=== PATIENT | male | born 1940 | race Caucasian/White ===

== ENCOUNTER → 2019-04-26 | Outpatient (CLI) | payer MEDICARE, SELFPAY ==
--- NOTE | 2019-04-26 14:32 | CT_ITS ---
We are attempting to reach an attending provider to discuss findings. An addendum with communication details will be sent when the communication is complete. STUDY: CTA CHEST REASON FOR EXAM: Male, 79 years old. PAIN LEFT ARM, COUGH X2 DAYS RADIATION DOSAGE (If Supplied By Facility): CTDIvol = ( 10.72 ) mGy, DLP = ( 384.05 ) mGycm TECHNIQUE: The examination was performed with the intravenous administration of 100CC ISOVUE 370. Post-processing of the angiographic images was performed, with multiplanar reformation and 3D reconstruction. Individualized dose optimization techniques were used for this CT. COMPARISON: None. FINDINGS: Normal enhancement of the main pulmonary artery and right and left pulmonary arteries. Normal enhancement of the bilateral peripheral pulmonary arteries. There is no demonstrated pulmonary embolism. There is atherosclerotic calcification of the aortic arch with tortuosity. There is no demonstrated aortic dissection. There is mild cardiac enlargement. There are multiple small and reactive AP window lymph nodes. This measures up to 1.2 cm. There is a right side precarinal lymph node measuring 1.0 cm. There is calcification in the left hilum. There are patchy left upper lobe infiltrates groundglass opacities. There is a small focus of consolidation in the lingula. There is consolidation in the left lower lobe. There is focal consolidation in the right lung base. There is thickening of the adjacent bronchial structures. Normal pleura. Normal chest wall structures. There are degenerative changes of thoracic spine. There is a hiatal hernia demonstrated measuring 1.[address]/CTA Chest W/WO Contrast IMPRESSION: No demonstrated pulmonary embolism or arterial dissection. Multifocal pneumonia. Reactive-appearing lymphadenopathy. Given the peribronchial inflammatory change and some areas of inflammatory plugging cannot exclude aspiration. Electronically Signed: Ally Munguia MD at 17:03 EST Tel , Service support ,
== END | disposition home or self-care (01) ==
LOC: CT 14:28
PROVIDERS: PCP Internal Medicine; Referring Provider Nurse Practitioner; Visit Provider Nurse Practitioner
DX: R79.1 Abnormal coagulation profile (principal); R05 Cough
CPT/HCPCS: 71046; 71275; Q9967

== ENCOUNTER → 2019-04-26 | Outpatient (CLI) | payer MEDICARE, SELFPAY ==
--- NOTE | 2019-04-26 13:05 | RAD_ITS ---
STUDY: X-RAY CHEST REASON FOR EXAM: Male, 79 years old. COUGH X 3 DAYS TECHNIQUE: PA and lateral views of the chest. COMPARISON: None. FINDINGS: There are patchy opacities in the right midlung zone and in the left lower lobe. There is no demonstrated pleural abnormality. Normal size heart. Normal mediastinum and kailey. Normal visualized pulmonary arteries. Normal visualized aortic arch and descending thoracic aorta. There are diffuse degenerative changes of the visualized thoracic spine. Normal visualized ribs, clavicles, and shoulders. There is no demonstrated abnormality of the visualized soft tissue structures of the upper abdomen. RAD/Chest PA and Lateral IMPRESSION: Findings suspicious for left mid lung zone and left lower lobe infiltrates suspicious for pneumonia. Electronically Signed: Ally Munguia MD at 14:43 EST Tel , Service support ,
== END | disposition home or self-care (01) ==
LOC: HPRAD 13:01
PROVIDERS: PCP Internal Medicine; Referring Provider Nurse Practitioner; Visit Provider Nurse Practitioner
DX: R05 Cough (principal)
CPT/HCPCS: 71046

== ENCOUNTER → 2019-04-26 | Outpatient (CLI) | payer MEDICARE, SELFPAY ==
[2019-04-26 13:18] LABS: CPK Total, Creatine Kinase 54 U/L (39-308)
[2019-04-26 13:36] LABS: BNP,B-Type NATRIURETIC PEPTIDE 8.9 pg/mL (0-100)
[2019-04-26 13:46] LABS: D-Dimer Quantitative (DVT/PE) 1.21 FEU/ug/m (0.27-0.49)
[2019-04-26 14:56] LABS: CREATININE FINGERSTICK 0.7 mg/dL (0.70-1.30); EGFR FINGERSTICK > 60.0000 mL/min (>60)
== END | disposition home or self-care (01) ==
PROVIDERS: PCP Internal Medicine; Referring Provider Nurse Practitioner; Visit Provider Nurse Practitioner
DX: M79.602 Pain in left arm (principal); R05 Cough
CPT/HCPCS: 82550; 83880; 84484; 85379

== ENCOUNTER 2019-05-19 13:41 | Outpatient (RCR) | payer MEDICARE, SELFPAY ==
--- NOTE | 2019-05-20 10:06 | HP.PTEVAL_ITS ---
Patient's Visit Information BOBY VAN is a 79 year old M referred to Physical Therapy by Lou Bales DO with a diagnosis of L lateral epidcondylitis. Date of Evaluation: 05/19/19 Physical Therapist: Wilfrido Malave DPT - Visit Plan Frequency: 1x/Week Duration: 4 Weeks Plan: I gave patient some stretching, DFM and eccentric exercises for HEP. PT. desires to trial on his own to see if he can self manage. He is to come back in if his symptoms start to come back. I educated him on activity management and use of bracing as needed. I aksed for a few visits in case his symptoms were to come back, we would be able to address as needed. - Subjective Findings: Pt. is here today for his initial evaluation with diagnosis of L lateral epicondylitis. Pt. reports no mech of injury, but has been having pain for ~1 month now. Pt. reports using many modalities to attempt to reduce symptoms including heat, ice, injection, bracing, analgesic creams, but ultimately he has started to CBD oil (roll on) and reports this has really helped. Pt. reports minimal pain 1/10 currently. He is R hand dominant. 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 Pt. denies N/T, no shoulder pain, no radiating pain. Pt. has most of his pain at is L lateral elbow, greatest wtih lifting, holding objects. He reports he has resulted to avoiding use of his L arm. Pt. is having some trouble sleeping, but has also improved. Pt. reports he was unsure if was even going to come, due to feeling better. Pt. is hopeful to reduce symptoms in order to get back to all recreational activities without limitations. - Pain L lateral elbow Pain Intensity (Out of 10): 1 Pain Intensity Range: 0, 4 - Objective POSTURE: Pt. has good posture in stance and sitting. Normal elbow positoning. PALPATION: Pt. was tender to palpation of L wrist/finger extensor group, and lateral epicondyl. No pain else where. NEURO: Normal throughout BUEs. ROM: PT has tightness with terminal elbow extension, tight wrist extensors, tight wrist flexors. 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 Pt. has 5/5 wrist and elbow strenght on R side, 5/5 throughout LUE, except wrist extension 5-/5 mild increase NW. - Special Tests L Elbow Flexion Test - Cubital Tunnel: Negative L Elbow Tinels - Ulnar n.: Positive L Elbow Valgus Stress Test - MCL Instability: Negative L Elbow Varus Stress Stest - MCL Instability: Negative L Elbow Lat Epiconylitis - as named: Positive - Goals Goal 1:: LTG: Pt. to be I with HEP. Goal Time Frame: 4-6 Weeks Goal 2:: STG: Pt. to have no pain with lifting and gripping household objects Goal Time Frame: 2-4 Weeks Goal 3:: STG: Pt. to sleep throughout the night without increase in symptoms. Goal Time Frame: 2-4 Weeks Goal 4:: LTG: Pt. to complete all ADLs without increase in symptoms. Goal Time Frame: 4-6 Weeks Goal 5:: LTG: pt. to have increased wrist extensors by 1/2 grade Goal Time Frame: 4-6 Weeks - Rehabilitation Potential Physical Therapy Diagnosis: Pt. has signs and symptoms consistent with L lateral epidcondylitis. Pt. is doing better with bracing and use of CBD oil. Pt. does have some soreness and tightness of his L lateral elbow. I gave him some exercises to use to work on flexibility and some eccentric strengthening. Pt. plans to work on his own for a 1-2 weeks to see if he can self progress/manage. Pt. to follow up with PT if unable to do so Rehabilitation Potential: Excellent - Anticipated Interventions Patient/Client Instruction: Educate patient on: Condition, Plan of Care, Risk Factors, Benefits of Fitness Program For the Purpose of:: To improve decision making, To facilitate caregiver knowledge, To improve self management, To prevent re-injury, To improve ability to perform tasks related to life management, To improve tolerance to ADL's Therapeutic Exercise to Include: Strength training, Power training, Postural training, Flexibilty training For the Purpose of:: To decrease pain, To decrease swelling/inflammation, To increase ROM Manual Therapy Techniques to Include: Mobilization, Functional dry needling, Soft tissue mobilization For the Purpose of:: To decrease pain, To decrease swelling/inflammation, To improve nutrient delivery to tissue Ultrasound (thermal/non thermal): Yes For the Purpose of:: To improve nutrient delivery to tissue, To increase oxygenation perfusion, To improve muscle performance and motor function Thank you for the opportunity to evaluate your patient. For Medicare and Medicare HMO plans, please review the plan of care and approve it. It will need to be FAXED BACK to us at [phone] for Medicare purposes. For Medicare only, by signing this I certify the plan of care. Please let me know if there are questions or concerns regarding this plan of care. Physician Signature: Date:
--- NOTE | 2019-10-27 07:34 | HP.PTDCNRP_ITS ---
BOBY VAN was seen in my office for initial evaluation on 05/19/19. The following Plan of Care was established for this patient: Initial Frequency: 1x/Week Initial Duration: 4 Weeks Patient/Client Instruction: Educate patient on: Condition, Plan of Care, Risk Factors, Benefits of Fitness Program For the Purpose of:: To improve decision making, To facilitate caregiver knowledge, To improve self management, To prevent re-injury, To improve ability to perform tasks related to life management, To improve tolerance to ADL's Therapeutic Exercise to Include: Strength training, Power training, Postural training, Flexibilty training For the Purpose of:: To decrease pain, To decrease swelling/inflammation, To increase ROM Manual Therapy Techniques to Include: Mobilization, Functional dry needling, So ft tissue mobilization For the Purpose of:: To decrease pain, To decrease swelling/inflammation, To improve nutrient delivery to tissue Ultrasound (thermal/non thermal): Yes For the Purpose of:: To improve nutrient delivery to tissue, To increase oxygenation perfusion, To improve muscle performance and motor function This patient was last seen in our office 05/19/19. Pertinent comments regarding their Physical therapy will appear below: Pt. was seen for his initial evaluation. He came for his initial evaluation and has not been seen since. Pt. will be DC from PT at this point in time. At this point I will be discontinuing this patient from physical therapy. I would be happy to see this patient again in the future if found appropriate by the physician. Thank you! LETICIA MinayaT
== END 2019-05-19 19:00 | disposition home or self-care (01) ==
LOC: PT 13:41
PROVIDERS: PCP Internal Medicine; Referring Provider Internal Medicine; Visit Provider Internal Medicine
DX: M77.12 Lateral epicondylitis, left elbow (principal)
CPT/HCPCS: 97110; 97161

== ENCOUNTER 2020-04-19 14:13 | Outpatient (RCR) | payer MEDICARE, SELFPAY ==
[2014-05-05 14:40] VITALS: BMI 24.3
== END 2020-04-19 23:59 ==
LOC: IMMUN 14:13
PROVIDERS: PCP Internal Medicine; Visit Provider Family Medicine
DX: Z23 Encounter for immunization (principal)
CPT/HCPCS: 0011A; 0012A; 91301

== ENCOUNTER 2021-05-31 10:50 | Outpatient (CLI) | payer MEDICARE, SELFPAY ==
--- NOTE | 2021-05-31 10:51 | MRI_ITS ---
STUDY: MRI CERVICAL SPINE WITHOUT CONTRAST REASON FOR EXAM: Male, 81 years old. Pain TECHNIQUE: Standardized fat and water weighted pulse sequences were obtained in the sagittal and axial planes. COMPARISON: None FINDINGS: Normal foramen magnum and brainstem-cervical cord junction. Normal craniovertebral junction. Normal anterior atlantoaxial articulation. Normal odontoid process. Mild cervical kyphosis. Normal vertebral bodies and posterior osseous elements. C2-3: Normal endplates. Normal disc height, signal and morphology. Normal central canal and intervertebral neural foramina. 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 Small posterior marginal spurs. Normal central canal and intervertebral neural foramina. C4-5: Normal endplates. Mild disc space height narrowing. Mild degenerative anterolisthesis of C4 on C5. Normal central canal. Moderate stenosis of the intervertebral neural foramina, right greater than left. C5-6: Normal endplates. Mild disc space height narrowing. Prominent anterior marginal spurs. Minimal posterior marginal spurs. Normal central canal and left intervertebral neural foramen. Moderately pronounced stenosis of the right intervertebral neural foramen due to prominent osteophyte. C6-7: Normal endplates. Mild disc space height narrowing. Smaller anterior and posterior marginal spurs. Normal central canal and right intervertebral neural foramen. Mild stenosis of the left intervertebral neural foramen. C7-T1: Normal endplates. Normal disc height. Minimal degenerative anterolisthesis of C7 on T1. Normal central canal and intervertebral neural foramina. T1-T2: (Sagittal only). Normal endplates. Normal disc height. Normal central canal and intervertebral neural foramina. T2-T3: (Sagittal only). Round lower T2 benign vertebral body hemangioma. Normal endplates. Mild disc space height narrowing. No central canal and intervertebral neural foramina. T3-T4, T4-T5 and T5-T6: (Sagittal only). Normal endplates. Normal disc height and morphology. Normal central canal and intervertebral neural foramina. Normal cervical cord. Normal upper thoracic spinal cord. Normal included portions of the brainstem and cerebellum. Normal visualized soft tissue structures. MRI/Spine Cervical (Routine) IMPRESSION: 1. No MRI evidence of cervical extruded disc fragment. 2. 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 3. Mild degenerative anterolisthesis of C4 on C5 and moderate stenosis of the intervertebral neural foramina, right greater than left. 4. Moderately pronounced stenosis of the right C5-C6 intervertebral neural foramen due to osteophyte arising from the left uncovertebral joint. 5. Mild stenosis of the left C6-C7 intervertebral neural foramen. 6. Minimal degenerative anterolisthesis of C7 on T1. 7. Lower T2 benign vertebral body hemangioma. Electronically Signed: Huber Lopez MD at 11:07 EST ,
== END 2021-05-31 23:59 | disposition home or self-care (01) ==
LOC: MRI 10:51
PROVIDERS: PCP Internal Medicine; Referring Provider Orthopaedic Surgery; Visit Provider Orthopaedic Surgery
DX: M54.12 Radiculopathy, cervical region (principal)
CPT/HCPCS: 72141

== ENCOUNTER 2021-09-12 08:38 | Emergency (ER) | payer MEDICARE, SELFPAY ==
[2021-09-12 08:39] VITALS: BP 177/88; PULSE 78; RESP 16; TEMP 36.6; O2SAT 96; BMI 24.3
--- NOTE | 2021-09-12 08:54 | EDS_ITS ---
HPI History of Present Illness Chief Complaint: Syncope Detail of Chief Complaint: Syncope and blunt head trauma Informant: patient and spouse/S.O. Onset/Context/Timing Onset: Days (Sickle episode and blunt head trauma occurred on Thursday while eating a sandwich) Context: Sudden Onset Timing: Intermittent and Lasts (30 seconds per ) Quality: Patient fell over Location: Eating a sandwich at home Current Severity: Gone Maximum Severity: Severe Worsened by: Nothing Relieved by: Nothing Associated Symptoms Associated Symptoms: No prodrome Narrative Narrative: Patient is a 81-year-old male with history of asthma who was sent in because of syncopal sewed and hitting his head. He states he was sitting eating a sandwich. He passed out. He had no prodrome. He denies all symptoms. He apparently hit the left side of his head on a wooden chair. states he was out for 30 seconds. There was no seizure activity. There was no postictal s arizmendi. There was no incontinence. He hurts where he has evidence of a small contusion. He denies headache. He denies visual, ocular auditory symptoms. He denies neck pain. He denies paresthesia, anesthesia or motor weakness. He denies cardiac or respiratory symptoms. He denies black or maroon-colored stool. He is not on an anticoagulant. Prior similar symptoms: No Recent Illness/Hospitalization: No [facility] Medical History (Updated 09/12/21 @ 10:[address] Pablo Patrick MD) Asthma Cervical radiculopathy Cervical strain Cubital tunnel syndrome on left Home Medications albuterol sulfate 90 mcg/actuation aerosol inhaler (Ventolin HFA) 1 - 2 puff inhalation Q4H PRN PRN Wheezing ##1 05/02/14 [Rx Last Taken Unknown] montelukast 10 mg tablet (Singulair) 10 mg PO DAILY 05/02/14 [History Last Taken Unknown] fluticasone 500 mcg-salmeterol 50 mcg/dose blistr powdr for inhalation (Advair Diskus) 1 puff inhalation BID 05/05/14 [History Last Taken Unknown] Allergy/AdvReac Type Severity Reaction Status Date / Time aspirin Allergy Shortness Verified 09/12/21 08:42 of breath ibuprofen Allergy Other Verified 09/12/21 08:42 Family History Sister Cancer Social History (Updated 09/12/21 @ 08:[address] Pablo Patrick MD) household members: spouse Smoking Status: Never smoker alcohol intake: never substance use type: does not use ROS ROS ED Constitutional Constitutional ED: Denies chills, fever(s), subjective, sweats or weight loss Eyes Eyes: Denies blurry vision, change in vision or diplopia ENT ENT ED: Reports other Details: He has a hearing aid on the left. He denies decreased hearing from baseline. He denies tinnitus. ; Denies ear pain, rhinorrhea or sore throat Cardiovascular Cardiovascular: Denies chest pain, palpitations or racing heartbeat Respiratory/Chest Respiratory/Chest: Denies cough, dyspnea or dyspnea on exertion Gastrointestinal Gastrointestinal: Denies abdominal pain, diarrhea, melena, nausea or vomiting Genitourinary Genitourinary ED: Denies dysuria or hematuria Musculoskeletal Musculoskeletal: Denies arthralgias, back pain, myalgias or neck pain Integumentary Reports other Details: Small bruise left frontal area. ; Denies abscess, Abrasions or rash Neurologic Neurologic: Denies headache(s), paresthesias or weakness EXAM Physical Exam Narrative Exam Narrative: Patient appears in no distress. He is sitting comfortably on the examination bed. Const Vital Signs: 09/12/21 08:39 09/12/21 09:01 Temperature 98 F Temperature Source Temporal Pulse Rate 78 Respiratory Rate 16 Respiratory Effort Normal Non-Labored Respiratory Pattern Normal Blood Pressure 177/88 H Blood Pressure Mean 117 Pulse Ox 96 Oxygen Delivery Method Room Air Positive well nourished and well developed General Appearance ED: well developed and NAD; Negative for cyanotic, diaphoretic or pallor HEENT Reports moist mucous membranes HEENT Narrative: Patient has a small bruise left frontal area. There is no palp depression. There is no clinical findings of basal skull fracture. There is no septal deviation hematoma noted. There is no evidence of dental trauma. trauma and tenderness Eyes PERRL and EOMs intact bilaterally Eyes Narrative: There is no subconjunctival hemorrhage noted. There is no APD. Patient has peripheral cataracts. Cup-to-disc ratio normal. There is no papilledema. General Eye ED: Negative for pale conjunctiva or scleral icterus Neck no lymphadenopathy, supple and no JVD Neck Narrative: There is no midline cervical tenderness. He has full active range of motion. C-spine was cleared per Nexus criteria. Chest Wall inspection of chest normal and palpation of chest normal Resp normal respiratory effort and clear to auscultation bilaterally Cardio regular rate, regular rhythm, S1 normal heart sound, S2 normal heart sound and no murmurs GI normal to inspection, nondistended, normoactive bowel sounds, non-tender and non-distended GI Narrative: There is no abdominal bruit. There is no palpable pulsatile mass. Back/Spine no CVA tenderness Cervical Spine: Negative for cervical spine tenderness Extremity normal to inspection General Extremety ED: Negative for edema or tenderness General Extremity: Negative for edema Neuro oriented x3, CN's II-XII intact bilaterally and no sensory deficits noted Neuro Narrative: GCS is 15. There is no clonus or Babinski sign. DTRs are 2+ at the bicep, tricep, patella and ankle. Reflexes are symmetric. Sensorium / Orientation: alert Motor Exam: strength 5/5 throughout Psych mental status grossly normal Psych Narrative: Thought content is normal. Skin General Skin Exam: Negative for jaundice or pallor Rashes: No rashes noted Trauma: Negative for abrasion MDM MDM MDM Narrative Medical decision making narrative: Since patient had syncopal spell with no prodrome will obtain EKG and place a monitor to determine if there is any ectopy or any findings to suggest a preexcitation syndrome. Also to evaluate for QT prolongation. Doubt cardiac ischemia and doubt pulmonary embolus. CBC was obtained to assess H&H and basic metabolic panel to assess electrolytes as well as BUN to creatinine ratio.. Per the [place] CT head rule imaging of the head does not indicated. Per the Nexus study imaging the neck is not indicated. Lab Data Attestation: I reviewed the patient's lab results. Lab results narrative: CBC and basic metabolic panel are essentially unremarkable. Glucose is 141. Troponin is normal with event occurring greater than 72 hours ago. 2-hour troponin was not obtained nor is it indicated. Labs: Laboratory Results - last 24 hr 09/12/21 09/12/21 08:57 08:57 WBC 9.9 RBC 5.18 Hgb 14.8 Hct 45.9 MCV 88.6 MCH 28.6 MCHC 32.2 RDW Std Deviation 42.5 RDW Coeff of Heriberto 13.1 Plt Count 310 MPV 9.6 Immature Gran % (Auto) 0.300 Neut % (Auto) 75.6 H Lymph % (Auto) 12.3 L Kimball % (Auto) 8.9 Eos % (Auto) 2.4 Baso % (Auto) 0.5 Absolute Neuts (auto) 7.5 Absolute Lymphs (auto) 1.22 Nucleated RBC % 0 Sodium 138 Potassium 3.5 Chloride 106 Carbon Dioxide 24.0 Anion Gap 8 BUN 11 Creatinine 0.89 Estim Creat Clear Calc 60.84 Est GFR (MDRD) Af Amer 104 Est GFR (MDRD) Non-Af 86 BUN/Creatinine Ratio 12.3 Glucose 141 H Calcium 9.1 Troponin I High Sens 8 EKG Initial EKG: Attestation: I personally reviewed and interpreted this EKG as follows: Interpretation: Sinus Rhythm (Ventricular rate is 73. EKG is normal. [place] interval is 158 ms. QRS duration 82 ms. QT T duration 3 and 68 ms. Jenkins is normal. The EKG is unchanged from May 05, 2014.) Treatment and Re-Evaluation Narrative: Patient was reassessed at 1011. He was informed of the results. He was informed to follow-up with Dr. Darryn Bowens and Dr. Day his doctor. Discharge Plan Triage Chief Complaint: Syncope ED Provider: Pablo Patrick Dx/Rx/DC Orders Clinical Impression: Syncope and collapse, Contusion of left temporofrontal scalp, BP (high blood pressure) Instructions: ED Scalp Contusion, ED Hypertension, To Be Confirmed, ED Fainting, Uncertain Cause Prescriptions: No Action montelukast [Singulair] 10 MG tablet 10 mg PO DAILY Label Comments: lungs albuterol sulfate [Ventolin HFA] 1 INHALER inhaler 1 - 2 puff inhalation Q4H PRN PRN (Reason: Wheezing) Qty: 1 0RF Label Comments: lungs, shortness of breath fluticasone propion-salmeterol [Advair Diskus] 1 PUFF inhaler 1 puff inhalation BID Label Comments: lungs Primary Care Provider: Lou Bales Referrals: Darryn Bowens MD [STAFF PHYSICIAN] - 3-5 Days Lou Bales DO [Primary Care Provider] - 5-7 Days Activity Restrictions/Additional Instructions: 1. Your blood pressure was elevated in the department. Since you do not have a history of high blood pressure and have no symptoms or findings you will need to follow-up with Dr. Day for repeat blood pressure assessment. 2. Contact Dr. Bowens's office for evaluation of your syncope. Disposition Disposition: Home, Self Care
--- NOTE | 2021-09-12 08:54 | EKG12_ITS ---
Test Reason : SYNCOPE Blood Pressure : / mmHG Vent. Rate : 073 BPM Atrial Rate : 073 BPM P-R Int : 158 ms QRS Dur : 082 ms QT Int : 368 ms P-R-T Axes : 071 040 065 degrees QTc Int : 405 ms Normal sinus rhythm Normal ECG Confirmed by ALEC MUNOZ, AGNIESZKA ([id number]), editor dictionary LEONARDO REGALADO ([id number]) on 09/13/2021 11:17:16 AM Referred By: YE Confirmed By:AGNIESZKA MICHAEL MD
[2021-09-12 09:08] LABS: Absolute Lymphocyte Count 1.22 X10^3/uL (0.83-4.51); Absolute Neutrophil Count 7.5 X10^3/uL (2.0-7.7); Basophil# 0.05 X10^3/uL; Basophil% 0.5 % (0-1); Eosinophil# 0.24 X10^3/uL; Eosinophils% 2.4 % (0-5); Hematocrit 45.9 % (40-54); Hemoglobin 14.8 g/dL (13.0-16.5); Lymphocyte # 1.22 X10^3/ul (0.83-4.51); Lymphocyte % 12.3 % (19-41); Mean Corp Hgb Conc 32.2 g/dL (32-36); Mean Corpuscular Hgb 28.6 pg (27.0-32.0); Mean Corpuscular Volume 88.6 fL (80-94); Mean Platelet Vol. 9.6 fl (6.2-12.0); Monocyte# 0.88 X10^3/uL; Monocyte% 8.9 % (0-10); NRBC Flagged by Analyzer 0 % (0-5); Neutrophil # 7.52 X10^3/uL (2.7-7.7); Neutrophil % 75.6 % (47-70); Platelet Count 310 K/mm3 (150-450); RBC Distribution Width CV 13.1 % (11.6-14.6); RBC Distribution Width SD 42.5 fl (35.1-43.9); Red Blood Count 5.18 M/mm3 (4.6-6.2); White Blood Count 9.9 K/mm3 (4.4-11.0)
[2021-09-12 09:22] LABS: Anion Gap 8 (5-15); BUN 11 mg/dL (7-18); BUN/Creat Ratio 12.3 RATIO (10-20); Calcium,Total 9.1 mg/dL (8.5-10.1); Chloride 106 mmol/L (98-107); Creatinine, Serum 0.89 mg/dL (0.70-1.30); EST Glomerular Filtration Rate 86 mL/min (>60); Est Glom Filt Rate - Afr Amer 104 mL/min (>60); Estimated Creatinine Clearance 60.84 ml/min; Glucose 141 mg/dL (74-106); Potassium 3.5 mmol/L (3.5-5.1); Sodium Level 138 mmol/L (136-145); Troponin-I HS 8 pg/mL (3.0-78.0)
== END 2021-09-12 10:35 | disposition home or self-care (01) ==
PROVIDERS: Emergency Provider Emergency Medicine; PCP Internal Medicine; Visit Provider Emergency Medicine
DX: R55 Syncope and collapse (principal); S00.03XA Contusion of scalp, initial encounter; R03.0 Elevated blood-pressure reading, without diagnosis of hypertension; W19.XXXA Unspecified fall, initial encounter
CPT/HCPCS: 80048; 84484; 85025; 93005; 99284; A4216

== ENCOUNTER → 2021-09-13 | Outpatient (CLI) | payer MEDICARE, SELFPAY ==
--- NOTE | 2021-09-13 12:48 | CT_ITS ---
STUDY: CT BRAIN WITHOUT CONTRAST REASON FOR EXAM: Male, 81 years old. HEAD INJURY RADIATION DOSAGE (If Supplied By Facility): CTDIvol = ( 47.06 ) mGy, DLP = ( 890.33 ) mGycm TECHNIQUE: Transaxial CT imaging of the brain was performed without administration of intravenous contrast material. Individualized dose optimization techniques were used for this CT. COMPARISON: No relevant priors. FINDINGS: There is no intra-/extra-axial fluid collection, mass effect, or midline shift. 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 The hernandez/white matter junction is preserved. Hypoattenuation of periventricular and subcortical white matter suggestive of chronic small vessel ischemic disease. Mild diffuse parenchymal volume loss is noted. There is vascular calcification. The basal cisterns are patent. The calvarium is intact. Evidence of pansinusitis is noted. Opacification of the bilateral mastoid air cells is seen, more severe on the right. There is also near complete opacification of the right middle air cavity. CT/Brain/Head without Contrast IMPRESSION: No acute intracranial injury. Chronic nonemergent findings as above. Electronically Signed: Chad Pacheco MD at 13:50 EDT ,
== END | disposition home or self-care (01) ==
LOC: CT 12:47
PROVIDERS: PCP Internal Medicine; Referring Provider Internal Medicine; Visit Provider Internal Medicine
DX: S09.90XA Unspecified injury of head, initial encounter (principal)
CPT/HCPCS: 70450

== ENCOUNTER → 2021-09-24 | Outpatient (CLI) | payer MEDICARE, SELFPAY | END | disposition home or self-care (01) | LOC: CVS 10:30 | PROVIDERS: PCP Internal Medicine; Referring Provider Internal Medicine; Visit Provider Internal Medicine | DX: R55 Syncope and collapse (principal) | CPT/HCPCS: 93225; 93226 ==

== ENCOUNTER 2021-10-10 07:53 | Outpatient (CLI) | payer MEDICARE, SELFPAY ==
--- NOTE | 2021-10-10 07:58 | ECHOD_ITS ---
Reason For Study: CVA Procedure This was a 2D Doppler, Color Flow transthoracic echocardiogram. Exam performed in department. Left Ventricle Normal LV size. Left ventricular systolic function is normal. The estimated ejection fraction is 60 %. No regional wall motion abnormalities noted. Right Ventricle Normal RV size. Normal systolic function. Atria Normal left atrium. Normal right atrium. Bubble contrast study negative for right to left interatrial shunt. Mitral Valve Normal mitral valve. Tricuspid Valve Normal tricuspid valve. Aortic Valve Normal aortic valve. Trisinus/trileaflet aortic valve. Pulmonic Valve Normal pulmonic valve. Great Vessels Normal aortic root. The pulmonary artery is normal size. Normal inferior vena cava. Pericardium/Pleural No pericardial effusion. Medication 22 gauge I.V. with prn adaptor inserted into right arm. Performed a rapid injection of agitated mix of 9 cc saline and 1cc air to assess for atrial septal defect. MMode/2D Measurements & Calculations LVIDd: 3.1 cm IVSd: 0.93 cm Ao root diam: 2.9 cm LVIDs: 1.7 cm LVPWd: 1.0 cm RVDd: 2.5 cm FS: 47.5 % LAV(MOD-bp): 40.6 ml LVAd ap4: 20.3 cm2 SV(MOD-sp4): 29.8 ml LAV(MOD-bp) Indexed: 21.6 ml/m2 LVLd ap4: 7.7 cm LAV(MOD-sp2): 56.7 ml EDV(MOD-sp4): 45.3 ml LAV(MOD-sp4): 26.1 ml EDV(sp4-el): 45.5 ml LVAs ap4: 10.6 cm2 LVLs ap4: 6.6 cm ESV(MOD-sp4): 15.5 ml ESV(sp4-el): 14.3 ml EF(MOD-sp4): 65.8 % EF(sp4-el): 68.5 % SV(sp4-el): 31.1 ml LA A4 area: 12.9 cm2 LA dimension(2D): 3.7 cm RA A4 area: 12.7 cm2 Time Measurements MV dec time: 0.24 sec Doppler Measurements & Calculations MV E max shilo: 71.1 cm/sec Lat Peak E' Shilo: 9.2 cm/sec Med Peak E' Shilo: 6.3 cm/sec MV A max shilo: 80.8 cm/sec E/E' lat: 7.7 E/E' med: 11.4 MV E/A: 0.88 MV V2 max: 85.5 cm/sec MV dec slope: 305.8 cm/sec2 Ao V2 max: 182.8 cm/sec MV max P.9 mmHg Ao max P.4 mmHg MV V2 mean: 49.8 cm/sec Ao V2 mean: 125.7 cm/sec MV mean P.1 mmHg Ao mean P.2 mmHg MV V2 VTI: 32.5 cm Ao V2 VTI: 44.2 cm LV V1 max: 113.3 cm/sec PA V2 max: 102.9 cm/sec LV V1 max P.2 mmHg LV V1 mean P.1 mmHg LV V1 mean: 83.8 cm/sec LV V1 VTI: 28.3 cm ECHO/Echo Complete Interpretation Summary Normal LV size. Left ventricular systolic function is normal. The estimated ejection fraction is 60 %. Bubble contrast study negative for right to left interatrial shunt. Ordering Physician: Lou Bales Referring Physician: Lou Bales Performed By: Lucy Wolf RCS
== END 2021-10-10 23:59 | disposition home or self-care (01) ==
LOC: CVS 07:54
PROVIDERS: PCP Internal Medicine; Referring Provider Internal Medicine; Visit Provider Internal Medicine
DX: I63.9 Cerebral infarction, unspecified (principal); Z98.2 Presence of cerebrospinal fluid drainage device
CPT/HCPCS: 93306

== ENCOUNTER → 2021-10-28 | Outpatient (CLI) | payer MEDICARE, SELFPAY ==
--- NOTE | 2021-10-28 10:06 | CDU_ITS ---
Reason For Study: CVA Rt. Velocities/BP Lt. Velocities/BP Prox CCA 95.6/16.0 cm/sec. Prox CCA 114.6/24.9 cm/sec. Mid CCA 83.8/14.7 cm/sec. Mid CCA 82.7/16.3 cm/sec. Dist CCA 73.4/10.8 cm/sec. Dist CCA 58.1/15.1 cm/sec. Prox ICA 80.2/11.4 cm/sec. Prox ICA 143.0/33.4 cm/sec. Mid ICA 80.2/20.0 cm/sec. Mid ICA 144.8/26.1 cm/sec. Dist ICA 87.6/21.2 cm/sec. Dist ICA 78.1/19.8 cm/sec. Rt. ICA/CCA = 1.0. Lt. ICA/CCA = 1.8. Prox ECA 126.6/11.5 cm/sec. Prox ECA 169.6/11.6 cm/sec. Rt. Vert. 66.7/12.7 cm/sec. Lt. Vert. 36.2/6.9 cm/sec. Right Extracranial There is homogeneous, smooth atherosclerotic plaque noted in the right common carotid artery. There is heterogeneous, irregular atherosclerotic plaque noted in the right internal carotid artery. There is heterogeneous, irregular atherosclerotic plaque noted in the right external carotid artery. Antegrade flow is noted in the right vertebral artery. Left Extracranial There is homogeneous, smooth atherosclerotic plaque noted in the left common carotid artery. There is heterogeneous, irregular atherosclerotic plaque noted in the left internal carotid artery. There is homogeneous, smooth atherosclerotic plaque noted in the left external carotid artery. Antegrade flow is noted in the left vertebral artery. Procedure Carotid Duplex [id number]. This is a Carotid Duplex examination using B-mode, color flow and specral Doppler. The exam was diagnostic. Exam performed in department. VL/Carotid Duplex Ultrasound Interpretation Summary Mild (<50%) stenosis right extracranial internal carotid. Moderate (50-69%) stenosis left extracranial internal carotid. The Right vertebral is patent and antegrade. The Left vertebral is patent and antegrade. Ordering Physician: Lou Bales Performed By: Obi Mayers RVT
== END | disposition home or self-care (01) ==
LOC: CVS 09:52
PROVIDERS: PCP Internal Medicine; Referring Provider Internal Medicine; Visit Provider Internal Medicine
DX: I65.23 Occlusion and stenosis of bilateral carotid arteries (principal); I63.9 Cerebral infarction, unspecified
CPT/HCPCS: 93880

== ENCOUNTER → 2022-01-01 | Outpatient (CLI) | payer MEDICARE, SELFPAY ==
--- NOTE | 2022-01-01 12:17 | MRI_ITS ---
EXAM: MR HEAD WITHOUT INTRAVENOUS CONTRAST CLINICAL INDICATION: CVA TECHNIQUE: Multiplanar and multisequence MR images of the brain were obtained without intravenous contrast. This report was created using [employer] report generation technology. COMPARISON: CT 09/13/2021 FINDINGS: BRAIN AND EXTRA-AXIAL SPACES: Increased FLAIR regions in the brain may signify early microvascular ischemic changes, a demyelinating process, vasculitis, or sequela related to migraines. 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 No intra- or extra-axial hemorrhage. No intracranial mass or mass effect. Posterior fossa structures are unremarkable. Ventricles are appropriate for age. No hydrocephalus. Basal cisterns are patent. SELLA: Unremarkable. Normal sella turcica, pituitary gland, infundibular stalk, optic chiasm and hypothalamus. AUDITORY SYSTEM: Unremarkable. The internal auditory canals are patent. BONES/JOINTS: Unremarkable. No discrete lytic or blastic abnormalities. SINUSES: There is sinus disease. MASTOID AIR CELLS: There is mastoid sinus disease. ORBITS: Unremarkable as visualized. Both globes, extraocular muscles, optic nerves and retrobulbar fat appear unremarkable. VASCULATURE: Unremarkable as visualized. Normal flow voids in the major intracranial circulation. MRI/Brain without Contrast IMPRESSION: 1. There is sinus disease. 2. Mild chronic microvascular ischemic changes. Electronically Signed: Wilmer Quiroga MD at 15:46 EDT ,
== END | disposition home or self-care (01) ==
PROVIDERS: PCP Internal Medicine; Visit Provider Internal Medicine
DX: I63.9 Cerebral infarction, unspecified (principal)
CPT/HCPCS: 70551

== ENCOUNTER → 2022-03-25 | Outpatient (CLI) | payer MEDICARE, SELFPAY ==
--- NOTE | 2022-03-25 11:11 | RAD_ITS ---
STUDY: X-RAY CHEST REASON FOR EXAM: Male, 82 years old. Cough. TECHNIQUE: Frontal and lateral views of the chest. COMPARISON: May 05, 2014. FINDINGS: Mild hyperinflation. Patchy linear lingular scarring unchanged. There is no demonstrated pleural abnormality. Stable cardiomegaly with aortic tortuosity. Normal mediastinum and kailey. Normal visualized pulmonary arteries. Diffuse mild thoracic spondylosis unchanged. Normal visualized ribs, clavicles, and shoulders. There is no demonstrated abnormality of the visualized soft tissue structures of the upper abdomen. RAD/Chest PA and Lateral IMPRESSION: Stable cardiomegaly, mild hyperinflation and patchy linear lingular scarring. No acute or active cardiopulmonary disease. Electronically Signed: Abhay Golden, at 12:01 EST ,
== END | disposition home or self-care (01) ==
PROVIDERS: PCP Internal Medicine; Referring Provider Nurse Practitioner Family; Visit Provider Nurse Practitioner Family
DX: R05.9 Cough, unspecified (principal)
CPT/HCPCS: 71046

== ENCOUNTER 2022-12-03 14:00 | Outpatient (RCR) | payer MEDICARE, SELFPAY ==
--- NOTE | 2022-11-14 14:41 | HP.PTEVAL ---
Patient's Visit Information Visit Information Visit Information: BOBY VAN is a 82 year old M referred to Physical Therapy by Dr. Lou Bales DO with a diagnosis of L arm tennis elbow. Date of Evaluation: 11/14/22 Physical Therapist: Kelton Villarreal, LETICIAT, OCS, CSCS Visit Plan Frequency: 3x /Week Duration: 2-4 Weeks Plan: 3x/week for 2-4 weeks for 1. ensure stretching wrist ext group, activity modifcaiton and bracing at home(pt to get wrist brace) 2.progress to ecc strength wrist ext 3. treat with nonthermal US to L lat epi and STM/ice massage/stretching Subjective Subjective: L arm tennis elbow. Hurt for two weeks in l lateral elbow, was OK prior, No reason for its return. Pain is 0-7/10 and wakes him up at night. Normally hurts at rest. doctor said tennis elbow, has brace from [facility] [employer]. wrapping elbow which helps a bit for last 24 hrs. Wakes him up at night in middle of night and has to change position and needs to stretch it. Spends day doing housework. They have cleaning girl but he does dishes. Not an outdoor worker. Hobbies: computer and TV. He is R handed. Not employed. No regular exercise. Pain Left elbow lateral.: Pain Intensity (Out of 10): 3 Pain Intensity Range: 0 and 7 Objective Objective: L brace on elbow and donned and doffed I. Tender L lat epicondyle elbow min to mod and into extensor group mildly. Neck AROM max limited to 24 ext, 65 rotation B without pain. scap aROM WFL shoulder and elbow and wrist AROM WFL and without pain. Strength L wrist extension 4 and painful, R not painfula nd 4 other wrist and elbow 4 B, shoulder 4- B. No pain. reflexes 1/3 bi and tri Sensation UE WNL to gross light touch. + L tennis elbow active contraction and passive wtretching tests. No other tenderness at elbow joint sadi. Balance/Special Test Scores Quick DASH Score: 15.9075 Goals Goal 1:: Sleep without waking at night due to pain Goal Time Frame: 4-6 Weeks Goal 2:: I management of pain with bracing, activity mod, and stretch, strength ex. Goal Time Frame: 4-6 Weeks Goal 3:: Pt feel painfree at rest and 3/10 at worst adn 75% improved overall. Goal Time Frame: 4-6 Weeks Goal 4:: qucikdash score 14 or less Goal Time Frame: 4-6 Weeks Rehabilitation Potential Physical Therapy Diagnosis: L arm lat epicondylitis Rehabilitation Potential: Good Anticipated Interventions Patient/Client Instruction: Educate patient on: Condition and Plan of Care For the Purpose of:: To decrease pain, To improve nutrient delivery to tissue, To improve muscle performance and motor function, To increase tolerance to activity/condition/position and To prevent re-injury Therapeutic Exercise to Include: Strength training, Flexibilty training, Passive ROM and Active ROM For the Purpose of:: To decrease pain, To improve nutrient delivery to tissue, To improve muscle performance and motor function, To increase tolerance to activity/condition/position and To improve ability of physical actions for home/community/work/leisure Manual Therapy Techniques to Include: Soft tissue mobilization For the Purpose of:: To decrease pain, To decrease swelling/inflammation, To increase ROM and To improve nutrient delivery to tissue Prosthetic, Protective Equipment: Braces Comment: wrist For the Purpose of:: To decrease pain and To decrease swelling/inflammation Cryotherapy (ice pack, ice massage): Yes Ultrasound (thermal/non thermal): Yes (nonthermal) For the Purpose of:: To decrease pain, To decrease swelling/inflammation and To improve nutrient delivery to tissue Text: Thank you for the opportunity to evaluate your patient. For Medicare and Medicare HMO plans, please review the plan of care and approve it. It will need to be FAXED BACK to us at [phone] for Medicare purposes. For Medicare only, by signing this I certify the plan of care. Please let me know if there are questions or concerns regarding this plan of care. Physician Signature: Date:
--- NOTE | 2022-12-03 14:42 | HP.PTREVAL ---
Re-Evaluation Intro: Dr. Lou Bales, DO, It has been my pleasure to treat BOBY VAN over the last 5 visits for L arm tennis elbow. Please see the progress note below for an update on the physical therapy plan of care! Subjective Subjective: Getting better. Less pain at night, able to sleep at night. Is Ok in morning. pain during day to 5/10 for short durations. Got brace and it helps. Objective Objective/Function: Less tender in R UE, brace appropriate. subjectively better. Plan Plan Plan: Appropriate to continue POC of US, strengtching massage and eccentric progression. Monitor neck ROm for possible effects here if progress stagnates. 3x/week for 2 more weeks. Balance/Gait/Functional tests Balance/Special Test Scores Quick DASH Score: 15.9075 Goals Goals Goal 1:: Sleep without waking at night due to pain Goal Time Frame: 4-6 Weeks Goal Progress: Progressing Goal 2:: I management of pain with bracing, activity mod, and stretch, strength ex. Goal Time Frame: 4-6 Weeks Goal Progress: Progressing Goal 3:: Pt feel painfree at rest and 3/10 at worst adn 75% improved overall. Goal Time Frame: 4-6 Weeks Goal Progress: 40% Goal 4:: qucikdash score 14 or less Goal Time Frame: 4-6 Weeks Goal Progress: Progressing Anticipated Interventions Anticipated Interventions Patient/Client Instruction: Educate patient on: Condition and Plan of Care For the Purpose of:: To decrease pain, To improve nutrient delivery to tissue, To improve muscle performance and motor function, To increase tolerance to activity/condition/position and To prevent re-injury Therapeutic Exercise to Include: Strength training, Flexibilty training, Passive ROM and Active ROM For the Purpose of:: To decrease pain, To improve nutrient delivery to tissue, To improve muscle performance and motor function, To increase tolerance to activity/condition/position and To improve ability of physical actions for home/community/work/leisure Manual Therapy Techniques to Include: Soft tissue mobilization For the Purpose of:: To decrease pain, To decrease swelling/inflammation, To increase ROM and To improve nutrient delivery to tissue Prosthetic, Protective Equipment: Braces Comment: wrist For the Purpose of:: To decrease pain and To decrease swelling/inflammation Cryotherapy (ice pack, ice massage): Yes Ultrasound (thermal/non thermal): Yes (nonthermal) For the Purpose of:: To decrease pain, To decrease swelling/inflammation and To improve nutrient delivery to tissue Re-Evaluation Ending Re-evaluation ending: Please do not hesitate to contact me at [phone] by phone or if you have questions or concerns regarding this new plan of care! Sincerely, Kelton Villarreal, DPT, OCS, CSCS
--- NOTE | 2023-01-27 17:21 | HP.PT.NRP ---
Patient Information Patient Information: BOBY VAN was seen in my office for initial evaluation on 11/14/22. The following Plan of Care was established for this patient: POC Established Initial Frequency: 3x /Week Initial Duration: 2-4 Weeks Anticipated Interventions Patient/Client Instruction: Educate patient on: Condition and Plan of Care For the Purpose of:: To decrease pain, To improve nutrient delivery to tissue, To improve muscle performance and motor function, To increase tolerance to activity/condition/position and To prevent re-injury Therapeutic Exercise to Include: Strength training, Flexibilty training, Passive ROM and Active ROM For the Purpose of:: To decrease pain, To improve nutrient delivery to tissue, To improve muscle performance and motor function, To increase tolerance to activity/condition/position and To improve ability of physical actions for home/community/work/leisure Manual Therapy Techniques to Include: Soft tissue mobilization For the Purpose of:: To decrease pain, To decrease swelling/inflammation, To increase ROM and To improve nutrient delivery to tissue Prosthetic, Protective Equipment: Braces Comment: wrist For the Purpose of:: To decrease pain and To decrease swelling/inflammation Cryotherapy (ice pack, ice massage): Yes Ultrasound (thermal/non thermal): Yes (nonthermal) For the Purpose of:: To decrease pain, To decrease swelling/inflammation and To improve nutrient delivery to tissue Last Seen Last Seen: This patient was last seen in our office 12/03/22. Pertinent comments regarding their Physical therapy will appear below: Pt seen 5 visits of POC and was 40% better. did not attend any further visits. at this point it has been over 6 weeks and I will discontinue. At this point I will be discontinuing this patient from physical therapy. I would be happy to see this patient again in the future if found appropriate by the physician. Thank you! Kelton Villarreal, DPT, OCS, CSCS Balance/Gait/Functional tests Balance/Special Test Scores Quick DASH Score: 15.9086
== END 2022-12-03 19:00 | disposition home or self-care (01) ==
LOC: PT 14:00
PROVIDERS: PCP Internal Medicine; Referring Provider Internal Medicine; Visit Provider Internal Medicine
DX: M77.11 Lateral epicondylitis, right elbow (principal)
CPT/HCPCS: 97035; 97110; 97140; 97161; 97530

== ENCOUNTER → 2023-02-10 | Outpatient (CLI) | payer MEDICARE, SELFPAY ==
[2023-02-10 16:53] LABS: Absolute Lymphocyte Count 1.03 X10^3/uL (0.83-4.51); Absolute Neutrophil Count 6.1 X10^3/uL (2.0-7.7); Basophil# 0.05 X10^3/uL; Basophil% 0.6 % (0-1); Eosinophil# 0.28 X10^3/uL; Eosinophils% 3.3 % (0-5); Hematocrit 34.2 % (40-54); Hemoglobin 10.1 g/dL (13.0-16.5); Lymphocyte # 1.03 X10^3/ul (0.83-4.51); Lymphocyte % 12.2 % (19-41); Mean Corp Hgb Conc 29.5 g/dL (32-36); Mean Corpuscular Hgb 24.2 pg (27.0-32.0); Mean Corpuscular Volume 81.8 fL (80-94); Mean Platelet Vol. 10.7 fl (6.2-12.0); Monocyte# 0.96 X10^3/uL; Monocyte% 11.4 % (0-10); NRBC Flagged by Analyzer 0 % (0-5); Neutrophil # 6.06 X10^3/uL (2.7-7.7); Neutrophil % 71.9 % (47-70); Platelet Count 346 K/mm3 (150-450); RBC Distribution Width CV 14.5 % (11.6-14.6); RBC Distribution Width SD 42.6 fl (35.1-43.9); Red Blood Count 4.18 M/mm3 (4.6-6.2); White Blood Count 8.4 K/mm3 (4.4-11.0)
[2023-02-10 17:19] LABS: ALB/GLOB Ratio 0.9 RATIO (0.9-2.4); AST(SGOT) 15 U/L (15-37); Alanine Aminotransfer ALT/SGPT 14 U/L (16-61); Albumin, Serum 3.3 g/dL (3.2-5.0); Alkaline Phosphatase 129 U/L (45-117); Anion Gap 3 (5-15); BUN 11 mg/dL (7-18); BUN/Creat Ratio 10.1 RATIO (10-20); Calcium,Total 8.6 mg/dL (8.5-10.1); Chloride 108 mmol/L (98-107); Creatinine, Serum 1.09 mg/dL (0.70-1.30); EST Glomerular Filtration Rate 68 mL/min (>60); Est Glom Filt Rate - Afr Amer 83 mL/min (>60); Globulin 3.5 g/dL (2.2-4.2); Glucose 104 mg/dL (74-106); Potassium 3.8 mmol/L (3.5-5.1); Protein, Total 6.8 g/dL (6.4-8.2); Sodium Level 139 mmol/L (136-145); Thyroid Stim Hormone (TSH) 1.34 uIU/mL (0.358-3.74)
[2023-02-10 17:43] LABS: Hepatitis C Antibody Non-Reactive (Nonreactive); Vitamin D,25 Hydroxy 22.8 ng/mL
== END | disposition home or self-care (01) ==
LOC: POLAB3 15:56
PROVIDERS: PCP Internal Medicine; Visit Provider Family Medicine Geriatric Medicine
DX: I10 Essential (primary) hypertension (principal); E55.9 Vitamin D deficiency, unspecified; Z13.89 Encounter for screening for other disorder
CPT/HCPCS: 36415; 80053; 82306; 84443; 85025; 86803

== ENCOUNTER → 2023-02-16 | Outpatient (CLI) | payer MEDICARE, SELFPAY ==
[2023-02-16 13:40] LABS: Absolute Lymphocyte Count 1.28 X10^3/uL (0.83-4.51); Absolute Neutrophil Count 4.5 X10^3/uL (2.0-7.7); Basophil# 0.06 X10^3/uL; Basophil% 0.8 % (0-1); Eosinophil# 0.43 X10^3/uL; Hematocrit 35.5 % (40-54); Hemoglobin 10.6 g/dL (13.0-16.5); Lymphocyte # 1.28 X10^3/ul (0.83-4.51); Lymphocyte % 17.9 % (19-41); Mean Corp Hgb Conc 29.9 g/dL (32-36); Mean Corpuscular Hgb 24.8 pg (27.0-32.0); Mean Corpuscular Volume 82.9 fL (80-94); Mean Platelet Vol. 10.9 fl (6.2-12.0); Monocyte# 0.84 X10^3/uL; Monocyte% 11.8 % (0-10); NRBC Flagged by Analyzer 0 % (0-5); Neutrophil # 4.51 X10^3/uL (2.7-7.7); Neutrophil % 63.2 % (47-70); Platelet Count 369 K/mm3 (150-450); RBC Distribution Width CV 14.7 % (11.6-14.6); RBC Distribution Width SD 44.5 fl (35.1-43.9); RET-HE 22.8 pg (30-35); Red Blood Count 4.28 M/mm3 (4.6-6.2); Reticulocyte Count 0.99 % (0.5-1.5); White Blood Count 7.1 K/mm3 (4.4-11.0)
[2023-02-16 13:57] LABS: Vitamin B12 358 pg/mL (211-911)
[2023-02-16 14:12] LABS: Ferritin 14 ng/mL (26-388); Iron 19 ug/dL (65-175); Iron Binding Capacity,Total 415 ug/dL (250-450); PERCENT IRON SATURATION 4.6 % (15.0-55.0)
== END | disposition home or self-care (01) ==
LOC: POLAB3 10:30
PROVIDERS: PCP Internal Medicine; Visit Provider Family Medicine Geriatric Medicine
DX: D50.9 Iron deficiency anemia, unspecified (principal)
CPT/HCPCS: 36415; 82607; 82728; 82746; 83540; 83550; 85025; 85045

== ENCOUNTER → 2023-03-04 | Outpatient (CLI) | payer MEDICARE, SELFPAY ==
[2023-03-04 17:10] LABS: Homocysteine 15.1 umol/L (3.2-10.7)
[2023-03-11 06:09] LABS: Methylmalonic Acid Bld 121 nmol/L (0-378)
== END | disposition home or self-care (01) ==
LOC: POLAB3 16:16
PROVIDERS: PCP Internal Medicine; Visit Provider Family Medicine Geriatric Medicine
DX: E53.8 Deficiency of other specified B group vitamins (principal)
CPT/HCPCS: 36415; 83090; 83921

== ENCOUNTER → 2023-06-11 | Outpatient (CLI) | payer MEDICARE, SELFPAY | END | disposition home or self-care (01) | LOC: PSN 10:22 | PROVIDERS: PCP Internal Medicine; Referring Provider Family Medicine Geriatric Medicine; Visit Provider Family Medicine Geriatric Medicine | DX: R68.83 Chills (without fever) (principal) | CPT/HCPCS: 87631 ==

== ENCOUNTER 2023-06-19 11:55 | Emergency (ER) | payer MEDICARE, SELFPAY ==
[2023-06-19] VITALS (8 sets, daily range): BP systolic 134–192; BP diastolic 59–72; PULSE 69–84; RESP 15–18; TEMP 36.3–36.6; O2SAT 94–100; BMI 23.0
--- NOTE | 2023-06-19 12:28 | EKG12_ITS ---
Test Reason : Blood Pressure : / mmHG Vent. Rate : 071 BPM Atrial Rate : 071 BPM P-R Int : 132 ms QRS Dur : 072 ms QT Int : 380 ms P-R-T Axes : 065 035 061 degrees QTc Int : 412 ms Sinus rhythm with frequent Premature ventricular complexes Nonspecific T wave abnormality Abnormal ECG Confirmed by Pantera Sauceda ([id number]), editor city [place]ONARD[place] REGALADO ([id number]) on 06/22/2023 11:11:53 AM Referred By: Confirmed By:Pantera Sauceda
--- NOTE | 2023-06-19 12:32 | EDS_ITS ---
HPI <ELLA Sales - Last Filed: 06/19/23 16:53> History of Present Illness Chief Complaint: Shortness of Breath Narrative Narrative: Patient is an 83-year-old male with history of hypertension who presents to the emergency department for complaints of shortness of breath. Patient was diagnosed with COVID-19, patient's was started on Paxlovid, finished Paxlovid on Thursday which was 3 days ago. Patient states he continues to be significantly short of breath. Patient dates he is more short of breath on exertion, he also has asthma which is making it worse. Despite his albuterol treatments as well as his oral medications he is not feeling better. Denies any fever chills nausea or vomiting. PFSH <ELLA Sales - Last Filed: 06/19/23 16:53> [facility] Medical History (Updated 06/19/23 @ 16:22 by ELLA Sales) Asthma Benign prostatic hyperplasia without urinary obstruction Cervical radiculopathy Cervical strain Cubital tunnel syndrome on left CVA (cerebral vascular accident) Diverticulitis Syncope and collapse Home Medications albuterol sulfate 90 mcg/actuation aerosol inhaler (Ventolin HFA) 1 - 2 puff inhalation Q4H PRN PRN Wheezing ##1 05/02/14 [Rx Last Taken Unknown] montelukast 10 mg tablet (Singulair) 10 mg PO DAILY 05/02/14 [History Last Taken Unknown] fluticasone 500 mcg-salmeterol 50 mcg/dose blistr powdr for inhalation (Advair Diskus) 1 puff inhalation BID 05/05/14 [History Last Taken Unknown] acetaminophen 325 mg capsule (Tylenol) 325 mg PO TID PRN 11/20/21 [History Last Taken Unknown] camphor 3.1 %-methyl salicylate 10 %-menthol 6 % topical patch (Salonpas) 1 patch topical DAILY PRN 11/20/21 [History Last Taken Unknown] clopidogrel 75 mg tablet 75 mg PO DAILY 11/20/21 [History Last Taken Unknown] gabapentin 100 mg capsule 100 mg PO BID 11/20/21 [History Last Taken Unknown] losartan 25 mg tablet 25 mg PO DAILY 11/20/21 [History Last Taken Unknown] rosuvastatin 5 mg tablet 5 mg PO QHS 11/20/21 [History Last Taken Unknown] prednisone 50 mg tablet 50 mg PO DAILY #5 tabs 06/19/23 [Rx Last Taken Unknown] Allergy/AdvReac Type Severity Reaction Status Date / Time naproxen [From Aleve] Allergy Unknown palpitaions, Verified 06/19/23 11:58 SOB aspirin Allergy Shortness Verified 06/19/23 11:58 of breath ibuprofen Allergy Other Verified 06/19/23 11:58 Family History (Updated 11/20/21 @ 11:53 by Monik Perez) Sister Cancer Mother Bleeding disorder Surgical History (Updated 11/20/21 @ 12:00 by Monik Perez) History of appendectomy Myringotomy tube status (~2005) Social History (Updated 11/20/21 @ 11:54 by Monik Perez) household members: spouse Smoking Status: Never smoker alcohol intake: never substance use type: does not use caffeine: Yes Type: coffee Number of servings: 2 ROS <ELLA Sales - Last Filed: 06/19/23 16:53> ROS ED ROS Narrative Constitutional: Negative for fever, chills, weight loss. Positive for weakness Eyes: Negative for vision loss, vision change, double vision ENT: Negative for any sore throat, ear pain, congestion Cardiovascular: Negative for any chest pain, tightness, palpitations Respiratory: Negative for any hemoptysis.positive for cough, intermittent sputum production, dyspnea, dyspnea on exertion, orthopnea Gastrointestinal: Negative for any abdominal pain, nausea, vomiting, diarrhea, constipation, blood in stool, blood in vomit : Negative for any urinary frequency, dysuria, retention, blood in urine Muscle skeletal: Negative for any neck pain, back pain Neurological: Negative for any headache, syncope, dizziness Skin: Negative for any rashes, itching, abrasions, lacerations Psychiatric: Negative for any depression, anxiety, stress, suicidal ideation, homicidal ideation Hematologic: Negative for any excessive bruising, easy bleeding EXAM <ELLA Sales - Last Filed: 06/19/23 16:53> Physical Exam Narrative Exam Narrative: Vital signs reviewed. Vital signs are stable HEET: Head normocephalic atraumatic, TMs clear bilaterally. Posterior pharynx is clear, moist mucous membranes. Nares clear bilaterally. Neck: Supple with no lymphadenopathy or tenderness. No signs of meningismus. Cardiac: Regular rate and rhythm no murmurs gallops or rubs, equal peripheral pulses bilaterally. Respiratory: Patient has left anterior expiratory wheezes, diminished lung sounds posteriorly into the lower lung base. No chest tenderness. Abdomen: Soft, nontender, nondistended. No abdominal bruit or pulsatile masses. No hepatosplenomegaly Extremities: No peripheral edema, no signs of gross trauma or deformity. Active full range of motion of all extremities. Neuro: Cranial nerves II through XII intact, no focal neurological deficits. Skin: Clean dry and intact with no rash, purpura, petechiae, vesicles or pustules. Backs/flank: No CVA tenderness, no midline spinal tenderness, no deformity. Psych: Normal mood and affect. No SI, HI or acute psychosis. Const Vital Signs: 06/19/23 11:56 06/19/23 12:07 06/19/23 12:54 Temperature 97.8 F Temperature Source Temporal Pulse Rate 79 69 Respiratory Rate 16 18 Respiratory Effort Normal Non-Labored Respiratory Depth Normal Respiratory Pattern Normal Normal Blood Pressure 180/59 H Blood Pressure Mean 99 Pulse Ox 100 Oxygen Delivery Method Room Air Room Air 06/19/23 12:54 06/19/23 13:11 06/19/23 13:14 Temperature Temperature Source Pulse Rate 78 Respiratory Rate 18 Respiratory Effort Respiratory Depth Respiratory Pattern Blood Pressure Blood Pressure Mean Pulse Ox 95 99 99 Oxygen Delivery Method Room Air Room Air Room Air 06/19/23 15:34 06/19/23 17:09 Temperature 97.4 F L Temperature Source Pulse Rate 84 69 Respiratory Rate 16 15 Respiratory Effort Respiratory Depth Respiratory Pattern Blood Pressure 192/67 H 134/72 H Blood Pressure Mean 108 92 Pulse Ox 94 96 Oxygen Delivery Method Room Air <Dr. Elmer Mars, DO - Last Filed: 06/19/23 17:25> Physical Exam Const Vital Signs: 06/19/23 11:56 06/19/23 12:07 06/19/23 12:54 Temperature 97.8 F Temperature Source Temporal Pulse Rate 79 69 Respiratory Rate 16 18 Respiratory Effort Normal Non-Labored Respiratory Depth Normal Respiratory Pattern Normal Normal Blood Pressure 180/59 H Blood Pressure Mean 99 Pulse Ox 100 Oxygen Delivery Method Room Air Room Air 06/19/23 12:54 06/19/23 13:11 06/19/23 13:14 Temperature Temperature Source Pulse Rate 78 Respiratory Rate 18 Respiratory Effort Respiratory Depth Respiratory Pattern Blood Pressure Blood Pressure Mean Pulse Ox 95 99 99 Oxygen Delivery Method Room Air Room Air Room Air 06/19/23 15:34 06/19/23 17:09 Temperature 97.4 F L Temperature Source Pulse Rate 84 69 Respiratory Rate 16 15 Respiratory Effort Respiratory Depth Respiratory Pattern Blood Pressure 192/67 H 134/72 H Blood Pressure Mean 108 92 Pulse Ox 94 96 Oxygen Delivery Method Room Air [facility] <ELLA Sales - Last Filed: 06/19/23 16:53> [facility] Lab Data Labs: Laboratory Results - last 24 hr 06/19/23 06/19/23 13:19 16:24 WBC 9.6 RBC 4.96 Hgb 11.3 L Hct 38.2 L MCV 77.0 L MCH 22.8 L MCHC 29.6 L RDW Std Deviation 46.0 H RDW Coeff of Heriberto 16.4 H Plt Count 368 MPV 10.1 Immature Gran % (Auto) 2.500 H Neut % (Auto) 70.9 H Lymph % (Auto) 12.0 L Tift % (Auto) 13.8 H Eos % (Auto) 0.3 Baso % (Auto) 0.5 Absolute Neuts (auto) 6.8 Absolute Lymphs (auto) 1.15 Nucleated RBC % 0 D-Dimer Quant (PE/DVT) 2.74 H* Sodium 140 Potassium 4.2 Chloride 107 Carbon Dioxide 30.0 Anion Gap 3 L BUN 13 Creatinine 0.88 Estim Creat Clear Calc 59.38 Est GFR (MDRD) Af Amer 106 Est GFR (MDRD) Non-Af 87 BUN/Creatinine Ratio 14.8 Glucose 105 Calcium 8.6 Urine Color Yellow Urine Clarity Clear Urine pH 6.5 Ur Specific [place] 1.010 Urine Protein 30 H Urine Glucose (UA) 100 H Urine Ketones Negative Urine Occult Blood 10 H Urine Nitrite Positive H Urine Bilirubin Negative Urine Urobilinogen Normal Ur Leukocyte Esterase 25 H Urine RBC 0 SEEN Urine WBC 0 SEEN Ur Squamous Epith Cells 0 SEEN Urine Bacteria 0 SEEN Urine Mucus 0 SEEN Radiography Diagnostic Testing: Clinical Impression(s) from Imaging Studies Chest X-Ray 06/19/23 13:20 IMPRESSION: Stable ill-defined opacity within the left lower lung may reflect atelectasis and/or scarring, cannot exclude superimposed pneumonia. Electronically Signed: Tereza Angulo MD at 13:38 EDT , Chest CTA 06/19/23 13:56 IMPRESSION: 1. Negative CTA chest examination, without a demonstrated pulmonary embolism or arterial dissection. 2. Scattered fibrotic scarring is present in both lungs with predominance in the right lung base. There is no demonstrated consolidation or pneumonic infiltrates. No nodules or masses are present. No active pulmonary edema or pleural effusion is seen. Electronically Signed: Sushil Bauer MD at 15:11 EDT , EKG EKG shows sinus rhythm with PVCs, rate 71 bpm: Attestation: I personally reviewed and interpreted this EKG as follows: Comments: Sinus rhythm with frequent premature ventricular complexes, rate of 71 bpm, TN 132 ms, QRS duration [address] elevation, no acute infarct noted. Treatment and Re-Evaluation :: Differential diagnosis includes however is not limited to: Asthma exacerbation, sequelae from COVID-19, community-acquired pneumonia, viral-like pneumonia, pulmonary embolus Patient appears to be in no obvious respiratory distress, patient's vital signs are stable. Patient is hypoxic does not look toxic. Presenting to the emerge ncy department for shortness of breath post COVID-19. Patient did have some wheezing, however patient does have asthma. Patient will receive some basic laboratory values look for any leukocytosis, anemia, electrolyte abnormalities. Patient will receive a D-dimer, secondary to the patient having COVID-19, asthma, and concern for possible pulmonary embolus with the ongoing shortness of breath. Patient will be given breathing treatment as well as oral steroids. Patient will be reevaluated. Patient CBC shows slight anemia with a hemoglobin 11.3 this is baseline over the last year. Patient's chemistries were unremarkable. Patient's D-dimer was elevated at 2.74. Secondary to this, the patient will receive a CT of the chest, chest x-ray showed a stable ill-defined opacity of the left lower lung which may reflect atelectasis or scarring. Patient did respond well with breathing treatments, IV steroids. CT of the chest shows negative CT without any pulmonary embolus or arterial dissection. There are some scarring in both lungs. No acute process. At this time, patient was able to walk and maintain his pulse oxygenation. Patient's urinalysis will be checked. Urinalysis was positive for nitrates, 25 leukocytes however no white blood cells, no bacteria. This to be sent for culture. Patient will get a call if anything grows. Patient will take the prednisone. Stable for discharge. <Dr. Elmer Mars, DO - Last Filed: 06/19/23 17:25> [facility] History & Record Review Discussion w/independent historian: Patient and Significant other Lab Data Attestation: I reviewed the patient's lab results. Labs: Laboratory Results - last 24 hr 06/19/23 06/19/23 13:19 16:24 WBC 9.6 RBC 4.96 Hgb 11.3 L Hct 38.2 L MCV 77.0 L MCH 22.8 L MCHC 29.6 L RDW Std Deviation 46.0 H RDW Coeff of Heriberto 16.4 H Plt Count 368 MPV 10.1 Immature Gran % (Auto) 2.500 H Neut % (Auto) 70.9 H Lymph % (Auto) 12.0 L Tift % (Auto) 13.8 H Eos % (Auto) 0.3 Baso % (Auto) 0.5 Absolute Neuts (auto) 6.8 Absolute Lymphs (auto) 1.15 Nucleated RBC % 0 D-Dimer Quant (PE/DVT) 2.74 H* Sodium 140 Potassium 4.2 Chloride 107 Carbon Dioxide 30.0 Anion Gap 3 L BUN 13 Creatinine 0.88 Estim Creat Clear Calc 59.38 Est GFR (MDRD) Af Amer 106 Est GFR (MDRD) Non-Af 87 BUN/Creatinine Ratio 14.8 Glucose 105 Calcium 8.6 Urine Color Yellow Urine Clarity Clear Urine pH 6.5 Ur Specific [place] 1.010 Urine Protein 30 H Urine Glucose (UA) 100 H Urine Ketones Negative Urine Occult Blood 10 H Urine Nitrite Positive H Urine Bilirubin Negative Urine Urobilinogen Normal Ur Leukocyte Esterase 25 H Urine RBC 0 SEEN Urine WBC 0 SEEN Ur Squamous Epith Cells 0 SEEN Urine Bacteria 0 SEEN Urine Mucus 0 SEEN Radiography Diagnostic Testing: Clinical Impression(s) from Imaging Studies Chest X-Ray 06/19/23 13:20 IMPRESSION: Stable ill-defined opacity within the left lower lung may reflect atelectasis and/or scarring, cannot exclude superimposed pneumonia. Electronically Signed: Tereza Angulo MD at 13:38 EDT , Chest CTA 06/19/23 13:56 IMPRESSION: 1. Negative CTA chest examination, without a demonstrated pulmonary embolism or arterial dissection. 2. Scattered fibrotic scarring is present in both lungs with predominance in the right lung base. There is no demonstrated consolidation or pneumonic infiltrates. No nodules or masses are present. No active pulmonary edema or pleural effusion is seen. Electronically Signed: Sushil Bauer MD at 15:11 EDT , Treatment and Re-Evaluation :: Differential diagnosis includes however is not limited to: Asthma exacerbation, sequelae from COVID-19, community-acquired pneumonia, viral-like pneumonia, pulm onary embolus Patient appears to be in no obvious respiratory distress, patient's vital signs are stable. Patient is hypoxic does not look toxic. Presenting to the emergency department for shortness of breath post COVID-19. Patient did have some wheezing, however patient does have asthma. Patient will receive some basic laboratory values look for any leukocytosis, anemia, electrolyte abnormal ities. Patient will receive a D-dimer, secondary to the patient having COVID- 19, asthma, and concern for possible pulmonary embolus with the ongoing shortness of breath. Patient will be given breathing treatment as well as oral steroids. Patient will be reevaluated. Patient CBC shows slight anemia with a hemoglobin 11.3 this is baseline over the last year. Patient's chemistries were unremarkable. Patient's D-dimer was elevated at 2.74. Secondary to this, the patient will receive a CT of the chest, chest x-ray showed a stable ill-defined opacity of the left lower lung which may reflect atelectasis or scarring. Patient did respond well with breathing treatments, IV steroids. CT of the chest shows negative CT without any pulmonary embolus or arterial dissection. There are some scarring in both lungs. No acute process. At this time, patient was able to walk and maintain his pulse oxygenation. Patient's urinalysis will be checked. Urinalysis was positive for nitrates, 25 leukocytes however no white blood cells, no bacteria. This to be sent for culture. Patient will get a call if anything grows. Patient will take the prednisone. Stable for discharge. I have personally performed a face to face assessment of the patient and have reviewed the LEYLA Note. I performed a substantive portion of the visit including all aspects of the following. My miles findings include: History is 83-year-old male s/p COVID-19 infection reporting some shortness of breath. He finished Paxlovid. He is on Plavix. Denies any chest pain. Exam is patient no acute distress. He is not tachycardic. He is not demonstrating any pain. He is not hypoxic. There is some expiratory wheeze. No significant leg swelling. Medical Decison Making He does have a history of asthma and is status post a viral infection. Negative interpretation of the chest x-ray is no acute process. No evidence of ACS. His D-dimer is elevated therefore a CTA was obtained which is negative for pulmonary embolism or obvious infiltrate. I believe supportive care would be indicated with some prednisone. Patient to return if worsening or concerns. Patient at discharge then mentioned that he had been having urinary frequency. Male urinalysis was obtained which is positive for nitrates but the micro was not supportive of a acute cystitis. He is not experiencing rectal pain. We will send this for culture. Discharge Plan Triage Chief Complaint: Shortness of Breath ED Midlevel Provider: Chapincito Pedersen ED Provider: Elmer Mars Dx/Rx/DC Orders Clinical Impression: COVID-19 pratima vang, Asthma Instructions: Asthma Prescriptions: New prednisone 50 mg tablet 50 mg PO DAILY Qty: 5 0RF No Action Salonpas 3.1-10-6 % adhesive patch,medicated 1 patch topical DAILY PRN Rx Instructions: may leave on area for up to 8 hrs acetaminophen [Tylenol] 325 mg capsule 325 mg PO TID PRN gabapentin 100 mg capsule 100 mg PO BID losartan 25 mg tablet 25 mg PO DAILY Patient Comments: TAKE 1 TABLET BY MOUTHCONCE DAILY IN THE MORNING rosuvastatin 5 mg tablet 5 mg PO QHS Patient Comments: TAKE 1 TABLET BY MOUTHOONCE DAILY AT BEDTIME clopidogrel 75 mg tablet 75 mg PO DAILY Patient Comments: TAKE 1 TABLET BY MOUTHCONCE DAILY montelukast [Singulair] 10 MG tablet 10 mg PO DAILY Patient Comments: lungs albuterol sulfate [Ventolin HFA] 1 INHALER inhaler 1 - 2 puff inhalation Q4H PRN PRN (Reason: Wheezing) Qty: 1 0RF Patient Comments: lungs, shortness of breath fluticasone propion-salmeterol [Advair Diskus] 1 PUFF inhaler 1 puff inhalation BID Patient Comments: lungs Primary Care Provider: J Luis Mcgill Chi Referrals: Lou Bales DO [Med Staff - Seismic Engineer] - Activity Restrictions/Additional Instructions: We will send her urine for a culture, if it grows anything you will be called. Take the prednisone until finished, continue using your inhalers. Disposition Disposition: Home, Self Care Discharge Date/Time: 06/19/23 17:10
[2023-06-19] MEDS: Ipratropium/Albuterol Sulfate 3 ML AMPUL.NEB INHALATION (12:50)
[2023-06-19] MEDS: Albuterol 2.5 MG/3 ML VIAL.NEB. 5 MG INHALATION (12:50)
[2023-06-19] MEDS: MethylPREDNISolone 125 MG/2 ML Vial 60 MG IV (13:14)
--- NOTE | 2023-06-19 13:20 | RAD_ITS ---
INDICATION: cough EXAMINATION/TECHNIQUE: X-RAY - XR Chest 2 Views COMPARISON: May 29, 2022 FINDINGS: LINES/DEVICES: None. LUNGS: No new consolidation, edema or effusion. There is a stable ill-defined opacity within the left lower lung. No pneumothorax. MEDIASTINUM AND CARDIOVASCULAR STRUCTURES: Cardiac silhouette not enlarged. Central airways and mediastinal contour are unremarkable. BONES AND SOFT TISSUES: Unremarkable. RAD/Chest PA and Lateral IMPRESSION: Stable ill-defined opacity within the left lower lung may reflect atelectasis and/or scarring, cannot exclude superimposed pneumonia. Electronically Signed: Tereza Angulo MD at 13:38 EDT ,
[2023-06-19 13:28] LABS: Absolute Lymphocyte Count 1.15 X10^3/uL (0.83-4.51); Absolute Neutrophil Count 6.8 X10^3/uL (2.0-7.7); Basophil# 0.05 X10^3/uL; Basophil% 0.5 % (0-1); Eosinophil# 0.03 X10^3/uL; Eosinophils% 0.3 % (0-5); Hematocrit 38.2 % (40-54); Hemoglobin 11.3 g/dL (13.0-16.5); Lymphocyte # 1.15 X10^3/ul (0.83-4.51); Mean Corp Hgb Conc 29.6 g/dL (32-36); Mean Corpuscular Hgb 22.8 pg (27.0-32.0); Mean Platelet Vol. 10.1 fl (6.2-12.0); Monocyte# 1.32 X10^3/uL; Monocyte% 13.8 % (0-10); NRBC Flagged by Analyzer 0 % (0-5); Neutrophil # 6.77 X10^3/uL (2.7-7.7); Neutrophil % 70.9 % (47-70); Platelet Count 368 K/mm3 (150-450); RBC Distribution Width CV 16.4 % (11.6-14.6); Red Blood Count 4.96 M/mm3 (4.6-6.2); White Blood Count 9.6 K/mm3 (4.4-11.0)
[2023-06-19 13:41] LABS: Anion Gap 3 (5-15); BUN 13 mg/dL (7-18); BUN/Creat Ratio 14.8 RATIO (10-20); Calcium,Total 8.6 mg/dL (8.5-10.1); Chloride 107 mmol/L (98-107); Creatinine, Serum 0.88 mg/dL (0.70-1.30); EST Glomerular Filtration Rate 87 mL/min (>60); Est Glom Filt Rate - Afr Amer 106 mL/min (>60); Estimated Creatinine Clearance 59.38 ml/min; Glucose 105 mg/dL (74-106); Potassium 4.2 mmol/L (3.5-5.1); Sodium Level 140 mmol/L (136-145)
[2023-06-19 13:52] LABS: D-Dimer Quantitative (DVT/PE) 2.74 FEU/ug/m (0.27-0.49)
--- NOTE | 2023-06-19 13:56 | CT_ITS ---
STUDY: CTA CHEST REASON FOR EXAM: Male, 83 years old. Elevated Dimer RADIATION DOSAGE (If Supplied By Facility): CTDIvol = ( 8.62 ) mGy, DLP = ( 225.68 ) mGycm TECHNIQUE: The examination was performed with the intravenous administration of IV 100mL [id number]-[id number]. Post-processing of the angiographic images was performed, with multiplanar reformation and 3D reconstruction. Individualized dose optimization techniques were used for this CT. COMPARISON: CTA of the chest dated April 26, 2019 FINDINGS: Scattered fibrotic scarring is present in both lungs with predominance in the right lung base. There is no demonstrated consolidation or pneumonic infiltrates. No nodules or masses are present. No active pulmonary edema or pleural effusion is seen. Normal enhancement of the main pulmonary artery and right and left pulmonary arteries. Normal enhancement of the bilateral peripheral pulmonary arteries. There is no demonstrated pulmonary embolism. There is atherosclerotic calcification of the aortic arch with tortuosity. There is no demonstrated aortic dissection. Normal heart and pericardium. There are calcifications of the coronary arteries. Normal mediastinum. There are calcified left hilar lymph nodes. Normal visualized trachea and bronchi. The lungs are well expanded. Normal pleura. Normal chest wall structures. There are degenerative changes of thoracic spine. Visualized upper abdomen: Colonic diverticula are present. Remaining visualized upper abdominal structures are unremarkable. CT/CTA Chest W/WO Contrast IMPRESSION: 1. Negative CTA chest examination, without a demonstrated pulmonary embolism or arterial dissection. 2. Scattered fibrotic scarring is present in both lungs with predominance in the right lung base. There is no demonstrated consolidation or pneumonic infiltrates. No nodules or masses are present. No active pulmonary edema or pleural effusion is seen. Electronically Signed: Sushil Bauer MD at 15:11 EDT ,
[2023-06-19 16:27] LABS: Bacteria 0 SEEN /hpf (None Seen); Mucous, Urine 0 SEEN /hpf (<or=2+); Red Blood Cells-Urine 0 SEEN /hpf (0-5); Squamous Epithelial Cells - UA 0 SEEN /hpf (0-5); White Blood Cells 0 SEEN /hpf (0-5)
[2023-06-19 16:39] LABS: Color, Urine Yellow (Yellow); Glucose, Dipstick 100 mg/dl (Normal); Ketone-Dipstick Negative (Negative); Leukocyte Esterase-Dipstick 25 /ul (Negative); Nitrite-Dipstick Positive (Negative); Occult Blood-Urine 10 /ul (Negative); Protein-Dipstick 30 mg/dl (Negative); Urine Bilirubin Dipstick Negative (Negative); Urine Clarity Clear (Clear); Urine Urobilinogen Normal (Normal); Urine pH 6.5 (5.0 - 8.0)
== END 2023-06-19 17:10 | disposition home or self-care (01) ==
PROVIDERS: Nurse Practitioner; Emergency Provider Emergency Medicine; PCP Family Medicine Geriatric Medicine; Visit Provider Emergency Medicine
DX: R06.02 Shortness of breath (principal); U09.9 Post COVID-19 condition, unspecified; J45.909 Unspecified asthma, uncomplicated; I10 Essential (primary) hypertension; Z79.52 Long term (current) use of systemic steroids; Z79.02 Long term (current) use of antithrombotics/antiplatelets; R35.0 Frequency of micturition
CPT/HCPCS: 71046; 71275; 80048; 81001; 85025; 85379; 87086; 93005; 96374; 99284; Q9967; A4216

== ENCOUNTER → 2023-06-25 | Outpatient (CLI) | payer MEDICARE, SELFPAY ==
[2023-06-25 11:13] LABS: Absolute Lymphocyte Count 2.75 X10^3/uL (0.83-4.51); Absolute Neutrophil Count 8.7 X10^3/uL (2.0-7.7); Basophil# 0.08 X10^3/uL; Basophil% 0.6 % (0-1); Eosinophil# 0.16 X10^3/uL; Eosinophils% 1.2 % (0-5); Hematocrit 38.5 % (40-54); Hemoglobin 11.2 g/dL (13.0-16.5); Lymphocyte # 2.75 X10^3/ul (0.83-4.51); Lymphocyte % 20.2 % (19-41); Mean Corp Hgb Conc 29.1 g/dL (32-36); Mean Corpuscular Hgb 22.9 pg (27.0-32.0); Mean Corpuscular Volume 78.7 fL (80-94); Mean Platelet Vol. 10.5 fl (6.2-12.0); Monocyte# 1.49 X10^3/uL; NRBC Flagged by Analyzer 0 % (0-5); Neutrophil # 8.68 X10^3/uL (2.7-7.7); Neutrophil % 63.8 % (47-70); Platelet Count 362 K/mm3 (150-450); RBC Distribution Width CV 16.8 % (11.6-14.6); RBC Distribution Width SD 46.7 fl (35.1-43.9); Red Blood Count 4.89 M/mm3 (4.6-6.2); White Blood Count 13.6 K/mm3 (4.4-11.0)
[2023-06-25 11:27] LABS: Vitamin D,25 Hydroxy 18.2 ng/mL
[2023-06-25 11:43] LABS: AST(SGOT) 18 U/L (15-37); Alanine Aminotransfer ALT/SGPT 34 U/L (16-61); Albumin, Serum 3.1 g/dL (3.2-5.0); Alkaline Phosphatase 99 U/L (45-117); Anion Gap 5 (5-15); BUN 12 mg/dL (7-18); BUN/Creat Ratio 12.2 RATIO (10-20); Calcium,Total 8.6 mg/dL (8.5-10.1); Chloride 108 mmol/L (98-107); Creatinine, Serum 0.98 mg/dL (0.70-1.30); EST Glomerular Filtration Rate 77 mL/min (>60); Est Glom Filt Rate - Afr Amer 93 mL/min (>60); Globulin 3.1 g/dL (2.2-4.2); Glucose 75 mg/dL (74-106); Potassium 3.3 mmol/L (3.5-5.1); Protein, Total 6.2 g/dL (6.4-8.2); Sodium Level 140 mmol/L (136-145); Thyroid Stim Hormone (TSH) 1.76 uIU/mL (0.358-3.74)
== END | disposition home or self-care (01) ==
LOC: POLAB3 10:20
PROVIDERS: PCP Family Medicine Geriatric Medicine; Visit Provider Family Medicine Geriatric Medicine
DX: I10 Essential (primary) hypertension (principal); E55.9 Vitamin D deficiency, unspecified
CPT/HCPCS: 36415; 80053; 82306; 84443; 85025

== ENCOUNTER → 2023-07-01 | Outpatient (CLI) | payer MEDICARE, SELFPAY ==
[2023-07-01 15:00] LABS: Anion Gap 4 (5-15); BUN 8 mg/dL (7-18); BUN/Creat Ratio 8.8 RATIO (10-20); Calcium,Total 8.7 mg/dL (8.5-10.1); Chloride 106 mmol/L (98-107); Creatinine, Serum 0.91 mg/dL (0.70-1.30); EST Glomerular Filtration Rate 84 mL/min (>60); Est Glom Filt Rate - Afr Amer 101 mL/min (>60); Glucose 103 mg/dL (74-106); Potassium 3.5 mmol/L (3.5-5.1); Sodium Level 138 mmol/L (136-145)
== END | disposition home or self-care (01) ==
LOC: POLAB3 13:34
PROVIDERS: PCP Family Medicine Geriatric Medicine; Visit Provider Family Medicine Geriatric Medicine
DX: I10 Essential (primary) hypertension (principal)
CPT/HCPCS: 36415; 80048

== ENCOUNTER 2023-07-06 17:03 | Observation (INO) | payer MEDICARE, SELFPAY ==
[2023-07-06 17:04] VITALS: BP 175/59; PULSE 54; RESP 18; TEMP 36.3; O2SAT 97; BMI 22.8
[2023-07-06 17:08] VITALS: RESP 18; O2SAT 95
--- NOTE | 2023-07-06 17:09 | EKG12_ITS ---
Test Reason : SOB Blood Pressure : / mmHG Vent. Rate : 070 BPM Atrial Rate : 070 BPM P-R Int : 136 ms QRS Dur : 082 ms QT Int : 366 ms P-R-T Axes : 055 005 -60 degrees QTc Int : 395 ms Sinus rhythm with occasional Premature ventricular complexes ST & T wave abnormality, consider inferolateral ischemia Abnormal ECG Confirmed by HMIANSHU MUNOZ, KARRIE ([id number]), marketing editor GARRETT CANDELARIA ([id number]) on 07/07/2023 8:23:45 AM Referred By: Confirmed By:KARRIE DOWNS MD
[2023-07-06 17:31] LABS: Absolute Lymphocyte Count 0.41 X10^3/uL (0.83-4.51); Absolute Neutrophil Count 7.2 X10^3/uL (2.0-7.7); Basophil# 0.02 X10^3/uL; Basophil% 0.3 % (0-1); Eosinophil# 0.02 X10^3/uL; Eosinophils% 0.3 % (0-5); Hematocrit 38.4 % (40-54); Hemoglobin 11.7 g/dL (13.0-16.5); Lymphocyte # 0.41 X10^3/ul (0.83-4.51); Lymphocyte % 5.2 % (19-41); Mean Corp Hgb Conc 30.5 g/dL (32-36); Mean Corpuscular Hgb 23.9 pg (27.0-32.0); Mean Corpuscular Volume 78.4 fL (80-94); Mean Platelet Vol. 10.3 fl (6.2-12.0); Monocyte# 0.12 X10^3/uL; Monocyte% 1.5 % (0-10); NRBC Flagged by Analyzer 0 % (0-5); Neutrophil # 7.19 X10^3/uL (2.7-7.7); Neutrophil % 91.9 % (47-70); POSITIVE DIFFERENTIAL YES; Platelet Count 339 K/mm3 (150-450); RBC Distribution Width CV 17.2 % (11.6-14.6); RBC Distribution Width SD 48.5 fl (35.1-43.9); White Blood Count 7.8 K/mm3 (4.4-11.0)
[2023-07-06 17:37] LABS: Differential Indicated SCAN CRITERIA MET
[2023-07-06 17:58] LABS: Anisocytosis RARE; Microcytosis RARE; Platelet Estimate ADEQUATE (ADEQ); Red Cell Morphology N CHROM NORMAL (NORM C&C)
--- NOTE | 2023-07-06 17:59 | EDS_ITS ---
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 They relate history that he has past medical history of asthma and had COVID a month ago. He went to see his primary care provider, Dr. Mcgill, today. He performed outpatient laboratory work, and was shown to have an elevated troponin. Patient relates history that he has had increasing shortness of breath over the last few days. He is supposed to see his natural remedy consultant Dr. Gay in the near future. He has had chest pain that may be more right-sided in nature. No recent nausea or vomiting, no diaphoresis. On June 28, approximately 1 week ago, he had an episode of chest pain where he clutched his chest. That resolved. He denies any leg swelling. No history of hypertension. However, he is unable to take aspirin because he has an allergy which causes shortness of breath. He presents today because of the elevated troponin. [facility] Medical History Asthma Benign prostatic hyperplasia without urinary obstruction Cervical radiculopathy Cervical strain Cubital tunnel syndrome on left CVA (cerebral vascular accident) Diverticulitis Syncope and collapse Home Medications albuterol sulfate 90 mcg/actuation aerosol inhaler (Ventolin HFA) 1 - 2 puff inhalation Q4H PRN PRN Wheezing ##1 05/02/14 [Rx Last Taken Unknown] montelukast 10 mg tablet (Singulair) 10 mg PO DAILY 05/02/14 [History Last Taken 07/05/23] acetaminophen 325 mg capsule (Tylenol) 325 mg PO TID PRN fever or pain 11/20/21 [History Last Taken Unknown] losartan 25 mg tablet 25 mg PO DAILY 11/20/21 [History Last Taken 07/05/23] benzonatate 200 mg capsule 200 mg PO TID PRN cough 07/06/23 [History Last Taken Unknown] Allergy/AdvReac Type Severity Reaction Status Date / Time naproxen [From Aleve] Allergy Unknown palpitaions, Verified 07/06/23 17:04 SOB aspirin Allergy Shortness Verified 07/06/23 17:04 of breath ibuprofen Allergy Other Verified 07/06/23 17:04 Family History Sister Cancer Mother Bleeding disorder Surgical History History of appendectomy Myringotomy tube status (~2005) Social History household members: spouse Smoking Status: Never smoker alcohol intake: never substance use type: does not use caffeine: Yes Type: coffee Number of servings: 2 ROS ROS ED ROS Narrative Constitutional: No fever, no chills. HEENT: No sore throat. No neck pain. No loss of vision. No rhinorrhea. Cardiovascular: Chest pain 1 week ago, no current chest pain. No palpitations. No pedal edema. Respiratory: No cough, positive shortness of breath. Abdominal: No abdominal pain. No nausea. No vomiting. Genitourinary: No dysuria. No hematuria. Musculoskeletal: No myalgias. No arthralgias. Neurologic: No headaches. No dizziness. No lightheadedness. Skin: No rash. No change in color. Psychiatric: No depression. No anxiety. EXAM Physical Exam Narrative Exam Narrative: Afebrile. Vital signs noted. HEENT: Normocephalic. Atraumatic. PERRL, EOMI. Neck soft and supple. No point tenderness or step off. Cardiovascular: Positive bradycardia, no murmurs, rubs, or gallops appreciated. Respiratory: No tachypnea. Lungs clear to auscultation bilaterally. Gastrointestinal: Abdomen soft, nontender, with normoactive bowel sounds. No rebound or guarding. Neurological: Awake. Alert. Nonfocal, nonlateralizing. Skin: No rash. Normal color. No pallor. Musculoskeletal: No pedal edema. Full range of motion extremities. Const Vital Signs: 07/06/23 17:04 07/06/23 17:08 07/06/23 17:08 Temperature 97.3 F L Temperature Source Temporal Pulse Rate 54 L Respiratory Rate 18 Respiratory Effort Normal Non-Labored Respiratory Pattern Normal Blood Pressure 175/59 H Blood Pressure Mean 97 Pulse Ox 97 95 Oxygen Delivery Method Room Air Room Air 07/06/23 17:08 07/06/23 19:03 Temperature Temperature Source Pulse Rate 77 Respiratory Rate 18 20 H Respiratory Effort Respiratory Pattern Blood Pressure 155/89 H Blood Pressure Mean 111 Pulse Ox 95 95 Oxygen Delivery Method Room Air Room Air MDM MDM MDM Narrative Medical decision making narrative: I reviewed the patient's laboratory work from today and he had a troponin that was elevated in the 160s with a normal creatinine. RN ordered protocol laboratory work. EKG was obtained and interpreted by myself independently as sinus rhythm at 70 bpm with occasional PVCs. I see no acute ST changes. No STEMI. He has a lot of baseline artifact. There is T wave inversion in the inferior leads. Concern is for NSTEMI versus pulmonary embolism versus asthma exacerbation. RN had ordered D-dimer which is elevated at 5.91. Although this may be elevated to his COVID a month ago, concern would be for pulmonary embolism. I will order a CTA of the chest. I reviewed his laboratory work and he has a normal white count of 7.8, hemoglobin 11.7, hematocrit 38.4, platelet count normal at 339. His electrolyte panel is grossly unremarkable with a sodium normal at 138, potassium 4.2, chloride 105. Glucose is appropriately elevated at 129. Troponin is elevated at 175, slightly higher than his troponin in the 160s a few hours ago/earlier this morning. I do not feel his troponin elevation is from chronic kidney disease because he has normal creatinine. I am unable to give him aspirin secondary to an allergy. His troponin elevation may be secondary to a pulmonary embolism, but in review of his prior labs as well he has had chronically elevated D-dimer. I reviewed the CTA report which shows no evidence of a pulmonary embolism or dissection. I discussed patient with Dr. Bowens with cardiology. He suggested Lovenox subcutaneously and set the patient up for stress test in the morning. I then discussed the patient with Dr. Grewal. He will be assigned observation on the PCU. Patient is in stable condition. History & Record Review Discussion w/independent historian: Patient and Family Additional record(s) reviewed:: Prior labs Lab Data Attestation: I reviewed the patient's lab results. Labs: Laboratory Results - last 24 hr 07/06/23 17:15 WBC 7.8 RBC 4.90 Hgb 11.7 L Hct 38.4 L MCV 78.4 L MCH 23.9 L MCHC 30.5 L RDW Std Deviation 48.5 H RDW Coeff of Heriberto 17.2 H Plt Count 339 MPV 10.3 Immature Gran % (Auto) 0.800 Neut % (Auto) 91.9 H Lymph % (Auto) 5.2 L [place] % (Auto) 1.5 Eos % (Auto) 0.3 Baso % (Auto) 0.3 Absolute Neuts (auto) 7.2 Absolute Lymphs (auto) 0.41 L Nucleated RBC % 0 Differential Comment SEE COMMENT Platelet Estimate ADEQUATE RBC Morphology N CHROM Anisocytosis RARE Microcytosis RARE D-Dimer Quant (PE/DVT) 5.91 H* Sodium 138 Potassium 4.2 Chloride 105 Carbon Dioxide 26.0 Anion Gap 7 BUN 11 Creatinine 1.06 Estim Creat Clear Calc 49.20 Est GFR (MDRD) Af Amer 85 Est GFR (MDRD) Non-Af 71 BUN/Creatinine Ratio 10.4 Glucose 129 H Calcium 9.1 Troponin I High Sens 175 H* Radiography Diagnostic Testing: Clinical Impression(s) from Imaging Studies Chest CTA 07/06/23 18:04 IMPRESSION: No evidence of acute pulmonary emboli to the segmental level. Tiny focal area of consolidation in the lingula, slightly increased in size when compared to prior on 06/19/2023. This most likely represents rounded atelectasis or scarring, however cannot rule out infection or malignancy. Recommend follow-up chest CT in 3 months to ensure stability or resolution. Electronically Signed: Long Juarez MD at 19:09 EDT , Differential Diagnosis Chest pain/SOB: pulmonary embolism, ACS, pneumothorax, pneumonia and aortic dissection Management Discussion w/another healthcare provider: Hospitalist and [employer] Discharge Plan Triage Chief Complaint: Abn Labs ED Provider: Hbuer Foy Dx/Rx/DC Orders Prescriptions: No Action acetaminophen [Tylenol] 325 mg capsule 325 mg PO TID PRN (Reason: fever or pain) losartan 25 mg tablet 25 mg PO DAILY Patient Comments: TAKE 1 TABLET BY MOUTHCONCE DAILY IN THE MORNING montelukast [Singulair] 10 MG tablet 10 mg PO DAILY Patient Comments: lungs albuterol sulfate [Ventolin HFA] 1 INHALER inhaler 1 - 2 puff inhalation Q4H PRN PRN (Reason: Wheezing) Qty: 1 0RF Patient Comments: lungs, shortness of breath benzonatate 200 mg capsule 200 mg PO TID PRN Primary Care Provider: J Luis Mcgill Chi Referrals: J Luis Mcgill Chi, MD [Primary Care Provider] -
[2023-07-06 18:03] LABS: D-Dimer Quantitative (DVT/PE) 5.91 FEU/ug/m (0.27-0.49)
--- NOTE | 2023-07-06 18:04 | CT_ITS ---
INDICATION: Elevated D Dimer EXAMINATION: CTA Chest WO/W Contrast Injection TECHNIQUE: Helically acquired images were obtained of the chest following administration of IV contrast. A radiation dose optimization technique was used for this scan. 3D postprocessing images including MIPS were reviewed. IV Contrast dosage and agent: IV 100mL [id number] COMPARISON: 06/19/2023. FINDINGS: Lungs: Tiny focal area of consolidation in the lingula, slightly increased in size when compared to prior on 06/19/2023. Mediastinum: The heart is mildly enlarged. No mediastinal, hilar or axillary adenopathy. Moderate aortic arch and coronary artery calcifications. No obvious filling defect seen within the visualized pulmonary arteries. Pleura: Unremarkable Bones/Soft tissues: There are diffuse degenerative changes of the spine. Upper abdomen: No visualized abnormalities in the upper abdomen. CT/CTA Chest W/WO Contrast IMPRESSION: No evidence of acute pulmonary emboli to the segmental level. Tiny focal area of consolidation in the lingula, slightly increased in size when compared to prior on 06/19/2023. This most likely represents rounded atelectasis or scarring, however cannot rule out infection or malignancy. Recommend follow-up chest CT in 3 months to ensure stability or resolution. Electronically Signed: Long Juarez MD at 19:09 EDT ,
[2023-07-06 18:06] LABS: Anion Gap 7 (5-15); BUN 11 mg/dL (7-18); BUN/Creat Ratio 10.4 RATIO (10-20); Calcium,Total 9.1 mg/dL (8.5-10.1); Chloride 105 mmol/L (98-107); Creatinine, Serum 1.06 mg/dL (0.70-1.30); EST Glomerular Filtration Rate 71 mL/min (>60); Est Glom Filt Rate - Afr Amer 85 mL/min (>60); Glucose 129 mg/dL (74-106); Potassium 4.2 mmol/L (3.5-5.1); Sodium Level 138 mmol/L (136-145); Troponin-I HS 175 pg/mL (3.0-78.0)
[2023-07-06 19:03] VITALS: BP 155/89; PULSE 77; RESP 20; O2SAT 95
[2023-07-06] MEDS: Enoxaparin 80 MG/0.8 ML Syringe 70 MG SC (19:38)
--- NOTE | 2023-07-06 19:39 | HP.PCM.HOS_ITS ---
HPI - General General Date of Admission: 07/06/23 HPI Narrative BOBY VAN, is a 83 M who presents to the hospital because of an elevated troponin. He denies any chest pain today however on the eighth of this month he did have an episode of chest pain he is also having shortness of breath. He says that the shortness of breath started before the chest pain as he had COVID about a month ago he does have a history of asthma. The chest pain was more on the right side than on the left and he denies any lightheadedness or dizziness. No recent leg swelling, CT of the chest in the ED was normal. Troponin was little bit more elevated than it was as an outpatient, it went from 163 this morning to 175. No hypoxia. He does have an appointment with pulmonology in July because of his shortness of breath since COVID. The ED physician was able to discuss the case with cardiology who recommended a dose of therapeutic Lovenox this evening and the stress test tomorrow morning. [facility] Medical History Asthma Benign prostatic hyperplasia without urinary obstruction Cervical radiculopathy Cervical strain Cubital tunnel syndrome on left CVA (cerebral vascular accident) Diverticulitis Syncope and collapse Home Medications albuterol sulfate 90 mcg/actuation aerosol inhaler (Ventolin HFA) 1 - 2 puff inhalation Q4H PRN PRN Wheezing ##1 05/02/14 [Rx Last Taken Unknown] montelukast 10 mg tablet (Singulair) 10 mg PO DAILY 05/02/14 [History Last Taken 07/05/23] acetaminophen 325 mg capsule (Tylenol) 325 mg PO TID PRN fever or pain 11/20/21 [History Last Taken Unknown] losartan 25 mg tablet 25 mg PO DAILY 11/20/21 [History Last Taken 07/05/23] baclofen 10 mg tablet 10 mg PO DAILY 07/06/23 [History Last Taken Unknown] benzonatate 200 mg capsule 200 mg PO TID PRN cough 07/06/23 [History Last Taken Unknown] naproxen 250 mg tablet 250 mg PO BID 07/06/23 [History Last Taken Unknown] pantoprazole 40 mg tablet,delayed release 40 mg PO DAILY 07/06/23 [History Last Taken Unknown] prednisone 10 mg tablet 10 mg PO BID 07/06/23 [History Last Taken Unknown] Allergy/AdvReac Type Severity Reaction Status Date / Time naproxen [From Aleve] Allergy Unknown palpitaions, Verified 07/06/23 17:04 SOB aspirin Allergy Shortness Verified 07/06/23 17:04 of breath ibuprofen Allergy Other Verified 07/06/23 17:04 Family History Sister Cancer Mother Bleeding disorder Surgical History History of appendectomy Myringotomy tube status (~2005) Social History (Updated 07/06/23 @ 20:52 by Katie Mar) household members: spouse [facility]: [facility] number of children: 2 pets and animals: Yes (maltise-dog) Smoking Status: Never smoker alcohol intake: never substance use type: does not use caffeine: Yes Type: coffee Number of servings: 2 ROS Constitutional Constitutional: Denies chills, fatigue, fever(s) or malaise Eyes Eyes: Denies blurry vision ENT HEENT: Denies headache(s) or nasal discharge Cardiovascular Cardiovascular: Denies chest pain, dyspnea on exertion or syncope Respiratory/Chest Respiratory/Chest: Reports shortness of breath at rest and shortness of breath with exertion; Denies cough Gastrointestinal Gastrointestinal: Denies constipation, diarrhea, nausea or vomiting Genitourinary Genitourinary: Denies dysuria Neurologic Neurologic: Denies focal weakness, numbness or tremor(s) Psychiatric Psychiatric: Denies anxiety or depression Vital Signs Vital Signs Vital Signs: 07/06/23 17:04 07/06/23 17:08 07/06/23 17:08 Temperature 97.3 F L Temperature Source Temporal Pulse Rate 54 L Respiratory Rate 18 Respiratory Effort Normal Non-Labored Respiratory Pattern Normal Blood Pressure 175/59 H Blood Pressure Mean 97 Pulse Ox 97 95 Oxygen Delivery Method Room Air Room Air 07/06/23 17:08 07/06/23 19:03 Temperature Temperature Source Pulse Rate 77 Respiratory Rate 18 20 H Respiratory Effort Respiratory Pattern Blood Pressure 155/89 H Blood Pressure Mean 111 Pulse Ox 95 95 Oxygen Delivery Method Room Air Room Air Weight Weight: 150 lb 8 oz Body Mass Index (BMI) 22.8 Physical Exam Narrative General: Alert, Oriented x3, Cooperative, No apparent distress HEENT: Atraumatic, PERRLA, EOMI, Normocephalic, hearing aids Oral: Moist Mucosa Neck: Supple, No JVD Lungs: Diminished, Normal air movement, No rhonchi, No wheeze, No rales Cardiovascular: Regular rate, Regular Rhythm, Normal S1, Normal S2, No murmurs Abdomen: Soft, Non Tender, Non-Distended, No Hepato-splenomegaly Extremities: No edema, Capillary Refill Less than 3 Seconds Skin: No rashes, No breakdown Musculoskeletal: No Tenderness to Palpation of Joints or Extremities Neurological: No focal neurological deficits, Motor Exam 5/5 strength throughout, Sensory exam intact to light touch and pain Psych/Mental Status: Normal Affect, Appropriate Results Lab / Micro Data 07/06/23 17:15 07/06/23 17:15 Labs: Laboratory Results - last 24 hr 07/06/23 17:15: WBC 7.8, RBC 4.90, Hgb 11.7 L, Hct 38.4 L, MCV 78.4 L, MCH 23.9 L, MCHC 30.5 L, RDW Std Deviation 48.5 H, RDW Coeff of Heriberto 17.2 H, Plt Count 339, MPV 10.3, Immature Gran % (Auto) 0.800, Neut % (Auto) 91.9 H, Lymph % (Auto) 5.2 L, [place] % (Auto) 1.5, Eos % (Auto) 0.3, Baso % (Auto) 0.3, Absolute Neuts (auto) 7.2, Absolute Lymphs (auto) 0.41 L, Nucleated RBC % 0, Differential Comment SEE COMMENT, Platelet Estimate ADEQUATE, RBC Morphology N CHROM, Anisocytosis RARE, Microcytosis RARE, D-Dimer Quant (PE/DVT) 5.91 H*, Sodium 138, Potassium 4.2, Chloride 105, Carbon Dioxide 26.0, Anion Gap 7, BUN 11, Creatinine 1.06, Estim Creat Clear Calc 49.20, Est GFR (MDRD) Af Amer 85, Est GFR (MDRD) Non-Af 71, BUN/Creatinine Ratio 10.4, Glucose 129 H, Calcium 9.1, Troponin I High Sens 175 H* Imaging Radiology Impression Chest CTA 07/06/23 18:04 IMPRESSION: No evidence of acute pulmonary emboli to the segmental level. Tiny focal area of consolidation in the lingula, slightly increased in size when compared to prior on 06/19/2023. This most likely represents rounded atelectasis or scarring, however cannot rule out infection or malignancy. Recommend follow-up chest CT in 3 months to ensure stability or resolution. Electronically Signed: Long Juarez MD at 19:09 EDT , Assessment & Plan Assessment/Plan (1) Chest pain: (2) Shortness of breath: PLAN: Plan 1. Shortness of breath and chest pain rule out/essential HTN ? His shortness of breath is likely related to the fact that he has asthma and was recently diagnosed with COVID about a month ago ? Will continue with the stress test in the morning ? Will consult cardiology ? Will trend troponins ? EKG is nonischemic ? She had an echo in 2021 with an EF of 60% ? Can resume his losartan 2. Asthma ? Stable, not in exacerbation ? Can continue with his home inhalers DVT: Therapeutic Lovenox one-time dose this evening 75 minutes was spent on direct patient care, including documentation as well as chart review and collaboration with colleagues Charges/Coding Visit Charges Inpatient E&M: 28444 Init Hosp L3
--- NOTE | 2023-07-06 20:00 | EKG12_ITS ---
Test Reason : AM EKG Blood Pressure : / mmHG Vent. Rate : 075 BPM Atrial Rate : 075 BPM P-R Int : 150 ms QRS Dur : 084 ms QT Int : 374 ms P-R-T Axes : 066 031 -56 degrees QTc Int : 417 ms Sinus rhythm with Premature supraventricular complexes T wave abnormality, consider inferior ischemia Abnormal ECG When compared with ECG of 06-JUL-2023 21:08, MANUAL COMPARISON REQUIRED, DATA IS UNCONFIRMED Confirmed by HIMANSHU MUNOZ, KARRIE ([id number]), supervising film or videotape editor LEONARDO REGALADO ([id number]) on 07/08/2023 6:52:30 AM Referred By: Confirmed By:KARRIE DOWNS MD
[2023-07-06 20:26] VITALS: BP 160/109; PULSE 80; RESP 20; TEMP 36.7; O2SAT 97
[2023-07-06 20:46] VITALS: BMI 22.3
[2023-07-06 20:47] VITALS: BP 175/81; PULSE 79; RESP 16; TEMP 36.8; O2SAT 97
[2023-07-06 22:19] LABS: Troponin-I HS 161 pg/mL (3.0-78.0)
[2023-07-07 02:45] VITALS: BP 151/86; PULSE 73; RESP 16; TEMP 36.3; O2SAT 99
--- NOTE | 2023-07-07 05:55 | ECHOD_ITS ---
Reason For Study: CHEST PAIN Procedure This was a 2D Doppler, Color Flow transthoracic echocardiogram. The study was technically difficult. Low windows for parasternals. Exam performed in department. Left Ventricle Normal LV size. Mild concentric left ventricular hypertrophy. Left ventricular systolic function is normal. The left ventricular ejection fraction is 70 %. Stage 1 diastolic dysfunction. No regional wall motion abnormalities noted. Right Ventricle Normal RV size. Normal systolic function. Atria Normal left atrium. Normal right atrium. Mitral Valve Normal mitral valve. Tricuspid Valve Normal tricuspid valve. Aortic Valve Trisinus/trileaflet aortic valve. Mild focal aortic valve calcification. Pulmonic Valve Normal pulmonic valve. Great Vessels Normal aortic root. The pulmonary artery is normal size. Inferior vena cava collapse with sniff. Pericardium/Pleural No pericardial effusion. MMode/2D Measurements & Calculations LVIDd: 3.8 cm IVSd: 1.3 cm LVOT diam: 2.1 cm LVIDs: 2.5 cm LVPWd: 1.2 cm LVOT area: 3.3 cm2 RVDd: 3.2 cm FS: 33.0 % Ao root diam: 3.4 cm LAV(MOD-bp): 38.8 ml LVAd ap4: 27.0 cm2 LAV(MOD-bp) Indexed: 21.9 ml/m2 LVLd ap4: 7.9 cm LAV(MOD-sp2): 53.0 ml EDV(MOD-sp4): 77.9 ml LAV(MOD-sp4): 27.9 ml EDV(sp4-el): 78.8 ml LVAs ap4: 12.6 cm2 LVLs ap4: 6.4 cm ESV(MOD-sp4): 21.6 ml ESV(sp4-el): 21.1 ml EF(MOD-sp4): 72.3 % EF(sp4-el): 73.2 % LVAd ap2: 23.5 cm2 SV(MOD-sp4): 56.3 ml SV(MOD-sp2): 38.6 ml LVLd ap2: 7.7 cm EDV(MOD-sp2): 58.8 ml EDV(sp2-el): 60.5 ml LVAs ap2: 12.2 cm2 LVLs ap2: 6.8 cm ESV(MOD-sp2): 20.1 ml ESV(sp2-el): 18.6 ml EF(MOD-sp2): 65.8 % SV(sp4-el): 57.7 ml LA dimension(2D): 3.1 cm LA A4 area: 12.9 cm2 RA A4 area: 10.9 cm2 TAPSE: 2.3 cm Time Measurements MV dec time: 0.18 sec Doppler Measurements & Calculations MV E max shilo: 74.3 cm/sec Lat Peak E' Shilo: 9.9 cm/sec Med Peak E' Shilo: 5.9 cm/sec MV A max shilo: 94.1 cm/sec E/E' lat: 7.5 E/E' med: 12.6 MV E/A: 0.79 Ao V2 max: 196.6 cm/sec LV V1 max: 103.1 cm/sec MV dec slope: 422.1 cm/sec2 Ao max P.5 mmHg LV V1 max P.3 mmHg Ao V2 mean: 130.1 cm/sec LV V1 mean P.4 mmHg Ao mean P.9 mmHg LV V1 mean: 74.3 cm/sec Ao V2 VTI: 41.0 cm LV V1 VTI: 21.8 cm AV (velocity ratio): 0.53 ARCHANA(I,D): 1.8 cm2 ARCHANA(V,D): 1.8 cm2 SV(LVOT): 73.2 ml PA V2 max: 107.8 cm/sec PA max PG (full): 1.1 mmHg ECHO/Echo Complete Interpretation Summary Normal LV size. Mild concentric left ventricular hypertrophy. Left ventricular systolic function is normal. The left ventricular ejection fraction is 70 %. Stage 1 diastolic dysfunction. Ordering Physician: Heriberto Grewal Referring Physician: J Luis Mcgill Chi Performed By: Vicki Kitchen RDCS
--- NOTE | 2023-07-07 05:55 | EKG12_ITS ---
Test Reason : ADMISSION EKG Blood Pressure : / mmHG Vent. Rate : 085 BPM Atrial Rate : 085 BPM P-R Int : 146 ms QRS Dur : 076 ms QT Int : 356 ms P-R-T Axes : 058 015 -44 degrees QTc Int : 423 ms Normal sinus rhythm ST & T wave abnormality, consider inferior ischemia Abnormal ECG When compared with ECG of 06-JUL-2023 17:17, MANUAL COMPARISON REQUIRED, DATA IS UNCONFIRMED Confirmed by HIMANSHU MUNOZ, KARRIE ([id number]), fashion editor LEONARDO REGALADO ([id number]) on 07/08/2023 6:52:45 AM Referred By: Confirmed By:KARRIE DOWNS MD
[2023-07-07 06:30] LABS: Absolute Lymphocyte Count 0.68 X10^3/uL (0.83-4.51); Basophil# 0.01 X10^3/uL; Basophil% 0.1 % (0-1); Hematocrit 34.2 % (40-54); Hemoglobin 10.3 g/dL (13.0-16.5); Lymphocyte # 0.68 X10^3/ul (0.83-4.51); Lymphocyte % 8.4 % (19-41); Mean Corp Hgb Conc 30.1 g/dL (32-36); Mean Corpuscular Hgb 23.3 pg (27.0-32.0); Mean Corpuscular Volume 77.2 fL (80-94); Mean Platelet Vol. 9.9 fl (6.2-12.0); Monocyte# 0.44 X10^3/uL; Monocyte% 5.4 % (0-10); NRBC Flagged by Analyzer 0 % (0-5); Neutrophil # 6.95 X10^3/uL (2.7-7.7); Neutrophil % 85.4 % (47-70); Platelet Count 283 K/mm3 (150-450); RBC Distribution Width SD 46.8 fl (35.1-43.9); Red Blood Count 4.43 M/mm3 (4.6-6.2); White Blood Count 8.1 K/mm3 (4.4-11.0)
[2023-07-07 06:32] VITALS: BP 149/97; PULSE 71; RESP 16; TEMP 36.4; O2SAT 98
[2023-07-07] MEDS: 0.9% Saline Lock 10 ML Syringe IV (06:34)
[2023-07-07] MEDS: Losartan Potassium 25 MG Tablet PO (06:47)
[2023-07-07 06:56] LABS: Anion Gap 4 (5-15); BUN 15 mg/dL (7-18); BUN/Creat Ratio 16.3 RATIO (10-20); Chloride 107 mmol/L (98-107); Creatinine, Serum 0.92 mg/dL (0.70-1.30); EST Glomerular Filtration Rate 83 mL/min (>60); Est Glom Filt Rate - Afr Amer 100 mL/min (>60); Glucose 143 mg/dL (74-106); Potassium 4.5 mmol/L (3.5-5.1); Sodium Level 138 mmol/L (136-145)
--- NOTE | 2023-07-07 07:59 | PN.HOSP_ITS ---
Reason for Visit Reason for Visit: Diagnoses Shortness of breath (07/06/23) Chest pain, unspecified (07/06/23) Subjective Subjective Feeling well. Denies chest pain. Objective Data Objective Data Vital Signs: Vital Signs Temp Pulse Resp BP Pulse Ox O2 Del Method 36.4 C L 71 16 149/97 H 98 Room Air 07/07/23 06:32 07/07/23 06:32 07/07/23 06:32 07/07/23 06:32 07/07/23 06:32 07/07/23 06:32 Oxygen Delivery Method Room Air Weight: 66.6 kg Body Mass Index (BMI) 22.3 Lab / Micro Data 07/07/23 06:10 07/07/23 06:10 Labs: Laboratory Results - last 24 hr 07/06/23 17:15: WBC 7.8, RBC 4.90, Hgb 11.7 L, Hct 38.4 L, MCV 78.4 L, MCH 23.9 L, MCHC 30.5 L, RDW Std Deviation 48.5 H, RDW Coeff of Heriberto 17.2 H, Plt Count 339, MPV 10.3, Immature Gran % (Auto) 0.800, Neut % (Auto) 91.9 H, Lymph % (Auto) 5.2 L, [place] % (Auto) 1.5, Eos % (Auto) 0.3, Baso % (Auto) 0.3, Absolute Neuts (auto) 7.2, Absolute Lymphs (auto) 0.41 L, Nucleated RBC % 0, Differential Comment SEE COMMENT, Platelet Estimate ADEQUATE, RBC Morphology N CHROM, A nisocytosis RARE, Microcytosis RARE, D-Dimer Quant (PE/DVT) 5.91 H*, Sodium 138, Potassium 4.2, Chloride 105, Carbon Dioxide 26.0, Anion Gap 7, BUN 11, Creatinine 1.06, Estim Creat Clear Calc 49.20, Est GFR (MDRD) Af Amer 85, Est GFR (MDRD) Non-Af 71, BUN/Creatinine Ratio 10.4, Glucose 129 H, Calcium 9.1, Troponin I High Sens 175 H* 07/06/23 21:29: Troponin I High Sens 161 H* 07/07/23 06:10: WBC 8.1, RBC 4.43 L, Hgb 10.3 L, Hct 34.2 L, MCV 77.2 L, MCH 23 .3 L, MCHC 30.1 L, RDW Std Deviation 46.8 H, RDW Coeff of Heriberto 17.0 H, Plt Count 283, MPV 9.9, Immature Gran % (Auto) 0.700, Neut % (Auto) 85.4 H, Lymph % (Auto) 8.4 L, [place] % (Auto) 5.4, Eos % (Auto) 0.0, Baso % (Auto) 0.1, Absolute Neuts (auto) 7.0, Absolute Lymphs (auto) 0.68 L, Nucleated RBC % 0, Sodium 138, Potassium 4.5, Chloride 107, Carbon Dioxide 27.0, Anion Gap 4 L, BUN 15, Creatinine 0.92, Estim Creat Clear Calc 55.30, Est GFR (MDRD) Af Amer 100, Est GFR (MDRD) Non-Af 83, BUN/Creatinine Ratio 16.3, Glucose 143 H, Calcium 9.0 Radiography Diagnostic Testing: Radiology Impression Chest CTA 07/06/23 18:04 IMPRESSION: No evidence of acute pulmonary emboli to the segmental level. Tiny focal area of consolidation in the lingula, slightly increased in size when compared to prior on 06/19/2023. This most likely represents rounded atelectasis or scarring, however cannot rule out infection or malignancy. Recommend follow-up chest CT in 3 months to ensure stability or resolution. Electronically Signed: Long Juarez MD at 19:09 EDT , Physical Exam Const alert and no apparent distress HEENT head/scalp atraumatic and moist oral mucous membranes Resp normal respiratory effort, no retractions, no use of accessory muscles and clear to auscultation bilaterally Cardio regular rate, regular rhythm, S1 normal heart sound and S2 normal heart sound GI normal to inspection, nondistended, normoactive bowel sounds, soft to palpation, non-tender and non-distended Neuro Sensorium / Orientation: awake and alert Assessment & Plan Assessment/Plan (1) Chest pain: (2) Shortness of breath: PLAN: Plan Unstable angina * trop up to 175, down to 161. * Stress test reported as normal by cardiology. * Likely atypical chest pain due to cough from COVID illness that he had about a month ago. No additional workup at this time. Discharge home. Chronic conditions: * Asthma? Stable, not in exacerbation? Can continue with his home inhalers DVT: Therapeutic Lovenox one-time dose this evening
[2023-07-07 10:40] VITALS: BP 145/112; PULSE 78; RESP 14; TEMP 36.5; O2SAT 100
--- NOTE | 2023-07-07 14:26 | DS.PCM_ITS ---
Providers Date of Admission: 07/06/23 Primary Care Physician: Dr. J Luis Mcgill MD Reason For Visit: CHEST PAIN Diagnosis Discharge Diagnosis (1) Chest pain: Status: Acute Code(s): R07.9 - Chest pain, unspecified (2) Shortness of breath: Status: Acute Code(s): R06.02 - Shortness of breath Plan Unstable angina * trop up to 175, down to 161. * Stress test reported as normal by cardiology. * Likely atypical chest pain due to cough from COVID illness that he had about a month ago. No additional workup at this time. Discharge home. Chronic conditions: * Asthma? Stable, not in exacerbation? Can continue with his home inhalers DVT: Therapeutic Lovenox one-time dose this evening Medications at Discharge Home Medications albuterol sulfate 90 mcg/actuation aerosol inhaler (Ventolin HFA) 1 - 2 puff inhalation Q4H PRN PRN Wheezing ##1 05/02/14 montelukast 10 mg tablet (Singulair) 10 mg PO DAILY 05/02/14 acetaminophen 325 mg capsule (Tylenol) 325 mg PO TID PRN fever or pain 11/20/21 losartan 25 mg tablet 25 mg PO DAILY 11/20/21 baclofen 10 mg tablet 10 mg PO DAILY 07/06/23 benzonatate 200 mg capsule 200 mg PO TID PRN cough 07/06/23 naproxen 250 mg tablet 250 mg PO BID 07/06/23 pantoprazole 40 mg tablet,delayed release 40 mg PO DAILY 07/06/23 prednisone 10 mg tablet 10 mg PO BID 07/06/23 Hospital Course Procedures Stress test Summary of Care Provided Minutes Spent on Discharge: 35 Hospital Course: Patient presented with chest pain. Troponins were mildly elevated with peak troponin of 175. Stress test was recommended by cardiology and was reported as normal. Chest pain is likely atypical probably due to costochondritis or muscular strain from recent COVID infection that may have caused persistent coughing afterwards. Patient is otherwise doing well will be discharged home. Weight / BMI Weight Weight: 66.6 kg Body Mass Index (BMI) 22.3 ABG / Lab / Microbiology Data 07/07/23 06:10 07/07/23 06:10 Laboratory: Laboratory Results - last 24 hr 07/06/23 17:15: WBC 7.8, RBC 4.90, Hgb 11.7 L, Hct 38.4 L, MCV 78.4 L, MCH 23.9 L, MCHC 30.5 L, RDW Std Deviation 48.5 H, RDW Coeff of Heriberto 17.2 H, Plt Count 339, MPV 10.3, Immature Gran % (Auto) 0.800, Neut % (Auto) 91.9 H, Lymph % (Auto) 5.2 L, [place] % (Auto) 1.5, Eos % (Auto) 0.3, Baso % (Auto) 0.3, Absolute Neuts (auto) 7.2, Absolute Lymphs (auto) 0.41 L, Nucleated RBC % 0, Differential Comment SEE COMMENT, Platelet Estimate ADEQUATE, RBC Morphology N CHROM, Anisocytosis RARE, Microcytosis RARE, D-Dimer Quant (PE/DVT) 5.91 H*, Sodium 138, Potassium 4.2, Chloride 105, Carbon Dioxide 26.0, Anion Gap 7, BUN 11, Creatinine 1.06, Estim Creat Clear Calc 49.20, Est GFR (MDRD) Af Amer 85, Est GFR (MDRD) Non-Af 71, BUN/Creatinine Ratio 10.4, Glucose 129 H, Calcium 9.1, Troponin I High Sens 175 H* 07/06/23 21:29: Troponin I High Sens 161 H* 07/07/23 06:10: WBC 8.1, RBC 4.43 L, Hgb 10.3 L, Hct 34.2 L, MCV 77.2 L, MCH 23.3 L, MCHC 30.1 L, RDW Std Deviation 46.8 H, RDW Coeff of Heriberto 17.0 H, Plt Count 283, MPV 9.9, Immature Gran % (Auto) 0.700, Neut % (Auto) 85.4 H, Lymph % (Auto) 8.4 L, [place] % (Auto) 5.4, Eos % (Auto) 0.0, Baso % (Auto) 0.1, Absolute Neuts (auto) 7.0, Absolute Lymphs (auto) 0.68 L, Nucleated RBC % 0, Sodium 138, Potassium 4.5, Chloride 107, Carbon Dioxide 27.0, Anion Gap 4 L, BUN 15, Creatinine 0.92, Estim Creat Clear Calc 55.30, Est GFR (MDRD) Af Amer 100, Est GFR (MDRD) Non-Af 83, BUN/Creatinine Ratio 16.3, Glucose 143 H, Calcium 9.0 Radiography Diagnostic Testing: Radiology Impression Chest CTA 07/06/23 18:04 IMPRESSION: No evidence of acute pulmonary emboli to the segmental level. Tiny focal area of consolidation in the lingula, slightly increased in size when compared to prior on 06/19/2023. This most likely represents rounded atelectasis or scarring, however cannot rule out infection or malignancy. Recommend follow-up chest CT in 3 months to ensure stability or resolution. Electronically Signed: Long Juarez MD at 19:09 EDT , D/C Instructions Discharge Diet: No restrictions Meaningful Use Info Meaningful Use Diagnoses (Choose all that apply): None applicable Discharge Plan Admission Admit Date/Time: 07/06/23 19:54 Primary Reason for Your Visit: Chest pain Attending Provider: Kelton Engle Primary Care Provider: J Luis Mcgill [employer] Providers: Heriberto Grewal Instructions Additional Instructions / Restrictions: You had chest pain. You did have some mildly elevated cardiac enzymes, however, your stress test was normal. Likely the chest pain was due to either muscle strain from coughing or possible irritation of your ribs, known as costochondritis. The symptoms should resolve over time. But if you do have [address] pain that is different associated with shortness of breath and nausea or getting hot and sweaty, notify your physician or return to the emergency room. Discharge Orders/Prescriptions Prescriptions: Continued acetaminophen [Tylenol] 325 mg capsule 325 mg PO TID PRN (Reason: fever or pain) losartan 25 mg tablet 25 mg PO DAILY Patient Comments: TAKE 1 TABLET BY MOUTHCONCE DAILY IN THE MORNING montelukast [Singulair] 10 MG tablet 10 mg PO DAILY Patient Comments: lungs albuterol sulfate [Ventolin HFA] 1 INHALER inhaler 1 - 2 puff inhalation Q4H PRN PRN (Reason: Wheezing) Qty: 1 0RF Patient Comments: lungs, shortness of breath benzonatate 200 mg capsule 200 mg PO TID PRN prednisone 10 mg tablet 10 mg PO BID Patient Comments: new prescription hasn't started yet naproxen 250 mg tablet 250 mg PO BID Patient Comments: new prescription hasn't started yet baclofen 10 mg tablet 10 mg PO DAILY Patient Comments: prescribed, hasn't started yet pantoprazole 40 mg tablet,delayed release (DR/EC) 40 mg PO DAILY Patient Comments: new prescription hasn't started yet Referrals / Follow Up: J Luis Mcgill Chi, MD [Primary Care Provider] - Within 2 Weeks Disposition Disposition (needs filled in before D/C Order can be placed): Home, Self Care Charges/Coding Visit Charges Inpatient E&M: 86896 Disch Hosp >30min
--- NOTE | 2023-07-07 14:40 | PHA.DC.MR.R ---
Pharmacy [place] Med Reconciliation Pharmacy Service has performed discharge medication reconciliation for this patient. The patient's discharge medication list was reviewed for discrepancies and discrepancies were resolved. Medications at Discharge Home Medications albuterol sulfate 90 mcg/actuation aerosol inhaler (Ventolin HFA) 1 - 2 puff inhalation Q4H PRN PRN Wheezing ##1 05/02/14 montelukast 10 mg tablet (Singulair) 10 mg PO DAILY 05/02/14 acetaminophen 325 mg capsule (Tylenol) 325 mg PO TID PRN fever or pain 11/20/21 losartan 25 mg tablet 25 mg PO DAILY 11/20/21 baclofen 10 mg tablet 10 mg PO DAILY 07/06/23 benzonatate 200 mg capsule 200 mg PO TID PRN cough 07/06/23 naproxen 250 mg tablet 250 mg PO BID 07/06/23 pantoprazole 40 mg tablet,delayed release 40 mg PO DAILY 07/06/23 prednisone 10 mg tablet 10 mg PO BID 07/06/23
--- NOTE | 2023-07-07 15:01 | CASEMGMT ---
Patient has order for discharge. RN CM in to discuss needs at discharge. Patient denies needs or help at discharge. Patient had no further questions or concerns.
--- NOTE | 2023-07-07 17:14 | STRESSREP ---
Stress Test Report Pharmacologic myocardial perfusion stress test. 83-year-old male with a history of chest pain Resting EKG demonstrates sinus rhythm with a rate of [address] depression is noted in the inferior leads with premature ventricular complex. Resting blood pressure is 118/78 mmHg. 0.4 mg of regadenoson was infused per usual protocol followed by rapid intravenous saline flush injection. Continuous EKG monitoring was performed. The maximum heart rate was 100 bpm which was 74% of max impacted heart rate the maximum workload was 1 metabolic equivalent. At rest there were downsloping ST or T wave changes noted which was suggestive but no diagnostic of ischemia and at peak infusion nonspecific ST changes were noted which did not meet the criteria for ischemia. No clinical angina is noted. The final blood pressure was 114/68 mmHg. Myocardial perfusion protocol. 10.8 mCi of technetium 99m sestamibi was injected at rest. 0.4 mg of regadenoson was infused per usual protocol. At peak infusion 33.3 mCi of technetium 99m sestamibi was injected stress images were obtained stress and rest images were reconstructed and compared in the short axis vertical long and horizontal long axis. Gated images were also obtained. Perfusion SPECT analysis: Review of the stress images demonstrate normal uptake of tracer noted in all areas of the myocardium. The resting images similar demonstrated normal uptake of tracer noted in all areas of the myocardium. No areas of reversibility are noted to suggest ischemia and no previous infarct is noted. Gated SPECT analysis: The gated ejection fraction is 60%. Conclusion: Normal pharmacologic myocardial perfusion stress test. Preserved ejection fraction.
== END 2023-07-07 14:29 | disposition home or self-care (01) ==
LOC: ED 18:25 → PCU 20:11
PROVIDERS: Admitting Provider Family Medicine; Emergency Provider Emergency Medicine; PCP Family Medicine Geriatric Medicine
DX: R07.89 Other chest pain (principal); I20.0 Unstable angina; R06.02 Shortness of breath; I49.3 Ventricular premature depolarization; Z86.16 Personal history of COVID-19; R94.31 Abnormal electrocardiogram [ECG] [EKG]; J45.909 Unspecified asthma, uncomplicated; Z79.899 Other long term (current) drug therapy; I70.0 Atherosclerosis of aorta; N40.0 Benign prostatic hyperplasia without lower urinary tract symptoms
CPT/HCPCS: 36415; 71275; 78452; 80048; 82550; 83874; 84484; 85025; 85379; 93005; 93017; 93306; 94760; 96372; 99221; 99284; A9500; Q9967; A4216; G0378; J2785

== ENCOUNTER → 2023-07-06 | Outpatient (CLI) | payer MEDICARE, SELFPAY ==
[2023-07-06 15:20] LABS: Absolute Lymphocyte Count 1.15 X10^3/uL (0.83-4.51); Absolute Neutrophil Count 5.5 X10^3/uL (2.0-7.7); Basophil# 0.04 X10^3/uL; Basophil% 0.5 % (0-1); Eosinophil# 0.14 X10^3/uL; Eosinophils% 1.9 % (0-5); Hemoglobin 10.7 g/dL (13.0-16.5); Lymphocyte # 1.15 X10^3/ul (0.83-4.51); Lymphocyte % 15.4 % (19-41); Mean Corp Hgb Conc 29.7 g/dL (32-36); Mean Corpuscular Hgb 23.5 pg (27.0-32.0); Mean Corpuscular Volume 79.1 fL (80-94); Mean Platelet Vol. 10.4 fl (6.2-12.0); Monocyte# 0.61 X10^3/uL; Monocyte% 8.2 % (0-10); NRBC Flagged by Analyzer 0 % (0-5); Neutrophil # 5.46 X10^3/uL (2.7-7.7); Neutrophil % 73.2 % (47-70); Platelet Count 316 K/mm3 (150-450); RBC Distribution Width CV 17.3 % (11.6-14.6); RBC Distribution Width SD 49.1 fl (35.1-43.9); Red Blood Count 4.55 M/mm3 (4.6-6.2); White Blood Count 7.5 K/mm3 (4.4-11.0)
[2023-07-06 16:12] LABS: Anion Gap 5 (5-15); BUN 9 mg/dL (7-18); BUN/Creat Ratio 9.4 RATIO (10-20); CPK Total, Creatine Kinase 34 U/L (39-308); Calcium,Total 8.9 mg/dL (8.5-10.1); Chloride 105 mmol/L (98-107); Creatinine, Serum 0.96 mg/dL (0.70-1.30); EST Glomerular Filtration Rate 79 mL/min (>60); Est Glom Filt Rate - Afr Amer 96 mL/min (>60); Glucose 110 mg/dL (74-106); Potassium 4.2 mmol/L (3.5-5.1); Sodium Level 138 mmol/L (136-145); Troponin-I HS 163 pg/mL (3.0-78.0)
[2023-07-08 04:07] LABS: Myoglobin, Serum 35 ng/mL (28-72)
== END | disposition home or self-care (01) ==
LOC: POLAB3 13:50
PROVIDERS: PCP Family Medicine Geriatric Medicine; Visit Provider Family Medicine Geriatric Medicine
DX: I10 Essential (primary) hypertension (principal)
CPT/HCPCS: 36415; 80048; 82550; 83874; 84484; 85025

== ENCOUNTER → 2023-07-08 | Outpatient (CLI) | payer MEDICARE, SELFPAY ==
--- NOTE | 2023-07-08 16:08 | RAD_ITS ---
INDICATION: VOMITING/FECAL IMPACTION/DYSPHAGIA COMPARISON: None. FINDINGS: 3 frontal views of the abdomen. Nonobstructive bowel gas pattern. No obvious free air. No definite suspicious calcifications. No mass appreciated. Streaky left lung base airspace disease. RAD/Abd Inc Decub and/or Erect IMPRESSION: Unremarkable abdomen. Electronically Signed: Axel Archibald MD at 5:54 EDT ,
== END | disposition home or self-care (01) ==
LOC: RAD 16:04
PROVIDERS: PCP Family Medicine Geriatric Medicine; Referring Provider Family Medicine Geriatric Medicine; Visit Provider Family Medicine Geriatric Medicine
DX: R11.10 Vomiting, unspecified (principal); K56.41 Fecal impaction; R13.10 Dysphagia, unspecified
CPT/HCPCS: 74019

== ENCOUNTER 2023-07-15 16:54 | Emergency (ER) | payer MEDICARE, SELFPAY ==
[2023-07-15 16:55] VITALS: BP 175/113; PULSE 84; RESP 16; TEMP 36.7; O2SAT 100; BMI 22.8
--- NOTE | 2023-07-15 17:13 | EKG12_ITS ---
Test Reason : CP Blood Pressure : / mmHG Vent. Rate : 082 BPM Atrial Rate : 082 BPM P-R Int : 152 ms QRS Dur : 078 ms QT Int : 342 ms P-R-T Axes : 061 031 -52 degrees QTc Int : 399 ms Sinus rhythm with sinus arrhythmia with occasional Premature ventricular complexes ST & T wave abnormality, consider inferolateral ischemia Abnormal ECG Confirmed by KAYLA MUNOZ, LEIF ([id number]), fan mail editor GARRETT CANDELARIA ([id number]) on 07/20/2023 10:07:04 AM Referred By: Confirmed By:ASHLEY GARZA MD
--- NOTE | 2023-07-15 17:13 | ED.VIS.CHEST ---
HPI History of Present Illness Chief Complaint: Chest Pain [facility] Medical History Asthma Benign prostatic hyperplasia without urinary obstruction Cervical radiculopathy Cervical strain Cubital tunnel syndrome on left CVA (cerebral vascular accident) Diverticulitis Syncope and collapse Home Medications albuterol sulfate 90 mcg/actuation aerosol inhaler (Ventolin HFA) 1 - 2 puff inhalation Q4H PRN PRN Wheezing ##1 05/02/14 [Rx Last Taken Unknown] montelukast 10 mg tablet (Singulair) 10 mg PO DAILY 05/02/14 [History Last Taken 07/05/23] acetaminophen 325 mg capsule (Tylenol) 325 mg PO TID PRN fever or pain 11/20/21 [History Last Taken Unknown] losartan 25 mg tablet 25 mg PO DAILY 11/20/21 [History Last Taken 07/05/23] baclofen 10 mg tablet 10 mg PO DAILY 07/06/23 [History Last Taken Unknown] benzonatate 200 mg capsule 200 mg PO TID PRN cough 07/06/23 [History Last Taken Unknown] naproxen 250 mg tablet 250 mg PO BID 07/06/23 [History Last Taken Unknown] pantoprazole 40 mg tablet,delayed release 40 mg PO DAILY 07/06/23 [History Last Taken Unknown] prednisone 10 mg tablet 10 mg PO BID 07/06/23 [History Last Taken Unknown] Allergy/AdvReac Type Severity Reaction Status Date / Time naproxen [From Aleve] Allergy Unknown palpitaions, Verified 07/15/23 16:58 SOB aspirin Allergy Shortness Verified 07/15/23 16:58 of breath ibuprofen Allergy Other Verified 07/15/23 16:58 Family History Sister Cancer Mother Bleeding disorder Surgical History History of appendectomy Myringotomy tube status (~2005) Social History (Updated 07/06/23 @ 20:52 by Katie Mar) household members: spouse [facility] number of children: 2 pets and animals: Yes (maltise-dog) Smoking Status: Never smoker alcohol intake: never substance use type: does not use caffeine: Yes Type: coffee Number of servings: 2 EXAM Physical Exam Const Vital Signs: 07/15/23 16:55 07/15/23 17:13 07/15/23 17:13 Temperature 98.1 F Temperature Source Temporal Pulse Rate 84 Respiratory Rate 16 Respiratory Effort Normal Non-Labored Blood Pressure 175/113 H Blood Pressure Mean 133 Pulse Ox 100 Oxygen Delivery Method Room Air Room Air 07/15/23 17:55 07/15/23 19:00 Temperature Temperature Source Pulse Rate 77 74 Respiratory Rate 17 19 H Respiratory Effort Blood Pressure 122/70 H 117/79 Blood Pressure Mean 87 91 Pulse Ox 97 98 Oxygen Delivery Method Room Air Room Air [facility] Narrative Medical decision making narrative: HISTORY OF PRESENT ILLNESS: 83-year-old male here with concern for chest pain. Notes chest pain that began this afternoon. Is since resolved. It is sharp. It is not radiating. No pressure. Nonexertional. No lower extremity edema. No vomiting. No cough. The patient denies recent surgery in the last 4 weeks or immobilization in the last 3 days, denies previous diagnosis of DVT or PE, hemoptysis, unilateral leg swelling or malignancy with treatment the last 6 months or palliative. No estrogen use noted. REVIEW OF SYSTEMS: Pertinent positives: Chest pain Pertinent negatives: Shortness of breath, cough, leg swelling PHYSICAL EXAM: Nursing triage notes reviewed, Vital signs reviewed Constitutional: please see [facility] HENT: MMM Eyes: Pupils equal round and reactive to light, Extraocular muscles intact Neck: No stridor, no JVD, full neck ROM Lungs: Clear to auscultation, No wheezing or rales. No increased work of breathing, no conversational dyspnea, no accessory muscle use, no nasal flaring. No respiratory distress noted Heart: Regular rate and rhythm, No murmurs, No rubs and No gallops, 2+ distal pulses (radial, femoral, posterior tibial) in all extremities Abdomen: Soft, there is no tenderness, rigidity, rebound or guarding, no obvious peritoneal signs, no palpable pulsatile abdominal masses, no auscultated abdominal bruit : No CVAT Extremities: No edema Neuro: No focal neurological deficits, cranial nerves II through XII intact, 5/5 strength in all extremities. Intact sensation to light touch in all extremities, 2+ reflexes bilateral patella tendons. Normal gait. No ataxia. Skin: No rash or lesions noted MEDICAL DECISION MAKING: Chief Complaint: Chest pain External records reviewed: Prior imaging reviewed: CTA of the chest from shows no evidence of PE. Recent admission on 07/06/2023 until 07/07/2023 for chest pain, elevated troponin. Evaluated by cardiology at that time. Patient underwent stress test that time was reported as normal. He was discharged. Factors affecting care: Hypertension, GERD, NSTEMI, asthma Social determinants of health: none History obtained from others: none Consults: none MDM Narrative: Patient was initially hypertensive otherwise hemodynamically stable afebrile nontoxic-appearing. Exam without focal cardiopulmonary normalities. I considered the following differential diagnosis: ACS, arrhythmia, anemia, electrolyte disturbance, PE, dissection While I considered PE I thought this was less likely given the patient is low risk Wells score While I considered aortic dissection I think this is less likely given symmetric pulses, lack of focal neurologic deficits or symptomatology that is consistent with aortic dissection I performed a broad lab and imaging workup to further elucidate the etiology the patient complaints. Will treat the patient initially with empiric aspirin. Noted patient allergy to aspirin we will hold at this time. ALL IMAGES (IF OBTAINED) HAVE BEEN PERSONALLY REVIEWED AND INTERPRETED BY MYSELF. EKG with normal sinus rhythm, normal axis, normal intervals, no STEMI, occasional PVCs CBC with no leukocytosis, mild anemia, no thrombocytopenia High-sensitivity troponin is negative, no evidence of myocardial ischemia x 2 BMP without evidence of significant electrolyte abnormalities, no anion gap, no acute kidney injury. I have personally reviewed the patient's chest x-ray. Chest x-ray is unremarkable for pulmonary edema, pneumothorax, pneumonia or focal cardiopulmonary abnormality. The synthesis of the patient's history, physical exam, labs images suggest no acute inflammatory etiology. The etiology of his complaint remains unclear however his workup was not consistent with a life or limb threatening process. Is appropriate for discharge home. I consider escalating patient's care to admission observation however thought this was not necessary at this time and may be counterproductive and/or carry more risk and less benefit than discharge. The patient and/or family, caregivers express understanding. The patient and/or family, caregivers agrees with the plan. Shared decision making: I will have a discussion with the patient and or visitors regarding risk/benefits of further testing or admission. They will be made aware of of the risk/benefits inherent in this decision they will be given the opportunity to voice understanding. Total critical care time today provided was at least 0 minutes. This excludes separately billable procedures. Critical care time (if documented) is secondary to the patient having high probability of clinically significant/life threatening deterioration in the patient's condition which required my urgent intervention. Impression: 1. Chest pain 2. Anemia Dispo: Discharge This note was generated with [employer] dictation software. It may contain incorrect words, spelling, and punctuation that were not noted in review of the chart prior to signing. Lab Data Labs: Laboratory Results - last 24 hr 07/15/23 07/15/23 17:10 19:20 WBC 10.1 RBC 5.06 Hgb 11.8 L Hct 39.8 L MCV 78.7 L MCH 23.3 L MCHC 29.6 L RDW Std Deviation 48.7 H RDW Coeff of Heriberto 17.1 H Plt Count 474 H MPV 9.9 Immature Gran % (Auto) 3.000 H Neut % (Auto) 65.7 Lymph % (Auto) 18.5 L [place] % (Auto) 10.2 H Eos % (Auto) 2.0 Baso % (Auto) 0.6 Absolute Neuts (auto) 6.7 Absolute Lymphs (auto) 1.87 Nucleated RBC % 0 Sodium 139 Potassium 3.8 Chloride 107 Carbon Dioxide 27.0 Anion Gap 5 BUN 13 Creatinine 0.98 Estim Creat Clear Calc 53.03 Est GFR (MDRD) Af Amer 93 Est GFR (MDRD) Non-Af 77 BUN/Creatinine Ratio 13.3 Glucose 108 H Calcium 9.1 Troponin I High Sens 35 38 Radiography Diagnostic Testing: Clinical Impression(s) from Imaging Studies Chest X-Ray 07/15/23 17:25 IMPRESSION: No radiographic evidence of acute cardiopulmonary disease. Electronically Signed: Gelacio Alberto MD at 18:00 EDT , Discharge Plan Triage Chief Complaint: Chest Pain ED Provider: Garret Leonardo Dx/Rx/DC Orders Prescriptions: No Action acetaminophen [Tylenol] 325 mg capsule 325 mg PO TID PRN (Reason: fever or pain) losartan 25 mg tablet 25 mg PO DAILY Patient Comments: TAKE 1 TABLET BY MOUTHCONCE DAILY IN THE MORNING montelukast [Singulair] 10 MG tablet 10 mg PO DAILY Patient Comments: lungs albuterol sulfate [Ventolin HFA] 1 INHALER inhaler 1 - 2 puff inhalation Q4H PRN PRN (Reason: Wheezing) Qty: 1 0RF Patient Comments: lungs, shortness of breath benzonatate 200 mg capsule 200 mg PO TID PRN prednisone 10 mg tablet 10 mg PO BID Patient Comments: new prescription hasn't started yet naproxen 250 mg tablet 250 mg PO BID Patient Comments: new prescription hasn't started yet baclofen 10 mg tablet 10 mg PO DAILY Patient Comments: prescribed, hasn't started yet pantoprazole 40 mg tablet,delayed release (DR/EC) 40 mg PO DAILY Patient Comments: new prescription hasn't started yet Primary Care Provider: J Luis Mcgill Chi Referrals: J Luis Mcgill Chi, MD [Primary Care Provider] -
--- NOTE | 2023-07-15 17:25 | RAD_ITS ---
EXAM: XR CHEST, 1 VIEW CLINICAL INDICATION: chest pain TECHNIQUE: Frontal view of the chest. COMPARISON: 06/19/2023 FINDINGS: LUNGS AND PLEURAL SPACES: Unremarkable. No consolidation or edema. No pneumothorax. No effusion. HEART: Unremarkable. Cardiac silhouette not enlarged. MEDIASTINUM: Central airways and mediastinal contour are unremarkable. BONES/JOINTS: Unremarkable. No acute fracture. SOFT TISSUES: Unremarkable. RAD/Chest 1 View (Portable) IMPRESSION: No radiographic evidence of acute cardiopulmonary disease. Electronically Signed: Gelacio Alberto MD at 18:00 EDT ,
[2023-07-15 17:30] LABS: Absolute Lymphocyte Count 1.87 X10^3/uL (0.83-4.51); Absolute Neutrophil Count 6.7 X10^3/uL (2.0-7.7); Basophil# 0.06 X10^3/uL; Basophil% 0.6 % (0-1); Hematocrit 39.8 % (40-54); Hemoglobin 11.8 g/dL (13.0-16.5); Lymphocyte # 1.87 X10^3/ul (0.83-4.51); Lymphocyte % 18.5 % (19-41); Mean Corp Hgb Conc 29.6 g/dL (32-36); Mean Corpuscular Hgb 23.3 pg (27.0-32.0); Mean Corpuscular Volume 78.7 fL (80-94); Mean Platelet Vol. 9.9 fl (6.2-12.0); Monocyte# 1.03 X10^3/uL; Monocyte% 10.2 % (0-10); NRBC Flagged by Analyzer 0 % (0-5); Neutrophil # 6.67 X10^3/uL (2.7-7.7); Neutrophil % 65.7 % (47-70); Platelet Count 474 K/mm3 (150-450); RBC Distribution Width CV 17.1 % (11.6-14.6); RBC Distribution Width SD 48.7 fl (35.1-43.9); Red Blood Count 5.06 M/mm3 (4.6-6.2); White Blood Count 10.1 K/mm3 (4.4-11.0)
[2023-07-15 17:39] LABS: Anion Gap 5 (5-15); BUN 13 mg/dL (7-18); BUN/Creat Ratio 13.3 RATIO (10-20); Calcium,Total 9.1 mg/dL (8.5-10.1); Chloride 107 mmol/L (98-107); Creatinine, Serum 0.98 mg/dL (0.70-1.30); EST Glomerular Filtration Rate 77 mL/min (>60); Est Glom Filt Rate - Afr Amer 93 mL/min (>60); Estimated Creatinine Clearance 53.03 ml/min; Glucose 108 mg/dL (74-106); Potassium 3.8 mmol/L (3.5-5.1); Sodium Level 139 mmol/L (136-145); Troponin-I HS (w/2H Reflex) 35 pg/mL (3.0-78.0)
[2023-07-15 17:55] VITALS: BP 122/70; PULSE 77; RESP 17; O2SAT 97
[2023-07-15 19:00] VITALS: BP 117/79; PULSE 74; RESP 19; O2SAT 98
[2023-07-15 19:17] LABS: Reflex Troponin-HS? (from REC) Y
[2023-07-15 19:48] LABS: Troponin-I HS 38 pg/mL (3.0-78.0)
[2023-07-15 20:00] VITALS: BP 121/82; PULSE 74; RESP 16; O2SAT 97
[2023-07-15 21:05] VITALS: BP 121/82; PULSE 74; RESP 16; TEMP 36.9; O2SAT 97
== END 2023-07-15 20:59 | disposition home or self-care (01) ==
PROVIDERS: Emergency Provider Emergency Medicine; PCP Family Medicine Geriatric Medicine; Visit Provider Emergency Medicine
DX: R07.9 Chest pain, unspecified (principal); J45.909 Unspecified asthma, uncomplicated; D64.9 Anemia, unspecified; I10 Essential (primary) hypertension; K21.9 Gastro-esophageal reflux disease without esophagitis; Z79.899 Other long term (current) drug therapy; Z79.52 Long term (current) use of systemic steroids
CPT/HCPCS: 71045; 80048; 84484; 85025; 93005; 99284; A4216

== ENCOUNTER → 2023-07-16 | Outpatient (CLI) | payer MEDICARE, SELFPAY ==
--- NOTE | 2023-07-16 09:27 | RAD_ITS ---
STUDY: X-RAY - ESOPHAGUS (BARIUM SWALLOW) WITH FLUOROSCOPY REASON FOR EXAM: Male, 83 years old. DYSPHAGIA TECHNIQUE: 15 view(s) of the esophagus were obtained following swallowing of barium. FLUOROSCOPY TIME (if supplied): (42 seconds) minutes/seconds. 7.89 mGy COMPARISON: None. FINDINGS: There is no demonstrated esophageal foreign body. There is no demonstrated stricture or mucosal abnormality. Small sliding hiatal hernia without gastroesophageal reflux. The patient ingested a 12 mm tablet of barium without any difficulty. Normal visualized aortic arch and descending thoracic aorta. Normal visualized pulmonary parenchyma. Normal visualized osseous structures of the thorax. RAD/Esophagus Dual Contrast IMPRESSION: Small sliding hiatal hernia without gastroesophageal reflux. The patient ingested a 12 mm tablet of barium without any issue. Electronically Signed: Sean Pace MD at 15:14 EDT ,
== END | disposition home or self-care (01) ==
PROVIDERS: PCP Family Medicine Geriatric Medicine; Referring Provider Family Medicine Geriatric Medicine; Visit Provider Family Medicine Geriatric Medicine
DX: R11.10 Vomiting, unspecified (principal); K56.41 Fecal impaction; R13.10 Dysphagia, unspecified
CPT/HCPCS: 74221

== ENCOUNTER → 2024-01-14 | Outpatient (CLI) | payer MEDICARE, SELFPAY | END | disposition home or self-care (01) | LOC: POLAB3 15:56 | PROVIDERS: PCP Family Medicine Geriatric Medicine; Visit Provider Family Medicine Geriatric Medicine | DX: R68.83 Chills (without fever) (principal) | CPT/HCPCS: 87631 ==

== ENCOUNTER → 2024-01-27 | Outpatient (CLI) | payer MEDICARE, SELFPAY | END | disposition home or self-care (01) | LOC: PSN 07:28 | PROVIDERS: PCP Family Medicine Geriatric Medicine; Referring Provider Family Medicine Geriatric Medicine; Visit Provider Family Medicine Geriatric Medicine | DX: R20.0 Anesthesia of skin (principal) | CPT/HCPCS: 95886; 95912 ==

== ENCOUNTER → 2024-02-12 | Outpatient (CLI) | payer MEDICARE, SELFPAY ==
[2024-02-12 11:35] LABS: Absolute Lymphocyte Count 1.24 X10^3/uL (0.83-4.51); Absolute Neutrophil Count 10.8 X10^3/uL (2.0-7.7); Basophil# 0.03 X10^3/uL; Basophil% 0.2 % (0-1); Hematocrit 38.4 % (40-54); Hemoglobin 11.4 g/dL (13.0-16.5); Lymphocyte # 1.24 X10^3/ul (0.83-4.51); Lymphocyte % 9.2 % (19-41); Mean Corp Hgb Conc 29.7 g/dL (32-36); Mean Corpuscular Hgb 22.3 pg (27.0-32.0); Mean Corpuscular Volume 75.1 fL (80-94); Mean Platelet Vol. 9.3 fl (6.2-12.0); Monocyte# 1.29 X10^3/uL; Monocyte% 9.5 % (0-10); NRBC Flagged by Analyzer 0 % (0-5); Neutrophil # 10.81 X10^3/uL (2.7-7.7); Platelet Count 481 K/mm3 (150-450); RBC Distribution Width CV 16.8 % (11.6-14.6); RBC Distribution Width SD 44.9 fl (35.1-43.9); Red Blood Count 5.11 M/mm3 (4.6-6.2); White Blood Count 13.5 K/mm3 (4.4-11.0)
[2024-02-12 12:09] LABS: Vitamin D,25 Hydroxy 12.5 ng/mL
[2024-02-12 12:16] LABS: ALB/GLOB Ratio 1.1 RATIO (0.9-2.4); AST(SGOT) 14 U/L (15-37); Alanine Aminotransfer ALT/SGPT 15 U/L (16-61); Albumin, Serum 3.7 g/dL (3.2-5.0); Alkaline Phosphatase 128 U/L (45-117); Anion Gap 6 (5-15); BUN 15 mg/dL (7-18); BUN/Creat Ratio 13.8 RATIO (10-20); Calcium,Total 8.8 mg/dL (8.5-10.1); Chloride 108 mmol/L (98-107); Creatinine, Serum 1.09 mg/dL (0.70-1.30); EST Glomerular Filtration Rate 68 mL/min (>60); Est Glom Filt Rate - Afr Amer 83 mL/min (>60); Globulin 3.5 g/dL (2.2-4.2); Glucose 116 mg/dL (74-106); Potassium 3.6 mmol/L (3.5-5.1); Protein, Total 7.2 g/dL (6.4-8.2); Sodium Level 140 mmol/L (136-145)
== END | disposition home or self-care (01) ==
PROVIDERS: PCP Family Medicine Geriatric Medicine; Visit Provider Family Medicine Geriatric Medicine
DX: I10 Essential (primary) hypertension (principal); E55.9 Vitamin D deficiency, unspecified
CPT/HCPCS: 36415; 80053; 82306; 84443; 85025

== ENCOUNTER → 2024-02-22 | Outpatient (CLI) | payer MEDICARE, SELFPAY ==
[2024-02-22 11:47] LABS: Absolute Lymphocyte Count 0.99 X10^3/uL (0.83-4.51); Absolute Neutrophil Count 8.5 X10^3/uL (2.0-7.7); Basophil# 0.08 X10^3/uL; Basophil% 0.7 % (0-1); Eosinophils% 1.8 % (0-5); Hematocrit 37.6 % (40-54); Lymphocyte # 0.99 X10^3/ul (0.83-4.51); Lymphocyte % 9.1 % (19-41); Mean Corp Hgb Conc 29.3 g/dL (32-36); Mean Corpuscular Hgb 22.4 pg (27.0-32.0); Mean Corpuscular Volume 76.4 fL (80-94); Mean Platelet Vol. 9.5 fl (6.2-12.0); Monocyte# 0.94 X10^3/uL; Monocyte% 8.6 % (0-10); NRBC Flagged by Analyzer 0 % (0-5); Neutrophil # 8.51 X10^3/uL (2.7-7.7); Neutrophil % 78.3 % (47-70); Platelet Count 373 K/mm3 (150-450); RBC Distribution Width CV 17.6 % (11.6-14.6); Red Blood Count 4.92 M/mm3 (4.6-6.2); White Blood Count 10.9 K/mm3 (4.4-11.0)
[2024-02-22 12:12] LABS: Anion Gap 5 (5-15); BUN 15 mg/dL (7-18); CPK Total, Creatine Kinase 36 U/L (39-308); Calcium,Total 9.1 mg/dL (8.5-10.1); Chloride 107 mmol/L (98-107); EST Glomerular Filtration Rate 75 mL/min (>60); Est Glom Filt Rate - Afr Amer 91 mL/min (>60); Glucose 109 mg/dL (74-106); Potassium 4.1 mmol/L (3.5-5.1); Sodium Level 140 mmol/L (136-145); Troponin-I HS 15 pg/mL (3.0-78.0)
[2024-02-23 04:07] LABS: Myoglobin, Serum 33 ng/mL (28-72)
== END | disposition home or self-care (01) ==
PROVIDERS: PCP Family Medicine Geriatric Medicine; Visit Provider Family Medicine Geriatric Medicine
DX: I10 Essential (primary) hypertension (principal); R07.9 Chest pain, unspecified
CPT/HCPCS: 36415; 80048; 82550; 83874; 84484; 85025

== ENCOUNTER → 2024-03-08 | Outpatient (CLI) | payer MEDICARE, SELFPAY ==
--- NOTE | 2024-03-08 17:47 | STRESSREP ---
Stress Test Report Pharmacologic myocardial perfusion stress test. 84-year-old man with a history of chest pain Resting EKG demonstrates sinus rhythm with a rate of 67 bpm. Resting blood pressure is 146/90 mmHg. 0.4 mg of regadenoson was infused per usual protocol followed by rapid intravenous saline flush injection. Continuous EKG monitoring was performed. The maximum heart rate was 88 bpm which was 65% of max impacted heart rate the maximum workload was 1 metabolic equivalent. At rest there were no ST or T wave changes noted to suggest ischemia and at peak infusion nonspecific ST changes were noted which did not meet the criteria for ischemia. No clinical angina is noted. The final blood pressure was 158/71 mmHg. Myocardial perfusion protocol. 10.9 mCi of technetium 99m sestamibi was injected at rest. 0.4 mg of regadenoson was infused per usual protocol. At peak infusion 36 mCi of technetium 99m sestamibi was injected stress images were obtained stress and rest images were reconstructed and compared in the short axis vertical long and horizontal long axis. Gated images were also obtained. Perfusion SPECT analysis: Review of the stress images demonstrate normal uptake of tracer noted in all areas of the myocardium. The resting images similar demonstrated normal uptake of tracer noted in all areas of the myocardium. No areas of reversibility are noted to suggest ischemia and no previous infarct is noted. Gated SPECT analysis: The gated ejection fraction is 64%. Conclusion: Normal pharmacologic myocardial perfusion stress test. Preserved ejection fraction.
== END | disposition home or self-care (01) ==
LOC: CVS 06:55
PROVIDERS: PCP Family Medicine Geriatric Medicine; Referring Provider Family Medicine Geriatric Medicine; Visit Provider Family Medicine Geriatric Medicine
DX: R07.9 Chest pain, unspecified (principal)
CPT/HCPCS: 78452; 93017; A9500; A4216; J2785

== ENCOUNTER → 2024-04-25 | Outpatient (CLI) | payer MEDICARE, SELFPAY ==
--- NOTE | 2024-04-25 10:15 | MRI_ITS ---
PROCEDURE: BRAIN WITHOUT CONTRAST REASON FOR EXAM: Numbness/tingling. TECHNIQUE: Multiplanar, multisequence MRI of the brain without intravenous gadolinium-based contrast. COMPARISON: 01/01/2022 MRI. FINDINGS: Ventricles are midline in position. Moderate global parenchymal atrophy. Moderate chronic microvascular ischemia. Mildly increased DWI signal within the central nina without decreased ADC signal favored to represent T2 shine through. No evidence of acute hemorrhage. The paranasal sinuses are clear. MRI/Brain without Contrast IMPRESSION: Increased DWI signal within the nina favoring T2 shine through. Correlate with neurological exam to exclude acute infarction. Parenchymal atrophy and chronic microvascular ischemia. Reading Location: [id number]
== END | disposition home or self-care (01) ==
PROVIDERS: PCP Family Medicine Geriatric Medicine; Referring Provider Family Medicine Geriatric Medicine; Visit Provider Family Medicine Geriatric Medicine
DX: R20.0 Anesthesia of skin (principal)
CPT/HCPCS: 70551

== ENCOUNTER → 2024-05-09 | Outpatient (CLI) | payer MEDICARE, SELFPAY | END | disposition home or self-care (01) | LOC: PSN 11:51 | PROVIDERS: PCP Family Medicine Geriatric Medicine; Referring Provider Family Medicine Geriatric Medicine; Visit Provider Family Medicine Geriatric Medicine | DX: R68.83 Chills (without fever) (principal) | CPT/HCPCS: 87631 ==

== ENCOUNTER → 2024-05-18 | Outpatient (CLI) | payer MEDICARE, SELFPAY ==
--- NOTE | 2024-05-18 08:57 | ECHOD_ITS ---
Reason For Study Reason For Study: CHEST PAIN Procedure This was a 2D Doppler, Color Flow transthoracic echocardiogram. Exam performed in department. Left Ventricle Normal LV size. The estimated ejection fraction is 65 %. No evidence for diastolic dysfunction. No regional wall motion abnormalities noted. Right Ventricle Normal RV size. Normal systolic function. Atria The left and right atria are normal. No doppler evidence for ASD. Mitral Valve There is no mitral valve stenosis. Trivial mitral valve insufficiency. Tricuspid Valve There is no tricuspid stenosis. No tricuspid valve insufficiency. Aortic Valve Trisinus/trileaflet aortic valve. Aortic sclerosis, no stenosis. There is no aortic stenosis. No aortic valve insufficiency. Pulmonic Valve There is no pulmonic valvular stenosis. Trivial pulmonic valve insufficiency. Great Vessels Normal sized aortic root. Pericardium/Pleural No pericardial effusion. MMode/2D Measurements & Calculations LVIDd: 3.9 cm IVSd: 1.3 cm Ao root diam: 3.3 cm LVIDs: 2.7 cm LVPWd: 1.3 cm RVDd: 2.9 cm FS: 31.5 % LAV(MOD-bp): 27.0 ml LVAd ap4: 24.8 cm2 SV(MOD-sp4): 41.6 ml LAV(MOD-bp) Indexed: 14.7 ml/m2 LVLd ap4: 7.5 cm SI(MOD-sp4): 22.6 ml/m2 LAV(MOD-sp2): 24.9 ml EDV(MOD-sp4): 69.1 ml LAV(MOD-sp4): 26.7 ml EDV(sp4-el): 69.2 ml LVAs ap4: 14.0 cm2 LVLs ap4: 6.5 cm ESV(MOD-sp4): 27.6 ml ESV(sp4-el): 25.8 ml EF(MOD-sp4): 60.1 % EF(sp4-el): 62.7 % SV(sp4-el): 43.4 ml LA A4 area: 13.3 cm2 LA dimension(2D): 3.0 cm RA A4 area: 11.7 cm2 TAPSE: 2.2 cm Time Measurements MV dec time: 0.22 sec Doppler Measurements & Calculations MV E max shilo: 54.7 cm/sec Lat Peak E' Shilo: 9.1 cm/sec Med Peak E' Shilo: 7.2 cm/sec MV A max shilo: 93.3 cm/sec E/E' lat: 6.0 E/E' med: 7.6 MV E/A: 0.59 Ao V2 max: 189.3 cm/sec LV V1 max: 92.1 cm/sec PA V2 max: 113.3 cm/sec Ao max P.3 mmHg LV V1 max P.4 mmHg ECHO/Echo Complete Interpretation Summary The estimated ejection fraction is 65 %. No evidence for diastolic dysfunction. Trivial mitral valve insufficiency. Ordering Physician: J Luis Mcgill Chi Referring Physician: J Luis Mcgill Chi Performed By: Meghna Solis RDCS
== END | disposition home or self-care (01) ==
LOC: CVS 08:54
PROVIDERS: PCP Family Medicine Geriatric Medicine; Referring Provider Family Medicine Geriatric Medicine; Visit Provider Family Medicine Geriatric Medicine
DX: R07.9 Chest pain, unspecified (principal); Z86.73 Personal history of transient ischemic attack (TIA), and cerebral infarction without residual deficits
CPT/HCPCS: 93306

== ENCOUNTER → 2024-05-19 | Outpatient (CLI) | payer MEDICARE, SELFPAY ==
[2024-05-19 12:41] LABS: Absolute Lymphocyte Count 0.98 X10^3/uL (0.83-4.51); Absolute Neutrophil Count 8.2 X10^3/uL (2.0-7.7); Basophil# 0.05 X10^3/uL; Basophil% 0.5 % (0-1); Eosinophil# 0.15 X10^3/uL; Eosinophils% 1.4 % (0-5); Hematocrit 35.1 % (40-54); Hemoglobin 10.3 g/dL (13.0-16.5); Lymphocyte # 0.98 X10^3/ul (0.83-4.51); Lymphocyte % 9.5 % (19-41); Mean Corp Hgb Conc 29.3 g/dL (32-36); Mean Corpuscular Volume 78.3 fL (80-94); Mean Platelet Vol. 9.4 fl (6.2-12.0); Monocyte# 0.83 X10^3/uL; NRBC Flagged by Analyzer 0 % (0-5); Neutrophil # 8.24 X10^3/uL (2.7-7.7); Neutrophil % 79.4 % (47-70); Platelet Count 438 K/mm3 (150-450); RBC Distribution Width CV 17.1 % (11.6-14.6); RBC Distribution Width SD 47.6 fl (35.1-43.9); Red Blood Count 4.48 M/mm3 (4.6-6.2); White Blood Count 10.4 K/mm3 (4.4-11.0)
[2024-05-19 13:44] LABS: Anion Gap 10 (5-15); BUN 10 mg/dL (4-19); BUN/Creat Ratio 10.7 RATIO (10-20); Calcium 9.1 mg/dL (7.6-11.0); Carbon Dioxide 24.3 mmol/L (22.0-29.0); Chloride 106 mmol/L (96-108); Creatinine, Serum 0.9 mg/dL (0.8-1.3); EST Glomerular Filtration Rate 83 (>60); Glucose 103 mg/dL (70-99); Potassium 4.2 mmol/L (3.3-5.1); Sodium Level 140 mmol/L (133-145)
[2024-05-20 01:05] LABS: CPK Total, Creatine Kinase 36 U/L (24-195)
[2024-05-20 03:08] LABS: Troponin-I HS 24 pg/mL (3.0-78.0)
[2024-05-20 04:07] LABS: Myoglobin, Serum 40 ng/mL (28-72)
== END | disposition home or self-care (01) ==
LOC: POLAB3 12:29
PROVIDERS: PCP Family Medicine Geriatric Medicine; Visit Provider Family Medicine Geriatric Medicine
DX: R07.9 Chest pain, unspecified (principal)
CPT/HCPCS: 36415; 80048; 82550; 83874; 84484; 85025

== ENCOUNTER → 2024-05-20 | Outpatient (CLI) | payer MEDICARE, SELFPAY ==
--- NOTE | 2024-05-20 09:05 | RAD_ITS ---
PROCEDURE: CHEST PA AND LATERAL REASON FOR EXAM: Chest pain TECHNIQUE: Frontal and lateral views of the chest. COMPARISON: None. FINDINGS: The heart size is normal. There are atherosclerotic calcifications of the thoracic aorta. The lungs are clear. Degenerative changes are identified within the thoracic spine. RAD/Chest PA and Lateral IMPRESSION: No radiographic evidence of acute cardiopulmonary disease Reading Location: [id number]
[2024-05-20 09:52] LABS: Partial Thromboplast Time 26.1 Seconds (24.1-36.2)
== END | disposition home or self-care (01) ==
LOC: RAD 09:03
PROVIDERS: PCP Family Medicine Geriatric Medicine; Referring Provider Physician Assistant Medical; Visit Provider Physician Assistant Medical
DX: I20.0 Unstable angina (principal); R07.9 Chest pain, unspecified
CPT/HCPCS: 36415; 71046; 85730

== ENCOUNTER → 2024-05-23 | Outpatient (CLI) | payer MEDICARE, SELFPAY ==
--- NOTE | 2024-05-23 17:42 | CT_ITS ---
PROCEDURE: CTA HEAD AND NECK W/ CONTRAST REASON FOR EXAM: History of cerebral infarction. TECHNIQUE: CTA imaging of the head and neck from the aortic arch to the skull vertex with intravenous contrast. 3D reconstructions. CONTRAST: COMPARISON: None. # of known CTs in the past 12 months: 0 # of known Cardiac Nuclear Medicine Studies in the past 12 months: 0 FINDINGS: Aortic Arch: Normal size and branching pattern. Mild atherosclerotic plaque. Brachiocephalic and Subclavians: Unremarkable RIGHT Carotid: Right CCA: Unremarkable. Right ICA: Unremarkable. Maximum stenosis (NASCET): % Right ECA: Unremarkable. LEFT Carotid: Left CCA: Unremarkable. Left ICA: Calcific plaque at the origin of the left internal carotid artery causing close to occlusion. Maximum stenosis (NASCET): % Left ECA: Unremarkable. Vertebrals: Codominant. Arise from the subclavians. Both vertebrals form the basilar. RIGHT Vertebral: Unremarkable. LEFT Vertebral: Unremarkable. No intracranial aneurysms or large vascular malformations are identified. Anterior cerebral arteries: Unremarkable. Middle cerebral arteries: Unremarkable. Basilar artery: Unremarkable. Posterior cerebral arteries: Unremarkable. Other major branches of the posterior circulation: Unremarkable. Major venous structures: Unremarkable. Other findings: On the unenhanced brain, there is evidence of encephalomalacia in the posterior medial aspect of the left occipital lobe. Lung apices are clear. Bones are unremarkable. CT/CTA Head AND Neck W/ Contrast IMPRESSION: RIGHT CAROTID: Unremarkable LEFT CAROTID: Tight stenosis/almost total occlusion at the origin of the left i nternal carotid artery. VERTEBRALS: Unremarkable INTRACRANIAL: Calcific plaque at the level of the cavernous portions of the int ernal carotid arteries bilaterally. One or more dose reduction techniques were used (e.g., Automated exposure contr ol, adjustment of the mA and/or kV according to patient size, use of iterative reconstruction technique). Reading Location: [id number]
== END | disposition home or self-care (01) ==
LOC: CT 17:40
PROVIDERS: PCP Family Medicine Geriatric Medicine; Referring Provider Family Medicine Geriatric Medicine; Visit Provider Family Medicine Geriatric Medicine
DX: R07.9 Chest pain, unspecified (principal); Z86.73 Personal history of transient ischemic attack (TIA), and cerebral infarction without residual deficits
CPT/HCPCS: 70496; 70498; Q9967

== ENCOUNTER → 2024-05-25 | Outpatient (CLI) | payer MEDICARE, SELFPAY ==
--- NOTE | 2024-05-25 07:41 | CDU_ITS ---
Reason For Study Reason For Study: Lt Carotid Stenosis / CVA Rt. Velocities/BP Lt. Velocities/BP Prox CCA 104.5/23.3 cm/sec. Prox CCA 99.6/17.1 cm/sec. Mid CCA 102.3/25.5 cm/sec. Mid CCA 72.4/17.6 cm/sec. Dist CCA 102.3/23.3 cm/sec. Dist CCA 58.2/12.8 cm/sec. Prox ICA 124.2/27.7 cm/sec. Prox ICA 424.0/147.2 cm/sec. Mid ICA 102.3/25.5 cm/sec. Mid ICA 151.2/47.6 cm/sec. Dist ICA 91.3/25.5 cm/sec. Dist ICA 78.0/23.2 cm/sec. Rt. ICA/CCA = 1.2. Lt. ICA/CCA = 5.9. Prox ECA 130.8/12.3 cm/sec. Prox ECA 320.1/33.7 cm/sec. Rt. Vert. 40.2/10.6 cm/sec. Lt. Vert. 58.2/13.8 cm/sec. Right Extracranial There is homogeneous, smooth atherosclerotic plaque noted in the right common carotid artery. There is heterogeneous, irregular atherosclerotic plaque noted in the right internal carotid artery. There is heterogeneous, irregular atherosclerotic plaque noted in the right external carotid artery. Antegrade flow is noted in the right vertebral artery. Left Extracranial There is homogeneous, smooth atherosclerotic plaque noted in the left common carotid artery. There is heterogeneous, irregular atherosclerotic plaque noted in the left internal carotid artery. There is heterogeneous, irregular atherosclerotic plaque noted in the left external carotid artery. Antegrade flow is noted in the left vertebral artery. Procedure Carotid Duplex 35124. This is a Carotid Duplex examination using B-mode, color flow and specral Doppler. The exam was diagnostic. Exam performed in department. VL/Carotid Duplex Ultrasound Interpretation Summary Mild (<50%) stenosis right extracranial internal carotid. 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 Patent and antegrade vertebrals bilaterally. Ordering Physician: J Luis Mcgill Chi Referring Physician: J Luis Mcgill Chi Performed By: Matt Napoles RVT
== END | disposition home or self-care (01) ==
LOC: CVS 07:40
PROVIDERS: PCP Family Medicine Geriatric Medicine; Referring Provider Family Medicine Geriatric Medicine; Visit Provider Family Medicine Geriatric Medicine
DX: R07.9 Chest pain, unspecified (principal); Z86.73 Personal history of transient ischemic attack (TIA), and cerebral infarction without residual deficits
CPT/HCPCS: 93880

== ENCOUNTER → 2024-05-30 | Outpatient (CLI) | payer MEDICARE, SELFPAY ==
--- NOTE | 2024-05-30 16:15 | MRI_ITS ---
PROCEDURE: SPINE CERVICAL (ROUTINE) REASON FOR EXAM: PARASTHESIA OF SKIN TECHNIQUE: Cervical spine MRI without intravenous gadolinium-based contrast. CONTRAST: COMPARISON: 05/23/2024 and prior FINDINGS: Cervical vertebral body heights are preserved. No suspicious marrow signal abnormality. Similar T1 bright likely vertebral body hemangioma within the T2 vertebral body. Trace cervicothoracic dextroscoliosis. Straightening of the normal cervical lordosis, likely degenerative or positional, similar to prior. Ankylosis of the C3-C4 vertebral bodies is also similar. Similar trace likely degenerative anterolisthesis at C7-T1. Unremarkable cord signal. C2-3: Small posterior central disc protrusion. Facet arthropathy, advanced on the left. No significant spinal canal or foraminal stenosis. C3-4: Ankylosis as above. Central and left paracentral osteophyte contacting the ventral cord. Facet arthropathy. Mild focal spinal canal stenosis. Mild/moderate bilateral foraminal stenosis, [id number]-right. C4-5: Tiny posterior central disc protrusion contacting the ventral cord. Small posterior disc/osteophyte complexes, largest on the right in the subarticular and foraminal region. Uncovertebral and facet arthropathy. Mild focal spinal canal stenosis. Severe right and mild/moderate left foraminal stenosis. C5-6: Diffuse disc bulging, greatest in the bilateral subarticular/foraminal regions. Mild spinal canal stenosis. Facet/uncovertebral arthropathy, greater on the right. Severe right and mild/moderate left foraminal stenosis. C6-7: Diffuse disc bulging, again greatest in the subarticular and foraminal regions. Facet/uncovertebral arthropathy. Dqodrfms-bd-tfsohh bilateral foraminal stenosis. Mild focal spinal canal stenosis. C7-T1: Disc height loss without significant disc bulging. No significant focal spinal canal stenosis. Facet/uncovertebral arthropathy, greater on the right. Moderate right and mild left foraminal stenosis. T1-T2: Diffuse disc bulging with superimposed right paracentral disc protrusion exerting some mass effect on the spinal cord without direct contact currently. Overall mild focal spinal canal stenosis. Facet/uncovertebral arthropathy. Mild/moderate right and moderate left foraminal stenosis. Other: Disc bulging at the T2-T3 level is incompletely imaged. Thoracolumbar spondylosis on the bureau director, not well evaluated. MRI/Spine Cervical (Routine) IMPRESSION: 1. Variable multilevel cervical spondylosis as above. Variable foraminal steno ses, up to severe on the right from C4-C6 and ktmllqld-[id number] bilaterally at C6-C7. No high-grade spinal canal stenosis. 2. Additional description as above. Reading Location: [id number]
== END | disposition home or self-care (01) ==
LOC: MRI 15:45
PROVIDERS: PCP Family Medicine Geriatric Medicine; Referring Provider Psychiatry & Neurology Neurology; Visit Provider Psychiatry & Neurology Neurology
DX: R20.2 Paresthesia of skin (principal)
CPT/HCPCS: 72141

== ENCOUNTER 2024-06-13 08:16 | Day surgery (SDC) | payer MEDICARE, SELFPAY ==
[2024-06-10 09:33] VITALS: BMI 23.8
--- NOTE | 2024-06-13 10:59 | CL.D_ITS ---
Patient Name: BOBY VAN Study Date: 06/13/2024 Performing: Darryn Bowens MD Ht: 172.72 inches 438.7088 cm : 1940 Wt: 71.2 lbs 32.3 kg Age: 84 Gender: male BSA: 2.59 PROCEDURE(S) PERFORMED DC01-(45553)LHC/COR/LV CLINICAL PROFILE AND INDICATIONS Indications: Suspected CAD Heart Failure: None Stress/Imaging Date: 03/08/25Stress Test with SPECT MPI: Negative CAD Presentations: Stable angina. 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 Uncontrolled high blood pressure is present. RECOMMENDATIONS Aggressive medical therapy with blood pressure control. DESCRIPTION OF PROCEDURE The patient arrived to the procedure lab. The risks and benefits of the procedure as well as a full description of our services here and current unavailability of surgical backup were fully explained to the patient and/or their significant other prior to the catheterization. The Timeout was completed, verifying the correct patient and procedure. The patient's procedural site was prepped and draped in the usual fashion. Local anesthetic was given subcutaneously to right radial region with Lidocaine 2%. Using a modified Seldinger technique, arterial access was obtained via the right radial artery, a 6Fr sheath was inserted. Right Coronary Artery selective angiography was then performed in multiple views using a 5 Fr. 4.0 [place] catheter. Left Coronary Artery selective angiography was performed in multiple views using a 5 Fr. 4.0 [place] catheter. Left Ventriculography was performed in RILEY projection using a 5 Fr. [place] catheter. Simultaneous pressures were then recorded. CORONARY ANGIOGRAPHY LEFT HEART ASSESSMENT Left Ventricular Ejection Fraction: by LV Gram 60 % Normal LV wall motion Normal Left Ventricular systolic function LEFT MAIN: Dual ostium LEFT ANTERIOR DESCENDING ARTERY: Moderate luminal irregularities up to 50% CIRCUMFLEX ARTERY: Nondominant small vessel with 2 obtuse marginal branches and a ramus medianus with minimal disease. RIGHT CORONARY ARTERY: Mild calcification Mild luminal irregularities less than 30% COMPLICATIONS No Complications PROCEDURE MEDICATIONS Fentanyl 50 mcg IV Versed 1 mg IV Oxygen: 2 L/min via nasal cannula Heparin given IA 06/13/2024 10:21:39 Verapamil 2.5mg, Ntg 100mcgs, 3000 units of Heparin given IA 06/13/2024 10:21:39 SUMMARY OF HEMODYNAMIC DATA Time AIR REST ECG 08:38:33 AO 179/79 (119) SA 10:30:22 LV 191/17, 35 10:37:29 LV 189/16, 38 10:37:43 LV 199/19, 34 10:37:58 LV 168/20, 32 10:38:06 LVp 177/18, 39 10:38:10 AOp 178/74 (117) 10:38:17 Signed By Darryn Bowens MD On 06/13/2024 10:57:54 Darryn Bowens MD
== END 2024-06-13 12:30 | disposition home or self-care (01) ==
PROVIDERS: PCP Family Medicine Geriatric Medicine; Visit Provider Internal Medicine Cardiovascular Disease
DX: I25.118 Atherosclerotic heart disease of native coronary artery with other forms of angina pectoris (principal); I10 Essential (primary) hypertension; D50.9 Iron deficiency anemia, unspecified; E78.5 Hyperlipidemia, unspecified; Z79.02 Long term (current) use of antithrombotics/antiplatelets; Z79.899 Other long term (current) drug therapy; Z86.73 Personal history of transient ischemic attack (TIA), and cerebral infarction without residual deficits
CPT/HCPCS: 93458; 99152; 99153; Q9967; C1769; C1894

== ENCOUNTER → 2024-06-15 | Outpatient (CLI) | payer MEDICARE, SELFPAY ==
--- NOTE | 2024-06-15 16:10 | RAD_ITS ---
EXAM: Elbow minimum three views CLINICAL HISTORY: Pain COMPARISON: None available TECHNIQUE: Three views left elbow FINDINGS: No fracture, dislocation or joint effusion. The joint spaces appear within limits. Moderate appearing spurring, osteophyte formation noted. No sclerosis or osseous lesion identified. RAD/Elbow min 3 Views IMPRESSION: No fracture, dislocation or joint effusion. The joint spaces appear within limits. Osteoarthrosis with moderate appearing spurring, osteophyte formation noted. Reading Location: [id number]
== END | disposition home or self-care (01) ==
LOC: RAD 16:06
PROVIDERS: PCP Family Medicine Geriatric Medicine; Referring Provider Family Medicine Geriatric Medicine; Visit Provider Family Medicine Geriatric Medicine
DX: M25.522 Pain in left elbow (principal)
CPT/HCPCS: 73080

== ENCOUNTER 2024-07-12 10:11 | Inpatient (IN) | payer MEDICARE, SELFPAY ==
--- NOTE | 2024-06-28 15:58 | PAT.ANESEVAL ---
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 When Was Last Pacemaker Check QUESTION #4 FULL TEXT: You/Your Family Experience fever (hyperthermia) with Anesthesia Last Oral Intake Last Oral intake: Last Oral Intake NPO since Meds taken in AM with sips of water? 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: PONV - package line relief operator Female No 06/28/24 10:43 HX of Motion Sickness No 06/28/24 10:43 HX of N/V After Surgery No 06/28/24 10:43 Non-Smoker Yes 06/28/24 10:43 Duration of Surgery greater Yes 06/28/24 10:43 than 60 minutes Number of Risk Factors 2 06/28/24 10:43 PONV Score Moderate Risk 06/28/24 10:43 Height & Weight Height & Weight: Anesthesia: Height & Weight Height 5 ft 8 in 06/13/24 08:40 Respiratory Assessment Respiratory Assessment - package line relief operator: Respiratory Tract Infection Hx - package line relief operator Hx Respiratory Tract Infection No 06/28/24 10:43 STOP Sleep Apnea STOP Sleep Apnea - package line relief operator: STOP Sleep Apnea - package line relief operator Hx Hypertension No 06/28/24 10:43 Hx Sleep Apnea No 06/28/24 10:43 CPAP BIPAP Do you snore loudly (louder No 06/28/24 10:43 than talking or can be heard Do you often feel tired/ No 06/28/24 10:43 fatigued/ sleepy during daytime? Has anyone observed you stop No 06/28/24 10:43 breathing during sleep? STOP Results Negative 06/28/24 10:43 QUESTION #5 FULL TEXT : Do you snore loudly (louder than talking or can be heard through closed doors)? Tobacco Use History Tobacco Use History - package line relief operator: Tobacco Use History - package line relief operator Tobacco Use Smoking Status Never smoker 06/28/24 10:43 Hx Tobacco Use No 06/28/24 10:43 Years Smoking Packs Smoked per Day Smoking Cessation Date was within the last 15 years Hx Smoking Cessation Date Hx Smoking Cessation Counseling Hematologic Medial History Hematologic Hx - package line relief operator: Hematologic Medical Hx - sqe Hx of Blood Transfusion No 06/28/24 10:43 Hx of Transfusion in last 3 No 06/28/24 10:43 Months Date of Last Transfusion (if within last 3 months) Ever experience any problems No 06/28/24 10:43 with transfusion(s)? Specify any problems Hx of Preganancy in last 3 N/A 06/28/24 10:43 Months Nurse Filling Out Transfusion VCHRISTIN 06/28/24 10:43 & Questions: Date: 06/28/24 06/28/24 10:43 Time: 10:44 06/28/24 10:43 Patient unable to answer at this time (ie. confused, unrespo /Reproduction History /Reproductive History - package line relief operator: /Reproductive Hx- package line relief operator Hx Now Gestational Age (in weeks): EDC: Hx Hx Para Hx Section [facility] Medical History (Updated 06/28/24 @ 10:42 by Madison Arredondo) Wears hearing aid Wears dentures Wears glasses High cholesterol Easy bruising Restless legs Non-smoker Shortness of breath on exertion History of echocardiogram History of stress test Cardiology follow-up encounter Left lateral epicondylitis Vitamin D deficiency Iron deficiency anemia Hiatal hernia Hyperlipidemia Essential (primary) hypertension Bilateral carpal tunnel syndrome Chest pain CVA (cerebral vascular accident) Benign prostatic hyperplasia without urinary obstruction Diverticulitis Syncope and collapse Asthma Cubital tunnel syndrome on left Cervical radiculopathy Cervical strain Home Medications ?Medication ?Instructions ?Recorded ?Last Taken ?Type albuterol sulfate 90 mcg/actuation 1 - 2 puff inhalation Q4H PRN PRN 05/02/14 Unknown Rx aerosol inhaler (Ventolin HFA) Wheezing ##1 montelukast 10 mg tablet 10 mg PO DAILY LUNGS 05/02/14 07/05/23 History (Singulair) acetaminophen 325 mg capsule 325 mg PO TID PRN fever or pain 11/20/21 Unknown History (Tylenol) mirtazapine 7.5 mg tablet 7.5 mg PO QHS RLS 04/11/24 Unknown History losartan 100 mg tablet 100 mg PO QDAY BP #90 tabs 04/28/24 Unknown Rx isosorbide mononitrate 30 mg 30 mg PO QAM HEART #30 tabs 05/20/24 Unknown Rx tablet,extended release 24 hr atorvastatin 40 mg tablet 40 mg PO QHS CHOLESTEROL 06/03/24 Unknown History clopidogrel 75 mg tablet 75 mg PO QDAY BLOOD THINNER 06/03/24 Unknown History nitroglycerin 0.4 mg sublingual 0.4 mg sublingual Q5M PRN chest 06/03/24 Unknown History tablet pain amlodipine 10 mg tablet 10 mg PO QDAY BP #90 tabs 06/13/24 Unknown Rx dipyridamole 50 mg tablet 100 mg (2 x 50 mg) PO Q6H 30 days 06/28/24 Unknown Rx #240 tabs Allergy/AdvReac Type Severity Reaction Status Date / Time naproxen (From Aleve) Allergy Unknown palpitaions, Verified 06/28/24 10:30 SOB aspirin Allergy Shortness Verified 06/28/24 10:30 of breath ibuprofen Allergy Other Verified 06/28/24 10:30 Family History Sister Cancer Mother Bleeding disorder Surgical History (Updated 06/28/24 @ 10:42 by Madison Arredondo) History of cardiac catheterization Hx of bilateral cataract extraction History of appendectomy Myringotomy tube status (~2005) Social History household members: [facility] number of children: 2 pets and animals: Yes (maltise-dog) Smoking Status: Never smoker alcohol intake: never substance use type: does not use caffeine: Yes Type: coffee Number of servings: 2 Audit: Pertinent Findings Pertinent Findings EKG Perinent findings: May 20, 2024. Sinus rhythm within normal limits. Stress test pertinent findings: March 08, 2024. 64% ejection fraction. No areas of reversibility to suggest ischemia. No previous infarct. Echo (EF%) pertinent findings: May 18, 2024. Ejection fraction 65%. No aortic stenosis. Heart catheterization pertinent findings: June 13, 2024. Atherosclerotic cardiovascular disease with no high-grade stenosis. Dual ostium left main is noted. Uncontrolled high blood pressure is present. Recommendation is aggressive medical therapy for the high blood pressure. Consult pertinent findings: May 20, 2024. Arslan BRAUN. 1. Chest [id number] has symptoms concerning for angina despite a negative stress test. Will add isosorbide. Check a cardiac cath (see above). Recommendation Anesthesia Recommendation Anesthesia recommendation: OPTIMIZED for anesthesia
[2024-07-12] VITALS (31 sets, daily range): BP systolic 85–145; BP diastolic 36–88; PULSE 48–83; RESP 12–20; TEMP 35.8–37; O2SAT 92–100; BMI 23.6; BMI 25.1
[2024-07-12] MEDS: 0.9% Normal Saline (1000mL) 1,000 ML 15 ML IV ×2 (06:56→09:30)
--- NOTE | 2024-07-12 07:40 | PRE.ANES_ITS ---
ASA Classification* ASA Classification ASA Classification: 3 Assessment & Plan Anesthesia* Anesthesia Assessment Anesthesia Assessment: Discussed sedation and/or anesthesia options, risks, benefits, and alternatives with patient/parents/legal guardian/POA. Questions invited. The patient/parents/legal guardian/POA seems to understand and agrees to proceed with anesthesia plan. Reviewed the physical assessment, medical history, allergy history and patient home medications list prior to surgery/procedure/anesthetic and documented any changes. Performed airway and anesthesia risk assessments. Anesthesia Type Anesthesia Type: General (Patient will have a arterial line for the procedure as well.) History Source History Obtained from:: Patient and Chart Anesthesia Focused Assessment* Temperature: 98.4 F Pulse Rate: 83 Blood Pressure: 131/60 Respiratory Rate: 18 Pulse Ox: 100 Oxygen Delivery Method: Room Air Airway Assessment Mouth opens: >3 cm Mallampati Score: II Teeth Condition: Dentures (Patient has full upper and lower dentures. They will come out.) Neck Range of motion (ROM): Limited ROM Focused Labs Anesthesia Preop lab: CBC WBC 10.4 K/mm3 (4.4-11.0) 05/19/24 12:05/19/24 RBC 4.48 M/mm3 (4.6-6.2) L 05/19/24 12:05/19/24 Hgb 10.3 g/dL (13.0-16.5) L 05/19/24 12: 5 Hct 35.1 % (40-54) L 05/19/24 12:05/19/24 Plt Count 438 K/mm3 (150-450) 05/19/24 12:05/19/24 CHEMISTRY Potassium 4.2 mmol/L (3.3-5.1) 05/19/24 12:05/19/24 Sodium 140 mmol/L (133-145) 05/19/24 12:05/19/24 BUN 10 mg/dL (4-19) 05/19/24 12:05/19/24 Creatinine 0.9 mg/dL (0.8-1.3) 05/19/24 12:05/19/24 Glucose 103 mg/dL (70-99) H 05/19/24 12:05/19/24 TSH 1.150 uIU/mL (0.358-3.740) 02/12/24 11:25 01/22 05/16 COAG Pre-Assessment Diagnosis/Proposed Procedure Planned Operative Procedure(s): (L) LEFT CAROTID ARTERY STENT (IN NURSING HOME PHYSICIAN WITH OR STAFF, RFNA, ANESTHESIA) Anesthesia History Anesthesia History - 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 When Was Last Pacemaker Check QUESTION #4 FULL TEXT: You/Your Family Experience fever (hyperthermia) with Anesthesia Last Oral Intake Last Oral intake: Last Oral Intake NPO since 22:00 07/12/24 06:28 Meds taken in AM with sips of Yes 07/12/24 06:28 water? 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 - group sales coordinator: PONV - group sales coordinator Female No 06/28/24 10:43 HX of Motion Sickness No 06/28/24 10:43 HX of N/V After Surgery No 06/28/24 10:43 Non-Smoker Yes 06/28/24 10:43 Duration of Surgery greater Yes 06/28/24 10:43 than 60 minutes Number of Risk Factors 2 06/28/24 10:43 PONV Score Moderate Risk 06/28/24 10:43 Height & Weight Height & Weight: Anesthesia: Height & Weight Height 5 ft 8 in 07/12/24 06:28 Weight: 70.4 kg 07/12/24 06:28 Body Mass Index (BMI) 23.6 07/12/24 06:28 Respiratory Assessment Respiratory Assessment - group sales coordinator: Respiratory Tract Infection Hx - group sales coordinator Hx Respiratory Tract Infection No 06/28/24 10:43 STOP Sleep Apnea STOP Sleep Apnea - group sales coordinator: STOP Sleep Apnea - group sales coordinator Hx Hypertension No 06/28/24 10:43 Hx Sleep Apnea No 06/28/24 10:43 CPAP BIPAP Do you snore loudly (louder No 06/28/24 10:43 than talking or can be heard Do you often feel tired/ No 06/28/24 10:43 fatigued/ sleepy during daytime? Has anyone observed you stop No 06/28/24 10:43 breathing during sleep? STOP Results Negative 06/28/24 10:43 QUESTION #5 FULL TEXT : Do you snore loudly (louder than talking or can be heard through closed doors)? 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 Specify any problems Hx of Preganancy in last 3 N/A 06/28/24 10:43 Months Nurse Filling Out Transfusion VCHRISTIN 06/28/24 10:43 & Questions: Date: 06/28/24 06/28/24 10:43 Time: 10:44 06/28/24 10:43 Patient unable to answer at this time (ie. confused, unrespo /Reproduction History /Reproductive History - group sales coordinator: /Reproductive Hx- group sales coordinator Hx Now Gestational Age (in weeks): EDC: Hx Hx Para Hx Section SAB Active Medications Active Medications: Current Medications Generic Name Dose Route Start Last Admin Trade Name Freq PRN Reason Stop Dose Admin Sodium Chloride 1,000 mls @ 15 mls/hr 07/12/24 06:55 07/12/24 06:56 IV 15 mls/hr .Q48H SINDI Administration PFSH Medical History Wears hearing aid Wears dentures Wears glasses High cholesterol Easy bruising Restless legs Non-smoker Shortness of breath on exertion History of echocardiogram History of stress test Cardiology follow-up encounter Left lateral epicondylitis Vitamin D deficiency Iron deficiency anemia Hiatal hernia Hyperlipidemia Essential (primary) hypertension Bilateral carpal tunnel syndrome Chest pain CVA (cerebral vascular accident) Benign prostatic hyperplasia without urinary obstruction Diverticulitis Syncope and collapse Asthma Cubital tunnel syndrome on left Cervical radiculopathy Cervical strain Home Medications ?Medication ?Instructions ?Recorded ?Last Taken ?Type albuterol sulfate 90 mcg/actuation 1 - 2 puff inhalati on Q4H PRN PRN 05/02/14 07/11/24 Rx aerosol inhaler (Ventolin HFA) Wheezing ##1 montelukast 10 mg tablet 10 mg PO DAILY LUNGS 5 07/11/24 History (Singulair) acetaminophen 325 mg capsule 325 mg PO TID PRN fever o r pain 11/20/21 Unknown History (Tylenol) mirtazapine 7.5 mg tablet 7.5 mg PO QHS RLS 04/11/24 0 07/11/24 History losartan 100 mg tablet 100 mg PO QDAY BP #90 tabs 0 04/28/24 07/12/24 Rx isosorbide mononitrate 30 mg 30 mg PO QAM HEART #30 ta bs 05/20/24 07/12/24 Rx tablet,extended release 24 hr atorvastatin 40 mg tablet 40 mg PO QHS CHOLESTEROL 07/11/24 History clopidogrel 75 mg tablet 75 mg PO QDAY BLOOD THINNER 06/03/24 07/12/24 History nitroglycerin 0.4 mg sublingual 0.4 mg sublingual Q5M PRN chest 06/03/24 Unknown History tablet pain amlodipine 10 mg tablet 10 mg PO QDAY BP #90 tabs 07/12/24 Rx dipyridamole 50 mg tablet 100 mg (2 x 50 mg) PO Q6H 07/12/24 Rx anticoagulant 30 days #240 tabs Allergy/AdvReac Type Severity Reaction Status Date / Time naproxen (From Aleve) Allergy Unknown palpitaions, Verified 07/12/24 06:24 SOB aspirin Allergy Shortness Verified 07/12/24 06:24 of breath ibuprofen Allergy Other Verified 07/12/24 06:24 Family History Sister Cancer Mother Bleeding disorder Surgical History History of cardiac catheterization Hx of bilateral cataract extraction History of appendectomy Myringotomy tube status (~2005) Social History [facility] members: [facility] number of children: 2 pets and animals: Yes (maltise-dog) Smoking Status: Never smoker alcohol intake: never substance use type: does not use caffeine: Yes Type: coffee Number of servings: 2 Review of Systems (Anesthesia) ROS Narrative System reviewed and no additional complaints, except as documented.
[2024-07-12] MEDS: Cefazolin 2 GM in Syringe IV (08:30)
--- NOTE | 2024-07-12 08:31 | PCM.HP.BLA ---
History and Physical Allergies naproxen (From Aleve) Allergy (Unknown, Verified 06/27/24 14:01) palpitaions, SOBaspirin Allergy (Verified 06/27/24 14:01) Shortness of breathibuprofen Allergy (Verified 06/27/24 14:01) Other Medications ?Medication ?Instructions ?Recorded ?Confirmed ?Type albuterol sulfate 90 mcg/actuation 1 - 2 puff inhalation Q4H PRN PRN 05/02/14 06/27/24 Rx aerosol inhaler (Ventolin HFA) Wheezing ##1 montelukast 10 mg tablet 10 mg PO DAILY 05/02/14 06/27/24 History (Singulair) acetaminophen 325 mg capsule 325 mg PO TID PRN fever or pain 11/20/21 06/27/24 History (Tylenol) mirtazapine 7.5 mg tablet 7.5 mg PO QHS 04/11/24 06/27/24 History losartan 100 mg tablet 100 mg PO QDAY #90 tabs 04/28/24 06/27/24 Rx isosorbide mononitrate 30 mg 30 mg PO QAM #30 tabs 05/20/24 06/27/24 Rx tablet,extended release 24 hr atorvastatin 40 mg tablet 40 mg PO QHS 06/03/24 06/27/24 History clopidogrel 75 mg tablet 75 mg PO QDAY 06/03/24 06/27/24 History nitroglycerin 0.4 mg sublingual 0.4 mg sublingual Q5M PRN chest 06/03/24 06/27/24 History tablet pain amlodipine 10 mg tablet 10 mg PO QDAY #90 tabs 06/13/24 06/27/24 Rx Have you fallen in the past year?: No PFSH Medical History Left lateral epicondylitis Vitamin D deficiency Iron deficiency anemia Hiatal hernia Hyperlipidemia Essential (primary) hypertension Chest pain Bilateral carpal tunnel syndrome CVA (cerebral vascular accident) Benign prostatic hyperplasia without urinary obstruction Diverticulitis Syncope and collapse Asthma Cubital tunnel syndrome on left Cervical radiculopathy Cervical strain Surgical History History of appendectomy Myringotomy tube status (~2005) Family History Sister CancerMother Bleeding disorder Social History household members: spouse housing: condominium number of children: 2 pets and animals: Yes (maltise-dog) Smoking Status: Never smoker alcohol intake: never substance use type: does not use caffeine: Yes Type: coffee Number of servings: 2 HPI HPI HPI: BOBY VAN, is a 84 M who presents to the office today for follow up discussions of asymptomatic left carotid stenosis. CTA and duplex correlat; 78% on CT. Denies numbness/weakness/vision loss/speech difficulty. ROS General General: No weight change, appetite, fatigue, colon cancer, breast cancer or weakness HEENT HEENT: No difficulty swallowing, eye injury, eye surgery, swollen glands or hoarseness Endo Endocrine: No thyroid disease, diabetes mellitus, thyroid cancer, Hair loss, heat intolerance or cold intolerance Skin Skin: No rash or changing moles Musc Musculoskeletal: Yes joint pain; No back problems, arthritis, rheumatoid arthritis or gout Cardio Cardiovascular: Yes high blood pressure; No murmur, pacemaker, heart disease, atrial fibrillation, heart attack, heart stent, palpitations, shortness of breath with exertion or chest pain Psych Psychiatric: No depression, anxiety or hearing voices Resp Respiratory: Yes shortness of breath, No sleep apnea, No cough, No COPD, Yes asthma, No emphysema and No wheezing Gastro Gastrointestinal: No abdominal pain, No nausea or vomiting, No diarrhea, No constipation, No blood in stool, No acid reflux, No hemorrhoids, No ulcers, No gallbladder problem and No black,tarry stools Shahbaz Hematologic: Yes blood thinners, No blood disorders, No bleeding, No anemia and No blood clots Neuro Neurologic: No system reviewed and no additional complaints, except as documented, No as per HPI, No abnormal gait, No abnormal hearing, No abnormal movements, No abnormal speech, No behavioral changes, No burning sensations, No confusion, No convulsions, No disequilibrium, No dizziness, No localized weakness, No frequent falls, No headache(s), No lack of coordination, No loss of vision, No memory loss, Yes numbness, No other visual disturbances, Yes radicular pain, No restless legs, No sensory deficit, No syncope, Yes tingling, No tremor(s), No weakness and No other Exam Const General: cooperative, healthy appearing, comfortable, no acute distress and well developed Nutritional Appearance: well nourished Orientation: alert, awake and oriented x3 HENMT Head: normocephalic and atraumatic Ears: hearing grossly normal bilaterally Nose: external nose normal Eyes General: appearance normal, both eyes and all related structures EOM: EOM intact bilaterally Neck Neck: normal visual inspection, full ROM, no lymphadenopathy and trachea midline Thyroid: thyroid normal Lymphatic: no lymphadenopathy noted Resp Effort & Inspection: normal respiratory effort, able to speak in complete sentences, symmetric chest movement, no audible wheezes, not labored, no stridor and no use of accessory muscles Auscultation: clear to auscultation bilaterally Cardio Rate: regular rate Rhythm: regular rhythm Heart Sounds: no murmurs Bruits: carotid bruit on the left Pulses: brachial pulses present and radial pulses present Skin General: no rashes or lesions noted and no erythema Wounds: no wounds Neuro Cranial Nerves: CN's II-XI intact bilaterally and EOM intact bilaterally Speech: speech normal Gait: normal gait Motor: strength 5/5 throughout Sensory Exam: no sensory deficits noted Psych Appearance: grossly normal and well kempt Mental Status: mental status grossly normal Mood: congruent mood Speech and Movement: speech and movement normal Thought Content: normal Judgment: judgment good Coding Level of Care Code Off vis,est,level 3 Diagnoses Stenosis of left internal carotid artery I65.22 Assessment and Plan Assessment and Plan (1) 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
--- NOTE | 2024-07-12 10:51 | PCM.POST.ANE ---
Anesthesia: Postop Eval I Current Vital Signs Temperature: 96.5 F Pulse Rate: 71 Blood Pressure: 133/50 Respiratory Rate: 20 Pulse Ox: 100 Oxygen Delivery Method: Room Air Assessment Airway patent: Yes Spontaneous unlabored respirations: Yes Mental status: Calm nausea: No Vomiting: No Anesthesia Complication: No Fluid Hydration Crystalloid volume administer (ml): 1,700 Total IV fluid infused: 1,700 Progress Note Anesthesia document: Postop Eval 1 completed: Yes
--- NOTE | 2024-07-12 11:08 | OP.PCM_ITS ---
Operative Report (Standard) Operative Information Date of Procedure: 07/12/24 Pre-Operative Diagnosis: left carotid stenosis Post-Operative Diagnosis: same Surgery/Procedure Performed: left carotid stent, trans-carotid instructor technical training: Yes Azure Architect: Moise Short Tasks completed by licensed sales assistant: Opening, Closing, Opening & closing and Retracting Type of Anesthesia: General RN Documented Start/Stop Times: Operation Date: 07/12/24 08:00 Case Time Into Pre-Op 07/12/24 06:03 Out of Pre-Op 07/12/24 07:48 Into Recovery 07/12/24 10:42 Out of Recovery 07/12/24 11:45 Procedure Start Time: 08:50 Procedure Stop Time: 10:00 Select all DRAINS/GRAFTS/IMPLANTS that apply: Drains Drain details: 19 Fr DOMINICK and Implanted device Implanted device details: En route [id number] stent Estimated Blood Loss: 17 Specimen collected: No Description of surgery: HPI: Patient is an 84-year-old male with severe left internal carotid artery boyd nosis which is asymptomatic in nature. He has been evaluated and found to be appropriate for carotid artery stenting. He presents now for elective transcarotid artery stenting. Description of procedure: Upon obtaining form consent and verification correct patient procedure site the patient was taken to the Cash Applications Coordinator was placed under general anesthesia. He was then positioned prepped and draped in usual sterile fashion time out was performed. Transverse incision was made 1 fingerbreadth superior to the clavicle and Bovie cautery was dissect down through the subcutaneous tissue to the level the platysma. The platysma was divided and self-retaining retractors put in position then further dissection carried down to the sternocleidomastoid which was split between the sternal and clavicular heads. Self-retaining retractors then moved deeper into the wound and sharp dissection used to dissect free the jugular vein with sidebranches ligated with medium clips and divided. The jugular vein was then retracted laterally exposing the common carotid artery. Sharp dissection used to dissect free the vessel circumferentially proximal in the field with care taken to identify and protect adjacent nerve structures. A writing was used to place a vessel loop and the patient was then heparinized allowed to circulate for 3 minutes after which an ACT was obtained. Further heparin dosing was then made based on subsequent ACT results. A 5-0 Prolene pursestring was then placed at the intended access site. Under ultrasound guidance the right common femoral vein accessed with a micropuncture needle wire. This was then exchanged for micropuncture sheath through which a J-wire was advanced and the micropuncture sheath exchanged for the 8 [place] venous return sheath. After adequate ACT re sults were obtained we then used a micropuncture needle wire to access the common carotid artery in antegrade fashion. This then exchanged for micropuncture sheath through which hand-injection carotid angiography was performed revealing satisfactory positioning with no extravasation or dissection. Through the micropuncture sheath the J-wire was advanced stopping short of the carotid bifurcation. The micropuncture sheath was exchanged for the 8 [place] flow reversal sheath which was advanced without resistance. This was then secured into position and the flow reversal conduit attached and ad equate flow reversal confirmed. Oblique view subtraction angiography through the sheath was performed revealing satisfactory sheath positioning. The proximal common carotid artery was then occluded with vessel loop and adequate flow reversal again confirmed. Repeat imaging was then obtained and the location of the internal carotid artery origin and the lesion marked. Using an 014 wire we were able to traverse the origin of the internal carotid artery crossing the lesion into the distal vessel beyond. A 5 x 35 mm angioplasty was advanced in the position and inflated to nominal for 30 seconds then deflated withdrawn. A tapered 9 - 7 x 40 en route stent was then advanced in position centered on the lesion and deployed. Flow reversal was continued for an additional 3 minutes after which repeat angiography was performed revealing satisfactory stent positioning with no extravasation or dissection. There was no plaque prolapse through the stent struts and there was no significant resi dual stenosis. The wire was then withdrawn and the proximal carotid vessel loop released after which 2 additional minutes of flow reversal was performed. The flow reversal tubing was then detached and blood return via the venous sheath after which the sheath withdrawn a minute pressure held for 10 minutes until hemostasis was obtained. The carotid pursestring suture was then secured as the sheath was withdrawn and the heparin was then versed with protamine. The incision was then inspected for hemostasis and a 19 [place] channel DOMINICK placed via separate stab incision. The incision closed with 3-0 Vicryl, 4 Monocryl and Dermabond for the skin. At the conclusion the case the patient was awakened anesthesia and taken to the recovery room moving all extremities to command with cranial nerves intact. Surgical Findings: see above Complications Complications: No
--- NOTE | 2024-07-12 11:54 | POSTOPAN2_ITS ---
Anesthesia Postop Eval I Sum Postop Eval Completion status Anesthesia document: Postop Eval 1 completed: Yes Anesthesia Postop Eval I Summary Anesthesia Postop Eval I Summary: Anesthesia Postop Eval I: Assessment Summary Airway patent Yes 07/12/24 10:52 [email or web address] Spontaneous unlabored Yes 07/12/24 10:52 [email or web address] respirations Mental status Calm 07/12/24 10:52 [email or web address] nausea No 07/12/24 10:52 [email or web address] Vomiting No 07/12/24 10:52 [email or web address] Anesthesia Postop Eval I: Fluid Summary Crystalloid volume administer 1,700 07/12/24 10:52 [email or web address] (ml) Colloids volume administered ( ml) Blood Product volume administered (ml) Total IV fluid infused 1,700 07/12/24 10:52 [email or web address] Anesthesia Postop Eval I: Summary Notes Anesthesia Complication No 07/12/24 10:52 [email or web address] Anesthesia Complication Comment: Post-operative progress note Anesthesia: Postop Eval II Evaluation Mental status: Awake and Calm Pain Level: 0 nausea: No Vomiting: No Complications Anesthesia Complication: No
--- NOTE | 2024-07-12 11:54 | PCM.POSTANE2 ---
Anesthesia Postop Eval I Sum Postop Eval Completion status Anesthesia document: Postop Eval 1 completed: Yes Anesthesia Postop Eval I Summary Anesthesia Postop Eval I Summary: Anesthesia Postop Eval I: Assessment Summary Airway patent Yes 07/12/24 10:52 [email or web address] Spontaneous unlabored Yes 07/12/24 10:52 ORACLE [email or web address] [email or web address] respirations Mental status Calm 07/12/24 10:52 ORACLE [email or web address] nausea No 07/12/24 10:52 ORACLE [email or web address] [email or web address] Vomiting No 07/12/24 10:52 ORACLE [email or web address] [email or web address] Anesthesia Postop Eval I: Fluid Summary Crystalloid volume administer 1,700 07/12/24 10:52 ORACLE [email or web address] (ml) Colloids volume administered ( ml) Blood Product volume administered (ml) Total IV fluid infused 1,700 07/12/24 10:52 ORACLE [email or web address] Anesthesia Postop Eval I: Summary Notes Anesthesia Complication No 07/12/24 10:52 ORACLE [email or web address] [email or web address] Anesthesia Complication Comment: Post-operative progress note Anesthesia: Postop Eval II Evaluation Mental status: Awake and Calm Pain Level: 0 nausea: No Vomiting: No Complications Anesthesia Complication: No
[2024-07-12] MEDS: 0.45% Normal Saline 1,000 ML 75 ML IV (12:04)
[2024-07-12] MEDS: Acetaminophen 325 MG Tablet PO ×2 (12:53→20:04)
[2024-07-12] MEDS: oxyCODONE 5 MG Tablet PO ×2 (12:54→20:03)
[2024-07-12 15:03] LABS: ACT Activated Clotting Time 273 sec (74-137)
[2024-07-12 15:03] LABS: ACT Activated Clotting Time 233 sec (74-137)
[2024-07-12 15:03] LABS: ACT Activated Clotting Time 245 sec (74-137)
[2024-07-12] MEDS: Cefazolin 1 GM/50 ML BAG IV (17:24)
[2024-07-12] MEDS: BENZOCAINE/MENTHOL 1 LOZENGE MUCOUS MEM (20:04)
[2024-07-12] MEDS: Mirtazapine 15 MG Tablet 7.5 MG PO (20:05)
[2024-07-12] MEDS: Atorvastatin Calcium 40 MG Tablet PO (20:05)
[2024-07-12] MEDS: Norepinephrine 8 MG in 0.9% Normal Saline (250mL Bag) 242 ML 9.4 MG CONT INF (21:15)
[2024-07-12] MEDS: 0.9% Saline Lock 10 ML Syringe IV (21:40)
[2024-07-13] VITALS (19 sets, daily range): BP systolic 99–148; BP diastolic 46–65; PULSE 52–79; RESP 11–23; TEMP 36.6–37.1; O2SAT 93–100; BMI 23.8
[2024-07-13] MEDS: Cefazolin 1 GM/50 ML BAG IV (00:32)
[2024-07-13 06:14] LABS: Absolute Lymphocyte Count 1.37 X10^3/uL (0.83-4.51); Absolute Neutrophil Count 6.5 X10^3/uL (2.0-7.7); Basophil# 0.03 X10^3/uL; Basophil% 0.3 % (0-1); Eosinophil# 0.13 X10^3/uL; Eosinophils% 1.4 % (0-5); Hematocrit 25.2 % (40-54); Hemoglobin 7.7 g/dL (13.0-16.5); Lymphocyte # 1.37 X10^3/ul (0.83-4.51); Lymphocyte % 15.1 % (19-41); Mean Corp Hgb Conc 30.6 g/dL (32-36); Mean Corpuscular Hgb 23.5 pg (27.0-32.0); Mean Corpuscular Volume 77.1 fL (80-94); Mean Platelet Vol. 9.7 fl (6.2-12.0); Monocyte# 0.93 X10^3/uL; Monocyte% 10.3 % (0-10); NRBC Flagged by Analyzer 0 % (0-5); Neutrophil # 6.53 X10^3/uL (2.7-7.7); Neutrophil % 72.1 % (47-70); Platelet Count 278 K/mm3 (150-450); RBC Distribution Width CV 17.7 % (11.6-14.6); RBC Distribution Width SD 49.2 fl (35.1-43.9); Red Blood Count 3.27 M/mm3 (4.6-6.2); White Blood Count 9.1 K/mm3 (4.4-11.0)
[2024-07-13] MEDS: DIPYRIDAMOLE 50 MG TABLET 100 MG PO ×2 (08:34→15:20)
--- NOTE | 2024-07-13 09:05 | PCM.PN.SRG ---
Subjective Subjective I saw Mr. Alcazar at bedside this morning. He reports he is feeling good, just tired. He reports no significant pain. He was hypotensive following surgery requiring initiation of levophed overnight, he was on 5 mcg when I saw him early this morning; able to hold around 9 am. He denies any lightheadedness/dizziness. Pharmacy did not have dipyridamole on formulary/in stock so he did not receive this overnight; I was notified this morning. When I saw patient this morning, he mentioned he had brought his medications with him and I did find his dipyridamole prescription. This was sent to pharmacy who verified it; he was able to start taking this again this morning. Objective Data Objective Data Vital Signs: Vital Signs Temp Pulse Resp BP Pulse Ox O2 Del Method O2 Flow Rate 98.3 F 77 18 132/53 H 98 Room Air 2 07/13/24 08:00 07/13/24 08:00 07/13/24 08:00 07/13/24 08:45 07/13/24 08:00 07/13/24 08:00 07/12/24 11:46 FiO2 07/12/24 16:00 Oxygen Flow Rate (L/min) 2 Oxygen Delivery Method Room Air Weight: 156 lb 15.506 oz Body Mass Index (BMI) 23.8 Intake & Output: Intake and Output for Last 24 Hours 07/11/24 07/12/24 07/13/24 23:59 23:59 23:59 Intake Total 2066.45 / 2075.85 1641.65 / 1641.65 Output Total 495 / 495 Balance 2046.45 / 2055.85 1146.65 / 1146.65 Lab / Micro Data 07/13/24 10:10 Labs: Laboratory Results - last 24 hr 07/12/24 08:09: Activated Clotting Time 245 H 07/12/24 08:19: Activated Clotting Time 273 H 07/12/24 08:53: Activated Clotting Time 233 H 07/13/24 05:40: WBC 9.1, RBC 3.27 L, Hgb 7.7 L, Hct 25.2 L, MCV 77.1 L, MCH 23.5 L, MCHC 30.6 L, RDW Std Deviation 49.2 H, RDW Coeff of Heriberto 17.7 H, Plt Count 278, MPV 9.7, Immature Gran % (Auto) 0.800, Neut % (Auto) 72.1 H, Lymph % (Auto) 15.1 L, [place] % (Auto) 10.3 H, Eos % (Auto) 1.4, Baso % (Auto) 0.3, Absolute Neuts (auto) 6.5, Absolute Lymphs (auto) 1.37, Nucleated RBC % 0 Physical Exam Const alert, oriented x3 and no apparent distress General Appearance: cooperative and comfortable HEENT normocephalic, head/scalp atraumatic, hearing grossly normal bilaterally, external ears normal and external nose normal Eyes EOMs intact bilaterally General Eye: normal appearance of both eyes Neck Neck Narrative: L neck incision site with skin glue intact, no dehiscence. Mild ecchymosis, minimal swelling. No hematoma, soft to palpation. DOMINICK drain with mild serosanguineous output. Resp normal respiratory effort, normal air movement, no retractions and no use of accessory muscles Effort and Inspection: able to speak in complete sentences; Negative for labored, grunting or stridor Cardio regular rate and regular rhythm Skin no rashes or lesions noted Neuro oriented x3, CN's II-XII intact bilaterally, moves all extremities and no focal motor deficits Speech: speech normal Psych mental status grossly normal Appearance: grossly normal Attitude: calm and engaged Activity / Motor Behavior: appropriate eye contact Speech: normal speech Assessment & Plan Assessment/Plan (1) Stenosis of left internal carotid artery: PLAN: Plan He is POD#1 from TCAR. Incision site satisfactory in appearance without hematoma. I removed DOMINCIK drain without issue, he tolerated this well. Levophed was held starting around 9 am; will continue to monitor blood pressures through the afternoon. Continue to hold home antihypertensive medicaitons. Continue Effient and Dipyridamole. Will plan for him to ambulate with nursing/PT. Possible discharge later this afternoon pending blood pressure stability.
[2024-07-13] MEDS: Enoxaparin 40 MG/0.4 ML Syringe SC (10:08)
--- NOTE | 2024-07-13 10:11 | CASEMGMT ---
RUBA URIBE Assessment Face to Face with patient for initial transition planning/care coordination assessment. RUBA URIBE introduced self and role at [facility], pt voices understanding. Pt is A&Ox4 and is resting comfortably in bed and is calm. Pt at bedside. Care providers, pharmacy, and demographics verified. Admitting dx: Lt Carotid Artery Stent LACE Strata: 1 PCP: Artem Specialists: Reddy (Vascular), [place] Preferred Pharmacy: [facility] Insurance: [facility] Prescription Benefit: Yes LNOK: Akanksha (W) Living Arrangements: Pt lives with his in a single story home with 2 steps to enter ADLs/IADLs: Pt states that he is entirely independent Transportation: Self, DME: [employer]. Denies all further DME uses or needs HHC/SNF: Denies hx or needs Pt?s goal: Home Plan: Home with pt , anticipate no further needs e/f potential new blood thinning Rx. Pt states that he feels safe returning home with his and denies further therapy needs such as OP Tx. PT is ordered and pending. Per ICU rounds, PT to eval once the pt BP better stabilizers. Pt and pt declines further questions or concerns at this time. Reji Bingham RN, CM
[2024-07-13 10:25] LABS: Hemoglobin 7.5 g/dL (13.0-16.5)
--- NOTE | 2024-07-13 16:21 | DS.PCM_ITS ---
Providers Date of Admission: 07/12/24 Primary Care Physician: Dr. 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 Incision site satisfactory in appearance without hematoma. I removed DOMINICK drain without issue, he tolerated this well. Levophed was held starting around 9 am; will continue to monitor blood pressures through the afternoon. Continue to hold home antihypertensive medicaitons. Continue Effient and Dipyridamole. Will plan for him to ambulate with nursing/PT. Possible discharge later this afternoon pending blood pressure stability. Medications at Discharge Home Medications albuterol sulfate 90 mcg/actuation aerosol inhaler (Ventolin HFA) 1 - 2 puff inhalation Q4H PRN PRN Wheezing ##1 05/02/14 montelukast 10 mg tablet (Singulair) 10 mg PO DAILY LUNGS 05/02/14 acetaminophen 325 mg capsule (Tylenol) 325 mg PO TID PRN fever or pain 11/20/21 mirtazapine 7.5 mg tablet 7.5 mg PO QHS RLS 04/11/24 losartan 100 mg tablet 100 mg PO QDAY BP #90 tabs 04/28/24 Held on 07/13/24. Instructions: Resume on 07/13/24. isosorbide mononitrate 30 mg tablet,extended release 24 hr 30 mg PO QAM HEART #30 tabs 05/20/24 Held on 07/13/24. Instructions: Resume on 07/13/24. atorvastatin 40 mg tablet 40 mg PO QHS CHOLESTEROL 06/03/24 nitroglycerin 0.4 mg sublingual tablet 0.4 mg sublingual Q5M PRN chest pain 06/03/24 amlodipine 10 mg tablet 10 mg PO QDAY BP #90 tabs 06/13/24 Held on 07/13/24. Instructions: Resume on 07/13/24. dipyridamole 50 mg tablet 100 mg (2 x 50 mg) PO Q6H anticoagulant 30 days #240 tabs 06/28/24 prasugrel HCl 10 mg tablet 10 mg PO QDAY #30 tabs 07/12/24 Hospital Course Operations - (L TCAR) Summary of Care Provided Hospital Course: Mr. Johnnie Alcazar is an 84 y/o male who underwent planned L TCAR on 07/13/24. The procedure was without complication and he tolerated it well. Postoperatively, he was routinely admitted to the ICU for hemodynamic and neurologic monitoring. He has remained neurologically stable throughout his admission. The night following surgery he had hypotension requiring vasopressor support; this was able to be weaned morning POD#1 and then he maintained good blood pressures through the rest of the day with his home antihypertensive regimen held. The incision site was satisfactory in appearance; DOMINICK drain was removed POD#1 without issue. He has been able to void without issue, has ambulated well with nursing, and has tolerated a normal diet. He is stable for discharge home with his . He will continue with Prasugrel (Effient) and Dipyridamole at discharge for his antiplatelet regimen. His antihypertensive medications will be held with parameters/directions provided for when to restart these. He will return to the office as scheduled 07/27 for follow-up. Physical Exam Const alert, oriented x3 and no apparent distress General Appearance: cooperative and comfortable HEENT normocephalic, head/scalp atraumatic, hearing grossly normal bilaterally, external ears normal and external nose normal Eyes EOMs intact bilaterally General Eye: normal appearance of both eyes Neck Neck Narrative: L neck incision site with skin glue intact, no dehiscence. Mild ecchymosis, minimal swelling. No hematoma, soft to palpation. DOMINICK drain with mild serosanguineous output. Resp normal respiratory effort, normal air movement, no retractions and no use of accessory muscles Effort and Inspection: able to speak in complete sentences; Negative for labored, grunting or stridor Cardio regular rate and regular rhythm Skin no rashes or lesions noted Neuro oriented x3, CN's II-XII intact bilaterally, moves all extremities and no focal motor deficits Speech: speech normal Psych mental status grossly normal Appearance: grossly normal Attitude: calm and engaged Activity / Motor Behavior: appropriate eye contact Speech: normal speech Weight / BMI Weight Weight: 156 lb 15.506 oz Body Mass Index (BMI) 23.8 ABG / Lab / Microbiology Data 07/13/24 10:10 Laboratory: Laboratory Results - last 24 hr 07/13/24 05:40: WBC 9.1, RBC 3.27 L, Hgb 7.7 L, Hct 25.2 L, MCV 77.1 L, MCH 23.5 L, MCHC 30.6 L, RDW Std Deviation 49.2 H, RDW Coeff of Heriberto 17.7 H, Plt Count 278, MPV 9.7, Immature Gran % (Auto) 0.800, Neut % (Auto) 72.1 H, Lymph % (Auto) 15.1 L, [place] % (Auto) 10.3 H, Eos % (Auto) 1.4, Baso % (Auto) 0.3, Absolute Neuts (auto) 6.5, Absolute Lymphs (auto) 1.37, Nucleated RBC % 0 07/13/24 10:10: Hgb 7.5 L D/C Instructions Discharge Diet: No restrictions May shower in (days): 1 Weight Bearing Status: Weight bearing as tolerated Lifting Restricted to (Lbs): 20 Lifting Restrictions: Do not lift greater than 20 pounds for 3 weeks Call your doctor if your incision/area has: Sudden Increased Bleeding, Increased Pain/ Swelling and Foul Smelling Discharge Call your doctor if you observe: Fever of 101 or Higher and Uncontrolled pain DC O2, CPAP, BIPAP Needs Home O2 Discharge instructions: No Additional Instructions: INCISION CARE: * You have a small bandage on your neck over the site from which the surgical drain was removed. You may remove this bandage tomorrow. As long as there is no residual drainage, you may leave this open to air. If you do notice some continued drainage, you may re-cover with a Band-Aid. * You also have a small bandage in your R groin over the puncture site there. You may also remove this bandage tomorrow. As long as there is no residual drainage, you may leave this open to air. If you do notice some continued drainage, you may re-cover with a Band-Aid and change this daily. * Your neck incision site is covered with skin glue which will continue to protect it. The skin glue will peel/flake off on its own over the next few weeks. Please do not pick at it. * You may shower tomorrow. It is okay for soap and water to rinse over the incision site, pat to dry. * Do not submerge the incision site in water such as to take a bath or go swimming etc. for 3 weeks. MEDICATION INSTRUCTIONS * Continue to take Dipyridamole 100mg tablet every 6 hours * Start to take Prasugrel (Effient) 10mg daily. A prescription for this has been sent to [facility]. * Stop Plavix (clopidogrel). * Hold Amlodipine 10mg daily, isosorbide mononitrate 30mg daily, and losartan 100 mg tablet once daily for now. Your blood pressures have been a bit lower than usual following surgery. Please check your blood pressure every morning and every evening or any time you feel dizzy/lightheaded or have other symptoms. When your systolic blood pressure (top number) is 140 mmHg then restart your Amlodipine 10mg tablet daily first. Then continue to check your blood pressure daily and if it is again >140 on the top, restart your losartan 100mg tablet daily. Then continue to check your blood pressure daily and if it is again >140 on the top, restart your isosorbide mononitrate 30mg daily. * Call the office at [phone] with any questions about your medications ACTIVITY INSTRUCTIONS * Do not lift greater than 20 pounds for 3 weeks. Otherwise, please continue with activity as tolerated. * Do not drive until you can turn your head well enough to safely check your blind spots. Please Follow Up With: Madeleine Centeno PA When: 07/27/2024 Meaningful Use Info Meaningful Use Meaningful Use Diagnoses (Choose all that apply): None applicable Ischemic Stroke Statin Dosing Therapy Reference: STATIN DOSE THERAPY REFERENCE: * Patients > 75 years receive moderate or high dose statin therapy. * Patients 75 years or YOUNGER should receive HIGH intensity statin dose unless contraindicated. You will be required to document reason for non-treatment if statin daily dose does not meet guidelines. HIGH DOSE STATIN THERAPY DAILY Atorvastatin > than or = to 40 mg Rosuvastatin > than or = to 20 mg Amlodipine + Atorvastatin > than or = to 2.5/40 mg Ezetimibe + Simvastatin 10/80 mg Simvastatin 80mg Discharge Plan Admission Admit Date/Time: 07/12/24 10:11 Attending Provider: Kelton Blakely Primary Care Provider: J Luis Mcgill Chi Instructions Additional Instructions / Restrictions: INCISION CARE: * You have a small bandage on your neck over the site from which the surgical drain was removed. You may remove this bandage tomorrow. As long as there is no residual drainage, you may leave this open to air. If you do notice some continued drainage, you may re-cover with a Band-Aid. * You also have a small bandage in your R groin over the puncture site there. You may also remove this bandage tomorrow. As long as there is no residual drainage, you may leave this open to air. If you do notice some continued drainage, you may re-cover with a Band-Aid and change this daily. * Your neck incision site is covered with skin glue which will continue to protect it. The skin glue will peel/flake off on its own over the next few weeks. Please do not pick at it. * You may shower tomorrow. It is okay for soap and water to rinse over the incision site, pat to dry. * Do not submerge the incision site in water such as to take a bath or go swimming etc. for 3 weeks. MEDICATION INSTRUCTIONS * Continue to take Dipyridamole 100mg tablet every 6 hours * Start to take Prasugrel (Effient) 10mg daily. A prescription for this has been sent to [facility]. * Stop Plavix (clopidogrel). * Hold Amlodipine 10mg daily, isosorbide mononitrate 30mg daily, and losartan 100 mg tablet once daily for now. Your blood pressures have been a bit lower than usual following surgery. Please check your blood pressure every morning and every evening or any time you feel dizzy/lightheaded or have other symptoms. When your systolic blood pressure (top number) is 140 mmHg then restart your Amlodipine 10mg tablet daily first. Then continue to check your blood pressure daily and if it is again >140 on the top, restart your losartan 100mg tablet daily. Then continue to check your blood pressure daily and if it is again >140 on the top, restart your isosorbide mononitrate 30mg daily. * Call the office at [phone] with any questions about your medications ACTIVITY INSTRUCTIONS * Do not lift greater than 20 pounds for 3 weeks. Otherwise, please continue with activity as tolerated. * Do not drive until you can turn your head well enough to safely check your blind spots. Discharge Orders/Prescriptions Prescriptions: Continued acetaminophen [Tylenol] 325 mg capsule 325 mg PO TID PRN (Reason: fever or pain) mirtazapine 7.5 mg tablet 7.5 mg PO QHS nitroglycerin 0.4 mg tablet, sublingual 0.4 mg sublingual Q5M PRN (Reason: chest pain) Rx Instructions: do not exceed 3 doses per episode atorvastatin 40 mg tablet 40 mg PO QHS dipyridamole 50 mg tablet 100 mg PO Q6H 30 Days Qty: 240 1RF Rx Instructions: administer 1 hour before or 2 hours after food or meals montelukast [Singulair] 10 MG tablet 10 mg PO DAILY Patient Comments: lungs albuterol sulfate [Ventolin HFA] 1 INHALER inhaler 1 - 2 puff inhalation Q4H PRN PRN (Reason: Wheezing) Qty: 1 0RF Patient Comments: lungs, shortness of breath prasugrel HCl 10 mg tablet 10 mg PO QDAY Qty: 30 0RF Held isosorbide mononitrate 30 mg tablet extended release 24 hr 30 mg PO QAM Qty: 30 3RF Hold Instructions: Resume on 07/13/24. losartan 100 mg tablet 100 mg PO QDAY Qty: 90 3RF Hold Instructions: Resume on 07/13/24. amlodipine 10 mg tablet 10 mg PO QDAY Qty: 90 3RF Hold Instructions: Resume on 07/13/24. Discontinued clopidogrel 75 mg tablet 75 mg PO QDAY Referrals / Follow Up: J Luis Mcgill Chi, MD [Primary Care Provider] - Disposition Disposition (needs filled in before D/C Order can be placed): Home, Self Care
== END 2024-07-13 17:23 | disposition home or self-care (01) | DRG 36 ==
PROVIDERS: Physician Assistant; Admitting Provider Surgery Trauma Surgery; PCP Family Medicine Geriatric Medicine; Referring Provider Surgery Trauma Surgery; Visit Provider Surgery Trauma Surgery
PROC: 037L3DZ Dilation of Left Internal Carotid Artery with Intraluminal Device, Percutaneous Approach (ICD-10-PCS; CPT 37236; principal; 2024-07-12 07:30)
DX: I65.22 Occlusion and stenosis of left carotid artery (principal); E87.8 Other disorders of electrolyte and fluid balance, not elsewhere classified; E78.5 Hyperlipidemia, unspecified; I10 Essential (primary) hypertension; I95.81 Postprocedural hypotension; Z79.02 Long term (current) use of antithrombotics/antiplatelets; Z79.899 Other long term (current) drug therapy; Z88.8 Allergy status to other drugs, medicaments and biological substances; Z88.6 Allergy status to analgesic agent
CPT/HCPCS: 37215; 76937; 85018; 85025; 85347; 86850; 86900; 86901; 94668; 94762; 99252; C1725; C1769; C1876; C1884; C1894; Q9967; A4216; G0463

== ENCOUNTER → 2024-08-10 | Outpatient (CLI) | payer MEDICARE, SELFPAY ==
[2024-08-10 15:45] LABS: Absolute Lymphocyte Count 1.27 X10^3/uL (0.83-4.51); Absolute Neutrophil Count 7.7 X10^3/uL (2.0-7.7); Basophil# 0.05 X10^3/uL; Basophil% 0.5 % (0-1); Eosinophils% 1.8 % (0-5); Hematocrit 29.7 % (40-54); Hemoglobin 8.8 g/dL (13.0-16.5); Lymphocyte # 1.27 X10^3/ul (0.83-4.51); Lymphocyte % 11.7 % (19-41); Mean Corp Hgb Conc 29.6 g/dL (32-36); Mean Corpuscular Hgb 23.3 pg (27.0-32.0); Mean Corpuscular Volume 78.6 fL (80-94); Mean Platelet Vol. 9.7 fl (6.2-12.0); Monocyte# 1.44 X10^3/uL; Monocyte% 13.3 % (0-10); NRBC Flagged by Analyzer 0 % (0-5); Neutrophil # 7.73 X10^3/uL (2.7-7.7); Neutrophil % 71.5 % (47-70); Platelet Count 489 K/mm3 (150-450); RBC Distribution Width CV 17.3 % (11.6-14.6); Red Blood Count 3.78 M/mm3 (4.6-6.2); White Blood Count 10.8 K/mm3 (4.4-11.0)
[2024-08-11 11:14] LABS: ALB/GLOB Ratio 1.4 RATIO (0.9-2.4); AST(SGOT) 18 U/L (<=37); Alanine Aminotransfer ALT/SGPT 10 U/L (<=46); Albumin, Serum 3.8 g/dL (3.4-4.8); Alkaline Phosphatase 132 U/L (40-129); Anion Gap 12 (5-15); BUN 13 mg/dL (4-19); BUN/Creat Ratio 13.5 RATIO (10-20); Calcium,Total 8.5 mg/dL (7.6-11.0); Carbon Dioxide 23.5 mmol/L (21.0-32.0); Chloride 106 mmol/L (98-108); Creatinine, Serum 0.95 mg/dL (0.70-1.20); EST Glomerular Filtration Rate 78 (>60); Globulin 2.7 g/dL (2.2-4.2); Glucose 85 mg/dL (70-99); Potassium 3.4 mmol/L (3.3-5.1); Protein, Total 6.5 g/dL (5.9-8.4); Sodium Level 142 mmol/L (133-145); Total Bilirubin 0.18 mg/dL (0.00-1.30); Vitamin D,25 Hydroxy 9.3 ng/mL (30-100)
== END | disposition home or self-care (01) ==
LOC: LAB 14:01
PROVIDERS: PCP Family Medicine Geriatric Medicine; Referring Provider Family Medicine Geriatric Medicine; Visit Provider Family Medicine Geriatric Medicine
DX: I10 Essential (primary) hypertension (principal); E55.9 Vitamin D deficiency, unspecified
CPT/HCPCS: 36415; 80053; 82306; 84443; 85025

== ENCOUNTER → 2024-08-12 | Outpatient (CLI) | payer MEDICARE, SELFPAY ==
--- NOTE | 2024-08-12 09:57 | CDU_ITS ---
Reason For Study Reason For Study: S/P L TCAR Rt. Velocities/BP Lt. Velocities/BP Prox CCA 82.8/19.0 cm/sec. Prox CCA 91.2/21.2 cm/sec. Mid CCA 115.6/13.3 cm/sec. Mid CCA, Pre Stent - 66.7/16.3 cm/s. Dist CCA 117.4/20.6 cm/sec. Dist CCA, Prox Stent - 76.5/15.1 cm/s. Prox ICA 57.5/11.3 cm/sec. Prox ICA, Mid Stent - 86.3/16.0 cm/s. Mid ICA 106.0/26.2 cm/sec. Mid ICA, DIst Stent - 101.6/27.0 cm/s. Dist ICA 83.9/28.6 cm/sec. Dist ICA, Dist to Stent - 103.8/31.4 cm/s. Rt. ICA/CCA = 0.9. Lt. ICA/CCA = 1.5. Prox ECA 174.1/9.4 cm/sec. Prox ECA 344.9/43.2 cm/sec. Rt. Vert. 63.0/14.6 cm/sec. Lt. Vert. 48.7/10.2 cm/sec. Right Extracranial There is intimal thickening but no significant atherosclerotic plaque noted in the right common carotid artery. There is heterogeneous, irregular atherosclerotic plaque noted in the right internal carotid artery. There is heterogeneous, irregular atherosclerotic plaque noted in the right external carotid artery. Antegrade flow is noted in the right vertebral artery. Left Extracranial There is homogeneous, smooth atherosclerotic plaque noted in the left common carotid artery. Stent noted in Distal CCA to Mid ICA. There is heterogeneous, irregular atherosclerotic plaque noted in the left internal carotid artery. There is heterogeneous, irregular atherosclerotic plaque noted in the left external carotid artery. Antegrade flow is noted in the left vertebral artery. Procedure Carotid Duplex 39943. This is a Carotid Duplex examination using B-mode, color flow and specral Doppler. Exam performed in department. VL/Carotid Duplex Ultrasound Interpretation Summary Mild (<50%) stenosis right extracranial internal carotid. Mild (<50%) stenosis left extracranial internal carotid. Patent and antegrade vertebrals bilaterally. Ordering Physician: Madeleine Centeno Referring Physician: J Luis Mcgill Chi Performed By: Libby Pimentel RVT
== END | disposition home or self-care (01) ==
LOC: CVS 09:55
PROVIDERS: PCP Family Medicine Geriatric Medicine; Referring Provider Physician Assistant; Visit Provider Physician Assistant
DX: I65.22 Occlusion and stenosis of left carotid artery (principal)
CPT/HCPCS: 93880

== ENCOUNTER → 2024-08-16 | Outpatient (CLI) | payer MEDICARE, SELFPAY ==
[2024-08-16 15:01] LABS: Absolute Lymphocyte Count 1.38 X10^3/uL (0.83-4.51); Absolute Neutrophil Count 7.1 X10^3/uL (2.0-7.7); Basophil# 0.06 X10^3/uL; Basophil% 0.6 % (0-1); Eosinophil# 0.26 X10^3/uL; Eosinophils% 2.6 % (0-5); Hematocrit 29.8 % (40-54); Hemoglobin 8.8 g/dL (13.0-16.5); Lymphocyte # 1.38 X10^3/ul (0.83-4.51); Lymphocyte % 13.9 % (19-41); Mean Corp Hgb Conc 29.5 g/dL (32-36); Mean Corpuscular Hgb 22.8 pg (27.0-32.0); Mean Corpuscular Volume 77.2 fL (80-94); Mean Platelet Vol. 9.9 fl (6.2-12.0); Monocyte# 1.02 X10^3/uL; Monocyte% 10.3 % (0-10); NRBC Flagged by Analyzer 0 % (0-5); Neutrophil # 7.06 X10^3/uL (2.7-7.7); Neutrophil % 71.4 % (47-70); Platelet Count 508 K/mm3 (150-450); RBC Distribution Width CV 17.4 % (11.6-14.6); RET-HE 21.1 pg (30-35); Red Blood Count 3.86 M/mm3 (4.6-6.2); Reticulocyte Count 1.46 % (0.5-1.5); White Blood Count 9.9 K/mm3 (4.4-11.0)
[2024-08-16 16:13] LABS: Ferritin 21 ng/mL (37-417); Iron 32 ug/dL (65-175); Iron Binding Capacity,Total 349 ug/dL (250-450); Iron Binding Capacity,Unsat 317 ug/dL (228-428); Vitamin B12 499 pg/mL (180-914)
[2024-08-16 16:14] LABS: FOLATES,SERUM (FOLIC ACID) 6.61 ng/mL (4.60-34.80)
== END | disposition home or self-care (01) ==
LOC: LAB 14:20
PROVIDERS: PCP Family Medicine Geriatric Medicine; Referring Provider Family Medicine Geriatric Medicine; Visit Provider Family Medicine Geriatric Medicine
DX: D50.9 Iron deficiency anemia, unspecified (principal)
CPT/HCPCS: 36415; 82607; 82728; 82746; 83540; 83550; 85025; 85045

== ENCOUNTER → 2024-09-21 | Outpatient (CLI) | payer MEDICARE, SELFPAY | END | disposition home or self-care (01) | LOC: LABSPEC 11:35 | PROVIDERS: PCP Family Medicine Geriatric Medicine; Referring Provider Family Medicine Geriatric Medicine; Visit Provider Family Medicine Geriatric Medicine | DX: D64.9 Anemia, unspecified (principal) | CPT/HCPCS: 82274 ==

== ENCOUNTER → 2024-09-27 | Outpatient (CLI) | payer MEDICARE, SELFPAY ==
[2024-09-27 11:35] LABS: Hematocrit 29.5 % (40-54); Hemoglobin 8.5 g/dL (13.0-16.5); Immature Granulocytes Count 0.050 X10^3/uL (0.0-0.0); Mean Corp Hgb Conc 28.8 g/dL (32-36); Mean Corpuscular Volume 77.0 fL (80-94); Mean Platelet Vol. 9.5 fl (6.2-12.0); NRBC Flagged by Analyzer 0 % (0-5); Platelet Count 482 K/mm3 (150-450); RBC Distribution Width CV 16.5 % (11.6-14.6); RBC Distribution Width SD 45.9 fl (35.1-43.9); Red Blood Count 3.83 M/mm3 (4.6-6.2); White Blood Count 10.4 K/mm3 (4.4-11.0)
== END | disposition home or self-care (01) ==
LOC: LAB 10:50
PROVIDERS: PCP Family Medicine Geriatric Medicine; Referring Provider Student in an Organized Health Care Education/Training Program; Visit Provider Student in an Organized Health Care Education/Training Program
DX: D64.9 Anemia, unspecified (principal)
CPT/HCPCS: 36415; 85025

== ENCOUNTER → 2024-12-07 | Outpatient (CLI) | payer MEDICARE, SELFPAY | END | disposition home or self-care (01) | LOC: POLAB3 14:51 | PROVIDERS: PCP Family Medicine Geriatric Medicine; Visit Provider Family Medicine Geriatric Medicine | DX: J98.8 Other specified respiratory disorders (principal) | CPT/HCPCS: 87631 ==

== ENCOUNTER → 2024-12-27 | Outpatient (CLI) | payer MEDICARE, SELFPAY ==
--- NOTE | 2024-12-27 17:11 | CT_ITS ---
PROCEDURE: CTA CHEST W/WO CONTRAST 12/27/2024 REASON FOR EXAM: SHORTNESS OF BREATH TECHNIQUE: Procedure Code: [id number] Modality: CT Procedure: CTA CHEST W/WO CONTRAST Multiplanar Sagittal and Coronal images were obtained. CONTRAST: 100 mL of Isovue 370 One or more dose reduction techniques were used (e.g., Automated exposure control, adjustment of the mA and/or kV according to patient size, use of iterative reconstruction technique). RADIATION DOSE SUMMARY: DLP: 248 mGycm COMPARISON: None FINDINGS: PULMONARY ARTERIES: No evidence of pulmonary embolism. LUNGS AND PLEURA: No large focal consolidations. No definite pulmonary edema. Scattered numerous small pulmonary nodular densities and tree-in-bud densities likely reflective of atypical pneumonia and/or postinflammatory etiology. Scattered septic emboli, metastatic disease, and/or mucoid impaction not entirely excluded under appropriate clinical context. Trace left base effusion. No pneumothorax. MEDIASTINUM: Prominent mediastinal lymph nodes.. The heart shows no acute findings. Extensive coronary atherosclerosis. Moderate atherosclerosis of thoracic aorta most prominent at lower thoracic descending aorta best seen on series 2, image 60. The aorta shows no acute findings. The pulmonary trunk, and branches of the vessels in the mediastinum are within normal limits. SUPRACLAVICULAR AND AXILLARY: No abnormalities seen in these regions. No mass or significant lymphadenopathy. UPPER ABDOMEN: The visualized upper abdomen is unremarkable. BONES AND SOFT TISSUES: The ribs are unremarkable. The visualized spine shows no significant acute findings. No focal bony mass lesions noted. The subcutaneous soft tissues are unremarkable. CT/CTA Chest W/WO Contrast IMPRESSION: No acute pulmonary emboli. No large focal consolidations. Scattered numerous small pulmonary nodular densities and tree-in-bud densities likely reflective of atypical pneumonia, postinflammatory etiology, septic emboli, metastatic disease, and/or mucoid imp action under appropriate clinical context. Appearance favors septic emboli. Reading Location: [id number]
== END | disposition home or self-care (01) ==
LOC: CT 16:44
PROVIDERS: PCP Family Medicine Geriatric Medicine; Referring Provider Family Medicine Geriatric Medicine; Visit Provider Family Medicine Geriatric Medicine
DX: R06.02 Shortness of breath (principal); R79.1 Abnormal coagulation profile
CPT/HCPCS: 71275; Q9967

== ENCOUNTER → 2024-12-27 | Outpatient (CLI) | payer MEDICARE, SELFPAY ==
--- NOTE | 2024-12-27 15:11 | RAD_ITS ---
PROCEDURE: CHEST PA AND LATERAL 12/27/2024 REASON FOR EXAM: SOB TECHNIQUE: Procedure Code: RADCXR Modality: DX Procedure: CHEST PA AND LATERAL COMPARISON: Two-view chest, 05/20/2024. FINDINGS: There is cardiomegaly, pulmonary venous hypertension and pulmonary interstitial edema consistent with congestive heart failure. There are no pleural effusions. RAD/Chest PA and Lateral IMPRESSION: Congestive heart failure. Reading Location: [id number]
[2024-12-27 15:25] LABS: Hematocrit 24.4 % (40-54); Hemoglobin 6.9 g/dL (13.0-16.5); Immature Granulocytes Count 0.050 X10^3/uL (0.0-0.0); Mean Corp Hgb Conc 28.3 g/dL (32-36); Mean Corpuscular Volume 70.9 fL (80-94); Mean Platelet Vol. 9.5 fl (6.2-12.0); NRBC Flagged by Analyzer 0 % (0-5); Platelet Count 429 K/mm3 (150-450); RBC Distribution Width CV 18.1 % (11.6-14.6); RBC Distribution Width SD 45.6 fl (35.1-43.9); Red Blood Count 3.44 M/mm3 (4.6-6.2); White Blood Count 7.6 K/mm3 (4.4-11.0)
[2024-12-27 15:59] LABS: D-Dimer Quantitative (DVT/PE) 2.19 FEU/ug/m (0.27-0.49)
[2024-12-27 16:47] LABS: AST(SGOT) 20 U/L (<=37); Alanine Aminotransfer ALT/SGPT 10 U/L (<=46); Albumin, Serum 3.8 g/dL (3.4-4.8); Alkaline Phosphatase 140 U/L (40-129); Anion Gap 11 (5-15); BUN 11 mg/dL (4-19); BUN/Creat Ratio 11.2 RATIO (10-20); Calcium,Total 8.9 mg/dL (7.6-11.0); Carbon Dioxide 21.4 mmol/L (21.0-32.0); Chloride 105 mmol/L (98-108); Globulin 2.5 g/dL (2.2-4.2); Glucose 108 mg/dL (70-99); Potassium 3.6 mmol/L (3.3-5.1)
== END | disposition home or self-care (01) ==
PROVIDERS: PCP Family Medicine Geriatric Medicine; Referring Provider Family Medicine Geriatric Medicine; Visit Provider Family Medicine Geriatric Medicine
DX: J98.8 Other specified respiratory disorders (principal); I10 Essential (primary) hypertension; E03.9 Hypothyroidism, unspecified; R79.1 Abnormal coagulation profile; R06.02 Shortness of breath
CPT/HCPCS: 36415; 71046; 80053; 84443; 85025; 85379; 87631

== ENCOUNTER → 2024-12-28 | Outpatient (CLI) | payer MEDICARE, SELFPAY ==
[2024-12-28 09:40] LABS: CRP 8.47 mg/L (0.0-3.0)
[2024-12-28 17:28] LABS: Xtra Tube Kwok EXTRA TUBE
== END | disposition home or self-care (01) ==
LOC: POLAB3 08:58
PROVIDERS: PCP Family Medicine Geriatric Medicine; Visit Provider Family Medicine Geriatric Medicine
DX: D64.9 Anemia, unspecified (principal)
CPT/HCPCS: 36415; 85652; 86140; 86850; 86900; 86901; 87040

== ENCOUNTER → 2024-12-28 | Outpatient (CLI) | payer MEDICARE, SELFPAY ==
--- NOTE | 2024-12-28 10:24 | VDLE_ITS ---
Reason For Study Reason For Study: BLE Swelling RIGHT LEFT GSV is normal. GSV is normal. CFV is compressible, spontaneous, phasic, competent CFV is compressible, spontaneous, phasic, competent, and demonstrates normal augmentation. and demonstrates normal augmentation. FV is compressible, spontaneous, phasic, competent FV is compressible, spontaneous, phasic, competent and demonstrates normal augmentation. and demonstrates normal augmentation. POP V is compressible, spontaneous, phasic, competent POP V is compressible, spontaneous, phasic, competent and demonstrates normal augmentation. and demonstrates normal augmentation. T/P Trunk is compressible. T/P Trunk is compressible. PTV is compressible. PTV is compressible. RT PerV is compressible. LT PerV is compressible. Procedure This is a venous duplex using B-mode, color flow and spectral Doppler. Exam performed in department. The exam was diagnostic. A preliminary report was called and/or faxed to DR. CHARLES OFFICE. VL/Venous Duplex US - Hayes Extrem Interpretation Summary Deep veins of the lower extremities are bilaterally patent and compressible seg mentally. There is no evidence of deep vein thrombosis on either side. Valvular competence appears intact within the p roximal deep venous systems bilaterally. The great saphenous veins appear bilaterally patent and compressible segmentall y. Ordering Physician: J Luis Mcgill Chi Referring Physician: J Luis Mcgill Chi Performed By: Matt Napoles, RVT
== END | disposition home or self-care (01) ==
LOC: CVS 10:23
PROVIDERS: PCP Family Medicine Geriatric Medicine; Referring Provider Family Medicine Geriatric Medicine; Visit Provider Family Medicine Geriatric Medicine
DX: R22.43 Localized swelling, mass and lump, lower limb, bilateral (principal); I26.90 Septic pulmonary embolism without acute cor pulmonale; I65.22 Occlusion and stenosis of left carotid artery
CPT/HCPCS: 93970

== ENCOUNTER 2024-12-29 08:31 | Outpatient (CLI) | payer MEDICARE, SELFPAY ==
[2024-12-29 08:52] VITALS: BP 150/57; PULSE 77; RESP 16; TEMP 35.9; O2SAT 97; BMI 22.6
[2024-12-29 09:47] VITALS: BP 132/53; PULSE 70; RESP 16; TEMP 36
[2024-12-29 10:47] VITALS: BP 139/60; PULSE 65; RESP 16; TEMP 36.1; O2SAT 98
[2024-12-29 11:49] VITALS: BP 160/63; PULSE 78; RESP 16; TEMP 36.1; O2SAT 99
[2024-12-29 12:44] VITALS: BP 141/63; PULSE 71; RESP 16; TEMP 36.1; O2SAT 98
[2024-12-29 14:39] VITALS: BP 145/62; PULSE 76; RESP 16; TEMP 36.2; O2SAT 98
== END 2024-12-29 23:59 | disposition home or self-care (01) ==
LOC: MEDOUTP 08:32
PROVIDERS: PCP Family Medicine Geriatric Medicine; Referring Provider Family Medicine Geriatric Medicine; Visit Provider Family Medicine Geriatric Medicine
DX: D64.9 Anemia, unspecified (principal)
CPT/HCPCS: 36430; 86644; P9016; A4216

== ENCOUNTER → 2025-01-02 | Outpatient (CLI) | payer MEDICARE, SELFPAY ==
[2025-01-02 14:41] LABS: Hematocrit 32.3 % (40-54); Hemoglobin 9.6 g/dL (13.0-16.5)
== END | disposition home or self-care (01) ==
LOC: POLAB3 14:08
PROVIDERS: PCP Family Medicine Geriatric Medicine; Visit Provider Family Medicine Geriatric Medicine
DX: D64.9 Anemia, unspecified (principal); R79.82 Elevated C-reactive protein (CRP)
CPT/HCPCS: 82274; 85014; 85018

== ENCOUNTER 2025-01-11 11:29 | Day surgery (SDC) | payer MEDICARE, SELFPAY ==
--- NOTE | 2025-01-10 09:25 | PAT.ANESEVAL ---
Pre-Assessment Diagnosis/Proposed Procedure Planned Operative Procedure(s): COLONOSCOPY/EGD Anesthesia History Anesthesia History - verification rep: Anesthesia History - verification rep Hx Hospitalization Yes: 06/2024 SURGERY 01/10/25 08:37 Any Problems With Anesthesia No 01/10/25 08:37 Cholinesterase deficiency No 01/10/25 08:37 You/Your Family Experience No 01/10/25 08:37 fever (hyperthermia) with Relationship Recent Exposure to Contagious No 07/12/24 06:28 Disease Does patient have nerve No 01/10/25 08:37 stimulator Patient instructed to have device shut off --Does patient have Pacemaker or ICD? When Was Last Pacemaker Check QUESTION #4 FULL TEXT: You/Your Family Experience fever (hyperthermia) with Anesthesia Last Oral Intake Last Oral intake: Last Oral Intake NPO since Meds taken in AM with sips of water? 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 - verification rep: PONV - verification rep Female No 01/10/25 08:37 HX of Motion Sickness No 01/10/25 08:37 HX of N/V After Surgery No 01/10/25 08:37 Non-Smoker Yes 01/10/25 08:37 Duration of Surgery greater No 01/10/25 08:37 than 60 minutes Number of Risk Factors 1 01/10/25 08:37 PONV Score Low Risk 01/10/25 08:37 Height & Weight Height & Weight: Anesthesia: Height & Weight Height 5 ft 8 in 12/29/24 08:52 Respiratory Assessment Respiratory Assessment - verification rep: Respiratory Tract Infection Hx - verification rep Hx Respiratory Tract Infection No 01/10/25 08:37 STOP Sleep Apnea STOP Sleep Apnea - verification rep: STOP Sleep Apnea - verification rep Hx Hypertension No 01/10/25 08:37 Hx Sleep Apnea No 01/10/25 08:37 CPAP BIPAP Do you snore loudly (louder No 01/10/25 08:37 than talking or can be heard Do you often feel tired/ No 01/10/25 08:37 fatigued/ sleepy during daytime? Has anyone observed you stop No 01/10/25 08:37 breathing during sleep? STOP Results Negative 01/10/25 08:37 QUESTION #5 FULL TEXT : Do you snore loudly (louder than talking or can be heard through closed doors)? 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 Specify any problems Hx of Preganancy in last 3 N/A 01/10/25 08:37 Months Nurse Filling Out Transfusion VCHRISTIN 01/10/25 08:37 & Questions: Date: 01/10/25 01/10/25 08:37 Time: 08:38 01/10/25 08:37 Patient unable to answer at this time (ie. confused, unrespo /Reproduction History /Reproductive History - verification rep: /Reproductive Hx- verification rep Hx Now Gestational Age (in weeks): EDC: Hx Hx Para Hx Section SAB PFSH Medical History (Updated 01/10/25 @ 08:37 by Madison Arredondo) Tear of right biceps muscle Wears hearing aid Wears dentures Wears glasses High cholesterol Easy bruising Restless legs Non-smoker Shortness of breath on exertion History of echocardiogram History of stress test Cardiology follow-up encounter Left lateral epicondylitis Vitamin D deficiency Iron deficiency anemia Hiatal hernia Hyperlipidemia Essential (primary) hypertension Bilateral carpal tunnel syndrome Chest pain CVA (cerebral vascular accident) Benign prostatic hyperplasia without urinary obstruction Diverticulitis Syncope and collapse Asthma Cubital tunnel syndrome on left Cervical radiculopathy Cervical strain Home Medications ?Medication ?Instructions ?Recorded ?Last Taken ?Type albuterol sulfate 90 mcg/actuation 1 - 2 puff inhalation Q4H PRN PRN 05/02/14 07/11/24 Rx aerosol inhaler (Ventolin HFA) Wheezing ##1 montelukast 10 mg tablet 10 mg PO DAILY LUNGS 05/02/14 07/11/24 History (Singulair) acetaminophen 325 mg capsule 325 mg PO TID PRN fever or pain 11/20/21 Unknown History (Tylenol) mirtazapine 7.5 mg tablet 7.5 mg PO QHS RLS 04/11/24 07/11/24 History atorvastatin 40 mg tablet 40 mg PO QHS CHOLESTEROL 06/03/24 07/11/24 History nitroglycerin 0.4 mg sublingual 0.4 mg sublingual Q5M PRN chest 06/03/24 Unknown History tablet pain amlodipine 10 mg tablet 10 mg PO QDAY BP #90 tabs 06/13/24 07/12/24 Rx prasugrel HCl 10 mg tablet 10 mg PO QDAY #30 tabs 07/27/24 Unknown Rx isosorbide mononitrate 30 mg 30 mg PO QAM HEART #30 tabs 10/18/24 Unknown Rx tablet,extended release 24 hr losartan 50 mg tablet 50 mg PO DAILY 01/10/25 Unknown History polysaccharide iron complex 150 mg 150 mg PO DAILY 01/10/25 Unknown History iron capsule Allergy/AdvReac Type Severity Reaction Status Date / Time naproxen (From Aleve) Allergy Unknown palpitaions, Verified 01/10/25 08:26 SOB aspirin Allergy Shortness Verified 01/10/25 08:26 of breath ibuprofen Allergy Other Verified 01/10/25 08:26 Family History Sister Cancer Mother Bleeding disorder Surgical History (Updated 01/10/25 @ 08:37 by Madison Arredondo) History of transcarotid artery revascularization (TCAR) History of cardiac catheterization Hx of bilateral cataract extraction History of appendectomy Myringotomy tube status (~2005) Social History [facility] members: [facility] number of children: 2 pets and animals: Yes (maltise-dog) Smoking Status: Never smoker alcohol intake: never substance use type: does not use caffeine: Yes Type: coffee Number of servings: 2 Audit: Pertinent Findings Pertinent Findings EKG Perinent findings: 05/20/2024. Sinus rhythm within normal limits. Stress test pertinent findings: 03/08/2024. EF of 64%. No areas of reversibility are noted to suggest ischemia. No previous infarct. Echo (EF%) pertinent findings: 05/18/2024. EF of 65%. No aortic stenosis. Heart catheterization pertinent findings: 06/13/2024. Atherosclerotic cardiovascular disease with no high-grade stenosis. LAD is moderate irregularities up to 50%. RCA has mild irregularities less than 30%. EF of 60%. Consult pertinent findings: 08/05/2024. Nithin JARAMILLO. 1. Essential hypertension-elevated in the office today. Continue amlodipine, isosorbide and losartan. Patient is to monitor blood pressures at home and report back. 2. 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 Followed by vascular. Recommendation Anesthesia Recommendation Anesthesia recommendation: OPTIMIZED for anesthesia (Follow-up on blood pressure on day of surgery. Otherwise okay for surgery.)
--- NOTE | 2025-01-11 11:55 | PCM.PRE.AN2 ---
ASA Classification* ASA Classification ASA Classification: 3 Assessment & Plan Anesthesia* Anesthesia Assessment Anesthesia Assessment: Discussed sedation and/or anesthesia options, risks, benefits, and alternatives with patient/parents/legal guardian/POA. Questions invited. The patient/parents/legal guardian/POA seems to understand and agrees to proceed with anesthesia plan. Reviewed the physical assessment, medical history, allergy history and patient home medications list prior to surgery/procedure/anesthetic and documented any changes. Performed airway and anesthesia risk assessments. Anesthesia Type Anesthesia Type: MAC Anesthesia Focused Assessment* Airway Assessment Mouth opens: >3 cm Mallampati Score: II Labs Anesthesia Preop lab: CBC WBC, (4.4-11.0) 7.6 K/mm3 12/27/24, : RBC, (4.6-6.2) 3.44 M/mm3 L 12/27/24, : Hgb, (13.0-16.5) 9.6 g/dL L 01/02/25, 14: Hct, (40-54) 32.3 % L 01/02/25, 14:09 Plt Count, (150-450) 429 K/mm3 12/27/24, 14:55 CHEMISTRY Potassium, (3.3-5.1) 3.6 mmol/L 12/27/24, :55 Sodium, (133-145) 138 mmol/L 12/27/24, 14:55 BUN, (4-19) 11 mg/dL 12/27/24, 14: Creatinine, (0.70-1.20) 0.97 mg/dL 12/27/24, : Glucose, (70-99) 108 mg/dL H 12/27/24, 14:55 TSH, (0.300-4.200) 1.390 uIU/mL 12/27/24, 14:55 COAG Pre-Assessment Diagnosis/Proposed Procedure Planned Operative Procedure(s): COLONOSCOPY/EGD Anesthesia History 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 When Was Last Pacemaker Check QUESTION #4 FULL TEXT: You/Your Family Experience fever (hyperthermia) with Anesthesia Last Oral Intake Last Oral intake: Last Oral Intake NPO since Meds taken in AM with sips of water? 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 Has anyone observed you stop No 01/10/25 08:37 breathing during sleep? STOP Results Negative 01/10/25 08:37 QUESTION #5 FULL TEXT : Do you snore loudly (louder than talking or can be heard through closed doors)? 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 Specify any problems Hx of Preganancy in last 3 N/A 01/10/25 08:37 Months Nurse Filling Out Transfusion VCHRISTIN 01/10/25 08:37 & Questions: Date: 01/10/25 01/10/25 08:37 Time: 08:38 01/10/25 08:37 Patient unable to answer at this time (ie. 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 park entertainer: /Reproductive Hx- amusement park entertainer Hx Now Gestational Age (in weeks): EDC: Hx Hx Para Hx Section SAB Active Medications Active Medications: Current Medications Generic Name Dose Route Start Last Admin Trade Name Freq PRN Reason Stop Dose Admin Lactated Ringer's 1,000 mls @ 15 mls/hr 01/11/25 11:45 IV .Q48H SINDI PFSH Medical History Tear of right biceps muscle Wears hearing aid Wears dentures Wears glasses High cholesterol Easy bruising Restless legs Non-smoker Shortness of breath on exertion History of echocardiogram History of stress test Cardiology follow-up encounter Left lateral epicondylitis Vitamin D deficiency Iron deficiency anemia Hiatal hernia Hyperlipidemia Essential (primary) hypertension Bilateral carpal tunnel syndrome Chest pain CVA (cerebral vascular accident) Benign prostatic hyperplasia without urinary obstruction Diverticulitis Syncope and collapse Asthma Cubital tunnel syndrome on left Cervical radiculopathy Cervical strain Home Medications ?Medication ?Instructions ?Recorded ?Last Taken ?Type albuterol sulfate 90 mcg/actuation 1 - 2 puff inhalation Q4H PRN PRN 05/02/14 07/11/24 Rx aerosol inhaler (Ventolin HFA) Wheezing ##1 montelukast 10 mg tablet 10 mg PO DAILY LUNGS 05/02/14 07/11/24 History (Singulair) acetaminophen 325 mg capsule 325 mg PO TID PRN fever or pain 11/20/21 Unknown History (Tylenol) mirtazapine 7.5 mg tablet 7.5 mg PO QHS RLS 04/11/24 07/11/24 History atorvastatin 40 mg tablet 40 mg PO QHS CHOLESTEROL 06/03/24 07/11/24 History nitroglycerin 0.4 mg sublingual 0.4 mg sublingual Q5M PRN chest 06/03/24 Unknown History tablet pain amlodipine 10 mg tablet 10 mg PO QDAY BP #90 tabs 06/13/24 07/12/24 Rx prasugrel HCl 10 mg tablet 10 mg PO QDAY #30 tabs 07/27/24 Unknown Rx isosorbide mononitrate 30 mg 30 mg PO QAM HEART #30 tabs 10/18/24 Unknown Rx tablet,extended release 24 hr losartan 50 mg tablet 50 mg PO DAILY 01/10/25 Unknown History polysaccharide iron complex 150 mg 150 mg PO DAILY 01/10/25 Unknown History iron capsule Allergy/AdvReac Type Severity Reaction Status Date / Time naproxen (From Aleve) Allergy Unknown palpitaions, Verified 01/10/25 08:26 SOB aspirin Allergy Shortness Verified 01/10/25 08:26 of breath ibuprofen Allergy Other Verified 01/10/25 08:26 Family History Sister Cancer Mother Bleeding disorder Surgical History History of transcarotid artery revascularization (TCAR) History of cardiac catheterization Hx of bilateral cataract extraction History of appendectomy Myringotomy tube status (~2005) Social History household members: spouse housing: condominium number of children: 2 pets and animals: Yes (maltise-dog) Smoking Status: Never smoker alcohol intake: never substance use type: does not use caffeine: Yes Type: coffee Number of servings: 2 Review of Systems (Anesthesia) ROS Narrative System reviewed and no additional complaints, except as documented.
--- NOTE | 2025-01-11 12:08 | PCM.HP.STD ---
HPI - General General Date of Admission: 01/11/25 Date of Service: 01/11/25 Chief Complaint: Anemia HPI Narrative BOBY VAN, is a 84 M who presents [Chief Complaint: anemia Vascular surgery OV 06.27.24 for asym left carotid stenosis. Recommend TCAR. [facility] for TCAR 07.12.24 Referred to [facility] for blood in his stool and anemia. Pt has had chronic anemia over the past few years however recently it started to trend down even more. This prompted his PCP to do a stool test for blood which was positive. He endorses looser stools over the past two weeks. He has been on iron supplement for about a month now so stools are dark. He has never had an EGD or colonoscopy before. Denies family hx of colon cancer. He is on Plavix s/p TCAR in June 2024. ] [facility], [facility] Medical History Tear of right biceps muscle Wears hearing aid Wears dentures Wears glasses High cholesterol Easy bruising Restless legs Non-smoker Shortness of breath on exertion History of echocardiogram History of stress test Cardiology follow-up encounter Left lateral epicondylitis Vitamin D deficiency Iron deficiency anemia Hiatal hernia Hyperlipidemia Essential (primary) hypertension Bilateral carpal tunnel syndrome Chest pain CVA (cerebral vascular accident) Benign prostatic hyperplasia without urinary obstruction Diverticulitis Syncope and collapse Asthma Cubital tunnel syndrome on left Cervical radiculopathy Cervical strain Home Medications ?Medication ?Instructions ?Recorded ?Last Taken ?Type albuterol sulfate 90 mcg/actuation 1 - 2 puff inhalation Q4H PRN PRN 05/02/14 07/11/24 Rx aerosol inhaler (Ventolin HFA) Wheezing ##1 montelukast 10 mg tablet 10 mg PO DAILY LUNGS 05/02/14 07/11/24 History (Singulair) acetaminophen 325 mg capsule 325 mg PO TID PRN fever or pain 11/20/21 Unknown History (Tylenol) mirtazapine 7.5 mg tablet 7.5 mg PO QHS RLS 04/11/24 07/11/24 History atorvastatin 40 mg tablet 40 mg PO QHS CHOLESTEROL 06/03/24 07/11/24 History nitroglycerin 0.4 mg sublingual 0.4 mg sublingual Q5M PRN chest 06/03/24 Unknown History tablet pain amlodipine 10 mg tablet 10 mg PO QDAY BP #90 tabs 06/13/24 07/12/24 Rx prasugrel HCl 10 mg tablet 10 mg PO QDAY #30 tabs 07/27/24 Unknown Rx isosorbide mononitrate 30 mg 30 mg PO QAM HEART #30 tabs 10/18/24 Unknown Rx tablet,extended release 24 hr losartan 50 mg tablet 50 mg PO DAILY 01/10/25 Unknown History polysaccharide iron complex 150 mg 150 mg PO DAILY 01/10/25 Unknown History iron capsule Allergy/AdvReac Type Severity Reaction Status Date / Time naproxen (From Aleve) Allergy Unknown palpitaions, Verified 01/10/25 08:26 SOB aspirin Allergy Shortness Verified 01/10/25 08:26 of breath ibuprofen Allergy Other Verified 01/10/25 08:26 Family History Sister Cancer Mother Bleeding disorder Surgical History History of transcarotid artery revascularization (TCAR) History of cardiac catheterization Hx of bilateral cataract extraction History of appendectomy Myringotomy tube status (~2005) Social History [facility] members[facility] number of children: 2 pets and animals: Yes (maltise-dog) Smoking Status: Never smoker alcohol intake: never substance use type: does not use caffeine: Yes Type: coffee Number of servings: 2 ROS Constitutional Constitutional: Denies fatigue, fever(s), poor appetite, weight gain or weight loss Gastrointestinal Gastrointestinal: Denies belching, bloating, change in bowel habits, change in stool character, chewing difficulty, coffee ground emesis, constipation, cramping, diarrhea, dyspepsia, dysphagia, early satiety, excessive flatus, fecal incontinence, heartburn, hematemesis, hematochezia, hemorrhoids, loose stools, melena, nausea, odynophagia, rectal bleeding, tenesmus, vomiting or weight changes Physical Exam Const alert, oriented x3, no apparent distress and healthy appearing General Appearance: cooperative GI normal to inspection, nondistended, normoactive bowel sounds, soft to palpation, non-tender and non-distended Percussion: normal to percussion Rectal Exam: deferred Assessment & Plan Assessment/Plan (1) Fecal occult blood test positive: (2) Iron deficiency anemia: PLAN: Assessment and Plan Assessment and Plan (1) Iron deficiency anemia: Status: Acute Plan: Boby is an 84 yo male pt here today for evaluation of anemia and positive stool test for blood. Pt has had chronically low Hgb over the past few years however it recently started to down trend even more. PCP ordered stool testing which was positive for blood. He has never had an EGD or colonoscopy. He will be scheduled for EGD and colonoscopy however if hgb has improved will consider postponing scopes. Last CBC was in July with a stable hgb of 8.8. He is currently on Plavix s/p TCAR in June 2023. -Repeat hgb -Scheduled for EGD and colonoscopy -Consider postponing if hgb improves (2) Fecal occult blood test positive: Status: Acute Orders: Orders CBC W/Diff, Automated Today D64.9 - Anemia, unspecified
[2025-01-11 12:17] VITALS: BP 158/71; PULSE 78; RESP 18; TEMP 36.7; O2SAT 98; BMI 21.7
[2025-01-11] MEDS: Lactated Ringers 1,000 ML 15 ML IV (12:20)
--- NOTE | 2025-01-11 12:45 | COLBX_PTH ---
PATIENT: BOBY VAN LOC: EN U#:[id number] AGE/SX: 84/M ROOM: RE01/11/[address]: Dr. Gagandeep Parks DO : 1940 BED: DIS: 01/11/2025 SPEC #: [id number] RECD: 01/11/25 14:26 STATUS: JUNIE REQ #: [id number] ADELINA: 01/11/25 12:[address]: Gagandeep Parks DEPT: SURGICAL PATHOLOGY RECD BY: Wilfrido Thomas ENTERED: 01/11/25 15:05 SP TYPE: COLON BX OTHR DR: Dr. J Luis Mcgill MD Tissues: A - Gastric mucous membrane B - Duodenum, NOS C - Esophagus, NOS D - Transverse colon E - COLON BIOPSY Procedures: Immunohistochemical Stains Surgery Specimen Level IV Comments: Called office on 01/24/25 at 8:20am and spoke to Carrie. Informed her of the adenocarcinoma in part E. HEADER OPERATION: Colonoscopy, EGD, biopsy, polypectomy PRE-OP DIAGNOSIS: Iron deficiency anemia ADDENDUM TISSUE SUBMITTED: A- Antrum biopsy, B- Duodenum biopsy, C- Distal esophagus biopsy, D- Transverse colon polyp, E- Hepatic flexure polyp biopsy ADDENDUM ADDENDUM ADDENDUM 01/24/2025 08:00 ADDENDUM 01/24/2025 08:00 ADDENDUM 01/24/2025 08:00 ADDENDUM 01/24/2025 08:00 ADDENDUM 01/24/2025 08:00 This addendum is to report the IHC for MMR performed at [facility]: MICROSCOPIC DIAGNOSIS A. Antrum, biopsy: - Antral mucosa with features of reactive gastropathy. - IHC negative for H. pylori organisms. B. Duodenum, biopsy: - Normal villous architecture with focal Shaan gland hyperplasia. - Negative for increased intraepithelial lymphocytes. C. Distal esophagus, biopsy: - Squamous mucosa with reactive changes. - Columnar mucosa with goblet cell metaplasia - see note. - Reactive epithelial change, negative for dysplasia. Note: The diagnosis depends on the location of the biopsy and the extent of the mucosal irregularity. If the biopsy originates from the tubular esophagus and the mucosal irregularity extends at least 1 cm above the top of the gastric folds, this represents Solano mucosa. If the biopsy originates from the gastric cardia and or the mucosal irregularity is less than 1 cm in extent, this represents intestinal metaplasia. D. Transverse colon, polyp, biopsy: - Tubular adenoma. E. Hepatic flexure, mass, biopsy: - Invasive adenocarcinoma. - IHC for mismatch repair proteins (MMR) is pending at [facility] and the findings will be reported in an addendum. MICROSCOPIC DESCRIPTION Slides are reviewed. All matched controls reacted appropriately. These tests were developed and their performance characteristics determined by [facility]. They may not have been cleared or approved by the U.S. Food and Drug Administration. The FDA has determined that such clearance or approval is not necessary. The above immunohistochemical markers and/or special?stains have been reviewed by the Pathologist. . GROSS DESCRIPTION A. Received in fixative is one container labeled with the patient's name and designated Antrum biopsy. The specimen consists of one irregular fragment of way tissue that measures 0.4 cm. The specimen is totally submitted in one cassette. B. Received in fixative is one container labeled with the patient's name and designated Duodenum biopsy. The specimen consists of two irregular fragments of way tissue that measure 0.3 and 0.5 cm. The specimen is totally submitted in one cassette. C. Received in fixative is one container labeled with the patient's name and designated Distal esophagus biopsy. The specimen consists of three irregular fragments of way tissue that measure 0.2 to 0.3 cm. The specimen is totally submitted in one cassette. D. Received in fixative is one container labeled with the patient's name and designated Transverse colon polyp. The specimen consists of multiple irregular fragments of way tissue that in aggregate measure 1.5 x 1.1 x 0.2 cm. The resection margin of the largest fragment is inked black. The specimen is totally submitted in one cassette. E. Received in fixative is one container labeled with the patient's name and designated Hepatic flexure mass biopsy. The specimen consists of multiple irregular fragments of way tissue that in aggregate measure 1 x 0.8 x 0.1 cm. The specimen is totally submitted in one cassette. [place] 01/11/2025 CPT:[id number] ADDENDUM ADDENDUM ADDENDUM ADDENDUM 01/24/2025 08:00 ADDENDUM 01/24/2025 08:00 ADDENDUM 01/24/2025 08:00 ADDENDUM 01/24/2025 08:00 ADDENDUM 01/24/2025 08:00 This addendum is to report the IHC for MMR performed at [facility]:
[2025-01-11 13:30] VITALS: BP 143/59; BP 158/71; PULSE 73; RESP 16; TEMP 36.1; O2SAT 99
--- NOTE | 2025-01-11 13:30 | OP.EGD_ITS ---
Patient Name: Johnnie Alcazar
--- NOTE | 2025-01-11 13:34 | POSTOP.ANE_ITS ---
Anesthesia: Postop Eval I
--- NOTE | 2025-01-11 13:34 | PCM.POST.ANE ---
Anesthesia: Postop Eval I Current Vital Signs Temperature: 97 F Pulse Rate: 74 Blood Pressure: 143/59 Respiratory Rate: 16 Pulse Ox: 100 Oxygen Delivery Method: Room Air Assessment Airway patent: Yes Spontaneous unlabored respirations: Yes Mental status: Awake and Calm nausea: No Vomiting: No Anesthesia Complication: No Fluid Hydration Crystalloid volume administer (ml): 700 Total IV fluid infused: 700 Progress Note Anesthesia document: Postop Eval 1 completed: Yes
[2025-01-11 13:35] VITALS: BP 141/69; BP 143/59; BP 158/71; PULSE 73; PULSE 74; RESP 16; TEMP 36.1; O2SAT 100
--- NOTE | 2025-01-11 13:35 | POSTOPAN2_ITS ---
Anesthesia Postop Eval I Sum
--- NOTE | 2025-01-11 13:36 | OP.COLON_ITS ---
Patient Name: Johnnie Alczaar
[2025-01-11 13:40] VITALS: BP 139/82; BP 158/71; PULSE 70; RESP 16; TEMP 36.3; O2SAT 97
[2025-01-11 14:12] VITALS: BP 158/71
== END 2025-01-11 14:48 | disposition home or self-care (01) ==
LOC: EN 11:31 → AC 11:33
PROVIDERS: PCP Family Medicine Geriatric Medicine; Referring Provider Family Medicine Geriatric Medicine; Visit Provider Internal Medicine Gastroenterology
PROC: 0DJD8ZZ Inspection of Lower Intestinal Tract, Via Natural or Artificial Opening Endoscopic (ICD-10-PCS; CPT 45378; principal; 2025-01-11 12:40)
DX: R19.5 Other fecal abnormalities (principal); C18.3 Malignant neoplasm of hepatic flexure; D50.9 Iron deficiency anemia, unspecified; Z79.02 Long term (current) use of antithrombotics/antiplatelets; E78.00 Pure hypercholesterolemia, unspecified; K57.30 Diverticulosis of large intestine without perforation or abscess without bleeding; Z79.899 Other long term (current) drug therapy; K63.5 Polyp of colon; K21.00 Gastro-esophageal reflux disease with esophagitis, without bleeding; K44.9 Diaphragmatic hernia without obstruction or gangrene; I10 Essential (primary) hypertension; Z86.73 Personal history of transient ischemic attack (TIA), and cerebral infarction without residual deficits; G25.81 Restless legs syndrome; Z98.41 Cataract extraction status, right eye; Z98.42 Cataract extraction status, left eye; Z90.49 Acquired absence of other specified parts of digestive tract; Z86.79 Personal history of other diseases of the circulatory system; K31.89 Other diseases of stomach and duodenum; K22.70 Barrett's esophagus without dysplasia
CPT/HCPCS: 44361; 45381; 45385; 45380; 45388; 88305; 88342; A4648; J2405

== ENCOUNTER → 2025-01-12 | Outpatient (CLI) | payer MEDICARE, SELFPAY ==
--- NOTE | 2025-01-12 10:18 | CT_ITS ---
PROCEDURE: ABDOMEN/PELVIS WITH CONTRAST 01/12/2025 REASON FOR EXAM: COLON CANCER Newly diagnosed. TECHNIQUE: Procedure Code: [id number] Modality: CT Procedure: ABDOMEN/PELVIS WITH CONTRAST Coronal and Sagittal reconstruction series were provided. CONTRAST: Isovue-300 VOLUME: 100 mL One or more dose reduction techniques were used (e.g., Automated exposure control, adjustment of the mA and/or kV according to patient size, use of iterative reconstruction technique. RADIATION DOSE SUMMARY: CTDlvol: 10.6 mGy DLP: 732.49 mGycm COMPARISON: None FINDINGS: Lung bases: There is elevation of the left hemidiaphragm. Findings suggestive of scarring at the left lung base. Liver: Diffuse fatty infiltration. Gallbladder: The gallbladder is contracted. Spleen: Normal size. Pancreas: Normal size without evidence of mass surrounding inflammation or ductal dilation. Adrenals: Unremarkable. Kidneys: 1 cm cyst in the anterior midportion of the left kidney. Bladder: Unremarkable Prostatic enlargement with prostatic calcification. Bowel: Soft tissue mass is seen in the region of the cecum and proximal ascending colon suggestive of neoplastic process. Scattered sigmoid diverticula. Appendix: The appendix is not identified. There is no inflammatory process identified in the right lower quadrant to suggest appendicitis. Lymph nodes: Unremarkable. Vasculature: Mild diffuse atherosclerotic calcifications are noted. Peritoneum / Retroperitoneum: Small bilateral inguinal hernias containing fat. Bones: Degenerative changes of the spine. CT/Abdomen/Pelvis WITH Contrast IMPRESSION: Soft tissue mass in the region of the cecum and proximal ascending colon. Neop lastic process should be ruled out. Prosthetic enlargement with calcifications. Small bilateral inguinal hernias containing fat. Fatty infiltration of the liver. Reading Location: [facility]-
--- NOTE | 2025-01-12 10:22 | CDU_ITS ---
Reason For Study Reason For Study: S/P Lt TCAR Rt. Velocities/BP Lt. Velocities/BP Prox CCA 88.8/19.4 cm/sec. Prox CCA 94.9/24.9 cm/sec. Mid CCA 81.5/19.4 cm/sec. Mid CCA 92.3/27.5 cm/sec. Dist CCA 90.6/19.4 cm/sec. Pre Stent - 74.1/22.3 cm/s Prox ICA 119.8/24.8 cm/sec. Prox Stent - 63.2/17.5 cm/s Mid ICA 90.6/26.7 cm/sec. Mid Stent - 169.1/37.6 cm/s Dist ICA 91.9/31.6 cm/sec. Dist Stent - 231.4/60.1 cm/s Rt. ICA/CCA = 1.5. Post Stent - 164.8/ 35.2 cm/s. Prox ECA 128.4/13.3 cm/sec. Mid ICA 128.6/27.5 cm/sec. Rt. Vert. 33.6/7.3 cm/sec. Dist ICA 89.8/34.2 cm/sec. Lt. ICA/CCA = 2.5. Prox ECA 229.9/37.7 cm/sec. Lt. Vert. 62.0/11.9 cm/sec. Right Extracranial There is homogeneous, smooth atherosclerotic plaque noted in the right common carotid artery. There is heterogeneous, irregular atherosclerotic plaque noted in the right internal carotid artery. There is heterogeneous, smooth atherosclerotic plaque noted in the right external carotid artery. Antegrade flow is noted in the right vertebral artery. Left Extracranial There is homogeneous, smooth atherosclerotic plaque noted in the left common carotid artery. HX Rt Distal CCA to Mid ICA TCAR. There is heterogeneous, irregular atherosclerotic plaque noted in the left external carotid artery. The atherosclerotic plaque causes acoustic shadowing. Antegrade flow is noted in the left vertebral artery. Procedure Carotid Duplex [id number]. This is a Carotid Duplex examination using B-mode, color flow and specral Doppler. The exam was diagnostic. Exam performed in department. VL/Carotid Duplex Ultrasound Interpretation Summary Mild (<50%) stenosis right extracranial internal carotid. 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 Patent and antegrade vertebrals bilaterally. Ordering Physician: Madeleine Centeno Referring Physician: J Luis Mcgill Chi Performed By: Matt Napoles RVT
== END | disposition home or self-care (01) ==
PROVIDERS: PCP Family Medicine Geriatric Medicine; Referring Provider Internal Medicine Gastroenterology; Visit Provider Internal Medicine Gastroenterology
DX: Z48.812 Encounter for surgical aftercare following surgery on the circulatory system (principal); C18.9 Malignant neoplasm of colon, unspecified; I65.22 Occlusion and stenosis of left carotid artery
CPT/HCPCS: 74177; 93880; Q9967; A4216

== ENCOUNTER 2025-01-30 10:15 | Inpatient (IN) | payer MEDICARE, SELFPAY ==
[2025-01-23 16:21] LABS: Hematocrit 32.1 % (40-54); Hemoglobin 9.6 g/dL (13.0-16.5); Mean Corp Hgb Conc 29.9 g/dL (32-36); Mean Corpuscular Volume 76.1 fL (80-94); Mean Platelet Vol. 10.0 fl (6.2-12.0); POSITIVE MORPHOLOGY YES; Platelet Count 382 K/mm3 (150-450); RBC Distribution Width CV 21.3 % (11.6-14.6); RBC Distribution Width SD 58.4 fl (35.1-43.9); Red Blood Count 4.22 M/mm3 (4.6-6.2); White Blood Count 8.2 K/mm3 (4.4-11.0)
[2025-01-23 16:40] LABS: Prothrombin Time (Protime)PT. 12.8 SECONDS (11.7-14.9)
[2025-01-23 16:42] LABS: Partial Thromboplast Time 28.0 Seconds (24.1-36.2)
[2025-01-23 17:28] LABS: Magnesium 2.2 mg/dL (1.5-2.2)
[2025-01-23 21:45] LABS: Scan Indicated on CBC? Y/N YES- FLAGS NOTED
--- NOTE | 2025-01-24 09:01 | PAT.ANESEVAL ---
Pre-Assessment Diagnosis/Proposed Procedure Planned Operative Procedure(s): ERAS LAP MAXINE COLECTOMY Anesthesia History Anesthesia History - cloth tester quality: Anesthesia History - cloth tester quality Hx Hospitalization No 01/20/25 11:20 Any Problems With Anesthesia No 01/20/25 11:20 Cholinesterase deficiency No 01/20/25 11:20 You/Your Family Experience No 01/20/25 11:20 fever (hyperthermia) with Relationship Recent Exposure to Contagious No 01/11/25 12:17 Disease Does patient have nerve No 01/20/25 11:20 stimulator Patient instructed to have device shut off --Does patient have Pacemaker or ICD? When Was Last Pacemaker Check QUESTION #4 FULL TEXT: You/Your Family Experience fever (hyperthermia) with Anesthesia Last Oral Intake Last Oral intake: Last Oral Intake NPO since Meds taken in AM with sips of water? 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 - cloth tester quality: PONV - cloth tester quality Female No 01/20/25 11:20 HX of Motion Sickness No 01/20/25 11:20 HX of N/V After Surgery No 01/20/25 11:20 Non-Smoker Yes 01/20/25 11:20 Duration of Surgery greater Yes 01/20/25 11:20 than 60 minutes Number of Risk Factors 2 01/20/25 11:20 PONV Score Moderate Risk 01/20/25 11:20 Height & Weight Height & Weight: Anesthesia: Height & Weight Height 5 ft 8 in 01/17/25 13:52 Respiratory Assessment Respiratory Assessment - cloth tester quality: Respiratory Tract Infection Hx - cloth tester quality Hx Respiratory Tract Infection No 01/20/25 11:20 STOP Sleep Apnea STOP Sleep Apnea - cloth tester quality: STOP Sleep Apnea - cloth tester quality Hx Hypertension Yes: CONTROLLED WITH MED 01/20/25 11:20 Hx Sleep Apnea No 01/20/25 11:20 CPAP BIPAP Do you snore loudly (louder No 01/20/25 11:20 than talking or can be heard Do you often feel tired/ No 01/20/25 11:20 fatigued/ sleepy during daytime? Has anyone observed you stop No 01/20/25 11:20 breathing during sleep? STOP Results Negative 01/20/25 11:20 QUESTION #5 FULL TEXT : Do you snore loudly (louder than talking or can be heard through closed doors)? 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 Specify any problems Hx of Preganancy in last 3 N/A 01/20/25 11:20 Months Nurse Filling Out Transfusion DSCHRIBER 01/20/25 11:20 & Questions: Date: 01/20/25 01/20/25 11:20 Time: 11:21 01/20/25 11:20 Patient unable to answer at this time (ie. confused, unrespo /Reproduction History /Reproductive History - cloth tester quality: /Reproductive Hx- cloth tester quality Hx Now No 01/20/25 11:20 Gestational Age (in weeks): EDC: Hx Hx Para Hx Section SAB No 01/20/25 11:20 PFSH Medical History (Updated 01/20/25 @ 11:31 by Danita Benavidez) Anemia Cancer Wears hearing aid Wears dentures Wears glasses High cholesterol Restless legs Non-smoker Shortness of breath on exertion History of echocardiogram History of stress test Cardiology follow-up encounter Essential (primary) hypertension Benign prostatic hyperplasia without urinary obstruction Diverticulitis Asthma Home Medications Medication Instructions Recorded Last Taken Type albuterol sulfate 90 mcg/actuation 1 - 2 puff inhalation Q4H PRN PRN 05/02/14 07/11/24 Rx aerosol inhaler (Ventolin HFA) Wheezing ##1 montelukast 10 mg tablet 10 mg PO DAILY LUNGS 05/02/14 07/11/24 History (Singulair) acetaminophen 325 mg capsule 325 mg PO TID PRN fever or pain 11/20/21 Unknown History (Tylenol) mirtazapine 7.5 mg tablet 7.5 mg PO QHS RLS 04/11/24 07/11/24 History atorvastatin 40 mg tablet 40 mg PO QHS CHOLESTEROL 06/03/24 07/11/24 History nitroglycerin 0.4 mg sublingual 0.4 mg sublingual Q5M PRN chest 06/03/24 Unknown History tablet pain amlodipine 10 mg tablet 10 mg PO QDAY BP #90 tabs 06/13/24 07/12/24 Rx prasugrel HCl 10 mg tablet 10 mg PO QDAY PVD #30 tabs 07/27/24 01/10/25 Rx isosorbide mononitrate 30 mg 30 mg PO QAM HEART #30 tabs 10/18/24 Unknown Rx tablet,extended release 24 hr losartan 50 mg tablet 50 mg PO DAILY BP 01/10/25 Unknown History polysaccharide iron complex 150 mg 150 mg PO QODAY IRON 01/10/25 Unknown History iron capsule metronidazole 500 mg tablet 500 mg PO .COMPLEX PREP #6 tabs 01/17/25 Unknown Rx neomycin 500 mg tablet 500 mg PO .COMPLEX pre-op 01/17/25 Unknown Rx antibiotics #6 tabs albuterol sulfate 2.5 mg/3 mL 2.5 mg inhalation Q4H PRN 01/20/25 Unknown History (0.083 %) solution for nebulization shortness of breath or wheezing Allergy/AdvReac Type Severity Reaction Status Date / Time naproxen (From Aleve) Allergy Unknown palpitaions, Verified 01/20/25 11:12 SOB aspirin Allergy Shortness Verified 01/20/25 11:12 of breath ibuprofen Allergy Other Verified 01/20/25 11:12 Family History Sister Cancer Mother Bleeding disorder Surgical History (Updated 01/20/25 @ 11:31 by Danita Benavidez) Hx of left cataract extraction Hx of right cataract extraction Hx of colonoscopy with polypectomy History of transcarotid artery revascularization (TCAR) History of cardiac catheterization History of appendectomy Myringotomy tube status (~2005) Social History household members: spouse housing: [facility] number of children: 2 pets and animals: Yes (maltise-dog) Smoking Status: Never smoker alcohol intake: never substance use type: does not use caffeine: Yes Type: coffee Number of servings: 2 Audit: Pertinent Findings Pertinent Findings EKG Perinent findings: 05/20/2024. Sinus rhythm within normal limits. Stress test pertinent findings: 03/08/2024. EF is 64%. No areas of reversibility are noted to suggest ischemia. No previous infarct. Echo (EF%) pertinent findings: 05/18/2024. EF of 65%. No aortic stenosis. Heart catheterization pertinent findings: 06/13/2024. EF is 60%. Atherosclerotic cardiovascular disease with no high-grade stenosis. LAD with moderate irregularities up to 50%. Dual ostium in the left main is noted. Uncontrolled high blood pressures present. Consult pertinent findings: 08/05/2024. Nithin JARAMILLO. 1. Essential hypertension-elevated in the office today. Patient states blood pressure is lower at home. Systolic in the 130s. Continue amlodipine, isosorbide and losartan. Continue to monitor at home. 2. 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 Additional pertinent findings: 01/23/2025. Hemoglobin is 9.6. This is the highest it has been since April 2024. Recommendation Anesthesia Recommendation Anesthesia recommendation: OPTIMIZED for anesthesia
[2025-01-25 04:07] LABS: Carcinoembryonic Antigen 1.4 ng/mL (0.0-4.7)
[2025-01-30] VITALS (22 sets, daily range): BP systolic 87–168; BP diastolic 57–78; PULSE 71–97; RESP 12–18; TEMP 36–36.6; O2SAT 95–100; BMI 22.3; BMI 22.4
--- OUTSIDE RECORDS SUMMARY | 2025-01-30 05:29 | XMS RPT_ITS | CCD ---
Author Organization [facility] Care Team Providers Care Senior Housekeeper Name Role Phone Lou Siegel Unavailable Stephen Fowler Unavailable Lou Siegel Unavailable Yuko Bynum Unavailable Unavailable Pat Weller Unavailable Unavailable MessengerPat Unavailable Unavailable Unavailable Unavailable Lou Siegel Unavailable Stephen Fowler Unavailable Lou Siegel Unavailable GraviusSeamusin Unavailable Unavailable MessengerPat Unavailable Unavailable Unavailable Unavailable Prachi Titus Unavailable Unavailable Gravius, Joy Unavailable Unavailable Karla Schultz Unavailable [facility] Unavailable Wilfrido White Unavailable Unavailable MessengerPat Unavailable Unavailable Unavailable Unavailable Wilfrido Bynum Unavailable Unavailable Krystal Mejia Unavailable Unavailable Nora Mehta Unavailable Christal LERMA Lou Unavailable Stephen Fowler MD Unavailable [facility] Unavailable Christal LERMA Lou Unavailable Gravbren NAIL SPECIALIST, Joy Unavailable Unavailable Messenger Pat YEH Unavailable Unavailable Wilfrido Bynum LPN Unavailable Unavailable Unavailable Unavailable Dr. Hugh Jones Unavailable Bulmaro RES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, Heather Unavailable Unavailable Slarb RES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, Alyssa Unavailable Unavailable Manfranklin LARA Rosita Unavailable Unavailable Lou Siegel DO Unavailable Dr. Lou Siegel Primary Care Provider [phone] Dr. Lou Siegel Referring Provider [phone] Dr. David Duran Attending Provider [phone] [facility], Michelle Unavailable Unavailable Dr. Lou Siegel Primary Care Provider [phone] Dr. Lou Siegel Referring Provider Dr. David Duran Attending Provider [phone] Dr. Lou Siegel Primary Care Provider [phone] Dr. Darryn Bowens Attending Provider [phone] Kelton Blakely Attending Provider [phone] Monik Perez Attending Provider Unavailable Winnie Villagomez Sieper Office Unavailable Symone [facility] MA Unavailable Unavailable LOU SIEGEL Primary Care Unavailab le CHRISTALLOU DANIEL Primary Care Unavailab le Christal Lou LERMA Primary Care Provider Raven Villarreal CNP Unavailable [phone] Janine MUNOZ, Nora Spangler Unavailable Lou Sigeel DO Attending Unavailable Lou Siegel DO Referring Unavailable Lou Siegel DO Consulting Unavailable Dr. Lou Siegel Primary Care Provider [phone] Dr. Darryn Bowens Attending Provider [phone] [facility] Unavailable Unavailable [facility], [facility] Unavailable Unavailable Unavailable Lou Siegel DO Primary Care Provider Dr. J Luis Mcgill Chi Primary Care Provider MD Huber Foy Emergency Provider Dr. Heriberto Grewal Admit Provider Dr. Heriberto Grewal Other Provider Dr. Kelton Engle Attending Provider Dr. Kelton Engle Other Provider Gogo, Dr. Cates Attending Provider [phone])[phone] Artem, Dr. J Luis Teague Primary Care Provider 1([facility])[phone] Gogo, Dr. Cates Attending Provider 1([facility])-[phone] Gogo, Dr. Cates Referring Provider 1([facility])[phone] Artem MUNOZ, Dr. J Luis Teague Primary Care Provider Artem MUNOZ, Dr. J Luis Teague Attending Provider Artem MUNOZ, Dr. J Luis Teague Referring Provider Gerson Irvin MD Attending Provider 1([facility])[phone] Artem MUNOZ, Dr. J Luis Teague Other Provider 1([facility])[phone] Gogo MUNOZ, Dr. Cates Attending Provider 1([facility])[phone] Aziza MUNOZ, Dr. Reynoso Attending Provider Addis Warren Attending Provider Addis Warren M Referring Provider Reddy MUNOZ, Dr. Melara Attending Provider 1([facility]) [phone] Edmund MUNOZ, Dr. Pulliam Attending Provider Unavailab america Shaffer MD, Dr. Pulliam Referring Provider UnavailMadeleine Morrissey Attending Provider 1([facility])-[phone] Artem MUNOZ, Dr. J Luis Teague Primary Care Provider Artem MUNOZ, Dr. J Luis Teague Attending Provider Artem MUNOZ, Dr. J Luis Teague Primary Care Provider Artem MUNOZ, Dr. J Luis Teague Referring Provider Gerson Irvin MD Attending Provider Gogo MUNOZ, Dr. Cates Attending Provider Artem MUNOZ, Dr. J Luis Teague Attending Provider Reddy MUNOZ, Dr. Melara Admit Provider 1([facility])[phone] Reddy MUNOZ, Dr. Melara Referring Provider [phone] Reddy MUNOZ, Dr. Melara Other Provider [phone] Artem MUNOZ, Dr. J Luis Teague Primary Care Provider Artem MUNOZ, Dr. J Luis Teague Referring Provider Gerson Irvin MD Attending Provider [phone] Nithin KRISHNAMURTHY-C, Pat Attending Provider [phone] Madeleine Lozano Referring Provider [phone] Artem MUNOZ, Dr. J Luis Teague Primary Care Provider Artem MUNOZ, Dr. J Luis Teague Referring Provider Gogo MUNOZ, Dr. Cates Attending Provider [phone] Artem MUNOZ, Dr. J Luis Teague Attending Provider Reddy MUNOZ, Dr. Melara Attending Provider [phone] Leandra Butts Attending Provider 1([facility])[phone] Artem MUNOZ, Dr. J Luis Teague Primary Care Provider Artem MUNOZ, Dr. J Luis Teague Referring Provider Madeleine Lozano Attending Provider [phone] Leandra Butts Referring Provider Artem MUNOZ, Dr. J Luis Teague Primary Care Provider Artem MUNOZ, Dr. J Luis Teague Referring Provider Artem MUNOZ, Dr. J Luis Teague Attending Provider Artem MUNOZ, Dr. J Luis Teague Primary Care Physician Artem MUNOZ, Dr. J Luis Teague Attending Physician Artem MUNOZ, Dr. J Luis Teague Referring Provider Leandra Butts Attending Physician [phone] Gerson Irvin MD Attending Physician [phone] Charly LERMA, Dr. Donis Attending Physician [phone] Charly LERMA, Dr. Donis Nurse Practitioner Charly LERMA, Dr. Donis Referring Provider Reddy MUNOZ, Dr. Melara Attending Physician Dr. J Luis Mcgill MD, Chi Primary Care Physician [phone] Dr. J Luis Mcgill MD, Chi Referring Provider Dr. J Luis Mcgill MD, Chi Attending Physician Daryl MUNOZ, Dr. Reyna Attending Physician Charly, Gagandeep Attending Unavailable Artem, J Luis Chi Referring Unavailable Artem, J Luis Chi Primary Care Unavailable Axel Brito Attending Unavailable Axel Brito Referring Unavailable Benny Roberts Unavailable Axel Brito Admitting Unavailable Artem, J Luis Chi Primary Care Unavailable Darryn Bowens Attending Unavailable Artem, J Luis Chi Primary Care Unavailable Artem, J Luis Chi Referring Unavailable Artem, J Luis Chi Attending Unavailable Artem, J Luis Chi Primary Care Unavailable Artem, J Luis Chi Attending Unavailable Artem, J Luis Chi Referring Unavailable Artem, J Luis Chi Primary Care Unavailable Artem, J Luis Chi Attending Unavailable Artem, J Luis Chi Referring Unavailable Artem, J Luis Chi Primary Care Unavailable Artem, J Luis Chi Attending Unavailable Artem, J Luis Chi Referring Unavailable Artem, J Luis Chi Primary Care Unavailable Artem, J Luis Chi Attending Unavailable Artem, J Luis Chi Primary Care Unavailable Artem, J Luis Chi Attending Unavailable Artem, J Luis Chi Primary Care Unavailable Artem, J Luis Chi Attending Unavailable Artem, J Luis Chi Referring Unavailable Artem, J Luis Chi Primary Care Unavailable Edmund Heraclio Referring Unavailable EdmundHeraclio Attending Unavailable Artem, J Luis Chi Primary Care Unavailable Friend, Gagandeep Referring Unavailable Friend, Gagandeep Attending Unavailable Artem, J Luis Chi Primary Care Unavailable Artem, J Luis Chi Attending Unavailable Artem, J Luis Chi Referring Unavailable Artem, J Luis Chi Primary Care Unavailable Artem, J Luis Chi Attending Unavailable Artem, J Luis Chi Primary Care Unavailable Artem, J Luis Chi Attending Unavailable Artem, J Luis Chi Primary Care Unavailable Artem, J Luis Chi Attending Unavailable Artem, J Luis Chi Referring Unavailable Artem, J Luis Chi Primary Care Unavailable Artem, J Luis Chi Referring Unavailable Madeleine Centeno Attending Unavailable Artem, J Luis Chi Primary Care Unavailable Gerson Irvin Attending Unavailable Artem, J Luis Chi Referring Unavailable Artem, J Luis Chi Primary Care Unavailable Artem, J Luis Chi Referring Unavailable Artem, J Luis Chi Primary Care Unavailable Addis Warren Attending Unavail able Axel Brito Attending Unavailable Charly, Gagandeep Referring Unavailable Artem, J Luis Chi Primary Care Unavailable Gerson Irvin Attending Unavailable Artem, J Luis Chi Primary Care Unavailable Artem, J Luis Chi Referring Unavailable Artem, J Luis Chi Primary Care Unavailable Pat Weller NP Attending Unavailable Artem, J Luis Chi Referring Unavailable GogoDarryn Attending Unavailable Artem, J Luis Chi Primary Care Unavailable Darryn Bowens Attending Unavailable Gogo, [place] Referring Unavailable Artem, J Luis Chi Primary Care Unavailable Artem, J Luis Chi Referring Unavailable [employer], [place] Attending Unavailable Artem, J Luis Chi Primary Care Unavailable Artem, J Luis Chi Primary Care Unavailable Angeles Ervin Attending Unavailabl e Darryn Bowens Attending Unavailable Artem, J Luis Chi Primary Care Unavailable Centeno, Madeleine Referring Unavailable [employer], [place] Attending Unavailable Artem, J Luis Chi Primary Care Unavailable Artem, J Luis Chi Referring Unavailable [employer], [place] Attending Unavailable Artem, J Luis Chi Primary Care Unavailable Artem, J Luis Chi Primary Care Unavailable Centeno, Madeleine Attending Unavailable Artem, J Luis Chi Referring Unavailable Reddy, [place] Referring Unavailable Reddy, [place] Admitting Unavailable [employer], [place] Consulting Unavailable Centeno, Madeleine Attending Unavailable Artem, J Luis Chi Primary Care Unavailable [employer], [place] Attending Unavailable Reddy, [place] Referring Unavailable Rdedy, [place] Admitting Unavailable [employer], [place] Consulting Unavailable Artem, J Luis Chi Primary Care Unavailable Artem, J Luis Chi Attending Unavailable Artem, J Luis Chi Primary Care Unavailable Artem, J Luis Chi Attending Unavailable Artem, J Luis Chi Referring Unavailable Artem, J Luis Chi Primary Care Unavailable Artem, J Luis Chi Primary Care Unavailable Artem, J Luis Chi Attending Unavailable Artem, J Luis Chi Referring Unavailable Centeno, Madeleine Attending Unavailable Centeno, Madeleine Referring Unavailable Artem, J Luis Chi Primary Care Unavailable Artem, J Luis Chi Attending Unavailable Artem, J Luis Chi Referring Unavailable Artem, J Luis Chi Primary Care Unavailable [employer], [place] Attending Unavailable Artem, J Luis Chi Primary Care Unavailable Friend, Gagandeep Attending Unavailable Artem, J Luis Chi Referring Unavailable Artem, J Luis Chi Primary Care Unavailable Centeno, Madeleine Referring Unavailable Centeno, Madeleine Attending Unavailable Artem, J Luis Chi Primary Care Unavailable Artem, J Luis Chi Attending Unavailable Artem, J Luis Chi Primary Care Unavailable Artem, J Luis Chi Referring Unavailable Centeno, Madeleine Referring Unavailable Artem, J Luis Chi Primary Care Unavailable Centeno, Madeleine Attending Unavailable Artem, J Luis Chi Attending Unavailable Artem, J Luis Chi Primary Care Unavailable Artem, J Luis Chi Referring Unavailable Artem, J Luis Chi Attending Unavailable Artem, J Luis Chi Referring Unavailable Artem, J Luis Chi Primary Care Unavailable Artem, J Luis Chi Attending Unavailable Artem, J Luis Chi Referring Unavailable Artem, J Luis Chi Primary Care Unavailable Artem, J Luis Chi Attending Unavailable Artem, J Luis Chi Referring Unavailable Artem, J Luis Chi Primary Care Unavailable Artem, J Luis Chi Primary Care Unavailable Arslan THAO, Addis Spangler Referring Unavail able Addis Warren Attending Unavail able Leandra Diaz Referring Unavailable Leandra Diaz Attending Unavailable Artem, J Luis Chi Primary Care Unavailable Artem, J Luis Chi Attending Unavailable Artem, J Luis Chi Primary Care Unavailable Artem, J Luis Chi Referring Unavailable Artem, J Luis Chi Attending Unavailable Artem, J Luis Chi Referring Unavailable Artem, J Luis Chi Primary Care Unavailable Artem, J Luis Chi Primary Care Unavailable Roof Jose KRISHNAMURTHY Attending Unavailable Artem, J Luis Chi Referring Unavailable FriendRajatn Attending Unavailable Artem, J Luis Chi Primary Care Unavailable Centeno, Madeleine Referring Unavailable [employer] Attending Unavailable Artem, J Luis Chi Primary Care Unavailable Friend, Gagandeep Consulting Unavailable Friend, Gagandeep Attending Unavailable Artem, J Luis Chi Referring Unavailable Artem, J Luis Chi Primary Care Unavailable Artem, J Luis Chi Consulting Unavailable Darryn Bowens Attending Unavailable Artem, J Luis Chi Referring Unavailable Artem, J Luis Chi Primary Care Unavailable Reddy, [place] Attending Unavailable Artem, J Luis Chi Primary Care Unavailable Artem, J Luis Chi Referring Unavailable Gerson Irvin Attending Unavailable Artem, J Luis Chi Primary Care Unavailable Artem, J Luis Chi Referring Unavailable Leandra Diaz Attending Unavailable Artem, J Luis Chi Referring Unavailable Artem, J Luis Chi Primary Care Unavailable Gerson Irvin Attending Unavailable Artem, J Luis Chi Referring Unavailable Artem, J Luis Chi Primary Care Unavailable Artem, J Luis Chi Attending Unavailable Artem, J Luis Chi Referring Unavailable Artem, J Luis Chi Primary Care Unavailable [employer], [place] Attending Unavailable Reddy, [place] Referring Unavailable [employer] [place] Admitting Unavailable Artem, J Luis Chi Primary Care Unavailable Allergies Allergy Classification Reported Allergen(s) Allergy Type Date of Onset Reaction(s) Facility Aspirin (1 source) Aspirin; Translations: [Aspirin (Salicylates)] Drug Allergy [facility] Work Phone: NSAIDs (2 sources) Naproxen; Translations: [Aleve *ANALGESICS - ANTI-INFLAMMATO RY*] Drug Allergy [facility]; [facility] Work Phone: Comment on above: palptations, sob, fe lt like sinuses (20 sources) aspirin; Translations: [Aspirin (Salicylates)] Drug Allergy [facility] Work Phone: (20 sources) ibuprofen; Translations: [Ibuprofen *ANALGESICS - ANTI-INFLAMMATO RY*] Drug Allergy 4 Shortness of Breath [facility] Work Phone: (20 sources) Naproxen; Translations: [Aleve *ANALGESICS - ANTI-INFLAMMATO RY*] Drug Allergy 2 palpitaions, SOB [facility] Work Phone: Comment on above: palptations, sob, fe lt like sinuses (20 sources) Aspirin; Translations: [ASPIRIN] Drug Allergy 4 Shortness of Breath [facility] Repository (2 sources) Ibuprofen; Translations: [IBUPROFEN] Drug Allergy 4 [facility] Repository (1 source) Aspirin Drug Allergy 5 [facility] Repository (1 source) Naproxen Drug Allergy 5 [facility] Repository Medications Current Medications Medication Drug Class(es) Dates Sig (Normalized) Sig (Original) acetaminophen 325 mg oral capsule (20 sources) Start: 10-24-2019 take 1 capsule by mouth three times daily as needed for pain amLODIPine 10 mg oral tablet (17 sources) Dihydropyridine Calcium Channel Edy Start: 06-13-2024 take 1 tablet by mouth once daily amoxicillin 875 mg / clavulanate 125 mg oral tablet (20 sources) Penicillin-class Antibacterial Start: 03-22-2022 End: 03-29-2022 take 1 tablet by mouth twice daily amoxicillin-clav ulanic acid (AUGMENTIN) 875-125 mg per tablet Take 1 tablet by mouth twice daily for 7 days. 14 tablet 0 03/22/2022 03/29/2022 Active Start: 09-13-2021 End: 10-21-2021 take 1 tablet by mouth twice daily Amoxicillin-Pot Clavulanate 875-125 MG Oral Tablet 1 (one) Tablet bid for 0 days Quantity: 28 {Tablet} Refills: 0 Ordered: 21-Oct-2021 Tanya LARAJoy Start : 13-Sep-2021 End : 21-Oct-2021 Inactive Start: 08-25-2019 End: 09-04-2019 take 1 tablet by mouth twice daily Amoxicillin-Pot Clavulanate 875-125 MG Oral Tablet 1 (one) Tablet bid for 10 days Quantity: 20 {Tablet} Refills: 0 Ordered: 25-Aug-2019 Christal Lou Siegel DO Lou Start : 25-Aug-2019 End : 04-Sep-2019 Inactive Comment on above: Take 1 tablet by henny th twice daily for 7 days. atorvastatin 40 mg oral tablet (20 sources) HMG-CoA Reductase Inhibitor Start: 06-04-19 take 1 tablet by mouth at bedtime 12 hr dextromethorphan hydrobromide 30 mg / guaiFENesin 600 mg extended release oral tablet (1 source) Uncompetitive M-ttjfqk-Y-aspartate Receptor Antagonist, Sigma-1 Agonist Start: 03-22-20 End: 03-29-19 23 take 1 tablet by mouth twice daily dextromethorphan-g uaiFENesin (MUCINEX DM) 30-600 mg per tablet Take 1 tablet by mouth twice daily for 7 days. 14 tablet 0 03/22/2022 03/29/2022 Active Comment on above: Take 1 tablet by henny twice daily for 7 days. doxycycline hyclate 100 mg oral tablet (20 sources) Tetracycline-class Drug Start: 03-22-20 End: 03-29-19 23 take 1 tablet by mouth twice daily doxycycline (VIBRA-TABS) 100 mg tablet Take 1 tablet by mouth twice daily for 7 days. 14 tablet 0 03/22/2022 03/29/2022 Active Start: 04-26-2019 End: 04-28-2019 take 1 tablet by mouth twice daily Doxycycline Hyclate 100 MG Oral Tablet Delayed Release 1 (one) Tablet bid for 7 days Quantity: 14 {Tablet} Refills: 0 Ordered: 28-Apr-2019 Pat Brumfield RN Start : 26-Apr-2019 End : 28-Apr-2019 Inactive Comment on above: Take 1 tablet by henny th twice daily for 7 days. 24 hr isosorbide mononitrate 30 mg extended release oral tablet (20 sources) Nitrate Vasodilator Start: 05-20-2024 End: 10-18-2024 take 1 tablet by mouth once daily in the morning, then take 1 tablet by mouth every twenty-four hours losartan potassium 50 mg oral tablet (20 sources) Angiotensin 2 Receptor Edy Start: 01-10-2025 take 1 tablet by mouth once daily Start: 01-10-2025 take 1 tablet by henny th once daily Start: 01-10-2025 take 1 tablet by henny th once daily Start: 01-10-2025 take 1 tablet by henny th once daily Start: 01-10-2025 take 1 tablet by henny th once daily Start: 04-28-2024 End: 01-10-2025 take 1 tablet by mouth once daily Losartan 100 mg tablet Discontinued 100 mg PO daily 90 April 28, 2024 10:31am January 10, 2025 8:31am BP Start: 04-22-2024 End: 04-28-2024 take 1 tablet by mouth once daily Losartan 50 mg tablet Discontinued 50 mg PO daily 90 3 April 22, 2024 1:00am April 28, 2024 10:32am Start: 04-11-2024 End: 04-22-2024 take 1 tablet by mouth once daily Losartan 25 mg tablet Discontinued 25 mg PO daily April 11, 2024 1:00am April 22, 2024 12:00pm Start: 11-20-2021 End: 03-03-2024 take 1 tablet by mouth once daily Losartan 25 mg tablet Discontinued 25 mg PO DAILY November 20, 2021 12:00am March 03, 2024 12:17pm Start: 09-13-2021 take 1 tablet by henny th once daily in the morning Losartan Potassium 25 MG Oral Tablet 1 (one) Tablet qam for 0 days Quantity: 30 {Tablet} Refills: 1 Ordered: 13-Sep-2021 Heather Chamberlain LPN Start : 13-Sep-2021 Active metroNIDAZOLE 500 mg oral ta blet (20 sources) Nitroimidazole Antimicrobial Start: 01-17-2025 Start: 01-17-2025 Start: 01-17-2025 Start: 01-17-2025 Start: 08-06-2010 End: 08-06-2010 take 1 tablet by mouth three times daily FLAGYL, 500MG (Oral Tablet) 1 (one) Tablet tid for 0 days Quantity: 42 {Tablet} Refills: 0 Ordered: 06-Aug-2010 Cher Mendez Start : 06-Aug-2010 End : 06-Aug-2010 Discontinued mirtazapine 7.5 mg oral tablet (20 sources) Start: 04-11-2024 take 1 tablet by mouth at bedtime montelukast 10 mg oral tablet (20 sources) Leukotriene Receptor Antagonist Start: 01-20-2023 take 1 tablet by mouth once daily Singulair 10 mg oral tablet 1 Tablet QD for 30 days Quantity: 30 {Tablet} Refills: 3 Ordered: 20-Jan-2023 Love Day DO Start : 20-Jan-2023 Active Start: 08-06-2022 take 1 tablet by henny th once daily Singulair 10 mg oral tablet 1 Tablet QD for 30 days Quantity: 30 {Tablet} Refills: 3 Ordered: 06-Aug-2022 Lou Siegel DO, DO, Kathleen Start : 06-Aug-2022 Active Start: 02-19-2022 take 1 tablet by henny th once daily Singulair 10 mg oral tablet 1 Tablet QD for 30 days Quantity: 30 {Tablet} Refills: 3 Ordered: 19-Feb-2022 Lou Siegel DO, DO, Kathleen Start : 19-Feb-2022 Active Start: 10-21-2021 take 1 tablet by henny th once daily Singulair 10 MG Oral Tablet 1 Tablet QD for 30 days Quantity: 30 {Tablet} Refills: 3 Ordered: 21-Oct-2021 Lou Siegel DO, DO, Kathleen Start : 21-Oct-2021 Active Start: 03-27-2021 End: 04-12-2019 take 1 tablet by mouth once daily Singulair 10 MG Oral Tablet 1 Tablet QD for 30 days Quantity: 30 {Tablet} Refills: 3 Ordered: 27-Mar-2021 Love Day DO Start : 27-Mar-2021 End : 12-Apr-2019 Active Start: 03-27-2021 End: 04-12-2019 take 1 tablet by mouth once daily Singulair 10 MG Oral Tablet 1 Tablet QD for 30 days Quantity: 30 {Tablet} Refills: 3 Ordered: 27-Mar-2021 Fast DO Love A Start : 27-Mar-2021 End : 12-Apr-2019 Active Start: 03-27-2021 End: 04-12-2019 take 1 tablet by mouth once daily Singulair 10 MG Oral Tablet 1 Tablet QD for 30 days Quantity: 30 {Tablet} Refills: 3 Ordered: 27-Mar-2021 Fast DO, Love A Start : 27-Mar-2021 End : 12-Apr-2019 Active Start: 03-27-2021 End: 04-12-2019 take 1 tablet by mouth once daily Singulair 10 MG Oral Tablet 1 Tablet QD for 30 days Quantity: 30 {Tablet} Refills: 3 Ordered: 27-Mar-2021 Fast DO Love A Start : 27-Mar-2021 End : 12-Apr-2019 Active Start: 03-27-2021 End: 04-12-2019 take 1 tablet by mouth once daily Singulair 10 MG Oral Tablet 1 Tablet QD for 30 days Quantity: 30 {Tablet} Refills: 3 Ordered: 27-Mar-2021 Fast DO Love A Start : 27-Mar-2021 End : 12-Apr-2019 Active Start: 03-27-2021 End: 04-12-2019 take 1 tablet by mouth once daily Singulair 10 MG Oral Tablet 1 Tablet QD for 30 days Quantity: 30 {Tablet} Refills: 3 Ordered: 27-Mar-2021 Fast DO Love A Start : 27-Mar-2021 End : 12-Apr-2019 Active Start: 03-27-2021 End: 04-12-2019 take 1 tablet by mouth once daily Singulair 10 MG Oral Tablet 1 Tablet QD for 30 days Quantity: 30 {Tablet} Refills: 3 Ordered: 27-Mar-2021 Fast DO Love A Start : 27-Mar-2021 End : 12-Apr-2019 Active Start: 03-27-2021 End: 04-12-2019 take 1 tablet by mouth once daily Singulair 10 MG Oral Tablet 1 Tablet QD for 30 days Quantity: 30 {Tablet} Refills: 3 Ordered: 27-Mar-2021 Fast DO Love A Start : 27-Mar-2021 End : 12-Apr-2019 Active Start: 03-27-2021 End: 04-12-2019 take 1 tablet by mouth once daily Singulair 10 MG Oral Tablet 1 Tablet QD for 30 days Quantity: 30 {Tablet} Refills: 3 Ordered: 27-Mar-2021 Shay LERMALove A Start : 27-Mar-2021 End : 12-Apr-2019 Active Start: 03-27-2021 End: 04-12-2019 take 1 tablet by mouth once daily Singulair 10 MG Oral Tablet 1 Tablet QD for 30 days Quantity: 30 {Tablet} Refills: 3 Ordered: 27-Mar-2021 Fast DO Love A Start : 27-Mar-2021 End : 12-Apr-2019 Active Start: 03-27-2021 End: 04-12-2019 take 1 tablet by mouth once daily Singulair 10 MG Oral Tablet 1 Tablet QD for 30 days Quantity: 30 {Tablet} Refills: 3 Ordered: 27-Mar-2021 Shay LERMAAarona A Start : 27-Mar-2021 End : 12-Apr-2019 Active Start: 03-27-2021 End: 04-12-2019 take 1 tablet by mouth once daily Singulair 10 MG Oral Tablet 1 Tablet QD for 30 days Quantity: 30 {Tablet} Refills: 3 Ordered: 27-Mar-2021 Shay Love LERMA A Start : 27-Mar-2021 End : 12-Apr-2019 Active Start: 03-27-2021 End: 04-12-2019 take 1 tablet by mouth once daily Singulair 10 MG Oral Tablet 1 Tablet QD for 30 days Quantity: 30 {Tablet} Refills: 3 Ordered: 27-Mar-2021 Shay Love LERMA A Start : 27-Mar-2021 End : 12-Apr-2019 Active Start: 03-27-2021 End: 04-12-2019 take 1 tablet by mouth once daily Singulair 10 MG Oral Tablet 1 Tablet QD for 30 days Quantity: 30 {Tablet} Refills: 3 Ordered: 27-Mar-2021 Fast DO Love A Start : 27-Mar-2021 End : 12-Apr-2019 Active Start: 09-27-2020 End: 04-12-2019 take 1 tablet by mouth once daily Singulair 10 MG Oral Tablet 1 Tablet QD for 30 days Quantity: 30 {Tablet} Refills: 3 Ordered: 27-Sep-2020 Christal DOLou DOMargaLou Start : 27-Sep-2020 End : 12-Apr-2019 Active Start: 09-27-2020 End: 04-12-2019 take 1 tablet by mouth once daily Singulair 10 MG Oral Tablet 1 Tablet QD for 30 days Quantity: 30 {Tablet} Refills: 3 Ordered: 27-Sep-2020 Christal DOLou DOPaulaLou Start : 27-Sep-2020 End : 12-Apr-2019 Active Start: 02-02-2020 End: 04-12-2019 take 1 tablet by mouth once daily Singulair 10 MG Oral Tablet 1 Tablet QD for 30 days Quantity: 30 {Tablet} Refills: 4 Ordered: 02-Feb-2020 Christal DOLou DOMargaLou Start : 02-Feb-2020 End : 12-Apr-2019 Active Start: 02-02-2020 End: 04-12-2019 take 1 tablet by mouth once daily Singulair 10 MG Oral Tablet 1 Tablet QD for 30 days Quantity: 30 {Tablet} Refills: 4 Ordered: 02-Feb-2020 Christal DOLou DOLou Start : 02-Feb-2020 End : 12-Apr-2019 Active Start: 02-02-2020 End: 04-12-2019 take 1 tablet by mouth once daily Singulair 10 MG Oral Tablet 1 Tablet QD for 30 days Quantity: 30 {Tablet} Refills: 4 Ordered: 02-Feb-2020 Christal DOLou DOLou Start : 02-Feb-2020 End : 12-Apr-2019 Active Start: 08-12-2019 End: 04-12-2019 take 1 tablet by mouth once daily Singulair 10 MG Oral Tablet 1 Tablet QD for 30 days Quantity: 30 {Tablet} Refills: 4 Ordered: 12-Aug-2019 Christal DOLou DOPaulaLou Start : 12-Aug-2019 End : 12-Apr-2019 Active Start: 08-12-2019 End: 04-12-2019 take 1 tablet by mouth once daily Singulair 10 MG Oral Tablet 1 Tablet QD for 30 days Quantity: 30 {Tablet} Refills: 4 Ordered: 12-Aug-2019 Christal DOLou Christal DOMargaLou Start : 12-Aug-2019 End : 12-Apr-2019 Active Start: 08-12-2019 End: 04-12-2019 take 1 tablet by mouth once daily Singulair 10 MG Oral Tablet 1 Tablet QD for 30 days Quantity: 30 {Tablet} Refills: 4 Ordered: 12-Aug-2019 Christal DO, Lou Christal DO Lou Start : 12-Aug-2019 End : 12-Apr-2019 Active Start: 08-12-2019 End: 04-12-2019 take 1 tablet by mouth once daily Singulair 10 MG Oral Tablet 1 Tablet QD for 30 days Quantity: 30 {Tablet} Refills: 4 Ordered: 12-Aug-2019 Christal DO, Lou Christal DO Olu Start : 12-Aug-2019 End : 12-Apr-2019 Active Start: 08-12-2019 End: 04-12-2019 take 1 tablet by mouth once daily Singulair 10 MG Oral Tablet 1 Tablet QD for 30 days Quantity: 30 {Tablet} Refills: 4 Ordered: 12-Aug-2019 Christal DO, Lou Christal DOMargaLou Start : 12-Aug-2019 End : 12-Apr-2019 Active Start: 08-12-2019 End: 04-12-2019 take 1 tablet by mouth once daily Singulair 10 MG Oral Tablet 1 Tablet QD for 30 days Quantity: 30 {Tablet} Refills: 4 Ordered: 12-Aug-2019 Christal DO, Lou Christal DO Lou Start : 12-Aug-2019 End : 12-Apr-2019 Active Start: 08-12-2019 End: 04-12-2019 take 1 tablet by mouth once daily Singulair 10 MG Oral Tablet 1 Tablet QD for 30 days Quantity: 30 {Tablet} Refills: 4 Ordered: 12-Aug-2019 Christal DO, Lou Christal DO Lou Start : 12-Aug-2019 End : 12-Apr-2019 Active Start: 08-12-2019 End: 04-12-2019 take 1 tablet by mouth once daily Singulair 10 MG Oral Tablet 1 Tablet QD for 30 days Quantity: 30 {Tablet} Refills: 4 Ordered: 12-Aug-2019 Christal DO, Lou Christal DO Lou Start : 12-Aug-2019 End : 12-Apr-2019 Active Start: 08-12-2019 End: 04-12-2019 take 1 tablet by mouth once daily Singulair 10 MG Oral Tablet 1 Tablet QD for 30 days Quantity: 30 {Tablet} Refills: 4 Ordered: 12-Aug-2019 Lou Siegel DO, DO, Kathleen Start : 12-Aug-2019 End : 12-Apr-2019 Active Start: 01-27-2019 take 1 tablet by henny th once daily Singulair 10 MG Oral Tablet 1 Tablet QD for 30 days Quantity: 30 {Tablet} Refills: 4 Ordered: 27-Jan-2019 Christal LERMALou DO, Kathleen Start : 27-Jan-2019 Active Start: 07-29-2018 take 1 tablet by henny th once daily Singulair 10 MG Oral Tablet 1 Tablet QD for 30 days Quantity: 30 {Tablet} Refills: 4 Ordered: 29-Jul-2018 Joy Martínez Start : 29-Jul-2018 Active Start: 02-01-2018 take 1 tablet by henny th once daily Singulair 10 MG Oral Tablet 1 Tablet QD for 30 days Quantity: 30 {Tablet} Refills: 4 Ordered: 01-Feb-2018 HcristalLou daniel DO, DO, Kathleen Start : 01-Feb-2018 Active Start: 01-29-2018 take 1 tablet by henny th once daily Singulair 10 MG Oral Tablet 1 Tablet QD for 30 days Quantity: 30 {Tablet} Refills: 4 Ordered: 29-Jan-2018 Christal LERMALou DO, Kathleen Start : 29-Jan-2018 Active Start: 05-02-2014 take 1 tablet by henny th once daily MONTELUKAST SODI UM (SINGULAIR ORAL) Take by mouth. 0 Active Comment on above: Take by mouth. neomycin sulfate 500 mg oral tablet (4 sources) Aminoglycoside Antibacterial Start: 01-17-2025 Start: 01-17-2025 Start: 01-17-2025 Start: 01-17-2025 nitroglycerin 0.4 mg sublingual tablet (20 sources) Nitrate Vasodilator Start: 06-03-2024 ofloxacin 3 mg/ml otic solution (20 sources) Quinolone Antimicrobial Start: 03-22-2022 End: 03-29-2022 ofloxacin (FLOXIN) 0.3 % otic solution Use 5 Drops in the right ear twice daily for 7 days. 10 mL 0 03/22/2022 03/29/2022 Active End: 02-08-2019 FLOXIN, 20MG/ML (IV Solution ) 2 QD for 0 days Refills: 0 Ordered: 08-Feb-2019 Alyssa Osuna LPN End : 08-Feb-2019 Discontinued Comments: This order discontinued per [facility]. FLOXIN, 20MG/ML (IV Solution) 2 QD for 0 days Refills: 0 Ordered: 02-Sep-2010 Cher Mendez Active Comment on above: This order discontin ued per [facility]. Use 5 Drops in the r ight ear twice daily for 7 days. polysaccharide iron complex 150 mg oral capsule (5 sources) Start: 01-10-2025 take 1 capsule by mouth once daily Start: 01-10-2025 take 1 capsule by mouth once d aily Start: 01-10-2025 take 1 capsule by mouth once d aily Start: 01-10-2025 take 1 capsule by mouth once d aily Start: 01-10-2025 take 1 capsule by mouth once d aily prasugrel 10 mg oral tablet (20 sources) P2Y12 Platelet Inhibitor Start: 07-12-2024 End: 07-27-2024 take 1 tablet by mouth once daily predniSONE 5 mg oral tablet (20 sources) Start: 10-24-2024 End: 01-10-2025 Prednisone 5 mg tablets,dose pack Discontinued 0 PO per package directions 21 October 24, 2024 12:00am January 10, 2025 8:35am Lateral epicondylitis of left elbow Lateral epicondylitis, left elbow pain PO PER PKG DIR Start: 07-06-2023 End: 03-03-2024 take 1 tablet by mouth twice daily Prednisone 10 mg tablet Discontinued 10 mg PO TWICE A DAY July 06, 2023 12:00am March 03, 2024 12:18pm Start: 06-19-2023 End: 07-06-2023 take 1 tablet by mouth once daily Prednisone 50 mg tablet Discontinued 50 mg PO DAILY 5 0 June 19, 2023 12:00am July 06, 2023 7:31pm Start: 10-13-2022 End: 10-21-2022 take 3 tablets by mouth once daily, then take 1 tablet by mouth once daily, then take 1 tablet by mouth once daily at mealtime predniSONE 10 mg oral tablet 1 (one) Tablet TAD for 8 days Quantity: 15 {Tablet} Refills: 0 Ordered: 13-Oct-2022 Lou Siegel DO, DO, Kathleen Start : 13-Oct-2022 End : 21-Oct-2022 Inactive Comments: 3 tablets daily x 2 days,2 tablets daily x 3 days,1 tablet daily x 3 days.with food Start: 05-29-2022 End: 06-07-2022 take 3 tablets by mouth once daily, then take 1 tablet by mouth once daily, then take 1 tablet by mouth once daily at mealtime predniSONE 10 mg oral tablet 1 (one) Tablet TAD for 9 days Quantity: 18 {Tablet} Refills: 0 Ordered: 29-May-2022 Bjkacie RES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Alyssa Start : 29-May-2022 End : 07-Jun-2022 Inactive Comments: 3 tablets daily x 3 days,2 tablets daily x 3 days,1 tablet daily x 3 days.with food Start: 05-05-2022 End: 05-14-2022 take 3 tablets by mouth once daily, then take 1 tablet by mouth once daily, then take 1 tablet by mouth once daily at mealtime predniSONE 10 mg oral tablet 1 (one) Tablet TAD for 9 days Quantity: 18 {Tablet} Refills: 0 Ordered: 05-May-2022 Lou Siegel DO, DO, Kathleen Start : 05-May-2022 End : 14-May-2022 Inactive Comments: 3 tablets daily x 3 days,2 tablets daily x 3 days,1 tablet daily x 3 days.with food Start: 03-26-2022 End: 03-31-2022 predniSONE 20 mg oral tablet 1 (one) Tablet two times daily for 3days then one tab daily for 2days for 5 days Quantity: 8 {Tablet} Refills: 0 Ordered: 26-Mar-2022 Lou Siegel DO, DO, Kathleen Start : 26-Mar-2022 End : 31-Mar-2022 Inactive Start: 05-01-2021 End: 05-15-2021 take 4 tablets by mouth once daily, then take 3 tablets by mouth once daily, then take 2 tablets by mouth once daily, then take 1 tablet by mouth once daily Prednisone 10 mg tablet Discontinued 10 mg PO DAILY 30 0 May 01, 2021 1:00am May 15, 2021 11:56am 4 tablets daily for 3 days, then 3 tablets daily for 3 days, then 2 tablets daily for 3 days, then 1 tablet daily for 3 days Start: 01-30-2021 End: 02-04-2021 predniSONE 20 MG Oral Tablet 1 (one) Tablet two times daily for 3days then one tab daily for 2days for 5 days Quantity: 8 {Tablet} Refills: 0 Ordered: 30-Jan-2021 Lou Siegel DO, DO, Kathleen Start : 30-Jan-2021 End : 04-Feb-2021 Inactive Start: 01-16-2020 End: 01-22-2020 predniSONE 20 MG Oral Tablet tad Tablet 1tab bid for 3days then one tab qd for 4days then 1/2 tab qd for 4days for 6 days Quantity: 14 {Tablet} Refills: 0 Ordered: 16-Jan-2020 Lou Siegel DO, DO, Kathleen Start : 16-Jan-2020 End : 22-Jan-2020 Inactive Start: 05-12-2019 End: 10-24-2019 take 1 tablet by mouth once daily predniSONE 20 MG Oral Tablet 1 (one) Tablet qd for 0 days Quantity: 4 {QS} Refills: 0 Ordered: 24-Oct-2019 Wilfrido Bynum LPN Start : 12-May-2019 End : 24-Oct-2019 Inactive Start: 04-12-2019 End: 04-26-2019 take 3 tablets by mouth once daily, then take 1 tablet by mouth once daily, then take 1 tablet by mouth once daily at mealtime predniSONE 10 MG Oral Tablet 1 (one) Tablet TAD for 0 days Quantity: 18 {Tablet} Refills: 0 Ordered: 26-Apr-2019 Alyssa Osuna LPN Start : 12-Apr-2019 End : 26-Apr-2019 Inactive Comments: 3 tablets daily x 3 days,2 tablets daily x 3 days,1 tablet daily x 3 days.with food Start: 02-08-2019 take 3 tablets by mo uth once daily, then take 1 tablet by mouth once daily, then take 1 tablet by mouth once daily at mealtime predniSONE 10 MG Oral Tablet 1 (one) Tablet TAD for 0 days Quantity: 18 {Tablet} Refills: 0 Ordered: 08-Feb-2019 Karla Schultz CNP Start : 08-Feb-2019 Active Comments: 3 tablets daily x 3 days,2 tablets daily x 3 days,1 tablet daily x 3 days.with food Start: 03-26-2017 take 3 tablets by mo ut once daily, then take 1 tablet by mouth once daily, then take 1 tablet by mouth once daily PredniSONE 10 MG Oral Tablet 1 (one) Tablet Tablet TAD for 0 days Quantity: 18 {Tablet} Refills: 0 Ordered: 26-Mar-2017 Tanya LARAJoy Start : 26-Mar-2017 Active Comments: 3 tablets daily x 3 days,2 tablets daily x 3 days,1 tablet daily x 3 days. Start: 01-31-2015 End: 03-14-2016 take 1 tablet by mouth once daily PredniSONE 20 MG Oral Tablet 1 (one) Tablet qd for 0 days Quantity: 3 {QS} Refills: 0 Ordered: 14-Mar-2016 Alyssa Osuna LPN Start : 31-Jan-2015 End : 14-Mar-2016 Discontinued Start: 05-02-2014 End: 05-15-2021 take 3 tablets by mouth once daily Prednisone 20 MG tablet Discontinued 60 mg PO DAILY 15 May 02, 2014 1:00am May 15, 2021 11:56am Start: 05-02-2014 End: 05-15-2021 take 60 mg by mouth once daily Prednisone Discontinued 60 MG PO DAILY May 02, 2014 1:00am May 15, 2021 11:56am Comment on above: 3 tablets daily x 3 days,2 tablets daily x 3 days,1 tablet daily x 3 days. 3 tablets daily x 3 days,2 tablets daily x 3 days,1 tablet daily x 3 days.with food 3 tablets daily x 2 days,2 tablets daily x 3 days,1 tablet daily x 3 days.with food Completed/Discontinued Medications Medication Drug Class(es) Dates Sig (Normalized) Sig (Original) acetaminophen 500 mg / HYDROcodone bitartrate 5 mg oral tablet (20 sources) Opioid Agonist Start: 08-06-2010 End: 08-06-2010 take 1 tablet by mouth every six hours as needed VICODIN, 5-500MG (Oral Tablet) 1 (one) Tablet q 6 hours prn for 0 days Quantity: 60 {Tablet} Refills: 0 Ordered: 06-Aug-2010 Cher Mendez Start : 06-Aug-2010 End : 06-Aug-2010 Discontinued [id number] 200 actuat albuterol 0.09 mg/actuat metered dose inhaler (20 sources) beta2-Adrenergic Agonist Start: 05-26-2022 take 1-2 puff(s) by inhalation every four to six hours as needed ProAir HFA 90 mcg/actuation inhalation HFA Aerosol with Adapter 1-2 Puff Q4-6 hours PRN for 0 days Quantity: 1 {Each} Refills: 0 Ordered: 26-May-2022 Lou Siegel DO, DO, Kathleen Start : 26-May-2022 Active Start: 05-05-2022 albuterol sulf ate 2.5 mg /3 mL (0.083 %) inhalation vial for nebulizer 1 (one) Nebulized Soln four times daily, as needed for 0 days Quantity: 30 {Milliliter} Refills: 3 Ordered: 05-May-2022 Lou Siegel DO, DO, Kathleen Start : 05-May-2022 Active Comments: Medication taken as needed. Start: 04-29-2022 albuterol sulf ate 2.5 mg /3 mL (0.083 %) inhalation vial for nebulizer 1 (one) Nebulized Soln four times daily, as needed for 0 days Quantity: 30 {Milliliter} Refills: 3 Ordered: 29-Apr-2022 Lou Siegel DO, DO, Kathleen Start : 29-Apr-2022 Active Comments: Medication taken as needed. Start: 02-25-2022 albuterol sulf ate 2.5 mg /3 mL (0.083 %) inhalation vial for nebulizer 1 (one) Nebulized Soln four times daily, as needed for 0 days Quantity: 30 {Milliliter} Refills: 3 Ordered: 25-Feb-2022 Lou Siegel DO, DO, Kathleen Start : 25-Feb-2022 Active Comments: Medication taken as needed. Start: 03-26-2017 take 1-2 puff(s) by inhalation every four to six hours as needed ProAir HFA 108 (90 Base) MCG/ACT Inhalation Aerosol Solution 1-2 Puff Puff Q4-6 hours PRN for 0 days Quantity: 1 {Inhaler} Refills: 0 Ordered: 26-Mar-2017 Joy Martínez CMA Start : 26-Mar-2017 Active Start: 03-26-2017 take 1-2 puff(s) by inhalation every four to six hours as needed ProAir HFA 108 (90 Base) MCG/ACT Inhalation Aerosol Solution 1-2 Puff Puff Q4-6 hours PRN for 0 days Quantity: 1 {Inhaler} Refills: 0 Ordered: 26-Mar-2017 Joy Martínez CMA Start : 26-Mar-2017 Active Start: 02-01-2015 End: 10-24-2019 Albuterol Sulfate (2.5 MG/3M L) 0.083% Inhalation Nebulization Solution 1 (one) Nebulized Soln Nebulized Soln four times daily, as needed for 0 days Quantity: 30 {Ampule} Refills: 3 Ordered: 24-Oct-2019 Wilfrido Bynum LPN Start : 26-Apr-2019 End : 24-Oct-2019 Inactive Comments: Medication taken as needed. Start: 05-02-2014 Start: 05-02-2014 Albuterol Sulf ate (Ventolin Hfa) 1 INHALER inhaler Active 1 - 2 NMA INHALATION EVERY 4 HOURS NEEDED as needed for Wheezing 1 May 02, 2014 1:00am Start: 05-02-2014 Albuterol Sulf ate (Ventolin Hfa) 1 INHALER inhaler Active 1 - 2 NMA INHALATION EVERY 4 HOURS NEEDED as needed for Wheezing May 02, 2014 1:00am Start: 05-02-2014 take 1 puff(s) by in halation every four hours as needed Albuterol Sulfate (Ventolin Hfa) 1 INHALER inhaler Active 1 - 2 PUFF INHALATION EVERY 4 HOURS NEEDED May 02, 2014 12:00am Start: 05-02-2014 take 1 puff(s) by in halation every four hours as needed Albuterol Sulfate (Ventolin Hfa) 1 INHALER inhaler Active 1 - 2 PUFF INHALATION EVERY 4 HOURS NEEDED May 02, 2014 1:00am Start: 12-04-2006 End: 02-08-2019 ALBUTEROL SULFATE HFA, 108MC G/ACT (Inhalation Aerosol Soln) 2 (two) Aerosol Soln Q 4hr/PRN for 0 days Refills: 0 Ordered: 04-Dec-2006 Slarb 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, Alyssa Start : 04-Dec-2006 End : 08-Feb-2019 Discontinued Comments: This order discontinued per [facility]. Start: 12-04-2006 End: 12-04-2006 PROVENTIL, 90MCG/ACT (Inhala tion Aerosol Solution) Aerosol Soln As needed for 0 days Refills: 0 Ordered: 04-Dec-2006 Lou Siegel DO, DO, Kathleen Start : 04-Dec-2006 End : 04-Dec-2006 Discontinued Comments: Medication taken as needed. Start: 12-04-2006 End: 12-04-2006 PROVENTIL, 90MCG/ACT (Inhala tion Aerosol Solution) Aerosol Soln As needed for 0 days Refills: 0 Ordered: 04-Dec-2006 Lou Siegel DO, DO, Kathleen Start : 04-Dec-2006 End : 04-Dec-2006 Discontinued Comments: Medication taken as needed. Start: 12-04-2006 End: 02-08-2019 ALBUTEROL SULFATE HFA, 108MC G/ACT (Inhalation Aerosol Soln) 2 (two) Aerosol Soln Q 4hr/PRN for 0 days Refills: 0 Ordered: 04-Dec-2006 Slarb 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, Alyssa Start : 04-Dec-2006 End : 08-Feb-2019 Discontinued Comments: This order discontinued per [facility]. Start: 12-04-2006 End: 12-04-2006 PROVENTIL, 90MCG/ACT (Inhala tion Aerosol Solution) Aerosol Soln As needed for 0 days Refills: 0 Ordered: 04-Dec-2006 Lou Siegel DO, DO, Kathleen Start : 04-Dec-2006 End : 04-Dec-2006 Discontinued Comments: Medication taken as needed. Start: 12-04-2006 End: 12-04-2006 PROVENTIL, 90MCG/ACT (Inhala tion Aerosol Solution) Aerosol Soln As needed for 0 days Refills: 0 Ordered: 04-Dec-2006 Lou Siegel DO, DO, Kathleen Start : 04-Dec-2006 End : 04-Dec-2006 Discontinued Comments: Medication taken as needed. Start: 12-04-2006 End: 02-08-2019 ALBUTEROL SULFATE HFA, 108MC G/ACT (Inhalation Aerosol Soln) 2 (two) Aerosol Soln Q 4hr/PRN for 0 days Refills: 0 Ordered: 04-Dec-2006 Greg Osuna LPNa Start : 04-Dec-2006 End : 08-Feb-2019 Discontinued Comments: This order discontinued per [facility]. End: 02-08-2019 VENTOLIN, 90MCG/ACT (Inhalat ion Aerosol Soln) As needed for 0 days Refills: 0 Ordered: 08-Feb-2019 Thao LEON Alyssa End : 08-Feb-2019 Discontinued Comments: Medication taken as needed. This order discontinued per [facility]. End: 02-08-2019 VENTOLIN, 90MCG/ACT (Inhalat ion Aerosol Soln) As needed for 0 days Refills: 0 Ordered: 08-Feb-2019 Alyssa Osuna LPN End : 08-Feb-2019 Discontinued Comments: Medication taken as needed. This order discontinued per [facility]. End: 02-08-2019 VENTOLIN, 90MCG/ACT (Inhalat ion Aerosol Soln) As needed for 0 days Refills: 0 Ordered: 08-Feb-2019 Alyssa Osuna LPN End : 08-Feb-2019 Discontinued Comments: Medication taken as needed. This order discontinued per -. VENTOLIN, 90MCG/ ACT (Inhalation Aerosol Soln) As needed for 0 days Refills: 0 Ordered: 02-Sep-2010 Cher Mendez Active Comments: Medication taken as needed. VENTOLIN, 90MCG/ ACT (Inhalation Aerosol Soln) As needed for 0 days Refills: 0 Ordered: 02-Sep-2010 Cher Mendez Active Comments: Medication taken as needed. Comment on above: Medication taken as needed. This order discontin ued per [facility]. Medication taken as needed. This order discontinued per [facility]. ALBUTEROL SULFATE HFA, 108MCG/ACT (Inhalation Aerosol Soln) (12 sources) Start: 12-05-19 End: 02-09-20 ALBUTEROL SULFATE HFA, 108MCG/ACT (Inhalation Aerosol Soln) 2 (two) Aerosol Soln Q 4hr/PRN for 0 days Refills: 0 Ordered: 04-Dec-2006 Alyssa Osuna LPN Start : 04-Dec-2006 End : 08-Feb-2019 Discontinued Comments: This order discontinued per [facility]. Comment on above: This order discontin ued per [facility]. Allergy medication capsules (antihistamine) (20 sources) Allergy medicati on capsules (antihistamine) Inactive azithromycin 250 mg oral tablet (20 sources) Macrolide Antimicrobial Start: 05-05-19 End: 05-30-19 take 1 tablet by mouth once daily Zithromax Z-Chuy 250 mg oral tablet tad Tablet qd for 0 days Quantity: 1 {Packet} Refills: 0 Ordered: 29-May-2022 Middle Rivertone LARAJake Start : 05-May-2022 End : 29-May-2022 Inactive Comments: dispenss one package Start: 04-28-2019 End: 05-02-2019 take 1 tablet by mouth once daily Azithromycin 500 MG Oral Tablet 1 (one) Tablet qd for 10 days Quantity: 10 {Tablet} Refills: 0 Ordered: 02-May-2019 Randybren LARAJoy Start : 28-Apr-2019 End : 02-May-2019 Inactive Start: 04-12-2019 End: 04-26-2019 Zithromax Z-Chuy 250 MG Oral Tablet 1 (one) Tablet TAD for 0 days Quantity: 1 {Package} Refills: 0 Ordered: 26-Apr-2019 Thao LEONAlyssa Start : 12-Apr-2019 End : 26-Apr-2019 Inactive Comment on above: dispenss one package baclofen 10 mg oral tablet (20 sources) gamma-Aminobutyric Acid-ergic Agonist Start: 4 End: 4 take 1 tablet by mouth once daily Baclofen 10 mg tablet Discontinued 10 mg PO DAILY July 06, 2023 12:00am March 03, 2024 12:17pm benzonatate 200 mg oral capsule (20 sources) Non-narcotic Antitussive Start: 4 End: 4 take 1 capsule by mouth three times daily as needed Benzonatate 200 mg capsule Discontinued 200 mg PO 3 TIMES DAILY NEEDED July 06, 2023 12:00am March 03, 2024 12:17pm cough Start: 2022 End: 06-15-2022 take 1 capsule by mouth three times daily as needed benzonatate 200 mg oral capsule 1 (one) capsule three times daily, as needed for 10 days Quantity: 30 {Capsule} Refills: 0 Ordered: 05-Jun-2022 Alana LARA Rosita Start : 05-Jun-2022 End : 15-Jun-2022 Inactive Comments: Medication taken as needed. Comment on above: Take 1 capsule by mo [facility] three times daily as needed. Medication taken as needed. BUDESONIDE/FORMOTEROL FUMARATE (SYMBICORT INHALATION) (2 sources) BUDESONIDE/FORMO TEROL FUMARATE (SYMBICORT INHALATION) Inhale as instructed. 0 Active Comment on above: Inhale as instructed . camphor 0.031 mg/mg / menthol 0.06 mg/mg / methyl salicylate 0.1 mg/mg medicated patch (20 sources) Start: 11-20-2021 End: 07-06-2023 Camphor-Methyl Salicyl-Menthol (Salonpas) 3.1-10-6 % adhesive patch,medicated Discontinued 1 NMA TOPICAL DAILY as needed November 20, 2021 12:00am July 06, 2023 7:29pm may leave on area for up to 8 hrs Start: 11-20-2021 End: 07-06-2023 Camphor-Methyl Salicyl-Menth ol (Salonpas) 3.1-10-6 % adhesive patch,medicated Discontinued 1 PATCH TOPICAL DAILY November 20, 2021 12:00am July 06, 2023 7:29pm may leave on area for up to 8 hrs cefdinir 300 mg oral capsule (20 sources) Cephalosporin Antibacterial Start: 01-02-2017 End: 01-09-2017 take 1 mg by mouth twice daily Cefdinir 300 MG Oral Capsule 1 (one) Milligram bid for 0 days Quantity: 14 {Milligram} Refills: 0 Ordered: 09-Jan-2017 Pat Brumfield RN Start : 02-Jan-2017 End : 09-Jan-2017 Inactive cefuroxime 500 mg oral tablet (20 sources) Cephalosporin Antibacterial Start: 04-28-2019 End: 05-02-2019 take 1 tablet by mouth twice daily Cefuroxime Axetil 500 MG Oral Tablet 1 (one) Tablet bid for 10 days Quantity: 20 {Tablet} Refills: 0 Ordered: 02-May-2019 Joy Martínez CMA Start : 28-Apr-2019 End : 02-May-2019 Inactive ciprofloxacin 500 mg oral tablet (20 sources) Quinolone Antimicrobial Start: 08-06-2010 End: 08-06-2010 take 1 tablet by mouth twice daily CIPRO, 500MG (Oral Tablet) 1 (one) Tablet bid for 0 days Quantity: 28 {Tablet} Refills: 0 Ordered: 06-Aug-2010 Cher Mendez Start : 06-Aug-2010 End : 06-Aug-2010 Discontinued ciprofloxacin 3 mg/ml / dexamethasone 1 mg/ml otic suspension (20 sources) Corticosteroid, Quinolone Antimicrobial Start: 05-08-2014 End: 05-19-2014 CIPRODEX, 0.3-0.1% (Otic Suspension) 5 dropps bid for 30 days Refills: 0 Ordered: 19-May-2014 Pat Brumfield RN Start : 08-May-2014 End : 19-May-2014 Inactive Start: 05-05-2014 End: 05-15-2021 Ciprofloxacin-Dexamethasone (Ciprodex) 7.5 ML drops,suspension Discontinued 5 NMA Right Ear TWICE A DAY May 05, 2014 1:00am May 15, 2021 11:56am clopidogrel 75 mg oral tablet (20 sources) [id number] Platelet Inhibitor Start: 08-05-2024 End: 08-24-2024 take 1 tablet by mouth once daily Clopidogrel 75 mg tablet Discontinued 75 mg PO daily August 05, 2024 12:00am August 24, 2024 11:16am Start: 06-03-2024 End: 07-13-2024 take 1 tablet by mouth once daily Clopidogrel 75 mg tablet Discontinued 75 mg PO daily June 03, 2024 12:00am July 13, 2024 5:05pm BLOOD THINNER Start: 09-13-2021 End: 07-06-2023 take 1 tablet by mouth once daily Clopidogrel 75 mg tablet Discontinued 75 mg PO DAILY November 20, 2021 12:00am July 06, 2023 7:30pm codeine phosphate 2 mg/ml / guaiFENesin 20 mg/ml oral solution (20 sources) Opioid Agonist Start: 04-12-2019 End: 04-26-2019 take 5-10 mL by mouth three to four times daily before mealtime Cheratussin AC 100-10 MG/5ML Oral Solution 5-10 Milliliter 3-4 times daily for 0 days Quantity: 250 {Milliliter} Refills: 0 Ordered: 26-Apr-2019 Alyssa Osuna LPN Start : 12-Apr-2019 End : 26-Apr-2019 Inactive Start: 02-08-2019 take 5-10 mL by mout h three to four times daily before mealtime Cheratussin AC 100-10 MG/5ML Oral Solution 5-10 Milliliter 3-4 times daily for 0 days Quantity: 280 {Milliliter} Refills: 0 Ordered: 08-Feb-2019 Karla Schultz CNP Start : 08-Feb-2019 Active cyclobenzaprine hydrochloride 10 mg oral tablet (20 sources) Muscle Relaxant Start: 05-01-2021 End: 05-08-2021 take 1 tablet by mouth three times daily as needed for muscle spasms Cyclobenzaprine 10 mg tablet Discontinued 10 mg PO THREE TIMES A DAY as needed for muscle spasm 30 0 May 01, 2021 1:00am May 08, 2021 2:33pm dipyridamole 50 mg oral tablet (15 sources) Platelet Aggregation Inhibitor Start: 06-28-2024 End: 08-05-2024 Dipyridamole 50 mg tablet Discontinued 100 mg PO EVERY 6 HOURS 240 30 1 June 28, 2024 12:00am August 05, 2024 1:03pm anticoagulant administer 1 hour before or 2 hours after food or meals 14 actuat fluticasone propionate 0.5 mg/actuat / salmeterol 0.05 mg/actuat dry powder inhaler (20 sources) Corticosteroid, beta2-Adrenergic Agonist Start: 05-29-2022 Advair Diskus 500 mcg-50 mcg/dose powder for inhalation 1 (one) Aero Pow Br Act BID for 0 days Quantity: 3 {Each} Refills: 3 Ordered: 29-May-2022 Nora Mehta MD Start : 29-May-2022 Active Start: 08-09-2021 Advair Diskus 500-50 MCG/DOSE Inhalation Aerosol Powder Breath Activated 1 (one) Aero Pow Br Act BID for 0 days Quantity: 3 {Each} Refills: 3 Ordered: 09-Aug-2021 Lou Siegel DO, DO, Kathleen Start : 09-Aug-2021 Active Start: 08-09-2021 Advair Diskus 500-50 MCG/DOSE Inhalation Aerosol Powder Breath Activated 1 (one) Aero Pow Br Act BID for 0 days Quantity: 3 {Each} Refills: 3 Ordered: 09-Aug-2021 Christal DO, Lou Aguilaron DO, Lou Start : 09-Aug-2021 Active Start: 07-05-2020 Advair Diskus 500-50 MCG/DOSE Inhalation Aerosol Powder Breath Activated 1 (one) Aero Pow Br Act BID for 0 days Quantity: 3 {Box} Refills: 3 Ordered: 05-Jul-2020 Christal DO, Lou Christal DO, Lou Start : 05-Jul-2020 Active Start: 05-09-2019 Advair Diskus 500-50 MCG/DOSE Inhalation Aerosol Powder Breath Activated 1 (one) Aero Pow Br Act BID for 0 days Quantity: 3 {Box} Refills: 3 Ordered: 09-May-2019 Christal DO, Lou Agiularon DO, Lou Start : 09-May-2019 Active Start: 02-23-2018 Advair Diskus 500-50 MCG/DOSE Inhalation Aerosol Powder Breath Activated 1 (one) Aero Pow Br Act BID for 0 days Quantity: 3 {Box} Refills: 3 Ordered: 23-Feb-2018 Christal DO, Lou Aguilaron DO, Lou Start : 23-Feb-2018 Active Start: 01-02-2017 Advair Diskus 500-50 MCG/DOSE Inhalation Aerosol Powder Breath Activated 1 (one) Aero Pow Br Act BID for 0 days Quantity: 3 {Box} Refills: 3 Ordered: 02-Jan-2017 Christal DO, Lou Christal DO, Lou Start : 02-Jan-2017 Active Start: 05-05-2014 End: 07-06-2023 take 1 puff(s) by inhalation twice daily Fluticasone Propion-Salmeterol (Advair Diskus) 1 PUFF inhaler Discontinued 1 NMA INHALATION TWICE A DAY May 05, 2014 1:00am July 06, 2023 7:30pm Start: 05-05-2014 End: 07-06-2023 take 1 puff(s) by inhalation twice daily Fluticasone Propion-Salmeterol (Advair Diskus) 1 PUFF inhaler Discontinued 1 PUFF INHALATION TWICE A DAY May 05, 2014 1:00am July 06, 2023 7:30pm Start: 05-05-2014 take 1 puff(s) by in halation twice daily Fluticasone Propion-Salmeterol (Advair Diskus) 1 PUFF inhaler Active 1 PUFF INHALATION TWICE A DAY May 05, 2014 12:00am Start: 05-05-2014 take 1 puff(s) by in halation twice daily Fluticasone Propion-Salmeterol (Advair Diskus) 1 PUFF inhaler Active 1 PUFF INHALATION TWICE A DAY May 05, 2014 1:00am fluticasone/salm eterol (ADVAIR HFA INHALATION) Inhale as instructed. 0 Active Comment on above: Inhale as instructed . gabapentin 100 mg oral capsule (20 sources) Anti-epileptic Agent Start: 2 End: 4 take 1 capsule by mouth twice daily Gabapentin 100 mg capsule Discontinued 100 mg PO TWICE A DAY November 20, 2021 12:00am July 06, 2023 7:30pm Start: 10-23-2020 take 1 capsule by [facility] once daily, then take 1 capsule by mouth twice daily Gabapentin 100 MG Oral Capsule 1 (one) Capsule 1 qd x 3 days then 1 bid for 0 days Quantity: 60 {Capsule} Refills: 0 Ordered: 23-Oct-2020 Heather Chamberlain LPN Start : 23-Oct-2020 Active Comments: M54.12Cervical radiculopathyOarrs run sixty Comment on above: M54.12Cervical radic ulopathyOarrs run sixty levoFLOXacin 250 mg oral tablet (20 sources) Quinolone Antimicrobial Start: 023 End: 023 take 2 tablets by mouth once daily levoFLOXacin 250 mg oral tablet 2 (two) tablet daily for 10 days Quantity: 20 {Tablet} Refills: 0 Ordered: 30-May-2022 Alyssa Osuna LPN Start : 30-May-2022 End : 09-Jun-2022 Inactive Start: 01-16-2020 End: 10-23-2020 take 1 tablet by mouth once daily Levaquin 500 MG Oral Tablet 1 (one) Tablet qd for 10 days Quantity: 10 {Tablet} Refills: 0 Ordered: 23-Oct-2020 Alyssa Osuna LPN Start : 16-Jan-2020 End : 23-Oct-2020 Inactive Start: 04-26-2019 End: 10-24-2019 take 1 tablet by mouth once daily Levaquin 500 MG Oral Tablet 1 (one) Tablet qd for 10 days Quantity: 10 {Tablet} Refills: 0 Ordered: 24-Oct-2019 Wilfrido Bynum LPN Start : 26-Apr-2019 End : 24-Oct-2019 Inactive Start: 03-14-2016 End: 01-02-2017 take 1 tablet by mouth once daily Levaquin 500 MG Oral Tablet 1 (one) Tablet qd for 10 days Quantity: 10 {Tablet} Refills: 0 Ordered: 02-Jan-2017 Pat Brumfield LPN Start : 14-Mar-2016 End : 02-Jan-2017 Inactive naproxen 250 mg oral tablet (20 sources) Nonsteroidal Anti-inflammatory Drug Start: 07-06-2023 End: 03-03-2024 take 1 tablet by mouth twice daily Naproxen 250 mg tablet Discontinued 250 mg PO TWICE A DAY July 06, 2023 12:00am March 03, 2024 12:18pm pantoprazole 40 mg delayed release oral tablet (20 sources) Proton Pump Inhibitor Start: 07-06-2023 End: 03-03-2024 take 1 tablet by mouth once daily Pantoprazole 40 mg tablet,delayed release (DR/EC) Discontinued 40 mg PO DAILY July 06, 2023 12:00am March 03, 2024 12:18pm rosuvastatin calcium 5 mg oral tablet (20 sources) HMG-CoA Reductase Inhibitor Start: 09-13-2021 End: 07-06-2023 take 1 tablet by mouth at bedtime Rosuvastatin 5 mg tablet Discontinued 5 mg PO AT BEDTIME November 20, 2021 12:00am July 06, 2023 7:31pm tiZANidine 4 mg oral tablet (20 sources) Central alpha-2 Adrenergic Agonist Start: 10-13-2022 take 1 tablet by mouth twice daily as needed tiZANidine 4 mg oral tablet 1 (one) Tablet bid prn for 0 days Quantity: 30 {Tablet} Refills: 0 Ordered: 13-Oct-2022 Lou Siegel DO, DO, Kathleen Start : 13-Oct-2022 Active Start: 02-03-2022 take 1 tablet by henny twice daily as needed tiZANidine 4 mg oral tablet 1 (one) Tablet bid prn for 0 days Quantity: 30 {Tablet} Refills: 0 Ordered: 03-Feb-2022 Joy Martínez CMA Start : 03-Feb-2022 Active Problems Active Problems Problem Classification Problem Date Documented Da te Episodic/Chronic Abdominal hernia (20 sources) Hiatal hernia; Translations: [Diaphragmatic hernia without obstruction or gangrene] 04-11-2024 Episodic Abdominal pain (20 sources) Acute abdominal pain; Translations: [Abdominal pain, acute, left lower quadrant] Resolved: 5 02-05-2015 Episodic Acute bronchitis (20 sources) Acute bronchitis; Translations: [Bronchitis, acute] 03-26-2017 Episodic Acute cerebrovascular disease (20 sources) Cerebrovascular accident; Translations: [CVA (cerebral vascular accident)] 09-13-2021 Chronic Comment on above: couple locations on ct 09/11 -- never knew he had them -- completely asx- new findingscant take asa bc of allergy causing asthma - will do plavixck echo ck carotids and add a statin and an jacinta Administrative/social admission (2 sources) Medical examinations/reports status; Translations: [Encounter for Medicare annual wellness exam] 03-26-2017 Episodic Asthma (20 sources) Asthma; Translations: [Acute exacerbation of asthma] Resolved: 5 03-26-2017 Chronic Comment on above: INHALER PRN Blindness and vision defects (20 sources) Right homonymous hemianopsia; Translations: [Homonymous hemianopia, right] 01-06-2022 Episodic Cancer of colon (10 sources) Malignant tumor of colon; Translations: [Malignant neoplasm of colon, unspecified] Onset: 5 01-11-2025 Chronic Chronic obstructive pulmonary disease and bronchiectasis (20 sources) Acute exacerbation of chronic obstructive airways disease with asthma; Translations: [Chronic obstructive asthma with acute exacerbation (Renamed from Chronic obstructive asthma with exacerbation)] 03-26-2017 Chronic Chronic obstructive pulmonary disease and bronchiectasis (20 sources) Bronchitis; Translations: [Bronchitis] 01-16-2020 Episodic Complications of surgical procedures or medical care (20 sources) Drug therapy finding; Translations: [Medication side effect] 03-26-2022 Episodic Coronary atherosclerosis and other heart disease (1 source) Unstable angina; Translations: [Unstable angina] Onset: 5 Chronic Deficiency and other anemia (20 sources) Iron deficiency anemia; Translations: [Iron deficiency anemia, unspecified] 04-11-2024 Episodic Deficiency and other anemia (2 sources) Iron deficiency anemia, unspecified; Translations: [Iron deficiency anemia, unspecified] Onset: Episodic Deficiency and other anemia (1 source) Anemia, unspecified; Translations: [Anemia, unspecified] Onset: 5 Episodic Diabetes mellitus without complication (20 sources) Abnormal glucose tolerance test; Translations: [Hyperglycemia] 03-26-2017 Episodic Comment on above: new dx Disorders of lipid metabolism (20 sources) Hyperlipidemia; Translations: [Hyperlipidemia, unspecified] Onset: 5 04-11-2024 Chronic Diverticulosis and diverticulitis (20 sources) Diverticulitis; Translations: [Diverticulitis of gastrointestinal tract] 03-26-2017 Chronic Essential hypertension (20 sources) Hypertensive disorder; Translations: [Essential (primary) hypertension] Onset: 5 09-20-2021 Chronic Comment on above: CONTROLLED ON MED Hyperplasia of prostate (20 sources) Benign prostatic hypertrophy without outflow obstruction; Translations: [BPH without urinary obstruction] 03-26-2017 Chronic Comment on above: stable Immunizations and screening for infectious disease (20 sources) Need for prophylactic vaccination and inoculation against influenza; Translations: [Encounter for immunization] 03-26-2017 Episodic Intracranial injury (20 sources) Concussion injury of body structure; Translations: [Concussion] Resolved: 3 09-13-2021 Episodic Comment on above: no screen time Nutritional deficiencies (20 sources) Vitamin D deficiency; Translations: [Vitamin D deficiency, unspecified] 04-11-2024 Chronic Occlusion or stenosis of precerebral arteries (20 sources) Left carotid artery occlusion; Translations: [Carotid occlusion, left] Onset: 5 01-06-2022 Chronic Comment on above: CTA images reviewed- 78% stenosis, long lesion, soft plaque with no significant calcification s/p L TCAR 07/12/24 Other aftercare (2 sources) Encounter for surgical aftercare following surgery on the circulatory system; Translations: [Encounter for surgical aftercare following surgery on the circulatory system] Onset: 5 Episodic Other connective tissue disease (20 sources) Pain in left arm; Translations: [Left arm pain] 10-24-2019 Episodic Other connective tissue disease (20 sources) Lateral epicondylitis of left humerus; Translations: [Lateral epicondylitis of left elbow] 01-16-2020 Episodic Comment on above: cant do nsaid Other connective tissue disease (20 sources) Pain in upper limb; Translations: [Arm pain] 01-30-2021 Episodic Other connective tissue disease (20 sources) Lateral epicondylitis; Translations: [Tennis elbow] Resolved: 3 01-30-2021 Episodic Other connective tissue disease (20 sources) Increased muscle tone; Translations: [Muscle tightness] 10-13-2022 Episodic Other ear and sense organ disorders (20 sources) Hearing loss; Translations: [Unspecified hearing loss, unspecified ear] 03-26-2017 Chronic Other ear and sense organ disorders (20 sources) Otalgia, right ear; Translations: [Otalgia, right] Resolved: 7 01-09-2017 Episodic Other gastrointestinal disorders (20 sources) Diarrhea; Translations: [Diarrhea] 03-26-2022 Episodic Other gastrointestinal disorders (20 sources) Occult blood in stools; Translations: [Other fecal abnormalities] 09-27-2024 Episodic Other gastrointestinal disorders (2 sources) Other fecal abnormalities; Translations: [Other fecal abnormalities] Onset: Episodic Other infections (20 sources) Local infection of wound; Translations: [Wound infection] Resolved: 7 01-09-2017 Episodic Other infections; including parasitic (20 sources) Late effects of other and unspecified infectious and parasitic diseases; 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 Chronic Other injuries and conditions due to external causes (20 sources) Injury of head; Translations: [Head injury] 09-13-2021 Episodic Other injuries and conditions due to external causes (20 sources) Injury of musculoskeletal system; Translations: [Musculoskeletal strain] Resolved: 3 02-03-2022 Episodic Other lower respiratory disease (20 sources) Cough; Translations: [Cough] Resolved: 7 01-09-2017 Episodic Comment on above: cxr r/o infectious/f luid process-supportive care, steroids advised if no improvement-lots of education on medications, viral illness vs bacterial, etc.-needs to have w/up with PCP Dr. Calle viral vs chronic lung dx process, it has been present over 3 months. offered steroids but declines for now. another provider put him on amoxicillin and doxy, pt and thought that was cough meds. Other lower respiratory disease (20 sources) Wheezing; Translations: [Wheeze] 03-26-2022 Episodic Other lower respiratory disease (1 source) Lower respiratory tract infection; Translations: [Unspecified acute lower respiratory infection] Episodic Other lower respiratory disease (20 sources) Dyspnea; Translations: [Dyspnea, unspecified] 06-30-2023 Episodic Other lower respiratory disease (8 sources) Shortness of breath; Translations: [Shortness of breath] Onset: 5 07-06-2023 Episodic Other lower respiratory disease (1 source) Other specified respiratory disorders; Translations: [Other specified respiratory disorders] Onset: 5 Episodic Other nervous system disorders (20 sources) Lesion of ulnar nerve, left upper limb; Translations: [Cubital tunnel syndrome on left] 11-20-2021 Chronic Other nervous system disorders (20 sources) Carpal tunnel syndrome; Translations: [Carpal tunnel syndrome, bilateral upper limbs] 03-03-2024 Chronic Other nervous system disorders (7 sources) Bilateral carpal tunnel syndrome; Translations: [Carpal tunnel syndrome, bilateral upper limbs] 03-03-2024 Chronic Other nervous system disorders (1 source) Carpal tunnel syndrome, bilateral upper limbs; Translations: [Carpal tunnel syndrome, bilateral upper limbs] Onset: 4 Chronic Other non-traumatic joint disorders (20 sources) Pain in elbow; Translations: [Elbow pain, left] 10-24-2019 Episodic Comment on above: left, after moving l arge piece of concrete Other non-traumatic joint disorders (20 sources) Shoulder pain; Translations: [Shoulder pain, left] Resolved: 3 01-30-2021 Episodic Other non-traumatic joint disorders (20 sources) Pain in left knee; Translations: [Acute pain of left knee] Resolved: 7 01-09-2017 Episodic Comment on above: after oral pred use Other non-traumatic joint disorders (20 sources) Pain in left shoulder; Translations: [Shoulder pain, left] Resolved: 3 06-12-2022 Episodic Other nutritional; endocrine; and metabolic disorders (20 sources) Body mass index 25-29 - overweight; Translations: [BMI 25.0-25.9,adult] Resolved: 9 03-26-2017 Chronic Comment on above: with regular use of inhaler for maintenance signif improvemnet clinically Other nutritional; endocrine; and metabolic disorders (20 sources) Body mass index 25-29 - overweight; Translations: [BMI 26.0-26.9,adult] Resolved: 2 01-16-2020 Episodic Comment on above: with regular use of inhaler for maintenance signif improvemnet clinically Other nutritional; endocrine; and metabolic disorders (20 sources) Overweight in adulthood with body mass index of 25 or more but less than 30; Translations: [BMI 26.0-26.9,adult] Resolved: 2 08-25-2019 Episodic Comment on above: with regular use of inhaler for maintenance signif improvemnet clinically Other skin disorders (20 sources) Skin lesion; Translations: [Skin lesion] 07-29-2018 Episodic Comment on above: sutures x 4 removed easily well approximates, no redness, warmth, swelling or exudatetolderated well MLONG, 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 Other skin disorders (1 source) Localized swelling, mass and lump, lower limb, bilateral; Translations: [Localized swelling, mass and lump, lower limb, bilateral] Onset: 5 Episodic Other upper respiratory disease (20 sources) Nasal discharge; Translations: [Post-nasal drainage] 03-26-2017 Episodic Other upper respiratory disease (20 sources) Nasal congestion; Translations: [Nasal congestion] Resolved: 0 04-26-2019 Episodic Other upper respiratory infections (20 sources) Sinusitis; Translations: [Sinusitis] 08-25-2019 Chronic Comment on above: ENT appt this sat Other upper respiratory infections (20 sources) Acute sinusitis, unspecified; Translations: [Acute sinusitis] 03-26-2017 Episodic Otitis media and related conditions (1 source) Acute suppurative otitis media with spontaneous rupture of ear drum; Translations: [Otitis media, unspecified, right ear] Episodic Pneumonia (20 sources) Pneumonia; Translations: [Pneumonia] Resolved: 5 05-19-2014 Episodic Comment on above: dx in 05/2019 Pulmonary heart disease (1 source) Septic pulmonary embolism without acute cor pulmonale; Translations: [Septic pulmonary embolism without acute cor pulmonale] Onset: 5 Episodic Residual codes; unclassified (20 sources) History of appendectomy; Translations: [Appendectomy] 03-26-2017 Episodic Comment on above: 58 yrs Residual codes; unclassified (18 sources) Requires diphtheria, tetanus and pertussis vaccination; Translations: [Need for Tdap vaccination (Renamed from Need for phjmgsaviv-pkbyfop-ymi tussis (Tdap) vaccine, adult/adolescent)] 07-29-2018 Episodic Residual codes; unclassified (20 sources) Non-smoker; Translations: [Nonsmoker] 05-02-2019 Episodic Skin and subcutaneous tissue infections (20 sources) Wound cellulitis; Translations: [Wound cellulitis] Resolved: 7 01-09-2017 Episodic Comment on above: after superficial de bridment and antibiotic Spondylosis; intervertebral disc disorders; other back problems (20 sources) Low back pain; Translations: [Backache] Resolved: 3 10-24-2019 Episodic Comment on above: allergy to asa can t antoinette tylenol adding Salon pas patch Superficial injury; contusion (20 sources) Contusion of scalp; Translations: [Contusion of scalp, initial encounter] 09-20-2021 Episodic Unclassified (20 sources) Blood chemistry abnormal; Translations: [D-dimer above reference range] Resolved: 7 01-09-2017 Episodic Comment on above: pt refused stool car ds or cologard for age no need to d o psa refused rectal exam or referal to urology Unclassified (20 sources) Needs influenza immunization; Translations: [History of appendectomy] 01-09-2017 Episodic Comment on above: 58 yrs Unclassified (20 sources) Wound infection Unclassified (20 sources) Unclassified (20 sources) Nonsmoker; Translations: [Non-smoker] 03-26-2017 Unclassified (20 sources) BMI 25.0-25.9,adult Unclassified (20 sources) Post-nasal drainage Unclassified (20 sources) BPH without Urin. Obst (600.00) Unclassified (20 sources) Annual Medicare Physical (V70.0) Unclassified (20 sources) Acute pain of left knee Unclassified (20 sources) Otalgia, right Unclassified (20 sources) Annual Medicare Physical WITH abnormal findings (Renamed from Encounter for general adult medical examination with abnormal findings); Translations: [Patient encounter status] 01-02-2017 Unclassified (20 sources) Encounter for screening for malignant neoplasm of colon (Renamed from Special screening for malignant neoplasms, colon) Unclassified (20 sources) Encounter for screening for malignant neoplasm of prostate (Renamed from Screening for prostate cancer) Unclassified (20 sources) BMI 26.0-26.9,adult Unclassified (20 sources) BMI 27.0-27.9,adult Unclassified (20 sources) Non-smoker Unclassified (20 sources) Left arm pain Past or Other Problems Problem Classification Problem Date Documented Date Episodic/Chronic Asthma (20 sources) Asthma Chronic obstructive pulmonary disease and bronchiectasis (20 sources) Chronic obstructive pulmonary disease and bronchiectasis Headache; including migraine (20 sources) Headache; including migraine Nonspecific chest pain (20 sources) Chest pain; Translations: [Chest pain, unspecified] Onset: 04-09-2024 07-06-2023 Episodic Other connective tissue disease (1 source) Lateral epicondylitis, left elbow; Translations: [Lateral epicondylitis, left elbow] Onset: 10-20-2024 Episodic Other connective tissue disease (12 sources) Lateral epicondylitis of left humerus; Translations: [Lateral epicondylitis of left elbow] 10-24-2019 Other ear and sense organ disorders (18 sources) Otalgia of right ear; Translations: [Otalgia, right] Resolved: 01-09-2017 03-05-2018 Other nervous system disorders (2 sources) Anesthesia of skin; Translations: [Anesthesia of skin] Onset: 05-10-2024 Episodic Other nervous system disorders (1 source) Paresthesia of skin; Translations: [Paresthesia of skin] Onset: 06-09-2024 Episodic Other non-traumatic joint disorders (20 sources) Knee pain; Translations: [Acute pain of left knee] Resolved: 01-09-2017 01-09-2017 Episodic Comment on above: after oral pred use Other non-traumatic joint disorders (1 source) Pain in left elbow; Translations: [Pain in left elbow] Onset: 09-07-2024 Episodic Residual codes; unclassified (1 source) Chills (without fever); Translations: [Chills (without fever)] Onset: 05-20-2024 Episodic Sprains and strains (20 sources) Strain of neck muscle; Translations: [Strain of muscle, fascia and tendon at neck level, initial encounter] Onset: 10-20-2024 02-03-2022 Episodic Syncope (20 sources) Syncope and collapse; Translations: [Syncope and collapse] Onset: 04-22-2024 09-13-2021 Episodic Unclassified (20 sources) Need for Tdap vaccination (Renamed from Need for ryuhbgsnbo-jmciawf-zo rtussis (Tdap) vaccine, adult/adolescent) Unclassified (20 sources) Tubes in ears 2006 03-26-2017 Unclassified (20 sources) Screening status; Translations: [Encounter for screening for malignant neoplasm of prostate (Renamed from Screening for prostate cancer)] 03-26-2017 Comment on above: for age no need to d o psa refused rectal exam or referal to urology pt refused stool car ds or cologard Unclassified (20 sources) Abdominal Pain,LLQ (789.04) Unclassified (20 sources) Non-smoker; Translations: [Nonsmoker] 03-26-2017 Unclassified (20 sources) Patient encounter status; Translations: [Annual Medicare Physical WITH abnormal findings (Renamed from Encounter for general adult medical examination with abnormal findings)] 01-02-2017 Unclassified (20 sources) Elbow pain, left Unclassified (20 sources) Lateral epicondylitis of left elbow Unclassified (20 sources) Elevated d-dimer Unclassified (18 sources) Bronchitis,Acute (466.0) Unclassified (17 sources) Shoulder pain, left Unclassified (20 sources) CVA (cerebral vascular accident) Unclassified (20 sources) Unspecified Diagnosis 05-30-2022 Results Test Name Value Interpretation Reference Range Facility Carcinoembryonic Antigenon 1 03-27-2024 CEA 1.4 ng/mL Normal 0.0-4.7 [facility] Comment on above: Result Comment: Nons mokers <3.9 Smokers <5.6[employer] Electrochemiluminescence Immunoassay(ECLIA)Values obtained with different assay methods or kitscannot be used interchangeably. Results cannot beinterpreted as absolute evidence of the presence orabsence of malignant disease.Performed at: - [facility] [id number] [place], [place] [id number] Director: Terrence Samson PhD, Phone: [phone] Performed By: #### L 3107.2300 ####[facility] [address] [place], [address] MR/PAT.ANEon 01-24-2025 MR/PAT.ANE Normal [facility] CBC-Complete Blood Cnt No Di ffon 01-23-2025 Erythrocyte distribution width (RBC) [Ratio] 21.3 % High 11.6-14.6 [facility] Comment on above: Performed By: #### L 100.0500, L501.5200, L300.3900, L300.4310 ####[facility] [id number] [place], [address] Hematocrit (Bld) [Volume fraction] 32.1 % Low 40-54 [facility] Comment on above: Performed By: #### L 100.0500, L501.5200, L300.3900, L300.4310 ####[facility] [id number] [place], [address] Hemoglobin (Bld) [Mass/Vol] 9.6 g/dL Low 13.0-16.5 [facility] Comment on above: Performed By: #### L 100.0500, L501.5200, L300.3900, L300.4310 ####[facility] [address] [place], [address] MCH (RBC) [Entitic mass] 22.7 pg Low 27.0-32.0 [facility] Comment on above: Performed By: #### L 100.0500, [id number], L300.3900, L300.4310 ####[facility] [address] [place], [address] MCHC (RBC) [Mass/Vol] 29.9 g/dL Low 32-36 [facility] Comment on above: Performed By: #### L 100.0500, L501.5200, L300.3900, L300.4310 ####[facility] [address] [place], [place], [address] MCV (RBC) [Entitic vol] 76.1 fL Low 80-94 [facility] Comment on above: Performed By: #### L 100.0500, L501.5200, L300.3900, L300.4310 ####[facility] [address] [place], [address] Platelet mean volume (Bld) [Entitic vol] 10.0 fL Normal 6.2-12.0 [facility] Comment on above: Performed By: #### L 100.0500, L501.5200, L300.3900, L300.4310 ####[facility] [address] [place], [address] Platelets (Bld) [#/Vol] 382 10*3/uL Normal 150-450 [facility] Comment on above: Performed By: #### L 100.0500, L501.5200, L300.3900, L300.4310 ####[facility] [address] [place], [address] RBC (Bld) [#/Vol] 4.22 10*6/uL Low 4.6-6.[address] [facility] Comment on above: Performed By: #### L 100.0500, L501.5200, L300.3900, L300.4310 ####[facility] [address] [place], [address] RDW SD 58.4 fl High 35.1-43.9 [facility] Comment on above: Performed By: #### L 100.0500, L501.5200, L300.3900, L300.4310 ####[facility] [address] [place], [address] WBC (Bld) [#/Vol] 8.2 10*3/uL Normal 4.4-11.0 [facility] Comment on above: Performed By: #### L 100.0500, L501.5200, L300.3900, L300.4310 ####[facility] [address] [place], [address] Magnesiumon 01-23-2025 Magnesium [Mass/Vol] 2.2 mg/dL Normal 1.5-2.2 [facility] Comment on above: Performed By: #### L 100.0500, L501.5200, L300.3900, L300.4310 ####[facility] [address] [place], [address] Partial Thromboplast Timeon 01-23-2025 aPTT Coag (Bld) [Time] 28.0 s Normal 24.1-36.2 [facility] Comment on above: Performed By: #### L 100.0500, L501.5200, L300.3900, L300.4310 ####[facility] [address] [place], [address] Prothrombin Time w/INRon INR Coag (PPP) [Relative time] 0.9 {INR} Normal [facility] Comment on above: Performed By: #### L 100.0500, L501.5200, L300.3900, L300.4310 ####[facility] [address] [place], [address] PT Coag (PPP) [Time] 12.8 s Normal 11.7-14.9 [facility] Comment on above: Performed By: #### L 100.0500, L501.5200, L300.3900, L300.4310 ####[facility] [address] [place], [place], [address] Surgery Visit Reporton 01-17 Surgery Visit Report Normal [facility] Abdomen/Pelvis WITH Contrast on 01-12-2025 Abdomen/Pelvis WITH Contrast Normal [facility] Carotid Duplex Ultrasoundon 01-12-2025 Carotid Duplex Ultrasound Normal [facility] Colonoscopy Reporton 025 Colonoscopy Report Normal [facility] EGD Reporton 01-11-2025 EGD Report Normal [facility] Immunohistochemical Stainson 01-11-2025 Immunohistochemical Stains Normal [facility] Comment on above: Performed By: #### P IMHI ####[facility] [address] [place], [place], [address] MR/OP.PROVATon 01-11-2025 MR/OP.PROVAT Normal [facility] MR/OP.PROVAT Normal [facility] MR/POSTOP.ANEon 01-11-2025 MR/POSTOP.ANE Normal [facility] MR/KYOMTFOZ9gl 01-11-2025 MR/POSTOPAN2 Normal [facility] MR/PAT.ANEon 01-10-2025 MR/PAT.ANE Normal [facility] Culture, Blood (WB)on 2024 CUB No growth in 5 days. Normal [facility] Comment on above: Performed By: #### B TS, M200.1000, L501.6710, L101.9900 ####[facility] [address] [place], [address] HH, Hemoglobin AND Hematocri ton 01-02-2025 Hematocrit (Bld) [Volume fraction] 32.3 % Low 40-54 [facility] Comment on above: Performed By: #### L 100.0600, M100.7900 ####[facility] [address] [place], [address] Hemoglobin (Bld) [Mass/Vol] 9.6 g/dL Low 13.0-16.5 [facility] Comment on above: Performed By: #### L 100.0600, M100.7900 ####[facility] [address] [place], [place], [address] Hematocrit Auto (Bld) [Volum e fraction]Ordered By: J Luis Artem on 01-02-2025 Hematocrit (Bld) [Volume fraction] 32.3 % Low 40-54 [facility] Hemoglobin measurementOrdere d By: J Luis Artem on 01-02-2025 Hemoglobin (Bld) [Mass/Vol] 9.6 g/dL Low 13.0-16.5 [facility] Stool Occult Blood iFOBon STOB Positive Normal [facility] Comment on above: Performed By: #### L 100.0600, M100.7900 ####[facility] [address] [place], [place], [address] Stool gastrointestinal hemog lobin detection by immunologic methodOrdered By: J Luis Mcgill on 01-02-2025 Lower GI hemoglobin IA Ql (Stl) Positive Abnormal [facility] BRCon 12-28-2024 RC Normal [facility] Comment on above: Result Comment: [id number] OP RC [id number] OP RC ISSUED 12/29/24 0911 Performed By: #### B RC ####[facility] [address] [place], [place], [address] Result Comment: [id number] OP RC TRANSFUSED 12/29/24 [id number] OP RC TRANSFUSED 12/29/24 0911 Blood cultureOrdered By: J Luis Mcgill on 12-28-2024 Bacteria identified Cx Nom (Bld) No growth in 5 days. [facility] CRPon 12-28-2024 C-REACTIVE PROT 8.47 mg/L High 0.0-3.0 [facility] Comment on above: Performed By: #### B TS, M200.1000, L501.6710, L101.9900 ####[facility] [address] [place], [place], [address] Erythrocyte Sed Rateon 12-28 SED RATE 42 mm/hr High 0-20 [facility] Comment on above: Performed By: #### B TS, M200.1000, L501.6710, L101.9900 ####[facility] [address] [place], [address] Erythrocyte sedimentation ra teOrdered By: J Luis Mcgill on 12-28-2024 ESR (Bld) [Velocity] 42 mm/h High 0-20 [facility] Serum or plasma C reactive p rotein measurement (mass/volume)Ordered By: J Luis Mcgill on 12-28-2024 CRP [Mass/Vol] 8.47 mg/L High 0.0-3.0 [facility] Type AND Screenon 12-28-2024 ABO and Rh group Nom (Bld) Blood group O Rh(D) positive Normal [facility] Comment on above: Order Comment: A Performed By: #### B TS, M200.1000, L501.6710, L101.9900 ####[facility] [address] [place], [address] Venous Duplex US - Hayes Extre mon 12-28-2024 Venous Duplex US - Hayes Extrem Normal [facility] Venous duplex ultrasound rep ortOrdered By: Danny Lucas on 12-28-2024 US Vein [facility] [address] [place] [place] [address] Venous Duplex US - Hayes Extrem 12/28/24 1047 MR#: [id number] Acct: [id number] Name: OJHNNIE QUIJANO Rep #:[id number] : [id number] 84 From: Danny Lucas MD Attending Dr: Dr. J Luis Mcgill MD Status: REG CLI Ordering Dr: J Luis Mcgill MD Date: 11/14 Location: [facility] Sex: M C Admitted: Reason For Study Reason For Study: BLE Swelling RIGHT LEFT GSV is normal. GSV is normal. CFV is compressible, spontaneous, phasic, competent CFV is compressible, spontaneous, phasic, competent, and demonstrates normal augmentation. and demonstrates normal augmentation. FV is compressible, spontaneous, phasic, competent FV is compressible, spontaneous, phasic, competent and demonstrates normal augmentation. and demonstrates normal augmentation. POP V is compressible, spontaneous, phasic, competent POP V is compressible, spontaneous, phasic, competent and demonstrates normal augmentation. and demonstrates normal augmentation. T/P Trunk is compressible. T/P Trunk is compressible. PTV is compressible. PTV is compressible. RT PerV is compressible. LT PerV is compressible. Procedure This is a venous duplex using B-mode, color flow and spectral Doppler. Exam performed in department. The exam was diagnostic. A preliminary report was called and/or faxed to DR. CHARLES OFFICE. VL/Venous Duplex US - Hayes Extrem Interpretation Summary Deep veins of the lower extremities are bilaterally patent and compressible segmentally. There is no evidence of deep vein thrombosis on either side. Valvular competence appears intact within the proximal deep venous systems bilaterally. The great saphenous veins appear bilaterally patent and compressible segmentally. Ordering Physician: J Luis Mcgill Chi Referring Physician: J Luis Mcgill Chi Performed By: Matt Napoles, T 12/28/241999 Date _ Danny Lucas MD CC: Dr. J Luis Mcgill MD ~ Date Dictated: 12/28/24 1047 Date Transcribed: 12/28/241999 [employer] Supervisor: Signed [facility] Other Absolute lymphocyte countOrd ered By: J Luis Mcgill on 12-27-2024 Lymphocytes Auto (Unsp spec) [#/Vol] 0.96 10*3/uL 0.83-4.51 [facility] Absolute neutrophil countOrd ered By: J Luis Mcgill on 10-07-2025 Neutrophils (Bld) [#/Vol] 5.1 10*3/uL 2.0-7.7 [facility] Anion gap in Serum or Plasma Ordered By: J Luis Mcgill on 12-27-2024 Anion gap [Moles/Vol] 11 mmol/L 08-04 [facility] Automated lymphocyte count a s percentage of total leukocytesOrdered By: J Luis Artem on 12-27-2024 Lymphocytes/100 WBC Auto (Unsp spec) 12.7 % Low [facility] BUN/creatinine ratioOrdered By: J Luis Mcgill on 12-27-2024 Urea nitrogen/Creatinine [Mass ratio] 11.2 mg/mg 01-09 [facility] Basophil percentageOrdered B y: J Luis Artem on 12-27-2024 Basophils/100 WBC (Bld) 0.7 % 0- [facility] Bilirubin, totalOrdered By: J Luis Mcgill on 12-27-2024 Bilirubin [Mass/Vol] 0.27 mg/dL 0.00-1.30 [facility] CBC W/Diff, Automatedon Absolute Lymph 0.96 X10 3/uL Normal 0.83-4.51 [facility] Comment on above: Performed By: #### L 500.4050, L300.8000, L501.9520, L100.0100, M100.678 ####[facility] [address] [place], [address] Absolute Neut 5.1 X10 3/uL Normal 2.0-7.7 [facility] Comment on above: Performed By: #### L 500.4050, L300.8000, L501.9520, L100.0100, M100.678 ####[facility] [address] [place], [address] Basophils/100 WBC (Bld) 0.7 % Normal 0- [facility] Comment on above: Performed By: #### L 500.4050, L300.8000, L501.9520, L100.0100, M100.678 ####[facility] [address] [place], [address] Eosinophils/100 WBC (Bld) 4.6 % Normal 0-5 [facility] Comment on above: Performed By: #### L 500.4050, L300.8000, L501.9520, L100.0100, M100.678 ####[facility] [address] [place], [address] Erythrocyte distribution width (RBC) [Ratio] 18.1 % High 11.6-14.6 [facility] Comment on above: Performed By: #### L 500.4050, L300.8000, L501.9520, L100.0100, M100.678 ####[facility] [address] [place], [address] Hematocrit (Bld) [Volume fraction] 24.4 % Low 40-54 [facility] Comment on above: Performed By: #### L 500.4050, L300.8000, L501.9520, L100.0100, M100.678 ####[facility] [address] [place], [address] Hemoglobin (Bld) [Mass/Vol] 6.9 g/dL Low 13.0-16.5 [facility] Comment on above: Performed By: #### L 500.4050, L300.8000, L501.9520, L100.0100, M100.678 ####[facility] [address] [place], [address] IG% 0.700 Normal 0.0-0.9 [facility] Comment on above: Result Comment: IG% - Immature Granulocytes (promyelocytes, myelocytes andmetamyelocytes) > 1% indicates that a LEFT SHIFT is Present. Performed By: #### L 500.4050, L300.8000, L501.9520, L100.0100, M100.678 ####[facility] [address] [place], [address] Lymphocytes/100 WBC (Bld) 12.7 % Low 19-41 [facility] Comment on above: Performed By: #### L 500.4050, L300.8000, L501.9520, L100.0100, M100.678 ####[facility] [address] [place], [address] MCH (RBC) [Entitic mass] 20.1 pg Low 27.0-32.0 [facility] Comment on above: Performed By: #### L 500.4050, L300.8000, L501.9520, L100.0100, M100.678 ####[facility] [address] [place], [address] MCHC (RBC) [Mass/Vol] 28.3 g/dL Low 32-36 [facility] Comment on above: Performed By: #### L 500.4050, L300.8000, L501.9520, L100.0100, M100.678 ####[facility] [address] [place], [address] MCV (RBC) [Entitic vol] 70.9 fL Low 80-94 [facility] Comment on above: Performed By: #### L 500.4050, L300.8000, L501.9520, L100.0100, M100.678 ####[facility] [address] [place], [address] Monocytes/100 WBC (Bld) 13.6 % High 0-10 [facility] Comment on above: Performed By: #### L 500.4050, L300.8000, L501.9520, L100.0100, M100.678 ####[facility] [address] [place], [address] Neutrophils/100 WBC (Bld) 67.7 % Normal 47-70 [facility] Comment on above: Performed By: #### L 500.4050, L300.8000, L501.9520, L100.0100, M100.678 ####[facility] [address] [place], [address] Nucleated RBC (Bld) [#/Vol] 0 10*3/uL Normal 0-5 [facility] Comment on above: Performed By: #### L 500.4050, L300.8000, L501.9520, L100.0100, M100.678 ####[facility] [address] [place], [address] Platelet mean volume (Bld) [Entitic vol] 9.5 fL Normal 6.2-12.0 [facility] Comment on above: Performed By: #### L 500.4050, L300.8000, L501.9520, L100.0100, M100.678 ####[facility] [address] [place], [address] Platelets (Bld) [#/Vol] 429 10*3/uL Normal 150-450 [facility] Comment on above: Performed By: #### L 500.4050, L300.8000, L501.9520, L100.0100, M100.678 ####[facility] [address] [place], [address] RBC (Bld) [#/Vol] 3.44 10*6/uL Low 4.6-6.[address] [facility] Comment on above: Performed By: #### L 500.4050, L300.8000, L501.9520, L100.0100, M100.678 ####[facility] [address] [place], [address] RDW SD 45.6 fl High 35.1-43.9 [facility] Comment on above: Performed By: #### L 500.4050, L300.8000, L501.9520, L100.0100, M100.678 ####[facility] [address] [place], [address] WBC (Bld) [#/Vol] 7.6 10*3/uL Normal 4.4-11.0 [facility] Comment on above: Performed By: #### L 500.4050, L300.8000, L501.9520, L100.0100, M100.678 ####[facility] [address] [place], [address] CTA Chest W/WO Contraston CTA Chest W/WO Contrast Normal [facility] Carbon dioxide, total [Moles /volume] in Central venous bloodOrdered By: J Luis Mcgill on 12-27-2024 CO2 [Moles/Vol] 21.4 mmol/L 21.0-32.0 [facility] Chest PA and Lateralon 12-27 Chest PA and Lateral Normal [facility] Chloride assayOrdered By: Wan Mcgill on 12-27-2024 Chloride [Moles/Vol] 105 mmol/L 98-108 [facility] Comprehensive Metabolic Prof ilon 12-27-2024 Albumin [Mass/Vol] 3.8 g/dL Normal 3.4-4.8 [facility] Comment on above: Performed By: #### L 500.4050, L300.8000, L501.9520, L100.0100, M100.678 ####[facility] [address] [place], [address] Albumin/Globulin [Mass ratio] 1.5 {ratio} Normal 0.9-2.4 [facility] Comment on above: Performed By: #### L 500.4050, L300.8000, L501.9520, L100.0100, M100.678 ####[facility] [address] [place], [address] ALK PHOS 140 U/L High 40-129 [facility] Comment on above: Performed By: #### L 500.4050, L300.8000, L501.9520, L100.0100, M100.678 ####[facility] [address] [place], [address] ALT [Catalytic activity/Vol] 10 U/L Normal <=46 [facility] Comment on above: Performed By: #### L 500.4050, L300.8000, L501.9520, L100.0100, M100.678 ####[facility] [address] [place], [address] AST [Catalytic activity/Vol] 20 U/L Normal <=37 [facility] Comment on above: Performed By: #### L 500.4050, L300.8000, L501.9520, L100.0100, M100.678 ####[facility] [address] [place], [address] Bilirubin [Mass/Vol] 0.27 mg/dL Normal 0.00-1.30 [facility] Comment on above: Performed By: #### L 500.4050, L300.8000, L501.9520, L100.0100, M100.678 ####[facility] [address] [place], [address] BUN/CRE 11.2 RATIO Normal 10-20 [facility] Comment on above: Performed By: #### L 500.4050, L300.8000, L501.9520, L100.0100, M100.678 ####[facility] [address] [place], [address] Calcium [Mass/Vol] 8.9 mg/dL Normal 7.6-11.0 [facility] Comment on above: Performed By: #### L 500.4050, L300.8000, L501.9520, L100.0100, M100.678 ####[facility] [address] [place], [address] Chloride [Moles/Vol] 105 mmol/L Normal 98-108 [facility] Comment on above: Performed By: #### L 500.4050, L300.8000, L501.9520, L100.0100, M100.678 ####[facility] [address] [place], [address] CO2 [Moles/Vol] 21.4 mmol/L Normal 21.0-32.0 [facility] Comment on above: Performed By: #### L 500.4050, L300.8000, L501.9520, L100.0100, M100.678 ####[facility] [address] [place], [address] Creatinine [Mass/Vol] 0.97 mg/dL Normal 0.70-1.20 [facility] Comment on above: Performed By: #### L 500.4050, L300.8000, L501.9520, L100.0100, M100.678 ####[facility] [address] [place], [address] GAP 11 Normal 5-15 [facility] Comment on above: Performed By: #### L 500.4050, L300.8000, L501.9520, L100.0100, M100.678 ####[facility] [address] [place], [address] GFR/1.73 sq M.predicted among non-blacks MDRD (S/P/Bld) [Vol rate/Area] 76 mL/min/{1.73_m2} Normal >60 [facility] Comment on above: Result Comment: mL/m in/1.73m2 CKD-EPI Creatinine Equation (2020) Performed By: #### L 500.4050, L300.8000, L501.9520, L100.0100, M100.678 ####[facility] [address] [place], [address] Globulin (S) [Mass/Vol] 2.5 g/dL Normal 2.2-4.2 [facility] Comment on above: Performed By: #### L 500.4050, L300.8000, L501.9520, L100.0100, M100.678 ####[facility] [address] [place], [address] Glucose [Mass/Vol] 108 mg/dL High 70-99 [facility] Comment on above: Performed By: #### L 500.4050, L300.8000, L501.9520, L100.0100, M100.678 ####[facility] [address] [place], [address] Potassium [Moles/Vol] 3.6 mmol/L Normal 3.3-5.1 [facility] Comment on above: Performed By: #### L 500.4050, L300.8000, L501.9520, L100.0100, M100.678 ####[facility] [address] [place], [address] Sodium [Moles/Vol] 138 mmol/L Normal 133-145 [facility] Comment on above: Performed By: #### L 500.4050, L300.8000, L501.9520, L100.0100, M100.678 ####[facility] [address] [place], [address] T PROT 6.2 g/dL Normal 5.9-8.4 [facility] Comment on above: Performed By: #### L 500.4050, L300.8000, L501.9520, L100.0100, M100.678 ####[facility] [address] [place], [address] Urea nitrogen [Mass/Vol] 11 mg/dL Normal 4-19 [facility] Comment on above: Performed By: #### L 500.4050, L300.8000, L501.9520, L100.0100, M100.678 ####[facility] [address] [place], [place], [address] D-Dimer Quantitative (DVT/PE )on 12-27-2024 D-DIMER QUANT 2.19 FEU/ug/m Invalid Interpretation Code 0.27-0.49 [facility] Comment on above: Order Comment: CRITI RANDI VALUE CALLED TO CORONA PEÑA12/27/24 1600 Tawana Oliver.RESULTS READ BACK BY SAME. Result Comment: D-Di chester ELEVATED (>0.49): Additional studies and clinicalassessments are indicated to conclude diagnosis of:Deep Vein Thrombosis (DVT) or Pulmonary Embolism (PE) Performed By: #### L 500.4050, L300.8000, L501.9520, L100.0100, M100.678 ####[facility] [address] [place], [place], [address] Eosinophil percentageOrdered By: J Luis Mcgill on 12-27-2024 Eosinophils/100 WBC (Bld) 4.6 % 0-5 [facility] Erythrocyte distribution wid th ratioOrdered By: J Luis Mcgill on 12-27-2024 Erythrocyte distribution width (RBC) [Ratio] 18.1 % High 11.6-14.6 [facility] Erythrocyte distribution wid th standard deviationOrdered By: J Luis Mcgill on 12-27-2024 Erythrocyte distribution width (RBC) [Ratio] 45.6 fl High 35.1-43.9 [facility] Glomerular filtration rate ( GFR) estimation/1.73 sq m using serum, plasma, or whole bOrdered By: J Luis Mcgill on 12-27-2024 GFR/1.73 sq M.predicted among non-blacks MDRD (S/P/Bld) [Vol rate/Area] 76 mL/min/{1.73_m2} >60 [facility] Comment on above: mL/min/1.73m2 CKD-EP I Creatinine Equation (2020) Hematocrit Auto (Bld) [Volum e fraction]Ordered By: J Luis Mcgill on 12-27-2024 Hematocrit (Bld) [Volume fraction] 24.4 % Low 40-54 [facility] Hemoglobin measurementOrdere d By: J Luis Mcgill on 12-27-2024 Hemoglobin (Bld) [Mass/Vol] 6.9 g/dL Low 13.0-16.5 [facility] Immature granulocytes/100 WB C Auto (Bld)Ordered By: J Luis Mcgill on 12-27-2024 Immature granulocytes/100 WBC (Bld) 0.700 % 0.0-0.9 [facility] Comment on above: IG% - Immature Granu locytes (promyelocytes, myelocytes and metamyelocytes) > 1% indicates that a LEFT SHIFT is Present. Influenza virus A and B and SARS-CoV-2 (COVID-19) and Respiratory syncytial virus RNAOrdered By: J Luis Mcgill on 12-27-2024 SARS-CoV-2 (COVID-19) RNA JOVANA+probe Ql (Unsp spec) [facility] Laboratory - Chemistry and C hemistry - challengeOrdered By: J Luis Mcgill on 12-27-2024 AST [Catalytic activity/Vol] 20 U/L <38 [facility] M100.678on 12-27-2024 M100.678 Pending SARS-CoV-2 (COVID 19) Negative INFLUENZA A Negative INFLUENZA B Negative RSV PCR Negative Normal [facility] Comment on above: Performed By: #### L 500.4050, L300.8000, L501.9520, L100.0100, M100.678 ####[facility] [address] [place], [address] MCV (mean corpuscular volume ) determinationOrdered By: J Luis Mcgill on 12-27-2024 MCV (RBC) [Entitic vol] 70.9 fL Low 80-94 [facility] Mean corpuscular hemoglobin (MCH) determinationOrdered By: J Luis Mcgill on 12-27-2024 MCH (RBC) [Entitic mass] 20.1 pg Low 27.0-32.0 [facility] Mean corpuscular hemoglobin concentration (MCHC) determinationOrdered By: J Luis Mcgill on 12-27-2024 MCHC (RBC) [Mass/Vol] 28.3 g/dL Low 32-36 [facility] Mean platelet volume determi nationOrdered By: J Luis Mcgill on 12-27-2024 Platelet mean volume (Bld) [Entitic vol] 9.5 fL 6.2-12.0 [facility] Monocyte percentageOrdered B y: J Luis Mcgill on 12-27-2024 Monocytes/100 WBC (Bld) 13.6 % High 0-10 [facility] Neutrophil percentageOrdered By: J Luis Mcgill on 12-27-2024 Neutrophils/100 WBC (Bld) 67.7 % 47-70 [facility] Nucleated red blood cell per centageOrdered By: J Luis Mcgill on 12-27-2024 Nucleated RBC/100 WBC (Bld) [Ratio] 0 % 0-5 [facility] Platelet countOrdered By: Wan Mcgill on 12-27-2024 Platelets (Bld) [#/Vol] 429 10*3/uL 150-450 [facility] Potassium measurement (mass/ volume)Ordered By: J Luis Mcgill on 12-27-2024 Potassium (Unsp spec) [Mass/Vol] 3.6 mmol/L 3.3-5.1 [facility] RBC Auto (Bld) [#/Vol]Ordere d By: J Luis Mcgill on 12-27-2024 RBC (Bld) [#/Vol] 3.44 10*6/uL Low 4.6-6.[address] [facility] Serum creatinine measurement (mass/volume)Ordered By: J Luis Mcgill on 12-27-2024 Creatinine [Mass/Vol] 0.97 mg/dL 0.70-1.20 [facility] Serum globulin measurementOr dered By: J Luis Mcgill on 12-27-2024 Globulin (S) [Mass/Vol] 2.5 g/dL 2.2-4.2 [facility] Serum glucose measurement (m ass/volume)Ordered By: J Luis Mcgill on 12-27-2024 Glucose [Mass/Vol] 108 mg/dL High 70-99 [facility] Serum or plasma alanine bryan otransferase (ALT) measurementOrdered By: J Luis Mcgill on 12-27-2024 ALT [Catalytic activity/Vol] 10 U/L <47 [facility] Serum or plasma albumin mike urement (mass/volume)Ordered By: J Luis Mcgill on 12-27-2024 Albumin [Mass/Vol] 3.8 g/dL 3.4-4.8 [facility] Serum or plasma albumin/glob ulin mass ratioOrdered By: J Luis Mcgill on 12-27-2024 Albumin/Globulin [Mass ratio] 1.5 {ratio} 0.9-2.4 [facility] Serum or plasma alkaline jean-paul sphatase measurementOrdered By: J Luis Mcgill on 12-27-2024 ALP [Catalytic activity/Vol] 140 U/L High 40-129 [facility] Serum or plasma calcium mike urement (mass/volume)Ordered By: J Luis Mcgill on 12-27-2024 Calcium [Mass/Vol] 8.9 mg/dL 7.6-11.0 [facility] Serum or plasma urea nitroge n measurement (mass/volume)Ordered By: J Luis Mcgill on 12-27-2024 Urea nitrogen [Mass/Vol] 11 mg/dL 4-19 [facility] Sodium levelOrdered By: J Luis Mcgill on 12-27-2024 Sodium [Moles/Vol] 138 mmol/L 133-145 [facility] TSH DL <= 0.005 mIU/L QnOrde red By: J Luis Mcgill on 12-27-2024 TSH Qn 1.390 uIU/mL 0.300-4.200 [facility] Thyroid Stim Hormone (TSH)on 12-27-2024 TSH 1.390 uIU/mL Normal 0.300-4.200 [facility] Comment on above: Performed By: #### L 500.4050, L300.8000, L501.9520, L100.0100, M100.678 ####[facility] [address] [place], [place], [id number] Total proteinOrdered By: J Luis Mcgill on 12-27-2024 Protein [Mass/Vol] 6.2 g/dL 5.9-8.4 [facility] White blood cell (WBC) count Ordered By: J Luis Mcgill on 12-27-2024 WBC (Bld) [#/Vol] 7.6 10*3/uL 4.4-11.0 [facility] Influenza virus A and B and SARS-CoV-2 (COVID-19) and Respiratory syncytial virus RNAOrdered By: J Luis Mcgill on 12-07-2024 SARS-CoV-2 (COVID-19) RNA JOVANA+probe Ql (Unsp spec) [facility] M100.678on 12-07-2024 M100.678 Pending SARS-CoV-2 (COVID 19) Negative INFLUENZA A Negative INFLUENZA B Negative RSV PCR Negative Normal [facility] Comment on above: Performed By: #### M 100.678 ####[facility] [address] [place], [address] Orthopedic Visit Reporton Orthopedic Visit Report Normal [facility] Absolute lymphocyte countOrd ered By: Leandra Diaz on 09-27-2024 Lymphocytes Auto (Unsp spec) [#/Vol] 1.45 10*3/uL 0.83-4.51 [facility] Absolute neutrophil countOrd ered By: Leandra Diaz on 09-27-2024 Neutrophils (Bld) [#/Vol] 7.0 10*3/uL 2.0-7.7 [facility] Automated lymphocyte count a s percentage of total leukocytesOrdered By: Leandra Diaz on 09-27-2024 Lymphocytes/100 WBC Auto (Unsp spec) 14.0 % Low 19-41 [facility] Basophil percentageOrdered B y: Leandra Diaz on 09-27-2024 Basophils/100 WBC (Bld) 0.9 % 0-1 [facility] CBC W/Diff, Automatedon Absolute Lymph 1.45 X10 3/uL Normal 0.83-4.51 [facility] Comment on above: Performed By: #### L 100.0100 ####[facility] [address] [place], [address] Absolute Neut 7.0 X10 3/uL Normal 2.0-7.7 [facility] Comment on above: Performed By: #### L 100.0100 ####[facility] [address] [place], [address] Basophils/100 WBC (Bld) 0.9 % Normal 0-1 [facility] Comment on above: Performed By: #### L 100.0100 ####[facility] [address] [place], [address] Eosinophils/100 WBC (Bld) 6.3 % High 0-5 [facility] Comment on above: Performed By: #### L 100.0100 ####[facility] [address] [place], [address] Erythrocyte distribution width (RBC) [Ratio] 16.5 % High 11.6-14.6 [facility] Comment on above: Performed By: #### L 100.0100 ####[facility] [address] [place], [address] Hematocrit (Bld) [Volume fraction] 29.5 % Low 40-54 [facility] Comment on above: Performed By: #### L 100.0100 ####[facility] [address] [place], [address] Hemoglobin (Bld) [Mass/Vol] 8.5 g/dL Low 13.0-16.5 [facility] Comment on above: Performed By: #### L 100.0100 ####[facility] [address] [place], [address] IG% 0.500 Normal 0.0-0.9 [facility] Comment on above: Result Comment: IG% - Immature Granulocytes (promyelocytes, myelocytes andmetamyelocytes) > 1% indicates that a LEFT SHIFT is Present. Performed By: #### L 100.0100 ####[facility] [address] [place], [address] Lymphocytes/100 WBC (Bld) 14.0 % Low 19-41 [facility] Comment on above: Performed By: #### L 100.0100 ####[facility] [address] [place], [address] MCH (RBC) [Entitic mass] 22.2 pg Low 27.0-32.0 [facility] Comment on above: Performed By: #### L 100.0100 ####[facility] [address] [place], [address] MCHC (RBC) [Mass/Vol] 28.8 g/dL Low 32-36 [facility] Comment on above: Performed By: #### L 100.0100 ####[facility] [address] [place], [address] MCV (RBC) [Entitic vol] 77.0 fL Low 80-94 [facility] Comment on above: Performed By: #### L 100.0100 ####[facility] [address] [place], [address] Monocytes/100 WBC (Bld) 10.3 % High 0-10 [facility] Comment on above: Performed By: #### L 100.0100 ####[facility] [address] [place], [address] Neutrophils/100 WBC (Bld) 68.0 % Normal 47-70 [facility] Comment on above: Performed By: #### L 100.0100 ####[facility] [address] [place], [address] Nucleated RBC (Bld) [#/Vol] 0 10*3/uL Normal 0-5 [facility] Comment on above: Performed By: #### L 100.0100 ####[facility] [address] [place], [address] Platelet mean volume (Bld) [Entitic vol] 9.5 fL Normal 6.2-12.0 [facility] Comment on above: Performed By: #### L 100.0100 ####[facility] [address] [place], [address] Platelets (Bld) [#/Vol] 482 10*3/uL High 150-450 [facility] Comment on above: Performed By: #### L 100.0100 ####[facility] [address] [place], [address] RBC (Bld) [#/Vol] 3.83 10*6/uL Low 4.6-6.[address] [facility] Comment on above: Performed By: #### L 100.0100 ####[facility] [address] [place], [address] RDW SD 45.9 fl High 35.1-43.9 [facility] Comment on above: Performed By: #### L 100.0100 ####[facility] [address] [place], [address] WBC (Bld) [#/Vol] 10.4 10*3/uL Normal 4.4-11.[address] [facility] Comment on above: Performed By: #### L 100.0100 ####[facility] [address] [place], [address] Eosinophil percentageOrdered By: Leandra Diaz on 09-27-2024 Eosinophils/100 WBC (Bld) 6.3 % High 0-5 [facility] Erythrocyte distribution wid th ratioOrdered By: Leandra Diaz on 09-27-2024 Erythrocyte distribution width (RBC) [Ratio] 16.5 % High 11.6-14.6 [facility] Erythrocyte distribution wid th standard deviationOrdered By: Leandra Diaz on 09-27-2024 Erythrocyte distribution width (RBC) [Ratio] 45.9 fl High 35.1-43.9 [facility] Gastroenterology Visit Repor ton 09-27-2024 Gastroenterology Visit Report Normal [facility] Hematocrit Auto (Bld) [Volum e fraction]Ordered By: Leandra Diaz on 09-27-2024 Hematocrit (Bld) [Volume fraction] 29.5 % Low 40-54 [facility] Hemoglobin measurementOrdere d By: Leandra Diaz on 09-27-2024 Hemoglobin (Bld) [Mass/Vol] 8.5 g/dL Low 13.0-16.5 [facility] Immature granulocytes/100 WB C Auto (Bld)Ordered By: Leandra Diaz on 09-27-2024 Immature granulocytes/100 WBC (Bld) 0.500 % 0.0-0.9 [facility] Comment on above: IG% - Immature Granu locytes (promyelocytes, myelocytes and metamyelocytes) > 1% indicates that a LEFT SHIFT is Present. MCV (mean corpuscular volume ) determinationOrdered By: Leandra Diaz on 09-27-2024 MCV (RBC) [Entitic vol] 77.0 fL Low 80-94 [facility] Mean corpuscular hemoglobin (MCH) determinationOrdered By: Leandra Diaz on 09-27-2024 MCH (RBC) [Entitic mass] 22.2 pg Low 27.0-32.0 [facility] Mean corpuscular hemoglobin concentration (MCHC) determinationOrdered By: Leandra Diaz on 09-27-2024 MCHC (RBC) [Mass/Vol] 28.8 g/dL Low 32-36 [facility] Mean platelet volume determi nationOrdered By: Leandra Diaz on 09-27-2024 Platelet mean volume (Bld) [Entitic vol] 9.5 fL 6.2-12.0 [facility] Monocyte percentageOrdered B y: Leandra Diaz on 09-27-2024 Monocytes/100 WBC (Bld) 10.3 % High 0-10 [facility] Neutrophil percentageOrdered By: Leandra Diaz on 09-27-2024 Neutrophils/100 WBC (Bld) 68.0 % 47-70 [facility] Nucleated red blood cell per centageOrdered By: Leandra Diaz on 09-27-2024 Nucleated RBC/100 WBC (Bld) [Ratio] 0 % 0-5 [facility] Platelet countOrdered By: Jania Diaz on 09-27-2024 Platelets (Bld) [#/Vol] 482 10*3/uL High 150-450 [facility] RBC Auto (Bld) [#/Vol]Ordere d By: Leandra Diaz on 09-27-2024 RBC (Bld) [#/Vol] 3.83 10*6/uL Low 4.6-6.[address] [facility] White blood cell (WBC) count Ordered By: Leandra Diaz on 09-27-2024 WBC (Bld) [#/Vol] 10.4 10*3/uL 4.4-11.[address] [facility] Stool Occult Blood iFOBon STOB Positive Normal [facility] Comment on above: Performed By: #### M 100.7900 ####[facility] [address] [place], [address] Stool gastrointestinal hemog lobin detection by immunologic methodOrdered By: J Luis Mcgill on 09-21-2024 Lower GI hemoglobin IA Ql (Stl) Positive Abnormal [facility] Absolute lymphocyte countOrd ered By: J Luis [place] on 08-16-2024 Lymphocytes Auto (Unsp spec) [#/Vol] 1.38 10*3/uL 0.83-4.51 [facility] Absolute neutrophil countOrd ered By: J Luis Mcgill on 08-16-2024 Neutrophils (Bld) [#/Vol] 7.1 10*3/uL 2.0-7.7 [facility] Automated lymphocyte count a s percentage of total leukocytesOrdered By: J Luis Artem on 08-16-2024 Lymphocytes/100 WBC Auto (Unsp spec) 13.9 % Low 19-41 [facility] Basophil percentageOrdered B y: J Luis Mcgill on 08-16-2024 Basophils/100 WBC (Bld) 0.6 % 0-1 [facility] CBC W/Diff, Automatedon 07-22 Absolute Lymph 1.38 X10 3/uL Normal 0.83-4.51 [facility] Comment on above: Performed By: #### L 100.9950, L503.6030, L100.0100, L503.6550, L506.0200, L503.0106 ####[facility] [address] [place], [address] Absolute Neut 7.1 X10 3/uL Normal 2.0-7.7 [facility] Comment on above: Performed By: #### L 100.9950, L503.6030, L100.0100, L503.6550, L506.0200, L503.0106 ####[facility] [address] [place], [address] Basophils/100 WBC (Bld) 0.6 % Normal 0-1 [facility] Comment on above: Performed By: #### L 100.9950, L503.6030, L100.0100, L503.6550, L506.0200, L503.0106 ####[facility] [address] [place], [address] Eosinophils/100 WBC (Bld) 2.6 % Normal 0-5 [facility] Comment on above: Performed By: #### L 100.9950, L503.6030, L100.0100, L503.6550, L506.0200, L503.0106 ####[facility] [address] [place], [address] Erythrocyte distribution width (RBC) [Ratio] 17.4 % High 11.6-14.6 [facility] Comment on above: Performed By: #### L 100.9950, L503.6030, L100.0100, L503.6550, L506.0200, L503.0106 ####[facility] [address] [place], [address] Hematocrit (Bld) [Volume fraction] 29.8 % Low 40-54 [facility] Comment on above: Performed By: #### L 100.9950, L503.6030, L100.0100, L503.6550, L506.0200, L503.0106 ####[facility] [address] [place], [address] Hemoglobin (Bld) [Mass/Vol] 8.8 g/dL Low 13.0-16.5 [facility] Comment on above: Performed By: #### L 100.9950, L503.6030, L100.0100, L503.6550, L506.0200, L503.0106 ####[facility] [address] [place], [address] IG% 1.200 High 0.0-0.9 [facility] Comment on above: Result Comment: IG% - Immature Granulocytes (promyelocytes, myelocytes andmetamyelocytes) > 1% indicates that a LEFT SHIFT is Present. Performed By: #### L 100.9950, L503.6030, L100.0100, L503.6550, L506.0200, L503.0106 ####[facility] [address] [place], [address] Lymphocytes/100 WBC (Bld) 13.9 % Low 19-41 [facility] Comment on above: Performed By: #### L 100.9950, L503.6030, L100.0100, L503.6550, L506.0200, L503.0106 ####[facility] [address] [place], [address] MCH (RBC) [Entitic mass] 22.8 pg Low 27.0-32.0 [facility] Comment on above: Performed By: #### L 100.9950, L503.6030, L100.0100, L503.6550, L506.0200, L503.0106 ####[facility] [address] [place], [address] MCHC (RBC) [Mass/Vol] 29.5 g/dL Low 32-36 [facility] Comment on above: Performed By: #### L 100.9950, L503.6030, L100.0100, L503.6550, L506.0200, L503.0106 ####[facility] [address] [place], [address] MCV (RBC) [Entitic vol] 77.2 fL Low 80-94 [facility] Comment on above: Performed By: #### L 100.9950, L503.6030, L100.0100, L503.6550, L506.0200, L503.0106 ####[facility] [address] [place], [address] Monocytes/100 WBC (Bld) 10.3 % High 0-10 [facility] Comment on above: Performed By: #### L 100.9950, L503.6030, L100.0100, L503.6550, L506.0200, L503.0106 ####[facility] [address] [place], [address] Neutrophils/100 WBC (Bld) 71.4 % High 47-70 [facility] Comment on above: Performed By: #### L 100.9950, L503.6030, L100.0100, L503.6550, L506.0200, L503.0106 ####[facility] [address] [place], [address] Nucleated RBC (Bld) [#/Vol] 0 10*3/uL Normal 0-5 [facility] Comment on above: Performed By: #### L 100.9950, L503.6030, L100.0100, L503.6550, L506.0200, L503.0106 ####[facility] [address] [place], [address] Platelet mean volume (Bld) [Entitic vol] 9.9 fL Normal 6.2-12.0 [facility] Comment on above: Performed By: #### L 100.9950, L503.6030, L100.0100, L503.6550, L506.0200, L503.0106 ####[facility] [address] [place], [address] Platelets (Bld) [#/Vol] 508 10*3/uL High 150-450 [facility] Comment on above: Performed By: #### L 100.9950, L503.6030, L100.0100, L503.6550, L506.0200, L503.0106 ####[facility] [address] [place], [address] RBC (Bld) [#/Vol] 3.86 10*6/uL Low 4.6-6.[address] [facility] Comment on above: Performed By: #### L 100.9950, L503.6030, L100.0100, L503.6550, L506.0200, L503.0106 ####[facility] [address] [place], [address] RDW SD 49.0 fl High 35.1-43.9 [facility] Comment on above: Performed By: #### L 100.9950, L503.6030, L100.0100, L503.6550, L506.0200, L503.0106 ####[facility] [address] [place], [address] WBC (Bld) [#/Vol] 9.9 10*3/uL Normal 4.4-11.0 [facility] Comment on above: Performed By: #### L 100.9950, L503.6030, L100.0100, L503.6550, L506.0200, L503.0106 ####[facility] [address] [place], [address] Duplex ultrasound of carotid artery reportOrdered By: Kelton Blakely on 08-16-2024 Study report [facility] [address] [place] [address] Carotid Duplex Ultrasound 08/12/24 1005 MR#: [id number] Acct: [id number] Name: JOHNNIE QUIJANO Rep #:[id number] 1940 84 From: Kelton Urrutia Attending Dr: MASTER Cheung Stat us: REG CLI Ordering Dr: Madeleine Centeno Date: Location: [facility] Sex: M C Admitted: Reason For Study Reason For Study: S/P L TCAR Rt. Velocities/BP Lt. Velocities/BP Prox CCA 82.8/19.0 cm/sec. Prox CCA 91.2/21.2 cm/sec. Mid CCA 115.6/13.3 cm/sec. Mid CCA, Pre Stent - 66.7/16.3 cm/s. Dist CCA 117.4/20.6 cm/sec. Dist CCA, Prox Stent - 76.5/15.1 cm/s. Prox ICA 57.5/11.3 cm/sec. Prox ICA, Mid Stent - 86.3/16.0 cm/s. Mid ICA 106.0/26.2 cm/sec. Mid ICA, DIst Stent - 101.6/27.0 cm/s. Dist ICA 83.9/28.6 cm/sec. Dist ICA, Dist to Stent - 103.8/31.4 cm/s. Rt. ICA/CCA = 0.9. Lt. ICA/CCA = 1.5. Prox ECA 174.1/9.4 cm/sec. Prox ECA 344.9/43.2 cm/sec. Rt. Vert. 63.0/14.6 cm/sec. Lt. Vert. 48.7/10.2 cm/sec. Right Extracranial There is intimal thickening but no significant atherosclerotic plaque noted in the right common carotid artery. There is heterogeneous, irregular atherosclerotic plaque noted in the right internal carotid artery. There is heterogeneous, irregular atherosclerotic plaque noted in the right external carotid artery. Antegrade flow is noted in the right vertebral artery. Left Extracranial There is homogeneous, smooth atherosclerotic plaque noted in the left common carotid artery. Stent noted in Distal CCA to Mid ICA. There is heterogeneous, irregular atherosclerotic plaque noted in the left internal carotid artery. There is heterogeneous, irregular atherosclerotic plaque noted in the left external carotid artery. Antegrade flow is noted in the left vertebral artery. Procedure Carotid Duplex 43793. This is a Carotid Duplex examination using B-mode, color flow and specral Doppler. Exam performed in department. VL/Carotid Duplex Ultrasound Interpretation Summary Mild (<50%) stenosis right extracranial internal carotid. Mild (<50%) stenosis left extracranial internal carotid. Patent and antegrade vertebrals bilaterally. Ordering Physician: Madeleine Centeno Referring Physician: J Luis Mcgill Chi Performed By: Libby Pimentel, RVT 08/16/24 1508 Date _ Kelton Blakely MD CC: MASTER Cheung; Dr. J Luis Mcgill MD ~ Date Dictated: 08/12/24 1005 Date Transcribed: 08/16/241507 [employer] Supervisor: Signed [facility] Work Phone: Eosinophil percentageOrdered By: J Luis Mcgill on 08-16-2024 Eosinophils/100 WBC (Bld) 2.6 % 0-5 [facility] Erythrocyte distribution wid th ratioOrdered By: J Luis Mcgill on 08-16-2024 Erythrocyte distribution width (RBC) [Ratio] 17.4 % High 11.6-14.6 [facility] Erythrocyte distribution wid th standard deviationOrdered By: J Luis Mcgill on 08-16-2024 Erythrocyte distribution width (RBC) [Ratio] 49.0 fl High 35.1-43.9 [facility] Ferritinon 08-16-2024 Ferritin [Mass/Vol] 21 ng/mL Low 37-[address] [facility] Comment on above: Performed By: #### L 100.9950, L503.6030, L100.0100, L503.6550, L506.0200, L503.0106 ####[facility] [address] [facility] [place], [place], [address] Folate [Mass/volume] in Seru m or PlasmaOrdered By: J Luis Mcgill on 08-16-2024 Folate [Mass/Vol] 6.61 ng/mL 4.60-34.80 [facility] Folates,Serum (Folic Acid)on 08-16-2024 FOLATES,SERUM 6.61 ng/mL Normal 4.60-34.80 [facility] Comment on above: Order Comment: N Performed By: #### L 100.9950, L503.6030, L100.0100, L503.6550, L506.0200, L503.0106 ####[facility] [address] [place], [place], [address] Hematocrit Auto (Bld) [Volum e fraction]Ordered By: J Luis Mcgill on 08-16-2024 Hematocrit (Bld) [Volume fraction] 29.8 % Low 40-54 [facility] Hemoglobin measurementOrdere d By: J Luis Artem on 08-16-2024 Hemoglobin (Bld) [Mass/Vol] 8.8 g/dL Low 13.0-16.5 [facility] Immature granulocytes/100 WB C Auto (Bld)Ordered By: J Luis Mcgill on 08-16-2024 Immature granulocytes/100 WBC (Bld) 1.200 % High 0.0-0.9 [facility] Comment on above: IG% - Immature Granu locytes (promyelocytes, myelocytes and metamyelocytes) > 1% indicates that a LEFT SHIFT is Present. Iron measurement (mass/mass) Ordered By: J Luis Mcgill on 08-16-2024 Iron (Unsp spec) [Mass/Mass] 32 ug/dL Low 65-175 [facility] Iron+Iron Binding Capacityon 08-16-2024 Iron [Mass/Vol] 32 ug/dL Low 65-175 [facility] Comment on above: Performed By: #### L 100.9950, L503.6030, L100.0100, L503.6550, L506.0200, L503.0106 ####[facility] [address] [place], [address] IRON SATURATION 9.0 Normal 9-55 [facility] Comment on above: Performed By: #### L 100.9950, L503.6030, L100.0100, L503.6550, L506.0200, L503.0106 ####[facility] [address] [place], [address] TIBC 349 ug/dL Normal 250-450 [facility] Comment on above: Performed By: #### L 100.9950, L503.6030, L100.0100, L503.6550, L506.0200, L503.0106 ####[facility] [address] [place], [address] UIBC 317 ug/dL Normal 228-428 [facility] Comment on above: Performed By: #### L 100.9950, L503.6030, L100.0100, L503.6550, L506.0200, L503.0106 ####[facility] [address] [place], [address] MCV (mean corpuscular volume ) determinationOrdered By: J Luis Mcgill 08-16-2024 MCV (RBC) [Entitic vol] 77.2 fL Low 80-94 [facility] Mean corpuscular hemoglobin (MCH) determinationOrdered By: J Luis Mcgill 08-16-2024 MCH (RBC) [Entitic mass] 22.8 pg Low 27.0-32.0 [facility] Mean corpuscular hemoglobin concentration (MCHC) determinationOrdered By: J Luis Mcgill 08-16-2024 MCHC (RBC) [Mass/Vol] 29.5 g/dL Low 32-36 [facility] Mean platelet volume determi nationOrdered By: J Luis Mcgill 08-16-2024 Platelet mean volume (Bld) [Entitic vol] 9.9 fL 6.2-12.0 [facility] Monocyte percentageOrdered B y: J Luis Mcgill on 08-16-2024 Monocytes/100 WBC (Bld) 10.3 % High 0-10 [facility] Neutrophil percentageOrdered By: J Luis Mcgill on 08-16-2024 Neutrophils/100 WBC (Bld) 71.4 % High 47-70 [facility] No Panel InformationOrdered By: J Luis Mcgill on 08-16-2024 Unsaturated Iron Binding Capacity 317 ug/dL 228-428 [facility] Nucleated red blood cell per centageOrdered By: J Luis Mcgill on 08-16-2024 Nucleated RBC/100 WBC (Bld) [Ratio] 0 % 0-5 [facility] Platelet countOrdered By: Wan Mcgill on 08-16-2024 Platelets (Bld) [#/Vol] 508 10*3/uL High 150-450 [facility] RBC Auto (Bld) [#/Vol]Ordere d By: J Luis Artem on 08-16-2024 RBC (Bld) [#/Vol] 3.86 10*6/uL Low 4.6-6.[address] [facility] Retic Panelon 08-16-2024 IM RET FRACTION 27.30 High 3.00-15.90 [facility] Comment on above: Performed By: #### L 100.9950, L503.6030, L100.0100, L503.6550, L506.0200, L503.0106 ####[facility] [id number] [place], [place], [id number] RET-HE 21.1 pg Low 30-35 [facility] Comment on above: Performed By: #### L 100.9950, L503.6030, L100.0100, L503.6550, L506.0200, L503.0106 ####[facility] [facility] [address] [place], [place], [id number] Retic Count 1.46 Normal 0.5-1.5 [facility] Comment on above: Performed By: #### L 100.9950, L503.6030, L100.0100, L503.6550, L506.0200, L503.0106 ####[facility] [address] [place], [place], [id number] Reticulocyte hemoglobin equi valent (RET-He) measurementOrdered By: J Luis [place]ced[place] on 08-16-2024 Hemoglobin (Reticulocytes) [Entitic mass] 21.1 pg Low 30-35 [facility] Reticulocytes Auto (Bld) [#/ Vol]Ordered By: J Luis Artem on 08-16-2024 Reticulocytes/100 RBC (Bld) 1.46 % 0.5-1.5 [facility] Serum or plasma ferritin josh surement (mass/volume)Ordered By: J Luis Artem on 08-16-2024 Ferritin [Mass/Vol] 21 ng/mL Low 37-[address] [facility] Serum or plasma iron saturat ion measurement (mass fraction)Ordered By: J Luis [place] on 08-16-2024 Iron saturation [Mass fraction] 9.0 % 9-55 [facility] Vitamin B12on 08-16-2024 Cobalamin (Vitamin B12) [Mass/Vol] 499 pg/mL Normal 180-914 [facility] Comment on above: Performed By: #### L 100.9950, L503.6030, L100.0100, L503.6550, L506.0200, L503.0106 ####[facility] [address] [place], [place], [id number] Vitamin B12 ser/plasOrdered By: J Luis Artem on 08-16-2024 Cobalamin (Vitamin B12) [Mass/Vol] 499 pg/mL 180-914 [facility] White blood cell (WBC) count Ordered By: J Luis Artem on 08-16-2024 WBC (Bld) [#/Vol] 9.9 10*3/uL 4.4-11.0 [facility] Carotid Duplex Ultrasoundon 08-12-2024 Carotid Duplex Ultrasound Normal [facility] Comprehensive Metabolic Prof ilon 08-11-2024 Albumin [Mass/Vol] 3.8 g/dL Normal 3.4-4.8 [facility] Comment on above: Performed By: #### L 500.4050, L100.0100, L506.1001, L501.9520 ####[facility] [address] [place], [address] Albumin/Globulin [Mass ratio] 1.4 {ratio} Normal 0.9-2.4 [facility] Comment on above: Performed By: #### L 500.4050, L100.0100, L506.1001, L501.9520 ####[facility] [address] [place], [address] ALK PHOS 132 U/L High 40-129 [facility] Comment on above: Performed By: #### L 500.4050, L100.0100, L506.1001, L501.9520 ####[facility] [address] [place], [address] ALT [Catalytic activity/Vol] 10 U/L Normal <=46 [facility] Comment on above: Performed By: #### L 500.4050, L100.0100, L506.1001, L501.9520 ####[facility] [address] [place], [address] AST [Catalytic activity/Vol] 18 U/L Normal <=37 [facility] Comment on above: Performed By: #### L 500.4050, L100.0100, L506.1001, L501.9520 ####[facility] [address] [place], [address] Bilirubin [Mass/Vol] 0.18 mg/dL Normal 0.00-1.30 [facility] Comment on above: Performed By: #### L 500.4050, L100.0100, L506.1001, L501.9520 ####[facility] [address] [place], [address] BUN/CRE 13.5 RATIO Normal 10-20 [facility] Comment on above: Performed By: #### L 500.4050, L100.0100, L506.1001, L501.9520 ####[facility] [address] [place], [address] Calcium [Mass/Vol] 8.5 mg/dL Normal 7.6-11.0 [facility] Comment on above: Performed By: #### L 500.4050, L100.0100, L506.1001, L501.9520 ####[facility] [address] [place], [address] Chloride [Moles/Vol] 106 mmol/L Normal 98-108 [facility] Comment on above: Performed By: #### L 500.4050, L100.0100, L506.1001, L501.9520 ####[facility] [address] [place], [address] CO2 [Moles/Vol] 23.5 mmol/L Normal 21.0-32.0 [facility] Comment on above: Performed By: #### L 500.4050, L100.0100, L506.1001, L501.9520 ####[facility] [address] [place], [address] Creatinine [Mass/Vol] 0.95 mg/dL Normal 0.70-1.20 [facility] Comment on above: Performed By: #### L 500.4050, L100.0100, L506.1001, L501.9520 ####[facility] [address] [place], [address] GAP 12 Normal 5-15 [facility] Comment on above: Performed By: #### L 500.4050, L100.0100, L506.1001, L501.9520 ####[facility] [address] [place], [address] GFR/1.73 sq M.predicted among non-blacks MDRD (S/P/Bld) [Vol rate/Area] 78 mL/min/{1.73_m2} Normal >60 [facility] Comment on above: Result Comment: mL/m in/1.73m2 CKD-EPI Creatinine Equation (2020) Performed By: #### L 500.4050, L100.0100, L506.1001, L501.9520 ####[facility] [address] [place], [address] Globulin (S) [Mass/Vol] 2.7 g/dL Normal 2.2-4.2 [facility] Comment on above: Performed By: #### L 500.4050, L100.0100, L506.1001, L501.9520 ####[facility] [address] [place], [address] Glucose [Mass/Vol] 85 mg/dL Normal 70-99 [facility] Comment on above: Performed By: #### L 500.4050, L100.0100, L506.1001, L501.9520 ####[facility] [address] [place], [address] Potassium [Moles/Vol] 3.4 mmol/L Normal 3.3-5.1 [facility] Comment on above: Performed By: #### L 500.4050, L100.0100, L506.1001, L501.9520 ####[facility] [address] [place], [address] Sodium [Moles/Vol] 142 mmol/L Normal 133-145 [facility] Comment on above: Performed By: #### L 500.4050, L100.0100, L506.1001, L501.9520 ####[facility] [address] [place], [address] T PROT 6.5 g/dL Normal 5.9-8.4 [facility] Comment on above: Performed By: #### L 500.4050, L100.0100, L506.1001, L501.9520 ####[facility] [address] [place], [address] Urea nitrogen [Mass/Vol] 13 mg/dL Normal 4-19 [facility] Comment on above: Performed By: #### L 500.4050, L100.0100, L506.1001, L501.9520 ####[facility] [address] [place], [address] Thyroid Stim Hormone (TSH)on 08-11-2024 TSH 1.450 uIU/mL Normal 0.300-4.200 [facility] Comment on above: Performed By: #### L 500.4050, L100.0100, L506.1001, L501.9520 ####[facility] [address] [place], [address] Vitamin D,25 Hydroxyon 08-11 Vitamin D 25-OH 9.3 ng/mL Low 30-100 [facility] Comment on above: Result Comment: Marichuy min D StatusDeficiency: <20 ng/mL (50nmol/L)Insufficiency: 20-30 ng/mL (50-75 nmol/L)Sufficiency: 30-100 ng/mL (75-250 nmol/L)Toxicity: >100 ng/mL (>250 nmol/L) Performed By: #### L 500.4050, L100.0100, L506.1001, L501.9520 ####[facility] [address] [place], [address] Absolute lymphocyte countOrd ered By: J Luis Mcgill on 08-10-2024 Lymphocytes Auto (Unsp spec) [#/Vol] 1.27 10*3/uL 0.83-4.51 [facility] Absolute neutrophil countOrd ered By: J Luis Mcgill on 08-10-2024 Neutrophils (Bld) [#/Vol] 7.7 10*3/uL 2.0-7.7 [facility] Anion gap in Serum or Plasma Ordered By: J Luis Mcgill on 08-10-2024 Anion gap [Moles/Vol] 12 mmol/L 5-15 [facility] Automated lymphocyte count a s percentage of total leukocytesOrdered By: J Luis Mcgill on 08-10-2024 Lymphocytes/100 WBC Auto (Unsp spec) 11.7 % Low 19- [facility] BUN/creatinine ratioOrdered By: J Luis Mcgill on 08-10-2024 Urea nitrogen/Creatinine [Mass ratio] 13.5 mg/mg 10- [facility] Basophil percentageOrdered B y: J Luis Mcgill on 08-10-2024 Basophils/100 WBC (Bld) 0.5 % 0-1 [facility] Bilirubin, totalOrdered By: J Luis Mcgill on 08-10-2024 Bilirubin [Mass/Vol] 0.18 mg/dL 0.00-1.30 [facility] CBC W/Diff, Automatedon 07-22 Absolute Lymph 1.27 X10 3/uL Normal 0.83-4.51 [facility] Comment on above: Performed By: #### L 500.4050, L100.0100, L506.1001, L501.9520 ####[facility] [address] [place], [address] Absolute Neut 7.7 X10 3/uL Normal 2.0-7.7 [facility] Comment on above: Performed By: #### L 500.4050, L100.0100, L506.1001, L501.9520 ####[facility] [address] [place], [address] Basophils/100 WBC (Bld) 0.5 % Normal 0-1 [facility] Comment on above: Performed By: #### L 500.4050, L100.0100, L506.1001, L501.9520 ####[facility] [address] [place], [address] Eosinophils/100 WBC (Bld) 1.8 % Normal 0-5 [facility] Comment on above: Performed By: #### L 500.4050, L100.0100, L506.1001, L501.9520 ####[facility] [address] [place], [address] Erythrocyte distribution width (RBC) [Ratio] 17.3 % High 11.6-14.6 [facility] Comment on above: Performed By: #### L 500.4050, L100.0100, L506.1001, L501.9520 ####[facility] [address] [place], [address] Hematocrit (Bld) [Volume fraction] 29.7 % Low 40-54 [facility] Comment on above: Performed By: #### L 500.4050, L100.0100, L506.1001, L501.9520 ####[facility] [address] [place], [address] Hemoglobin (Bld) [Mass/Vol] 8.8 g/dL Low 13.0-16.5 [facility] Comment on above: Performed By: #### L 500.4050, L100.0100, L506.1001, L501.9520 ####[facility] [address] [place], [address] IG% 1.200 High 0.0-0.9 [facility] Comment on above: Result Comment: IG% - Immature Granulocytes (promyelocytes, myelocytes andmetamyelocytes) > 1% indicates that a LEFT SHIFT is Present. Performed By: #### L 500.4050, L100.0100, L506.1001, L501.9520 ####[facility] [address] [place], [address] Lymphocytes/100 WBC (Bld) 11.7 % Low 19-41 [facility] Comment on above: Performed By: #### L 500.4050, L100.0100, L506.1001, L501.9520 ####[facility] [address] [place], [address] MCH (RBC) [Entitic mass] 23.3 pg Low 27.0-32.0 [facility] Comment on above: Performed By: #### L 500.4050, L100.0100, L506.1001, L501.9520 ####[facility] [address] [place], [address] MCHC (RBC) [Mass/Vol] 29.6 g/dL Low 32-36 [facility] Comment on above: Performed By: #### L 500.4050, L100.0100, L506.1001, L501.9520 ####[facility] [address] [place], [address] MCV (RBC) [Entitic vol] 78.6 fL Low 80-94 [facility] Comment on above: Performed By: #### L 500.4050, L100.0100, L506.1001, L501.9520 ####[facility] [address] [place], [address] Monocytes/100 WBC (Bld) 13.3 % High 0-10 [facility] Comment on above: Performed By: #### L 500.4050, L100.0100, L506.1001, L501.9520 ####[facility] [address] [place], [address] Neutrophils/100 WBC (Bld) 71.5 % High 47-70 [facility] Comment on above: Performed By: #### L 500.4050, L100.0100, L506.1001, L501.9520 ####[facility] [address] [place], [address] Nucleated RBC (Bld) [#/Vol] 0 10*3/uL Normal 0-5 [facility] Comment on above: Performed By: #### L 500.4050, L100.0100, L506.1001, L501.9520 ####[facility] [address] [place], [address] Platelet mean volume (Bld) [Entitic vol] 9.7 fL Normal 6.2-12.0 [facility] Comment on above: Performed By: #### L 500.4050, L100.0100, L506.1001, L501.9520 ####[facility] [address] [place], [address] Platelets (Bld) [#/Vol] 489 10*3/uL High 150-450 [facility] Comment on above: Performed By: #### L 500.4050, L100.0100, L506.1001, L501.9520 ####[facility] [address] [place], [address] RBC (Bld) [#/Vol] 3.78 10*6/uL Low 4.6-6.[address] [facility] Comment on above: Performed By: #### L 500.4050, L100.0100, L506.1001, L501.9520 ####[facility] [address] [place], [address] RDW SD 49.0 fl High 35.1-43.9 [facility] Comment on above: Performed By: #### L 500.4050, L100.0100, L506.1001, L501.9520 ####[facility] [address] [place], [address] WBC (Bld) [#/Vol] 10.8 10*3/uL Normal 4.4-11.[address] [facility] Comment on above: Performed By: #### L 500.4050, L100.0100, L506.1001, L501.9520 ####[facility] [address] [place], [address] Carbon dioxide, total [Moles /volume] in Central venous bloodOrdered By: J Luis Mcgill on 08-10-2024 CO2 [Moles/Vol] 23.5 mmol/L 21.0-32.0 [facility] Chloride assayOrdered By: Wan Mcgill on 08-10-2024 Chloride [Moles/Vol] 106 mmol/L 98-108 [facility] Eosinophil percentageOrdered By: J Luis Mcgill on 08-10-2024 Eosinophils/100 WBC (Bld) 1.8 % 0-5 [facility] Erythrocyte distribution wid th ratioOrdered By: J Luis Mcgill on 08-10-2024 Erythrocyte distribution width (RBC) [Ratio] 17.3 % High 11.6-14.6 [facility] Erythrocyte distribution wid th standard deviationOrdered By: J Luis Mcgill 08-10-2024 Erythrocyte distribution width (RBC) [Ratio] 49.0 fl High 35.1-43.9 [facility] Glomerular filtration rate ( GFR) estimation/1.73 sq m using serum, plasma, or whole bOrdered By: J Luis Mcgill on 08-10-2024 GFR/1.73 sq M.predicted among non-blacks MDRD (S/P/Bld) [Vol rate/Area] 78 mL/min/{1.73_m2} >60 [facility] Comment on above: mL/min/1.73m2 CKD-EP I Creatinine Equation (2020) Hematocrit Auto (Bld) [Volum e fraction]Ordered By: J Luis Mcgill 08-10-2024 Hematocrit (Bld) [Volume fraction] 29.7 % Low 40-54 [facility] Hemoglobin measurementOrdere d By: J Luis Mcgill 08-10-2024 Hemoglobin (Bld) [Mass/Vol] 8.8 g/dL Low 13.0-16.5 [facility] Immature granulocytes/100 WB C Auto (Bld)Ordered By: J Luis Mcgill 08-10-2024 Immature granulocytes/100 WBC (Bld) 1.200 % High 0.0-0.9 [facility] Comment on above: IG% - Immature Granu locytes (promyelocytes, myelocytes and metamyelocytes) > 1% indicates that a LEFT SHIFT is Present. Laboratory - Chemistry and C hemistry - challengeOrdered By: J Luis Mcgill on 08-10-2024 AST [Catalytic activity/Vol] 18 U/L <38 [facility] MCV (mean corpuscular volume ) determinationOrdered By: J Luis Mcgill on 08-10-2024 MCV (RBC) [Entitic vol] 78.6 fL Low 80-94 [facility] Mean corpuscular hemoglobin (MCH) determinationOrdered By: J Luis Mcgill on 08-10-2024 MCH (RBC) [Entitic mass] 23.3 pg Low 27.0-32.0 [facility] Mean corpuscular hemoglobin concentration (MCHC) determinationOrdered By: J Luis Mcgill on 08-10-2024 MCHC (RBC) [Mass/Vol] 29.6 g/dL Low 32-36 [facility] Mean platelet volume determi nationOrdered By: J Luis Mcgill on 08-10-2024 Platelet mean volume (Bld) [Entitic vol] 9.7 fL 6.2-12.0 [facility] Monocyte percentageOrdered B y: J Luis Mcgill on 08-10-2024 Monocytes/100 WBC (Bld) 13.3 % High 0-10 [facility] Neutrophil percentageOrdered By: J Luis Mcgill on 08-10-2024 Neutrophils/100 WBC (Bld) 71.5 % High 47-70 [facility] Nucleated red blood cell per centageOrdered By: J Luis Mcgill on 08-10-2024 Nucleated RBC/100 WBC (Bld) [Ratio] 0 % 0-5 [facility] Platelet countOrdered By: Wan Mcgill on 08-10-2024 Platelets (Bld) [#/Vol] 489 10*3/uL High 150-450 [facility] Potassium measurement (mass/ volume)Ordered By: J Luis Mcgill on 08-10-2024 Potassium (Unsp spec) [Mass/Vol] 3.4 mmol/L 3.3-5.1 [facility] RBC Auto (Bld) [#/Vol]Ordere d By: J Luis Mcgill on 08-10-2024 RBC (Bld) [#/Vol] 3.78 10*6/uL Low 4.6-6.[address] [facility] Serum creatinine measurement (mass/volume)Ordered By: J Luis Mcgill on 08-10-2024 Creatinine [Mass/Vol] 0.95 mg/dL 0.70-1.20 [facility] Serum globulin measurementOr dered By: J Luis Mcgill on 08-10-2024 Globulin (S) [Mass/Vol] 2.7 g/dL 2.2-4.2 [facility] Serum glucose measurement (m ass/volume)Ordered By: J Luis Mcgill 08-10-2024 Glucose [Mass/Vol] 85 mg/dL 70-99 [facility] Serum or plasma alanine bryan otransferase (ALT) measurementOrdered By: J Luis Mcgill 08-10-2024 ALT [Catalytic activity/Vol] 10 U/L <47 [facility] Serum or plasma albumin mike urement (mass/volume)Ordered By: J Luis Mcgill 08-10-2024 Albumin [Mass/Vol] 3.8 g/dL 3.4-4.8 [facility] Serum or plasma albumin/glob ulin mass ratioOrdered By: J Luis Mcgill 08-10-2024 Albumin/Globulin [Mass ratio] 1.4 {ratio} 0.9-2.4 [facility] Serum or plasma alkaline jean-paul sphatase measurementOrdered By: J Luis Mcgill 08-10-2024 ALP [Catalytic activity/Vol] 132 U/L High 40-129 [facility] Serum or plasma calcium mike urement (mass/volume)Ordered By: J Luis Mcgill 08-10-2024 Calcium [Mass/Vol] 8.5 mg/dL 7.6-11.0 [facility] Serum or plasma urea nitroge n measurement (mass/volume)Ordered By: J Luis Mcgill 08-10-2024 Urea nitrogen [Mass/Vol] 13 mg/dL 4-19 [facility] Sodium levelOrdered By: J Luis Mcgill 08-10-2024 Sodium [Moles/Vol] 142 mmol/L 133-145 [facility] TSH DL <= 0.005 mIU/L QnOrde red By: J Luis Mcgill on 08-10-2024 TSH Qn 1.450 uIU/mL 0.300-4.200 [facility] Total proteinOrdered By: J Luis Mcgill 08-10-2024 Protein [Mass/Vol] 6.5 g/dL 5.9-8.4 [facility] White blood cell (WBC) count Ordered By: J Luis Mcgill on 08-10-2024 WBC (Bld) [#/Vol] 10.8 10*3/uL 4.4-11.[address] [facility] Cardiology Visit Reporton Cardiology Visit Report Normal [facility] Surgery Visit Reporton 07-27 Surgery Visit Report Normal [facility] Absolute lymphocyte countOrd ered By: Kelton Blakely on 07-13-2024 Lymphocytes Auto (Unsp spec) [#/Vol] 1.37 10*3/uL 0.83-4.51 [facility] Absolute neutrophil countOrd ered By: Kelton Reddy on 07-13-2024 Neutrophils (Bld) [#/Vol] 6.5 10*3/uL 2.0-7.7 [facility] Automated lymphocyte count a s percentage of total leukocytesOrdered By: Kelton Reddy on 07-13-2024 Lymphocytes/100 WBC Auto (Unsp spec) 15.1 % Low 19-41 [facility] Basophil percentageOrdered B y: Kelton Blakely on 07-13-2024 Basophils/100 WBC (Bld) 0.3 % 0-1 [facility] CBC W/Diff, Automatedon 06-22 Absolute Lymph 1.37 X10 3/uL Normal 0.83-4.51 [facility] Comment on above: Performed By: #### L 100.0100 ####[facility] [address] [place], [address] Absolute Neut 6.5 X10 3/uL Normal 2.0-7.7 [facility] Comment on above: Performed By: #### L 100.0100 ####[facility] [address] [place], [address] Basophils/100 WBC (Bld) 0.3 % Normal 0-1 [facility] Comment on above: Performed By: #### L 100.0100 ####[facility] [address] [place], [address] Eosinophils/100 WBC (Bld) 1.4 % Normal 0-5 [facility] Comment on above: Performed By: #### L 100.0100 ####[facility] [address] [place], [address] Erythrocyte distribution width (RBC) [Ratio] 17.7 % High 11.6-14.6 [facility] Comment on above: Performed By: #### L 100.0100 ####[facility] [address] [place], [address] Hematocrit (Bld) [Volume fraction] 25.2 % Low 40-54 [facility] Comment on above: Performed By: #### L 100.0100 ####[facility] [address] [place], [address] Hemoglobin (Bld) [Mass/Vol] 7.7 g/dL Low 13.0-16.5 [facility] Comment on above: Performed By: #### L 100.0100 ####[facility] [address] [place], [address] IG% 0.800 Normal 0.0-0.9 [facility] Comment on above: Result Comment: IG% - Immature Granulocytes (promyelocytes, myelocytes andmetamyelocytes) > 1% indicates that a LEFT SHIFT is Present. Performed By: #### L 100.0100 ####[facility] [address] [place], [address] Lymphocytes/100 WBC (Bld) 15.1 % Low 19-41 [facility] Comment on above: Performed By: #### L 100.0100 ####[facility] [address] [place], [address] MCH (RBC) [Entitic mass] 23.5 pg Low 27.0-32.0 [facility] Comment on above: Performed By: #### L 100.0100 ####[facility] [address] [place], [address] MCHC (RBC) [Mass/Vol] 30.6 g/dL Low 32-36 [facility] Comment on above: Performed By: #### L 100.0100 ####[facility] [address] [place], [address] MCV (RBC) [Entitic vol] 77.1 fL Low 80-94 [facility] Comment on above: Performed By: #### L 100.0100 ####[facility] [address] [place], [address] Monocytes/100 WBC (Bld) 10.3 % High 0-10 [facility] Comment on above: Performed By: #### L 100.0100 ####[facility] [address] [place], [address] Neutrophils/100 WBC (Bld) 72.1 % High 47-70 [facility] Comment on above: Performed By: #### L 100.0100 ####[facility] [address] [place], [address] Nucleated RBC (Bld) [#/Vol] 0 10*3/uL Normal 0-5 [facility] Comment on above: Performed By: #### L 100.0100 ####[facility] [address] [place], [address] Platelet mean volume (Bld) [Entitic vol] 9.7 fL Normal 6.2-12.0 [facility] Comment on above: Performed By: #### L 100.0100 ####[facility] [address] [place], [address] Platelets (Bld) [#/Vol] 278 10*3/uL Normal 150-450 [facility] Comment on above: Performed By: #### L 100.0100 ####[facility] [address] [place], [address] RBC (Bld) [#/Vol] 3.27 10*6/uL Low 4.6-6.[address] [facility] Comment on above: Performed By: #### L 100.0100 ####[facility] [address] [place], [address] RDW SD 49.2 fl High 35.1-43.9 [facility] Comment on above: Performed By: #### L 100.0100 ####[facility] [address] [place], [address] WBC (Bld) [#/Vol] 9.1 10*3/uL Normal 4.4-11.0 [facility] Comment on above: Performed By: #### L 100.0100 ####[facility] [address] [place], [address] Eosinophil percentageOrdered By: Kelton Blakely on 07-13-2024 Eosinophils/100 WBC (Bld) 1.4 % 0-5 [facility] Erythrocyte distribution wid th (RBC) [Ratio]Ordered By: Kelton Blakely on 07-13-2024 Erythrocyte distribution width (RBC) [Entitic vol] 49.2 fL High 35.1-43.9 [facility] Erythrocyte distribution wid th ratioOrdered By: Keltondiego Blakely on 07-13-2024 Erythrocyte distribution width (RBC) [Ratio] 17.7 % High 11.6-14.6 [facility] Erythrocyte distribution wid th standard deviationOrdered By: Kelton Blakely on 07-13-2024 Erythrocyte distribution width (RBC) [Ratio] 49.2 fl High 35.1-43.9 [facility] Hematocrit Auto (Bld) [Volum e fraction]Ordered By: Kelton Blakely on 07-13-2024 Hematocrit (Bld) [Volume fraction] 25.2 % Low 40-54 [facility] Hemoglobinon 07-13-2024 Hemoglobin (Bld) [Mass/Vol] 7.5 g/dL Low 13.0-16.5 [facility] Comment on above: Performed By: #### L 100.1300 ####[facility] [facility] [address] [place], [place], [id number] Hemoglobin measurementOrdere d By: Madeleine Centeno on 07-13-2024 Hemoglobin (Bld) [Mass/Vol] 7.5 g/dL Low 13.0-16.5 [facility] Immature granulocytes/100 WB C Auto (Bld)Ordered By: Kelton Blakely on 07-13-2024 Immature granulocytes/100 WBC (Bld) 0.800 % 0.0-0.9 [facility] Comment on above: IG% - Immature Granu locytes (promyelocytes, myelocytes and metamyelocytes) > 1% indicates that a LEFT SHIFT is Present. Lymphocytes Auto (Unsp spec) [#/Vol]Ordered By: Kelton Blakely on 07-13-2024 Lymphocytes (Bld) [#/Vol] 1.37 10*3/uL 0.83-4.51 [facility] Lymphocytes/100 WBC Auto (Un sp spec)Ordered By: Kelton Blakely on 07-13-2024 Lymphocytes/100 WBC (Bld) 15.1 % Low 19-41 [facility] MCV (mean corpuscular volume ) determinationOrdered By: Kelton Blakely on 07-13-2024 MCV (RBC) [Entitic vol] 77.1 fL Low 80-94 [facility] Mean corpuscular hemoglobin (MCH) determinationOrdered By: Kelton Blakely on 07-13-2024 MCH (RBC) [Entitic mass] 23.5 pg Low 27.0-32.0 [facility] Mean corpuscular hemoglobin concentration (MCHC) determinationOrdered By: Kelton Blakely on 07-13-2024 MCHC (RBC) [Mass/Vol] 30.6 g/dL Low 32-36 [facility] Mean platelet volume determi nationOrdered By: Kelton Blakely on 07-13-2024 Platelet mean volume (Bld) [Entitic vol] 9.7 fL 6.2-12.0 [facility] Monocyte percentageOrdered B y: Kelton Blakely on 07-13-2024 Monocytes/100 WBC (Bld) 10.3 % High 0-10 [facility] Neutrophil percentageOrdered By: Keltondiego Blakely on 07-13-2024 Neutrophils/100 WBC (Bld) 72.1 % High 47-70 [facility] Nucleated red blood cell per centageOrdered By: Kelton Rowleyey on 07-13-2024 Nucleated RBC/100 WBC (Bld) [Ratio] 0 % 0-5 [facility] Platelet countOrdered By: Trell Blakely on 07-13-2024 Platelets (Bld) [#/Vol] 278 10*3/uL 150-450 [facility] RBC Auto (Bld) [#/Vol]Ordere d By: Kelton Reddy on 07-13-2024 RBC (Bld) [#/Vol] 3.27 10*6/uL Low 4.6-6.[address] [facility] White blood cell (WBC) count Ordered By: Kelton Reddy on 07-13-2024 WBC (Bld) [#/Vol] 9.1 10*3/uL 4.4-11.0 [facility] ACT Activated Clotting Timeo n 07-12-2024 ACTk CLOT TIME 233 sec High 74-137 [facility] Comment on above: Performed By: #### L 9100.0100 ####[facility] [address] [place], [place], [id number] ACTk CLOT TIME 273 sec High 74-137 [facility] Comment on above: Performed By: #### L 9100.0100 ####[facility] [address] [place], [place], [id number] ACTk CLOT TIME 245 sec High 74-137 [facility] Comment on above: Performed By: #### L 9100.0100 ####[facility] [address] [place], [place], [address] Activated clotting timeOrder ed By: Keltondiego Blakely on 07-12-2024 Activated Clotting Time 233 sec High 74-137 [facility] MR/POSTOP.ANEon 07-12-2024 MR/POSTOP.ANE Normal [facility] MR/GAWLMQPV5uw 07-12-2024 MR/POSTOPAN2 Normal [facility] Operative Reporton Operative Report Normal [facility] Miscellaneous Lab Procedure 2on 07-08-2024 MISC LAB TEST 2 Normal [facility] Comment on above: Order Comment: Scann ed image report available in EMRDIRECT SEND OUT (STAT)Platelet function test Result Comment: TEST RESULTS LIMITSPlatelet Function Test Collagen/Epinephrine 85 80-184seconds Collagen/ADP 72 56-102seconds Platelet Function Interp See Below Normal Platelet Function __ TESTING PERFORMED AT [employer]. ORIGINAL REPORTON FILE IN LAB CONTAINS ADDITIONAL TEST SITE INFORMATION. Performed By: #### L 801.1543 ####[facility] [address] [place], [address] Miscellaneous procedureOrder ed By: Madeleine Centeno on 07-07-2024 Miscellaneous Test See comment [facility] Comment on above: TEST RESULTS LIMITSP latelet Function Test Collagen/Epinephrine 85 80-184 seconds Collagen/ADP 72 56-102 seconds Platelet Function Interp See Below Normal Platelet Function __ TESTING PERFORMED AT [employer]. ORIGINAL REPORT ON FILE IN LAB CONTAINS ADDITIONAL TEST SITE INFORMATION. Type AND Screen - PAT ONLYon 07-07-2024 Ab SCREEN GEL Negative Normal [facility] Comment on above: Order Comment: Reaso n for Laboratory Test PRE-[id number](L) LEFT CAROTID ARTERY STENT (IN VOCATIONAL ADVISER WITH OR STAF Performed By: #### B TSPAT ####[facility] [address] [place], [address] MR/PAT.ANEon 06-28-2024 MR/PAT.ANE Normal [facility] MR/BMS.BVSon 06-27-2024 MR/BMS.BVS Normal [facility] Orthopedic Visit Reporton Orthopedic Visit Report Normal [facility] Elbow min 3 Viewson 06-16-19 25 Elbow min 3 Views Normal [facility] Cardiac Cath Diagnosticon Cardiac Cath Diagnostic Normal [facility] Cardiac catheterization repo rtOrdered By: Darryn Bowens on 06-13-2024 Cardiac catheterization study [facility] Imaging Services [address] [place] [address] Cardiac Cath Diagnostic MR#: [id number] Acct: [id number] Name: JOHNNIE QUIJANO Rep #:[id number] : 1940 84 From: Darryn Bowens MD PCP: Dr. J Luis Mcgill MD Status:REG S DC Patient Name: JOHNNIE QUIJANO Study Date: 06/13/2024 Performing: Darryn Bowens MD Ht: 172.72 inches 438.7088 cm : 1940 Wt: 71.2 lbs 32.3 kg Age: 84 Gender: male BSA: 2.59 PROCEDURE(S) PERFORMED DC01-(74812)LHC/COR/LV CLINICAL PROFILE AND INDICATIONS Indications: Suspected CAD Heart Failure: None Stress/Imaging Date: 03/08/25Stress Test with SPECT MPI: Negative CAD Presentations: Stable angina. 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 Uncontrolled high blood pressure is present. RECOMMENDATIONS Aggressive medical therapy with blood pressure control. DESCRIPTION OF PROCEDURE The patient arrived to the procedure lab. The risks and benefits of the procedure as well as a full description of our services here and current unavailability of surgical backup were fully explained to the patient and/or their significant other prior to the catheterization. The Timeout was completed, verifying the correct patient and procedure. The patient's procedural site was prepped and draped in the usual fashion. Local anesthetic was given subcutaneously to right radial region with Lidocaine 2%. Using a modified Seldinger technique, arterial access was obtained via the right radial artery, a 6Fr sheath was inserted. Right Coronary Artery selective angiography was then performed in multiple views using a 5 Fr. 4.0 Bledsoe catheter. Left Coronary Artery selective angiography was performed in multiple views using a 5 Fr. 4.0 Bledsoe catheter. Left Ventriculography was performed in RILEY projection using a 5 Fr. Pigtail catheter. Simultaneous pressures were then recorded. CORONARY ANGIOGRAPHY LEFT HEART ASSESSMENT Left Ventricular Ejection Fraction: by LV Gram 60 % Normal LV wall motion Normal Left Ventricular systolic function LEFT MAIN: Dual ostium LEFT ANTERIOR DESCENDING ARTERY: Moderate luminal irregularities up to 50% CIRCUMFLEX ARTERY: Nondominant small vessel with 2 obtuse marginal branches and a ramus medianus with minimal disease. RIGHT CORONARY ARTERY: Mild calcification Mild luminal irregularities less than 30% COMPLICATIONS No Complications PROCEDURE MEDICATIONS Fentanyl 50 mcg IV Versed 1 mg IV Oxygen: 2 L/min via nasal cannula Heparin given IA 06/13/2024 10:21:39 Verapamil 2.5mg, Ntg 100mcgs, 3000 units of Heparin given IA 06/13/2024 10:21:39 SUMMARY OF HEMODYNAMIC DATA Time AIR REST ECG 08:38:33 AO 179/79 (119) SA 10:30:22 LV 191/17, 35 10:37:29 LV 189/16, 38 10:37:43 LV 199/19, 34 10:37:58 LV 168/20, 32 10:38:06 LVp 177/18, 39 10:38:10 AOp 178/74 (117) 10:38:17 Signed By Darryn Bowens MD On 06/13/2024 10:57:54 Darryn Bowens MD 06/13/24 1059 Date _ Darryn Bowens MD Cosigner Signature: Date (if indicated) CC: Dr. Darryn Bowens MD; Dr. J Luis Mcgill MD ~ Date Dictated: 06/13/24 1019 Date Transcribed: 06/13/24 1057 [employer] Service Supervisor: [place] Signed [facility] Work Phone: MR/BMS.BVSon 06-03-2024 MR/BMS.BVS Normal [facility] Magnetic resonance imaging r eportOrdered By: Aleksander Pagan on 05-31-2024 Study report [facility] Imaging Services [address], [place] [address] Spine Cervical (Routine) MR#: [id number] Acct: [id number] Name: JOHNNIE QUIJANO Rep #: [id number] : 1940 M 84 From: Megan Pagan MD PCP: Dr. J Luis Mcgill MD Status: REG C JANIA Study:Spine Cervical (Routine) Date of Exam: 05/30/24 Exam# [id number] Ordering Dr: Randal Shaffer MD PROCEDURE: SPINE CERVICAL (ROUTINE) REASON FOR EXAM: PARASTHESIA OF SKIN TECHNIQUE: Cervical spine MRI without intravenous gadolinium-based contrast. CONTRAST: COMPARISON: 05/23/2024 and prior FINDINGS: Cervical vertebral body heights are preserved. No suspicious marrow signal abnormality. Similar T1 bright likely vertebral body hemangioma within the T2 vertebral body. Trace cervicothoracic dextroscoliosis. Straightening of the normal cervical lordosis, likely degenerative or positional, similar to prior. Ankylosis of the C3-C4 vertebral bodies is also similar. Similar trace likely degenerative anterolisthesis at C7-T1. Unremarkable cord signal. C2-3: Small posterior central disc protrusion. Facet arthropathy, advanced on the left. No significant spinal canal or foraminal stenosis. C3-4: Ankylosis as above. Central and left paracentral osteophyte contacting the ventral cord. Facet arthropathy. Mild focal spinal canal stenosis. Mild/moderate bilateral foraminal stenosis, pqwr-fwjrmtp-takt-righ t. C4-5: Tiny posterior central disc protrusion contacting the ventral cord. Smallposterior disc/osteophyte complexes, largest on the right in the subarticular and foraminal region. Uncovertebral and facet arthropathy. Mild focal spinal canal stenosis. Severe right and mild/moderate left foraminal stenosis. C5-6: Diffuse disc bulging, greatest in the bilateral subarticular/foraminal regions. Mild spinal canal stenosis. Facet/uncovertebral arthropathy, greater on the right. Severe right and mild/moderate left foraminal stenosis. C6-7: Diffuse disc bulging, again greatest in the subarticular and foraminal regions. Facet/uncovertebral arthropathy. Ncwrafei-mm-lzpvun bilateral foraminal stenosis. Mild focal spinal canal stenosis. C7-T1: Disc height loss without significant disc bulging. No significant focal spinal canal stenosis. Facet/uncovertebral arthropathy, greater on the right. Moderate right and mild left foraminal stenosis. T1-T2: Diffuse disc bulging with superimposed right paracentral disc protrusion exerting some mass effect on the spinal cord without direct contact currently. Overall mild focal spinal canal stenosis. Facet/uncovertebral arthropathy. Mild/moderate right and moderate left foraminal stenosis. Other: Disc bulging at the T2-T3 level is incompletely imaged. 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 MRI/Spine Cervical (Routine) IMPRESSION: 1. Variable multilevel cervical spondylosis as above. Variable foraminal stenoses, up to severe on the right from C4-C6 and ssqcgyhy-jq-uuhuro bilaterally at C6-C7. No high-grade spinal canal stenosis. 2. Additional description as above. Reading Location: [id number] CC: Dr. Heraclio Shaffer MD; Dr. J Luis Mcgill MD ~ T[employer] Service Supervisor: Signed [facility] Spine Cervical (Routine)on 0 05-30-2024 Spine Cervical (Routine) Normal [facility] Carotid Duplex Ultrasoundon 05-25-2024 Carotid Duplex Ultrasound Normal [facility] Duplex ultrasound of carotid artery reportOrdered By: Kelton Blakely on 05-25-2024 Study report [facility] Cardi[facility] Services [address] [place] [address] Carotid Duplex Ultrasound 05/25/24817 MR#: [id number] Acct: [id number] Name: JOHNNIE QUIJANO Rep #:[id number] : 1940 84 From: Kelton Urrutia Attending Dr: Dr. J Luis Mcgill MD Status: REG CLI Ordering Dr: J Luis Mcgill MD Date: 08/14 Location: [facility] Sex: M C Admitted: Reason For Study Reason For Study: Lt Carotid Stenosis / CVA Rt. Velocities/BP Lt. Velocities/BP Prox CCA 104.5/23.3 cm/sec. Prox CCA 99.6/17.1 cm/sec. Mid CCA 102.3/25.5 cm/sec. Mid CCA 72.4/17.6 cm/sec. Dist CCA 102.3/23.3 cm/sec. Dist CCA 58.2/12.8 cm/sec. Prox ICA 124.2/27.7 cm/sec. Prox ICA 424.0/147.2 cm/sec. Mid ICA 102.3/25.5 cm/sec. Mid ICA 151.2/47.6 cm/sec. Dist ICA 91.3/25.5 cm/sec. Dist ICA 78.0/23.2 cm/sec. Rt. ICA/CCA = 1.2. Lt. ICA/CCA = 5.9. Prox ECA 130.8/12.3 cm/sec. Prox ECA 320.1/33.7 cm/sec. Rt. Vert. 40.2/10.6 cm/sec. Lt. Vert. 58.2/13.8 cm/sec. Right Extracranial There is homogeneous, smooth atherosclerotic plaque noted in the right common carotid artery. There is heterogeneous, irregular atherosclerotic plaque noted in the right internal carotid artery. There is heterogeneous, irregular atherosclerotic plaque noted in the right external carotid artery. Antegrade flow is noted in the right vertebral artery. Left Extracranial There is homogeneous, smooth atherosclerotic plaque noted in the left common carotid artery. There is heterogeneous, irregular atherosclerotic plaque noted in the left internal carotid artery. There is heterogeneous, irregular atherosclerotic plaque noted in the left external carotid artery. Antegrade flowis noted in the left vertebral artery. Procedure Carotid Duplex 17303. This is a Carotid Duplex examination using B-mode, color flow and specral Doppler. The exam was diagnostic. Exam performed in department. VL/Carotid Duplex Ultrasound Interpretation Summary Mild (<50%) stenosis right extracranial internal carotid. 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 Patent and antegrade vertebrals bilaterally. Ordering Physician: J Luis Mcgill Chi Referring Physician: J Luis Mcgill Chi Performed By: Matt Napoles, T 05/25/24 1634 Date _ Kelton Blakely MD CC: Dr. J Luis Mcgill MD ~ Date Dictated: 05/25/2418 Date Transcribed: 05/25/241633 [employer] Service Supervisor: Signed [facility] Work Phone: CTA Head AND Neck W/ Contras ton 05-23-2024 CTA Head AND Neck W/ Contrast Normal [facility] 12 Lead EKG performed by BMS on 05-20-2024 12 Lead EKG performed by BMS Normal [facility] Activated partial thrombopla stin time (aPTT) in platelet poor plasma by coagulation aOrdered By: Addis Mcdaniels on 05-20-2024 aPTT Coag (PPP) [Time] 26.1 s 24.1-36.2 [facility] CPK Total, Creatine Kinaseon 05-20-2024 CPK TOTAL 36 U/L Normal 24-195 [facility] Comment on above: Performed By: #### L 100.0100, L3600.5100, L501.3620, L500.2500, L501.4020 ####[facility] [address] [place], [address] Cardiology Visit Reporton Cardiology Visit Report Normal [facility] Chest PA and Lateralon 05-20 Chest PA and Lateral Normal [facility] Echocardiogram study reportO rdered By: Angeles Ervin on 05-20-2024 Study report [facility] [address] [place] [address] Echo Complete 05/18/24 0901 MR#: [id number] Acct: [id number] Name: JOHNNIE QUIJANO Rep #:[id number] : 1940 84 From: Angeles villanueva MD Attending Dr: Dr. J Luis Mcgill MD Status: REG CLI Ordering Dr: J Luis Mcgill MD Date: Location: [facility] Sex: M C Admitted: Reason For Study Reason For Study: CHEST PAIN Procedure This was a 2D Doppler, Color Flow transthoracic echocardiogram. Exam performed in department. Left Ventricle Normal LV size. The estimated ejection fraction is 65 %. No evidence for diastolic dysfunction. No regional wall motion abnormalities noted. Right Ventricle Normal RV size. Normal systolic function. Atria The left and right atria are normal. No doppler evidence for ASD. Mitral Valve There is no mitral valve stenosis. Trivial mitral valve insufficiency. Tricuspid Valve There is no tricuspid stenosis. No tricuspid valve insufficiency. Aortic Valve Trisinus/trileaflet aortic valve. Aortic sclerosis, no stenosis. There is no aortic stenosis. No aortic valve insufficiency. Pulmonic Valve There is no pulmonic valvular stenosis. Trivial pulmonic valve insufficiency. Great Vessels Normal sized aortic root. Pericardium/Pleural No pericardial effusion. MMode/2D Measurements & Calculations LVIDd: 3.9 cm IVSd: 1.3 cm Ao root diam: 3.3 cm LVIDs: 2.7 cm LVPWd: 1.3 cm RVDd: 2.9 cm FS: 31.5 % LAV(MOD-bp): 27.0 ml LVAd ap4: 24.8 cm2 SV(MOD-sp4): 41.6 ml LAV(MOD-bp) Indexed: 14.7 ml/m2 LVLd ap4: 7.5 cm SI(MOD-sp4): 22.6 ml/m2 LAV(MOD-sp2): 24.9 ml EDV(MOD-sp4): 69.1 ml LAV(MOD-sp4): 26.7 ml EDV(sp4-el): 69.2 ml LVAs ap4: 14.0 cm2 LVLs ap4: 6.5 cm ESV(MOD-sp4): 27.6 ml ESV(sp4-el): 25.8 ml EF(MOD-sp4): 60.1 % EF(sp4-el): 62.7 % SV(sp4-el): 43.4 ml LA A4 area: 13.3 cm2 LA dimension(2D): 3.0 cm RA A4 area: 11.7 cm2 TAPSE: 2.2 cm Time Measurements MV dec time: 0.22 sec Doppler Measurements & Calculations MV E max marino: 54.7 cm/sec Lat Peak E' Marino: 9.1 cm/sec Med Peak E' Marino: 7.2 cm/sec MV A max marino: 93.3 cm/sec E/E' lat: 6.0 E/E' med: 7.6 MV E/A: 0.59 Ao V2 max: 189.3 cm/sec LV V1 max: 92.1 cm/sec PA V2 max: 113.3 cm/sec Ao max P.3 mmHg LV V1 max P.4 mmHg ECHO/Echo Complete Interpretation Summary The estimated ejection fraction is 65 %. No evidence for diastolic dysfunction. Trivial mitral valve insufficiency. Ordering Physician: J Luis Mcgill Chi Referring Physician: J Luis Mcgill Chi Performed By: Meghna Solis, JASMYNE 05/20/24 1305 Date _ Angeles Ervin MD CC: Dr. J Luis Mcgill MD ~ Date Dictated: 05/18/24 09 Date Transcribed: 05/20/24 1305 [employer] Service Supervisor: Signed [facility] Work Phone: [phone] 05-20-2024 TROPONIN-I HS 24 pg/mL Normal 3.0-78.0 [facility] Comment on above: Order Comment: 1 Result Comment: Hadley craig Note: New Test Units and Gender Specific Reference Ranges. For more information see Policy Stat Procedure [place] High Sensitivity Troponin (TNIH) and attachments. Performed By: #### L 100.0100, L3600.5100, L501.3620, L500.2500, L501.4020 ####[facility] [address] [place], [address] Myoglobin, Serumon 5 Myoglobin, Ser 40 ng/mL Normal 28-72 [facility] Comment on above: Result Comment: Perf ormed at: [facility] [address] [id number] Director: Terrence Samson PhD, Phone: [phone] Performed By: #### L 100.0100, L3600.5100, L501.3620, L500.2500, L501.4020 ####[facility] [address] [place], [place], [id number] Partial Thromboplast Timeon 05-20-2024 aPTT Coag (Bld) [Time] 26.1 s Normal 24.1-36.2 [facility] Comment on above: Performed By: #### L 300.4319 ####[facility] [address] [place], [address] aPTT Coag (PPP) [Time]Ordere d By: Addis Mcdaniels on 05-20-2024 aPTT Coag (Bld) [Time] 26.1 s 24.1-36.2 [facility] Absolute lymphocyte countOrd ered By: J Luis Mcgill on 05-19-2024 Lymphocytes Auto (Unsp spec) [#/Vol] 0.98 10*3/uL 0.83-4.51 [facility] Absolute neutrophil countOrd ered By: J Luis Mcgill on 05-19-2024 Neutrophils (Bld) [#/Vol] 8.2 10*3/uL High 2.0-7.7 [facility] Automated lymphocyte count a s percentage of total leukocytesOrdered By: J Luis Mcgill on 05-19-2024 Lymphocytes/100 WBC Auto (Unsp spec) 9.5 % Low 19-41 [facility] BUN/creatinine ratioOrdered By: J Luis Mcgill on 05-19-2024 Urea nitrogen/Creatinine [Mass ratio] 10.7 mg/mg 10-20 [facility] Basic Metabolic Profile (BMP )on 05-19-2024 Anion gap [Moles/Vol] 10 mmol/L Normal 5-15 [facility] Comment on above: Performed By: #### L 100.0100, L3600.5100, L501.3620, L500.2500, L501.4020 ####[facility] [address] [place], [address] BUN/CRE 10.7 RATIO Normal 10-20 [facility] Comment on above: Performed By: #### L 100.0100, L3600.5100, L501.3620, L500.2500, L501.4020 ####[facility] [address] [place], [address] Calcium [Mass/Vol] 9.1 mg/dL Normal 7.6-11.0 [facility] Comment on above: Performed By: #### L 100.0100, L3600.5100, L501.3620, L500.2500, L501.4020 ####[facility] [address] [place], [address] Chloride [Moles/Vol] 106 mmol/L Normal 96-108 [facility] Comment on above: Performed By: #### L 100.0100, L3600.5100, L501.3620, L500.2500, L501.4020 ####[facility] [address] [place], [address] CO2 [Moles/Vol] 24.3 mmol/L Normal 22.0-29.0 [facility] Comment on above: Performed By: #### L 100.0100, L3600.5100, L501.3620, L500.2500, L501.4020 ####[facility] [address] [place], [address] Creatinine [Mass/Vol] 0.9 mg/dL Normal 0.8-1.3 [facility] Comment on above: Performed By: #### L 100.0100, L3600.5100, L501.3620, L500.2500, L501.4020 ####[facility] [address] [place], [address] GFR/1.73 sq M.predicted among non-blacks MDRD (S/P/Bld) [Vol rate/Area] 83 mL/min/{1.73_m2} Normal >60 [facility] Comment on above: Result Comment: mL/m in/1.73m2 CKD-EPI Creatinine Equation (2020) Performed By: #### L 100.0100, L3600.5100, L501.3620, L500.2500, L501.4020 ####[facility] [address] [place], [address] Glucose [Mass/Vol] 103 mg/dL High 70-99 [facility] Comment on above: Performed By: #### L 100.0100, L3600.5100, L501.3620, L500.2500, L501.4020 ####[facility] [address] [place], [address] Potassium [Moles/Vol] 4.2 mmol/L Normal 3.3-5.1 [facility] Comment on above: Performed By: #### L 100.0100, L3600.5100, L501.3620, L500.2500, L501.4020 ####[facility] [address] [place], [address] Sodium [Moles/Vol] 140 mmol/L Normal 133-145 [facility] Comment on above: Performed By: #### L 100.0100, L3600.5100, L501.3620, L500.2500, L501.4020 ####[facility] [address] [place], [address] Urea nitrogen [Mass/Vol] 10 mg/dL Normal 4-19 [facility] Comment on above: Performed By: #### L 100.0100, L3600.5100, L501.3620, L500.2500, L501.4020 ####[facility] [address] [place], [address] Basophil percentageOrdered B y: J Luis Mcgill on 05-19-2024 Basophils/100 WBC (Bld) 0.5 % 0-1 [facility] CBC W/Diff, Automatedon 04-24 Absolute Lymph 0.98 X10 3/uL Normal 0.83-4.51 [facility] Comment on above: Performed By: #### L 100.0100, L3600.5100, L501.3620, L500.2500, L501.4020 ####[facility] [address] [place], [address] Absolute Neut 8.2 X10 3/uL High 2.0-7.7 [facility] Comment on above: Performed By: #### L 100.0100, L3600.5100, L501.3620, L500.2500, L501.4020 ####[facility] [address] [place], [address] Basophils/100 WBC (Bld) 0.5 % Normal 0-1 [facility] Comment on above: Performed By: #### L 100.0100, L3600.5100, L501.3620, L500.2500, L501.4020 ####[facility] [address] [place], [address] Eosinophils/100 WBC (Bld) 1.4 % Normal 0-5 [facility] Comment on above: Performed By: #### L 100.0100, L3600.5100, L501.3620, L500.2500, L501.4020 ####[facility] [address] [place], [address] Erythrocyte distribution width (RBC) [Ratio] 17.1 % High 11.6-14.6 [facility] Comment on above: Performed By: #### L 100.0100, L3600.5100, L501.3620, L500.2500, L501.4020 ####[facility] [address] [place], [address] Hematocrit (Bld) [Volume fraction] 35.1 % Low 40-54 [facility] Comment on above: Performed By: #### L 100.0100, L3600.5100, L501.3620, L500.2500, L501.4020 ####[facility] [address] [place], [address] Hemoglobin (Bld) [Mass/Vol] 10.3 g/dL Low 13.0-16.5 [facility] Comment on above: Performed By: #### L 100.0100, L3600.5100, L501.3620, L500.2500, L501.4020 ####[facility] [address] [place], [address] IG% 1.200 High 0.0-0.9 [facility] Comment on above: Result Comment: IG% - Immature Granulocytes (promyelocytes, myelocytes andmetamyelocytes) > 1% indicates that a LEFT SHIFT is Present. Performed By: #### L 100.0100, L3600.5100, L501.3620, L500.2500, L501.4020 ####[facility] [address] [place], [address] Lymphocytes/100 WBC (Bld) 9.5 % Low 19-41 [facility] Comment on above: Performed By: #### L 100.0100, L3600.5100, L501.3620, L500.2500, L501.4020 ####[facility] [address] [place], [address] MCH (RBC) [Entitic mass] 23.0 pg Low 27.0-32.0 [facility] Comment on above: Performed By: #### L 100.0100, L3600.5100, L501.3620, L500.2500, L501.4020 ####[facility] [address] [place], [address] MCHC (RBC) [Mass/Vol] 29.3 g/dL Low 32-36 [facility] Comment on above: Performed By: #### L 100.0100, L3600.5100, L501.3620, L500.2500, L501.4020 ####[facility] [address] [place], [address] MCV (RBC) [Entitic vol] 78.3 fL Low 80-94 [facility] Comment on above: Performed By: #### L 100.0100, L3600.5100, L501.3620, L500.2500, L501.4020 ####[facility] [address] [place], [address] Monocytes/100 WBC (Bld) 8.0 % Normal 0-10 [facility] Comment on above: Performed By: #### L 100.0100, L3600.5100, L501.3620, L500.2500, L501.4020 ####[facility] [address] [place], [address] Neutrophils/100 WBC (Bld) 79.4 % High 47-70 [facility] Comment on above: Performed By: #### L 100.0100, L3600.5100, L501.3620, L500.2500, L501.4020 ####[facility] [address] [place], [address] Nucleated RBC (Bld) [#/Vol] 0 10*3/uL Normal 0-5 [facility] Comment on above: Performed By: #### L 100.0100, L3600.5100, L501.3620, L500.2500, L501.4020 ####[facility] [address] [place], [address] Platelet mean volume (Bld) [Entitic vol] 9.4 fL Normal 6.2-12.0 [facility] Comment on above: Performed By: #### L 100.0100, L3600.5100, L501.3620, L500.2500, L501.4020 ####[facility] [address] [place], [address] Platelets (Bld) [#/Vol] 438 10*3/uL Normal 150-450 [facility] Comment on above: Performed By: #### L 100.0100, L3600.5100, L501.3620, L500.2500, L501.4020 ####[facility] [address] [place], [address] RBC (Bld) [#/Vol] 4.48 10*6/uL Low 4.6-6.[address] [facility] Comment on above: Performed By: #### L 100.0100, L3600.5100, L501.3620, L500.2500, L501.4020 ####[facility] [address] [place], [address] RDW SD 47.6 fl High 35.1-43.9 [facility] Comment on above: Performed By: #### L 100.0100, L3600.5100, L501.3620, L500.2500, L501.4020 ####[facility] [address] [place], [place], [address] WBC (Bld) [#/Vol] 10.4 10*3/uL Normal 4.4-11.[address] [facility] Comment on above: Performed By: #### L 100.0100, L3600.5100, L501.3620, L500.2500, L501.4020 ####[facility] [address] [facility] [place], [address] Carbon dioxide measurementOr dered By: J Luis Mcgill on 05-19-2024 CO2 [Moles/Vol] 24.3 mmol/L 22.0-29.0 [facility] Chloride measurementOrdered By: J Luis Mcgill on 05-19-2024 Chloride [Moles/Vol] 106 mmol/L 96-108 [facility] Creatinine [Moles/Vol]Ordere d By: J Luis Mcgill 05-19-2024 Creatinine [Mass/Vol] 0.9 mg/dL 0.8-1.3 [facility] Eosinophil percentageOrdered By: J Luis Mcgill 05-19-2024 Eosinophils/100 WBC (Bld) 1.4 % 0-5 [facility] Erythrocyte distribution wid th ratioOrdered By: J Luis Mcgill 05-19-2024 Erythrocyte distribution width (RBC) [Ratio] 17.1 % High 11.6-14.6 [facility] Erythrocyte distribution wid th standard deviationOrdered By: J Luis Mcgill 05-19-2024 Erythrocyte distribution width (RBC) [Entitic vol] 47.6 fL High 35.1-43.9 [facility] Erythrocyte distribution width (RBC) [Ratio] 47.6 fl High 35.1-43.9 [facility] GFR/1.73 sq M.predicted anastasiia g non-blacks MDRD (S/P/Bld) [Vol rate/Area]Ordered By: J Luis Mcgill on 05-19-2024 Estimated GFR (MDRD) Non-Af Amer 83 >60 [facility] Comment on above: mL/min/1.73m2 CKD-EP I Creatinine Equation (2020) Glomerular filtration rate ( GFR) estimation/1.73 sq m using serum, plasma, or whole bOrdered By: J Luis Mcgill on 05-19-2024 GFR/1.73 sq M.predicted among non-blacks MDRD (S/P/Bld) [Vol rate/Area] 83 mL/min/{1.73_m2} >60 [facility] Comment on above: mL/min/1.73m2 CKD-EP I Creatinine Equation (2020) Hematocrit Auto (Bld) [Volum e fraction]Ordered By: J Luis Mcgill on 05-19-2024 Hematocrit (Bld) [Volume fraction] 35.1 % Low 40-54 [facility] Hemoglobin measurementOrdere d By: [facility] Hemoglobin (Bld) [Mass/Vol] 10.3 g/dL Low 13.0-16.5 [facility] Immature granulocytes/100 WB C Auto (Bld)Ordered By: [facility] on 05-19-2024 Immature granulocytes/100 WBC (Bld) 1.200 % High 0.0-0.9 [facility] Comment on above: IG% - Immature Granu locytes (promyelocytes, myelocytes and metamyelocytes) > 1% indicates that a LEFT SHIFT is Present. Lymphocytes Auto (Unsp spec) [#/Vol]Ordered By: [facility] 05-19-2024 Lymphocytes (Bld) [#/Vol] 0.98 10*3/uL 0.83-4.51 [facility] Lymphocytes/100 WBC Auto (Un sp spec)Ordered By: [facility] 05-19-2024 Lymphocytes/100 WBC (Bld) 9.5 % Low 19-41 [facility] MCV (mean corpuscular volume ) determinationOrdered By: J Luis Artem 05-19-2024 MCV (RBC) [Entitic vol] 78.3 fL Low 80-94 [facility] Mean corpuscular hemoglobin (MCH) determinationOrdered By: J Luis Artem 05-19-2024 MCH (RBC) [Entitic mass] 23.0 pg Low 27.0-32.0 [facility] Mean corpuscular hemoglobin concentration (MCHC) determinationOrdered By: J Luis Artem 05-19-2024 MCHC (RBC) [Mass/Vol] 29.3 g/dL Low 32-36 [facility] Mean platelet volume determi nationOrdered By: J Luis Mcgill on 05-19-2024 Platelet mean volume (Bld) [Entitic vol] 9.4 fL 6.2-12.0 [facility] Monocyte percentageOrdered B y: J Luis Mcgill on 05-19-2024 Monocytes/100 WBC (Bld) 8.0 % 0-10 [facility] Neutrophil percentageOrdered By: J Luis Mcgill on 05-19-2024 Neutrophils/100 WBC (Bld) 79.4 % High 47-70 [facility] Nucleated red blood cell per centageOrdered By: J Luis Mcgill on 05-19-2024 Nucleated RBC/100 WBC (Bld) [Ratio] 0 % 0-5 [facility] Platelet countOrdered By: Wan Mcgill on 05-19-2024 Platelets (Bld) [#/Vol] 438 10*3/uL 150-450 [facility] RBC Auto (Bld) [#/Vol]Ordere d By: J Luis Mcgill on 05-19-2024 RBC (Bld) [#/Vol] 4.48 10*6/uL Low 4.6-6.[address] [facility] Serum glucose measurement (m ass/volume)Ordered By: J Luis Mcgill on 05-19-2024 Glucose [Mass/Vol] 103 mg/dL High 70-99 [facility] Serum myoglobin measurementO rdered By: J Luis Mcgill on 05-19-2024 Myoglobin [Mass/Vol] 40 ng/mL 28-72 [facility] Comment on above: Performed at: [address] [id number] Director: Terrence Samson PhD, Phone: [phone] Serum or plasma anion gap de termination (moles/volume)Ordered By: J Luis Mcgill on 05-19-2024 Anion gap [Moles/Vol] 10 mmol/L 5-15 [facility] Serum or plasma calcium mike urement (mass/volume)Ordered By: J Luis Mcgill on 05-19-2024 Calcium [Mass/Vol] 9.1 mg/dL 7.6-11.0 [facility] Serum or plasma creatine kin ase activityOrdered By: J Luis Mcgill on 05-19-2024 CK [Catalytic activity/Vol] 36 U/L 24-195 [facility] Serum or plasma creatinine m easurement (moles/volume)Ordered By: J Luis Mcgill on 05-19-2024 Creatinine [Moles/Vol] 0.9 mg/dL 0.8-1.3 [facility] Serum or plasma potassium me asurementOrdered By: J Luis Mcgill on 05-19-2024 Potassium [Moles/Vol] 4.2 mmol/L 3.3-5.1 [facility] Serum or plasma sodium measu rement (moles/volume)Ordered By: J Luis Mcgill on 05-19-2024 Sodium [Moles/Vol] 140 mmol/L 133-145 [facility] Serum or plasma urea nitroge n measurement (mass/volume)Ordered By: J Luis Mcgill on 05-19-2024 Urea nitrogen [Mass/Vol] 10 mg/dL -19 [facility] Troponin IOrdered By: J Luis mason on 05-19-2024 Troponin I 24 pg/mL 3.0-78.0 [facility] Comment on above: Please Note: New Aleja t Units and Gender Specific Reference Ranges. For more information see Policy Stat Procedure [place] High Sensitivity Troponin (TNIH) and attachments. Troponin I High Sensitivity 24 pg/mL 3.0-78.0 [facility] Comment on above: Please Note: New Aleja t Units and Gender Specific Reference Ranges. For more information see Policy Stat Procedure [place] High Sensitivity Troponin (TNIH) and attachments. White blood cell (WBC) count Ordered By: J Luis Mcgill on 05-19-2024 WBC (Bld) [#/Vol] 10.4 10*3/uL 4.4-11.[address] [facility] Echo Completeon 05-18-2024 Echo Complete Normal [facility] Influenza virus A and B and SARS-CoV-2 (COVID-19) and Respiratory syncytial virus RNAOrdered By: J Luis Mcgill on 05-09-2024 SARS-CoV-2 (COVID-19) RNA JOVANA+probe Ql (Unsp spec) [facility] M100.678on 05-09-2024 M100.678 Pending SARS-CoV-2 (COVID 19) Negative INFLUENZA A Negative INFLUENZA B Negative RSV PCR Negative Normal [facility] Comment on above: Performed By: #### M 100.678 ####[facility] [address] [place], [place], [id number] Brain without Contraston Brain without Contrast Normal [facility] 12 Lead EKG performed by BMS on 04-22-2024 12 Lead EKG performed by BMS Normal [facility] Cardiology Visit Reporton Cardiology Visit Report Normal [facility] Orthopedic Visit Reporton Orthopedic Visit Report Normal [facility] Stress Reporton 03-08-2024 Stress Report Normal [facility] Orthopedic Visit Reporton Orthopedic Visit Report Normal [facility] Myoglobin, Serumon Myoglobin, Ser 33 ng/mL Normal 28-72 [facility] Comment on above: Result Comment: Perf ormed at: - [facility] [place] [id number] Director: Terrence Samson PhD, Phone: [phone] Performed By: #### L 100.0100, L500.2500, L3600.5100, L501.3620, L501.4020 ####[facility] [address] [place], [place], [id number] Absolute neutrophil countOrd ered By: J Luis Mcgill on 02-22-2024 Neutrophils (Bld) [#/Vol] 8.5 10*3/uL High 2.0-7.7 [facility] Basic Metabolic Profile (BMP )on 02-22-2024 BUN/CRE 15.0 RATIO Normal 10-20 [facility] Comment on above: Order Comment: 1 Performed By: #### L 100.0100, L500.2500, L3600.5100, L501.3620, L501.4020 ####[facility] [address] [place], [address] CA,Total 9.1 mg/dL Normal 8.5-10.1 [facility] Comment on above: Order Comment: 1 Performed By: #### L 100.0100, L500.2500, L3600.5100, L501.3620, L501.4020 ####[facility] [address] [place], [address] Chloride [Moles/Vol] 107 mmol/L Normal 98-107 [facility] Comment on above: Order Comment: 1 Performed By: #### L 100.0100, L500.2500, L3600.5100, L501.3620, L501.4020 ####[facility] [address] [place], [address] CO2 [Moles/Vol] 28.0 mmol/L Normal 21.0-32.0 [facility] Comment on above: Order Comment: 1 Performed By: #### L 100.0100, L500.2500, L3600.5100, L501.3620, L501.4020 ####[facility] [address] [place], [address] Creatinine [Mass/Vol] 1.00 mg/dL Normal 0.70-1.30 [facility] Comment on above: Order Comment: 1 Result Comment: The validity of the calculated GFR GFRAA in patients over70 years has not been determined. Clinical correlation isessential. Performed By: #### L 100.0100, L500.2500, L3600.5100, L501.3620, L501.4020 ####[facility] [address] [place], [address] EST GFR - AA 91 mL/min Normal >60 [facility] Comment on above: Order Comment: 1 Result Comment: Afri can Turkish GFR Calc Performed By: #### L 100.0100, L500.2500, L3600.5100, L501.3620, L501.4020 ####[facility] [address] [place], [address] GAP 5 Normal 5-15 [facility] Comment on above: Order Comment: 1 Performed By: #### L 100.0100, L500.2500, L3600.5100, L501.3620, L501.4020 ####[facility] [address] [place], [address] GFR/1.73 sq M.predicted among non-blacks MDRD (S/P/Bld) [Vol rate/Area] 75 mL/min/{1.73_m2} Normal >60 [facility] Comment on above: Order Comment: 1 Result Comment: Non- GFR Calc Performed By: #### L 100.0100, L500.2500, L3600.5100, L501.3620, L501.4020 ####[facility] [address] [place], [address] Glucose [Mass/Vol] 109 mg/dL High 74-106 [facility] Comment on above: Order Comment: 1 Result Comment: Fast ing Glucose result from 100 to 125 mg/dLsuggests IMPAIRED HOMEOSTASIS per A.D.A. criteria. Performed By: #### L 100.0100, L500.2500, L3600.5100, L501.3620, L501.4020 ####[facility] [address] [place], [address] Potassium [Moles/Vol] 4.1 mmol/L Normal 3.5-5.1 [facility] Comment on above: Order Comment: 1 Performed By: #### L 100.0100, L500.2500, L3600.5100, L501.3620, L501.4020 ####[facility] [address] [place], [address] Sodium [Moles/Vol] 140 mmol/L Normal 136-145 [facility] Comment on above: Order Comment: 1 Performed By: #### L 100.0100, L500.2500, L3600.5100, L501.3620, L501.4020 ####[facility] [address] [place], [address] Urea nitrogen [Mass/Vol] 15 mg/dL Normal 7-18 [facility] Comment on above: Order Comment: 1 Performed By: #### L 100.0100, L500.2500, L3600.5100, L501.3620, L501.4020 ####[facility] [address] [place], [address] Basophil percentageOrdered B y: J Luis Mcgill on 02-22-2024 Basophils/100 WBC (Bld) 0.7 % 0-1 [facility] Blood urea nitrogen (BUN)/cr eatinine ratioOrdered By: J Luis Mcgill on 02-22-2024 Urea nitrogen/Creatinine [Mass ratio] 15.0 mg/mg 10-20 [facility] CBC W/Diff, Automatedon -2023 Absolute Lymph 0.99 X10 3/uL Normal 0.83-4.51 [facility] Comment on above: Performed By: #### L 100.0100, L500.2500, L3600.5100, L501.3620, L501.4020 ####[facility] [address] [place], [address] Absolute Neut 8.5 X10 3/uL High 2.0-7.7 [facility] Comment on above: Performed By: #### L 100.0100, L500.2500, L3600.5100, L501.3620, L501.4020 ####[facility] [address] [place], [address] Basophils/100 WBC (Bld) 0.7 % Normal 0-1 [facility] Comment on above: Performed By: #### L 100.0100, L500.2500, L3600.5100, L501.3620, L501.4020 ####[facility] [address] [place], [address] Eosinophils/100 WBC (Bld) 1.8 % Normal 0-5 [facility] Comment on above: Performed By: #### L 100.0100, L500.2500, L3600.5100, L501.3620, L501.4020 ####[facility] [address] [place], [address] Erythrocyte distribution width (RBC) [Ratio] 17.6 % High 11.6-14.6 [facility] Comment on above: Performed By: #### L 100.0100, L500.2500, L3600.5100, L501.3620, L501.4020 ####[facility] [address] [place], [address] Hematocrit (Bld) [Volume fraction] 37.6 % Low 40-54 [facility] Comment on above: Performed By: #### L 100.0100, L500.2500, L3600.5100, L501.3620, L501.4020 ####[facility] [address] [place], [address] Hemoglobin (Bld) [Mass/Vol] 11.0 g/dL Low 13.0-16.5 [facility] Comment on above: Performed By: #### L 100.0100, L500.2500, L3600.5100, L501.3620, L501.4020 ####[facility] [address] [place], [address] IG% 1.500 High 0.0-0.9 [facility] Comment on above: Result Comment: IG% - Immature Granulocytes (promyelocytes, myelocytes andmetamyelocytes) > 1% indicates that a LEFT SHIFT is Present. Performed By: #### L 100.0100, L500.2500, L3600.5100, L501.3620, L501.4020 ####[facility] [address] [place], [address] Lymphocytes/100 WBC (Bld) 9.1 % Low 19-41 [facility] Comment on above: Performed By: #### L 100.0100, L500.2500, L3600.5100, L501.3620, L501.4020 ####[facility] [address] [place], [address] MCH (RBC) [Entitic mass] 22.4 pg Low 27.0-32.0 [facility] Comment on above: Performed By: #### L 100.0100, L500.2500, L3600.5100, L501.3620, L501.4020 ####[facility] [address] [place], [address] MCHC (RBC) [Mass/Vol] 29.3 g/dL Low 32-36 [facility] Comment on above: Performed By: #### L 100.0100, L500.2500, L3600.5100, L501.3620, L501.4020 ####[facility] [address] [place], [address] MCV (RBC) [Entitic vol] 76.4 fL Low 80-94 [facility] Comment on above: Performed By: #### L 100.0100, L500.2500, L3600.5100, L501.3620, L501.4020 ####[facility] [address] [place], [address] Monocytes/100 WBC (Bld) 8.6 % Normal 0-10 [facility] Comment on above: Performed By: #### L 100.0100, L500.2500, L3600.5100, L501.3620, L501.4020 ####[facility] [address] [place], [address] Neutrophils/100 WBC (Bld) 78.3 % High 47-70 [facility] Comment on above: Performed By: #### L 100.0100, L500.2500, L3600.5100, L501.3620, L501.4020 ####[facility] [address] [place], [address] Nucleated RBC (Bld) [#/Vol] 0 10*3/uL Normal 0-5 [facility] Comment on above: Performed By: #### L 100.0100, L500.2500, L3600.5100, L501.3620, L501.4020 ####[facility] [address] [place], [address] Platelet mean volume (Bld) [Entitic vol] 9.5 fL Normal 6.2-12.0 [facility] Comment on above: Performed By: #### L 100.0100, L500.2500, L3600.5100, L501.3620, L501.4020 ####[facility] [address] [place], [address] Platelets (Bld) [#/Vol] 373 10*3/uL Normal 150-450 [facility] Comment on above: Performed By: #### L 100.0100, L500.2500, L3600.5100, L501.3620, L501.4020 ####[facility] [address] [place], [address] RBC (Bld) [#/Vol] 4.92 10*6/uL Normal 4.6-6.[address] [facility] Comment on above: Performed By: #### L 100.0100, L500.2500, L3600.5100, L501.3620, L501.4020 ####[facility] [address] [place], [address] RDW SD 48.0 fl High 35.1-43.9 [facility] Comment on above: Performed By: #### L 100.0100, L500.2500, L3600.5100, L501.3620, L501.4020 ####[facility] [address] [place], [address] WBC (Bld) [#/Vol] 10.9 10*3/uL Normal 4.4-11.[address] [facility] Comment on above: Performed By: #### L 100.0100, L500.2500, L3600.5100, L501.3620, L501.4020 ####[facility] [address] [place], [address] CPK Total, Creatine Kinaseon 02-22-2024 CPK TOTAL 36 U/L Low 39-308 [facility] Comment on above: Order Comment: 1 Performed By: #### L 100.0100, L500.2500, L3600.5100, L501.3620, L501.4020 ####[facility] [address] [facility] [place], [address] Carbon dioxide measurementOr dered By: J Luis Mcgill on 02-22-2024 CO2 [Moles/Vol] 28.0 mmol/L 21.0-32.0 [facility] Chloride measurementOrdered By: J Luis Mcgill on 02-22-2024 Chloride [Moles/Vol] 107 mmol/L 98-107 [facility] Eosinophil percentageOrdered By: J Luis Mcgill on 02-22-2024 Eosinophils/100 WBC (Bld) 1.8 % 0-5 [facility] Erythrocyte distribution wid th ratioOrdered By: J Luis Mcgill on 02-22-2024 Erythrocyte distribution width (RBC) [Ratio] 17.6 % High 11.6-14.6 [facility] Erythrocyte distribution wid th standard deviationOrdered By: J Luis Mcgill on 02-22-2024 Erythrocyte distribution width (RBC) [Entitic vol] 48.0 fL High 35.1-43.9 [facility] Estimated glomerular filtrat ion rate (GFR) AmericanOrdered By: J Luis Mcgill on 02-22-2024 Estimated GFR (MDRD) Amer 91 mL/min >60 [facility] Comment on above: GFR Calc Glomerular filtration rate ( GFR) estimationOrdered By: J Luis Mcgill on 02-22-2024 Estimated GFR (MDRD) Non-Af Amer 75 mL/min >60 [facility] Comment on above: Non- GFR Calc Glucose measurementOrdered B y: J Luis Mcgill on 02-22-2024 Glucose [Mass/Vol] 109 mg/dL High 74-106 [facility] Comment on above: Fasting Glucose resu lt from 100 to 125 mg/dL suggests IMPAIRED HOMEOSTASIS per A.D.A. criteria. Hematocrit Auto (Bld) [Volum e fraction]Ordered By: J Luis Mcgill on 02-22-2024 Hematocrit (Bld) [Volume fraction] 37.6 % Low 40-54 [facility] Hemoglobin measurementOrdere d By: J Luis Artem on 02-22-2024 Hemoglobin (Bld) [Mass/Vol] 11.0 g/dL Low 13.0-16.5 [facility] Immature granulocytes/100 WB C Auto (Bld)Ordered By: J Luis Artem on 02-22-2024 Immature granulocytes/100 WBC (Bld) 1.500 % High 0.0-0.9 [facility] Comment on above: IG% - Immature Granu locytes (promyelocytes, myelocytes and metamyelocytes) > 1% indicates that a LEFT SHIFT is Present. L501.4020on 02-22-2024 TROPONIN-I HS 15 pg/mL Normal 3.0-78.0 [facility] Comment on above: Order Comment: 1 Result Comment: Plea se Note: New Test Units and Gender Specific Reference Ranges. For more information see Policy Stat Procedure [place] High Sensitivity Troponin (TNIH) and attachments. Performed By: #### L 100.0100, L500.2500, L3600.5100, L501.3620, L501.4020 ####[facility] [id number] [place], [place], [id number] Lymphocytes Auto (Unsp spec) [#/Vol]Ordered By: J Luis Mcgill on 02-22-2024 Lymphocytes (Bld) [#/Vol] 0.99 10*3/uL 0.83-4.51 [facility] Lymphocytes/100 WBC Auto (Un sp spec)Ordered By: J Luis Mcgill on 02-22-2024 Lymphocytes/100 WBC (Bld) 9.1 % Low 19-41 [facility] MCV (mean corpuscular volume ) determinationOrdered By: J Luis Mcgill on 02-22-2024 MCV (RBC) [Entitic vol] 76.4 fL Low 80-94 [facility] Mean corpuscular hemoglobin (MCH) determinationOrdered By: J Luis Mcgill on 02-22-2024 MCH (RBC) [Entitic mass] 22.4 pg Low 27.0-32.0 [facility] Mean corpuscular hemoglobin concentration (MCHC) determinationOrdered By: J Luis Mcgill on 02-22-2024 MCHC (RBC) [Mass/Vol] 29.3 g/dL Low 32-36 [facility] Mean platelet volume determi nationOrdered By: J Luis Mcgill on 02-22-2024 Platelet mean volume (Bld) [Entitic vol] 9.5 fL 6.2-12.0 [facility] Monocyte percentageOrdered B y: J Luis Mcgill on 02-22-2024 Monocytes/100 WBC (Bld) 8.6 % 0-10 [facility] Neutrophil percentageOrdered By: J Luis Mcgill on 02-22-2024 Neutrophils/100 WBC (Bld) 78.3 % High 47-70 [facility] Nucleated red blood cell per centageOrdered By: J Luis Mcgill on 02-22-2024 Nucleated RBC/100 WBC (Bld) [Ratio] 0 % 0-5 [facility] Platelet countOrdered By: Wan Mcgill on 02-22-2024 Platelets (Bld) [#/Vol] 373 10*3/uL 150-450 [facility] Potassium measurementOrdered By: J Luis Mcgill on 02-22-2024 Potassium [Moles/Vol] 4.1 mmol/L 3.5-5.1 [facility] RBC Auto (Bld) [#/Vol]Ordere d By: J Luis Mcgill on 02-22-2024 RBC (Bld) [#/Vol] 4.92 10*6/uL 4.6-6.[address] [facility] Serum anion gap measurementO rdered By: J Luis Mcgill on 02-22-2024 Anion gap [Moles/Vol] 5 mmol/L 5-15 [facility] Serum myoglobin measurementO rdered By: J Luis Mcgill on 02-22-2024 Myoglobin [Mass/Vol] 33 ng/mL 28-72 [facility] Comment on above: Performed at: [address] [place], [place] [id number] Director: Terrence Samson PhD, Phone: [phone] Serum or plasma calcium mike urement (mass/volume)Ordered By: J Luis Mcgill on 02-22-2024 Calcium [Mass/Vol] 9.1 mg/dL 8.5-10.1 [facility] Serum or plasma creatinine m easurement (mass/volume)Ordered By: J Luis Mcgill on 02-22-2024 Creatinine [Mass/Vol] 1.00 mg/dL 0.70-1.30 [facility] Comment on above: The validity of the calculated GFR & GFRAA in patients over 70 years has not been determined. Clinical correlation is essential. Serum or plasma urea nitroge n measurement (mass/volume)Ordered By: J Luis Mcgill on 02-22-2024 Urea nitrogen [Mass/Vol] 15 mg/dL 7-18 [facility] Sodium levelOrdered By: J Luis Mcgill on 02-22-2024 Sodium [Moles/Vol] 140 mmol/L 136-145 [facility] Total creatine kinase measur ementOrdered By: J Luis Mcgill on 02-22-2024 CK [Catalytic activity/Vol] 36 U/L Low 39-308 [facility] Troponin IOrdered By: J Luis mason on 02-22-2024 Troponin I High Sensitivity 15 pg/mL 3.0-78.0 [facility] Comment on above: Please Note: New Aleja t Units and Gender Specific Reference Ranges. For more information see Policy Stat Procedure [place] High Sensitivity Troponin (TNIH) and attachments. White blood cell (WBC) count Ordered By: J Luis Mcgill on 02-22-2024 WBC (Bld) [#/Vol] 10.9 10*3/uL 4.4-11.[address] [facility] 59-EH-Eqytocs DOrdered By: Aubrey Mcgill on 02-12-2024 Vitamin D 25-Hydroxy 12.5 ng/mL [facility] Comment on above: Vitamin D 25(OH) Sta tus Range Deficiency <20 ng/mL (50nmol/L) Insufficiency 20 - 30 ng/mL (50 - 75 nmol/L) Sufficiency 30 - 100 ng/mL (75 - 250 nmol/L) Toxicity >100 ng/mL (>250 nmol/L) Absolute neutrophil countOrd ered By: J Luis Mcgill on 02-12-2024 Neutrophils (Bld) [#/Vol] 10.8 10*3/uL High 2.0-7.7 [facility] Albumin to globulin ratioOrd ered By: J Luis Mcgill on 02-12-2024 Albumin/Globulin [Mass ratio] 1.1 {ratio} 0.9-2.4 [facility] Basophil percentageOrdered B y: J Luis Mcgill on 02-12-2024 Basophils/100 WBC (Bld) 0.2 % 0-1 [facility] Bilirubin, totalOrdered By: J Luis Mcgill on 02-12-2024 Bilirubin [Mass/Vol] 0.40 mg/dL 0.20-1.00 [facility] Comment on above: For patients on eltr ombopag therapy, use of Dimension [place] TBIL is not recommended. Blood urea nitrogen (BUN)/cr eatinine ratioOrdered By: J Luis Mcgill on 02-12-2024 Urea nitrogen/Creatinine [Mass ratio] 13.8 mg/mg 10-20 [facility] CBC W/Diff, Automatedon 01-22 Absolute Lymph 1.24 X10 3/uL Normal 0.83-4.51 [facility] Comment on above: Performed By: #### L 506.1000, L100.0100, L501.9520, L500.4050 ####[facility] [address] [place], [address] Absolute Neut 10.8 X10 3/uL High 2.0-7.7 [facility] Comment on above: Performed By: #### L 506.1000, L100.0100, L501.9520, L500.4050 ####[facility] [address] [place], [address] Basophils/100 WBC (Bld) 0.2 % Normal 0-1 [facility] Comment on above: Performed By: #### L 506.1000, L100.0100, L501.9520, L500.4050 ####[facility] [address] [place], [address] Eosinophils/100 WBC (Bld) 0.0 % Normal 0-5 [facility] Comment on above: Performed By: #### L 506.1000, L100.0100, L501.9520, L500.4050 ####[facility] [address] [place], [address] Erythrocyte distribution width (RBC) [Ratio] 16.8 % High 11.6-14.6 [facility] Comment on above: Performed By: #### L 506.1000, L100.0100, L501.9520, L500.4050 ####[facility] [address] [place], [address] Hematocrit (Bld) [Volume fraction] 38.4 % Low 40-54 [facility] Comment on above: Performed By: #### L 506.1000, L100.0100, L501.9520, L500.4050 ####[facility] [address] [place], [address] Hemoglobin (Bld) [Mass/Vol] 11.4 g/dL Low 13.0-16.5 [facility] Comment on above: Performed By: #### L 506.1000, L100.0100, L501.9520, L500.4050 ####[facility] [address] [place], [address] IG% 1.100 High 0.0-0.9 [facility] Comment on above: Result Comment: IG% - Immature Granulocytes (promyelocytes, myelocytes andmetamyelocytes) > 1% indicates that a LEFT SHIFT is Present. Performed By: #### L 506.1000, L100.0100, L501.9520, L500.4050 ####[facility] [address] [place], [address] Lymphocytes/100 WBC (Bld) 9.2 % Low 19-41 [facility] Comment on above: Performed By: #### L 506.1000, L100.0100, L501.9520, L500.4050 ####[facility] [address] [place], [address] MCH (RBC) [Entitic mass] 22.3 pg Low 27.0-32.0 [facility] Comment on above: Performed By: #### L 506.1000, L100.0100, L501.9520, L500.4050 ####[facility] [address] [place], [address] MCHC (RBC) [Mass/Vol] 29.7 g/dL Low 32-36 [facility] Comment on above: Performed By: #### L 506.1000, L100.0100, L501.9520, L500.4050 ####[facility] [address] [place], [address] MCV (RBC) [Entitic vol] 75.1 fL Low 80-94 [facility] Comment on above: Performed By: #### L 506.1000, L100.0100, L501.9520, L500.4050 ####[facility] [address] [place], [address] Monocytes/100 WBC (Bld) 9.5 % Normal 0-10 [facility] Comment on above: Performed By: #### L 506.1000, L100.0100, L501.9520, L500.4050 ####[facility] [address] [place], [address] Neutrophils/100 WBC (Bld) 80.0 % High 47-70 [facility] Comment on above: Performed By: #### L 506.1000, L100.0100, L501.9520, L500.4050 ####[facility] [address] [place], [address] Nucleated RBC (Bld) [#/Vol] 0 10*3/uL Normal 0-5 [facility] Comment on above: Performed By: #### L 506.1000, L100.0100, L501.9520, L500.4050 ####[facility] [address] [place], [address] Platelet mean volume (Bld) [Entitic vol] 9.3 fL Normal 6.2-12.0 [facility] Comment on above: Performed By: #### L 506.1000, L100.0100, L501.9520, L500.4050 ####[facility] [address] [place], [address] Platelets (Bld) [#/Vol] 481 10*3/uL High 150-450 [facility] Comment on above: Performed By: #### L 506.1000, L100.0100, [id number], L500.4050 ####[facility] [address] [place], [address] RBC (Bld) [#/Vol] 5.11 10*6/uL Normal 4.6-6.[address] [facility] Comment on above: Performed By: #### L 506.1000, L100.0100, [id number], L500.4050 ####[facility] [address] [place], [address] RDW SD 44.9 fl High 35.1-43.9 [facility] Comment on above: Performed By: #### L 506.1000, L100.0100, L501.9520, L500.4050 ####[facility] [address] [place], [address] WBC (Bld) [#/Vol] 13.5 10*3/uL High 4.4-11.[address] [facility] Comment on above: Performed By: #### L 506.1000, L100.0100, L501.9520, L500.4050 ####[facility] [address] [place], [address] Carbon dioxide measurementOr dered By: J Luis Mcgill on 02-12-2024 CO2 [Moles/Vol] 25.0 mmol/L 21.0-32.0 [facility] Chloride measurementOrdered By: J Luis Mcgill on 02-12-2024 Chloride [Moles/Vol] 108 mmol/L High 98-107 [facility] Comprehensive Metabolic Prof ilon 02-12-2024 Albumin [Mass/Vol] 3.7 g/dL Normal 3.2-5.0 [facility] Comment on above: Performed By: #### L 506.1000, L100.0100, L501.9520, L500.4050 ####[facility] [address] [place], [address] Albumin/Globulin [Mass ratio] 1.1 {ratio} Normal 0.9-2.4 [facility] Comment on above: Performed By: #### L 506.1000, L100.0100, L501.9520, L500.4050 ####[facility] [address] [place], [address] ALK P 128 U/L High 45-117 [facility] Comment on above: Performed By: #### L 506.1000, L100.0100, L501.9520, L500.4050 ####[facility] [address] [place], [address] ALT [Catalytic activity/Vol] 15 U/L Low 16-61 [facility] Comment on above: Performed By: #### L 506.1000, L100.0100, L501.9520, L500.4050 ####[facility] [address] [place], [address] AST [Catalytic activity/Vol] 14 U/L Low 15-37 [facility] Comment on above: Performed By: #### L 506.1000, L100.0100, L501.9520, L500.4050 ####[facility] [address] [place], [address] Bilirubin [Mass/Vol] 0.40 mg/dL Normal 0.20-1.00 [facility] Comment on above: Result Comment: For patients on eltrombopag therapy, use of Dimension [place] TBIL is not recommended. Performed By: #### L 506.1000, L100.0100, L501.9520, L500.4050 ####[facility] [address] [place], [address] BUN/CRE 13.8 RATIO Normal 10-20 [facility] Comment on above: Performed By: #### L 506.1000, L100.0100, L501.9520, L500.4050 ####[facility] [address] [place], [address] CA,Total 8.8 mg/dL Normal 8.5-10.1 [facility] Comment on above: Performed By: #### L 506.1000, L100.0100, L501.9520, L500.4050 ####[facility] [address] [place], [address] Chloride [Moles/Vol] 108 mmol/L High 98-107 [facility] Comment on above: Performed By: #### L 506.1000, L100.0100, L501.9520, L500.4050 ####[facility] [address] [place], [address] CO2 [Moles/Vol] 25.0 mmol/L Normal 21.0-32.0 [facility] Comment on above: Performed By: #### L 506.1000, L100.0100, L501.9520, L500.4050 ####[facility] [address] [place], [address] Creatinine [Mass/Vol] 1.09 mg/dL Normal 0.70-1.30 [facility] Comment on above: Result Comment: The validity of the calculated GFR GFRAA in patients over70 years has not been determined. Clinical correlation isessential. Performed By: #### L 506.1000, L100.0100, L501.9520, L500.4050 ####[facility] [address] [place], [address] EST GFR - AA 83 mL/min Normal >60 [facility] Comment on above: Result Comment: Afri can Turkish GFR Calc Performed By: #### L 506.1000, L100.0100, L501.9520, L500.4050 ####[facility] [address] [place], [address] GAP 6 Normal 5-15 [facility] Comment on above: Performed By: #### L 506.1000, L100.0100, L501.9520, L500.4050 ####[facility] [address] [place], [address] GFR/1.73 sq M.predicted among non-blacks MDRD (S/P/Bld) [Vol rate/Area] 68 mL/min/{1.73_m2} Normal >60 [facility] Comment on above: Result Comment: Non- GFR Calc Performed By: #### L 506.1000, L100.0100, L501.9520, L500.4050 ####[facility] [address] [place], [address] Globulin (S) [Mass/Vol] 3.5 g/dL Normal 2.2-4.2 [facility] Comment on above: Performed By: #### L 506.1000, L100.0100, L501.9520, L500.4050 ####[facility] [address] [place], [address] Glucose [Mass/Vol] 116 mg/dL High 74-106 [facility] Comment on above: Result Comment: Fast ing Glucose result from 100 to 125 mg/dLsuggests IMPAIRED HOMEOSTASIS per A.D.A. criteria. Performed By: #### L 506.1000, L100.0100, L501.9520, L500.4050 ####[facility] [address] [place], [address] Potassium [Moles/Vol] 3.6 mmol/L Normal 3.5-5.1 [facility] Comment on above: Performed By: #### L 506.1000, L100.0100, L501.9520, L500.4050 ####[facility] [address] [place], [address] Sodium [Moles/Vol] 140 mmol/L Normal 136-145 [facility] Comment on above: Performed By: #### L 506.1000, L100.0100, L501.9520, L500.4050 ####[facility] [address] [place], [address] T PROT 7.2 g/dL Normal 6.4-8.2 [facility] Comment on above: Performed By: #### L 506.1000, L100.0100, L501.9520, L500.4050 ####[facility] [address] [place], [address] Urea nitrogen [Mass/Vol] 15 mg/dL Normal 7-18 [facility] Comment on above: Performed By: #### L 506.1000, L100.0100, L501.9520, L500.4050 ####[facility] [address] [place], [address] Eosinophil percentageOrdered By: J Luis Mcgill on 02-12-2024 Eosinophils/100 WBC (Bld) 0.0 % 0-5 [facility] Erythrocyte distribution wid th ratioOrdered By: J Luis Mcgill on 02-12-2024 Erythrocyte distribution width (RBC) [Ratio] 16.8 % High 11.6-14.6 [facility] Erythrocyte distribution wid th standard deviationOrdered By: J Luis Mcgill on 02-12-2024 Erythrocyte distribution width (RBC) [Entitic vol] 44.9 fL High 35.1-43.9 [facility] Estimated glomerular filtrat ion rate (GFR) AmericanOrdered By: J Luis Mcgill on 02-12-2024 Estimated GFR (MDRD) Amer 83 mL/min >60 [facility] Comment on above: GFR Calc Glomerular filtration rate ( GFR) estimationOrdered By: J Luis Mcgill on 02-12-2024 Estimated GFR (MDRD) Non-Af Amer 68 mL/min >60 [facility] Comment on above: Non- GFR Calc Glucose measurementOrdered B y: J Luis Mcgill on 02-12-2024 Glucose [Mass/Vol] 116 mg/dL High 74-106 [facility] Comment on above: Fasting Glucose resu lt from 100 to 125 mg/dL suggests IMPAIRED HOMEOSTASIS per A.D.A. criteria. Hematocrit Auto (Bld) [Volum e fraction]Ordered By: J Luis Mcgill on 02-12-2024 Hematocrit (Bld) [Volume fraction] 38.4 % Low 40-54 [facility] Hemoglobin measurementOrdere d By: J Luis Mcgill on 02-12-2024 Hemoglobin (Bld) [Mass/Vol] 11.4 g/dL Low 13.0-16.5 [facility] Immature granulocytes/100 WB C Auto (Bld)Ordered By: J Luis Mcgill 02-12-2024 Immature granulocytes/100 WBC (Bld) 1.100 % High 0.0-0.9 [facility] Comment on above: IG% - Immature Granu locytes (promyelocytes, myelocytes and metamyelocytes) > 1% indicates that a LEFT SHIFT is Present. Laboratory - Chemistry and C hemistry - challengeOrdered By: J Luis Mcgill on 02-12-2024 AST [Catalytic activity/Vol] 14 U/L Low 15-37 [facility] Lymphocytes Auto (Unsp spec) [#/Vol]Ordered By: J Luis Mcgill on 02-12-2024 Lymphocytes (Bld) [#/Vol] 1.24 10*3/uL 0.83-4.51 [facility] Lymphocytes/100 WBC Auto (Un sp spec)Ordered By: J Luis Mcgill on 02-12-2024 Lymphocytes/100 WBC (Bld) 9.2 % Low 19-41 [facility] MCV (mean corpuscular volume ) determinationOrdered By: J Luis Mcgill on 02-12-2024 MCV (RBC) [Entitic vol] 75.1 fL Low 80-94 [facility] Mean corpuscular hemoglobin (MCH) determinationOrdered By: J Luis [place] on 02-12-2024 MCH (RBC) [Entitic mass] 22.3 pg Low 27.0-32.0 [facility] Mean corpuscular hemoglobin concentration (MCHC) determinationOrdered By: J Luis Mcgill on 02-12-2024 MCHC (RBC) [Mass/Vol] 29.7 g/dL Low 32-36 [facility] Mean platelet volume determi nationOrdered By: J Luis Mcgill on 02-12-2024 Platelet mean volume (Bld) [Entitic vol] 9.3 fL 6.2-12.0 [facility] Monocyte percentageOrdered B y: J Luis [place] on 02-12-2024 Monocytes/100 WBC (Bld) 9.5 % 0-10 [facility] Neutrophil percentageOrdered By: J Luis [place] on 02-12-2024 Neutrophils/100 WBC (Bld) 80.0 % High 47-70 [facility] Nucleated red blood cell per centageOrdered By: J Luis Mcgill on 02-12-2024 Nucleated RBC/100 WBC (Bld) [Ratio] 0 % 0-5 [facility] Platelet countOrdered By: Wan Mcgill on 02-12-2024 Platelets (Bld) [#/Vol] 481 10*3/uL High 150-450 [facility] Potassium measurementOrdered By: J Luis Mcgill on 02-12-2024 Potassium [Moles/Vol] 3.6 mmol/L 3.5-5.1 [facility] RBC Auto (Bld) [#/Vol]Ordere d By: J Luis Mcgill on 02-12-2024 RBC (Bld) [#/Vol] 5.11 10*6/uL 4.6-6.[address] [facility] Serum anion gap measurementO rdered By: J Luis Mcgill on 02-12-2024 Anion gap [Moles/Vol] 6 mmol/L 5-15 [facility] Serum globulin measurementOr dered By: J Luis Mcgill on 02-12-2024 Globulin (S) [Mass/Vol] 3.5 g/dL 2.2-4.2 [facility] Serum or plasma alanine bryan otransferase (ALT) measurementOrdered By: J Luis Mcgill on 02-12-2024 ALT [Catalytic activity/Vol] 15 U/L Low 16-61 [facility] Serum or plasma albumin mike urement (mass/volume)Ordered By: J Luis Mcgill on 02-12-2024 Albumin [Mass/Vol] 3.7 g/dL 3.2-5.0 [facility] Serum or plasma alkaline jean-paul sphatase measurementOrdered By: J Luis Mcgill on 02-12-2024 ALP [Catalytic activity/Vol] 128 U/L High 45-117 [facility] Serum or plasma calcium mike urement (mass/volume)Ordered By: J Luis Mcgill on 02-12-2024 Calcium [Mass/Vol] 8.8 mg/dL 8.5-10.1 [facility] Serum or plasma creatinine m easurement (mass/volume)Ordered By: J Luis Mcgill on 02-12-2024 Creatinine [Mass/Vol] 1.09 mg/dL 0.70-1.30 [facility] Comment on above: The validity of the calculated GFR & GFRAA in patients over 70 years has not been determined. Clinical correlation is essential. Serum or plasma urea nitroge n measurement (mass/volume)Ordered By: J Luis Mcgill on 02-12-2024 Urea nitrogen [Mass/Vol] 15 mg/dL 7-18 [facility] Sodium levelOrdered By: J Luis Mcgill 02-12-2024 Sodium [Moles/Vol] 140 mmol/L 136-145 [facility] TSH QnOrdered By: J Luis Mcgill o n 02-12-2024 Thyroid Stimulating Hormone (TSH) 1.150 uIU/mL 0.358-3.740 [facility] Thyroid Stim Hormone (TSH)on 02-12-2024 TSH 1.150 uIU/mL Normal 0.358-3.740 [facility] Comment on above: Performed By: #### L 506.1000, L100.0100, L501.9520, L500.4050 ####[facility] [address] [place], [address] Total proteinOrdered By: J Luis Mcgill on 02-12-2024 Protein [Mass/Vol] 7.2 g/dL 6.4-8.2 [facility] Vitamin D,25 Hydroxyon 02-11 Vitamin D 25-OH 12.5 ng/mL Normal [facility] Comment on above: Result Comment: [place] min D 25(OH) Status Range Deficiency <20 ng/mL (50nmol/L) Insufficiency 20 - 30 ng/mL (50 - 75 nmol/L) Sufficiency 30 - 100 ng/mL (75 - 250 nmol/L) Toxicity >100 ng/mL (>250 nmol/L) Performed By: #### L 506.1000, L100.0100, L501.9520, L500.4050 ####[facility] [address] [place], [place], [address] White blood cell (WBC) count Ordered By: J Luis Mcgill on 02-12-2024 WBC (Bld) [#/Vol] 13.5 10*3/uL High 4.4-11.[address] [facility] Absolute lymphocyte countOrd ered By: Garret Leonardo on 07-15-2023 Lymphocytes Auto (Unsp spec) [#/Vol] 1.87 10*3/uL 0.83-4.51 [facility] Automated lymphocyte count a s percentage of total leukocytesOrdered By: Garret Leonardo on 07-15-2023 Lymphocytes/100 WBC Auto (Unsp spec) 18.5 % 19-41 [facility] Basophil percentageOrdered B y: Garret Leonardo on 07-15-2023 Basophils/100 WBC (Bld) 0.6 % 0-1 [facility] Chloride [Moles/Vol] 107 mmol/L 98-107 [facility] Eosinophils/100 WBC (Bld) 2.0 % 0-5 [facility] Glucose [Mass/Vol] 108 mg/dL 74-106 [facility] Comment on above: Fasting Glucose resu lt from 100 to 125 mg/dL suggests IMPAIRED HOMEOSTASIS per A.D.A. criteria. Hemoglobin (Bld) [Mass/Vol] 11.8 g/dL 13.0-16.5 [facility] Monocytes/100 WBC (Bld) 10.2 % 0-10 [facility] Neutrophils (Bld) [#/Vol] 6.7 10*3/uL 2.0-7.7 [facility] Neutrophils/100 WBC (Bld) 65.7 % 47-70 [facility] Potassium [Moles/Vol] 3.8 mmol/L 3.5-5.1 [facility] Sodium [Moles/Vol] 139 mmol/L 136-145 [facility] WBC (Bld) [#/Vol] 10.1 10*3/uL 4.4-11.[address] [facility] Determination of erythrocyte mean corpuscular volume (MCV)Ordered By: Garret Leonardo on 07-15-2023 MCV (RBC) [Entitic vol] 78.7 fL 80-94 [facility] Erythrocyte distribution wid th ratioOrdered By: Garret Leonardo on 07-15-2023 Erythrocyte distribution width (RBC) [Ratio] 17.1 % 11.6-14.6 [facility] Erythrocyte distribution wid th standard deviationOrdered By: Garret Leonardo on 07-15-2023 Erythrocyte distribution width (RBC) [Entitic vol] 48.7 fL 35.1-43.9 [facility] Hematocrit Auto (Bld) [Volum e fraction]Ordered By: Garret Leonardo on 07-15-2023 Hematocrit (Bld) [Volume fraction] 39.8 % 40-54 [facility] Immature granulocytes/100 WB C Auto (Bld)Ordered By: Garret Leonardo on 07-15-2023 Immature granulocytes/100 WBC (Bld) 3.000 % 0.0-0.9 [facility] Comment on above: IG% - Immature Granu locytes (promyelocytes, myelocytes and metamyelocytes) > 1% indicates that a LEFT SHIFT is Present. Laboratory - Chemistry and C hemistry - challengeOrdered By: Garret Leonardo on 07-15-2023 CO2 [Moles/Vol] 27.0 mmol/L 21.0-32.0 [facility] Urea nitrogen/Creatinine [Mass ratio] 13.3 mg/mg 10-20 [facility] Laboratory - Hematology and Cell countsOrdered By: Garret Leonardo on 07-15-2023 MCH (RBC) [Entitic mass] 23.3 pg 27.0-32.0 [facility] MCHC (RBC) [Mass/Vol] 29.6 g/dL 32-36 [facility] Nucleated RBC/100 WBC (Bld) [Ratio] 0 % 0-5 [facility] Platelet mean volume (Bld) [Entitic vol] 9.9 fL 6.2-12.0 [facility] Platelets (Bld) [#/Vol] 474 10*3/uL 150-450 [facility] No Panel InformationOrdered By: Garret Leonardo on 07-15-2023 Troponin I High Sensitivity 38 pg/mL 3.0-78.0 [facility] Comment on above: Please Note: New Aleja t Units and Gender Specific Reference Ranges. For more information see Policy Stat Procedure [place] High Sensitivity Troponin (TNIH) and attachments. Estimated Creatinine Clearance Calc 53.03 ml/min [facility] [facility] Estimated GFR (MDRD) Amer 93 mL/min >60 [facility] Comment on above: GFR Calc Estimated GFR (MDRD) Non-Af Amer 77 mL/min >60 [facility] Comment on above: Non- GFR Calc RBC Auto (Bld) [#/Vol]Ordere d By: Garret Leonardo on 07-15-2023 RBC (Bld) [#/Vol] 5.06 10*6/uL 4.6-6.[address] [facility] Serum or plasma calcium mike urement (mass/volume)Ordered By: Garret Leonardo on 07-15-2023 Calcium [Mass/Vol] 9.1 mg/dL 8.5-10.1 [facility] Serum or plasma creatinine m easurement (mass/volume)Ordered By: Garret Leonardo on 07-15-2023 Creatinine [Mass/Vol] 0.98 mg/dL 0.70-1.30 [facility] Comment on above: The validity of the calculated GFR & GFRAA in patients over 70 years has not been determined. Clinical correlation is essential. Serum or plasma urea nitroge n measurement (mass/volume)Ordered By: Garret Leonardo on 07-15-2023 Urea nitrogen [Mass/Vol] 13 mg/dL 7-18 [facility] Thin prep Papanicolaou smear with manual screeningOrdered By: Garret Leonardo on 07-15-2023 Thin prep Papanicolaou smear with manual screening 5 5-15 [facility] Absolute lymphocyte countOrd ered By: Heriberto Grewal on 07-07-2023 Lymphocytes Auto (Unsp spec) [#/Vol] 0.68 10*3/uL 0.83-4.51 [facility] Automated lymphocyte count a s percentage of total leukocytesOrdered By: Heriberto Grewal on 07-07-2023 Lymphocytes/100 WBC Auto (Unsp spec) 8.4 % 19-41 [facility] Basophil percentageOrdered B y: Heriberto Grewal on 07-07-2023 Basophils/100 WBC (Bld) 0.1 % 0-1 [facility] Chloride [Moles/Vol] 107 mmol/L 98-107 [facility] Eosinophils/100 WBC (Bld) 0.0 % 0-5 [facility] Glucose [Mass/Vol] 143 mg/dL 74-106 [facility] Comment on above: Fasting Glucose resu lt greater than or equal to 126 mg/dL suggests DIABETES MELLITUS per A.D.A. criteria. Hemoglobin (Bld) [Mass/Vol] 10.3 g/dL 13.0-16.5 [facility] Monocytes/100 WBC (Bld) 5.4 % 0-10 [facility] Neutrophils (Bld) [#/Vol] 7.0 10*3/uL 2.0-7.7 [facility] Neutrophils/100 WBC (Bld) 85.4 % 47-70 [facility] Potassium [Moles/Vol] 4.5 mmol/L 3.5-5.1 [facility] Sodium [Moles/Vol] 138 mmol/L 136-145 [facility] WBC (Bld) [#/Vol] 8.1 10*3/uL 4.4-11.0 [facility] Determination of erythrocyte mean corpuscular volume (MCV)Ordered By: Heriberto Grewal on 07-07-2023 MCV (RBC) [Entitic vol] 77.2 fL 80-94 [facility] Erythrocyte distribution wid th ratioOrdered By: Heribertosindi Grewal on 07-07-2023 Erythrocyte distribution width (RBC) [Ratio] 17.0 % 11.6-14.6 [facility] Erythrocyte distribution wid th standard deviationOrdered By: Heriberto Grewal on 07-07-2023 Erythrocyte distribution width (RBC) [Entitic vol] 46.8 fL 35.1-43.9 [facility] Hematocrit Auto (Bld) [Volum e fraction]Ordered By: Heriberto Grewal on 07-07-2023 Hematocrit (Bld) [Volume fraction] 34.2 % 40-54 [facility] Immature granulocytes/100 WB C Auto (Bld)Ordered By: Heribertosindi Grewal on 07-07-2023 Immature granulocytes/100 WBC (Bld) 0.700 % 0.0-0.9 [facility] Comment on above: IG% - Immature Granu locytes (promyelocytes, myelocytes and metamyelocytes) > 1% indicates that a LEFT SHIFT is Present. Laboratory - Chemistry and C hemistry - challengeOrdered By: Heriberto Grewal on 07-07-2023 CO2 [Moles/Vol] 27.0 mmol/L 21.0-32.0 [facility] Urea nitrogen/Creatinine [Mass ratio] 16.3 mg/mg 10-20 [facility] Laboratory - Hematology and Cell countsOrdered By: Heriberto Grewal on 07-07-2023 MCH (RBC) [Entitic mass] 23.3 pg 27.0-32.0 [facility] MCHC (RBC) [Mass/Vol] 30.1 g/dL 32-36 [facility] Nucleated RBC/100 WBC (Bld) [Ratio] 0 % 0-5 [facility] Platelet mean volume (Bld) [Entitic vol] 9.9 fL 6.2-12.0 [facility] Platelets (Bld) [#/Vol] 283 10*3/uL 150-450 [facility] No Panel InformationOrdered By: Heriberto Grewal on 07-07-2023 Estimated Creatinine Clearance Calc 55.30 ml/min [facility] Estimated GFR (MDRD) Amer 100 mL/min >60 [facility] Comment on above: GFR Calc Estimated GFR (MDRD) Non-Af Amer 83 mL/min >60 [facility] Comment on above: Non- GFR Calc RBC Auto (Bld) [#/Vol]Ordere d By: Heriberto Grewal on 07-07-2023 RBC (Bld) [#/Vol] 4.43 10*6/uL 4.6-6.[address] [facility] Serum or plasma calcium mike urement (mass/volume)Ordered By: Heriberto Grewal on 07-07-2023 Calcium [Mass/Vol] 9.0 mg/dL 8.5-10.1 [facility] Serum or plasma creatinine m easurement (mass/volume)Ordered By: Heriberto Grewal on 07-07-2023 Creatinine [Mass/Vol] 0.92 mg/dL 0.70-1.30 [facility] Comment on above: The validity of the calculated GFR & GFRAA in patients over 70 years has not been determined. Clinical correlation is essential. Serum or plasma urea nitroge n measurement (mass/volume)Ordered By: Heriberto Grewal on 07-07-2023 Urea nitrogen [Mass/Vol] 15 mg/dL 7-18 [facility] Thin prep Papanicolaou smear with manual screeningOrdered By: Heriberto Grewal on 07-07-2023 Thin prep Papanicolaou smear with manual screening 4 5-15 [facility] Absolute lymphocyte countOrd ered By: ED PROVIDER on 07-06-2023 Lymphocytes Auto (Unsp spec) [#/Vol] 0.41 10*3/uL 0.83-4.51 [facility] Absolute lymphocyte countOrd ered By: J Luis Mcgill on 07-06-2023 Lymphocytes Auto (Unsp spec) [#/Vol] 1.15 10*3/uL 0.83-4.51 [facility] Automated lymphocyte count a s percentage of total leukocytesOrdered By: ED PROVIDER on 07-06-2023 Lymphocytes/100 WBC Auto (Unsp spec) 5.2 % [facility] Automated lymphocyte count a s percentage of total leukocytesOrdered By: J Luis Mcgill on 07-06-2023 Lymphocytes/100 WBC Auto (Unsp spec) 15.4 % [facility] Basophil percentageOrdered B y: ED PROVIDER on 07-06-2023 Basophils/100 WBC (Bld) 0.3 % 0-1 [facility] Eosinophils/100 WBC (Bld) 0.3 % 0-5 [facility] Hemoglobin (Bld) [Mass/Vol] 11.7 g/dL 13.0-16.5 [facility] Monocytes/100 WBC (Bld) 1.5 % 0-10 [facility] Neutrophils (Bld) [#/Vol] 7.2 10*3/uL 2.0-7.7 [facility] Neutrophils/100 WBC (Bld) 91.9 % 47-70 [facility] WBC (Bld) [#/Vol] 7.8 10*3/uL 4.4-11.0 [facility] Basophil percentageOrdered B y: Huber Mongepaulino on 07-06-2023 Chloride [Moles/Vol] 105 mmol/L 98-107 [facility] Glucose [Mass/Vol] 129 mg/dL 74-106 [facility] Comment on above: Fasting Glucose resu lt greater than or equal to 126 mg/dL suggests DIABETES MELLITUS per A.D.A. criteria. Potassium [Moles/Vol] 4.2 mmol/L 3.5-5.1 [facility] Sodium [Moles/Vol] 138 mmol/L 136-145 [facility] Basophil percentageOrdered B y: J Luis Mcgill on 07-06-2023 Basophils/100 WBC (Bld) 0.5 % 0-1 [facility] Chloride [Moles/Vol] 105 mmol/L 98-107 [facility] Eosinophils/100 WBC (Bld) 1.9 % 0-5 [facility] Glucose [Mass/Vol] 110 mg/dL 74-106 [facility] Comment on above: Fasting Glucose resu lt from 100 to 125 mg/dL suggests IMPAIRED HOMEOSTASIS per A.D.A. criteria. Hemoglobin (Bld) [Mass/Vol] 10.7 g/dL 13.0-16.5 [facility] Monocytes/100 WBC (Bld) 8.2 % 0-10 [facility] Neutrophils (Bld) [#/Vol] 5.5 10*3/uL 2.0-7.7 [facility] Neutrophils/100 WBC (Bld) 73.2 % 47-70 [facility] Potassium [Moles/Vol] 4.2 mmol/L 3.5-5.1 [facility] Sodium [Moles/Vol] 138 mmol/L 136-145 [facility] WBC (Bld) [#/Vol] 7.5 10*3/uL 4.4-11.0 [facility] Blood manual differential co mment interpretation (narrative result)Ordered By: Huber Foy on 07-06-2023 Manual differential comment Rogelio (Bld) [Interp] SEE COMMENT [facility] Comment on above: LYMPHOENIA NOTED Blood platelet adequacy dete ction by light microscopyOrdered By: Huber Foy on 07-06-2023 Platelets LM Ql (Bld) ADEQUATE ADEQ [facility] Determination of erythrocyte mean corpuscular volume (MCV)Ordered By: ED PROVIDER on 07-06-2023 MCV (RBC) [Entitic vol] 78.4 fL 80-94 [facility] Determination of erythrocyte mean corpuscular volume (MCV)Ordered By: J Luis Mcgill on 07-06-2023 MCV (RBC) [Entitic vol] 79.1 fL 80-94 [facility] Erythrocyte distribution wid th ratioOrdered By: ED PROVIDER on 07-06-2023 Erythrocyte distribution width (RBC) [Ratio] 17.2 % 11.6-14.6 [facility] Erythrocyte distribution wid th ratioOrdered By: J Luis Mcgill on 07-06-2023 Erythrocyte distribution width (RBC) [Ratio] 17.3 % 11.6-14.6 [facility] Erythrocyte distribution wid th standard deviationOrdered By: ED PROVIDER on 07-06-2023 Erythrocyte distribution width (RBC) [Entitic vol] 48.5 fL 35.1-43.9 [facility] Erythrocyte distribution wid th standard deviationOrdered By: J Luis Mcgill on 07-06-2023 Erythrocyte distribution width (RBC) [Entitic vol] 49.1 fL 35.1-43.9 [facility] Hematocrit Auto (Bld) [Volum e fraction]Ordered By: ED PROVIDER on 07-06-2023 Hematocrit (Bld) [Volume fraction] 38.4 % 40-54 [facility] Hematocrit Auto (Bld) [Volum e fraction]Ordered By: J Luis Mcgill on 07-06-2023 Hematocrit (Bld) [Volume fraction] 36.0 % 40-54 [facility] Immature granulocytes/100 WB C Auto (Bld)Ordered By: ED PROVIDER on 07-06-2023 Immature granulocytes/100 WBC (Bld) 0.800 % 0.0-0.9 [facility] Comment on above: IG% - Immature Granu locytes (promyelocytes, myelocytes and metamyelocytes) > 1% indicates that a LEFT SHIFT is Present. Immature granulocytes/100 WB C Auto (Bld)Ordered By: J Luis Mcgill on 07-06-2023 Immature granulocytes/100 WBC (Bld) 0.800 % 0.0-0.9 [facility] Comment on above: IG% - Immature Granu locytes (promyelocytes, myelocytes and metamyelocytes) > 1% indicates that a LEFT SHIFT is Present. Laboratory - Chemistry and C hemistry - challengeOrdered By: Huber Foy on 07-06-2023 CO2 [Moles/Vol] 26.0 mmol/L 21.0-32.0 [facility] Urea nitrogen/Creatinine [Mass ratio] 10.4 mg/mg 01-09 [facility] Laboratory - Chemistry and C hemistry - challengeOrdered By: J Luis Mcgill on 07-06-2023 CK [Catalytic activity/Vol] 34 U/L 39-308 [facility] CO2 [Moles/Vol] 28.0 mmol/L 21.0-32.0 [facility] Urea nitrogen/Creatinine [Mass ratio] 9.4 mg/mg 10-20 [facility] Laboratory - Hematology and Cell countsOrdered By: Huber Foy on 07-06-2023 Anisocytosis Ql (Bld) RARE [facility] Laboratory - Hematology and Cell countsOrdered By: ED PROVIDER on 07-06-2023 MCH (RBC) [Entitic mass] 23.9 pg 27.0-32.0 [facility] MCHC (RBC) [Mass/Vol] 30.5 g/dL 32-36 [facility] Nucleated RBC/100 WBC (Bld) [Ratio] 0 % 0-5 [facility] Platelet mean volume (Bld) [Entitic vol] 10.3 fL 6.2-12.0 [facility] Platelets (Bld) [#/Vol] 339 10*3/uL 150-450 [facility] Laboratory - Hematology and Cell countsOrdered By: J Luis Mcgill on 07-06-2023 MCH (RBC) [Entitic mass] 23.5 pg 27.0-32.0 [facility] MCHC (RBC) [Mass/Vol] 29.7 g/dL 32-36 [facility] Nucleated RBC/100 WBC (Bld) [Ratio] 0 % 0-5 [facility] Platelet mean volume (Bld) [Entitic vol] 10.4 fL 6.2-12.0 [facility] Platelets (Bld) [#/Vol] 316 10*3/uL 150-450 [facility] No Panel InformationOrdered By: Heriberto Grewal on 07-06-2023 Troponin I High Sensitivity 161 pg/mL 3.0-78.0 [facility] Comment on above: Critical Result(s) C alled at: 22:18:38 07/06/2023 by: ALETA GREENE TO AZAM. Results read back by same. Please Note: New Test Units and Gender Specific Reference Ranges. For more information see Policy Stat Procedure [place] High Sensitivity Troponin (TNIH) and attachments. No Panel InformationOrdered By: Huber Foy on 07-06-2023 D-Dimer Quantitative (PE/DVT) 5.91 FEU/ug/m 0.27-0.49 [facility] Comment on above: CRITICAL VALUE VERIF IED. CALLED TO JEANNETTE SEGUNDO RN 07/06/231802 Pantera Villagomez.RESULTS READ BACK BY SAME . D-Dimer ELEVATED (>0.49): Additional studies and clinicalassessments are indicated to conclude diagnosis of:Deep Vein Thrombosis (DVT) or Pulmonary Embolism (PE) Estimated Creatinine Clearance Calc 49.20 ml/min [facility] Estimated GFR (MDRD) Amer 85 mL/min >60 [facility] Comment on above: GFR Calc Estimated GFR (MDRD) Non-Af Amer 71 mL/min >60 [facility] Comment on above: Non- GFR Calc Troponin I High Sensitivity 175 pg/mL 3.0-78.0 [facility] Comment on above: Critical Result(s) C alled at: 18:04:49 07/06/2023 by: ALETA GREENE TO NIKKI. Results read back by same. Please Note: New Test Units and Gender Specific Reference Ranges. For more information see Policy Stat Procedure [place] High Sensitivity Troponin (TNIH) and attachments. No Panel InformationOrdered By: J Luis Mcgill on 07-06-2023 Estimated GFR (MDRD) Amer 96 mL/min >60 [facility] Comment on above: GFR Calc Estimated GFR (MDRD) Non-Af Amer 79 mL/min >60 [facility] Comment on above: Non- GFR Calc Troponin I High Sensitivity 163 pg/mL 3.0-78.0 [facility] Comment on above: Critical Result(s) C alled at: 16:11:12 07/06/2023 by: ALETA GREENE TO KT. Results read back by same. Please Note: New Test Units and Gender Specific Reference Ranges. For more information see Policy Stat Procedure [place] High Sensitivity Troponin (TNIH) and attachments. RBC Auto (Bld) [#/Vol]Ordere d By: ED PROVIDER on 07-06-2023 RBC (Bld) [#/Vol] 4.90 10*6/uL 4.6-6.[address] [facility] RBC Auto (Bld) [#/Vol]Ordere d By: JL uis Mcgill on 07-06-2023 RBC (Bld) [#/Vol] 4.55 10*6/uL 4.6-6.[address] [facility] RBC morphologyOrdered By: Trell Foy on 07-06-2023 RBC morphology finding Nom (Bld) N CHROM NORMAL NORM C&C [facility] Serum myoglobin measurementO rdered By: J Luis Mcgill on 07-06-2023 Myoglobin [Mass/Vol] 35 ng/mL 28-72 [facility] Comment on above: Performed at: [facility] - [address] [id number] Director: Terrence Samson PhD, Phone: [phone] Serum or plasma calcium mike urement (mass/volume)Ordered By: Huber Foy on 07-06-2023 Calcium [Mass/Vol] 9.1 mg/dL 8.5-10.1 [facility] Serum or plasma calcium mike urement (mass/volume)Ordered By: J Luis Mcgill on 07-06-2023 Calcium [Mass/Vol] 8.9 mg/dL 8.5-10.1 [facility] Serum or plasma creatinine m easurement (mass/volume)Ordered By: Huber Foy on 07-06-2023 Creatinine [Mass/Vol] 1.06 mg/dL 0.70-1.30 [facility] Comment on above: The validity of the calculated GFR & GFRAA in patients over 70 years has not been determined. Clinical correlation is essential. Serum or plasma creatinine m easurement (mass/volume)Ordered By: J Lusi Mcgill on 07-06-2023 Creatinine [Mass/Vol] 0.96 mg/dL 0.70-1.30 [facility] Comment on above: The validity of the calculated GFR & GFRAA in patients over 70 years has not been determined. Clinical correlation is essential. Serum or plasma urea nitroge n measurement (mass/volume)Ordered By: Huber Foy on 07-06-2023 Urea nitrogen [Mass/Vol] 11 mg/dL 10-07 [facility] Serum or plasma urea nitroge n measurement (mass/volume)Ordered By: J Luis Mcgill on 07-06-2023 Urea nitrogen [Mass/Vol] 9 mg/dL 10-07 [facility] Thin prep Papanicolaou smear with manual screeningOrdered By: Huber Foy on 07-06-2023 Thin prep Papanicolaou smear with manual screening RARE [facility] Thin prep Papanicolaou smear with manual screening 08-04 [facility] Thin prep Papanicolaou smear with manual screeningOrdered By: J Luis Mcgill on 07-06-2023 Thin prep Papanicolaou smear with manual screening 08-04 [facility] Basophil percentageOrdered B y: J Luis Mcgill on 07-01-2023 Chloride [Moles/Vol] 106 mmol/L 98-107 [facility] Glucose [Mass/Vol] 103 mg/dL 74-106 [facility] Comment on above: Fasting Glucose resu lt from 100 to 125 mg/dL suggests IMPAIRED HOMEOSTASIS per A.D.A. criteria. Potassium [Moles/Vol] 3.5 mmol/L 3.5-5.1 [facility] Sodium [Moles/Vol] 138 mmol/L 136-145 [facility] Laboratory - Chemistry and C hemistry - challengeOrdered By: J Luis Mcgill on 07-01-2023 CO2 [Moles/Vol] 28.0 mmol/L 21.0-32.0 [facility] Urea nitrogen/Creatinine [Mass ratio] 8.8 mg/mg 10- [facility] No Panel InformationOrdered By: J Luis Mcgill on 07-01-2023 Estimated GFR (MDRD) Amer 101 mL/min >60 [facility] Comment on above: GFR Calc Estimated GFR (MDRD) Non-Af Amer 84 mL/min >60 [facility] Comment on above: Non- GFR Calc Serum or plasma calcium mike urement (mass/volume)Ordered By: J Luis Mcgill on 07-01-2023 Calcium [Mass/Vol] 8.7 mg/dL 8.5-10.1 [facility] Serum or plasma creatinine m easurement (mass/volume)Ordered By: J Luis Mcgill on 07-01-2023 Creatinine [Mass/Vol] 0.91 mg/dL 0.70-1.30 [facility] Comment on above: The validity of the calculated GFR & GFRAA in patients over 70 years has not been determined. Clinical correlation is essential. Serum or plasma urea nitroge n measurement (mass/volume)Ordered By: J Luis Mcgill on 07-01-2023 Urea nitrogen [Mass/Vol] 8 mg/dL 7-18 [facility] Thin prep Papanicolaou smear with manual screeningOrdered By: J Luis Mcgill on 07-01-2023 Thin prep Papanicolaou smear with manual screening 4 5-15 [facility] Absolute lymphocyte countOrd ered By: J Luis Mcgill on 06-25-2023 Lymphocytes Auto (Unsp spec) [#/Vol] 2.75 10*3/uL 0.83-4.51 [facility] Automated lymphocyte count a s percentage of total leukocytesOrdered By: J Luis Mcgill on 06-25-2023 Lymphocytes/100 WBC Auto (Unsp spec) 20.2 % 19-41 [facility] Basophil percentageOrdered B y: J Luis Mcgill on 06-25-2023 Basophils/100 WBC (Bld) 0.6 % 0-1 [facility] Bilirubin [Mass/Vol] 0.40 mg/dL 0.20-1.00 [facility] Comment on above: For patients on eltr ombopag therapy, use of Dimension [place] TBIL is not recommended. Chloride [Moles/Vol] 108 mmol/L 98-107 [facility] Eosinophils/100 WBC (Bld) 1.2 % 0-5 [facility] Glucose [Mass/Vol] 75 mg/dL 74-106 [facility] Hemoglobin (Bld) [Mass/Vol] 11.2 g/dL 13.0-16.5 [facility] Monocytes/100 WBC (Bld) 11.0 % 0-10 [facility] Neutrophils (Bld) [#/Vol] 8.7 10*3/uL 2.0-7.7 [facility] Neutrophils/100 WBC (Bld) 63.8 % 47-70 [facility] Potassium [Moles/Vol] 3.3 mmol/L 3.5-5.1 [facility] Protein [Mass/Vol] 6.2 g/dL 6.4-8.2 [facility] Sodium [Moles/Vol] 140 mmol/L 136-145 [facility] WBC (Bld) [#/Vol] 13.6 10*3/uL 4.4-11.[address] [facility] Determination of erythrocyte mean corpuscular volume (MCV)Ordered By: J Luis Mcgill on 06-25-2023 MCV (RBC) [Entitic vol] 78.7 fL 80-94 [facility] Erythrocyte distribution wid th ratioOrdered By: J Luis Mcgill on 06-25-2023 Erythrocyte distribution width (RBC) [Ratio] 16.8 % 11.6-14.6 [facility] Erythrocyte distribution wid th standard deviationOrdered By: J Luis Mcgill on 06-25-2023 Erythrocyte distribution width (RBC) [Entitic vol] 46.7 fL 35.1-43.9 [facility] Hematocrit Auto (Bld) [Volum e fraction]Ordered By: J Luis Mcgill on 06-25-2023 Hematocrit (Bld) [Volume fraction] 38.5 % 40-54 [facility] Immature granulocytes/100 WB C Auto (Bld)Ordered By: J Luis Mcgill on 06-25-2023 Immature granulocytes/100 WBC (Bld) 3.200 % 0.0-0.9 [facility] Comment on above: IG% - Immature Granu locytes (promyelocytes, myelocytes and metamyelocytes) > 1% indicates that a LEFT SHIFT is Present. Laboratory - Chemistry and C hemistry - challengeOrdered By: J Luis Mcgill on 06-25-2023 Albumin/Globulin [Mass ratio] 1.0 {ratio} 0.9-2.4 [facility] ALP [Catalytic activity/Vol] 99 U/L 45-117 [facility] ALT [Catalytic activity/Vol] 34 U/L 16-61 [facility] CO2 [Moles/Vol] 27.0 mmol/L 21.0-32.0 [facility] Globulin (S) [Mass/Vol] 3.1 g/dL 2.2-4.2 [facility] Urea nitrogen/Creatinine [Mass ratio] 12.2 mg/mg 10-20 [facility] Laboratory - Hematology and Cell countsOrdered By: J Luis Mcgill 06-25-2023 MCH (RBC) [Entitic mass] 22.9 pg 27.0-32.0 [facility] MCHC (RBC) [Mass/Vol] 29.1 g/dL 32-36 [facility] Nucleated RBC/100 WBC (Bld) [Ratio] 0 % 0-5 [facility] Platelet mean volume (Bld) [Entitic vol] 10.5 fL 6.2-12.0 [facility] Platelets (Bld) [#/Vol] 362 10*3/uL 150-450 [facility] No Panel InformationOrdered By: J Luis Mcgill on 06-25-2023 Estimated GFR (MDRD) Amer 93 mL/min >60 [facility] Comment on above: GFR Calc Estimated GFR (MDRD) Non-Af Amer 77 mL/min >60 [facility] Comment on above: Non- GFR Calc Vitamin D 25-Hydroxy 18.2 ng/mL [facility] Comment on above: Vitamin D 25(OH) Sta tus Range Deficiency <20 ng/mL (50nmol/L) Insufficiency 20 - 30 ng/mL (50 - 75 nmol/L) Sufficiency 30 - 100 ng/mL (75 - 250 nmol/L) Toxicity >100 ng/mL (>250 nmol/L) RBC Auto (Bld) [#/Vol]Ordere d By: J Luis Mcgill on 06-25-2023 RBC (Bld) [#/Vol] 4.89 10*6/uL 4.6-6.[address] [facility] Serum or plasma calcium mike urement (mass/volume)Ordered By: J Luis Mcgill on 06-25-2023 Calcium [Mass/Vol] 8.6 mg/dL 8.5-10.1 [facility] Serum or plasma creatinine m easurement (mass/volume)Ordered By: J Luis Mcgill on 06-25-2023 Creatinine [Mass/Vol] 0.98 mg/dL 0.70-1.30 [facility] Comment on above: The validity of the calculated GFR & GFRAA in patients over 70 years has not been determined. Clinical correlation is essential. Serum or plasma thyroid stim ulating hormone (TSH) measurement (units/volume)Ordered By: J Luis Mcgill on 06-25-2023 TSH Qn 1.76 uIU/mL 0.358-3.74 [facility] Serum or plasma urea nitroge n measurement (mass/volume)Ordered By: J Luis Mcgill on 06-25-2023 Urea nitrogen [Mass/Vol] 12 mg/dL 7-18 [facility] Thin prep Papanicolaou smear with manual screeningOrdered By: J Luis Mcgill on 06-25-2023 Thin prep Papanicolaou smear with manual screening 3.1 g/dL 3.2-5.0 [facility] Thin prep Papanicolaou smear with manual screening 18 U/L 15-37 [facility] Thin prep Papanicolaou smear with manual screening 5 5-15 [facility] Absolute lymphocyte countOrd ered By: Chapincito Pedersen on 06-19-2023 Lymphocytes Auto (Unsp spec) [#/Vol] 1.15 10*3/uL 0.83-4.51 [facility] Automated lymphocyte count a s percentage of total leukocytesOrdered By: Chapincito Pedersen on 06-19-2023 Lymphocytes/100 WBC Auto (Unsp spec) 12.0 % 19-41 [facility] Basophil percentageOrdered B y: Chapincito Pedersen on 06-19-2023 Basophil percentage 0 SEEN /hpf 0-5 [facility] Basophils/100 WBC (Bld) 0.5 % 0-1 [facility] Chloride [Moles/Vol] 107 mmol/L 98-107 [facility] Eosinophils/100 WBC (Bld) 0.3 % 0-5 [facility] Glucose [Mass/Vol] 105 mg/dL 74-106 [facility] Comment on above: Fasting Glucose resu lt from 100 to 125 mg/dL suggests IMPAIRED HOMEOSTASIS per A.D.A. criteria. Hemoglobin (Bld) [Mass/Vol] 11.3 g/dL 13.0-16.5 [facility] Monocytes/100 WBC (Bld) 13.8 % 0-10 [facility] Neutrophils (Bld) [#/Vol] 6.8 10*3/uL 2.0-7.7 [facility] Neutrophils/100 WBC (Bld) 70.9 % 47-70 [facility] Potassium [Moles/Vol] 4.2 mmol/L 3.5-5.1 [facility] Sodium [Moles/Vol] 140 mmol/L 136-145 [facility] WBC (Bld) [#/Vol] 9.6 10*3/uL 4.4-11.0 [facility] Bilirubin Test strip Ql (U)O rdered By: Chapincito Pedersen on 06-19-2023 Bilirubin Ql (U) Negative Negative [facility] Culture, urineOrdered By: Master Pedersen on 06-19-2023 Bacteria identified Cx Nom (U) Culture exhibits no growth. [facility] Determination of erythrocyte mean corpuscular volume (MCV)Ordered By: Chapincito Pedersen on 06-19-2023 MCV (RBC) [Entitic vol] 77.0 fL 80-94 [facility] Erythrocyte distribution wid th ratioOrdered By: Chapincito Pedersen on 06-19-2023 Erythrocyte distribution width (RBC) [Ratio] 16.4 % 11.6-14.6 [facility] Erythrocyte distribution wid th standard deviationOrdered By: Chapincito Pedersen on 06-19-2023 Erythrocyte distribution width (RBC) [Entitic vol] 46.0 fL 35.1-43.9 [facility] Hematocrit Auto (Bld) [Volum e fraction]Ordered By: Chapincito Pedersen on 06-19-2023 Hematocrit (Bld) [Volume fraction] 38.2 % 40-54 [facility] Immature granulocytes/100 WB C Auto (Bld)Ordered By: Chapincito Pedersen on 06-19-2023 Immature granulocytes/100 WBC (Bld) 2.500 % 0.0-0.9 [facility] Comment on above: IG% - Immature Granu locytes (promyelocytes, myelocytes and metamyelocytes) > 1% indicates that a LEFT SHIFT is Present. Ketones Test strip Ql (U)Ord ered By: Chapincito Pedersen on 06-19-2023 Ketones Ql (U) Negative Negative [facility] Laboratory - Chemistry and C hemistry - challengeOrdered By: Chapincito Pedersen on 06-19-2023 CO2 [Moles/Vol] 30.0 mmol/L 21.0-32.0 [facility] Urea nitrogen/Creatinine [Mass ratio] 14.8 mg/mg 10-20 [facility] Laboratory - Hematology and Cell countsOrdered By: Chapincito Pedersen on 06-19-2023 MCH (RBC) [Entitic mass] 22.8 pg 27.0-32.0 [facility] MCHC (RBC) [Mass/Vol] 29.6 g/dL 32-36 [facility] Nucleated RBC/100 WBC (Bld) [Ratio] 0 % 0-5 [facility] Platelet mean volume (Bld) [Entitic vol] 10.1 fL 6.2-12.0 [facility] Platelets (Bld) [#/Vol] 368 10*3/uL 150-450 [facility] Mucus LM Ql (Urine sed)Order ed By: Chapincito Pedersen on 06-19-2023 Mucus Ql (Urine sed) 0 SEEN /hpf [facility] Nitrite Test strip Ql (U)Ord ered By: Chapincito Pedersen on 06-19-2023 Nitrite Ql (U) Positive Negative [facility] No Panel InformationOrdered By: Chapincito Pedersen on 06-19-2023 Urine RBC 0 SEEN /hpf 0-5 [facility] D-Dimer Quantitative (PE/DVT) 2.74 FEU/ug/m 0.27-0.49 [facility] Comment on above: D-Dimer ELEVATED (>0 .49): Additional studies and clinicalassessments are indicated to conclude diagnosis of:Deep Vein Thrombosis (DVT) or Pulmonary Embolism (PE)CRITICAL VALUE VERIFIED. CALLED TO TABATHA YEH (ER)06/19/23 [id number] Joshua Sainz.RESULTS READ BACK BY SAME. Estimated Creatinine Clearance Calc 59.38 ml/min [facility] Estimated GFR (MDRD) Amer 106 mL/min >60 [facility] Comment on above: GFR Calc Estimated GFR (MDRD) Non-Af Amer 87 mL/min >60 [facility] Comment on above: Non- GFR Calc Protein Test strip Ql (U)Ord ered By: Chapincito Pedersen on 06-19-2023 Protein Ql (U) 30 mg/dl Negative [facility] RBC Auto (Bld) [#/Vol]Ordere d By: Chapincito Pedersen on 06-19-2023 RBC (Bld) [#/Vol] 4.96 10*6/uL 4.6-6.[address] [facility] Serum or plasma calcium mike urement (mass/volume)Ordered By: Chapincito Pedersen on 06-19-2023 Calcium [Mass/Vol] 8.6 mg/dL 8.5-10.1 [facility] Serum or plasma creatinine m easurement (mass/volume)Ordered By: Chapincito Pedersen on 06-19-2023 Creatinine [Mass/Vol] 0.88 mg/dL 0.70-1.30 [facility] Comment on above: The validity of the calculated GFR & GFRAA in patients over 70 years has not been determined. Clinical correlation is essential. Serum or plasma urea nitroge n measurement (mass/volume)Ordered By: Chapincito Pedersen on 06-19-2023 Urea nitrogen [Mass/Vol] 13 mg/dL 7-18 [facility] Squamous epithelial cells de tection in urine sediment by light microscopyOrdered By: Chapincito Pedersen on 06-19-2023 Epithelial cells.squamous LM Ql (Urine sed) 0 SEEN /hpf 0-5 [facility] Thin prep Papanicolaou smear with manual screeningOrdered By: Chapincito Pedersen on 06-19-2023 Thin prep Papanicolaou smear with manual screening 3 5-15 [facility] Urine blood detectionOrdered By: Chapincito Pedersen on 06-19-2023 RBC Ql (U) 10 /ul Negative [facility] Urine clarityOrdered By: Lore Pedersen on 06-19-2023 Clarity (U) Clear Clear [facility] Urine color determinationOrd ered By: Chapincito Pedersen on 06-19-2023 Color (U) Yellow Yellow [facility] Urine glucose detectionOrder ed By: Chapincito Pedersen on 06-19-2023 Glucose Ql (U) 100 mg/dl Normal [facility] Urine leukocyte esterase det ection by dipstickOrdered By: Chapincito Pedersen on 06-19-2023 Leukocyte esterase Test strip Ql (U) 25 /ul Negative [facility] Urine pHOrdered By: Chapincito kirkpatrick on 06-19-2023 pH (U) 6.5 [pH] 5.0 - 8.0 [facility] Urine sediment bacteria coun t by microscopy (number/high power field)Ordered By: Chapincito Pedersen on 06-19-2023 Bacteria LM.HPF (Urine sed) [#/Area] 0 /[HPF] None Seen [facility] Urine specific gravity measu rementOrdered By: Chapincito Pedersen on 06-19-2023 Specific gravity (U) [Rel density] 1.010 1.002-1.030 [facility] Urine urobilinogen measureme ntOrdered By: Chapincito Pedersen on 06-19-2023 Urobilinogen Ql (U) Normal mg/dl Normal [facility] Laboratory - Microbiology an d Antimicrobial susceptibilityOrdered By: J Luis Mcgill on 06-11-2023 SARS-CoV-2 (COVID-19) RNA JOVANA+probe Ql (Unsp spec) SARS-CoV-2 (COVID 19 PCR) [facility] No Panel InformationOrdered By: J Luis Mcgill on 03-04-2023 Homocysteine 15.1 umol/L 3.2-10.7 [facility] Serum or plasma methylmalona te measurement (moles/volume)Ordered By: J Luis Mcgill on 03-04-2023 Methylmalonate [Moles/Vol] 121 nmol/L 0-378 [facility] Comment on above: Performed at: [address] [id number] Director: Paty Aviles MD, Phone: [phone] Absolute lymphocyte countOrd ered By: J Luis Mcgill on 02-16-2023 Lymphocytes Auto (Unsp spec) [#/Vol] 1.28 10*3/uL 0.83-4.51 [facility] Basophil percentageOrdered B y: J Luis Mcgill on 02-16-2023 Basophils/100 WBC (Bld) 0.8 % 0-1 [facility] Eosinophils/100 WBC (Bld) 6.0 % 0-5 [facility] Neutrophils (Bld) [#/Vol] 4.5 10*3/uL 2.0-7.7 [facility] Neutrophils/100 WBC (Bld) 63.2 % 47-70 [facility] WBC (Bld) [#/Vol] 7.1 10*3/uL 4.4-11.0 [facility] Blood erythrocytes count (nu mber/volume)Ordered By: J Luis Mcgill on 02-16-2023 RBC (Bld) [#/Vol] 4.28 10*6/uL 4.6-6.[address] [facility] Blood hemoglobin measurement (mass/volume)Ordered By: J Luis Mcgill on 02-16-2023 Hemoglobin (Bld) [Mass/Vol] 10.6 g/dL 13.0-16.5 [facility] Blood lymphocytes/100 leukoc ytesOrdered By: J Luis Mcgill on 02-16-2023 Lymphocytes/100 WBC (Bld) 17.9 % 19-41 [facility] Blood monocytes/100 leukocyt esOrdered By: J Luis Mcgill on 02-16-2023 Monocytes/100 WBC (Bld) 11.8 % 0-10 [facility] Blood platelet mean volumeOr dered By: J Luis Mcgill on 02-16-2023 Platelet mean volume (Bld) [Entitic vol] 10.9 fL 6.2-12.0 [facility] Determination of erythrocyte mean corpuscular volume (MCV)Ordered By: J Luis Mcgill on 02-16-2023 MCV (RBC) [Entitic vol] 82.9 fL 80-94 [facility] Hematocrit Auto (Bld) [Volum e fraction]Ordered By: J Luis Mcgill 02-16-2023 Hematocrit (Bld) [Volume fraction] 35.5 % 40-54 [facility] Hemoglobin in reticulocytes (mass per reticulocyte)[facility] Hemoglobin (Reticulocytes) [Entitic mass] 22.8 pg 30-35 [facility] Iron measurement (mass/mass) Or[facility]: [facility]-16-[facility]23 Iron (Unsp spec) [Mass/Mass] 19 ug/dL 65-175 [facility] Laboratory - Chemistry and C hemistry - challengeOrdered By: J Luis Artem 02-16-2023 Cobalamin (Vitamin B12) [Mass/Vol] 358 pg/mL 211-911 [facility] Laboratory - Hematology and Cell countsOrdered By: [facility] 02-16-2023 Erythrocyte distribution width (RBC) [Entitic vol] 44.5 fL 35.1-43.9 [facility] Erythrocyte distribution width (RBC) [Ratio] 14.7 % 11.6-14.6 [facility] Immature granulocytes/100 WBC (Bld) 0.300 % 0.0-0.9 [facility] Comment on above: IG% - Immature Granu locytes (promyelocytes, myelocytes and metamyelocytes) > 1% indicates that a LEFT SHIFT is Present. MCH (RBC) [Entitic mass] 24.8 pg 27.0-32.0 [facility] Nucleated RBC/100 WBC (Bld) [Ratio] 0 % 0-5 [facility] MCHC Auto (RBC) [Mass/Vol]Or dered By: J Luis Mcgill on 02-16-2023 MCHC (RBC) [Mass/Vol] 29.9 g/dL 32-36 [facility] No Panel InformationOrdered By: J Luis Artem 02-16-2023 Immature Reticulocyte Fraction 15.90 % 3.00-15.90 [facility] Reticulocyte Count 0.99 % 0.5-1.5 [facility] Total Iron Binding Capacity 415 ug/dL 250-450 [facility] Platelets bldOrdered By: J Luis Artem on 02-16-2023 Platelets (Bld) [#/Vol] 369 10*3/uL 150-450 [facility] Serum or plasma ferritin josh surement (mass/volume)Ordered By: J Luis Mcgill on 02-16-2023 Ferritin [Mass/Vol] 14 ng/mL 26-[address] [facility] Serum or plasma folate measu rement (mass/volume)Ordered By: J Luis Mcgill on 02-16-2023 Folate [Mass/Vol] 5.30 ng/mL 3.1-55.4 [facility] Serum or plasma iron saturat ion measurement (mass fraction)Ordered By: J Luis Mcgill on 02-16-2023 Iron saturation [Mass fraction] 4.6 % 15.0-55.0 [facility] Absolute lymphocyte countOrd ered By: J Luis Mcgill on 02-10-2023 Lymphocytes Auto (Unsp spec) [#/Vol] 1.03 10*3/uL 0.83-4.51 [facility] Basophil percentageOrdered B y: J Luis [place] on 02-10-2023 Basophils/100 WBC (Bld) 0.6 % 0-1 [facility] Bilirubin [Mass/Vol] 0.40 mg/dL 0.20-1.00 [facility] Comment on above: For patients on eltr ombopag therapy, use of Dimension [place] TBIL is not recommended. Chloride [Moles/Vol] 108 mmol/L 98-107 [facility] Eosinophils/100 WBC (Bld) 3.3 % 0-5 [facility] Glucose [Mass/Vol] 104 mg/dL 74-106 [facility] Comment on above: Fasting Glucose resu lt from 100 to 125 mg/dL suggests IMPAIRED HOMEOSTASIS per A.D.A. criteria. Neutrophils (Bld) [#/Vol] 6.1 10*3/uL 2.0-7.7 [facility] Neutrophils/100 WBC (Bld) 71.9 % 47-70 [facility] Potassium [Moles/Vol] 3.8 mmol/L 3.5-5.1 [facility] Protein [Mass/Vol] 6.8 g/dL 6.4-8.2 [facility] Sodium [Moles/Vol] 139 mmol/L 136-145 [facility] WBC (Bld) [#/Vol] 8.4 10*3/uL 4.4-11.0 [facility] Blood erythrocytes count (nu mber/volume)Ordered By: J Luis Mcgill on 02-10-2023 RBC (Bld) [#/Vol] 4.18 10*6/uL 4.6-6.[address] [facility] Blood hemoglobin measurement (mass/volume)Ordered By: J Luis Mcgill on 02-10-2023 Hemoglobin (Bld) [Mass/Vol] 10.1 g/dL 13.0-16.5 [facility] Blood lymphocytes/100 leukoc ytesOrdered By: J Luis Mcgill on 02-10-2023 Lymphocytes/100 WBC (Bld) 12.2 % 19-41 [facility] Blood monocytes/100 leukocyt esOrdered By: J Luis Mcgill on 02-10-2023 Monocytes/100 WBC (Bld) 11.4 % 0-10 [facility] Blood platelet mean volumeOr dered By: J Luis Mcgill on 02-10-2023 Platelet mean volume (Bld) [Entitic vol] 10.7 fL 6.2-12.0 [facility] Determination of erythrocyte mean corpuscular volume (MCV)Ordered By: J Luis Mcgill on 02-10-2023 MCV (RBC) [Entitic vol] 81.8 fL 80-94 [facility] Hematocrit Auto (Bld) [Volum e fraction]Ordered By: J Luis Mcgill on 02-10-2023 Hematocrit (Bld) [Volume fraction] 34.2 % 40-54 [facility] Laboratory - Chemistry and C hemistry - challengeOrdered By: J Luis Mcgill on 02-10-2023 ALP [Catalytic activity/Vol] 129 U/L 45-117 [facility] ALT [Catalytic activity/Vol] 14 U/L 16-61 [facility] CO2 [Moles/Vol] 28.0 mmol/L 21.0-32.0 [facility] Globulin (S) [Mass/Vol] 3.5 g/dL 2.2-4.2 [facility] Urea nitrogen/Creatinine [Mass ratio] 10.1 mg/mg 10-20 [facility] Laboratory - Hematology and Cell countsOrdered By: J Luis Mcgill on 02-10-2023 Erythrocyte distribution width (RBC) [Entitic vol] 42.6 fL 35.1-43.9 [facility] Erythrocyte distribution width (RBC) [Ratio] 14.5 % 11.6-14.6 [facility] Immature granulocytes/100 WBC (Bld) 0.600 % 0.0-0.9 [facility] Comment on above: IG% - Immature Granu locytes (promyelocytes, myelocytes and metamyelocytes) > 1% indicates that a LEFT SHIFT is Present. MCH (RBC) [Entitic mass] 24.2 pg 27.0-32.0 [facility] Nucleated RBC/100 WBC (Bld) [Ratio] 0 % 0-5 [facility] MCHC Auto (RBC) [Mass/Vol]Or dered By: J Luis Mcgill on 02-10-2023 MCHC (RBC) [Mass/Vol] 29.5 g/dL 32-36 [facility] No Panel InformationOrdered By: J Luis Mcgill on 02-10-2023 Estimated GFR (MDRD) Amer 83 mL/min >60 [facility] Comment on above: GFR Calc Estimated GFR (MDRD) Non-Af Amer 68 mL/min >60 [facility] Comment on above: Non- GFR Calc Hepatitis C Antibody Non-Reactive Nonreactive W [facility] Comment on above: Non Reactive: < 0.8 Equivocal: >/= 0.8 to < 1.0 Reactive: >/= 1.0The CDC recommends that a reactive/equivocal HCV antibody result be followed up by the HCV Nucleic Acid Amplificationtest (022911) Thyroid Stimulating Hormone (TSH) 1.34 uIU/mL 0.358-3.74 [facility] Vitamin D 25-Hydroxy 22.8 ng/mL [facility] Comment on above: Vitamin D 25(OH) Sta tus Range Deficiency <20 ng/mL (50nmol/L) Insufficiency 20 - 30 ng/mL (50 - 75 nmol/L) Sufficiency 30 - 100 ng/mL (75 - 250 nmol/L) Toxicity >100 ng/mL (>250 nmol/L) Platelets bldOrdered By: J Luis Mcgill on 02-10-2023 Platelets (Bld) [#/Vol] 346 10*3/uL 150-450 [facility] Serum or plasma albumin mike urement (mass/volume)Ordered By: J Luis Mcgill on 02-10-2023 Albumin [Mass/Vol] 3.3 g/dL 3.2-5.0 [facility] Serum or plasma albumin/glob ulin mass ratioOrdered By: J Luis Mcgill on 02-10-2023 Albumin/Globulin [Mass ratio] 0.9 {ratio} 0.9-2.4 [facility] Serum or plasma calcium mike urement (mass/volume)Ordered By: J Luis Mcgill on 02-10-2023 Calcium [Mass/Vol] 8.6 mg/dL 8.5-10.1 [facility] Serum or plasma creatinine m easurement (mass/volume)Ordered By: J Luis Mcgill on 02-10-2023 Creatinine [Mass/Vol] 1.09 mg/dL 0.70-1.30 [facility] Comment on above: The validity of the calculated GFR & GFRAA in patients over 70 years has not been determined. Clinical correlation is essential. Serum or plasma urea nitroge n measurement (mass/volume)Ordered By: J Luis Mcgill on 02-10-2023 Urea nitrogen [Mass/Vol] 11 mg/dL 7-18 [facility] Thin prep Papanicolaou smear with manual screeningOrdered By: J Luis Mcgill on 02-10-2023 Thin prep Papanicolaou smear with manual screening 15 U/L 15-37 [facility] Thin prep Papanicolaou smear with manual screening 3 5-15 [facility] INHOUSE COVID 19 (ONLY) RAPI D ([id number])Ordered By: Lou Siegel on 05-05-2022 SARS-CoV-2 (COVID-19) RNA JOVANA+probe Ql (Unsp spec) Negative [facility] Work Phone: Inhouse FLU A+B DIRECT AG, ( RAPID) ([id number])Ordered By: Lou Siegel on 05-05-2022 FLUAV+FLUBV Ag Ql (Unsp spec) Negative Normal [facility]; [facility] Work Phone: BNTP ([phone])Ordered By: [employer] Chief Information Officer on 03-26-2022 Natriuretic peptide B (Bld) [Mass/Vol] 10.6 pg/mL Normal 0.0-100.0 [facility] Work Phone: Comment on above: [employer] ADVIA [employer] XP methodology PATIENT NOT FASTINGP ERFORMED BY: ROBERTH LabcoSaint [facility] [id number] [facility] [id number] CNOVon 03-22-2022 CNOV Office Visit ([facility] ) JOHNNIE QUIJANO ([id number]) 1940 M Date Time Provider Department 03/22/22 2:00 PM CHERYL BANSAL [facility] During your visit today, we recorded the following information about you: Temperature Pulse Respiration Blood pressure 99.4 degrees 78/minute 16/minute 122/74 Weight 70.3 kg Cheryl Bansal PA-C 03/22/2022 2:27 PM Signed This note was created using [employer]. Subjective Johnnie Quijano is a 82 year old male. HPI Patient presents with a chief complaint of cough and shortness of breath with wheezing over the past month. He was seen on the and put on prednisone for 12 days and given Tessalon. He is not sure if that helped much. Denies chest pain. No leg pain or swelling. No history of heart failure. Denies any recent fever. He has had nasal congestion as well. Review of Systems Constitutional: Negative. HENT: Positive for congestion. Respiratory: Positive for cough, shortness of breath and wheezing. Cardiovascular: Negative. Gastrointestinal: Negative. Musculoskeletal: Negative. All other systems reviewed and are negative. PAST MEDICAL HISTORY Diagnosis Date Asthma Current Outpatient Medications Medication Sig Dispense Refill rosuvastatin (CRESTOR) 5 mg tablet losartan (COZAAR) 25 mg tablet clopidogrel (PLAVIX) 75 mg tablet fluticasone/salmeterol (ADVAIR HFA INHALATION) Inhale as instructed. BUDESONIDE/FORMOTEROL FUMARATE (SYMBICORT INHALATION) Inhale as instructed. MONTELUKAST SODIUM (SINGULAIR ORAL) Take by mouth. dextromethorphan-guaiF ENesin (MUCINEX DM) 30-600 mg per tablet Take 1 tablet by mouth twice daily for 7 days. 14 tablet 0 amoxicillin-clavulanic acid (AUGMENTIN) 875-125 mg per tablet Take 1 tablet by mouth twice daily for 7 days. 14 tablet 0 doxycycline (VIBRA-TABS) 100 mg tablet Take 1 tablet by mouth twice daily for 7 days. 14 tablet 0 ofloxacin (FLOXIN) 0.3 % otic solution Use 5 Drops in the right ear twice daily for 7 days. 10 mL 0 Benzonatate 200 mg capsule Take 1 capsule by mouth three times daily as needed. (Patient not taking: Reported on 03/22/2022) 21 capsule 0 No current facility-administered medications for this visit. PAST SURGICAL HISTORY Procedure Laterality Date APPENDECTOMY 1998 TONSILLECTOMY AND ADENOIDECTOMY HX UNLISTED PROCEDURE NOSE broken nose repair No family history on file. Social History Tobacco Use Smoking status: Never Smokeless tobacco: Never Objective BP 122/74 Pulse 78 Temp 37.4 ?C (99.4 ?F) Resp 16 Wt 70.3 kg (155 lb) SpO2 99% Physical Exam Vitals reviewed. Constitutional: Appearance: Normal appearance. HENT: Head: Normocephalic and atraumatic. Left Ear: Tympanic membrane, ear canal and external ear normal. Ears: Comments: Left ear normal TM and external auditory canal. Right ear when patient goes to remove his hearing aid he has copious pus drainage coming from the external auditory canal. TM difficult to visualize due to all of the drainage. Nose: Congestion present. Mouth/Throat: Mouth: Mucous membranes are moist. Pharynx: Oropharynx is clear. Cardiovascular: Rate and Rhythm: Normal rate and regular rhythm. Heart sounds: Normal heart sounds. Pulmonary: Effort: Pulmonary effort is normal. Breath sounds: Normal breath sounds. Musculoskeletal: Cervical back: Neck supple. Skin: General: Skin is warm and dry. Neurological: Mental Status: He is alert. Assessment and Plan ASSESSMENT/PLAN: 1. Lower resp. tract infection - ICD9: 519.8, ICD10: J22 (primary diagnosis) I do not have x-ray until 03/25/2022, will empirically cover him with doxycycline and Augmentin. Augmentin will also cover for the otitis media with perforation. Also given ofloxacin drops. Discussed not using his hearing aid for 5 or 6 days or until the drainage stops. Also given Mucinex DM for cough. Tessalon did not seem to help him much. He is oxygenating 99% here. No signs of heart failure on exam. No weight gain from the . Not in any distress. I did order an x-ray for Thursday that he may have done if not improving with this regimen. Also recommended follow-up with PCP. - XR CHEST 2V FRONTAL/LAT 2. Acute otitis media of right ear with perforation - ICD9: 382.01, ICD10: H66.91, H72.91 Cheryl Bansal PA-C Referring Provider: SELF [[id number]] Allergies As of Date: 03/22/2022 Noted Allergy Reaction ASA (ASPIRIN) 02/19/2014 12 - Shortness of Breath IBUPROFEN 02/19/2014 12 - Shortness of Breath Date Reviewed: 2022 Reviewed by: Carina Loo APRN.RAG WILLOW OPERATOR - Fully Assessed Reason for Visit: Cough [28] Cmt: x couple weeks Primary Visit Diagnosis:Lower resp. tract infection [J22] Other Visit Diagnosis:Acute otitis media of right ear with perforation [H66.91, H72.91] Order(s):dextromethorp estrada-guaiFENesin (MUCINEX DM) 30-600 mg per tabletTake 1 tablet by mouth twice daily fo (more content not included)... Normal [facility] CNOVon 2022 CNOV Office Visit ([facility] ) JOHNNIE QUIJANO ([id number]) 1940 M Date Time Provider Department 03/02/22 10:15 AM MARGI, CARINA [facility] During your visit today, we recorded the following information about you: Temperature Pulse Respiration Blood pressure 98.5 degrees 78/minute 16/minute 122/70 Weight 70.8 kg Carina Loo YESI 2022 11:46 AM Signed CC: Patient presents with: Asthma: sob x 1-2 weeks HPI: Johnnie Quijano is a 82 year old male who presents to the office with complaint of SOB for two weeks. Symptoms are staying the same. Associated symptoms includes dry cough, wheezing, and dyspnea. Denies sore throat, nasal congestion, rhinorrhea, facial pain/pressure, hoarse voice, swollen glands, post nasal drip, headache, body aches, fever, ear pressure , fatigue, nausea, vomiting , and diarrhea. Treatments tried include Albuterol MDI/nebulilzer with temporary relief of symptoms. Sick contacts: no. History of asthma, frequent episodes of bronchitis, chronic bronchitis, bronchiectasis or COPD: Yes asthma Smoker: No Seasonal/environmental allergies: No REVIEW OF SYSTEMS Cardiovascular: no chest pain, no chest pressure, no palpitations, and no swelling The patient's pmh, medications, allergies, and past visits are reviewed. PHYSICAL EXAM: BP 122/70 Pulse 78 Temp 36.9 ?C (98.5 ?F) Resp 16 Wt 70.8 kg (156 lb) SpO2 97% General appearance: healthy, alert, cooperative, pleasant, in no acute distress Head: Normocephalic Eyes: conjunctiva pink and moist, no icterus, sclera white, non-injected Ears: Right ear: External ear/canal- Normal, TM - clear with good landmarks. Left ear: External ear/canal- Normal, TM - clear with good landmarks Nose: clear, no sinus tenderness. Oropharynx:No erythema, exudates or tonsillar hypertrophy. Neck:supple and no adenopathy Heart: Negative. RRR without obvious murmur, gallop, or rubs. No ectopy. Lungs: diminished breath sounds, wheezing diffusely, no rales or rhonchi ASSESSMENT/PLAN: 1. Mild intermittent asthma with acute exacerbation - ICD9: 493.92, ICD10: J45.21 No symptoms or exam findings concerning for pneumonia or bronchitis. Start treatment for exacerbation with prednisone burst with taper Continue with albuterol as needed Follow-up with PCP in 3 to 5 days if no improvement in symptoms Prescription instructions reviewed with patient as applicable. Potential red flag symptoms discussed with the patient. Reviewed appropriate action plan to take if red flag symptoms occur. Patient agreeable to treatment plan. Carina Loo APRN.TRACY Loo APRN.CNP 2022 10:46 AM Signed Follow-up with your primary care doctor in 3 to 5 days if you are not improving or sooner for any worsening symptoms Allergies As of Date: 2022 Noted Allergy Reaction ASA (ASPIRIN) 02/19/2014 12 - Shortness of Breath IBUPROFEN 02/19/2014 12 - Shortness of Breath Date Reviewed: 2022 Reviewed by: Carina Loo APRN.CNP - Fully Assessed Reason for Visit: Asthma [11] Cmt: sob x 1-2 weeks Primary Visit Diagnosis:Mild intermittent asthma with acute exacerbation [J45.21] Order(s):Benzonatate 200 mg capsuleTake 1 capsule by mouth three times daily as needed.Disp: 21 capsuleRfl: 0 predniSONE (DELTASONE) 10 mg tabletTake 4 tabs daily x 3 days, then 3 tabs x 3 days, 2 tabs x 3 days, then 1 tab x3 days with food.Disp: 30 tabletRfl: 0 Prescriptions as of 2022 - rosuvastatin (CRESTOR) 5 mg tablet - losartan (COZAAR) 25 mg tablet - clopidogrel (PLAVIX) 75 mg tablet - Benzonatate 200 mg capsule Take 1 capsule by mouth three times daily as needed. - predniSONE (DELTASONE) 10 mg tablet Take 4 tabs daily x 3 days, then 3 tabs x 3 days, 2 tabs x 3 days, then 1 tab x3 days with food. - fluticasone/salmeterol (ADVAIR HFA INHALATION) Inhale as instructed. - BUDESONIDE/FORMOTEROL FUMARATE (SYMBICORT INHALATION) Inhale as instructed. - MONTELUKAST SODIUM (SINGULAIR ORAL) Take by mouth. Problem List As Of Date: 2022 (None) Other instructions from your clinician: Follow-up with your primary care doctor in 3 to 5 days if you are not improving or sooner for any worsening symptoms Prescriptions ordered this encounter Disp Refills Start End BENZONATATE 200 MG CAPSULE 21 c* 0 2022 Route: ORAL Sig: Take 1 capsule by mouth three times daily as needed. PREDNISONE 10 MG TABLET 30 t* 0 2022 03/14/2022 Sig: Take 4 tabs daily x 3 days, then 3 tabs x 3 days, 2 tabs x 3 days, then 1 tab x3 days with food. Encounter Status:Closed by CARINA LOO on 03/02/22 Normal [facility] Absolute lymphocyte counton 09-12-2021 Lymphocytes Auto (Unsp spec) [#/Vol] 1.22 10*3/uL 0.83-4.51 [facility] Work Phone: Basophil percentageon 2021 Basophils/100 WBC (Bld) 0.5 % 0-1 [facility] Work Phone: Chloride [Moles/Vol] 106 mmol/L 98-107 [facility] Work Phone: Eosinophils/100 WBC (Bld) 2.4 % 0-5 [facility] Work Phone: Glucose [Mass/Vol] 141 mg/dL 74-106 [facility] Work Phone: Comment on above: Fasting Glucose resu lt greater than or equal to 126 mg/dL suggests DIABETES MELLITUS per A.D.A. criteria. Neutrophils (Bld) [#/Vol] 7.5 10*3/uL 2.0-7.7 [facility] Work Phone: Neutrophils/100 WBC (Bld) 75.6 % 47-70 [facility] Work Phone: Potassium [Moles/Vol] 3.5 mmol/L 3.5-5.1 [facility] Work Phone: Sodium [Moles/Vol] 138 mmol/L 136-145 [facility] Work Phone: WBC (Bld) [#/Vol] 9.9 10*3/uL 4.4-11.0 [facility] Work Phone: Blood erythrocytes count (nu mber/volume)on 09-12-2021 RBC (Bld) [#/Vol] 5.18 10*6/uL 4.6-6.[address] [facility] Work Phone: Blood hemoglobin measurement (mass/volume)on 09-12-2021 Hemoglobin (Bld) [Mass/Vol] 14.8 g/dL 13.0-16.5 [facility] Work Phone: Blood lymphocytes/100 leukoc yteson 09-12-2021 Lymphocytes/100 WBC (Bld) 12.3 % 19-41 [facility] Work Phone: Blood monocytes/100 leukocyt eson 09-12-2021 Monocytes/100 WBC (Bld) 8.9 % 0-10 [facility] Work Phone: Blood platelet mean volumeon 09-12-2021 Platelet mean volume (Bld) [Entitic vol] 9.6 fL 6.2-12.0 [facility] Work Phone: Determination of erythrocyte mean corpuscular volume (MCV)on 09-12-2021 MCV (RBC) [Entitic vol] 88.6 fL 80-94 [facility] Work Phone: Hematocrit Auto (Bld) [Volum e fraction]on 09-12-2021 Hematocrit (Bld) [Volume fraction] 45.9 % 40-54 [facility] Work Phone: Laboratory - Chemistry and C hemistry - challengeon 09-12-2021 CO2 [Moles/Vol] 24.0 mmol/L 21.0-32.0 [facility] Work Phone: Urea nitrogen/Creatinine [Mass ratio] 12.3 mg/mg 10-20 [facility] Work Phone: Laboratory - Hematology and Cell countson 09-12-2021 Erythrocyte distribution width (RBC) [Entitic vol] 42.5 fL 35.1-43.9 [facility] Work Phone: Erythrocyte distribution width (RBC) [Ratio] 13.1 % 11.6-14.6 [facility] Work Phone: Immature granulocytes/100 WBC (Bld) 0.300 % 0.0-0.9 [facility] Work Phone: Comment on above: IG% - Immature Granu locytes (promyelocytes, myelocytes and metamyelocytes) > 1% indicates that a LEFT SHIFT is Present. MCH (RBC) [Entitic mass] 28.6 pg 27.0-32.0 [facility] Work Phone: Nucleated RBC/100 WBC (Bld) [Ratio] 0 % 0-5 [facility] Work Phone: MCHC Auto (RBC) [Mass/Vol]on 09-12-2021 MCHC (RBC) [Mass/Vol] 32.2 g/dL 32-36 [facility] Work Phone: No Panel Informationon 09-12 Estimated Creatinine Clearance Calc 60.84 ml/min [facility] Work Phone: Estimated GFR (MDRD) Amer 104 mL/min >60 [facility] Work Phone: Comment on above: GFR Calc Estimated GFR (MDRD) Non-Af Amer 86 mL/min >60 [facility] Work Phone: Comment on above: Non- GFR Calc Troponin I High Sensitivity 8 pg/mL 3.0-78.0 [facility] Work Phone: Comment on above: Please Note: New Aleja t Units and Gender Specific Reference Ranges. For more information see Policy Stat Procedure [place] High Sensitivity Troponin (TNIH) and attachments. Platelets bldon 09-12-2021 Platelets (Bld) [#/Vol] 310 10*3/uL 150-450 [facility] Work Phone: Serum or plasma calcium mike urement (mass/volume)on 09-12-2021 Calcium [Mass/Vol] 9.1 mg/dL 8.5-10.1 [facility] Work Phone: Serum or plasma creatinine m easurement (mass/volume)on 09-12-2021 Creatinine [Mass/Vol] 0.89 mg/dL 0.70-1.30 [facility] Work Phone: Comment on above: The validity of the calculated GFR & GFRAA in patients over 70 years has not been determined. Clinical correlation is essential. Serum or plasma urea nitroge n measurement (mass/volume)on 09-12-2021 Urea nitrogen [Mass/Vol] 11 mg/dL 7-18 [facility] Work Phone: Thin prep Papanicolaou smear with manual screeningon 09-12-2021 Thin prep Papanicolaou smear with manual screening 8 5-15 [facility] Work Phone: Urinalysis, Office ([phone])Or dered By: Wilfrido White on 10-24-2019 Bilirubin Ql (U) Negative Normal [facility] Work Phone: Glucose Test strip (U) [Mass/Vol] Negative Normal [facility] Work Phone: Hemoglobin Ql (U) Negative Normal [facility] Work Phone: Ketones Ql (U) Negative Normal [facility] Work Phone: Leukocyte esterase Test strip Ql (U) Negative Normal [facility] Work Phone: Nitrite Ql (U) Negative Normal [facility] Work Phone: pH (U) 6 [pH] Abnormal [facility] Work Phone: Protein Ql (U) Negative Normal [facility] Work Phone: Specific gravity (U) [Rel density] 1.015 1 Normal [facility] Work Phone: Urobilinogen (24H U) [Mass/Time] Normal Normal [facility] Work Phone: Urinalysis, Office ([phone])Or dered By: Wilfrido Bynum on 10-24-2019 Bilirubin Ql (U) Negative Normal [facility]; [facility] Work Phone: Glucose Test strip (U) [Mass/Vol] Negative Normal [facility]; [facility] Work Phone: Hemoglobin Ql (U) Negative Normal [facility]; [facility] Work Phone: Ketones Ql (U) Negative Normal [facility]; [facility] Work Phone: Leukocyte esterase Test strip Ql (U) Negative Normal [facility]; [facility] Work Phone: Nitrite Ql (U) Negative Normal [facility]; [facility] Work Phone: Protein Ql (U) Negative Normal [facility]; [facility] Work Phone: 2018 Novel Coronavirus (COVI D-19), JOVANA ([id number])Ordered By: Media Planner on 08-25-20192018 Novel Coronavirus (COVID-19), JOVANA ([id number]) Not Detected Normal [facility] Work Phone: Comment on above: This test was develo ped and its performance characteristics determinedby [employer]. This test has not been FDA cleared orapproved. This test has been authorized by FDA under an Emergency UseAuthorization (EUA). This test is only authorized for the duration oftime the declaration that circumstances exist justifying theauthorization of the emergency use of in vitro diagnostic tests fordetection of SARS-CoV-2 virus and/or diagnosis of COVID-19 infectionunder section 564(b)(1) of the Act, 21 U.S.C. 360bbb-3(b)(1), unlessthe authorization is terminated or revoked sooner.When diagnostic testing is negative, the possibility of a falsenegative result should be considered in the context of a patient'srecent exposures and the presence of clinical signs and symptomsconsistent with COVID-19. An individual without symptoms of COVID-19and who is not shedding SARS-CoV-2 virus would expect to have anegative (not detected) result in this assay. PATIENT NOT FASTINGP ERFORMED BY: [employer] Tkokfrugaq6110 [facility] [place] [id number] 2018 Novel Coronavirus (COVID-19), JOVANA ([id number]) Not detected Normal [facility]; [facility] Work Phone: Comment on above: This test was develo ped and its performance characteristics determinedby [employer]. This test has not been FDA cleared orapproved. This test has been authorized by FDA under an Emergency UseAuthorization (EUA). This test is only authorized for the duration oftime the declaration that circumstances exist justifying theauthorization of the emergency use of in vitro diagnostic tests fordetection of SARS-CoV-2 virus and/or diagnosis of COVID-19 infectionunder section 564(b)(1) of the Act, 21 U.S.C. 360bbb-3(b)(1), unlessthe authorization is terminated or revoked sooner.When diagnostic testing is negative, the possibility of a falsenegative result should be considered in the context of a patient'srecent exposures and the presence of clinical signs and symptomsconsistent with COVID-19. An individual without symptoms of COVID-19and who is not shedding SARS-CoV-2 virus would expect to have anegative (not detected) result in this assay. PATIENT NOT FASTINGP ERFORMED BY: [employer] Bvfudmhjhp5377 [address] [facility] [place] [id number] Blood Glucose , Office ([phone])Ordered By: Pat Brumfield on 01-02-2017 Glucose Glucometer molar conc (BldC) 96 1 Normal [facility] Work Phone: CBC W/AUTO DIFF WBC ([id number])O rdered By: Media Planner on 01-02-2017 Basophils #/vol (Bld) 0.0 {x10E3/uL} Normal 0.0-0.2 [facility] Work Phone: Comment on above: PATIENT WAS FASTINGP ERFORMED BY: [employer]6[address] [facility] [id number] Basophils (Bld) [#/Vol] 0.0 10*3/uL Normal 0.0-0.2 [facility]; [facility] Work Phone: Comment on above: PATIENT WAS FASTINGP ERFORMED BY: [employer]6370 [facility] [id number] Basophils Auto #/vol (Bld) 0.0 {x10E3/uL} Normal 0.0-0.2 [facility] Work Phone: Basophils/100 WBC (Bld) 0 % Normal [facility] Work Phone: Comment on above: PATIENT WAS FASTINGP ERFORMED BY: [place] [id number] [facility] [id number] Basophils/100 WBC Auto (Bld) 0 % Normal [facility] Work Phone: Eosinophils #/vol (Bld) 0.3 {x10E3/uL} Normal 0.0-0.4 [facility] Work Phone: Comment on above: PATIENT WAS FASTINGP ERFORMED BY: [address] [id number] Eosinophils (Bld) [#/Vol] 0.3 10*3/uL Normal 0.0-0.4 [facility]; [facility] Work Phone: Comment on above: PATIENT WAS FASTINGP ERFORMED BY: [address] [id number] Eosinophils Auto #/vol (Bld) 0.3 {x10E3/uL} Normal 0.0-0.4 [facility] Work Phone: Eosinophils/100 WBC (Bld) 4 % Normal [facility] Work Phone: Comment on above: PATIENT WAS FASTINGP ERFORMED BY: [place] [id number] [facility] [id number] Eosinophils/100 WBC Auto (Bld) 4 % Normal [facility] Work Phone: Erythrocyte distribution width Auto Ratio (RBC) 13.6 % Normal 12.3-15.4 [facility] Work Phone: Erythrocyte distribution width Ratio (RBC) 13.6 % Normal 12.3-15.4 [facility] Work Phone: Comment on above: PATIENT WAS FASTINGP ERFORMED BY: [address] [place] [id number] Hematocrit Auto Volume Fraction (Bld) 42.5 % Normal 37.5-51.0 [facility] Work Phone: Hematocrit Volume Fraction (Bld) 42.5 % Normal 37.5-51.0 [facility] Work Phone: Comment on above: PATIENT WAS FASTINGP ERFORMED BY: [facility] [facility] [id number] Hemoglobin mass conc (Bld) 14.2 g/dL Normal 12.6-17.7 [facility] Work Phone: Comment on above: PATIENT WAS FASTINGP ERFORMED BY: [place] [id number] [facility] [id number] Immature granulocytes #/vol (Bld) 0.0 {x10E3/uL} Normal 0.0-0.1 [facility] Work Phone: Comment on above: PATIENT WAS FASTINGP ERFORMED BY: [place] [id number] [facility] [id number] Immature granulocytes (Bld) [#/Vol] 0.0 10*3/uL Normal 0.0-0.1 [facility]; [facility] Work Phone: Comment on above: PATIENT WAS FASTINGP ERFORMED BY: [place] [id number] [facility] [id number] Immature granulocytes/100 WBC (Bld) 0 % Normal [facility] Work Phone: Comment on above: PATIENT WAS FASTINGP ERFORMED BY: [facility]6370 [facility] [id number] Lymphocytes #/vol (Bld) 1.2 {x10E3/uL} Normal 0.7-3.1 [facility] Work Phone: Comment on above: PATIENT WAS FASTINGP ERFORMED BY: [facility]6[address] [facility] [id number] Lymphocytes (Bld) [#/Vol] 1.2 10*3/uL Normal 0.7-3.1 [facility]; [facility] Work Phone: Comment on above: PATIENT WAS FASTINGP ERFORMED BY: ROBERTH [facility]6370 [facility] [id number] Lymphocytes Auto #/vol (Bld) 1.2 {x10E3/uL} Normal 0.7-3.1 [facility] Work Phone: Lymphocytes/100 WBC (Bld) 18 % Normal [facility] Work Phone: Comment on above: PATIENT WAS FASTINGP ERFORMED BY: ROBERTH [facility]6370 [facility] [id number] Lymphocytes/100 WBC Auto (Bld) 18 % Normal [facility] Work Phone: MCH Auto Entitic mass (RBC) 29.5 pg Normal 26.6-33.0 [facility] Work Phone: MCH Entitic mass (RBC) 29.5 pg Normal 26.6-33.0 [facility] Work Phone: Comment on above: PATIENT WAS FASTINGP ERFORMED BY: [facility]6370 [facility] [id number] MCHC Auto mass conc (RBC) 33.4 g/dL Normal 31.5-35.7 [facility] Work Phone: MCHC mass conc (RBC) 33.4 g/dL Normal 31.5-35.7 [facility] Work Phone: Comment on above: PATIENT WAS FASTINGP ERFORMED BY: ROBERTH OntelaCarm[place] 8672370 [facility] [id number] MCV Auto Entitic volume (RBC) 88 fL Normal 79-97 [facility] Work Phone: MCV Entitic volume (RBC) 88 fL Normal 79-97 [facility] Work Phone: Comment on above: PATIENT WAS FASTINGP ERFORMED BY: [facility]6370 [facility] [id number] Monocytes #/vol (Bld) 0.9 {x10E3/uL} Normal 0.1-0.9 [facility] Work Phone: Comment on above: PATIENT WAS FASTINGP ERFORMED BY: ROBERTH [facility] Klyddf6688 [facility] [id number] Monocytes (Bld) [#/Vol] 0.9 10*3/uL Normal 0.1-0.9 [facility]; [facility] Work Phone: Comment on above: PATIENT WAS FASTINGP ERFORMED BY: [place] [id number] [facility] [id number] Monocytes Auto #/vol (Bld) 0.9 {x10E3/uL} Normal 0.1-0.9 [facility] Work Phone: Monocytes/100 WBC (Bld) 13 % Normal [facility] Work Phone: Comment on above: PATIENT WAS FASTINGP ERFORMED BY: ROBERTH [facility] Qliegp9862 [facility] [id number] Monocytes/100 WBC Auto (Bld) 13 % Normal [facility] Work Phone: Neutrophils #/vol (Bld) 4.4 {x10E3/uL} Normal 1.4-7.0 [facility] Work Phone: Comment on above: PATIENT WAS FASTINGP ERFORMED BY: ROBERTH [facility] Siagjg0627 [facility] [id number] Neutrophils (Bld) [#/Vol] 4.4 10*3/uL Normal 1.4-7.0 [facility]; [facility] Work Phone: Comment on above: PATIENT WAS FASTINGP ERFORMED BY: [place] [id number] [facility] [id number] Neutrophils Auto #/vol (Bld) 4.4 {x10E3/uL} Normal 1.4-7.0 [facility] Work Phone: Neutrophils/100 WBC (Bld) 65 % Normal [facility] Work Phone: Comment on above: PATIENT WAS FASTINGP ERFORMED BY: ROBERTH Andersonlin6370 [facility] [id number] Neutrophils/100 WBC Auto (Bld) 65 % Normal [facility] Work Phone: Platelets #/vol (Bld) 295 {x10E3/uL} Normal 150-379 [facility] Work Phone: Comment on above: PATIENT WAS FASTINGP ERFORMED BY: ROBERTH Friend Pvbnsd2486 [facility] [id number] Platelets (Bld) [#/Vol] 295 10*3/uL Normal 150-379 [facility]; [facility] Work Phone: Comment on above: PATIENT WAS FASTINGP ERFORMED BY: ROBERTH Andersonlin6370 [facility] [id number] Platelets Auto #/vol (Bld) 295 {x10E3/uL} Normal 150-379 [facility] Work Phone: RBC #/vol (Bld) 4.81 {x10E6/uL} Normal 4.14-5.80 [facility] Work Phone: Comment on above: PATIENT WAS FASTINGP ERFORMED BY: ROBERTH Friend Wiqesk5114 [facility] [id number] RBC (Bld) [#/Vol] 4.81 10*6/uL Normal 4.14-5.80 Compr [facility]; [facility] Work Phone: Comment on above: PATIENT WAS FASTINGP ERFORMED BY: ROBERTH [facility] Ggqkko5535 [facility] [id number] RBC Auto #/vol (Bld) 4.81 {x10E6/uL} Normal 4.14-5.80 [facility] Work Phone: WBC #/vol (Bld) 6.9 {x10E3/uL} Normal 3.4-10.8 [facility]pr [facility] Work Phone: Comment on above: PATIENT WAS FASTINGP ERFORMED BY: ROBERTH [facility] Jflozk3920 [facility] [id number] WBC (Bld) [#/Vol] 6.9 10*3/uL Normal 3.4-10.8 Leif [facility]; [facility] Work Phone: Comment on above: PATIENT WAS FASTINGP ERFORMED BY: ROBERTH OntelaTrace AndersonYrzzog0203 [facility] [id number] WBC Auto #/vol (Bld) 6.9 {x10E3/uL} Normal 3.4-10.8 [facility] Work Phone: HgA1C , Office ([phone])Ordere d By: Pat Brumfield on 01-02-2017 Hemoglobin A1c/Hemoglobin.total mass fraction (Bld) 5.6 % Normal 4.6 - 7.1 [facility] Work Phone: LIPID PANEL ([id number])Ordered B y: Media Planner on 01-02-2017 Cholesterol in HDL mass conc 52 mg/dL Normal [facility] Work Phone: Comment on above: PATIENT WAS FASTINGP ERFORMED BY: ROBERTH Solid Soundpercy AndersonKztgoc0458 [facility] [id number] Cholesterol in LDL mass conc 148 mg/dL Abnormal 0-99 [facility] Work Phone: Comment on above: PATIENT WAS FASTINGP ERFORMED BY: ROBERTH OntelaTrace AndersonGogwcz9843 [facility] [id number] Cholesterol in LDL/Cholesterol in HDL mass ratio 2.8 {ratio_units} Normal 0.0-3.6 [facility] Work Phone: Comment on above: LDL/HDL Ratio Men Wo men 1/2 Avg.Risk 1.0 1.5 Avg.Risk 3.6 3.2 2X Avg.Risk 6.2 5.0 3X Avg.Risk 8.0 6.1 PATIENT WAS FASTINGP ERFORMED BY: ROBERTH LabVisibleBrandspercy Yonxrl6647 [facility] [id number] Cholesterol in VLDL mass conc 17 mg/dL Normal 5-40 [facility] Work Phone: Comment on above: PATIENT WAS FASTINGP ERFORMED BY: ROBERTH Lor Larsen6370 [facility] [id number] Cholesterol mass conc 217 mg/dL Abnormal 100-199 Com [facility]hens[facility] Work Phone: Comment on above: PATIENT WAS FASTINGP ERFORMED BY: ROBERTH Larsen6370 [facility] [id number] Triglyceride mass conc 85 mg/dL Normal 0-149 Co [facility] Work Phone: Comment on above: PATIENT WAS FASTINGP ERFORMED BY: ROBERTH Lor Larsen6370 [facility] [id number] METABOLIC PANEL, COMPREHENSI VE ([id number])Ordered By: Media Planner on 01-02-2017 Albumin mass conc 4.3 g/dL Normal 3.5-4.8 Compre[facility] ens[facility] Work Phone: Comment on above: PATIENT WAS FASTINGP ERFORMED BY: ROBERTH Lor Larsen6370 [facility] [id number] Albumin/Globulin mass ratio 2.0 {ratio} Normal 1.2-2.2 [facility] Work Phone: Comment on above: PATIENT WAS FASTINGP ERFORMED BY: ROBERTH Lor Larsen6370 [facility] [id number] ALP [Catalytic activity/Vol] 108 U/L Normal 39-117 [facility]; [facility] Work Phone: Comment on above: PATIENT WAS FASTINGP ERFORMED BY: ROBERTH Lor Andersonlin6370 [facility] [id number] ALP enzyme act/vol 108 [iU]/L Normal 39-117 Compre [facility] Work Phone: Comment on above: PATIENT WAS FASTINGP ERFORMED BY: ROBERTH Lor Andersonlin6370 [facility] [id number] ALT [Catalytic activity/Vol] 16 U/L Normal 0-44 [facility] Medicine; [facility] Work Phone: Comment on above: PATIENT WAS FASTINGP ERFORMED BY: ROBERTH LabTrace AndersonJodsxo8063 [facility] [id number] ALT enzyme act/vol 16 [iU]/L Normal 0-44 [facility] Internal Medicine Work Phone: Comment on above: PATIENT WAS FASTINGP ERFORMED BY: CB [facility] Alpmyf1164 [address] RoadDublin [place] [id number] AST [Catalytic activity/Vol] 21 U/L Normal 0-40 [facility]; [facility] Work Phone: Comment on above: PATIENT WAS FASTINGP ERFORMED BY: CB [facility] Kjdafy0305 [address] RoadDublin [place] [id number] AST enzyme act/vol 21 [iU]/L Normal 0-40 [facility] Internal Medicine Work Phone: Comment on above: PATIENT WAS FASTINGP ERFORMED BY: CB [facility] Hqtjoz1225 [address] RoadDublin [place] [id number] Bilirubin mass conc 0.4 mg/dL Normal 0.0-1.2 Compr ensive Internal Medicine Work Phone: Comment on above: PATIENT WAS FASTINGP ERFORMED BY: CB [facility] Ocfknp2190 [address] RoadDublin [place] [id number] Calcium mass conc 9.3 mg/dL Normal 8.6-10.2 Compreh ensive Internal Medicine Work Phone: Comment on above: PATIENT WAS FASTINGP ERFORMED BY: CB [facility] Norfrs3685 [address] RoadDublin [place] [id number] Chloride molar conc 101 mmol/L Normal 96-106 Compr ensive Internal Medicine Work Phone: Comment on above: PATIENT WAS FASTINGP ERFORMED BY: CB [facility] Iajmgf1098 [address] RoadDublin [place] [id number] CO2 molar conc 24 mmol/L Normal 18-29 Comprehens andre Internal Medicine Work Phone: Comment on above: PATIENT WAS FASTINGP ERFORMED BY: CB [facility] Ajeuby8595 [address] RoadDublin [place] [id number] Creatinine mass conc 0.84 mg/dL Normal 0.76-1.27 [facility] Work Phone: Comment on above: PATIENT WAS FASTINGP ERFORMED BY: ROBERTH [facility]Co Keftlr0059 [address] RoadDublin [place] [id number] GFR/1.73 sq M predicted among blacks CKD-EPI vol rate/area (S/P/Bld) 97 mL/min/1.73 Normal [facility] Work Phone: Comment on above: PATIENT WAS FASTINGP ERFORMED BY: ROBERTH LabCopercy AndersonIoysnu8307 [address] Roadblin [place] [id number] GFR/1.73 sq M predicted among non-blacks CKD-EPI vol rate/area (S/P/Bld) 84 mL/min/1.73 Normal Comprehensiv e Internal Medicine Work Phone: Comment on above: PATIENT WAS FASTINGP ERFORMED BY: ROBERTH LeniTrace AndersonObrqmp[address] [facility] [place] [id number] Globulin Calculated mass conc (S) 2.2 g/dL Normal 1.5-4.5 [facility] Work Phone: Globulin mass conc (S) 2.2 g/dL Normal 1.5-4.5 Co mprehensive Internal Medicine Work Phone: Comment on above: PATIENT WAS FASTINGP ERFORMED BY: ROBERTH LabTrace AndersonIleshi67[address] [facility] [place] [id number] Glucose mass conc 98 mg/dL Normal 65-99 Compreh ensive Internal Medicine Work Phone: Comment on above: PATIENT WAS FASTINGP ERFORMED BY: ROBERTH LabCopercy AndersonHirikt48[address] [facility] [place] [id number] Potassium molar conc 4.9 mmol/L Normal 3.5-5.2 Comp rehensive Internal Medicine Work Phone: Comment on above: PATIENT WAS FASTINGP ERFORMED BY: ROBERTH LabCopercy AndersonJskwyy[address] [facility] [place] [id number] Protein mass conc 6.5 g/dL Normal 6.0-8.5 Compreh ensive Internal Medicine Work Phone: Comment on above: PATIENT WAS FASTINGP ERFORMED BY: ROBERTH LabCopercy AndersonZoivcw0434 [facility] [id number] Sodium molar conc 143 mmol/L Normal 134-144 Compreh ensive Internal Medicine Work Phone: Comment on above: PATIENT WAS FASTINGP ERFORMED BY: ROBERTH Lor Andersonlin6370 [facility] [id number] Urea nitrogen mass conc 11 mg/dL Normal 8-27 [facility] Work Phone: Comment on above: PATIENT WAS FASTINGP ERFORMED BY: ROBERTH [facility] Arpghx4980 [facility] [id number] Urea nitrogen/Creatinine mass ratio 13 mg/mg Normal 10-24 [facility] Work Phone: Comment on above: PATIENT WAS FASTINGP ERFORMED BY: ROBERTH [facility]iP[facility] Ijsqxl6174 [facility] [id number] MICROALBUMINOrdered By: Syst em Chief Information Officer on 01-02-2017 Albumin DL <= 20 mg/L mass conc (U) 8.6 ug/mL Normal [facility] Work Phone: Comment on above: PATIENT WAS FASTINGP ERFORMED BY: ROBERTH [facility]iP[facility]isc[facility] Cvkxit6882 [facility] [id number] Albumin/Creatinine mass ratio (U) 3.3 {mg/g_creat} Normal 0.0-30.0 [facility] Work Phone: Comment on above: PATIENT WAS FASTINGP ERFORMED BY: ROBERTH [facility]6370 [facility] [id number] Creatinine mass conc (U) 260.0 mg/dL Normal [facility] Work Phone: Comment on above: PATIENT WAS FASTINGP ERFORMED BY: ROBERTH [facility]6370 [facility] [id number] Microscopic ExaminationOrder ed By: Media Planner on 01-02-2017 Bacteria LM.HPF #/area (Urine sed) Few Normal [facility] Work Phone: Crystals LM Nom (Urine sed) Calcium Oxalate Normal [facility] Work Phone: Epithelial cells LM.HPF #/area (Urine sed) 0-10 Normal 0 - 10 [facility] Work Phone: Mucus LM Ql (Urine sed) Present Normal [facility] Work Phone: RBC LM.HPF #/area (Urine sed) 0-2 Normal 0 - 2 [facility] Work Phone: Unidentified crystals LM Ql (Urine sed) Present Abnormal [facility] Work Phone: WBC LM.HPF #/area (Urine sed) 0-5 Normal 0 - 5 [facility] Work Phone: TSH ([phone])Ordered By: Syste m Chief Information Officer on 01-02-2017 Thyrotropin Qn 2.270 {uIU/mL} Normal 0.450-4.500 Compr ehensive Internal Medicine Work Phone: Comment on above: PATIENT WAS FASTINGP ERFORMED BY: ROBERTH [facility] Ipudud7229 [address] RoadDublin [place] [id number] URINALYSIS, W/ MICRO ([id number]) Ordered By: Media Planner on 01-02-2017 Appearance Nom (U) Clear Normal Compre hensive Internal Medicine Work Phone: Comment on above: PATIENT WAS FASTINGP ERFORMED BY: ROBERTH [facility] Opgmbv5937 [address] RoadDublin [place] [id number] Bilirubin Ql (U) Negative Normal Comprehe nsive Internal Medicine Work Phone: Comment on above: PATIENT WAS FASTINGP ERFORMED BY: ROBERTH [facility] Vlcowc2716 [address] RoadDublin [place] [id number] Bilirubin Ql (U) Negative Normal Comprehe nsive Internal Medicine; [facility] Work Phone: Comment on above: PATIENT WAS FASTINGP ERFORMED BY: CB [facility] Agbdwn3327 [address] RoadDublin [place] [id number] Color Nom (U) Yellow Normal Comprehensi ve Internal Medicine Work Phone: Comment on above: PATIENT WAS FASTINGP ERFORMED BY: CB [facility] Wzzrez9259 [address] RoadDublin [place] [id number] Glucose Ql (U) Negative Normal Comprehens andre Internal Medicine Work Phone: Comment on above: PATIENT WAS FASTINGP ERFORMED BY: ROBERTH [facility] Zsvhyj1402 [address] RoadDublin [place] [id number] Glucose Ql (U) Negative Normal Comprehens andre Internal Medicine; [facility] Work Phone: Comment on above: PATIENT WAS FASTINGP ERFORMED BY: ROBERTH [facility] Ktwzkj0575 [address] RoadDublin [place] [id number] Hemoglobin Ql (U) Negative Normal Compreh ensive Internal Medicine Work Phone: Comment on above: PATIENT WAS FASTINGP ERFORMED BY: ROBERTH [facility] Qtgbfs6578 [address] RoadDublin [place] [id number] Hemoglobin Ql (U) Negative Normal Compreh ensive Internal Medicine; [facility] Work Phone: Comment on above: PATIENT WAS FASTINGP ERFORMED BY: ROBERTH [facility] Qpkwno7913 [address] RoadDublin [place] [id number] Hemoglobin Test strip Ql (U) Negative Normal [facility] Work Phone: Ketones Ql (U) Negative Normal Comprehens andre Internal Medicine Work Phone: Comment on above: PATIENT WAS FASTINGP ERFORMED BY: ROBERTH LabTrace AndersonQuidow0295 [address] RoadDublin [place] [id number] Ketones Ql (U) Negative Normal Comprehens andre Internal Medicine; [facility] Work Phone: Comment on above: PATIENT WAS FASTINGP ERFORMED BY: ROBERTH [facility] Qrecsr1700 [address] RoadDublin [place] [id number] Leukocyte esterase Test strip Ql (U) Negative Normal [facility] Work Phone: Comment on above: PATIENT WAS FASTINGP ERFORMED BY: ROBERTH [facility] Vvvdmi5169 [address] RoadDublin [place] [id number] Leukocyte esterase Test strip Ql (U) Negative Normal [facility]; [facility] Work Phone: Comment on above: PATIENT WAS FASTINGP ERFORMED BY: ROBERTH [facility] Pbpxrz4852 [address] RoadDublin [place] [id number] Microscopic observation LM Nom (Urine sed) See below: Normal [facility] Work Phone: Comment on above: Microscopic was zander cated and was performed. PATIENT WAS FASTINGP ERFORMED BY: ROBERTH LabTrace AndersonEqcxmr2913 [address] Roadblin [place] [id number] Microscopic observation LM Nom (Urine sed) MICRON Normal [facility] Work Phone: Comment on above: Microscopic follows if indicated. PATIENT WAS FASTINGP ERFORMED BY: ROBERTH LabCopercy AndersonPzyypd6657 [address] Roadblin [place] [id number] Nitrite Ql (U) Negative Normal Comprehens andre Internal Medicine Work Phone: Comment on above: PATIENT WAS FASTINGP ERFORMED BY: ROBERTH LabTrace AndersonRsbxmk5860 [address] Roadblin [place] [id number] Nitrite Ql (U) Negative Normal Comprehens andre Internal Medicine; [facility] Work Phone: Comment on above: PATIENT WAS FASTINGP ERFORMED BY: ROBERTH LabP[facility] Kgmqxh1262 [address] Roadblin [place] [id number] Nitrite Test strip Ql (U) Negative Normal [facility] Work Phone: pH (U) 5.5 [pH] Normal 5.0-7.5 [facility] Work Phone: Comment on above: PATIENT WAS FASTINGP ERFORMED BY: ROBERTH LabTrace AndersonDudxgn13[address] [facility]bl[facility] [place] [id number] pH Test strip (U) 5.5 [pH] Normal 5.0-7.5 Compreh ensive Internal Medicine Work Phone: Protein Ql (U) Trace Normal Comprehens andre Internal Medicine Work Phone: Comment on above: PATIENT WAS FASTINGP ERFORMED BY: ROBERTH [facility]Co Kmapti09[address] [facility]bl[facility] [place] [id number] Protein Test strip Ql (U) Trace Normal [facility] Work Phone: Specific gravity Relative Density (U) 1.026 1 Normal 1.005-1.030 Comprehensi ve Internal Medicine Work Phone: Comment on above: PATIENT WAS FASTINGP ERFORMED BY: [facility] Yxcgri0887 [address] RoadCritical Access Hospitalin [place] [id number] Urobilinogen (U) [Mass/Vol] 0.2 mg/dL Normal 0.2-1.0 [facility]; [facility] Work Phone: Comment on above: PATIENT WAS FASTINGP ERFORMED BY: [facility] Lhbovm5071 [address] RoadDuin [place] [id number] Urobilinogen Test strip mass conc (U) 0.2 mg/dL Normal 0.2-1.0 Comprehensiv e Internal Medicine Work Phone: Comment on above: PATIENT WAS FASTINGP ERFORMED BY: [facility] Wjhqfp0422 [address] [facility] [id number] Rapid Flu (39805 x 2)Ordered By: Cheng Acosta on 03-14-2016 FLUAV Ag IA Ql (Throat) Negative Normal [facility] Work Phone: Rapid Flu (71480 x 2)on 02-21 FLUAV Ag IA Ql (Throat) Negative Normal [facility]; [facility] Work Phone: Blood Glucose , Office ([phone])Ordered By: Danyell Pearl on 05-19-2014 Glucose Glucometer molar conc (BldC) 98 1 Normal [facility] Work Phone: HgA1C , Office ([phone])Ordere d By: Alyssa Osuna on 05-19-2014 Hemoglobin A1c/Hemoglobin.total mass fraction (Bld) 6.2 % Normal 4.6 - 7.1 Comprehensiv e Internal Medicine Work Phone: Basic Metabolic Profile (BMP )Ordered By: Media Planner on 05-05-2014 Calcium mass conc 8.4 mg/dL Abnormal 8.5-10.1 Compreh ensive Internal Medicine Work Phone: Chloride molar conc 105 mmol/L Normal 98-107 Compr ehensive Internal Medicine Work Phone: CO2 molar conc 28.0 mmol/L Normal 21.0-32.0 Comprehen sive Internal Medicine Work Phone: Creatinine mass conc 0.9 mg/dL Normal 0.8-1.3 [facility] Work Phone: Glucose mass conc 117 mg/dL Abnormal 70-110 Compreh ensive Internal Medicine Work Phone: Comment on above: Fasting Glucose resu lt from 110 to <126 mg/dLsuggests IMPAIRED HOMEOSTASIS per A.D.A. criteria. Potassium molar conc 3.7 mmol/L Normal 3.5-5.1 [facility] Work Phone: Sodium molar conc 138 mmol/L Normal 136-145 Compreh ensive Internal Medicine Work Phone: Urea nitrogen mass conc 8 mg/dL Normal 7-18 [facility] Work Phone: Basic Metabolic Profile (BMP) 67.56 ml/min Normal [facility] Work Phone: Basic Metabolic Profile (BMP) 5 1 Normal 5-15 [facility] Work Phone: Basic Metabolic Profile (BMP) 8.9 {RATIO} Abnormal 10-20 [facility] Work Phone: CBC W/Diff, AutomatedOrdered By: Media Planner on 05-05-2014 Absolute Lymph 0.68 {X10_3/ul} Abnormal 0.83-4.51 Compr [facility] Internal Medicine Work Phone: Absolute Neut 7.8 {X10_3/uL} Abnormal 2.0-7.7 Compreh [facility] Internal Medicine Work Phone: Basophils/100 WBC Auto (Bld) 0.1 % Normal 0-1 [facility] Work Phone: Eosinophils/100 WBC Auto (Bld) 0.5 % Normal 0-5 [facility] Work Phone: Erythrocyte distribution width Auto Ratio (RBC) 13.1 % Normal 11.6-14.6 [facility] Work Phone: Hematocrit Auto Volume Fraction (Bld) 42.7 % Normal 40-54 [facility] Work Phone: Hemoglobin mass conc (Bld) 14.2 g/dL Normal 13.0-16.5 [facility] Work Phone: IM GRAN % 0.600 % Normal 0.0-0.9 [facility] Work Phone: Comment on above: IG% - Immature Granu locytes (promyelocytes, myelocytes andmetamyelocytes) > 1% indicates that a LEFT SHIFT is Present. Lymphocytes/100 WBC Auto (Bld) 7.4 % Abnormal 19-41 [facility] Work Phone: MCH Auto Entitic mass (RBC) 29.9 pg Normal 27.0-32.0 [facility] Work Phone: MCHC Auto mass conc (RBC) 33.3 {g/gl} Normal 32-36 [facility] Work Phone: MCV Auto Entitic volume (RBC) 89.9 fL Normal 80-94 [facility] Work Phone: Monocytes/100 WBC Auto (Bld) 7.0 % Normal 0-10 [facility] Work Phone: Monocytes/100 WBC Auto (Bld) 7.0 % Normal 0-10 [facility] Work Phone: Neutrophils/100 WBC Auto (Bld) 84.4 % Abnormal 47-70 [facility] Work Phone: Platelet mean volume Auto Entitic volume (Bld) 9.6 fL Normal 6.2-12.0 [facility] Internal Medicine Work Phone: Platelets Auto #/vol (Bld) 254 10*3/uL Normal 150-450 [facility] Work Phone: RBC Auto #/vol (Bld) 4.75 {M/mm3} Normal 4.6-6.2 Co mprehensive Internal Medicine Work Phone: RDW SD 42.8 fL Normal 35.1-43.9 [facility] Internal Medicine Work Phone: WBC Auto #/vol (Bld) 9.2 10*3/uL Normal 4.4-11.0 [facility] prehensive Internal Medicine Work Phone: CBC W/Diff, Automated 42.8 fL Normal 35.1-43.9 [facility] prehensive Internal Medicine Work Phone: CBC W/Diff, Automated 7.8 {X10_3/uL} Abnormal 2.0-7.7 [facility] Work Phone: CBC W/Diff, Automated 0.600 % Normal 0.0-0.9 [facility] prehensive Internal Medicine Work Phone: Comment on above: IG% - Immature Granu locytes (promyelocytes, myelocytes andmetamyelocytes) > 1% indicates that a LEFT SHIFT is Present. CBC W/Diff, Automated 0.68 {X10_3/ul} Abnormal 0.83-4.51 [facility] Work Phone: CBC WITH MANUAL DIFF ([phone]) Ordered By: Media Planner on 09-02-2010 Basophils #/vol (Bld) 0.0 {x10E3/uL} Normal 0.0-0.2 [facility] Work Phone: Comment on above: PATIENT WAS FASTINGP ERFORMED BY: S7 LipoSciVLinks [employer] Fwr9511 [facility] [id number] BY: Valencell70 [facility] [id number] Basophils (Bld) [#/Vol] 0.0 10*3/uL Normal 0.0-0.2 [facility]; [facility] Work Phone: Comment on above: PATIENT WAS FASTINGP ERFORMED BY: LipoSciVLinks Media Ixa0039 [facility] [id number] BY: Solid SoundSaint Peter's University HospitalFbdvcs8845 [facility] [id number] Basophils Auto #/vol (Bld) 0.0 {x10E3/uL} Normal 0.0-0.2 [facility] Work Phone: Basophils/100 WBC (Bld) 1 % Normal 0-3 [facility] Work Phone: Comment on above: PATIENT WAS FASTINGP ERFORMED BY: LipJuvent [employer] [place] [address] [id number] BY: Solid SoundSaint Peter's University HospitalUrdqyv5240 [facility] [id number] Basophils/100 WBC Auto (Bld) 1 % Normal 0-3 [facility] Work Phone: Eosinophils #/vol (Bld) 0.5 {x10E3/uL} Abnormal 0.0-0.4 [facility] Work Phone: Comment on above: PATIENT WAS FASTINGP ERFORMED BY: LipoSciVLinks Media Iop[address] [place] [address] [id number] BY: [facility] HospitalVisibleBrandsStephen Ville 9614370 [facility] [id number] Eosinophils (Bld) [#/Vol] 0.5 10*3/uL Abnormal 0.0-0.4 [facility]; [facility] Work Phone: Comment on above: PATIENT WAS FASTINGP ERFORMED BY: LipoSciOpTier[address] [place] [address] [id number] BY: [facility] HospitalVisibleBrandsSaint Peter's University HospitalAptwab9807 [facility] [id number] Eosinophils Auto #/vol (Bld) 0.5 {x10E3/uL} Abnormal 0.0-0.4 [facility] Work Phone: Eosinophils/100 WBC (Bld) 7 % Normal 0-7 [facility] Work Phone: Comment on above: PATIENT WAS FASTINGP ERFORMED BY: LipoSciPlateno Hotel Group[address] [place] [address] [id number] BY: [place] [id number] [facility] [id number] Eosinophils/100 WBC Auto (Bld) 7 % Normal 0-7 [facility] Work Phone: Erythrocyte distribution width Auto Ratio (RBC) 14.2 % Normal 11.7-15.0 [facility] Work Phone: Erythrocyte distribution width Ratio (RBC) 14.2 % Normal 11.7-15.0 [facility] Work Phone: Comment on above: PATIENT WAS FASTINGP ERFORMED BY: [employer]oScience Skz9749 [facility] [id number] BY: ROBERTH [facility] Khvysk9295 [address]acio RoadDublin [place] [id number] Hematocrit Auto Volume Fraction (Bld) 43.7 % Normal 36.0-50.0 [facility] Work Phone: Hematocrit Volume Fraction (Bld) 43.7 % Normal 36.0-50.0 [facility] Work Phone: Comment on above: PATIENT WAS FASTINGP ERFORMED BY: [employer] Dif8031 [facility] [id number] BY: ROBERTH [facility] Guolxm2491 [address]acio RoadCritical Access Hospitalin [place] [id number] Hemoglobin mass conc (Bld) 14.4 g/dL Normal 12.5-17.0 [facility] Work Phone: Comment on above: PATIENT WAS FASTINGP ERFORMED BY: [employer] Ohq5531 [facility] [id number] BY: ROBERTH [facility] Xjbjmz8338 [address] RoadDuin [place] [id number] Immature granulocytes #/vol (Bld) 0.0 {x10E3/uL} Normal 0.0-0.1 [facility] Work Phone: Comment on above: PATIENT WAS FASTINGP ERFORMED BY: [employer] Dos7080 [facility] [id number] BY: ROBERTH [facility] Fkdrjf5999 [address] RoadDuin [place] [id number] Immature granulocytes (Bld) [#/Vol] 0.0 10*3/uL Normal 0.0-0.1 [facility]; [facility] Work Phone: Comment on above: PATIENT WAS FASTINGP ERFORMED BY: [employer] Edb8441 [facility] [id number] BY: ROBERTH [facility] Hedktj5620 [address] RoadDublin [place] [id number] Immature granulocytes/100 WBC (Bld) 0 % Normal 0-2 [facility] Work Phone: Comment on above: Please note refere nce interval change PATIENT WAS FASTINGP ERFORMED BY: S7 [employer] Jum9330 [facility] [id number] BY: ROBERTH [facility] Xtkjug3384 [address] RoadDuin [place] [id number] Lymphocytes #/vol (Bld) 1.6 {x10E3/uL} Normal 0.7-4.5 [facility] Work Phone: Comment on above: PATIENT WAS FASTINGP ERFORMED BY: S7 [employer] Lrr6729 [facility] [id number] BY: ROBERTH [facility] Vszbvy7761 [address] [facility] [id number] Lymphocytes (Bld) [#/Vol] 1.6 10*3/uL Normal 0.7-4.5 [facility]; [facility] Work Phone: Comment on above: PATIENT WAS FASTINGP ERFORMED BY: S7 [employer] Fjy8609 [facility] [id number] BY: ROBERTH [facility] Vlxope4840 [address] [facility] [id number] Lymphocytes Auto #/vol (Bld) 1.6 {x10E3/uL} Normal 0.7-4.5 [facility] Work Phone: Lymphocytes/100 WBC (Bld) 24 % Normal -46 [facility] Work Phone: Comment on above: PATIENT WAS FASTINGP ERFORMED BY: S7 [employer] Zyd0940 [facility] [id number] BY: ROBERTH [facility] Joelwz0458 [address] Roadblin [place] [id number] Lymphocytes/100 WBC Auto (Bld) 24 % Normal 14-46 [facility] Work Phone: MCH Auto Entitic mass (RBC) 29.7 pg Normal 27.0-34.0 [facility] Work Phone: MCH Entitic mass (RBC) 29.7 pg Normal 27.0-34.0 [facility] Internal Medicine Work Phone: Comment on above: PATIENT WAS FASTINGP ERFORMED BY: Freddy LipoScimercyone [facility] Hqd2[address] [place] [address] [id number] BY: ROBERTH Larsen6370 [facility] [id number] MCHC Auto mass conc (RBC) 33.0 g/dL Normal 32.0-36.0 [facility] Work Phone: MCHC mass conc (RBC) 33.0 g/dL Normal 32.0-36.0 [facility] Internal Medicine Work Phone: Comment on above: PATIENT WAS FASTINGP ERFORMED BY: Freddy LipoSci[address] [id number] BY: ROBERTH Andersonlin6370 [facility] [id number] MCV Auto Entitic volume (RBC) 90 fL Normal 80-98 [facility] Work Phone: MCV Entitic volume (RBC) 90 fL Normal 80-98 [facility] Work Phone: Comment on above: PATIENT WAS FASTINGP ERFORMED BY: Freddy LipoScience [address] [id number] BY: ROBERTH Larsen6370 [facility] [id number] Monocytes #/vol (Bld) 0.7 {x10E3/uL} Normal 0.1-1.0 [facility] Work Phone: Comment on above: PATIENT WAS FASTINGP ERFORMED BY: LipoSci[address] [id number] BY: ROBERTH LabTrace AndersonJbqiol1008 [facility] [id number] Monocytes (Bld) [#/Vol] 0.7 10*3/uL Normal 0.1-1.0 [facility]; [facility] Work Phone: Comment on above: PATIENT WAS FASTINGP ERFORMED BY: [employer] Jlc[address] [place] [address] [id number] BY: ROBERTH [facility] Ubairl8580 [address] RoadDublin [place] [id number] Monocytes Auto #/vol (Bld) 0.7 {x10E3/uL} Normal 0.1-1.0 [facility] Work Phone: Monocytes/100 WBC (Bld) 10 % Normal -13 [facility] Work Phone: Comment on above: PATIENT WAS FASTINGP ERFORMED BY: S7 [employer] Igf[address] [place] [address] [id number] BY: ROBERTH LabCopercy AndersonXddzni0479 [address] [facility] [id number] Monocytes/100 WBC Auto (Bld) 10 % Normal -13 [facility] Work Phone: Neutrophils #/vol (Bld) 3.9 {x10E3/uL} Normal 1.8-7.8 [facility] Work Phone: Comment on above: PATIENT WAS FASTINGP ERFORMED BY: Freddy [employer]oScience [address] [place] [address] [id number] BY: ROBERTH LabCopercy AndersonVuwvwm7227 [facility] [id number] Neutrophils (Bld) [#/Vol] 3.9 10*3/uL Normal 1.8-7.8 [facility]; [facility] Work Phone: Comment on above: PATIENT WAS FASTINGP ERFORMED BY: S7 [employer] [address] [place] [address] [id number] BY: ROBERTH [facility] Wkygpe1470 [facility] [id number] Neutrophils Auto #/vol (Bld) 3.9 {x10E3/uL} Normal 1.8-7.8 [facility] Work Phone: Neutrophils/100 WBC (Bld) 58 % Normal 40-74 [facility] Work Phone: Comment on above: PATIENT WAS FASTINGP ERFORMED BY: S7 [employer] Aif3274 [facility] [id number] BY: ROBERTH [facility] Bijlgx5008 Ignacio RoadDublin [place] [id number] Neutrophils/100 WBC Auto (Bld) 58 % Normal 40-74 [facility] Work Phone: Platelets #/vol (Bld) 232 {x10E3/uL} Normal 140-415 [facility] Work Phone: Comment on above: PATIENT WAS FASTINGP ERFORMED BY: S7 [employer] Wbi3246 [facility] [id number] BY: ROBERTH [facility] Zrbbbb4581 Ignacio RoadDublin [place] [id number] Platelets (Bld) [#/Vol] 232 10*3/uL Normal 140-415 [facility]; [facility] Work Phone: Comment on above: PATIENT WAS FASTINGP ERFORMED BY: Freddy LipoScience Tnq1748 [facility] [id number] BY: ROBERTH LabTrace AndersonBcgfyr4624 [address] RoadFormerly [facility], [facility] [id number] Platelets Auto #/vol (Bld) 232 {x10E3/uL} Normal 140-415 [facility] Work Phone: RBC #/vol (Bld) 4.85 {x10E6/uL} Normal 4.10-5.60 [facility] Internal Medicine Work Phone: Comment on above: PATIENT WAS FASTINGP ERFORMED BY: S7 [employer] Xmd9060 [facility] [id number] BY: ROBERTH [facility] Szmtkk9732 Ignacio RoadDublin [place] [id number] RBC (Bld) [#/Vol] 4.85 10*6/uL Normal 4.10-5.60 [facility] Internal Medicine; [facility] Work Phone: Comment on above: PATIENT WAS FASTINGP ERFORMED BY: LipoScience Gus8445 [facility] [id number] BY: ROBERTH LabCo Ggystv9466 [facility] [id number] RBC Auto #/vol (Bld) 4.85 {x10E6/uL} Normal 4.10-5.60 [facility] Work Phone: WBC #/vol (Bld) 6.8 {x10E3/uL} Normal 4.0-10.5 [facility] Internal Medicine Work Phone: Comment on above: PATIENT WAS FASTINGP ERFORMED BY: S7 [employer] Lvq0331 [facility] [id number] BY: LabVisibleBrandsSaint Peter's University HospitalHcfpdb9793 [facility] [id number] WBC (Bld) [#/Vol] 6.8 10*3/uL Normal 4.0-10.5 [facility]; [facility] Work Phone: Comment on above: PATIENT WAS FASTINGP ERFORMED BY: S[address] [place] [address] [id number] BY: Solid SoundSaint Peter's University HospitalNfaxvo2458 [facility] [id number] WBC Auto #/vol (Bld) 6.8 {x10E3/uL} Normal 4.0-10.5 [facility] Work Phone: LIPOPROTEIN, BLD, BY NMR (07 487)Ordered By: Media Planner on 09-02-2010 Cholesterol in HDL mass conc 66 mg/dL Normal [facility] Work Phone: Comment on above: PATIENT WAS FASTINGP ERFORMED BY: LipoSciVLinks Media Mpv0484 [facility] [id number] BY: [place] 6784270 [facility] [id number] Information: [id number],C05554 Cholesterol in LDL mass conc 162 mg/dL Abnormal [facility] Work Phone: Comment on above: . Optimal < 100 Abov e optimal 100 - 129 Borderline 130 - 159 High 160 - 189 Very high > 189 . PATIENT WAS FASTINGP ERFORMED BY: S7 [employer] Pqn3488 [facility] [id number] BY: [facility]6370 [facility] [id number] Information: [id number],T24947 Cholesterol mass conc 244 mg/dL Abnormal Com prehensive Internal Medicine Work Phone: Comment on above: PATIENT WAS FASTINGP ERFORMED BY: S7 [employer] Yqz2204 [facility] [id number] BY: LabCoStephen Ville 9614370 [facility] [id number] Information: [id number] Lipoprotein.alpha molar conc 41.9 umol/L Normal [facility] Internal Medicine Work Phone: Comment on above: PATIENT WAS FASTINGP ERFORMED BY: S7 [employer] Ftm[address] [place] [address] [id number] BY: LabCoSaint Peter's University HospitalIguwfb1419 [facility] [id number] Information: 092488,H12825 Lipoprotein.beta.subpa rticle Entitic length 20.8 nm Normal [facility] Internal Medicine Work Phone: Comment on above: INTERPRETATIVE INFORMATION PARTICLE CONCENTRATION AND SIZE <--Lower CVD Risk Higher CVD Risk--> LDL AND HDL PARTICLES Percentile in Reference Population HDL-P (total) High 75th 50th 25th Low >34.9 34.9 30.5 26.7 <26.7 . Small LDL-P Low 25th 50th 75th High <117 117 527 839 >839 . LDL Size <-Large (Pattern A)-> <-Small (Pattern B)-> 23.0 20.6 20.5 19.0 PATIENT WAS FASTINGP ERFORMED BY: LipoScimercyone clive rehabilitation [facility] Kbc2781 [facility] [id number] BY: ROBERTH LabPemiscot Memorial Health Systems Pogsvc3167 [facility] [id number] Information: 795235,K36949 Lipoprotein.beta.subpa rticle molar conc 2249 nmol/L Abnormal [facility] Work Phone: Comment on above: Low < 1000 Moderate 1000 - 1299 Borderline-High 1300 - 1599 High 1600 - 2000 Very High > 2000 PATIENT WAS FASTINGP ERFORMED BY: [employer] Iuw11[address] [place] [address] [id number] BY: [place] 6784270 [facility] [id number] Information: 203460,G92674 Lipoprotein.beta.subpa rticle.small molar conc 840 nmol/L Abnormal [facility] Work Phone: Comment on above: PATIENT WAS FASTINGP ERFORMED BY: LipoSci[address] [id number] BY: ROBERTH LabCarmen Ville 8672370 [facility] [id number] Information: 136789,A48048 Triglyceride mass conc 78 mg/dL Normal [facility]ensive [facility] Work Phone: Comment on above: PATIENT WAS FASTINGP ERFORMED BY: LipoScimercyone [facility] Htt77[address] [place] [address] [id number] BY: ROBERTH [place] 6107670 [facility] [id number] Information: [id number],R21927 METABOLIC PANEL, COMPREHENSI VE (47231)Ordered By: Media Planner on 09-02-2010 Albumin mass conc 4.2 g/dL Normal 3.5-4.8 Compreh ensive Internal Medicine Work Phone: Comment on above: PATIENT WAS FASTINGP ERFORMED BY: LipoSci[address] Streeteigh [place] [id number] BY: ROBERTH [facility] Gtnqap9228 [address] RoadDublin [place] [id number] Albumin/Globulin mass ratio 2.1 {ratio} Normal 1.1-2.5 [facility] Work Phone: Comment on above: PATIENT WAS FASTINGP ERFORMED BY: S7 [employer] Ucq5235 [facility] [id number] BY: ROBERTH [facility] Pdmldp6922 [address] RoadDublin [place] [id number] ALP [Catalytic activity/Vol] 97 U/L Normal 25-160 [facility]; [facility] Internal Medicine Work Phone: Comment on above: PATIENT WAS FASTINGP ERFORMED BY: S7 [employer] Dxk1937 [facility] [id number] BY: ROBERTH [facility] Hdhngb4287 [address] RoadDublin [place] [id number] ALP enzyme act/vol 97 [iU]/L Normal 25-160 [facility] Internal Medicine Work Phone: Comment on above: PATIENT WAS FASTINGP ERFORMED BY: S7 [employer] Ehn9404 [facility] [id number] BY: ROBERTH [facility] Soupjh9750 [address] RoadDublin [place] [id number] ALT [Catalytic activity/Vol] 16 U/L Normal 0-55 [facility] Internal Medicine; [facility] Internal Medicine Work Phone: Comment on above: PATIENT WAS FASTINGP ERFORMED BY: S7 [employer] Zjj0370 [facility] [id number] BY: ROBERTH [facility] Ltkqiu4770 [address] RoadDublin [place] [id number] ALT enzyme act/vol 16 [iU]/L Normal 0-55 [facility] Internal Medicine Work Phone: Comment on above: PATIENT WAS FASTINGP ERFORMED BY: S7 [employer] Iee9831 [facility] [id number] BY: ROBERTH [facility] Axxabm2461 [address] RoadDublin [place] [id number] AST [Catalytic activity/Vol] 18 U/L Normal 0-40 [facility]; [facility] Work Phone: Comment on above: PATIENT WAS FASTINGP ERFORMED BY: S7 [employer] Qrm9318 [facility] [id number] BY: ROBERTH [facility] Iomlry4218 [address] RoadDublin [place] [id number] AST enzyme act/vol 18 [iU]/L Normal 0-40 Compre hensive Internal Medicine Work Phone: Comment on above: PATIENT WAS FASTINGP ERFORMED BY: S7 [employer] Mas7965 [facility] [id number] BY: ROBERTH [facility] Xiyduj9733 [address] RoadDublin [place] [id number] Bilirubin mass conc 0.3 mg/dL Normal 0.0-1.2 Compr ensive Internal Medicine Work Phone: Comment on above: PATIENT WAS FASTINGP ERFORMED BY: S7 [employer] Srb5636 [facility] [id number] BY: ROBERTH [facility] Jnhwab5327 [address] RoadDublin [place] [id number] Calcium mass conc 9.1 mg/dL Normal 8.6-10.2 Compreh [facility] centerive Internal Medicine Work Phone: Comment on above: PATIENT WAS FASTINGP ERFORMED BY: S7 [employer] Yqd7346 [facility] [id number] BY: ROBERTH [facility] Wgfqxe6799 [address] RoadDublin [place] [id number] Chloride molar conc 105 mmol/L Normal 97-108 Compr ensive Internal Medicine Work Phone: Comment on above: PATIENT WAS FASTINGP ERFORMED BY: S7 [employer] Ked1937 [facility] [id number] BY: ROBERTH [facility] Afuike0191 [address] RoadDublin [place] [id number] CO2 molar conc 26 mmol/L Normal 20-32 Comprehens andre Internal Medicine Work Phone: Comment on above: PATIENT WAS FASTINGP ERFORMED BY: S7 [employer] Sco0825 [facility] [id number] BY: ROBERTH [facility] Lyporo8775 [facility] [id number] Creatinine mass conc 0.96 mg/dL Normal 0.76-1.27 Comp rehensive Internal Medicine Work Phone: Comment on above: PATIENT WAS FASTINGP ERFORMED BY: S7 [employer] Xiw8619 [facility] [id number] BY: ROBERTH [facility] Ulkzfa9625 [facility] [id number] GFR/1.73 sq M predicted among blacks MDRD vol rate/area (S/P/Bld) 91 mL/min/{1.73_m2} Normal Comprehensiv e Internal Medicine Work Phone: Comment on above: Note: A persistent e GFR <60 mL/min/1.73 m2 (3 months or more) mayindicate chronic kidney disease. An eGFR >59 mL/min/1.73 m2 with anelevated urine protein also may indicate chronic kidney disease.Calculated using CKD-EPI formula. PATIENT WAS FASTINGP ERFORMED BY: S7 [employer] Xaa6451 [facility] [id number] BY: ROBERTH LabCo Dgikdm7204 [facility] [id number] GFR/1.73 sq M predicted among non-blacks CKD-EPI vol rate/area (S/P/Bld) 79 mL/min/1.73 Normal Comprehensiv e Internal Medicine Work Phone: Comment on above: PATIENT WAS FASTINGP ERFORMED BY: S7 [employer] Pkj9951 [facility] [id number] BY: LabCo Wfjiby8095 [facility] [id number] Globulin Calculated mass conc (S) 2.0 g/dL Normal 1.5-4.5 [facility] Work Phone: Globulin mass conc (S) 2.0 g/dL Normal 1.5-4.5 [facility]ensive [facility] Work Phone: Comment on above: PATIENT WAS FASTINGP ERFORMED BY: S7 [employer] Fsy6844 [facility] HospitalneilStevens Clinic Hospital [id number] BY: ROBERTH [facility] Mihmyf1374 [address] RoadDublin [place] [id number] Glucose mass conc 94 mg/dL Normal 65-99 Compreh ensive Internal Medicine Work Phone: Comment on above: PATIENT WAS FASTINGP ERFORMED BY: S7 [employer] Upi9274 [facility] [id number] BY: ROBERTH [facility] Grbtak6577 [address] RoadDublin [place] [id number] Potassium molar conc 4.6 mmol/L Normal 3.5-5.2 Comp [facility]ensive [facility] Work Phone: Comment on above: PATIENT WAS FASTINGP ERFORMED BY: S7 LipoScience Toz5879 [facility] [id number] BY: ROBERTH [facility] Gigaqh1400 [address] RoadDublin [place] [id number] Protein mass conc 6.2 g/dL Normal 6.0-8.5 Compreh ensive Internal Medicine Work Phone: Comment on above: PATIENT WAS FASTINGP ERFORMED BY: S7 [employer] Jmd2579 [facility] [id number] BY: ROBERTH [facility] Zikjtg0915 [address] RoadDublin [place] [id number] Sodium molar conc 142 mmol/L Normal 135-145 Compreh ensive Internal Medicine Work Phone: Comment on above: PATIENT WAS FASTINGP ERFORMED BY: S7 [employer]Science Bds0560 [facility] [id number] BY: ROBERTH [facility] Fpfgnf5781 [address] RoadDublin [place] [id number] Urea nitrogen mass conc 11 mg/dL Normal 8-27 [facility] Work Phone: Comment on above: PATIENT WAS FASTINGP ERFORMED BY: S7 [employer] Vkj9770 [facility] [id number] BY: ROBERTH LabTrace AndersonSwjwtb0067 [facility] [id number] Urea nitrogen/Creatinine mass ratio 11 mg/mg Normal 10-22 [facility] Work Phone: Comment on above: PATIENT WAS FASTINGP ERFORMED BY: LipoScimercyone cl[facility] Fjv9225 [facility] [id number] BY: ROBERTH LabCo Wkcvql9981 [facility] [id number] MICROALBUMINOrdered By: Syst em Chief Information Officer on 09-02-2010 Albumin DL <= 20 mg/L mass conc (U) 1.4 ug/mL Normal 0.0-17.0 [facility] Work Phone: Comment on above: PATIENT WAS FASTINGP ERFORMED BY: LipoScimercyone [facility] Qod7658 [facility] [id number] BY: ROBERTH LabPemiscot Memorial Health Systems Impxko9213 [facility] [id number] Albumin/Creatinine mass ratio (U) 0.9 {mg/g_creat} Normal 0.0-30.0 [facility] Work Phone: Comment on above: PATIENT WAS FASTINGP ERFORMED BY: LipoScience Oxq7[address] [place] [address] [id number] BY: ROBERTH Friend Zbnezi7909 [facility] [id number] Creatinine mass conc (U) 159.9 mg/dL Normal 22.0-328.0 [facility] Work Phone: Comment on above: PATIENT WAS FASTINGP ERFORMED BY: LipoScience Rlj0968 [facility] [id number] BY: ROBERTH LabBeaumont Hospital6370 [facility] [id number] Microscopic ExaminationOrder ed By: Media Planner on 09-02-2010 Bacteria LM.HPF #/area (Urine sed) None seen Normal [facility] Work Phone: Epithelial cells LM.HPF #/area (Urine sed) 0-10 Normal 0 - 10 [facility] Work Phone: Mucus LM Ql (Urine sed) Present Normal [facility] Work Phone: RBC LM.HPF #/area (Urine sed) 0-3 Normal 0 - 3 [facility] Work Phone: WBC LM.HPF #/area (Urine sed) 0-5 Normal 0 - 5 [facility] Work Phone: PSA (PROSTATE SPECIFIC ANTIG EN) (V76.44)Ordered By: Media Planner on 09-02-2010 Prostate specific Ag mass conc 1.6 ng/mL Normal 0.0-4.0 [facility] Work Phone: Comment on above: [employer] ECLIA methodol ogy. .According to the [place] [employer], Serum PSA shoulddecrease and remain at undetectable levels after radicalprostatectomy. The AUA defines biochemical recurrence as an initialPSA value 0.2 ng/mL or greater followed by a subsequent confirmatoryPSA value 0.2 ng/mL or greater.Values obtained with different assay methods or kits cannot be usedinterchangeably. Results cannot be interpreted as absolute evidenceof the presence or absence of malignant disease. PATIENT WAS FASTINGP ERFORMED BY: S7 LipTagMii Fep9710 [facility] HospitalDyMyndPeoples HospitalBarcheyachtRegional Hospital of Scranton [id number] BY: byUs.com70 [facility]ight[facility] MedicalNovant Health [facility] [id number] TSH (32624)Ordered By: Syste m Chief Information Officer on 09-02-2010 Thyrotropin Qn 1.660 {uIU/mL} Normal 0.450-4.500 [facility] Internal Medicine Work Phone: Comment on above: PATIENT WAS FASTINGP ERFORMED BY: S7 LipoSciPlateno Hotel Group2500 [facility] HospitalDyMyndStevens Clinic Hospital [id number] BY: [employer] Kouldk7273 [address] [facility] [id number] URINALYSIS, W/ MICRO (80780) Ordered By: Media Planner on 09-02-2010 Appearance Nom (U) Clear Normal Compre [facility] Internal Medicine Work Phone: Comment on above: PATIENT WAS FASTINGP ERFORMED BY: S7 [employer]oScience Ung5318 [facility] [id number] BY: ROBERTH [facility] Nzbeti2652 [address]acio RoadDublin [place] [id number] Bilirubin Ql (U) Negative Normal Comprehe nsive Internal Medicine Work Phone: Comment on above: PATIENT WAS FASTINGP ERFORMED BY: S7 [employer]Science Rks6185 [facility] [id number] BY: ROBERTH [facility] Peffcf4759 [address] RoadDublin [place] [id number] Bilirubin Ql (U) Negative Normal Comprehe nsive Internal Medicine; [facility] Work Phone: Comment on above: PATIENT WAS FASTINGP ERFORMED BY: S7 [employer] Nkz9626 [facility] [id number] BY: ROBERTH [facility] Uidctq5515 [address] RoadDublin [place] [id number] Color Nom (U) Yellow Normal Comprehensi ve Internal Medicine Work Phone: Comment on above: PATIENT WAS FASTINGP ERFORMED BY: S7 [employer] Xdl4330 [facility] [id number] BY: ROBERTH [facility] Vjacik2268 [address] RoadDublin [place] [id number] Glucose Ql (U) Negative Normal Comprehens andre Internal Medicine Work Phone: Comment on above: PATIENT WAS FASTINGP ERFORMED BY: S7 [employer]oScience Fed6100 [facility] [id number] BY: ROBERTH [facility] Wsewpy8480 [address] RoadDublin [place] [id number] Glucose Ql (U) Negative Normal Comprehens andre Internal Medicine; [facility] Work Phone: Comment on above: PATIENT WAS FASTINGP ERFORMED BY: S7 [employer] Qjd1022 [facility] [id number] BY: ROBERTH [facility] Qnckgy8609 [address] RoadDublin [place] [id number] Hemoglobin Ql (U) Negative Normal Compreh ensive Internal Medicine Work Phone: Comment on above: PATIENT WAS FASTINGP ERFORMED BY: S7 [employer] Pnk5157 [facility] [id number] BY: ROBERTH [facility] Lvofps3770 [address] RoadDublin [place] [id number] Hemoglobin Ql (U) Negative Normal Compreh ensive Internal Medicine; [facility] Work Phone: Comment on above: PATIENT WAS FASTINGP ERFORMED BY: S7 [employer] Iso0041 [facility] [id number] BY: ROBERTH [facility] Iwhyon5012 [address] RoadDublin [place] [id number] Hemoglobin Test strip Ql (U) Negative Normal [facility] Work Phone: Ketones Ql (U) Negative Normal Comprehens andre Internal Medicine Work Phone: Comment on above: PATIENT WAS FASTINGP ERFORMED BY: S7 [employer] Wnu5019 [facility] [id number] BY: ROBERTH [facility] Wooohn4126 [address] RoadDublin [place] [id number] Ketones Ql (U) Negative Normal Comprehens andre Internal Medicine; [facility] Work Phone: Comment on above: PATIENT WAS FASTINGP ERFORMED BY: S7 [employer] Qki6002 [facility] [id number] BY: ROBERTH [facility] Scjlbj0361 [address] RoadDublin [place] [id number] Leukocyte esterase Test strip Ql (U) Negative Normal [facility] Work Phone: Comment on above: PATIENT WAS FASTINGP ERFORMED BY: S7 [employer] Bxa6816 [facility] [id number] BY: ROBERTH [facility] Fckpyh6650 [address] RoadDublin [place] [id number] Leukocyte esterase Test strip Ql (U) Negative Normal [facility]; [facility] Work Phone: Comment on above: PATIENT WAS FASTINGP ERFORMED BY: S7 [employer]Science Mii0786 [facility] [id number] BY: ROBERTH [facility] Pipgzf7448 [address] RoadDublin [place] [id number] Microscopic observation LM Nom (Urine sed) MICRON Normal [facility] Work Phone: Comment on above: Microscopic follows if indicated. PATIENT WAS FASTINGP ERFORMED BY: S7 [employer]Science Gfq2577 [facility] [id number] BY: ROBERTH [facility] Jjqbda3828 [address] RoadDublin [place] [id number] Microscopic observation LM Nom (Urine sed) See below: Normal [facility] Work Phone: Comment on above: PATIENT WAS FASTINGP ERFORMED BY: S7 [employer] Atm3130 [facility] [id number] BY: ROBERTH [facility] Fkjmjx8996 [address] RoadDublin [place] [id number] Nitrite Ql (U) Negative Normal Comprehens andre Internal Medicine Work Phone: Comment on above: PATIENT WAS FASTINGP ERFORMED BY: S7 [employer] Aov6268 [facility] [id number] BY: ROBERTH [facility] Onpwmg1742 [address] RoadDublin [place] [id number] Nitrite Ql (U) Negative Normal Comprehens andre Internal Medicine; [facility] Work Phone: Comment on above: PATIENT WAS FASTINGP ERFORMED BY: S7 [employer] Zkj4095 [facility] [id number] BY: ROBERTH [facility] Zzrvlq9940 [address] RoadDublin [place] [id number] Nitrite Test strip Ql (U) Negative Normal [facility] Work Phone: pH (U) 6.5 [pH] Normal 5.0-7.5 [facility] Work Phone: Comment on above: PATIENT WAS FASTINGP ERFORMED BY: S7 [employer] Ize4955 [facility] [id number] BY: ROBERTH [facility] Gnhlhr1129 [address] RoadDublin [place] [id number] pH Test strip (U) 6.5 [pH] Normal 5.0-7.5 Compreh ensive Internal Medicine Work Phone: Protein Ql (U) Negative Normal Comprehens andre Internal Medicine Work Phone: Comment on above: PATIENT WAS FASTINGP ERFORMED BY: [employer] Nyc6239 [facility] [id number] BY: ROBERTH [facility] Qicybb5686 [address] RoadDublin [place] [id number] Protein Ql (U) Negative Normal Comprehens andre Internal Medicine; [facility] Work Phone: Comment on above: PATIENT WAS FASTINGP ERFORMED BY: [employer]oScience Cip6167 [facility] [id number] BY: ROBERTH LabCopercy AndersonWobnyq3245 [address]acio RoadDublin [place] [id number] Protein Test strip Ql (U) Negative Normal [facility] Work Phone: Specific gravity Relative Density (U) 1.020 1 Normal 1.005-1.030 Comprehensi ve Internal Medicine Work Phone: Comment on above: PATIENT WAS FASTINGP ERFORMED BY: [employer] Wsp5271 [facility] [id number] BY: ROBERTH LabCopercy AndersonMqtnop5199 Ign[address] RoadDublin [place] [id number] Urobilinogen (U) [Mass/Vol] 0.2 mg/dL Normal 0.0-1.9 [facility]; [facility] Work Phone: Comment on above: PATIENT WAS FASTINGP ERFORMED BY: S7 [employer] Opa8654 [facility] [id number] BY: ROBERTH [facility] Kypxnh0259 [address] RoadDublin [place] [id number] Urobilinogen Test strip mass conc (U) 0.2 mg/dL Normal 0.0-1.9 Comprehensiv e Internal Medicine Work Phone: Comment on above: PATIENT WAS FASTINGP ERFORMED BY: Freddy [employer] Qfn7931 Itz [facility] [id number] BY: ROBERTH [facility] Xzcsbe7284 [facility] [id number] Microscopic ExaminationOrder ed By: Media Planner on 10-10-2008 Bacteria LM.HPF #/area (Urine sed) None seen Normal [facility] Work Phone: Crystals LM Nom (Urine sed) Calcium Oxalate Normal [facility] Work Phone: Comment on above: Amorphous Sediment Epithelial cells LM.HPF #/area (Urine sed) 0-10 Normal 0 - 10 [facility] Work Phone: Mucus LM Ql (Urine sed) Present Normal [facility] Work Phone: RBC LM.HPF #/area (Urine sed) 0-3 Normal 0 - 3 [facility] Work Phone: Unidentified crystals LM Ql (Urine sed) Present Abnormal [facility] Work Phone: WBC LM.HPF #/area (Urine sed) 0-5 Normal 0 - 5 [facility] Work Phone: Urinalysis, RoutineOrdered B y: Media Planner on 10-10-2008 Appearance Nom (U) Turbid Abnormal Compre hensive Internal Medicine Work Phone: Bilirubin Ql (U) Negative Normal Comprehe nsive Internal Medicine Work Phone: Color Nom (U) Yellow Normal Comprehensi ve Internal Medicine Work Phone: Glucose Ql (U) Negative Normal Comprehens andre Internal Medicine Work Phone: Hemoglobin Test strip Ql (U) Negative Normal [facility] Work Phone: Ketones Ql (U) Trace Abnormal Comprehens andre Internal Medicine Work Phone: Leukocyte esterase Test strip Ql (U) Trace Abnormal [facility] Work Phone: Microscopic observation LM Nom (Urine sed) See below: Normal [facility] Work Phone: Nitrite Test strip Ql (U) Negative Normal [facility] Work Phone: pH Test strip (U) 6.0 [pH] Normal 5.0-7.5 Compreh ensive Internal Medicine Work Phone: Protein Test strip Ql (U) 1+ Abnormal [facility] Work Phone: Specific gravity Relative Density (U) 1.034 1 Abnormal 1.005-1.030 Comprehensi ve Internal Medicine Work Phone: Urobilinogen Test strip mass conc (U) 1.0 mg/dL Normal 0.0-1.9 Comprehensiv e [facility] Medicine Work Phone: C-REACTIVE PROTEIN ([id number])Or dered By: Love Day on 10-09-2008 CRP mass conc 265.7 mg/L Abnormal 0.0-4.9 Comprehensi ve Internal Medicine Work Phone: Comment on above: PATIENT NOT FASTINGP ERFORMED BY: [email or web address] [facility]Nov[facility] [id number] CBC WITH MANUAL DIFF ([id number]) Ordered By: Love Day on 10-09-2008 Basophils #/vol (Bld) 0.0 {x10E3/uL} Normal 0.0-0.2 [facility] Work Phone: Comment on above: stat; PATIENT NOT FA STINGPERFORMED BY: GigoptixNovant [facility] [id number] Basophils (Bld) [#/Vol] 0.0 10*3/uL Normal 0.0-0.2 [facility]; [facility] Work Phone: Comment on above: stat; PATIENT NOT FA STINGPERFORMED BY: [email or web address] [facility]ight[facility] MedicalNov[facility] [id number] Basophils Auto #/vol (Bld) 0.0 {x10E3/uL} Normal 0.0-0.2 [facility] Work Phone: Basophils/100 WBC (Bld) 0 % Normal 0-3 [facility] Work Phone: Comment on above: stat; PATIENT NOT FA STINGPERFORMED BY: CB [facility] Dodjrs9129 [address] [facility] [id number] Basophils/100 WBC Auto (Bld) 0 % Normal 0-3 [facility] Work Phone: Eosinophils #/vol (Bld) 1.0 {x10E3/uL} Abnormal 0.0-0.4 [facility] Work Phone: Comment on above: stat; PATIENT NOT FA STINGPERFORMED BY: CB [facility] Wznyko9450 [address] [facility] [id number] Eosinophils (Bld) [#/Vol] 1.0 10*3/uL Abnormal 0.0-0.4 [facility]; [facility] Work Phone: Comment on above: stat; PATIENT NOT FA STINGPERFORMED BY: CB [facility] Varzef9924 [address] [facility] [id number] Eosinophils Auto #/vol (Bld) 1.0 {x10E3/uL} Abnormal 0.0-0.4 [facility] Work Phone: Eosinophils/100 WBC (Bld) 6 % Normal 0-7 [facility] Work Phone: Comment on above: stat; PATIENT NOT FA STINGPERFORMED BY: CB [facility] Ejuqaj8534 [address] [facility] [id number] Eosinophils/100 WBC Auto (Bld) 6 % Normal 0-7 [facility] Work Phone: Erythrocyte distribution width Auto Ratio (RBC) 13.8 % Normal 11.7-15.0 [facility] Work Phone: Erythrocyte distribution width Ratio (RBC) 13.8 % Normal 11.7-15.0 [facility] Work Phone: Comment on above: stat; PATIENT NOT FA STINGPERFORMED BY: CB [facility] Nlsebq1549 [address] [facility] [id number] Hematocrit Auto Volume Fraction (Bld) 45.8 % Normal 36.0-50.0 [facility] Work Phone: Hematocrit Volume Fraction (Bld) 45.8 % Normal 36.0-50.0 [facility] Work Phone: Comment on above: stat; PATIENT NOT FA STINGPERFORMED BY: ROBERTH Lab[facility] Ikxdhr6286 [facility] [id number] Hemoglobin mass conc (Bld) 15.8 g/dL Normal 12.5-17.0 [facility] Work Phone: Comment on above: stat; PATIENT NOT FA STINGPERFORMED BY: CB [facility] Fdubwm3397 [facility] [id number] Lymphocytes #/vol (Bld) 1.0 {x10E3/uL} Normal 0.7-4.5 [facility] Work Phone: Comment on above: stat; PATIENT NOT FA STINGPERFORMED BY: LabCo Dcjfkw1917 [facility] [id number] Lymphocytes (Bld) [#/Vol] 1.0 10*3/uL Normal 0.7-4.5 [facility]; [facility] Work Phone: Comment on above: stat; PATIENT NOT FA STINGPERFORMED BY: LabCo Bhcwjm4651 [facility] [id number] Lymphocytes Auto #/vol (Bld) 1.0 {x10E3/uL} Normal 0.7-4.5 [facility] Work Phone: Lymphocytes/100 WBC (Bld) 6 % Abnormal - [facility] Work Phone: Comment on above: stat; PATIENT NOT FA STINGPERFORMED BY: LabCo Khdkpi0979 [facility] [id number] Lymphocytes/100 WBC Auto (Bld) 6 % Abnormal 14-46 [facility] Work Phone: MCH Auto Entitic mass (RBC) 31.0 pg Normal 27.0-34.0 [facility] Work Phone: MCH Entitic mass (RBC) 31.0 pg Normal 27.0-34.0 [facility] Internal [facility] Work Phone: Comment on above: stat; PATIENT NOT FA STINGPERFORMED BY: CB [facility] Itldmf6842 [address] [facility] [id number] MCHC Auto mass conc (RBC) 34.4 g/dL Normal 32.0-36.0 [facility] Work Phone: MCHC mass conc (RBC) 34.4 g/dL Normal 32.0-36.0 [facility] Internal [facility] Work Phone: Comment on above: stat; PATIENT NOT FA STINGPERFORMED BY: CB [facility] Hfmsdq2553 [address] [facility] [id number] MCV Auto Entitic volume (RBC) 90 fL Normal 80-98 [facility] Work Phone: MCV Entitic volume (RBC) 90 fL Normal 80-98 [facility] Work Phone: Comment on above: stat; PATIENT NOT FA STINGPERFORMED BY: CB [facility] Avzqbb5986 [address] [facility] [id number] Monocytes #/vol (Bld) 1.5 {x10E3/uL} Abnormal 0.1-1.0 [facility] Work Phone: Comment on above: stat; PATIENT NOT FA STINGPERFORMED BY: CB [facility] Nozjrs4375 [address] [facility] [id number] Monocytes (Bld) [#/Vol] 1.5 10*3/uL Abnormal 0.1-1.0 [facility]; [facility] Work Phone: Comment on above: stat; PATIENT NOT FA STINGPERFORMED BY: CB [facility] Fxlnrp1157 [address] [facility]in [place] [id number] Monocytes Auto #/vol (Bld) 1.5 {x10E3/uL} Abnormal 0.1-1.0 [facility] Work Phone: Monocytes/100 WBC (Bld) 9 % Normal 4-13 [facility] Work Phone: Comment on above: stat; PATIENT NOT FA STINGPERFORMED BY: CB [facility] Zvqsti1284 [address] [facility] [id number] Monocytes/100 WBC Auto (Bld) 9 % Normal 4-13 [facility] Work Phone: Neutrophils #/vol (Bld) 13.0 {x10E3/uL} Abnormal 1.8-7.8 [facility] Work Phone: Comment on above: stat; PATIENT NOT FA STINGPERFORMED BY: CB [facility] Hcmwtq7653 [address] [facility] [id number] Neutrophils (Bld) [#/Vol] 13.0 10*3/uL Abnormal 1.8-7.8 [facility]; [facility] Work Phone: Comment on above: stat; PATIENT NOT FA STINGPERFORMED BY: CB [facility] Ynherj4050 [facility] [id number] Neutrophils Auto #/vol (Bld) 13.0 {x10E3/uL} Abnormal 1.8-7.8 [facility] Work Phone: Neutrophils/100 WBC (Bld) 79 % Abnormal 40-74 [facility] Work Phone: Comment on above: stat; PATIENT NOT FA STINGPERFORMED BY: CB [facility] Xkssdl1420 [facility] [id number] Neutrophils/100 WBC Auto (Bld) 79 % Abnormal 40-74 [facility] Work Phone: Platelets #/vol (Bld) 267 {x10E3/uL} Normal 140-415 [facility] Work Phone: Comment on above: stat; PATIENT NOT FA STINGPERFORMED BY: CB [facility] Dofssd3069 [facility] [id number] Platelets (Bld) [#/Vol] 267 10*3/uL Normal 140-415 [facility]; [facility] Work Phone: Comment on above: stat; PATIENT NOT FA STINGPERFORMED BY: CB [facility] Lbsjfb3404 [address] [facility] [id number] Platelets Auto #/vol (Bld) 267 {x10E3/uL} Normal 140-415 [facility] Work Phone: RBC #/vol (Bld) 5.09 {x10E6/uL} Normal 4.10-5.60 Comp rehensive Internal Medicine Work Phone: Comment on above: stat; PATIENT NOT FA STINGPERFORMED BY: ROBERTH [facility] Afrffa4057 [facility] [id number] RBC (Bld) [#/Vol] 5.09 10*6/uL Normal 4.10-5.60 Compr ensive Internal Medicine; [facility] Work Phone: Comment on above: stat; PATIENT NOT FA STINGPERFORMED BY: LabCoSaint Peter's University HospitalIfyhkt0919 [facility] [id number] RBC Auto #/vol (Bld) 5.09 {x10E6/uL} Normal 4.10-5.60 [facility] Work Phone: WBC #/vol (Bld) 16.5 {x10E3/uL} Abnormal 4.0-10.5 [facility] Work Phone: Comment on above: stat; PATIENT NOT FA STINGPERFORMED BY: LabCoSaint Peter's University HospitalQahbrx2320 [facility] [id number] WBC (Bld) [#/Vol] 16.5 10*3/uL Abnormal 4.0-10.5 Compr ensive Internal Medicine; [facility] Work Phone: Comment on above: stat; PATIENT NOT FA STINGPERFORMED BY: LabCoSaint Peter's University HospitalPyjqvp8862 [facility] [id number] WBC Auto #/vol (Bld) 16.5 {x10E3/uL} Abnormal 4.0-10.5 [facility] Work Phone: METABOLIC PANEL, COMPREHENSI VE ([id number])Ordered By: Love Day on 10-09-2008 Albumin mass conc 3.9 g/dL Normal 3.5-4.8 Compreh [facility] Internal Medicine Work Phone: Comment on above: PATIENT NOT FASTINGP ERFORMED BY: LabCoStephen Ville [id number] [facility] [id number] Albumin/Globulin mass ratio 1.5 {ratio} Normal 1.1-2.5 [facility] Internal Medicine Work Phone: Comment on above: PATIENT NOT FASTINGP ERFORMED BY: CB [facility] Rlwssj0778 Ign[address] RoadDublin [place] [id number] ALP [Catalytic activity/Vol] 144 U/L Normal 25-160 [facility]; [facility] Internal Medicine Work Phone: Comment on above: PATIENT NOT FASTINGP ERFORMED BY: CB [facility] Wqvsyh3456 [address] RoadDublin [place] [id number] ALP enzyme act/vol 144 [iU]/L Normal 25-160 [facility] Internal Medicine Work Phone: Comment on above: PATIENT NOT FASTINGP ERFORMED BY: [facility] Dbuugh1186 [address] RoadDublin [place] [id number] ALT [Catalytic activity/Vol] 24 U/L Normal 0-55 [facility] Internal Medicine; [facility] Internal [facility] Work Phone: Comment on above: PATIENT NOT FASTINGP ERFORMED BY: CB [facility] Nijbnh2846 [address] RoadDublin [place] [id number] ALT enzyme act/vol 24 [iU]/L Normal 0-55 [facility] Internal Medicine Work Phone: Comment on above: PATIENT NOT FASTINGP ERFORMED BY: [facility] Hzbtvz2058 [address] RoadDublin [place] [id number] AST [Catalytic activity/Vol] 27 U/L Normal 0-40 [facility] Internal Medicine; [facility] Internal Medicine Work Phone: Comment on above: PATIENT NOT FASTINGP ERFORMED BY: CB [facility] Zrkhjj6924 [address] RoadDublin [place] [id number] AST enzyme act/vol 27 [iU]/L Normal 0-40 [facility] Internal Medicine Work Phone: Comment on above: PATIENT NOT FASTINGP ERFORMED BY: CB [facility] Vbazoq7667 [address] RoadDublin [place] [id number] Bilirubin mass conc 0.5 mg/dL Normal 0.1-1.2 Compr ehensive Internal Medicine Work Phone: Comment on above: PATIENT NOT FASTINGP ERFORMED BY: ROBERTH LabCopercy Trkesw1162 [address] [facility] [id number] Calcium mass conc 9.3 mg/dL Normal 8.5-10.6 Compreh ensive Internal Medicine Work Phone: Comment on above: PATIENT NOT FASTINGP ERFORMED BY: ROBERTH [facility] Rcplld6009 [facility] [id number] Chloride molar conc 100 mmol/L Normal 97-108 Compr ehensive Internal Medicine Work Phone: Comment on above: PATIENT NOT FASTINGP ERFORMED BY: ROBERTH LabCopercy LarsenXqpakq5796 [facility] [id number] CO2 molar conc 23 mmol/L Normal 20-32 Comprehens andre Internal Medicine Work Phone: Comment on above: PATIENT NOT FASTINGP ERFORMED BY: ROBERTH [facility] Liafgu2876 [facility] [id number] Creatinine mass conc 0.90 mg/dL Normal 0.76-1.27 Comp [facility] Work Phone: Comment on above: PATIENT NOT FASTINGP ERFORMED BY: ROBERTH [facility] Grtyhr9122 [facility] [id number] GFR/1.73 sq M predicted among blacks MDRD vol rate/area (S/P/Bld) mL/min/{1.73_m2} Normal [facility] Work Phone: Comment on above: Note: Persistent red uction for 3 months or more in an eGFR<60 mL/min/1.73 m2 defines CKD. Patients with eGFR values>/=60 mL/min/1.73 m2 may also have CKD if evidence of persistentproteinuria is present. Additional information may be found [email or web address]. PATIENT NOT FASTINGP ERFORMED BY: ROBERTH [facility] Kjjlvj9929 [facility] [id number] GFR/1.73 sq M.predicted MDRD (S/P/Bld) [Vol rate/Area] mL/min/{1.73_m2} Normal [facility] Work Phone: Comment on above: PATIENT NOT FASTINGP ERFORMED BY: ROBERTH Lor Larsen6370 [facility] [id number] GFR/1.73 sq M.predicted MDRD vol rate/area mL/min/{1.73_m2} Normal [facility] Work Phone: Comment on above: PATIENT NOT FASTINGP ERFORMED BY: ROBERTH Lor Larsen6370 [facility] [id number] Globulin Calculated mass conc (S) 2.6 g/dL Normal 1.5-4.5 [facility] Work Phone: Globulin mass conc (S) 2.6 g/dL Normal 1.5-4.5 Co mprehensive Internal Medicine Work Phone: Comment on above: PATIENT NOT FASTINGP ERFORMED BY: ROBERTH Lor Mldelz0752 [facility] [id number] Glucose mass conc 119 mg/dL Abnormal 65-99 Compreh ensive Internal Medicine Work Phone: Comment on above: PATIENT NOT FASTINGP ERFORMED BY: ROBERTH Lor Andersonlin6370 [facility] [id number] Potassium molar conc 3.9 mmol/L Normal 3.5-5.2 Comp rehensive Internal Medicine Work Phone: Comment on above: PATIENT NOT FASTINGP ERFORMED BY: ROBERTH Lor Andersonlin6370 [facility] [id number] Protein mass conc 6.5 g/dL Normal 6.0-8.5 Compreh ensive Internal Medicine Work Phone: Comment on above: PATIENT NOT FASTINGP ERFORMED BY: ROBERTH LabTrace AndersonTsiodn2451 [facility] [id number] Sodium molar conc 138 mmol/L Normal 135-145 Compreh ensive Internal Medicine Work Phone: Comment on above: PATIENT NOT FASTINGP ERFORMED BY: ROBERTH LabCo Sndend6357 [facility] [id number] Urea nitrogen mass conc 9 mg/dL Normal 5- [facility] Work Phone: Comment on above: PATIENT NOT FASTINGP ERFORMED BY: ROBERTH Larsen6370 Sandee JiFormerly [facility], [facility] [id number] Urea nitrogen/Creatinine mass ratio 10 mg/mg Normal 8- [facility] Work Phone: Comment on above: PATIENT NOT FASTINGP ERFORMED BY: ROBERTH CollinsNovant Health [facility] [id number] PELVIS WITH IV CONTRASTOrder ed By: Media Planner on 10-09-2008 PELVIS WITH IV CONTRAST See Note Normal [facility] Work Phone: Comment on above: Exam Number: [id number] CLINICAL:Pain CT ABDOMEN WITH CONTRAST COMPARISON:None. TECHNIQUE:Transaxial imaging was performed post contrast administration. The examination was performed with intravenous administration of 100 ml of Isovue-300 contrast material. Oral contrast also given. FINDINGS:The visualized lower lungs are clear. The visualized heart is normal in size, morphology and position. The liver is normal in size and contour with normal enhancement, and without a demonstrated mass, cyst or dilated intrahepatic bile ducts. The spleen is normal size and contour with normal enhancement. Normal gallbladder and visualized common bile duct (CBD). The pancreas is normal without focal or diffuse enlargement, atrophy or pancreatic calcifications. Normal bilateral adrenal glands. The kidneys are normal in size, location and morphology. The visualized bilateral ureters are normal without a demonstrated hydroureter or ureteral calculus. Normal retroperitoneum without lymphadenopathy or a mass lesion. Normal visualized distal esophagus and stomach. Normal visualized small intestine, without an obstruction or bowel wall edema. There is bowel wall thickening of the colon, with colonic diverticuli, pericolonic fat shredding and fascial thickening consistent with diverticulitis but without pericolonic gas. The region of the appendix is normal without a demonstrated appendicitis, appendicolith or periappendiceal inflammation or mass. There is no peritoneal fluid. There is no demonstrated free peritoneal or extraluminal gas. Normal caliber of the abdominal aorta. Normal caliber of the inferior vena cava. Normal visualized osseous and soft tissue structures in the abdominal region. CT PELVIS WITH CONTRAST COMPARISON:None. TECHNIQUE:Transaxial imaging was performed post contrast administration. The examination was performed with intravenous administration of 100 ml of Isovue-300 contrast material. FINDINGS:Bladder is only partially distended. Bladder wall thickening cannot be excluded. There is prostatic enlargement with normal rebeka-prostatic soft tissue structures suggesting BPH. Correlations with the patient's PSA serum level is recommended. Normal seminal vesicles and seminal vesicle angles. There is no demonstrated pelvic fluid collection. There is no demonstrated pelvic or inguinal lymphadenopathy. Normal loops of small intestines visualized within the pelvis. Sigmoid diverticulitis. Bowel wall thickening with surrounding inflammation. Malt diverticula. No free air or free fluid. Normal visualized pelvic arteries and veins. Normal visualized osseous and soft tissue structures of the pelvis. IMPRESSION:Sigmoid diverticulitis. No free air. No free fluid. Prostate enlargement. Bladder is only partially distended. Bladder wall thickening cannot be excluded. Reported By: TIFFANIE MERA M.D. Exam Number: [id number] CLINICAL:Pain CT ABDOMEN WITH CONTRAST COMPARISON:None. TECHNIQUE:Transaxial imaging was performed post contrast administration. The examination was performed with intravenous administration of 100 ml of Isovue-300 contrast material. Oral contrast also given. FINDINGS:The visualized lower lungs are clear. The visualized heart is normal in size, morphology and position. The liver is normal in size and contour with normal enhancement, and without a demonstrated mass, cyst or dilated intrahepatic bile ducts. The spleen is normal size and contour with normal enhancement. Normal gallbladder and visualized common bile duct (CBD). The pancreas is normal without focal or diffuse enlargement, atrophy or pancreatic calcifications. Normal bilateral adrenal glands. The kidneys are normal in size, location and morphology. The visualized bilateral ureters are normal without a demonstrated hydroureter or ureteral calculus. Normal retroperitoneum without lymphadenopathy or a mass lesion. Normal visualized distal esophagus and stomach. Normal visualized small intestine, without an obstruction or bowel wall edema. There is bowel wall thickening of the colon, with colonic diverticuli, pericolonic fat shredding and fascial thickening consistent with diverticulitis but without pericolonic gas. The region of the appendix is normal without a demonstrated appendicitis, appendicolith or periappendiceal inflammation or mass. There is no peritoneal fluid. There is no demonstrated free peritoneal or extraluminal gas. Normal caliber of the abdominal aorta. Normal caliber of the inferior vena cava. Normal visualized osseous and soft tissue structures in the abdominal region. CT PELVIS WITH CONTRAST COMPARISON:None. TECHNIQUE:Transaxial imaging was performed post contrast administration. The examination was performed with intravenous administration of 100 ml of Isovue-300 contrast material. FINDINGS:Bladder is only partially distended. Bladder wall thickening cannot be excluded. There is prostatic enlargement with normal rebeka-prostatic soft tissue structures suggesting BPH. Correlations with the patient's PSA serum level is recommended. Normal seminal vesicles and seminal vesicle angles. There is no demonstrated pelvic fluid collection. There is no demonstrated pelvic or inguinal lymphadenopathy. Normal loops of small intestines visualized within the pelvis. Sigmoid diverticulitis. Bowel wall thickening with surrounding inflammation. Malt diverticula. No free air or free fluid. Normal visualized pelvic arteries and veins. Normal visualized osseous and soft tissue structures of the pelvis. IMPRESSION:Sigmoid diverticulitis. No free air. No free fluid. Prostate enlargement. Bladder is only partially distended. Bladder wall thickening cannot be excluded. Reported By: TIFFANIE MERA M.D. SED RATE ERYTHROCYTE ([id number]) Ordered By: Love Fast on 10-09-2008 ESR Velocity (Bld) 21 mm/h Abnormal 0-20 Compre [facility] Internal Medicine Work Phone: Comment on above: PATIENT NOT FASTINGP ERFORMED BY: LabCoSaint Peter's University HospitalWmxocy0215 [facility] [id number] Blood Glucose , Office ([id number] 2)Ordered By: Pat Brumfield on 12-04-2006 Glucose Glucometer molar conc (BldC) 97 1 Normal [facility] Work Phone: Comment on above: done [id number] BMPOrdered By: System Manage r on 11-01-2006 Anion gap 3 molar conc 9 mmol/L Normal 5-15 [facility] Work Phone: Calcium mass conc 7.9 mg/dL Abnormal 8.5-10.1 [facility] Work Phone: Chloride molar conc 103 mmol/L Normal 98-107 [facility] Work Phone: CO2 molar conc 27.4 mmol/L Normal 22.0-29.0 [facility] Work Phone: Creatinine mass conc 1.1 mg/dL Normal 0.8-1.3 [facility] Work Phone: Glucose mass conc 166 mg/dL Abnormal 70-110 [facility] Work Phone: Comment on above: Fasting Glucose resu lt greater than or equal to 126 mg/dL suggests DIABETES MELLITUS per A.D.A. criteria. Potassium molar conc 4.4 mmol/L Normal 3.5-5.1 [facility] Work Phone: Sodium molar conc 139 mmol/L Normal 136-145 [facility] Work Phone: Urea nitrogen mass conc 15 mg/dL Normal 7-18 [facility] Work Phone: Urea nitrogen/Creatinine mass ratio 13.6 {RATIO} Normal 10-20 [facility] Work Phone: CBCOrdered By: ChatLingual on 11-01-2006 Erythrocyte distribution width Auto Ratio (RBC) 13.3 % Normal 11.6-14.6 [facility] Work Phone: Hematocrit Auto Volume Fraction (Bld) 42.2 % Normal 40-54 [facility] Work Phone: Hemoglobin mass conc (Bld) 14.3 g/dL Normal 14.0-18.0 [facility] Work Phone: MCH Auto Entitic mass (RBC) 30.5 pg Normal 27.0-32.0 [facility] Work Phone: MCHC Auto mass conc (RBC) 34.0 g/dL Normal 32-36 [facility] Work Phone: MCV Auto Entitic volume (RBC) 89.8 fL Normal 80-94 [facility] Work Phone: Platelets Auto #/vol (Bld) 304 10*3/uL Normal 150-450 [facility] Work Phone: RBC Auto #/vol (Bld) 4.70 {M/mm3} Normal 4.6-6.2 [facility]: WBC Auto #/vol (Bld) 13.1 10*3/uL Abnormal 4.4-11.0 [facility] Work Phone: LIPIDOrdered By: Zadby on 11-01-2006 Cholesterol in HDL mass conc 52 mg/dL Normal [facility] Work Phone: Comment on above: Reference Range HDL <40 mg/dL Low HDL Cholesterol HDL >or= 60 mg/dL High HDL Cholesterol Cholesterol in LDL mass conc 115 mg/dL Normal 0-130 [facility] Work Phone: Cholesterol in VLDL mass conc 16 mg/dL Normal 5-40 [facility] Work Phone: Cholesterol mass conc 183 mg/dL Normal [facility] Work Phone: Comment on above: <200 mg/dL Desirable 200-240 mg/dL Borderline >240 mg/dL High Risk Triglyceride mass conc 79 mg/dL Normal [facility] Work Phone: Comment on above: Serum Triglycerides Reference Interval Normal <150 mg/dL Borderline high 150 - 199 mg/dL High 200 - 499 mg/dL Very High > or = 500 mg/dL BMPOrdered By: System Manage r on 10-29-2006 Anion gap 3 molar conc 9 mmol/L Normal 5-15 [facility] Work Phone: Calcium mass conc 8.6 mg/dL Normal 8.5-10.1 [facility] Work Phone: Chloride molar conc 104 mmol/L Normal 98-107 [facility] Work Phone: CO2 molar conc 25.1 mmol/L Normal 22.0-29.0 [facility] Work Phone: Creatinine mass conc 0.9 mg/dL Normal 0.8-1.3 [facility] Work Phone: Glucose mass conc 170 mg/dL Abnormal 70-110 [facility] Work Phone: Comment on above: Fasting Glucose resu lt greater than or equal to 126 mg/dL suggests DIABETES MELLITUS per A.D.A. criteria. Potassium molar conc 3.7 mmol/L Normal 3.5-5.1 [facility] Work Phone: Sodium molar conc 138 mmol/L Normal 136-145 [facility] Work Phone: Urea nitrogen mass conc 10 mg/dL Normal 7-18 [facility] Work Phone: Urea nitrogen/Creatinine mass ratio 11.1 {RATIO} Normal 10-20 [facility] Work Phone: CBCDOrdered By: System [facility] er on 10-29-2006 Basophils/100 WBC Auto (Bld) 0.0 % Normal 0-1 [facility] Work Phone: Eosinophils/100 WBC Auto (Bld) 0.0 % Normal 0-5 [facility] Work Phone: Erythrocyte distribution width Auto Ratio (RBC) 13.0 % Normal 11.6-14.6 [facility] Work Phone: Hematocrit Auto Volume Fraction (Bld) 43.9 % Normal 40-54 [facility] Work Phone: Hemoglobin mass conc (Bld) 15.1 g/dL Normal 14.0-18.0 [facility] Work Phone: Lymphocytes/100 WBC Auto (Bld) 7.4 % Abnormal 19-41 [facility] Work Phone: MCH Auto Entitic mass (RBC) 30.3 pg Normal 27.0-32.0 [facility] Work Phone: MCHC Auto mass conc (RBC) 34.4 g/dL Normal 32-36 [facility] Work Phone: MCV Auto Entitic volume (RBC) 87.9 fL Normal 80-94 [facility] Work Phone: Monocytes/100 WBC Auto (Bld) 0.7 % Normal 0-10 [facility] Work Phone: Neutrophils/100 WBC Auto (Bld) 91.9 % Abnormal 47-70 [facility] Work Phone: Platelet mean volume Auto Entitic volume (Bld) 7.7 fL Normal 6.5-12.0 [facility] Work Phone: Platelets Auto #/vol (Bld) 304 10*3/uL Normal 150-450 [facility] Work Phone: RBC Auto #/vol (Bld) 4.99 {M/mm3} Normal 4.6-6.2 [facility] Work [facility]: WBC Auto #/vol (Bld) 6.0 10*3/uL Normal 4.4-11.0 [facility] Work Phone: CBCD SeeNote Normal [facility] Work Phone: Comment on above: Result: NEUTROPHILIA NOTED LIPIDOrdered By: System Esme alissa on 10-29-2006 Cholesterol in HDL mass conc 45 mg/dL Normal [facility] Work Phone: Comment on above: Reference Range HDL <40 mg/dL Low HDL Cholesterol HDL >or= 60 mg/dL High HDL Cholesterol Cholesterol in LDL mass conc 148 mg/dL Abnormal 0-130 [facility] Work Phone: Cholesterol in VLDL mass conc 5 mg/dL Normal 5-40 [facility] Work Phone: Cholesterol mass conc 198 mg/dL Normal [facility] Work Phone: Comment on above: <200 mg/dL Desirable 200-240 mg/dL Borderline >240 mg/dL High Risk Triglyceride mass conc 25 mg/dL Normal [facility] Work Phone: Comment on above: Serum Triglycerides Reference Interval Normal <150 mg/dL Borderline high 150 - 199 mg/dL High 200 - 499 mg/dL Very High > or = 500 mg/dL PSA,TOT SCREENOrdered By: Wally stem Chief Information Officer on 10-29-2006 Prostate specific Ag mass conc 1.53 ng/mL Normal 0.00-4.00 [facility] Work Phone: Comment on above: This test was perfor med using the TPSA method for theDimension chemistry system.Values obtained with different assay methods cannot be usedinterchangably.When changing PSA assays in the course of monitoring apatient, additionaly sequential testing should be carriedout to confirm baseline values. CBCDOrdered By: System Manag er on 10-28-2006 Basophils/100 WBC Auto (Bld) 0.4 % Normal 0-1 [facility] Work Phone: Eosinophils/100 WBC Auto (Bld) 8.3 % Abnormal 0-5 [facility] Work Phone: Erythrocyte distribution width Auto Ratio (RBC) 12.9 % Normal 11.6-14.6 [facility] Work Phone: Hematocrit Auto Volume Fraction (Bld) 44.7 % Normal 40-54 [facility] Work Phone: Hemoglobin mass conc (Bld) 15.5 g/dL Normal 14.0-18.0 [facility] Work Phone: Lymphocytes/100 WBC Auto (Bld) 14.1 % Abnormal 19-41 [facility] Work Phone: MCH Auto Entitic mass (RBC) 30.6 pg Normal 27.0-32.0 [facility] Work Phone: MCHC Auto mass conc (RBC) 34.7 g/dL Normal 32-36 [facility] Work Phone: MCV Auto Entitic volume (RBC) 88.3 fL Normal 80-94 [facility] Work Phone: Monocytes/100 WBC Auto (Bld) 7.2 % Normal 0-10 [facility] Work Phone: Neutrophils/100 WBC Auto (Bld) 70.0 % Normal 47-70 [facility] Work Phone: Platelet mean volume Auto Entitic volume (Bld) 7.3 fL Normal 6.5-12.0 [facility] Work Phone: Platelets Auto #/vol (Bld) 311 10*3/uL Normal 150-450 [facility] Work Phone: RBC Auto #/vol (Bld) 5.06 {M/mm3} Normal 4.6-6.2 [facility] Work Phone: WBC Auto #/vol (Bld) 10.1 10*3/uL Normal 4.4-11.0 [facility] Work Phone: CHEST, PA AND LATERALOrdered By: Media Planner on 10-28-2006 CHEST, PA AND LATERAL See Note Normal [facility] Work Phone: Comment on above: Exam Number: [id number] CHEST, PA AND LATERAL HISTORYHypoxia. Wheezing. Cough. FINDINGSCardiac configuration is normal. There are moderate emphysematouschanges. No acute infiltrate, effusion, or pneumothorax identified. There is spur formation in the mid-dorsal spine. IMPRESSIONNo acute change noted in the lungs. Reported By: CHAPINCITO PAREDES M.D. COMP METABOLICOrdered By: Wally stem Chief Information Officer on 10-28-2006 Albumin mass conc 3.9 g/dL Normal 3.4-5.[address] [facility] Work Phone: Albumin/Globulin mass ratio 1.2 {RATIO} Normal 0.9-2.4 [facility] Work Phone: ALP enzyme act/vol 135 U/L Normal 50-136 [facility] Work Phone: ALT enzyme act/vol 34 [iU]/L Normal 30-65 [facility] Work Phone: Anion gap 3 molar conc 7 mmol/L Normal 5-15 [facility] Work Phone: AST enzyme act/vol 15 U/L Normal 15-37 [facility] Work Phone: Bilirubin mass conc 0.34 mg/dL Normal 0.00-1.00 [facility] Work Phone: Calcium mass conc 9.2 mg/dL Normal 8.5-10.[address] [facility] Work Phone: Chloride molar conc 106 mmol/L Normal 98-107 [facility] Work Phone: CO2 molar conc 28.9 mmol/L Normal 22.0-29.0 [facility]: Creatinine mass conc 0.9 mg/dL Normal 0.8-1.3 [facility] Work Phone: Globulin Calculated mass conc (S) 3.2 g/dL Normal 2.3-3.5 [facility] Work Phone: Glucose mass conc 103 mg/dL Normal 70-110 [facility] Work Phone: Potassium molar conc 3.9 mmol/L Normal 3.5-5.1 [facility] Work Phone: Protein mass conc 7.1 g/dL Normal 6.4-8.2 [facility] Work Phone: Sodium molar conc 142 mmol/L Normal 136-145 [facility] Work Phone: Urea nitrogen mass conc 11 mg/dL Normal 7-18 [facility] Work Phone: Urea nitrogen/Creatinine mass ratio 12.2 {RATIO} Normal 10-20 [facility] Work Phone: TSHOrdered By: System Manage r on 10-28-2006 Thyrotropin Qn 1.03 {uIU/mL} Normal 0.34-4.82 [facility] Work Phone: Vital Signs Date Time Vital Sign Value Performing Clinician Facility 01-17-2025 13:52-0400 Body height 172.[address] J Luis Mcgill MD Work Phone: [facility] 01-17-2025 13:52-0400 Body mass index (BMI) [Ratio] 22.5 kg/m2 Dr. J Luis Mcgill MD Work Phone: [facility] 01-17-2025 13:52-0400 Body weight 67.[address] J Luis Mcgill MD Work Phone: [facility] 01-17-2025 13:52-0400 Diastolic blood pressure 71 mm[Hg] Dr. J Luis Mcgill MD Work Phone: [facility] 01-17-2025 13:52-0400 Respiratory rate 16 /min Dr. J Luis Mcgill MD Work Phone: [facility] 01-17-2025 13:52-0400 Systolic blood pressure 155 mm[Hg] Dr. J Luis Mcgill MD Work Phone: [facility] 01-11-2025 13:40-0400 Body temperature 97.4 [degF] Dr. J Luis Mcgill MD Work Phone: [facility] 01-11-2025 13:40-0400 Diastolic blood pressure 82 mm[Hg] Dr. J Luis Mcgill MD Work Phone: 4(523)335-477560 [place] [address] 01-11-2025 13:40-0400 Heart rate 70 /min Dr. J Luis Mcgill MD Work Phone: 5(624)947-343092 [place] [address] 01-11-2025 13:40-0400 Respiratory rate 16 /min Dr. J Luis Mcgill MD Work Phone: 2(871)173-761392 [place] [address] 01-11-2025 13:40-0400 SaO2% (BldA) [Mass fraction] 97 % Dr. J Luis Mcgill MD Work Phone: 7(351)426-781792 [place] [address] 01-11-2025 13:40-0400 Systolic blood pressure 139 mm[Hg] Dr. J Luis Mcgill MD Work Phone: 5(739)453-955892 [place] [address] 01-11-2025 12:17-0400 Body height 172.[address] J Luis Mcgill MD Work Phone: 5(846)018-706492 [place] [address] 01-11-2025 12:17-0400 Body mass index (BMI) [Ratio] 21.7 kg/m2 Dr. J Luis Mcgill MD Work Phone: 2(827)342-726092 [place] [address] 01-11-2025 12:17-0400 Body weight [address] J Luis Mcgill MD Work Phone: 5(949)496-208192 [place] [address] 12-29-2024 14:39-0400 Body temperature 97.2 [degF] Dr. J Luis Mcgill MD Work Phone: 0(345)022-853692 [place] [address] 12-29-2024 14:39-0400 Diastolic blood pressure 62 mm[Hg] Dr. J Luis Mcgill MD Work Phone: 9(561)573-705592 [place] [address] 12-29-2024 14:39-0400 Heart rate 76 /min Dr. J Luis Mcgill MD Work Phone: 4(707)726-294660 [place] [address] 12-29-2024 14:39-0400 Respiratory rate 16 /min Dr. J Luis Mcgill MD Work Phone: 6(983)272-566492 [place] [address] 12-29-2024 14:39-0400 SaO2% (BldA) [Mass fraction] 98 % Dr. J Luis Mcgill MD Work Phone: 7(212)114-706692 [place] [address] 12-29-2024 14:39-0400 Systolic blood pressure 145 mm[Hg] Dr. J Luis Mcgill MD Work Phone: 0(389)362-034092 [place] [address] 12-29-2024 08:52-0400 Body mass index (BMI) [Ratio] 22.6 kg/m2 Dr. J Luis Mcgill MD Work Phone: 0(957)658-897692 [place] [address] 12-29-2024 08:52-0400 Body weight 67.[address] J Luis Mcgill MD Work Phone: 8(468)184-359892 [place] [address] 10-20-2024 09:42-0400 Body height 172.[address] J Luis Mcgill MD Work Phone: 7(089)919-013492 [place] [address] 10-20-2024 09:42-0400 Body mass index (BMI) [Ratio] 22.8 kg/m2 Dr. J Luis Mcgill MD Work Phone: 9(101)819-515192 [place] [address] 10-20-2024 09:42-0400 Body weight 68.[address] J Luis Mcgill MD Work Phone: 2(050)433-212692 [place] [address] 08-05-2024 12:59-0400 Body height 172.[address] J Luis Mcgill MD Work Phone: 2(811)209-416192 [place] [address] 08-05-2024 12:59-0400 Body mass index (BMI) [Ratio] 22.5 kg/m2 Dr. J Luis Mcgill MD Work Phone: 9(610)612-488092 [place] [address] 08-05-2024 12:59-0400 Body weight 67.[address] J Luis Mcgill MD Work Phone: 1(910)026-461592 [place] [address] 08-05-2024 12:59-0400 Diastolic blood pressure 85 mm[Hg] Dr. J Luis Mcgill MD Work Phone: 8(670)491-030192 [place] [address] 08-05-2024 12:59-0400 Heart rate 78 /min Dr. J Luis Mcgill MD Work Phone: [facility] 08-05-2024 12:59-0400 Respiratory rate 18 /min Dr. J Luis Mcgill MD Work Phone: 4(887)091-958160 [place] [address] 08-05-2024 12:59-0400 SaO2% (BldA) [Mass fraction] 97 % Dr. J Luis Mcgill MD Work Phone: 8(215)505-031660 [place] [address] 08-05-2024 12:59-0400 Systolic blood pressure 154 mm[Hg] Dr. J Luis Mcgill MD Work Phone: 0(253)090-415560 [place] [address] 07-27-2024 14:49-0400 Body temperature 97.8 [degF] Dr. J Luis Mcgill MD Work Phone: 2(822)406-893492 [place] [address] 07-27-2024 14:49-0400 Body weight 68.[address] J Luis Mcgill MD Work Phone: 8(757)663-342492 [place] [address] 07-27-2024 14:49-0400 Diastolic blood pressure 76 mm[Hg] Dr. J Luis Mcgill MD Work Phone: 0(983)895-437160 [place] [address] 07-27-2024 14:49-0400 Heart rate 75 /min Dr. J Luis Mcgill MD Work Phone: 6(174)370-961992 [place] [address] 07-27-2024 14:49-0400 Respiratory rate 16 /min Dr. J Luis Mcgill MD Work Phone: 9(295)619-059160 [place] [address] 07-27-2024 14:49-0400 SaO2% (BldA) [Mass fraction] 100 % Dr. J Luis Mcgill MD Work Phone: 5(651)731-234160 [place] [address] 07-27-2024 14:49-0400 Systolic blood pressure 151 mm[Hg] Dr. J Luis Mcgill MD Work Phone: 9(443)679-212960 [place] [address] 07-13-2024 17:12-0400 Body temperature 98 [degF] Dr. J Luis Mcgill MD Work Phone: 4(935)670-886960 [place] [address] 07-13-2024 17:12-0400 Diastolic blood pressure 49 mm[Hg] Dr. J Luis Mcgill MD Work Phone: 7(135)747-110092 [place] [address] 07-13-2024 17:12-0400 Heart rate 60 /min Dr. J Luis Mcgill MD Work Phone: 8(722)591-175492 [place] [address] 07-13-2024 17:12-0400 Respiratory rate 17 /min Dr. J Luis Mcgill MD Work Phone: 3(505)804-824892 [place] [address] 07-13-2024 17:12-0400 SaO2% (BldA) [Mass fraction] 100 % Dr. J Luis Mcgill MD Work Phone: 6(987)629-909292 [place] [address] 07-13-2024 17:12-0400 Systolic blood pressure 112 mm[Hg] Dr. J Luis Mcgill MD Work Phone: 0(282)146-288092 [place] [address] 07-13-2024 15:00-0400 Diastolic blood pressure 46 mm[Hg] Dr. J Luis Mcgill MD Work Phone: 9(990)377-436592 [place] [address] 07-13-2024 15:00-0400 Heart rate 58 /min Dr. J Luis Mcgill MD Work Phone: 7(157)851-837792 [place] [address] 07-13-2024 15:00-0400 Respiratory rate 16 /min Dr. J Luis Mcgill MD Work Phone: 6(894)416-139792 [place] [address] 07-13-2024 15:00-0400 SaO2% (BldA) [Mass fraction] 99 % Dr. J Luis Mcgill MD Work Phone: 9(742)328-950492 [place] [address] 07-13-2024 15:00-0400 Systolic blood pressure 107 mm[Hg] Dr. J Luis Mcgill MD Work Phone: 8(455)074-992492 [place] [address] 07-13-2024 10:37-0400 Body height 172.[address] J Luis Mcgill MD Work Phone: 9(750)903-499992 [place] [address] 07-13-2024 10:37-0400 Body weight 71.[address] J Luis Mcgill MD Work Phone: 2(453)445-072992 [place] [address] 07-13-2024 08:00-0400 Body temperature 98.3 [degF] Dr. J Luis Mcgill MD Work Phone: 6(591)482-125992 [place] [address] 07-13-2024 02:21-0400 Body mass index (BMI) [Ratio] 23.8 kg/m2 Dr. J Luis Mcgill MD Work Phone: 6(257)222-938160 [place] [address] 07-12-2024 16:00-0400 Inhaled oxygen concentration 25 % Dr. J Luis Mcgill MD Work Phone: 5(113)492-232660 [place] [address] 07-12-2024 11:46-0400 Inhaled oxygen flow rate 2 L/min Dr. J Luis Mcgill MD Work Phone: 3(509)567-182660 [place] [address] 06-27-2024 14:00-0400 Body temperature 98 [degF] Dr. J Luis Mcgill MD Work Phone: 4(134)797-914260 [place] [address] 06-27-2024 14:00-0400 Body weight 71.[address] J Luis Mcgill MD Work Phone: 8(185)345-496460 [place] [address] 06-27-2024 14:00-0400 Diastolic blood pressure 69 mm[Hg] Dr. J Luis Mcgill MD Work Phone: 1(982)496-708292 [place] [address] 06-27-2024 14:00-0400 Heart rate 75 /min Dr. J Luis Mcgill MD Work Phone: 7(163)599-448860 [place] [address] 06-27-2024 14:00-0400 Respiratory rate 16 /min Dr. J Luis Mcgill MD Work Phone: 7(619)979-339960 [place] [address] 06-27-2024 14:00-0400 SaO2% (BldA) [Mass fraction] 98 % Dr. J Luis Mcgill MD Work Phone: 9(157)343-674660 [place] [address] 06-27-2024 14:00-0400 Systolic blood pressure 147 mm[Hg] Dr. J Luis Mcgill MD Work Phone: 0(489)851-261760 [place] [address] 06-23-2024 14:12-0400 Body mass index (BMI) [Ratio] 23.8 kg/m2 Dr. J Luis Mcgill MD Work Phone: 5(234)980-782760 [place] [address] 06-23-2024 14:12-0400 Body weight 71.[address] J Luis Mcgill MD Work Phone: 1(175)853-361492 [place] [address] 06-13-2024 08:40-0400 Body height 172.[address] J Luis Mcgill MD Work Phone: [facility] 06-13-2024 08:40-0400 Body weight 71.[address] J Luis Mcgill MD Work Phone: [facility] 06-10-2024 09:33-0400 Body mass index (BMI) [Ratio] 23.8 kg/m2 Dr. J Luis Mcgill MD Work Phone: 3(299)217-959060 [place] [address] 06-03-2024 11:03-0400 Body temperature 98 [degF] Dr. J Luis Mcgill MD Work Phone: 2(537)710-655692 [place] [address] 06-03-2024 11:03-0400 Body weight 70.[address] J Luis Mcgill MD Work Phone: 8(346)932-151960 [place] [address] 06-03-2024 11:03-0400 Diastolic blood pressure 72 mm[Hg] Dr. J Luis Mcgill MD Work Phone: 1(078)310-688760 [place] [address] 06-03-2024 11:03-0400 Heart rate 70 /min Dr. J Luis Mcgill MD Work Phone: 1(530)844-984992 [place] [address] 06-03-2024 11:03-0400 Respiratory rate 18 /min Dr. J Luis Mcgill MD Work Phone: 1(389)774-615160 [place] [address] 06-03-2024 11:03-0400 SaO2% (BldA) [Mass fraction] 98 % Dr. J Luis Mcgill MD Work Phone: 1(491)185-171560 [place] [address] 06-03-2024 11:03-0400 Systolic blood pressure 155 mm[Hg] Dr. J Luis Mcgill MD Work Phone: 9(560)902-697660 [place] [address] 05-20-2024 07:53-0500 Body height 172.[address] J Luis Mcgill MD Work Phone: 3(403)789-630660 [place] [address] 05-20-2024 07:53-0500 Body mass index (BMI) [Ratio] 23.8 kg/m2 Dr. J Luis Mcgill MD Work Phone: 0(630)593-951860 [place] [address] 05-20-2024 07:53-0500 Body weight 71.[address] J Luis Mcgill MD Work Phone: [facility] 05-20-2024 07:53-0500 Diastolic blood pressure 75 mm[Hg] Dr. J Luis Mcgill MD Work Phone: [facility] 05-20-2024 07:53-0500 Heart rate 73 /min Dr. J Luis Mcgill MD Work Phone: 0(396)287-448760 [place] [address] 05-20-2024 07:53-0500 Respiratory rate 18 /min Dr. J Luis Mcgill MD Work Phone: 3(868)854-402560 [place] [address] 05-20-2024 07:53-0500 SaO2% (BldA) [Mass fraction] 97 % Dr. J Luis Mcgill MD Work Phone: 5(292)116-098260 [place] [address] 05-20-2024 07:53-0500 Systolic blood pressure 148 mm[Hg] Dr. J Luis Mcgill MD Work Phone: 0(487)504-083060 [place] [address] 04-22-2024 10:43-0500 Body mass index (BMI) [Ratio] 23.7 kg/m2 Dr. J Luis Mcgill MD Work Phone: 4(879)973-900660 [place] [address] 04-22-2024 10:43-0500 Body weight 70.[address] J Luis Mcgill MD Work Phone: 6(182)681-923860 [place] [address] 04-22-2024 10:43-0500 Diastolic blood pressure 76 mm[Hg] Dr. J Luis Mcgill MD Work Phone: 5(679)675-098060 [place] [address] 04-22-2024 10:43-0500 Heart rate 68 /min Dr. J Luis Mcgill MD Work Phone: [facility] 04-22-2024 10:43-0500 Respiratory rate 16 /min Dr. J Luis Mcgill MD Work Phone: 3(610)890-297360 [place] [address] 04-22-2024 10:43-0500 Systolic blood pressure 162 mm[Hg] Dr. J Luis Mcgill MD Work Phone: 5(054)573-483260 [place] [address] 03-03-2024 11:15-0500 Body mass index (BMI) [Ratio] 23.6 kg/m2 Dr. J Luis Mcgill MD Work Phone: [facility] 03-03-2024 11:15-0500 Body weight 70.[address] J Luis Mcgill MD Work Phone: [facility] 07-15-2023 21:05-0400 Body temperature 98.4 [degF] Dr. J Luis Mcgill Work Phone: 1(518)199-606560 [place] [address] 07-15-2023 21:05-0400 Diastolic blood pressure 82 mm[Hg] Dr. J Luis Mcgill Work Phone: 3(270)788-331660 [place] [address] 07-15-2023 21:05-0400 Heart rate 74 /min Dr. J Luis Mcgill Work Phone: 0(485)085-169160 [place] [address] 07-15-2023 21:05-0400 Respiratory rate 16 /min Dr. J Luis Mcgill Work Phone: [phone] [address] 07-15-2023 21:05-0400 SaO2% (BldA) [Mass fraction] 97 % Dr. J Luis Mcgill Work Phone: 4(987)[phone] [place] [address] 07-15-2023 21:05-0400 Systolic blood pressure 121 mm[Hg] Dr. J Luis Mcgill Work Phone: 1(090)[phone] [place] [address] 07-15-2023 16:55-0400 Body height 172.[address] J Luis Mcgill Work Phone: 0([phone] [place] [address] 07-15-2023 16:55-0400 Body mass index (BMI) [Ratio] 22.8 kg/m2 Dr. J Luis Mcgill Work Phone: 9(709)[phone] [place] [address] 07-15-2023 16:55-0400 Body weight 68.[address] J Luis Mcgill Work Phone: 3(284)[phone] [place] [address] 07-07-2023 10:40-0400 Body temperature 97.7 [degF] Dr. J Luis Mcgill Work Phone: 3(383)[phone] [place] [address] 07-07-2023 10:40-0400 Diastolic blood pressure 112 mm[Hg] Dr. J Luis Mcgill Work Phone: 7(525)714-416860 [place] [address] 07-07-2023 10:40-0400 Heart rate 78 /min Dr. J Luis Mcgill Work Phone: [facility] 07-07-2023 10:40-0400 Respiratory rate 14 /min Dr. J Luis Mcgill Work Phone: [facility] 07-07-2023 10:40-0400 SaO2% (BldA) [Mass fraction] 100 % Dr. J Luis Mcgill Work Phone: [facility] 07-07-2023 10:40-0400 Systolic blood pressure 145 mm[Hg] Dr. J Luis Mcgill Work Phone: [facility] 07-06-2023 20:46-0400 Body height 172.[address] J Luis Mcgill Work Phone: [facility] 07-06-2023 20:46-0400 Body mass index (BMI) [Ratio] 22.3 kg/m2 Dr. J Luis Mcgill Work Phone: [facility] 07-06-2023 20:46-0400 Body weight 66.[address] J Luis Mcgill Work Phone: [facility] 07-06-2023 20:26-0400 Body temperature 98.1 [degF] [facility] 07-06-2023 20:26-0400 Diastolic blood pressure 109 mm[Hg] [facility] 07-06-2023 20:26-0400 Heart rate 80 /min [facility] 07-06-2023 20:26-0400 Respiratory rate 20 /min [facility] 07-06-2023 20:26-0400 SaO2% (BldA) [Mass fraction] 97 % [facility] 07-06-2023 20:26-0400 Systolic blood pressure 160 mm[Hg] [facility] 07-06-2023 17:04-0400 Body height 172.72 cm [facility] 07-06-2023 17:04-0400 Body mass index (BMI) [Ratio] 22.8 kg/m2 [facility] 07-06-2023 17:04-0400 Body weight 68.26 kg [facility] 06-19-2023 17:090400 Body temperature 97.4 [degF] [facility] 06-19-2023 17:09-0400 Diastolic blood pressure 72 mm[Hg] [facility] 06-19-2023 17:09-0400 Heart rate 69 /min [facility] 06-19-2023 17:09-0400 Respiratory rate 15 /min [facility] 06-19-2023 17:09-0400 SaO2% (BldA) [Mass fraction] 96 % [facility] 06-19-2023 17:09-0400 Systolic blood pressure 134 mm[Hg] [facility] 06-19-2023 11:56-0400 Body height 172.72 cm [facility] 06-19-2023 11:56-0400 Body mass index (BMI) [Ratio] 23 kg/m2 [facility] 06-19-2023 11:56-0400 Body weight 68.74 kg [facility] 11-12-2022 15:51-0400 Body height 167 cm [facility] Work Phone: 11-12-2022 15:51-0400 Body mass index (BMI) [Ratio] 25.54 kg/m2 [facility]; [facility] Work Phone: 11-12-2022 15:51-0400 Body surface area Derived from formula 1.8 m2 [facility]; [facility] Work Phone: 11-12-2022 15:51-0400 Body temperature 96.3 [degF] [facility]; [facility] Work Phone: 11-12-2022 15:51-0400 Body weight 71.22 kg [facility]; [facility] Work Phone: 11-12-2022 15:51-0400 Diastolic blood pressure 72 mm[Hg] [facility]; [facility] Work Phone: Comment on above: Patient Position: Sitting; Cuff Location : Left Arm; Cuff Size: Standard 11-12-2022 15:51-0400 Heart rate 43 /min [facility]; [facility] Work Phone: Comment on above: Pattern: Regular 11-12-2022 15:51-0400 Respiratory rate 18 /min [facility]; [facility] Work Phone: Comment on above: Pattern: Unlabored 11-12-2022 15:51-0400 SaO2% (BldA) [Mass fraction] 98 % [facility]; [facility] Work Phone: Comment on above: Room air 11-12-2022 15:51-0400 Systolic blood pressure 124 mm[Hg] [facility]; [facility] Work Phone: Comment on above: Patient Position: Sitting; Cuff Location : Left Arm; Cuff Size: Standard 10-13-2022 13:52-0400 Body height 167 cm [facility]; [facility] Work Phone: 10-13-2022 13:52-0400 Body mass index (BMI) [Ratio] 25.54 kg/m2 [facility]; [facility] Work Phone: 10-13-2022 13:52-0400 Body surface area Derived from formula 1.8 m2 [facility]; [facility] Work Phone: 10-13-2022 13:52-0400 Body temperature 97 [degF] [facility]; [facility] Work Phone: 10-13-2022 13:52-0400 Body weight 71.22 kg [facility]; [facility] Work Phone: 10-13-2022 13:52-0400 Diastolic blood pressure 70 mm[Hg] [facility]; [facility] Work Phone: Comment on above: Patient Position: Sitting; Cuff Location : Left Arm; Cuff Size: Standard 10-13-2022 13:52-0400 Heart rate 63 /min [facility]; [facility] Work Phone: Comment on above: Pattern: Regular 10-13-2022 13:52-0400 Respiratory rate 16 /min [facility]; [facility] Work Phone: Comment on above: Pattern: Unlabored 10-13-2022 13:52-0400 SaO2% (BldA) [Mass fraction] 99 % [facility]; [facility] Work Phone: Comment on above: Room air 10-13-2022 13:52-0400 Systolic blood pressure 122 mm[Hg] [facility]; [facility] Work Phone: Comment on above: Patient Position: Sitting; Cuff Location : Left Arm; Cuff Size: Standard 06-12-2022 10:39-0400 Body height 167 cm [facility]; [facility] Work Phone: 06-12-2022 10:39-0400 Body mass index (BMI) [Ratio] 25.54 kg/m2 [facility]; [facility] Work Phone: 06-12-2022 10:39-0400 Body surface area Derived from formula 1.8 m2 [facility]; [facility] Work Phone: 06-12-2022 10:39-0400 Body temperature 97.5 [degF] [facility]; [facility] Work Phone: Comment on above: Method: Thermal Scan 06-12-2022 10:39-0400 Body weight 71.22 kg Rosita [facility]; [facility] Work Phone: 06-12-2022 10:39-0400 Diastolic blood pressure 74 mm[Hg] Rosita Warner [facility]; [facility] Work Phone: Comment on above: Patient Position: Sitting; Cuff Location : Left Arm; Cuff Size: Standard 06-12-2022 10:39-0400 Heart rate 68 /min [facility]; [facility] Work Phone: Comment on above: Pattern: Regular 06-12-2022 10:39-0400 Respiratory rate 16 /min [facility] Work Phone: Comment on above: Pattern: Unlabored 06-12-2022 10:39-0400 SaO2% (BldA) [Mass fraction] 98 % [facility]; [facility] Work Phone: Comment on above: Room air 06-12-2022 10:39-0400 Systolic blood pressure 122 mm[Hg] [facility]; [facility] Work Phone: Comment on above: Patient Position: Sitting; Cuff Location : Left Arm; Cuff Size: Standard 05-29-2022 11:40-0500 Body height 167 cm [facility]; [facility] Work Phone: 05-29-2022 11:40-0500 Body mass index (BMI) [Ratio] 25.54 kg/m2 [facility]; [facility] Work Phone: 05-29-2022 11:40-0500 Body surface area Derived from formula 1.8 m2 [facility]; [facility] Work Phone: 05-29-2022 11:40-0500 Body temperature 96.9 [degF] [facility]; [facility] Work Phone: 05-29-2022 11:40-0500 Body weight 71.22 kg [facility]; [facility] Work Phone: 05-29-2022 11:40-0500 Diastolic blood pressure 82 mm[Hg] [facility]; [facility] Work Phone: Comment on above: Patient Position: Sitting; Cuff Location : Left Arm; Cuff Size: Standard 05-29-2022 11:40-0500 Heart rate 53 /min [facility]; [facility] Work Phone: Comment on above: Pattern: Regular 05-29-2022 11:40-0500 Respiratory rate 16 /min [facility]; [facility] Work Phone: Comment on above: Pattern: Unlabored 05-29-2022 11:40-0500 SaO2% (BldA) [Mass fraction] 99 % [facility]; [facility] Work Phone: Comment on above: Room air 05-29-2022 11:40-0500 Systolic blood pressure 122 mm[Hg] [facility]; [facility] Work Phone: Comment on above: Patient Position: Sitting; Cuff Location : Left Arm; Cuff Size: Standard 05-05-2022 10:51-0500 Body height 167 cm Lou Aguilaron DO Work Phone: [facility]; [facility] Work Phone: 05-05-2022 10:51-0500 Body mass index (BMI) [Ratio] 25.54 kg/m2 Lou Christal DO Work Phone: [facility]; [facility] Work Phone: 05-05-2022 10:51-0500 Body surface area Derived from formula 1.8 m2 Lou Christal DO Work Phone: [facility]; [facility] Work Phone: 05-05-2022 10:51-0500 Body temperature 97 [degF] Lou Christal DO Work Phone: [facility]; [facility] Work Phone: Comment on above: Method: Oral 05-05-2022 10:51-0500 Body weight 71.22 kg Lou Christal DO Work Phone: [facility]; [facility] Work Phone: 05-05-2022 10:51-0500 Diastolic blood pressure 72 mm[Hg] Lou Aguilaron DO Work Phone: [facility]; [facility] Work Phone: Comment on above: Patient Position: Sitting 05-05-2022 10:51-0500 Heart rate 80 /min Lou Aguilaron DO Work Phone: [facility]; [facility] Work Phone: Comment on above: Pattern: Regular 05-05-2022 10:51-0500 Systolic blood pressure 116 mm[Hg] Lou Aguilaron DO Work Phone: [facility]; [facility] Work Phone: Comment on above: Patient Position: Sitting 03-26-2022 11:29-0500 Body height 167 cm Joy Martínez [facility]; [facility] Work Phone: 03-26-2022 11:29-0500 Body mass index (BMI) [Ratio] 25.54 kg/m2 Joy Gravius [facility]; [facility] Work Phone: 03-26-2022 11:29-0500 Body surface area Derived from formula 1.8 m2 Joy Padillaius [facility]; [facility] Work Phone: 03-26-2022 11:29-0500 Body temperature 96.9 [degF] Joy Randyius [facility]; [facility] Work Phone: Comment on above: Method: Temporal 03-26-2022 11:29-0500 Body weight 71.22 kg Joy Padillaius [facility]; [facility] Work Phone: 03-26-2022 11:29-0500 Diastolic blood pressure 70 mm[Hg] Joy Padillaius [facility]; [facility] Work Phone: Comment on above: Patient Position: Sitting; Cuff Location : Left Arm; Cuff Size: Standard 03-26-2022 11:29-0500 Heart rate 81 /min Joy Martínez [facility]; [facility] Work Phone: Comment on above: Pattern: Regular 03-26-2022 11:29-0500 Respiratory rate 20 /min Joy Martínez [facility]; [facility] Work Phone: Comment on above: Pattern: Unlabored 03-26-2022 11:29-0500 SaO2% (BldA) [Mass fraction] 95 % Joy Martínez [facility]; [facility] Work Phone: Comment on above: Room air 03-26-2022 11:29-0500 Systolic blood pressure 112 mm[Hg] Joy Martínez [facility]; [facility] Work Phone: Comment on above: Patient Position: Sitting; Cuff Location : Left Arm; Cuff Size: Standard 03-25-2022 10:13-0500 Body height 167 cm Alyssa Slarb [facility]; [facility] Work Phone: Comment on above: pt did not report 03-25-2022 10:13-0500 Body mass index (BMI) [Ratio] 25.54 kg/m2 Alyssa Slarb [facility]; [facility] Work Phone: Comment on above: pt did not report 03-25-2022 10:13-0500 Body surface area Derived from formula 1.8 m2 Alyssa Slarb 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 [facility]; [facility] Work Phone: Comment on above: pt did not report 03-25-2022 10:13-0500 Body weight 71.22 kg Alyssa Slarb 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 [facility]; [facility] Work Phone: Comment on above: pt did not report 03-22-2022 13:59-0500 Body temperature 99.39 [degF] Cheryl Bansal PA-C Work Phone: [facility] 03-22-2022 13:59-0500 Body weight 70.31 kg Cheryl Athy PA-C Work Phone: [facility] 03-22-2022 13:59-0500 Diastolic blood pressure 74 mm[Hg] Cheryl Athy PA-C Work Phone: [facility] 03-22-2022 13:59-0500 Heart rate 78 /min Cheryl Athy PA-C Work Phone: [facility] 03-22-2022 13:59-0500 Respiratory rate 16 /min Cheryl Athy PA-C Work Phone: [facility] 03-22-2022 13:59-0500 SaO2% (BldA) [Mass fraction] 99 % Cheryl Athy PA-C Work Phone: [facility] 03-22-2022 13:59-0500 Systolic blood pressure 122 mm[Hg] Cheryl Athy PA-C Work Phone: [facility] 02-03-2022 16:16-0500 Body height 167 cm Joy Martínez [facility]; [facility] Work Phone: 02-03-2022 16:16-0500 Body mass index (BMI) [Ratio] 25.54 kg/m2 Joy Padillaius [facility]; [facility] Work Phone: 02-03-2022 16:16-0500 Body surface area Derived from formula 1.8 m2 Joy Martínez [facility]; [facility] Work Phone: 02-03-2022 16:16-0500 Body temperature 97.3 [degF] Joy Martínez [facility]; [facility] Work Phone: Comment on above: Method: Infrared 02-03-2022 16:16-0500 Body weight 71.22 kg Joy Martínez [facility]; [facility] Work Phone: 02-03-2022 16:16-0500 Diastolic blood pressure 78 mm[Hg] Joy Martínez [facility]; [facility] Work Phone: Comment on above: Patient Position: Sitting; Cuff Location : Left Arm; Cuff Size: Standard 02-03-2022 16:16-0500 Heart rate 81 /min Joy Martínez CMA [facility]; [facility] Work Phone: Comment on above: Pattern: Regular 02-03-2022 16:16-0500 Respiratory rate 18 /min Joy Martínez [employer]IL [employer]IST [facility]; [facility] Work Phone: Comment on above: Pattern: Unlabored 02-03-2022 16:16-0500 SaO2% (BldA) [Mass fraction] 96 % Joy Martínez [facility]; [facility] Work Phone: Comment on above: Room air 02-03-2022 16:16-0500 Systolic blood pressure 132 mm[Hg] Joy Martínez [facility]; [facility] Work Phone: Comment on above: Patient Position: Sitting; Cuff Location : Left Arm; Cuff Size: Standard 01-06-2022 09:290400 Body height 167 cm Lou Siegel DO Work Phone: [facility]; [facility] Work Phone: Comment on above: pt requested a visit through telemedicin e. withthe covid19 pandemic we are not bringing patients in the office. only those that need evaluations in person. Pt. is aware that the telemedicine available in this crisis time is not HIPPA secure and encrypted and give verbal agreement to proceed. 01-06-2022 09:290400 Body mass index (BMI) [Ratio] 25.54 kg/m2 Lou Siegel DO Work Phone: [facility]; [facility] Work Phone: Comment on above: pt requested a visit through telemedicin e. withthe covid19 pandemic we are not bringing patients in the office. only those that need evaluations in person. Pt. is aware that the telemedicine available in this crisis time is not HIPPA secure and encrypted and give verbal agreement to proceed. 01-06-2022 09:29-0400 Body surface area Derived from formula 1.8 m2 Lou Siegel DO Work Phone: [facility]; [facility] Work Phone: Comment on above: pt requested a visit through telemedicin e. withthe covid19 pandemic we are not bringing patients in the office. only those that need evaluations in person. Pt. is aware that the telemedicine available in this crisis time is not HIPPA secure and encrypted and give verbal agreement to proceed. 01-06-2022 09:29-0400 Body weight 71.22 kg Lou Siegel DO Work Phone: [facility]; [facility] Work Phone: Comment on above: pt requested a visit through telemedicin e. withthe covid19 pandemic we are not bringing patients in the office. only those that need evaluations in person. Pt. is aware that the telemedicine available in this crisis time is not HIPPA secure and encrypted and give verbal agreement to proceed. 01-06-2022 09:29-0400 Diastolic blood pressure 70 mm[Hg] Lou Siegel DO Work Phone: [facility]; [facility] Work Phone: Comment on above: Patient Position: Sitting pt requested a visit through telemedicine. withthe covid19 pandemic we are not bringing patients in the office. only those that need evaluations in person. Pt. is aware that the telemedicine available in this crisis time is not HIPPA secure and encrypted and give verbal agreement to proceed. 01-06-2022 09:29-0400 Systolic blood pressure 115 mm[Hg] Lou Siegel DO Work Phone: [facility]; [facility] Work Phone: Comment on above: Patient Position: Sitting pt requested a visit through telemedicine. withthe covid19 pandemic we are not bringing patients in the office. only those that need evaluations in person. Pt. is aware that the telemedicine available in this crisis time is not HIPPA secure and encrypted and give verbal agreement to proceed. 10-21-2021 08:55-0400 Body height 167 cm Joy [facility]; [facility] Work Phone: 10-21-2021 08:55-0400 Body mass index (BMI) [Ratio] 25.37 kg/m2 Joy Martínez CMA [facility]; [facility] Work Phone: 10-21-2021 08:55-0400 Body mass index (BMI) [Ratio] 25.54 kg/m2 Joy Martínez CMA [facility]; [facility] Work Phone: 10-21-2021 08:55-0400 Body surface area Derived from formula 1.79 m2 Joy Tanya LARA [facility]; [facility] Work Phone: 10-21-2021 08:55-0400 Body surface area Derived from formula 1.8 m2 Joy Martínez CMA [facility]; [facility] Work Phone: 10-21-2021 08:55-0400 Body temperature 97.3 [degF] Joy Martínez [facility]; [facility] Work Phone: Comment on above: Method: Infrared 10-21-2021 08:55-0400 Body weight 70.77 kg Joy Martínez NAIL SPECIALIST [facility]; [facility] Work Phone: 10-21-2021 08:55-0400 Body weight 71.22 kg Joy Martínez CMA [facility]; [facility] Work Phone: 10-21-2021 08:55-0400 Diastolic blood pressure 70 mm[Hg] Joy Martínez [facility]; [facility] Work Phone: Comment on above: Patient Position: Sitting; Cuff Location : Left Arm; Cuff Size: Standard 10-21-2021 08:55-0400 Heart rate 63 /min Joy Martínez [facility]; [facility] Work Phone: Comment on above: Pattern: Regular 10-21-2021 08:55-0400 Respiratory rate 18 /min Joy Martínez [employer]IL [employer]IST [facility]; [facility] Work Phone: Comment on above: Pattern: Unlabored 10-21-2021 08:55-0400 SaO2% (BldA) [Mass fraction] 97 % Joy Martínez [facility]; [facility] Work Phone: Comment on above: Room air 10-21-2021 08:55-0400 Systolic blood pressure 112 mm[Hg] Joy Martínez [facility]; [facility] Work Phone: Comment on above: Patient Position: Sitting; Cuff Location : Left Arm; Cuff Size: Standard 09-25-2021 16:01-0400 Body height 167 cm Heatherkourtney Chamberlain CAROLYN [facility]; [facility] Work Phone: 09-25-2021 16:01-0400 Body mass index (BMI) [Ratio] 25.37 kg/m2 Heatherkourtney Chamberlain CAROLYN [facility]; [facility] Work Phone: 09-25-2021 16:01-0400 Body surface area Derived from formula 1.79 m2 Heather Chamberlain LPN [facility]; [facility] Work Phone: 09-25-2021 16:01-0400 Body weight 70.77 kg Heatherkourtney Chamberlain CAROLYN [facility]; [facility] Work Phone: 09-25-2021 16:01-0400 Diastolic blood pressure 68 mm[Hg] Heatherkourtney Chamberlain CAROLYN [facility]; [facility] Work Phone: Comment on above: Patient Position: Sitting; Cuff Location : Left Arm; Cuff Size: Standard 09-25-2021 16:01-0400 Heart rate 74 /min Heatherkourtney Chamberlain CAROLYN [facility]; [facility] Internal Medicine Work Phone: Comment on above: Pattern: Regular 09-25-2021 16:01-0400 Respiratory rate 16 /min Heather Bulmaro CAROLYN [facility]; [facility] Work Phone: Comment on above: Pattern: Unlabored 09-25-2021 16:01-0400 SaO2% (BldA) [Mass fraction] 98 % Heather Bulmaro LPN [facility]; [facility] Work Phone: Comment on above: Room air 09-25-2021 16:01-0400 Systolic blood pressure 120 mm[Hg] Heather Chamberlain 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 [facility]; [facility] Work Phone: Comment on above: Patient Position: Sitting; Cuff Location : Left Arm; Cuff Size: Standard 09-18-2021 15:33-0400 Body height 167 cm Joy Gravius [facility]; [facility] Work Phone: 09-18-2021 15:33-0400 Body mass index (BMI) [Ratio] 25.37 kg/m2 Joy Gravius [facility]; [facility] Work Phone: 09-18-2021 15:33-0400 Body surface area Derived from formula 1.79 m2 Joy Gravius [facility]; [facility] Work Phone: 09-18-2021 15:33-0400 Body weight 70.77 kg Joy Gravius [facility]; [facility] Work Phone: 09-13-2021 13:39-0400 Body height 167 cm Alyssa Slarb 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 [facility]; [facility] Work Phone: 09-13-2021 13:39-0400 Body mass index (BMI) [Ratio] 27 kg/m2 Alyssa Slarb 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 [facility]; [facility] Work Phone: 09-13-2021 13:39-0400 Body surface area Derived from formula 1.84 m2 Alyssa Slarb 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 [facility]; [facility] Work Phone: 09-13-2021 13:39-0400 Body temperature 97.1 [degF] Alyssa Slarb 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 [facility]; [facility] Work Phone: 09-13-2021 13:39-0400 Body weight 75.3 kg Alyssa Slarb 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 [facility]; [facility] Work Phone: 09-13-2021 13:39-0400 Diastolic blood pressure 82 mm[Hg] Alyssa Slarb 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 [facility]; [facility] Work Phone: Comment on above: Patient Position: Sitting; Cuff Location : Left Arm; Cuff Size: Standard 09-13-2021 13:39-0400 Heart rate 73 /min Alyssa Slarb 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 [facility]; [facility] Work Phone: Comment on above: Pattern: Regular 09-13-2021 13:39-0400 Respiratory rate 16 /min Alyssa Slarb 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 [facility]; [facility] Work Phone: Comment on above: Pattern: Unlabored 09-13-2021 13:39-0400 SaO2% (BldA) [Mass fraction] 99 % Alyssa Slarb 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 [facility]; [facility] Work Phone: Comment on above: Room air 09-13-2021 13:39-0400 Systolic blood pressure 122 mm[Hg] Alyssa Slarb 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 [facility]; [facility] Work Phone: Comment on above: Patient Position: Sitting; Cuff Location : Left Arm; Cuff Size: Standard 09-12-2021 08:39-0400 Body height 172.[address] Lou Siegel Work Phone: [facility] Work Phone: 09-12-2021 08:39-0400 Body mass index (BMI) [Ratio] 24.3 kg/m2 Dr. Lou Siegel Work Phone: [facility] Work Phone: 09-12-2021 08:39-0400 Body temperature 98 [degF] Dr. Lou Siegel Work Phone: [facility] Work Phone: 09-12-2021 08:39-0400 Body weight 72.[address] Lou Siegel Work Phone: [facility] Work Phone: 09-12-2021 08:39-0400 Diastolic blood pressure 88 mm[Hg] Dr. Lou Siegel Work Phone: [facility] Work Phone: 09-12-2021 08:39-0400 Heart rate 78 /min Dr. Lou Siegel Work Phone: [facility] Work Phone: 09-12-2021 08:39-0400 Respiratory rate 16 /min Dr. Lou Siegel Work Phone: [facility] Work Phone: 09-12-2021 08:39-0400 SaO2% (BldA) [Mass fraction] 96 % Dr. Lou Siegel Work Phone: [facility] Work Phone: 09-12-2021 08:39-0400 Systolic blood pressure 177 mm[Hg] Dr. Lou Siegel Work Phone: [facility] Work Phone: 01-30-2021 12:05-0500 Body height 167 cm Heather Chamberlain LPN [facility]; [facility] Work Phone: 01-30-2021 12:05-0500 Body mass index (BMI) [Ratio] 27 kg/m2 Heather Chamberlain LPN [facility]; [facility] Work Phone: 01-30-2021 12:05-0500 Body surface area Derived from formula 1.84 m2 Heather Chamberlain LPN [facility]; [facility] Work Phone: 01-30-2021 12:05-0500 Body temperature 97.3 [degF] Heather Chamberlain LPN [facility]; [facility] Work Phone: Comment on above: Method: Temporal 01-30-2021 12:05-0500 Body weight 75.3 kg Heather Chamberlain LPN [facility]; [facility] Work Phone: 01-30-2021 12:05-0500 Diastolic blood pressure 84 mm[Hg] Heather Velazco [facility]; [facility] Work Phone: Comment on above: Patient Position: Sitting; Cuff Location : Left Arm; Cuff Size: Standard 01-30-2021 12:05-0500 Heart rate 74 /min Heather Chamberlain 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 [facility]; [facility] Work Phone: Comment on above: Pattern: Regular 01-30-2021 12:05-0500 Respiratory rate 16 /min Heather Chamberlain 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 [facility]; [facility] Work Phone: Comment on above: Pattern: Unlabored 01-30-2021 12:05-0500 SaO2% (BldA) [Mass fraction] 96 % Heather Chamberlain 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 [facility]; [facility] Work Phone: Comment on above: Room air 01-30-2021 12:05-0500 Systolic blood pressure 130 mm[Hg] Heather Chamberlain 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 [facility]; [facility] Work Phone: Comment on above: Patient Position: Sitting; Cuff Location : Left Arm; Cuff Size: Standard 10-23-2020 10:46-0400 Body height 167 cm Alyssa Slarb 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 [facility]; [facility] Work Phone: 10-23-2020 10:46-0400 Body mass index (BMI) [Ratio] 27 kg/m2 Alyssa Slarb 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 [facility]; [facility] Work Phone: 10-23-2020 10:46-0400 Body surface area Derived from formula 1.84 m2 Alyssa Slarb 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 [facility]; [facility] Work Phone: 10-23-2020 10:46-0400 Body temperature 98.1 [degF] Alyssa Slarb 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 [facility]; [facility] Work Phone: 10-23-2020 10:46-0400 Body weight 75.3 kg Alyssa Slarb 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 [facility]; [facility] Work Phone: 10-23-2020 10:46-0400 Diastolic blood pressure 84 mm[Hg] Alyssa Slarb 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 [facility]; [facility] Work Phone: Comment on above: Patient Position: Sitting; Cuff Location : Left Arm; Cuff Size: Standard 10-23-2020 10:46-0400 Heart rate 70 /min Alyssa Slarb 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 [facility]; [facility] Work Phone: Comment on above: Pattern: Regular 10-23-2020 10:46-0400 Respiratory rate 16 /min Alyssa Slarb 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 [facility]; [facility] Work Phone: Comment on above: Pattern: Unlabored 10-23-2020 10:46-0400 SaO2% (BldA) [Mass fraction] 96 % Alyssa Slarb [facility]; [facility] Work Phone: Comment on above: Room air 10-23-2020 10:46-0400 Systolic blood pressure 128 mm[Hg] Alyssa Lorenzorb [facility]; [facility] Work Phone: Comment on above: Patient Position: Sitting; Cuff Location : Left Arm; Cuff Size: Standard 10-19-2020 09:52-0400 Body height 167 [facility]; [facility] Work Phone: 10-19-2020 09:52-0400 Body mass index (BMI) [Ratio] 27 kg/m2 [facility]; [facility] Work Phone: 10-19-2020 09:52-0400 Body surface area Derived from formula 1.84 m2 [facility]; [facility] Work Phone: 10-19-2020 09:52-0400 Body temperature 97.3 [degF] [facility]; [facility] Work Phone: Comment on above: Method: Thermal Scan 10-19-2020 09:52-0400 Body weight 75.3 kg [facility]; [facility] Work Phone: 10-19-2020 09:52-0400 Diastolic blood pressure 70 mm[Hg] [facility]; [facility] Work Phone: Comment on above: Patient Position: Sitting; Cuff Location : Left Arm; Cuff Size: Standard 10-19-2020 09:52-0400 Heart rate 66 /min Rosita Warner [facility]; [facility] Work Phone: Comment on above: Pattern: Regular 10-19-2020 09:52-0400 Respiratory rate 16 /min Rosita Warner [facility]; [facility] Work Phone: Comment on above: Pattern: Unlabored 10-19-2020 09:52-0400 SaO2% (BldA) [Mass fraction] 96 % Rosita Warner [facility]; [facility] Work Phone: Comment on above: Room air 10-19-2020 09:52-0400 Systolic blood pressure 118 mm[Hg] Rosita Warner [facility]; [facility] Work Phone: Comment on above: Patient Position: Sitting; Cuff Location : Left Arm; Cuff Size: Standard 01-16-2020 13:00-0400 BMI (Body Mass Index) 27 kg/m2 Joy Martínez [facility] Internal Medicine Work Phone: Comment on above: no vs taken as this is phone encounter d ue to covid 01-16-2020 13:00-0400 Body weight 75.3 kg Joy Martínez [facility] Internal Medicine Work Phone: Comment on above: no vs taken as this is phone encounter d ue to covid 01-16-2020 13:00-0400 BSA (Body Surface Area) 1.84 m2 Joy Martínez [facility] Internal Medicine Work Phone: Comment on above: no vs taken as this is phone encounter d ue to covid 01-16-2020 13:00-0400 Height 167 cm Joy Martínez [facility] Internal Medicine Work Phone: Comment on above: no vs taken as this is phone encounter d ue to covid 10-24-2019 08:35-0400 BMI (Body Mass Index) 27 kg/m2 Wilfrido Her [facility] Internal Medicine Work Phone: 10-24-2019 08:35-0400 BMI (Body Mass Index) 26.18 kg/m2 Louhema Siegel [facility] Work Phone: 10-24-2019 08:35-0400 Body Temperature 97.8 [degF] Wilfrido Bynum LPN [facility] Internal [facility] Work Phone: Comment on above: Method: Infrared 10-24-2019 08:35-0400 Body weight 75.3 kg Wilfrido Bynum LPN [facility] Work Phone: 10-24-2019 08:35-0400 Body weight 73.03 kg Lou Christal [facility] Internal [facility] Work Phone: 10-24-2019 08:35-0400 BP Diastolic 80 mm[Hg] Wilfrido Bynum 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 [facility] Internal [facility] Work Phone: Comment on above: Patient Position: Sitting; Cuff Location : Left Arm; Cuff Size: Standard 10-24-2019 08:35-0400 BP Systolic 140 mm[Hg] Wilfrido Bynum LPN [facility] Internal [facility] Work Phone: Comment on above: Patient Position: Sitting; Cuff Location : Left Arm; Cuff Size: Standard 10-24-2019 08:35-0400 BSA (Body Surface Area) 1.84 m2 Wilfrido Bynum LPN [facility] Internal [facility] Work Phone: 10-24-2019 08:35-0400 BSA (Body Surface Area) 1.82 m2 Lou Siegel [facility] Internal [facility] Work Phone: 10-24-2019 08:35-0400 Height 167 cm Wilfrido Bynum LPN [facility] Internal Medicine Work Phone: 10-24-2019 08:35-0400 Pulse (Heart Rate) 86 /min Wilfrido Bynum LPN [facility] Work Phone: Comment on above: Pattern: Regular 10-24-2019 08:35-0400 Pulse Oximetry 98 % Lou Siegel [facility] Internal Medicine Work Phone: Comment on above: Room air 10-24-2019 08:35-0400 Respiratory Rate 17 /min Wilfrido Fletcher 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 [facility] Work Phone: Comment on above: Pattern: Unlabored 10-24-2019 08:35-0400 SaO2% (BldA) [Mass fraction] 98 % Wilfrido Bynum LPN [facility]; [facility] Work Phone: Comment on above: Room air 08-25-2019 12:38-0400 BMI (Body Mass Index) 26.18 kg/m2 Joy Martínez [facility] Work Phone: Comment on above: no vs taken as this is phone encounter d ue to covid 08-25-2019 12:38-0400 Body weight 73.03 kg Joy Martínez [facility] Work Phone: Comment on above: no vs taken as this is phone encounter d ue to covid 08-25-2019 12:38-0400 BSA (Body Surface Area) 1.82 m2 Joy Martínez [facility] Work Phone: Comment on above: no vs taken as this is phone encounter d ue to covid 08-25-2019 12:38-0400 Height 167 cm Joy Martínez [facility] Work Phone: Comment on above: no vs taken as this is phone encounter d ue to covid 05-12-2019 13:37-0500 BMI (Body Mass Index) 26.18 kg/m2 Pat Brumfield RN [facility] Work Phone: 05-12-2019 13:37-0500 Body weight 73.03 kg Pat Brumfield RN [facility] Work Phone: 05-12-2019 13:37-0500 BP Diastolic 98 mm[Hg] Pat Brumfield RN [facility] Work Phone: Comment on above: Patient Position: Sitting; Cuff Location : Left Arm; Cuff Size: Large 05-12-2019 13:37-0500 BP Systolic 158 mm[Hg] Pat Brumfield RN [facility] Work Phone: Comment on above: Patient Position: Sitting; Cuff Location : Left Arm; Cuff Size: Large 05-12-2019 13:37-0500 BSA (Body Surface Area) 1.82 m2 Pat Brumfield RN [facility] Work Phone: 05-12-2019 13:37-0500 Height 167 cm Pat Brumfield RN [facility] Work Phone: 05-12-2019 13:37-0500 Pulse (Heart Rate) 75 /min Pat Brumfield RN [facility] Work Phone: Comment on above: Pattern: Regular 05-12-2019 13:37-0500 Pulse Oximetry 96 % Lou Siegel [facility] Work Phone: Comment on above: Room air 05-12-2019 13:37-0500 Respiratory Rate 18 /min Pat Brumfield RN [facility] Work Phone: Comment on above: Pattern: Unlabored 05-12-2019 13:37-0500 SaO2% (BldA) [Mass fraction] 96 % Pat Brumfield RN [facility]; [facility] Work Phone: Comment on above: Room air 05-02-2019 15:00-0500 BMI (Body Mass Index) 26.18 kg/m2 Joy Martínez [facility] Work Phone: 05-02-2019 15:00-0500 Body Temperature 97.2 [degF] Joy Martínez [facility] Internal Medicine Work Phone: Comment on above: Method: Temporal 05-02-2019 15:00-0500 Body weight 73.03 kg Joy Martínez [facility] Work Phone: 05-02-2019 15:00-0500 BP Diastolic 62 mm[Hg] Joy Martínez [facility] Work Phone: Comment on above: Patient Position: Sitting; Cuff Location : Left Arm; Cuff Size: Standard 05-02-2019 15:00-0500 BP Systolic 120 mm[Hg] Joy Martínez [facility] Work Phone: Comment on above: Patient Position: Sitting; Cuff Location : Left Arm; Cuff Size: Standard 05-02-2019 15:00-0500 BSA (Body Surface Area) 1.82 m2 Joy Martínez [facility] Work Phone: 05-02-2019 15:00-0500 Height 167 cm Joy Martínez [facility] Work Phone: 05-02-2019 15:00-0500 Pulse (Heart Rate) 86 /min Joy Martínez CMA [facility] Work Phone: Comment on above: Pattern: Regular 05-02-2019 15:00-0500 Pulse Oximetry 92 % Lou Siegel [facility] Work Phone: Comment on above: Room air 05-02-2019 15:00-0500 Respiratory Rate 18 /min Joy Martínez [facility] Work Phone: Comment on above: Pattern: Unlabored 05-02-2019 15:00-0500 SaO2% (BldA) [Mass fraction] 92 % Joy Martínez [facility]; [facility] Work Phone: Comment on above: Room air 04-28-2019 13:07-0500 BMI (Body Mass Index) 26.18 kg/m2 Pat Brumfield RN [facility] Work Phone: 04-28-2019 13:07-0500 Body weight 73.03 kg Pat Brumfield RN [facility] Work Phone: 04-28-2019 13:07-0500 BP Diastolic 80 mm[Hg] Pat Brumfield RN [facility] Work Phone: Comment on above: Patient Position: Sitting; Cuff Location : Right Arm; Cuff Size: Standard 04-28-2019 13:07-0500 BP Systolic 138 mm[Hg] Pat Brumfield RN [facility] Work Phone: Comment on above: Patient Position: Sitting; Cuff Location : Right Arm; Cuff Size: Standard 04-28-2019 13:07-0500 BSA (Body Surface Area) 1.82 m2 Pat Brumfield RN [facility] Work Phone: 04-28-2019 13:07-0500 Height 167 cm Pat Brumfield RN [facility] Work Phone: 04-28-2019 13:07-0500 Pulse (Heart Rate) 62 /min Pat Brumfield RN [facility] Work Phone: Comment on above: Pattern: Regular 04-28-2019 13:07-0500 Pulse Oximetry 92 % Lou Siegel [facility] Work Phone: Comment on above: Room air 04-28-2019 13:07-0500 Respiratory Rate 18 /min Pat Brumfield RN [facility] Work Phone: Comment on above: Pattern: Unlabored 04-28-2019 13:07-0500 SaO2% (BldA) [Mass fraction] 92 % Pat Brumfield RN [facility]; [facility] Work Phone: Comment on above: Room air 04-26-2019 11:33-0500 BMI (Body Mass Index) 26.18 kg/m2 Alyssa Slarb 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 [facility] Work Phone: 04-26-2019 11:33-0500 Body Temperature 97.4 [degF] Alyssa Slarb 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 [facility] Work Phone: 04-26-2019 11:33-0500 Body weight 73.03 kg Alyssa Slarb 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 [facility] Work Phone: 04-26-2019 11:33-0500 BP Diastolic 82 mm[Hg] Alyssa Slarb 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 [facility] Work Phone: Comment on above: Patient Position: Sitting; Cuff Location : Left Arm; Cuff Size: Standard 04-26-2019 11:33-0500 BP Systolic 140 mm[Hg] Alyssa Slarb 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 [facility] Work Phone: Comment on above: Patient Position: Sitting; Cuff Location : Left Arm; Cuff Size: Standard 04-26-2019 11:33-0500 BSA (Body Surface Area) 1.82 m2 Alyssa Slarb 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 [facility] Work Phone: 04-26-2019 11:33-0500 Height 167 cm Alyssa Slarb 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 [facility] Work Phone: 04-26-2019 11:33-0500 Pulse (Heart Rate) 82 /min Alyssa Slarb 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 [facility] Work Phone: Comment on above: Pattern: Regular 04-26-2019 11:33-0500 Pulse Oximetry 95 % Lou Siegel [facility] Work Phone: Comment on above: Room air 04-26-2019 11:33-0500 Respiratory Rate 17 /min Alysas Slarb 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 [facility] Work Phone: Comment on above: Pattern: Unlabored 04-26-2019 11:33-0500 SaO2% (BldA) [Mass fraction] 95 % Alyssa Slarb 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 [facility]; [facility] Work Phone: Comment on above: Room air 04-12-2019 14:40-0500 BMI (Body Mass Index) 26.18 kg/m2 Alyssa Slarb 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 [facility] Work Phone: 04-12-2019 14:40-0500 Body Temperature 97.6 [degF] Alyssa Slarb 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 [facility] Work Phone: 04-12-2019 14:40-0500 Body weight 73.03 kg Alyssa Slarb 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 [facility] Work Phone: 04-12-2019 14:40-0500 BP Diastolic 78 mm[Hg] Alyssa Slarb 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 [facility] Work Phone: Comment on above: Patient Position: Sitting; Cuff Location : Left Arm; Cuff Size: Standard 04-12-2019 14:40-0500 BP Systolic 140 mm[Hg] Alyssa Slarb 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 [facility] Work Phone: Comment on above: Patient Position: Sitting; Cuff Location : Left Arm; Cuff Size: Standard 04-12-2019 14:40-0500 BSA (Body Surface Area) 1.82 m2 Alyssa Slarb 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 [facility] Work Phone: 04-12-2019 14:40-0500 Height 167 cm Alyssa Slarb 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 [facility] Work Phone: 04-12-2019 14:40-0500 Pulse (Heart Rate) 75 /min Alyssa Slarb 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 [facility] Work Phone: Comment on above: Pattern: Regular 04-12-2019 14:40-0500 Pulse Oximetry 90 % Lou Siegel [facility] Work Phone: Comment on above: Room air 04-12-2019 14:40-0500 Respiratory Rate 16 /min Alyssa Slarb 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 [facility] Work Phone: Comment on above: Pattern: Unlabored 04-12-2019 14:40-0500 SaO2% (BldA) [Mass fraction] 90 % Alyssa Slarb 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 [facility]; [facility] Work Phone: Comment on above: Room air 02-08-2019 13:54-0500 BMI (Body Mass Index) 26.18 kg/m2 Alyssa Slarb 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 [facility] Work Phone: 02-08-2019 13:54-0500 Body Temperature 97.5 [degF] Alyssa Slarb 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 [facility] Work Phone: 02-08-2019 13:54-0500 Body weight 73.03 kg Alyssa Slarb 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 [facility] Work Phone: 02-08-2019 13:54-0500 BP Diastolic 82 mm[Hg] Alyssa Slarb 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 [facility] Work Phone: Comment on above: Patient Position: Sitting; Cuff Location : Left Arm; Cuff Size: Standard 02-08-2019 13:54-0500 BP Systolic 126 mm[Hg] Alyssa Slarb 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 [facility] Work Phone: Comment on above: Patient Position: Sitting; Cuff Location : Left Arm; Cuff Size: Standard 02-08-2019 13:54-0500 BSA (Body Surface Area) 1.82 m2 Alyssa Slarb 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 [facility] Work Phone: 02-08-2019 13:54-0500 Height 167 cm Alyssa Slarb 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 [facility] Work Phone: 02-08-2019 13:54-0500 Pulse (Heart Rate) 86 /min Alyssa Slarb 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 [facility] Work Phone: Comment on above: Pattern: Regular 02-08-2019 13:54-0500 Pulse Oximetry 96 % Lou Siegel [facility] Work Phone: Comment on above: Room air 02-08-2019 13:54-0500 Respiratory Rate 17 /min Alyssa Osuna LPN [facility] Work Phone: Comment on above: Pattern: Unlabored 02-08-2019 13:54-0500 SaO2% (BldA) [Mass fraction] 96 % Alyssa Osuna LPN [facility]; [facility] Work Phone: Comment on above: Room air 08-06-2018 10:24-0400 BMI (Body Mass Index) 26.18 kg/m2 Prachi Titus RN [facility] Internal Medicine Work Phone: 08-06-2018 10:24-0400 Body Temperature 97.8 [degF] Prachi Titus RN [facility] Work Phone: Comment on above: Method: Temporal 08-06-2018 10:24-0400 Body weight 73.03 kg Prachi Titus RN [facility] Work Phone: 08-06-2018 10:24-0400 BP Diastolic 78 mm[Hg] Prachi Titus RN [facility] Work Phone: Comment on above: Patient Position: Sitting; Cuff Location : Left Arm; Cuff Size: Standard 08-06-2018 10:24-0400 BP Systolic 120 mm[Hg] Prachi Titus RN [facility] Work Phone: Comment on above: Patient Position: Sitting; Cuff Location : Left Arm; Cuff Size: Standard 08-06-2018 10:24-0400 BSA (Body Surface Area) 1.82 m2 Prachi Titus RN [facility] Work Phone: 08-06-2018 10:24-0400 Height 167 cm Prachi Titus RN [facility] Work Phone: 08-06-2018 10:24-0400 Pulse (Heart Rate) 70 /min Prachi Titus RN [facility] Work Phone: Comment on above: Pattern: Regular 08-06-2018 10:24-0400 Pulse Oximetry 98 % Lou Siegel [facility] Work Phone: Comment on above: Room air 08-06-2018 10:24-0400 Respiratory Rate 16 /min Prachi Titus RN [facility] Work Phone: Comment on above: Pattern: Unlabored 08-06-2018 10:24-0400 SaO2% (BldA) [Mass fraction] 98 % Prachi Titus RN [facility]; [facility] Work Phone: Comment on above: Room air 08-06-2018 10:24-0400 Weight 73.03 kg Lou Siegel [facility] Internal Medicine Work Phone: 07-29-2018 10:51-0400 BMI (Body Mass Index) 26.18 kg/m2 Joy Martínez [facility] Work Phone: 07-29-2018 10:51-0400 Body Temperature 97.2 [degF] Joy Martínez [facility] Work Phone: Comment on above: Method: Temporal 07-29-2018 10:51-0400 Body weight 73.03 kg Joy Martínez [facility] Work Phone: 07-29-2018 10:51-0400 BP Diastolic 76 mm[Hg] Joy Martínez [facility] Internal Medicine Work Phone: Comment on above: Patient Position: Sitting; Cuff Location : Left Arm; Cuff Size: Standard 07-29-2018 10:51-0400 BP Systolic 143 mm[Hg] Joy Martínez [facility] Internal Medicine Work Phone: Comment on above: Patient Position: Sitting; Cuff Location : Left Arm; Cuff Size: Standard 07-29-2018 10:51-0400 BSA (Body Surface Area) 1.82 m2 Joy Martínez [facility] Internal Medicine Work Phone: 07-29-2018 10:51-0400 Height 167 cm Joy Martínez [facility] Internal Medicine Work Phone: 07-29-2018 10:51-0400 Pulse (Heart Rate) 72 /min Joy Martínez [facility] Internal Medicine Work Phone: Comment on above: Pattern: Regular 07-29-2018 10:51-0400 Pulse Oximetry 94 % Lou Siegel [facility] Internal Medicine Work Phone: Comment on above: Room air 07-29-2018 10:51-0400 Respiratory Rate 18 /min Joy Martínez [facility] Internal Medicine Work Phone: Comment on above: Pattern: Unlabored 07-29-2018 10:51-0400 SaO2% (BldA) [Mass fraction] 94 % Joy Martínez [facility]; [facility] Work Phone: Comment on above: Room air 07-29-2018 10:51-0400 Weight 73.03 kg Lou Siegel [facility] Internal Medicine Work Phone: 03-26-2017 11:22-0500 BMI (Body Mass Index) 25.7 kg/m2 Yuko Bynum [facility] Internal Medicine Work Phone: 03-26-2017 11:22-0500 Body Temperature 97.6 [degF] [place] [facility] Internal Medicine Work Phone: 03-26-2017 11:22-0500 Body weight 71.[address] [facility] Work Phone: 03-26-2017 11:22-0500 BP Diastolic 62 mm[Hg] [place] [facility] Work Phone: Comment on above: Patient Position: Sitting; Cuff Location : Left Arm; Cuff Size: Standard 03-26-2017 11:22-0500 BP Systolic 118 mm[Hg] Yuko Bynum [facility] Internal Medicine Work Phone: Comment on above: Patient Position: Sitting; Cuff Location : Left Arm; Cuff Size: Standard 03-26-2017 11:22-0500 BSA (Body Surface Area) 1.[address] [facility] Internal Medicine Work Phone: 03-26-2017 11:22-0500 Height [address] [facility] Internal [facility] Work Phone: 03-26-2017 11:22-0500 Pulse (Heart Rate) 77 /min Yuko Bynum [facility] Internal Medicine Work Phone: Comment on above: Pattern: Regular 03-26-2017 11:22-0500 Pulse Oximetry 94 % Lou Siegel [facility] Work Phone: Comment on above: Room air 03-26-2017 11:22-0500 Respiratory Rate 18 /min Yuko Bynum [facility] Internal Medicine Work Phone: Comment on above: Pattern: Unlabored 03-26-2017 11:22-0500 SaO2% (BldA) [Mass fraction] 94 % Yuko Bynum [facility]; [facility] Work Phone: Comment on above: Room air 03-26-2017 11:22-0500 Weight 71.67 kg Lou Siegel [facility] Work Phone: 01-09-2017 08:40-0400 BMI (Body Mass Index) 25.7 kg/m2 Pat Brumfield RN [facility] Work Phone: 01-09-2017 08:40-0400 Body weight 71.67 kg Pat Brumfield RN [facility] Work Phone: 01-09-2017 08:40-0400 BP Diastolic 80 mm[Hg] Pat Brumfield RN [facility] Work Phone: Comment on above: Patient Position: Sitting; Cuff Location : Left Arm; Cuff Size: Large 01-09-2017 08:40-0400 BP Systolic 128 mm[Hg] Pat Brumfield RN [facility] Work Phone: Comment on above: Patient Position: Sitting; Cuff Location : Left Arm; Cuff Size: Large 01-09-2017 08:40-0400 BSA (Body Surface Area) 1.8 m2 Pat Brumfield RN [facility] Work Phone: 01-09-2017 08:40-0400 Height 167 cm Pat Brumfield RN [facility] Work Phone: 01-09-2017 08:40-0400 Pulse (Heart Rate) 69 /min Pat Brumfield RN [facility] Work Phone: Comment on above: Pattern: Regular 01-09-2017 08:40-0400 Pulse Oximetry 97 % Lou Christal [facility] Work Phone: Comment on above: Room air 01-09-2017 08:40-0400 Respiratory Rate 18 /min Pat Brumfield RN [facility] Work Phone: Comment on above: Pattern: Unlabored 01-09-2017 08:40-0400 SaO2% (BldA) [Mass fraction] 97 % Pat Brumfield RN [facility]; [facility] Work Phone: Comment on above: Room air 01-09-2017 08:40-0400 Weight 71.67 kg Lou Christal [facility] Work Phone: 01-02-2017 09:38-0400 BMI (Body Mass Index) 25.7 kg/m2 Pat Brumfield RN [facility] Work Phone: 01-02-2017 09:38-0400 Body weight 71.67 kg Pat Brumfield RN [facility] Work Phone: 01-02-2017 09:38-0400 BP Diastolic 68 mm[Hg] Pat Brumfield RN [facility] Work Phone: Comment on above: Patient Position: Sitting; Cuff Location : Left Arm; Cuff Size: Large 01-02-2017 09:38-0400 BP Systolic 120 mm[Hg] Pat Brumfield RN [facility] Work Phone: Comment on above: Patient Position: Sitting; Cuff Location : Left Arm; Cuff Size: Large 01-02-2017 09:38-0400 BSA (Body Surface Area) 1.8 m2 Pat Brumfield RN [facility] Work Phone: 01-02-2017 09:38-0400 Height 167 cm Pat Brumfield RN [facility] Work Phone: 01-02-2017 09:38-0400 Pulse (Heart Rate) 66 /min Pat Brumfield RN [facility] Work Phone: Comment on above: Pattern: Regular 01-02-2017 09:38-0400 Pulse Oximetry 97 % Lou Christal [facility] Work Phone: Comment on above: Room air 01-02-2017 09:38-0400 Respiratory Rate 18 /min Pat Brumfield RN [facility] Work Phone: Comment on above: Pattern: Unlabored 01-02-2017 09:38-0400 SaO2% (BldA) [Mass fraction] 97 % Pat Brumfield RN [facility]; [facility] Work Phone: Comment on above: Room air 01-02-2017 09:38-0400 Weight 71.67 kg Lou Siegel [facility] Work Phone: 03-14-2016 09:47-0500 BMI (Body Mass Index) 25.7 kg/m2 Alyssa Slarb 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 [facility] Work Phone: 03-14-2016 09:47-0500 Body Temperature 98.8 [degF] Alyssa Slarb 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 [facility] Work Phone: 03-14-2016 09:47-0500 Body weight 71.67 kg Alyssa Slarb 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 [facility] Work Phone: 03-14-2016 09:47-0500 BP Diastolic 80 mm[Hg] Alyssa Slarb 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 [facility] Work Phone: Comment on above: Patient Position: Sitting; Cuff Location : Left Arm; Cuff Size: Standard 03-14-2016 09:47-0500 BP Systolic 118 mm[Hg] Alyssa Slarb 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 [facility] Work Phone: Comment on above: Patient Position: Sitting; Cuff Location : Left Arm; Cuff Size: Standard 03-14-2016 09:47-0500 BSA (Body Surface Area) 1.8 m2 Alyssa Slarb 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 [facility] Work Phone: 03-14-2016 09:47-0500 Height 167 cm Alyssa Slarb 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 [facility] Work Phone: 03-14-2016 09:47-0500 Pulse (Heart Rate) 91 /min Alyssa Slarb 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 [facility] Work Phone: Comment on above: Pattern: Regular 03-14-2016 09:47-0500 Pulse Oximetry 95 % Lou Siegel [facility] Work Phone: Comment on above: Room air 03-14-2016 09:47-0500 Respiratory Rate 19 /min Alyssa Lorenzokacie LEON [facility] Work Phone: Comment on above: Pattern: Unlabored 03-14-2016 09:47-0500 SaO2% (BldA) [Mass fraction] 95 % Alyssa Lorenzokacie LEON [facility]; [facility] Work Phone: Comment on above: Room air 03-14-2016 09:47-0500 Weight 71.67 kg Lou Siegel [facility] Work Phone: 01-31-2015 11:01-0500 BMI (Body Mass Index) 26.37 kg/m2 Pat Brumfield RN [facility] Work Phone: 01-31-2015 11:01-0500 Body Temperature 97.7 [degF] Pat Brumfield RN [facility] Work Phone: Comment on above: Method: Temporal 01-31-2015 11:01-0500 Body weight 73.54 kg Pat Brumfield RN [facility] Work Phone: 01-31-2015 11:01-0500 BP Diastolic 70 mm[Hg] Pat Brumfield RN [facility] Work Phone: Comment on above: Patient Position: Sitting; Cuff Location : Left Arm; Cuff Size: Large 01-31-2015 11:01-0500 BP Systolic 140 mm[Hg] Pat Brumfield RN [facility] Work Phone: Comment on above: Patient Position: Sitting; Cuff Location : Left Arm; Cuff Size: Large 01-31-2015 11:01-0500 BSA (Body Surface Area) 1.82 m2 Pat Brumfield RN [facility] Work Phone: 01-31-2015 11:01-0500 Height 167 cm Pat Brumfield RN [facility] Work Phone: 01-31-2015 11:01-0500 Pulse (Heart Rate) 78 /min Pat Brumfield RN [facility] Work Phone: Comment on above: Pattern: Regular 01-31-2015 11:01-0500 Pulse Oximetry 93 % Lou Siegel [facility] Work Phone: Comment on above: Room air 01-31-2015 11:01-0500 Respiratory Rate 16 /min Pta Brumfield RN [facility] Work Phone: Comment on above: Pattern: Unlabored 01-31-2015 11:01-0500 SaO2% (BldA) [Mass fraction] 93 % Pat Brumfield RN [facility]; [facility] Work Phone: Comment on above: Room air 01-31-2015 11:01-0500 Weight 73.54 kg Lou Aguilaron [facility] Work Phone: 05-19-2014 10:47-0500 BMI (Body Mass Index) 26.37 kg/m2 Pat Brumfield RN [facility] Work Phone: 05-19-2014 10:47-0500 Body weight 73.54 kg Pat Brumfield RN [facility] Work Phone: 05-19-2014 10:47-0500 BP Diastolic 76 mm[Hg] Pat Brumfield RN [facility] Work Phone: Comment on above: Patient Position: Sitting; Cuff Location : Left Arm; Cuff Size: Large 05-19-2014 10:47-0500 BP Systolic 122 mm[Hg] Pat Brumfield RN [facility] Work Phone: Comment on above: Patient Position: Sitting; Cuff Location : Left Arm; Cuff Size: Large 05-19-2014 10:47-0500 BSA (Body Surface Area) 1.82 m2 Pat Brumfield RN [facility] Work Phone: 05-19-2014 10:47-0500 Height 167 cm Pat Brumfield RN [facility] Work Phone: 05-19-2014 10:47-0500 Pulse (Heart Rate) 74 /min Pat Brumfield RN [facility] Work Phone: Comment on above: Pattern: Regular 05-19-2014 10:47-0500 Pulse Oximetry 96 % Lou Aguilaron [facility] Work Phone: Comment on above: Room air 05-19-2014 10:47-0500 Respiratory Rate 18 /min Pat Brumfield RN [facility] Work Phone: Comment on above: Pattern: Unlabored 05-19-2014 10:47-0500 SaO2% (BldA) [Mass fraction] 96 % Pat Brumfield RN [facility]; [facility] Work Phone: Comment on above: Room air 05-19-2014 10:47-0500 Weight 73.54 kg Lou Siegel [facility] Work Phone: 05-08-2014 15:05-0500 BMI (Body Mass Index) 25.28 kg/m2 Pat Brumfield RN [facility] Work Phone: 05-08-2014 15:05-0500 Body weight 70.51 kg Pat Brumfield RN [facility] Work Phone: 05-08-2014 15:05-0500 BP Diastolic 78 mm[Hg] Pat Brumfield RN [facility] Work Phone: Comment on above: Patient Position: Sitting; Cuff Location : Left Arm; Cuff Size: Large 05-08-2014 15:05-0500 BP Systolic 122 mm[Hg] Pat Brumfield RN [facility] Work Phone: Comment on above: Patient Position: Sitting; Cuff Location : Left Arm; Cuff Size: Large 05-08-2014 15:05-0500 BSA (Body Surface Area) 1.79 m2 Pat Brumfield RN [facility] Work Phone: 05-08-2014 15:05-0500 Height 167 cm Pat Brumfield RN [facility] Work Phone: 05-08-2014 15:05-0500 Pulse (Heart Rate) 74 /min Pat Brumfield RN [facility] Work Phone: Comment on above: Pattern: Regular 05-08-2014 15:05-0500 Pulse Oximetry 94 % Lou Siegel [facility] Work Phone: Comment on above: Room air 05-08-2014 15:05-0500 Respiratory Rate 18 /min Pat Brumfield RN [facility] Work Phone: Comment on above: Pattern: Unlabored 05-08-2014 15:05-0500 SaO2% (BldA) [Mass fraction] 94 % Pat Brumfield RN [facility]; [facility] Work Phone: Comment on above: Room air 05-08-2014 15:05-0500 Weight 70.51 kg Lou Siegel [facility] Work Phone: 10-02-2010 09:22-0400 BP Diastolic 70 mm[Hg] Shreya Hanson RN [facility] Work Phone: Comment on above: Patient Position: Sitting; Cuff Location : Left Arm; Cuff Size: Standard 10-02-2010 09:22-0400 BP Systolic 120 mm[Hg] Shreya Hanson RN [facility] Work Phone: Comment on above: Patient Position: Sitting; Cuff Location : Left Arm; Cuff Size: Standard 10-02-2010 09:22-0400 Pulse (Heart Rate) 72 /min Shreya Hanson RN [facility] Work Phone: Comment on above: Pattern: Regular 10-02-2010 09:22-0400 Pulse Oximetry 95 % Lou Siegel [facility] Work Phone: Comment on above: Room air 10-02-2010 09:22-0400 Respiratory Rate 16 /min Shreya Hanson RN [facility] Work Phone: 10-02-2010 09:22-0400 SaO2% (BldA) [Mass fraction] 95 % Shreya Hanson RN [facility]; [facility] Work Phone: Comment on above: Room air 10-01-2010 10:02-0400 BMI (Body Mass Index) 26.02 kg/m2 Prachi Titus RN [facility] Internal Medicine Work Phone: 10-01-2010 [id number]:[id number] Body Temperature 97.9 [degF] Prachi Titus RN [facility] Work Phone: Comment on above: Method: Oral 10-01-2010 10:020400 Body weight 72.58 kg Prachi Titus RN [facility] Work Phone: 10-01-2010 10:02-0400 BSA (Body Surface Area) 1.81 m2 Prachi Titus RN [facility] Internal [facility] Work Phone: 10-01-2010 10:02-0400 Height 167 cm Prachi Titus RN [facility] Internal [facility] Work Phone: 10-01-2010 10:02-0400 Pulse (Heart Rate) 64 /min Prachi Titus RN [facility] Internal [facility] Work Phone: Comment on above: Pattern: Regular 10-01-2010 10:02-0400 Respiratory Rate 16 /min Prachi Titus RN [facility] Internal [facility] Work Phone: Comment on above: Pattern: Unlabored 10-01-2010 10:02-0400 Weight 72.58 kg Lou Siegel [facility] Internal [facility] Work Phone: 09-02-2010 09:06-0400 BMI (Body Mass Index) 26.02 kg/m2 Cher Mendez [facility] Internal Medicine Work Phone: 09-02-2010 09:06-0400 Body Temperature 97.6 [degF] Cher Mendez [facility] Internal [facility] Work Phone: 09-02-2010 09:06-0400 Body weight 72.58 kg Cher Vanessa [facility] Internal Medicine Work Phone: 09-02-2010 09:06-0400 BP Diastolic 80 mm[Hg] Cher Mendez [facility] Internal [facility] Work Phone: Comment on above: Patient Position: Sitting; Cuff Location : Left Arm; Cuff Size: Standard 09-02-2010 09:06-0400 BP Systolic 122 mm[Hg] Cher Mendez [facility] Internal Medicine Work Phone: Comment on above: Patient Position: Sitting; Cuff Location : Left Arm; Cuff Size: Standard 09-02-2010 09:06-0400 BSA (Body Surface Area) 1.81 m2 Cher Mendez [facility] Internal Medicine Work Phone: 09-02-2010 09:06-0400 Height 167 cm Cher Mendez [facility] Internal [facility] Work Phone: 09-02-2010 09:06-0400 Pulse (Heart Rate) 72 /min Cher Mendez [facility] Work Phone: Comment on above: Pattern: Regular 09-02-2010 09:06-0400 Respiratory Rate 18 /min Cher Mendez [facility] Internal [facility] Work Phone: Comment on above: Pattern: Unlabored 09-02-2010 09:06-0400 Weight 72.58 kg Lou Siegel [facility] Internal [facility] Work Phone: 08-06-2010 10:54-0400 BMI (Body Mass Index) 25.21 kg/m2 [facility] Work Phone: 08-06-2010 10:54-0400 Body Temperature 98.4 [degF] Cher Mendez [facility] Internal [facility] Work Phone: 08-06-2010 10:54-0400 Body weight 70.31 kg Cher Mendez [facility] Work Phone: 08-06-2010 10:54-0400 BP Diastolic 68 mm[Hg] Cher Mendez [facility] Internal [facility] Work Phone: Comment on above: Patient Position: Sitting; Cuff Location : Left Arm; Cuff Size: Standard 08-06-2010 10:54-0400 BP Systolic 126 mm[Hg] Cher Mendez [facility] Internal [facility] Work Phone: Comment on above: Patient Position: Sitting; Cuff Location : Left Arm; Cuff Size: Standard 08-06-2010 10:54-0400 BSA (Body Surface Area) 1.79 m2 Cher Mendez [facility] Internal [facility] Work Phone: 08-06-2010 10:54-0400 Height 167 cm hCer Mendez [facility] Work Phone: 08-06-2010 10:54-0400 Pulse (Heart Rate) 84 /min Cher Mendez [facility] Work Phone: Comment on above: Pattern: Regular 08-06-2010 10:54-0400 Pulse Oximetry 93 % Lou Siegel [facility] Work Phone: Comment on above: Room air 08-06-2010 10:54-0400 Respiratory Rate 18 /min Cher Mendez [facility] Work Phone: Comment on above: Pattern: Unlabored 08-06-2010 10:54-0400 SaO2% (BldA) [Mass fraction] 93 % Cher Mendez [facility]; [facility] Work Phone: Comment on above: Room air 08-06-2010 10:54-0400 Weight 70.31 kg Lou Aguilaron [facility] Work Phone: 10-13-2008 10:18-0400 Body Temperature 98.2 [degF] Shreya Hanson RN [facility] Work Phone: Comment on above: Method: Oral 10-13-2008 10:18-0400 Body weight 0 kg Shreya Hanson RN [facility] Work Phone: 10-13-2008 10:18-0400 BP Diastolic 70 mm[Hg] Shreya Hanson RN [facility] Work Phone: Comment on above: Patient Position: Sitting; Cuff Location : Left Arm; Cuff Size: Standard 10-13-2008 10:18-0400 BP Systolic 110 mm[Hg] Shreya Hanson RN [facility] Work Phone: Comment on above: Patient Position: Sitting; Cuff Location : Left Arm; Cuff Size: Standard 10-13-2008 10:18-0400 Head Circumference 0 cm Lou Aguilaron [facility] Work Phone: 10-13-2008 10:18-0400 Head Occipital-frontal circumference 0 cm Shreya Hanson RN [facility]; [facility] Work Phone: 10-13-2008 10:18-0400 Height 0 cm Shreya Hanson RN [facility] Work Phone: 10-13-2008 10:18-0400 Pulse (Heart Rate) 76 /min Shreya Hanson RN [facility] Work Phone: Comment on above: Pattern: Regular 10-13-2008 10:18-0400 Respiratory Rate 16 /min Shreya Hanson RN [facility] Work Phone: Comment on above: Pattern: Unlabored 10-13-2008 10:18-0400 Weight 0 kg Lou Siegel [facility] Work Phone: 10-09-2008 15:17-0400 Body Temperature 96.6 [degF] Cher Mendez [facility] Work Phone: Comment on above: Method: Undefined 10-09-2008 15:17-0400 Body weight 68.49 kg Cher Vanessa [facility] Internal [facility] Work Phone: 10-09-2008 15:17-0400 BP Diastolic 74 mm[Hg] Cher Mendez [facility] Internal Medicine Work Phone: Comment on above: Patient Position: Sitting; Cuff Location : Right Arm; Cuff Size: Standard 10-09-2008 15:17-0400 BP Systolic 126 mm[Hg] Cher Mendez [facility] Internal [facility] Work Phone: Comment on above: Patient Position: Sitting; Cuff Location : Right Arm; Cuff Size: Standard 10-09-2008 15:17-0400 Head Circumference 0 cm Lou Siegel [facility] Internal [facility] Work Phone: 10-09-2008 15:17-0400 Head Occipital-frontal circumference 0 cm Cher Mendez [facility]; [facility] Work Phone: 10-09-2008 15:17-0400 Height 0 cm Cher Mendez [facility] Internal [facility] Work Phone: 10-09-2008 15:17-0400 Pulse (Heart Rate) 96 /min [facility] Work Phone: Comment on above: Pattern: Regular 10-09-2008 15:17-0400 Respiratory Rate 18 /min Cher Mendez [facility] Internal [facility] Work Phone: Comment on above: Pattern: Undefined 10-09-2008 15:17-0400 Weight 68.49 kg Lou Siegel [facility] Internal [facility] Work Phone: 12-04-2006 08:49-0400 BMI (Body Mass Index) 25.17 kg/m2 Pat Brumfield [facility] Internal Medicine Work Phone: 12-04-2006 08:49-0400 Body Temperature 97.8 [degF] Pat Brumfield [facility] Internal [facility] Work Phone: Comment on above: Method: Oral 12-04-2006 08:49-0400 Body weight 75.1 kg Pat Brumfield [facility] Work Phone: 12-04-2006 08:49-0400 BP Diastolic 70 mm[Hg] Pat Brumfield [facility] Work Phone: Comment on above: Patient Position: Sitting; Cuff Location : Left Arm; Cuff Size: Standard 12-04-2006 08:49-0400 BP Systolic 112 mm[Hg] Pat Brumfield [facility] Work Phone: Comment on above: Patient Position: Sitting; Cuff Location : Left Arm; Cuff Size: Standard 12-04-2006 08:49-0400 BSA (Body Surface Area) 1.89 m2 Pat Brumfield [facility] Work Phone: 12-04-2006 08:49-0400 Head Circumference 0 cm Lou Siegel [facility] Work Phone: 12-04-2006 08:49-0400 Head Occipital-frontal circumference 0 cm Pat Velazco [facility]; [facility] Work Phone: 12-04-2006 08:49-0400 Height 172.72 cm Pat Brumfield [facility] Work Phone: 12-04-2006 08:49-0400 Pulse (Heart Rate) 68 /min Pat Brumfield [facility] Work Phone: Comment on above: Pattern: Regular 12-04-2006 08:49-0400 Respiratory Rate 20 /min Pat Brumfield [facility] Work Phone: Comment on above: Pattern: Unlabored 12-04-2006 08:49-0400 Weight 75.1 kg Lou Siegel [facility] Work Phone: Encounters Encounter Date Encounter Type Care Provider Facility Start: 02-15-2025 ambulatory J Luis Ho Artem Facility:[facility] Start: 02-13-2025 ambulatory Madeleine Centeno Facility:[facility] Start: 01-30-2025 ambulatory Axel Brito Faci lity:[facility] Start: 01-27-2025 Encounter for other preprocedural examination Axel Brito [facility] Start: 01-17-2025 End: 01-17-2025 ambulatory Axel Brito Facility[facility] Start: 01-12-2025 ambulatory Madeleine Centeno [facility] Start: 01-11-2025 End: 01-12-2025 ambulatory Gagandeep Friend Facility:[facility] Start: 01-02-2025 End: 01-02-[address] J Luis Mcgill MD -Laboratory Phy Office 3rd Flr Start: 01-02-2025 End: 01-02-2025 ambulatory J Luis Mcgill Facility:[facility] Start: 12-29-2024 End: 12-29-[address] J Luis Mcgill MD -Medical Out Work Phone: Start: 12-29-2024 End: 12-29-[address] J Luis Mcgill MD Work Phone: -Medical Out Start: 12-28-2024 End: 12-28-[address] J Luis Mcgill MD Work Phone: -Cardiovascular Services Start: 12-28-2024 End: 12-28-[address] J Luis Mcgill MD -Cardiovascular Services Work Phone: Start: 12-28-2024 End: 12-28-[address] J Luis Mcgill MD Work Phone: -Laboratory Phy Office 3rd Flr Start: 12-28-2024 End: 12-28-[address] J Luis Mcgill MD -Laboratory Phy Office 3rd Flr Start: 12-27-2024 End: 12-27-[address] J Luis Mcgill MD Work Phone: -Cat Scan [facility] Start: 12-27-2024 End: 12-27-[address] J Luis Mcgill MD -Cat Scan [facility] Work Phone: Start: 12-27-2024 End: 12-28-[address] J Luis Mcgill MD Work Phone: -Laboratory Phy Office 3rd Flr Start: 12-27-2024 End: 12-27-[address] J Luis Mcgill MD -Laboratory Phy Office 3rd Flr Start: 12-27-2024 End: 12-27-2024 ambulatory J Luis Chi Artem Facility:[facility] Start: 12-09-2024 ambulatory Gagandeep Friend Facility :[facility] Start: 12-07-2024 End: 12-07-[address] J Luis Mcgill MD Work Phone: -Laboratory Phy Office 3rd Flr Start: 12-07-2024 End: 12-07-[address] J Luis Mcgill MD -Laboratory Phy Office 3rd Flr Start: 12-07-2024 End: 12-07-2024 ambulatory J Luis Chi Artem Facility:[facility] Start: 11-08-2024 ambulatory Gagandeep Friend Facility :[facility] Start: 10-29-2024 ambulatory J Luis Chi Artem Facility:[facility] Start: 10-26-2024 ambulatory J Luis Chi Artem Facility:[facility] Start: 10-20-2024 End: 10-20-[address] Gerson Irvin MD -[facility] Work Phone: Start: 10-20-2024 End: 10-20-[address] J Luis Mcgill MD Work Phone: -[facility] Start: 09-27-2024 End: 09-27-2024 Patient encounter procedure Leandra THAO -[facility] Work Phone: Start: 09-27-2024 End: 09-27-[address] J Luis Mcgill MD Work Phone: -[facility] Start: 09-27-2024 End: 09-27-2024 ambulatory Leandra Diaz Facility:[facility] Start: 09-21-2024 End: 09-21-[address] J Luis Mcgill MD Work Phone: -Laboratory Specimen Start: 09-21-2024 End: 09-21-[address] J Luis Mcgill MD -Laboratory Specimen Work Phone: Start: 09-21-2024 End: 09-21-2024 ambulatory [facility] Facility:[facility] Start: 08-17-[address] J Luis Mcgill MD -Laboratory Specimen Work Phone: Start: 08-16-2024 End: 08-16-[address] J Luis Mcgill MD Work Phone: [facility] Work Phone: Start: 08-16-2024 End: 08-16-[address] J Luis Mcgill MD -Laboratory Work Phone: Start: 08-16-2024 End: 08-16-[facility] Start: 08-12-2024 Non-patient / Non-visit Dr. Kelton whipple MD -[facility] Start: 08-12-2024 End: 08-12-[address] J Luis Mcgill MD Work Phone: [facility] Work Phone: Start: 08-12-2024 End: 08-12-2024 Patient encounter procedure Madeleine Centeno PA -Cardiovascular Services Work Phone: Start: 08-12-2024 End: 08-12-2024 ambulatory Madeleine Centeno Facility:[facility] Start: 08-10-2024 End: 08-10-[address] J Luis Mcgill MD Work Phone: [facility] Work Phone: Start: 08-10-2024 End: 08-10-[address] J Luis Mcgill MD -Laboratory Work Phone: Start: 08-10-2024 End: 08-10-2024 ambulatory J Luis Mcgill Facility:[facility] Start: 08-05-2024 End: 08-05-2024 Patient encounter procedure Pat JARAMILLO -[facility] Work Phone: Start: 08-05-2024 End: 08-05-[address] J Luis Mcgill MD Work Phone: [facility] Work Phone: Start: 07-27-2024 End: 07-27-2024 Patient encounter procedure Madeleine THAO -[facility] Work Phone: Start: 07-27-2024 End: 07-27-2024 ambulatory J Luis Chi Artem Facility:[facility] Start: 07-25-2024 ambulatory J Luis Ho Mcgill [facility] Start: 07-13-2024 Non-patient / Non-visit Madeleine THAO -[facility] Start: 07-12-2024 End: 07-13-2024 Evaluation and management of inpatient Dr. Kelton Blakely MD -Intensive Care Unit Work Phone: Start: 07-12-2024 Non-patient / Non-visit Dr. Kelton whipple MD -[facility] Start: 07-12-2024 ambulatory Kelton Blakely [facility] Start: 07-12-2024 ambulatory Kelton Blakely [facility] Start: 06-27-2024 End: 06-27-[address] Kelton Blakely MD -[facility] Work Phone: Start: 06-27-2024 End: 06-27-2024 ambulatory Kelton Blakely Facility:[facility] Start: 06-23-2024 End: 06-23-[address] Gerson Irvin MD -[facility] Work Phone: Start: 06-23-2024 End: 06-23-2024 ambulatory Gerson Irvin Facility:[facility] Start: 06-15-2024 End: 06-15-[address] J Luis Mcgill MD Work Phone: [facility] Work Phone: Start: 06-15-2024 End: 06-15-[address] J Luis Mcgill MD -Radiology, [facility] Work Phone: Start: 06-15-2024 End: 06-15-2024 ambulatory J Luis [place] Facility:[facility] Start: 06-13-2024 End: 06-13-2024 Admission to same day surgery center Dr. Darryn Bowens MD -Casework Specialist/Special Procedures Work Phone: Start: 06-13-2024 End: 06-13-[address] J Luis Mcgill MD Work Phone: [facility] Work Phone: Start: 06-03-2024 End: 06-03-2024 Patient encounter procedure Madeleine THAO -[facility] Work Phone: Start: 06-03-2024 End: 06-03-2024 ambulatory J Luis Chi Artem Facility:[facility] Start: 06-02-2024 ambulatory J Luis [facility] Start: 05-30-2024 End: 05-30-[address] J Luis Mcgill MD Work Phone: [facility] Work Phone: Start: 05-30-2024 End: 05-30-[address] Heraclio Shaffer MD -MRI - [facility] Work Phone: Start: 05-30-2024 End: 05-30-2024 ambulatory Heraclio Shaffer Facility:[facility] Start: 05-25-2024 Non-patient / Non-visit Dr. Kelton whipple MD -[facility] Start: 05-25-2024 End: 05-25-[address] J Luis Mcgill MD Work Phone: [facility] Work Phone: Start: 05-25-2024 End: 05-25-[address] J Luis Mcgill MD -Cardiovascular Services Work Phone: Start: 05-25-2024 End: 05-25-2024 ambulatory J Luis Mcgill Facility:[facility] Start: 05-23-2024 End: 05-23-[address] J Luis Mcgill MD Work Phone: [facility] Work Phone: Start: 05-23-2024 End: 05-23-[address] J Luis Mcgill MD -Cat Scan, [facility] Work Phone: Start: 05-23-2024 End: 05-23-2024 ambulatory J Luis Ho [place] Facility:[facility] Start: 05-20-2024 End: 05-20-[address] J Luis Mcgill MD Work Phone: [facility] Work Phone: Start: 05-20-2024 End: 05-20-2024 Patient encounter procedure Addis THAO -Radiology, [facility] Work Phone: Start: 05-20-2024 End: 05-20-2024 Patient encounter procedure Addis THAO -[facility] Work Phone: Start: 05-20-2024 End: 05-20-2024 ambulatory J Luis Mcgill [facility] Start: 05-19-2024 End: 05-20-[address] J Luis Mcgill MD Work Phone: [facility] Work Phone: Start: 05-19-2024 End: 05-19-[address] J Luis Mcgill MD -Laboratory, Phy Office 3rd [facility] Start: 05-18-2024 Non-patient / Non-visit Dr. Russell Ervin MD -[facility] Start: 05-18-2024 End: 05-19-[address] J Luis Mcgill MD Work Phone: [facility] Work Phone: Start: 05-18-2024 End: 05-18-[address] J Luis Mcgill MD -Cardiovascular Services Work Phone: Start: 05-18-2024 End: 05-18-2024 ambulatory J Luis Mcgill Facility:[facility] Start: 05-09-2024 End: 05-09-[address] J Luis Mcgill MD -Pulmonary Services/Neurology Work Phone: Start: 05-09-2024 End: 05-09-2024 [facility] Start: 04-25-2024 End: 04-25-[address] J Luis Mcgill MD -[facility] Work Phone: Start: 04-25-2024 End: 04-25-2024 ambulatory J Luis Ho Artem Facility:[facility] Start: 04-22-2024 End: 04-22-[address] Darryn Bowens MD -[facility] Work Phone: Start: 04-22-2024 End: 04-22-2024 ambulatory Darryn Bowens Facility:[facility] Start: 03-17-2024 End: 03-17-[address] Gerson Irvin MD -[facility] Work Phone: Start: 03-17-2024 End: 03-17-2024 ambulatory Gerson Irvin Facility:[facility] Start: 03-08-2024 ambulatory J Luis [facility] Start: 03-08-2024 Non-patient / Non-visit Dr. Elizabeth MUNOZ -[facility] Start: 03-08-2024 End: 03-08-[address] J Luis Mcgill MD -Cardiovascular Services Work Phone: Start: 03-08-2024 End: 03-08-2024 ambulatory J Luis Teague Art[place] Facility:[facility] Start: 03-03-2024 End: 03-03-[address] Gerson Irvin MD -[facility] Work Phone: Start: 03-03-2024 End: 03-03-2024 ambulatory Gerson Irvin Facility:[facility] Start: 02-22-2024 End: 02-22-[address] J Luis Mcgill MD -Laboratory, Phy Office 3rd Flr Start: 02-22-2024 End: 02-22-2024 ambulatory J Luis Ho [place] Facility:[facility] Start: 02-12-2024 End: 02-12-[address] J Luis Mcgill MD -Laboratory, Phy Office 3rd Flr Start: 02-12-2024 End: 02-12-2024 ambulatory J Luis Teague Artem Facility:[facility] Start: 07-16-2023 End: 07-16-[address] J Luis Mcgill Work Phone: [facility] Work Phone: Start: 07-16-2023 End: 07-16-[address] J Luis Mcgill Work Phone: [facility] Work Phone: Start: 07-15-2023 End: 07-15-2023 Emergency department patient visit Dr. J Luis Mcgill Work Phone: [facility]-Emergency Department Work Phone: Start: 07-08-2023 End: 07-08-[address] J Luis Mcgill Work Phone: [facility] Work Phone: Start: 07-08-2023 End: 07-08-[address] J Luis Mcgill Work Phone: [facility] Work Phone: Start: 07-07-2023 Non-patient / Non-visit Dr. Wan Mcgill Work Phone: [facility] Start: 07-07-2023 Non-patient / Non-visit Dr. Wan Mcgill Work Phone: [facility] Work Phone: Start: 07-06-2023 End: 07-06-2023 Non-patient / Non-visit Dr. J Luis Mcgill Work Phone: [facility] Work Phone: Start: 07-06-2023 End: 07-07-2023 Evaluation and management of inpatient [facility]-Progressive Care Unit Work Phone: Start: 07-06-2023 End: 07-07-[address] J Luis Mcgill Work Phone: [facility] Work Phone: Start: 07-06-2023 End: 07-06-[address] J Luis Mcgill Work Phone: [facility] Work Phone: Start: 07-06-2023 End: 07-06-2023 Patient encounter procedure [facility]-Laboratory, Phy Office 3rd Flr Start: 07-01-2023 End: 07-01-[address] J Luis Mcgill Work Phone: [facility] Work Phone: Start: 07-01-2023 End: 07-01-2023 Patient encounter procedure [facility]-Laboratory, Phy Office 3rd Flr Start: 06-30-2023 Orders Only Vikki Gay MD Work Phone: [facility] [place] Comment on above: Dyspnea, unspecified type (Primary Dx) Start: 06-25-2023 End: 06-25-2023 ambulatory [facility] Work Phone: Start: 06-25-2023 End: 06-25-2023 [facility] Start: 06-19-2023 End: 06-19-2023 Emergency department patient visit [facility]-Emergency Department Work Phone: Start: 06-11-2023 End: 06-11-2023 ambulatory [facility] Work Phone: Start: 06-11-2023 End: 06-11-2023 Patient encounter procedure [facility]-Pulmonary Services/Neurology Work Phone: Start: 03-04-2023 End: 03-04-2023 ambulatory [facility] Work Phone: Start: 03-04-2023 End: 03-04-2023 Patient encounter procedure [facility]-Laboratory, y Office 3rd Flr Start: 02-16-2023 End: 02-16-2023 ambulatory [facility] Work Phone: Start: 02-16-2023 End: 02-16-2023 Patient encounter procedure [facility]-Laboratory, y Office 3rd Flr Start: 02-10-2023 End: 02-10-2023 Patient encounter procedure [facility]-Laboratory, y Office 3rd Flr Start: 12-03-2022 End: 12-03-2022 ambulatory [facility] Work Phone: Start: 12-03-2022 End: 12-03-2022 Discharged Recurring [facility]-Physical Therapy Work Phone: Start: 11-25-2022 End: 11-26-2022 Patient encounter procedure Lou Christal DO Work Phone: [facility] Start: 11-12-2022 End: 11-12-2022 Office outpatient visit 10 minutes Lou Christal DO Work Phone: [facility] Start: 10-13-2022 End: 10-13-2022 Office outpatient visit 10 minutes Lou Christal DO Work Phone: [facility] Start: 06-12-2022 Review Lou Aguilaro n DO Work Phone: [facility] Start: 06-12-2022 End: 06-12-2022 Office outpatient visit 10 minutes Lou Christal DO Work Phone: [facility] Start: 06-10-2022 ambulatory Lou Christal DO [facility] Start: 06-05-2022 End: 06-05-2022 Prescription Refill Lou Christal DO Work Phone: [facility] Start: 05-30-2022 End: 05-30-2022 Annotation/Addendum Lou Christal DO Work Phone: [facility] Start: 05-29-2022 End: 05-29-[address] Lou Siegel Work Phone: [facility] Start: 05-29-2022 End: 05-29-2022 Office outpatient visit 15 minutes Lou Christal DO Work Phone: [facility] Start: 05-05-2022 End: 05-05-2022 Office outpatient visit 15 minutes Lou Christal DO Work Phone: [facility] Start: 03-26-2022 End: 03-26-2022 Office outpatient visit 10 minutes Lounatalio Siegel DO Work Phone: [facility] Start: 03-25-2022 End: 03-31-2022 Office outpatient visit 15 minutes Lou Christal DO Work Phone: [facility] Start: 03-25-2022 End: 03-25-[address] Lou Siegel Work Phone: [facility] Work Phone: Start: 03-25-2022 End: 03-25-[address] Lou Siegel Work Phone: [facility] Start: 03-25-2022 Review Lou bowling DO Work Phone: [facility] Start: 03-22-2022 End: 03-22-2022 ambulatory LOU SIEGEL Facility:[facility] Start: 03-22-2022 End: 03-22-2022 Patient encounter procedure Cheryl Bansal PA-C Work Phone: [facility] Comment on above: Lower resp. tract in fection (Primary Dx); Acute otitis media of right ear with perforation Start: 2022 End: 2022 ambulatory LOU SIEGEL Facility:[facility] Start: 02-03-2022 End: 02-03-2022 Office outpatient visit 15 minutes Lou Siegel DO Work Phone: [facility] Start: 01-06-2022 Review Lou Aguilaro n DO Work Phone: [facility] Start: 01-06-2022 End: 01-06-2022 Office outpatient visit 15 minutes Lou Siegel DO Work Phone: [facility] Start: 01-01-2022 End: 01-01-[address] Lou Siegel Work Phone: [facility] Work Phone: Start: 01-01-2022 End: 01-01-[address] Lou Siegel Work Phone: [facility] Start: 12-23-2021 End: 12-23-2021 Office outpatient visit 5 minutes Lou Siegel DO Work Phone: [facility] Start: 12-12-2021 End: 12-12-2021 Phone Encounter Lou Siegel DO Work Phone: [facility] Start: 11-20-2021 Non-patient / Non-visit Dr. Denita Siegel Work Phone: [facility] Start: 10-28-2021 Non-patient / Non-visit Dr. Denita Siegel Work Phone: [facility] Start: 10-28-2021 End: 10-28-[address] Lou Siegel Work Phone: [facility]-Cardiovascular Services Start: 10-21-2021 End: 10-21-2021 Office outpatient visit 15 minutes Lou Siegel DO Work Phone: [facility] Start: 10-21-2021 Review Lou Alves n DO Work Phone: [facility] Start: 10-10-2021 Non-patient / Non-visit Dr. Denita Siegel Work Phone: [facility] Start: 10-10-2021 End: 10-10-[address] Lou Sie[facility] Start: 09-25-2021 End: 09-25-2021 Office outpatient visit 10 minutes Lou Siegel DO Work Phone: [facility] Start: 09-24-2021 End: 09-24-[address] Lou Siegel [facility] Start: 09-18-2021 End: 09-18-2021 Office outpatient visit 25 minutes Lou Siegel DO Work Phone: [facility] Start: 09-13-2021 End: 09-13-2021 Office outpatient visit 40 minutes Lou Siegel DO Work Phone: [facility] Start: 09-13-2021 End: 09-13-2021 Patient encounter procedure Jake Augustin CMA [facility]; [facility] Work Phone: Start: 09-13-2021 End: 09-13-2021 Annotation/Addendum Lou Siegel DO Work Phone: [facility] Start: 09-12-2021 End: 09-12-2021 Emergency department patient visit Dr. Lou Siegel Work Phone: [facility]-Emergency Department Start: 06-03-2021 End: 06-03-[address] Lou Siegel Work Phone: [facility] Start: 05-31-2021 End: 05-31-[address] Lou Siegel Work Phone: [facility] Start: 05-15-2021 End: 05-15-[address] Lou Siegel Work Phone: [facility] Start: 01-30-2021 End: 01-30-2021 Office outpatient visit 10 minutes Lou Christal DO Work Phone: [facility] Start: 12-13-2020 End: 12-13-2020 Office outpatient visit 5 minutes Lou Christal DO Work Phone: [facility] Start: 10-24-2020 End: 10-24-2020 Annotation/Addendum Lou Christal DO Work Phone: [facility] Start: 10-23-2020 End: 10-23-2020 Office outpatient visit 25 minutes Lou Christal DO Work Phone: [facility] Start: 10-19-2020 End: 10-19-2020 Office outpatient visit 5 minutes Lou Christal DO Work Phone: [facility] Start: 01-16-2020 End: 01-18-2020 Office outpatient visit 15 minutes Lou Siegel [facility] Start: 12-13-2019 End: 12-14-2019 Office outpatient visit 5 minutes Lou Siegel [facility] Start: 10-24-2019 End: 10-24-2019 Office outpatient visit 15 minutes Lou Seigel [facility] Start: 10-24-2019 Review Lou Siegel [facility] Start: 08-25-2019 End: 08-25-2019 Office outpatient visit 15 minutes Lou Siegel [facility] Start: 05-12-2019 End: 05-12-2019 Office outpatient visit 10 minutes Lou Siegel [facility] Start: 05-02-2019 End: 05-02-2019 Office outpatient visit 10 minutes Lou Siegel [facility] Start: 04-28-2019 End: 04-28-2019 Office outpatient visit 15 minutes Lou Siegel [facility] Start: 04-26-2019 End: 05-22-2019 Office outpatient visit 15 minutes Lou Siegel [facility] Start: 04-26-2019 End: 04-26-2019 Annotation/Addendum Lou Siegel [facility] Start: 04-26-2019 End: 04-26-2019 Phone Encounter Lou Siegel [facility] Start: 04-26-2019 End: 04-26-2019 Office outpatient visit 25 minutes Lou Siegel [facility] Start: 04-12-2019 End: 04-12-2019 Office outpatient visit 15 minutes Lou Siegel [facility] Start: 02-08-2019 End: 02-08-2019 Office outpatient visit 15 minutes Lou Siegel [facility] Start: 08-06-2018 End: 08-06-2018 Office outpatient visit 5 minutes Lou Siegel [facility] Start: 07-29-2018 End: 07-29-2018 Office outpatient visit 10 minutes Lou Siegel [facility] Start: 03-26-2017 End: 03-26-2017 Office outpatient visit 15 minutes Lou Siegel [facility] Start: 01-16-2017 End: 01-16-2017 Office outpatient visit 5 minutes Lou Sieegl [facility] Start: 01-09-2017 End: 01-09-2017 Office outpatient visit 15 minutes Lou Siegel [facility] Start: 01-02-2017 End: 01-02-2017 Office outpatient visit 40 minutes Lou Siegel [facility] Start: 01-02-2017 End: 01-02-2017 Patient encounter procedure Lou Christal DO Work Phone: [facility] Start: 03-14-2016 End: 03-14-2016 Office outpatient visit 15 minutes Lou Siegel [facility] Start: 02-01-2015 End: 02-01-2015 Phone Encounter Lou Siegel [facility] Start: 01-31-2015 End: 01-31-2015 Office outpatient visit 25 minutes Lou Siegel [facility] Start: 05-19-2014 End: 05-19-2014 Office outpatient visit 25 minutes Lou [facility] Start: 05-19-2014 End: 05-19-2014 Patient encounter procedure Lou Christal DO Work Phone: [facility] Start: 05-08-2014 End: 05-08-2014 Office outpatient visit 15 minutes Lou [facility]gel [facility] Start: 10-02-2010 End: 10-02-2010 Patient encounter Lou Siegel [facility] Start: 10-01-2010 End: 10-01-2010 Patient encounter Lou Siegel [facility] Start: 09-02-2010 End: 09-02-2010 Patient encounter Lou Siegel [facility] Start: 08-06-2010 End: 08-06-2010 Patient encounter Lou Siegel [facility] Start: 10-13-2008 End: 10-13-2008 Patient encounter Lou Siegel [facility] Start: 10-09-2008 End: 10-09-2008 Patient encounter Lou Siegel [facility] Start: 12-04-2006 End: 12-04-2006 Patient encounter Lou Siegel [facility] Start: 10-30-2006 End: 10-30-2006 Historical Summary Lou Siegel [facility] Patient encounter procedure Pat Brumfield RN [facility]; [facility] Work Phone: Patient encounter procedure Joy Gravius [facility]; [facility] Work Phone: Patient encounter procedure Heather Chamberlain RES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 [facility]; [facility] Work Phone: Patient encounter procedure Jake Jamisonford [facility]; [facility] Work Phone: Patient encounter procedure Jake Jamisonford [facility]; [facility] Work Phone: Patient encounter procedure Joy Martínez [facility]; [facility] Work Phone: Patient encounter procedure Joy Martínez [facility]; [facility] Work Phone: Patient encounter procedure Joy Martínez [facility]; [facility] Work Phone: Patient encounter procedure Alyssa Osuna LPN [facility]; [facility] Work Phone: Patient encounter procedure Jake Jamisonford [facility]; [facility] Work Phone: Patient encounter procedure Rosita Mansoniwilfredo [facility]; [facility] Work Phone: Patient encounter procedure Fredi Cuellar RES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 [facility]; [facility] Work Phone: Procedures Date Procedure Procedure Detail Performing Clinician Start: 01-02-2025 Measurement of occult blood in stool specimen using immunoassay Dr. J Luis Mcgill MD Work Phone: Start: 12-28-[address] J Luis Mcgill MD Work Phone: Start: 12-27-2024 CT angiography of chest with contrast Dr. J Luis Mcgill MD Work Phone: Start: 12-27-2024 Radiologic exam chest [address] J Luis Mcgill MD Work Phone: Start: 12-27-2024 D-dimer assay, quantitative Dr. J Luis Mcgill MD Work Phone: Comment on above: D-Dimer ELEVATED (>0.49): Additional alfreda dies and clinicalassessments are indicated to conclude diagnosis of:Deep Vein Thrombosis (DVT) or Pulmonary Embolism (PE) Start: 12-27-2024 SARS-CoV-2, Influenza & RSV (PCR) Dr. J Luis Mcgill MD Work Phone: Start: 12-07-2024 SARS-CoV-2, Influenza & RSV (PCR) Dr. J Luis Mcgill MD Work Phone: Start: 09-21-2024 Measurement of occult blood in stool specimen using immunoassay Dr. J Luis Mcgill MD Work Phone: Start: 08-16-[address] J Luis Mcgill MD Work Phone: Start: 08-16-2024 Total iron binding capacity measurement Dr. J Luis Mcgill MD Work Phone: Start: 08-10-2024 Vitamin D, 25-hydroxy measurement Dr. J Luis Mcgill MD Work Phone: Comment on above: Vitamin D StatusDeficiency: <20 ng/mL (5 0nmol/L)Insufficiency: 20-30 ng/mL (50-75 nmol/L)Sufficiency: 30-100 ng/mL (75-250 nmol/L)Toxicity: >100 ng/mL (>250 nmol/L) Start: 07-12-2024 Coagulation time, activated Dr. J Luis Mcgill MD Work Phone: Start: 07-07-[address] J Luis Mcgill MD Work Phone: Comment on above: TEST RESULTS LIMITSPlatelet Function Aleja t Collagen/Epinephrine 85 80-184 seconds Collagen/ADP 72 56-102 seconds Platelet Function Interp See Below Normal Platelet Function TESTING PERFORMED AT THE [facility]. ORIGINAL REPORT ON FILE IN LAB CONTAINS ADDITIONAL TEST SITE INFORMATION. Start: 06-15-2024 Plain x-ray of elbow Dr. J Luis Mcgill MD Work Phone: Start: 05-30-2024 MRI of cervical spine Dr. J Luis Mcgill MD Work Phone: Start: 05-23-2024 CT angiography of head and neck Dr. J Luis Mcgill MD Work Phone: Start: 05-20-2024 X-ray of chest, PA and lateral views Dr. J Luis Mcgill MD Work Phone: Start: 05-20-2024 Evaluation of diagnostic study results Dr. J Luis Mcgill MD Work Phone: Start: 05-09-2024 SARS-CoV-2, Influenza & RSV (PCR) Dr. J Luis Mcgill MD Work Phone: Start: 04-25-2024 MRI of brain without contrast Dr. J Luis Mcgill MD Work Phone: Start: 04-22-2024 Evaluation of diagnostic study results Dr. J Luis Mcgill MD Work Phone: Start: 03-08-2024 Cardiovascular stress test using pharmacologic stress agent Dr. J Luis Mcgill MD Work Phone: Start: 07-16-[address] J Luis Mcgill Work Phone: Start: 07-15-2023 Plain chest X-ray Dr. J Luis Mcgill Work Phone: Start: 07-08-2023 Diagnostic radiography of abdomen, decubitus and erect Dr. J Luis Mcgill Work Phone: Start: 07-07-2023 Cardiovascular stress test using pharmacologic stress agent Dr. J Luis Mcgill Work Phone: Start: 07-06-2023 CT angiography of chest with contrast Start: 06-19-2023 Urine culture Start: 06-19-2023 CT angiography of chest with contrast Start: 06-19-2023 Plain chest X-ray Start: 06-11-2023 SARS-CoV-2, Influenza & RSV (PCR) Start: 12-03-2022 End: 12-03-2022 Re-Evaluation - PT (1) Procedure Note: See Note; NOTES: [facility] [place] [address] / REEVALUATION / MEDICARE RECERTIFICATION PHYSICAL THERAPY MR#: [id number] Acct: [id number] Name: JOHNNIE QUIJANO Rep #: [id number] : 1940 82 From: Kelton Villarreal DPT, OCS, CSCS Referring Dr.: Dr. Lou Siegel DO Status:REG RCR Insurance: [employer] INSURANCE Re-Evaluation Intro: Dr. Lou Siegel, , It has been my pleasure to treat JOHNNIE QUIJANO over the last 5 visits for L arm tennis elbow. Please see the progress note below for an update on the physical therapy plan of care! Subjective Subjective: Getting better. Less pain at night, able to sleep at night. Is Ok in morning. pain during day to 5/10 for short durations. Got brace and it helps. Objective Objective/Function: Less tender in R UE, brace appropriate. subjectively better. Plan Plan Plan: Appropriate to continue POC of US, strengtching massage and eccentric progression. Monitor neck ROm for possible effects here if progress stagnates. 3x/week for 2 more weeks. Balance/Gait/Functional tests Balance/Special Test Scores Quick DASH Score: 15.9075 Goals Goals Goal 1:: Sleep without waking at night due to pain Goal Time Frame: 4-6 Weeks Goal Progress: Progressing Goal 2:: I management of pain with bracing, activity mod, and stretch, strength ex. Goal Time Frame: 4-6 Weeks Goal Progress: Progressing Goal 3:: Pt feel painfree at rest and 3/10 at worst adn 75% improved overall. Goal Time Frame: 4-6 Weeks Goal Progress: 40% Goal 4:: qucikdash score 14 or less Goal Time Frame: 4-6 Weeks Goal Progress: Progressing Anticipated Interventions Anticipated Interventions Patient/Client Instruction: Educate patient on: Condition and Plan of Care For the Purpose of:: To decrease pain, To improve nutrient delivery to tissue, To improve muscle performance and motor function, To increase tolerance to activity/condition/positi on and To prevent re-injury Therapeutic Exercise to Include: Strength training, Flexibilty training, Passive ROM and Active ROM For the Purpose of:: To decrease pain, To improve nutrient delivery to tissue, To improve muscle performance and motor function, To increase tolerance to activity/condition/positi on and To improve ability of physical actions for home/community/work/leisu re Manual Therapy Techniques to Include: Soft tissue mobilization For the Purpose of:: To decrease pain, To decrease swelling/inflammation, To increase ROM and To improve nutrient delivery to tissue Prosthetic, Protective Equipment: Braces Comment: wrist For the Purpose of:: To decrease pain and To decrease swelling/inflammation Cryotherapy (ice pack, ice massage): Yes Ultrasound (thermal/non thermal): Yes (nonthermal) For the Purpose of:: To decrease pain, To decrease swelling/inflammation and To improve nutrient delivery to tissue Re-Evaluation Ending Re-evaluation ending: Please do not hesitate to contact me at [phone] by phone or if you have questions or concerns regarding this new plan of care! Sincerely, Kelton Villarreal, DPT, OCS, CSCS <Electronically signed by Kelton Villarreal DPT, OCS, CSCS> 12/03/22 8015 CC: Dr. Lou Siegel, DO; Lou Siegel DO EB Signed For Medicare only, by signing this I certify the plan of care. ___ Physicians Signature Date Lou Siegel DO Work Phone: Start: 11-14-2022 End: 11-14-2022 Inital Evaluation (1) - PT Procedure Note: See Note; NOTES: [facility] [address] [place] [address] / REHABILITATION SERVICES INITIAL EVALUATION MR#: [id number] Acct: [id number] Name: JOHNNIE QUIJANO Rep #: [id number] : 1940 82 From: Kelton Villarreal DPT, OCS, CSCS Referring Dr.: Dr. Lou Siegel DO Status: REG RCR Insurance: [facility] MEDICARE S[employer]IOR [employer] SELF PAY INSURANCE Patient's Visit Information Visit Information Visit Information: JOHNNIE QUIJANO is a 82 year old M referred to Physical Therapy by Dr. Lou Siegel DO with a diagnosis of L arm tennis elbow. Date of Evaluation: 11/14/22 Physical Therapist: Kelton Villarreal DPT, OCS, CSCS Visit Plan Frequency: 3x /Week Duration: 2-4 Weeks Plan: 3x/week for 2-4 weeks for 1. ensure stretching wrist ext group, activity modifcaiton and bracing at home(pt to get wrist brace) 2.progress to ecc strength wrist ext 3. treat with nonthermal US to L lat epi and STM/ice massage/stretching Subjective Subjective: L arm tennis elbow. Hurt for two weeks in l lateral elbow, was OK prior, No reason for its return. Pain is 0-7/10 and wakes him up at night. Normally hurts at rest. doctor said tennis elbow, has brace from [facility] [employer]. wrapping elbow which helps a bit for last 24 hrs. Wakes him up at night in middle of night and has to change position and needs to stretch it. Spends day doing housework. They have cleaning girl but he does dishes. Not an outdoor worker. Hobbies: computer and TV. He is R handed. Not employed. No regular exercise. Pain Left elbow lateral.: Pain Intensity (Out of 10): 3 Pain Intensity Range: 0 and 7 Objective Objective: L brace on elbow and donned and doffed I. Tender L lat epicondyle elbow min to mod and into extensor group mildly. Neck AROM max limited to 24 ext, 65 rotation B without pain. scap aROM WFL shoulder and elbow and wrist AROM WFL and without pain. Strength L wrist extension 4 and painful, R not painfula nd 4 other wrist and elbow 4 B, shoulder 4- B. No pain. reflexes 1/3 bi and tri Sensation UE WNL to gross light touch. + L tennis elbow active contraction and passive wtretching tests. No other tenderness at elbow joint sadi. Balance/Special Test Scores Quick DASH Score: 15.9075 Goals Goal 1:: Sleep without waking at night due to pain Goal Time Frame: 4-6 Weeks Goal 2:: I management of pain with bracing, activity mod, and stretch, strength ex. Goal Time Frame: 4-6 Weeks Goal 3:: Pt feel painfree at rest and 3/10 at worst adn 75% improved overall. Goal Time Frame: 4-6 Weeks Goal 4:: qucikdash score 14 or less Goal Time Frame: 4-6 Weeks Rehabilitation Potential Physical Therapy Diagnosis: L arm lat epicondylitis Rehabilitation Potential: Good Anticipated Interventions Patient/Client Instruction: Educate patient on: Condition and Plan of Care For the Purpose of:: To decrease pain, To improve nutrient delivery to tissue, To improve muscle performance and motor function, To increase tolerance to activity/condition/positi on and To prevent re-injury Therapeutic Exercise to Include: Strength training, Flexibilty training, Passive ROM and Active ROM For the Purpose of:: To decrease pain, To improve nutrient delivery to tissue, To improve muscle performance and motor function, To increase tolerance to activity/condition/positi on and To improve ability of physical actions for home/community/work/leisu re Manual Therapy Techniques to Include: Soft tissue mobilization For the Purpose of:: To decrease pain, To decrease swelling/inflammation, To increase ROM and To improve nutrient delivery to tissue Prosthetic, Protective Equipment: Braces Comment: wrist For the Purpose of:: To decrease pain and To decrease swelling/inflammation Cryotherapy (ice pack, ice massage): Yes Ultrasound (thermal/non thermal): Yes (nonthermal) For the Purpose of:: To decrease pain, To decrease swelling/inflammation and To improve nutrient delivery to tissue Text: Thank you for the opportunity to evaluate your patient. For Medicare and Medicare HMO plans, please review the plan of care and approve it. It will need to be FAXED BACK to us at [phone] for Medicare purposes. For Medicare only, by signing this I certify the plan of care. Please let me know if there are questions or concerns regarding this plan of care. Physician Signature: Date: _ <Electronically signed by Kelton Villarreal DPT, OCS, CSCS> 11/14/22 1442 CC: Dr. Lou Siegel DO EBG Signed Lou Siegel DO Work Phone: Start: 05-29-2022 End: 05-29-2022 Chest PA and Lateral Procedure Note: See Note; NOTES: [facility] [address] [place] [address] Chest PA and Lateral MR#: [id number] Acct: [id number] Name: JOHNNIE QUIJANO Rep #: [id number] : 1940 M 82 From: Ahbay Golden MD PCP: Dr. Lou Siegel DO Status: DEP AMB Study: Chest PA and Lateral Date of Exam: 05/29/22 Exam# [id number] Ordering Dr: Lou Siegel DO STUDY: X-RAY CHEST REASON FOR EXAM: Male, 82 years old. History of COPD. Shortness of breath. TECHNIQUE: Frontal and lateral views of the chest. COMPARISON: March 25, 2022. FINDINGS: Stable hyperinflation. Patchy opacity at the left base slightly increased since the prior study, which may represent atelectasis or early/developing pneumonia. Follow-up chest imaging to resolution recommended.. There is no demonstrated pleural abnormality. Stable cardiomegaly. Normal mediastinum and kailey. Normal visualized pulmonary arteries. Aortic tortuosity with calcification unchanged. Diffuse moderate thoracic spondylosis unchanged. Normal visualized ribs, clavicles, and shoulders. There is no demonstrated abnormality of the visualized soft tissue structures of the upper abdomen. RAD/Chest PA and Lateral IMPRESSION: Stable cardiomegaly with hyperinflation. Slight increased patchy opacity of the left base as described above. Follow-up chest imaging to resolution recommended. Electronically Signed: Abhay Golden, at 16:31 EST , CC: Dr. Lou Siegel DO [employer] Service Supervisor: Signed Lou Siegel DO Work Phone: Start: 05-29-2022 Plain chest X-ray Dr. Lou Siegel Work Phone: Start: 03-25-2022 Plain chest X-ray Dr. Lou Siegel Work Phone: Start: 03-25-2022 End: 03-25-2022 Chest PA and Lateral Procedure Note: See Note; NOTES: [facility] Imaging Services [address] [place] [address] Chest PA and Lateral MR#: [id number] Acct: [id number] Name: JOHNNIE QUIJANO Rep #: [id number] : 1940 M 82 From: Abhay Golden MD PCP: Dr. Lou Siegel, Status: REG CLI Study: Chest PA and Lateral Date of Exam: 03/25/22 Exam# [id number] Ordering Dr: Raven Villarreal [employer]- C STUDY: X-RAY CHEST REASON FOR EXAM: Male, 82 years old. Cough. TECHNIQUE: Frontal and lateral views of the chest. COMPARISON: May 05, 2014. FINDINGS: Mild hyperinflation. Patchy linear lingular scarring unchanged. There is no demonstrated pleural abnormality. Stable cardiomegaly with aortic tortuosity. Normal mediastinum and kailey. Normal visualized pulmonary arteries. Diffuse mild thoracic spondylosis unchanged. Normal visualized ribs, clavicles, and shoulders. There is no demonstrated abnormality of the visualized soft tissue structures of the upper abdomen. RAD/Chest PA and Lateral IMPRESSION: Stable cardiomegaly, mild hyperinflation and patchy linear lingular scarring. No acute or active cardiopulmonary disease. Electronically Signed: Abhay Golden, at 12:01 EST , CC: Raven Villarreal [employer]; Dr. Lou Siegel DO [employer] Service Supervisor: Signed Raven Villarreal [facility] Work Phone: Start: 01-01-2022 End: 01-01-2022 Brain without Contrast Procedure Note: See Note; NOTES: [facility] Imaging Services [address] [place] [address] Brain without Contrast MR#: [id number] Acct: [id number] Name: JOHNNIE QUIJANO Rep #: [id number] : 1940 M 81 From: Wilmer Urrutia PCP: Dr. Lou Siegel DO Status: REG CLI Study: Brain without Contrast Date of Exam: 01/01/22 Exam# [id number] Ordering Dr: Lou Siegel DO EXAM: MR HEAD WITHOUT INTRAVENOUS CONTRAST CLINICAL INDICATION: CVA TECHNIQUE: Multiplanar and multisequence MR images of the brain were obtained without intravenous contrast. This report was created using [employer]km[employer] report generation technology. COMPARISON: CT 09/13/2021 FINDINGS: BRAIN AND EXTRA-AXIAL SPACES: Increased FLAIR regions in the brain may signify early microvascular ischemic changes, a demyelinating process, vasculitis, or sequela related to migraines. 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 No intra- or extra-axial hemorrhage. No intracranial mass or mass effect. Posterior fossa structures are unremarkable. Ventricles are appropriate for age. No hydrocephalus. Basal cisterns are patent. SELLA: Unremarkable. Normal sella turcica, pituitary gland, infundibular stalk, optic chiasm and hypothalamus. AUDITORY SYSTEM: Unremarkable. The internal auditory canals are patent. BONES/JOINTS: Unremarkable. No discrete lytic or blastic abnormalities. SINUSES: There is sinus disease. MASTOID AIR CELLS: There is mastoid sinus disease. ORBITS: Unremarkable as visualized. Both globes, extraocular muscles, optic nerves and retrobulbar fat appear unremarkable. VASCULATURE: Unremarkable as visualized. Normal flow voids in the major intracranial circulation. MRI/Brain without Contrast IMPRESSION: 1. There is sinus disease. 2. Mild chronic microvascular ischemic changes. Electronically Signed: Wilmer Quiroga MD at 15:46 EDT Reading Location ID and State: [facility] / [place] , Service support , CC: Dr. Lou Siegel DO [employer] Service Supervisor: Signed Lou Siegel DO Work Phone: Start: 01-01-2022 MRI of brain without contrast Dr. Lou Siegel Work Phone: Start: 10-28-2021 End: 10-28-2021 Carotid Duplex Ultrasound Procedure Note: See Note; NOTES: [facility] Cardiovascular Services [facility] [facility] [place] [address] Carotid Duplex Ultrasound 10/28/21 1019 MR#: [id number] Acct: [id number] Name: JOHNNIE QUIJANO Rep #: [id number] : 1940 81 From: Kelton Blakely MD Attending Dr: Dr. Lou Siegel DO Status: R EG CLI Ordering Dr: Lou Siegel DO Date: 10/28/21 Location: [facility] Sex: M C Admitted: Reason For Study: CVA Rt. Velocities/BP Lt. Velocities/BP Prox CCA 95.6/16.0 cm/sec. Prox CCA 114.6/24.9 cm/sec. Mid CCA 83.8/14.7 cm/sec. Mid CCA 82.7/16.3 cm/sec. Dist CCA 73.4/10.8 cm/sec. Dist CCA 58.1/15.1 cm/sec. Prox ICA 80.2/11.4 cm/sec. Prox ICA 143.0/33.4 cm/sec. Mid ICA 80.2/20.0 cm/sec. Mid ICA 144.8/26.1 cm/sec. Dist ICA 87.6/21.2 cm/sec. Dist ICA 78.1/19.8 cm/sec. Rt. ICA/CCA = 1.0. Lt. ICA/CCA = 1.8. Prox ECA 126.6/11.5 cm/sec. Prox ECA 169.6/11.6 cm/sec. Rt. Vert. 66.7/12.7 cm/sec. Lt. Vert. 36.2/6.9 cm/sec. Right Extracranial There is homogeneous, smooth atherosclerotic plaque noted in the right common carotid artery. There is heterogeneous, irregular atherosclerotic plaque noted in the right internal carotid artery. There is heterogeneous, irregular atherosclerotic plaque noted in the right external carotid artery. Antegrade flow is noted in the right vertebral artery. Left Extracranial There is homogeneous, smooth atherosclerotic plaque noted in the left common carotid artery. There is heterogeneous, irregular atherosclerotic plaque noted in the left internal carotid artery. There is homogeneous, smooth atherosclerotic plaque noted in the left external carotid artery. Antegrade flow is noted in the left vertebral artery. Procedure Carotid Duplex [address]. This is a Carotid Duplex examination using B-mode, color flow and specral Doppler. The exam was diagnostic. Exam performed in department. VL/Carotid Duplex Ultrasound Interpretation Summary Mild (<50%) stenosis right extracranial internal carotid. Moderate (50-69%) stenosis left extracranial internal carotid. The Right vertebral is patent and antegrade. The Left vertebral is patent and antegrade. _ Ordering Physician: Lou Siegel Performed By: Obi Mayers RVT 10/28/21 1419 Date Kelton Blakely MD CC: Dr. Lou Siegel DO Date Dictated: 10/28/21 1019 Date Transcribed: 10/28/21 141 [employer] Supervisor: Signed Lou Siegel DO Work Phone: Start: 10-10-2021 End: 10-10-2021 Echo Complete Comments: See Note; NOTES: [facility] Cardiovascular Services [address] [address] Echo Complete 10/10/21810 MR#: [id number] Acct: [id number] Name: JOHNNIE QUIJANO Rep #: [id number] : 1940 81 From: Darryn Bowens MD Attending Dr: Dr. Lou Siegel DO Status: R EG CLI Ordering Dr: Lou Siegel DO Date: 10/10/21 Location: [facility] Sex: M C Admitted: Reason For Study: CVA Procedure This was a 2D Doppler, Color Flow transthoracic echocardiogram. Exam performed in department. Left Ventricle Normal LV size. Left ventricular systolic function is normal. The estimated ejection fraction is 60 %. No regional wall motion abnormalities noted. Right Ventricle Normal RV size. Normal systolic function. Atria Normal left atrium. Normal right atrium. Bubble contrast study negative for right to left interatrial shunt. Mitral Valve Normal mitral valve. Tricuspid Valve Normal tricuspid valve. Aortic Valve Normal aortic valve. Trisinus/trileaflet aortic valve. Pulmonic Valve Normal pulmonic valve. Great Vessels Normal aortic root. The pulmonary artery is normal size. Normal inferior vena cava. Pericardium/Pleural No pericardial effusion. Medication 22 gauge I.V. with prn adaptor inserted into right arm. Performed a rapid injection of agitated mix of 9 cc saline and 1cc air to assess for atrial septal defect. MMode/2D Measurements Calculations LVIDd: 3.1 cm IVSd: 0.93 cm Ao root diam: 2.9 cm LVIDs: 1.7 cm LVPWd: 1.0 cm RVDd: 2.5 cm FS: 47.5 % LAV(MOD-bp): 40.6 ml LVAd ap4: 20.3 cm2 SV(MOD-sp4): 29.8 ml LAV(MOD-bp) Indexed: 21.6 ml/m2 LVLd ap4: 7.7 cm LAV(MOD-sp2): 56.7 ml EDV(MOD-sp4): 45.3 ml LAV(MOD-sp4): 26.1 ml EDV(sp4-el): 45.5 ml LVAs ap4: 10.6 cm2 LVLs ap4: 6.6 cm ESV(MOD-sp4): 15.5 ml ESV(sp4-el): 14.3 ml EF(MOD-sp4): 65.8 % EF(sp4-el): 68.5 % SV(sp4-el): 31.1 ml LA A4 area: 12.9 cm2 LA dimension(2D): 3.7 cm RA A4 area: 12.7 cm2 Time Measurements MV dec time: 0.24 sec Doppler Measurements Calculations MV E max marino: 71.1 cm/sec Lat Peak E' Marino: 9.2 cm/sec Med Peak E' Marino: 6.3 cm/sec MV A max marino: 80.8 cm/sec E/E' lat: 7.7 E/E' med: 11.4 MV E/A: 0.88 MV V2 max: 85.5 cm/sec MV dec slope: 305.8 cm/sec2 Ao V2 max: 182.8 cm/sec MV max P.9 mmHg Ao max P.4 mmHg MV V2 mean: 49.8 cm/sec Ao V2 mean: 125.7 cm/sec MV mean P.1 mmHg Ao mean P.2 mmHg MV V2 VTI: 32.5 cm Ao V2 VTI: 44.2 cm LV V1 max: 113.3 cm/sec PA V2 max: 102.9 cm/sec LV V1 max P.2 mmHg LV V1 mean P.1 mmHg LV V1 mean: 83.8 cm/sec LV V1 VTI: 28.3 cm ECHO/Echo Complete Interpretation Summary Normal LV size. Left ventricular systolic function is normal. The estimated ejection fraction is 60 %. Bubble contrast study negative for right to left interatrial shunt. _ Ordering Physician: Lou Siegel Referring Physician: Lou Siegel Performed By: Lucy Wolf RCS 10/10/212 Date Darryn Bowens MD CC: Dr. Lou Siegel DO; Lou Siegel DO Date Dictated: 10/10/21810 Date Transcribed: 10/10/211451 [employer] Service Supervisor: Signed Lou Siegel DO Work Phone: Start: 09-13-2021 End: 09-13-2021 Brain/Head without Contrast Comments: See Note; NOTES: [facility] Imaging Services [address] [place] [address] Brain/Head without Contrast MR#: [id number] Acct: [id number] Name: JOHNNIE QUIJANO Rep #: [id number] : 1940 M 81 From: Chad Pacheco MD PCP: Dr. Lou Siegel DO Status: REG CLI Study: Brain/Head without Contrast Date of Exam: 08/22 07/12 Exam# [id number] Ordering Dr: Lou Siegel DO STUDY: CT BRAIN WITHOUT CONTRAST REASON FOR EXAM: Male, 81 years old. HEAD INJURY RADIATION DOSAGE (If Supplied By Facility): CTDIvol = ( 47.06 ) mGy, DLP = ( 890.33 ) mGycm TECHNIQUE: Transaxial CT imaging of the brain was performed without administration of intravenous contrast material. Individualized dose optimization techniques were used for this CT. COMPARISON: No relevant priors. FINDINGS: There is no intra-/extra-axial fluid collection, mass effect, or midline shift. 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 The hernandez/white matter junction is preserved. Hypoattenuation of periventricular and subcortical white matter suggestive of chronic small vessel ischemic disease. Mild diffuse parenchymal volume loss is noted. There is vascular calcification. The basal cisterns are patent. The calvarium is intact. Evidence of pansinusitis is noted. Opacification of the bilateral mastoid air cells is seen, more severe on the right. There is also near complete opacification of the right middle air cavity. CT/Brain/Head without Contrast IMPRESSION: No acute intracranial injury. Chronic nonemergent findings as above. Electronically Signed: Chad Pacheco MD at 13:50 EDT Reading Location ID and State: [facility] / [place] Tel , Service support , CC: Dr. Lou Siegel DO T[employer] Service Supervisor: Signed Lou Siegel DO Work Phone: Start: 09-13-2021 CT of head without contrast Dr. Lou Siegel Work Phone: Start: 09-12-2021 End: 09-13-2021 12 Lead EKG Comments: See Note; NOTES: [facility] Cardiovascular Services [address] [place] [address] 12 Lead EKG 09/12/21 0859 MR#: [id number] Acct: [id number] Name: JOHNNIE QUIJANO Rep #: [id number] : 1940 81 From: Chapincito Montanez MD Attending Dr: Status: DEP ER Ordering Dr: Pablo Patrick MD Date: 09/12/21 Location: ED Sex: M C Admitted: Test Reason : SYNCOPE Blood Pressure : / mmHG Vent. Rate : 073 BPM Atrial Rate : 073 BPM P-R Int : 158 ms QRS Dur : 082 ms QT Int : 368 ms P-R-T Axes : 071 040 065 degrees QTc Int : 405 ms Normal sinus rhythm Normal ECG Confirmed by ALEC MUNOZ, CHAPINCITO ([id number]), editor department LEONARDO REGALADO ([id number]) on 09/13/2021 11:17:16 AM Referred By: YE Confirmed By:CHAPINCITO MONTANEZ MD 09/13/21 1117 Date Chapincito Montanez MD CC: Dr. Lou Siegel DO; Dr. Pablo Patrick MD Signed Lou Siegel DO Work Phone: Start: 09-12-2021 End: 09-12-2021 Emergency Department Summary Comments: See Note; NOTES: [facility] Medical Records Department [address] [place] [address] Emergency Department Summary 09/12/21 MR#: [id number] Acct: [id number] Name: JOHNNIE QUIJANO Rep #: [id number] : 1940 81 From: Pablo Patrick MD PCP: Dr. Lou Siegel DO Status:REG ER Location: ED HPI History of Present Illness Chief Complaint: Syncope Detail of Chief Complaint: Syncope and blunt head trauma Informant: patient and spouse/S.O. Onset/Context/Timing Onset: Days (Sickle episode and blunt head trauma occurred on Thursday while eating a sandwich) Context: Sudden Onset Timing: Intermittent and Lasts (30 seconds per ) Quality: Patient fell over Location: Eating a sandwich at home Current Severity: Gone Maximum Severity: Severe Worsened by: Nothing Relieved by: Nothing Associated Symptoms Associated Symptoms: No prodrome Narrative Narrative: Patient is a 81-year-old male with history of asthma who was sent in because of syncopal sewed and hitting his head. He states he was sitting eating a sandwich. He passed out. He had no prodrome. He denies all symptoms. He apparently hit the left side of his head on a wooden chair. states he was out for 30 seconds. There was no seizure activity. There was no postictal state. There was no incontinence. He hurts where he has evidence of a small contusion. He denies headache. He denies visual, ocular auditory symptoms. He denies neck pain. He denies paresthesia, anesthesia or motor weakness. He denies cardiac or respiratory symptoms. He denies black or maroon-colored stool. He is not on an anticoagulant. Prior similar symptoms: No Recent Illness/Hospitalization: No PFSH PFS Medical History (Updated 09/12/21 @ 10:[address] Pablo Partick MD) Asthma Cervical radiculopathy Cervical strain Cubital tunnel syndrome on left Home Medications albuterol sulfate 90 mcg/actuation aerosol inhaler (Ventolin HFA) 1 - 2 puff inhalation Q4H PRN PRN Wheezing ##1 05/02/14 [Rx Last Taken Unknown] montelukast 10 mg tablet (Singulair) 10 mg PO DAILY 05/02/14 [History Last Taken Unknown] fluticasone 500 mcg-salmeterol 50 mcg/dose blistr powdr for inhalation (Advair Diskus) 1 puff inhalation BID 05/05/14 [History Last Taken Unknown] Allergy/AdvReac Type Severity Reaction Status Date / Time aspirin Allergy Shortness Verified 09/12/21 08:42 of breath ibuprofen Allergy Other Verified 09/12/21 08:42 Family History Sister Cancer Social History (Updated 09/12/21 @ 08:[address] Pablo Patrick MD) household members: spouse Smoking Status: Never smoker alcohol intake: never substance use type: does not use ROS ROS ED Constitutional Constitutional ED: Denies chills, fever(s), subjective, sweats or weight loss Eyes Eyes: Denies blurry vision, change in vision or diplopia ENT ENT ED: Reports other Details: He has a hearing aid on the left. He denies decreased hearing from baseline. He denies tinnitus. ; Denies ear pain, rhinorrhea or sore throat Cardiovascular Cardiovascular: Denies chest pain, palpitations or racing heartbeat Respiratory/Chest Respiratory/Chest: Denies cough, dyspnea or dyspnea on exertion Gastrointestinal Gastrointestinal: Denies abdominal pain, diarrhea, melena, nausea or vomiting Genitourinary Genitourinary ED: Denies dysuria or hematuria Musculoskeletal Musculoskeletal: Denies arthralgias, back pain, myalgias or neck pain Integumentary Reports other Details: Small bruise left frontal area. ; Denies abscess, Abrasions or rash Neurologic Neurologic: Denies headache(s), paresthesias or weakness EXAM Physical Exam Narrative Exam Narrative: Patient appears in no distress. He is sitting comfortably on the examination bed. Const Vital Signs: 09/12/21 08:39 09/12/21 09:01 Temperature 98 F Temperature Source Temporal Pulse Rate 78 Respiratory Rate 16 Respiratory Effort Normal Non-Labored Respiratory Pattern Normal Blood Pressure 177/88 H Blood Pressure Mean 117 Pulse Ox 96 Oxygen Delivery Method Room Air Positive well nourished and well developed General Appearance ED: well developed and NAD; Negative for cyanotic, diaphoretic or pallor HEENT Reports moist mucous membranes HEENT Narrative: Patient has a small bruise left frontal area. There is no palp depression. There is no clinical findings of basal skull fracture. There is no septal deviation hematoma noted. There is no evidence of dental trauma. trauma and tenderness Eyes PERRL and EOMs intact bilaterally Eyes Narrative: There is no subconjunctival hemorrhage noted. There is no APD. Patient has peripheral cataracts. Cup-to-disc ratio normal. There is no papilledema. General Eye ED: Negative for pale conjunctiva or scleral icterus Neck no lymphadenopathy, supple and no JVD Neck Narrative: There is no midline cervical tenderness. He has full active range of motion. C-spine was cleared per Nexus criteria. Chest Wall inspection of chest normal and palpation of chest normal Resp normal respiratory effort and clear to auscultation bilaterally Cardio regular rate, regular rhythm, S1 normal heart sound, S2 normal heart sound and no murmurs GI normal to inspection, nondistended, normoactive bowel sounds, non-tender and non-distended GI Narrative: There is no abdominal bruit. There is no palpable pulsatile mass. Back/Spine no CVA tenderness Cervical Spine: Negative for cervical spine tenderness Extremity normal to inspection General Extremety ED: Negative for edema or tenderness General Extremity: Negative for edema Neuro oriented x3, CN's II-XII intact bilaterally and no sensory deficits noted Neuro Narrative: GCS is 15. There is no clonus or Babinski sign. DTRs are 2+ at the bicep, tricep, patella and ankle. Reflexes are symmetric. Sensorium / Orientation: alert Motor Exam: strength 5/5 throughout Psych mental status grossly normal Psych Narrative: Thought content is normal. Skin General Skin Exam: Negative for jaundice or pallor Rashes: No rashes noted Trauma: Negative for abrasion MDM MDM MDM Narrative Medical decision making narrative: Since patient had syncopal spell with no prodrome will obtain EKG and place a monitor to determine if there is any ectopy or any findings to suggest a preexcitation syndrome. Also to evaluate for QT prolongation. Doubt cardiac ischemia and doubt pulmonary embolus. CBC was obtained to assess H H and basic metabolic panel to assess electrolytes as well as BUN to creatinine ratio.. Per the [place] CT head rule imaging of the head does not indicated. Per the Nexus study imaging the neck is not indicated. Lab Data Attestation: I reviewed the patient's lab results. Lab results narrative: CBC and basic metabolic panel are essentially unremarkable. Glucose is 141. Troponin is normal with event occurring greater than 72 hours ago. 2-hour troponin was not obtained nor is it indicated. Labs: Laboratory Results - last 24 hr 09/12/21 09/12/21 08:57 08:57 WBC 9.9 RBC 5.18 Hgb 14.8 Hct 45.9 MCV 88.6 MCH 28.6 MCHC 32.2 RDW Std Deviation 42.5 RDW Coeff of Heriberto 13.1 Plt Count 310 MPV 9.6 Immature Gran % (Auto) 0.300 Neut % (Auto) 75.6 H Lymph % (Auto) 12.3 L Hitchcock % (Auto) 8.9 Eos % (Auto) 2.4 Baso % (Auto) 0.5 Absolute Neuts (auto) 7.5 Absolute Lymphs (auto) 1.22 Nucleated RBC % 0 Sodium 138 Potassium 3.5 Chloride 106 Carbon Dioxide 24.0 Anion Gap 8 BUN 11 Creatinine 0.89 Estim Creat Clear Calc 60.84 Est GFR (MDRD) Af Amer 104 Est GFR (MDRD) Non-Af 86 BUN/Creatinine Ratio 12.3 Glucose 141 H Calcium 9.1 Troponin I High Sens 8 EKG Initial EKG: Attestation: I personally reviewed and interpreted this EKG as follows: Interpretation: Sinus Rhythm (Ventricular rate is 73. EKG is normal. RI interval is 158 ms. QRS duration 82 ms. QT T duration 3 and 68 ms. [place] is normal. The EKG is unchanged from May 05, 2014.) Treatment and Re-Evaluation Narrative: Patient was reassessed at 1011. He was informed of the results. He was informed to follow-up with Dr. Darryn Bowens and Dr. Day his doctor. Discharge Plan Triage Chief Complaint: Syncope ED Provider: Pablo Patrick Dx/Rx/DC Orders Clinical Impression: Syncope and collapse, Contusion of left temporofrontal scalp, BP (high blood pressure) Instructions: ED Scalp Contusion, ED Hypertension, To Be Confirmed, ED Fainting, Uncertain Cause Prescriptions: No Action montelukast [Singulair] 10 MG tablet 10 mg PO DAILY Label Comments: lungs albuterol sulfate [Ventolin HFA] 1 INHALER inhaler 1 - 2 puff inhalation Q4H PRN PRN (Reason: Wheezing) Qty: 1 0RF Label Comments: lungs, shortness of breath fluticasone propion-salmeterol [Advair Diskus] 1 PUFF inhaler 1 puff inhalation BID Label Comments: lungs Primary Care Provider: Lou Siegel Referrals: Darryn Bowens MD [STAFF PHYSICIAN] - 3-5 Days Lou Siegel DO [Primary Care Provider] - 5-7 Days Activity Restrictions/Additional Instructions: 1. Your blood pressure was elevated in the department. Since you do not have a history of high blood pressure and have no symptoms or findings you will need to follow-up with Dr. Day for repeat blood pressure assessment. 2. Contact Dr. Bowens's office for evaluation of your syncope. Disposition Disposition: Home, Self Care What to do if you have Problems For any increased pain, shortness of breath, bleeding, nausea or vomiting, chest pain, or any unexpected problems, contact your Primary Care Provider. Call [facility] ([phone]) or report to the closest Emergency Room. Call 911 if necessary. 09/12/21 1019 <Electronically signed by Pablo Patrick MD> Cosigner Signature (if applicable): CC: Dr. Lou Siegel DO Signed Lou Siegel DO Work Phone: Start: 06-03-2021 End: 06-03-2021 Orthopedic Visit Report Comments: See Note; NOTES: [facility] [address] [place] [address] [address] [place] [address] OFFICE VISIT Date of Service: 06/03/21 MR#: [id number] Acct: [id number] Name: JOHNNIE QUIJANO Rep #: [id number] : 1940 Provider: Dr. David bowling DO Age/Sex: 81/M Location: [facility] Status: Signed Intake Intake Visit Reasons: CERVICAL SPINE Chief Complaint: cervical pain Allergies aspirin Allergy (Verified 06/17/19 10:54) Shortness of breath ibuprofen Allergy (Verified 06/17/19 10:54) Other [facility] Medical History Cervical radiculopathy Cervical strain Cubital tunnel syndrome on left Family History Sister Cancer Social History Smoking Status: Never smoker HPI CERVICAL SPINE Details: Parts of this documentation were recorded by a scribe, this documentation accurately reflects the service provided and the decisions made by me, Dr. David Duran, 06/03/21 1109. JOHNNIE QUIJANO is a 81 year old M here today for F/U on the cervical spine after having MRI. He states that he continues to have the left arm pain. Denies any changes in health hx or medications. Mr. Quijano returns for follow-up. I reviewed his MRI scan. He tells me that he feels very much better than he did when I saw him. The pain then was insurmountable going down his left arm. A lot of the arm pain is gone now and he is happy about that as I am also. The MRI scan demonstrates that he has degenerative disc disease at C4-5 C5-6 and C6-7 but I see no significant pressure on any of the left-sided nerve roots. 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 With his vast improvement I told him we would simply observe him. In the event that the pain should come back with us a vengeance we will do epidural steroid injections. I will see him on a as needed basis. Coding Level of Care Code Off vis,est,level 2 Diagnoses Cervical radiculopathy M54.12 Time Spent (min) 20 Assessment and Plan Assessment and Plan (1) Cervical radiculopathy: Status: Acute 06/03/21 1210 <Electronically signed by David Duran DO> Date David Duran DO Cosigner Signature: Date (if applicable) CC: DO Lou Dubose DO Work Phone: Start: 05-31-2021 MRI of cervical spine Dr. Lou Siegel Work Phone: Start: 05-31-2021 End: 06-01-2021 Spine Cervical (Routine) Comments: See Note; NOTES: [facility] Imaging Services [address] [place] [address] Spine Cervical (Routine) MR#: [id number] Acct: [id number] Name: JOHNNIE QUIJANO Rep #: [id number] : 1940 M 81 From: Huber Lopez MD PCP: Dr. Lou Siegel DO Status: REG CLI Study: Spine Cervical (Routine) Date of Exam: Exam# [id number] Ordering Dr: David Duran DO STUDY: MRI CERVICAL SPINE WITHOUT CONTRAST REASON FOR EXAM: Male, 81 years old. Pain TECHNIQUE: Standardized fat and water weighted pulse sequences were obtained in the sagittal and axial planes. COMPARISON: None FINDINGS: Normal foramen magnum and brainstem-cervical cord junction. Normal craniovertebral junction. Normal anterior atlantoaxial articulation. Normal odontoid process. Mild cervical kyphosis. Normal vertebral bodies and posterior osseous elements. C2-3: Normal endplates. Normal disc height, signal and morphology. Normal central canal and intervertebral neural foramina. 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 Small posterior marginal spurs. Normal central canal and intervertebral neural foramina. C4-5: Normal endplates. Mild disc space height narrowing. Mild degenerative anterolisthesis of C4 on C5. Normal central canal. Moderate stenosis of the intervertebral neural foramina, right greater than left. C5-6: Normal endplates. Mild disc space height narrowing. Prominent anterior marginal spurs. Minimal posterior marginal spurs. Normal central canal and left intervertebral neural foramen. Moderately pronounced stenosis of the right intervertebral neural foramen due to prominent osteophyte. C6-7: Normal endplates. Mild disc space height narrowing. Smaller anterior and posterior marginal spurs. Normal central canal and right intervertebral neural foramen. Mild stenosis of the left intervertebral neural foramen. C7-T1: Normal endplates. Normal disc height. Minimal degenerative anterolisthesis of C7 on T1. Normal central canal and intervertebral neural foramina. T1-T2: (Sagittal only). Normal endplates. Normal disc height. Normal central canal and intervertebral neural foramina. T2-T3: (Sagittal only). Round lower T2 benign vertebral body hemangioma. Normal endplates. Mild disc space height narrowing. No central canal and intervertebral neural foramina. T3-T4, T4-T5 and T5-T6: (Sagittal only). Normal endplates. Normal disc height and morphology. Normal central canal and intervertebral neural foramina. Normal cervical cord. Normal upper thoracic spinal cord. Normal included portions of the brainstem and cerebellum. Normal visualized soft tissue structures. MRI/Spine Cervical (Routine) IMPRESSION: 1. No MRI evidence of cervical extruded disc fragment. 2. 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 3. Mild degenerative anterolisthesis of C4 on C5 and moderate stenosis of the intervertebral neural foramina, right greater than left. 4. Moderately pronounced stenosis of the right C5-C6 intervertebral neural foramen due to osteophyte arising from the left uncovertebral joint. 5. Mild stenosis of the left C6-C7 intervertebral neural foramen. 6. Minimal degenerative anterolisthesis of C7 on T1. 7. Lower T2 benign vertebral body hemangioma. Electronically Signed: Huber Lopez MD at 11:07 EST , CC: Dr. Lou Siegel DO; Dr. David Duran DO [employer] Service Supervisor: Signed Lou Siegel DO Work Phone: Start: 05-15-2021 End: 05-15-2021 Orthopedic Visit Report Comments: See Note; NOTES: [facility] [address] [place] [address] [address] [place] [address] OFFICE VISIT Date of Service: 05/15/21 MR#: [id number] Acct: [id number] Name: JOHNNIE QUIJANO Rep #: [id number] : 1940 Provider: Dr. David bowling DO Age/Sex: 81/M Location: [facility] Status: Signed Intake Intake Visit Reasons: Cervical pain Chief Complaint: sob, cough Allergies aspirin Allergy (Verified 06/17/19 10:54) Shortness of breath ibuprofen Allergy (Verified 06/17/19 10:54) Other Medications albuterol sulfate [Ventolin HFA] 1 - 2 puff INHALATION Q4H PRN PRN #1 inhaler 05/02/14 [Rx Confirmed 05/15/21] montelukast [Singulair] 10 mg PO DAILY 05/02/14 [History Confirmed 05/15/21] fluticasone propion-salmeterol [Advair Diskus] 1 puff INHALATION BID 05/05/14 [History Confirmed 05/15/21] orphenadrine citrate 100 mg tablet,extended release 100 mg PO BID #20 tab 05/08/21 [Rx Confirmed 05/15/21] PFSH Medical History Cervical radiculopathy Cervical strain Cubital tunnel syndrome on left Family History Sister Cancer Social History Smoking Status: Never smoker HPI Pain of cervical spine Details: Parts of this documentation were recorded by a scribe, this documentation accurately reflects the service provided and the decisions made by me, Dr. David Duran, DO 05/15/21 0667. JOHNNIE QUIJANO is a 81 year old M NEW Pt here today for neck and left arm pain for at least a month. Pt denies any injury. Pt denies any previous surgeries, injections, or PT on neck. Pt states he has seen chiropractor which helped but pain returned. Pt states pain is posterior in neck and radiates down his left arm approximately to his elbow. Pt denies trying NSAID's or topical pain creams stating he has tried ice which was ineffective. Pt states he is taking Orphenadrine which is not effective. Pt states he was on a prednisone taper which was not effective. Mr. Quijano is a most pleasant gentleman who presents with a chief complaint of pain in the left side of his neck that radiates down his left arm. He seems to describe a C6 dermatome. He comes in the company of his . He has been hurting now for approximately 5 weeks. Has had episodes of this in the past but not near as bad as this episode. He denies any actual weakness in his arm. On examination he has exquisite pain with any attempted extension of his neck. Not so with flexion. Is positive Spurling's to the left side. However he has excellent motor strength of all the major muscle groups of both upper extremities. He has absent triceps reflexes bilaterally but 2+ biceps and 1+ brachioradialis reflexes bilaterally. He has no muscle atrophy. He has no long tract signs. Clonus is absent Babinski's are downgoing. 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 Impression is that of cervical radiculopathy. We will order an MRI scan of the cervical spine. I will see him after the MRI scan and make further recommendations. Ortho Exam General General: Yes no acute distress Neurologic: Yes alert and Yes oriented x3 Psychologic: Yes reasonable and appropriate Coding Level of Care Code Off vis,new,level 3 Diagnoses Pain of cervical spine M54.2 Cervical radiculopathy M54.12 Time Spent (min) 30 Assessment and Plan Assessment and Plan (1) Pain of cervical spine: (2) Cervical radiculopathy: Status: Acute 05/15/21 1125 <Electronically signed by David Duran DO> Date David Duran DO Cosigner Signature: Date (if applicable) CC: Dr. Lou Siegel, DO Lou Siegel DO Work Phone: Start: 05-08-2021 End: 05-08-2021 Urgent Care Visit Report Comments: See Note; NOTES: [facility] [address] [place] [address] [address] [place] [address] OFFICE VISIT Date of Service: 05/08/21 MR#: [id number] Acct: [id number] Name: JOHNNIE QUIJANO Rep #: [id number] : 1940 Provider: MASTER samuel Age/Sex: 81/M Location: [facility] Status: Signed Intake Vital Signs 05/08/21 13:25 BP 126/82 H Blood Pressure Location Lt brachial Position Sitting Respiration 18 Pulse 129 H Pulse Source Monitor Temp 97.8 F Temp Source Temporal Pulse Oximetry (%) 96 Oxygen Delivery Method room air Intake Visit Reasons: L ARM/ ELBOW TO SHOULDER Chief Complaint: sob, cough Allergies aspirin Allergy (Verified 06/17/19 10:54) Shortness of breath ibuprofen Allergy (Verified 06/17/19 10:54) Other [facility] Medical History (Updated 05/01/21 @ 18:02 by Zechariah THAO, MASTER) Cervical radiculopathy Cervical strain Cubital tunnel syndrome on left Social History (System 06/17/19 @ 10:54 by Suzan Ulrich) Smoking Status: Never smoker HPI HPI Chief Complaint: sob, cough Details: JOHNNIE QUIJANO, is a 81 M who presents to the office today for recheck of neck and left upper extremity paresthesias/pain. Patient was in his last evaluation here, the prednisone he was prescribed a week ago gave him mild relief though with current taper dose he is getting no relief. Cyclobenzaprine has been of little to no benefit. Since his evaluation here, he states he was evaluated by was to orthopedics which he states, "they really to do anything for me". No yura-hei-ujuulca products taken to assist with symptoms. He otherwise notes no changes from previous evaluation. ROS Const Constitutional: No other (As above) Exam Const General: cooperative, healthy appearing, uncomfortable and no acute distress Nutritional Appearance: average body habitus and well nourished Orientation: alert, awake and oriented x3 HENMT Head: normal to inspection Ears: external ears normal and TM's normal bilaterally Nose: external nose normal Eyes General: appearance normal, both eyes and all related structures Neck Neck: normal visual inspection, limited ROM (Limited flexion/extension/bilater al rotation) and no meningeal signs Neck mass: No Chest Chest palpation inspection: normal inspection of the chest Resp Effort Inspection: normal respiratory effort, able to speak in complete sentences and symmetric chest movement Cardio Rate: tachycardic Pulses: radial pulses present Musc Cervical Spine: pain with cervical ROM; No normal cervical lordosis or cervical spinal tenderness Thoracic/Lumbar Spine: no thoracic spinal tenderness Skin General: no rashes or lesions noted Neuro General: patient alert, patient awake, patient oriented x3 and gait normal Cognition: normal cognition Speech: speech normal Gait: normal gait Motor: muscle tone normal throughout Sensory Exam: no sensory deficits noted (x LRF, LLF paresthesias upon palpation of left cubital tunnel) Extrem General: normal to inspection, full ROM (With discomfort to left shoulder/elbow/wrist) and capillary refill normal Psych Appearance: grossly normal Mental Status: mental status grossly normal Mood: congruent mood Affect: normal affect Speech and Movement: speech and movement normal Attitude: cooperative Thought Process: normal Thought Content: normal Judgment: judgment good Coding Level of Care Code Off vis,est,level 3 Diagnoses Cervical strain S16.1XXA Cervical radiculopathy M54.12 Cubital tunnel syndrome on left G56.22 Assessment and Plan Assessment and Plan (1) Cervical strain: Status: Acute Orders: Referrals: Orthopedics (2) Cervical radiculopathy: Status: Acute Orders: Referrals: Orthopedics (3) Cubital tunnel syndrome on left: Status: Acute Plan: Again, reviewed current symptoms with patient as well as last C-spine/left shoulder radiographs from October 2020 with patient, recommending orthospine referral for reassessment and continuation of care. Finish prednisone taper as previously prescribed. Hold cyclobenzaprine as previously prescribed; start orphenadrine as prescribed today as needed. Follow-up with the now clinic on an as-needed basis only. Patient states acknowledging understanding all the above. This note was generated with [employer] dictation software. It may contain incorrect words, spelling, and punctuation that were not noted in checking the note before signing. Plan Details Other Medications: New: orphenadrine citrate ER 100 mg PO BID 20 tabs 0RF Discontinued: cyclobenzaprine Discontinued Reason: Discontinued by PCP/other physicians 10 mg PO TID PRN 30 tabs 0RF muscle spasm 05/08/21 1416 <Electronically signed by Zechariah THAO> Date Zechariah THAO Cosigner Signature: Date (if applicable) CC: Lou Siegel DO Work Phone: Start: 05-01-2021 End: 05-01-2021 Urgent Care Visit Report Comments: See Note; NOTES: [facility] [address] [place] [address] OFFICE VISIT Date of Service: 05/01/21 MR#: [id number] Acct: [id number] Name: JOHNNIE QUIJANO Rep #: [id number] : 1940 Provider: MASTER samuel Age/Sex: 81/M Location: [facility] Status: Signed Intake Vital Signs 05/01/21 17:24 BP 132/78 H Blood Pressure Location Lt brachial Position Sitting Respiration 18 Pulse 87 Pulse Source Monitor Temp 97.5 F L Temp Source Temporal Pulse Oximetry (%) 99 Oxygen Delivery Method room air Intake Visit Reasons: TENDONITIS L ELBOW SHOULDER PAIN Chief Complaint: sob, cough Allergies aspirin Allergy (Verified 06/17/19 10:54) Shortness of breath ibuprofen Allergy (Verified 06/17/19 10:54) Other [facility] Medical History (Updated 05/01/21 @ 18:02 by Zechariah Arora PA, PA) Cervical radiculopathy Cervical strain Cubital tunnel syndrome on left Social History (System 06/17/19 @ 10:54 by Suzan Ulrich) Smoking Status: Never smoker HPI HPI Chief Complaint: sob, cough Details: JOHNNIE QUIJANO, is a 81 M who presents to the office today for recurring left cervical pain w/ LUE paresthesias and pain. Paresthesias most prominent to left ring finger and left little finger with his exacerbation of symptoms when palpating elbow patient states.. No cp/ sob. Above symptoms are chronic recurring about every 3-4 months. No otc products taken to assist. No other c/o at this time. ROS Const Constitutional: No other (As above) Exam Const General: cooperative, healthy appearing, uncomfortable and no acute distress Nutritional Appearance: average body habitus and well nourished Orientation: alert, awake and oriented x3 HENMT Head: normal to inspection Ears: external ears normal Nose: external nose normal Eyes General: appearance normal, both eyes and all related structures Neck Neck: normal visual inspection Chest Chest palpation inspection: normal inspection of the chest Resp Effort Inspection: normal respiratory effort, able to speak in complete sentences, symmetric chest movement and no cough Cardio Rate: regular rate Pulses: radial pulses present GI Inspection: normal to inspection Musc Cervical Spine: normal cervical lordosis, cervical muscular tenderness (left, exacerbating LUE paresthesias) and pain with cervical ROM Skin General: no rashes or lesions noted Neuro General: patient alert, patient awake, patient oriented x3 and gait normal Cognition: normal cognition Speech: speech normal Gait: normal gait Motor: muscle tone normal throughout Sensory Exam: no sensory deficits noted (x LRF, LLF paresthesias upon palpation of left cubital tunnel) and other (LUE: Negative Phalen's and Tinel's) Extrem General: normal to inspection Psych Appearance: grossly normal Mental Status: mental status grossly normal Mood: congruent mood Affect: normal affect Speech and Movement: speech and movement normal Attitude: cooperative Thought Process: normal Thought Content: normal Judgment: judgment good Coding Level of Care Code Off vis,new,level 3 Diagnoses Cervical strain S16.1XXA Cervical radiculopathy M54.12 Cubital tunnel syndrome on left G56.22 Assessment and Plan Assessment and Plan (1) Cervical strain: Status: Acute (2) Cervical radiculopathy: Status: Acute (3) Cubital tunnel syndrome on left: Status: Acute Plan - Zechariah THAO PA: Prednisone and Flexeril as prescribed today. Home exercises as instructed today. Follow-up with PCP in 3 to 5 days should symptoms not improve, sooner should symptoms worsen or any other concerns develop. Patient states acknowledging understanding all the above. This note was generated with [employer] software. It may contain incorrect words, spelling, and punctuation that were not noted in checking the note before signing. Plan Details Other Medications: New: prednisone 4 tablets daily for 3 days, then 3 tablets daily for 3 days, then 2 tablets daily for 3 days, then 1 tablet daily for 3 days 10 mg PO DAILY 30 tabs 0RF cyclobenzaprine 10 mg PO TID PRN 30 tabs 0RF muscle spasm 05/01/21 1803 <Electronically signed by Zechariah THAO> Date Zechariah THAO Cosigner Signature: Date (if applicable) CC: Lou Siegel DO Work Phone: Start: 10-23-2020 End: 10-23-2020 Cerv Spine 4 or 5 Views Comments: See Note; NOTES: [facility] [address] [place] [address] Cerv Spine 4 or 5 Views MR#: [id number] Acct: [id number] Name: JOHNNIE QUIJANO Rep #: [id number] : 1940 M 80 From: Abhay Golden MD PCP: Dr. Lou Siegel DO Status: DEP AMB Study: Cerv Spine 4 or 5 Views Date of Exam: 10/23/20 Exam# [id number] Ordering Dr: Karla Schultz NP [employer] STUDY: X-RAY - CERVICAL SPINE REASON FOR EXAM: Male, 80 years old. Neck pain. TECHNIQUE: 5 view(s) of the cervical spine were obtained. COMPARISON: None FINDINGS: Osteopenia. Normal anterior atlantoaxial articulation. Normal odontoid process. Reversal of the normal lordotic curve. Fusion of the C3 and C4 vertebral bodies. Diffuse uncovertebral and facet sclerosis. Diffuse intervertebral disc space narrowing with osteophyte formation most marked at C4-5, C5-6 and C6-7. Anterior bony neural foraminal encroachment at C4-5, C5-6 and C6-7 bilaterally. The soft tissue structures are unremarkable. RAD/Cerv Spine 4 or 5 Views IMPRESSION: Osteopenia with moderate cervical spondylosis with anterior bony neural foraminal encroachment at C4-5, C5-6 and C6-7 bilaterally as described. C3-4 fusion. No acute abnormality. Electronically Signed: Abhay Golden MD at 13:47 EDT , Service support , CC: [employer] Karla Schultz; Dr. Lou Siegel DO [employer] Service Supervisor: Signed Karla Schultz [facility] Work Phone: Start: 10-23-2020 End: 10-23-2020 Shoulder min 2 Views Comments: See Note; NOTES: [facility] [address] [place] [address] Shoulder min 2 Views MR#: [id number] Acct: [id number] Name: JOHNNIE QUIJANO Rep #: [id number] : 1940 M 80 From: Abhay Golden MD PCP: Dr. Lou Siegel DO Status: DEP AMB Study: Shoulder min 2 Views Date of Exam: 10/23/20 Exam# [id number] Ordering Dr: Karla Schultz NP [employer] STUDY: X-RAY - LEFT SHOULDER REASON FOR EXAM: Male, 80 years old. Shoulder pain. TECHNIQUE: 4 view(s) of the shoulder. COMPARISON: None. FINDINGS: Osteopenia. Mild arthrosis of the glenohumeral joint with small osteophytes. Mild arthrosis of the AC joint. Normal acromion. Normal humeral head and visualized proximal humerus. The soft tissue structures are unremarkable. Normal visualized pulmonary apex. 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 No acute abnormality. Electronically Signed: Abhay Golden MD at 13:52 EDT , Service support , CC: [employer] Karla Schultz; Dr. Lou Siegel DO [employer] Service Supervisor: Signed Karla Schultz [employer] Work Phone: Start: 10-27-2019 End: 10-27-2019 PT D/C of Non Returning Pt (1) Comments: See Note; NOTES: [facility] [address] [place] [address]. [address] [place] [address] / REHABILITATION SERVICES DISCHARGE SUMMARY MR#: [id number] Acct: [id number] Name: JOHNNIE QUIJANO Rep #: [id number] : 1940 79 From: Wilfrido KELLYT Referring Dr.: Dr. Lou Siegel, DO Status: REG RCR Insurance: [employer] INSURANCE JOHNNIE QUIJANO was seen in my office for initial evaluation on 05/19/19. The following Plan of Care was established for this patient: Initial Frequency: 1x/Week Initial Duration: 4 Weeks Patient/Client Instruction: Educate patient on: Condition, Plan of Care, Risk Factors, Benefits of Fitness Program For the Purpose of:: To improve decision making, To facilitate caregiver knowledge, To improve self management, To prevent re-injury, To improve ability to perform tasks related to life management, To improve tolerance to ADL's Therapeutic Exercise to Include: Strength training, Power training, Postural training, Flexibilty training For the Purpose of:: To decrease pain, To decrease swelling/inflammation, To increase ROM Manual Therapy Techniques to Include: Mobilization, Functional dry needling, Soft tissue mobilization For the Purpose of:: To decrease pain, To decrease swelling/inflammation, To improve nutrient delivery to tissue Ultrasound (thermal/non thermal): Yes For the Purpose of:: To improve nutrient delivery to tissue, To increase oxygenation perfusion, To improve muscle performance and motor function This patient was last seen in our office 05/19/19. Pertinent comments regarding their Physical therapy will appear below: Pt. was seen for his initial evaluation. He came for his initial evaluation and has not been seen since. Pt. will be DC from PT at this point in time. At this point I will be discontinuing this patient from physical therapy. I would be happy to see this patient again in the future if found appropriate by the physician. Thank you! Wilfrido Malave DPT <Electronically signed by Wilfrido Malave DPT> 10/27/19 0734 CC: Dr. Lou Siegel, CLS Signed Lou Siegel Start: 05-20-2019 End: 05-20-2019 Inital Evaluation (1) - PT Comments: See Note; NOTES: [facility] [address] [place] [address] [address] [place] [address] / REHABILITATION SERVICES INITIAL EVALUATION MR#: [id number] Acct: [id number] Name: JOHNNIE QUIJANO Rep #: [id number] : 1940 79 From: Wilfrido Malave DPT Referring Dr.: Lou Siegel DO Status: REG RCR Insurance: [employer] SELF [employer] INSURANCE Patient's Visit Information JOHNNIE QUIJANO is a 79 year old M referred to Physical Therapy by Lou Siegel DO with a diagnosis of L lateral epidcondylitis. Date of Evaluation: 05/19/19 Physical Therapist: Wilfrido Malave DPT - Visit Plan Frequency: 1x/Week Duration: 4 Weeks Plan: I gave patient some stretching, DFM and eccentric exercises for HEP. PT. desires to trial on his own to see if he can self manage. He is to come back in if his symptoms start to come back. I educated him on activity management and use of bracing as needed. I aksed for a few visits in case his symptoms were to come back, we would be able to address as needed. - Subjective Findings: Pt. is here today for his initial evaluation with diagnosis of L lateral epicondylitis. Pt. reports no mech of injury, but has been having pain for 1 month now. Pt. reports using many modalities to attempt to reduce symptoms including heat, ice, injection, bracing, analgesic creams, but ultimately he has started to CBD oil (roll on) and reports this has really helped. Pt. reports minimal pain 1/10 currently. He is R hand dominant. 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 Pt. denies N/T, no shoulder pain, no radiating pain. Pt. has most of his pain at is L lateral elbow, greatest wtih lifting, holding objects. He reports he has resulted to avoiding use of his L arm. Pt. is having some trouble sleeping, but has also improved. Pt. reports he was unsure if was even going to come, due to feeling better. Pt. is hopeful to reduce symptoms in order to get back to all recreational activities without limitations. - Pain L lateral elbow Pain Intensity (Out of 10): 1 Pain Intensity Range: 0, 4 - Objective POSTURE: Pt. has good posture in stance and sitting. Normal elbow positoning. PALPATION: Pt. was tender to palpation of L wrist/finger extensor group, and lateral epicondyl. No pain else where. NEURO: Normal throughout BUEs. ROM: PT has tightness with terminal elbow extension, tight wrist extensors, tight wrist flexors. MMT: Pt. has 78# of email marketing coordinator strength on R side, 66# on L side. Pt. has 5/5 wrist and elbow strenght on R side, 5/5 throughout LUE, except wrist extension 5-/5 mild increase NW. - Special Tests L Elbow Flexion Test - Cubital Tunnel: Negative L Elbow Tinels - Ulnar n.: Positive L Elbow Valgus Stress Test - MCL Instability: Negative L Elbow Varus Stress Stest - MCL Instability: Negative L Elbow Lat Epiconylitis - as named: Positive - Goals Goal 1:: LTG: Pt. to be I with HEP. Goal Time Frame: 4-6 Weeks Goal 2:: STG: Pt. to have no pain with lifting and gripping household objects Goal Time Frame: 2-4 Weeks Goal 3:: STG: Pt. to sleep throughout the night without increase in symptoms. Goal Time Frame: 2-4 Weeks Goal 4:: LTG: Pt. to complete all ADLs without increase in symptoms. Goal Time Frame: 4-6 Weeks Goal 5:: LTG: pt. to have increased wrist extensors by 1/2 grade Goal Time Frame: 4-6 Weeks - Rehabilitation Potential Physical Therapy Diagnosis: Pt. has signs and symptoms consistent with L lateral epidcondylitis. Pt. is doing better with bracing and use of CBD oil. Pt. does have some soreness and tightness of his L lateral elbow. I gave him some exercises to use to work on flexibility and some eccentric strengthening. Pt. plans to work on his own for a 1-2 weeks to see if he can self progress/manage. Pt. to follow up with PT if unable to do so Rehabilitation Potential: Excellent - Anticipated Interventions Patient/Client Instruction: Educate patient on: Condition, Plan of Care, Risk Factors, Benefits of Fitness Program For the Purpose of:: To improve decision making, To facilitate caregiver knowledge, To improve self management, To prevent re-injury, To improve ability to perform tasks related to life management, To improve tolerance to ADL's Therapeutic Exercise to Include: Strength training, Power training, Postural training, Flexibilty training For the Purpose of:: To decrease pain, To decrease swelling/inflammation, To increase ROM Manual Therapy Techniques to Include: Mobilization, Functional dry needling, Soft tissue mobilization For the Purpose of:: To decrease pain, To decrease swelling/inflammation, To improve nutrient delivery to tissue Ultrasound (thermal/non thermal): Yes For the Purpose of:: To improve nutrient delivery to tissue, To increase oxygenation perfusion, To improve muscle performance and motor function Thank you for the opportunity to evaluate your patient. For Medicare and Medicare HMO plans, please review the plan of care and approve it. It will need to be FAXED BACK to us at [phone] for Medicare purposes. For Medicare only, by signing this I certify the plan of care. Please let me know if there are questions or concerns regarding this plan of care. Physician Signature: Date: _ <Electronically signed by Wilfrido Malave DPT> 05/20/19 1006 CC: Lou Siegel DO CLS Signed Lou Siegel Start: 04-26-2019 End: 04-26-2019 CTA Chest W/WO Contrast Comments: See Note; NOTES: [facility] Imaging Services [address] [place] [address] CTA Chest W/WO Contrast MR#: [id number] Acct: [id number] Name: JOHNNIE QUIJANO Rep #: [id number] : 1940 M 79 From: Ally Munguia MD PCP: Lou Siegel DO Status: REG CLI Study: CTA Chest W/WO Contrast Date of Exam: 04/26/19 Exam# [id number] Ordering Dr: Karla Schultz [employer] We are attempting to reach an attending provider to discuss findings. An addendum with communication details will be sent when the communication is complete. STUDY: CTA CHEST REASON FOR EXAM: Male, 79 years old. PAIN LEFT ARM, COUGH X2 DAYS RADIATION DOSAGE (If Supplied By Facility): CTDIvol = ( 10.72 ) mGy, DLP = ( 384.05 ) mGycm TECHNIQUE: The examination was performed with the intravenous administration of 100CC ISOVUE 370. Post-processing of the angiographic images was performed, with multiplanar reformation and 3D reconstruction. Individualized dose optimization techniques were used for this CT. COMPARISON: None. FINDINGS: Normal enhancement of the main pulmonary artery and right and left pulmonary arteries. Normal enhancement of the bilateral peripheral pulmonary arteries. There is no demonstrated pulmonary embolism. There is atherosclerotic calcification of the aortic arch with tortuosity. There is no demonstrated aortic dissection. There is mild cardiac enlargement. There are multiple small and reactive AP window lymph nodes. This measures up to 1.2 cm. There is a right side precarinal lymph node measuring 1.0 cm. There is calcification in the left hilum. There are patchy left upper lobe infiltrates groundglass opacities. There is a small focus of consolidation in the lingula. There is consolidation in the left lower lobe. There is focal consolidation in the right lung base. There is thickening of the adjacent bronchial structures. Normal pleura. Normal chest wall structures. There are degenerative changes of thoracic spine. There is a hiatal hernia demonstrated measuring 1.[address]/CTA Chest W/WO Contrast IMPRESSION: No demonstrated pulmonary embolism or arterial dissection. Multifocal pneumonia. Reactive-appearing lymphadenopathy. Given the peribronchial inflammatory change and some areas of inflammatory plugging cannot exclude aspiration. Electronically Signed: Ally Munguia MD at 17:03 EST Tel , Service support , CC: ELLA Schultz; Lou Siegel DO [employer] Service Supervisor: Signed Karla Schultz Work Phone: Start: 04-26-2019 End: 04-26-2019 Chest PA and Lateral Comments: See Note; NOTES: [facility] Services [address] [place] [address] Chest PA and Lateral MR#: [id number] Acct: [id number] Name: JOHNNIE QUIJANO Rep #: [id number] : 1940 M 79 From: Ally Munguia MD PCP: Lou Siegel DO Status: REG CLI Study: Chest PA and Lateral Date of Exam: 04/26/19 Exam# [id number] Ordering Dr: Karla cShultz STUDY: X-RAY CHEST REASON FOR EXAM: Male, 79 years old. COUGH X 3 DAYS TECHNIQUE: PA and lateral views of the chest. COMPARISON: None. FINDINGS: There are patchy opacities in the right midlung zone and in the left lower lobe. There is no demonstrated pleural abnormality. Normal size heart. Normal mediastinum and kailey. Normal visualized pulmonary arteries. Normal visualized aortic arch and descending thoracic aorta. There are diffuse degenerative changes of the visualized thoracic spine. Normal visualized ribs, clavicles, and shoulders. There is no demonstrated abnormality of the visualized soft tissue structures of the upper abdomen. RAD/Chest PA and Lateral IMPRESSION: Findings suspicious for left mid lung zone and left lower lobe infiltrates suspicious for pneumonia. Electronically Signed: Ally Munguia MD at 14:43 EST Tel , Service support , CC: ELLA Schultz; Lou Siegel DO [employer] Service Supervisor: Signed Karla Schultz Work Phone: Start: 01-02-2017 End: 01-04-2017 Knee 4 or More Views Comments: See Note; NOTES: [facility] Imaging Services [address] [place] [address] Knee 4 or More Views MR#: [id number] Acct: [id number] Name: JOHNNIE QUIJANO Rep #: [id number] : 1940 M 76 From: Zechariah Mccullough MD PCP: Lou Siegel DO Status: REG CLI Study: Knee 4 or More Views Date of Exam: 01/02/17 Exam# [id number] Ordering Dr: Lou Siegel DO STUDY: X-RAY - LEFT KNEE REASON FOR EXAM: Male, 76 years old. Pain TECHNIQUE: 4 view(s) of the knee. COMPARISON: None. FINDINGS: Normal visualized distal femur. Normal visualized proximal tibia and fibula. Normal proximal tibiofibular articulation. Normal medial femorotibial compartment. Normal lateral femorotibial compartment. Normal patellofemoral articulation. There is a small joint effusion. RAD/Knee 4 or More Views IMPRESSION: Joint effusion Electronically Signed: Zechariah Mccullough MD at 8:46 EDT Tel , Service support , CC: Lou Siegel DO [employer] Service Supervisor: Signed Lou Siegel Work Phone: Start: 01-31-2015 End: 01-31-2015 Spmtry w/vc expiratory sergey w/wo mxml vol vntj _ Lou Siegel Work Phone: Comment on above: mod obstruction Start: 05-05-2014 End: 05-05-2014 Chest PA and Lateral Comments: See Note; NOTES: [facility] Imaging Services [address] [place] [address] Radiology Report MR#: [id number] Acct: [id number] Name: JOHNNIE QUIJANO Rep #: [id number] : 1940 M 74 From: Sean Pace MD PCP: Lou Siegel DO Status: REG ER Study: Chest PA and Lateral Date of Exam: 05/05/14 Exam# [id number] Ordering Dr: Pablo Patrick MD STUDY: X-RAY CHEST REASON FOR EXAM: Male, 74 years old. Cough and shortness of breath. TECHNIQUE: PA and lateral views of the chest. COMPARISON: Comparison is made with prior examination dated August 04, 2010. FINDINGS: There is evidence of infiltration in the lingular segment of the left upper lobe in keeping with focal pneumonia. There is blunting of both cosmetic angles. Normal size heart. Normal mediastinum and kailey. Normal visualized pulmonary arteries. There is atherosclerotic tortuosity of the aortic arch and descending thoracic aorta. Normal visualized thoracic spine. Normal visualized ribs, clavicles, and shoulders. There is no demonstrated abnormality of the visualized soft tissue structures of the upper abdomen. IMPRESSION: Lingular infiltration. Electronically Signed: Sean Pace MD at 12:30 EST Tel [phone], Service support [phone], CC: Lou Siegel DO; Pablo Patrick MD [employer] Service Supervisor: Signed Lou Siegel History of appendectomy Appendectomy Jasm in [facility] Comment on above: 58 yrs History of appendectomy Appendectomy Kaycee Chamberlain [employer]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 Comment on above: 58 yrs History of appendectomy Appendectomy Bhavna Mendoza [facility] Comment on above: 58 yrs History of appendectomy Appendectomy Bhavna Mendoza NAIL SPECIALIST Comment on above: 58 yrs History of appendectomy Appendectomy Bhavna la Demetria NAIL SPECIALIST Comment on above: 58 yrs History of appendectomy [facility]endectomy [facility] in [facility] NAIL SPECIALIST Comment on above: 58 yrs History of appendectomy Appendectomy [facility]asm in [facility] NAIL SPECIALIST Comment on above: 58 yrs History of appendectomy Appendectomy Jasm in [facility] Comment on above: 58 yrs History of appendectomy Appendectomy Bettye la Slarb [employer]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 Comment on above: 58 yrs History of appendectomy Appendectomy Bhavnabetty Mendoza NAIL SPECIALIST Comment on above: 58 yrs History of appendectomy Appendectomy Alice sea Manchak NAIL SPECIALIST Comment on above: 58 yrs History of appendectomy Appendectomy Dako wan Cuellar LPN Comment on above: 58 yrs Plan of Treatment Date Care Activity Detail Author Start: 01-17-2025 End: 01-17-2025 Patient encounter procedure Colon cancer -[facility] Work Phone: Start: 01-12-2025 Non-patient / Non-visit Non-pa tient / Non-visit -[facility] Start: 01-12-2025 Computed tomography of abdomen and pelvis with contrast Abdomen/Pelvis WITH Contrast [facility] Start: 01-12-2025 Patient encounter procedure Registered Clinical -Cat Scan [facility] Work Phone: Start: 01-11-2025 Colonoscopy Colonoscopy,EG D (Not Applicable) [facility] Start: 01-11-2025 Non-patient / Non-visit Non-pa tient / Non-visit -[facility] Start: 01-11-2025 End: 01-11-2025 Admission to same day surgery center Fecal occult blood test positive -[facility] Work Phone: Start: 01-11-2025 Patient discharge [facility] Start: 01-02-2025 End: 01-02-2025 Patient encounter procedure Departed Clinical -Laboratory Phy Office 3rd Flr Start: 01-02-2025 Measurement of occul t blood in stool specimen using immunoassay Stool Occult Blood (AKBAR) [facility] Start: 12-29-2024 Administration of bl ood product [facility] Start: 12-29-2024 [facility] Start: 07-13-2024 Patient discharge [facility] Start: 07-13-2024 [facility] Start: 07-12-2024 Following clinical pathway protocol [facility] Start: 07-12-2024 Ambulation without limitation [facility] Start: 07-12-2024 Assessment of risk o f venous thromboembolism [facility] Start: 07-12-2024 Bedrest [facility] Start: 07-12-2024 Catheterization of vein [facility] Start: 07-12-2024 Continuous pulse oximetry [facility] Start: 07-12-2024 Deep breathing and coughing exercises [facility] Start: 07-12-2024 Incentive spirometry [facility] Start: 07-12-2024 Insertion of cathete r into peripheral vein [facility] Start: 07-12-2024 Measuring intake and output [facility] Start: 07-12-2024 Notification of physician [facility] Start: 07-12-2024 Oxygen therapy [facility] Start: 07-12-2024 Patient referral to dietitian [facility] Start: 07-12-2024 Providing care accor ding to standard [facility] Start: 07-12-2024 Provision of activit y privileges [facility] Start: 07-12-2024 Pulse taking [facility] Start: 07-12-2024 Referral to occupati onal therapist [facility] Start: 07-12-2024 Referral to service [facility] Start: 07-12-2024 Taking patient vital signs [facility] Start: 07-12-2024 Vital signs measurements [facility] Start: 07-12-2024 End: 07-12-2024 [facility] Start: 07-12-2024 End: 07-12-2024 Elevation of head of bed [facility] Start: 07-12-2024 Admission procedure [facility] Start: 07-12-2024 Insertion of carotid artery stent Carotidstent (Left) [facility] Start: 07-12-2024 Inhalation therapy procedure [facility] Start: 06-13-2024 Patient discharge [facility] Start: 11-22-2023 Influenza vaccination Influenz a Vaccine (Season Ended) [facility] Start: 07-15-2023 [facility] Start: 07-15-2023 [facility] Start: 07-07-2023 [facility] Start: 07-07-2023 Patient discharge [facility] Start: 07-06-2023 Following clinical pathway protocol [facility] Start: 07-06-2023 Ambulation without limitation [facility] Start: 07-06-2023 Assessment of risk o f venous thromboembolism [facility] Start: 07-06-2023 Insertion of cathete r into peripheral vein [facility] Start: 07-06-2023 Measuring intake and output [facility] Start: 07-06-2023 Providing care accor ding to standard [facility] Start: 07-06-2023 [facility] Start: 07-06-2023 Verification routine [facility] Start: 07-06-2023 Admission procedure [facility] Start: 07-06-2023 Hospital admission, emergency, from emergency room, medical nature [facility] Start: 07-06-2023 [facility] Start: 06-19-2023 [facility] Start: 06-19-2023 [facility] Start: 03-23-2023 Advance Directive Discussion Advance Directive Discussion [facility] Start: 03-23-2023 Behavioral Health Screening Behavioral Health Screening [facility] Start: 03-04-2023 Methylmalonate measurement [facility] Start: 11-21-2022 Covid-19 Vaccine () Covid-19 Vaccine () [facility] Start: 11-12-2022 Procedure Education Eprescribe d prescriptions (G8553) [facility] Work Phone: Start: 10-13-2022 Procedure Education Eprescribe d prescriptions (G8553) [facility] Work Phone: Start: 06-12-2022 Provider Instruction s for Treatment [facility] Work Phone: Start: 05-30-2022 Assay of thyroid stimulating hormone tsh TSH (THYROID STIMULATING HORMONE) (43889) [facility] Work Phone: Start: 05-30-2022 CBC, PLATELETS & MAN UAL DIFF (65518) CBC, PLATELETS & MANUAL DIFF (69498) [facility]; [facility] Work Phone: Start: 05-30-2022 Comprehensive metabo lic panel METABOLIC PANEL, COMPREHENSIVE (32161) [facility] Work Phone: Start: 05-29-2022 Procedure Education Eprescribe d prescriptions (G8553) [facility] Work Phone: Start: 05-05-2022 Procedure Education Eprescribe d prescriptions (G8553) [facility] Work Phone: Start: 03-26-2022 Procedure Education Eprescribe d prescriptions (G8553) [facility] Work Phone: Start: 03-26-2022 Provider Instruction s for Treatment [facility] Work Phone: Start: 03-26-2022 INHOUSE COVID 19 (ON LY) RAPID ([id number]) INHOUSE COVID 19 (ONLY) RAPID ([id number]) [facility] Work Phone: Start: 03-25-2022 Natriuretic peptide BNTP (60552) [facility] Work Phone: Start: 03-25-2022 Procedure Education Eprescribe d prescriptions (G8553) [facility] Work Phone: Start: 03-23-2022 ADVANCE DIRECTIVE DISCUSSION ADVANCE DIRECTIVE DISCUSSION [facility] Start: 03-23-2022 DEPRESSION ASSESSMENT DEPRESSION ASS ESSMENT [facility] Start: 02-03-2022 Procedure Education Eprescribe d prescriptions (G8553) [facility] Work Phone: Start: 01-06-2022 Procedure Education Eprescribe d prescriptions (G8553) [facility] Work Phone: Start: 01-06-2022 Provider Instruction s for Treatment [facility] Work Phone: Start: 11-21-2021 Influenza vaccination INFLUENZA (#1) [facility] Start: 10-21-2021 Procedure Education Eprescribe d prescriptions (G8553) [facility] Work Phone: Start: 10-21-2021 Provider Instruction s for Treatment [facility] Work Phone: Start: 09-25-2021 Procedure Education Eprescribe d prescriptions (G8553) [facility] Work Phone: Start: 09-18-2021 Procedure Education Eprescribe d prescriptions (G8553) [facility]; [facility] Work Phone: Start: 09-18-2021 Provider Instruction s for Treatment Continue Current Prescription(s) [facility] Work Phone: Start: 09-13-2021 Lipid panel LIPID PANEL (74077) [facility] Work Phone: Start: 09-13-2021 Procedure Education Eprescribe d prescriptions (G8553) [facility]; [facility] Work Phone: Start: 09-13-2021 Provider Instruction s for Treatment [facility]; [facility] Work Phone: Start: 01-30-2021 Procedure Education Eprescribe d prescriptions (G8553) [facility] Work Phone: Start: 10-23-2020 Procedure Education Eprescribe d prescriptions (G8553) [facility]; [facility] Work Phone: Start: 10-23-2020 Provider Instruction s for Treatment Follow up in 3 weeks [facility]; [facility] Work Phone: Start: 10-19-2020 Procedure Education Eprescribe d prescriptions (G8553) [facility]; [facility] Work Phone: Start: 10-19-2020 Provider Instruction s for Treatment Lateral Epicondyle injection- lef t [facility]; [facility] Work Phone: Start: 01-16-2020 Procedure Education Eprescribe d prescriptions (G8553) [facility] Work Phone: Start: 01-16-2020 Provider Instruction s for Treatment Solu Medrol Injection/ Education [facility] Work Phone: Start: 10-24-2019 Procedure Education Eprescribe d prescriptions (G8553) [facility] Work Phone: Start: 10-24-2019 Provider Instruction s for Treatment Follow up if no improvement or if symptoms worsen [facility] Work Phone: Start: 08-25-2019 Procedure Education Eprescribe d prescriptions (G8553) [facility] Work Phone: Start: 08-25-2019 Iaadiadoo influenza 2019 Novel Coronavirus (COVID-19), JOVANA (77334) [facility] Work Phone: Start: 05-02-2019 Procedure Education Eprescribe d prescriptions (G8553) [facility] Work Phone: Start: 04-26-2019 Procedure Education Eprescribe d prescriptions (G8553) [facility] Work Phone: Start: 04-26-2019 Provider Instruction s for Treatment Follow up if no improvement or if symptoms worsen [facility] Work Phone: Start: 04-26-2019 Fibrin dgradj produc ts d-dimer quantitative D-Dimer (64813) [facility] Work Phone: Start: 04-26-2019 Creatine kinase mb fraction only CPK MB FRACTION (21331) [facility] Work Phone: Start: 04-26-2019 Assay of troponin quantitative Troponin I (30307) [facility]; [facility] Work Phone: Start: 04-26-2019 Troponin I.cardiac [Mass/Vol] Troponin I (60224) [facility] Work Phone: Start: 04-26-2019 Natriuretic peptide BNTP (06439) [facility] Work Phone: Start: 04-12-2019 Procedure Education Eprescribe d prescriptions (G8553) [facility] Work Phone: Start: 04-12-2019 Provider Instruction s for Treatment [facility] Work Phone: Start: 02-08-2019 Procedure Education Eprescribe d prescriptions (G8553) [facility] Work Phone: Start: 07-29-2018 Procedure Education [facility] Work Phone: Start: 03-26-2017 Procedure Education Eprescribe d prescriptions (G8553) [facility] Work Phone: Start: 03-26-2017 Provider Instruction s for Treatment Follow up if no improvement or if symptoms worsen [facility] Work Phone: Start: 01-09-2017 Provider Instruction s for Treatment Continue Current Prescription(s) [facility] Work Phone: Start: 01-02-2017 Provider Instruction s for Treatment [facility] Work Phone: Start: 03-14-2016 Procedure Education Eprescribe d prescriptions (G8553) [facility] Work Phone: Start: 01-31-2015 Patient Education Cough Medici tyler, Nonprescription: cough [facility] Work Phone: Start: 01-31-2015 Procedure Education Eprescribe d prescriptions (G8553) [facility] Work Phone: Start: 01-31-2015 Provider Instruction s for Treatment *Antibiotic Usage Education - Male [facility] Work Phone: Start: 05-19-2014 Provider Instruction s for Treatment [facility] Work Phone: Start: 05-19-2014 Blood occult fecal h gb deter ia qual feces 1-3 FECAL OCCULT- Tubes sent home (60181) [facility] Work Phone: Start: 05-08-2014 Provider Instruction s for Treatment [facility] Work Phone: Start: 08-06-2010 Provider Instruction s for Treatment *Antibiotic Usage Education - Male [facility] Work Phone: Start: 10-13-2008 Lipid panel LIPID PANEL (56409) [facility] Work Phone: Start: 10-13-2008 Comprehensive metabo lic panel METABOLIC PANEL, COMPREHENSIVE (92189) [facility] Work Phone: Start: 10-13-2008 Sedimentation rate r bc non-automated SED RATE ERYTHROCYTE (78941) [facility] Work Phone: Start: 10-13-2008 C-reactive protein C-REACTIVE PROTEIN (29275) [facility] Work Phone: Start: 10-13-2008 CRP mass conc C-REACTIVE PRO TEIN (05970) [facility] Work Phone: Start: 10-13-2008 Blood count manual c ell count each CBC WITH MANUAL DIFF (18454) [facility] Work Phone: Start: 10-13-2008 Assay of prostate specific antigen total PSA (PROSTATE SPECIFIC ANTIGEN) (V76.44) [facility] Work Phone: Start: 10-13-2008 Protein mass conc PSA (PROSTAT E SPECIFIC ANTIGEN) (V76.44) [facility] Work Phone: Start: 10-09-2008 Urnls dip stick/tabl et rgnt auto w/o microscopy URINALYSIS W/O MICRO (57324) [facility] Work Phone: Start: 10-09-2008 Provider Instruction s for Treatment Antibiotic Usage Education - Male [facility] Work Phone: Start: 2003 Pneumococcal Vaccine : 65+ (1 of 1 - PCV) Pneumococcal Vaccine: 65+ (1 of 1 - PCV) [facility] Start: 2003 PNEUMOCOCCAL: 65+ (1 - PCV) PNEUMOCOCCAL: 65+ (1 - PCV) [facility] Start: 1998 RSV Vaccine (1 - 1-d ose 60+ series) RSV Vaccine (1 - 1-dose 60+ series) [facility] Start: 1988 SHINGRIX VACCINE (1 of 2) SHINGRIX VACCINE (1 of 2) [facility] Start: 1983 DIABETES SCREEN DIABETES SCREEN [facility] Start: 1983 Diabetes Screening Diabetes Screenin g [facility] Start: 1957 Urine microalbumin profile [facility] Bacteria identified in Urine by Culture [facility] Catheterization of l eft heart [facility] CBC W Auto Different ial panel - Blood [facility] Myoglobin [Mass/volu me] in Serum or Plasma [facility] Patient referral [facility] Work Phone: Procedure [facility] End: 04-21-2023 Radiologic exam chest 2 views XR CHEST 2V FRONTAL/LAT Radiology STAT Lower resp. tract infection 1 Occurrences starting 03/22/2022 until 04/21/2023 [facility] Work Phone: Comment on above: 1 Occurrences starti ng 03/22/2022 until 04/21/2023 End: 07-29-2024 SPIROMETRY WITH DILATOR IF OBSTRUCTED SPIROMETRY WITH DILATOR IF OBSTRUCTED PFT Routine Dyspnea, unspecified type 1 Occurrences starting 06/30/2023 until 07/29/2024 [facility] Work Phone: Comment on above: 1 Occurrences starti ng 06/30/2023 until 07/29/2024 US Carotid arteries [facility] End: 07-29-2024 XR Chest PA and Lateral XR CHEST 2V FRONTAL/LAT Radiology Routine Dyspnea, unspecified type 1 Occurrences starting 06/30/2023 until 07/29/2024 [facility] Work Phone: Comment on above: 1 Occurrences starti ng 06/30/2023 until 07/29/2024 [facility] Work [facility]: [facility] Work [facility]: [facility] Work Phone: [facility] Work Phone: [facility] Work Phone: [facility] Work [facility] Work [facility] Work Phone: [facility] Work Phone: [facility] Work Phone: [facility] Work Phone: [facility] Work Phone: [facility] Work Phone: [facility] Work Phone: [facility] Work Phone: [facility] Work Phone: [facility] Work Phone: [facility] Work Phone: [facility] Work Phone: [facility] Work Phone[facility] Work Phone: [facility] Work Phone: [facility] Work Phone: [facility] Work Phone: [facility] Work Phone: [facility] Work Phone: [facility] Work Phone: [facility] Work Phone: [facility] Work Phone: [facility] Work Phone: [facility] Work Phone: [facility] Work Phone: [facility] Work Phone: [facility] Work Phone: [facility] Work Phone: [facility] Immunizations Immunization Date Immunization Notes Care Provider [facility] 02-06-[address] J Luis Mcgill Work Phone: [facility] 02-05-2023 Covid (Spikevax) Dr. J Luis villalobos Work Phone: [facility] 12-15-2022 RSV Adult Recombinan t (Arexvy) Dr. J Luis Mcgill Work Phone: [facility] 01-07-2022 Covct Moderna Bivale nt Booster Dr. J Luis Mcgill Work Phone: [facility] 02-15-2021 [facility] (Moderna) Dr. J Luis Mcgill Work Phone: [facility] 05-17-2020 Covct (Moderna) Dr. Lou Siegel Work Phone: [facility] 04-19-2020 Covct (Moderna) Dr. Lou Sigeel Work Phone: [facility] 11-21-[address] Lou Siegel Work Phone: [facility] 11-21-2013 influenza virus vaccine, unspecified formulation Vikki Gay MD Work Phone: [facility] Payers Date Payer Category Payer Private Health Insurance [facility] [id number] 2024 Self-pay [id number] 2022 Medicare AETNA MEDICARE A ETNA MEDICARE O [id number] 2022-Present [phone] [address] [place] [address] [facility] [id number] 2021 Medicare [id number] 2021 Unknown 2014 Private Health Insurance [id number] 2003 Medicare [id number] 2003 Medicare [id number] 1938 Unknown [id number] 2.16.840.1.544546.3.579.2.7 16 Unknown [id number] Unknown [id number] Unknown [id number] 2.16.840.1.435694.3.579.2.4 62 Unknown [id number] 2.16.840.1.250719.3.579.2.4 62 Unknown [id number] 2.16.840.1.507132.3.579.2.4 62 Unknown [id number] 2.16.840.1.734160.3.579.2.4 62 Unknown [id number] 2.16.840.1.257406.3.579.2.4 62 Unknown [id number] 2.16.840.1.213558.3.579.2.4 62 Unknown [id number] 2.16.840.1.238454.3.579.2.4 62 Unknown [id number] 2.16.840.1.157177.3.579.2.4 62 Unknown [id number] 2.16.840.1.367370.3.579.2.4 62 Unknown [id number] 2.16.840.1.037911.3.579.2.4 62 Unknown [id number] 2.16.840.1.930727.3.579.2.4 62 Unknown [id number] 2.16.840.1.308551.3.579.2.4 62 Unknown [id number] 2.16.840.1.935675.3.579.2.4 62 Unknown [id number] 2.16.840.1.959700.3.579.2.4 62 Unknown [id number] 2.16.840.1.233942.3.579.2.4 62 Unknown [id number] 2.16.840.1.743170.3.579.2.4 62 Unknown [id number] 2.16.840.1.489480.3.579.2.4 62 Unknown [id number] 2.16.840.1.605661.3.579.2.4 62 Unknown [id number] 2.16.840.1.217012.3.579.2.4 62 Unknown [id number] 2.16.840.1.670344.3.579.2.4 62 Unknown [id number] 2.16.840.1.148212.3.579.2.4 62 Unknown [id number] 2.16.840.1.406647.3.579.2.4 62 Unknown [id number] 2.16.840.1.035844.3.579.2.4 62 Unknown [id number] 2.16.840.1.908920.3.579.2.4 62 Unknown [id number] 2.16.840.1.317459.3.579.2.4 62 Unknown [id number] 2.16.840.1.734635.3.579.2.4 62 Unknown [id number] 2.16.840.1.447184.3.579.2.4 62 Unknown [id number] 2.16.840.1.065598.3.579.2.4 62 Unknown [id number] 2.16.840.1.300973.3.579.2.4 62 Unknown [id number] 2.16.840.1.004782.3.579.2.4 62 Unknown [id number] 2.16.840.1.351051.3.579.2.4 62 Unknown [id number] 2.16.840.1.654778.3.579.2.4 62 Unknown [id number] 2.16.840.1.740000.3.579.2.4 62 Unknown [id number] 2.16.840.1.622647.3.579.2.4 62 Unknown [id number] 2.16.840.1.425368.3.579.2.4 62 Unknown [id number] 2.16.840.1.204181.3.579.2.4 62 Unknown [id number] 2.16.840.1.176400.3.579.2.4 62 Unknown [id number] 2.16.840.1.416823.3.579.2.4 62 Unknown [id number] 2.16.840.1.127570.3.579.2.4 62 Unknown [id number] 2.16.840.1.884140.3.579.2.4 62 Unknown [id number] 2.16.840.1.539014.3.579.2.4 62 Unknown [id number] 2.16.840.1.859995.3.579.2.4 62 Unknown [id number] 2.16.840.1.502990.3.579.2.4 62 Unknown [id number] 2.16.840.1.967563.3.579.2.4 62 Unknown [id number] 2.16.840.1.265142.3.579.2.4 62 Unknown [id number] 2.16.840.1.632711.3.579.2.4 62 Unknown [id number] 2.16.840.1.599003.3.579.2.4 62 Unknown [id number] 2.16.840.1.132809.3.579.2.4 62 Unknown [id number] 2.16.840.1.995630.3.579.2.4 62 Unknown [id number] 2.16.840.1.816388.3.579.2.4 62 Unknown [id number] 2.16.840.1.303589.3.579.2.4 62 Unknown [id number] 2.16.840.1.185356.3.579.2.4 62 Unknown [id number] 62 Unknown [id number] 62 Unknown [id number] 62 Unknown [id number] [id number] 62 Unknown [id number] [id number] 62 Unknown [id number] [id number] 62 Unknown [id number] 2.16.840.1.586934.3.579.2.4 62 Unknown [id number] [id number] 62 Unknown [id number] [id number] 62 Unknown [id number] 62 Social History Date Type Detail Facility Start: 02-28-2020 End: 03-22-2022 Alcohol Use [facility] Work Phone: Comment on above: Occasional alcohol u se 2 QD , heterosexua l Outcome Analyst Start: 09-12-2021 End: 11-20-2021 Tobacco smoking status DEIS Unknown if ever smoked [facility] Start: 05-05-2014 Rare [facility] Start: 05-05-2014 None [facility] Start: 05-05-2014 With Family [facility] Start: 05-05-2014 Non-smoker [facility] Start: 1940 Sex Assigned At Male [facility] Start: 2022 End: 01-10-2025 Tobacco smoking status NHIS Never smoked tobacco [facility] Work Phone: Start: 2022 Tobacco use and exposure Smokeless tobacco non-user [facility] Work Phone: Start: 03-22-2022 Alcohol intake Not Asked [facility] Start: 1940 Sex Assigned At Not on file [facility] Start: 02-28-2020 End: 03-22-2022 Tobacco use panel [facility] National Score (1-10 0), lower number is lower risk Not on file [facility] Start: 06-02-2024 End: 07-13-2024 Sex Male (finding) [facility] Medical Equipment Procedure Code Equipment Code Equipment Origin al Text Equipment Identifier Dates Colonoscopy MARKER,ENDO SPOT REFUGIO INK FDA Start: 01-11-2025 Colonoscopy MARKER,ENDO SPOT REFUGIO INK FDA Start: 01-11-2025 Colonoscopy MARKER,ENDO SPOT REFUGIO INK FDA Start: 01-11-2025 Colonoscopy MARKER,ENDO SPOT REFUGIO INK FDA Start: 01-11-2025 Colonoscopy MARKER,ENDO SPOT REFUGIO INK FDA Start: 01-11-2025 Bare-metal carot id artery stent [id number] FDA Start: 07-12-2024 Goals Date Patient Goal Desired Activity /State Functional Status Date Assessment Result Facility 07-13-2024 Functional status Ambulates;Bath room Privilege [facility] Work Phone: 07-07-2023 Functional status Ambulates [facility] Work Phone: 09-02-2010 LP-IR Score LP-IR Score 39 [facility] Work Phone: Comment on above: The LP-IR Score comb jase information from lipoproteinparticle concentration and size to give improvedassessment of insulin resistance and diabetes risk.Small LDL-P, LDL Particle Size, HDL-Particle, andLP-IR Score have been validated by [employer]but not cleared by US FDA; the clinical utilityof these test results has not been fully established.INSULIN RESISTANCE MARKER <--Insulin Sensitive Insulin Resistant--> Percentile in Reference PopulationInsulin Resistance ScoreLP-IR Score Low 25th 50th 75th High <27 27 45 63 >63 PATIENT WAS FASTINGP ERFORMED BY: S7 QRcao Fks1541 [facility] [id number] BY: [facility] [id number] Information: [id number] Mental Status Date Assessment Result Facility 01-11-2025 Cognitive function Voice/Name [facility] Work Phone: 12-29-2024 Cognitive function Voice/Name [facility] Work Phone: 07-13-2024 Cognitive function Voice/Name [facility] Work Phone: 07-15-2023 Cognitive function Voice/Name [facility] Work Phone: 07-07-2023 Cognitive function Touch/Shaking [facility] Work Phone: 07-06-2023 Cognitive function Level Of Cons ciousness Awake;Alert;Appropriate;Follow s Commands;Responds to vocal stimuli [facility] Work Phone: 09-12-2021 Cognitive function Level Of Cons ciousness Awake;Alert;Appropriate;Follow s Commands [facility] Work Phone: Clinical Notes 2022 to 01-11-2025 Note Date & Type Note Facility 01-11-2025 Note [facility] 12-27-2024 Radiology Diagnostic study note [facility] Imaging Services [address], [place] [id number] CTA Chest W/WO Contrast MR#: [id number] Acct: [id number] Name: JOHNNIE QUIJANO Rep #: [id number] : 1940 M 84 From: Marina Rivers MD PCP: Dr. J Luis Mcgill MD Status: [facility] Study:CTA Chest W/WO Contrast Date of Exam: 12/27/24 Exam# [id number] Ordering Dr: J Luis Mcgill MD PROCEDURE: CTA CHEST W/WO CONTRAST 12/27/2024 REASON FOR EXAM: SHORTNESS OF BREATH TECHNIQUE: Procedure Code: CTCTACHWW Modality: CT Procedure: CTA CHEST W/WO CONTRAST Multiplanar Sagittal and Coronal images were obtained. CONTRAST: 100 mL of Isovue 370 One or more dose reduction techniques were used (e.g., Automated exposure control, adjustment of the mA and/or kV according to patient size, use of iterative reconstruction technique). RADIATION DOSE SUMMARY: DLP: 248 mGycm COMPARISON: None FINDINGS: PULMONARY ARTERIES: No evidence of pulmonary embolism. LUNGS AND PLEURA: No large focal consolidations. No definite pulmonary edema. Scattered numerous small pulmonary nodular densities and tree-in-bud densities likely reflective of atypical pneumonia and/or postinflammatory etiology. Scattered septic emboli, metastatic disease, and/or mucoid impaction not entirely excluded under appropriate clinical context. Trace left base effusion. No pneumothorax. MEDIASTINUM: Prominent mediastinal lymph nodes.. The heart shows no acute findings. Extensive coronary atherosclerosis. Moderate atherosclerosis of thoracic aorta most prominent at lower thoracic descending aorta best seen on series 2, image 60. The aorta shows no acute findings. The pulmonary trunk, and branches of the vessels in the mediastinum are within normal limits. SUPRACLAVICULAR AND AXILLARY: No abnormalities seen in these regions. No mass or significant lymphadenopathy. UPPER ABDOMEN: The visualized upper abdomen is unremarkable. BONES AND SOFT TISSUES: The ribs are unremarkable. The visualized spine shows no significant acute findings. No focal bony mass lesions noted. The subcutaneous soft tissues are unremarkable. CT/CTA Chest W/WO Contrast IMPRESSION: No acute pulmonary emboli. No large focal consolidations. Scattered numerous small pulmonary nodular densities and tree-in-bud densities likely reflective of atypical pneumonia, postinflammatory etiology, septic emboli, metastatic disease, and/or mucoid impaction under appropriate clinical context. Appearance favors septic emboli. Reading Location: [id number] CC: Dr. J Luis Mcgill MD ~ Tire Service Supervisor: Signed [facility] 12-27-2024 Radiology Diagnostic study note [facility] Imaging Services [address] [place] [address] Chest PA and Lateral MR#: [id number] Acct: [id number] Name: JOHNNIE QUIJANO Rep #: [id number] : 1940 M 84 From: Oib Cramer MD PCP: Dr. J Luis Mcgill MD Status: [facility] Study:Chest PA and Lateral Date of Exam: 12/27/24 Exam# [id number] Ordering Dr: J Luis Mcgill MD PROCEDURE: CHEST PA AND LATERAL 12/27/2024 REASON FOR EXAM: SOB TECHNIQUE: Procedure Code: RADCXR Modality: DX Procedure: CHEST PA AND LATERAL COMPARISON: Two-view chest, 05/20/2024. FINDINGS: There is cardiomegaly, pulmonary venous hypertension and pulmonary interstitial edema consistent with congestive heart failure. There are no pleural effusions. RAD/Chest PA and Lateral IMPRESSION: Congestive heart failure. Reading Location: [id number] CC: Dr. J Luis Mcgill MD ~ [employer] Service Supervisor: Signed [facility] Work Phone: 10-20-2024 Progress note [facility] 10-20-2024 Progress note Note Date/Time October 20, 2024 10:05am [facility] [place] [address] OFFICE VISIT Date of Service: 10/20/24 MR#: [id number] Acct: [id number] Name: JOHNNIE QUIJANO Rep #: [id number] : 1940 Provider: Dr. Toño Irvin MD Age/Sex: 84/M Location: [facility] Status: Signed Intake Vital Signs 08/05/24 12:59 10/20/24 09:42 Height 5 ft 8 in 5 ft 8 in Weight: 150 lb 2 oz BMI 22.8 Intake Visit Reasons: RIGHT BICEP/LEFT ELBOW Accompanied by: Is patient in pain?: Yes (5-6) Allergies naproxen (From Aleve) Allergy (Unknown, Verified 10/20/24 09:44) palpitaions, SOB aspirin Allergy (Verified 10/20/24 09:44) Shortness of breath ibuprofen Allergy (Verified 10/20/24 09:44) Other Medications ?Medication ?Instructions ?Recorded ?Confirmed ?Type albuterol sulfate 90 mcg/actuation 1 - 2 puff inhalati on Q4H PRN PRN 05/02/14 10/20/24 Rx aerosol inhaler (Ventolin HFA) Wheezing ##1 montelukast 10 mg tablet 10 mg PO DAILY LUNGS 5 10/20/24 History (Singulair) acetaminophen 325 mg capsule 325 mg PO TID PRN fever o r pain 11/20/21 10/20/24 History (Tylenol) mirtazapine 7.5 mg tablet 7.5 mg PO QHS RLS 04/11/24 0 10/20/24 History losartan 100 mg tablet 100 mg PO QDAY BP #90 tabs 0 04/28/24 10/20/24 Rx atorvastatin 40 mg tablet 40 mg PO QHS CHOLESTEROL 10/20/24 History nitroglycerin 0.4 mg sublingual 0.4 mg sublingual Q5M PRN chest 06/03/24 10/20/24 History tablet pain amlodipine 10 mg tablet 10 mg PO QDAY BP #90 tabs 10/20/24 Rx prasugrel HCl 10 mg tablet 10 mg PO QDAY #30 tabs 05/0 10/1410/20/24 Rx isosorbide mononitrate 30 mg 30 mg PO QAM HEART #30 ta bs 10/18/24 10/20/24 Rx tablet,extended release 24 hr Have you fallen in the past year?: No PFS Medical History (Updated 10/20/24 @ 10:00 by Gerson Irvin MD) Tear of right biceps muscle Wears hearing aid Wears dentures Wears glasses High cholesterol Easy bruising Restless legs Non-smoker Shortness of breath on exertion History of echocardiogram History of stress test Cardiology follow-up encounter Left lateral epicondylitis Vitamin D deficiency Iron deficiency anemia Hiatal hernia Hyperlipidemia Essential (primary) hypertension Bilateral carpal tunnel syndrome Chest pain CVA (cerebral vascular accident) Benign prostatic hyperplasia without urinary obstruction Diverticulitis Syncope and collapse Asthma Cubital tunnel syndrome on left Cervical radiculopathy Cervical strain Surgical History History of transcarotid artery revascularization (TCAR) History of cardiac catheterization Hx of bilateral cataract extraction History of appendectomy Myringotomy tube status (~2005) Family History Sister Cancer Mother Bleeding disorder Social History household members: spouse housing: condominium number of children: 2 pets and animals: Yes (maltise-dog) Smoking Status: Never smoker alcohol intake: never substance use type: does not use caffeine: Yes Type: coffee Number of servings: 2 HPI RIGHT BICEP/LEFT ELBOW Details: This documentation accurately reflects the service provided and the decisions made by me, Dr. Gerson Irvin MD 10/20/24 0836. Part of today?s visit was documented by [ ], acting as scribe. JOHNNIE QUIJANO is a 84 year old M here today for tear long head of the biceps onthe right side. There was a pop about a week ago he was lifting something. There is mild to moderate pain in the anterior aspect biceps there is a change in the contour of the biceps. Patient [id number]. He is retired. 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 He also has pain on the lateral aspect of the elbow this is been present for the last few months no formal treatment. It is worse with again no lifting the pain is on the lateral aspect of the elbow. No acute injury. Supplemental Info [facility] Imaging Services [address] [place] [address] Elbow min 3 Views MR#: [id number] Acct: [id number] Name: JOHNNIE QUIJANO Rep #: [id number] : 1940 M 84 From: Mike Sinha MD PCP: Dr. J Luis Mcgill MD Status: REG CLI Study: Elbow min 3 Views Date of Exam: 06/15/24 Exam# [id number] Ordering Dr: J Luis Mcgill MD EXAM: Elbow minimum three views CLINICAL HISTORY: Pain COMPARISON: None available TECHNIQUE: Three views left elbow FINDINGS: No fracture, dislocation or joint effusion. The joint spaces appear within limits. Moderate appearing spurring, osteophyte formation noted. No sclerosis or osseous lesion identified. RAD/Elbow min 3 Views IMPRESSION: No fracture, dislocation or joint effusion. The joint spaces appear within limits. Osteoarthrosis with moderate appearing spurring, osteophyte formation noted. Reading Location: ANU-[id number]-CG I independently reviewed the imaging. Concur with radiologist report. Coding Level of Care Code Attention General Education Instructor Diagnoses Left lateral epicondylitis M77.12 Tear of right biceps muscle S46.211A Comment 52642 and cpt inject elbow tendon Assessment and Plan Assessment and Plan (1) Left lateral epicondylitis: Status: Acute Plan: 84-year-old man with left elbow lateral epicondylitis. Counseled on diagnosis prognosis of treatment options. He wants to start with cortisone injection and will follow-up as needed. Tennis elbow, or lateral epicondylitis, can be treated through both non-surgicaland surgical options. Non-surgical treatments often include rest, ice application, physical therapy, anti-inflammatory medications, and the use of braces to alleviate stress on the elbow. In more severe cases, corticosteroid injections or platelet-rich plasma (PRP) therapy might be considered to promote healing. If these conservative methods fail, surgical intervention may be necessary. Surgical options typically involve removing damaged tissue or repairing tendons through either traditional open surgery or minimally invasive arthroscopic techniques. The choice between non-surgical and surgical treatmentsdepends on the severity of the condition and the patient's response to initial therapies. Left elbow lateral epicondyle cortisone injection We discussed the pros and cons risks and benefits of going ahead with left elbowlateral epicondyle cortisone injection. The risks include but are not limited to infection, pain, acute flare reaction, stiffness, bleeding, damage to surrounding structures, worsening arthritis or damage to the cartilage. The patient wished to proceed. The lateral aspect of the elbow was prepped with chlorhexidine in the usual sterile fashion. Sterile no touch technique was employed. Used Gebauer spray per bottle instructions. Preprocedure timeout performed. 1 cc of 40 mg/mL Kenalog with 2 cc of 0.25% bupivicaine was injectedat the elbow lateral epicondyle. Bandage placed.The patient tolerated procedurewell. There is no complications. Standard post procedure care instructions were given. Red flag symptoms were discussed in which case to return to clinic immediately or go to the emergency department such as redness, swelling, fever, discharge, drainage, increase pain or other symptoms. (2) Tear of right biceps muscle: Status: Acute Plan: 84-year-old man with a tear in the long head of the biceps tendon at the right shoulder. These are typically treated nonoperatively especially given the patient's age. If the patient has cramping after 3 months of conservative management that option there would be to do a biceps tenodesis this is typicallynot needed as these resolve conservative management generally the pain settles down after 4 to 6 weeks. He understands we will continue to monitor. Clinical Quality Measures Falls Risk Screening/Assistive Devices Have you fallen in the past year?: No Ortho Exam General General: Yes no acute distress Neurologic: Yes alert and Yes oriented x3 Psychologic: Yes reasonable and appropriate Left Elbow Skin/Wound: Yes CDI, No eccymosis, No erythema and No Swelling Test: No Valgus Stress Test, No Varus Stress Test, No TTP Medial Epicondyle, YesTTP Lateral Epicondyle, Yes Pain w/ resist wrist ext and No Pain w/ resist 3rd dig ext ROM: Yes Flexion 0-140, Supination 0-90 and Pronation 0-80 Sensation: Radial: I, Ulnar: I and Median: I Motor: Elbow Extension: 5, Elbow Flexion: 5, EPL: 5, FDP-2: 5 and 1st Dorsal Interosseous: 5 ELBOW: no crepitus Right Shoulder Skin/Wound: Yes CDI, No ecchymosis, No erythema and No swelling Testing: Positive Hawkin's, Neer's, Speed's, TTP Biceps and empty can; Negative TTP AC Joint or Drop Arm SHOULDER: normal motor and sens to ax nerve, and MRU and AIN/PIN There is an obvious Biju deformity. There is a tear of the long head of the biceps apparent. There is some mild tenderness there. His forward elevation strength slightly diminished at 4+/5. 10/20/24 1005 <Electronically signed by Gerson bowling MD> Date _ Gerson Irvin MD Cosigner Signature: Date (if applicable) CC: ~ [facility] Work Phone: 1(897) 279-492407-08-2025 Evaluation note* Diagnosis Onset Date Resolution Status Admit Date Fecal occult blood test positive acu te September 27, 2024 9:57am Iron deficiency anemia acute Ju 2024 9:57am Left lateral epicondylitis acute October 20, 2024 9:33am Tear of right biceps muscle acute October 20, 2024 9:33am [facility] Work Phone: 1(319) 545-106707-08-2025 Evaluation note* Diagnosis Onset Date Resolution Status Admit Date Fecal occult blood test positive acute September 27, 2024 9 :57am Iron deficiency anemia acute 2024 9:57am Left lateral epicondylitis acute October 20, 2024 9:33am Tear of right biceps muscle acute October 20, 2024 9:33am Fecal occult blood test positive acute January 11 11:29am Iron deficiency anemia acute Oc tober 2024 11:29am [facility] Work Phone: 1(232) 501-546707-08-2025 Evaluation note* Diagnosis Onset Date Resolution Status Admit Date Fecal occult blood test positive acute September 27, 2024 9 :57am Iron deficiency anemia acute 2024 9:57am Left lateral epicondylitis acute October 20, 2024 9:33am Tear of right biceps muscle acute October 20, 2024 9:33am Fecal occult blood test positive acute January 11 11:29am Iron deficiency anemia acute Oc tober 2024 11:29am Colon cancer acute December 1:40pm [facility] Work Phone: 1(232) 654-362804-23-2025 [facility] Progress note [facility] Medical Records Department [address] [place] [id number] Progress Note - Surgery 07/13/24 0905 MR#: [id number] Acct: [id number] Name: JOHNNIE QUIJANO Rep #:[id number] : 1940 84 From: Madeleine THAO PCP: Dr. J Luis Mcgill MD Status:ADM I N Location: ICU CVICU20 2-1 Subjective Subjective I saw Mr. Quijano at bedside this morning. He reports he is feeling good, just tired. He reports no significant pain. He was hypotensive following surgery requiring initiation of levophed overnight, he was on 5 mcg when I saw him earlythis morning; able to hold around 9 am. He denies any lightheadedn ess/dizziness. Pharmacy did not have dipyridamole on formulary/in stock so he did not receive this overnight; I was notified this morning. When I saw patient this morning, hementioned he had brought his medicationswith him and I did find his dipyridamole prescription. This was sent to pharmacy who verified it; he was able to start taking this again this morning. Objective Data Objective Data Vital Signs: Vital Signs Temp Pulse Resp BP Pulse Ox O2 Del Method O2 Flow Rate 98.3 F 77 18 132/53 H 98 Room Air 2 07/13/24 08:00 07/13/24 08:00 07/13/24 08:00 07/13/24 08:45 07/13/24 08:00 07/13/24 08:00 07/12/24 11:46 FiO2 25 07/12/24 16:00 Oxygen Flow Rate (L/min) 2 Oxygen Delivery Method Room Air Weight: 156 lb 15.506 oz Body Mass Index (BMI) 23.8 Intake & Output: Intake and Output for Last 24 Hours 07/11/24 07/12/24 07/13/24 23:59 23:59 23:59 Intake Total 2066.45 / 2075.85 1641.65 / 1641.65 Output Total 495 / 495 Balance 2046.45 / 2055.85 1146.65 / 1146.65 Lab / Micro Data 07/13/24 10:10 Labs: Laboratory Results - last 24 hr 07/12/24 08:09: Activated Clotting Time 245 H 07/12/24 08:19: Activated Clotting Time 273 H 07/12/24 08:53: Activated Clotting Time 233 H 07/13/24 05:40: WBC 9.1, RBC 3.27 L, Hgb 7.7 L, Hct 25.2 L, MCV 77.1 L, MCH 23.5L, MCHC 30.6 L, RDWStd Deviation 49.2 H, RDW Coeff of Heriberto 17.7 H, Plt Count 278, MPV 9.7, Immature Gran % (Auto) 0.800, Neut % (Auto) 72.1 H, Lymph % (Auto)15.1 L, Hitchcock % (Auto) 10.3 H, Eos % (Auto) 1.4, Baso % (Auto) 0.3, Absolute Neuts (auto) 6.5, Absolute Lymphs (auto) 1.37, Nucleated RBC % 0 Physical Exam Const alert, oriented x3 and no apparent distress General Appearance: cooperative and comfortable HEENT normocephalic, head/scalp atraumatic, hearing grossly normal bilaterally, external ears normal and external nose normal Eyes EOMs intact bilaterally General Eye: normal appearance of both eyes Neck Neck Narrative: L neck incision site with skin glue intact, no dehiscence. Mild ecchymosis, minimal swelling. No hematoma, soft to palpation. DOMINICK drain with mild serosanguineous output. Resp normal respiratory effort, normal air movement, no retractions and no use of accessory muscles Effort and Inspection: able to speak in complete sentences; Negative for labored, grunting or stridor Cardio regular rate and regular rhythm Skin no rashes or lesions noted Neuro oriented x3, CN's II-XII intact bilaterally, moves all extremities and no focal motor deficits Speech: speech normal Psych mental status grossly normal Appearance: grossly normal Attitude: calm and engaged Activity / Motor Behavior: appropriate eye contact Speech: normal speech Assessment & Plan Assessment/Plan (1) Stenosis of left internal carotid artery: PLAN: Plan He is POD#1 from L TCAR. Incision site satisfactory in appearance without hematoma. I removed DOMINICK drain without issue, he tolerated this well. Levophed was held starting around 9 am; will continue to monitor blood pressuresthrough the afternoon. Continue to hold home antihypertensive medicaitons. Continue Effient and Dipyridamole. Will plan for him to ambulate with nursing/PT. Possible discharge later this afternoon pending blood pressure stability. 07/13/24 1203 Cosigner Signature (if applicable): 07/13/24 1546 CC: ~ Signed [facility]04-23-2025 Progress note Author Madeleine Centeno [facility] Note Date/Time July 13, 2024 3:4 6pm [facility] Medical Records Department [address] [place] [address] Progress Note - Surgery 07/13/24 0905 MR#: [id number] Acct: [id number] Name: JOHNNIE QUIJANO Rep #:[id number] : 1940 84 From: Madeleine THAO PCP: Dr. J Luis Mcgill MD Status:ADM I N Location: ICU CVICU20 2-1 Subjective Subjective I saw Mr. Quijano at bedside this morning. He reports he is feeling good, just tired. He reports no significant pain. He was hypotensive following surgery requiring initiation of levophed overnight, he was on 5 mcg when I saw him earlythis morning; able to hold around 9 am. He denies any lightheadedness/dizziness. Pharmacy did not have dipyridamole on formulary/in stock so he did not receive this overnight; I was notified this morning. When I saw patient this morning, hementioned he had brought his medications with him and I did find his dipyridamole prescription. This was sent to pharmacy who verified it; he was able to start taking this again this morning. Objective Data Objective Data Vital Signs: Vital Signs Temp Pulse Resp BP Pulse Ox O2 Del Method O2 Flow Rate 98.3 F 77 18 132/53 H 98 Room Air 2 07/13/24 08:00 07/13/24 08:00 07/13/24 08:00 07/13/24 08:45 07/13/24 08:00 07/13/24 08:00 07/12/24 11:46 FiO2 07/12/24 16:00 Oxygen Flow Rate (L/min) 2 Oxygen Delivery Method Room Air Weight: 156 lb 15.506 oz Body Mass Index (BMI) 23.8 Intake & Output: Intake and Output for Last 24 Hours 07/11/24 07/12/24 07/13/24 23:59 23:59 23:59 Intake Total 2066.45 / 2075.85 1641.65 / 1641.65 Output Total 495 / 495 Balance 2046.45 / 2055.85 1146.65 / 1146.65 Lab / Micro Data 07/13/24 10:10 Labs: Laboratory Results - last 24 hr 07/12/24 08:09: Activated Clotting Time 245 H 07/12/24 08:19: Activated Clotting Time 273 H 07/12/24 08:53: Activated Clotting Time 233 H 07/13/24 05:40: WBC 9.1, RBC 3.27 L, Hgb 7.7 L, Hct 25.2 L, MCV 77.1 L, MCH 23.5L, MCHC 30.6 L, RDW Std Deviation 49.2 H, RDW Coeff of Heriberto 17.7 H, Plt Count 278, MPV 9.7, Immature Gran % (Auto) 0.800, Neut % (Auto) 72.1 H, Lymph % (Auto)15.1 L, Hitchcock % (Auto) 10.3 H, Eos % (Auto) 1.4, Baso % (Auto) 0.3, Absolute Neuts (auto) 6.5, Absolute Lymphs (auto) 1.37, Nucleated RBC % 0 Physical Exam Const alert, oriented x3 and no apparent distress General Appearance: cooperative and comfortable HEENT normocephalic, head/scalp atraumatic, hearing grossly normal bilaterally, external ears normal and external nose normal Eyes EOMs intact bilaterally General Eye: normal appearance of both eyes Neck Neck Narrative: L neck incision site with skin glue intact, no dehiscence. Mild ecchymosis, minimal swelling. No hematoma, soft to palpation. DOMINICK drain with mild serosanguineous output. Resp normal respiratory effort, normal air movement, no retractions and no use of accessory muscles Effort and Inspection: able to speak in complete sentences; Negative for labored, grunting or stridor Cardio regular rate and regular rhythm Skin no rashes or lesions noted Neuro oriented x3, CN's II-XII intact bilaterally, moves all extremities and no focal motor deficits Speech: speech normal Psych mental status grossly normal Appearance: grossly normal Attitude: calm and engaged Activity / Motor Behavior: appropriate eye contact Speech: normal speech Assessment & Plan Assessment/Plan (1) Stenosis of left internal carotid artery: PLAN: Plan He is POD#1 from L TCAR. Incision site satisfactory in appearance without hematoma. I removed DOMINICK drain without issue, he tolerated this well. Levophed was held starting around 9 am; will continue to monitor blood pressuresthrough the afternoon. Continue to hold home antihypertensive medicaitons. Continue Effient and Dipyridamole. Will plan for him to ambulate with nursing/PT. Possible discharge later this afternoon pending blood pressure stability. 07/13/24 1203 <Electronically signed by Madeleine THAO> Cosigner Signature (if applicable): 07/13/24 1546 <Electronically signed by Kelton Blakely MD> CC: ~ Signed [facility] Work Phone: 1(854) 217-479904-22-2025 Procedure note [facility] Medical Records Department [address] [place] [address] Operative Report 07/12/24 1108 MR#: [id number] Acct: [id number] Name: JOHNNIE QUIJANO Rep #:[id number] : 1940 84 From: Kelton Blakely MD PCP: Dr. J Luis Mcgill MD Status:ADM I N Location: ICU [place] [address] 2-1 Operative Report (Standard) Operative Information Date of Procedure: 07/12/24 Pre-Operative Diagnosis: left carotid stenosis Post-Operative Diagnosis: same Surgery/Procedure Performed: left carotid stent, trans-carotid paleontological helper: Yes Merry Go Round Attendant: Moise Short Tasks completed by first aid nurse: Opening, Closing, Opening & closing and Retracting Type of Anesthesia: General RN Documented Start/Stop Times: Operation Date: 07/12/24 08:00 Case Time Into Pre-Op 07/12/24 06:03 Out of Pre-Op 07/12/24 07:48 Into Recovery 07/12/24 10:42 Out of Recovery 07/12/24 11:45 Procedure Start Time: 08:50 Procedure Stop Time: 10:00 Select all DRAINS/GRAFTS/IMPLANTS that apply: Drains Drain details: 19 Fr DOMINICK and Implanted device Implanted device details: En route 9-7x40 stent Estimated Blood Loss: 17 Specimen collected: No Description of surgery: HPI: Patient is an 84-year-old male with severe left internal carotid artery stenosis which is asymptomatic in nature. He has been evaluated and found to beappropriate for carotid artery stenting. Hepresents now for elective transcarotid artery stenting. Description of procedure: Upon obtaining form consent and verification correct patient procedure site the patient was taken to the Casework Specialist was placed under general anesthesia. He was then positionedprepped and draped in usual sterile fashion time out was performed. Transverse incision was made 1 fingerbreadth superior to the clavicle and Bovie cautery was dissect down through the subcutaneous tissue to the level the platysma. The platysma was divided and self-retaining retractors put in position then further dissection carried down to the sternocleidomastoid which was split between the sternal and clavicular heads. Self-retaining retractors then moved deeper into the wound and sharp dissection used to dissect free the jugular vein with sidebranches ligated with medium clips and divided.The jugular vein was then retracted laterally exposing the common carotid artery. Sharp dissection used to dissect free the vessel circumferentially proximal in the field with care taken to identify and protect adjacent nerve structures. A writing was used to place a vessel loop and the patient wasthen heparinized allowed to circulate for 3 minutes after which an ACT was obtained. Further heparin dosing was then made based on subsequent ACT results. A 5-0 Prolene pursestring was then placed atthe intended access site. Under ultrasound guidance the right common femoral vein accessed with a mi cropuncture needle wire. This was then exchanged for micropuncture sheath through which a J-wire was advanced and the micropuncture sheath exchanged for the 8 Samoan venous return sheath. After adequate ACT results were obtained we then used a micropuncture needle wire to access the common carotid artery in antegrade fashion. This then exchanged for micropuncture sheath through which hand-injection carotid angiography was performed revealing satisfactory positioning with no extravasation or dissection. Through the micropuncture sheath the J-wire was advanced stopping short of the carotid bifurcation. The micropuncture sheath was exchanged for the 8 Samoan flow reversal sheath which was advanced without resistance. This was then secured into position and the flow reversal conduit attached and adequate flow reversal confirmed. Oblique view subtraction angiography through the sheath was performed revealing satisfactory sheath positioning. The proximal common carotid artery was then occluded with vessel loop and adequate flow reversal again confirmed. Repeat imaging was then obtained and the location of the internal carotid artery origin and the lesion marked. Using an 014 wire we were able to traverse the origin of the internal carotid artery crossing the lesion into the distal vessel beyond. A 5 x 35 mm angioplasty was advanced in the position and inflated to nominal for 30 seconds then deflated withdrawn. A tapered 9 - 7 x 40 en route stent was then advanced in position centered on the lesion and deployed. Flow reversal was continued for an additional 3 minutes after which repeat angiography was performed revealing satisfactory stent positioning with no extravasation or di ssection. There was no plaque prolapse through the stent struts and there was no significant residual stenosis. The wire was then withdrawn and the proximal carotid vessel loop released after which 2additional minutes of flow reversal was performed. The flow reversal tubing was then detached and blood return via the venous sheath after which the sheath withdrawn a minute pressure held for 10 minutes until hemostasis was obtained. The carotid pursestring suture was then secured as the sheath was withdrawn and the heparin was then versed with protamine. The incision was theninspected for hemostasis and a 19 Samoan channel DOMINICK placed via separate stab incision. The incision closed with 3-0 Vicryl, 4 Monocryl and Dermabond for theskin. At the conclusion the case the patient was awakened anesthesia and taken to the recovery room moving all extremities to command with cranial nerves intact. Surgical Findings: see above Complications Complications: No 07/12/24 1729 Cosigner Signature (if applicable): CC: Dr. Kelton Blakely MD; Dr. J Luis Mcgill MD~ Signed [facility]04-22-2025 Consult note Author Marina Matute [facility] Note Date/Time July 12, 2024 11: 54am [facility] Medical Records Department [address] [place] [address] Anesthesia Postop Eval II 07/12/24 1154 MR#: [id number] Acct: [id number] Name: JOHNNIE QUIJANO Rep #:[id number] : 1940 84 From: Marina Matute PCP: Dr. J Luis Mcgill MD Status:ADM I N Y Race: C Location: ICU [facility]ICU Anesthesia Postop Eval I Sum Postop Eval Completion status Anesthesia document: Postop Eval 1 completed: Yes Anesthesia Postop Eval I Summary Anesthesia Postop Eval I Summary: Anesthesia Postop Eval I: Assessment Summary Airway patent Yes 07/12/24 10:52 [email or web address] Spontaneous unlabored Yes 07/12/24 10:52 [email or web address] [email or web address] respirations Mental status Calm 07/12/24 10:52 [email or web address] nausea No 07/12/24 10:52 [email or web address] [email or web address] Vomiting No 07/12/24 10:52 [email or web address] [email or web address] Anesthesia Postop Eval I: Fluid Summary Crystalloid volume administer 1,700 07/12/24 10:52 [email or web address] [email or web address] (ml) Colloids volume administered ( ml) Blood Product volume administered (ml) Total IV fluid infused 1,700 07/12/24 10:52 [email or web address] [email or web address] Anesthesia Postop Eval I: Summary Notes Anesthesia Complication No 07/12/24 10:52 [email or web address] [email or web address] Anesthesia Complication Comment: Post-operative progress note Anesthesia: Postop Eval II Evaluation Mental status: Awake and Calm Pain Level: 0 nausea: No Vomiting: No Complications Anesthesia Complication: No 07/12/24 1154 <Electronically signed by Marina Matute > Date _ Marina Matute Cosigner Signature: Date CC: ~ Signed [facility] Work Phone: 1(357) 186-353404-22-2025 Consult note Author Reynold Walton [facility] Note Date/Time July 12, 2024 10: 52am [facility] Medical Records Department [address] [place] [address] Anesthesia Postop Eval I 07/12/24 1051 MR#: [id number] Acct: [id number] Name: JOHNNIE QUIJANO Rep #:[id number] : 1940 84 From: Reynold Walton CRNA PCP: Dr. J Luis Mcgill MD Status:ADM I N Y Race: C Location: ICU [facility] Anesthesia: Postop Eval I Current Vital Signs Temperature: 96.5 F Pulse Rate: 71 Blood Pressure: 133/50 Respiratory Rate: 20 Pulse Ox: 100 Oxygen Delivery Method: Room Air Assessment Airway patent: Yes Spontaneous unlabored respirations: Yes Mental status: Calm nausea: No Vomiting: No Anesthesia Complication: No Fluid Hydration Crystalloid volume administer (ml): 1,700 Total IV fluid infused: 1,700 Progress Note Anesthesia document: Postop Eval 1 completed: Yes 07/12/24 1052 <Electronically signed by Reynold bailey CRNA> Date _ Reynold Walton RESEARCH NUTRITIONIST Cosigner Signature: Date CC: ~ Signed [facility] Work Phone: 1(302) 802-477104-22-2025 Consult note [facility] Medical Records Department [address] [place] [address] Anesthesia Postop Eval II 07/12/24 1154 MR#: [id number] Acct: [id number] Name: JOHNNIE QUIJANO Rep #:[id number] : 1940 84 From: Marina Matute PCP: Dr. J Luis Mcgill MD Status:ADM I N Y Race: C [facility]esthesia Postop Eval I Sum Postop Eval Completion status Anesthesia document: Postop Eval 1 completed: Yes Anesthesia Postop Eval I Summary Anesthesia Postop Eval I Summary: Anesthesia Postop Eval I: Assessment Summary Airway patent Yes 07/12/24 10:52 [email or web address] [email or web address] Spontaneous unlabored Yes 07/12/24 10:52 RESEARCH [email or web address] respirations Mental status Calm 07/12/24 10:52 [email or web address] [email or web address] nausea No 07/12/24 10:52 RESEARCH [email or web address] Vomiting No 07/12/24 10:52 RESEARCH [email or web address] Anesthesia Postop Eval I: Fluid Summary Crystalloid volume administer 1,700 07/12/24 10:52 RESEARCH [email or web address] (ml) Colloids volume administered ( ml) Blood Product volume administered (ml) Total IV fluid infused 1,700 07/12/24 10:52 RESEARCH [email or web address] Anesthesia Postop Eval I: Summary Notes Anesthesia Complication No 07/12/24 10:52 [email or web address] [email or web address] Anesthesia Complication Comment: Post-operative progress note Anesthesia: Postop Eval II Evaluation Mental status: Awake and Calm Pain Level: 0 nausea: No Vomiting: No Complications Anesthesia Complication: No 07/12/24 1154 > Date _ Marinarussell Ruizjeffrey Carverigntrell Signature: Date CC: ~ Signed [facility]04-22-2025 Consult note [facility] Medical Records Department [address] [place] [address] Anesthesia Postop Eval I 07/12/24 1051 MR#: [id number] Acct: [id number] Name: JOHNNIE QUIJANO Rep #:[id number] : 1940 84 From: Reynold Walton CRNA PCP: Dr. J Luis Mcgill MD Status:ADM I N Y Race: C Location: ICU [facility] Anesthesia: Postop Eval I Current Vital Signs Temperature: 96.5 F Pulse Rate: 71 Blood Pressure: 133/50 Respiratory Rate: 20 Pulse Ox: 100 Oxygen Delivery Method: Room Air Assessment Airway patent: Yes Spontaneous unlabored respirations: Yes Mental status: Calm nausea: No Vomiting: No Anesthesia Complication: No Fluid Hydration Crystalloid volume administer (ml): 1,700 Total IV fluid infused: 1,700 Progress Note Anesthesia document: Postop Eval 1 completed: Yes 07/12/24 1052 y RESEARCH NUTRITIONIST> Date _ Reynold Walton RESEARCH NUTRITIONIST Cosigner Signature: Date CC: ~ Signed [facility]04-22-2025 History and physical note Author Kelton Blakely [facility] Note Date/Time July 12, 2024 8:3 2am [facility] Medical Records Department [address] [place] [address] History & Physical Exam 07/12/24 0831 MR#: [id number] Acct: [id number] Name: JOHNNIE QUIJANO Rep #:[id number] : 1940 84 From: Kelton Blakely MD PCP: Dr. J Luis Mcgill MD Status:ADM I N Location: [facility] AC-TB A-2 History and Physical Allergies naproxen (From Aleve) Allergy (Unknown, Verified 06/27/24 14:01) palpitaions, SOBaspirin Allergy (Verified 06/27/24 14:01) Shortness of breathibuprofen Allergy (Verified 06/27/24 14:01) Other Medications ?Medication ?Instructions ?Recorded ?Confirmed ?Type albuterol sulfate 90 mcg/actuation 1 - 2 puff inhalation Q4H PRN PRN 06/27/24 Rx aerosol inhaler (Ventolin HFA) Wheezing ##1 montelukast 10 mg tablet 10 mg PO DAILY 05/02/14 06/27/24 History (Singulair) acetaminophen 325 mg capsule 325 mg PO TID PRN fever or pain 11/20/21 06/27/24 History (Tylenol) mirtazapine 7.5 mg tablet 7.5 mg PO QHS 04/11/24 06/27/24 History losartan 100 mg tablet 100 mg PO QDAY #90 tabs 04/28/24 5 Rx isosorbide mononitrate 30 mg 30 mg PO QAM #30 tabs 05/20/24 06/27/24 Rx tablet,extended release 24 hr atorvastatin 40 mg tablet 40 mg PO QHS 06/03/24 06/27/24 History clopidogrel 75 mg tablet 75 mg PO QDAY 06/03/24 06/27/24 History nitroglycerin 0.4 mg sublingual 0.4 mg sublingual Q5M PRN chest 06/03/24 06/27/24 History tablet pain amlodipine 10 mg tablet 10 mg PO QDAY #90 tabs 06/13/24 06/27/24 Rx Have you fallen in the past year?: No PFSH Medical History Left lateral epicondylitis Vitamin D deficiency Iron deficiency anemia Hiatal hernia Hyperlipidemia Essential (primary) hypertension Chest pain Bilateral carpal tunnel syndrome CVA (cerebral vascular accident) Benign prostatic hyperplasia without urinary obstruction Diverticulitis Syncope and collapse Asthma Cubital tunnel syndrome on left Cervical radiculopathy Cervical strain Surgical History History of appendectomy Myringotomy tube status (~2005) Family History Sister CancerMother Bleeding disorder Social History household members: spouse housing: condominium number of children: 2 pets and animals: Yes (maltise-dog) Smoking Status: Never smoker alcohol intake: never substance use type: does not use caffeine: Yes Type: coffee Number of servings: 2 HPI HPI HPI: JOHNNIE QUIJANO, is a 84 M who presents to the office today for follow up discussions of asymptomatic left carotid stenosis. CTA and duplex correlat; 78% on CT. Denies numbness/weakness/vision loss/speech difficulty. ROS General General: No weight change, appetite, fatigue, colon cancer, breast cancer or weakness HEENT HEENT: No difficulty swallowing, eye injury, eye surgery, swollen glands or hoarseness Endo Endocrine: No thyroid disease, diabetes mellitus, thyroid cancer, Hair loss, heat intolerance or cold intolerance Skin Skin: No rash or changing moles Musc Musculoskeletal: Yes joint pain; No back problems, arthritis, rheumatoid arthritis or gout Cardio Cardiovascular: Yes high blood pressure; No murmur, pacemaker, heart disease, atrial fibrillation, heart attack, heart stent, palpitations, shortness of breath with exertion or chest pain Psych Psychiatric: No depression, anxiety or hearing voices Resp Respiratory: Yes shortness of breath, No sleep apnea, No cough, No COPD, Yes asthma, No emphysema and No wheezing Gastro Gastrointestinal: No abdominal pain, No nausea or vomiting, No diarrhea, No constipation, No blood in stool, No acid reflux, No hemorrhoids, No ulcers, No gallbladder problem and No black,tarry stools Shahbaz Hematologic: Yes blood thinners, No blood disorders, No bleeding, No anemia and No blood clots Neuro Neurologic: No system reviewed and no additional complaints, except as documented, No as per HPI, No abnormal gait, No abnormal hearing, No abnormal movements, No abnormal speech, No behavioral changes, No burning sensations, No confusion, No convulsions, No disequilibrium, No dizziness, No localized weakness, No frequent falls, No headache(s), No lack of coordination, No loss of vision, No memory loss, Yes numbness, No other visual disturbances, Yes radicular pain, No restless legs, No sensory deficit, No syncope, Yes tingling, No tremor(s), No weakness and No other Exam Const General: cooperative, healthy appearing, comfortable, no acute distress and welldeveloped Nutritional Appearance: well nourished Orientation: alert, awake and oriented x3 HENMT Head: normocephalic and atraumatic Ears: hearing grossly normal bilaterally Nose: external nose normal Eyes General: appearance normal, both eyes and all related structures EOM: EOM intact bilaterally Neck Neck: normal visual inspection, full ROM, no lymphadenopathy and trachea midline Thyroid: thyroid normal Lymphatic: no lymphadenopathy noted Resp Effort & Inspection: normal respiratory effort, able to speak in complete sentences, symmetric chest movement, no audible wheezes, not labored, no stridorand no use of accessory muscles Auscultation: clear to auscultation bilaterally Cardio Rate: regular rate Rhythm: regular rhythm Heart Sounds: no murmurs Bruits: carotid bruit on the left Pulses: brachial pulses present and radial pulses present Skin General: no rashes or lesions noted and no erythema Wounds: no wounds Neuro Cranial Nerves: CN's II-XI intact bilaterally and EOM intact bilaterally Speech: speech normal Gait: normal gait Motor: strength 5/5 throughout Sensory Exam: no sensory deficits noted Psych Appearance: grossly normal and well kempt Mental Status: mental status grossly normal Mood: congruent mood Speech and Movement: speech and movement normal Thought Content: normal Judgment: judgment good Coding Level of Care Code Off vis,est,level 3 Diagnoses Stenosis of left internal carotid artery I65.22 Assessment and Plan Assessment and Plan (1) 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 Kelton Blakely MD; Dr. J Luis Mcgill MD~ Signed [facility] Work Phone: 1(608) 688-242604-22-2025 Consult note Author Jonel [facility] Note Date/Time July 12, 2024 7:4 6am [facility] Medical Records Department [address] [place] [address] Pre-Anesthesia Evaluation 07/12/24 0740 MR#: [id number] Acct: [id number] Name: JOHNNIE QUIJANO Rep #:[id number] : 1940 84 From: oJnel Carrero MD PCP: Dr. J Luis Mcgill MD Status:ADM I N Y Race: C Location: [facility]- TBA-2 ASA Classification* ASA Classification ASA Classification: 3 Assessment & Plan Anesthesia* Anesthesia Assessment Anesthesia Assessment: Discussed sedation and/or anesthesia options, risks, benefits, and alternatives with patient/parents/legal guardian/POA. Questions invited. The patient/parents/legal guardian/POA seems to understand and agrees to proceedwith anesthesia plan. Reviewed the physical assessment, medical history, allergy history and patient home medications list prior to surgery/procedure/anesthetic and documented any changes. Performed airway and anesthesia risk assessments. Anesthesia Type Anesthesia Type: General (Patient will have a arterial line for the procedure aswell.) History Source History Obtained from:: Patient and Chart Anesthesia Focused Assessment* Temperature: 98.4 F Pulse Rate: 83 Blood Pressure: 131/60 Respiratory Rate: 18 Pulse Ox: 100 Oxygen Delivery Method: Room Air Airway Assessment Mouth opens: >3 cm Mallampati Score: II Teeth Condition: Dentures (Patient has full upper and lower dentures. They willcome out.) Neck Range of motion (ROM): Limited ROM Focused Labs Anesthesia Preop lab: CBC WBC 10.4 K/mm3 (4.4-11.0) 05/19/24 12:05/19/24 RBC 4.48 M/mm3 (4.6-6.2) L 05/19/24 12:05/19/24 Hgb 10.3 g/dL (13.0-16.5) L 05/19/24 12: 5 Hct 35.1 % (40-54) L 05/19/24 12:05/19/24 Plt Count 438 K/mm3 (150-450) 05/19/24 12:30 05/19/24 CHEMISTRY Potassium 4.2 mmol/L (3.3-5.1) 05/19/24 12:05/19/24 Sodium 140 mmol/L (133-145) 05/19/24 12:30 05/19/24 BUN 10 mg/dL (4-19) 05/19/24 12:30 05/19/24 Creatinine 0.9 mg/dL (0.8-1.3) 05/19/24 12:30 05/19/24 Glucose 103 mg/dL (70-99) H 05/19/24 12:30 05/19/24 TSH 1.150 uIU/mL (0.358-3.740) 02/12/24 11:01/22 COAG Pre-Assessment Diagnosis/Proposed Procedure Planned Operative Procedure(s): (L) LEFT CAROTID ARTERY STENT (IN VOCATIONAL ADVISER WITH OR STAFF, RFNA, ANESTHESIA) Anesthesia History 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 When Was Last Pacemaker Check QUESTION #4 FULL TEXT: You/Your Family Experience fever (hyperthermia) with Anesthesia Last Oral Intake Last Oral intake: Last Oral Intake NPO since 22:00 07/12/24 06:28 Meds taken in AM with sips of Yes 07/12/24 06:28 water? 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 Female No 06/28/24 10:43 HX of Motion Sickness No 06/28/24 10:43 HX of N/V After Surgery No 06/28/24 10:43 Non-Smoker Yes 06/28/24 10:43 Duration of Surgery greater Yes 06/28/24 10:43 than 60 minutes Number of Risk Factors 2 06/28/24 10:43 PONV Score Moderate Risk 06/28/24 10:43 Height & Weight Height & Weight: Anesthesia: Height & Weight Height 5 ft 8 in 07/12/24 06:28 Weight: 70.4 kg 07/12/24 06:28 Body Mass Index (BMI) 23.6 07/12/24 06:28 Respiratory Assessment Respiratory Assessment - milled rubber tender: Respiratory Tract Infection Hx - milled rubber tender Hx Respiratory Tract Infection No 06/28/24 10:43 STOP Sleep Apnea STOP Sleep Apnea - milled rubber tender: STOP Sleep Apnea - milled rubber tender Hx Hypertension No 06/28/24 10:43 Hx Sleep Apnea No 06/28/24 10:43 CPAP BIPAP Do you snore loudly (louder No 06/28/24 10:43 than talking or can be heard Do you often feel tired/ No 06/28/24 10:43 fatigued/ sleepy during daytime? Has anyone observed you stop No 06/28/24 10:43 breathing during sleep? STOP Results Negative 06/28/24 10:43 QUESTION #5 FULL TEXT : Do you snore loudly (louder than talking or can be heard through closed doors)? 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 Specify any problems Hx of Preganancy in last 3 N/A 06/28/24 10:43 Months Nurse Filling Out Transfusion VCHRISTIN 06/28/24 10:43 & Questions: Date: 06/28/24 06/28/24 10:43 Time: 10:44 06/28/24 10:43 Patient unable to answer at this time (ie. confused, unrespo /Reproduction History /Reproductive History - milled rubber tender: /Reproductive Hx- milled rubber tender Hx Now Gestational Age (in weeks): EDC: Hx Hx Para Hx Section SAB Active Medications Active Medications: Current Medications Generic Name Dose Route Start Last Admin Trade Name Jos PRN Reason Stop Dose Admin Sodium Chloride 1,000 mls @ 15 mls/hr 07/12/24 06:55 07/12/24 06:56 IV 15 mls/hr .Q48H SINDI Administration PFSH Medical History Wears hearing aid Wears dentures Wears glasses High cholesterol Easy bruising Restless legs Non-smoker Shortness of breath on exertion History of echocardiogram History of stress test Cardiology follow-up encounter Left lateral epicondylitis Vitamin D deficiency Iron deficiency anemia Hiatal hernia Hyperlipidemia Essential (primary) hypertension Bilateral carpal tunnel syndrome Chest pain CVA (cerebral vascular accident) Benign prostatic hyperplasia without urinary obstruction Diverticulitis Syncope and collapse Asthma Cubital tunnel syndrome on left Cervical radiculopathy Cervical strain Home Medications ?Medication ?Instructions ?Recorded ?Last Taken ?Type albuterol sulfate 90 mcg/actuation 1 - 2 puff inhalati on Q4H PRN PRN 05/02/14 07/11/24 Rx aerosol inhaler (Ventolin HFA) Wheezing ##1 montelukast 10 mg tablet 10 mg PO DAILY LUNGS 5 07/11/24 History (Singulair) acetaminophen 325 mg capsule 325 mg PO TID PRN fever o r pain 11/20/21 Unknown History (Tylenol) mirtazapine 7.5 mg tablet 7.5 mg PO QHS RLS 04/11/24 0 07/11/24 History losartan 100 mg tablet 100 mg PO QDAY BP #90 tabs 0 04/28/24 07/12/24 Rx isosorbide mononitrate 30 mg 30 mg PO QAM HEART #30 ta bs 05/20/24 07/12/24 Rx tablet,extended release 24 hr atorvastatin 40 mg tablet 40 mg PO QHS CHOLESTEROL 07/11/24 History clopidogrel 75 mg tablet 75 mg PO QDAY BLOOD THINNER 06/03/24 07/12/24 History nitroglycerin 0.4 mg sublingual 0.4 mg sublingual Q5M PRN chest 06/03/24 Unknown History tablet pain amlodipine 10 mg tablet 10 mg PO QDAY BP #90 tabs 07/12/24 Rx dipyridamole 50 mg tablet 100 mg (2 x 50 mg) PO Q6H 07/12/24 Rx anticoagulant 30 days #240 tabs Allergy/AdvReac Type Severity Reaction Status Date / Time naproxen (From Aleve) Allergy Unknown palpitaions, Verified 07/12/24 06:24 SOB aspirin Allergy Shortness Verified 07/12/24 06:24 of breath ibuprofen Allergy Other Verified 07/12/24 06:24 Family History Sister Cancer Mother Bleeding disorder Surgical History History of cardiac catheterization Hx of bilateral cataract extraction History of appendectomy Myringotomy tube status (~2005) Social History household members: spouse housing: [facility] number of children: 2 pets and animals: Yes (maltise-dog) Smoking Status: Never smoker alcohol intake: never substance use type: does not use caffeine: Yes Type: coffee Number of servings: 2 Review of Systems (Anesthesia) ROS Narrative System reviewed and no additional complaints, except as documented. 07/12/24 0746 <Electronically signed by Jonel parham MD> Date _ Jonle Carrero MD Cosigner Signature: Date CC: ~ Signed [facility] Work Phone: 1([phone]) 541-512604-22-2025 History and physical note [facility] Medical Records Department [address] [place] [address] History & Physical Exam 07/12/24 0831 MR#: [id number] Acct: [id number] Name: JOHNNIE QUIJANO Rep #:[id number] : 1940 84 From: Kelton Blakely MD PCP: Dr. J Luis Mcgill MD Status:ADM I N Location: [facility] AC-TB A-2 History and Physical Allergies naproxen (From Aleve) Allergy (Unknown, Verified 06/27/24 14:01) palpitaions, SOBaspirin Allergy (Verified 06/27/24 14:01) Shortness of breathibuprofen Allergy (Verified 06/27/24 14:01) Other Medications ?Medication ?Instructions ?Recorded ?Confirmed ?Type albuterol sulfate 90 mcg/actuation 1 - 2 puff inhalation Q4H PRN PRN 06/27/24 Rx aerosol inhaler (Ventolin HFA) Wheezing ##1 montelukast 10 mg tablet 10 mg PO DAILY 05/02/14 06/27/24 History (Singulair) acetaminophen 325 mg capsule 325 mg PO TID PRN fever or pain 11/20/21 06/27/24 History (Tylenol) mirtazapine 7.5 mg tablet 7.5 mg PO QHS 04/11/24 06/27/24 History losartan 100 mg tablet 100 mg PO QDAY #90 tabs 04/28/24 5 Rx isosorbide mononitrate 30 mg 30 mg PO QAM #30 tabs 05/20/24 06/27/24 Rx tablet,extended release 24 hr atorvastatin 40 mg tablet 40 mg PO QHS 06/03/24 06/27/24 History clopidogrel 75 mg tablet 75 mg PO QDAY 06/03/24 06/27/24 History nitroglycerin 0.4 mg sublingual 0.4 mg sublingual Q5M PRN chest 06/03/24 06/27/24 History tablet pain amlodipine 10 mg tablet 10 mg PO QDAY #90 tabs 06/13/24 06/27/24 Rx Have you fallen in the past year?: No PFSH Medical History Left lateral epicondylitis Vitamin D deficiency Iron deficiency anemia Hiatal hernia Hyperlipidemia Essential (primary) hypertension Chest pain Bilateral carpal tunnel syndrome CVA (cerebral vascular accident) Benign prostatic hyperplasia without urinary obstruction Diverticulitis Syncope and collapse Asthma Cubital tunnel syndrome on left Cervical radiculopathy Cervical strain Surgical History History of appendectomy Myringotomy tube status (~2005) Family History Sister CancerMother Bleeding disorder Social History household members: spouse housing: condominium number of children: 2 pets and animals: Yes (maltise-dog) Smoking Status: Never smoker alcohol intake: never substance use type: does not use caffeine: Yes Type: coffee Number of servings: 2 HPI HPI HPI: JOHNNIE QUIJANO, is a 84 M who presents to the office today for follow up discussions of asymptomatic left carotid stenosis. CTA and duplex correlat; 78% on CT. Denies numbness/weakness/vision loss/speech difficulty. ROS General General: No weight change, appetite, fatigue, colon cancer, breast cancer or weakness HEENT HEENT: No difficulty swallowing, eye injury, eye surgery, swollen glands or hoarseness Endo Endocrine: No thyroid disease, diabetes mellitus, thyroid cancer, Hair loss, heat intolerance or cold intolerance Skin Skin: No rash or changing moles Musc Musculoskeletal: Yes joint pain; No back problems, arthritis, rheumatoid arthritis or gout Cardio Cardiovascular: Yes high blood pressure; No murmur, pacemaker, heart disease, atrial fibrillation, heart attack, heart stent, palpitations, shortness of breath with exertion or chest pain Psych Psychiatric: No depression, anxiety or hearing voices Resp Respiratory: Yes shortness of breath, No sleep apnea, No cough, No COPD, Yes asthma, No emphysema and No wheezing Gastro Gastrointestinal: No abdominal pain, No nausea or vomiting, No diarrhea, No constipation, No blood in stool, No acid reflux, No hemorrhoids, No ulcers, No gallbladder problem and No black,tarry stools Shahbaz Hematologic: Yes blood thinners, No blood disorders, No bleeding, No anemia and No blood clots Neuro Neurologic: No system reviewed and no additional complaints, except as documented, No as per HPI, No abnormal gait, No abnormal hearing, No abnormal movements, No abnormal speech, No behavioral changes, No burning sensations, No confusion, No convulsions, No disequilibrium, No dizziness, No localized weakness, No frequent falls, No headache(s), No lack of coordination, No loss of vision, No memory loss, Yes numbness, No other visual disturbances, Yes radicular pain, No restless legs, No sensorydeficit, No syncope, Yes tingling, No tremor(s), No weakness and No other Exam Const General: cooperative, healthy appearing, comfortable, no acute distress and welldeveloped Nutritional Appearance: well nourished Orientation: alert, awake and oriented x3 HENMT Head: normocephalic and atraumatic Ears: hearing grossly normal bilaterally Nose: external nose normal Eyes General: appearance normal, both eyes and all related structures EOM: EOM intact bilaterally Neck Neck: normal visual inspection, full ROM, no lymphadenopathy and trachea midline Thyroid: thyroid normal Lymphatic: no lymphadenopathy noted Resp Effort & Inspection: normal respiratory effort, able to speak in complete sentences, symmetric chest movement, no audible wheezes, not labored, no stridorand no use of accessory muscles Auscultation: clear to auscultation bilaterally Cardio Rate: regular rate Rhythm: regular rhythm Heart Sounds: no murmurs Bruits: carotid bruit on the left Pulses: brachial pulses present and radial pulses present Skin General: no rashes or lesions noted and no erythema Wounds: no wounds Neuro Cranial Nerves: CN's II-XI intact bilaterally and EOM intact bilaterally Speech: speech normal Gait: normal gait Motor: strength 5/5 throughout Sensory Exam: no sensory deficits noted Psych Appearance: grossly normal and well kempt Mental Status: mental status grossly normal Mood: congruent mood Speech and Movement: speech and movement normal Thought Content: normal Judgment: judgment good Coding Level of Care Code Off vis,est,level 3 Diagnoses Stenosis of left internal carotid artery I65.22 Assessment and Plan Assessment and Plan (1) 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 Kelton Blakely MD; Dr. J Luis Mcgill MD~ Signed [facility]04-22-20[facility] Consult note [facility] Medical Records Department [address] [place] [address] Pre-Anesthesia Evaluation 07/12/24 0740 MR#: [id number] Acct: [id number] Name: JOHNNIE QUIJANO Rep #:[id number] : 1940 84 From: Jonel Carrero MD PCP: Dr. J Luis Mcgill MD Status:ADM I N Y Race: C [facility] ASA Classification* ASA Classification ASA Classification: 3 Assessment & Plan Anesthesia* Anesthesia Assessment Anesthesia Assessment: Discussed sedation and/or anesthesia options, risks, benefits, and alternatives with patient/parents/legal guardian/POA. Questions invited. The patient/parents/legal guardian/POA seems to understand and agrees to proceedwith anesthesia plan. Reviewed the physical assessment, medical history, allergy history and patient home medications list prior to surgery/procedure/anesthetic and documented any changes. Performed airway and anesthesia risk assessments. Anesthesia Type Anesthesia Type: General (Patient will have a arterial line for the procedure aswell.) History Source History Obtained from:: Patient and Chart Anesthesia Focused Assessment* Temperature: 98.4 F Pulse Rate: 83 Blood Pressure: 131/60 Respiratory Rate: 18 Pulse Ox: 100 Oxygen Delivery Method: Room Air Airway Assessment Mouth opens: >3 cm Mallampati Score: II Teeth Condition: Dentures (Patient has full upper and lower dentures. They willcome out.) Neck Range of motion (ROM): Limited ROM Focused Labs Anesthesia Preop lab: CBC WBC 10.4 K/mm3 (4.4-11.0) 05/19/24 12:05/19/24 RBC 4.48 M/mm3 (4.6-6.2) L 05/19/24 12:05/19/24 Hgb 10.3 g/dL (13.0-16.5) L 05/19/24 12: 5 Hct 35.1 % (40-54) L 05/19/24 12:05/19/24 Plt Count 438 K/mm3 (150-450) 05/19/24 12:05/19/24 CHEMISTRY Potassium 4.2 mmol/L (3.3-5.1) 05/19/24 12:05/19/24 Sodium 140 mmol/L (133-145) 05/19/24 12:30 05/19/24 BUN 10 mg/dL (4-19) 05/19/24 12:30 05/19/24 Creatinine 0.9 mg/dL (0.8-1.3) 05/19/24 12:30 05/19/24 Glucose 103 mg/dL (70-99) H 05/19/24 12:30 05/19/24 TSH 1.150 uIU/mL (0.358-3.740) 02/12/24 11:01/22 COAG Pre-Assessment Diagnosis/Proposed Procedure Planned Operative Procedure(s): (L) LEFT CAROTID ARTERY STENT (IN VOCATIONAL ADVISER WITH OR STAFF, RFNA, ANESTHESIA) Anesthesia History 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 When Was Last Pacemaker Check QUESTION #4 FULL TEXT: You/Your Family Experience fever (hyperthermia) with Anesthesia Last Oral Intake Last Oral intake: Last Oral Intake NPO since 22:00 07/12/24 06:28 Meds taken in AM with sips of Yes 07/12/24 06:28 water? 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 Female No 06/28/24 10:43 HX of Motion Sickness No 06/28/24 10:43 HX of N/V After Surgery No 06/28/24 10:43 Non-Smoker Yes 06/28/24 10:43 Duration of Surgery greater Yes 06/28/24 10:43 than 60 minutes Number of Risk Factors 2 06/28/24 10:43 PONV Score Moderate Risk 06/28/24 10:43 Height & Weight Height & Weight: Anesthesia: Height & Weight Height 5 ft 8 in 07/12/24 06:28 Weight: 70.4 kg 07/12/24 06:28 Body Mass Index (BMI) 23.6 07/12/24 06:28 Respiratory Assessment Respiratory Assessment - milled rubber tender: Respiratory Tract Infection Hx - milled rubber tender Hx Respiratory Tract Infection No 06/28/24 10:43 STOP Sleep Apnea STOP Sleep Apnea - milled rubber tender: STOP Sleep Apnea - milled rubber tender Hx Hypertension No 06/28/24 10:43 Hx Sleep Apnea No 06/28/24 10:43 CPAP BIPAP Do you snore loudly (louder No 06/28/24 10:43 than talking or can be heard Do you often feel tired/ No 06/28/24 10:43 fatigued/ sleepy during daytime? Has anyone observed you stop No 06/28/24 10:43 breathing during sleep? STOP Results Negative 06/28/24 10:43 QUESTION #5 FULL TEXT : Do you snore loudly (louder than talking or can be heard through closeddoors)? 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 Specify any problems Hx of Preganancy in last 3 N/A 06/28/24 10:43 Months Nurse Filling Out Transfusion VCHRISTIN 06/28/24 10:43 & Questions: Date: 06/28/24 06/28/24 10:43 Time: 10:44 06/28/24 10:43 Patient unable to answer at this time (ie. confused, unrespo /Reproduction History /Reproductive History - milled rubber tender: /Reproductive Hx- milled rubber tender Hx Now Gestational Age (in weeks): EDC: Hx Hx Para Hx Section SAB Active Medications Active Medications: Current Medications Generic Name Dose Route Start Last Admin Trade Name Jos PRN Reason Stop Dose Admin Sodium Chloride 1,000 mls @ 15 mls/hr 07/12/24 06:55 07/12/24 06:56 IV 15 mls/hr .Q48H SINDI Administration PFSH Medical History Wears hearing aid Wears dentures Wears glasses High cholesterol Easy bruising Restless legs Non-smoker Shortness of breath on exertion History of echocardiogram History of stress test Cardiology follow-up encounter Left lateral epicondylitis Vitamin D deficiency Iron deficiency anemia Hiatal hernia Hyperlipidemia Essential (primary) hypertension Bilateral carpal tunnel syndrome Chest pain CVA (cerebral vascular accident) Benign prostatic hyperplasia without urinary obstruction Diverticulitis Syncope and collapse Asthma Cubital tunnel syndrome on left Cervical radiculopathy Cervical strain Home Medications ?Medication ?Instructions ?Recorded ?Last Taken ?Type albuterol sulfate 90 mcg/actuation 1 - 2 puff inhalati on Q4H PRN PRN 05/02/14 07/11/24 Rx aerosol inhaler (Ventolin HFA) Wheezing ##1 montelukast 10 mg tablet 10 mg PO DAILY LUNGS 5 07/11/24 History (Singulair) acetaminophen 325 mg capsule 325 mg PO TID PRN fever o r pain 11/20/21 Unknown History (Tylenol) mirtazapine 7.5 mg tablet 7.5 mg PO QHS RLS 04/11/24 0 07/11/24 History losartan 100 mg tablet 100 mg PO QDAY BP #90 tabs 0 04/28/24 07/12/24 Rx isosorbide mononitrate 30 mg 30 mg PO QAM HEART #30 ta bs 05/20/24 07/12/24 Rx tablet,extended release 24 hr atorvastatin 40 mg tablet 40 mg PO QHS CHOLESTEROL 07/11/24 History clopidogrel 75 mg tablet 75 mg PO QDAY BLOOD THINNER 06/03/24 07/12/24 History nitroglycerin 0.4 mg sublingual 0.4 mg sublingual Q5M PRN chest 06/03/24 Unknown History tablet pain amlodipine 10 mg tablet 10 mg PO QDAY BP #90 tabs 07/12/24 Rx dipyridamole 50 mg tablet 100 mg (2 x 50 mg) PO Q6H 07/12/24 Rx anticoagulant 30 days #240 tabs Allergy/AdvReac Type Severity Reaction Status Date / Time naproxen (From Aleve) Allergy Unknown palpitaions, Verified 07/12/24 06:24 SOB aspirin Allergy Shortness Verified 07/12/24 06:24 of breath ibuprofen Allergy Other Verified 07/12/24 06:24 Family History Sister Cancer Mother Bleeding disorder Surgical History History of cardiac catheterization Hx of bilateral cataract extraction History of appendectomy Myringotomy tube status (~2005) Social History household members: spouse housing: [facility] number of children: 2 pets and animals: Yes (maltise-dog) Smoking Status: Never smoker alcohol intake: never substance use type: does not use caffeine: Yes Type: coffee Number of servings: 2 Review of Systems (Anesthesia) ROS Narrative System reviewed and no additional complaints, except as documented. 07/12/24 0746 dione MUNOZ> Date _ Jonel Carrero MD Cosigner Signature: Date CC: ~ Signed [facility]04-03-2025 Evaluation note* Diagnosis Onset Date Resolution Status Admit Date Left lateral epicondylitis acute June 23, 2024 2:10pm Stenosis of left internal carotid artery chronic June 27, 2024 1:51pm Stenosis of left internal carotid artery chronic July 12, 2024 10:11am Stenosis of left internal carotid artery chronic July 27, 2024 2: 38pm Essential (primary) hypertension acu te August 05, 2024 12:55pm Stenosis of left internal carotid artery chronic August 05, 2024 1 2:55pm Fecal occult blood test positive acu te September 27, 2024 9:57am Iron deficiency anemia acute 2024 9:57am [facility] Work Phone: 1(424) 961-500804-03-2025 Evaluation note* Diagnosis Onset Date Resolution Status Admit Date Left lateral epicondylitis acute June 23, 2024 2:10pm Stenosis of left internal carotid artery chronic June 27, 2024 1:51pm Stenosis of left internal carotid artery chronic July 12, 2024 10:11am Stenosis of left internal carotid artery chronic July 27, 2024 2: 38pm Essential (primary) hypertension acu te August 05, 2024 12:55pm Stenosis of left internal carotid artery chronic August 05, 2024 1 2:55pm Fecal occult blood test positive acu te September 27, 2024 9:57am Iron deficiency anemia acute 2024 9:57am Left lateral epicondylitis acute October 20, 2024 9:33am Tear of right biceps muscle acute October 20, 2024 9:33am [facility] Work Phone: [phone]) [phone] Radiology Diagnostic study note [facility] Imaging Services [address] [place] [address] Elbow min 3 Views MR#: [id number] Acct: [id number] Name: JOHNNIE QUIJANO Rep #: [id number] : 1940 M 84 From: Boaz Sinha MD PCP: Dr. J Luis Mcgill MD Status: [facility] Study:Elbow min 3 Views Date of Exam: Exam# [id number] Ordering Dr: J Luis Mcgill MD EXAM: Elbow minimum three views CLINICAL HISTORY: Pain COMPARISON: None available TECHNIQUE: Three views left elbow FINDINGS: No fracture, dislocation or joint effusion. The joint spaces appear within limits. Moderate appearing spurring, osteophyte formation noted. No sclerosis or osseous lesion identified. RAD/Elbow min 3 Views IMPRESSION: No fracture, dislocation or joint effusion. The joint spaces appear within limits. Osteoarthrosis with moderate appearing spurring, osteophyte formation noted. Reading Location: [facility] CC: Dr. J Luis Mcgill MD ~ [employer]ire Service Supervisor: Signed [facility]03-14-2025 Evaluation note* Diagnosis Onset Date Resolution Status Admit Date Stenosis of left internal carotid artery chronic June 03, 2024 10:37am Left lateral epicondylitis acute June 23, 2024 2:10pm Stenosis of left internal carotid artery chronic June 27, 2024 1:51pm Stenosis of left internal carotid artery chronic July 12, 2024 10:11am Stenosis of left internal carotid artery chronic July 27, 2024 2: 38pm Essential (primary) hypertension acu te August 05, 2024 12:55pm Stenosis of left internal carotid artery chronic August 05, 2024 1 2:55pm [facility] Work Phone: 1(318) 527-635903-04-2025 Radiology Diagnostic study note [facility] Imaging Services [address] [place] [address] CTA Head AND Neck W/ Contrast MR#: [id number] Acct: [id number] Name: JOHNNIE QUIJANO Rep #: [id number] : 1940 M 84 From: Aniceto Pace MD PCP: Dr. J Luis Mcgill MD Status: REG C JANIA Study:CTA Head AND Neck W/ Contrast Date of E xam: 05/23/24 Exam# [id number] Ordering Dr: J Luis Mcgill MD PROCEDURE: CTA HEAD AND NECK W/ CONTRAST REASON FOR EXAM: History of cerebral infarction. TECHNIQUE: CTA imaging of the head and neck from the aortic arch to the skull vertex with intravenous contrast. 3D reconstructions. CONTRAST: COMPARISON: None. # of known CTs in the past 12 months: 0 # of known Cardiac Nuclear Medicine Studies in the past 12 months: 0 FINDINGS: Aortic Arch: Normal size and branching pattern. Mild atherosclerotic plaque. Brachiocephalic and Subclavians: Unremarkable RIGHT Carotid: Right CCA: Unremarkable. Right ICA: Unremarkable. Maximum stenosis (NASCET): % Right ECA: Unremarkable. LEFT Carotid: Left CCA: Unremarkable. Left ICA: Calcific plaque at the origin of the left internal carotid artery causing close to occlusion. Maximum stenosis (NASCET): % Left ECA: Unremarkable. Vertebrals: Codominant. Arise from the subclavians. Both vertebrals form the basilar. RIGHT Vertebral: Unremarkable. LEFT Vertebral: Unremarkable. No intracranial aneurysms or large vascular malformations are identified. Anterior cerebral arteries: Unremarkable. Middle cerebral arteries: Unremarkable. Basilar artery: Unremarkable. Posterior cerebral arteries: Unremarkable. Other major branches of the posterior circulation: Unremarkable. Major venous structures: Unremarkable. Other findings: On the unenhanced brain, there is evidence of encephalomalacia in the posterior medial aspect of the left occipital lobe. Lung apices are clear. Bones are unremarkable. CT/CTA Head AND Neck W/ Contrast IMPRESSION: RIGHT CAROTID: Unremarkable LEFT CAROTID: Tight stenosis/almost total occlusion at the origin of the left internal carotid artery. VERTEBRALS: Unremarkable INTRACRANIAL: Calcific plaque at the level of the cavernous portions of the internal carotid arteries bilaterally. One or more dose reduction techniques were used (e.g., Automated exposure control, adjustment of the mA and/or kV according to patient size, use of iterative reconstruction technique). Reading Location: [id number] CC: Dr. J Luis Mcgill MD ~ [employer] Service Supervisor: Signed [facility]02-28-2025 Radiology Diagnostic study note [facility] Imaging Services [address] [place] [id number] Chest PA and Lateral MR#: [id number] Acct: [id number] Name: JOHNNIE QUIJANO Rep #: [id number] : 1940 84 From: Lore Gale MD PCP: Dr. J Luis Mcgill MD Status: REG C JANIA Study:Chest PA and Lateral Date of Exam: 05/20/24 Exam# [id number] Ordering Dr: Addis Henry PROCEDURE: CHEST PA AND LATERAL REASON FOR EXAM: Chest pain TECHNIQUE: Frontal and lateral views of the chest. COMPARISON: None. FINDINGS: The heart size is normal. There are atherosclerotic calcifications of the thoracic aorta. The lungs are clear. Degenerative changes are identified within the thoracic spine. RAD/Chest PA and Lateral IMPRESSION: No radiographic evidence of acute cardiopulmonary disease Reading Location: [id number] CC: Dr. J Luis Mcgill MD; MASTER Velasquez ~ [employer] Service Supervisor: Signed [facility]01-31-2025 Evaluation note* Diagnosis Onset Date Resolution Status Admit Date Chest pain acute April 22, 2024 10:42am Essential (primary) hypertension acute April 22 10:42am Chest pain acute May 20, 2024 7:57am Essential (primary) hypertension acute May 20, 025 7:57am Stenosis of left internal carotid artery chronic June 03, 2024 10:37am Left lateral epicondylitis acute June 23, 2024 2:10pm Stenosis of left internal carotid artery chronic June 27, 2024 1:51pm Stenosis of left internal carotid artery chronic July 12, 2024 10:11am Stenosis of left internal carotid artery chronic July 27, 2024 2: 38pm Essential (primary) hypertension acute August 05, 2024 1 2:55pm Stenosis of left internal carotid artery chronic August 05, 2024 1 2:55pm [facility] Work Phone: 1(932) 611-783012-26-2024 Evaluation note* Diagnosis Onset Date Resolution Status Admit Date Bilateral carpal tunnel syndrome acute March 17, 024 10:58am Chest pain acute April 22, 2024 10:42am Essential (primary) hypertension acute April 22 10:42am Chest pain acute May 20, 2024 7:57am Essential (primary) hypertension acute May 20, 025 7:57am Stenosis of left internal carotid artery chronic June 03, 2024 10:37am Left lateral epicondylitis acute June 23, 2024 2:10pm Stenosis of left internal carotid artery chronic June 27, 2024 1:51pm Stenosis of left internal carotid artery chronic July 12, 2024 10:11am [facility] Work Phone: 1(577) 943-112512-12-2024 Evaluation note* Diagnosis Onset Date Resolution Status Admit Date Bilateral carpal tunnel syndrome acute March 03, 2 024 11:12am Bilateral carpal tunnel syndrome acute March 17, 2 024 10:58am Chest pain acute April 22, 2024 10:42am Essential (primary) hypertension acute April 22 10:42am Chest pain acute May 20, 2024 7:57am Essential (primary) hypertension acute May 20, 025 7:57am [facility] Work Phone: 1([phone]) 797-402812-12-2024 Evaluation note* Diagnosis Onset Date Resolution Status Admit Date Bilateral carpal tunnel syndrome acute March 03, 2 024 11:12am Bilateral carpal tunnel syndrome acute March 17 024 10:58am Chest pain acute April 22, 2024 10:42am Essential (primary) hypertension acute April 22 10:42am Chest pain acute May 20, 2024 7:57am Essential (primary) hypertension acute May 20, 025 7:57am Stenosis of left internal carotid artery acute June 03, 2024 10:37am [facility] Work Phone: 1(830) 689-658204-16-2024 Progress note Author Kelton Engle [facility] July 07, 2023 2:26pm Note Date/Time July 07, 2023 8:0 2am [facility] Medical Records Department [address] [place] [id number] Progress Note - Hospitalist 07/07/23 0759 MR#: [id number] Acct: [id number] Name: JOHNNIE QUIJANO Rep #:[id number] : 1940 83 From: Kelton Engle DO PCP: Dr. J Luis Mcgill MD Status:ADM I NO Location: [place] [address] Reason for Visit Reason for Visit: Diagnoses Shortness of breath (07/06/23) Chest pain, unspecified (07/06/23) Subjective Subjective Feeling well. Denies chest pain. Objective Data Objective Data Vital Signs: Vital Signs Temp Pulse Resp BP Pulse Ox O2 Del Method 36.4 C L 71 16 149/97 H 98 Room Air 07/07/23 06:32 07/07/23 06:32 07/07/23 06:32 07/07/23 06:32 07/07/23 06:32 07/07/23 06:32 Oxygen Delivery Method Room Air Weight: 66.6 kg Body Mass Index (BMI) 22.3 Lab / Micro Data 07/07/23 06:10 07/07/23 06:10 Labs: Laboratory Results - last 24 hr 07/06/23 17:15: WBC 7.8, RBC 4.90, Hgb 11.7 L, Hct 38.4 L, MCV 78.4 L, MCH 23.9 L, MCHC 30.5 L, RDW Std Deviation 48.5 H, RDW Coeff of Heriberto 17.2 H, Plt Count 339, MPV 10.3, Immature Gran % (Auto) 0.800, Neut % (Auto) 91.9 H, Lymph % (Auto) 5.2 L, Hitchcock % (Auto) 1.5, Eos % (Auto) 0.3, Baso % (Auto) 0.3, Absolute Neuts (auto) 7.2, Absolute Lymphs (auto) 0.41 L, Nucleated RBC % 0, DifferentialComment SEE COMMENT, Platelet Estimate ADEQUATE, RBC Morphology N CHROM, Anisocytosis RARE, Microcytosis RARE, D-Dimer Quant (PE/DVT) 5.91 H*, Sodium 138, Potassium 4.2, Chloride 105, Carbon Dioxide 26.0, Anion Gap 7, BUN 11, Creatinine 1.06, Estim Creat Clear Calc 49.20, Est GFR (MDRD) Af Amer 85, Est GFR (MDRD) Non-Af 71, BUN/Creatinine Ratio 10.4, Glucose 129 H, Calcium 9.1, Troponin I High Sens 175 H* 07/06/23 21:29: Troponin I High Sens 161 H* 07/07/23 06:10: WBC 8.1, RBC 4.43 L, Hgb 10.3 L, Hct 34.2 L, MCV 77.2 L, MCH 23.3 L, MCHC 30.1 L, RDW Std Deviation 46.8 H, RDW Coeff of Heriberto 17.0 H, Plt Count 283, MPV 9.9, Immature Gran % (Auto) 0.700, Neut % (Auto) 85.4 H, Lymph % (Auto) 8.4 L, Hitchcock % (Auto) 5.4, Eos % (Auto) 0.0, Baso % (Auto) 0.1, Absolute Neuts (auto) 7.0, Absolute Lymphs (auto) 0.68 L, Nucleated RBC % 0, Sodium 138, Potassium 4.5, Chloride 107, Carbon Dioxide 27.0, Anion Gap 4 L, BUN 15, Creatinine 0.92, Estim Creat Clear Calc 55.30, Est GFR (MDRD) Af Amer 100, Est GFR (MDRD) Non-Af 83, BUN/Creatinine Ratio 16.3, Glucose 143 H, Calcium 9.0 Radiography Diagnostic Testing: Radiology Impression Chest CTA 07/06/23 18:04 IMPRESSION: No evidence of acute pulmonary emboli to the segmental level. Tiny focal area of consolidation in the lingula, slightly increased in size when compared to prior on 06/19/2023. This most likely represents rounded atelectasis or scarring, however cannot rule out infection or malignancy. Recommend follow-up chest CT in 3 months to ensure stability or resolution. Electronically Signed: Long Juarez MD at 19:09 EDT , Physical Exam Const alert and no apparent distress HEENT head/scalp atraumatic and moist oral mucous membranes Resp normal respiratory effort, no retractions, no use of accessory muscles and clearto auscultation bilaterally Cardio regular rate, regular rhythm, S1 normal heart sound and S2 normal heart sound GI normal to inspection, nondistended, normoactive bowel sounds, soft to palpation,non-tender and non-distended Neuro Sensorium / Orientation: awake and alert Assessment & Plan Assessment/Plan (1) Chest pain: (2) Shortness of breath: PLAN: Plan Unstable angina * trop up to 175, down to 161. * Stress test reported as normal by cardiology. * Likely atypical chest pain due to cough from COVID illness that he had about a month ago. No additional workup at this time. Discharge home. Chronic conditions: * Asthma? Stable, not in exacerbation? Can continue with his home inhalers DVT: Therapeutic Lovenox one-time dose this evening 07/07/23 1426 <Electronically signed by Kelton Engle DO> Cosigner Signature (if applicable): CC: ~ Signed [facility] Work Phone: 1(697) 893-186104-16-2024 History and physical note Author Heriberto Grewal [facility] July 07, 2023 5:53am Note Date/Time July 06, 2023 7:5 5pm [facility] Medical Records Department [address] [place] [address] H&P Exam - Hospitalist 07/06/231938 MR#: [id number] Acct: [id number] Name: JOHNNIE QUIJANO Rep #:[id number] : 1940 83 From: Heriberto peace MD PCP: Dr. J Luis Mcgill MD Status:ADM I NO Location: [place] [id number] HPI - General General Date of Admission: 07/06/23 HPI Narrative JOHNNIE QUIJANO, is a 83 M who presents to the hospital because of an elevated troponin. He denies any chest pain today however on the eighth of this month hedid have an episode of chest pain he is also having shortness of breath. He says that the shortness of breath started before the chest pain as he had COVID about a month ago he does have a history of asthma. The chest pain was more on the right side than on the left and he denies any lightheadedness or dizziness. No recent leg swelling, CT of the chest in the ED was normal. Troponin was little bit more elevated than it was as an outpatient, it went from 163 this morning to 175. No hypoxia. He does have an appointment with pulmonology in July because of his shortness of breath since COVID. The ED physician was able to discuss the case with cardiology who recommended a dose of therapeutic Lovenox this evening and the stress test tomorrow morning. [facility] Medical History Asthma Benign prostatic hyperplasia without urinary obstruction Cervical radiculopathy Cervical strain Cubital tunnel syndrome on left CVA (cerebral vascular accident) Diverticulitis Syncope and collapse Home Medications albuterol sulfate 90 mcg/actuation aerosol inhaler (Ventolin HFA) 1 - 2 puff inhalation Q4H PRN PRN Wheezing ##1 05/02/14 [Rx Last Taken Unknown] montelukast 10 mg tablet (Singulair) 10 mg PO DAILY 05/02/14 [History Last Taken 07/05/23] acetaminophen 325 mg capsule (Tylenol) 325 mg PO TID PRN fever or pain 11/20/21 [History Last Taken Unknown] losartan 25 mg tablet 25 mg PO DAILY 11/20/21 [History Last Taken 07/05/23] baclofen 10 mg tablet 10 mg PO DAILY 07/06/23 [History Last Taken Unknown] benzonatate 200 mg capsule 200 mg PO TID PRN cough 07/06/23 [History Last Taken Unknown] naproxen 250 mg tablet 250 mg PO BID 07/06/23 [History Last Taken Unknown] pantoprazole 40 mg tablet,delayed release 40 mg PO DAILY 07/06/23 [History Last Taken Unknown] prednisone 10 mg tablet 10 mg PO BID 07/06/23 [History Last Taken Unknown] Allergy/AdvReac Type Severity Reaction Status Date / Time naproxen [From Aleve] Allergy Unknown palpitaions, Verified 07/06/23 17:04 SOB aspirin Allergy Shortness Verified 07/06/23 17:04 of breath ibuprofen Allergy Other Verified 07/06/23 17:04 Family History Sister Cancer Mother Bleeding disorder Surgical History History of appendectomy Myringotomy tube status (~2005) Social History (Updated 07/06/23 @ 20:52 by Katie Mar) household members: spouse [facility] number of children: 2 pets and animals: Yes (maltise-dog) Smoking Status: Never smoker alcohol intake: never substance use type: does not use caffeine: Yes Type: coffee Number of servings: 2 ROS Constitutional Constitutional: Denies chills, fatigue, fever(s) or malaise Eyes Eyes: Denies blurry vision ENT HEENT: Denies headache(s) or nasal discharge Cardiovascular Cardiovascular: Denies chest pain, dyspnea on exertion or syncope Respiratory/Chest Respiratory/Chest: Reports shortness of breath at rest and shortness of breath with exertion; Denies cough Gastrointestinal Gastrointestinal: Denies constipation, diarrhea, nausea or vomiting Genitourinary Genitourinary: Denies dysuria Neurologic Neurologic: Denies focal weakness, numbness or tremor(s) Psychiatric Psychiatric: Denies anxiety or depression Vital Signs Vital Signs Vital Signs: 07/06/23 17:04 07/06/23 17:08 07/06/23 17:08 Temperature 97.3 F L Temperature Source Temporal Pulse Rate 54 L Respiratory Rate 18 Respiratory Effort Normal Non-Labored Respiratory Pattern Normal Blood Pressure 175/59 H Blood Pressure Mean 97 Pulse Ox 97 95 Oxygen Delivery Method Room Air Room Air 07/06/23 17:08 07/06/23 19:03 Temperature Temperature Source Pulse Rate 77 Respiratory Rate 18 20 H Respiratory Effort Respiratory Pattern Blood Pressure 155/89 H Blood Pressure Mean 111 Pulse Ox 95 95 Oxygen Delivery Method Room Air Room Air Weight Weight: 150 lb 8 oz Body Mass Index (BMI) 22.8 Physical Exam Narrative General: Alert, Oriented x3, Cooperative, No apparent distress HEENT: Atraumatic, PERRLA, EOMI, Normocephalic, hearing aids Oral: Moist Mucosa Neck: Supple, No JVD Lungs: Diminished, Normal air movement, No rhonchi, No wheeze, No rales Cardiovascular: Regular rate, Regular Rhythm, Normal S1, Normal S2, No murmurs Abdomen: Soft, Non Tender, Non-Distended, No Hepato-splenomegaly Extremities: No edema, Capillary Refill Less than 3 Seconds Skin: No rashes, No breakdown Musculoskeletal: No Tenderness to Palpation of Joints or Extremities Neurological: No focal neurological deficits, Motor Exam 5/5 strength throughout, Sensory exam intact to light touch and pain Psych/Mental Status: Normal Affect, Appropriate Results Lab / Micro Data 07/06/23 17:15 07/06/23 17:15 Labs: Laboratory Results - last 24 hr 07/06/23 17:15: WBC 7.8, RBC 4.90, Hgb 11.7 L, Hct 38.4 L, MCV 78.4 L, MCH 23.9 L, MCHC 30.5 L, RDW Std Deviation 48.5 H, RDW Coeff of Heriberto 17.2 H, Plt Count 339, MPV 10.3, Immature Gran % (Auto) 0.800, Neut % (Auto) 91.9 H, Lymph % (Auto) 5.2 L, Hitchcock % (Auto) 1.5, Eos % (Auto) 0.3, Baso % (Auto) 0.3, Absolute Neuts (auto) 7.2, Absolute Lymphs (auto) 0.41 L, Nucleated RBC % 0, DifferentialComment SEE COMMENT, Platelet Estimate ADEQUATE, RBC Morphology N CHROM, Anisocytosis RARE, Microcytosis RARE, D-Dimer Quant (PE/DVT) 5.91 H*, Sodium 138, Potassium 4.2, Chloride 105, Carbon Dioxide 26.0, Anion Gap 7, BUN 11, Creatinine 1.06, Estim Creat Clear Calc 49.20, Est GFR (MDRD) Af Amer 85, Est GFR (MDRD) Non-Af 71, BUN/Creatinine Ratio 10.4, Glucose 129 H, Calcium 9.1, Troponin I High Sens 175 H* Imaging Radiology Impression Chest CTA 07/06/23 18:04 IMPRESSION: No evidence of acute pulmonary emboli to the segmental level. Tiny focal area of consolidation in the lingula, slightly increased in size when compared to prior on 06/19/2023. This most likely represents rounded atelectasis or scarring, however cannot rule out infection or malignancy. Recommend follow-up chest CT in 3 months to ensure stability or resolution. Electronically Signed: Long Juarez MD at 19:09 EDT , Assessment & Plan Assessment/Plan (1) Chest pain: (2) Shortness of breath: PLAN: Plan 1. Shortness of breath and chest pain rule out/essential HTN ? His shortness of breath is likely related to the fact that he has asthma and was recently diagnosed with COVID about a month ago ? Will continue with the stress test in the morning ? Will consult cardiology ? Will trend troponins ? EKG is nonischemic ? She had an echo in 2021 with an EF of 60% ? Can resume his losartan 2. Asthma ? Stable, not in exacerbation ? Can continue with his home inhalers DVT: Therapeutic Lovenox one-time dose this evening 75 minutes was spent on direct patient care, including documentation as well as chart review and collaboration with colleagues Charges/Coding Visit Charges Inpatient E&M: 36097 Init Hosp L3 07/06/231 <Electronically signed by Heriberto Grewal MD> Cosigner Signature (if applicable): CC: Dr. Heriberto Grewal MD; Dr. J Luis Mcgill MD~ Signed ADDENDUM by Dr. Heriberto Grewal MD on 07/07/23 at 0552 Addendum Consult to cardiology was placed on the wrong patient. Will await results of the stress test prior to any further consultation 07/07/23 0552<Electronically signed by Heriberto Grewal MD> Cosigner Signature (if applicable): cc: Dr. Heriberto Grewal MD; Dr. J Luis Mcgill MD ~* Signed [facility] Work Phone: 1(796) 199-567704-15-2024 Discharge summary Author Huber Foy [facility] July 06, 2023 7:45pm Note Date/Time July 06, 2023 6:0 4pm [facility] Medical Records Department [address] [place] [address] Emergency Department Summary 07/06/23 MR#: [id number] Acct: [id number] Name: JOHNNIE QUIJANO Rep #:[id number] : 1940 83 From: Huber Foy MD PCP: Dr. 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 They relate history that he has past medical history of asthma and had COVID a month ago. He went to see his primary care provider, Dr. Mcgill, today. He performed outpatient laboratory work, and was shown to have an elevated troponin. Patient relates history that he has had increasing shortness of breath over the last few days. 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 Gay in the near future. He has had chest pain that may be more right-sided in nature. No recent nausea or vomiting, no diaphoresis. On June 28, approximately 1 week ago, he had an episode of chest pain where he clutched his chest. That resolved. He denies any leg swelling. No history of hypertension. However, he is unable to take aspirin because he has an allergy which causes shortness of breath. He presents today because of the elevated troponin. [facility] Medical History Asthma Benign prostatic hyperplasia without urinary obstruction Cervical radiculopathy Cervical strain Cubital tunnel syndrome on left CVA (cerebral vascular accident) Diverticulitis Syncope and collapse Home Medications albuterol sulfate 90 mcg/actuation aerosol inhaler (Ventolin HFA) 1 - 2 puff inhalation Q4H PRN PRN Wheezing ##1 05/02/14 [Rx Last Taken Unknown] montelukast 10 mg tablet (Singulair) 10 mg PO DAILY 05/02/14 [History Last Taken 07/05/23] acetaminophen 325 mg capsule (Tylenol) 325 mg PO TID PRN fever or pain 11/20/21 [History Last Taken Unknown] losartan 25 mg tablet 25 mg PO DAILY 11/20/21 [History Last Taken 07/05/23] benzonatate 200 mg capsule 200 mg PO TID PRN cough 07/06/23 [History Last Taken Unknown] Allergy/AdvReac Type Severity Reaction Status Date / Time naproxen [From Aleve] Allergy Unknown palpitaions, Verified 07/06/23 17:04 SOB aspirin Allergy Shortness Verified 07/06/23 17:04 of breath ibuprofen Allergy Other Verified 07/06/23 17:04 Family History Sister Cancer Mother Bleeding disorder Surgical History History of appendectomy Myringotomy tube status (~2005) Social History household members: spouse Smoking Status: Never smoker alcohol intake: never substance use type: does not use caffeine: Yes Type: coffee Number of servings: 2 ROS ROS ED ROS Narrative Constitutional: No fever, no chills. HEENT: No sore throat. No neck pain. No loss of vision. No rhinorrhea. Cardiovascular: Chest pain 1 week ago, no current chest pain. No palpitations. No pedal edema. Respiratory: No cough, positive shortness of breath. Abdominal: No abdominal pain. No nausea. No vomiting. Genitourinary: No dysuria. No hematuria. Musculoskeletal: No myalgias. No arthralgias. Neurologic: No headaches. No dizziness. No lightheadedness. Skin: No rash. No change in color. Psychiatric: No depression. No anxiety. EXAM Physical Exam Narrative Exam Narrative: Afebrile. Vital signs noted. HEENT: Normocephalic. Atraumatic. PERRL, EOMI. Neck soft and supple. No pointtenderness or step off. Cardiovascular: Positive bradycardia, no murmurs, rubs, or gallops appreciated. Respiratory: No tachypnea. Lungs clear to auscultation bilaterally. Gastrointestinal: Abdomen soft, nontender, with normoactive bowel sounds. No rebound or guarding. Neurological: Awake. Alert. Nonfocal, nonlateralizing. Skin: No rash. Normal color. No pallor. Musculoskeletal: No pedal edema. Full range of motion extremities. Const Vital Signs: 07/06/23 17:04 07/06/23 17:08 07/06/23 17:08 Temperature 97.3 F L Temperature Source Temporal Pulse Rate 54 L Respiratory Rate 18 Respiratory Effort Normal Non-Labored Respiratory Pattern Normal Blood Pressure 175/59 H Blood Pressure Mean 97 Pulse Ox 97 95 Oxygen Delivery Method Room Air Room Air 07/06/23 17:08 07/06/23 19:03 Temperature Temperature Source Pulse Rate 77 Respiratory Rate 18 20 H Respiratory Effort Respiratory Pattern Blood Pressure 155/89 H Blood Pressure Mean 111 Pulse Ox 95 95 Oxygen Delivery Method Room Air Room Air MDM MDM MDM Narrative Medical decision making narrative: I reviewed the patient's laboratory work from today and he had a troponin that was elevated in the 160s with a normal creatinine. RN ordered protocol laboratory work. EKG was obtained and interpreted by myself independently as sinus rhythm at 70 bpm with occasional PVCs. I see no acute ST changes. No STEMI. He has a lot of baseline artifact. There is T wave inversion in the inferior leads. Concern is for NSTEMI versus pulmonary embolism versus asthma exacerbation. RN had ordered D-dimer which is elevated at 5.91. Although this may be elevated tohis COVID a month ago, concern would be for pulmonary embolism. I will order a CTA of the chest. I reviewed his laboratory work and he has a normal white count of 7.8, hemoglobin 11.7, hematocrit 38.4, platelet count normal at 339. His electrolyte panel is grossly unremarkable with a sodium normal at 138, potassium 4.2, chloride 105. Glucose is appropriately elevated at 129. Troponin is elevated at 175, slightly higher than his troponin in the 160s a few hours ago/earlier this morning. I do not feel his troponin elevation is from chronic kidney disease because he has normal creatinine. I am unable to give him aspirin secondary to an allergy. His troponin elevation may be secondary to a pulmonary embolism, but in review of his prior labs as well he has had chronically elevated D-dimer. I reviewed the CTA report which shows no evidence of a pulmonary embolism or dissection. Idiscussed patient with Dr. Bowens with cardiology. He suggested Lovenox subcutaneously and set the patient up for stress test in the morning. I then discussed the patient with Dr. Grewal. He will be assigned observation on the PCU. Patient is in stable condition. History & Record Review Discussion w/independent historian: Patient and Family Additional record(s) reviewed:: Prior labs Lab Data Attestation: I reviewed the patient's lab results. Labs: Laboratory Results - last 24 hr 07/06/23 17:15 WBC 7.8 RBC 4.90 Hgb 11.7 L Hct 38.4 L MCV 78.4 L MCH 23.9 L MCHC 30.5 L RDW Std Deviation 48.5 H RDW Coeff of Heriberto 17.2 H Plt Count 339 MPV 10.3 Immature Gran % (Auto) 0.800 Neut % (Auto) 91.9 H Lymph % (Auto) 5.2 L Hitchcock % (Auto) 1.5 Eos % (Auto) 0.3 Baso % (Auto) 0.3 Absolute Neuts (auto) 7.2 Absolute Lymphs (auto) 0.41 L Nucleated RBC % 0 Differential Comment SEE COMMENT Platelet Estimate ADEQUATE RBC Morphology N CHROM Anisocytosis RARE Microcytosis RARE D-Dimer Quant (PE/DVT) 5.91 H* Sodium 138 Potassium 4.2 Chloride 105 Carbon Dioxide 26.0 Anion Gap 7 BUN 11 Creatinine 1.06 Estim Creat Clear Calc 49.20 Est GFR (MDRD) Af Amer 85 Est GFR (MDRD) Non-Af 71 BUN/Creatinine Ratio 10.4 Glucose 129 H Calcium 9.1 Troponin I High Sens 175 H* Radiography Diagnostic Testing: Clinical Impression(s) from Imaging Studies Chest CTA 07/06/23 18:04 IMPRESSION: No evidence of acute pulmonary emboli to the segmental level. Tiny focal area of consolidation in the lingula, slightly increased in size when compared to prior on 06/19/2023. This most likely represents rounded atelectasis or scarring, however cannot rule out infection or malignancy. Recommend follow-up chest CT in 3 months to ensure stability or resolution. Electronically Signed: Long Juarez MD at 19:09 EDT , Differential Diagnosis Chest pain/SOB: pulmonary embolism, ACS, pneumothorax, pneumonia and aortic dissection Management Discussion w/another healthcare provider: Hospitalist and Small Engine Mechanic Discharge Plan Triage Chief Complaint: Abn Labs ED Provider: Huber Foy Dx/Rx/DC Orders Prescriptions: No Action acetaminophen [Tylenol] 325 mg capsule 325 mg PO TID PRN (Reason: fever or pain) losartan 25 mg tablet 25 mg PO DAILY Patient Comments: TAKE 1 TABLET BY MOUTHCONCE DAILY IN THE MORNING montelukast [Singulair] 10 MG tablet 10 mg PO DAILY Patient Comments: lungs albuterol sulfate [Ventolin HFA] 1 INHALER inhaler 1 - 2 puff inhalation Q4H PRN PRN (Reason: Wheezing) Qty: 1 0RF Patient Comments: lungs, shortness of breath benzonatate 200 mg capsule 200 mg PO TID PRN Primary Care Provider: J Luis Mcgill Chi Referrals: J Luis Mcgill Chi, MD [Primary Care Provider] - What to do if you have Problems For any increased pain, shortness of breath, bleeding, nausea or vomiting, chestpain, or any unexpected problems, contact your Primary Care Provider. Call [facility] ([phone]) or report to the closest Emergency Room. Call 911 if necessary. 07/06/231944 <Electronically signed by Huber Foy MD> Cosigner Signature (if applicable): CC: Dr. J Luis Mcgill MD ~ Signed [facility] Work Phone: [phone] 286-225104-15-2024 Discharge summary Author Huber Foy [facility] July 06, 2023 7:45pm Note Date/Time July 06, 2023 6:0 4pm [facility] Medical Records Department [address] [place] [address] Emergency Department Summary 07/06/23 MR#: [id number] Acct: [id number] Name: MPROSEMARIEJOHNNIE GARY Rep #:[id number] : 1940 83 From: Huber Foy MD PCP: Dr. 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 They relate history that he has past medical history of asthma and had COVID a month ago. He went to see his primary care provider, Dr. Mcgill, today. He performed outpatient laboratory work, and was shown to have an elevated troponin. Patient relates history that he has had increasing shortness of breath over the last few days. 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 Gay in the near future. He has had chest pain that may be more right-sided in nature. No recent nausea or vomiting, no diaphoresis. On June 28, approximately 1 week ago, he had an episode of chest pain where he clutched his chest. That resolved. He denies any leg swelling. No history of hypertension. However, he is unable to take aspirin because he has an allergy which causes shortness of breath. He presents today because of the elevated troponin. [facility] Medical History Asthma Benign prostatic hyperplasia without urinary obstruction Cervical radiculopathy Cervical strain Cubital tunnel syndrome on left CVA (cerebral vascular accident) Diverticulitis Syncope and collapse Home Medications albuterol sulfate 90 mcg/actuation aerosol inhaler (Ventolin HFA) 1 - 2 puff inhalation Q4H PRN PRN Wheezing ##1 05/02/14 [Rx Last Taken Unknown] montelukast 10 mg tablet (Singulair) 10 mg PO DAILY 05/02/14 [History Last Taken 07/05/23] acetaminophen 325 mg capsule (Tylenol) 325 mg PO TID PRN fever or pain 11/20/21 [History Last Taken Unknown] losartan 25 mg tablet 25 mg PO DAILY 11/20/21 [History Last Taken 07/05/23] benzonatate 200 mg capsule 200 mg PO TID PRN cough 07/06/23 [History Last Taken Unknown] Allergy/AdvReac Type Severity Reaction Status Date / Time naproxen [From Aleve] Allergy Unknown palpitaions, Verified 07/06/23 17:04 SOB aspirin Allergy Shortness Verified 07/06/23 17:04 of breath ibuprofen Allergy Other Verified 07/06/23 17:04 Family History Sister Cancer Mother Bleeding disorder Surgical History History of appendectomy Myringotomy tube status (~2005) Social History household members: spouse Smoking Status: Never smoker alcohol intake: never substance use type: does not use caffeine: Yes Type: coffee Number of servings: 2 ROS ROS ED ROS Narrative Constitutional: No fever, no chills. HEENT: No sore throat. No neck pain. No loss of vision. No rhinorrhea. Cardiovascular: Chest pain 1 week ago, no current chest pain. No palpitations. No pedal edema. Respiratory: No cough, positive shortness of breath. Abdominal: No abdominal pain. No nausea. No vomiting. Genitourinary: No dysuria. No hematuria. Musculoskeletal: No myalgias. No arthralgias. Neurologic: No headaches. No dizziness. No lightheadedness. Skin: No rash. No change in color. Psychiatric: No depression. No anxiety. EXAM Physical Exam Narrative Exam Narrative: Afebrile. Vital signs noted. HEENT: Normocephalic. Atraumatic. PERRL, EOMI. Neck soft and supple. No pointtenderness or step off. Cardiovascular: Positive bradycardia, no murmurs, rubs, or gallops appreciated. Respiratory: No tachypnea. Lungs clear to auscultation bilaterally. Gastrointestinal: Abdomen soft, nontender, with normoactive bowel sounds. No rebound or guarding. Neurological: Awake. Alert. Nonfocal, nonlateralizing. Skin: No rash. Normal color. No pallor. Musculoskeletal: No pedal edema. Full range of motion extremities. Const Vital Signs: 07/06/23 17:04 07/06/23 17:08 07/06/23 17:08 Temperature 97.3 F L Temperature Source Temporal Pulse Rate 54 L Respiratory Rate 18 Respiratory Effort Normal Non-Labored Respiratory Pattern Normal Blood Pressure 175/59 H Blood Pressure Mean 97 Pulse Ox 97 95 Oxygen Delivery Method Room Air Room Air 07/06/23 17:08 07/06/23 19:03 Temperature Temperature Source Pulse Rate 77 Respiratory Rate 18 20 H Respiratory Effort Respiratory Pattern Blood Pressure 155/89 H Blood Pressure Mean 111 Pulse Ox 95 95 Oxygen Delivery Method Room Air Room Air MDM MDM MDM Narrative Medical decision making narrative: I reviewed the patient's laboratory work from today and he had a troponin that was elevated in the 160s with a normal creatinine. RN ordered protocol laboratory work. EKG was obtained and interpreted by myself independently as sinus rhythm at 70 bpm with occasional PVCs. I see no acute ST changes. No STEMI. He has a lot of baseline artifact. There is T wave inversion in the inferior leads. Concern is for NSTEMI versus pulmonary embolism versus asthma exacerbation. RN had ordered D-dimer which is elevated at 5.91. Although this may be elevated tohis COVID a month ago, concern would be for pulmonary embolism. I will order a CTA of the chest. I reviewed his laboratory work and he has a normal white count of 7.8, hemoglobin 11.7, hematocrit 38.4, platelet count normal at 339. His electrolyte panel is grossly unremarkable with a sodium normal at 138, potassium 4.2, chloride 105. Glucose is appropriately elevated at 129. Troponin is elevated at 175, slightly higher than his troponin in the 160s a few hours ago/earlier this morning. I do not feel his troponin elevation is from chronic kidney disease because he has normal creatinine. I am unable to give him aspirin secondary to an allergy. His troponin elevation may be secondary to a pulmonary embolism, but in review of his prior labs as well he has had chronically elevated D-dimer. I reviewed the CTA report which shows no evidence of a pulmonary embolism or dissection. Idiscussed patient with Dr. Bowens with cardiology. He suggested Lovenox subcutaneously and set the patient up for stress test in the morning. I then discussed the patient with Dr. Grewal. He will be assigned observation on the PCU. Patient is in stable condition. History & Record Review Discussion w/independent historian: Patient and Family Additional record(s) reviewed:: Prior labs Lab Data Attestation: I reviewed the patient's lab results. Labs: Laboratory Results - last 24 hr 07/06/23 17:15 WBC 7.8 RBC 4.90 Hgb 11.7 L Hct 38.4 L MCV 78.4 L MCH 23.9 L MCHC 30.5 L RDW Std Deviation 48.5 H RDW Coeff of Heriberto 17.2 H Plt Count 339 MPV 10.3 Immature Gran % (Auto) 0.800 Neut % (Auto) 91.9 H Lymph % (Auto) 5.2 L Hitchcock % (Auto) 1.5 Eos % (Auto) 0.3 Baso % (Auto) 0.3 Absolute Neuts (auto) 7.2 Absolute Lymphs (auto) 0.41 L Nucleated RBC % 0 Differential Comment SEE COMMENT Platelet Estimate ADEQUATE RBC Morphology N CHROM Anisocytosis RARE Microcytosis RARE D-Dimer Quant (PE/DVT) 5.91 H* Sodium 138 Potassium 4.2 Chloride 105 Carbon Dioxide 26.0 Anion Gap 7 BUN 11 Creatinine 1.06 Estim Creat Clear Calc 49.20 Est GFR (MDRD) Af Amer 85 Est GFR (MDRD) Non-Af 71 BUN/Creatinine Ratio 10.4 Glucose 129 H Calcium 9.1 Troponin I High Sens 175 H* Radiography Diagnostic Testing: Clinical Impression(s) from Imaging Studies Chest CTA 07/06/23 18:04 IMPRESSION: No evidence of acute pulmonary emboli to the segmental level. Tiny focal area of consolidation in the lingula, slightly increased in size when compared to prior on 06/19/2023. This most likely represents rounded atelectasis or scarring, however cannot rule out infection or malignancy. Recommend follow-up chest CT in 3 months to ensure stability or resolution. Electronically Signed: Long Juarez MD at 19:09 EDT , Differential Diagnosis Chest pain/SOB: pulmonary embolism, ACS, pneumothorax, pneumonia and aortic dissection Management Discussion w/another healthcare provider: Hospitalist and Small Engine Mechanic Discharge Plan Triage Chief Complaint: Abn Labs ED Provider: Huber Foy Dx/Rx/DC Orders Prescriptions: No Action acetaminophen [Tylenol] 325 mg capsule 325 mg PO TID PRN (Reason: fever or pain) losartan 25 mg tablet 25 mg PO DAILY Patient Comments: TAKE 1 TABLET BY MOUTHCONCE DAILY IN THE MORNING montelukast [Singulair] 10 MG tablet 10 mg PO DAILY Patient Comments: lungs albuterol sulfate [Ventolin HFA] 1 INHALER inhaler 1 - 2 puff inhalation Q4H PRN PRN (Reason: Wheezing) Qty: 1 0RF Patient Comments: lungs, shortness of breath benzonatate 200 mg capsule 200 mg PO TID PRN Primary Care Provider: J Luis Mcgill Chi Referrals: J Luis Mcgill Chi, MD [Primary Care Provider] - What to do if you have Problems For any increased pain, shortness of breath, bleeding, nausea or vomiting, chestpain, or any unexpected problems, contact your Primary Care Provider. Call [facility] ([phone]) or report to the closest Emergency Room. Call 911 if necessary. 07/06/231944 <Electronically signed by Huber Foy MD> Cosigner Signature (if applicable): CC: Dr. J Luis Mcgill MD ~ Signed [facility] Work Phone: 1(386) 605-990811-07-2023 Discharge summary Author Kelton Villarreal [facility] January 27, 2023 5:21pm Note Date/Time January 27, 2023 5 :21pm [facility] Physical Therapy [facility] [address] [place] [id number] / REHABILITATION SERVICES DISCHARGE SUMMARY MR#: [id number] Acct: [id number] Name: JOHNNIE QUIJANO Rep #: [id number] : 1940 82 From: Kelton Villarreal DPT, OCS, CSCS Referring Dr.: Dr. Lou Siegel, DO Status: REG R Insurance: [facility] [employer]URANCE Patient Information Patient Information: JOHNNIE QUIJANO was seen in my office for initial evaluation on 11/14/22. The following Plan of Care was established for this patient: POC Established Initial Frequency: 3x /Week Initial Duration: 2-4 Weeks Anticipated Interventions Patient/Client Instruction: Educate patient on: Condition and Plan of Care For the Purpose of:: To decrease pain, To improve nutrient delivery to tissue, To improve muscle performance and motor function, To increase tolerance to activity/condition/position and To prevent re-injury Therapeutic Exercise to Include: Strength training, Flexibilty training, PassiveROM and Active ROM For the Purpose of:: To decrease pain, To improve nutrient delivery to tissue, To improve muscle performance and motor function, To increase tolerance to activity/condition/position and To improve ability of physical actions for home/community/work/leisure Manual Therapy Techniques to Include: Soft tissue mobilization For the Purpose of:: To decrease pain, To decrease swelling/inflammation, To increase ROM and To improve nutrient delivery to tissue Prosthetic, Protective Equipment: Braces Comment: wrist For the Purpose of:: To decrease pain and To decrease swelling/inflammation Cryotherapy (ice pack, ice massage): Yes Ultrasound (thermal/non thermal): Yes (nonthermal) For the Purpose of:: To decrease pain, To decrease swelling/inflammation and To improve nutrient delivery to tissue Last Seen Last Seen: This patient was last seen in our office 12/03/22. Pertinent comments regardingtheir Physical therapy will appear below: Pt seen 5 visits of POC and was 40% better. did not attend any further visits. at this point it has been over 6 weeks and I will discontinue. At this point I will be discontinuing this patient from physical therapy. I would be happy to see this patient again in the future if found appropriate by the physician. Thank you! Kelton Villarreal, LETICIAT, OCS, CSCS Balance/Gait/Functional tests Balance/Special Test Scores Quick DASH Score: 15.9075 <Electronically signed by Kelton Villarreal DPT, OCS, CSCS> 01/27/23 1721 CC: Dr. Lou Siegel, DO ~ EBG Signed [facility] Work Phone: [phone]) 366-104912-31-2022 NoteHNO ID: [id number] Author: Cheryl Bansal PA-C Service: ? Author Type: Physician Formulator Type: Progress Notes Filed: 03/22/2022 2:27 PM Note Text: This note was created using [employer] Rob[employer]. Subjective Johnnie Quijano is a 82 year old male. HPI Patient presents with a chief complaint of cough and shortness of breath with wheezing over the past month. He was seen on the and put on prednisone for 12 days and given Tessalon. He is not sure if that helped much. Denies chest pain. No leg pain or swelling. No history of heart failure. Denies any recent fever. He has had nasal congestion as well. Review of Systems Constitutional: Negative. HENT: Positive for congestion. Respiratory: Positive for cough, shortness of breath and wheezing. Cardiovascular: Negative. Gastrointestinal: Negative. Musculoskeletal: Negative. All other systems reviewed and are negative. PAST MEDICAL HISTORY Diagnosis Date Asthma Current Outpatient Medications Medication Sig Dispense Refill rosuvastatin (CRESTOR) 5 mg tablet losartan (COZAAR) 25 mg tablet clopidogrel (PLAVIX) 75 mg tablet fluticasone/salmeterol (ADVAIR HFA INHALATION) Inhale as instructed. BUDESONIDE/FORMOTEROL FUMARATE (SYMBICORT INHALATION) Inhale as instructed. MONTELUKAST SODIUM (SINGULAIR ORAL) Take by mouth. dextromethorphan-guaiFENesin (MUCINEX DM) 30-600 mg per tablet Take 1 tablet by mouth twice daily for 7 days. 14 tablet 0 amoxicillin-clavulanic acid (AUGMENTIN) 875-125 mg per tablet Take 1 tablet by mouth twice daily for 7 days. 14 tablet 0 doxycycline (VIBRA-TABS) 100 mg tablet Take 1 tablet by mouth twice daily for 7 days. 14 tablet 0 ofloxacin (FLOXIN) 0.3 % otic solution Use 5 Drops in the right ear twice daily for 7 days. 10 mL 0 Benzonatate 200 mg capsule Take 1 capsule by mouth three times daily as needed. (Patient not taking: Reported on 03/22/2022) 21 capsule 0 No current facility-administered medications for this visit. PAST SURGICAL HISTORY Procedure Laterality Date APPENDECTOMY 1998 TONSILLECTOMY AND ADENOIDECTOMY HX UNLISTED PROCEDURE NOSE broken nose repair No family history on file. Social History Tobacco Use Smoking status: Never Smokeless tobacco: Never Objective BP 122/74 Pulse 78 Temp 37.4 ?C (99.4 ?F) Resp 16 Wt 70.3 kg (155 lb) SpO2 99% Physical Exam Vitals reviewed. Constitutional: Appearance: Normal appearance. HENT: Head: Normocephalic and atraumatic. Left Ear: Tympanic membrane, ear canal and external ear normal. Ears: Comments: Left ear normal TM and external auditory canal. Right ear when patient goes to remove his hearing aid he has copious pus drainage coming from the external auditory canal. TM difficult to visualize due to all of the drainage. Nose: Congestion present. Mouth/Throat: Mouth: Mucous membranes are moist. Pharynx: Oropharynx is clear. Cardiovascular: Rate and Rhythm: Normal rate and regular rhythm. Heart sounds: Normal heart sounds. Pulmonary: Effort: Pulmonary effort is normal. Breath sounds: Normal breath sounds. Musculoskeletal: Cervical back: Neck supple. Skin: General: Skin is warm and dry. Neurological: Mental Status: He is alert. Assessment and Plan ASSESSMENT/PLAN: 1. Lower resp. tract infection - ICD9: 519.8, ICD10: J22 (primary diagnosis) I do not have x-ray until 03/25/2022, will empirically cover him with doxycycline and Augmentin. Augmentin will also cover for the otitis media with perforation. Also given ofloxacin drops. Discussed not using his hearing aid for 5 or 6 days or until the drainage stops. Also given Mucinex DM for cough. Tessalon did not seem to help him much. He is oxygenating 99% here. No signs of heart failure on exam. No weight gain from the . Not in any distress. I did order an x-ray for Thursday that he may have done if not improving with this regimen. Also recommended follow-up with PCP. - XR CHEST 2V FRONTAL/LAT 2. Acute otitis media of right ear with perforation - ICD9: 382.01, ICD10: H66.91, H72.91 [facility]12-31-2022 History of Present illness Narrative* AMADEO ZhaoC - 03/22/2022 2:24 PM EST This note was created using [employer]. Subjective Johnnie Quijano is a 82 year old male. HPI Patient presents with a chief complaint of cough and shortness of breath with wheezing over the past month. He was seen on the and put on prednisone for 12 days and given Tessalon. He is not sure if that helped much. Denies chest pain. No leg pain or swelling. No history of heart failure. Denies any recent fever. He has had nasal congestion as well. Review of Systems Constitutional: Negative. HENT: Positive for congestion. Respiratory: Positive for cough, shortness of breath and wheezing. Cardiovascular: Negative. Gastrointestinal: Negative. Musculoskeletal: Negative. All other systems reviewed and are negative. PAST MEDICAL HISTORY Diagnosis Date Asthma Current Outpatient Medications Medication Sig Dispense Refill rosuvastatin (CRESTOR) 5 mg tablet losartan (COZAAR) 25 mg tablet clopidogrel (PLAVIX) 75 mg tablet fluticasone/salmeterol (ADVAIR HFA INHALATION) Inhale as instructed. BUDESONIDE/FORMOTEROL FUMARATE (SYMBICORT INHALATION) Inhale as instructed. MONTELUKAST SODIUM (SINGULAIR ORAL) Take by mouth. dextromethorphan-guaiFENesin (MUCINEX DM) 30-600 mg per tablet Take 1 tablet by mouth twice daily for 7 days. 14 tablet 0 amoxicillin-clavulanic acid (AUGMENTIN) 875-125 mg per tablet Take 1 tablet by mouth twice daily for 7 days. 14 tablet 0 doxycycline (VIBRA-TABS) 100 mg tablet Take 1 tablet by mouth twice daily for 7 days. 14 tablet 0 ofloxacin (FLOXIN) 0.3 % otic solution Use 5 Drops in the right ear twice daily for 7 days. 10 mL 0 Benzonatate 200 mg capsule Take 1 capsule by mouth three times daily as needed. (Patient not taking: Reported on 03/22/2022) 21 capsule 0 No current facility-administered medications for this visit. PAST SURGICAL HISTORY Procedure Laterality Date APPENDECTOMY 1998 TONSILLECTOMY AND ADENOIDECTOMY HX UNLISTED PROCEDURE NOSE broken nose repair No family history on file. Social History Tobacco Use Smoking status: Never Smokeless tobacco: Never Objective BP 122/74 Pulse 78 Temp 37.4 C (99.4 F) Resp 16 Wt 70.3 kg (155 lb) SpO2 99% Physical Exam Vitals reviewed. Constitutional: Appearance: Normal appearance. HENT: Head: Normocephalic and atraumatic. Left Ear: Tympanic membrane, ear canal and external ear normal. Ears: Comments: Left ear normal TM and external auditory canal. Right ear when patient goes to remove hishearing aid he has copious pus drainage coming from the external auditory canal. TM difficult to visualize due to all of the drainage. Nose: Congestion present. Mouth/Throat: Mouth: Mucous membranes are moist. Pharynx: Oropharynx is clear. Cardiovascular: Rate and Rhythm: Normal rate and regular rhythm. Heart sounds: Normal heart sounds. Pulmonary: Effort: Pulmonary effort is normal. Breath sounds: Normal breath sounds. Musculoskeletal: Cervical back: Neck supple. Skin: General: Skin is warm and dry. Neurological: Mental Status: He is alert. Assessment and Plan ASSESSMENT/PLAN: 1. Lower resp. tract infection - ICD9: 519.8, ICD10: J22 (primary diagnosis) I do not have x-ray until 03/25/2022, will empirically cover him with doxycycline and Augmentin. Augmentin will also cover for the otitis media with perforation. Also given ofloxacin drops. Discussed not using his hearing aid for 5 or 6 days or until the drainage stops. Also given Mucinex DM for cough. Tessalon did not seem to help him much. He is oxygenating 99% here. No signs of heart failure on exam. No weight gain from the . Not in any distress. I did order an x-ray for Thursday that he may have done if not improving with this regimen. Also recommended follow-up with PCP. - XR CHEST 2V FRONTAL/LAT 2. Acute otitis media of right ear with perforation - ICD9: 382.01, ICD10: H66.91, H72.91 Cheryl Bansal PA-C [facility] NoteHNO ID: [id number] Author: Carina Loo APRN.[employer] WILLOW OPERATOR Service: ? Author Type: Nurse Practitioner Type: Progress Notes Filed: 2022 11:46 AM Note Text: CC: Patient presents with: Asthma: sob x 1-2 weeks HPI: Johnnie Quijano is a 82 year old male who presents to the office with complaint of SOB for two weeks. Symptoms are staying the same. Associated symptoms includes dry cough, wheezing, and dyspnea. Denies sore throat, nasal congestion, rhinorrhea, facial pain/pressure, hoarse voice, swollen glands, post nasal drip, headache, body aches, fever, ear pressure , fatigue, nausea, vomiting , and diarrhea. Treatments tried include Albuterol MDI/nebulilzer with temporary relief of symptoms. Sick contacts: no. History of asthma, frequent episodes of bronchitis, chronic bronchitis, bronchiectasis or COPD: Yes asthma Smoker: No Seasonal/environmental allergies: No REVIEW OF SYSTEMS Cardiovascular: no chest pain, no chest pressure, no palpitations, and no swelling The patient's pmh, medications, allergies, and past visits are reviewed. PHYSICAL EXAM: BP 122/70 Pulse 78 Temp 36.9 ?C (98.5 ?F) Resp 16 Wt 70.8 kg (156 lb) SpO2 97% General appearance: healthy, alert, cooperative, pleasant, in no acute distress Head: Normocephalic Eyes: conjunctiva pink and moist, no icterus, sclera white, non-injected Ears: Right ear: External ear/canal- Normal, TM - clear with good landmarks. Left ear: External ear/canal- Normal, TM - clear with good landmarks Nose: clear, no sinus tenderness. Oropharynx:No erythema, exudates or tonsillar hypertrophy. Neck:supple and no adenopathy Heart: Negative. RRR without obvious murmur, gallop, or rubs. No ectopy. Lungs: diminished breath sounds, wheezing diffusely, no rales or rhonchi ASSESSMENT/PLAN: 1. Mild intermittent asthma with acute exacerbation - ICD9: 493.92, ICD10: J45.21 No symptoms or exam findings concerning for pneumonia or bronchitis. Start treatment for exacerbation with prednisone burst with taper Continue with albuterol as needed Follow-up with PCP in 3 to 5 days if no improvement in symptoms Prescription instructions reviewed with patient as applicable. Potential red flag symptoms discussed with the patient. Reviewed appropriate action plan to take if red flag symptoms occur. Patient agreeable to treatment plan. Carina Loo APRN.[facility] note Author Jenifer Jerome [facility] July 07, 2023 2:41pm Note Date/Time July 07, 2023 2:4 1pm [facility] Medical Records Department [address] [place] [id number] Counseling Note - Pharmacy 07/07/23 1440 MR#: [id number] Acct: [id number] Name: JOHNNIE QUIJANO Rep #:[id number] : 1940 83 From: Jenifer Jerome PCP: Dr. J Luis Mcgill MD Status:ADM I NO Y Location: [place] [address] Pharmacy MS Med Reconciliation Pharmacy Service has performed discharge medication reconciliation for this patient. The patient's discharge medication list was reviewed for discrepancies and discrepancies were resolved. Medications at Discharge Home Medications albuterol sulfate 90 mcg/actuation aerosol inhaler (Ventolin HFA) 1 - 2 puff inhalation Q4H PRN PRN Wheezing ##1 05/02/14 montelukast 10 mg tablet (Singulair) 10 mg PO DAILY 05/02/14 acetaminophen 325 mg capsule (Tylenol) 325 mg PO TID PRN fever or pain 11/20/21 losartan 25 mg tablet 25 mg PO DAILY 11/20/21 baclofen 10 mg tablet 10 mg PO DAILY 07/06/23 benzonatate 200 mg capsule 200 mg PO TID PRN cough 07/06/23 naproxen 250 mg tablet 250 mg PO BID 07/06/23 pantoprazole 40 mg tablet,delayed release 40 mg PO DAILY 07/06/23 prednisone 10 mg tablet 10 mg PO BID 07/06/23 07/07/23 1441 <Electronically signed by Jenifer Jerome> Date _ Jenifer Jerome Cosigner Signature (if applicable): Date CC: ~ Signed [facility] Work Phone: Discharge summary Author Kelton Engle [facility] July 07, 2023 2:29pm Note Date/Time July 07, 2023 2:2 8pm [facility] Medical Records Department [address] [place] [address] Discharge Summary 07/07/23 1426 MR#: [id number] Acct: [id number] Name: JOHNNIE QUIJANO Rep #:[id number] : [id number] From: Kelton Engle DO PCP: Dr. J Luis Mcgill MD Status:ADM I NO [id number] Providers Date of Admission: 07/06/23 Primary Care Physician: Dr. J Luis Mcgill MD Reason For Visit: CHEST PAIN Diagnosis Discharge Diagnosis (1) Chest pain: Status: Acute Code(s): R07.9 - Chest pain, unspecified (2) Shortness of breath: Status: Acute Code(s): R06.02 - Shortness of breath Plan Unstable angina * trop up to 175, down to 161. * Stress test reported as normal by cardiology. * Likely atypical chest pain due to cough from COVID illness that he had about a month ago. No additional workup at this time. Discharge home. Chronic conditions: * Asthma? Stable, not in exacerbation? Can continue with his home inhalers DVT: Therapeutic Lovenox one-time dose this evening Medications at Discharge Home Medications albuterol sulfate 90 mcg/actuation aerosol inhaler (Ventolin HFA) 1 - 2 puff inhalation Q4H PRN PRN Wheezing ##1 05/02/14 montelukast 10 mg tablet (Singulair) 10 mg PO DAILY 05/02/14 acetaminophen 325 mg capsule (Tylenol) 325 mg PO TID PRN fever or pain 11/20/21 losartan 25 mg tablet 25 mg PO DAILY 11/20/21 baclofen 10 mg tablet 10 mg PO DAILY 07/06/23 benzonatate 200 mg capsule 200 mg PO TID PRN cough 07/06/23 naproxen 250 mg tablet 250 mg PO BID 07/06/23 pantoprazole 40 mg tablet,delayed release 40 mg PO DAILY 07/06/23 prednisone 10 mg tablet 10 mg PO BID 07/06/23 Hospital Course Procedures Stress test Summary of Care Provided Minutes Spent on Discharge: 35 Hospital Course: Patient presented with chest pain. Troponins were mildly elevated with peak troponin of 175. Stress test was recommended by cardiology and was reported as normal. Chest pain is likely atypical probably due to costochondritis or muscular strain from recent COVID infection that may have caused persistent coughing afterwards. Patient is otherwise doing well will be discharged home. Weight / BMI Weight Weight: 66.6 kg Body Mass Index (BMI) 22.3 ABG / Lab / Microbiology Data 07/07/23 06:10 07/07/23 06:10 Laboratory: Laboratory Results - last 24 hr 07/06/23 17:15: WBC 7.8, RBC 4.90, Hgb 11.7 L, Hct 38.4 L, MCV 78.4 L, MCH 23.9 L, MCHC 30.5 L, RDW Std Deviation 48.5 H, RDW Coeff of Heriberto 17.2 H, Plt Count 339, MPV 10.3, Immature Gran % (Auto) 0.800, Neut % (Auto) 91.9 H, Lymph % (Auto) 5.2 L, Hitchcock % (Auto) 1.5, Eos % (Auto) 0.3, Baso % (Auto) 0.3, Absolute Neuts (auto) 7.2, Absolute Lymphs (auto) 0.41 L, Nucleated RBC % 0, DifferentialComment SEE COMMENT, Platelet Estimate ADEQUATE, RBC Morphology N CHROM, Anisocytosis RARE, Microcytosis RARE, D-Dimer Quant (PE/DVT) 5.91 H*, Sodium 138, Potassium 4.2, Chloride 105, Carbon Dioxide 26.0, Anion Gap 7, BUN 11, Creatinine 1.06, Estim Creat Clear Calc 49.20, Est GFR (MDRD) Af Amer 85, Est GFR (MDRD) Non-Af 71, BUN/Creatinine Ratio 10.4, Glucose 129 H, Calcium 9.1, Troponin I High Sens 175 H* 07/06/23 21:29: Troponin I High Sens 161 H* 07/07/23 06:10: WBC 8.1, RBC 4.43 L, Hgb 10.3 L, Hct 34.2 L, MCV 77.2 L, MCH 23.3 L, MCHC 30.1 L, RDW Std Deviation 46.8 H, RDW Coeff of Heriberto 17.0 H, Plt Bhdtm086, MPV 9.9, Immature Gran % (Auto) 0.700, Neut % (Auto) 85.4 H, Lymph % (Auto)8.4 L, Hitchcock % (Auto) 5.4, Eos % (Auto) 0.0, Baso % (Auto) 0.1, Absolute Neuts (auto) 7.0, Absolute Lymphs (auto) 0.68 L, Nucleated RBC % 0, Sodium 138, Potassium 4.5, Chloride 107, Carbon Dioxide 27.0, Anion Gap 4 L, BUN 15, Creatinine 0.92, Estim Creat Clear Calc 55.30, Est GFR (MDRD) Af Amer 100, Est GFR (MDRD) Non-Af 83, BUN/Creatinine Ratio 16.3, Glucose 143 H, Calcium 9.0 Radiography Diagnostic Testing: Radiology Impression Chest CTA 07/06/23 18:04 IMPRESSION: No evidence of acute pulmonary emboli to the segmental level. Tiny focal area of consolidation in the lingula, slightly increased in size when compared to prior on 06/19/2023. This most likely represents rounded atelectasis or scarring, however cannot rule out infection or malignancy. Recommend follow-up chest CT in 3 months to ensure stability or resolution. Electronically Signed: Long Juarez MD at 19:09 EDT , D/C Instructions Discharge Diet: No restrictions Meaningful Use Info Meaningful Use Diagnoses (Choose all that apply): None applicable Discharge Plan Admission Admit Date/Time: 07/06/23 19:54 Primary Reason for Your Visit: Chest pain Attending Provider: Kelton Engle Primary Care Provider: J Luis Mcgill [employer] Providers: Heriberto Grewal Instructions Additional Instructions / Restrictions: You had chest pain. You did have some mildly elevated cardiac enzymes, however,your stress test was normal. Likely the chest pain was due to either muscle strain from coughing or possible irritation of your ribs, known as costochondritis. The symptoms should resolve over time. But if you do have chest pain that is different associated with shortness of breath and nausea or getting hot and sweaty, notify your physician or return to the emergency room. Discharge Orders/Prescriptions Prescriptions: Continued acetaminophen [Tylenol] 325 mg capsule 325 mg PO TID PRN (Reason: fever or pain) losartan 25 mg tablet 25 mg PO DAILY Patient Comments: TAKE 1 TABLET BY MOUTHCONCE DAILY IN THE MORNING montelukast [Singulair] 10 MG tablet 10 mg PO DAILY Patient Comments: lungs albuterol sulfate [Ventolin HFA] 1 INHALER inhaler 1 - 2 puff inhalation Q4H PRN PRN (Reason: Wheezing) Qty: 1 0RF Patient Comments: lungs, shortness of breath benzonatate 200 mg capsule 200 mg PO TID PRN prednisone 10 mg tablet 10 mg PO BID Patient Comments: new prescription hasn't started yet naproxen 250 mg tablet 250 mg PO BID Patient Comments: new prescription hasn't started yet baclofen 10 mg tablet 10 mg PO DAILY Patient Comments: prescribed, hasn't started yet pantoprazole 40 mg tablet,delayed release (DR/EC) 40 mg PO DAILY Patient Comments: new prescription hasn't started yet Referrals / Follow Up: J Luis Mcgill Chi, MD [Primary Care Provider] - Within 2 Weeks Disposition Disposition (needs filled in before D/C Order can be placed): Home, Self Care Charges/Coding Visit Charges Inpatient E&M: 86423 Disch Hosp >30min 07/07/23 1429 <Electronically signed by Kelton Engle DO> Cosigner Signature (if applicable): CC: Dr. Kelton Engle DO; Dr. J Luis Mcgill MD~ Signed [facility] Work Phone: Evaluation note* Diagnosis Onset Date Resolution Status Cervical radiculopathy acute Pain of cervical spine nonea ctive Cervical radiculopathy acute [facility] Work Phone: Evaluation note* Diagnosis Onset Date Resolution Status Cervical radiculopathy acute [facility] Work Phone: Evaluation noteNo assessment information available [facility] Work Phone: Evaluation note* Diagnosis Lower resp. tract infection- Primary Other diseases of respiratory system, not elsewhere classified Acute otitis media of right ear with perforation [facility] [place] [facility]* Diagnosis Dyspnea, unspecified type- Primary documented in this encounter [facility] note* Diagnosis Onset Date Resolution Status Chest pain acute Elevated d-dimer acute Elevated troponin acute Shortness of breath acute [facility] Work Phone: Evaluation note* Diagnosis Onset Date Resolution Status Chest pain resolved Elevated d-dimer resolved Elevated troponin resolved Shortness of breath resolved [facility] Work Phone[facility] Work Phone: Hospital Discharge instructions Additional Instructions We will send her urine for a culture, if it grows anything you will be called. Take the prednisone until finished, continue using your inhalers.[facility] Work Phone: Hospital Discharge instructions Additional Instructions Thank you for trusting us with your care today! Please take Tylenol (2 pills, 650 mg), ibuprofen (2 pills, 400 mg) every 6 hours as needed for pain and fever control. Please return to the emergency department if your symptoms change or worsen. Please follow with your primary care physician for further outpatient evaluation and management.[facility] Work Phone: Instructions* Name Dates Details How to access health informa tion online Indication:BMI 27.0-27.9,adult Start:16-Jan-2020 Instruction Type:Patient Education How to access health informa tion online - Detail Indication:BMI 27.0-27.9,adult Start:16-Jan-2020 Instruction Type:Patient Education Patient Instructions Indication:BMI 27.0-27.9,adult Start:16-Jan-2020 Instruction Type:Provider Instructions for Treatment How to access health informa tion online Indication:Non-smoker Start:24-Oct-2019 Instruction Type:Patient Education How to access health informa tion online - Detail Indication:Non-smoker Start:24-Oct-2019 Instruction Type:Patient Education Patient Instructions Indication:BMI 27.0-27.9,adult Start:24-Oct-2019 Instruction Type:Provider Instructions for Treatment How to access health informa tion online Indication:Non-smoker Start:25-Aug-2019 Instruction Type:Patient Education How to access health informa tion online - Detail Indication:Non-smoker Start:25-Aug-2019 Instruction Type:Patient Education Patient Instructions Indication:Non-smoker Start:25-Aug-2019 Instruction Type:Provider Instructions for Treatment How to access health informa tion online Indication:Non-smoker Start:12-May-2019 Instruction Type:Patient Education How to access health informa tion online - Detail Indication:Non-smoker Start:12-May-2019 Instruction Type:Patient Education Patient Instructions Indication:Non-smoker Start:12-May-2019 Instruction Type:Provider Instructions for Treatment How to access health informa tion online Indication:Non-smoker Start:02-May-2019 Instruction Type:Patient Education How to access health informa tion online - Detail Indication:Non-smoker Start:02-May-2019 Instruction Type:Patient Education Patient Instructions Indication:Non-smoker Start:02-May-2019 Instruction Type:Provider Instructions for Treatment How to access health informa tion online Indication:BMI 26.0-26.9,adult Start:28-Apr-2019 Instruction Type:Patient Education How to access health informa tion online - Detail Indication:BMI 26.0-26.9,adult Start:28-Apr-2019 Instruction Type:Patient Education Patient Instructions Indication:BMI 26.0-26.9,adult Start:28-Apr-2019 Instruction Type:Provider Instructions for Treatment How to access health informa tion online Indication:Cough Start:26-Apr-2019 Instruction Type:Patient Education How to access health informa tion online - Detail Indication:Cough Start:26-Apr-2019 Instruction Type:Patient Education Patient Instructions Indication:Cough Start:26-Apr-2019 Instruction Type:Provider Instructions for Treatment How to access health informa tion online Indication:Nasal congestion Start:12-Apr-2019 Instruction Type:Patient Education How to access health informa tion online - Detail Indication:Nasal congestion Start:12-Apr-2019 Instruction Type:Patient Education Patient Instructions Indication:Nasal congestion Start:12-Apr-2019 Instruction Type:Provider Instructions for Treatment How to access health informa tion online Indication:Cough Start:08-Feb-2019 Instruction Type:Patient Education How to access health informa tion online - Detail Indication:Cough Start:08-Feb-2019 Instruction Type:Patient Education Patient Instructions Indication:Cough Start:08-Feb-2019 Instruction Type:Provider Instructions for Treatment How to access health informa tion online Indication:Nonsmoker Start:29-Jul-2018 Instruction Type:Patient Education How to access health informa tion online - Detail Indication:Nonsmoker Start:29-Jul-2018 Instruction Type:Patient Education Patient Instructions Indication:Nonsmoker Start:29-Jul-2018 Instruction Type:Provider Instructions for Treatment How to access health informa tion online Indication:BMI 25.0-25.9,adult Start:26-Mar-2017 Instruction Type:Patient Education How to access health informa tion online - Detail Indication:BMI 25.0-25.9,adult Start:26-Mar-2017 Instruction Type:Patient Education Patient Instructions Indication:Chronic obstructive asthma with acute exacerbation (Renamed from Chronic obstructive asthma with exacerbation) Start:26-Mar-2017 Instruction Type:Provider Instructions for Treatment How to access health informa tion online Indication:Nonsmoker Start:09-Jan-2017 Instruction Type:Patient Education How to access health informa tion online - Detail Indication:Nonsmoker Start:09-Jan-2017 Instruction Type:Patient Education Patient Instructions Indication:Nonsmoker Start:09-Jan-2017 Instruction Type:Provider Instructions for Treatment How to access health informa tion online Indication:Abnormal glucose tolerance test Start:02-Jan-2017 Instruction Type:Patient Education How to access health informa tion online - Detail Indication:Abnormal glucose tolerance test Start:02-Jan-2017 Instruction Type:Patient Education Patient Instructions Indication:Abnormal glucose tolerance test Start:02-Jan-2017 Instruction Type:Provider Instructions for Treatment How to access health informa tion online Indication:Cough Start:14-Mar-2016 Instruction Type:Patient Education How to access health informa tion online - Detail Indication:Cough Start:14-Mar-2016 Instruction Type:Patient Education Patient Instructions Indication:Cough Start:14-Mar-2016 Instruction Type:Provider Instructions for Treatment How to access health informa tion online Indication:Cough Start:31-Jan-2015 Instruction Type:Patient Education How to access health informa tion online - Detail Indication:Cough Start:31-Jan-2015 Instruction Type:Patient Education Patient Instructions Indication:Cough Start:31-Jan-2015 Instruction Type:Provider Instructions for Treatment [facility]; [facility] Work Phone: Instructions* Name Dates Details Patient Instructions Indication:BMI 27.0-27.9,adult Start:30-Jan-2021 Instruction Type:Provider Instructions for Treatment How to Access Health Informa tion Online using Patient Portal and 3rd [employer] Apps Indication:BMI 27.0-27.9,adult Start:30-Jan-2021 Instruction Type:Patient Education Patient Instructions Indication:Non-smoker Start:23-Oct-2020 Instruction Type:Provider Instructions for Treatment How to Access Health Informa tion Online using Patient Portal and 3rd [employer] Apps Indication:Non-smoker Start:23-Oct-2020 Instruction Type:Patient Education Patient Instructions Indication:BMI 27.0-27.9,adult Start:19-Oct-2020 Instruction Type:Provider Instructions for Treatment How to Access Health Informa tion Online using Patient Portal and 3rd [employer] Apps Indication:BMI 27.0-27.9,adult Start:19-Oct-2020 Instruction Type:Patient Education How to access health informa tion online Indication:BMI 27.0-27.9,adult Start:16-Jan-2020 Instruction Type:Patient Education How to access health informa tion online - Detail Indication:BMI 27.0-27.9,adult Start:16-Jan-2020 Instruction Type:Patient Education Patient Instructions Indication:BMI 27.0-27.9,adult Start:16-Jan-2020 Instruction Type:Provider Instructions for Treatment How to access health informa tion online Indication:Non-smoker Start:24-Oct-2019 Instruction Type:Patient Education How to access health informa tion online - Detail Indication:Non-smoker Start:24-Oct-2019 Instruction Type:Patient Education Patient Instructions Indication:BMI 27.0-27.9,adult Start:24-Oct-2019 Instruction Type:Provider Instructions for Treatment How to access health informa tion online Indication:Non-smoker Start:25-Aug-2019 Instruction Type:Patient Education How to access health informa tion online - Detail Indication:Non-smoker Start:25-Aug-2019 Instruction Type:Patient Education Patient Instructions Indication:Non-smoker Start:25-Aug-2019 Instruction Type:Provider Instructions for Treatment How to access health informa tion online Indication:Non-smoker Start:12-May-2019 Instruction Type:Patient Education How to access health informa tion online - Detail Indication:Non-smoker Start:12-May-2019 Instruction Type:Patient Education Patient Instructions Indication:Non-smoker Start:12-May-2019 Instruction Type:Provider Instructions for Treatment How to access health informa tion online Indication:Non-smoker Start:02-May-2019 Instruction Type:Patient Education How to access health informa tion online - Detail Indication:Non-smoker Start:02-May-2019 Instruction Type:Patient Education Patient Instructions Indication:Non-smoker Start:02-May-2019 Instruction Type:Provider Instructions for Treatment How to access health informa tion online Indication:BMI 26.0-26.9,adult Start:28-Apr-2019 Instruction Type:Patient Education How to access health informa tion online - Detail Indication:BMI 26.0-26.9,adult Start:28-Apr-2019 Instruction Type:Patient Education Patient Instructions Indication:BMI 26.0-26.9,adult Start:28-Apr-2019 Instruction Type:Provider Instructions for Treatment How to access health informa tion online Indication:Cough Start:26-Apr-2019 Instruction Type:Patient Education How to access health informa tion online - Detail Indication:Cough Start:26-Apr-2019 Instruction Type:Patient Education Patient Instructions Indication:Cough Start:26-Apr-2019 Instruction Type:Provider Instructions for Treatment How to access health informa tion online Indication:Nasal congestion Start:12-Apr-2019 Instruction Type:Patient Education How to access health informa tion online - Detail Indication:Nasal congestion Start:12-Apr-2019 Instruction Type:Patient Education Patient Instructions Indication:Nasal congestion Start:12-Apr-2019 Instruction Type:Provider Instructions for Treatment How to access health informa tion online Indication:Cough Start:08-Feb-2019 Instruction Type:Patient Education How to access health informa tion online - Detail Indication:Cough Start:08-Feb-2019 Instruction Type:Patient Education Patient Instructions Indication:Cough Start:08-Feb-2019 Instruction Type:Provider Instructions for Treatment How to access health informa tion online Indication:Nonsmoker Start:29-Jul-2018 Instruction Type:Patient Education How to access health informa tion online - Detail Indication:Nonsmoker Start:29-Jul-2018 Instruction Type:Patient Education Patient Instructions Indication:Nonsmoker Start:29-Jul-2018 Instruction Type:Provider Instructions for Treatment How to access health informa tion online Indication:BMI 25.0-25.9,adult Start:26-Mar-2017 Instruction Type:Patient Education How to access health informa tion online - Detail Indication:BMI 25.0-25.9,adult Start:26-Mar-2017 Instruction Type:Patient Education Patient Instructions Indication:Chronic obstructive asthma with acute exacerbation (Renamed from Chronic obstructive asthma with exacerbation) Start:26-Mar-2017 Instruction Type:Provider Instructions for Treatment How to access health informa tion online Indication:Nonsmoker Start:09-Jan-2017 Instruction Type:Patient Education How to access health informa tion online - Detail Indication:Nonsmoker Start:09-Jan-2017 Instruction Type:Patient Education Patient Instructions Indication:Nonsmoker Start:09-Jan-2017 Instruction Type:Provider Instructions for Treatment How to access health informa tion online Indication:Abnormal glucose tolerance test Start:02-Jan-2017 Instruction Type:Patient Education How to access health informa tion online - Detail Indication:Abnormal glucose tolerance test Start:02-Jan-2017 Instruction Type:Patient Education Patient Instructions Indication:Abnormal glucose tolerance test Start:02-Jan-2017 Instruction Type:Provider Instructions for Treatment How to access health informa tion online Indication:Cough Start:14-Mar-2016 Instruction Type:Patient Education How to access health informa tion online - Detail Indication:Cough Start:14-Mar-2016 Instruction Type:Patient Education Patient Instructions Indication:Cough Start:14-Mar-2016 Instruction Type:Provider Instructions for Treatment How to access health informa tion online Indication:Cough Start:31-Jan-2015 Instruction Type:Patient Education How to access health informa tion online - Detail Indication:Cough Start:31-Jan-2015 Instruction Type:Patient Education Patient Instructions Indication:Cough Start:31-Jan-2015 Instruction Type:Provider Instructions for Treatment [facility]; [facility] Work Phone: Instructions* Name Dates Details Patient Instructions Indication:BMI 27.0-27.9,adult Start:30-Jan-2021 Instruction Type:Provider Instructions for Treatment How to Access Health Informa tion Online using Patient Portal and 3rd [employer] Apps Indication:BMI 27.0-27.9,adult Start:30-Jan-2021 Instruction Type:Patient Education Patient Instructions Indication:Non-smoker Start:23-Oct-2020 Instruction Type:Provider Instructions for Treatment How to Access Health Informa tion Online using Patient Portal and 3rd [employer] Apps Indication:Non-smoker Start:23-Oct-2020 Instruction Type:Patient Education Patient Instructions Indication:BMI 27.0-27.9,adult Start:19-Oct-2020 Instruction Type:Provider Instructions for Treatment How to Access Health Informa tion Online using Patient Portal and 3rd [employer] Apps Indication:BMI 27.0-27.9,adult Start:19-Oct-2020 Instruction Type:Patient Education How to access health informa tion online Indication:BMI 27.0-27.9,adult Start:16-Jan-2020 Instruction Type:Patient Education How to access health informa tion online - Detail Indication:BMI 27.0-27.9,adult Start:16-Jan-2020 Instruction Type:Patient Education Patient Instructions Indication:BMI 27.0-27.9,adult Start:16-Jan-2020 Instruction Type:Provider Instructions for Treatment How to access health informa tion online Indication:Non-smoker Start:24-Oct-2019 Instruction Type:Patient Education How to access health informa tion online - Detail Indication:Non-smoker Start:24-Oct-2019 Instruction Type:Patient Education Patient Instructions Indication:BMI 27.0-27.9,adult Start:24-Oct-2019 Instruction Type:Provider Instructions for Treatment How to access health informa tion online Indication:Non-smoker Start:25-Aug-2019 Instruction Type:Patient Education How to access health informa tion online - Detail Indication:Non-smoker Start:25-Aug-2019 Instruction Type:Patient Education Patient Instructions Indication:Non-smoker Start:25-Aug-2019 Instruction Type:Provider Instructions for Treatment How to access health informa tion online Indication:Non-smoker Start:12-May-2019 Instruction Type:Patient Education How to access health informa tion online - Detail Indication:Non-smoker Start:12-May-2019 Instruction Type:Patient Education Patient Instructions Indication:Non-smoker Start:12-May-2019 Instruction Type:Provider Instructions for Treatment How to access health informa tion online Indication:Non-smoker Start:02-May-2019 Instruction Type:Patient Education How to access health informa tion online - Detail Indication:Non-smoker Start:02-May-2019 Instruction Type:Patient Education Patient Instructions Indication:Non-smoker Start:02-May-2019 Instruction Type:Provider Instructions for Treatment How to access health informa tion online Indication:BMI 26.0-26.9,adult Start:28-Apr-2019 Instruction Type:Patient Education How to access health informa tion online - Detail Indication:BMI 26.0-26.9,adult Start:28-Apr-2019 Instruction Type:Patient Education Patient Instructions Indication:BMI 26.0-26.9,adult Start:28-Apr-2019 Instruction Type:Provider Instructions for Treatment How to access health informa tion online Indication:Cough Start:26-Apr-2019 Instruction Type:Patient Education How to access health informa tion online - Detail Indication:Cough Start:26-Apr-2019 Instruction Type:Patient Education Patient Instructions Indication:Cough Start:26-Apr-2019 Instruction Type:Provider Instructions for Treatment How to access health informa tion online Indication:Nasal congestion Start:12-Apr-2019 Instruction Type:Patient Education How to access health informa tion online - Detail Indication:Nasal congestion Start:12-Apr-2019 Instruction Type:Patient Education Patient Instructions Indication:Nasal congestion Start:12-Apr-2019 Instruction Type:Provider Instructions for Treatment How to access health informa tion online Indication:Cough Start:08-Feb-2019 Instruction Type:Patient Education How to access health informa tion online - Detail Indication:Cough Start:08-Feb-2019 Instruction Type:Patient Education Patient Instructions Indication:Cough Start:08-Feb-2019 Instruction Type:Provider Instructions for Treatment How to access health informa tion online Indication:Nonsmoker Start:29-Jul-2018 Instruction Type:Patient Education How to access health informa tion online - Detail Indication:Nonsmoker Start:29-Jul-2018 Instruction Type:Patient Education Patient Instructions Indication:Nonsmoker Start:29-Jul-2018 Instruction Type:Provider Instructions for Treatment How to access health informa tion online Indication:BMI 25.0-25.9,adult Start:26-Mar-2017 Instruction Type:Patient Education How to access health informa tion online - Detail Indication:BMI 25.0-25.9,adult Start:26-Mar-2017 Instruction Type:Patient Education Patient Instructions Indication:Chronic obstructive asthma with acute exacerbation (Renamed from Chronic obstructive asthma with exacerbation) Start:26-Mar-2017 Instruction Type:Provider Instructions for Treatment How to access health informa tion online Indication:Nonsmoker Start:09-Jan-2017 Instruction Type:Patient Education How to access health informa tion online - Detail Indication:Nonsmoker Start:09-Jan-2017 Instruction Type:Patient Education Patient Instructions Indication:Nonsmoker Start:09-Jan-2017 Instruction Type:Provider Instructions for Treatment How to access health informa tion online Indication:Abnormal glucose tolerance test Start:02-Jan-2017 Instruction Type:Patient Education How to access health informa tion online - Detail Indication:Abnormal glucose tolerance test Start:02-Jan-2017 Instruction Type:Patient Education Patient Instructions Indication:Abnormal glucose tolerance test Start:02-Jan-2017 Instruction Type:Provider Instructions for Treatment How to access health informa tion online Indication:Cough Start:14-Mar-2016 Instruction Type:Patient Education How to access health informa tion online - Detail Indication:Cough Start:14-Mar-2016 Instruction Type:Patient Education Patient Instructions Indication:Cough Start:14-Mar-2016 Instruction Type:Provider Instructions for Treatment How to access health informa tion online Indication:Cough Start:31-Jan-2015 Instruction Type:Patient Education How to access health informa tion online - Detail Indication:Cough Start:31-Jan-2015 Instruction Type:Patient Education Patient Instructions Indication:Cough Start:31-Jan-2015 Instruction Type:Provider Instructions for Treatment [facility]; [facility] Work Phone: Instructions* Name Dates Details Patient Instructions Indication:BMI 27.0-27.9,adult Start:30-Jan-2021 Instruction Type:Provider Instructions for Treatment How to Access Health Informa tion Online using Patient Portal and [employer] Apps Indication:BMI 27.0-27.9,adult Start:30-Jan-2021 Instruction Type:Patient Education Patient Instructions Indication:Non-smoker Start:23-Oct-2020 Instruction Type:Provider Instructions for Treatment How to Access Health Informa tion Online using Patient Portal and [employer]rd [employer] Apps Indication:Non-smoker Start:23-Oct-2020 Instruction Type:Patient Education Patient Instructions Indication:BMI 27.0-27.9,adult Start:19-Oct-2020 Instruction Type:Provider Instructions for Treatment How to Access Health Informa tion Online using Patient Portal and [employer]rd [employer] Apps Indication:BMI 27.0-27.9,adult Start:19-Oct-2020 Instruction Type:Patient Education How to access health informa tion online Indication:BMI 27.0-27.9,adult Start:16-Jan-2020 Instruction Type:Patient Education How to access health informa tion online - Detail Indication:BMI 27.0-27.9,adult Start:16-Jan-2020 Instruction Type:Patient Education Patient Instructions Indication:BMI 27.0-27.9,adult Start:16-Jan-2020 Instruction Type:Provider Instructions for Treatment How to access health informa tion online Indication:Non-smoker Start:24-Oct-2019 Instruction Type:Patient Education How to access health informa tion online - Detail Indication:Non-smoker Start:24-Oct-2019 Instruction Type:Patient Education Patient Instructions Indication:BMI 27.0-27.9,adult Start:24-Oct-2019 Instruction Type:Provider Instructions for Treatment How to access health informa tion online Indication:Non-smoker Start:25-Aug-2019 Instruction Type:Patient Education How to access health informa tion online - Detail Indication:Non-smoker Start:25-Aug-2019 Instruction Type:Patient Education Patient Instructions Indication:Non-smoker Start:25-Aug-2019 Instruction Type:Provider Instructions for Treatment How to access health informa tion online Indication:Non-smoker Start:12-May-2019 Instruction Type:Patient Education How to access health informa tion online - Detail Indication:Non-smoker Start:12-May-2019 Instruction Type:Patient Education Patient Instructions Indication:Non-smoker Start:12-May-2019 Instruction Type:Provider Instructions for Treatment How to access health informa tion online Indication:Non-smoker Start:02-May-2019 Instruction Type:Patient Education How to access health informa tion online - Detail Indication:Non-smoker Start:02-May-2019 Instruction Type:Patient Education Patient Instructions Indication:Non-smoker Start:02-May-2019 Instruction Type:Provider Instructions for Treatment How to access health informa tion online Indication:BMI 26.0-26.9,adult Start:28-Apr-2019 Instruction Type:Patient Education How to access health informa tion online - Detail Indication:BMI 26.0-26.9,adult Start:28-Apr-2019 Instruction Type:Patient Education Patient Instructions Indication:BMI 26.0-26.9,adult Start:28-Apr-2019 Instruction Type:Provider Instructions for Treatment How to access health informa tion online Indication:Cough Start:26-Apr-2019 Instruction Type:Patient Education How to access health informa tion online - Detail Indication:Cough Start:26-Apr-2019 Instruction Type:Patient Education Patient Instructions Indication:Cough Start:26-Apr-2019 Instruction Type:Provider Instructions for Treatment How to access health informa tion online Indication:Nasal congestion Start:12-Apr-2019 Instruction Type:Patient Education How to access health informa tion online - Detail Indication:Nasal congestion Start:12-Apr-2019 Instruction Type:Patient Education Patient Instructions Indication:Nasal congestion Start:12-Apr-2019 Instruction Type:Provider Instructions for Treatment How to access health informa tion online Indication:Cough Start:08-Feb-2019 Instruction Type:Patient Education How to access health informa tion online - Detail Indication:Cough Start:08-Feb-2019 Instruction Type:Patient Education Patient Instructions Indication:Cough Start:08-Feb-2019 Instruction Type:Provider Instructions for Treatment How to access health informa tion online Indication:Nonsmoker Start:29-Jul-2018 Instruction Type:Patient Education How to access health informa tion online - Detail Indication:Nonsmoker Start:29-Jul-2018 Instruction Type:Patient Education Patient Instructions Indication:Nonsmoker Start:29-Jul-2018 Instruction Type:Provider Instructions for Treatment How to access health informa tion online Indication:BMI 25.0-25.9,adult Start:26-Mar-2017 Instruction Type:Patient Education How to access health informa tion online - Detail Indication:BMI 25.0-25.9,adult Start:26-Mar-2017 Instruction Type:Patient Education Patient Instructions Indication:Chronic obstructive asthma with acute exacerbation (Renamed from Chronic obstructive asthma with exacerbation) Start:26-Mar-2017 Instruction Type:Provider Instructions for Treatment How to access health informa tion online Indication:Nonsmoker Start:09-Jan-2017 Instruction Type:Patient Education How to access health informa tion online - Detail Indication:Nonsmoker Start:09-Jan-2017 Instruction Type:Patient Education Patient Instructions Indication:Nonsmoker Start:09-Jan-2017 Instruction Type:Provider Instructions for Treatment How to access health informa tion online Indication:Abnormal glucose tolerance test Start:02-Jan-2017 Instruction Type:Patient Education How to access health informa tion online - Detail Indication:Abnormal glucose tolerance test Start:02-Jan-2017 Instruction Type:Patient Education Patient Instructions Indication:Abnormal glucose tolerance test Start:02-Jan-2017 Instruction Type:Provider Instructions for Treatment How to access health informa tion online Indication:Cough Start:14-Mar-2016 Instruction Type:Patient Education How to access health informa tion online - Detail Indication:Cough Start:14-Mar-2016 Instruction Type:Patient Education Patient Instructions Indication:Cough Start:14-Mar-2016 Instruction Type:Provider Instructions for Treatment How to access health informa tion online Indication:Cough Start:31-Jan-2015 Instruction Type:Patient Education How to access health informa tion online - Detail Indication:Cough Start:31-Jan-2015 Instruction Type:Patient Education Patient Instructions Indication:Cough Start:31-Jan-2015 Instruction Type:Provider Instructions for Treatment [facility]; [facility] Work Phone: Instructions* Name Dates Details Patient Instructions Indication:BMI 27.0-27.9,adult Start:30-Jan-2021 Instruction Type:Provider Instructions for Treatment How to Access Health Informa tion Online using Patient Portal and [employer]rd [employer] Apps Indication:BMI 27.0-27.9,adult Start:30-Jan-2021 Instruction Type:Patient Education Patient Instructions Indication:Non-smoker Start:23-Oct-2020 Instruction Type:Provider Instructions for Treatment How to Access Health Informa tion Online using Patient Portal and [employer]rd [employer] Apps Indication:Non-smoker Start:23-Oct-2020 Instruction Type:Patient Education Patient Instructions Indication:BMI 27.0-27.9,adult Start:19-Oct-2020 Instruction Type:Provider Instructions for Treatment How to Access Health Informa tion Online using Patient Portal and [employer]rd [employer] Apps Indication:BMI 27.0-27.9,adult Start:19-Oct-2020 Instruction Type:Patient Education How to access health informa tion online Indication:BMI 27.0-27.9,adult Start:16-Jan-2020 Instruction Type:Patient Education How to access health informa tion online - Detail Indication:BMI 27.0-27.9,adult Start:16-Jan-2020 Instruction Type:Patient Education Patient Instructions Indication:BMI 27.0-27.9,adult Start:16-Jan-2020 Instruction Type:Provider Instructions for Treatment How to access health informa tion online Indication:Non-smoker Start:24-Oct-2019 Instruction Type:Patient Education How to access health informa tion online - Detail Indication:Non-smoker Start:24-Oct-2019 Instruction Type:Patient Education Patient Instructions Indication:BMI 27.0-27.9,adult Start:24-Oct-2019 Instruction Type:Provider Instructions for Treatment How to access health informa tion online Indication:Non-smoker Start:25-Aug-2019 Instruction Type:Patient Education How to access health informa tion online - Detail Indication:Non-smoker Start:25-Aug-2019 Instruction Type:Patient Education Patient Instructions Indication:Non-smoker Start:25-Aug-2019 Instruction Type:Provider Instructions for Treatment How to access health informa tion online Indication:Non-smoker Start:12-May-2019 Instruction Type:Patient Education How to access health informa tion online - Detail Indication:Non-smoker Start:12-May-2019 Instruction Type:Patient Education Patient Instructions Indication:Non-smoker Start:12-May-2019 Instruction Type:Provider Instructions for Treatment How to access health informa tion online Indication:Non-smoker Start:02-May-2019 Instruction Type:Patient Education How to access health informa tion online - Detail Indication:Non-smoker Start:02-May-2019 Instruction Type:Patient Education Patient Instructions Indication:Non-smoker Start:02-May-2019 Instruction Type:Provider Instructions for Treatment How to access health informa tion online Indication:BMI 26.0-26.9,adult Start:28-Apr-2019 Instruction Type:Patient Education How to access health informa tion online - Detail Indication:BMI 26.0-26.9,adult Start:28-Apr-2019 Instruction Type:Patient Education Patient Instructions Indication:BMI 26.0-26.9,adult Start:28-Apr-2019 Instruction Type:Provider Instructions for Treatment How to access health informa tion online Indication:Cough Start:26-Apr-2019 Instruction Type:Patient Education How to access health informa tion online - Detail Indication:Cough Start:26-Apr-2019 Instruction Type:Patient Education Patient Instructions Indication:Cough Start:26-Apr-2019 Instruction Type:Provider Instructions for Treatment How to access health informa tion online Indication:Nasal congestion Start:12-Apr-2019 Instruction Type:Patient Education How to access health informa tion online - Detail Indication:Nasal congestion Start:12-Apr-2019 Instruction Type:Patient Education Patient Instructions Indication:Nasal congestion Start:12-Apr-2019 Instruction Type:Provider Instructions for Treatment How to access health informa tion online Indication:Cough Start:08-Feb-2019 Instruction Type:Patient Education How to access health informa tion online - Detail Indication:Cough Start:08-Feb-2019 Instruction Type:Patient Education Patient Instructions Indication:Cough Start:08-Feb-2019 Instruction Type:Provider Instructions for Treatment How to access health informa tion online Indication:Nonsmoker Start:29-Jul-2018 Instruction Type:Patient Education How to access health informa tion online - Detail Indication:Nonsmoker Start:29-Jul-2018 Instruction Type:Patient Education Patient Instructions Indication:Nonsmoker Start:29-Jul-2018 Instruction Type:Provider Instructions for Treatment How to access health informa tion online Indication:BMI 25.0-25.9,adult Start:26-Mar-2017 Instruction Type:Patient Education How to access health informa tion online - Detail Indication:BMI 25.0-25.9,adult Start:26-Mar-2017 Instruction Type:Patient Education Patient Instructions Indication:Chronic obstructive asthma with acute exacerbation (Renamed from Chronic obstructive asthma with exacerbation) Start:26-Mar-2017 Instruction Type:Provider Instructions for Treatment How to access health informa tion online Indication:Nonsmoker Start:09-Jan-2017 Instruction Type:Patient Education How to access health informa tion online - Detail Indication:Nonsmoker Start:09-Jan-2017 Instruction Type:Patient Education Patient Instructions Indication:Nonsmoker Start:09-Jan-2017 Instruction Type:Provider Instructions for Treatment How to access health informa tion online Indication:Abnormal glucose tolerance test Start:02-Jan-2017 Instruction Type:Patient Education How to access health informa tion online - Detail Indication:Abnormal glucose tolerance test Start:02-Jan-2017 Instruction Type:Patient Education Patient Instructions Indication:Abnormal glucose tolerance test Start:02-Jan-2017 Instruction Type:Provider Instructions for Treatment How to access health informa tion online Indication:Cough Start:14-Mar-2016 Instruction Type:Patient Education How to access health informa tion online - Detail Indication:Cough Start:14-Mar-2016 Instruction Type:Patient Education Patient Instructions Indication:Cough Start:14-Mar-2016 Instruction Type:Provider Instructions for Treatment How to access health informa tion online Indication:Cough Start:31-Jan-2015 Instruction Type:Patient Education How to access health informa tion online - Detail Indication:Cough Start:31-Jan-2015 Instruction Type:Patient Education Patient Instructions Indication:Cough Start:31-Jan-2015 Instruction Type:Provider Instructions for Treatment [facility]; [facility] Work Phone: Instructions* Name Dates Details Patient Instructions Indication:BMI 27.0-27.9,adult Start:30-Jan-2021 Instruction Type:Provider Instructions for Treatment How to Access Health Informa tion Online using Patient Portal and [employer] Apps Indication:BMI 27.0-27.9,adult Start:30-Jan-2021 Instruction Type:Patient Education Patient Instructions Indication:Non-smoker Start:23-Oct-2020 Instruction Type:Provider Instructions for Treatment How to Access Health Informa tion Online using Patient Portal and [employer]rd [employer] Apps Indication:Non-smoker Start:23-Oct-2020 Instruction Type:Patient Education Patient Instructions Indication:BMI 27.0-27.9,adult Start:19-Oct-2020 Instruction Type:Provider Instructions for Treatment How to Access Health Informa tion Online using Patient Portal and [employer]rd [employer] Apps Indication:BMI 27.0-27.9,adult Start:19-Oct-2020 Instruction Type:Patient Education How to access health informa tion online Indication:BMI 27.0-27.9,adult Start:16-Jan-2020 Instruction Type:Patient Education How to access health informa tion online - Detail Indication:BMI 27.0-27.9,adult Start:16-Jan-2020 Instruction Type:Patient Education Patient Instructions Indication:BMI 27.0-27.9,adult Start:16-Jan-2020 Instruction Type:Provider Instructions for Treatment How to access health informa tion online Indication:Non-smoker Start:24-Oct-2019 Instruction Type:Patient Education How to access health informa tion online - Detail Indication:Non-smoker Start:24-Oct-2019 Instruction Type:Patient Education Patient Instructions Indication:BMI 27.0-27.9,adult Start:24-Oct-2019 Instruction Type:Provider Instructions for Treatment How to access health informa tion online Indication:Non-smoker Start:25-Aug-2019 Instruction Type:Patient Education How to access health informa tion online - Detail Indication:Non-smoker Start:25-Aug-2019 Instruction Type:Patient Education Patient Instructions Indication:Non-smoker Start:25-Aug-2019 Instruction Type:Provider Instructions for Treatment How to access health informa tion online Indication:Non-smoker Start:12-May-2019 Instruction Type:Patient Education How to access health informa tion online - Detail Indication:Non-smoker Start:12-May-2019 Instruction Type:Patient Education Patient Instructions Indication:Non-smoker Start:12-May-2019 Instruction Type:Provider Instructions for Treatment How to access health informa tion online Indication:Non-smoker Start:02-May-2019 Instruction Type:Patient Education How to access health informa tion online - Detail Indication:Non-smoker Start:02-May-2019 Instruction Type:Patient Education Patient Instructions Indication:Non-smoker Start:02-May-2019 Instruction Type:Provider Instructions for Treatment How to access health informa tion online Indication:BMI 26.0-26.9,adult Start:28-Apr-2019 Instruction Type:Patient Education How to access health informa tion online - Detail Indication:BMI 26.0-26.9,adult Start:28-Apr-2019 Instruction Type:Patient Education Patient Instructions Indication:BMI 26.0-26.9,adult Start:28-Apr-2019 Instruction Type:Provider Instructions for Treatment How to access health informa tion online Indication:Cough Start:26-Apr-2019 Instruction Type:Patient Education How to access health informa tion online - Detail Indication:Cough Start:26-Apr-2019 Instruction Type:Patient Education Patient Instructions Indication:Cough Start:26-Apr-2019 Instruction Type:Provider Instructions for Treatment How to access health informa tion online Indication:Nasal congestion Start:12-Apr-2019 Instruction Type:Patient Education How to access health informa tion online - Detail Indication:Nasal congestion Start:12-Apr-2019 Instruction Type:Patient Education Patient Instructions Indication:Nasal congestion Start:12-Apr-2019 Instruction Type:Provider Instructions for Treatment How to access health informa tion online Indication:Cough Start:08-Feb-2019 Instruction Type:Patient Education How to access health informa tion online - Detail Indication:Cough Start:08-Feb-2019 Instruction Type:Patient Education Patient Instructions Indication:Cough Start:08-Feb-2019 Instruction Type:Provider Instructions for Treatment How to access health informa tion online Indication:Nonsmoker Start:29-Jul-2018 Instruction Type:Patient Education How to access health informa tion online - Detail Indication:Nonsmoker Start:29-Jul-2018 Instruction Type:Patient Education Patient Instructions Indication:Nonsmoker Start:29-Jul-2018 Instruction Type:Provider Instructions for Treatment How to access health informa tion online Indication:BMI 25.0-25.9,adult Start:26-Mar-2017 Instruction Type:Patient Education How to access health informa tion online - Detail Indication:BMI 25.0-25.9,adult Start:26-Mar-2017 Instruction Type:Patient Education Patient Instructions Indication:Chronic obstructive asthma with acute exacerbation (Renamed from Chronic obstructive asthma with exacerbation) Start:26-Mar-2017 Instruction Type:Provider Instructions for Treatment How to access health informa tion online Indication:Nonsmoker Start:09-Jan-2017 Instruction Type:Patient Education How to access health informa tion online - Detail Indication:Nonsmoker Start:09-Jan-2017 Instruction Type:Patient Education Patient Instructions Indication:Nonsmoker Start:09-Jan-2017 Instruction Type:Provider Instructions for Treatment How to access health informa tion online Indication:Abnormal glucose tolerance test Start:02-Jan-2017 Instruction Type:Patient Education How to access health informa tion online - Detail Indication:Abnormal glucose tolerance test Start:02-Jan-2017 Instruction Type:Patient Education Patient Instructions Indication:Abnormal glucose tolerance test Start:02-Jan-2017 Instruction Type:Provider Instructions for Treatment How to access health informa tion online Indication:Cough Start:14-Mar-2016 Instruction Type:Patient Education How to access health informa tion online - Detail Indication:Cough Start:14-Mar-2016 Instruction Type:Patient Education Patient Instructions Indication:Cough Start:14-Mar-2016 Instruction Type:Provider Instructions for Treatment How to access health informa tion online Indication:Cough Start:31-Jan-2015 Instruction Type:Patient Education How to access health informa tion online - Detail Indication:Cough Start:31-Jan-2015 Instruction Type:Patient Education Patient Instructions Indication:Cough Start:31-Jan-2015 Instruction Type:Provider Instructions for Treatment [facility]; [facility] Work Phone: Instructions* Name Dates Details Patient Instructions Indication:Non-smoker Start:13-Sep-2021 Instruction Type:Provider Instructions for Treatment How to Access Health Informa tion Online using Patient Portal and [employer] Apps Indication:Non-smoker Start:13-Sep-2021 Instruction Type:Patient Education Patient Instructions Indication:BMI 27.0-27.9,adult Start:30-Jan-2021 Instruction Type:Provider Instructions for Treatment How to Access Health Informa tion Online using Patient Portal and [employer] Apps Indication:BMI 27.0-27.9,adult Start:30-Jan-2021 Instruction Type:Patient Education Patient Instructions Indication:Non-smoker Start:23-Oct-2020 Instruction Type:Provider Instructions for Treatment How to Access Health Informa tion Online using Patient Portal and [employer] Apps Indication:Non-smoker Start:23-Oct-2020 Instruction Type:Patient Education Patient Instructions Indication:BMI 27.0-27.9,adult Start:19-Oct-2020 Instruction Type:Provider Instructions for Treatment How to Access Health Informa tion Online using Patient Portal and [employer] Apps Indication:BMI 27.0-27.9,adult Start:19-Oct-2020 Instruction Type:Patient Education How to access health informa tion online Indication:BMI 27.0-27.9,adult Start:16-Jan-2020 Instruction Type:Patient Education How to access health informa tion online - Detail Indication:BMI 27.0-27.9,adult Start:16-Jan-2020 Instruction Type:Patient Education Patient Instructions Indication:BMI 27.0-27.9,adult Start:16-Jan-2020 Instruction Type:Provider Instructions for Treatment How to access health informa tion online Indication:Non-smoker Start:24-Oct-2019 Instruction Type:Patient Education How to access health informa tion online - Detail Indication:Non-smoker Start:24-Oct-2019 Instruction Type:Patient Education Patient Instructions Indication:BMI 27.0-27.9,adult Start:24-Oct-2019 Instruction Type:Provider Instructions for Treatment How to access health informa tion online Indication:Non-smoker Start:25-Aug-2019 Instruction Type:Patient Education How to access health informa tion online - Detail Indication:Non-smoker Start:25-Aug-2019 Instruction Type:Patient Education Patient Instructions Indication:Non-smoker Start:25-Aug-2019 Instruction Type:Provider Instructions for Treatment How to access health informa tion online Indication:Non-smoker Start:12-May-2019 Instruction Type:Patient Education How to access health informa tion online - Detail Indication:Non-smoker Start:12-May-2019 Instruction Type:Patient Education Patient Instructions Indication:Non-smoker Start:12-May-2019 Instruction Type:Provider Instructions for Treatment How to access health informa tion online Indication:Non-smoker Start:02-May-2019 Instruction Type:Patient Education How to access health informa tion online - Detail Indication:Non-smoker Start:02-May-2019 Instruction Type:Patient Education Patient Instructions Indication:Non-smoker Start:02-May-2019 Instruction Type:Provider Instructions for Treatment How to access health informa tion online Indication:BMI 26.0-26.9,adult Start:28-Apr-2019 Instruction Type:Patient Education How to access health informa tion online - Detail Indication:BMI 26.0-26.9,adult Start:28-Apr-2019 Instruction Type:Patient Education Patient Instructions Indication:BMI 26.0-26.9,adult Start:28-Apr-2019 Instruction Type:Provider Instructions for Treatment How to access health informa tion online Indication:Cough Start:26-Apr-2019 Instruction Type:Patient Education How to access health informa tion online - Detail Indication:Cough Start:26-Apr-2019 Instruction Type:Patient Education Patient Instructions Indication:Cough Start:26-Apr-2019 Instruction Type:Provider Instructions for Treatment How to access health informa tion online Indication:Nasal congestion Start:12-Apr-2019 Instruction Type:Patient Education How to access health informa tion online - Detail Indication:Nasal congestion Start:12-Apr-2019 Instruction Type:Patient Education Patient Instructions Indication:Nasal congestion Start:12-Apr-2019 Instruction Type:Provider Instructions for Treatment How to access health informa tion online Indication:Cough Start:08-Feb-2019 Instruction Type:Patient Education How to access health informa tion online - Detail Indication:Cough Start:08-Feb-2019 Instruction Type:Patient Education Patient Instructions Indication:Cough Start:08-Feb-2019 Instruction Type:Provider Instructions for Treatment How to access health informa tion online Indication:Nonsmoker Start:29-Jul-2018 Instruction Type:Patient Education How to access health informa tion online - Detail Indication:Nonsmoker Start:29-Jul-2018 Instruction Type:Patient Education Patient Instructions Indication:Nonsmoker Start:29-Jul-2018 Instruction Type:Provider Instructions for Treatment How to access health informa tion online Indication:BMI 25.0-25.9,adult Start:26-Mar-2017 Instruction Type:Patient Education How to access health informa tion online - Detail Indication:BMI 25.0-25.9,adult Start:26-Mar-2017 Instruction Type:Patient Education Patient Instructions Indication:Chronic obstructive asthma with acute exacerbation (Renamed from Chronic obstructive asthma with exacerbation) Start:26-Mar-2017 Instruction Type:Provider Instructions for Treatment How to access health informa tion online Indication:Nonsmoker Start:09-Jan-2017 Instruction Type:Patient Education How to access health informa tion online - Detail Indication:Nonsmoker Start:09-Jan-2017 Instruction Type:Patient Education Patient Instructions Indication:Nonsmoker Start:09-Jan-2017 Instruction Type:Provider Instructions for Treatment How to access health informa tion online Indication:Abnormal glucose tolerance test Start:02-Jan-2017 Instruction Type:Patient Education How to access health informa tion online - Detail Indication:Abnormal glucose tolerance test Start:02-Jan-2017 Instruction Type:Patient Education Patient Instructions Indication:Abnormal glucose tolerance test Start:02-Jan-2017 Instruction Type:Provider Instructions for Treatment How to access health informa tion online Indication:Cough Start:14-Mar-2016 Instruction Type:Patient Education How to access health informa tion online - Detail Indication:Cough Start:14-Mar-2016 Instruction Type:Patient Education Patient Instructions Indication:Cough Start:14-Mar-2016 Instruction Type:Provider Instructions for Treatment How to access health informa tion online Indication:Cough Start:31-Jan-2015 Instruction Type:Patient Education How to access health informa tion online - Detail Indication:Cough Start:31-Jan-2015 Instruction Type:Patient Education Patient Instructions Indication:Cough Start:31-Jan-2015 Instruction Type:Provider Instructions for Treatment [facility]; [facility] Work Phone: Instructions* Name Dates Details Patient Instructions Indication:BMI 27.0-27.9,adult Start:18-Sep-2021 Instruction Type:Provider Instructions for Treatment How to Access Health Informa tion Online using Patient Portal and [employer] Apps Indication:BMI 27.0-27.9,adult Start:18-Sep-2021 Instruction Type:Patient Education Patient Instructions Indication:Non-smoker Start:13-Sep-2021 Instruction Type:Provider Instructions for Treatment How to Access Health Informa tion Online using Patient Portal and [employer] Apps Indication:Non-smoker Start:13-Sep-2021 Instruction Type:Patient Education Patient Instructions Indication:BMI 27.0-27.9,adult Start:30-Jan-2021 Instruction Type:Provider Instructions for Treatment How to Access Health Informa tion Online using Patient Portal and [employer] Apps Indication:BMI 27.0-27.9,adult Start:30-Jan-2021 Instruction Type:Patient Education Patient Instructions Indication:Non-smoker Start:23-Oct-2020 Instruction Type:Provider Instructions for Treatment How to Access Health Informa tion Online using Patient Portal and [employer] Apps Indication:Non-smoker Start:23-Oct-2020 Instruction Type:Patient Education Patient Instructions Indication:BMI 27.0-27.9,adult Start:19-Oct-2020 Instruction Type:Provider Instructions for Treatment How to Access Health Informa tion Online using Patient Portal and [employer] Apps Indication:BMI 27.0-27.9,adult Start:19-Oct-2020 Instruction Type:Patient Education How to access health informa tion online Indication:BMI 27.0-27.9,adult Start:16-Jan-2020 Instruction Type:Patient Education How to access health informa tion online - Detail Indication:BMI 27.0-27.9,adult Start:16-Jan-2020 Instruction Type:Patient Education Patient Instructions Indication:BMI 27.0-27.9,adult Start:16-Jan-2020 Instruction Type:Provider Instructions for Treatment How to access health informa tion online Indication:Non-smoker Start:24-Oct-2019 Instruction Type:Patient Education How to access health informa tion online - Detail Indication:Non-smoker Start:24-Oct-2019 Instruction Type:Patient Education Patient Instructions Indication:BMI 27.0-27.9,adult Start:24-Oct-2019 Instruction Type:Provider Instructions for Treatment How to access health informa tion online Indication:Non-smoker Start:25-Aug-2019 Instruction Type:Patient Education How to access health informa tion online - Detail Indication:Non-smoker Start:25-Aug-2019 Instruction Type:Patient Education Patient Instructions Indication:Non-smoker Start:25-Aug-2019 Instruction Type:Provider Instructions for Treatment How to access health informa tion online Indication:Non-smoker Start:12-May-2019 Instruction Type:Patient Education How to access health informa tion online - Detail Indication:Non-smoker Start:12-May-2019 Instruction Type:Patient Education Patient Instructions Indication:Non-smoker Start:12-May-2019 Instruction Type:Provider Instructions for Treatment How to access health informa tion online Indication:Non-smoker Start:02-May-2019 Instruction Type:Patient Education How to access health informa tion online - Detail Indication:Non-smoker Start:02-May-2019 Instruction Type:Patient Education Patient Instructions Indication:Non-smoker Start:02-May-2019 Instruction Type:Provider Instructions for Treatment How to access health informa tion online Indication:BMI 26.0-26.9,adult Start:28-Apr-2019 Instruction Type:Patient Education How to access health informa tion online - Detail Indication:BMI 26.0-26.9,adult Start:28-Apr-2019 Instruction Type:Patient Education Patient Instructions Indication:BMI 26.0-26.9,adult Start:28-Apr-2019 Instruction Type:Provider Instructions for Treatment How to access health informa tion online Indication:Cough Start:26-Apr-2019 Instruction Type:Patient Education How to access health informa tion online - Detail Indication:Cough Start:26-Apr-2019 Instruction Type:Patient Education Patient Instructions Indication:Cough Start:26-Apr-2019 Instruction Type:Provider Instructions for Treatment How to access health informa tion online Indication:Nasal congestion Start:12-Apr-2019 Instruction Type:Patient Education How to access health informa tion online - Detail Indication:Nasal congestion Start:12-Apr-2019 Instruction Type:Patient Education Patient Instructions Indication:Nasal congestion Start:12-Apr-2019 Instruction Type:Provider Instructions for Treatment How to access health informa tion online Indication:Cough Start:08-Feb-2019 Instruction Type:Patient Education How to access health informa tion online - Detail Indication:Cough Start:08-Feb-2019 Instruction Type:Patient Education Patient Instructions Indication:Cough Start:08-Feb-2019 Instruction Type:Provider Instructions for Treatment How to access health informa tion online Indication:Nonsmoker Start:29-Jul-2018 Instruction Type:Patient Education How to access health informa tion online - Detail Indication:Nonsmoker Start:29-Jul-2018 Instruction Type:Patient Education Patient Instructions Indication:Nonsmoker Start:29-Jul-2018 Instruction Type:Provider Instructions for Treatment How to access health informa tion online Indication:BMI 25.0-25.9,adult Start:26-Mar-2017 Instruction Type:Patient Education How to access health informa tion online - Detail Indication:BMI 25.0-25.9,adult Start:26-Mar-2017 Instruction Type:Patient Education Patient Instructions Indication:Chronic obstructive asthma with acute exacerbation (Renamed from Chronic obstructive asthma with exacerbation) Start:26-Mar-2017 Instruction Type:Provider Instructions for Treatment How to access health informa tion online Indication:Nonsmoker Start:09-Jan-2017 Instruction Type:Patient Education How to access health informa tion online - Detail Indication:Nonsmoker Start:09-Jan-2017 Instruction Type:Patient Education Patient Instructions Indication:Nonsmoker Start:09-Jan-2017 Instruction Type:Provider Instructions for Treatment How to access health informa tion online Indication:Abnormal glucose tolerance test Start:02-Jan-2017 Instruction Type:Patient Education How to access health informa tion online - Detail Indication:Abnormal glucose tolerance test Start:02-Jan-2017 Instruction Type:Patient Education Patient Instructions Indication:Abnormal glucose tolerance test Start:02-Jan-2017 Instruction Type:Provider Instructions for Treatment How to access health informa tion online Indication:Cough Start:14-Mar-2016 Instruction Type:Patient Education How to access health informa tion online - Detail Indication:Cough Start:14-Mar-2016 Instruction Type:Patient Education Patient Instructions Indication:Cough Start:14-Mar-2016 Instruction Type:Provider Instructions for Treatment How to access health informa tion online Indication:Cough Start:31-Jan-2015 Instruction Type:Patient Education How to access health informa tion online - Detail Indication:Cough Start:31-Jan-2015 Instruction Type:Patient Education Patient Instructions Indication:Cough Start:31-Jan-2015 Instruction Type:Provider Instructions for Treatment [facility]; [facility] Work Phone: Instructions* Name Dates Details Patient Instructions Indication:BMI 27.0-27.9,adult Start:25-Sep-2021 Instruction Type:Provider Instructions for Treatment How to Access Health Informa tion Online using Patient Portal and [employer] Apps Indication:BMI 27.0-27.9,adult Start:25-Sep-2021 Instruction Type:Patient Education Patient Instructions Indication:BMI 27.0-27.9,adult Start:18-Sep-2021 Instruction Type:Provider Instructions for Treatment How to Access Health Informa tion Online using Patient Portal and [employer] Indication:BMI 27.0-27.9,adult Start:18-Sep-2021 Instruction Type:Patient Education Patient Instructions Indication:Non-smoker Start:13-Sep-2021 Instruction Type:Provider Instructions for Treatment How to Access Health Informa tion Online using Patient Portal and [employer] Apps Indication:Non-smoker Start:13-Sep-2021 Instruction Type:Patient Education Patient Instructions Indication:BMI 27.0-27.9,adult Start:30-Jan-2021 Instruction Type:Provider Instructions for Treatment How to Access Health Informa tion Online using Patient Portal and [employer] Indication:BMI 27.0-27.9,adult Start:30-Jan-2021 Instruction Type:Patient Education Patient Instructions Indication:Non-smoker Start:23-Oct-2020 Instruction Type:Provider Instructions for Treatment How to Access Health Informa tion Online using Patient Portal and [employer] Apps Indication:Non-smoker Start:23-Oct-2020 Instruction Type:Patient Education Patient Instructions Indication:BMI 27.0-27.9,adult Start:19-Oct-2020 Instruction Type:Provider Instructions for Treatment How to Access Health Informa tion Online using Patient Portal and [employer] Apps Indication:BMI 27.0-27.9,adult Start:19-Oct-2020 Instruction Type:Patient Education How to access health informa tion online Indication:BMI 27.0-27.9,adult Start:16-Jan-2020 Instruction Type:Patient Education How to access health informa tion online - Detail Indication:BMI 27.0-27.9,adult Start:16-Jan-2020 Instruction Type:Patient Education Patient Instructions Indication:BMI 27.0-27.9,adult Start:16-Jan-2020 Instruction Type:Provider Instructions for Treatment How to access health informa tion online Indication:Non-smoker Start:24-Oct-2019 Instruction Type:Patient Education How to access health informa tion online - Detail Indication:Non-smoker Start:24-Oct-2019 Instruction Type:Patient Education Patient Instructions Indication:BMI 27.0-27.9,adult Start:24-Oct-2019 Instruction Type:Provider Instructions for Treatment How to access health informa tion online Indication:Non-smoker Start:25-Aug-2019 Instruction Type:Patient Education How to access health informa tion online - Detail Indication:Non-smoker Start:25-Aug-2019 Instruction Type:Patient Education Patient Instructions Indication:Non-smoker Start:25-Aug-2019 Instruction Type:Provider Instructions for Treatment How to access health informa tion online Indication:Non-smoker Start:12-May-2019 Instruction Type:Patient Education How to access health informa tion online - Detail Indication:Non-smoker Start:12-May-2019 Instruction Type:Patient Education Patient Instructions Indication:Non-smoker Start:12-May-2019 Instruction Type:Provider Instructions for Treatment How to access health informa tion online Indication:Non-smoker Start:02-May-2019 Instruction Type:Patient Education How to access health informa tion online - Detail Indication:Non-smoker Start:02-May-2019 Instruction Type:Patient Education Patient Instructions Indication:Non-smoker Start:02-May-2019 Instruction Type:Provider Instructions for Treatment How to access health informa tion online Indication:BMI 26.0-26.9,adult Start:28-Apr-2019 Instruction Type:Patient Education How to access health informa tion online - Detail Indication:BMI 26.0-26.9,adult Start:28-Apr-2019 Instruction Type:Patient Education Patient Instructions Indication:BMI 26.0-26.9,adult Start:28-Apr-2019 Instruction Type:Provider Instructions for Treatment How to access health informa tion online Indication:Cough Start:26-Apr-2019 Instruction Type:Patient Education How to access health informa tion online - Detail Indication:Cough Start:26-Apr-2019 Instruction Type:Patient Education Patient Instructions Indication:Cough Start:26-Apr-2019 Instruction Type:Provider Instructions for Treatment How to access health informa tion online Indication:Nasal congestion Start:12-Apr-2019 Instruction Type:Patient Education How to access health informa tion online - Detail Indication:Nasal congestion Start:12-Apr-2019 Instruction Type:Patient Education Patient Instructions Indication:Nasal congestion Start:12-Apr-2019 Instruction Type:Provider Instructions for Treatment How to access health informa tion online Indication:Cough Start:08-Feb-2019 Instruction Type:Patient Education How to access health informa tion online - Detail Indication:Cough Start:08-Feb-2019 Instruction Type:Patient Education Patient Instructions Indication:Cough Start:08-Feb-2019 Instruction Type:Provider Instructions for Treatment How to access health informa tion online Indication:Nonsmoker Start:29-Jul-2018 Instruction Type:Patient Education How to access health informa tion online - Detail Indication:Nonsmoker Start:29-Jul-2018 Instruction Type:Patient Education Patient Instructions Indication:Nonsmoker Start:29-Jul-2018 Instruction Type:Provider Instructions for Treatment How to access health informa tion online Indication:BMI 25.0-25.9,adult Start:26-Mar-2017 Instruction Type:Patient Education How to access health informa tion online - Detail Indication:BMI 25.0-25.9,adult Start:26-Mar-2017 Instruction Type:Patient Education Patient Instructions Indication:Chronic obstructive asthma with acute exacerbation (Renamed from Chronic obstructive asthma with exacerbation) Start:26-Mar-2017 Instruction Type:Provider Instructions for Treatment How to access health informa tion online Indication:Nonsmoker Start:09-Jan-2017 Instruction Type:Patient Education How to access health informa tion online - Detail Indication:Nonsmoker Start:09-Jan-2017 Instruction Type:Patient Education Patient Instructions Indication:Nonsmoker Start:09-Jan-2017 Instruction Type:Provider Instructions for Treatment How to access health informa tion online Indication:Abnormal glucose tolerance test Start:02-Jan-2017 Instruction Type:Patient Education How to access health informa tion online - Detail Indication:Abnormal glucose tolerance test Start:02-Jan-2017 Instruction Type:Patient Education Patient Instructions Indication:Abnormal glucose tolerance test Start:02-Jan-2017 Instruction Type:Provider Instructions for Treatment How to access health informa tion online Indication:Cough Start:14-Mar-2016 Instruction Type:Patient Education How to access health informa tion online - Detail Indication:Cough Start:14-Mar-2016 Instruction Type:Patient Education Patient Instructions Indication:Cough Start:14-Mar-2016 Instruction Type:Provider Instructions for Treatment How to access health informa tion online Indication:Cough Start:31-Jan-2015 Instruction Type:Patient Education How to access health informa tion online - Detail Indication:Cough Start:31-Jan-2015 Instruction Type:Patient Education Patient Instructions Indication:Cough Start:31-Jan-2015 Instruction Type:Provider Instructions for Treatment [facility]; [facility] Work Phone: Instructions* Name Dates Details Patient Instructions Indication:BMI 27.0-27.9,adult Start:25-Sep-2021 Instruction Type:Provider Instructions for Treatment How to Access Health Informa tion Online using Patient Portal and [employer] Apps Indication:BMI 27.0-27.9,adult Start:25-Sep-2021 Instruction Type:Patient Education Patient Instructions Indication:BMI 27.0-27.9,adult Start:18-Sep-2021 Instruction Type:Provider Instructions for Treatment How to Access Health Informa tion Online using Patient Portal and [employer] Apps Indication:BMI 27.0-27.9,adult Start:18-Sep-2021 Instruction Type:Patient Education Patient Instructions Indication:Non-smoker Start:13-Sep-2021 Instruction Type:Provider Instructions for Treatment How to Access Health Informa tion Online using Patient Portal and [employer] Apps Indication:Non-smoker Start:13-Sep-2021 Instruction Type:Patient Education Patient Instructions Indication:BMI 27.0-27.9,adult Start:30-Jan-2021 Instruction Type:Provider Instructions for Treatment How to Access Health Informa tion Online using Patient Portal and [employer] Apps Indication:BMI 27.0-27.9,adult Start:30-Jan-2021 Instruction Type:Patient Education Patient Instructions Indication:Non-smoker Start:23-Oct-2020 Instruction Type:Provider Instructions for Treatment How to Access Health Informa tion Online using Patient Portal and [employer] Apps Indication:Non-smoker Start:23-Oct-2020 Instruction Type:Patient Education Patient Instructions Indication:BMI 27.0-27.9,adult Start:19-Oct-2020 Instruction Type:Provider Instructions for Treatment How to Access Health Informa tion Online using Patient Portal and [employer] Apps Indication:BMI 27.0-27.9,adult Start:19-Oct-2020 Instruction Type:Patient Education How to access health informa tion online Indication:BMI 27.0-27.9,adult Start:16-Jan-2020 Instruction Type:Patient Education How to access health informa tion online - Detail Indication:BMI 27.0-27.9,adult Start:16-Jan-2020 Instruction Type:Patient Education Patient Instructions Indication:BMI 27.0-27.9,adult Start:16-Jan-2020 Instruction Type:Provider Instructions for Treatment How to access health informa tion online Indication:Non-smoker Start:24-Oct-2019 Instruction Type:Patient Education How to access health informa tion online - Detail Indication:Non-smoker Start:24-Oct-2019 Instruction Type:Patient Education Patient Instructions Indication:BMI 27.0-27.9,adult Start:24-Oct-2019 Instruction Type:Provider Instructions for Treatment How to access health informa tion online Indication:Non-smoker Start:25-Aug-2019 Instruction Type:Patient Education How to access health informa tion online - Detail Indication:Non-smoker Start:25-Aug-2019 Instruction Type:Patient Education Patient Instructions Indication:Non-smoker Start:25-Aug-2019 Instruction Type:Provider Instructions for Treatment How to access health informa tion online Indication:Non-smoker Start:12-May-2019 Instruction Type:Patient Education How to access health informa tion online - Detail Indication:Non-smoker Start:12-May-2019 Instruction Type:Patient Education Patient Instructions Indication:Non-smoker Start:12-May-2019 Instruction Type:Provider Instructions for Treatment How to access health informa tion online Indication:Non-smoker Start:02-May-2019 Instruction Type:Patient Education How to access health informa tion online - Detail Indication:Non-smoker Start:02-May-2019 Instruction Type:Patient Education Patient Instructions Indication:Non-smoker Start:02-May-2019 Instruction Type:Provider Instructions for Treatment How to access health informa tion online Indication:BMI 26.0-26.9,adult Start:28-Apr-2019 Instruction Type:Patient Education How to access health informa tion online - Detail Indication:BMI 26.0-26.9,adult Start:28-Apr-2019 Instruction Type:Patient Education Patient Instructions Indication:BMI 26.0-26.9,adult Start:28-Apr-2019 Instruction Type:Provider Instructions for Treatment How to access health informa tion online Indication:Cough Start:26-Apr-2019 Instruction Type:Patient Education How to access health informa tion online - Detail Indication:Cough Start:26-Apr-2019 Instruction Type:Patient Education Patient Instructions Indication:Cough Start:26-Apr-2019 Instruction Type:Provider Instructions for Treatment How to access health informa tion online Indication:Nasal congestion Start:12-Apr-2019 Instruction Type:Patient Education How to access health informa tion online - Detail Indication:Nasal congestion Start:12-Apr-2019 Instruction Type:Patient Education Patient Instructions Indication:Nasal congestion Start:12-Apr-2019 Instruction Type:Provider Instructions for Treatment How to access health informa tion online Indication:Cough Start:08-Feb-2019 Instruction Type:Patient Education How to access health informa tion online - Detail Indication:Cough Start:08-Feb-2019 Instruction Type:Patient Education Patient Instructions Indication:Cough Start:08-Feb-2019 Instruction Type:Provider Instructions for Treatment How to access health informa tion online Indication:Nonsmoker Start:29-Jul-2018 Instruction Type:Patient Education How to access health informa tion online - Detail Indication:Nonsmoker Start:29-Jul-2018 Instruction Type:Patient Education Patient Instructions Indication:Nonsmoker Start:29-Jul-2018 Instruction Type:Provider Instructions for Treatment How to access health informa tion online Indication:BMI 25.0-25.9,adult Start:26-Mar-2017 Instruction Type:Patient Education How to access health informa tion online - Detail Indication:BMI 25.0-25.9,adult Start:26-Mar-2017 Instruction Type:Patient Education Patient Instructions Indication:Chronic obstructive asthma with acute exacerbation (Renamed from Chronic obstructive asthma with exacerbation) Start:26-Mar-2017 Instruction Type:Provider Instructions for Treatment How to access health informa tion online Indication:Nonsmoker Start:09-Jan-2017 Instruction Type:Patient Education How to access health informa tion online - Detail Indication:Nonsmoker Start:09-Jan-2017 Instruction Type:Patient Education Patient Instructions Indication:Nonsmoker Start:09-Jan-2017 Instruction Type:Provider Instructions for Treatment How to access health informa tion online Indication:Abnormal glucose tolerance test Start:02-Jan-2017 Instruction Type:Patient Education How to access health informa tion online - Detail Indication:Abnormal glucose tolerance test Start:02-Jan-2017 Instruction Type:Patient Education Patient Instructions Indication:Abnormal glucose tolerance test Start:02-Jan-2017 Instruction Type:Provider Instructions for Treatment How to access health informa tion online Indication:Cough Start:14-Mar-2016 Instruction Type:Patient Education How to access health informa tion online - Detail Indication:Cough Start:14-Mar-2016 Instruction Type:Patient Education Patient Instructions Indication:Cough Start:14-Mar-2016 Instruction Type:Provider Instructions for Treatment How to access health informa tion online Indication:Cough Start:31-Jan-2015 Instruction Type:Patient Education How to access health informa tion online - Detail Indication:Cough Start:31-Jan-2015 Instruction Type:Patient Education Patient Instructions Indication:Cough Start:31-Jan-2015 Instruction Type:Provider Instructions for Treatment [facility]; [facility] Work Phone: Instructions* Name Dates Details Patient Instructions Indication:BMI 25.0-25.9,adult Start:21-Oct-2021 Instruction Type:Provider Instructions for Treatment How to Access Health Informa tion Online using Patient Portal and [employer]rd [employer] Apps Indication:BMI 25.0-25.9,adult Start:21-Oct-2021 Instruction Type:Patient Education Patient Instructions Indication:BMI 27.0-27.9,adult Start:25-Sep-2021 Instruction Type:Provider Instructions for Treatment How to Access Health Informa tion Online using Patient Portal and [employer]rd [employer] Apps Indication:BMI 27.0-27.9,adult Start:25-Sep-2021 Instruction Type:Patient Education Patient Instructions Indication:BMI 27.0-27.9,adult Start:18-Sep-2021 Instruction Type:Provider Instructions for Treatment How to Access Health Informa tion Online using Patient Portal and [employer]rd [employer] Apps Indication:BMI 27.0-27.9,adult Start:18-Sep-2021 Instruction Type:Patient Education Patient Instructions Indication:Non-smoker Start:13-Sep-2021 Instruction Type:Provider Instructions for Treatment How to Access Health Informa tion Online using Patient Portal and [employer]rd [employer] Apps Indication:Non-smoker Start:13-Sep-2021 Instruction Type:Patient Education Patient Instructions Indication:BMI 27.0-27.9,adult Start:30-Jan-2021 Instruction Type:Provider Instructions for Treatment How to Access Health Informa tion Online using Patient Portal and [employer]rd [employer] Apps Indication:BMI 27.0-27.9,adult Start:30-Jan-2021 Instruction Type:Patient Education Patient Instructions Indication:Non-smoker Start:23-Oct-2020 Instruction Type:Provider Instructions for Treatment How to Access Health Informa tion Online using Patient Portal and [employer]rd [employer] Apps Indication:Non-smoker Start:23-Oct-2020 Instruction Type:Patient Education Patient Instructions Indication:BMI 27.0-27.9,adult Start:19-Oct-2020 Instruction Type:Provider Instructions for Treatment How to Access Health Informa tion Online using Patient Portal and [employer]rd [employer] Apps Indication:BMI 27.0-27.9,adult Start:19-Oct-2020 Instruction Type:Patient Education How to access health informa tion online Indication:BMI 27.0-27.9,adult Start:16-Jan-2020 Instruction Type:Patient Education How to access health informa tion online - Detail Indication:BMI 27.0-27.9,adult Start:16-Jan-2020 Instruction Type:Patient Education Patient Instructions Indication:BMI 27.0-27.9,adult Start:16-Jan-2020 Instruction Type:Provider Instructions for Treatment How to access health informa tion online Indication:Non-smoker Start:24-Oct-2019 Instruction Type:Patient Education How to access health informa tion online - Detail Indication:Non-smoker Start:24-Oct-2019 Instruction Type:Patient Education Patient Instructions Indication:BMI 27.0-27.9,adult Start:24-Oct-2019 Instruction Type:Provider Instructions for Treatment How to access health informa tion online Indication:Non-smoker Start:25-Aug-2019 Instruction Type:Patient Education How to access health informa tion online - Detail Indication:Non-smoker Start:25-Aug-2019 Instruction Type:Patient Education Patient Instructions Indication:Non-smoker Start:25-Aug-2019 Instruction Type:Provider Instructions for Treatment How to access health informa tion online Indication:Non-smoker Start:12-May-2019 Instruction Type:Patient Education How to access health informa tion online - Detail Indication:Non-smoker Start:12-May-2019 Instruction Type:Patient Education Patient Instructions Indication:Non-smoker Start:12-May-2019 Instruction Type:Provider Instructions for Treatment How to access health informa tion online Indication:Non-smoker Start:02-May-2019 Instruction Type:Patient Education How to access health informa tion online - Detail Indication:Non-smoker Start:02-May-2019 Instruction Type:Patient Education Patient Instructions Indication:Non-smoker Start:02-May-2019 Instruction Type:Provider Instructions for Treatment How to access health informa tion online Indication:BMI 26.0-26.9,adult Start:28-Apr-2019 Instruction Type:Patient Education How to access health informa tion online - Detail Indication:BMI 26.0-26.9,adult Start:28-Apr-2019 Instruction Type:Patient Education Patient Instructions Indication:BMI 26.0-26.9,adult Start:28-Apr-2019 Instruction Type:Provider Instructions for Treatment How to access health informa tion online Indication:Cough Start:26-Apr-2019 Instruction Type:Patient Education How to access health informa tion online - Detail Indication:Cough Start:26-Apr-2019 Instruction Type:Patient Education Patient Instructions Indication:Cough Start:26-Apr-2019 Instruction Type:Provider Instructions for Treatment How to access health informa tion online Indication:Nasal congestion Start:12-Apr-2019 Instruction Type:Patient Education How to access health informa tion online - Detail Indication:Nasal congestion Start:12-Apr-2019 Instruction Type:Patient Education Patient Instructions Indication:Nasal congestion Start:12-Apr-2019 Instruction Type:Provider Instructions for Treatment How to access health informa tion online Indication:Cough Start:08-Feb-2019 Instruction Type:Patient Education How to access health informa tion online - Detail Indication:Cough Start:08-Feb-2019 Instruction Type:Patient Education Patient Instructions Indication:Cough Start:08-Feb-2019 Instruction Type:Provider Instructions for Treatment How to access health informa tion online Indication:Nonsmoker Start:29-Jul-2018 Instruction Type:Patient Education How to access health informa tion online - Detail Indication:Nonsmoker Start:29-Jul-2018 Instruction Type:Patient Education Patient Instructions Indication:Nonsmoker Start:29-Jul-2018 Instruction Type:Provider Instructions for Treatment How to access health informa tion online Indication:BMI 25.0-25.9,adult Start:26-Mar-2017 Instruction Type:Patient Education How to access health informa tion online - Detail Indication:BMI 25.0-25.9,adult Start:26-Mar-2017 Instruction Type:Patient Education Patient Instructions Indication:Chronic obstructive asthma with acute exacerbation (Renamed from Chronic obstructive asthma with exacerbation) Start:26-Mar-2017 Instruction Type:Provider Instructions for Treatment How to access health informa tion online Indication:Nonsmoker Start:09-Jan-2017 Instruction Type:Patient Education How to access health informa tion online - Detail Indication:Nonsmoker Start:09-Jan-2017 Instruction Type:Patient Education Patient Instructions Indication:Nonsmoker Start:09-Jan-2017 Instruction Type:Provider Instructions for Treatment How to access health informa tion online Indication:Abnormal glucose tolerance test Start:02-Jan-2017 Instruction Type:Patient Education How to access health informa tion online - Detail Indication:Abnormal glucose tolerance test Start:02-Jan-2017 Instruction Type:Patient Education Patient Instructions Indication:Abnormal glucose tolerance test Start:02-Jan-2017 Instruction Type:Provider Instructions for Treatment How to access health informa tion online Indication:Cough Start:14-Mar-2016 Instruction Type:Patient Education How to access health informa tion online - Detail Indication:Cough Start:14-Mar-2016 Instruction Type:Patient Education Patient Instructions Indication:Cough Start:14-Mar-2016 Instruction Type:Provider Instructions for Treatment How to access health informa tion online Indication:Cough Start:31-Jan-2015 Instruction Type:Patient Education How to access health informa tion online - Detail Indication:Cough Start:31-Jan-2015 Instruction Type:Patient Education Patient Instructions Indication:Cough Start:31-Jan-2015 Instruction Type:Provider Instructions for Treatment [facility]; [facility] Work Phone: Instructions* Name Dates Details Patient Instructions Indication:BMI 25.0-25.9,adult Start:21-Oct-2021 Instruction Type:Provider Instructions for Treatment How to Access Health Informa tion Online using Patient Portal and [employer]rd [employer] Apps Indication:BMI 25.0-25.9,adult Start:21-Oct-2021 Instruction Type:Patient Education Patient Instructions Indication:BMI 27.0-27.9,adult Start:25-Sep-2021 Instruction Type:Provider Instructions for Treatment How to Access Health Informa tion Online using Patient Portal and [employer]rd [employer] Apps Indication:BMI 27.0-27.9,adult Start:25-Sep-2021 Instruction Type:Patient Education Patient Instructions Indication:BMI 27.0-27.9,adult Start:18-Sep-2021 Instruction Type:Provider Instructions for Treatment How to Access Health Informa tion Online using Patient Portal and [employer]rd [employer] Apps Indication:BMI 27.0-27.9,adult Start:18-Sep-2021 Instruction Type:Patient Education Patient Instructions Indication:Non-smoker Start:13-Sep-2021 Instruction Type:Provider Instructions for Treatment How to Access Health Informa tion Online using Patient Portal and [employer]rd [employer] Apps Indication:Non-smoker Start:13-Sep-2021 Instruction Type:Patient Education Patient Instructions Indication:BMI 27.0-27.9,adult Start:30-Jan-2021 Instruction Type:Provider Instructions for Treatment How to Access Health Informa tion Online using Patient Portal and [employer]rd [employer] Apps Indication:BMI 27.0-27.9,adult Start:30-Jan-2021 Instruction Type:Patient Education Patient Instructions Indication:Non-smoker Start:23-Oct-2020 Instruction Type:Provider Instructions for Treatment How to Access Health Informa tion Online using Patient Portal and [employer] Apps Indication:Non-smoker Start:23-Oct-2020 Instruction Type:Patient Education Patient Instructions Indication:BMI 27.0-27.9,adult Start:19-Oct-2020 Instruction Type:Provider Instructions for Treatment How to Access Health Informa tion Online using Patient Portal and [employer]rd [employer] Apps Indication:BMI 27.0-27.9,adult Start:19-Oct-2020 Instruction Type:Patient Education How to access health informa tion online Indication:BMI 27.0-27.9,adult Start:16-Jan-2020 Instruction Type:Patient Education How to access health informa tion online - Detail Indication:BMI 27.0-27.9,adult Start:16-Jan-2020 Instruction Type:Patient Education Patient Instructions Indication:BMI 27.0-27.9,adult Start:16-Jan-2020 Instruction Type:Provider Instructions for Treatment How to access health informa tion online Indication:Non-smoker Start:24-Oct-2019 Instruction Type:Patient Education How to access health informa tion online - Detail Indication:Non-smoker Start:24-Oct-2019 Instruction Type:Patient Education Patient Instructions Indication:BMI 27.0-27.9,adult Start:24-Oct-2019 Instruction Type:Provider Instructions for Treatment How to access health informa tion online Indication:Non-smoker Start:25-Aug-2019 Instruction Type:Patient Education How to access health informa tion online - Detail Indication:Non-smoker Start:25-Aug-2019 Instruction Type:Patient Education Patient Instructions Indication:Non-smoker Start:25-Aug-2019 Instruction Type:Provider Instructions for Treatment How to access health informa tion online Indication:Non-smoker Start:12-May-2019 Instruction Type:Patient Education How to access health informa tion online - Detail Indication:Non-smoker Start:12-May-2019 Instruction Type:Patient Education Patient Instructions Indication:Non-smoker Start:12-May-2019 Instruction Type:Provider Instructions for Treatment How to access health informa tion online Indication:Non-smoker Start:02-May-2019 Instruction Type:Patient Education How to access health informa tion online - Detail Indication:Non-smoker Start:02-May-2019 Instruction Type:Patient Education Patient Instructions Indication:Non-smoker Start:02-May-2019 Instruction Type:Provider Instructions for Treatment How to access health informa tion online Indication:BMI 26.0-26.9,adult Start:28-Apr-2019 Instruction Type:Patient Education How to access health informa tion online - Detail Indication:BMI 26.0-26.9,adult Start:28-Apr-2019 Instruction Type:Patient Education Patient Instructions Indication:BMI 26.0-26.9,adult Start:28-Apr-2019 Instruction Type:Provider Instructions for Treatment How to access health informa tion online Indication:Cough Start:26-Apr-2019 Instruction Type:Patient Education How to access health informa tion online - Detail Indication:Cough Start:26-Apr-2019 Instruction Type:Patient Education Patient Instructions Indication:Cough Start:26-Apr-2019 Instruction Type:Provider Instructions for Treatment How to access health informa tion online Indication:Nasal congestion Start:12-Apr-2019 Instruction Type:Patient Education How to access health informa tion online - Detail Indication:Nasal congestion Start:12-Apr-2019 Instruction Type:Patient Education Patient Instructions Indication:Nasal congestion Start:12-Apr-2019 Instruction Type:Provider Instructions for Treatment How to access health informa tion online Indication:Cough Start:08-Feb-2019 Instruction Type:Patient Education How to access health informa tion online - Detail Indication:Cough Start:08-Feb-2019 Instruction Type:Patient Education Patient Instructions Indication:Cough Start:08-Feb-2019 Instruction Type:Provider Instructions for Treatment How to access health informa tion online Indication:Nonsmoker Start:29-Jul-2018 Instruction Type:Patient Education How to access health informa tion online - Detail Indication:Nonsmoker Start:29-Jul-2018 Instruction Type:Patient Education Patient Instructions Indication:Nonsmoker Start:29-Jul-2018 Instruction Type:Provider Instructions for Treatment How to access health informa tion online Indication:BMI 25.0-25.9,adult Start:26-Mar-2017 Instruction Type:Patient Education How to access health informa tion online - Detail Indication:BMI 25.0-25.9,adult Start:26-Mar-2017 Instruction Type:Patient Education Patient Instructions Indication:Chronic obstructive asthma with acute exacerbation (Renamed from Chronic obstructive asthma with exacerbation) Start:26-Mar-2017 Instruction Type:Provider Instructions for Treatment How to access health informa tion online Indication:Nonsmoker Start:09-Jan-2017 Instruction Type:Patient Education How to access health informa tion online - Detail Indication:Nonsmoker Start:09-Jan-2017 Instruction Type:Patient Education Patient Instructions Indication:Nonsmoker Start:09-Jan-2017 Instruction Type:Provider Instructions for Treatment How to access health informa tion online Indication:Abnormal glucose tolerance test Start:02-Jan-2017 Instruction Type:Patient Education How to access health informa tion online - Detail Indication:Abnormal glucose tolerance test Start:02-Jan-2017 Instruction Type:Patient Education Patient Instructions Indication:Abnormal glucose tolerance test Start:02-Jan-2017 Instruction Type:Provider Instructions for Treatment How to access health informa tion online Indication:Cough Start:14-Mar-2016 Instruction Type:Patient Education How to access health informa tion online - Detail Indication:Cough Start:14-Mar-2016 Instruction Type:Patient Education Patient Instructions Indication:Cough Start:14-Mar-2016 Instruction Type:Provider Instructions for Treatment How to access health informa tion online Indication:Cough Start:31-Jan-2015 Instruction Type:Patient Education How to access health informa tion online - Detail Indication:Cough Start:31-Jan-2015 Instruction Type:Patient Education Patient Instructions Indication:Cough Start:31-Jan-2015 Instruction Type:Provider Instructions for Treatment [facility]; [facility] Work Phone: Instructions* Name Dates Details Patient Instructions Indication:BMI 25.0-25.9,adult Start:21-Oct-2021 Instruction Type:Provider Instructions for Treatment How to Access Health Informa tion Online using Patient Portal and [employer]rd [employer] Apps Indication:BMI 25.0-25.9,adult Start:21-Oct-2021 Instruction Type:Patient Education Patient Instructions Indication:BMI 27.0-27.9,adult Start:25-Sep-2021 Instruction Type:Provider Instructions for Treatment How to Access Health Informa tion Online using Patient Portal and [employer]rd [employer] Apps Indication:BMI 27.0-27.9,adult Start:25-Sep-2021 Instruction Type:Patient Education Patient Instructions Indication:BMI 27.0-27.9,adult Start:18-Sep-2021 Instruction Type:Provider Instructions for Treatment How to Access Health Informa tion Online using Patient Portal and [employer]rd [employer] Apps Indication:BMI 27.0-27.9,adult Start:18-Sep-2021 Instruction Type:Patient Education Patient Instructions Indication:Non-smoker Start:13-Sep-2021 Instruction Type:Provider Instructions for Treatment How to Access Health Informa tion Online using Patient Portal and [employer]rd [employer] Apps Indication:Non-smoker Start:13-Sep-2021 Instruction Type:Patient Education Patient Instructions Indication:BMI 27.0-27.9,adult Start:30-Jan-2021 Instruction Type:Provider Instructions for Treatment How to Access Health Informa tion Online using Patient Portal and [employer]rd [employer] Apps Indication:BMI 27.0-27.9,adult Start:30-Jan-2021 Instruction Type:Patient Education Patient Instructions Indication:Non-smoker Start:23-Oct-2020 Instruction Type:Provider Instructions for Treatment How to Access Health Informa tion Online using Patient Portal and [employer] Apps Indication:Non-smoker Start:23-Oct-2020 Instruction Type:Patient Education Patient Instructions Indication:BMI 27.0-27.9,adult Start:19-Oct-2020 Instruction Type:Provider Instructions for Treatment How to Access Health Informa tion Online using Patient Portal and [employer]rd [employer] Apps Indication:BMI 27.0-27.9,adult Start:19-Oct-2020 Instruction Type:Patient Education How to access health informa tion online Indication:BMI 27.0-27.9,adult Start:16-Jan-2020 Instruction Type:Patient Education How to access health informa tion online - Detail Indication:BMI 27.0-27.9,adult Start:16-Jan-2020 Instruction Type:Patient Education Patient Instructions Indication:BMI 27.0-27.9,adult Start:16-Jan-2020 Instruction Type:Provider Instructions for Treatment How to access health informa tion online Indication:Non-smoker Start:24-Oct-2019 Instruction Type:Patient Education How to access health informa tion online - Detail Indication:Non-smoker Start:24-Oct-2019 Instruction Type:Patient Education Patient Instructions Indication:BMI 27.0-27.9,adult Start:24-Oct-2019 Instruction Type:Provider Instructions for Treatment How to access health informa tion online Indication:Non-smoker Start:25-Aug-2019 Instruction Type:Patient Education How to access health informa tion online - Detail Indication:Non-smoker Start:25-Aug-2019 Instruction Type:Patient Education Patient Instructions Indication:Non-smoker Start:25-Aug-2019 Instruction Type:Provider Instructions for Treatment How to access health informa tion online Indication:Non-smoker Start:12-May-2019 Instruction Type:Patient Education How to access health informa tion online - Detail Indication:Non-smoker Start:12-May-2019 Instruction Type:Patient Education Patient Instructions Indication:Non-smoker Start:12-May-2019 Instruction Type:Provider Instructions for Treatment How to access health informa tion online Indication:Non-smoker Start:02-May-2019 Instruction Type:Patient Education How to access health informa tion online - Detail Indication:Non-smoker Start:02-May-2019 Instruction Type:Patient Education Patient Instructions Indication:Non-smoker Start:02-May-2019 Instruction Type:Provider Instructions for Treatment How to access health informa tion online Indication:BMI 26.0-26.9,adult Start:28-Apr-2019 Instruction Type:Patient Education How to access health informa tion online - Detail Indication:BMI 26.0-26.9,adult Start:28-Apr-2019 Instruction Type:Patient Education Patient Instructions Indication:BMI 26.0-26.9,adult Start:28-Apr-2019 Instruction Type:Provider Instructions for Treatment How to access health informa tion online Indication:Cough Start:26-Apr-2019 Instruction Type:Patient Education How to access health informa tion online - Detail Indication:Cough Start:26-Apr-2019 Instruction Type:Patient Education Patient Instructions Indication:Cough Start:26-Apr-2019 Instruction Type:Provider Instructions for Treatment How to access health informa tion online Indication:Nasal congestion Start:12-Apr-2019 Instruction Type:Patient Education How to access health informa tion online - Detail Indication:Nasal congestion Start:12-Apr-2019 Instruction Type:Patient Education Patient Instructions Indication:Nasal congestion Start:12-Apr-2019 Instruction Type:Provider Instructions for Treatment How to access health informa tion online Indication:Cough Start:08-Feb-2019 Instruction Type:Patient Education How to access health informa tion online - Detail Indication:Cough Start:08-Feb-2019 Instruction Type:Patient Education Patient Instructions Indication:Cough Start:08-Feb-2019 Instruction Type:Provider Instructions for Treatment How to access health informa tion online Indication:Nonsmoker Start:29-Jul-2018 Instruction Type:Patient Education How to access health informa tion online - Detail Indication:Nonsmoker Start:29-Jul-2018 Instruction Type:Patient Education Patient Instructions Indication:Nonsmoker Start:29-Jul-2018 Instruction Type:Provider Instructions for Treatment How to access health informa tion online Indication:BMI 25.0-25.9,adult Start:26-Mar-2017 Instruction Type:Patient Education How to access health informa tion online - Detail Indication:BMI 25.0-25.9,adult Start:26-Mar-2017 Instruction Type:Patient Education Patient Instructions Indication:Chronic obstructive asthma with acute exacerbation (Renamed from Chronic obstructive asthma with exacerbation) Start:26-Mar-2017 Instruction Type:Provider Instructions for Treatment How to access health informa tion online Indication:Nonsmoker Start:09-Jan-2017 Instruction Type:Patient Education How to access health informa tion online - Detail Indication:Nonsmoker Start:09-Jan-2017 Instruction Type:Patient Education Patient Instructions Indication:Nonsmoker Start:09-Jan-2017 Instruction Type:Provider Instructions for Treatment How to access health informa tion online Indication:Abnormal glucose tolerance test Start:02-Jan-2017 Instruction Type:Patient Education How to access health informa tion online - Detail Indication:Abnormal glucose tolerance test Start:02-Jan-2017 Instruction Type:Patient Education Patient Instructions Indication:Abnormal glucose tolerance test Start:02-Jan-2017 Instruction Type:Provider Instructions for Treatment How to access health informa tion online Indication:Cough Start:14-Mar-2016 Instruction Type:Patient Education How to access health informa tion online - Detail Indication:Cough Start:14-Mar-2016 Instruction Type:Patient Education Patient Instructions Indication:Cough Start:14-Mar-2016 Instruction Type:Provider Instructions for Treatment How to access health informa tion online Indication:Cough Start:31-Jan-2015 Instruction Type:Patient Education How to access health informa tion online - Detail Indication:Cough Start:31-Jan-2015 Instruction Type:Patient Education Patient Instructions Indication:Cough Start:31-Jan-2015 Instruction Type:Provider Instructions for Treatment [facility]; [facility] Work Phone: Instructions* Name Dates Details Patient Instructions Indication:BMI 25.0-25.9,adult Start:21-Oct-2021 Instruction Type:Provider Instructions for Treatment How to Access Health Informa tion Online using Patient Portal and [employer] Apps Indication:BMI 25.0-25.9,adult Start:21-Oct-2021 Instruction Type:Patient Education Patient Instructions Indication:BMI 27.0-27.9,adult Start:25-Sep-2021 Instruction Type:Provider Instructions for Treatment How to Access Health Informa tion Online using Patient Portal and [employer] Apps Indication:BMI 27.0-27.9,adult Start:25-Sep-2021 Instruction Type:Patient Education Patient Instructions Indication:BMI 27.0-27.9,adult Start:18-Sep-2021 Instruction Type:Provider Instructions for Treatment How to Access Health Informa tion Online using Patient Portal and [employer] Apps Indication:BMI 27.0-27.9,adult Start:18-Sep-2021 Instruction Type:Patient Education Patient Instructions Indication:Non-smoker Start:13-Sep-2021 Instruction Type:Provider Instructions for Treatment How to Access Health Informa tion Online using Patient Portal and [employer] Apps Indication:Non-smoker Start:13-Sep-2021 Instruction Type:Patient Education Patient Instructions Indication:BMI 27.0-27.9,adult Start:30-Jan-2021 Instruction Type:Provider Instructions for Treatment How to Access Health Informa tion Online using Patient Portal and [employer] Apps Indication:BMI 27.0-27.9,adult Start:30-Jan-2021 Instruction Type:Patient Education Patient Instructions Indication:Non-smoker Start:23-Oct-2020 Instruction Type:Provider Instructions for Treatment How to Access Health Informa tion Online using Patient Portal and [employer] Apps Indication:Non-smoker Start:23-Oct-2020 Instruction Type:Patient Education Patient Instructions Indication:BMI 27.0-27.9,adult Start:19-Oct-2020 Instruction Type:Provider Instructions for Treatment How to Access Health Informa tion Online using Patient Portal and [employer] Apps Indication:BMI 27.0-27.9,adult Start:19-Oct-2020 Instruction Type:Patient Education How to access health informa tion online Indication:BMI 27.0-27.9,adult Start:16-Jan-2020 Instruction Type:Patient Education How to access health informa tion online - Detail Indication:BMI 27.0-27.9,adult Start:16-Jan-2020 Instruction Type:Patient Education Patient Instructions Indication:BMI 27.0-27.9,adult Start:16-Jan-2020 Instruction Type:Provider Instructions for Treatment How to access health informa tion online Indication:Non-smoker Start:24-Oct-2019 Instruction Type:Patient Education How to access health informa tion online - Detail Indication:Non-smoker Start:24-Oct-2019 Instruction Type:Patient Education Patient Instructions Indication:BMI 27.0-27.9,adult Start:24-Oct-2019 Instruction Type:Provider Instructions for Treatment How to access health informa tion online Indication:Non-smoker Start:25-Aug-2019 Instruction Type:Patient Education How to access health informa tion online - Detail Indication:Non-smoker Start:25-Aug-2019 Instruction Type:Patient Education Patient Instructions Indication:Non-smoker Start:25-Aug-2019 Instruction Type:Provider Instructions for Treatment How to access health informa tion online Indication:Non-smoker Start:12-May-2019 Instruction Type:Patient Education How to access health informa tion online - Detail Indication:Non-smoker Start:12-May-2019 Instruction Type:Patient Education Patient Instructions Indication:Non-smoker Start:12-May-2019 Instruction Type:Provider Instructions for Treatment How to access health informa tion online Indication:Non-smoker Start:02-May-2019 Instruction Type:Patient Education How to access health informa tion online - Detail Indication:Non-smoker Start:02-May-2019 Instruction Type:Patient Education Patient Instructions Indication:Non-smoker Start:02-May-2019 Instruction Type:Provider Instructions for Treatment How to access health informa tion online Indication:BMI 26.0-26.9,adult Start:28-Apr-2019 Instruction Type:Patient Education How to access health informa tion online - Detail Indication:BMI 26.0-26.9,adult Start:28-Apr-2019 Instruction Type:Patient Education Patient Instructions Indication:BMI 26.0-26.9,adult Start:28-Apr-2019 Instruction Type:Provider Instructions for Treatment How to access health informa tion online Indication:Cough Start:26-Apr-2019 Instruction Type:Patient Education How to access health informa tion online - Detail Indication:Cough Start:26-Apr-2019 Instruction Type:Patient Education Patient Instructions Indication:Cough Start:26-Apr-2019 Instruction Type:Provider Instructions for Treatment How to access health informa tion online Indication:Nasal congestion Start:12-Apr-2019 Instruction Type:Patient Education How to access health informa tion online - Detail Indication:Nasal congestion Start:12-Apr-2019 Instruction Type:Patient Education Patient Instructions Indication:Nasal congestion Start:12-Apr-2019 Instruction Type:Provider Instructions for Treatment How to access health informa tion online Indication:Cough Start:08-Feb-2019 Instruction Type:Patient Education How to access health informa tion online - Detail Indication:Cough Start:08-Feb-2019 Instruction Type:Patient Education Patient Instructions Indication:Cough Start:08-Feb-2019 Instruction Type:Provider Instructions for Treatment How to access health informa tion online Indication:Nonsmoker Start:29-Jul-2018 Instruction Type:Patient Education How to access health informa tion online - Detail Indication:Nonsmoker Start:29-Jul-2018 Instruction Type:Patient Education Patient Instructions Indication:Nonsmoker Start:29-Jul-2018 Instruction Type:Provider Instructions for Treatment How to access health informa tion online Indication:BMI 25.0-25.9,adult Start:26-Mar-2017 Instruction Type:Patient Education How to access health informa tion online - Detail Indication:BMI 25.0-25.9,adult Start:26-Mar-2017 Instruction Type:Patient Education Patient Instructions Indication:Chronic obstructive asthma with acute exacerbation (Renamed from Chronic obstructive asthma with exacerbation) Start:26-Mar-2017 Instruction Type:Provider Instructions for Treatment How to access health informa tion online Indication:Nonsmoker Start:09-Jan-2017 Instruction Type:Patient Education How to access health informa tion online - Detail Indication:Nonsmoker Start:09-Jan-2017 Instruction Type:Patient Education Patient Instructions Indication:Nonsmoker Start:09-Jan-2017 Instruction Type:Provider Instructions for Treatment How to access health informa tion online Indication:Abnormal glucose tolerance test Start:02-Jan-2017 Instruction Type:Patient Education How to access health informa tion online - Detail Indication:Abnormal glucose tolerance test Start:02-Jan-2017 Instruction Type:Patient Education Patient Instructions Indication:Abnormal glucose tolerance test Start:02-Jan-2017 Instruction Type:Provider Instructions for Treatment How to access health informa tion online Indication:Cough Start:14-Mar-2016 Instruction Type:Patient Education How to access health informa tion online - Detail Indication:Cough Start:14-Mar-2016 Instruction Type:Patient Education Patient Instructions Indication:Cough Start:14-Mar-2016 Instruction Type:Provider Instructions for Treatment How to access health informa tion online Indication:Cough Start:31-Jan-2015 Instruction Type:Patient Education How to access health informa tion online - Detail Indication:Cough Start:31-Jan-2015 Instruction Type:Patient Education Patient Instructions Indication:Cough Start:31-Jan-2015 Instruction Type:Provider Instructions for Treatment [facility]; [facility] Work Phone: Instructions* Name Dates Details Patient Instructions Indication:BMI 25.0-25.9,adult Start:06-Jan-2022 Instruction Type:Provider Instructions for Treatment How to Access Health Informa tion Online using Patient Portal and [employer] Apps Indication:BMI 25.0-25.9,adult Start:06-Jan-2022 Instruction Type:Patient Education Patient Instructions Indication:BMI 25.0-25.9,adult Start:21-Oct-2021 Instruction Type:Provider Instructions for Treatment How to Access Health Informa tion Online using Patient Portal and [employer] Apps Indication:BMI 25.0-25.9,adult Start:21-Oct-2021 Instruction Type:Patient Education Patient Instructions Indication:BMI 27.0-27.9,adult Start:25-Sep-2021 Instruction Type:Provider Instructions for Treatment How to Access Health Informa tion Online using Patient Portal and [employer] Apps Indication:BMI 27.0-27.9,adult Start:25-Sep-2021 Instruction Type:Patient Education Patient Instructions Indication:BMI 27.0-27.9,adult Start:18-Sep-2021 Instruction Type:Provider Instructions for Treatment How to Access Health Informa tion Online using Patient Portal and [employer] Apps Indication:BMI 27.0-27.9,adult Start:18-Sep-2021 Instruction Type:Patient Education Patient Instructions Indication:Non-smoker Start:13-Sep-2021 Instruction Type:Provider Instructions for Treatment How to Access Health Informa tion Online using Patient Portal and [employer] Apps Indication:Non-smoker Start:13-Sep-2021 Instruction Type:Patient Education Patient Instructions Indication:BMI 27.0-27.9,adult Start:30-Jan-2021 Instruction Type:Provider Instructions for Treatment How to Access Health Informa tion Online using Patient Portal and [employer] Apps Indication:BMI 27.0-27.9,adult Start:30-Jan-2021 Instruction Type:Patient Education Patient Instructions Indication:Non-smoker Start:23-Oct-2020 Instruction Type:Provider Instructions for Treatment How to Access Health Informa tion Online using Patient Portal and [employer] Apps Indication:Non-smoker Start:23-Oct-2020 Instruction Type:Patient Education Patient Instructions Indication:BMI 27.0-27.9,adult Start:19-Oct-2020 Instruction Type:Provider Instructions for Treatment How to Access Health Informa tion Online using Patient Portal and [employer] Apps Indication:BMI 27.0-27.9,adult Start:19-Oct-2020 Instruction Type:Patient Education How to access health informa tion online Indication:BMI 27.0-27.9,adult Start:16-Jan-2020 Instruction Type:Patient Education How to access health informa tion online - Detail Indication:BMI 27.0-27.9,adult Start:16-Jan-2020 Instruction Type:Patient Education Patient Instructions Indication:BMI 27.0-27.9,adult Start:16-Jan-2020 Instruction Type:Provider Instructions for Treatment How to access health informa tion online Indication:Non-smoker Start:24-Oct-2019 Instruction Type:Patient Education How to access health informa tion online - Detail Indication:Non-smoker Start:24-Oct-2019 Instruction Type:Patient Education Patient Instructions Indication:BMI 27.0-27.9,adult Start:24-Oct-2019 Instruction Type:Provider Instructions for Treatment How to access health informa tion online Indication:Non-smoker Start:25-Aug-2019 Instruction Type:Patient Education How to access health informa tion online - Detail Indication:Non-smoker Start:25-Aug-2019 Instruction Type:Patient Education Patient Instructions Indication:Non-smoker Start:25-Aug-2019 Instruction Type:Provider Instructions for Treatment How to access health informa tion online Indication:Non-smoker Start:12-May-2019 Instruction Type:Patient Education How to access health informa tion online - Detail Indication:Non-smoker Start:12-May-2019 Instruction Type:Patient Education Patient Instructions Indication:Non-smoker Start:12-May-2019 Instruction Type:Provider Instructions for Treatment How to access health informa tion online Indication:Non-smoker Start:02-May-2019 Instruction Type:Patient Education How to access health informa tion online - Detail Indication:Non-smoker Start:02-May-2019 Instruction Type:Patient Education Patient Instructions Indication:Non-smoker Start:02-May-2019 Instruction Type:Provider Instructions for Treatment How to access health informa tion online Indication:BMI 26.0-26.9,adult Start:28-Apr-2019 Instruction Type:Patient Education How to access health informa tion online - Detail Indication:BMI 26.0-26.9,adult Start:28-Apr-2019 Instruction Type:Patient Education Patient Instructions Indication:BMI 26.0-26.9,adult Start:28-Apr-2019 Instruction Type:Provider Instructions for Treatment How to access health informa tion online Indication:Cough Start:26-Apr-2019 Instruction Type:Patient Education How to access health informa tion online - Detail Indication:Cough Start:26-Apr-2019 Instruction Type:Patient Education Patient Instructions Indication:Cough Start:26-Apr-2019 Instruction Type:Provider Instructions for Treatment How to access health informa tion online Indication:Nasal congestion Start:12-Apr-2019 Instruction Type:Patient Education How to access health informa tion online - Detail Indication:Nasal congestion Start:12-Apr-2019 Instruction Type:Patient Education Patient Instructions Indication:Nasal congestion Start:12-Apr-2019 Instruction Type:Provider Instructions for Treatment How to access health informa tion online Indication:Cough Start:08-Feb-2019 Instruction Type:Patient Education How to access health informa tion online - Detail Indication:Cough Start:08-Feb-2019 Instruction Type:Patient Education Patient Instructions Indication:Cough Start:08-Feb-2019 Instruction Type:Provider Instructions for Treatment How to access health informa tion online Indication:Nonsmoker Start:29-Jul-2018 Instruction Type:Patient Education How to access health informa tion online - Detail Indication:Nonsmoker Start:29-Jul-2018 Instruction Type:Patient Education Patient Instructions Indication:Nonsmoker Start:29-Jul-2018 Instruction Type:Provider Instructions for Treatment How to access health informa tion online Indication:BMI 25.0-25.9,adult Start:26-Mar-2017 Instruction Type:Patient Education How to access health informa tion online - Detail Indication:BMI 25.0-25.9,adult Start:26-Mar-2017 Instruction Type:Patient Education Patient Instructions Indication:Chronic obstructive asthma with acute exacerbation (Renamed from Chronic obstructive asthma with exacerbation) Start:26-Mar-2017 Instruction Type:Provider Instructions for Treatment How to access health informa tion online Indication:Nonsmoker Start:09-Jan-2017 Instruction Type:Patient Education How to access health informa tion online - Detail Indication:Nonsmoker Start:09-Jan-2017 Instruction Type:Patient Education Patient Instructions Indication:Nonsmoker Start:09-Jan-2017 Instruction Type:Provider Instructions for Treatment How to access health informa tion online Indication:Abnormal glucose tolerance test Start:02-Jan-2017 Instruction Type:Patient Education How to access health informa tion online - Detail Indication:Abnormal glucose tolerance test Start:02-Jan-2017 Instruction Type:Patient Education Patient Instructions Indication:Abnormal glucose tolerance test Start:02-Jan-2017 Instruction Type:Provider Instructions for Treatment How to access health informa tion online Indication:Cough Start:14-Mar-2016 Instruction Type:Patient Education How to access health informa tion online - Detail Indication:Cough Start:14-Mar-2016 Instruction Type:Patient Education Patient Instructions Indication:Cough Start:14-Mar-2016 Instruction Type:Provider Instructions for Treatment How to access health informa tion online Indication:Cough Start:31-Jan-2015 Instruction Type:Patient Education How to access health informa tion online - Detail Indication:Cough Start:31-Jan-2015 Instruction Type:Patient Education Patient Instructions Indication:Cough Start:31-Jan-2015 Instruction Type:Provider Instructions for Treatment [facility]; [facility] Work Phone: Instructions* Name Dates Details Patient Instructions Indication:BMI 25.0-25.9,adult Start:06-Jan-2022 Instruction Type:Provider Instructions for Treatment How to Access Health Informa tion Online using Patient Portal and [employer] Apps Indication:BMI 25.0-25.9,adult Start:06-Jan-2022 Instruction Type:Patient Education Patient Instructions Indication:BMI 25.0-25.9,adult Start:21-Oct-2021 Instruction Type:Provider Instructions for Treatment How to Access Health Informa tion Online using Patient Portal and [employer] Apps Indication:BMI 25.0-25.9,adult Start:21-Oct-2021 Instruction Type:Patient Education Patient Instructions Indication:BMI 27.0-27.9,adult Start:25-Sep-2021 Instruction Type:Provider Instructions for Treatment How to Access Health Informa tion Online using Patient Portal and [employer] Apps Indication:BMI 27.0-27.9,adult Start:25-Sep-2021 Instruction Type:Patient Education Patient Instructions Indication:BMI 27.0-27.9,adult Start:18-Sep-2021 Instruction Type:Provider Instructions for Treatment How to Access Health Informa tion Online using Patient Portal and [employer] Apps Indication:BMI 27.0-27.9,adult Start:18-Sep-2021 Instruction Type:Patient Education Patient Instructions Indication:Non-smoker Start:13-Sep-2021 Instruction Type:Provider Instructions for Treatment How to Access Health Informa tion Online using Patient Portal and [employer] Apps Indication:Non-smoker Start:13-Sep-2021 Instruction Type:Patient Education Patient Instructions Indication:BMI 27.0-27.9,adult Start:30-Jan-2021 Instruction Type:Provider Instructions for Treatment How to Access Health Informa tion Online using Patient Portal and [employer] Apps Indication:BMI 27.0-27.9,adult Start:30-Jan-2021 Instruction Type:Patient Education Patient Instructions Indication:Non-smoker Start:23-Oct-2020 Instruction Type:Provider Instructions for Treatment How to Access Health Informa tion Online using Patient Portal and [employer] Apps Indication:Non-smoker Start:23-Oct-2020 Instruction Type:Patient Education Patient Instructions Indication:BMI 27.0-27.9,adult Start:19-Oct-2020 Instruction Type:Provider Instructions for Treatment How to Access Health Informa tion Online using Patient Portal and [employer] Apps Indication:BMI 27.0-27.9,adult Start:19-Oct-2020 Instruction Type:Patient Education How to access health informa tion online Indication:BMI 27.0-27.9,adult Start:16-Jan-2020 Instruction Type:Patient Education How to access health informa tion online - Detail Indication:BMI 27.0-27.9,adult Start:16-Jan-2020 Instruction Type:Patient Education Patient Instructions Indication:BMI 27.0-27.9,adult Start:16-Jan-2020 Instruction Type:Provider Instructions for Treatment How to access health informa tion online Indication:Non-smoker Start:24-Oct-2019 Instruction Type:Patient Education How to access health informa tion online - Detail Indication:Non-smoker Start:24-Oct-2019 Instruction Type:Patient Education Patient Instructions Indication:BMI 27.0-27.9,adult Start:24-Oct-2019 Instruction Type:Provider Instructions for Treatment How to access health informa tion online Indication:Non-smoker Start:25-Aug-2019 Instruction Type:Patient Education How to access health informa tion online - Detail Indication:Non-smoker Start:25-Aug-2019 Instruction Type:Patient Education Patient Instructions Indication:Non-smoker Start:25-Aug-2019 Instruction Type:Provider Instructions for Treatment How to access health informa tion online Indication:Non-smoker Start:12-May-2019 Instruction Type:Patient Education How to access health informa tion online - Detail Indication:Non-smoker Start:12-May-2019 Instruction Type:Patient Education Patient Instructions Indication:Non-smoker Start:12-May-2019 Instruction Type:Provider Instructions for Treatment How to access health informa tion online Indication:Non-smoker Start:02-May-2019 Instruction Type:Patient Education How to access health informa tion online - Detail Indication:Non-smoker Start:02-May-2019 Instruction Type:Patient Education Patient Instructions Indication:Non-smoker Start:02-May-2019 Instruction Type:Provider Instructions for Treatment How to access health informa tion online Indication:BMI 26.0-26.9,adult Start:28-Apr-2019 Instruction Type:Patient Education How to access health informa tion online - Detail Indication:BMI 26.0-26.9,adult Start:28-Apr-2019 Instruction Type:Patient Education Patient Instructions Indication:BMI 26.0-26.9,adult Start:28-Apr-2019 Instruction Type:Provider Instructions for Treatment How to access health informa tion online Indication:Cough Start:26-Apr-2019 Instruction Type:Patient Education How to access health informa tion online - Detail Indication:Cough Start:26-Apr-2019 Instruction Type:Patient Education Patient Instructions Indication:Cough Start:26-Apr-2019 Instruction Type:Provider Instructions for Treatment How to access health informa tion online Indication:Nasal congestion Start:12-Apr-2019 Instruction Type:Patient Education How to access health informa tion online - Detail Indication:Nasal congestion Start:12-Apr-2019 Instruction Type:Patient Education Patient Instructions Indication:Nasal congestion Start:12-Apr-2019 Instruction Type:Provider Instructions for Treatment How to access health informa tion online Indication:Cough Start:08-Feb-2019 Instruction Type:Patient Education How to access health informa tion online - Detail Indication:Cough Start:08-Feb-2019 Instruction Type:Patient Education Patient Instructions Indication:Cough Start:08-Feb-2019 Instruction Type:Provider Instructions for Treatment How to access health informa tion online Indication:Nonsmoker Start:29-Jul-2018 Instruction Type:Patient Education How to access health informa tion online - Detail Indication:Nonsmoker Start:29-Jul-2018 Instruction Type:Patient Education Patient Instructions Indication:Nonsmoker Start:29-Jul-2018 Instruction Type:Provider Instructions for Treatment How to access health informa tion online Indication:BMI 25.0-25.9,adult Start:26-Mar-2017 Instruction Type:Patient Education How to access health informa tion online - Detail Indication:BMI 25.0-25.9,adult Start:26-Mar-2017 Instruction Type:Patient Education Patient Instructions Indication:Chronic obstructive asthma with acute exacerbation (Renamed from Chronic obstructive asthma with exacerbation) Start:26-Mar-2017 Instruction Type:Provider Instructions for Treatment How to access health informa tion online Indication:Nonsmoker Start:09-Jan-2017 Instruction Type:Patient Education How to access health informa tion online - Detail Indication:Nonsmoker Start:09-Jan-2017 Instruction Type:Patient Education Patient Instructions Indication:Nonsmoker Start:09-Jan-2017 Instruction Type:Provider Instructions for Treatment How to access health informa tion online Indication:Abnormal glucose tolerance test Start:02-Jan-2017 Instruction Type:Patient Education How to access health informa tion online - Detail Indication:Abnormal glucose tolerance test Start:02-Jan-2017 Instruction Type:Patient Education Patient Instructions Indication:Abnormal glucose tolerance test Start:02-Jan-2017 Instruction Type:Provider Instructions for Treatment How to access health informa tion online Indication:Cough Start:14-Mar-2016 Instruction Type:Patient Education How to access health informa tion online - Detail Indication:Cough Start:14-Mar-2016 Instruction Type:Patient Education Patient Instructions Indication:Cough Start:14-Mar-2016 Instruction Type:Provider Instructions for Treatment How to access health informa tion online Indication:Cough Start:31-Jan-2015 Instruction Type:Patient Education How to access health informa tion online - Detail Indication:Cough Start:31-Jan-2015 Instruction Type:Patient Education Patient Instructions Indication:Cough Start:31-Jan-2015 Instruction Type:Provider Instructions for Treatment [facility]; [facility] Work Phone: Instructions* Name Dates Details Patient Instructions Indication:Non-smoker Start:03-Feb-2022 Instruction Type:Provider Instructions for Treatment How to Access Health Informa tion Online using Patient Portal and [employer] Apps Indication:Non-smoker Start:03-Feb-2022 Instruction Type:Patient Education Patient Instructions Indication:BMI 25.0-25.9,adult Start:06-Jan-2022 Instruction Type:Provider Instructions for Treatment How to Access Health Informa tion Online using Patient Portal and [employer] Apps Indication:BMI 25.0-25.9,adult Start:06-Jan-2022 Instruction Type:Patient Education Patient Instructions Indication:BMI 25.0-25.9,adult Start:21-Oct-2021 Instruction Type:Provider Instructions for Treatment How to Access Health Informa tion Online using Patient Portal and [employer] Apps Indication:BMI 25.0-25.9,adult Start:21-Oct-2021 Instruction Type:Patient Education Patient Instructions Indication:BMI 27.0-27.9,adult Start:25-Sep-2021 Instruction Type:Provider Instructions for Treatment How to Access Health Informa tion Online using Patient Portal and [employer] Apps Indication:BMI 27.0-27.9,adult Start:25-Sep-2021 Instruction Type:Patient Education Patient Instructions Indication:BMI 27.0-27.9,adult Start:18-Sep-2021 Instruction Type:Provider Instructions for Treatment How to Access Health Informa tion Online using Patient Portal and [employer] Apps Indication:BMI 27.0-27.9,adult Start:18-Sep-2021 Instruction Type:Patient Education Patient Instructions Indication:Non-smoker Start:13-Sep-2021 Instruction Type:Provider Instructions for Treatment How to Access Health Informa tion Online using Patient Portal and [employer] Apps Indication:Non-smoker Start:13-Sep-2021 Instruction Type:Patient Education Patient Instructions Indication:BMI 27.0-27.9,adult Start:30-Jan-2021 Instruction Type:Provider Instructions for Treatment How to Access Health Informa tion Online using Patient Portal and [employer] Apps Indication:BMI 27.0-27.9,adult Start:30-Jan-2021 Instruction Type:Patient Education Patient Instructions Indication:Non-smoker Start:23-Oct-2020 Instruction Type:Provider Instructions for Treatment How to Access Health Informa tion Online using Patient Portal and [employer] Apps Indication:Non-smoker Start:23-Oct-2020 Instruction Type:Patient Education Patient Instructions Indication:BMI 27.0-27.9,adult Start:19-Oct-2020 Instruction Type:Provider Instructions for Treatment How to Access Health Informa tion Online using Patient Portal and [employer] Apps Indication:BMI 27.0-27.9,adult Start:19-Oct-2020 Instruction Type:Patient Education How to access health informa tion online Indication:BMI 27.0-27.9,adult Start:16-Jan-2020 Instruction Type:Patient Education How to access health informa tion online - Detail Indication:BMI 27.0-27.9,adult Start:16-Jan-2020 Instruction Type:Patient Education Patient Instructions Indication:BMI 27.0-27.9,adult Start:16-Jan-2020 Instruction Type:Provider Instructions for Treatment How to access health informa tion online Indication:Non-smoker Start:24-Oct-2019 Instruction Type:Patient Education How to access health informa tion online - Detail Indication:Non-smoker Start:24-Oct-2019 Instruction Type:Patient Education Patient Instructions Indication:BMI 27.0-27.9,adult Start:24-Oct-2019 Instruction Type:Provider Instructions for Treatment How to access health informa tion online Indication:Non-smoker Start:25-Aug-2019 Instruction Type:Patient Education How to access health informa tion online - Detail Indication:Non-smoker Start:25-Aug-2019 Instruction Type:Patient Education Patient Instructions Indication:Non-smoker Start:25-Aug-2019 Instruction Type:Provider Instructions for Treatment How to access health informa tion online Indication:Non-smoker Start:12-May-2019 Instruction Type:Patient Education How to access health informa tion online - Detail Indication:Non-smoker Start:12-May-2019 Instruction Type:Patient Education Patient Instructions Indication:Non-smoker Start:12-May-2019 Instruction Type:Provider Instructions for Treatment How to access health informa tion online Indication:Non-smoker Start:02-May-2019 Instruction Type:Patient Education How to access health informa tion online - Detail Indication:Non-smoker Start:02-May-2019 Instruction Type:Patient Education Patient Instructions Indication:Non-smoker Start:02-May-2019 Instruction Type:Provider Instructions for Treatment How to access health informa tion online Indication:BMI 26.0-26.9,adult Start:28-Apr-2019 Instruction Type:Patient Education How to access health informa tion online - Detail Indication:BMI 26.0-26.9,adult Start:28-Apr-2019 Instruction Type:Patient Education Patient Instructions Indication:BMI 26.0-26.9,adult Start:28-Apr-2019 Instruction Type:Provider Instructions for Treatment How to access health informa tion online Indication:Cough Start:26-Apr-2019 Instruction Type:Patient Education How to access health informa tion online - Detail Indication:Cough Start:26-Apr-2019 Instruction Type:Patient Education Patient Instructions Indication:Cough Start:26-Apr-2019 Instruction Type:Provider Instructions for Treatment How to access health informa tion online Indication:Nasal congestion Start:12-Apr-2019 Instruction Type:Patient Education How to access health informa tion online - Detail Indication:Nasal congestion Start:12-Apr-2019 Instruction Type:Patient Education Patient Instructions Indication:Nasal congestion Start:12-Apr-2019 Instruction Type:Provider Instructions for Treatment How to access health informa tion online Indication:Cough Start:08-Feb-2019 Instruction Type:Patient Education How to access health informa tion online - Detail Indication:Cough Start:08-Feb-2019 Instruction Type:Patient Education Patient Instructions Indication:Cough Start:08-Feb-2019 Instruction Type:Provider Instructions for Treatment How to access health informa tion online Indication:Nonsmoker Start:29-Jul-2018 Instruction Type:Patient Education How to access health informa tion online - Detail Indication:Nonsmoker Start:29-Jul-2018 Instruction Type:Patient Education Patient Instructions Indication:Nonsmoker Start:29-Jul-2018 Instruction Type:Provider Instructions for Treatment How to access health informa tion online Indication:BMI 25.0-25.9,adult Start:26-Mar-2017 Instruction Type:Patient Education How to access health informa tion online - Detail Indication:BMI 25.0-25.9,adult Start:26-Mar-2017 Instruction Type:Patient Education Patient Instructions Indication:Chronic obstructive asthma with acute exacerbation (Renamed from Chronic obstructive asthma with exacerbation) Start:26-Mar-2017 Instruction Type:Provider Instructions for Treatment How to access health informa tion online Indication:Nonsmoker Start:09-Jan-2017 Instruction Type:Patient Education How to access health informa tion online - Detail Indication:Nonsmoker Start:09-Jan-2017 Instruction Type:Patient Education Patient Instructions Indication:Nonsmoker Start:09-Jan-2017 Instruction Type:Provider Instructions for Treatment How to access health informa tion online Indication:Abnormal glucose tolerance test Start:02-Jan-2017 Instruction Type:Patient Education How to access health informa tion online - Detail Indication:Abnormal glucose tolerance test Start:02-Jan-2017 Instruction Type:Patient Education Patient Instructions Indication:Abnormal glucose tolerance test Start:02-Jan-2017 Instruction Type:Provider Instructions for Treatment How to access health informa tion online Indication:Cough Start:14-Mar-2016 Instruction Type:Patient Education How to access health informa tion online - Detail Indication:Cough Start:14-Mar-2016 Instruction Type:Patient Education Patient Instructions Indication:Cough Start:14-Mar-2016 Instruction Type:Provider Instructions for Treatment How to access health informa tion online Indication:Cough Start:31-Jan-2015 Instruction Type:Patient Education How to access health informa tion online - Detail Indication:Cough Start:31-Jan-2015 Instruction Type:Patient Education Patient Instructions Indication:Cough Start:31-Jan-2015 Instruction Type:Provider Instructions for Treatment [facility]; [facility] Work Phone: Instructions* Name Dates Details Patient Instructions Indication:Non-smoker Start:03-Feb-2022 Instruction Type:Provider Instructions for Treatment How to Access Health Informa tion Online using Patient Portal and [employer] Apps Indication:Non-smoker Start:03-Feb-2022 Instruction Type:Patient Education Patient Instructions Indication:BMI 25.0-25.9,adult Start:06-Jan-2022 Instruction Type:Provider Instructions for Treatment How to Access Health Informa tion Online using Patient Portal and [employer] Apps Indication:BMI 25.0-25.9,adult Start:06-Jan-2022 Instruction Type:Patient Education Patient Instructions Indication:BMI 25.0-25.9,adult Start:21-Oct-2021 Instruction Type:Provider Instructions for Treatment How to Access Health Informa tion Online using Patient Portal and [employer] Apps Indication:BMI 25.0-25.9,adult Start:21-Oct-2021 Instruction Type:Patient Education Patient Instructions Indication:BMI 27.0-27.9,adult Start:25-Sep-2021 Instruction Type:Provider Instructions for Treatment How to Access Health Informa tion Online using Patient Portal and [employer] Apps Indication:BMI 27.0-27.9,adult Start:25-Sep-2021 Instruction Type:Patient Education Patient Instructions Indication:BMI 27.0-27.9,adult Start:18-Sep-2021 Instruction Type:Provider Instructions for Treatment How to Access Health Informa tion Online using Patient Portal and [employer] Apps Indication:BMI 27.0-27.9,adult Start:18-Sep-2021 Instruction Type:Patient Education Patient Instructions Indication:Non-smoker Start:13-Sep-2021 Instruction Type:Provider Instructions for Treatment How to Access Health Informa tion Online using Patient Portal and [employer] Apps Indication:Non-smoker Start:13-Sep-2021 Instruction Type:Patient Education Patient Instructions Indication:BMI 27.0-27.9,adult Start:30-Jan-2021 Instruction Type:Provider Instructions for Treatment How to Access Health Informa tion Online using Patient Portal and [employer] Apps Indication:BMI 27.0-27.9,adult Start:30-Jan-2021 Instruction Type:Patient Education Patient Instructions Indication:Non-smoker Start:23-Oct-2020 Instruction Type:Provider Instructions for Treatment How to Access Health Informa tion Online using Patient Portal and [employer] Apps Indication:Non-smoker Start:23-Oct-2020 Instruction Type:Patient Education Patient Instructions Indication:BMI 27.0-27.9,adult Start:19-Oct-2020 Instruction Type:Provider Instructions for Treatment How to Access Health Informa tion Online using Patient Portal and [employer] Apps Indication:BMI 27.0-27.9,adult Start:19-Oct-2020 Instruction Type:Patient Education How to access health informa tion online Indication:BMI 27.0-27.9,adult Start:16-Jan-2020 Instruction Type:Patient Education How to access health informa tion online - Detail Indication:BMI 27.0-27.9,adult Start:16-Jan-2020 Instruction Type:Patient Education Patient Instructions Indication:BMI 27.0-27.9,adult Start:16-Jan-2020 Instruction Type:Provider Instructions for Treatment How to access health informa tion online Indication:Non-smoker Start:24-Oct-2019 Instruction Type:Patient Education How to access health informa tion online - Detail Indication:Non-smoker Start:24-Oct-2019 Instruction Type:Patient Education Patient Instructions Indication:BMI 27.0-27.9,adult Start:24-Oct-2019 Instruction Type:Provider Instructions for Treatment How to access health informa tion online Indication:Non-smoker Start:25-Aug-2019 Instruction Type:Patient Education How to access health informa tion online - Detail Indication:Non-smoker Start:25-Aug-2019 Instruction Type:Patient Education Patient Instructions Indication:Non-smoker Start:25-Aug-2019 Instruction Type:Provider Instructions for Treatment How to access health informa tion online Indication:Non-smoker Start:12-May-2019 Instruction Type:Patient Education How to access health informa tion online - Detail Indication:Non-smoker Start:12-May-2019 Instruction Type:Patient Education Patient Instructions Indication:Non-smoker Start:12-May-2019 Instruction Type:Provider Instructions for Treatment How to access health informa tion online Indication:Non-smoker Start:02-May-2019 Instruction Type:Patient Education How to access health informa tion online - Detail Indication:Non-smoker Start:02-May-2019 Instruction Type:Patient Education Patient Instructions Indication:Non-smoker Start:02-May-2019 Instruction Type:Provider Instructions for Treatment How to access health informa tion online Indication:BMI 26.0-26.9,adult Start:28-Apr-2019 Instruction Type:Patient Education How to access health informa tion online - Detail Indication:BMI 26.0-26.9,adult Start:28-Apr-2019 Instruction Type:Patient Education Patient Instructions Indication:BMI 26.0-26.9,adult Start:28-Apr-2019 Instruction Type:Provider Instructions for Treatment How to access health informa tion online Indication:Cough Start:26-Apr-2019 Instruction Type:Patient Education How to access health informa tion online - Detail Indication:Cough Start:26-Apr-2019 Instruction Type:Patient Education Patient Instructions Indication:Cough Start:26-Apr-2019 Instruction Type:Provider Instructions for Treatment How to access health informa tion online Indication:Nasal congestion Start:12-Apr-2019 Instruction Type:Patient Education How to access health informa tion online - Detail Indication:Nasal congestion Start:12-Apr-2019 Instruction Type:Patient Education Patient Instructions Indication:Nasal congestion Start:12-Apr-2019 Instruction Type:Provider Instructions for Treatment How to access health informa tion online Indication:Cough Start:08-Feb-2019 Instruction Type:Patient Education How to access health informa tion online - Detail Indication:Cough Start:08-Feb-2019 Instruction Type:Patient Education Patient Instructions Indication:Cough Start:08-Feb-2019 Instruction Type:Provider Instructions for Treatment How to access health informa tion online Indication:Nonsmoker Start:29-Jul-2018 Instruction Type:Patient Education How to access health informa tion online - Detail Indication:Nonsmoker Start:29-Jul-2018 Instruction Type:Patient Education Patient Instructions Indication:Nonsmoker Start:29-Jul-2018 Instruction Type:Provider Instructions for Treatment How to access health informa tion online Indication:BMI 25.0-25.9,adult Start:26-Mar-2017 Instruction Type:Patient Education How to access health informa tion online - Detail Indication:BMI 25.0-25.9,adult Start:26-Mar-2017 Instruction Type:Patient Education Patient Instructions Indication:Chronic obstructive asthma with acute exacerbation (Renamed from Chronic obstructive asthma with exacerbation) Start:26-Mar-2017 Instruction Type:Provider Instructions for Treatment How to access health informa tion online Indication:Nonsmoker Start:09-Jan-2017 Instruction Type:Patient Education How to access health informa tion online - Detail Indication:Nonsmoker Start:09-Jan-2017 Instruction Type:Patient Education Patient Instructions Indication:Nonsmoker Start:09-Jan-2017 Instruction Type:Provider Instructions for Treatment How to access health informa tion online Indication:Abnormal glucose tolerance test Start:02-Jan-2017 Instruction Type:Patient Education How to access health informa tion online - Detail Indication:Abnormal glucose tolerance test Start:02-Jan-2017 Instruction Type:Patient Education Patient Instructions Indication:Abnormal glucose tolerance test Start:02-Jan-2017 Instruction Type:Provider Instructions for Treatment How to access health informa tion online Indication:Cough Start:14-Mar-2016 Instruction Type:Patient Education How to access health informa tion online - Detail Indication:Cough Start:14-Mar-2016 Instruction Type:Patient Education Patient Instructions Indication:Cough Start:14-Mar-2016 Instruction Type:Provider Instructions for Treatment How to access health informa tion online Indication:Cough Start:31-Jan-2015 Instruction Type:Patient Education How to access health informa tion online - Detail Indication:Cough Start:31-Jan-2015 Instruction Type:Patient Education Patient Instructions Indication:Cough Start:31-Jan-2015 Instruction Type:Provider Instructions for Treatment [facility]; [facility] Work Phone: Instructions* Name Dates Details Patient Instructions Indication:Non-smoker Start:03-Feb-2022 Instruction Type:Provider Instructions for Treatment How to Access Health Informa tion Online using Patient Portal and [employer] Apps Indication:Non-smoker Start:03-Feb-2022 Instruction Type:Patient Education Patient Instructions Indication:BMI 25.0-25.9,adult Start:06-Jan-2022 Instruction Type:Provider Instructions for Treatment How to Access Health Informa tion Online using Patient Portal and [employer] Apps Indication:BMI 25.0-25.9,adult Start:06-Jan-2022 Instruction Type:Patient Education Patient Instructions Indication:BMI 25.0-25.9,adult Start:21-Oct-2021 Instruction Type:Provider Instructions for Treatment How to Access Health Informa tion Online using Patient Portal and [employer] Apps Indication:BMI 25.0-25.9,adult Start:21-Oct-2021 Instruction Type:Patient Education Patient Instructions Indication:BMI 27.0-27.9,adult Start:25-Sep-2021 Instruction Type:Provider Instructions for Treatment How to Access Health Informa tion Online using Patient Portal and [employer] Apps Indication:BMI 27.0-27.9,adult Start:25-Sep-2021 Instruction Type:Patient Education Patient Instructions Indication:BMI 27.0-27.9,adult Start:18-Sep-2021 Instruction Type:Provider Instructions for Treatment How to Access Health Informa tion Online using Patient Portal and [employer] Apps Indication:BMI 27.0-27.9,adult Start:18-Sep-2021 Instruction Type:Patient Education Patient Instructions Indication:Non-smoker Start:13-Sep-2021 Instruction Type:Provider Instructions for Treatment How to Access Health Informa tion Online using Patient Portal and [employer] Apps Indication:Non-smoker Start:13-Sep-2021 Instruction Type:Patient Education Patient Instructions Indication:BMI 27.0-27.9,adult Start:30-Jan-2021 Instruction Type:Provider Instructions for Treatment How to Access Health Informa tion Online using Patient Portal and [employer] Apps Indication:BMI 27.0-27.9,adult Start:30-Jan-2021 Instruction Type:Patient Education Patient Instructions Indication:Non-smoker Start:23-Oct-2020 Instruction Type:Provider Instructions for Treatment How to Access Health Informa tion Online using Patient Portal and [employer] Apps Indication:Non-smoker Start:23-Oct-2020 Instruction Type:Patient Education Patient Instructions Indication:BMI 27.0-27.9,adult Start:19-Oct-2020 Instruction Type:Provider Instructions for Treatment How to Access Health Informa tion Online using Patient Portal and [employer] Apps Indication:BMI 27.0-27.9,adult Start:19-Oct-2020 Instruction Type:Patient Education How to access health informa tion online Indication:BMI 27.0-27.9,adult Start:16-Jan-2020 Instruction Type:Patient Education How to access health informa tion online - Detail Indication:BMI 27.0-27.9,adult Start:16-Jan-2020 Instruction Type:Patient Education Patient Instructions Indication:BMI 27.0-27.9,adult Start:16-Jan-2020 Instruction Type:Provider Instructions for Treatment How to access health informa tion online Indication:Non-smoker Start:24-Oct-2019 Instruction Type:Patient Education How to access health informa tion online - Detail Indication:Non-smoker Start:24-Oct-2019 Instruction Type:Patient Education Patient Instructions Indication:BMI 27.0-27.9,adult Start:24-Oct-2019 Instruction Type:Provider Instructions for Treatment How to access health informa tion online Indication:Non-smoker Start:25-Aug-2019 Instruction Type:Patient Education How to access health informa tion online - Detail Indication:Non-smoker Start:25-Aug-2019 Instruction Type:Patient Education Patient Instructions Indication:Non-smoker Start:25-Aug-2019 Instruction Type:Provider Instructions for Treatment How to access health informa tion online Indication:Non-smoker Start:12-May-2019 Instruction Type:Patient Education How to access health informa tion online - Detail Indication:Non-smoker Start:12-May-2019 Instruction Type:Patient Education Patient Instructions Indication:Non-smoker Start:12-May-2019 Instruction Type:Provider Instructions for Treatment How to access health informa tion online Indication:Non-smoker Start:02-May-2019 Instruction Type:Patient Education How to access health informa tion online - Detail Indication:Non-smoker Start:02-May-2019 Instruction Type:Patient Education Patient Instructions Indication:Non-smoker Start:02-May-2019 Instruction Type:Provider Instructions for Treatment How to access health informa tion online Indication:BMI 26.0-26.9,adult Start:28-Apr-2019 Instruction Type:Patient Education How to access health informa tion online - Detail Indication:BMI 26.0-26.9,adult Start:28-Apr-2019 Instruction Type:Patient Education Patient Instructions Indication:BMI 26.0-26.9,adult Start:28-Apr-2019 Instruction Type:Provider Instructions for Treatment How to access health informa tion online Indication:Cough Start:26-Apr-2019 Instruction Type:Patient Education How to access health informa tion online - Detail Indication:Cough Start:26-Apr-2019 Instruction Type:Patient Education Patient Instructions Indication:Cough Start:26-Apr-2019 Instruction Type:Provider Instructions for Treatment How to access health informa tion online Indication:Nasal congestion Start:12-Apr-2019 Instruction Type:Patient Education How to access health informa tion online - Detail Indication:Nasal congestion Start:12-Apr-2019 Instruction Type:Patient Education Patient Instructions Indication:Nasal congestion Start:12-Apr-2019 Instruction Type:Provider Instructions for Treatment How to access health informa tion online Indication:Cough Start:08-Feb-2019 Instruction Type:Patient Education How to access health informa tion online - Detail Indication:Cough Start:08-Feb-2019 Instruction Type:Patient Education Patient Instructions Indication:Cough Start:08-Feb-2019 Instruction Type:Provider Instructions for Treatment How to access health informa tion online Indication:Nonsmoker Start:29-Jul-2018 Instruction Type:Patient Education How to access health informa tion online - Detail Indication:Nonsmoker Start:29-Jul-2018 Instruction Type:Patient Education Patient Instructions Indication:Nonsmoker Start:29-Jul-2018 Instruction Type:Provider Instructions for Treatment How to access health informa tion online Indication:BMI 25.0-25.9,adult Start:26-Mar-2017 Instruction Type:Patient Education How to access health informa tion online - Detail Indication:BMI 25.0-25.9,adult Start:26-Mar-2017 Instruction Type:Patient Education Patient Instructions Indication:Chronic obstructive asthma with acute exacerbation (Renamed from Chronic obstructive asthma with exacerbation) Start:26-Mar-2017 Instruction Type:Provider Instructions for Treatment How to access health informa tion online Indication:Nonsmoker Start:09-Jan-2017 Instruction Type:Patient Education How to access health informa tion online - Detail Indication:Nonsmoker Start:09-Jan-2017 Instruction Type:Patient Education Patient Instructions Indication:Nonsmoker Start:09-Jan-2017 Instruction Type:Provider Instructions for Treatment How to access health informa tion online Indication:Abnormal glucose tolerance test Start:02-Jan-2017 Instruction Type:Patient Education How to access health informa tion online - Detail Indication:Abnormal glucose tolerance test Start:02-Jan-2017 Instruction Type:Patient Education Patient Instructions Indication:Abnormal glucose tolerance test Start:02-Jan-2017 Instruction Type:Provider Instructions for Treatment How to access health informa tion online Indication:Cough Start:14-Mar-2016 Instruction Type:Patient Education How to access health informa tion online - Detail Indication:Cough Start:14-Mar-2016 Instruction Type:Patient Education Patient Instructions Indication:Cough Start:14-Mar-2016 Instruction Type:Provider Instructions for Treatment How to access health informa tion online Indication:Cough Start:31-Jan-2015 Instruction Type:Patient Education How to access health informa tion online - Detail Indication:Cough Start:31-Jan-2015 Instruction Type:Patient Education Patient Instructions Indication:Cough Start:31-Jan-2015 Instruction Type:Provider Instructions for Treatment [facility]; [facility] Work Phone: Instructions* Name Dates Details Patient Instructions Indication:Non-smoker Start:26-Mar-2022 Instruction Type:Provider Instructions for Treatment How to Access Health Informa tion Online using Patient Portal and [employer] Apps Indication:Non-smoker Start:26-Mar-2022 Instruction Type:Patient Education Patient Instructions Indication:BMI 25.0-25.9,adult Start:25-Mar-2022 Instruction Type:Provider Instructions for Treatment How to Access Health Informa tion Online using Patient Portal and [employer] Apps Indication:BMI 25.0-25.9,adult Start:25-Mar-2022 Instruction Type:Patient Education Patient Instructions Indication:Non-smoker Start:03-Feb-2022 Instruction Type:Provider Instructions for Treatment How to Access Health Informa tion Online using Patient Portal and [employer] Apps Indication:Non-smoker Start:03-Feb-2022 Instruction Type:Patient Education Patient Instructions Indication:BMI 25.0-25.9,adult Start:06-Jan-2022 Instruction Type:Provider Instructions for Treatment How to Access Health Informa tion Online using Patient Portal and [employer] Apps Indication:BMI 25.0-25.9,adult Start:06-Jan-2022 Instruction Type:Patient Education Patient Instructions Indication:BMI 25.0-25.9,adult Start:21-Oct-2021 Instruction Type:Provider Instructions for Treatment How to Access Health Informa tion Online using Patient Portal and [employer] Apps Indication:BMI 25.0-25.9,adult Start:21-Oct-2021 Instruction Type:Patient Education Patient Instructions Indication:BMI 27.0-27.9,adult Start:25-Sep-2021 Instruction Type:Provider Instructions for Treatment How to Access Health Informa tion Online using Patient Portal and [employer] Apps Indication:BMI 27.0-27.9,adult Start:25-Sep-2021 Instruction Type:Patient Education Patient Instructions Indication:BMI 27.0-27.9,adult Start:18-Sep-2021 Instruction Type:Provider Instructions for Treatment How to Access Health Informa tion Online using Patient Portal and [employer] Apps Indication:BMI 27.0-27.9,adult Start:18-Sep-2021 Instruction Type:Patient Education Patient Instructions Indication:Non-smoker Start:13-Sep-2021 Instruction Type:Provider Instructions for Treatment How to Access Health Informa tion Online using Patient Portal and [employer] Apps Indication:Non-smoker Start:13-Sep-2021 Instruction Type:Patient Education Patient Instructions Indication:BMI 27.0-27.9,adult Start:30-Jan-2021 Instruction Type:Provider Instructions for Treatment How to Access Health Informa tion Online using Patient Portal and [employer] Apps Indication:BMI 27.0-27.9,adult Start:30-Jan-2021 Instruction Type:Patient Education Patient Instructions Indication:Non-smoker Start:23-Oct-2020 Instruction Type:Provider Instructions for Treatment How to Access Health Informa tion Online using Patient Portal and [employer] Apps Indication:Non-smoker Start:23-Oct-2020 Instruction Type:Patient Education Patient Instructions Indication:BMI 27.0-27.9,adult Start:19-Oct-2020 Instruction Type:Provider Instructions for Treatment How to Access Health Informa tion Online using Patient Portal and [employer] Apps Indication:BMI 27.0-27.9,adult Start:19-Oct-2020 Instruction Type:Patient Education How to access health informa tion online Indication:BMI 27.0-27.9,adult Start:16-Jan-2020 Instruction Type:Patient Education How to access health informa tion online - Detail Indication:BMI 27.0-27.9,adult Start:16-Jan-2020 Instruction Type:Patient Education Patient Instructions Indication:BMI 27.0-27.9,adult Start:16-Jan-2020 Instruction Type:Provider Instructions for Treatment How to access health informa tion online Indication:Non-smoker Start:24-Oct-2019 Instruction Type:Patient Education How to access health informa tion online - Detail Indication:Non-smoker Start:24-Oct-2019 Instruction Type:Patient Education Patient Instructions Indication:BMI 27.0-27.9,adult Start:24-Oct-2019 Instruction Type:Provider Instructions for Treatment How to access health informa tion online Indication:Non-smoker Start:25-Aug-2019 Instruction Type:Patient Education How to access health informa tion online - Detail Indication:Non-smoker Start:25-Aug-2019 Instruction Type:Patient Education Patient Instructions Indication:Non-smoker Start:25-Aug-2019 Instruction Type:Provider Instructions for Treatment How to access health informa tion online Indication:Non-smoker Start:12-May-2019 Instruction Type:Patient Education How to access health informa tion online - Detail Indication:Non-smoker Start:12-May-2019 Instruction Type:Patient Education Patient Instructions Indication:Non-smoker Start:12-May-2019 Instruction Type:Provider Instructions for Treatment How to access health informa tion online Indication:Non-smoker Start:02-May-2019 Instruction Type:Patient Education How to access health informa tion online - Detail Indication:Non-smoker Start:02-May-2019 Instruction Type:Patient Education Patient Instructions Indication:Non-smoker Start:02-May-2019 Instruction Type:Provider Instructions for Treatment How to access health informa tion online Indication:BMI 26.0-26.9,adult Start:28-Apr-2019 Instruction Type:Patient Education How to access health informa tion online - Detail Indication:BMI 26.0-26.9,adult Start:28-Apr-2019 Instruction Type:Patient Education Patient Instructions Indication:BMI 26.0-26.9,adult Start:28-Apr-2019 Instruction Type:Provider Instructions for Treatment How to access health informa tion online Indication:Cough Start:26-Apr-2019 Instruction Type:Patient Education How to access health informa tion online - Detail Indication:Cough Start:26-Apr-2019 Instruction Type:Patient Education Patient Instructions Indication:Cough Start:26-Apr-2019 Instruction Type:Provider Instructions for Treatment How to access health informa tion online Indication:Nasal congestion Start:12-Apr-2019 Instruction Type:Patient Education How to access health informa tion online - Detail Indication:Nasal congestion Start:12-Apr-2019 Instruction Type:Patient Education Patient Instructions Indication:Nasal congestion Start:12-Apr-2019 Instruction Type:Provider Instructions for Treatment How to access health informa tion online Indication:Cough Start:08-Feb-2019 Instruction Type:Patient Education How to access health informa tion online - Detail Indication:Cough Start:08-Feb-2019 Instruction Type:Patient Education Patient Instructions Indication:Cough Start:08-Feb-2019 Instruction Type:Provider Instructions for Treatment How to access health informa tion online Indication:Nonsmoker Start:29-Jul-2018 Instruction Type:Patient Education How to access health informa tion online - Detail Indication:Nonsmoker Start:29-Jul-2018 Instruction Type:Patient Education Patient Instructions Indication:Nonsmoker Start:29-Jul-2018 Instruction Type:Provider Instructions for Treatment How to access health informa tion online Indication:BMI 25.0-25.9,adult Start:26-Mar-2017 Instruction Type:Patient Education How to access health informa tion online - Detail Indication:BMI 25.0-25.9,adult Start:26-Mar-2017 Instruction Type:Patient Education Patient Instructions Indication:Chronic obstructive asthma with acute exacerbation (Renamed from Chronic obstructive asthma with exacerbation) Start:26-Mar-2017 Instruction Type:Provider Instructions for Treatment How to access health informa tion online Indication:Nonsmoker Start:09-Jan-2017 Instruction Type:Patient Education How to access health informa tion online - Detail Indication:Nonsmoker Start:09-Jan-2017 Instruction Type:Patient Education Patient Instructions Indication:Nonsmoker Start:09-Jan-2017 Instruction Type:Provider Instructions for Treatment How to access health informa tion online Indication:Abnormal glucose tolerance test Start:02-Jan-2017 Instruction Type:Patient Education How to access health informa tion online - Detail Indication:Abnormal glucose tolerance test Start:02-Jan-2017 Instruction Type:Patient Education Patient Instructions Indication:Abnormal glucose tolerance test Start:02-Jan-2017 Instruction Type:Provider Instructions for Treatment How to access health informa tion online Indication:Cough Start:14-Mar-2016 Instruction Type:Patient Education How to access health informa tion online - Detail Indication:Cough Start:14-Mar-2016 Instruction Type:Patient Education Patient Instructions Indication:Cough Start:14-Mar-2016 Instruction Type:Provider Instructions for Treatment How to access health informa tion online Indication:Cough Start:31-Jan-2015 Instruction Type:Patient Education How to access health informa tion online - Detail Indication:Cough Start:31-Jan-2015 Instruction Type:Patient Education Patient Instructions Indication:Cough Start:31-Jan-2015 Instruction Type:Provider Instructions for Treatment [facility]; [facility] Work Phone: Instructions* Name Dates Details Patient Instructions Indication:Non-smoker Start:26-Mar-2022 Instruction Type:Provider Instructions for Treatment How to Access Health Informa tion Online using Patient Portal and [employer] Apps Indication:Non-smoker Start:26-Mar-2022 Instruction Type:Patient Education Patient Instructions Indication:BMI 25.0-25.9,adult Start:25-Mar-2022 Instruction Type:Provider Instructions for Treatment How to Access Health Informa tion Online using Patient Portal and [employer] Apps Indication:BMI 25.0-25.9,adult Start:25-Mar-2022 Instruction Type:Patient Education Patient Instructions Indication:Non-smoker Start:03-Feb-2022 Instruction Type:Provider Instructions for Treatment How to Access Health Informa tion Online using Patient Portal and [employer] Apps Indication:Non-smoker Start:03-Feb-2022 Instruction Type:Patient Education Patient Instructions Indication:BMI 25.0-25.9,adult Start:06-Jan-2022 Instruction Type:Provider Instructions for Treatment How to Access Health Informa tion Online using Patient Portal and [employer] Apps Indication:BMI 25.0-25.9,adult Start:06-Jan-2022 Instruction Type:Patient Education Patient Instructions Indication:BMI 25.0-25.9,adult Start:21-Oct-2021 Instruction Type:Provider Instructions for Treatment How to Access Health Informa tion Online using Patient Portal and [employer] Apps Indication:BMI 25.0-25.9,adult Start:21-Oct-2021 Instruction Type:Patient Education Patient Instructions Indication:BMI 27.0-27.9,adult Start:25-Sep-2021 Instruction Type:Provider Instructions for Treatment How to Access Health Informa tion Online using Patient Portal and [employer] Apps Indication:BMI 27.0-27.9,adult Start:25-Sep-2021 Instruction Type:Patient Education Patient Instructions Indication:BMI 27.0-27.9,adult Start:18-Sep-2021 Instruction Type:Provider Instructions for Treatment How to Access Health Informa tion Online using Patient Portal and [employer] Apps Indication:BMI 27.0-27.9,adult Start:18-Sep-2021 Instruction Type:Patient Education Patient Instructions Indication:Non-smoker Start:13-Sep-2021 Instruction Type:Provider Instructions for Treatment How to Access Health Informa tion Online using Patient Portal and [employer] Apps Indication:Non-smoker Start:13-Sep-2021 Instruction Type:Patient Education Patient Instructions Indication:BMI 27.0-27.9,adult Start:30-Jan-2021 Instruction Type:Provider Instructions for Treatment How to Access Health Informa tion Online using Patient Portal and [employer] Apps Indication:BMI 27.0-27.9,adult Start:30-Jan-2021 Instruction Type:Patient Education Patient Instructions Indication:Non-smoker Start:23-Oct-2020 Instruction Type:Provider Instructions for Treatment How to Access Health Informa tion Online using Patient Portal and [employer] Apps Indication:Non-smoker Start:23-Oct-2020 Instruction Type:Patient Education Patient Instructions Indication:BMI 27.0-27.9,adult Start:19-Oct-2020 Instruction Type:Provider Instructions for Treatment How to Access Health Informa tion Online using Patient Portal and [employer] Apps Indication:BMI 27.0-27.9,adult Start:19-Oct-2020 Instruction Type:Patient Education How to access health informa tion online Indication:BMI 27.0-27.9,adult Start:16-Jan-2020 Instruction Type:Patient Education How to access health informa tion online - Detail Indication:BMI 27.0-27.9,adult Start:16-Jan-2020 Instruction Type:Patient Education Patient Instructions Indication:BMI 27.0-27.9,adult Start:16-Jan-2020 Instruction Type:Provider Instructions for Treatment How to access health informa tion online Indication:Non-smoker Start:24-Oct-2019 Instruction Type:Patient Education How to access health informa tion online - Detail Indication:Non-smoker Start:24-Oct-2019 Instruction Type:Patient Education Patient Instructions Indication:BMI 27.0-27.9,adult Start:24-Oct-2019 Instruction Type:Provider Instructions for Treatment How to access health informa tion online Indication:Non-smoker Start:25-Aug-2019 Instruction Type:Patient Education How to access health informa tion online - Detail Indication:Non-smoker Start:25-Aug-2019 Instruction Type:Patient Education Patient Instructions Indication:Non-smoker Start:25-Aug-2019 Instruction Type:Provider Instructions for Treatment How to access health informa tion online Indication:Non-smoker Start:12-May-2019 Instruction Type:Patient Education How to access health informa tion online - Detail Indication:Non-smoker Start:12-May-2019 Instruction Type:Patient Education Patient Instructions Indication:Non-smoker Start:12-May-2019 Instruction Type:Provider Instructions for Treatment How to access health informa tion online Indication:Non-smoker Start:02-May-2019 Instruction Type:Patient Education How to access health informa tion online - Detail Indication:Non-smoker Start:02-May-2019 Instruction Type:Patient Education Patient Instructions Indication:Non-smoker Start:02-May-2019 Instruction Type:Provider Instructions for Treatment How to access health informa tion online Indication:BMI 26.0-26.9,adult Start:28-Apr-2019 Instruction Type:Patient Education How to access health informa tion online - Detail Indication:BMI 26.0-26.9,adult Start:28-Apr-2019 Instruction Type:Patient Education Patient Instructions Indication:BMI 26.0-26.9,adult Start:28-Apr-2019 Instruction Type:Provider Instructions for Treatment How to access health informa tion online Indication:Cough Start:26-Apr-2019 Instruction Type:Patient Education How to access health informa tion online - Detail Indication:Cough Start:26-Apr-2019 Instruction Type:Patient Education Patient Instructions Indication:Cough Start:26-Apr-2019 Instruction Type:Provider Instructions for Treatment How to access health informa tion online Indication:Nasal congestion Start:12-Apr-2019 Instruction Type:Patient Education How to access health informa tion online - Detail Indication:Nasal congestion Start:12-Apr-2019 Instruction Type:Patient Education Patient Instructions Indication:Nasal congestion Start:12-Apr-2019 Instruction Type:Provider Instructions for Treatment How to access health informa tion online Indication:Cough Start:08-Feb-2019 Instruction Type:Patient Education How to access health informa tion online - Detail Indication:Cough Start:08-Feb-2019 Instruction Type:Patient Education Patient Instructions Indication:Cough Start:08-Feb-2019 Instruction Type:Provider Instructions for Treatment How to access health informa tion online Indication:Nonsmoker Start:29-Jul-2018 Instruction Type:Patient Education How to access health informa tion online - Detail Indication:Nonsmoker Start:29-Jul-2018 Instruction Type:Patient Education Patient Instructions Indication:Nonsmoker Start:29-Jul-2018 Instruction Type:Provider Instructions for Treatment How to access health informa tion online Indication:BMI 25.0-25.9,adult Start:26-Mar-2017 Instruction Type:Patient Education How to access health informa tion online - Detail Indication:BMI 25.0-25.9,adult Start:26-Mar-2017 Instruction Type:Patient Education Patient Instructions Indication:Chronic obstructive asthma with acute exacerbation (Renamed from Chronic obstructive asthma with exacerbation) Start:26-Mar-2017 Instruction Type:Provider Instructions for Treatment How to access health informa tion online Indication:Nonsmoker Start:09-Jan-2017 Instruction Type:Patient Education How to access health informa tion online - Detail Indication:Nonsmoker Start:09-Jan-2017 Instruction Type:Patient Education Patient Instructions Indication:Nonsmoker Start:09-Jan-2017 Instruction Type:Provider Instructions for Treatment How to access health informa tion online Indication:Abnormal glucose tolerance test Start:02-Jan-2017 Instruction Type:Patient Education How to access health informa tion online - Detail Indication:Abnormal glucose tolerance test Start:02-Jan-2017 Instruction Type:Patient Education Patient Instructions Indication:Abnormal glucose tolerance test Start:02-Jan-2017 Instruction Type:Provider Instructions for Treatment How to access health informa tion online Indication:Cough Start:14-Mar-2016 Instruction Type:Patient Education How to access health informa tion online - Detail Indication:Cough Start:14-Mar-2016 Instruction Type:Patient Education Patient Instructions Indication:Cough Start:14-Mar-2016 Instruction Type:Provider Instructions for Treatment How to access health informa tion online Indication:Cough Start:31-Jan-2015 Instruction Type:Patient Education How to access health informa tion online - Detail Indication:Cough Start:31-Jan-2015 Instruction Type:Patient Education Patient Instructions Indication:Cough Start:31-Jan-2015 Instruction Type:Provider Instructions for Treatment [facility]; [facility] Work Phone: Instructions* Name Dates Details Patient Instructions Indication:Cough Start:05-May-2022 Instruction Type:Provider Instructions for Treatment How to Access Health Informa tion Online using Patient Portal and [employer] Apps Indication:Cough Start:05-May-2022 Instruction Type:Patient Education Patient Instructions Indication:Non-smoker Start:26-Mar-2022 Instruction Type:Provider Instructions for Treatment How to Access Health Informa tion Online using Patient Portal and [employer] Apps Indication:Non-smoker Start:26-Mar-2022 Instruction Type:Patient Education Patient Instructions Indication:BMI 25.0-25.9,adult Start:25-Mar-2022 Instruction Type:Provider Instructions for Treatment How to Access Health Informa tion Online using Patient Portal and [employer] Apps Indication:BMI 25.0-25.9,adult Start:25-Mar-2022 Instruction Type:Patient Education Patient Instructions Indication:Non-smoker Start:03-Feb-2022 Instruction Type:Provider Instructions for Treatment How to Access Health Informa tion Online using Patient Portal and [employer] Apps Indication:Non-smoker Start:03-Feb-2022 Instruction Type:Patient Education Patient Instructions Indication:BMI 25.0-25.9,adult Start:06-Jan-2022 Instruction Type:Provider Instructions for Treatment How to Access Health Informa tion Online using Patient Portal and [employer] Apps Indication:BMI 25.0-25.9,adult Start:06-Jan-2022 Instruction Type:Patient Education Patient Instructions Indication:BMI 25.0-25.9,adult Start:21-Oct-2021 Instruction Type:Provider Instructions for Treatment How to Access Health Informa tion Online using Patient Portal and [employer] Apps Indication:BMI 25.0-25.9,adult Start:21-Oct-2021 Instruction Type:Patient Education Patient Instructions Indication:BMI 27.0-27.9,adult Start:25-Sep-2021 Instruction Type:Provider Instructions for Treatment How to Access Health Informa tion Online using Patient Portal and [employer] Apps Indication:BMI 27.0-27.9,adult Start:25-Sep-2021 Instruction Type:Patient Education Patient Instructions Indication:BMI 27.0-27.9,adult Start:18-Sep-2021 Instruction Type:Provider Instructions for Treatment How to Access Health Informa tion Online using Patient Portal and [employer] Apps Indication:BMI 27.0-27.9,adult Start:18-Sep-2021 Instruction Type:Patient Education Patient Instructions Indication:Non-smoker Start:13-Sep-2021 Instruction Type:Provider Instructions for Treatment How to Access Health Informa tion Online using Patient Portal and [employer] Apps Indication:Non-smoker Start:13-Sep-2021 Instruction Type:Patient Education Patient Instructions Indication:BMI 27.0-27.9,adult Start:30-Jan-2021 Instruction Type:Provider Instructions for Treatment How to Access Health Informa tion Online using Patient Portal and [employer] Apps Indication:BMI 27.0-27.9,adult Start:30-Jan-2021 Instruction Type:Patient Education Patient Instructions Indication:Non-smoker Start:23-Oct-2020 Instruction Type:Provider Instructions for Treatment How to Access Health Informa tion Online using Patient Portal and [employer] Apps Indication:Non-smoker Start:23-Oct-2020 Instruction Type:Patient Education Patient Instructions Indication:BMI 27.0-27.9,adult Start:19-Oct-2020 Instruction Type:Provider Instructions for Treatment How to Access Health Informa tion Online using Patient Portal and [employer] Apps Indication:BMI 27.0-27.9,adult Start:19-Oct-2020 Instruction Type:Patient Education How to access health informa tion online Indication:BMI 27.0-27.9,adult Start:16-Jan-2020 Instruction Type:Patient Education How to access health informa tion online - Detail Indication:BMI 27.0-27.9,adult Start:16-Jan-2020 Instruction Type:Patient Education Patient Instructions Indication:BMI 27.0-27.9,adult Start:16-Jan-2020 Instruction Type:Provider Instructions for Treatment How to access health informa tion online Indication:Non-smoker Start:24-Oct-2019 Instruction Type:Patient Education How to access health informa tion online - Detail Indication:Non-smoker Start:24-Oct-2019 Instruction Type:Patient Education Patient Instructions Indication:BMI 27.0-27.9,adult Start:24-Oct-2019 Instruction Type:Provider Instructions for Treatment How to access health informa tion online Indication:Non-smoker Start:25-Aug-2019 Instruction Type:Patient Education How to access health informa tion online - Detail Indication:Non-smoker Start:25-Aug-2019 Instruction Type:Patient Education Patient Instructions Indication:Non-smoker Start:25-Aug-2019 Instruction Type:Provider Instructions for Treatment How to access health informa tion online Indication:Non-smoker Start:12-May-2019 Instruction Type:Patient Education How to access health informa tion online - Detail Indication:Non-smoker Start:12-May-2019 Instruction Type:Patient Education Patient Instructions Indication:Non-smoker Start:12-May-2019 Instruction Type:Provider Instructions for Treatment How to access health informa tion online Indication:Non-smoker Start:02-May-2019 Instruction Type:Patient Education How to access health informa tion online - Detail Indication:Non-smoker Start:02-May-2019 Instruction Type:Patient Education Patient Instructions Indication:Non-smoker Start:02-May-2019 Instruction Type:Provider Instructions for Treatment How to access health informa tion online Indication:BMI 26.0-26.9,adult Start:28-Apr-2019 Instruction Type:Patient Education How to access health informa tion online - Detail Indication:BMI 26.0-26.9,adult Start:28-Apr-2019 Instruction Type:Patient Education Patient Instructions Indication:BMI 26.0-26.9,adult Start:28-Apr-2019 Instruction Type:Provider Instructions for Treatment How to access health informa tion online Indication:Cough Start:26-Apr-2019 Instruction Type:Patient Education How to access health informa tion online - Detail Indication:Cough Start:26-Apr-2019 Instruction Type:Patient Education Patient Instructions Indication:Cough Start:26-Apr-2019 Instruction Type:Provider Instructions for Treatment How to access health informa tion online Indication:Nasal congestion Start:12-Apr-2019 Instruction Type:Patient Education How to access health informa tion online - Detail Indication:Nasal congestion Start:12-Apr-2019 Instruction Type:Patient Education Patient Instructions Indication:Nasal congestion Start:12-Apr-2019 Instruction Type:Provider Instructions for Treatment How to access health informa tion online Indication:Cough Start:08-Feb-2019 Instruction Type:Patient Education How to access health informa tion online - Detail Indication:Cough Start:08-Feb-2019 Instruction Type:Patient Education Patient Instructions Indication:Cough Start:08-Feb-2019 Instruction Type:Provider Instructions for Treatment How to access health informa tion online Indication:Nonsmoker Start:29-Jul-2018 Instruction Type:Patient Education How to access health informa tion online - Detail Indication:Nonsmoker Start:29-Jul-2018 Instruction Type:Patient Education Patient Instructions Indication:Nonsmoker Start:29-Jul-2018 Instruction Type:Provider Instructions for Treatment How to access health informa tion online Indication:BMI 25.0-25.9,adult Start:26-Mar-2017 Instruction Type:Patient Education How to access health informa tion online - Detail Indication:BMI 25.0-25.9,adult Start:26-Mar-2017 Instruction Type:Patient Education Patient Instructions Indication:Chronic obstructive asthma with acute exacerbation (Renamed from Chronic obstructive asthma with exacerbation) Start:26-Mar-2017 Instruction Type:Provider Instructions for Treatment How to access health informa tion online Indication:Nonsmoker Start:09-Jan-2017 Instruction Type:Patient Education How to access health informa tion online - Detail Indication:Nonsmoker Start:09-Jan-2017 Instruction Type:Patient Education Patient Instructions Indication:Nonsmoker Start:09-Jan-2017 Instruction Type:Provider Instructions for Treatment How to access health informa tion online Indication:Abnormal glucose tolerance test Start:02-Jan-2017 Instruction Type:Patient Education How to access health informa tion online - Detail Indication:Abnormal glucose tolerance test Start:02-Jan-2017 Instruction Type:Patient Education Patient Instructions Indication:Abnormal glucose tolerance test Start:02-Jan-2017 Instruction Type:Provider Instructions for Treatment How to access health informa tion online Indication:Cough Start:14-Mar-2016 Instruction Type:Patient Education How to access health informa tion online - Detail Indication:Cough Start:14-Mar-2016 Instruction Type:Patient Education Patient Instructions Indication:Cough Start:14-Mar-2016 Instruction Type:Provider Instructions for Treatment How to access health informa tion online Indication:Cough Start:31-Jan-2015 Instruction Type:Patient Education How to access health informa tion online - Detail Indication:Cough Start:31-Jan-2015 Instruction Type:Patient Education Patient Instructions Indication:Cough Start:31-Jan-2015 Instruction Type:Provider Instructions for Treatment [facility]; [facility] Work Phone: Instructions* Name Dates Details Patient Instructions Indication:BMI 25.0-25.9,adult Start:29-May-2022 Instruction Type:Provider Instructions for Treatment How to Access Health Informa tion Online using Patient Portal and [employer] Apps Indication:BMI 25.0-25.9,adult Start:29-May-2022 Instruction Type:Patient Education Patient Instructions Indication:Cough Start:05-May-2022 Instruction Type:Provider Instructions for Treatment How to Access Health Informa tion Online using Patient Portal and [employer] Apps Indication:Cough Start:05-May-2022 Instruction Type:Patient Education Patient Instructions Indication:Non-smoker Start:26-Mar-2022 Instruction Type:Provider Instructions for Treatment How to Access Health Informa tion Online using Patient Portal and [employer] Apps Indication:Non-smoker Start:26-Mar-2022 Instruction Type:Patient Education Patient Instructions Indication:BMI 25.0-25.9,adult Start:25-Mar-2022 Instruction Type:Provider Instructions for Treatment How to Access Health Informa tion Online using Patient Portal and [employer] Apps Indication:BMI 25.0-25.9,adult Start:25-Mar-2022 Instruction Type:Patient Education Patient Instructions Indication:Non-smoker Start:03-Feb-2022 Instruction Type:Provider Instructions for Treatment How to Access Health Informa tion Online using Patient Portal and [employer] Apps Indication:Non-smoker Start:03-Feb-2022 Instruction Type:Patient Education Patient Instructions Indication:BMI 25.0-25.9,adult Start:06-Jan-2022 Instruction Type:Provider Instructions for Treatment How to Access Health Informa tion Online using Patient Portal and [employer] Apps Indication:BMI 25.0-25.9,adult Start:06-Jan-2022 Instruction Type:Patient Education Patient Instructions Indication:BMI 25.0-25.9,adult Start:21-Oct-2021 Instruction Type:Provider Instructions for Treatment How to Access Health Informa tion Online using Patient Portal and [employer] Apps Indication:BMI 25.0-25.9,adult Start:21-Oct-2021 Instruction Type:Patient Education Patient Instructions Indication:BMI 27.0-27.9,adult Start:25-Sep-2021 Instruction Type:Provider Instructions for Treatment How to Access Health Informa tion Online using Patient Portal and [employer] Apps Indication:BMI 27.0-27.9,adult Start:25-Sep-2021 Instruction Type:Patient Education Patient Instructions Indication:BMI 27.0-27.9,adult Start:18-Sep-2021 Instruction Type:Provider Instructions for Treatment How to Access Health Informa tion Online using Patient Portal and [employer] Apps Indication:BMI 27.0-27.9,adult Start:18-Sep-2021 Instruction Type:Patient Education Patient Instructions Indication:Non-smoker Start:13-Sep-2021 Instruction Type:Provider Instructions for Treatment How to Access Health Informa tion Online using Patient Portal and [employer] Apps Indication:Non-smoker Start:13-Sep-2021 Instruction Type:Patient Education Patient Instructions Indication:BMI 27.0-27.9,adult Start:30-Jan-2021 Instruction Type:Provider Instructions for Treatment How to Access Health Informa tion Online using Patient Portal and [employer] Apps Indication:BMI 27.0-27.9,adult Start:30-Jan-2021 Instruction Type:Patient Education Patient Instructions Indication:Non-smoker Start:23-Oct-2020 Instruction Type:Provider Instructions for Treatment How to Access Health Informa tion Online using Patient Portal and [employer] Apps Indication:Non-smoker Start:23-Oct-2020 Instruction Type:Patient Education Patient Instructions Indication:BMI 27.0-27.9,adult Start:19-Oct-2020 Instruction Type:Provider Instructions for Treatment How to Access Health Informa tion Online using Patient Portal and [employer] Apps Indication:BMI 27.0-27.9,adult Start:19-Oct-2020 Instruction Type:Patient Education How to access health informa tion online Indication:BMI 27.0-27.9,adult Start:16-Jan-2020 Instruction Type:Patient Education How to access health informa tion online - Detail Indication:BMI 27.0-27.9,adult Start:16-Jan-2020 Instruction Type:Patient Education Patient Instructions Indication:BMI 27.0-27.9,adult Start:16-Jan-2020 Instruction Type:Provider Instructions for Treatment How to access health informa tion online Indication:Non-smoker Start:24-Oct-2019 Instruction Type:Patient Education How to access health informa tion online - Detail Indication:Non-smoker Start:24-Oct-2019 Instruction Type:Patient Education Patient Instructions Indication:BMI 27.0-27.9,adult Start:24-Oct-2019 Instruction Type:Provider Instructions for Treatment How to access health informa tion online Indication:Non-smoker Start:25-Aug-2019 Instruction Type:Patient Education How to access health informa tion online - Detail Indication:Non-smoker Start:25-Aug-2019 Instruction Type:Patient Education Patient Instructions Indication:Non-smoker Start:25-Aug-2019 Instruction Type:Provider Instructions for Treatment How to access health informa tion online Indication:Non-smoker Start:12-May-2019 Instruction Type:Patient Education How to access health informa tion online - Detail Indication:Non-smoker Start:12-May-2019 Instruction Type:Patient Education Patient Instructions Indication:Non-smoker Start:12-May-2019 Instruction Type:Provider Instructions for Treatment How to access health informa tion online Indication:Non-smoker Start:02-May-2019 Instruction Type:Patient Education How to access health informa tion online - Detail Indication:Non-smoker Start:02-May-2019 Instruction Type:Patient Education Patient Instructions Indication:Non-smoker Start:02-May-2019 Instruction Type:Provider Instructions for Treatment How to access health informa tion online Indication:BMI 26.0-26.9,adult Start:28-Apr-2019 Instruction Type:Patient Education How to access health informa tion online - Detail Indication:BMI 26.0-26.9,adult Start:28-Apr-2019 Instruction Type:Patient Education Patient Instructions Indication:BMI 26.0-26.9,adult Start:28-Apr-2019 Instruction Type:Provider Instructions for Treatment How to access health informa tion online Indication:Cough Start:26-Apr-2019 Instruction Type:Patient Education How to access health informa tion online - Detail Indication:Cough Start:26-Apr-2019 Instruction Type:Patient Education Patient Instructions Indication:Cough Start:26-Apr-2019 Instruction Type:Provider Instructions for Treatment How to access health informa tion online Indication:Nasal congestion Start:12-Apr-2019 Instruction Type:Patient Education How to access health informa tion online - Detail Indication:Nasal congestion Start:12-Apr-2019 Instruction Type:Patient Education Patient Instructions Indication:Nasal congestion Start:12-Apr-2019 Instruction Type:Provider Instructions for Treatment How to access health informa tion online Indication:Cough Start:08-Feb-2019 Instruction Type:Patient Education How to access health informa tion online - Detail Indication:Cough Start:08-Feb-2019 Instruction Type:Patient Education Patient Instructions Indication:Cough Start:08-Feb-2019 Instruction Type:Provider Instructions for Treatment How to access health informa tion online Indication:Nonsmoker Start:29-Jul-2018 Instruction Type:Patient Education How to access health informa tion online - Detail Indication:Nonsmoker Start:29-Jul-2018 Instruction Type:Patient Education Patient Instructions Indication:Nonsmoker Start:29-Jul-2018 Instruction Type:Provider Instructions for Treatment How to access health informa tion online Indication:BMI 25.0-25.9,adult Start:26-Mar-2017 Instruction Type:Patient Education How to access health informa tion online - Detail Indication:BMI 25.0-25.9,adult Start:26-Mar-2017 Instruction Type:Patient Education Patient Instructions Indication:Chronic obstructive asthma with acute exacerbation (Renamed from Chronic obstructive asthma with exacerbation) Start:26-Mar-2017 Instruction Type:Provider Instructions for Treatment How to access health informa tion online Indication:Nonsmoker Start:09-Jan-2017 Instruction Type:Patient Education How to access health informa tion online - Detail Indication:Nonsmoker Start:09-Jan-2017 Instruction Type:Patient Education Patient Instructions Indication:Nonsmoker Start:09-Jan-2017 Instruction Type:Provider Instructions for Treatment How to access health informa tion online Indication:Abnormal glucose tolerance test Start:02-Jan-2017 Instruction Type:Patient Education How to access health informa tion online - Detail Indication:Abnormal glucose tolerance test Start:02-Jan-2017 Instruction Type:Patient Education Patient Instructions Indication:Abnormal glucose tolerance test Start:02-Jan-2017 Instruction Type:Provider Instructions for Treatment How to access health informa tion online Indication:Cough Start:14-Mar-2016 Instruction Type:Patient Education How to access health informa tion online - Detail Indication:Cough Start:14-Mar-2016 Instruction Type:Patient Education Patient Instructions Indication:Cough Start:14-Mar-2016 Instruction Type:Provider Instructions for Treatment How to access health informa tion online Indication:Cough Start:31-Jan-2015 Instruction Type:Patient Education How to access health informa tion online - Detail Indication:Cough Start:31-Jan-2015 Instruction Type:Patient Education Patient Instructions Indication:Cough Start:31-Jan-2015 Instruction Type:Provider Instructions for Treatment [facility]; [facility] Work Phone: Instructions* Name Dates Details Patient Instructions Indication:BMI 25.0-25.9,adult Start:29-May-2022 Instruction Type:Provider Instructions for Treatment How to Access Health Informa tion Online using Patient Portal and [employer] Apps Indication:BMI 25.0-25.9,adult Start:29-May-2022 Instruction Type:Patient Education Patient Instructions Indication:Cough Start:05-May-2022 Instruction Type:Provider Instructions for Treatment How to Access Health Informa tion Online using Patient Portal and [employer] Apps Indication:Cough Start:05-May-2022 Instruction Type:Patient Education Patient Instructions Indication:Non-smoker Start:26-Mar-2022 Instruction Type:Provider Instructions for Treatment How to Access Health Informa tion Online using Patient Portal and [employer] Apps Indication:Non-smoker Start:26-Mar-2022 Instruction Type:Patient Education Patient Instructions Indication:BMI 25.0-25.9,adult Start:25-Mar-2022 Instruction Type:Provider Instructions for Treatment How to Access Health Informa tion Online using Patient Portal and [employer] Apps Indication:BMI 25.0-25.9,adult Start:25-Mar-2022 Instruction Type:Patient Education Patient Instructions Indication:Non-smoker Start:03-Feb-2022 Instruction Type:Provider Instructions for Treatment How to Access Health Informa tion Online using Patient Portal and [employer] Apps Indication:Non-smoker Start:03-Feb-2022 Instruction Type:Patient Education Patient Instructions Indication:BMI 25.0-25.9,adult Start:06-Jan-2022 Instruction Type:Provider Instructions for Treatment How to Access Health Informa tion Online using Patient Portal and [employer] Apps Indication:BMI 25.0-25.9,adult Start:06-Jan-2022 Instruction Type:Patient Education Patient Instructions Indication:BMI 25.0-25.9,adult Start:21-Oct-2021 Instruction Type:Provider Instructions for Treatment How to Access Health Informa tion Online using Patient Portal and [employer] Apps Indication:BMI 25.0-25.9,adult Start:21-Oct-2021 Instruction Type:Patient Education Patient Instructions Indication:BMI 27.0-27.9,adult Start:25-Sep-2021 Instruction Type:Provider Instructions for Treatment How to Access Health Informa tion Online using Patient Portal and [employer] Apps Indication:BMI 27.0-27.9,adult Start:25-Sep-2021 Instruction Type:Patient Education Patient Instructions Indication:BMI 27.0-27.9,adult Start:18-Sep-2021 Instruction Type:Provider Instructions for Treatment How to Access Health Informa tion Online using Patient Portal and [employer] Apps Indication:BMI 27.0-27.9,adult Start:18-Sep-2021 Instruction Type:Patient Education Patient Instructions Indication:Non-smoker Start:13-Sep-2021 Instruction Type:Provider Instructions for Treatment How to Access Health Informa tion Online using Patient Portal and [employer] Apps Indication:Non-smoker Start:13-Sep-2021 Instruction Type:Patient Education Patient Instructions Indication:BMI 27.0-27.9,adult Start:30-Jan-2021 Instruction Type:Provider Instructions for Treatment How to Access Health Informa tion Online using Patient Portal and [employer] Apps Indication:BMI 27.0-27.9,adult Start:30-Jan-2021 Instruction Type:Patient Education Patient Instructions Indication:Non-smoker Start:23-Oct-2020 Instruction Type:Provider Instructions for Treatment How to Access Health Informa tion Online using Patient Portal and [employer] Apps Indication:Non-smoker Start:23-Oct-2020 Instruction Type:Patient Education Patient Instructions Indication:BMI 27.0-27.9,adult Start:19-Oct-2020 Instruction Type:Provider Instructions for Treatment How to Access Health Informa tion Online using Patient Portal and [employer] Apps Indication:BMI 27.0-27.9,adult Start:19-Oct-2020 Instruction Type:Patient Education How to access health informa tion online Indication:BMI 27.0-27.9,adult Start:16-Jan-2020 Instruction Type:Patient Education How to access health informa tion online - Detail Indication:BMI 27.0-27.9,adult Start:16-Jan-2020 Instruction Type:Patient Education Patient Instructions Indication:BMI 27.0-27.9,adult Start:16-Jan-2020 Instruction Type:Provider Instructions for Treatment How to access health informa tion online Indication:Non-smoker Start:24-Oct-2019 Instruction Type:Patient Education How to access health informa tion online - Detail Indication:Non-smoker Start:24-Oct-2019 Instruction Type:Patient Education Patient Instructions Indication:BMI 27.0-27.9,adult Start:24-Oct-2019 Instruction Type:Provider Instructions for Treatment How to access health informa tion online Indication:Non-smoker Start:25-Aug-2019 Instruction Type:Patient Education How to access health informa tion online - Detail Indication:Non-smoker Start:25-Aug-2019 Instruction Type:Patient Education Patient Instructions Indication:Non-smoker Start:25-Aug-2019 Instruction Type:Provider Instructions for Treatment How to access health informa tion online Indication:Non-smoker Start:12-May-2019 Instruction Type:Patient Education How to access health informa tion online - Detail Indication:Non-smoker Start:12-May-2019 Instruction Type:Patient Education Patient Instructions Indication:Non-smoker Start:12-May-2019 Instruction Type:Provider Instructions for Treatment How to access health informa tion online Indication:Non-smoker Start:02-May-2019 Instruction Type:Patient Education How to access health informa tion online - Detail Indication:Non-smoker Start:02-May-2019 Instruction Type:Patient Education Patient Instructions Indication:Non-smoker Start:02-May-2019 Instruction Type:Provider Instructions for Treatment How to access health informa tion online Indication:BMI 26.0-26.9,adult Start:28-Apr-2019 Instruction Type:Patient Education How to access health informa tion online - Detail Indication:BMI 26.0-26.9,adult Start:28-Apr-2019 Instruction Type:Patient Education Patient Instructions Indication:BMI 26.0-26.9,adult Start:28-Apr-2019 Instruction Type:Provider Instructions for Treatment How to access health informa tion online Indication:Cough Start:26-Apr-2019 Instruction Type:Patient Education How to access health informa tion online - Detail Indication:Cough Start:26-Apr-2019 Instruction Type:Patient Education Patient Instructions Indication:Cough Start:26-Apr-2019 Instruction Type:Provider Instructions for Treatment How to access health informa tion online Indication:Nasal congestion Start:12-Apr-2019 Instruction Type:Patient Education How to access health informa tion online - Detail Indication:Nasal congestion Start:12-Apr-2019 Instruction Type:Patient Education Patient Instructions Indication:Nasal congestion Start:12-Apr-2019 Instruction Type:Provider Instructions for Treatment How to access health informa tion online Indication:Cough Start:08-Feb-2019 Instruction Type:Patient Education How to access health informa tion online - Detail Indication:Cough Start:08-Feb-2019 Instruction Type:Patient Education Patient Instructions Indication:Cough Start:08-Feb-2019 Instruction Type:Provider Instructions for Treatment How to access health informa tion online Indication:Nonsmoker Start:29-Jul-2018 Instruction Type:Patient Education How to access health informa tion online - Detail Indication:Nonsmoker Start:29-Jul-2018 Instruction Type:Patient Education Patient Instructions Indication:Nonsmoker Start:29-Jul-2018 Instruction Type:Provider Instructions for Treatment How to access health informa tion online Indication:BMI 25.0-25.9,adult Start:26-Mar-2017 Instruction Type:Patient Education How to access health informa tion online - Detail Indication:BMI 25.0-25.9,adult Start:26-Mar-2017 Instruction Type:Patient Education Patient Instructions Indication:Chronic obstructive asthma with acute exacerbation (Renamed from Chronic obstructive asthma with exacerbation) Start:26-Mar-2017 Instruction Type:Provider Instructions for Treatment How to access health informa tion online Indication:Nonsmoker Start:09-Jan-2017 Instruction Type:Patient Education How to access health informa tion online - Detail Indication:Nonsmoker Start:09-Jan-2017 Instruction Type:Patient Education Patient Instructions Indication:Nonsmoker Start:09-Jan-2017 Instruction Type:Provider Instructions for Treatment How to access health informa tion online Indication:Abnormal glucose tolerance test Start:02-Jan-2017 Instruction Type:Patient Education How to access health informa tion online - Detail Indication:Abnormal glucose tolerance test Start:02-Jan-2017 Instruction Type:Patient Education Patient Instructions Indication:Abnormal glucose tolerance test Start:02-Jan-2017 Instruction Type:Provider Instructions for Treatment How to access health informa tion online Indication:Cough Start:14-Mar-2016 Instruction Type:Patient Education How to access health informa tion online - Detail Indication:Cough Start:14-Mar-2016 Instruction Type:Patient Education Patient Instructions Indication:Cough Start:14-Mar-2016 Instruction Type:Provider Instructions for Treatment How to access health informa tion online Indication:Cough Start:31-Jan-2015 Instruction Type:Patient Education How to access health informa tion online - Detail Indication:Cough Start:31-Jan-2015 Instruction Type:Patient Education Patient Instructions Indication:Cough Start:31-Jan-2015 Instruction Type:Provider Instructions for Treatment [facility]; [facility] Work Phone: Instructions* Name Dates Details Patient Instructions Indication:BMI 25.0-25.9,adult Start:29-May-2022 Instruction Type:Provider Instructions for Treatment How to Access Health Informa tion Online using Patient Portal and [employer] Apps Indication:BMI 25.0-25.9,adult Start:29-May-2022 Instruction Type:Patient Education Patient Instructions Indication:Cough Start:05-May-2022 Instruction Type:Provider Instructions for Treatment How to Access Health Informa tion Online using Patient Portal and [employer] Indication:Cough Start:05-May-2022 Instruction Type:Patient Education Patient Instructions Indication:Non-smoker Start:26-Mar-2022 Instruction Type:Provider Instructions for Treatment How to Access Health Informa tion Online using Patient Portal and [employer] Apps Indication:Non-smoker Start:26-Mar-2022 Instruction Type:Patient Education Patient Instructions Indication:BMI 25.0-25.9,adult Start:25-Mar-2022 Instruction Type:Provider Instructions for Treatment How to Access Health Informa tion Online using Patient Portal and [employer] Apps Indication:BMI 25.0-25.9,adult Start:25-Mar-2022 Instruction Type:Patient Education Patient Instructions Indication:Non-smoker Start:03-Feb-2022 Instruction Type:Provider Instructions for Treatment How to Access Health Informa tion Online using Patient Portal and [employer] Apps Indication:Non-smoker Start:03-Feb-2022 Instruction Type:Patient Education Patient Instructions Indication:BMI 25.0-25.9,adult Start:06-Jan-2022 Instruction Type:Provider Instructions for Treatment How to Access Health Informa tion Online using Patient Portal and [employer] Apps Indication:BMI 25.0-25.9,adult Start:06-Jan-2022 Instruction Type:Patient Education Patient Instructions Indication:BMI 25.0-25.9,adult Start:21-Oct-2021 Instruction Type:Provider Instructions for Treatment How to Access Health Informa tion Online using Patient Portal and [employer] Apps Indication:BMI 25.0-25.9,adult Start:21-Oct-2021 Instruction Type:Patient Education Patient Instructions Indication:BMI 27.0-27.9,adult Start:25-Sep-2021 Instruction Type:Provider Instructions for Treatment How to Access Health Informa tion Online using Patient Portal and [employer] Apps Indication:BMI 27.0-27.9,adult Start:25-Sep-2021 Instruction Type:Patient Education Patient Instructions Indication:BMI 27.0-27.9,adult Start:18-Sep-2021 Instruction Type:Provider Instructions for Treatment How to Access Health Informa tion Online using Patient Portal and [employer] Apps Indication:BMI 27.0-27.9,adult Start:18-Sep-2021 Instruction Type:Patient Education Patient Instructions Indication:Non-smoker Start:13-Sep-2021 Instruction Type:Provider Instructions for Treatment How to Access Health Informa tion Online using Patient Portal and [employer] Apps Indication:Non-smoker Start:13-Sep-2021 Instruction Type:Patient Education Patient Instructions Indication:BMI 27.0-27.9,adult Start:30-Jan-2021 Instruction Type:Provider Instructions for Treatment How to Access Health Informa tion Online using Patient Portal and [employer] Apps Indication:BMI 27.0-27.9,adult Start:30-Jan-2021 Instruction Type:Patient Education Patient Instructions Indication:Non-smoker Start:23-Oct-2020 Instruction Type:Provider Instructions for Treatment How to Access Health Informa tion Online using Patient Portal and [employer] Apps Indication:Non-smoker Start:23-Oct-2020 Instruction Type:Patient Education Patient Instructions Indication:BMI 27.0-27.9,adult Start:19-Oct-2020 Instruction Type:Provider Instructions for Treatment How to Access Health Informa tion Online using Patient Portal and [employer] Apps Indication:BMI 27.0-27.9,adult Start:19-Oct-2020 Instruction Type:Patient Education How to access health informa tion online Indication:BMI 27.0-27.9,adult Start:16-Jan-2020 Instruction Type:Patient Education How to access health informa tion online - Detail Indication:BMI 27.0-27.9,adult Start:16-Jan-2020 Instruction Type:Patient Education Patient Instructions Indication:BMI 27.0-27.9,adult Start:16-Jan-2020 Instruction Type:Provider Instructions for Treatment How to access health informa tion online Indication:Non-smoker Start:24-Oct-2019 Instruction Type:Patient Education How to access health informa tion online - Detail Indication:Non-smoker Start:24-Oct-2019 Instruction Type:Patient Education Patient Instructions Indication:BMI 27.0-27.9,adult Start:24-Oct-2019 Instruction Type:Provider Instructions for Treatment How to access health informa tion online Indication:Non-smoker Start:25-Aug-2019 Instruction Type:Patient Education How to access health informa tion online - Detail Indication:Non-smoker Start:25-Aug-2019 Instruction Type:Patient Education Patient Instructions Indication:Non-smoker Start:25-Aug-2019 Instruction Type:Provider Instructions for Treatment How to access health informa tion online Indication:Non-smoker Start:12-May-2019 Instruction Type:Patient Education How to access health informa tion online - Detail Indication:Non-smoker Start:12-May-2019 Instruction Type:Patient Education Patient Instructions Indication:Non-smoker Start:12-May-2019 Instruction Type:Provider Instructions for Treatment How to access health informa tion online Indication:Non-smoker Start:02-May-2019 Instruction Type:Patient Education How to access health informa tion online - Detail Indication:Non-smoker Start:02-May-2019 Instruction Type:Patient Education Patient Instructions Indication:Non-smoker Start:02-May-2019 Instruction Type:Provider Instructions for Treatment How to access health informa tion online Indication:BMI 26.0-26.9,adult Start:28-Apr-2019 Instruction Type:Patient Education How to access health informa tion online - Detail Indication:BMI 26.0-26.9,adult Start:28-Apr-2019 Instruction Type:Patient Education Patient Instructions Indication:BMI 26.0-26.9,adult Start:28-Apr-2019 Instruction Type:Provider Instructions for Treatment How to access health informa tion online Indication:Cough Start:26-Apr-2019 Instruction Type:Patient Education How to access health informa tion online - Detail Indication:Cough Start:26-Apr-2019 Instruction Type:Patient Education Patient Instructions Indication:Cough Start:26-Apr-2019 Instruction Type:Provider Instructions for Treatment How to access health informa tion online Indication:Nasal congestion Start:12-Apr-2019 Instruction Type:Patient Education How to access health informa tion online - Detail Indication:Nasal congestion Start:12-Apr-2019 Instruction Type:Patient Education Patient Instructions Indication:Nasal congestion Start:12-Apr-2019 Instruction Type:Provider Instructions for Treatment How to access health informa tion online Indication:Cough Start:08-Feb-2019 Instruction Type:Patient Education How to access health informa tion online - Detail Indication:Cough Start:08-Feb-2019 Instruction Type:Patient Education Patient Instructions Indication:Cough Start:08-Feb-2019 Instruction Type:Provider Instructions for Treatment How to access health informa tion online Indication:Nonsmoker Start:29-Jul-2018 Instruction Type:Patient Education How to access health informa tion online - Detail Indication:Nonsmoker Start:29-Jul-2018 Instruction Type:Patient Education Patient Instructions Indication:Nonsmoker Start:29-Jul-2018 Instruction Type:Provider Instructions for Treatment How to access health informa tion online Indication:BMI 25.0-25.9,adult Start:26-Mar-2017 Instruction Type:Patient Education How to access health informa tion online - Detail Indication:BMI 25.0-25.9,adult Start:26-Mar-2017 Instruction Type:Patient Education Patient Instructions Indication:Chronic obstructive asthma with acute exacerbation (Renamed from Chronic obstructive asthma with exacerbation) Start:26-Mar-2017 Instruction Type:Provider Instructions for Treatment How to access health informa tion online Indication:Nonsmoker Start:09-Jan-2017 Instruction Type:Patient Education How to access health informa tion online - Detail Indication:Nonsmoker Start:09-Jan-2017 Instruction Type:Patient Education Patient Instructions Indication:Nonsmoker Start:09-Jan-2017 Instruction Type:Provider Instructions for Treatment How to access health informa tion online Indication:Abnormal glucose tolerance test Start:02-Jan-2017 Instruction Type:Patient Education How to access health informa tion online - Detail Indication:Abnormal glucose tolerance test Start:02-Jan-2017 Instruction Type:Patient Education Patient Instructions Indication:Abnormal glucose tolerance test Start:02-Jan-2017 Instruction Type:Provider Instructions for Treatment How to access health informa tion online Indication:Cough Start:14-Mar-2016 Instruction Type:Patient Education How to access health informa tion online - Detail Indication:Cough Start:14-Mar-2016 Instruction Type:Patient Education Patient Instructions Indication:Cough Start:14-Mar-2016 Instruction Type:Provider Instructions for Treatment How to access health informa tion online Indication:Cough Start:31-Jan-2015 Instruction Type:Patient Education How to access health informa tion online - Detail Indication:Cough Start:31-Jan-2015 Instruction Type:Patient Education Patient Instructions Indication:Cough Start:31-Jan-2015 Instruction Type:Provider Instructions for Treatment [facility]; [facility] Work Phone: Instructions* Name Dates Details Patient Instructions Indication:BMI 25.0-25.9,adult Start:29-May-2022 Instruction Type:Provider Instructions for Treatment How to Access Health Informa tion Online using Patient Portal and [employer] Apps Indication:BMI 25.0-25.9,adult Start:29-May-2022 Instruction Type:Patient Education Patient Instructions Indication:Cough Start:05-May-2022 Instruction Type:Provider Instructions for Treatment How to Access Health Informa tion Online using Patient Portal and [employer] Apps Indication:Cough Start:05-May-2022 Instruction Type:Patient Education Patient Instructions Indication:Non-smoker Start:26-Mar-2022 Instruction Type:Provider Instructions for Treatment How to Access Health Informa tion Online using Patient Portal and [employer] Apps Indication:Non-smoker Start:26-Mar-2022 Instruction Type:Patient Education Patient Instructions Indication:BMI 25.0-25.9,adult Start:25-Mar-2022 Instruction Type:Provider Instructions for Treatment How to Access Health Informa tion Online using Patient Portal and [employer] Apps Indication:BMI 25.0-25.9,adult Start:25-Mar-2022 Instruction Type:Patient Education Patient Instructions Indication:Non-smoker Start:03-Feb-2022 Instruction Type:Provider Instructions for Treatment How to Access Health Informa tion Online using Patient Portal and [employer] Apps Indication:Non-smoker Start:03-Feb-2022 Instruction Type:Patient Education Patient Instructions Indication:BMI 25.0-25.9,adult Start:06-Jan-2022 Instruction Type:Provider Instructions for Treatment How to Access Health Informa tion Online using Patient Portal and [employer] Apps Indication:BMI 25.0-25.9,adult Start:06-Jan-2022 Instruction Type:Patient Education Patient Instructions Indication:BMI 25.0-25.9,adult Start:21-Oct-2021 Instruction Type:Provider Instructions for Treatment How to Access Health Informa tion Online using Patient Portal and [employer] Apps Indication:BMI 25.0-25.9,adult Start:21-Oct-2021 Instruction Type:Patient Education Patient Instructions Indication:BMI 27.0-27.9,adult Start:25-Sep-2021 Instruction Type:Provider Instructions for Treatment How to Access Health Informa tion Online using Patient Portal and [employer] Apps Indication:BMI 27.0-27.9,adult Start:25-Sep-2021 Instruction Type:Patient Education Patient Instructions Indication:BMI 27.0-27.9,adult Start:18-Sep-2021 Instruction Type:Provider Instructions for Treatment How to Access Health Informa tion Online using Patient Portal and [employer] Apps Indication:BMI 27.0-27.9,adult Start:18-Sep-2021 Instruction Type:Patient Education Patient Instructions Indication:Non-smoker Start:13-Sep-2021 Instruction Type:Provider Instructions for Treatment How to Access Health Informa tion Online using Patient Portal and [employer] Apps Indication:Non-smoker Start:13-Sep-2021 Instruction Type:Patient Education Patient Instructions Indication:BMI 27.0-27.9,adult Start:30-Jan-2021 Instruction Type:Provider Instructions for Treatment How to Access Health Informa tion Online using Patient Portal and [employer] Apps Indication:BMI 27.0-27.9,adult Start:30-Jan-2021 Instruction Type:Patient Education Patient Instructions Indication:Non-smoker Start:23-Oct-2020 Instruction Type:Provider Instructions for Treatment How to Access Health Informa tion Online using Patient Portal and [employer] Apps Indication:Non-smoker Start:23-Oct-2020 Instruction Type:Patient Education Patient Instructions Indication:BMI 27.0-27.9,adult Start:19-Oct-2020 Instruction Type:Provider Instructions for Treatment How to Access Health Informa tion Online using Patient Portal and [employer] Apps Indication:BMI 27.0-27.9,adult Start:19-Oct-2020 Instruction Type:Patient Education How to access health informa tion online Indication:BMI 27.0-27.9,adult Start:16-Jan-2020 Instruction Type:Patient Education How to access health informa tion online - Detail Indication:BMI 27.0-27.9,adult Start:16-Jan-2020 Instruction Type:Patient Education Patient Instructions Indication:BMI 27.0-27.9,adult Start:16-Jan-2020 Instruction Type:Provider Instructions for Treatment How to access health informa tion online Indication:Non-smoker Start:24-Oct-2019 Instruction Type:Patient Education How to access health informa tion online - Detail Indication:Non-smoker Start:24-Oct-2019 Instruction Type:Patient Education Patient Instructions Indication:BMI 27.0-27.9,adult Start:24-Oct-2019 Instruction Type:Provider Instructions for Treatment How to access health informa tion online Indication:Non-smoker Start:25-Aug-2019 Instruction Type:Patient Education How to access health informa tion online - Detail Indication:Non-smoker Start:25-Aug-2019 Instruction Type:Patient Education Patient Instructions Indication:Non-smoker Start:25-Aug-2019 Instruction Type:Provider Instructions for Treatment How to access health informa tion online Indication:Non-smoker Start:12-May-2019 Instruction Type:Patient Education How to access health informa tion online - Detail Indication:Non-smoker Start:12-May-2019 Instruction Type:Patient Education Patient Instructions Indication:Non-smoker Start:12-May-2019 Instruction Type:Provider Instructions for Treatment How to access health informa tion online Indication:Non-smoker Start:02-May-2019 Instruction Type:Patient Education How to access health informa tion online - Detail Indication:Non-smoker Start:02-May-2019 Instruction Type:Patient Education Patient Instructions Indication:Non-smoker Start:02-May-2019 Instruction Type:Provider Instructions for Treatment How to access health informa tion online Indication:BMI 26.0-26.9,adult Start:28-Apr-2019 Instruction Type:Patient Education How to access health informa tion online - Detail Indication:BMI 26.0-26.9,adult Start:28-Apr-2019 Instruction Type:Patient Education Patient Instructions Indication:BMI 26.0-26.9,adult Start:28-Apr-2019 Instruction Type:Provider Instructions for Treatment How to access health informa tion online Indication:Cough Start:26-Apr-2019 Instruction Type:Patient Education How to access health informa tion online - Detail Indication:Cough Start:26-Apr-2019 Instruction Type:Patient Education Patient Instructions Indication:Cough Start:26-Apr-2019 Instruction Type:Provider Instructions for Treatment How to access health informa tion online Indication:Nasal congestion Start:12-Apr-2019 Instruction Type:Patient Education How to access health informa tion online - Detail Indication:Nasal congestion Start:12-Apr-2019 Instruction Type:Patient Education Patient Instructions Indication:Nasal congestion Start:12-Apr-2019 Instruction Type:Provider Instructions for Treatment How to access health informa tion online Indication:Cough Start:08-Feb-2019 Instruction Type:Patient Education How to access health informa tion online - Detail Indication:Cough Start:08-Feb-2019 Instruction Type:Patient Education Patient Instructions Indication:Cough Start:08-Feb-2019 Instruction Type:Provider Instructions for Treatment How to access health informa tion online Indication:Nonsmoker Start:29-Jul-2018 Instruction Type:Patient Education How to access health informa tion online - Detail Indication:Nonsmoker Start:29-Jul-2018 Instruction Type:Patient Education Patient Instructions Indication:Nonsmoker Start:29-Jul-2018 Instruction Type:Provider Instructions for Treatment How to access health informa tion online Indication:BMI 25.0-25.9,adult Start:26-Mar-2017 Instruction Type:Patient Education How to access health informa tion online - Detail Indication:BMI 25.0-25.9,adult Start:26-Mar-2017 Instruction Type:Patient Education Patient Instructions Indication:Chronic obstructive asthma with acute exacerbation (Renamed from Chronic obstructive asthma with exacerbation) Start:26-Mar-2017 Instruction Type:Provider Instructions for Treatment How to access health informa tion online Indication:Nonsmoker Start:09-Jan-2017 Instruction Type:Patient Education How to access health informa tion online - Detail Indication:Nonsmoker Start:09-Jan-2017 Instruction Type:Patient Education Patient Instructions Indication:Nonsmoker Start:09-Jan-2017 Instruction Type:Provider Instructions for Treatment How to access health informa tion online Indication:Abnormal glucose tolerance test Start:02-Jan-2017 Instruction Type:Patient Education How to access health informa tion online - Detail Indication:Abnormal glucose tolerance test Start:02-Jan-2017 Instruction Type:Patient Education Patient Instructions Indication:Abnormal glucose tolerance test Start:02-Jan-2017 Instruction Type:Provider Instructions for Treatment How to access health informa tion online Indication:Cough Start:14-Mar-2016 Instruction Type:Patient Education How to access health informa tion online - Detail Indication:Cough Start:14-Mar-2016 Instruction Type:Patient Education Patient Instructions Indication:Cough Start:14-Mar-2016 Instruction Type:Provider Instructions for Treatment How to access health informa tion online Indication:Cough Start:31-Jan-2015 Instruction Type:Patient Education How to access health informa tion online - Detail Indication:Cough Start:31-Jan-2015 Instruction Type:Patient Education Patient Instructions Indication:Cough Start:31-Jan-2015 Instruction Type:Provider Instructions for Treatment [facility]; [facility] Work Phone: Instructions* Name Dates Details Patient Instructions Indication:BMI 25.0-25.9,adult Start:29-May-2022 Instruction Type:Provider Instructions for Treatment How to Access Health Informa tion Online using Patient Portal and [employer] Indication:BMI 25.0-25.9,adult Start:29-May-2022 Instruction Type:Patient Education Patient Instructions Indication:Cough Start:05-May-2022 Instruction Type:Provider Instructions for Treatment How to Access Health Informa tion Online using Patient Portal and [employer] Apps Indication:Cough Start:05-May-2022 Instruction Type:Patient Education Patient Instructions Indication:Non-smoker Start:26-Mar-2022 Instruction Type:Provider Instructions for Treatment How to Access Health Informa tion Online using Patient Portal and [employer] Apps Indication:Non-smoker Start:26-Mar-2022 Instruction Type:Patient Education Patient Instructions Indication:BMI 25.0-25.9,adult Start:25-Mar-2022 Instruction Type:Provider Instructions for Treatment How to Access Health Informa tion Online using Patient Portal and [employer] Indication:BMI 25.0-25.9,adult Start:25-Mar-2022 Instruction Type:Patient Education Patient Instructions Indication:Non-smoker Start:03-Feb-2022 Instruction Type:Provider Instructions for Treatment How to Access Health Informa tion Online using Patient Portal and [employer] Apps Indication:Non-smoker Start:03-Feb-2022 Instruction Type:Patient Education Patient Instructions Indication:BMI 25.0-25.9,adult Start:06-Jan-2022 Instruction Type:Provider Instructions for Treatment How to Access Health Informa tion Online using Patient Portal and [employer] Indication:BMI 25.0-25.9,adult Start:06-Jan-2022 Instruction Type:Patient Education Patient Instructions Indication:BMI 25.0-25.9,adult Start:21-Oct-2021 Instruction Type:Provider Instructions for Treatment How to Access Health Informa tion Online using Patient Portal and [employer] Indication:BMI 25.0-25.9,adult Start:21-Oct-2021 Instruction Type:Patient Education Patient Instructions Indication:BMI 27.0-27.9,adult Start:25-Sep-2021 Instruction Type:Provider Instructions for Treatment How to Access Health Informa tion Online using Patient Portal and [employer] Indication:BMI 27.0-27.9,adult Start:25-Sep-2021 Instruction Type:Patient Education Patient Instructions Indication:BMI 27.0-27.9,adult Start:18-Sep-2021 Instruction Type:Provider Instructions for Treatment How to Access Health Informa tion Online using Patient Portal and [employer] Indication:BMI 27.0-27.9,adult Start:18-Sep-2021 Instruction Type:Patient Education Patient Instructions Indication:Non-smoker Start:13-Sep-2021 Instruction Type:Provider Instructions for Treatment How to Access Health Informa tion Online using Patient Portal and [employer] Indication:Non-smoker Start:13-Sep-2021 Instruction Type:Patient Education Patient Instructions Indication:BMI 27.0-27.9,adult Start:30-Jan-2021 Instruction Type:Provider Instructions for Treatment How to Access Health Informa tion Online using Patient Portal and [employer] Indication:BMI 27.0-27.9,adult Start:30-Jan-2021 Instruction Type:Patient Education Patient Instructions Indication:Non-smoker Start:23-Oct-2020 Instruction Type:Provider Instructions for Treatment How to Access Health Informa tion Online using Patient Portal and [employer] Indication:Non-smoker Start:23-Oct-2020 Instruction Type:Patient Education Patient Instructions Indication:BMI 27.0-27.9,adult Start:19-Oct-2020 Instruction Type:Provider Instructions for Treatment How to Access Health Informa tion Online using Patient Portal and [employer] Indication:BMI 27.0-27.9,adult Start:19-Oct-2020 Instruction Type:Patient Education How to access health informa tion online Indication:BMI 27.0-27.9,adult Start:16-Jan-2020 Instruction Type:Patient Education How to access health informa tion online - Detail Indication:BMI 27.0-27.9,adult Start:16-Jan-2020 Instruction Type:Patient Education Patient Instructions Indication:BMI 27.0-27.9,adult Start:16-Jan-2020 Instruction Type:Provider Instructions for Treatment How to access health informa tion online Indication:Non-smoker Start:24-Oct-2019 Instruction Type:Patient Education How to access health informa tion online - Detail Indication:Non-smoker Start:24-Oct-2019 Instruction Type:Patient Education Patient Instructions Indication:BMI 27.0-27.9,adult Start:24-Oct-2019 Instruction Type:Provider Instructions for Treatment How to access health informa tion online Indication:Non-smoker Start:25-Aug-2019 Instruction Type:Patient Education How to access health informa tion online - Detail Indication:Non-smoker Start:25-Aug-2019 Instruction Type:Patient Education Patient Instructions Indication:Non-smoker Start:25-Aug-2019 Instruction Type:Provider Instructions for Treatment How to access health informa tion online Indication:Non-smoker Start:12-May-2019 Instruction Type:Patient Education How to access health informa tion online - Detail Indication:Non-smoker Start:12-May-2019 Instruction Type:Patient Education Patient Instructions Indication:Non-smoker Start:12-May-2019 Instruction Type:Provider Instructions for Treatment How to access health informa tion online Indication:Non-smoker Start:02-May-2019 Instruction Type:Patient Education How to access health informa tion online - Detail Indication:Non-smoker Start:02-May-2019 Instruction Type:Patient Education Patient Instructions Indication:Non-smoker Start:02-May-2019 Instruction Type:Provider Instructions for Treatment How to access health informa tion online Indication:BMI 26.0-26.9,adult Start:28-Apr-2019 Instruction Type:Patient Education How to access health informa tion online - Detail Indication:BMI 26.0-26.9,adult Start:28-Apr-2019 Instruction Type:Patient Education Patient Instructions Indication:BMI 26.0-26.9,adult Start:28-Apr-2019 Instruction Type:Provider Instructions for Treatment How to access health informa tion online Indication:Cough Start:26-Apr-2019 Instruction Type:Patient Education How to access health informa tion online - Detail Indication:Cough Start:26-Apr-2019 Instruction Type:Patient Education Patient Instructions Indication:Cough Start:26-Apr-2019 Instruction Type:Provider Instructions for Treatment How to access health informa tion online Indication:Nasal congestion Start:12-Apr-2019 Instruction Type:Patient Education How to access health informa tion online - Detail Indication:Nasal congestion Start:12-Apr-2019 Instruction Type:Patient Education Patient Instructions Indication:Nasal congestion Start:12-Apr-2019 Instruction Type:Provider Instructions for Treatment How to access health informa tion online Indication:Cough Start:08-Feb-2019 Instruction Type:Patient Education How to access health informa tion online - Detail Indication:Cough Start:08-Feb-2019 Instruction Type:Patient Education Patient Instructions Indication:Cough Start:08-Feb-2019 Instruction Type:Provider Instructions for Treatment How to access health informa tion online Indication:Nonsmoker Start:29-Jul-2018 Instruction Type:Patient Education How to access health informa tion online - Detail Indication:Nonsmoker Start:29-Jul-2018 Instruction Type:Patient Education Patient Instructions Indication:Nonsmoker Start:29-Jul-2018 Instruction Type:Provider Instructions for Treatment How to access health informa tion online Indication:BMI 25.0-25.9,adult Start:26-Mar-2017 Instruction Type:Patient Education How to access health informa tion online - Detail Indication:BMI 25.0-25.9,adult Start:26-Mar-2017 Instruction Type:Patient Education Patient Instructions Indication:Chronic obstructive asthma with acute exacerbation (Renamed from Chronic obstructive asthma with exacerbation) Start:26-Mar-2017 Instruction Type:Provider Instructions for Treatment How to access health informa tion online Indication:Nonsmoker Start:09-Jan-2017 Instruction Type:Patient Education How to access health informa tion online - Detail Indication:Nonsmoker Start:09-Jan-2017 Instruction Type:Patient Education Patient Instructions Indication:Nonsmoker Start:09-Jan-2017 Instruction Type:Provider Instructions for Treatment How to access health informa tion online Indication:Abnormal glucose tolerance test Start:02-Jan-2017 Instruction Type:Patient Education How to access health informa tion online - Detail Indication:Abnormal glucose tolerance test Start:02-Jan-2017 Instruction Type:Patient Education Patient Instructions Indication:Abnormal glucose tolerance test Start:02-Jan-2017 Instruction Type:Provider Instructions for Treatment How to access health informa tion online Indication:Cough Start:14-Mar-2016 Instruction Type:Patient Education How to access health informa tion online - Detail Indication:Cough Start:14-Mar-2016 Instruction Type:Patient Education Patient Instructions Indication:Cough Start:14-Mar-2016 Instruction Type:Provider Instructions for Treatment How to access health informa tion online Indication:Cough Start:31-Jan-2015 Instruction Type:Patient Education How to access health informa tion online - Detail Indication:Cough Start:31-Jan-2015 Instruction Type:Patient Education Patient Instructions Indication:Cough Start:31-Jan-2015 Instruction Type:Provider Instructions for Treatment [facility]; [facility] Work Phone: Instructions* Name Dates Details Patient Instructions Indication:BMI 25.0-25.9,adult Start:29-May-2022 Instruction Type:Provider Instructions for Treatment How to Access Health Informa tion Online using Patient Portal and [employer] Apps Indication:BMI 25.0-25.9,adult Start:29-May-2022 Instruction Type:Patient Education Patient Instructions Indication:Cough Start:05-May-2022 Instruction Type:Provider Instructions for Treatment How to Access Health Informa tion Online using Patient Portal and [employer] Apps Indication:Cough Start:05-May-2022 Instruction Type:Patient Education Patient Instructions Indication:Non-smoker Start:26-Mar-2022 Instruction Type:Provider Instructions for Treatment How to Access Health Informa tion Online using Patient Portal and [employer] Apps Indication:Non-smoker Start:26-Mar-2022 Instruction Type:Patient Education Patient Instructions Indication:BMI 25.0-25.9,adult Start:25-Mar-2022 Instruction Type:Provider Instructions for Treatment How to Access Health Informa tion Online using Patient Portal and [employer] Apps Indication:BMI 25.0-25.9,adult Start:25-Mar-2022 Instruction Type:Patient Education Patient Instructions Indication:Non-smoker Start:03-Feb-2022 Instruction Type:Provider Instructions for Treatment How to Access Health Informa tion Online using Patient Portal and [employer] Apps Indication:Non-smoker Start:03-Feb-2022 Instruction Type:Patient Education Patient Instructions Indication:BMI 25.0-25.9,adult Start:06-Jan-2022 Instruction Type:Provider Instructions for Treatment How to Access Health Informa tion Online using Patient Portal and [employer] Apps Indication:BMI 25.0-25.9,adult Start:06-Jan-2022 Instruction Type:Patient Education Patient Instructions Indication:BMI 25.0-25.9,adult Start:21-Oct-2021 Instruction Type:Provider Instructions for Treatment How to Access Health Informa tion Online using Patient Portal and [employer] Apps Indication:BMI 25.0-25.9,adult Start:21-Oct-2021 Instruction Type:Patient Education Patient Instructions Indication:BMI 27.0-27.9,adult Start:25-Sep-2021 Instruction Type:Provider Instructions for Treatment How to Access Health Informa tion Online using Patient Portal and [employer] Apps Indication:BMI 27.0-27.9,adult Start:25-Sep-2021 Instruction Type:Patient Education Patient Instructions Indication:BMI 27.0-27.9,adult Start:18-Sep-2021 Instruction Type:Provider Instructions for Treatment How to Access Health Informa tion Online using Patient Portal and [employer] Apps Indication:BMI 27.0-27.9,adult Start:18-Sep-2021 Instruction Type:Patient Education Patient Instructions Indication:Non-smoker Start:13-Sep-2021 Instruction Type:Provider Instructions for Treatment How to Access Health Informa tion Online using Patient Portal and [employer] Apps Indication:Non-smoker Start:13-Sep-2021 Instruction Type:Patient Education Patient Instructions Indication:BMI 27.0-27.9,adult Start:30-Jan-2021 Instruction Type:Provider Instructions for Treatment How to Access Health Informa tion Online using Patient Portal and [employer] Apps Indication:BMI 27.0-27.9,adult Start:30-Jan-2021 Instruction Type:Patient Education Patient Instructions Indication:Non-smoker Start:23-Oct-2020 Instruction Type:Provider Instructions for Treatment How to Access Health Informa tion Online using Patient Portal and [employer] Apps Indication:Non-smoker Start:23-Oct-2020 Instruction Type:Patient Education Patient Instructions Indication:BMI 27.0-27.9,adult Start:19-Oct-2020 Instruction Type:Provider Instructions for Treatment How to Access Health Informa tion Online using Patient Portal and [employer] Apps Indication:BMI 27.0-27.9,adult Start:19-Oct-2020 Instruction Type:Patient Education How to access health informa tion online Indication:BMI 27.0-27.9,adult Start:16-Jan-2020 Instruction Type:Patient Education How to access health informa tion online - Detail Indication:BMI 27.0-27.9,adult Start:16-Jan-2020 Instruction Type:Patient Education Patient Instructions Indication:BMI 27.0-27.9,adult Start:16-Jan-2020 Instruction Type:Provider Instructions for Treatment How to access health informa tion online Indication:Non-smoker Start:24-Oct-2019 Instruction Type:Patient Education How to access health informa tion online - Detail Indication:Non-smoker Start:24-Oct-2019 Instruction Type:Patient Education Patient Instructions Indication:BMI 27.0-27.9,adult Start:24-Oct-2019 Instruction Type:Provider Instructions for Treatment How to access health informa tion online Indication:Non-smoker Start:25-Aug-2019 Instruction Type:Patient Education How to access health informa tion online - Detail Indication:Non-smoker Start:25-Aug-2019 Instruction Type:Patient Education Patient Instructions Indication:Non-smoker Start:25-Aug-2019 Instruction Type:Provider Instructions for Treatment How to access health informa tion online Indication:Non-smoker Start:12-May-2019 Instruction Type:Patient Education How to access health informa tion online - Detail Indication:Non-smoker Start:12-May-2019 Instruction Type:Patient Education Patient Instructions Indication:Non-smoker Start:12-May-2019 Instruction Type:Provider Instructions for Treatment How to access health informa tion online Indication:Non-smoker Start:02-May-2019 Instruction Type:Patient Education How to access health informa tion online - Detail Indication:Non-smoker Start:02-May-2019 Instruction Type:Patient Education Patient Instructions Indication:Non-smoker Start:02-May-2019 Instruction Type:Provider Instructions for Treatment How to access health informa tion online Indication:BMI 26.0-26.9,adult Start:28-Apr-2019 Instruction Type:Patient Education How to access health informa tion online - Detail Indication:BMI 26.0-26.9,adult Start:28-Apr-2019 Instruction Type:Patient Education Patient Instructions Indication:BMI 26.0-26.9,adult Start:28-Apr-2019 Instruction Type:Provider Instructions for Treatment How to access health informa tion online Indication:Cough Start:26-Apr-2019 Instruction Type:Patient Education How to access health informa tion online - Detail Indication:Cough Start:26-Apr-2019 Instruction Type:Patient Education Patient Instructions Indication:Cough Start:26-Apr-2019 Instruction Type:Provider Instructions for Treatment How to access health informa tion online Indication:Nasal congestion Start:12-Apr-2019 Instruction Type:Patient Education How to access health informa tion online - Detail Indication:Nasal congestion Start:12-Apr-2019 Instruction Type:Patient Education Patient Instructions Indication:Nasal congestion Start:12-Apr-2019 Instruction Type:Provider Instructions for Treatment How to access health informa tion online Indication:Cough Start:08-Feb-2019 Instruction Type:Patient Education How to access health informa tion online - Detail Indication:Cough Start:08-Feb-2019 Instruction Type:Patient Education Patient Instructions Indication:Cough Start:08-Feb-2019 Instruction Type:Provider Instructions for Treatment How to access health informa tion online Indication:Nonsmoker Start:29-Jul-2018 Instruction Type:Patient Education How to access health informa tion online - Detail Indication:Nonsmoker Start:29-Jul-2018 Instruction Type:Patient Education Patient Instructions Indication:Nonsmoker Start:29-Jul-2018 Instruction Type:Provider Instructions for Treatment How to access health informa tion online Indication:BMI 25.0-25.9,adult Start:26-Mar-2017 Instruction Type:Patient Education How to access health informa tion online - Detail Indication:BMI 25.0-25.9,adult Start:26-Mar-2017 Instruction Type:Patient Education Patient Instructions Indication:Chronic obstructive asthma with acute exacerbation (Renamed from Chronic obstructive asthma with exacerbation) Start:26-Mar-2017 Instruction Type:Provider Instructions for Treatment How to access health informa tion online Indication:Nonsmoker Start:09-Jan-2017 Instruction Type:Patient Education How to access health informa tion online - Detail Indication:Nonsmoker Start:09-Jan-2017 Instruction Type:Patient Education Patient Instructions Indication:Nonsmoker Start:09-Jan-2017 Instruction Type:Provider Instructions for Treatment How to access health informa tion online Indication:Abnormal glucose tolerance test Start:02-Jan-2017 Instruction Type:Patient Education How to access health informa tion online - Detail Indication:Abnormal glucose tolerance test Start:02-Jan-2017 Instruction Type:Patient Education Patient Instructions Indication:Abnormal glucose tolerance test Start:02-Jan-2017 Instruction Type:Provider Instructions for Treatment How to access health informa tion online Indication:Cough Start:14-Mar-2016 Instruction Type:Patient Education How to access health informa tion online - Detail Indication:Cough Start:14-Mar-2016 Instruction Type:Patient Education Patient Instructions Indication:Cough Start:14-Mar-2016 Instruction Type:Provider Instructions for Treatment How to access health informa tion online Indication:Cough Start:31-Jan-2015 Instruction Type:Patient Education How to access health informa tion online - Detail Indication:Cough Start:31-Jan-2015 Instruction Type:Patient Education Patient Instructions Indication:Cough Start:31-Jan-2015 Instruction Type:Provider Instructions for Treatment [facility]; [facility] Work Phone: Instructions* Name Dates Details Patient Instructions Indication:BMI 25.0-25.9,adult Start:29-May-2022 Instruction Type:Provider Instructions for Treatment How to Access Health Informa tion Online using Patient Portal and [employer] Apps Indication:BMI 25.0-25.9,adult Start:29-May-2022 Instruction Type:Patient Education Patient Instructions Indication:Cough Start:05-May-2022 Instruction Type:Provider Instructions for Treatment How to Access Health Informa tion Online using Patient Portal and [employer] Apps Indication:Cough Start:05-May-2022 Instruction Type:Patient Education Patient Instructions Indication:Non-smoker Start:26-Mar-2022 Instruction Type:Provider Instructions for Treatment How to Access Health Informa tion Online using Patient Portal and [employer] Apps Indication:Non-smoker Start:26-Mar-2022 Instruction Type:Patient Education Patient Instructions Indication:BMI 25.0-25.9,adult Start:25-Mar-2022 Instruction Type:Provider Instructions for Treatment How to Access Health Informa tion Online using Patient Portal and [employer] Apps Indication:BMI 25.0-25.9,adult Start:25-Mar-2022 Instruction Type:Patient Education Patient Instructions Indication:Non-smoker Start:03-Feb-2022 Instruction Type:Provider Instructions for Treatment How to Access Health Informa tion Online using Patient Portal and [employer] Apps Indication:Non-smoker Start:03-Feb-2022 Instruction Type:Patient Education Patient Instructions Indication:BMI 25.0-25.9,adult Start:06-Jan-2022 Instruction Type:Provider Instructions for Treatment How to Access Health Informa tion Online using Patient Portal and [employer] Apps Indication:BMI 25.0-25.9,adult Start:06-Jan-2022 Instruction Type:Patient Education Patient Instructions Indication:BMI 25.0-25.9,adult Start:21-Oct-2021 Instruction Type:Provider Instructions for Treatment How to Access Health Informa tion Online using Patient Portal and [employer] Apps Indication:BMI 25.0-25.9,adult Start:21-Oct-2021 Instruction Type:Patient Education Patient Instructions Indication:BMI 27.0-27.9,adult Start:25-Sep-2021 Instruction Type:Provider Instructions for Treatment How to Access Health Informa tion Online using Patient Portal and [employer] Apps Indication:BMI 27.0-27.9,adult Start:25-Sep-2021 Instruction Type:Patient Education Patient Instructions Indication:BMI 27.0-27.9,adult Start:18-Sep-2021 Instruction Type:Provider Instructions for Treatment How to Access Health Informa tion Online using Patient Portal and [employer] Apps Indication:BMI 27.0-27.9,adult Start:18-Sep-2021 Instruction Type:Patient Education Patient Instructions Indication:Non-smoker Start:13-Sep-2021 Instruction Type:Provider Instructions for Treatment How to Access Health Informa tion Online using Patient Portal and [employer] Apps Indication:Non-smoker Start:13-Sep-2021 Instruction Type:Patient Education Patient Instructions Indication:BMI 27.0-27.9,adult Start:30-Jan-2021 Instruction Type:Provider Instructions for Treatment How to Access Health Informa tion Online using Patient Portal and [employer] Apps Indication:BMI 27.0-27.9,adult Start:30-Jan-2021 Instruction Type:Patient Education Patient Instructions Indication:Non-smoker Start:23-Oct-2020 Instruction Type:Provider Instructions for Treatment How to Access Health Informa tion Online using Patient Portal and [employer] Apps Indication:Non-smoker Start:23-Oct-2020 Instruction Type:Patient Education Patient Instructions Indication:BMI 27.0-27.9,adult Start:19-Oct-2020 Instruction Type:Provider Instructions for Treatment How to Access Health Informa tion Online using Patient Portal and [employer] Apps Indication:BMI 27.0-27.9,adult Start:19-Oct-2020 Instruction Type:Patient Education How to access health informa tion online Indication:BMI 27.0-27.9,adult Start:16-Jan-2020 Instruction Type:Patient Education How to access health informa tion online - Detail Indication:BMI 27.0-27.9,adult Start:16-Jan-2020 Instruction Type:Patient Education Patient Instructions Indication:BMI 27.0-27.9,adult Start:16-Jan-2020 Instruction Type:Provider Instructions for Treatment How to access health informa tion online Indication:Non-smoker Start:24-Oct-2019 Instruction Type:Patient Education How to access health informa tion online - Detail Indication:Non-smoker Start:24-Oct-2019 Instruction Type:Patient Education Patient Instructions Indication:BMI 27.0-27.9,adult Start:24-Oct-2019 Instruction Type:Provider Instructions for Treatment How to access health informa tion online Indication:Non-smoker Start:25-Aug-2019 Instruction Type:Patient Education How to access health informa tion online - Detail Indication:Non-smoker Start:25-Aug-2019 Instruction Type:Patient Education Patient Instructions Indication:Non-smoker Start:25-Aug-2019 Instruction Type:Provider Instructions for Treatment How to access health informa tion online Indication:Non-smoker Start:12-May-2019 Instruction Type:Patient Education How to access health informa tion online - Detail Indication:Non-smoker Start:12-May-2019 Instruction Type:Patient Education Patient Instructions Indication:Non-smoker Start:12-May-2019 Instruction Type:Provider Instructions for Treatment How to access health informa tion online Indication:Non-smoker Start:02-May-2019 Instruction Type:Patient Education How to access health informa tion online - Detail Indication:Non-smoker Start:02-May-2019 Instruction Type:Patient Education Patient Instructions Indication:Non-smoker Start:02-May-2019 Instruction Type:Provider Instructions for Treatment How to access health informa tion online Indication:BMI 26.0-26.9,adult Start:28-Apr-2019 Instruction Type:Patient Education How to access health informa tion online - Detail Indication:BMI 26.0-26.9,adult Start:28-Apr-2019 Instruction Type:Patient Education Patient Instructions Indication:BMI 26.0-26.9,adult Start:28-Apr-2019 Instruction Type:Provider Instructions for Treatment How to access health informa tion online Indication:Cough Start:26-Apr-2019 Instruction Type:Patient Education How to access health informa tion online - Detail Indication:Cough Start:26-Apr-2019 Instruction Type:Patient Education Patient Instructions Indication:Cough Start:26-Apr-2019 Instruction Type:Provider Instructions for Treatment How to access health informa tion online Indication:Nasal congestion Start:12-Apr-2019 Instruction Type:Patient Education How to access health informa tion online - Detail Indication:Nasal congestion Start:12-Apr-2019 Instruction Type:Patient Education Patient Instructions Indication:Nasal congestion Start:12-Apr-2019 Instruction Type:Provider Instructions for Treatment How to access health informa tion online Indication:Cough Start:08-Feb-2019 Instruction Type:Patient Education How to access health informa tion online - Detail Indication:Cough Start:08-Feb-2019 Instruction Type:Patient Education Patient Instructions Indication:Cough Start:08-Feb-2019 Instruction Type:Provider Instructions for Treatment How to access health informa tion online Indication:Nonsmoker Start:29-Jul-2018 Instruction Type:Patient Education How to access health informa tion online - Detail Indication:Nonsmoker Start:29-Jul-2018 Instruction Type:Patient Education Patient Instructions Indication:Nonsmoker Start:29-Jul-2018 Instruction Type:Provider Instructions for Treatment How to access health informa tion online Indication:BMI 25.0-25.9,adult Start:26-Mar-2017 Instruction Type:Patient Education How to access health informa tion online - Detail Indication:BMI 25.0-25.9,adult Start:26-Mar-2017 Instruction Type:Patient Education Patient Instructions Indication:Chronic obstructive asthma with acute exacerbation (Renamed from Chronic obstructive asthma with exacerbation) Start:26-Mar-2017 Instruction Type:Provider Instructions for Treatment How to access health informa tion online Indication:Nonsmoker Start:09-Jan-2017 Instruction Type:Patient Education How to access health informa tion online - Detail Indication:Nonsmoker Start:09-Jan-2017 Instruction Type:Patient Education Patient Instructions Indication:Nonsmoker Start:09-Jan-2017 Instruction Type:Provider Instructions for Treatment How to access health informa tion online Indication:Abnormal glucose tolerance test Start:02-Jan-2017 Instruction Type:Patient Education How to access health informa tion online - Detail Indication:Abnormal glucose tolerance test Start:02-Jan-2017 Instruction Type:Patient Education Patient Instructions Indication:Abnormal glucose tolerance test Start:02-Jan-2017 Instruction Type:Provider Instructions for Treatment How to access health informa tion online Indication:Cough Start:14-Mar-2016 Instruction Type:Patient Education How to access health informa tion online - Detail Indication:Cough Start:14-Mar-2016 Instruction Type:Patient Education Patient Instructions Indication:Cough Start:14-Mar-2016 Instruction Type:Provider Instructions for Treatment How to access health informa tion online Indication:Cough Start:31-Jan-2015 Instruction Type:Patient Education How to access health informa tion online - Detail Indication:Cough Start:31-Jan-2015 Instruction Type:Patient Education Patient Instructions Indication:Cough Start:31-Jan-2015 Instruction Type:Provider Instructions for Treatment [facility]; [facility] Work Phone: Instructions* Name Dates Details Patient Instructions Indication:BMI 25.0-25.9,adult Start:29-May-2022 Instruction Type:Provider Instructions for Treatment How to Access Health Informa tion Online using Patient Portal and [employer] Apps Indication:BMI 25.0-25.9,adult Start:29-May-2022 Instruction Type:Patient Education Patient Instructions Indication:Cough Start:05-May-2022 Instruction Type:Provider Instructions for Treatment How to Access Health Informa tion Online using Patient Portal and [employer] Apps Indication:Cough Start:05-May-2022 Instruction Type:Patient Education Patient Instructions Indication:Non-smoker Start:26-Mar-2022 Instruction Type:Provider Instructions for Treatment How to Access Health Informa tion Online using Patient Portal and [employer] Apps Indication:Non-smoker Start:26-Mar-2022 Instruction Type:Patient Education Patient Instructions Indication:BMI 25.0-25.9,adult Start:25-Mar-2022 Instruction Type:Provider Instructions for Treatment How to Access Health Informa tion Online using Patient Portal and [employer] Indication:BMI 25.0-25.9,adult Start:25-Mar-2022 Instruction Type:Patient Education Patient Instructions Indication:Non-smoker Start:03-Feb-2022 Instruction Type:Provider Instructions for Treatment How to Access Health Informa tion Online using Patient Portal and [employer] Indication:Non-smoker Start:03-Feb-2022 Instruction Type:Patient Education Patient Instructions Indication:BMI 25.0-25.9,adult Start:06-Jan-2022 Instruction Type:Provider Instructions for Treatment How to Access Health Informa tion Online using Patient Portal and [employer] Indication:BMI 25.0-25.9,adult Start:06-Jan-2022 Instruction Type:Patient Education Patient Instructions Indication:BMI 25.0-25.9,adult Start:21-Oct-2021 Instruction Type:Provider Instructions for Treatment How to Access Health Informa tion Online using Patient Portal and [employer] Apps Indication:BMI 25.0-25.9,adult Start:21-Oct-2021 Instruction Type:Patient Education Patient Instructions Indication:BMI 27.0-27.9,adult Start:25-Sep-2021 Instruction Type:Provider Instructions for Treatment How to Access Health Informa tion Online using Patient Portal and [employer] Apps Indication:BMI 27.0-27.9,adult Start:25-Sep-2021 Instruction Type:Patient Education Patient Instructions Indication:BMI 27.0-27.9,adult Start:18-Sep-2021 Instruction Type:Provider Instructions for Treatment How to Access Health Informa tion Online using Patient Portal and [employer] Apps Indication:BMI 27.0-27.9,adult Start:18-Sep-2021 Instruction Type:Patient Education Patient Instructions Indication:Non-smoker Start:13-Sep-2021 Instruction Type:Provider Instructions for Treatment How to Access Health Informa tion Online using Patient Portal and [employer] Apps Indication:Non-smoker Start:13-Sep-2021 Instruction Type:Patient Education Patient Instructions Indication:BMI 27.0-27.9,adult Start:30-Jan-2021 Instruction Type:Provider Instructions for Treatment How to Access Health Informa tion Online using Patient Portal and [employer] Apps Indication:BMI 27.0-27.9,adult Start:30-Jan-2021 Instruction Type:Patient Education Patient Instructions Indication:Non-smoker Start:23-Oct-2020 Instruction Type:Provider Instructions for Treatment How to Access Health Informa tion Online using Patient Portal and [employer] Apps Indication:Non-smoker Start:23-Oct-2020 Instruction Type:Patient Education Patient Instructions Indication:BMI 27.0-27.9,adult Start:19-Oct-2020 Instruction Type:Provider Instructions for Treatment How to Access Health Informa tion Online using Patient Portal and [employer] Apps Indication:BMI 27.0-27.9,adult Start:19-Oct-2020 Instruction Type:Patient Education How to access health informa tion online Indication:BMI 27.0-27.9,adult Start:16-Jan-2020 Instruction Type:Patient Education How to access health informa tion online - Detail Indication:BMI 27.0-27.9,adult Start:16-Jan-2020 Instruction Type:Patient Education Patient Instructions Indication:BMI 27.0-27.9,adult Start:16-Jan-2020 Instruction Type:Provider Instructions for Treatment How to access health informa tion online Indication:Non-smoker Start:24-Oct-2019 Instruction Type:Patient Education How to access health informa tion online - Detail Indication:Non-smoker Start:24-Oct-2019 Instruction Type:Patient Education Patient Instructions Indication:BMI 27.0-27.9,adult Start:24-Oct-2019 Instruction Type:Provider Instructions for Treatment How to access health informa tion online Indication:Non-smoker Start:25-Aug-2019 Instruction Type:Patient Education How to access health informa tion online - Detail Indication:Non-smoker Start:25-Aug-2019 Instruction Type:Patient Education Patient Instructions Indication:Non-smoker Start:25-Aug-2019 Instruction Type:Provider Instructions for Treatment How to access health informa tion online Indication:Non-smoker Start:12-May-2019 Instruction Type:Patient Education How to access health informa tion online - Detail Indication:Non-smoker Start:12-May-2019 Instruction Type:Patient Education Patient Instructions Indication:Non-smoker Start:12-May-2019 Instruction Type:Provider Instructions for Treatment How to access health informa tion online Indication:Non-smoker Start:02-May-2019 Instruction Type:Patient Education How to access health informa tion online - Detail Indication:Non-smoker Start:02-May-2019 Instruction Type:Patient Education Patient Instructions Indication:Non-smoker Start:02-May-2019 Instruction Type:Provider Instructions for Treatment How to access health informa tion online Indication:BMI 26.0-26.9,adult Start:28-Apr-2019 Instruction Type:Patient Education How to access health informa tion online - Detail Indication:BMI 26.0-26.9,adult Start:28-Apr-2019 Instruction Type:Patient Education Patient Instructions Indication:BMI 26.0-26.9,adult Start:28-Apr-2019 Instruction Type:Provider Instructions for Treatment How to access health informa tion online Indication:Cough Start:26-Apr-2019 Instruction Type:Patient Education How to access health informa tion online - Detail Indication:Cough Start:26-Apr-2019 Instruction Type:Patient Education Patient Instructions Indication:Cough Start:26-Apr-2019 Instruction Type:Provider Instructions for Treatment How to access health informa tion online Indication:Nasal congestion Start:12-Apr-2019 Instruction Type:Patient Education How to access health informa tion online - Detail Indication:Nasal congestion Start:12-Apr-2019 Instruction Type:Patient Education Patient Instructions Indication:Nasal congestion Start:12-Apr-2019 Instruction Type:Provider Instructions for Treatment How to access health informa tion online Indication:Cough Start:08-Feb-2019 Instruction Type:Patient Education How to access health informa tion online - Detail Indication:Cough Start:08-Feb-2019 Instruction Type:Patient Education Patient Instructions Indication:Cough Start:08-Feb-2019 Instruction Type:Provider Instructions for Treatment How to access health informa tion online Indication:Nonsmoker Start:29-Jul-2018 Instruction Type:Patient Education How to access health informa tion online - Detail Indication:Nonsmoker Start:29-Jul-2018 Instruction Type:Patient Education Patient Instructions Indication:Nonsmoker Start:29-Jul-2018 Instruction Type:Provider Instructions for Treatment How to access health informa tion online Indication:BMI 25.0-25.9,adult Start:26-Mar-2017 Instruction Type:Patient Education How to access health informa tion online - Detail Indication:BMI 25.0-25.9,adult Start:26-Mar-2017 Instruction Type:Patient Education Patient Instructions Indication:Chronic obstructive asthma with acute exacerbation (Renamed from Chronic obstructive asthma with exacerbation) Start:26-Mar-2017 Instruction Type:Provider Instructions for Treatment How to access health informa tion online Indication:Nonsmoker Start:09-Jan-2017 Instruction Type:Patient Education How to access health informa tion online - Detail Indication:Nonsmoker Start:09-Jan-2017 Instruction Type:Patient Education Patient Instructions Indication:Nonsmoker Start:09-Jan-2017 Instruction Type:Provider Instructions for Treatment How to access health informa tion online Indication:Abnormal glucose tolerance test Start:02-Jan-2017 Instruction Type:Patient Education How to access health informa tion online - Detail Indication:Abnormal glucose tolerance test Start:02-Jan-2017 Instruction Type:Patient Education Patient Instructions Indication:Abnormal glucose tolerance test Start:02-Jan-2017 Instruction Type:Provider Instructions for Treatment How to access health informa tion online Indication:Cough Start:14-Mar-2016 Instruction Type:Patient Education How to access health informa tion online - Detail Indication:Cough Start:14-Mar-2016 Instruction Type:Patient Education Patient Instructions Indication:Cough Start:14-Mar-2016 Instruction Type:Provider Instructions for Treatment How to access health informa tion online Indication:Cough Start:31-Jan-2015 Instruction Type:Patient Education How to access health informa tion online - Detail Indication:Cough Start:31-Jan-2015 Instruction Type:Patient Education Patient Instructions Indication:Cough Start:31-Jan-2015 Instruction Type:Provider Instructions for Treatment [facility]; [facility] Work Phone: Instructions* Name Dates Details Patient Instructions Indication:Non-smoker Start:13-Oct-2022 Instruction Type:Provider Instructions for Treatment How to Access Health Informa tion Online using Patient Portal and [employer] Apps Indication:Non-smoker Start:13-Oct-2022 Instruction Type:Patient Education Patient Instructions Indication:BMI 25.0-25.9,adult Start:29-May-2022 Instruction Type:Provider Instructions for Treatment How to Access Health Informa tion Online using Patient Portal and [employer] Apps Indication:BMI 25.0-25.9,adult Start:29-May-2022 Instruction Type:Patient Education Patient Instructions Indication:Cough Start:05-May-2022 Instruction Type:Provider Instructions for Treatment How to Access Health Informa tion Online using Patient Portal and [employer] Apps Indication:Cough Start:05-May-2022 Instruction Type:Patient Education Patient Instructions Indication:Non-smoker Start:26-Mar-2022 Instruction Type:Provider Instructions for Treatment How to Access Health Informa tion Online using Patient Portal and [employer] Apps Indication:Non-smoker Start:26-Mar-2022 Instruction Type:Patient Education Patient Instructions Indication:BMI 25.0-25.9,adult Start:25-Mar-2022 Instruction Type:Provider Instructions for Treatment How to Access Health Informa tion Online using Patient Portal and [employer] Apps Indication:BMI 25.0-25.9,adult Start:25-Mar-2022 Instruction Type:Patient Education Patient Instructions Indication:Non-smoker Start:03-Feb-2022 Instruction Type:Provider Instructions for Treatment How to Access Health Informa tion Online using Patient Portal and [employer] Apps Indication:Non-smoker Start:03-Feb-2022 Instruction Type:Patient Education Patient Instructions Indication:BMI 25.0-25.9,adult Start:06-Jan-2022 Instruction Type:Provider Instructions for Treatment How to Access Health Informa tion Online using Patient Portal and [employer] Apps Indication:BMI 25.0-25.9,adult Start:06-Jan-2022 Instruction Type:Patient Education Patient Instructions Indication:BMI 25.0-25.9,adult Start:21-Oct-2021 Instruction Type:Provider Instructions for Treatment How to Access Health Informa tion Online using Patient Portal and [employer] Apps Indication:BMI 25.0-25.9,adult Start:21-Oct-2021 Instruction Type:Patient Education Patient Instructions Indication:BMI 27.0-27.9,adult Start:25-Sep-2021 Instruction Type:Provider Instructions for Treatment How to Access Health Informa tion Online using Patient Portal and [employer] Apps Indication:BMI 27.0-27.9,adult Start:25-Sep-2021 Instruction Type:Patient Education Patient Instructions Indication:BMI 27.0-27.9,adult Start:18-Sep-2021 Instruction Type:Provider Instructions for Treatment How to Access Health Informa tion Online using Patient Portal and [employer] Apps Indication:BMI 27.0-27.9,adult Start:18-Sep-2021 Instruction Type:Patient Education Patient Instructions Indication:Non-smoker Start:13-Sep-2021 Instruction Type:Provider Instructions for Treatment How to Access Health Informa tion Online using Patient Portal and [employer] Apps Indication:Non-smoker Start:13-Sep-2021 Instruction Type:Patient Education Patient Instructions Indication:BMI 27.0-27.9,adult Start:30-Jan-2021 Instruction Type:Provider Instructions for Treatment How to Access Health Informa tion Online using Patient Portal and [employer] Apps Indication:BMI 27.0-27.9,adult Start:30-Jan-2021 Instruction Type:Patient Education Patient Instructions Indication:Non-smoker Start:23-Oct-2020 Instruction Type:Provider Instructions for Treatment How to Access Health Informa tion Online using Patient Portal and [employer] Apps Indication:Non-smoker Start:23-Oct-2020 Instruction Type:Patient Education Patient Instructions Indication:BMI 27.0-27.9,adult Start:19-Oct-2020 Instruction Type:Provider Instructions for Treatment How to Access Health Informa tion Online using Patient Portal and [employer] Apps Indication:BMI 27.0-27.9,adult Start:19-Oct-2020 Instruction Type:Patient Education How to access health informa tion online Indication:BMI 27.0-27.9,adult Start:16-Jan-2020 Instruction Type:Patient Education How to access health informa tion online - Detail Indication:BMI 27.0-27.9,adult Start:16-Jan-2020 Instruction Type:Patient Education Patient Instructions Indication:BMI 27.0-27.9,adult Start:16-Jan-2020 Instruction Type:Provider Instructions for Treatment How to access health informa tion online Indication:Non-smoker Start:24-Oct-2019 Instruction Type:Patient Education How to access health informa tion online - Detail Indication:Non-smoker Start:24-Oct-2019 Instruction Type:Patient Education Patient Instructions Indication:BMI 27.0-27.9,adult Start:24-Oct-2019 Instruction Type:Provider Instructions for Treatment How to access health informa tion online Indication:Non-smoker Start:25-Aug-2019 Instruction Type:Patient Education How to access health informa tion online - Detail Indication:Non-smoker Start:25-Aug-2019 Instruction Type:Patient Education Patient Instructions Indication:Non-smoker Start:25-Aug-2019 Instruction Type:Provider Instructions for Treatment How to access health informa tion online Indication:Non-smoker Start:12-May-2019 Instruction Type:Patient Education How to access health informa tion online - Detail Indication:Non-smoker Start:12-May-2019 Instruction Type:Patient Education Patient Instructions Indication:Non-smoker Start:12-May-2019 Instruction Type:Provider Instructions for Treatment How to access health informa tion online Indication:Non-smoker Start:02-May-2019 Instruction Type:Patient Education How to access health informa tion online - Detail Indication:Non-smoker Start:02-May-2019 Instruction Type:Patient Education Patient Instructions Indication:Non-smoker Start:02-May-2019 Instruction Type:Provider Instructions for Treatment How to access health informa tion online Indication:BMI 26.0-26.9,adult Start:28-Apr-2019 Instruction Type:Patient Education How to access health informa tion online - Detail Indication:BMI 26.0-26.9,adult Start:28-Apr-2019 Instruction Type:Patient Education Patient Instructions Indication:BMI 26.0-26.9,adult Start:28-Apr-2019 Instruction Type:Provider Instructions for Treatment How to access health informa tion online Indication:Cough Start:26-Apr-2019 Instruction Type:Patient Education How to access health informa tion online - Detail Indication:Cough Start:26-Apr-2019 Instruction Type:Patient Education Patient Instructions Indication:Cough Start:26-Apr-2019 Instruction Type:Provider Instructions for Treatment How to access health informa tion online Indication:Nasal congestion Start:12-Apr-2019 Instruction Type:Patient Education How to access health informa tion online - Detail Indication:Nasal congestion Start:12-Apr-2019 Instruction Type:Patient Education Patient Instructions Indication:Nasal congestion Start:12-Apr-2019 Instruction Type:Provider Instructions for Treatment How to access health informa tion online Indication:Cough Start:08-Feb-2019 Instruction Type:Patient Education How to access health informa tion online - Detail Indication:Cough Start:08-Feb-2019 Instruction Type:Patient Education Patient Instructions Indication:Cough Start:08-Feb-2019 Instruction Type:Provider Instructions for Treatment How to access health informa tion online Indication:Nonsmoker Start:29-Jul-2018 Instruction Type:Patient Education How to access health informa tion online - Detail Indication:Nonsmoker Start:29-Jul-2018 Instruction Type:Patient Education Patient Instructions Indication:Nonsmoker Start:29-Jul-2018 Instruction Type:Provider Instructions for Treatment How to access health informa tion online Indication:BMI 25.0-25.9,adult Start:26-Mar-2017 Instruction Type:Patient Education How to access health informa tion online - Detail Indication:BMI 25.0-25.9,adult Start:26-Mar-2017 Instruction Type:Patient Education Patient Instructions Indication:Chronic obstructive asthma with acute exacerbation (Renamed from Chronic obstructive asthma with exacerbation) Start:26-Mar-2017 Instruction Type:Provider Instructions for Treatment How to access health informa tion online Indication:Nonsmoker Start:09-Jan-2017 Instruction Type:Patient Education How to access health informa tion online - Detail Indication:Nonsmoker Start:09-Jan-2017 Instruction Type:Patient Education Patient Instructions Indication:Nonsmoker Start:09-Jan-2017 Instruction Type:Provider Instructions for Treatment How to access health informa tion online Indication:Abnormal glucose tolerance test Start:02-Jan-2017 Instruction Type:Patient Education How to access health informa tion online - Detail Indication:Abnormal glucose tolerance test Start:02-Jan-2017 Instruction Type:Patient Education Patient Instructions Indication:Abnormal glucose tolerance test Start:02-Jan-2017 Instruction Type:Provider Instructions for Treatment How to access health informa tion online Indication:Cough Start:14-Mar-2016 Instruction Type:Patient Education How to access health informa tion online - Detail Indication:Cough Start:14-Mar-2016 Instruction Type:Patient Education Patient Instructions Indication:Cough Start:14-Mar-2016 Instruction Type:Provider Instructions for Treatment How to access health informa tion online Indication:Cough Start:31-Jan-2015 Instruction Type:Patient Education How to access health informa tion online - Detail Indication:Cough Start:31-Jan-2015 Instruction Type:Patient Education Patient Instructions Indication:Cough Start:31-Jan-2015 Instruction Type:Provider Instructions for Treatment [facility]; [facility] Work Phone: Instructions* Name Dates Details Patient Instructions Indication:Non-smoker Start:13-Oct-2022 Instruction Type:Provider Instructions for Treatment How to Access Health Informa tion Online using Patient Portal and [employer] Apps Indication:Non-smoker Start:13-Oct-2022 Instruction Type:Patient Education Patient Instructions Indication:BMI 25.0-25.9,adult Start:29-May-2022 Instruction Type:Provider Instructions for Treatment How to Access Health Informa tion Online using Patient Portal and [employer] Apps Indication:BMI 25.0-25.9,adult Start:29-May-2022 Instruction Type:Patient Education Patient Instructions Indication:Cough Start:05-May-2022 Instruction Type:Provider Instructions for Treatment How to Access Health Informa tion Online using Patient Portal and [employer] Apps Indication:Cough Start:05-May-2022 Instruction Type:Patient Education Patient Instructions Indication:Non-smoker Start:26-Mar-2022 Instruction Type:Provider Instructions for Treatment How to Access Health Informa tion Online using Patient Portal and [employer] Apps Indication:Non-smoker Start:26-Mar-2022 Instruction Type:Patient Education Patient Instructions Indication:BMI 25.0-25.9,adult Start:25-Mar-2022 Instruction Type:Provider Instructions for Treatment How to Access Health Informa tion Online using Patient Portal and [employer] Apps Indication:BMI 25.0-25.9,adult Start:25-Mar-2022 Instruction Type:Patient Education Patient Instructions Indication:Non-smoker Start:03-Feb-2022 Instruction Type:Provider Instructions for Treatment How to Access Health Informa tion Online using Patient Portal and [employer] Apps Indication:Non-smoker Start:03-Feb-2022 Instruction Type:Patient Education Patient Instructions Indication:BMI 25.0-25.9,adult Start:06-Jan-2022 Instruction Type:Provider Instructions for Treatment How to Access Health Informa tion Online using Patient Portal and [employer] Apps Indication:BMI 25.0-25.9,adult Start:06-Jan-2022 Instruction Type:Patient Education Patient Instructions Indication:BMI 25.0-25.9,adult Start:21-Oct-2021 Instruction Type:Provider Instructions for Treatment How to Access Health Informa tion Online using Patient Portal and [employer] Apps Indication:BMI 25.0-25.9,adult Start:21-Oct-2021 Instruction Type:Patient Education Patient Instructions Indication:BMI 27.0-27.9,adult Start:25-Sep-2021 Instruction Type:Provider Instructions for Treatment How to Access Health Informa tion Online using Patient Portal and [employer] Apps Indication:BMI 27.0-27.9,adult Start:25-Sep-2021 Instruction Type:Patient Education Patient Instructions Indication:BMI 27.0-27.9,adult Start:18-Sep-2021 Instruction Type:Provider Instructions for Treatment How to Access Health Informa tion Online using Patient Portal and [employer] Apps Indication:BMI 27.0-27.9,adult Start:18-Sep-2021 Instruction Type:Patient Education Patient Instructions Indication:Non-smoker Start:13-Sep-2021 Instruction Type:Provider Instructions for Treatment How to Access Health Informa tion Online using Patient Portal and [employer] Apps Indication:Non-smoker Start:13-Sep-2021 Instruction Type:Patient Education Patient Instructions Indication:BMI 27.0-27.9,adult Start:30-Jan-2021 Instruction Type:Provider Instructions for Treatment How to Access Health Informa tion Online using Patient Portal and [employer] Apps Indication:BMI 27.0-27.9,adult Start:30-Jan-2021 Instruction Type:Patient Education Patient Instructions Indication:Non-smoker Start:23-Oct-2020 Instruction Type:Provider Instructions for Treatment How to Access Health Informa tion Online using Patient Portal and [employer] Apps Indication:Non-smoker Start:23-Oct-2020 Instruction Type:Patient Education Patient Instructions Indication:BMI 27.0-27.9,adult Start:19-Oct-2020 Instruction Type:Provider Instructions for Treatment How to Access Health Informa tion Online using Patient Portal and [employer] Apps Indication:BMI 27.0-27.9,adult Start:19-Oct-2020 Instruction Type:Patient Education How to access health informa tion online Indication:BMI 27.0-27.9,adult Start:16-Jan-2020 Instruction Type:Patient Education How to access health informa tion online - Detail Indication:BMI 27.0-27.9,adult Start:16-Jan-2020 Instruction Type:Patient Education Patient Instructions Indication:BMI 27.0-27.9,adult Start:16-Jan-2020 Instruction Type:Provider Instructions for Treatment How to access health informa tion online Indication:Non-smoker Start:24-Oct-2019 Instruction Type:Patient Education How to access health informa tion online - Detail Indication:Non-smoker Start:24-Oct-2019 Instruction Type:Patient Education Patient Instructions Indication:BMI 27.0-27.9,adult Start:24-Oct-2019 Instruction Type:Provider Instructions for Treatment How to access health informa tion online Indication:Non-smoker Start:25-Aug-2019 Instruction Type:Patient Education How to access health informa tion online - Detail Indication:Non-smoker Start:25-Aug-2019 Instruction Type:Patient Education Patient Instructions Indication:Non-smoker Start:25-Aug-2019 Instruction Type:Provider Instructions for Treatment How to access health informa tion online Indication:Non-smoker Start:12-May-2019 Instruction Type:Patient Education How to access health informa tion online - Detail Indication:Non-smoker Start:12-May-2019 Instruction Type:Patient Education Patient Instructions Indication:Non-smoker Start:12-May-2019 Instruction Type:Provider Instructions for Treatment How to access health informa tion online Indication:Non-smoker Start:02-May-2019 Instruction Type:Patient Education How to access health informa tion online - Detail Indication:Non-smoker Start:02-May-2019 Instruction Type:Patient Education Patient Instructions Indication:Non-smoker Start:02-May-2019 Instruction Type:Provider Instructions for Treatment How to access health informa tion online Indication:BMI 26.0-26.9,adult Start:28-Apr-2019 Instruction Type:Patient Education How to access health informa tion online - Detail Indication:BMI 26.0-26.9,adult Start:28-Apr-2019 Instruction Type:Patient Education Patient Instructions Indication:BMI 26.0-26.9,adult Start:28-Apr-2019 Instruction Type:Provider Instructions for Treatment How to access health informa tion online Indication:Cough Start:26-Apr-2019 Instruction Type:Patient Education How to access health informa tion online - Detail Indication:Cough Start:26-Apr-2019 Instruction Type:Patient Education Patient Instructions Indication:Cough Start:26-Apr-2019 Instruction Type:Provider Instructions for Treatment How to access health informa tion online Indication:Nasal congestion Start:12-Apr-2019 Instruction Type:Patient Education How to access health informa tion online - Detail Indication:Nasal congestion Start:12-Apr-2019 Instruction Type:Patient Education Patient Instructions Indication:Nasal congestion Start:12-Apr-2019 Instruction Type:Provider Instructions for Treatment How to access health informa tion online Indication:Cough Start:08-Feb-2019 Instruction Type:Patient Education How to access health informa tion online - Detail Indication:Cough Start:08-Feb-2019 Instruction Type:Patient Education Patient Instructions Indication:Cough Start:08-Feb-2019 Instruction Type:Provider Instructions for Treatment How to access health informa tion online Indication:Nonsmoker Start:29-Jul-2018 Instruction Type:Patient Education How to access health informa tion online - Detail Indication:Nonsmoker Start:29-Jul-2018 Instruction Type:Patient Education Patient Instructions Indication:Nonsmoker Start:29-Jul-2018 Instruction Type:Provider Instructions for Treatment How to access health informa tion online Indication:BMI 25.0-25.9,adult Start:26-Mar-2017 Instruction Type:Patient Education How to access health informa tion online - Detail Indication:BMI 25.0-25.9,adult Start:26-Mar-2017 Instruction Type:Patient Education Patient Instructions Indication:Chronic obstructive asthma with acute exacerbation (Renamed from Chronic obstructive asthma with exacerbation) Start:26-Mar-2017 Instruction Type:Provider Instructions for Treatment How to access health informa tion online Indication:Nonsmoker Start:09-Jan-2017 Instruction Type:Patient Education How to access health informa tion online - Detail Indication:Nonsmoker Start:09-Jan-2017 Instruction Type:Patient Education Patient Instructions Indication:Nonsmoker Start:09-Jan-2017 Instruction Type:Provider Instructions for Treatment How to access health informa tion online Indication:Abnormal glucose tolerance test Start:02-Jan-2017 Instruction Type:Patient Education How to access health informa tion online - Detail Indication:Abnormal glucose tolerance test Start:02-Jan-2017 Instruction Type:Patient Education Patient Instructions Indication:Abnormal glucose tolerance test Start:02-Jan-2017 Instruction Type:Provider Instructions for Treatment How to access health informa tion online Indication:Cough Start:14-Mar-2016 Instruction Type:Patient Education How to access health informa tion online - Detail Indication:Cough Start:14-Mar-2016 Instruction Type:Patient Education Patient Instructions Indication:Cough Start:14-Mar-2016 Instruction Type:Provider Instructions for Treatment How to access health informa tion online Indication:Cough Start:31-Jan-2015 Instruction Type:Patient Education How to access health informa tion online - Detail Indication:Cough Start:31-Jan-2015 Instruction Type:Patient Education Patient Instructions Indication:Cough Start:31-Jan-2015 Instruction Type:Provider Instructions for Treatment [facility]; [facility] Work Phone: Instructions* Name Dates Details How to Access Health Informa tion Online using Patient Portal and [employer] Apps Indication:Non-smoker Start:12-Nov-2022 Instruction Type:Patient Education Patient Instructions Indication:Non-smoker Start:12-Nov-2022 Instruction Type:Provider Instructions for Treatment Patient Instructions Indication:Non-smoker Start:13-Oct-2022 Instruction Type:Provider Instructions for Treatment How to Access Health Informa tion Online using Patient Portal and [employer] Apps Indication:Non-smoker Start:13-Oct-2022 Instruction Type:Patient Education Patient Instructions Indication:BMI 25.0-25.9,adult Start:29-May-2022 Instruction Type:Provider Instructions for Treatment How to Access Health Informa tion Online using Patient Portal and [employer] Apps Indication:BMI 25.0-25.9,adult Start:29-May-2022 Instruction Type:Patient Education Patient Instructions Indication:Cough Start:05-May-2022 Instruction Type:Provider Instructions for Treatment How to Access Health Informa tion Online using Patient Portal and [employer] Apps Indication:Cough Start:05-May-2022 Instruction Type:Patient Education Patient Instructions Indication:Non-smoker Start:26-Mar-2022 Instruction Type:Provider Instructions for Treatment How to Access Health Informa tion Online using Patient Portal and [employer] Apps Indication:Non-smoker Start:26-Mar-2022 Instruction Type:Patient Education Patient Instructions Indication:BMI 25.0-25.9,adult Start:25-Mar-2022 Instruction Type:Provider Instructions for Treatment How to Access Health Informa tion Online using Patient Portal and [employer] Apps Indication:BMI 25.0-25.9,adult Start:25-Mar-2022 Instruction Type:Patient Education Patient Instructions Indication:Non-smoker Start:03-Feb-2022 Instruction Type:Provider Instructions for Treatment How to Access Health Informa tion Online using Patient Portal and [employer] Apps Indication:Non-smoker Start:03-Feb-2022 Instruction Type:Patient Education Patient Instructions Indication:BMI 25.0-25.9,adult Start:06-Jan-2022 Instruction Type:Provider Instructions for Treatment How to Access Health Informa tion Online using Patient Portal and [employer] Apps Indication:BMI 25.0-25.9,adult Start:06-Jan-2022 Instruction Type:Patient Education Patient Instructions Indication:BMI 25.0-25.9,adult Start:21-Oct-2021 Instruction Type:Provider Instructions for Treatment How to Access Health Informa tion Online using Patient Portal and [employer] Apps Indication:BMI 25.0-25.9,adult Start:21-Oct-2021 Instruction Type:Patient Education Patient Instructions Indication:BMI 27.0-27.9,adult Start:25-Sep-2021 Instruction Type:Provider Instructions for Treatment How to Access Health Informa tion Online using Patient Portal and [employer] Apps Indication:BMI 27.0-27.9,adult Start:25-Sep-2021 Instruction Type:Patient Education Patient Instructions Indication:BMI 27.0-27.9,adult Start:18-Sep-2021 Instruction Type:Provider Instructions for Treatment How to Access Health Informa tion Online using Patient Portal and [employer] Apps Indication:BMI 27.0-27.9,adult Start:18-Sep-2021 Instruction Type:Patient Education Patient Instructions Indication:Non-smoker Start:13-Sep-2021 Instruction Type:Provider Instructions for Treatment How to Access Health Informa tion Online using Patient Portal and [employer] Apps Indication:Non-smoker Start:13-Sep-2021 Instruction Type:Patient Education Patient Instructions Indication:BMI 27.0-27.9,adult Start:30-Jan-2021 Instruction Type:Provider Instructions for Treatment How to Access Health Informa tion Online using Patient Portal and [employer] Apps Indication:BMI 27.0-27.9,adult Start:30-Jan-2021 Instruction Type:Patient Education Patient Instructions Indication:Non-smoker Start:23-Oct-2020 Instruction Type:Provider Instructions for Treatment How to Access Health Informa tion Online using Patient Portal and [employer] Apps Indication:Non-smoker Start:23-Oct-2020 Instruction Type:Patient Education Patient Instructions Indication:BMI 27.0-27.9,adult Start:19-Oct-2020 Instruction Type:Provider Instructions for Treatment How to Access Health Informa tion Online using Patient Portal and [employer] Apps Indication:BMI 27.0-27.9,adult Start:19-Oct-2020 Instruction Type:Patient Education How to access health informa tion online Indication:BMI 27.0-27.9,adult Start:16-Jan-2020 Instruction Type:Patient Education How to access health informa tion online - Detail Indication:BMI 27.0-27.9,adult Start:16-Jan-2020 Instruction Type:Patient Education Patient Instructions Indication:BMI 27.0-27.9,adult Start:16-Jan-2020 Instruction Type:Provider Instructions for Treatment How to access health informa tion online Indication:Non-smoker Start:24-Oct-2019 Instruction Type:Patient Education How to access health informa tion online - Detail Indication:Non-smoker Start:24-Oct-2019 Instruction Type:Patient Education Patient Instructions Indication:BMI 27.0-27.9,adult Start:24-Oct-2019 Instruction Type:Provider Instructions for Treatment How to access health informa tion online Indication:Non-smoker Start:25-Aug-2019 Instruction Type:Patient Education How to access health informa tion online - Detail Indication:Non-smoker Start:25-Aug-2019 Instruction Type:Patient Education Patient Instructions Indication:Non-smoker Start:25-Aug-2019 Instruction Type:Provider Instructions for Treatment How to access health informa tion online Indication:Non-smoker Start:12-May-2019 Instruction Type:Patient Education How to access health informa tion online - Detail Indication:Non-smoker Start:12-May-2019 Instruction Type:Patient Education Patient Instructions Indication:Non-smoker Start:12-May-2019 Instruction Type:Provider Instructions for Treatment How to access health informa tion online Indication:Non-smoker Start:02-May-2019 Instruction Type:Patient Education How to access health informa tion online - Detail Indication:Non-smoker Start:02-May-2019 Instruction Type:Patient Education Patient Instructions Indication:Non-smoker Start:02-May-2019 Instruction Type:Provider Instructions for Treatment How to access health informa tion online Indication:BMI 26.0-26.9,adult Start:28-Apr-2019 Instruction Type:Patient Education How to access health informa tion online - Detail Indication:BMI 26.0-26.9,adult Start:28-Apr-2019 Instruction Type:Patient Education Patient Instructions Indication:BMI 26.0-26.9,adult Start:28-Apr-2019 Instruction Type:Provider Instructions for Treatment How to access health informa tion online Indication:Cough Start:26-Apr-2019 Instruction Type:Patient Education How to access health informa tion online - Detail Indication:Cough Start:26-Apr-2019 Instruction Type:Patient Education Patient Instructions Indication:Cough Start:26-Apr-2019 Instruction Type:Provider Instructions for Treatment How to access health informa tion online Indication:Nasal congestion Start:12-Apr-2019 Instruction Type:Patient Education How to access health informa tion online - Detail Indication:Nasal congestion Start:12-Apr-2019 Instruction Type:Patient Education Patient Instructions Indication:Nasal congestion Start:12-Apr-2019 Instruction Type:Provider Instructions for Treatment How to access health informa tion online Indication:Cough Start:08-Feb-2019 Instruction Type:Patient Education How to access health informa tion online - Detail Indication:Cough Start:08-Feb-2019 Instruction Type:Patient Education Patient Instructions Indication:Cough Start:08-Feb-2019 Instruction Type:Provider Instructions for Treatment How to access health informa tion online Indication:Nonsmoker Start:29-Jul-2018 Instruction Type:Patient Education How to access health informa tion online - Detail Indication:Nonsmoker Start:29-Jul-2018 Instruction Type:Patient Education Patient Instructions Indication:Nonsmoker Start:29-Jul-2018 Instruction Type:Provider Instructions for Treatment How to access health informa tion online Indication:BMI 25.0-25.9,adult Start:26-Mar-2017 Instruction Type:Patient Education How to access health informa tion online - Detail Indication:BMI 25.0-25.9,adult Start:26-Mar-2017 Instruction Type:Patient Education Patient Instructions Indication:Chronic obstructive asthma with acute exacerbation (Renamed from Chronic obstructive asthma with exacerbation) Start:26-Mar-2017 Instruction Type:Provider Instructions for Treatment How to access health informa tion online Indication:Nonsmoker Start:09-Jan-2017 Instruction Type:Patient Education How to access health informa tion online - Detail Indication:Nonsmoker Start:09-Jan-2017 Instruction Type:Patient Education Patient Instructions Indication:Nonsmoker Start:09-Jan-2017 Instruction Type:Provider Instructions for Treatment How to access health informa tion online Indication:Abnormal glucose tolerance test Start:02-Jan-2017 Instruction Type:Patient Education How to access health informa tion online - Detail Indication:Abnormal glucose tolerance test Start:02-Jan-2017 Instruction Type:Patient Education Patient Instructions Indication:Abnormal glucose tolerance test Start:02-Jan-2017 Instruction Type:Provider Instructions for Treatment How to access health informa tion online Indication:Cough Start:14-Mar-2016 Instruction Type:Patient Education How to access health informa tion online - Detail Indication:Cough Start:14-Mar-2016 Instruction Type:Patient Education Patient Instructions Indication:Cough Start:14-Mar-2016 Instruction Type:Provider Instructions for Treatment How to access health informa tion online Indication:Cough Start:31-Jan-2015 Instruction Type:Patient Education How to access health informa tion online - Detail Indication:Cough Start:31-Jan-2015 Instruction Type:Patient Education Patient Instructions Indication:Cough Start:31-Jan-2015 Instruction Type:Provider Instructions for Treatment [facility]; [facility] Work Phone: Instructions* Name Dates Details How to Access Health Informa tion Online using Patient Portal and [employer] Apps Indication:Non-smoker Start:12-Nov-2022 Instruction Type:Patient Education Patient Instructions Indication:Non-smoker Start:12-Nov-2022 Instruction Type:Provider Instructions for Treatment Patient Instructions Indication:Non-smoker Start:13-Oct-2022 Instruction Type:Provider Instructions for Treatment How to Access Health Informa tion Online using Patient Portal and [employer] Apps Indication:Non-smoker Start:13-Oct-2022 Instruction Type:Patient Education Patient Instructions Indication:BMI 25.0-25.9,adult Start:29-May-2022 Instruction Type:Provider Instructions for Treatment How to Access Health Informa tion Online using Patient Portal and [employer] Apps Indication:BMI 25.0-25.9,adult Start:29-May-2022 Instruction Type:Patient Education Patient Instructions Indication:Cough Start:05-May-2022 Instruction Type:Provider Instructions for Treatment How to Access Health Informa tion Online using Patient Portal and [employer] Apps Indication:Cough Start:05-May-2022 Instruction Type:Patient Education Patient Instructions Indication:Non-smoker Start:26-Mar-2022 Instruction Type:Provider Instructions for Treatment How to Access Health Informa tion Online using Patient Portal and [employer] Apps Indication:Non-smoker Start:26-Mar-2022 Instruction Type:Patient Education Patient Instructions Indication:BMI 25.0-25.9,adult Start:25-Mar-2022 Instruction Type:Provider Instructions for Treatment How to Access Health Informa tion Online using Patient Portal and [employer] Apps Indication:BMI 25.0-25.9,adult Start:25-Mar-2022 Instruction Type:Patient Education Patient Instructions Indication:Non-smoker Start:03-Feb-2022 Instruction Type:Provider Instructions for Treatment How to Access Health Informa tion Online using Patient Portal and [employer] Apps Indication:Non-smoker Start:03-Feb-2022 Instruction Type:Patient Education Patient Instructions Indication:BMI 25.0-25.9,adult Start:06-Jan-2022 Instruction Type:Provider Instructions for Treatment How to Access Health Informa tion Online using Patient Portal and [employer] Apps Indication:BMI 25.0-25.9,adult Start:06-Jan-2022 Instruction Type:Patient Education Patient Instructions Indication:BMI 25.0-25.9,adult Start:21-Oct-2021 Instruction Type:Provider Instructions for Treatment How to Access Health Informa tion Online using Patient Portal and [employer] Apps Indication:BMI 25.0-25.9,adult Start:21-Oct-2021 Instruction Type:Patient Education Patient Instructions Indication:BMI 27.0-27.9,adult Start:25-Sep-2021 Instruction Type:Provider Instructions for Treatment How to Access Health Informa tion Online using Patient Portal and [employer] Apps Indication:BMI 27.0-27.9,adult Start:25-Sep-2021 Instruction Type:Patient Education Patient Instructions Indication:BMI 27.0-27.9,adult Start:18-Sep-2021 Instruction Type:Provider Instructions for Treatment How to Access Health Informa tion Online using Patient Portal and [employer] Apps Indication:BMI 27.0-27.9,adult Start:18-Sep-2021 Instruction Type:Patient Education Patient Instructions Indication:Non-smoker Start:13-Sep-2021 Instruction Type:Provider Instructions for Treatment How to Access Health Informa tion Online using Patient Portal and [employer] Apps Indication:Non-smoker Start:13-Sep-2021 Instruction Type:Patient Education Patient Instructions Indication:BMI 27.0-27.9,adult Start:30-Jan-2021 Instruction Type:Provider Instructions for Treatment How to Access Health Informa tion Online using Patient Portal and [employer] Apps Indication:BMI 27.0-27.9,adult Start:30-Jan-2021 Instruction Type:Patient Education Patient Instructions Indication:Non-smoker Start:23-Oct-2020 Instruction Type:Provider Instructions for Treatment How to Access Health Informa tion Online using Patient Portal and [employer] Apps Indication:Non-smoker Start:23-Oct-2020 Instruction Type:Patient Education Patient Instructions Indication:BMI 27.0-27.9,adult Start:19-Oct-2020 Instruction Type:Provider Instructions for Treatment How to Access Health Informa tion Online using Patient Portal and [employer] Apps Indication:BMI 27.0-27.9,adult Start:19-Oct-2020 Instruction Type:Patient Education How to access health informa tion online Indication:BMI 27.0-27.9,adult Start:16-Jan-2020 Instruction Type:Patient Education How to access health informa tion online - Detail Indication:BMI 27.0-27.9,adult Start:16-Jan-2020 Instruction Type:Patient Education Patient Instructions Indication:BMI 27.0-27.9,adult Start:16-Jan-2020 Instruction Type:Provider Instructions for Treatment How to access health informa tion online Indication:Non-smoker Start:24-Oct-2019 Instruction Type:Patient Education How to access health informa tion online - Detail Indication:Non-smoker Start:24-Oct-2019 Instruction Type:Patient Education Patient Instructions Indication:BMI 27.0-27.9,adult Start:24-Oct-2019 Instruction Type:Provider Instructions for Treatment How to access health informa tion online Indication:Non-smoker Start:25-Aug-2019 Instruction Type:Patient Education How to access health informa tion online - Detail Indication:Non-smoker Start:25-Aug-2019 Instruction Type:Patient Education Patient Instructions Indication:Non-smoker Start:25-Aug-2019 Instruction Type:Provider Instructions for Treatment How to access health informa tion online Indication:Non-smoker Start:12-May-2019 Instruction Type:Patient Education How to access health informa tion online - Detail Indication:Non-smoker Start:12-May-2019 Instruction Type:Patient Education Patient Instructions Indication:Non-smoker Start:12-May-2019 Instruction Type:Provider Instructions for Treatment How to access health informa tion online Indication:Non-smoker Start:02-May-2019 Instruction Type:Patient Education How to access health informa tion online - Detail Indication:Non-smoker Start:02-May-2019 Instruction Type:Patient Education Patient Instructions Indication:Non-smoker Start:02-May-2019 Instruction Type:Provider Instructions for Treatment How to access health informa tion online Indication:BMI 26.0-26.9,adult Start:28-Apr-2019 Instruction Type:Patient Education How to access health informa tion online - Detail Indication:BMI 26.0-26.9,adult Start:28-Apr-2019 Instruction Type:Patient Education Patient Instructions Indication:BMI 26.0-26.9,adult Start:28-Apr-2019 Instruction Type:Provider Instructions for Treatment How to access health informa tion online Indication:Cough Start:26-Apr-2019 Instruction Type:Patient Education How to access health informa tion online - Detail Indication:Cough Start:26-Apr-2019 Instruction Type:Patient Education Patient Instructions Indication:Cough Start:26-Apr-2019 Instruction Type:Provider Instructions for Treatment How to access health informa tion online Indication:Nasal congestion Start:12-Apr-2019 Instruction Type:Patient Education How to access health informa tion online - Detail Indication:Nasal congestion Start:12-Apr-2019 Instruction Type:Patient Education Patient Instructions Indication:Nasal congestion Start:12-Apr-2019 Instruction Type:Provider Instructions for Treatment How to access health informa tion online Indication:Cough Start:08-Feb-2019 Instruction Type:Patient Education How to access health informa tion online - Detail Indication:Cough Start:08-Feb-2019 Instruction Type:Patient Education Patient Instructions Indication:Cough Start:08-Feb-2019 Instruction Type:Provider Instructions for Treatment How to access health informa tion online Indication:Nonsmoker Start:29-Jul-2018 Instruction Type:Patient Education How to access health informa tion online - Detail Indication:Nonsmoker Start:29-Jul-2018 Instruction Type:Patient Education Patient Instructions Indication:Nonsmoker Start:29-Jul-2018 Instruction Type:Provider Instructions for Treatment How to access health informa tion online Indication:BMI 25.0-25.9,adult Start:26-Mar-2017 Instruction Type:Patient Education How to access health informa tion online - Detail Indication:BMI 25.0-25.9,adult Start:26-Mar-2017 Instruction Type:Patient Education Patient Instructions Indication:Chronic obstructive asthma with acute exacerbation (Renamed from Chronic obstructive asthma with exacerbation) Start:26-Mar-2017 Instruction Type:Provider Instructions for Treatment How to access health informa tion online Indication:Nonsmoker Start:09-Jan-2017 Instruction Type:Patient Education How to access health informa tion online - Detail Indication:Nonsmoker Start:09-Jan-2017 Instruction Type:Patient Education Patient Instructions Indication:Nonsmoker Start:09-Jan-2017 Instruction Type:Provider Instructions for Treatment How to access health informa tion online Indication:Abnormal glucose tolerance test Start:02-Jan-2017 Instruction Type:Patient Education How to access health informa tion online - Detail Indication:Abnormal glucose tolerance test Start:02-Jan-2017 Instruction Type:Patient Education Patient Instructions Indication:Abnormal glucose tolerance test Start:02-Jan-2017 Instruction Type:Provider Instructions for Treatment How to access health informa tion online Indication:Cough Start:14-Mar-2016 Instruction Type:Patient Education How to access health informa tion online - Detail Indication:Cough Start:14-Mar-2016 Instruction Type:Patient Education Patient Instructions Indication:Cough Start:14-Mar-2016 Instruction Type:Provider Instructions for Treatment How to access health informa tion online Indication:Cough Start:31-Jan-2015 Instruction Type:Patient Education How to access health informa tion online - Detail Indication:Cough Start:31-Jan-2015 Instruction Type:Patient Education Patient Instructions Indication:Cough Start:31-Jan-2015 Instruction Type:Provider Instructions for Treatment [facility]; [facility] Work Phone: Instructions* Name Dates Details How to Access Health Informa tion Online using Patient Portal and [employer] Apps Indication:Non-smoker Start:12-Nov-2022 Instruction Type:Patient Education Patient Instructions Indication:Non-smoker Start:12-Nov-2022 Instruction Type:Provider Instructions for Treatment Patient Instructions Indication:Non-smoker Start:13-Oct-2022 Instruction Type:Provider Instructions for Treatment How to Access Health Informa tion Online using Patient Portal and [employer] Apps Indication:Non-smoker Start:13-Oct-2022 Instruction Type:Patient Education Patient Instructions Indication:BMI 25.0-25.9,adult Start:29-May-2022 Instruction Type:Provider Instructions for Treatment How to Access Health Informa tion Online using Patient Portal and [employer] Apps Indication:BMI 25.0-25.9,adult Start:29-May-2022 Instruction Type:Patient Education Patient Instructions Indication:Cough Start:05-May-2022 Instruction Type:Provider Instructions for Treatment How to Access Health Informa tion Online using Patient Portal and [employer] Apps Indication:Cough Start:05-May-2022 Instruction Type:Patient Education Patient Instructions Indication:Non-smoker Start:26-Mar-2022 Instruction Type:Provider Instructions for Treatment How to Access Health Informa tion Online using Patient Portal and [employer] Apps Indication:Non-smoker Start:26-Mar-2022 Instruction Type:Patient Education Patient Instructions Indication:BMI 25.0-25.9,adult Start:25-Mar-2022 Instruction Type:Provider Instructions for Treatment How to Access Health Informa tion Online using Patient Portal and [employer] Apps Indication:BMI 25.0-25.9,adult Start:25-Mar-2022 Instruction Type:Patient Education Patient Instructions Indication:Non-smoker Start:03-Feb-2022 Instruction Type:Provider Instructions for Treatment How to Access Health Informa tion Online using Patient Portal and [employer] Apps Indication:Non-smoker Start:03-Feb-2022 Instruction Type:Patient Education Patient Instructions Indication:BMI 25.0-25.9,adult Start:06-Jan-2022 Instruction Type:Provider Instructions for Treatment How to Access Health Informa tion Online using Patient Portal and [employer] Apps Indication:BMI 25.0-25.9,adult Start:06-Jan-2022 Instruction Type:Patient Education Patient Instructions Indication:BMI 25.0-25.9,adult Start:21-Oct-2021 Instruction Type:Provider Instructions for Treatment How to Access Health Informa tion Online using Patient Portal and [employer] Apps Indication:BMI 25.0-25.9,adult Start:21-Oct-2021 Instruction Type:Patient Education Patient Instructions Indication:BMI 27.0-27.9,adult Start:25-Sep-2021 Instruction Type:Provider Instructions for Treatment How to Access Health Informa tion Online using Patient Portal and [employer] Apps Indication:BMI 27.0-27.9,adult Start:25-Sep-2021 Instruction Type:Patient Education Patient Instructions Indication:BMI 27.0-27.9,adult Start:18-Sep-2021 Instruction Type:Provider Instructions for Treatment How to Access Health Informa tion Online using Patient Portal and [employer] Apps Indication:BMI 27.0-27.9,adult Start:18-Sep-2021 Instruction Type:Patient Education Patient Instructions Indication:Non-smoker Start:13-Sep-2021 Instruction Type:Provider Instructions for Treatment How to Access Health Informa tion Online using Patient Portal and [employer] Apps Indication:Non-smoker Start:13-Sep-2021 Instruction Type:Patient Education Patient Instructions Indication:BMI 27.0-27.9,adult Start:30-Jan-2021 Instruction Type:Provider Instructions for Treatment How to Access Health Informa tion Online using Patient Portal and [employer] Apps Indication:BMI 27.0-27.9,adult Start:30-Jan-2021 Instruction Type:Patient Education Patient Instructions Indication:Non-smoker Start:23-Oct-2020 Instruction Type:Provider Instructions for Treatment How to Access Health Informa tion Online using Patient Portal and [employer] Apps Indication:Non-smoker Start:23-Oct-2020 Instruction Type:Patient Education Patient Instructions Indication:BMI 27.0-27.9,adult Start:19-Oct-2020 Instruction Type:Provider Instructions for Treatment How to Access Health Informa tion Online using Patient Portal and [employer] Apps Indication:BMI 27.0-27.9,adult Start:19-Oct-2020 Instruction Type:Patient Education How to access health informa tion online Indication:BMI 27.0-27.9,adult Start:16-Jan-2020 Instruction Type:Patient Education How to access health informa tion online - Detail Indication:BMI 27.0-27.9,adult Start:16-Jan-2020 Instruction Type:Patient Education Patient Instructions Indication:BMI 27.0-27.9,adult Start:16-Jan-2020 Instruction Type:Provider Instructions for Treatment How to access health informa tion online Indication:Non-smoker Start:24-Oct-2019 Instruction Type:Patient Education How to access health informa tion online - Detail Indication:Non-smoker Start:24-Oct-2019 Instruction Type:Patient Education Patient Instructions Indication:BMI 27.0-27.9,adult Start:24-Oct-2019 Instruction Type:Provider Instructions for Treatment How to access health informa tion online Indication:Non-smoker Start:25-Aug-2019 Instruction Type:Patient Education How to access health informa tion online - Detail Indication:Non-smoker Start:25-Aug-2019 Instruction Type:Patient Education Patient Instructions Indication:Non-smoker Start:25-Aug-2019 Instruction Type:Provider Instructions for Treatment How to access health informa tion online Indication:Non-smoker Start:12-May-2019 Instruction Type:Patient Education How to access health informa tion online - Detail Indication:Non-smoker Start:12-May-2019 Instruction Type:Patient Education Patient Instructions Indication:Non-smoker Start:12-May-2019 Instruction Type:Provider Instructions for Treatment How to access health informa tion online Indication:Non-smoker Start:02-May-2019 Instruction Type:Patient Education How to access health informa tion online - Detail Indication:Non-smoker Start:02-May-2019 Instruction Type:Patient Education Patient Instructions Indication:Non-smoker Start:02-May-2019 Instruction Type:Provider Instructions for Treatment How to access health informa tion online Indication:BMI 26.0-26.9,adult Start:28-Apr-2019 Instruction Type:Patient Education How to access health informa tion online - Detail Indication:BMI 26.0-26.9,adult Start:28-Apr-2019 Instruction Type:Patient Education Patient Instructions Indication:BMI 26.0-26.9,adult Start:28-Apr-2019 Instruction Type:Provider Instructions for Treatment How to access health informa tion online Indication:Cough Start:26-Apr-2019 Instruction Type:Patient Education How to access health informa tion online - Detail Indication:Cough Start:26-Apr-2019 Instruction Type:Patient Education Patient Instructions Indication:Cough Start:26-Apr-2019 Instruction Type:Provider Instructions for Treatment How to access health informa tion online Indication:Nasal congestion Start:12-Apr-2019 Instruction Type:Patient Education How to access health informa tion online - Detail Indication:Nasal congestion Start:12-Apr-2019 Instruction Type:Patient Education Patient Instructions Indication:Nasal congestion Start:12-Apr-2019 Instruction Type:Provider Instructions for Treatment How to access health informa tion online Indication:Cough Start:08-Feb-2019 Instruction Type:Patient Education How to access health informa tion online - Detail Indication:Cough Start:08-Feb-2019 Instruction Type:Patient Education Patient Instructions Indication:Cough Start:08-Feb-2019 Instruction Type:Provider Instructions for Treatment How to access health informa tion online Indication:Nonsmoker Start:29-Jul-2018 Instruction Type:Patient Education How to access health informa tion online - Detail Indication:Nonsmoker Start:29-Jul-2018 Instruction Type:Patient Education Patient Instructions Indication:Nonsmoker Start:29-Jul-2018 Instruction Type:Provider Instructions for Treatment How to access health informa tion online Indication:BMI 25.0-25.9,adult Start:26-Mar-2017 Instruction Type:Patient Education How to access health informa tion online - Detail Indication:BMI 25.0-25.9,adult Start:26-Mar-2017 Instruction Type:Patient Education Patient Instructions Indication:Chronic obstructive asthma with acute exacerbation (Renamed from Chronic obstructive asthma with exacerbation) Start:26-Mar-2017 Instruction Type:Provider Instructions for Treatment How to access health informa tion online Indication:Nonsmoker Start:09-Jan-2017 Instruction Type:Patient Education How to access health informa tion online - Detail Indication:Nonsmoker Start:09-Jan-2017 Instruction Type:Patient Education Patient Instructions Indication:Nonsmoker Start:09-Jan-2017 Instruction Type:Provider Instructions for Treatment How to access health informa tion online Indication:Abnormal glucose tolerance test Start:02-Jan-2017 Instruction Type:Patient Education How to access health informa tion online - Detail Indication:Abnormal glucose tolerance test Start:02-Jan-2017 Instruction Type:Patient Education Patient Instructions Indication:Abnormal glucose tolerance test Start:02-Jan-2017 Instruction Type:Provider Instructions for Treatment How to access health informa tion online Indication:Cough Start:14-Mar-2016 Instruction Type:Patient Education How to access health informa tion online - Detail Indication:Cough Start:14-Mar-2016 Instruction Type:Patient Education Patient Instructions Indication:Cough Start:14-Mar-2016 Instruction Type:Provider Instructions for Treatment How to access health informa tion online Indication:Cough Start:31-Jan-2015 Instruction Type:Patient Education How to access health informa tion online - Detail Indication:Cough Start:31-Jan-2015 Instruction Type:Patient Education Patient Instructions Indication:Cough Start:31-Jan-2015 Instruction Type:Provider Instructions for Treatment [facility] Work Phone: Instructions* Name Dates Details How to Access Health Informa tion Online using Patient Portal and [employer] Apps Indication:Non-smoker Start:12-Nov-2022 Instruction Type:Patient Education Patient Instructions Indication:Non-smoker Start:12-Nov-2022 Instruction Type:Provider Instructions for Treatment Patient Instructions Indication:Non-smoker Start:13-Oct-2022 Instruction Type:Provider Instructions for Treatment How to Access Health Informa tion Online using Patient Portal and [employer] Apps Indication:Non-smoker Start:13-Oct-2022 Instruction Type:Patient Education Patient Instructions Indication:BMI 25.0-25.9,adult Start:29-May-2022 Instruction Type:Provider Instructions for Treatment How to Access Health Informa tion Online using Patient Portal and [employer] Apps Indication:BMI 25.0-25.9,adult Start:29-May-2022 Instruction Type:Patient Education Patient Instructions Indication:Cough Start:05-May-2022 Instruction Type:Provider Instructions for Treatment How to Access Health Informa tion Online using Patient Portal and [employer] Apps Indication:Cough Start:05-May-2022 Instruction Type:Patient Education Patient Instructions Indication:Non-smoker Start:26-Mar-2022 Instruction Type:Provider Instructions for Treatment How to Access Health Informa tion Online using Patient Portal and [employer] Apps Indication:Non-smoker Start:26-Mar-2022 Instruction Type:Patient Education Patient Instructions Indication:BMI 25.0-25.9,adult Start:25-Mar-2022 Instruction Type:Provider Instructions for Treatment How to Access Health Informa tion Online using Patient Portal and [employer] Apps Indication:BMI 25.0-25.9,adult Start:25-Mar-2022 Instruction Type:Patient Education Patient Instructions Indication:Non-smoker Start:03-Feb-2022 Instruction Type:Provider Instructions for Treatment How to Access Health Informa tion Online using Patient Portal and [employer] Apps Indication:Non-smoker Start:03-Feb-2022 Instruction Type:Patient Education Patient Instructions Indication:BMI 25.0-25.9,adult Start:06-Jan-2022 Instruction Type:Provider Instructions for Treatment How to Access Health Informa tion Online using Patient Portal and [employer] Apps Indication:BMI 25.0-25.9,adult Start:06-Jan-2022 Instruction Type:Patient Education Patient Instructions Indication:BMI 25.0-25.9,adult Start:21-Oct-2021 Instruction Type:Provider Instructions for Treatment How to Access Health Informa tion Online using Patient Portal and [employer] Apps Indication:BMI 25.0-25.9,adult Start:21-Oct-2021 Instruction Type:Patient Education Patient Instructions Indication:BMI 27.0-27.9,adult Start:25-Sep-2021 Instruction Type:Provider Instructions for Treatment How to Access Health Informa tion Online using Patient Portal and [employer] Apps Indication:BMI 27.0-27.9,adult Start:25-Sep-2021 Instruction Type:Patient Education Patient Instructions Indication:BMI 27.0-27.9,adult Start:18-Sep-2021 Instruction Type:Provider Instructions for Treatment How to Access Health Informa tion Online using Patient Portal and [employer] Apps Indication:BMI 27.0-27.9,adult Start:18-Sep-2021 Instruction Type:Patient Education Patient Instructions Indication:Non-smoker Start:13-Sep-2021 Instruction Type:Provider Instructions for Treatment How to Access Health Informa tion Online using Patient Portal and [employer] Apps Indication:Non-smoker Start:13-Sep-2021 Instruction Type:Patient Education Patient Instructions Indication:BMI 27.0-27.9,adult Start:30-Jan-2021 Instruction Type:Provider Instructions for Treatment How to Access Health Informa tion Online using Patient Portal and [employer] Apps Indication:BMI 27.0-27.9,adult Start:30-Jan-2021 Instruction Type:Patient Education Patient Instructions Indication:Non-smoker Start:23-Oct-2020 Instruction Type:Provider Instructions for Treatment How to Access Health Informa tion Online using Patient Portal and [employer] Apps Indication:Non-smoker Start:23-Oct-2020 Instruction Type:Patient Education Patient Instructions Indication:BMI 27.0-27.9,adult Start:19-Oct-2020 Instruction Type:Provider Instructions for Treatment How to Access Health Informa tion Online using Patient Portal and [employer] Apps Indication:BMI 27.0-27.9,adult Start:19-Oct-2020 Instruction Type:Patient Education How to access health informa tion online Indication:BMI 27.0-27.9,adult Start:16-Jan-2020 Instruction Type:Patient Education How to access health informa tion online - Detail Indication:BMI 27.0-27.9,adult Start:16-Jan-2020 Instruction Type:Patient Education Patient Instructions Indication:BMI 27.0-27.9,adult Start:16-Jan-2020 Instruction Type:Provider Instructions for Treatment How to access health informa tion online Indication:Non-smoker Start:24-Oct-2019 Instruction Type:Patient Education How to access health informa tion online - Detail Indication:Non-smoker Start:24-Oct-2019 Instruction Type:Patient Education Patient Instructions Indication:BMI 27.0-27.9,adult Start:24-Oct-2019 Instruction Type:Provider Instructions for Treatment How to access health informa tion online Indication:Non-smoker Start:25-Aug-2019 Instruction Type:Patient Education How to access health informa tion online - Detail Indication:Non-smoker Start:25-Aug-2019 Instruction Type:Patient Education Patient Instructions Indication:Non-smoker Start:25-Aug-2019 Instruction Type:Provider Instructions for Treatment How to access health informa tion online Indication:Non-smoker Start:12-May-2019 Instruction Type:Patient Education How to access health informa tion online - Detail Indication:Non-smoker Start:12-May-2019 Instruction Type:Patient Education Patient Instructions Indication:Non-smoker Start:12-May-2019 Instruction Type:Provider Instructions for Treatment How to access health informa tion online Indication:Non-smoker Start:02-May-2019 Instruction Type:Patient Education How to access health informa tion online - Detail Indication:Non-smoker Start:02-May-2019 Instruction Type:Patient Education Patient Instructions Indication:Non-smoker Start:02-May-2019 Instruction Type:Provider Instructions for Treatment How to access health informa tion online Indication:BMI 26.0-26.9,adult Start:28-Apr-2019 Instruction Type:Patient Education How to access health informa tion online - Detail Indication:BMI 26.0-26.9,adult Start:28-Apr-2019 Instruction Type:Patient Education Patient Instructions Indication:BMI 26.0-26.9,adult Start:28-Apr-2019 Instruction Type:Provider Instructions for Treatment How to access health informa tion online Indication:Cough Start:26-Apr-2019 Instruction Type:Patient Education How to access health informa tion online - Detail Indication:Cough Start:26-Apr-2019 Instruction Type:Patient Education Patient Instructions Indication:Cough Start:26-Apr-2019 Instruction Type:Provider Instructions for Treatment How to access health informa tion online Indication:Nasal congestion Start:12-Apr-2019 Instruction Type:Patient Education How to access health informa tion online - Detail Indication:Nasal congestion Start:12-Apr-2019 Instruction Type:Patient Education Patient Instructions Indication:Nasal congestion Start:12-Apr-2019 Instruction Type:Provider Instructions for Treatment How to access health informa tion online Indication:Cough Start:08-Feb-2019 Instruction Type:Patient Education How to access health informa tion online - Detail Indication:Cough Start:08-Feb-2019 Instruction Type:Patient Education Patient Instructions Indication:Cough Start:08-Feb-2019 Instruction Type:Provider Instructions for Treatment How to access health informa tion online Indication:Nonsmoker Start:29-Jul-2018 Instruction Type:Patient Education How to access health informa tion online - Detail Indication:Nonsmoker Start:29-Jul-2018 Instruction Type:Patient Education Patient Instructions Indication:Nonsmoker Start:29-Jul-2018 Instruction Type:Provider Instructions for Treatment How to access health informa tion online Indication:BMI 25.0-25.9,adult Start:26-Mar-2017 Instruction Type:Patient Education How to access health informa tion online - Detail Indication:BMI 25.0-25.9,adult Start:26-Mar-2017 Instruction Type:Patient Education Patient Instructions Indication:Chronic obstructive asthma with acute exacerbation (Renamed from Chronic obstructive asthma with exacerbation) Start:26-Mar-2017 Instruction Type:Provider Instructions for Treatment How to access health informa tion online Indication:Nonsmoker Start:09-Jan-2017 Instruction Type:Patient Education How to access health informa tion online - Detail Indication:Nonsmoker Start:09-Jan-2017 Instruction Type:Patient Education Patient Instructions Indication:Nonsmoker Start:09-Jan-2017 Instruction Type:Provider Instructions for Treatment How to access health informa tion online Indication:Abnormal glucose tolerance test Start:02-Jan-2017 Instruction Type:Patient Education How to access health informa tion online - Detail Indication:Abnormal glucose tolerance test Start:02-Jan-2017 Instruction Type:Patient Education Patient Instructions Indication:Abnormal glucose tolerance test Start:02-Jan-2017 Instruction Type:Provider Instructions for Treatment How to access health informa tion online Indication:Cough Start:14-Mar-2016 Instruction Type:Patient Education How to access health informa tion online - Detail Indication:Cough Start:14-Mar-2016 Instruction Type:Patient Education Patient Instructions Indication:Cough Start:14-Mar-2016 Instruction Type:Provider Instructions for Treatment How to access health informa tion online Indication:Cough Start:31-Jan-2015 Instruction Type:Patient Education How to access [employer] online - Detail Indication:Cough Start:31-Jan-2015 Instruction Type:Patient Education Patient Instructions Indication:Cough Start:31-Jan-2015 Instruction Type:Provider Instructions for Treatment [facility]; [facility] Work Phone: reason for referral (narrative)* Outpatient Procedure (Routine) - Authorized Specialty Diagnoses / Procedures Referred By Contac t Referred To [facility] Diagnoses Dyspnea, unspecified type Procedures SPIROMETRY WITH DILATOR IF OBSTRUCTED BRNCDILAT RSPSE SPMTRY PRE&POST-BRNCDILAT ADMVikki Desouza MD [address] [place] [address] [facility] [place] [address] [place] [address] Referral ID Status Reason Start Date Expiration Date Visits Requested Visits Authorized [id number] Authorized Auto-Generat ed Referral 06/30/2023 07/29/2024 1 1 [facility] for referral (narrative)No reason for referral information availableWKettering [facility] Work Phone: Family History No Family History Records FoundUnknown Family Member Name Dates Details Father Comments:MVA when Will was 2 Status:Active Mother Comments:, blood dis order Status:Active Sister 1 Comments: of Some kind o f [place] Status:Active Unknown Family Member Name Dates Details Father Comments:MVA when Will was 2 Status:Active Mother Comments:, blood dis order Status:Active Sister 1 Comments: of Some kind o f [place] Status:Active Unknown Family Member Name Dates Details Father Comments:MVA when Will was 2 Status:Active Mother Comments:, blood dis order Status:Active Sister 1 Comments: of Some kind o f [place] Status:Active Unknown Family Member Name Dates Details Father Comments:MVA when Will was 2 Status:Active Mother Comments:, blood dis order Status:Active Sister 1 Comments: of Some kind o f [place] Status:Active Unknown Family Member Name Dates Details Father Comments:MVA when Will was 2 Status:Active Mother Comments:, blood dis order Status:Active Sister 1 Comments: of Some kind o f [place] Status:Active Unknown Family Member Name Dates Details Father Comments:MVA when Will was 2 Status:Active Mother Comments:, blood dis order Status:Active Sister 1 Comments: of Some kind o f [place] Status:Active Unknown Family Member Name Dates Details Father Comments:MVA when Will was 2 Status:Active Mother Comments:, blood dis order Status:Active Sister 1 Comments: of Some kind o f [place] Status:Active Unknown Family Member Name Dates Details Father Comments:MVA when Will was 2 Status:Active Mother Comments:, blood dis order Status:Active Sister 1 Comments: of Some kind o f [place] Status:Active Unknown Family Member Name Dates Details Father Comments:MVA when Will was 2 Status:Active Mother Comments:, blood dis order Status:Active Sister 1 Comments: of Some kind o f [place] Status:Active Unknown Family Member Name Dates Details Father Comments:MVA when Will was 2 Status:Active Mother Comments:, blood dis order Status:Active Sister 1 Comments: of Some kind o f [place] Status:Active Unknown Family Member Name Dates Details Father Comments:MVA when Will was 2 Status:Active Mother Comments:, blood dis order Status:Active Sister 1 Comments: of Some kind o f [place] Status:Active Unknown Family Member Name Dates Details Father Comments:MVA when Will was 2 Status:Active Mother Comments:, blood dis order Status:Active Sister 1 Comments: of Some kind o f [place] Status:Active Unknown Family Member Name Dates Details Father Comments:MVA when Will was 2 Status:Active Mother Comments:, blood dis order Status:Active Sister 1 Comments: of Some kind o f [place] Status:Active Unknown Family Member Name Dates Details Father Comments:MVA when Will was 2 Status:Active Mother Comments:, blood dis order Status:Active Sister 1 Comments: of Some kind o f [place] Status:Active Unknown Family Member Name Dates Details Father Comments:MVA when Will was 2 Status:Active Mother Comments:, blood dis order Status:Active Sister 1 Comments: of Some kind o f [place] Status:Active Unknown Family Member Name Dates Details Father Comments:MVA when Will was 2 Status:Active Mother Comments:, blood dis order Status:Active Sister 1 Comments: of Some kind o f [place] Status:Active Unknown Family Member Name Dates Details Father Comments:MVA when Will was 2 Status:Active Mother Comments:, blood dis order Status:Active Sister 1 Comments: of Some kind o f [place] Status:Active Relationship Condition Age at Onset Recorded Date/T obdulio sister Malignant neoplasm Unknown Unknown Family Member Name Dates Details Father Comments:MVA when Will was 2 Status:Active Mother Comments:, blood dis order Status:Active Sister 1 Comments: of Some kind o f [place] Status:Active Unknown Family Member Name Dates Details Father Comments:MVA when Will was 2 Status:Active Mother Comments:, blood dis order Status:Active Sister 1 Comments: of Some kind o f [place] Status:Active Unknown Family Member Name Dates Details Father Comments:MVA when Will was 2 Status:Active Mother Comments:, blood dis order Status:Active Sister 1 Comments: of Some kind o f [place] Status:Active Unknown Family Member Name Dates Details Father Comments:MVA when Will was 2 Status:Active Mother Comments:, blood dis order Status:Active Sister 1 Comments: of Some kind o f [place] Status:Active Unknown Family Member Name Dates Details Father Comments:MVA when Will was 2 Status:Active Mother Comments:, blood dis order Status:Active Sister 1 Comments: of Some kind o f [place] Status:Active Unknown Family Member Name Dates Details Father Comments:MVA when Will was 1 Status:Active Mother Comments:, blood dis order Status:Active Sister 1 Comments: of Some kind o f [place] Status:Active Unknown Family Member Name Dates Details Father Comments:MVA when Will was 1 Status:Active Mother Comments:, blood dis order Status:Active Sister 1 Comments: of Some kind o f [place] Status:Active Unknown Family Member Name Dates Details Father Comments:MVA when Will was 2 Status:Active Mother Comments:, blood dis order Status:Active Sister 1 Comments: of Some kind o f [place] Status:Active Unknown Family Member Name Dates Details Father Comments:MVA when Will was 2 Status:Active Mother Comments:, blood dis order Status:Active Sister 1 Comments: of Some kind o f [place] Status:Active Unknown Family Member Name Dates Details Father Comments:MVA when Will was 2 Status:Active Mother Comments:, blood dis order Status:Active Sister 1 Comments: of Some kind o f [place] Status:Active Relationship Condition Age at Onset Recorded Date/T obdulio sister Malignant neoplasm Unknown mother Hemorrhagic disorder Unknown Unknown Family Member Name Dates Details Father Comments:MVA when Will was 1 Status:Active Mother Comments:, blood dis order Status:Active Sister 1 Comments: of Some kind o f [place] Status:Active Unknown Family Member Name Dates Details Father Comments:MVA when Will was 2 Status:Active Mother Comments:, blood dis order Status:Active Sister 1 Comments: of Some kind o f [place] Status:Active Unknown Family Member Name Dates Details Father Comments:MVA when Will was 2 Status:Active Mother Comments:, blood dis order Status:Active Sister 1 Comments: of Some kind o f [place] Status:Active Unknown Family Member Name Dates Details Father Comments:MVA when Will was 2 Status:Active Mother Comments:, blood dis order Status:Active Sister 1 Comments: of Some kind o f [place] Status:Active Unknown Family Member Name Dates Details Father Comments:MVA when Will was 2 Status:Active Mother Comments:, blood dis order Status:Active Sister 1 Comments: of Some kind o f [place] Status:Active Unknown Family Member Name Dates Details Father Comments:MVA when Will was 2 Status:Active Mother Comments:, blood dis order Status:Active Sister 1 Comments: of Some kind o f [place] Status:Active Unknown Family Member Name Dates Details Father Comments:MVA when Will was 2 Status:Active Mother Comments:, blood dis order Status:Active Sister 1 Comments: of Some kind o f [place] Status:Active Unknown Family Member Name Dates Details Father Comments:MVA when Will was 2 Status:Active Mother Comments:, blood dis order Status:Active Sister 1 Comments: of Some kind o f [place] Status:Active Unknown Family Member Name Dates Details Father Comments:MVA when Will was 2 Status:Active Mother Comments:, blood dis order Status:Active Sister 1 Comments: of Some kind o f [place] Status:Active Unknown Family Member Name Dates Details Father Comments:MVA when Will was 2 Status:Active Mother Comments:, blood dis order Status:Active Sister 1 Comments: of Some kind o f [place] Status:Active Unknown Family Member Name Dates Details Father Comments:MVA when Will was 2 Status:Active Mother Comments:, blood dis order Status:Active Sister 1 Comments: of Some kind o f [place] Status:Active Unknown Family Member Name Dates Details Father Comments:MVA when Will was 2 Status:Active Mother Comments:, blood dis order Status:Active Sister 1 Comments: of Some kind o f [place] Status:Active Unknown Family Member Name Dates Details Father Comments:MVA when Will was 2 Status:Active Mother Comments:, blood dis order Status:Active Sister 1 Comments: of Some kind o f [place] Status:Active Unknown Family Member Name Dates Details Father Comments:MVA when Will was 2 Status:Active Mother Comments:, blood dis order Status:Active Sister 1 Comments: of Some kind o f [place] Status:Active Unknown Family Member Name Dates Details Father Comments:MVA when Will was 2 Status:Active Mother Comments:, blood dis order Status:Active Sister 1 Comments: of Some kind o f [place] Status:Active Unknown Family Member Name Dates Details Father Comments:MVA when Will was 2 Status:Active Mother Comments:, blood dis order Status:Active Sister 1 Comments: of Some kind o f [place] Status:Active Unknown Family Member Name Dates Details Father Comments:MVA when Will was 2 Status:Active Mother Comments:, blood dis order Status:Active Sister 1 Comments: of Some kind o f [place] Status:Active Unknown Family Member Name Dates Details Father Comments:MVA when Will was 2 Status:Active Mother Comments:, blood dis order Status:Active Sister 1 Comments: of Some kind o f [place] Status:Active Unknown Family Member Name Dates Details Father Comments:MVA when Will was 2 Status:Active Mother Comments:, blood dis order Status:Active Sister 1 Comments: of Some kind o f [place] Status:Active Unknown Family Member Name Dates Details Father Comments:MVA when Will was 2 Status:Active Mother Comments:, blood dis order Status:Active Sister 1 Comments: of Some kind o f [place] Status:Active Unknown Family Member Name Dates Details Father Comments:MVA when Will was 2 Status:Active Mother Comments:, blood dis order Status:Active Sister 1 Comments: of Some kind o f [place] Status:Active Unknown Family Member Name Dates Details Father Comments:MVA when Will was 2 Status:Active Mother Comments:, blood dis order Status:Active Sister 1 Comments: of Some kind o f [place] Status:Active Unknown Family Member Name Dates Details Father Comments:MVA when Will was 1 Status:Active Mother Comments:, blood dis order Status:Active Sister 1 Comments: of Some kind o f [place] Status:Active Instructions Name Dates Details BMI 25.0-25.9,adult : How to access health information online Indication:BMI 25.0-25.9,adult BMI 25.0-25.9,adult : How to access health information online - Detail Indication:BMI 25.0-25.9,adult Chronic obstructive asthma w ith acute exacerbation (Renamed from Chronic obstructive asthma with exacerbation) : Patient Instructions Indication:Chronic obstructive asthma with acute exacerbation (Renamed from Chronic obstructive asthma with exacerbation) Nonsmoker : How to access he alth information online Indication:Nonsmoker Nonsmoker : How to access he alth information online - Detail Indication:Nonsmoker Nonsmoker : Patient Instruct ions Indication:Nonsmoker Abnormal glucose tolerance t est : How to access health information online Indication:Abnormal glucose tolerance test Abnormal glucose tolerance t est : How to access health information online - Detail Indication:Abnormal glucose tolerance test Abnormal glucose tolerance t est : Patient Instructions Indication:Abnormal glucose tolerance test Cough : How to access health information online Indication:Cough Cough : How to access health information online - Detail Indication:Cough Cough : Patient Instructions Indication:Cough Name Dates Details BMI 25.0-25.9,adult : How to access health information online Indication:BMI 25.0-25.9,adult BMI 25.0-25.9,adult : How to access health information online - Detail Indication:BMI 25.0-25.9,adult Chronic obstructive asthma w ith acute exacerbation (Renamed from Chronic obstructive asthma with exacerbation) : Patient Instructions Indication:Chronic obstructive asthma with acute exacerbation (Renamed from Chronic obstructive asthma with exacerbation) Nonsmoker : How to access he alth information online Indication:Nonsmoker Nonsmoker : How to access he alth information online - Detail Indication:Nonsmoker Nonsmoker : Patient Instruct ions Indication:Nonsmoker Abnormal glucose tolerance t est : How to access health information online Indication:Abnormal glucose tolerance test Abnormal glucose tolerance t est : How to access health information online - Detail Indication:Abnormal glucose tolerance test Abnormal glucose tolerance t est : Patient Instructions Indication:Abnormal glucose tolerance test Cough : How to access health information online Indication:Cough Cough : How to access health information online - Detail Indication:Cough Cough : Patient Instructions Indication:Cough Name Dates Details How to access health informa tion online Indication:Nonsmoker Start:29-Jul-2018 Instruction Type:Patient Education How to access health informa tion online - Detail Indication:Nonsmoker Start:29-Jul-2018 Instruction Type:Patient Education Patient Instructions Indication:Nonsmoker Start:29-Jul-2018 Instruction Type:Provider Instructions for Treatment How to access health informa tion online Indication:BMI 25.0-25.9,adult Start:26-Mar-2017 Instruction Type:Patient Education How to access health informa tion online - Detail Indication:BMI 25.0-25.9,adult Start:26-Mar-2017 Instruction Type:Patient Education Patient Instructions Indication:Chronic obstructive asthma with acute exacerbation (Renamed from Chronic obstructive asthma with exacerbation) Start:26-Mar-2017 Instruction Type:Provider Instructions for Treatment How to access health informa tion online Indication:Nonsmoker Start:09-Jan-2017 Instruction Type:Patient Education How to access health informa tion online - Detail Indication:Nonsmoker Start:09-Jan-2017 Instruction Type:Patient Education Patient Instructions Indication:Nonsmoker Start:09-Jan-2017 Instruction Type:Provider Instructions for Treatment How to access health informa tion online Indication:Abnormal glucose tolerance test Start:02-Jan-2017 Instruction Type:Patient Education How to access health informa tion online - Detail Indication:Abnormal glucose tolerance test Start:02-Jan-2017 Instruction Type:Patient Education Patient Instructions Indication:Abnormal glucose tolerance test Start:02-Jan-2017 Instruction Type:Provider Instructions for Treatment How to access health informa tion online Indication:Cough Start:14-Mar-2016 Instruction Type:Patient Education How to access health informa tion online - Detail Indication:Cough Start:14-Mar-2016 Instruction Type:Patient Education Patient Instructions Indication:Cough Start:14-Mar-2016 Instruction Type:Provider Instructions for Treatment How to access health informa tion online Indication:Cough Start:31-Jan-2015 Instruction Type:Patient Education How to access health informa tion online - Detail Indication:Cough Start:31-Jan-2015 Instruction Type:Patient Education Patient Instructions Indication:Cough Start:31-Jan-2015 Instruction Type:Provider Instructions for Treatment Name Dates Details How to access health informa tion online Indication:Nonsmoker Start:29-Jul-2018 Instruction Type:Patient Education How to access health informa tion online - Detail Indication:Nonsmoker Start:29-Jul-2018 Instruction Type:Patient Education Patient Instructions Indication:Nonsmoker Start:29-Jul-2018 Instruction Type:Provider Instructions for Treatment How to access health informa tion online Indication:BMI 25.0-25.9,adult Start:26-Mar-2017 Instruction Type:Patient Education How to access health informa tion online - Detail Indication:BMI 25.0-25.9,adult Start:26-Mar-2017 Instruction Type:Patient Education Patient Instructions Indication:Chronic obstructive asthma with acute exacerbation (Renamed from Chronic obstructive asthma with exacerbation) Start:26-Mar-2017 Instruction Type:Provider Instructions for Treatment How to access health informa tion online Indication:Nonsmoker Start:09-Jan-2017 Instruction Type:Patient Education How to access health informa tion online - Detail Indication:Nonsmoker Start:09-Jan-2017 Instruction Type:Patient Education Patient Instructions Indication:Nonsmoker Start:09-Jan-2017 Instruction Type:Provider Instructions for Treatment How to access health informa tion online Indication:Abnormal glucose tolerance test Start:02-Jan-2017 Instruction Type:Patient Education How to access health informa tion online - Detail Indication:Abnormal glucose tolerance test Start:02-Jan-2017 Instruction Type:Patient Education Patient Instructions Indication:Abnormal glucose tolerance test Start:02-Jan-2017 Instruction Type:Provider Instructions for Treatment How to access health informa tion online Indication:Cough Start:14-Mar-2016 Instruction Type:Patient Education How to access health informa tion online - Detail Indication:Cough Start:14-Mar-2016 Instruction Type:Patient Education Patient Instructions Indication:Cough Start:14-Mar-2016 Instruction Type:Provider Instructions for Treatment How to access health informa tion online Indication:Cough Start:31-Jan-2015 Instruction Type:Patient Education How to access health informa tion online - Detail Indication:Cough Start:31-Jan-2015 Instruction Type:Patient Education Patient Instructions Indication:Cough Start:31-Jan-2015 Instruction Type:Provider Instructions for Treatment Name Dates Details How to access health informa tion online Indication:Nonsmoker Start:29-Jul-2018 Instruction Type:Patient Education How to access health informa tion online - Detail Indication:Nonsmoker Start:29-Jul-2018 Instruction Type:Patient Education Patient Instructions Indication:Nonsmoker Start:29-Jul-2018 Instruction Type:Provider Instructions for Treatment How to access health informa tion online Indication:BMI 25.0-25.9,adult Start:26-Mar-2017 Instruction Type:Patient Education How to access health informa tion online - Detail Indication:BMI 25.0-25.9,adult Start:26-Mar-2017 Instruction Type:Patient Education Patient Instructions Indication:Chronic obstructive asthma with acute exacerbation (Renamed from Chronic obstructive asthma with exacerbation) Start:26-Mar-2017 Instruction Type:Provider Instructions for Treatment How to access health informa tion online Indication:Nonsmoker Start:09-Jan-2017 Instruction Type:Patient Education How to access health informa tion online - Detail Indication:Nonsmoker Start:09-Jan-2017 Instruction Type:Patient Education Patient Instructions Indication:Nonsmoker Start:09-Jan-2017 Instruction Type:Provider Instructions for Treatment How to access health informa tion online Indication:Abnormal glucose tolerance test Start:02-Jan-2017 Instruction Type:Patient Education How to access health informa tion online - Detail Indication:Abnormal glucose tolerance test Start:02-Jan-2017 Instruction Type:Patient Education Patient Instructions Indication:Abnormal glucose tolerance test Start:02-Jan-2017 Instruction Type:Provider Instructions for Treatment How to access health informa tion online Indication:Cough Start:14-Mar-2016 Instruction Type:Patient Education How to access health informa tion online - Detail Indication:Cough Start:14-Mar-2016 Instruction Type:Patient Education Patient Instructions Indication:Cough Start:14-Mar-2016 Instruction Type:Provider Instructions for Treatment How to access health informa tion online Indication:Cough Start:31-Jan-2015 Instruction Type:Patient Education How to access health informa tion online - Detail Indication:Cough Start:31-Jan-2015 Instruction Type:Patient Education Patient Instructions Indication:Cough Start:31-Jan-2015 Instruction Type:Provider Instructions for Treatment Name Dates Details How to access health informa tion online Indication:Cough Start:08-Feb-2019 Instruction Type:Patient Education How to access health informa tion online - Detail Indication:Cough Start:08-Feb-2019 Instruction Type:Patient Education Patient Instructions Indication:Cough Start:08-Feb-2019 Instruction Type:Provider Instructions for Treatment How to access health informa tion online Indication:Nonsmoker Start:29-Jul-2018 Instruction Type:Patient Education How to access health informa tion online - Detail Indication:Nonsmoker Start:29-Jul-2018 Instruction Type:Patient Education Patient Instructions Indication:Nonsmoker Start:29-Jul-2018 Instruction Type:Provider Instructions for Treatment How to access health informa tion online Indication:BMI 25.0-25.9,adult Start:26-Mar-2017 Instruction Type:Patient Education How to access health informa tion online - Detail Indication:BMI 25.0-25.9,adult Start:26-Mar-2017 Instruction Type:Patient Education Patient Instructions Indication:Chronic obstructive asthma with acute exacerbation (Renamed from Chronic obstructive asthma with exacerbation) Start:26-Mar-2017 Instruction Type:Provider Instructions for Treatment How to access health informa tion online Indication:Nonsmoker Start:09-Jan-2017 Instruction Type:Patient Education How to access health informa tion online - Detail Indication:Nonsmoker Start:09-Jan-2017 Instruction Type:Patient Education Patient Instructions Indication:Nonsmoker Start:09-Jan-2017 Instruction Type:Provider Instructions for Treatment How to access health informa tion online Indication:Abnormal glucose tolerance test Start:02-Jan-2017 Instruction Type:Patient Education How to access health informa tion online - Detail Indication:Abnormal glucose tolerance test Start:02-Jan-2017 Instruction Type:Patient Education Patient Instructions Indication:Abnormal glucose tolerance test Start:02-Jan-2017 Instruction Type:Provider Instructions for Treatment How to access health informa tion online Indication:Cough Start:14-Mar-2016 Instruction Type:Patient Education How to access health informa tion online - Detail Indication:Cough Start:14-Mar-2016 Instruction Type:Patient Education Patient Instructions Indication:Cough Start:14-Mar-2016 Instruction Type:Provider Instructions for Treatment How to access health informa tion online Indication:Cough Start:31-Jan-2015 Instruction Type:Patient Education How to access health informa tion online - Detail Indication:Cough Start:31-Jan-2015 Instruction Type:Patient Education Patient Instructions Indication:Cough Start:31-Jan-2015 Instruction Type:Provider Instructions for Treatment Name Dates Details How to access health informa tion online Indication:Non-smoker Start:24-Oct-2019 Instruction Type:Patient Education How to access health informa tion online - Detail Indication:Non-smoker Start:24-Oct-2019 Instruction Type:Patient Education Patient Instructions Indication:BMI 27.0-27.9,adult Start:24-Oct-2019 Instruction Type:Provider Instructions for Treatment How to access health informa tion online Indication:Non-smoker Start:25-Aug-2019 Instruction Type:Patient Education How to access health informa tion online - Detail Indication:Non-smoker Start:25-Aug-2019 Instruction Type:Patient Education Patient Instructions Indication:Non-smoker Start:25-Aug-2019 Instruction Type:Provider Instructions for Treatment How to access health informa tion online Indication:Non-smoker Start:12-May-2019 Instruction Type:Patient Education How to access health informa tion online - Detail Indication:Non-smoker Start:12-May-2019 Instruction Type:Patient Education Patient Instructions Indication:Non-smoker Start:12-May-2019 Instruction Type:Provider Instructions for Treatment How to access health informa tion online Indication:Non-smoker Start:02-May-2019 Instruction Type:Patient Education How to access health informa tion online - Detail Indication:Non-smoker Start:02-May-2019 Instruction Type:Patient Education Patient Instructions Indication:Non-smoker Start:02-May-2019 Instruction Type:Provider Instructions for Treatment How to access health informa tion online Indication:BMI 26.0-26.9,adult Start:28-Apr-2019 Instruction Type:Patient Education How to access health informa tion online - Detail Indication:BMI 26.0-26.9,adult Start:28-Apr-2019 Instruction Type:Patient Education Patient Instructions Indication:BMI 26.0-26.9,adult Start:28-Apr-2019 Instruction Type:Provider Instructions for Treatment How to access health informa tion online Indication:Cough Start:26-Apr-2019 Instruction Type:Patient Education How to access health informa tion online - Detail Indication:Cough Start:26-Apr-2019 Instruction Type:Patient Education Patient Instructions Indication:Cough Start:26-Apr-2019 Instruction Type:Provider Instructions for Treatment How to access health informa tion online Indication:Nasal congestion Start:12-Apr-2019 Instruction Type:Patient Education How to access health informa tion online - Detail Indication:Nasal congestion Start:12-Apr-2019 Instruction Type:Patient Education Patient Instructions Indication:Nasal congestion Start:12-Apr-2019 Instruction Type:Provider Instructions for Treatment How to access health informa tion online Indication:Cough Start:08-Feb-2019 Instruction Type:Patient Education How to access health informa tion online - Detail Indication:Cough Start:08-Feb-2019 Instruction Type:Patient Education Patient Instructions Indication:Cough Start:08-Feb-2019 Instruction Type:Provider Instructions for Treatment How to access health informa tion online Indication:Nonsmoker Start:29-Jul-2018 Instruction Type:Patient Education How to access health informa tion online - Detail Indication:Nonsmoker Start:29-Jul-2018 Instruction Type:Patient Education Patient Instructions Indication:Nonsmoker Start:29-Jul-2018 Instruction Type:Provider Instructions for Treatment How to access health informa tion online Indication:BMI 25.0-25.9,adult Start:26-Mar-2017 Instruction Type:Patient Education How to access health informa tion online - Detail Indication:BMI 25.0-25.9,adult Start:26-Mar-2017 Instruction Type:Patient Education Patient Instructions Indication:Chronic obstructive asthma with acute exacerbation (Renamed from Chronic obstructive asthma with exacerbation) Start:26-Mar-2017 Instruction Type:Provider Instructions for Treatment How to access health informa tion online Indication:Nonsmoker Start:09-Jan-2017 Instruction Type:Patient Education How to access health informa tion online - Detail Indication:Nonsmoker Start:09-Jan-2017 Instruction Type:Patient Education Patient Instructions Indication:Nonsmoker Start:09-Jan-2017 Instruction Type:Provider Instructions for Treatment How to access health informa tion online Indication:Abnormal glucose tolerance test Start:02-Jan-2017 Instruction Type:Patient Education How to access health informa tion online - Detail Indication:Abnormal glucose tolerance test Start:02-Jan-2017 Instruction Type:Patient Education Patient Instructions Indication:Abnormal glucose tolerance test Start:02-Jan-2017 Instruction Type:Provider Instructions for Treatment How to access health informa tion online Indication:Cough Start:14-Mar-2016 Instruction Type:Patient Education How to access health informa tion online - Detail Indication:Cough Start:14-Mar-2016 Instruction Type:Patient Education Patient Instructions Indication:Cough Start:14-Mar-2016 Instruction Type:Provider Instructions for Treatment How to access health informa tion online Indication:Cough Start:31-Jan-2015 Instruction Type:Patient Education How to access health informa tion online - Detail Indication:Cough Start:31-Jan-2015 Instruction Type:Patient Education Patient Instructions Indication:Cough Start:31-Jan-2015 Instruction Type:Provider Instructions for Treatment Name Dates Details How to access health informa tion online Indication:Non-smoker Start:24-Oct-2019 Instruction Type:Patient Education How to access health informa tion online - Detail Indication:Non-smoker Start:24-Oct-2019 Instruction Type:Patient Education Patient Instructions Indication:BMI 27.0-27.9,adult Start:24-Oct-2019 Instruction Type:Provider Instructions for Treatment How to access health informa tion online Indication:Non-smoker Start:25-Aug-2019 Instruction Type:Patient Education How to access health informa tion online - Detail Indication:Non-smoker Start:25-Aug-2019 Instruction Type:Patient Education Patient Instructions Indication:Non-smoker Start:25-Aug-2019 Instruction Type:Provider Instructions for Treatment How to access health informa tion online Indication:Non-smoker Start:12-May-2019 Instruction Type:Patient Education How to access health informa tion online - Detail Indication:Non-smoker Start:12-May-2019 Instruction Type:Patient Education Patient Instructions Indication:Non-smoker Start:12-May-2019 Instruction Type:Provider Instructions for Treatment How to access health informa tion online Indication:Non-smoker Start:02-May-2019 Instruction Type:Patient Education How to access health informa tion online - Detail Indication:Non-smoker Start:02-May-2019 Instruction Type:Patient Education Patient Instructions Indication:Non-smoker Start:02-May-2019 Instruction Type:Provider Instructions for Treatment How to access health informa tion online Indication:BMI 26.0-26.9,adult Start:28-Apr-2019 Instruction Type:Patient Education How to access health informa tion online - Detail Indication:BMI 26.0-26.9,adult Start:28-Apr-2019 Instruction Type:Patient Education Patient Instructions Indication:BMI 26.0-26.9,adult Start:28-Apr-2019 Instruction Type:Provider Instructions for Treatment How to access health informa tion online Indication:Cough Start:26-Apr-2019 Instruction Type:Patient Education How to access health informa tion online - Detail Indication:Cough Start:26-Apr-2019 Instruction Type:Patient Education Patient Instructions Indication:Cough Start:26-Apr-2019 Instruction Type:Provider Instructions for Treatment How to access health informa tion online Indication:Nasal congestion Start:12-Apr-2019 Instruction Type:Patient Education How to access health informa tion online - Detail Indication:Nasal congestion Start:12-Apr-2019 Instruction Type:Patient Education Patient Instructions Indication:Nasal congestion Start:12-Apr-2019 Instruction Type:Provider Instructions for Treatment How to access health informa tion online Indication:Cough Start:08-Feb-2019 Instruction Type:Patient Education How to access health informa tion online - Detail Indication:Cough Start:08-Feb-2019 Instruction Type:Patient Education Patient Instructions Indication:Cough Start:08-Feb-2019 Instruction Type:Provider Instructions for Treatment How to access health informa tion online Indication:Nonsmoker Start:29-Jul-2018 Instruction Type:Patient Education How to access health informa tion online - Detail Indication:Nonsmoker Start:29-Jul-2018 Instruction Type:Patient Education Patient Instructions Indication:Nonsmoker Start:29-Jul-2018 Instruction Type:Provider Instructions for Treatment How to access health informa tion online Indication:BMI 25.0-25.9,adult Start:26-Mar-2017 Instruction Type:Patient Education How to access health informa tion online - Detail Indication:BMI 25.0-25.9,adult Start:26-Mar-2017 Instruction Type:Patient Education Patient Instructions Indication:Chronic obstructive asthma with acute exacerbation (Renamed from Chronic obstructive asthma with exacerbation) Start:26-Mar-2017 Instruction Type:Provider Instructions for Treatment How to access health informa tion online Indication:Nonsmoker Start:09-Jan-2017 Instruction Type:Patient Education How to access health informa tion online - Detail Indication:Nonsmoker Start:09-Jan-2017 Instruction Type:Patient Education Patient Instructions Indication:Nonsmoker Start:09-Jan-2017 Instruction Type:Provider Instructions for Treatment How to access health informa tion online Indication:Abnormal glucose tolerance test Start:02-Jan-2017 Instruction Type:Patient Education How to access health informa tion online - Detail Indication:Abnormal glucose tolerance test Start:02-Jan-2017 Instruction Type:Patient Education Patient Instructions Indication:Abnormal glucose tolerance test Start:02-Jan-2017 Instruction Type:Provider Instructions for Treatment How to access health informa tion online Indication:Cough Start:14-Mar-2016 Instruction Type:Patient Education How to access health informa tion online - Detail Indication:Cough Start:14-Mar-2016 Instruction Type:Patient Education Patient Instructions Indication:Cough Start:14-Mar-2016 Instruction Type:Provider Instructions for Treatment How to access health informa tion online Indication:Cough Start:31-Jan-2015 Instruction Type:Patient Education How to access health informa tion online - Detail Indication:Cough Start:31-Jan-2015 Instruction Type:Patient Education Patient Instructions Indication:Cough Start:31-Jan-2015 Instruction Type:Provider Instructions for Treatment Name Dates Details How to access health informa tion online Indication:Non-smoker Start:24-Oct-2019 Instruction Type:Patient Education How to access health informa tion online - Detail Indication:Non-smoker Start:24-Oct-2019 Instruction Type:Patient Education Patient Instructions Indication:BMI 27.0-27.9,adult Start:24-Oct-2019 Instruction Type:Provider Instructions for Treatment How to access health informa tion online Indication:Non-smoker Start:25-Aug-2019 Instruction Type:Patient Education How to access health informa tion online - Detail Indication:Non-smoker Start:25-Aug-2019 Instruction Type:Patient Education Patient Instructions Indication:Non-smoker Start:25-Aug-2019 Instruction Type:Provider Instructions for Treatment How to access health informa tion online Indication:Non-smoker Start:12-May-2019 Instruction Type:Patient Education How to access health informa tion online - Detail Indication:Non-smoker Start:12-May-2019 Instruction Type:Patient Education Patient Instructions Indication:Non-smoker Start:12-May-2019 Instruction Type:Provider Instructions for Treatment How to access health informa tion online Indication:Non-smoker Start:02-May-2019 Instruction Type:Patient Education How to access health informa tion online - Detail Indication:Non-smoker Start:02-May-2019 Instruction Type:Patient Education Patient Instructions Indication:Non-smoker Start:02-May-2019 Instruction Type:Provider Instructions for Treatment How to access health informa tion online Indication:BMI 26.0-26.9,adult Start:28-Apr-2019 Instruction Type:Patient Education How to access health informa tion online - Detail Indication:BMI 26.0-26.9,adult Start:28-Apr-2019 Instruction Type:Patient Education Patient Instructions Indication:BMI 26.0-26.9,adult Start:28-Apr-2019 Instruction Type:Provider Instructions for Treatment How to access health informa tion online Indication:Cough Start:26-Apr-2019 Instruction Type:Patient Education How to access health informa tion online - Detail Indication:Cough Start:26-Apr-2019 Instruction Type:Patient Education Patient Instructions Indication:Cough Start:26-Apr-2019 Instruction Type:Provider Instructions for Treatment How to access health informa tion online Indication:Nasal congestion Start:12-Apr-2019 Instruction Type:Patient Education How to access health informa tion online - Detail Indication:Nasal congestion Start:12-Apr-2019 Instruction Type:Patient Education Patient Instructions Indication:Nasal congestion Start:12-Apr-2019 Instruction Type:Provider Instructions for Treatment How to access health informa tion online Indication:Cough Start:08-Feb-2019 Instruction Type:Patient Education How to access health informa tion online - Detail Indication:Cough Start:08-Feb-2019 Instruction Type:Patient Education Patient Instructions Indication:Cough Start:08-Feb-2019 Instruction Type:Provider Instructions for Treatment How to access health informa tion online Indication:Nonsmoker Start:29-Jul-2018 Instruction Type:Patient Education How to access health informa tion online - Detail Indication:Nonsmoker Start:29-Jul-2018 Instruction Type:Patient Education Patient Instructions Indication:Nonsmoker Start:29-Jul-2018 Instruction Type:Provider Instructions for Treatment How to access health informa tion online Indication:BMI 25.0-25.9,adult Start:26-Mar-2017 Instruction Type:Patient Education How to access health informa tion online - Detail Indication:BMI 25.0-25.9,adult Start:26-Mar-2017 Instruction Type:Patient Education Patient Instructions Indication:Chronic obstructive asthma with acute exacerbation (Renamed from Chronic obstructive asthma with exacerbation) Start:26-Mar-2017 Instruction Type:Provider Instructions for Treatment How to access health informa tion online Indication:Nonsmoker Start:09-Jan-2017 Instruction Type:Patient Education How to access health informa tion online - Detail Indication:Nonsmoker Start:09-Jan-2017 Instruction Type:Patient Education Patient Instructions Indication:Nonsmoker Start:09-Jan-2017 Instruction Type:Provider Instructions for Treatment How to access health informa tion online Indication:Abnormal glucose tolerance test Start:02-Jan-2017 Instruction Type:Patient Education How to access health informa tion online - Detail Indication:Abnormal glucose tolerance test Start:02-Jan-2017 Instruction Type:Patient Education Patient Instructions Indication:Abnormal glucose tolerance test Start:02-Jan-2017 Instruction Type:Provider Instructions for Treatment How to access health informa tion online Indication:Cough Start:14-Mar-2016 Instruction Type:Patient Education How to access health informa tion online - Detail Indication:Cough Start:14-Mar-2016 Instruction Type:Patient Education Patient Instructions Indication:Cough Start:14-Mar-2016 Instruction Type:Provider Instructions for Treatment How to access health informa tion online Indication:Cough Start:31-Jan-2015 Instruction Type:Patient Education How to access health informa tion online - Detail Indication:Cough Start:31-Jan-2015 Instruction Type:Patient Education Patient Instructions Indication:Cough Start:31-Jan-2015 Instruction Type:Provider Instructions for Treatment Name Dates Details How to access health informa tion online Indication:Non-smoker Start:24-Oct-2019 Instruction Type:Patient Education How to access health informa tion online - Detail Indication:Non-smoker Start:24-Oct-2019 Instruction Type:Patient Education Patient Instructions Indication:BMI 27.0-27.9,adult Start:24-Oct-2019 Instruction Type:Provider Instructions for Treatment How to access health informa tion online Indication:Non-smoker Start:25-Aug-2019 Instruction Type:Patient Education How to access health informa tion online - Detail Indication:Non-smoker Start:25-Aug-2019 Instruction Type:Patient Education Patient Instructions Indication:Non-smoker Start:25-Aug-2019 Instruction Type:Provider Instructions for Treatment How to access health informa tion online Indication:Non-smoker Start:12-May-2019 Instruction Type:Patient Education How to access health informa tion online - Detail Indication:Non-smoker Start:12-May-2019 Instruction Type:Patient Education Patient Instructions Indication:Non-smoker Start:12-May-2019 Instruction Type:Provider Instructions for Treatment How to access health informa tion online Indication:Non-smoker Start:02-May-2019 Instruction Type:Patient Education How to access health informa tion online - Detail Indication:Non-smoker Start:02-May-2019 Instruction Type:Patient Education Patient Instructions Indication:Non-smoker Start:02-May-2019 Instruction Type:Provider Instructions for Treatment How to access health informa tion online Indication:BMI 26.0-26.9,adult Start:28-Apr-2019 Instruction Type:Patient Education How to access health informa tion online - Detail Indication:BMI 26.0-26.9,adult Start:28-Apr-2019 Instruction Type:Patient Education Patient Instructions Indication:BMI 26.0-26.9,adult Start:28-Apr-2019 Instruction Type:Provider Instructions for Treatment How to access health informa tion online Indication:Cough Start:26-Apr-2019 Instruction Type:Patient Education How to access health informa tion online - Detail Indication:Cough Start:26-Apr-2019 Instruction Type:Patient Education Patient Instructions Indication:Cough Start:26-Apr-2019 Instruction Type:Provider Instructions for Treatment How to access health informa tion online Indication:Nasal congestion Start:12-Apr-2019 Instruction Type:Patient Education How to access health informa tion online - Detail Indication:Nasal congestion Start:12-Apr-2019 Instruction Type:Patient Education Patient Instructions Indication:Nasal congestion Start:12-Apr-2019 Instruction Type:Provider Instructions for Treatment How to access health informa tion online Indication:Cough Start:08-Feb-2019 Instruction Type:Patient Education How to access health informa tion online - Detail Indication:Cough Start:08-Feb-2019 Instruction Type:Patient Education Patient Instructions Indication:Cough Start:08-Feb-2019 Instruction Type:Provider Instructions for Treatment How to access health informa tion online Indication:Nonsmoker Start:29-Jul-2018 Instruction Type:Patient Education How to access health informa tion online - Detail Indication:Nonsmoker Start:29-Jul-2018 Instruction Type:Patient Education Patient Instructions Indication:Nonsmoker Start:29-Jul-2018 Instruction Type:Provider Instructions for Treatment How to access health informa tion online Indication:BMI 25.0-25.9,adult Start:26-Mar-2017 Instruction Type:Patient Education How to access health informa tion online - Detail Indication:BMI 25.0-25.9,adult Start:26-Mar-2017 Instruction Type:Patient Education Patient Instructions Indication:Chronic obstructive asthma with acute exacerbation (Renamed from Chronic obstructive asthma with exacerbation) Start:26-Mar-2017 Instruction Type:Provider Instructions for Treatment How to access health informa tion online Indication:Nonsmoker Start:09-Jan-2017 Instruction Type:Patient Education How to access health informa tion online - Detail Indication:Nonsmoker Start:09-Jan-2017 Instruction Type:Patient Education Patient Instructions Indication:Nonsmoker Start:09-Jan-2017 Instruction Type:Provider Instructions for Treatment How to access health informa tion online Indication:Abnormal glucose tolerance test Start:02-Jan-2017 Instruction Type:Patient Education How to access health informa tion online - Detail Indication:Abnormal glucose tolerance test Start:02-Jan-2017 Instruction Type:Patient Education Patient Instructions Indication:Abnormal glucose tolerance test Start:02-Jan-2017 Instruction Type:Provider Instructions for Treatment How to access health informa tion online Indication:Cough Start:14-Mar-2016 Instruction Type:Patient Education How to access health informa tion online - Detail Indication:Cough Start:14-Mar-2016 Instruction Type:Patient Education Patient Instructions Indication:Cough Start:14-Mar-2016 Instruction Type:Provider Instructions for Treatment How to access health informa tion online Indication:Cough Start:31-Jan-2015 Instruction Type:Patient Education How to access health informa tion online - Detail Indication:Cough Start:31-Jan-2015 Instruction Type:Patient Education Patient Instructions Indication:Cough Start:31-Jan-2015 Instruction Type:Provider Instructions for Treatment Name Dates Details How to access health informa tion online Indication:BMI 27.0-27.9,adult Start:16-Jan-2020 Instruction Type:Patient Education How to access health informa tion online - Detail Indication:BMI 27.0-27.9,adult Start:16-Jan-2020 Instruction Type:Patient Education Patient Instructions Indication:BMI 27.0-27.9,adult Start:16-Jan-2020 Instruction Type:Provider Instructions for Treatment How to access health informa tion online Indication:Non-smoker Start:24-Oct-2019 Instruction Type:Patient Education How to access health informa tion online - Detail Indication:Non-smoker Start:24-Oct-2019 Instruction Type:Patient Education Patient Instructions Indication:BMI 27.0-27.9,adult Start:24-Oct-2019 Instruction Type:Provider Instructions for Treatment How to access health informa tion online Indication:Non-smoker Start:25-Aug-2019 Instruction Type:Patient Education How to access health informa tion online - Detail Indication:Non-smoker Start:25-Aug-2019 Instruction Type:Patient Education Patient Instructions Indication:Non-smoker Start:25-Aug-2019 Instruction Type:Provider Instructions for Treatment How to access health informa tion online Indication:Non-smoker Start:12-May-2019 Instruction Type:Patient Education How to access health informa tion online - Detail Indication:Non-smoker Start:12-May-2019 Instruction Type:Patient Education Patient Instructions Indication:Non-smoker Start:12-May-2019 Instruction Type:Provider Instructions for Treatment How to access health informa tion online Indication:Non-smoker Start:02-May-2019 Instruction Type:Patient Education How to access health informa tion online - Detail Indication:Non-smoker Start:02-May-2019 Instruction Type:Patient Education Patient Instructions Indication:Non-smoker Start:02-May-2019 Instruction Type:Provider Instructions for Treatment How to access health informa tion online Indication:BMI 26.0-26.9,adult Start:28-Apr-2019 Instruction Type:Patient Education How to access health informa tion online - Detail Indication:BMI 26.0-26.9,adult Start:28-Apr-2019 Instruction Type:Patient Education Patient Instructions Indication:BMI 26.0-26.9,adult Start:28-Apr-2019 Instruction Type:Provider Instructions for Treatment How to access health informa tion online Indication:Cough Start:26-Apr-2019 Instruction Type:Patient Education How to access health informa tion online - Detail Indication:Cough Start:26-Apr-2019 Instruction Type:Patient Education Patient Instructions Indication:Cough Start:26-Apr-2019 Instruction Type:Provider Instructions for Treatment How to access health informa tion online Indication:Nasal congestion Start:12-Apr-2019 Instruction Type:Patient Education How to access health informa tion online - Detail Indication:Nasal congestion Start:12-Apr-2019 Instruction Type:Patient Education Patient Instructions Indication:Nasal congestion Start:12-Apr-2019 Instruction Type:Provider Instructions for Treatment How to access health informa tion online Indication:Cough Start:08-Feb-2019 Instruction Type:Patient Education How to access health informa tion online - Detail Indication:Cough Start:08-Feb-2019 Instruction Type:Patient Education Patient Instructions Indication:Cough Start:08-Feb-2019 Instruction Type:Provider Instructions for Treatment How to access health informa tion online Indication:Nonsmoker Start:29-Jul-2018 Instruction Type:Patient Education How to access health informa tion online - Detail Indication:Nonsmoker Start:29-Jul-2018 Instruction Type:Patient Education Patient Instructions Indication:Nonsmoker Start:29-Jul-2018 Instruction Type:Provider Instructions for Treatment How to access health informa tion online Indication:BMI 25.0-25.9,adult Start:26-Mar-2017 Instruction Type:Patient Education How to access health informa tion online - Detail Indication:BMI 25.0-25.9,adult Start:26-Mar-2017 Instruction Type:Patient Education Patient Instructions Indication:Chronic obstructive asthma with acute exacerbation (Renamed from Chronic obstructive asthma with exacerbation) Start:26-Mar-2017 Instruction Type:Provider Instructions for Treatment How to access health informa tion online Indication:Nonsmoker Start:09-Jan-2017 Instruction Type:Patient Education How to access health informa tion online - Detail Indication:Nonsmoker Start:09-Jan-2017 Instruction Type:Patient Education Patient Instructions Indication:Nonsmoker Start:09-Jan-2017 Instruction Type:Provider Instructions for Treatment How to access health informa tion online Indication:Abnormal glucose tolerance test Start:02-Jan-2017 Instruction Type:Patient Education How to access health informa tion online - Detail Indication:Abnormal glucose tolerance test Start:02-Jan-2017 Instruction Type:Patient Education Patient Instructions Indication:Abnormal glucose tolerance test Start:02-Jan-2017 Instruction Type:Provider Instructions for Treatment How to access health informa tion online Indication:Cough Start:14-Mar-2016 Instruction Type:Patient Education How to access health informa tion online - Detail Indication:Cough Start:14-Mar-2016 Instruction Type:Patient Education Patient Instructions Indication:Cough Start:14-Mar-2016 Instruction Type:Provider Instructions for Treatment How to access health informa tion online Indication:Cough Start:31-Jan-2015 Instruction Type:Patient Education How to access health informa tion online - Detail Indication:Cough Start:31-Jan-2015 Instruction Type:Patient Education Patient Instructions Indication:Cough Start:31-Jan-2015 Instruction Type:Provider Instructions for Treatment Name Dates Details How to access health informa tion online Indication:BMI 27.0-27.9,adult Start:16-Jan-2020 Instruction Type:Patient Education How to access health informa tion online - Detail Indication:BMI 27.0-27.9,adult Start:16-Jan-2020 Instruction Type:Patient Education Patient Instructions Indication:BMI 27.0-27.9,adult Start:16-Jan-2020 Instruction Type:Provider Instructions for Treatment How to access health informa tion online Indication:Non-smoker Start:24-Oct-2019 Instruction Type:Patient Education How to access health informa tion online - Detail Indication:Non-smoker Start:24-Oct-2019 Instruction Type:Patient Education Patient Instructions Indication:BMI 27.0-27.9,adult Start:24-Oct-2019 Instruction Type:Provider Instructions for Treatment How to access health informa tion online Indication:Non-smoker Start:25-Aug-2019 Instruction Type:Patient Education How to access health informa tion online - Detail Indication:Non-smoker Start:25-Aug-2019 Instruction Type:Patient Education Patient Instructions Indication:Non-smoker Start:25-Aug-2019 Instruction Type:Provider Instructions for Treatment How to access health informa tion online Indication:Non-smoker Start:12-May-2019 Instruction Type:Patient Education How to access health informa tion online - Detail Indication:Non-smoker Start:12-May-2019 Instruction Type:Patient Education Patient Instructions Indication:Non-smoker Start:12-May-2019 Instruction Type:Provider Instructions for Treatment How to access health informa tion online Indication:Non-smoker Start:02-May-2019 Instruction Type:Patient Education How to access health informa tion online - Detail Indication:Non-smoker Start:02-May-2019 Instruction Type:Patient Education Patient Instructions Indication:Non-smoker Start:02-May-2019 Instruction Type:Provider Instructions for Treatment How to access health informa tion online Indication:BMI 26.0-26.9,adult Start:28-Apr-2019 Instruction Type:Patient Education How to access health informa tion online - Detail Indication:BMI 26.0-26.9,adult Start:28-Apr-2019 Instruction Type:Patient Education Patient Instructions Indication:BMI 26.0-26.9,adult Start:28-Apr-2019 Instruction Type:Provider Instructions for Treatment How to access health informa tion online Indication:Cough Start:26-Apr-2019 Instruction Type:Patient Education How to access health informa tion online - Detail Indication:Cough Start:26-Apr-2019 Instruction Type:Patient Education Patient Instructions Indication:Cough Start:26-Apr-2019 Instruction Type:Provider Instructions for Treatment How to access health informa tion online Indication:Nasal congestion Start:12-Apr-2019 Instruction Type:Patient Education How to access health informa tion online - Detail Indication:Nasal congestion Start:12-Apr-2019 Instruction Type:Patient Education Patient Instructions Indication:Nasal congestion Start:12-Apr-2019 Instruction Type:Provider Instructions for Treatment How to access health informa tion online Indication:Cough Start:08-Feb-2019 Instruction Type:Patient Education How to access health informa tion online - Detail Indication:Cough Start:08-Feb-2019 Instruction Type:Patient Education Patient Instructions Indication:Cough Start:08-Feb-2019 Instruction Type:Provider Instructions for Treatment How to access health informa tion online Indication:Nonsmoker Start:29-Jul-2018 Instruction Type:Patient Education How to access health informa tion online - Detail Indication:Nonsmoker Start:29-Jul-2018 Instruction Type:Patient Education Patient Instructions Indication:Nonsmoker Start:29-Jul-2018 Instruction Type:Provider Instructions for Treatment How to access health informa tion online Indication:BMI 25.0-25.9,adult Start:26-Mar-2017 Instruction Type:Patient Education How to access health informa tion online - Detail Indication:BMI 25.0-25.9,adult Start:26-Mar-2017 Instruction Type:Patient Education Patient Instructions Indication:Chronic obstructive asthma with acute exacerbation (Renamed from Chronic obstructive asthma with exacerbation) Start:26-Mar-2017 Instruction Type:Provider Instructions for Treatment How to access health informa tion online Indication:Nonsmoker Start:09-Jan-2017 Instruction Type:Patient Education How to access health informa tion online - Detail Indication:Nonsmoker Start:09-Jan-2017 Instruction Type:Patient Education Patient Instructions Indication:Nonsmoker Start:09-Jan-2017 Instruction Type:Provider Instructions for Treatment How to access health informa tion online Indication:Abnormal glucose tolerance test Start:02-Jan-2017 Instruction Type:Patient Education How to access health informa tion online - Detail Indication:Abnormal glucose tolerance test Start:02-Jan-2017 Instruction Type:Patient Education Patient Instructions Indication:Abnormal glucose tolerance test Start:02-Jan-2017 Instruction Type:Provider Instructions for Treatment How to access health informa tion online Indication:Cough Start:14-Mar-2016 Instruction Type:Patient Education How to access health informa tion online - Detail Indication:Cough Start:14-Mar-2016 Instruction Type:Patient Education Patient Instructions Indication:Cough Start:14-Mar-2016 Instruction Type:Provider Instructions for Treatment How to access health informa tion online Indication:Cough Start:31-Jan-2015 Instruction Type:Patient Education How to access health informa tion online - Detail Indication:Cough Start:31-Jan-2015 Instruction Type:Patient Education Patient Instructions Indication:Cough Start:31-Jan-2015 Instruction Type:Provider Instructions for Treatment Name Dates Details How to access health informa tion online Indication:BMI 27.0-27.9,adult Start:16-Jan-2020 Instruction Type:Patient Education How to access health informa tion online - Detail Indication:BMI 27.0-27.9,adult Start:16-Jan-2020 Instruction Type:Patient Education Patient Instructions Indication:BMI 27.0-27.9,adult Start:16-Jan-2020 Instruction Type:Provider Instructions for Treatment How to access health informa tion online Indication:Non-smoker Start:24-Oct-2019 Instruction Type:Patient Education How to access health informa tion online - Detail Indication:Non-smoker Start:24-Oct-2019 Instruction Type:Patient Education Patient Instructions Indication:BMI 27.0-27.9,adult Start:24-Oct-2019 Instruction Type:Provider Instructions for Treatment How to access health informa tion online Indication:Non-smoker Start:25-Aug-2019 Instruction Type:Patient Education How to access health informa tion online - Detail Indication:Non-smoker Start:25-Aug-2019 Instruction Type:Patient Education Patient Instructions Indication:Non-smoker Start:25-Aug-2019 Instruction Type:Provider Instructions for Treatment How to access health informa tion online Indication:Non-smoker Start:12-May-2019 Instruction Type:Patient Education How to access health informa tion online - Detail Indication:Non-smoker Start:12-May-2019 Instruction Type:Patient Education Patient Instructions Indication:Non-smoker Start:12-May-2019 Instruction Type:Provider Instructions for Treatment How to access health informa tion online Indication:Non-smoker Start:02-May-2019 Instruction Type:Patient Education How to access health informa tion online - Detail Indication:Non-smoker Start:02-May-2019 Instruction Type:Patient Education Patient Instructions Indication:Non-smoker Start:02-May-2019 Instruction Type:Provider Instructions for Treatment How to access health informa tion online Indication:BMI 26.0-26.9,adult Start:28-Apr-2019 Instruction Type:Patient Education How to access health informa tion online - Detail Indication:BMI 26.0-26.9,adult Start:28-Apr-2019 Instruction Type:Patient Education Patient Instructions Indication:BMI 26.0-26.9,adult Start:28-Apr-2019 Instruction Type:Provider Instructions for Treatment How to access health informa tion online Indication:Cough Start:26-Apr-2019 Instruction Type:Patient Education How to access health informa tion online - Detail Indication:Cough Start:26-Apr-2019 Instruction Type:Patient Education Patient Instructions Indication:Cough Start:26-Apr-2019 Instruction Type:Provider Instructions for Treatment How to access health informa tion online Indication:Nasal congestion Start:12-Apr-2019 Instruction Type:Patient Education How to access health informa tion online - Detail Indication:Nasal congestion Start:12-Apr-2019 Instruction Type:Patient Education Patient Instructions Indication:Nasal congestion Start:12-Apr-2019 Instruction Type:Provider Instructions for Treatment How to access health informa tion online Indication:Cough Start:08-Feb-2019 Instruction Type:Patient Education How to access health informa tion online - Detail Indication:Cough Start:08-Feb-2019 Instruction Type:Patient Education Patient Instructions Indication:Cough Start:08-Feb-2019 Instruction Type:Provider Instructions for Treatment How to access health informa tion online Indication:Nonsmoker Start:29-Jul-2018 Instruction Type:Patient Education How to access health informa tion online - Detail Indication:Nonsmoker Start:29-Jul-2018 Instruction Type:Patient Education Patient Instructions Indication:Nonsmoker Start:29-Jul-2018 Instruction Type:Provider Instructions for Treatment How to access health informa tion online Indication:BMI 25.0-25.9,adult Start:26-Mar-2017 Instruction Type:Patient Education How to access health informa tion online - Detail Indication:BMI 25.0-25.9,adult Start:26-Mar-2017 Instruction Type:Patient Education Patient Instructions Indication:Chronic obstructive asthma with acute exacerbation (Renamed from Chronic obstructive asthma with exacerbation) Start:26-Mar-2017 Instruction Type:Provider Instructions for Treatment How to access health informa tion online Indication:Nonsmoker Start:09-Jan-2017 Instruction Type:Patient Education How to access health informa tion online - Detail Indication:Nonsmoker Start:09-Jan-2017 Instruction Type:Patient Education Patient Instructions Indication:Nonsmoker Start:09-Jan-2017 Instruction Type:Provider Instructions for Treatment How to access health informa tion online Indication:Abnormal glucose tolerance test Start:02-Jan-2017 Instruction Type:Patient Education How to access health informa tion online - Detail Indication:Abnormal glucose tolerance test Start:02-Jan-2017 Instruction Type:Patient Education Patient Instructions Indication:Abnormal glucose tolerance test Start:02-Jan-2017 Instruction Type:Provider Instructions for Treatment How to access health informa tion online Indication:Cough Start:14-Mar-2016 Instruction Type:Patient Education How to access health informa tion online - Detail Indication:Cough Start:14-Mar-2016 Instruction Type:Patient Education Patient Instructions Indication:Cough Start:14-Mar-2016 Instruction Type:Provider Instructions for Treatment How to access health informa tion online Indication:Cough Start:31-Jan-2015 Instruction Type:Patient Education How to access health informa tion online - Detail Indication:Cough Start:31-Jan-2015 Instruction Type:Patient Education Patient Instructions Indication:Cough Start:31-Jan-2015 Instruction Type:Provider Instructions for Treatment Name Dates Details How to access health informa tion online Indication:Non-smoker Start:24-Oct-2019 Instruction Type:Patient Education How to access health informa tion online - Detail Indication:Non-smoker Start:24-Oct-2019 Instruction Type:Patient Education Patient Instructions Indication:Non-smoker Start:24-Oct-2019 Instruction Type:Provider Instructions for Treatment How to access health informa tion online Indication:Non-smoker Start:25-Aug-2019 Instruction Type:Patient Education How to access health informa tion online - Detail Indication:Non-smoker Start:25-Aug-2019 Instruction Type:Patient Education Patient Instructions Indication:Non-smoker Start:25-Aug-2019 Instruction Type:Provider Instructions for Treatment How to access health informa tion online Indication:Non-smoker Start:12-May-2019 Instruction Type:Patient Education How to access health informa tion online - Detail Indication:Non-smoker Start:12-May-2019 Instruction Type:Patient Education Patient Instructions Indication:Non-smoker Start:12-May-2019 Instruction Type:Provider Instructions for Treatment How to access health informa tion online Indication:Non-smoker Start:02-May-2019 Instruction Type:Patient Education How to access health informa tion online - Detail Indication:Non-smoker Start:02-May-2019 Instruction Type:Patient Education Patient Instructions Indication:Non-smoker Start:02-May-2019 Instruction Type:Provider Instructions for Treatment How to access health informa tion online Indication:BMI 26.0-26.9,adult Start:28-Apr-2019 Instruction Type:Patient Education How to access health informa tion online - Detail Indication:BMI 26.0-26.9,adult Start:28-Apr-2019 Instruction Type:Patient Education Patient Instructions Indication:BMI 26.0-26.9,adult Start:28-Apr-2019 Instruction Type:Provider Instructions for Treatment How to access health informa tion online Indication:Cough Start:26-Apr-2019 Instruction Type:Patient Education How to access health informa tion online - Detail Indication:Cough Start:26-Apr-2019 Instruction Type:Patient Education Patient Instructions Indication:Cough Start:26-Apr-2019 Instruction Type:Provider Instructions for Treatment How to access health informa tion online Indication:Nasal congestion Start:12-Apr-2019 Instruction Type:Patient Education How to access health informa tion online - Detail Indication:Nasal congestion Start:12-Apr-2019 Instruction Type:Patient Education Patient Instructions Indication:Nasal congestion Start:12-Apr-2019 Instruction Type:Provider Instructions for Treatment How to access health informa tion online Indication:Cough Start:08-Feb-2019 Instruction Type:Patient Education How to access health informa tion online - Detail Indication:Cough Start:08-Feb-2019 Instruction Type:Patient Education Patient Instructions Indication:Cough Start:08-Feb-2019 Instruction Type:Provider Instructions for Treatment How to access health informa tion online Indication:Nonsmoker Start:29-Jul-2018 Instruction Type:Patient Education How to access health informa tion online - Detail Indication:Nonsmoker Start:29-Jul-2018 Instruction Type:Patient Education Patient Instructions Indication:Nonsmoker Start:29-Jul-2018 Instruction Type:Provider Instructions for Treatment How to access health informa tion online Indication:BMI 25.0-25.9,adult Start:26-Mar-2017 Instruction Type:Patient Education How to access health informa tion online - Detail Indication:BMI 25.0-25.9,adult Start:26-Mar-2017 Instruction Type:Patient Education Patient Instructions Indication:Chronic obstructive asthma with acute exacerbation (Renamed from Chronic obstructive asthma with exacerbation) Start:26-Mar-2017 Instruction Type:Provider Instructions for Treatment How to access health informa tion online Indication:Nonsmoker Start:09-Jan-2017 Instruction Type:Patient Education How to access health informa tion online - Detail Indication:Nonsmoker Start:09-Jan-2017 Instruction Type:Patient Education Patient Instructions Indication:Nonsmoker Start:09-Jan-2017 Instruction Type:Provider Instructions for Treatment How to access health informa tion online Indication:Abnormal glucose tolerance test Start:02-Jan-2017 Instruction Type:Patient Education How to access health informa tion online - Detail Indication:Abnormal glucose tolerance test Start:02-Jan-2017 Instruction Type:Patient Education Patient Instructions Indication:Abnormal glucose tolerance test Start:02-Jan-2017 Instruction Type:Provider Instructions for Treatment How to access health informa tion online Indication:Cough Start:14-Mar-2016 Instruction Type:Patient Education How to access health informa tion online - Detail Indication:Cough Start:14-Mar-2016 Instruction Type:Patient Education Patient Instructions Indication:Cough Start:14-Mar-2016 Instruction Type:Provider Instructions for Treatment How to access health informa tion online Indication:Cough Start:31-Jan-2015 Instruction Type:Patient Education How to access health informa tion online - Detail Indication:Cough Start:31-Jan-2015 Instruction Type:Patient Education Patient Instructions Indication:Cough Start:31-Jan-2015 Instruction Type:Provider Instructions for Treatment Chief Complaint and Reason for Visit Chief Complaint Cervical pain PAIN CERVICAL SPINE SYNCOPE Reason for Visit Cervical radiculopat hy Pain of cervical spine Cervical radiculopathy Chief Complaint PAIN CERVICAL SPINE SYNCOPE HEAD INJURY Reason for Visit Cervical radiculopat hy Chief Complaint PAIN CERVICAL SPINE SYNCOPE HEAD INJURY CVA/SYNCOPE Reason for Visit Cervical radiculopat hy Chief Complaint SYNCOPE HEAD INJURY CVA/SYNCOPE CVA Chief Complaint SYNCOPE HEAD INJURY CVA/SYNCOPE CVA CVA Chief Complaint SYNCOPE HEAD INJURY CVA/SYNCOPE CVA CVA Amb Documentation CVA Chief Complaint EORDER- cough xray Chief Complaint RT ARM TENNIS ELBOW / RX HERE Chief Complaint VIRAL SYMPTOMS Chief Complaint VIRAL SYMPTOMS SOB Chief Complaint VIRAL SYMPTOMS SOB CHEST PAIN Reason for Visit Chest pain Elevated d-dimer Elevated troponin Shortness of breath Chief Complaint VIRAL SYMPTOMS SOB CHEST PAIN CHEST PAIN Reason for Visit Chest pain Elevated d-dimer Elevated troponin Shortness of breath Chief Complaint VIRAL SYMPTOMS SOB CHEST PAIN ADMIT EKG CHEST PAIN Reason for Visit Chest pain Elevated d-dimer Elevated troponin Shortness of breath Chief Complaint VIRAL SYMPTOMS SOB CHEST PAIN ADMIT EKG CHEST PAIN CP Reason for Visit Chest pain Elevated d-dimer Elevated troponin Shortness of breath Chief Complaint VIRAL SYMPTOMS SOB CHEST PAIN ADMIT EKG CHEST PAIN CP DYSPHAGIA Reason for Visit Chest pain Elevated d-dimer Elevated troponin Shortness of breath Chief Complaint Admit Date BL ARM PAIN March 03, 2024 11:12am CHEST PAIN March 08, 2024 6:54am CHEST PAIN March 08, 2024 5:47pm BL HANDS March 17, 2024 10:58am CP (ARTEM) April 22, 2024 1 0:42am NUMBNESS AND TINGLING IN BOTH HANDS 2024 9:25am VIRAL SYMPTOMS May 09, 2024 11:51am CHEST PAIN May 18, 2024 8:53am [facility] 7:57[facility] Cerebral infarction, unspecified May 232024 5:37pm Other cerebral infarction May 25 7:39am PARESTHESIA OF SKIN May 30, 2024 3:4 3pm Reason for Visit Admit Date Bilateral carpal tunnel syndrome Decembe r 2023 11:12am Bilateral carpal tunnel syndrome Decembe r 2023 10:58am Chest pain April 22, 2024 1 0:42am Essential (primary) hypertension April 22, 2024 10:42am Chest pain May 20, 2024 7:57am Essential (primary) hypertension 2024 7:57am Chief Complaint Admit Date BL ARM PAIN March 03, 2024 11:12am CHEST PAIN March 08, 2024 6:54am CHEST PAIN March 08, 2024 5:47pm BL HANDS March 17, 2024 10:58am CP (ARTEM) April 22, 2024 1 0:42am NUMBNESS AND TINGLING IN BOTH HANDS 2024 9:25am VIRAL SYMPTOMS May 09, 2024 11:51am CHEST PAIN May 18, 2024 8:53am Per [facility] 7:57am Cerebral infarction, unspecified May 232024 5:37pm Other cerebral infarction May 25 7:39am PARESTHESIA OF SKIN May 30, 2024 3:4 3pm Occlusion and stenosis of carotid artery June 03, 2024 10:37am Reason for Visit Admit Date Bilateral carpal tunnel syndrome Decembe r 2023 11:12am Bilateral carpal tunnel syndrome Decembe r 2023 10:58am Chest pain April 22, 2024 1 0:42am Essential (primary) hypertension April 22, 2024 10:42am Chest pain May 20, 2024 7:57am Essential (primary) hypertension 2024 7:57am Stenosis of left internal carotid artery June 03, 2024 10:37am Chief Complaint Admit Date BL ARM PAIN March 03, 2024 11:12am CHEST PAIN March 08, 2024 6:54am CHEST PAIN March 08, 2024 5:47pm BL HANDS March 17, 2024 10:58am CP (ARTEM) April 22, 2024 1 0:42am NUMBNESS AND TINGLING IN BOTH HANDS 2024 9:25am VIRAL SYMPTOMS May 09, 2024 11:51am CHEST PAIN May 18, 2024 8:53am Per request Dr. Artem GASTON (Andria) F [facility] 2024 7:57am Cerebral infarction, unspecified May 232024 5:37pm Other cerebral infarction May 25 7:39am PARESTHESIA OF SKIN May 30, 2024 3:4 3pm Occlusion and stenosis of carotid artery June 03, 2024 10:37am CATH June 13, 2024 8:1 6am Chief Complaint Admit Date BL ARM PAIN March 03, 2024 11:12am CHEST PAIN March 08, 2024 6:54am CHEST PAIN March 08, 2024 5:47pm BL HANDS March 17, 2024 10:58am CP (ARTEM) April 22, 2024 1 0:42am NUMBNESS AND TINGLING IN BOTH HANDS 2024 9:25am VIRAL SYMPTOMS May 09, 2024 11:51am CHEST PAIN May 18, 2024 8:53am Per request Dr. Mcgill see NN (Andria) F ebruary 2024 7:57am Cerebral infarction, unspecified May 232024 5:37pm Other cerebral infarction May 25 7:39am PARESTHESIA OF SKIN May 30, 2024 3:4 3pm Occlusion and stenosis of carotid artery June 03, 2024 10:37am CATH June 13, 2024 8:1 6am Pain in left elbow June 15, 2024 4:0 4pm Chief Complaint Admit Date BL HANDS March 17, 2024 10:58am CP (ARTEM) April 22, 2024 1 0:42am NUMBNESS AND TINGLING IN BOTH HANDS Febr uary 2024 9:25am VIRAL SYMPTOMS May 09, 2024 11:51am CHEST PAIN May 18, 2024 8:53am Per request Dr. Mcgill see NN (Andria) F ebruary 2024 7:57am Cerebral infarction, unspecified May 232024 5:37pm Other cerebral infarction May 25 7:39am PARESTHESIA OF SKIN May 30, 2024 3:4 3pm Occlusion and stenosis of carotid artery June 03, 2024 10:37am CATH June 13, 2024 8:1 6am Pain in left elbow June 15, 2024 4:0 4pm RIGHT ELBOW June 23, 2024 2:10 pm Discuss Surgery June 27, 2024 1:51 pm LEFT CAROTID ARTERY STENT (IN VOCATIONAL ADVISER W [facility] OR STA July 12, 2024 8:31am LEFT CAROTID ARTERY STENT (IN VOCATIONAL ADVISER W [facility] OR STA July 12, 2024 10:11am LEFT CAROTID ARTERY STENT (IN VOCATIONAL ADVISER W [facility] STA July 13, 2024 9:05am Reason for Visit Admit Date Bilateral carpal tunnel syndrome Decembe r 2023 10:58am Chest pain April 22, 2024 1 0:42am Essential (primary) hypertension April 22, 2024 10:42am Chest pain May 20, 2024 7:57am Essential (primary) hypertension Februar y 2024 7:57am Stenosis of left internal carotid artery June 03, 2024 10:37am Left lateral epicondylitis June 23 2:10pm Stenosis of left internal carotid artery June 27, 2024 1:51pm Stenosis of left internal carotid artery July 12, 2024 10:11am Chief Complaint Admit Date CP (ARTEM) April 22, 2024 1 0:42am NUMBNESS AND TINGLING IN BOTH HANDS Febr uary 2024 9:25am VIRAL SYMPTOMS May 09, 2024 11:51am CHEST PAIN May 18, 2024 8:53am Per request Dr. Mcgill see NN (Andria) F ebruary 2024 7:57am Cerebral infarction, unspecified May 232024 5:37pm Other cerebral infarction May 25 7:39am PARESTHESIA OF SKIN May 30, 2024 3:4 3pm Occlusion and stenosis of carotid artery June 03, 2024 10:37am CATH June 13, 2024 8:1 6am Pain in left elbow June 15, 2024 4:0 4pm RIGHT ELBOW June 23, 2024 2:10 pm Discuss Surgery June 27, 2024 1:51 pm LEFT CAROTID ARTERY STENT (IN VOCATIONAL ADVISER W [facility] STA July 12, 2024 8:31am LEFT CAROTID ARTERY STENT (IN VOCATIONAL ADVISER W [facility] OR STA July 12, 2024 10:11am LEFT CAROTID ARTERY STENT (IN VOCATIONAL ADVISER W [facility] OR [facility] July 13, 2024 9:05am Post TCAR 2-4 WK FU July 27, 2024 2:38pm 4 M FU August 05, 2024 12:55 pm Reason for Visit Admit Date Chest pain April 22, 2024 1 0:42am Essential (primary) hypertension April 22, 2024 10:42am Chest pain May 20, 2024 7:57am Essential (primary) hypertension uar 2024 7:57am Stenosis of left internal carotid artery June 03, 2024 10:37am Left lateral epicondylitis June 23 2:10pm Stenosis of left internal carotid artery June 27, 2024 1:51pm Stenosis of left internal carotid artery July 12, 2024 10:11am Stenosis of left internal carotid artery July 27, 2024 2:38pm Essential (primary) hypertension July 12:55pm Stenosis of left internal carotid artery August 05, 2024 12:55pm Chief Complaint Admit Date CP (ARTEM) April 22, 2024 1 0:42am NUMBNESS AND TINGLING IN BOTH HANDS Febr uary 2024 9:25am VIRAL SYMPTOMS May 09, 2024 11:51am CHEST PAIN May 18, 2024 8:53am Per request Dr. Mcgill see NN (Andria) F ebruary 2024 7:57am Cerebral infarction, unspecified May 232024 5:37pm Other cerebral infarction May 25 7:39am PARESTHESIA OF SKIN May 30, 2024 3:4 3pm Occlusion and stenosis of carotid artery June 03, 2024 10:37am CATH June 13, 2024 8:1 6am Pain in left elbow June 15, 2024 4:0 4pm RIGHT ELBOW June 23, 2024 2:10 pm Discuss Surgery June 27, 2024 1:51 pm LEFT CAROTID ARTERY STENT (IN VOCATIONAL ADVISER W [facility] OR STA July 12, 2024 8:31am LEFT CAROTID ARTERY STENT (IN VOCATIONAL ADVISER W [facility] OR STA July 12, 2024 10:11am LEFT CAROTID ARTERY STENT (IN VOCATIONAL ADVISER W [facility] OR ST[facility] July 13, 2024 9:05am Post TCAR 2-4 WK FU July 27, 2024 2:38pm 4 M FU August 05, 2024 12:55 pm S/P L TCAR August 12, 2024 9:53a m Anemia, unspecified August 17, 2024 4:03p m Chief Complaint Admit Date PARESTHESIA OF SKIN May 30, 2024 3:4 3pm Occlusion and stenosis of carotid artery June 03, 2024 10:37am CATH June 13, 2024 8:1 6am Pain in left elbow June 15, 2024 4:0 4pm RIGHT ELBOW June 23, 2024 2:10 pm Discuss Surgery June 27, 2024 1:51 pm LEFT CAROTID ARTERY STENT (IN VOCATIONAL ADVISER W [facility] OR STA July 12, 2024 8:31am LEFT CAROTID ARTERY STENT (IN VOCATIONAL ADVISER W [facility] OR STA July 12, 2024 10:11am LEFT CAROTID ARTERY STENT (IN VOCATIONAL ADVISER W [facility] OR STA July 13, 2024 9:05am Post TCAR 2-4 WK FU July 27, 2024 2:38pm 4 M FU August 05, 2024 12:55 pm S/P L TCAR August 12, 2024 9:53a m Anemia, unspecified September 21, 2024 11:34 am BLOOD IN STOOL ANEMIA September 27, 2024 9:5 7am Reason for Visit Admit Date Stenosis of left internal carotid artery June 03, 2024 10:37am Left lateral epicondylitis June 23 2:10pm Stenosis of left internal carotid artery June 27, 2024 1:51pm Stenosis of left internal carotid artery July 12, 2024 10:11am Stenosis of left internal carotid artery July 27, 2024 2:38pm Essential (primary) hypertension July 12:55pm Stenosis of left internal carotid artery August 05, 2024 12:55pm Chief Complaint Admit Date CATH June 13, 2024 8:1 6am Pain in left elbow June 15, 2024 4:0 4pm RIGHT ELBOW June 23, 2024 2:10 pm Discuss Surgery June 27, 2024 1:51 pm LEFT CAROTID ARTERY STENT (IN VOCATIONAL ADVISER W [facility] OR [facility] July 12, 2024 8:31am LEFT CAROTID ARTERY STENT (IN VOCATIONAL ADVISER W [facility] OR STA July 12, 2024 10:11am LEFT CAROTID ARTERY STENT (IN VOCATIONAL ADVISER W [facility] OR STA July 13, 2024 9:05am Post TCAR 2-4 WK FU July 27, 2024 2:38pm 4 M FU August 05, 2024 12:55 pm S/P L TCAR August 12, 2024 9:53a m Anemia, unspecified September 21, 2024 11:34 am BLOOD IN STOOL ANEMIA September 27, 2024 9:5 7am INT LABS September 27, 2024 10:49 am Reason for Visit Admit Date Left lateral epicondylitis June 23 2:10pm Stenosis of left internal carotid artery June 27, 2024 1:51pm Stenosis of left internal carotid artery July 12, 2024 10:11am Stenosis of left internal carotid artery July 27, 2024 2:38pm Essential (primary) hypertension July 12:55pm Stenosis of left internal carotid artery August 05, 2024 12:55pm Fecal occult blood test positive September 9:57am Iron deficiency anemia September 27, 2024 9: 57am Chief Complaint Admit Date RIGHT ELBOW June 23, 2024 2:10 pm Discuss Surgery June 27, 2024 1:51 pm LEFT CAROTID ARTERY STENT (IN VOCATIONAL ADVISER W [facility] OR STA July 12, 2024 8:31am LEFT CAROTID ARTERY STENT (IN VOCATIONAL ADVISER W [facility] STA July 12, 2024 10:11am LEFT CAROTID ARTERY STENT (IN VOCATIONAL ADVISER W [facility] STA July 13, 2024 9:05am Post TCAR 2-4 WK FU July 27, 2024 2:38pm 4 M FU August 05, 2024 12:55 pm S/P L TCAR August 12, 2024 9:53a m Anemia, unspecified September 21, 2024 11:34 am BLOOD IN STOOL ANEMIA September 27, 2024 9:5 7am INT LABS September 27, 2024 10:49 am RIGHT BICEP/LEFT ELBOW October 20, 2024 9 :33am Reason for Visit Admit Date Left lateral epicondylitis June 23 2:10pm Stenosis of left internal carotid artery June 27, 2024 1:51pm Stenosis of left internal carotid artery July 12, 2024 10:11am Stenosis of left internal carotid artery July 27, 2024 2:38pm Essential (primary) hypertension July 12:55pm Stenosis of left internal carotid artery August 05, 2024 12:55pm Fecal occult blood test positive September 9:57am Iron deficiency anemia September 27, 2024 9: 57am Left lateral epicondylitis October 20 9:33am Tear of right biceps muscle October 20 025 9:33am Chief Complaint Admit Date Anemia, unspecified September 21, 2024 11:34 am BLOOD IN STOOL ANEMIA September 27, 2024 9:5 7am INT LABS September 27, 2024 10:49 am RIGHT BICEP/LEFT ELBOW October 20, 2024 9 :33am Reason for Visit Admit Date Fecal occult blood test positive September 9:57am Iron deficiency anemia September 27, 2024 9: 57am Left lateral epicondylitis October 20 9:33am Tear of right biceps muscle October 20, 025 9:33am Chief Complaint Admit Date Anemia, unspecified September 21, 2024 11:34 am BLOOD IN STOOL ANEMIA September 27, 2024 9:5 7am INT LABS September 27, 2024 10:49 am RIGHT BICEP/LEFT ELBOW October 20, 2024 9 :33am SOB December 27, 2024 4: 43pm BILAT LOWER EXT R22.43 December 28, 2024 10:22am 2 UNITS PRBC December 29, 2024 8: 31am C18.9 Malignant neoplasm of colon, unspe cified January 12, 2025 10:09am Reason for Visit Admit Date Fecal occult blood test positive September 9:57am Iron deficiency anemia September 27, 2024 9: 57am Left lateral epicondylitis October 20 9:33am Tear of right biceps muscle October 20, 2 025 9:33am Fecal occult blood test positive January 11, 2025 11:29am Iron deficiency anemia January 11 11:29am Chief Complaint Admit Date BLOOD IN STOOL ANEMIA September 27, 2024 9:5 7am INT LABS September 27, 2024 10:49 am RIGHT BICEP/LEFT ELBOW October 20, 2024 9 :33am SOB December 27, 2024 4: 43pm BILAT LOWER EXT R22.43 December 28, 2024 10:22am 2 UNITS PRBC December 29, 2024 8: 31am C18.9 Malignant neoplasm of colon, unspe cified January 12, 2025 10:09am COLON CANCER January 17, 2025 1 :40pm Reason for Visit Admit Date Fecal occult blood test positive September 9:57am Iron deficiency anemia September 27, 2024 9: 57am Left lateral epicondylitis October 20 9:33am Tear of right biceps muscle October 20, 2 025 9:33am Fecal occult blood test positive January 11, 2025 11:29am Iron deficiency anemia January 11 11:29am Colon cancer January 17, 2025 1 :40pm Advance Directives No Advanced Directives Records Found Advance Directive Response Recorded Date/ Time Name of Medical Power of [employer] pt unsure of p oa September 12, 2021 9:01am Advance Directives Yes April 3:40pm Living Will Yes September 12, 2021 9:01am Power of [employer] Yes September 12 9:01am Advance Directive Response Recorded Date/ Time Name of Medical Power of [employer] pt unsure of p oa September 12, 2021 9:01am Advance Directives Yes October 22 10:59am Living Will Yes October 22, 2021 10:59am Power of [employer] Yes October 22 10:59am Advance Directive Response Recorded Date/ Time Advance Directives Yes October 22 10:59am Living Will Yes October 22, 2021 10:59am Power of [employer] Yes October 22 10:59am Advance Directive Response Recorded Date/ Time Advance Directives Yes October 22 9:59am Living Will Yes October 22, 2021 9:59am Power of [employer] Yes October 22 9:59am Advance Directive Response Recorded Date/ Time Name of Medical Power of [employer] ? June 19, 2023 3:18pm Advance Directives Yes October 22 10:59am Living Will Yes June 19, 2023 3:18pm Power of [employer] Yes June 18 3:18pm Advance Directive Response Recorded Date/ Time Name of Medical Power of [employer] ? June 19, 2023 3:18pm Advance Directives Yes October 22 10:59am Living Will Yes July 06, 2023 5:03pm Power of [employer] No July 05 5:03pm Advance Directive Response Recorded Date/ Time Name of Medical Power of [employer] ? June 19, 2023 3:18pm Advance Directives Yes October 22 10:59am Living Will Yes July 06, 2023 8:46pm Power of [employer] No July 05 8:46pm Advance Directive Response Recorded Date/ Time Name of Medical Power of [employer] ? June 19, 2023 3:18pm Advance Directives Yes October 22 10:59am Living Will Yes July 15, 2023 5:13pm Power of [employer] No July 14 5:13pm Advance Directive Response Recorded Date/ Time Advance Directives Yes October 22 10:59am Advance Directive Response Recorded Date/ Time Advance Directives on File No June 13, 2024 8:40am Living Will Yes June 13, 2024 8:40am Do you have a Healthcare Power of [employer]? Yes June 13, 2024 8:40am Name of Medical Power of [employer] rocael quijano June 13, 2024 8:40am Advance Directives Yes June 13 8:40am Advance Directive Response Recorded Date/ Time Living Will Yes June 28, 2024 10:43am Do you have a Healthcare Power of [employer]? Yes July 12, 2024 11:46am Name of Medical Power of [employer] ROCAEL QUIJANO July 12, 2024 11:46am Advance Directives on File No June 13, 2024 8:40am Living Will Yes June 13, 2024 8:40am Do you have a Healthcare Power of [employer]? Yes June 13, 2024 8:40am Name of Medical Power of [employer] rocael quijano June 13, 2024 8:40am Advance Directives Yes June 13 8:40am Advance Directive Response Recorded Date/ Time Living Will Yes June 28, 2024 10:43am Do you have a Healthcare Power of [employer]? Yes July 12, 2024 11:46am Name of Medical Power of [employer] ROCAEL QUIJANO July 12, 2024 11:46am Advance Directives Yes June 13 8:40am Advance Directive Response Recorded Date/ Time Advance Directives Yes June 13 8:40am Advance Directive Response Recorded Date/ Time Do you have a Healthcare Power of [employer]? Yes January 10, 2025 8:37am Advance Directives Yes June 13 8:40am Summary Purpose Additional Source Comments Goals (unrecognized section and content) Goals may be documented in a n alternate sectionGoals may be documented in an alternate sectionGoals may be documented in an alternate sectionGoals may be documented in an alternate sectionGoals may be documented in an alternate sectionGoals may be documented in an alternate sectionGoals may be documented in an alternate sectionGoals may be documented in an alternate sectionGoals may be documented in an alternate sectionGoals may be documented in an alternate sectionGoals may be documented in an alternate sectionGoals may be documented in an alternate sectionGoals may be documented in an alternate sectionGoals may be documented in an alternate sectionGoals may be documented in an alternate sectionGoals may be documented in an alternate sectionGoals may be documented in an alternate sectionGoals may be documented in an alternate sectionGoals may be documented in an alternate sectionGoals may be documented in an alternate sectionGoals may be documented in an alternate sectionGoals may be documented in an alternate sectionGoals may be documented in an alternate sectionGoals may be documented in an alternate section (unrecognized sect ion and content) No Status Records FoundNo Status Records FoundNo Status Records Found INFORMATION SOURCE (unrecogn ized section and content) DATE CREATED AUTHOR 03/22/2022 [facility] DATE CREATED AUTHOR AUTHOR'S ORGANIZ ATION 06/10/2022 [facility] DATE CREATED AUTHOR AUTHOR'S ORGANIZ ATION 01/29/2025 [facility] Source Comments (unrecognize d section and content) In the event this informatio n is protected by the Federal Confidentiality of Alcohol and Drug Abuse Patient Records regulations: The Federal rules restrict any use of the information to criminally investigate or prosecute any alcohol or drug abuse patient.[facility] Center[facility] the event this information is protected by the Federal Confidentiality of Alcohol and Drug Abuse Patient Records regulations: The Federal rules restrict any use of the information to criminally investigate or prosecute any alcohol or drug abuse patient.[facility] Reason for Visit (unrecogniz ed section and content) Reason Comments Cough x couple weeks Care Teams (unrecognized sec tion and content) Senior Housekeeper Relationship Specialty Start Date End Date Lou Siegel DO [address] [facility] [address] [place], [place] [id number] PCP - General Internal Medicine 03/18/17 Team Status: Active Member Role Status Dates Dr. Lou Siegel DO Family Provider Active Dr. Lou Siegel DO Primary Care Provider Active Team Status: Inactive Member Role Status Dates Dr. Lou Siegel DO Primary Care Provider Active Dr. Darryn Bowens MD Attending Provider Active Team Status: Inactive Member Role Status Dates Dr. Lou Siegel DO Primary Care Provider Active Raven Villarreal NP-C Attending Provider, Referring Pr ovider Active Team Status: Inactive Member Role Status Dates Dr. Lou Siegel DO Primary Care Pr ovider, Attending Provider, Referring Provider Active Team Status: Inactive Member Role Status Dates Dr. Lou Siegel DO Primary Care Provider Active Dr. J Luis Mcgill MD Attending Provider Active Team Status: Inactive Member Role Status Dates Dr. Lou Siegel DO Primary Care Provider Active Dr. J Luis Mcgill MD Attending Provider, Referring Pr ovider Active Team Status: Active Member Role Status Dates Dr. Lou Siegel DO Family Provider Active Dr. J Luis Mcgill MD Primary Care Provider Active Team Status: Inactive Member Role Status Dates Dr. J Luis Mcgill MD Primary Care Provider Active Dr. Elmer Mars DO Emergency Provider Active Senior Housekeeper Relationship Specialty Start Date End Date Lou Siegel DO [address] [facility] [address] [place] [address] PCP - General Internal Medicine 03/18/17 Team Status: Inactive Member Role Status Dates Dr. J Luis Mcgill MD Primary Care Provider Active Dr. Elmer Mars DO Attending Provider, Emergency P christin Active Team Status: Inactive Member Role Status Dates Dr. J Luis Mcgill MD Primary Care Provider, Attending Provider Active Team Status: Active Member Role Status Dates Dr. J Luis Mcgill MD Primary Care Provider, Attending Provider Active Team Status: Active Member Role Status Dates Dr. J Luis Mcgill MD Primary Care Provider Active Huber Foy MD Emergency Provider Active Dr. Heriberto Grewal MD Admit Provider, Attending Provider Active Team Status: Active Member Role Status Dates Dr. J Luis Mcgill MD Primary Care Provider Active Huber Foy MD Emergency Provider Active Dr. Heriberto Grewal MD Admit Provider, Other Pro vider Active Dr. Kelton Engle DO Attending Provider, Other Provid er Active Team Status: Inactive Member Role Status Dates Dr. J Luis Mcgill MD Primary Care Provider Active Huber Foy MD Emergency Provider Active Dr. Heriberto Grewal MD Admit Provider, Other Pro vider Active Dr. Kelton Engle DO Attending Provider Active Team Status: Active Member Role Status Dates Dr. J Luis Mcgill MD Primary Care Provider Active Dr. Darryn Bowens MD Attending Provider Active Team Status: Active Member Role Status Dates Dr. J Luis Mcgill MD Primary Care Provider Active Dr. Darryn Bowens MD Attending Provider, Referring Pro vider Active Team Status: Active Member Role Status Dates Dr. J Luis Mcgill MD Primary Care Provi joaquin, Attending Provider, Referring Provider Active Team Status: Inactive Member Role Status Dates Dr. J Luis Mcgill MD Primary Care Provider Active Dr. Garret Leonardo DO Emergency Provider Active Team Status: Inactive Member Role Status Dates Dr. J Luis Mcgill MD Primary Care Provi joaquin, Attending Provider, Referring Provider Active Team Status: Inactive Member Role Status Dates Dr. J Luis Mcgill MD Primary Care Provider Active Dr. Garret Leonardo DO Attending Provider, Emergency P christin Active Team Status: Active Member Role Status Dates Dr. J Luis Mcgill MD Primary Care Provider Active Team Status: Inactive Member Role Status Dates Dr. J Luis Mcgill MD Primary Care Provider Active Start: February 12, 2024 End: February 12, 2024 Dr. J Luis Mcgill MD Attending Provider Active Start: February 12, 2024 End: February 12, 2024 Team Status: Inactive Member Role Status Dates Dr. J Luis Mcgill MD Primary Care Provider Active Start: February 22, 2024 End: February 22, 2024 Dr. J Luis Mcgill MD Attending Provider Active Start: February 22, 2024 End: February 22, 2024 Team Status: Inactive Member Role Status Dates Dr. J Luis Mcgill MD Primary Care Provider Active Start: March 03, 2024 End: March 03, 2024 Dr. J Luis Mcgill MD Referring Provider Active Start: March 03, 2024 End: March 03, 2024 Gerson Irvin MD Attending Provider Active St art: March 03, 2024 End: March 03, 2024 Team Status: Inactive Member Role Status Dates Dr. J Luis Mcgill MD Primary Care Provider Active Start: March 08, 2024 End: March 08, 2024 Dr. J Luis Mcgill MD Attending Provider Active Start: March 08, 2024 End: March 08, 2024 Dr. J Luis Mcgill MD Referring Provider Active Start: March 08, 2024 End: March 08, 2024 Team Status: Active Member Role Status Dates Dr. J Luis Mcgill MD Primary Care Provider Active Start: March 08, 2024 Dr. J Luis Mcgill MD Referring Provider Active Start: March 08, 2024 Dr. J Luis Mcgill MD Other Provider Active Star t: March 08, 2024 Dr. Darryn Bowens MD Attending Provider Active S tart: March 08, 2024 Team Status: Inactive Member Role Status Dates Dr. J Luis Mcgill MD Primary Care Provider Active Start: March 17, 2024 End: March 17, 2024 Dr. J Luis Mcgill MD Referring Provider Active Start: March 17, 2024 End: March 17, 2024 Gerson Irvin MD Attending Provider Active St art: March 17, 2024 End: March 17, 2024 Team Status: Inactive Member Role Status Dates Dr. J Luis Mcgill MD Primary Care Provider Active Start: April 22, 2024 End: April 22, 2024 Dr. J Luis Mcgill MD Referring Provider Active Start: April 22, 2024 End: April 22, 2024 Dr. Darryn Bowens MD Attending Provider Active S tart: April 22, 2024 End: April 22, 2024 Team Status: Inactive Member Role Status Dates Dr. J Luis Mcgill MD Primary Care Provider Active Start: April 25, 2024 End: April 25, 2024 Dr. J Luis Mcgill MD Attending Provider Active Start: April 25, 2024 End: April 25, 2024 Dr. J Luis Mcgill MD Referring Provider Active Start: April 25, 2024 End: April 25, 2024 Team Status: Inactive Member Role Status Dates Dr. J Luis Mcgill MD Primary Care Provider Active Start: May 09, 2024 End: May 09, 2024 Dr. J Luis Mcgill MD Attending Provider Active Start: May 09, 2024 End: May 09, 2024 Dr. J Luis Mcgill MD Referring Provider Active Start: May 09, 2024 End: May 09, 2024 Team Status: Inactive Member Role Status Dates Dr. J Luis Mcgill MD Primary Care Provider Active Start: May 18, 2024 End: May 18, 2024 Dr. J Luis Mcgill MD Attending Provider Active Start: May 18, 2024 End: May 18, 2024 Dr. J Luis Mcgill MD Referring Provider Active Start: May 18, 2024 End: May 18, 2024 Team Status: Active Member Role Status Dates Dr. J Luis Mcgill MD Primary Care Provider Active Start: May 18, 2024 Dr. Angeles Ervin MD Attending Provider Activ e Start: May 18, 2024 Team Status: Active Member Role Status Dates Dr. J Luis Mcgill MD Primary Care Provider Active Start: May 19, 2024 Dr. J Luis Mcgill MD Attending Provider Active Start: May 19, 2024 Team Status: Inactive Member Role Status Dates Dr. J Luis Mcgill MD Primary Care Provider Active Start: May 20, 2024 End: May 20, 2024 Dr. J Luis Mcgill MD Referring Provider Active Start: May 20, 2024 End: May 20, 2024 Addis Mcdaniels PA, PA Attending Provider Active Start: May 20, 2024 End: May 20, 2024 Team Status: Active Member Role Status Dates Dr. J Luis Mcgill MD Primary Care Provider Active Start: May 20, 2024 Addis Mcdaniels PA, PA Attending Provider Active Start: May 20, 2024 Addis Mcdaniels PA, PA Referring Provider Active Start: May 20, 2024 Team Status: Active Member Role Status Dates Dr. J Luis Mcgill MD Primary Care Provider Active Start: May 23, 2024 Dr. J Luis Mcgill MD Attending Provider Active Start: May 23, 2024 Dr. J Luis Mcgill MD Referring Provider Active Start: May 23, 2024 Team Status: Active Member Role Status Dates Dr. J Luis Mcgill MD Primary Care Provider Active Start: May 25, 2024 Dr. J Luis Mcgill MD Attending Provider Active Start: May 25, 2024 Dr. J Luis Mcgill MD Referring Provider Active Start: May 25, 2024 Team Status: Active Member Role Status Dates Dr. J Luis Mcgill MD Primary Care Provider Active Start: May 25, 2024 Dr. J Luis Mcgill MD Referring Provider Active Start: May 25, 2024 Dr. Kelton Blakely MD Attending Provider Active S tart: May 25, 2024 Team Status: Active Member Role Status Dates Dr. J Luis Mcgill MD Primary Care Provider Active Start: May 30, 2024 Dr. Heraclio Shaffer MD Attending Provider Active S tart: May 30, 2024 Dr. Heraclio Shaffer MD Referring Provider Active S tart: May 30, 2024 Team Status: Inactive Member Role Status Dates Dr. J Luis Mcgill MD Primary Care Provider Active Start: May 19, 2024 End: May 19, 2024 Dr. J Luis Mcgill MD Attending Provider Active Start: May 19, 2024 End: May 19, 2024 Team Status: Inactive Member Role Status Dates Dr. J Luis Mcgill MD Primary Care Provider Active Start: May 23, 2024 End: May 23, 2024 Dr. J Luis Mcgill MD Attending Provider Active Start: May 23, 2024 End: May 23, 2024 Dr. J Luis Mcgill MD Referring Provider Active Start: May 23, 2024 End: May 23, 2024 Team Status: Inactive Member Role Status Dates Dr. J Luis Mcgill MD Primary Care Provider Active Start: May 20, 2024 End: May 20, 2024 Addis THAO PA Attending Provider Active Start: May 20, 2024 End: May 20, 2024 Addis THAO PA Referring Provider Active Start: May 20, 2024 End: May 20, 2024 Team Status: Inactive Member Role Status Dates Dr. J Luis Mcgill MD Primary Care Provider Active Start: June 03, 2024 End: June 03, 2024 Dr. J Luis Mcgill MD Referring Provider Active Start: June 03, 2024 End: June 03, 2024 MASTER Cheung Attending Provider Active Star t: June 03, 2024 End: June 03, 2024 Team Status: Inactive Member Role Status Dates Dr. J Luis Mcgill MD Primary Care Provider Active Start: May 25, 2024 End: May 25, 2024 Dr. J Luis Mcgill MD Attending Provider Active Start: May 25, 2024 End: May 25, 2024 Dr. J Luis Mcgill MD Referring Provider Active Start: May 25, 2024 End: May 25, 2024 Team Status: Inactive Member Role Status Dates Dr. J Luis Mcgill MD Primary Care Provider Active Start: May 30, 2024 End: May 30, 2024 Dr. Heraclio Shaffer MD Attending Provider Active S tart: May 30, 2024 End: May 30, 2024 Dr. Heraclio Shaffer MD Referring Provider Active S tart: May 30, 2024 End: May 30, 2024 Team Status: Inactive Member Role Status Dates Dr. J Luis Mcgill MD Primary Care Provider Active Start: June 13, 2024 End: June 13, 2024 Dr. Darryn Bowens MD Attending Provider Active S tart: June 13, 2024 End: June 13, 2024 Team Status: Inactive Member Role Status Dates Dr. J Luis Mcgill MD Primary Care Provider Active Start: June 13, 2024 End: June 13, 2024 Dr. Darryn Bowens MD Attending Provider Active S tart: June 13, 2024 End: June 13, 2024 Dr. Darryn Bowens MD Referring Provider Active S tart: June 13, 2024 End: June 13, 2024 Team Status: Inactive Member Role Status Dates Dr. J Luis Mcgill MD Primary Care Provider Active Start: June 15, 2024 End: June 15, 2024 Dr. J Luis Mcgill MD Attending Provider Active Start: June 15, 2024 End: June 15, 2024 Dr. J Luis Mcgill MD Referring Provider Active Start: June 15, 2024 End: June 15, 2024 Team Status: Inactive Member Role Status Dates Dr. J Luis Mcgill MD Primary Care Provider Active Start: June 23, 2024 End: June 23, 2024 Dr. J Luis Mcgill MD Referring Provider Active Start: June 23, 2024 End: June 23, 2024 Gerson Irvin MD Attending Provider Active St art: June 23, 2024 End: June 23, 2024 Team Status: Inactive Member Role Status Dates Dr. J Luis Mcgill MD Primary Care Provider Active Start: June 27, 2024 End: June 27, 2024 Dr. J Luis Mcgill MD Referring Provider Active Start: June 27, 2024 End: June 27, 2024 Dr. Kelton Blakely MD Attending Provider Active S tart: June 27, 2024 End: June 27, 2024 Team Status: Active Member Role Status Dates Dr. J Luis Mcgill MD Primary Care Provider Active Start: July 12, 2024 Dr. Kelton Blakely MD Admit Provider Active Start : July 12, 2024 Dr. Kelton Blakely MD Attending Provider Active S tart: July 12, 2024 Dr. Kelton Blakely MD Referring Provider Active S tart: July 12, 2024 Dr. Kelton Blakely MD Other Provider Active Start : July 12, 2024 Team Status: Inactive Member Role Status Dates Dr. J Luis Mcgill MD Primary Care Provider Active Start: July 12, 2024 End: July 13, 2024 Dr. Kelton Blakely MD Admit Provider Active Start : July 12, 2024 End: July 13, 2024 Dr. Kelton Blakely MD Attending Provider Active S tart: July 12, 2024 End: July 13, 2024 Dr. Kelton Blakely MD Referring Provider Active S tart: July 12, 2024 End: July 13, 2024 Team Status: Active Member Role Status Dates Dr. J Luis Mcgill MD Primary Care Provider Active Start: July 13, 2024 Dr. Kelton Blakely MD Admit Provider Active Start : July 13, 2024 Dr. Kelton Blakely MD Referring Provider Active S tart: July 13, 2024 Dr. Kelton Blakely MD Other Provider Active Start : July 13, 2024 MASTER Cheung Attending Provider Active Star t: July 13, 2024 Team Status: Inactive Member Role Status Dates Dr. J Luis Mcgill MD Primary Care Provider Active Start: July 27, 2024 End: July 27, 2024 Dr. J Luis Mcgill MD Referring Provider Active Start: July 27, 2024 End: July 27, 2024 MASTER Cheung Attending Provider Active Star t: July 27, 2024 End: July 27, 2024 Team Status: Inactive Member Role Status Dates Dr. J Luis Mcgill MD Primary Care Provider Active Start: August 05, 2024 End: August 05, 2024 Dr. J Luis Mcgill MD Referring Provider Active Start: August 05, 2024 End: August 05, 2024 Pat Weller [employer], [employer] Attending Provider Active Start: August 05, 2024 End: August 05, 2024 Team Status: Inactive Member Role Status Dates Dr. J Luis Mcgill MD Primary Care Provider Active Start: August 10, 2024 End: August 10, 2024 Dr. J Luis Mcgill MD Attending Provider Active Start: August 10, 2024 End: August 10, 2024 Dr. J Luis Mcgill MD Referring Provider Active Start: August 10, 2024 End: August 10, 2024 Team Status: Active Member Role Status Dates Dr. J Luis Mcgill MD Primary Care Provider Active Start: August 12, 2024 MASTER Cheung Attending Provider Active Star t: August 12, 2024 MASTER Cheung Referring Provider Active Star t: August 12, 2024 Team Status: Active Member Role Status Dates Dr. J Luis Mcgill MD Primary Care Provider Active Start: August 12, 2024 Dr. Kelton Blakely MD Attending Provider Active S tart: August 12, 2024 Team Status: Active Member Role Status Dates Dr. J Luis Mcgill MD Primary Care Provider Active Start: August 16, 2024 Dr. J Luis Mcgill MD Attending Provider Active Start: August 16, 2024 Dr. J Luis Mcgill MD Referring Provider Active Start: August 16, 2024 Team Status: Active Member Role Status Dates Dr. J Luis Mcgill MD Primary Care Provider Active Start: August 17, 2024 Dr. J Luis Mcgill MD Attending Provider Active Start: August 17, 2024 Dr. J Luis Mcgill MD Referring Provider Active Start: August 17, 2024 Team Status: Inactive Member Role Status Dates Dr. J Luis Mcgill MD Primary Care Provider Active Start: August 12, 2024 End: August 12, 2024 MASTER Cheung Attending Provider Active Star t: August 12, 2024 End: August 12, 2024 MASTER Cheung Referring Provider Active Star t: August 12, 2024 End: August 12, 2024 Team Status: Inactive Member Role Status Dates Dr. J Luis Mcgill MD Primary Care Provider Active Start: August 16, 2024 End: August 16, 2024 Dr. J Luis Mcgill MD Attending Provider Active Start: August 16, 2024 End: August 16, 2024 Dr. J Luis Mcgill MD Referring Provider Active Start: August 16, 2024 End: August 16, 2024 Team Status: Active Member Role/Relationship Status Dates Dr. J Luis Mcgill MD Primary Care Provider Active Team Status: Inactive Member Role/Relationship Status Dates Dr. J Luis Mcgill MD Primary Care Provider Active Start: May 30, 2024 End: May 30, 2024 Dr. Heraclio Shaffer MD Attending Provider Active S tart: May 30, 2024 End: May 30, 2024 Dr. Heraclio Shaffer MD Referring Provider Active S tart: May 30, 2024 End: May 30, 2024 Team Status: Inactive Member Role/Relationship Status Dates Dr. J Luis Mcgill MD Primary Care Provider Active Start: June 03, 2024 End: June 03, 2024 Dr. J Luis Mcgill MD Referring Provider Active Start: June 03, 2024 End: June 03, 2024 MASTER Cheung Attending Provider Active Star t: June 03, 2024 End: June 03, 2024 Team Status: Inactive Member Role/Relationship Status Dates Dr. J Luis Mcgill MD Primary Care Provider Active Start: June 13, 2024 End: June 13, 2024 Dr. Darryn Bowens MD Attending Provider Active S tart: June 13, 2024 End: June 13, 2024 Dr. Darryn Bowens MD Referring Provider Active S tart: June 13, 2024 End: June 13, 2024 Team Status: Inactive Member Role/Relationship Status Dates Dr. J Luis Mcgill MD Primary Care Provider Active Start: June 15, 2024 End: June 15, 2024 Dr. J Luis Mcgill MD Attending Provider Active Start: June 15, 2024 End: June 15, 2024 Dr. J Luis Mcgill MD Referring Provider Active Start: June 15, 2024 End: June 15, 2024 Team Status: Inactive Member Role/Relationship Status Dates Dr. J Luis Mcgill MD Primary Care Provider Active Start: June 23, 2024 End: June 23, 2024 Dr. J Luis Mcgill MD Referring Provider Active Start: June 23, 2024 End: June 23, 2024 Gerson Irvin MD Attending Provider Active St art: June 23, 2024 End: June 23, 2024 Team Status: Inactive Member Role/Relationship Status Dates Dr. J Luis Mcgill MD Primary Care Provider Active Start: June 27, 2024 End: June 27, 2024 Dr. J Luis Mcgill MD Referring Provider Active Start: June 27, 2024 End: June 27, 2024 Dr. Kelton Blakely MD Attending Provider Active S tart: June 27, 2024 End: June 27, 2024 Team Status: Active Member Role/Relationship Status Dates Dr. J Luis Mcgill MD Primary Care Provider Active Start: July 12, 2024 Dr. Kelton Blakely MD Admit Provider Active Start : July 12, 2024 Dr. Kelton Blakely MD Attending Provider Active S tart: July 12, 2024 Dr. Kelton Blakely MD Referring Provider Active S tart: July 12, 2024 Dr. Kelton Blakely MD Other Provider Active Start : July 12, 2024 Team Status: Inactive Member Role/Relationship Status Dates Dr. J Luis Mcgill MD Primary Care Provider Active Start: July 12, 2024 End: July 13, 2024 Dr. Kelton Blakely MD Admit Provider Active Start : July 12, 2024 End: July 13, 2024 Dr. Kelton Blakely MD Attending Provider Active S tart: July 12, 2024 End: July 13, 2024 Dr. Kelton Blakely MD Referring Provider Active S tart: July 12, 2024 End: July 13, 2024 Team Status: Active Member Role/Relationship Status Dates Dr. J Luis Mcgill MD Primary Care Provider Active Start: July 13, 2024 Dr. Kelton Blakely MD Admit Provider Active Start : July 13, 2024 Dr. Kelton Blakely MD Referring Provider Active S tart: July 13, 2024 Dr. Kelton Blakely MD Other Provider Active Start : July 13, 2024 MASTER Cheung Attending Provider Active Star t: July 13, 2024 Team Status: Inactive Member Role/Relationship Status Dates Dr. J Luis Mcgill MD Primary Care Provider Active Start: July 27, 2024 End: July 27, 2024 Dr. J Luis Mcgill MD Referring Provider Active Start: July 27, 2024 End: July 27, 2024 MASTER Cheung Attending Provider Active Star t: July 27, 2024 End: July 27, 2024 Team Status: Inactive Member Role/Relationship Status Dates Dr. J Luis Mcgill MD Primary Care Provider Active Start: August 05, 2024 End: August 05, 2024 Dr. J Luis Mcgill MD Referring Provider Active Start: August 05, 2024 End: August 05, 2024 Pat Weller NP, [employer] Attending Provider Active Start: August 05, 2024 End: August 05, 2024 Team Status: Inactive Member Role/Relationship Status Dates Dr. J Luis Mcgill MD Primary Care Provider Active Start: August 10, 2024 End: August 10, 2024 Dr. J Luis Mcgill MD Attending Provider Active Start: August 10, 2024 End: August 10, 2024 Dr. J Luis Mcgill MD Referring Provider Active Start: August 10, 2024 End: August 10, 2024 Team Status: Inactive Member Role/Relationship Status Dates Dr. J Luis Mcgill MD Primary Care Provider Active Start: August 12, 2024 End: August 12, 2024 MASTER Cheung Attending Provider Active Star t: August 12, 2024 End: August 12, 2024 MASTER Cheung Referring Provider Active Star t: August 12, 2024 End: August 12, 2024 Team Status: Active Member Role/Relationship Status Dates Dr. J Luis Mcgill MD Primary Care Provider Active Start: August 12, 2024 Dr. Kelton Blakely MD Attending Provider Active S tart: August 12, 2024 MASTER Cheung Referring Provider Active Star t: August 12, 2024 Team Status: Inactive Member Role/Relationship Status Dates Dr. J Luis Mcgill MD Primary Care Provider Active Start: August 16, 2024 End: August 16, 2024 Dr. J Luis Mcgill MD Attending Provider Active Start: August 16, 2024 End: August 16, 2024 Dr. J Luis Mcgill MD Referring Provider Active Start: August 16, 2024 End: August 16, 2024 Team Status: Active Member Role/Relationship Status Dates Dr. J Luis Mcgill MD Primary Care Provider Active Start: September 21, 2024 Dr. J Luis Mcgill MD Attending Provider Active Start: September 21, 2024 Dr. J Luis Mcgill MD Referring Provider Active Start: September 21, 2024 Team Status: Inactive Member Role/Relationship Status Dates Dr. J Luis Mcgill MD Primary Care Provider Active Start: September 27, 2024 End: September 27, 2024 Dr. J Luis Mcgill MD Referring Provider Active Start: September 27, 2024 End: September 27, 2024 MASTER Leyva Attending Provider Active Start: September 27, 2024 End: September 27, 2024 Team Status: Inactive Member Role/Relationship Status Dates Dr. J Luis Mcgill MD Primary Care Provider Active Start: June 13, 2024 End: June 13, 2024 Dr. Darryn Bowens MD Attending Provider Active S tart: June 13, 2024 End: June 13, 2024 Dr. Darryn Bowens MD Referring Provider Active S tart: June 13, 2024 End: June 13, 2024 Team Status: Inactive Member Role/Relationship Status Dates Dr. J Luis Mcgill MD Primary Care Provider Active Start: June 15, 2024 End: June 15, 2024 Dr. J Luis Mcgill MD Attending Provider Active Start: June 15, 2024 End: June 15, 2024 Dr. J Luis Mcgill MD Referring Provider Active Start: June 15, 2024 End: June 15, 2024 Team Status: Inactive Member Role/Relationship Status Dates Dr. J Luis Mcgill MD Primary Care Provider Active Start: June 23, 2024 End: June 23, 2024 Dr. J Luis Mcgill MD Referring Provider Active Start: June 23, 2024 End: June 23, 2024 Gerson Irvin MD Attending Provider Active St art: June 23, 2024 End: June 23, 2024 Team Status: Inactive Member Role/Relationship Status Dates Dr. J Luis Mcgill MD Primary Care Provider Active Start: June 27, 2024 End: June 27, 2024 Dr. J Luis Mcgill MD Referring Provider Active Start: June 27, 2024 End: June 27, 2024 Dr. Kelton Blakely MD Attending Provider Active S tart: June 27, 2024 End: June 27, 2024 Team Status: Active Member Role/Relationship Status Dates Dr. J Luis Mcgill MD Primary Care Provider Active Start: July 12, 2024 Dr. Kelton Blakely MD Admit Provider Active Start : July 12, 2024 Dr. Kelton Blakely MD Attending Provider Active S tart: July 12, 2024 Dr. Kelton Blakely MD Referring Provider Active S tart: July 12, 2024 Dr. Kelton Blakely MD Other Provider Active Start : July 12, 2024 Team Status: Inactive Member Role/Relationship Status Dates Dr. J Luis Mcgill MD Primary Care Provider Active Start: July 12, 2024 End: July 13, 2024 Dr. Kelton Blakely MD Admit Provider Active Start : July 12, 2024 End: July 13, 2024 Dr. Kelton Blakely MD Attending Provider Active S tart: July 12, 2024 End: July 13, 2024 Dr. Kelton Blakely MD Referring Provider Active S tart: July 12, 2024 End: July 13, 2024 Team Status: Active Member Role/Relationship Status Dates Dr. J Luis Mcgill MD Primary Care Provider Active Start: July 13, 2024 Dr. Kelton Blakely MD Admit Provider Active Start : July 13, 2024 Dr. Kelton Blakely MD Referring Provider Active S tart: July 13, 2024 Dr. Kelton Blakely MD Other Provider Active Start : July 13, 2024 MASTER Cheung Attending Provider Active Star t: July 13, 2024 Team Status: Inactive Member Role/Relationship Status Dates Dr. J Luis Mcgill MD Primary Care Provider Active Start: July 27, 2024 End: July 27, 2024 Dr. J Luis Mcgill MD Referring Provider Active Start: July 27, 2024 End: July 27, 2024 MASTER Cheung Attending Provider Active Star t: July 27, 2024 End: July 27, 2024 Team Status: Inactive Member Role/Relationship Status Dates Dr. J Luis Mcgill MD Primary Care Provider Active Start: August 05, 2024 End: August 05, 2024 Dr. J Luis Mcgill MD Referring Provider Active Start: August 05, 2024 End: August 05, 2024 Pat Weller [employer], [employer] Attending Provider Active Start: August 05, 2024 End: August 05, 2024 Team Status: Inactive Member Role/Relationship Status Dates Dr. J Luis Mcgill MD Primary Care Provider Active Start: August 10, 2024 End: August 10, 2024 Dr. J Luis Mcgill MD Attending Provider Active Start: August 10, 2024 End: August 10, 2024 Dr. J Luis Mcgill MD Referring Provider Active Start: August 10, 2024 End: August 10, 2024 Team Status: Inactive Member Role/Relationship Status Dates Dr. J Luis Mcgill MD Primary Care Provider Active Start: August 12, 2024 End: August 12, 2024 MASTER Cheung Attending Provider Active Star t: August 12, 2024 End: August 12, 2024 MASTER Cheung Referring Provider Active Star t: August 12, 2024 End: August 12, 2024 Team Status: Active Member Role/Relationship Status Dates Dr. J Luis Mcgill MD Primary Care Provider Active Start: August 12, 2024 Dr. Kelton Blakely MD Attending Provider Active S tart: August 12, 2024 MASTER Cheung Referring Provider Active Star t: August 12, 2024 Team Status: Inactive Member Role/Relationship Status Dates Dr. J Luis Mcgill MD Primary Care Provider Active Start: August 16, 2024 End: August 16, 2024 Dr. J Luis Mcgill MD Attending Provider Active Start: August 16, 2024 End: August 16, 2024 Dr. J Luis Mcgill MD Referring Provider Active Start: August 16, 2024 End: August 16, 2024 Team Status: Active Member Role/Relationship Status Dates Dr. J Luis Mcgill MD Primary Care Provider Active Start: September 21, 2024 Dr. J Luis Mcgill MD Attending Provider Active Start: September 21, 2024 Dr. J Luis Mcgill MD Referring Provider Active Start: September 21, 2024 Team Status: Inactive Member Role/Relationship Status Dates Dr. J Luis Mcgill MD Primary Care Provider Active Start: September 27, 2024 End: September 27, 2024 Dr. J Luis Mcgill MD Referring Provider Active Start: September 27, 2024 End: September 27, 2024 MASTER Leyva Attending Provider Active Start: September 27, 2024 End: September 27, 2024 Team Status: Inactive Member Role/Relationship Status Dates Dr. J Luis Mcgill MD Primary Care Provider Active Start: September 27, 2024 End: September 27, 2024 MASTER Leyva Attending Provider Active Start: September 27, 2024 End: September 27, 2024 MASTER Leyva Referring Provider Active Start: September 27, 2024 End: September 27, 2024 Team Status: Inactive Member Role/Relationship Status Dates Dr. J Luis Mcgill MD Primary Care Provider Active Start: June 23, 2024 End: June 23, 2024 Dr. J Luis Mcgill MD Referring Provider Active Start: June 23, 2024 End: June 23, 2024 Gerson Irvin MD Attending Provider Active St art: June 23, 2024 End: June 23, 2024 Team Status: Inactive Member Role/Relationship Status Dates Dr. J Luis Mcgill MD Primary Care Provider Active Start: June 27, 2024 End: June 27, 2024 Dr. J Luis Mcgill MD Referring Provider Active Start: June 27, 2024 End: June 27, 2024 Dr. Kelton Blakely MD Attending Provider Active S tart: June 27, 2024 End: June 27, 2024 Team Status: Active Member Role/Relationship Status Dates Dr. J Luis Mcgill MD Primary Care Provider Active Start: July 12, 2024 Dr. Kelton Blakely MD Admit Provider Active Start : July 12, 2024 Dr. Kelton Blakely MD Attending Provider Active S tart: July 12, 2024 Dr. Kelton Blakely MD Referring Provider Active S tart: July 12, 2024 Dr. Kelton Blakely MD Other Provider Active Start : July 12, 2024 Team Status: Inactive Member Role/Relationship Status Dates Dr. J Luis Mcgill MD Primary Care Provider Active Start: July 12, 2024 End: July 13, 2024 Dr. Kelton Blakely MD Admit Provider Active Start : July 12, 2024 End: July 13, 2024 Dr. Kelton Blakely MD Attending Provider Active S tart: July 12, 2024 End: July 13, 2024 Dr. Kelton Blakely MD Referring Provider Active S tart: July 12, 2024 End: July 13, 2024 Team Status: Active Member Role/Relationship Status Dates Dr. J Luis Mcgill MD Primary Care Provider Active Start: July 13, 2024 Dr. Kelton Blakely MD Admit Provider Active Start : July 13, 2024 Dr. Kelton Blakely MD Referring Provider Active S tart: July 13, 2024 Dr. Kelton Blakely MD Other Provider Active Start : July 13, 2024 MASTER Cheung Attending Provider Active Star t: July 13, 2024 Team Status: Inactive Member Role/Relationship Status Dates Dr. J Luis Mcgill MD Primary Care Provider Active Start: July 27, 2024 End: July 27, 2024 Dr. J Luis Mcgill MD Referring Provider Active Start: July 27, 2024 End: July 27, 2024 MASTER Cheung Attending Provider Active Star t: July 27, 2024 End: July 27, 2024 Team Status: Inactive Member Role/Relationship Status Dates Dr. JL uis Mcgill MD Primary Care Provider Active Start: August 05, 2024 End: August 05, 2024 Dr. J Luis Mcgill MD Referring Provider Active Start: August 05, 2024 End: August 05, 2024 Pat Weller [employer], [employer] Attending Provider Active Start: August 05, 2024 End: August 05, 2024 Team Status: Inactive Member Role/Relationship Status Dates Dr. J Luis Mcgill MD Primary Care Provider Active Start: August 10, 2024 End: August 10, 2024 Dr. J Luis Mcgill MD Attending Provider Active Start: August 10, 2024 End: August 10, 2024 Dr. J Luis Mcgill MD Referring Provider Active Start: August 10, 2024 End: August 10, 2024 Team Status: Inactive Member Role/Relationship Status Dates Dr. J Luis Mcgill MD Primary Care Provider Active Start: August 12, 2024 End: August 12, 2024 MASTER Cheung Attending Provider Active Star t: August 12, 2024 End: August 12, 2024 MASTER Cheung Referring Provider Active Star t: August 12, 2024 End: August 12, 2024 Team Status: Active Member Role/Relationship Status Dates Dr. J Luis Mcgill MD Primary Care Provider Active Start: August 12, 2024 Dr. Kelton Blakely MD Attending Provider Active S tart: August 12, 2024 MASTER Cheung Referring Provider Active Star t: August 12, 2024 Team Status: Inactive Member Role/Relationship Status Dates Dr. J Luis Mcgill MD Primary Care Provider Active Start: August 16, 2024 End: August 16, 2024 Dr. J Luis Mcgill MD Attending Provider Active Start: August 16, 2024 End: August 16, 2024 Dr. J Luis Mcgill MD Referring Provider Active Start: August 16, 2024 End: August 16, 2024 Team Status: Active Member Role/Relationship Status Dates Dr. J Luis Mcgill MD Primary Care Provider Active Start: September 21, 2024 Dr. J Luis Mcgill MD Attending Provider Active Start: September 21, 2024 Dr. J Luis Mcgill MD Referring Provider Active Start: September 21, 2024 Team Status: Inactive Member Role/Relationship Status Dates Dr. J Luis Mcgill MD Primary Care Provider Active Start: September 27, 2024 End: September 27, 2024 Dr. J Luis Mcgill MD Referring Provider Active Start: September 27, 2024 End: September 27, 2024 MASTER Leyva Attending Provider Active Start: September 27, 2024 End: September 27, 2024 Team Status: Inactive Member Role/Relationship Status Dates Dr. J Luis Mcgill MD Primary Care Provider Active Start: September 27, 2024 End: September 27, 2024 MASTER Leyva Attending Provider Active Start: September 27, 2024 End: September 27, 2024 MASTER Leyva Referring Provider Active Start: September 27, 2024 End: September 27, 2024 Team Status: Inactive Member Role/Relationship Status Dates Dr. J Luis Mcgill MD Primary Care Provider Active Start: October 20, 2024 End: October 20, 2024 Dr. J Luis Mcgill MD Referring Provider Active Start: October 20, 2024 End: October 20, 2024 Gerson Irvin MD Attending Provider Active St art: October 20, 2024 End: October 20, 2024 Team Status: Active Member Role/Relationship Status Dates Dr. J Luis Mcgill MD Primary care physician Active Team Status: Inactive Member Role/Relationship Status Dates Dr. J Luis Mcgill MD Primary care physician Active Start: September 21, 2024 End: September 21, 2024 Dr. J Luis Mcgill MD Attending physician Active Start: September 21, 2024 End: September 21, 2024 Dr. J Luis Mcgill MD Referring Provider Active Start: September 21, 2024 End: September 21, 2024 Team Status: Inactive Member Role/Relationship Status Dates Dr. J Luis Mcgill MD Primary care physician Active Start: September 27, 2024 End: September 27, 2024 Dr. J Luis Mcgill MD Referring Provider Active Start: September 27, 2024 End: September 27, 2024 MASTER Leyva Attending physician Active Start: September 27, 2024 End: September 27, 2024 Team Status: Inactive Member Role/Relationship Status Dates Dr. J Luis Mcgill MD Primary care physician Active Start: September 27, 2024 End: September 27, 2024 MASTER Leyva Attending physician Active Start: September 27, 2024 End: September 27, 2024 MASTER Leyva Referring Provider Active Start: September 27, 2024 End: September 27, 2024 Team Status: Inactive Member Role/Relationship Status Dates Dr. J Luis Mcgill MD Primary care physician Active Start: October 20, 2024 End: October 20, 2024 Dr. J Luis Mcgill MD Referring Provider Active Start: October 20, 2024 End: October 20, 2024 Gerson Irvin MD Attending physician Active S tart: October 20, 2024 End: October 20, 2024 Team Status: Inactive Member Role/Relationship Status Dates Dr. J Luis Mcgill MD Primary care physician Active Start: December 07, 2024 End: December 07, 2024 Dr. J Luis Mcgill MD Attending physician Active Start: December 07, 2024 End: December 07, 2024 Team Status: Inactive Member Role/Relationship Status Dates Dr. J Luis Mcgill MD Primary care physician Active Start: December 27, 2024 End: December 27, 2024 Dr. J Luis Mcgill MD Attending physician Active Start: December 27, 2024 End: December 27, 2024 Dr. J Luis Mcgill MD Referring Provider Active Start: December 27, 2024 End: December 27, 2024 Team Status: Inactive Member Role/Relationship Status Dates Dr. J Luis Mcgill MD Primary care physician Active Start: December 27, 2024 End: December 27, 2024 Dr. J Luis Mcgill MD Attending physician Active Start: December 27, 2024 End: December 27, 2024 Dr. J Luis Mcgill MD Referring Provider Active Start: December 27, 2024 End: December 27, 2024 Team Status: Inactive Member Role/Relationship Status Dates Dr. J Luis Mcgill MD Primary care physician Active Start: December 28, 2024 End: December 28, 2024 Dr. J Luis Mcgill MD Attending physician Active Start: December 28, 2024 End: December 28, 2024 Team Status: Inactive Member Role/Relationship Status Dates Dr. J Luis Mcgill MD Primary care physician Active Start: December 28, 2024 End: December 28, 2024 Dr. J Luis Mcgill MD Attending physician Active Start: December 28, 2024 End: December 28, 2024 Dr. J Luis Mcgill MD Referring Provider Active Start: December 28, 2024 End: December 28, 2024 Team Status: Inactive Member Role/Relationship Status Dates Dr. J Luis Mcgill MD Primary care physician Active Start: December 29, 2024 End: December 29, 2024 Dr. J Luis Mcgill MD Attending physician Active Start: December 29, 2024 End: December 29, 2024 Dr. J Luis Mcgill MD Referring Provider Active Start: December 29, 2024 End: December 29, 2024 Team Status: Inactive Member Role/Relationship Status Dates Dr. J Luis Mcgill MD Primary care physician Active Start: January 02, 2025 End: January 02, 2025 Dr. J Luis Mcgill MD Attending physician Active Start: January 02, 2025 End: January 02, 2025 Team Status: Inactive Member Role/Relationship Status Dates Dr. J Luis Mcgill MD Primary care physician Active Start: January 11, 2025 End: January 11, 2025 Dr. J Luis Mcgill MD Referring Provider Active Start: January 11, 2025 End: January 11, 2025 Dr. Gagandeep Parks DO Attending physician Active Start: January 11, 2025 End: January 11, 2025 Team Status: Active Member Role/Relationship Status Dates Dr. J Luis Mcgill MD Primary care physician Active Start: January 11, 2025 Dr. J Luis Mcgill MD Referring Provider Active Start: January 11, 2025 Dr. Gagandeep Parks DO Attending physician Active Start: January 11, 2025 Dr. Gagandeep Parks DO Nurse Practitioner Active Start: January 11, 2025 Team Status: Active Member Role/Relationship Status Dates Dr. J Luis Mcgill MD Primary care physician Active Start: January 12, 2025 Dr. Gagandeep Parks DO Attending physician Active Start: January 12, 2025 Dr. Gagandeep Parks DO Referring Provider Active Start: January 12, 2025 Team Status: Active Member Role/Relationship Status Dates Dr. J Luis Mcgill MD Primary care physician Active Start: January 12, 2025 Dr. Kelton Blakely MD Attending physician Active Start: January 12, 2025 Team Status: Inactive Member Role/Relationship Status Dates Dr. J Luis Mcgill MD Primary care physician Active Start: September 27, 2024 End: September 27, 2024 Dr. J Luis Mcgill MD Referring Provider Active Start: September 27, 2024 End: September 27, 2024 MASTER Leyva Attending physician Active Start: September 27, 2024 End: September 27, 2024 Team Status: Inactive Member Role/Relationship Status Dates Dr. J Luis Mcgill MD Primary care physician Active Start: September 27, 2024 End: September 27, 2024 MASTER Leyva Attending physician Active Start: September 27, 2024 End: September 27, 2024 MASTER Leyva Referring Provider Active Start: September 27, 2024 End: September 27, 2024 Team Status: Inactive Member Role/Relationship Status Dates Dr. J Luis Mcgill MD Primary care physician Active Start: October 20, 2024 End: October 20, 2024 Dr. J Luis Mcgill MD Referring Provider Active Start: October 20, 2024 End: October 20, 2024 Gerson Irvin MD Attending physician Active S tart: October 20, 2024 End: October 20, 2024 Team Status: Inactive Member Role/Relationship Status Dates Dr. J Luis Mcgill MD Primary care physician Active Start: December 07, 2024 End: December 07, 2024 Dr. J Luis Mcgill MD Attending physician Active Start: December 07, 2024 End: December 07, 2024 Team Status: Inactive Member Role/Relationship Status Dates Dr. J Luis Mcgill MD Primary care physician Active Start: December 27, 2024 End: December 27, 2024 Dr. J Luis Mcgill MD Attending physician Active Start: December 27, 2024 End: December 27, 2024 Dr. J Luis Mcgill MD Referring Provider Active Start: December 27, 2024 End: December 27, 2024 Team Status: Inactive Member Role/Relationship Status Dates Dr. J Luis Mcgill MD Primary care physician Active Start: December 28, 2024 End: December 28, 2024 Dr. J Luis Mcgill MD Attending physician Active Start: December 28, 2024 End: December 28, 2024 Team Status: Inactive Member Role/Relationship Status Dates Dr. J Luis Mcgill MD Primary care physician Active Start: December 28, 2024 End: December 28, 2024 Dr. J Luis Mcgill MD Attending physician Active Start: December 28, 2024 End: December 28, 2024 Dr. J Luis Mcgill MD Referring Provider Active Start: December 28, 2024 End: December 28, 2024 Team Status: Inactive Member Role/Relationship Status Dates Dr. J Luis Mcgill MD Primary care physician Active Start: December 29, 2024 End: December 29, 2024 Dr. J Luis Mcgill MD Attending physician Active Start: December 29, 2024 End: December 29, 2024 Dr. J Luis Mcgill MD Referring Provider Active Start: December 29, 2024 End: December 29, 2024 Team Status: Inactive Member Role/Relationship Status Dates Dr. J Luis Mcgill MD Primary care physician Active Start: January 02, 2025 End: January 02, 2025 Dr. J Luis Mcgill MD Attending physician Active Start: January 02, 2025 End: January 02, 2025 Team Status: Inactive Member Role/Relationship Status Dates Dr. J Luis Mcgill MD Primary care physician Active Start: January 11, 2025 End: January 11, 2025 Dr. J Luis Mcgill MD Referring Provider Active Start: January 11, 2025 End: January 11, 2025 Dr. Gagandeep Parks DO Attending physician Active Start: January 11, 2025 End: January 11, 2025 Team Status: Active Member Role/Relationship Status Dates Dr. J Luis Mcgill MD Primary care physician Active Start: January 11, 2025 Dr. J Luis Mcgill MD Referring Provider Active Start: January 11, 2025 Dr. Gagandeep Parks DO Attending physician Active Start: January 11, 2025 Dr. Gagandeep Parks DO Nurse Practitioner Active Start: January 11, 2025 Team Status: Active Member Role/Relationship Status Dates Dr. J Luis Mcgill MD Primary care physician Active Start: January 12, 2025 Dr. Gagandeep Parks DO Attending physician Active Start: January 12, 2025 Dr. Gagandeep Parks DO Referring Provider Active Start: January 12, 2025 Team Status: Active Member Role/Relationship Status Dates Dr. J Luis Mcgill MD Primary care physician Active Start: January 12, 2025 Dr. Kelton Blakely MD Attending physician Active Start: January 12, 2025 Team Status: Inactive Member Role/Relationship Status Dates Dr. J Luis Mcgill MD Primary care physician Active Start: January 17, 2025 End: January 17, 2025 Dr. Axel Brito MD Attending physician Active Start: January 17, 2025 End: January 17, 2025 Dr. Gagandeep Parks DO Referring Provider Active Start: January 17, 2025 End: January 17, 2025 FOR RECORDS PERTAINING TO PATIENTS WHO ARE OR HAVE BEEN ENROLLED IN A CHEMICAL DEPENDENCY/SUBSTANCEABUSE PROGRAM, SOME INFORMATION MAY BE OMITTED. This clinical summary was aggregated from multiple sources. Caution should be exercised in using it in the provision of clinical care. This summary normalizes information from multiple sources, and as a consequence, information in this document may materially change the coding, format and clinical context of patient data. In addition, data may be omitted in some cases. CLINICAL DECISIONS SHOULD BE BASED ON THE PRIMARY CLINICAL RECORDS. [facility] [employer] provides no warranty or guarantee of the accuracy or completeness of information in this document.
[2025-01-30] MEDS: Lactated Ringers 1,000 ML 40 ML IV ×2 (06:21→11:53)
[2025-01-30] MEDS: Magnesium 1 GM over 15 mins IV (06:22)
--- NOTE | 2025-01-30 06:50 | PCM.PRE.AN2 ---
ASA Classification* ASA Classification ASA Classification: 3 (Asthma, HTN, CAD, carotid artery stenosis (s/p TCAR left)) Assessment & Plan Anesthesia* Anesthesia Assessment Anesthesia Assessment: Discussed sedation and/or anesthesia options, risks, benefits, and alternatives with patient/parents/legal guardian/POA. Questions invited. The patient/parents/legal guardian/POA seems to understand and agrees to proceed with anesthesia plan. Reviewed the physical assessment, medical history, allergy history and patient home medications list prior to surgery/procedure/anesthetic and documented any changes. Performed airway and anesthesia risk assessments. Anesthesia Type Anesthesia Type: General History Source History Obtained from:: Patient and Chart Anesthesia Focused Assessment* Temperature: 97.8 F Pulse Rate: 82 Blood Pressure: 133/59 Respiratory Rate: 16 Pulse Ox: 100 Oxygen Delivery Method: Room Air Airway Assessment Mouth opens: >3 cm Mallampati Score: II Neck Range of motion (ROM): Full ROM Labs Anesthesia Preop lab: CBC WBC, (4.4-11.0) 8.2 K/mm3 01/23/25, 15: RBC, (4.6-6.2) 4.22 M/mm3 L 01/23/25, 15:03 Hgb, (13.0-16.5) 9.6 g/dL L 01/23/25, 15:03 Hct, (40-54) 32.1 % L 01/23/25, 15:03 Plt Count, (150-450) 382 K/mm3 01/23/25, 15:03 CHEMISTRY Potassium, (3.3-5.1) 3.6 mmol/L 12/27/24, 14:55 Sodium, (133-145) 138 mmol/L 12/27/24, 14:55 Magnesium, (1.5-2.2) 2.2 mg/dL 01/23/25, 15: BUN, (4-19) 11 mg/dL 12/27/24, 14:55 Creatinine, (0.70-1.20) 0.97 mg/dL 12/27/24, 14:55 Glucose, (70-99) 108 mg/dL H 12/27/24, 14:55 TSH, (0.300-4.200) 1.390 uIU/mL 12/27/24, 14:55 COAG PT, (11.7-14.9) 12.8 SECONDS 01/23/25, 15:03 Pre-Assessment Diagnosis/Proposed Procedure Planned Operative Procedure(s): ERAS LAP MAXINE COLECTOMY Anesthesia History 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 When Was Last Pacemaker Check QUESTION #4 FULL TEXT: You/Your Family Experience fever (hyperthermia) with Anesthesia Last Oral Intake Last Oral intake: Last Oral Intake NPO since 04:30 01/30/25 06:09 Meds taken in AM with sips of No 01/30/25 06:09 water? 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 - funds development director: PONV - funds development director Female No 01/20/25 11:20 HX of Motion Sickness No 01/20/25 11:20 HX of N/V After Surgery No 01/20/25 11:20 Non-Smoker Yes 01/20/25 11:20 Duration of Surgery greater Yes 01/20/25 11:20 than 60 minutes Number of Risk Factors 2 01/20/25 11:20 PONV Score Moderate Risk 01/20/25 11:20 Height & Weight Height & Weight: Anesthesia: Height & Weight Height 5 ft 8 in 01/30/25 06:09 Weight: 66.678 kg 01/30/25 06:09 Body Mass Index (BMI) 22.3 01/30/25 06:09 Respiratory Assessment Respiratory Assessment - funds development director: Respiratory Tract Infection Hx - funds development director Hx Respiratory Tract Infection No 01/20/25 11:20 STOP Sleep Apnea STOP Sleep Apnea - funds development director: STOP Sleep Apnea - funds development director Hx Hypertension Yes: CONTROLLED WITH MED 01/20/25 11:20 Hx Sleep Apnea No 01/20/25 11:20 CPAP BIPAP Do you snore loudly (louder No 01/20/25 11:20 than talking or can be heard Do you often feel tired/ No 01/20/25 11:20 fatigued/ sleepy during daytime? Has anyone observed you stop No 01/20/25 11:20 breathing during sleep? STOP Results Negative 01/20/25 11:20 QUESTION #5 FULL TEXT : Do you snore loudly (louder than talking or can be heard through closed doors)? 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 Specify any problems Hx of Preganancy in last 3 N/A 01/20/25 11:20 Months Nurse Filling Out Transfusion DSCHRIBER 01/20/25 11:20 & Questions: Date: 01/20/25 01/20/25 11:20 Time: 11:21 01/20/25 11:20 Patient unable to answer at this time (ie. confused, unrespo /Reproduction History /Reproductive History - funds development director: /Reproductive Hx- funds development director Hx Now No 01/20/25 11:20 Gestational Age (in weeks): EDC: Hx Hx Para Hx Section SAB No 01/20/25 11:20 Does the father of the baby or his family experience fever w Father of the baby Malignant Hypertension history comment Active Medications Active Medications: Current Medications Generic Name Dose Route Start Last Admin Trade Name Freq PRN Reason Stop Dose Admin Acetaminophen 1,000 mg 01/30/25 07:30 01/30/25 06:15 Acetaminophen 500 Mg Tablet PO 01/30/25 07:31 1,000 mg PREOP ONE Administration Gabapentin 600 mg 01/30/25 07:30 01/30/25 06:15 Gabapentin 600 Mg Tablet PO 01/30/25 07:31 600 mg PREOP ONE Administration Cefotetan Disodium 2 gm/ 100 mls @ 200 mls/hr 01/30/25 07:30 Sodium Chloride IV 01/30/25 07:59 INTRAOP ONE Lactated Ringer's 1,000 mls @ 40 mls/hr 01/30/25 07:30 01/30/25 06:21 IV 01/31/25 08:29 40 mls/hr .Q25H ONE Administration Lactated Ringer's 1,000 mls @ 40 mls/hr 01/30/25 07:30 IV .Q25H SINDI Insulin Human Lispro 0 unit 01/30/25 07:30 01/30/25 06:26 Insulin Lispro 100 Unit/Ml Insuln.Pen SC 01/30/25 18:00 1 u Q4H PRN PRN Administration BG >/= 180, SEE PROTOCOL Protocol PFSH Medical History (Updated 01/20/25 @ 11:31 by Danita Benavidez) Anemia Cancer Wears hearing aid Wears dentures Wears glasses High cholesterol Restless legs Non-smoker Shortness of breath on exertion History of echocardiogram History of stress test Cardiology follow-up encounter Essential (primary) hypertension Benign prostatic hyperplasia without urinary obstruction Diverticulitis Asthma Home Medications Medication Instructions Recorded Last Taken Type albuterol sulfate 90 mcg/actuation 1 - 2 puff inhalation Q4H PRN PRN 05/02/14 07/11/24 Rx aerosol inhaler (Ventolin HFA) Wheezing ##1 montelukast 10 mg tablet 10 mg PO DAILY LUNGS 05/02/14 01/29/25 08:00 History (Singulair) acetaminophen 325 mg capsule 325 mg PO TID PRN fever or pain 11/20/21 Unknown History (Tylenol) mirtazapine 7.5 mg tablet 7.5 mg PO QHS RLS 04/11/24 01/29/25 23:30 History atorvastatin 40 mg tablet 40 mg PO QHS CHOLESTEROL 06/03/24 01/29/25 23:30 History nitroglycerin 0.4 mg sublingual 0.4 mg sublingual Q5M PRN chest 06/03/24 Unknown History tablet pain amlodipine 10 mg tablet 10 mg PO QDAY BP #90 tabs 06/13/24 01/29/25 08:00 Rx prasugrel HCl 10 mg tablet 10 mg PO QDAY PVD #30 tabs 07/27/24 01/29/25 08:00 Rx isosorbide mononitrate 30 mg 30 mg PO QAM HEART #30 tabs 10/18/24 01/29/25 08:00 Rx tablet,extended release 24 hr losartan 50 mg tablet 50 mg PO DAILY BP 01/10/25 01/29/25 08:00 History polysaccharide iron complex 150 mg 150 mg PO QODAY IRON 01/10/25 01/29/25 08:00 History iron capsule metronidazole 500 mg tablet 500 mg PO .COMPLEX PREP #6 tabs 01/17/25 01/29/25 23:00 Rx neomycin 500 mg tablet 500 mg PO .COMPLEX pre-op 01/17/25 01/29/25 23:30 Rx antibiotics #6 tabs albuterol sulfate 2.5 mg/3 mL 2.5 mg inhalation Q4H PRN 01/20/25 Unknown History (0.083 %) solution for nebulization shortness of breath or wheezing Allergy/AdvReac Type Severity Reaction Status Date / Time naproxen (From Aleve) Allergy Unknown palpitaions, Verified 01/30/25 06:03 SOB aspirin Allergy Shortness Verified 01/30/25 06:03 of breath ibuprofen Allergy Other Verified 01/30/25 06:03 Family History Sister Cancer Mother Bleeding disorder Surgical History (Updated 01/20/25 @ 11:31 by Danita Benavidez) Hx of left cataract extraction Hx of right cataract extraction Hx of colonoscopy with polypectomy History of transcarotid artery revascularization (TCAR) History of cardiac catheterization History of appendectomy Myringotomy tube status (~2005) Social History household members: spouse housing: condominium number of children: 2 pets and animals: Yes (maltise-dog) Smoking Status: Never smoker alcohol intake: never substance use type: does not use caffeine: Yes Type: coffee Number of servings: 2 Review of Systems (Anesthesia) ROS Narrative System reviewed and no additional complaints, except as documented. Physical Exam Const alert, oriented x3 and average body habitus Resp normal respiratory effort, normal air movement and clear to auscultation bilaterally Cardio regular rate, regular rhythm, no murmurs and diaphoretic
--- NOTE | 2025-01-30 07:04 | PCM.HP.BLA ---
History and Physical Date of Admission: 01/30/25 Intake Vital Signs 01/12/2512:17 01/17/2513:52 Height 5 ft 8 in 5 ft 8 in Weight: 148 lb BMI 22.5 BP 155/71 H Blood Pressure Location Rt brachial Position Sitting Respiration 16 Intake Visit Reasons: COLON CANCER Chief Complaint: anemia Gun Mechanic Required: No Is patient in pain?: No Allergies naproxen (From Aleve) Allergy (Unknown, Verified 01/17/25 13:53) palpitaions, SOB aspirin Allergy (Verified 01/17/25 13:53) Shortness of breath ibuprofen Allergy (Verified 01/17/25 13:53) Other Medications Medication Instructions Recorded Confirmed Type albuterol sulfate 90 mcg/actuation 1 - 2 puff inhalation Q4H PRN PRN 05/02/14 01/17/25 Rx aerosol inhaler (Ventolin HFA) Wheezing ##1 montelukast 10 mg tablet 10 mg PO DAILY LUNGS 05/02/14 01/17/25 History (Singulair) acetaminophen 325 mg capsule 325 mg PO TID PRN fever or pain 11/20/21 01/17/25 History (Tylenol) mirtazapine 7.5 mg tablet 7.5 mg PO QHS RLS 04/11/24 01/17/25 History atorvastatin 40 mg tablet 40 mg PO QHS CHOLESTEROL 06/03/24 01/17/25 History nitroglycerin 0.4 mg sublingual 0.4 mg sublingual Q5M PRN chest 06/03/24 01/17/25 History tablet pain amlodipine 10 mg tablet 10 mg PO QDAY BP #90 tabs 06/13/24 01/17/25 Rx prasugrel HCl 10 mg tablet 10 mg PO QDAY #30 tabs 07/27/24 01/17/25 Rx isosorbide mononitrate 30 mg 30 mg PO QAM HEART #30 tabs 10/18/24 01/17/25 Rx tablet,extended release 24 hr losartan 50 mg tablet 50 mg PO DAILY 01/10/25 01/17/25 History polysaccharide iron complex 150 mg 150 mg PO DAILY 01/10/25 01/17/25 History iron capsule Have you fallen in the past year?: No PFSH Medical History Tear of right biceps muscle Wears hearing aid Wears dentures Wears glasses High cholesterol Easy bruising Restless legs Non-smoker Shortness of breath on exertion History of echocardiogram History of stress test Cardiology follow-up encounter Left lateral epicondylitis Vitamin D deficiency Iron deficiency anemia Hiatal hernia Hyperlipidemia Essential (primary) hypertension Bilateral carpal tunnel syndrome Chest pain CVA (cerebral vascular accident) Benign prostatic hyperplasia without urinary obstruction Diverticulitis Syncope and collapse Asthma Cubital tunnel syndrome on left Cervical radiculopathy Cervical strain Surgical History History of transcarotid artery revascularization (TCAR) History of cardiac catheterization Hx of bilateral cataract extraction History of appendectomy Myringotomy tube status (~2005) Family History Sister Cancer Mother Bleeding disorder Social History [facility]: [facility] pets and animals: Yes (maltise-dog) Smoking Status: Never smoker alcohol intake: never substance use type: does not use caffeine: Yes Type: coffee Number of servings: 2 HPI HPI HPI: Patient is an 84-year-old male here with a right colon mass. The patient was having positive fecal occult blood and he underwent EGD and colonoscopy which revealed a hepatic flexure mass as well as several polyps in the transverse colon. Patient does not report any abdominal pain or have any gross blood in his stool. He denies nausea or vomiting. He is only abdominal surgery is appendectomy. ROS General General: Yes weight change and colon cancer; No appetite, fatigue, breast cancer or weakness HEENT HEENT: Yes eye surgery; No difficulty swallowing, eye injury, swollen glands or hoarseness Endo Endocrine: No thyroid disease, diabetes mellitus, thyroid cancer, Hair loss, heat intolerance or cold intolerance Skin Skin: No rash or changing moles Breast Breast: No left breast lump, right breast lump, nipple discharge, breast pain, abnormal mammogram, abnormal US or breast enlargement Musc Musculoskeletal: Yes arthritis; No back problems, rheumatoid arthritis, gout or joint pain Cardio Cardiovascular: No murmur, pacemaker, heart disease, atrial fibrillation, high blood pressure, heart attack, heart stent, palpitations, shortness of breath with exertion or chest pain Psych Psychiatric: No depression, anxiety or hearing voices Resp Respiratory: Yes shortness of breath, No sleep apnea, No cough, No COPD, Yes asthma, No emphysema and No wheezing Gastro Gastrointestinal: Yes abdominal pain, No nausea or vomiting, No diarrhea, No constipation, Yes blood in stool, No acid reflux, No hemorrhoids, No ulcers, No gallbladder problem and No black,tarry stools Shahbaz Hematologic: Yes blood thinners, No blood disorders, Yes bleeding, No anemia and No blood clots Neuro Neurologic: No system reviewed and no additional complaints, except as documented, No as per HPI, No abnormal gait, No abnormal hearing, No abnormal movements, No abnormal speech, No behavioral changes, No burning sensations, No confusion, No convulsions, No disequilibrium, No dizziness, No localized weakness, No frequent falls, No headache(s), No lack of coordination, No loss of vision, No memory loss, No numbness, No other visual disturbances, No radicular pain, No restless legs, No sensory deficit, No syncope, No tingling, No tremor(s), No weakness and No other Exam Const General: cooperative Orientation: alert and oriented x3 HENMT Head: normal to inspection Neck Neck: normal visual inspection and full ROM Chest Chest palpation & inspection: normal inspection of the chest Resp Effort & Inspection: normal respiratory effort Auscultation: clear to auscultation bilaterally Cardio Rate: regular rate Rhythm: regular rhythm GI Inspection: non-distended Palpation: soft and nontender Skin General: no rashes or lesions noted Neuro General: patient alert and patient oriented x3 Extrem General: full ROM Psych Appearance: grossly normal Mental Status: mental status grossly normal Assessment and Plan Assessment and Plan (1) Colon cancer: Status: Acute Plan: The patient was found to have a large mass at his hepatic flexure. He had CT of the chest abdomen and pelvis which did not reveal any signs of metastatic spread. I recommended laparoscopic right hemicolectomy to the patient. I discussed this with him in detail. I discussed the risks including but not limited to bleeding, infection, anastomotic leak, injury to other organ such as the bowel, bladder, ureter. Patient understands the risks and is willing to proceed. He was given bowel prep instructions. Axel Brito MD Pager: [facility] [address] [place] [address], [address] [place] [address] Office: I have examined the patient and the H&P has been reviewed. There are no clinical changes since date of exam.
--- NOTE | 2025-01-30 07:30 | COL_PTH ---
PATIENT: BOBY VAN LOC: [facility] U#:[id number] AGE/SX: 84/M ROOM: [facility] RE01/30/[address]: Dr. Axel Brito MD : 1940 BED: 1 DIS: 02/06/2025 SPEC #: [id number] RECD: 01/30/25 10:12 STATUS: CARROL CERVANTES #: [id number] ADELINA: 01/30/25 07:[address]: Axel Brito DEPT: SURGICAL PATHOLOGY RECD BY: Wilfrido Thomas ENTERED: 01/30/25 13:06 SP TYPE: COLON OTHR DR: MD Dr. J Luis Stratton Chi, MD Tissues: A - Colon, NOS Procedures: Surgery Specimen Level HEADER OPERATION: ERAS, laparoscopic, haile colectomy PRE-OP DIAGNOSIS: Colon cancer TISSUE SUBMITTED: A- Right hemicolon MICROSCOPIC DIAGNOSIS A. Right hemicolectomy, laparoscopic hemicolectomy: - Invasive adenocarcinoma with mucinous features, moderately-differentiated, margins free. - Tmor invades the muscularis propria, focally extending into the pericolonic adipose (pT3). - Eighteen lymph nodes negative for metastasis (0/18) (pN0). - Tubular adenoma, cecum (polyp #1). - Tubulovillous adenoma, cecum (polyp #2). SYNOPTIC REPORT FOR CARCINOMA OF THE COLON AND RECTUM: Procedure: right hemicolectomy Tumor site: cecum Gross tumor configuration: exophytic Tumor size: 5.3 x 4.6 x 1.2 cm Histologic type: adenocarcinoma with mucinous features Histologic grade: G2: Moderately differentiated Tumor Extension: Tumor invades through the muscularis propria into pericolorectal tissue Macroscopic perforation: not identified Obstruction: unknown Tumor borders: expanding growth pattern Lymphatic/vascular invasion: not identified Perineural invasion: not identified Margins: Proximal and distal margins: negative for malignancy Nearest distance of tumor to closest longitudinal margin: 6.2 cm (distal) Radial or mesenteric margin: negative for malignancy Nearest distance of tumor to radial margin: 6.2 cm Lymph nodes: Number examined: 18 Number positive: 0 Extranodal extension: NA Tumor deposits (Discontinuous extramural extension): Number present: 0 Tumor budding: Number of tumor buds in 1 "hotspot" field (per 0.785 mm2 area): 5 Score (by H&E evaluation): Intermediate score [5-9 buds] Treatment Effect: No known presurgical therapy Additional pathologic findings: tubular adenoma, tubulovillous adenoma Comments: appendix not present Tumor best seen on block(s): A13 Normal best seen on block(s): A3 pTNM: pT3pN0 Mismatch Repair Protein (MMR) Nuclear Expression by IHC: (performed on [id number]) MLH1: present/intact PMS2: absent/lost MSH2: present/intact MSH6: present/intact IHC Interpretation: ____No loss of nuclear expression of MMR proteins: low probability of microsatellite instability-high (MSI-H)# ___ Loss of nuclear expression of MLH1 and PMS2: testing for methylation of the MLH1 promoter and/or mutation of BRAF is indicated (the presence of a BRAF V600E mutation and/or MLH1 methylation suggests that the tumor is sporadic and germline evaluation is probably not indicated; absence of both MLH1 methylation and of BRAF V600E mutation suggests the possibility of Garcia syndrome, and sequencing and/or large deletion/duplication testing of germline MLH1 may be indicated)# ___ Loss of nuclear expression of MSH2 and MSH6: high probability of Garcia syndrome (sequencing and/or large deletion/duplication testing of germline MSH2 may be indicated, and, if negative, sequencing and/or large deletion/duplication testing of germline MSH6 may be indicated)# ___ Loss of nuclear expression of MSH6 only: high probability of Garcia syndrome (sequencing and/or large deletion/duplication testing of germline MSH6 may be indicated)# _X_ Loss of nuclear expression of PMS2 only: high probability of Garcia syndrome (sequencing and/or large deletion/duplication testing of germline PMS2 may be indicated)# # There are exceptions to the above IHC interpretations. These results should not be considered in isolation, and clinical correlation with genetic counseling is recommended to assess the need for germline testing. All controls show appropriate reactivity. All immunohistochemistry, in situ hybridization, and histochemical tests were developed by and are performed at the [facility], [address] [place] [address]. All tests reported here, except those addressing HER2 overexpression as a predictive marker, have not been cleared by or approved by the [place] Food and Drug Administration (FDA). The laboratory is regulated under CLIA as qualified to perform high-complexity testing. The tests are used for clinical purposes. They should not be regarded as investigational or for research. The mismatch repair proteins are evaluated by immunohistochemistry on formalin-fixed, paraffin embedded tissue, using clone ES05 for MLH1, clone A16-4 for PMS2, clone FE11 for MSH2, and clone EP49 for MSH6, and Refine/Novolink polymer detection system on a Dako or Leica/Escalante Autostainer. Convincing nuclear staining in > 1% of tumor cells is considered positive. The above synoptic report complies, in slightly modified form, with the guidelines of the 2017 [employer] [place] [employer] Protocols and the AJCC Cancer Staging Manual, 8th edition, 2017, for the reporting of cancer specimens. MICROSCOPIC DESCRIPTION Slides are reviewed. GROSS DESCRIPTION A. Received fresh and subsequently placed in formalin labeled the patient's name and date of . Designated as "right hemicolectomy" is a hemicolectomy comprised of the following: Terminal ileum: 7.[address]-pink, slightly dull serosa with focal adhesions. The stapled margin is inked green and shaved. The mucosa is way-pink. No lesions are grossly identified. Cecum: 5.[address]-pink serosa with focal adhesions. An appendix is not grossly identified. The mucosa is way-pink with focal congestion and a 2.4 x 1.1 x 0.5 cm pink-red, grossly superficial, sessile polyp (#1). Colon: 13.3 x 4.4 cm with copious amounts of attached, congested and focally adhesed mesentery, including a portion of apparent omentum; there is a 5.9 x 4.2 cm area of black tattoo ink spanning from the serosa to the mesentery, with an underlying, palpable mass. There are focal serosal adhesions and an area of serosal umbilication overlying the palpable mass, which is inked orange. The distal margin is inked blue and shaved. The radial margin is inked black. Opening reveals a polyp and a mass as follows: Mass: 5.3 x 4.[address]-white, circumferential, lobulated mass with serpiginous borders located 4.4 cm distal to polyp #1 and is located the following distances from the margins/structures: Proximal margin: 11.7 cmIleocecal valve: 3.7 cmRadial margin: 6.2 cm Distal margin: 6.2 cm Sectioning of the mass reveals that the mass extends approximately 0.4 cm into the underlying wall and grossly abuts the serosa; the mass does not grossly extend into the underlying soft tissue.Polyp #2: 2.3 x 1.8 x 1.0 cm pink-red, lobulated, grossly superficial polyp located 1.2 cm distal to the mass. Multiple way-pink to black lymph node candidates, ranging way-pink to black lymph nodes are identified, ranging 0.1 cm to 1.1 cm. Also within the container is a 3.4 x 1.0 x 0.7 cm irregular portion of mucosa which may represent a mucosal donut. Bistro Attendant sections are submitted as follows: A1: Terminal ileum margin, shavedA2: Terminal ileumA3: Ileocecal valve A4: Congested cecal mucosaA5-A6: Cecum polyp (#1)A7: Radial margin, shavedA8-A10: Mass to umbilicated [id number]:Mass, deepest extent of [id number]: Colon polyp (#2), including underlying tattoo inkA17: Colon gujkonP27: Distal margin, irukmmS73: Mucosal oquavX36: Apparent ftutejmB94: Bisected fatty lymph nodeA22: 2 bisected lymph okczpM73: 6 intact lymph muguhD99: Bisected lymph nodeA25: 2 intact lymph nodes, 1 bisected lymph node (inked black)A26: 1 intact lymph node, 2 bisected lymph nodes (1 inked black)A27: Serially sectioned lymph node, 1 intact lymph node (inked black)A28: 2 bisected lymph nodes (no ink, inked green), 1 intact lymph node (inked black) Note: The soft tissue is placed in a lymph node revealing solution for potential future lymph node search (TX) TX 01/31/2025 CPT:06162 ADDENDUM ADDENDUM ADDENDUM 02/07/2025 12:45 ADDENDUM 02/07/2025 12:45 ADDENDUM 02/07/2025 12:45 ADDENDUM 02/07/2025 12:45 ADDENDUM 02/07/2025 12:45 DUE TO THE ABNORMAL MMR PROTEINS WITH LOSS/ABSENCE OF PMS2, GENETIC CONSULTATION FOR POSSIBLE GARCIA SYNDROME IS RECOMMENDED.
[2025-01-30] MEDS: Lidocaine 1% (5 ml sdv) 5 ML Vial IV (07:38)
[2025-01-30] MEDS: fentaNYL 100 MCG/2 ML Ampul 150 MCG IV (08:45)
[2025-01-30] MEDS: BUPIVACAINE LIPOSOME/PF 20 ML VIAL OPERA.SITE (09:25)
--- NOTE | 2025-01-30 09:54 | PCM.POST.ANE ---
Anesthesia: Postop Eval I Current Vital Signs Temperature: 97.7 F Pulse Rate: 81 Blood Pressure: 160/76 Respiratory Rate: 16 Pulse Ox: 100 Oxygen Delivery Method: Room Air Assessment Airway patent: Yes Spontaneous unlabored respirations: Yes Mental status: Calm and Asleep nausea: No Vomiting: No Anesthesia Complication: No Fluid Hydration Crystalloid volume administer (ml): 800 Total IV fluid infused: 800 Progress Note Anesthesia document: Postop Eval 1 completed: Yes
--- NOTE | 2025-01-30 10:11 | PCM.OPRPT ---
Operative Report (Standard) Operative Information Date of Procedure: 01/30/25 Pre-Operative Diagnosis: Colon cancer Post-Operative Diagnosis: Colon cancer Surgery/Procedure Performed: Laparoscopic right hemicolectomy with anastomosis inhalation therapist: Yes Material Disposition Inspector: Tessie Mendez Tasks completed by international first officer: Opening & closing and Retracting Type of Anesthesia: General/Regional RN Documented Start/Stop Times: Operation Date: 01/30/25 07:30 Case Time Into Pre-Op 01/30/25 05:33 Out of Pre-Op 01/30/25 07:20 Anesthesia Start 01/30/25 07:28 Into Room 01/30/25 07:28 Procedure Start 01/30/25 07:56 Procedure End 01/30/25 09:36 Anesthesia End 01/30/25 09:46 Out of Room 01/30/25 09:46 Into Recovery 01/30/25 09:50 Procedure Start Time: 07:56 Procedure Stop Time: 09:36 Select all DRAINS/GRAFTS/IMPLANTS that apply: None Estimated Blood Loss: 50 Specimen collected: Yes Description of specimen(s) removed: Right colon Description of surgery: Patient was brought back to the operating room and general anesthesia was induced. The abdomen was prepped and draped in usual sterile fashion. Midline incision was made superior to the umbilicus and deepened to the fascia which was elevated and incised. A 12 mm port was placed into the abdomen and it was insufflated to 15 mmHg. Next under direct visualization a tap block was performed in the bilateral lateral abdominal wall. Under direct visualization a 5 mm ports placed in the epigastric area as well as in the lower abdomen. You read: It was then mobilized off of its lateral attachments as well as the terminal ileum. The hepatic flexure was taken down using Enseal. Next the midline incisions in the epigastric region in the midline were connected and electrocautery was used to come through the subcutaneous tissue and the fascia. A wound protector was placed. The bowel was brought through the incision. The tumor was identified due to tattoo and it was palpable. An area of the middle of the transverse colon was selected. A window was made in the mesentery. Using a NATA 75 stapler the transverse colon was divided. Next the small bowel was divided in the same fashion using a 75 NATA stapler. Enseal was used to take down the mesentery until the right hemicolon pedicle was identified. It was tied off using 0 silk and divided. There was good hemostasis. Hemoblast was used to ensure good hemostasis. Next an anastomosis was performed. The corner of each staple line was removed and an Endo NATA stapler was used to create a [id number] functional end-to-end enterostomy. Next the TX 60 was used to close the enterostomy. A crotch stitch was placed using 3-0 silk suture. The abdomen was inspected once more and irrigated and suctioned. The bowel was returned to the abdomen The omentum was draped over the bowel. The medical staff then changed gown and gloves. The midline fascia was closed with a #1 PDS suture starting at the top and bottom meeting in the middle. The subcutaneous tissue was irrigated and suctioned and then the skin was closed with interrupted 4-0 Monocryl sutures. Steri-Strips and bandages were applied. Patient was taken to PACU in stable condition and tolerated the procedure well. Surgical Findings: Colon cancer in the hepatic flexure Complications Complications: No Admit VTE Documentation VTE Mechan Device Prophylaxis: SCD's
--- NOTE | 2025-01-30 13:43 | POSTOPAN2_ITS ---
Anesthesia Postop Eval I Sum Postop Eval Completion status Anesthesia document: Postop Eval 1 completed: Yes Anesthesia Postop Eval I Summary Anesthesia Postop Eval I Summary: Anesthesia Postop Eval I: Assessment Summary Airway patent Yes 01/30/25 09:55 TRAFFIC SIGNAL [email or web address] Spontaneous unlabored Yes 01/30/25 09:55 TRAFFIC SIGNAL [email or web address] respirations Mental status Calm,Asleep 01/30/25 09:55 TRAFFIC SIGNAL [email or web address] nausea No 01/30/25 09:55 TRAFFIC SIGNAL [email or web address] Vomiting No 01/30/25 09:55 TRAFFIC SIGNAL [email or web address] Anesthesia Postop Eval I: Fluid Summary Crystalloid volume administer 800 01/30/25 09:55 TRAFFIC SIGNAL [email or web address] (ml) Colloids volume administered ( ml) Blood Product volume administered (ml) Total IV fluid infused 800 01/30/25 09:55 TRAFFIC SIGNAL [email or web address] Anesthesia Postop Eval I: Summary Notes Anesthesia Complication No 01/30/25 09:55 TRAFFIC SIGNAL [email or web address] Anesthesia Complication Comment: Post-operative progress note Anesthesia: Postop Eval II Evaluation Mental status: Awake Pain Level: 0 nausea: No Vomiting: No Complications Anesthesia Complication: No
--- NOTE | 2025-01-30 13:43 | PCM.POSTANE2 ---
Anesthesia Postop Eval I Sum Postop Eval Completion status Anesthesia document: Postop Eval 1 completed: Yes Anesthesia Postop Eval I Summary Anesthesia Postop Eval I Summary: Anesthesia Postop Eval I: Assessment Summary Airway patent Yes 01/30/25 09:55 [email or web address] Spontaneous unlabored Yes 01/30/25 09:55 [email or web address] [email or web address] respirations Mental status Calm,Asleep 01/30/25 09:55 [email or web address] nausea No 01/30/25 09:55 TIRE [email or web address] Vomiting No 01/30/25 09:55 [email or web address] Anesthesia Postop Eval I: Fluid Summary Crystalloid volume administer 800 01/30/25 09:55 [email or web address] (ml) Colloids volume administered ( ml) Blood Product volume administered (ml) Total IV fluid infused 800 01/30/25 09:55 [email or web address] Anesthesia Postop Eval I: Summary Notes Anesthesia Complication No 01/30/25 09:55 [email or web address] Anesthesia Complication Comment: Post-operative progress note Anesthesia: Postop Eval II Evaluation Mental status: Awake Pain Level: 0 nausea: No Vomiting: No Complications Anesthesia Complication: No
--- NOTE | 2025-01-30 16:30 | NURSING ---
deondre bedside aware of bp laying flat now 113/64-98 hr. pt alert responding appropriately. aware ivf back to ordered rate 40cc/h. deondre aware ivf were wide open during episode. 1700 this nurse placed patient on step down monitor as per nursing measure. remains bedside emotional support given. 4l maintained w/ cspo2 100% 107/60-94
--- NOTE | 2025-01-30 16:34 | NURSING ---
into room as requested by SECURITY SOLUTIONS ARCHITECT. noted pt minimally responsive. primary RN bedside states pt was attempting to get up to side of bed and went unresponsive. pt back to bed reverse trand. immediate bp 97/57-103, DEFECTIVE CIGARETTE SLITTER called.OT checked. Dr. Brito sent text. IVF opened wide open. Dr. Grewal bedside. repeat bp 130/77-102. midline incision d/t. abd soft. labs ordered. aware Dr. Brito on way to see pt.
[2025-01-30 17:49] LABS: Anion Gap 13 (5-15); Calcium,Total 8.0 mg/dL (7.6-11.0); Carbon Dioxide 19.2 mmol/L (21.0-32.0); Chloride 108 mmol/L (98-108); Estimated Creatinine Clearance 40.33 ml/min (50-250); Glucose 226 mg/dL (70-99); Potassium 4.0 mmol/L (3.3-5.1)
[2025-01-30 17:51] LABS: BUN 10 mg/dL (4-19); BUN/Creat Ratio 8.2 RATIO (10-20); Hematocrit 23.5 % (40-54); Hemoglobin 7.0 g/dL (13.0-16.5); Immature Granulocytes Count 0.110 X10^3/uL (0.0-0.0); Mean Corp Hgb Conc 29.8 g/dL (32-36); Mean Corpuscular Volume 77.3 fL (80-94); Mean Platelet Vol. 10.3 fl (6.2-12.0); NRBC Flagged by Analyzer 0 % (0-5); POSITIVE DIFFERENTIAL YES; POSITIVE MORPHOLOGY YES; Platelet Count 358 K/mm3 (150-450); RBC Distribution Width CV 21.3 % (11.6-14.6); RBC Distribution Width SD 59.9 fl (35.1-43.9); Red Blood Count 3.04 M/mm3 (4.6-6.2); White Blood Count 16.2 K/mm3 (4.4-11.0)
[2025-01-30 18:50] LABS: Differential Indicated SCAN CRITERIA MET
--- NOTE | 2025-01-30 19:03 | NURSING ---
late entry note: [address] Brito after called lab requesting results of stat CBC. "incase you didn't see Mary Alcazar I called to get CBC- wbc 16.2, hgb 7.0 hct 23.5 creat 1.24 VS 111/59- 95- 100%4l Althea 1857 text response I didn't 1900: Dr. Brito called discussed pt's abdomen, labs, hr on monitor. receiving orders to order to transfuse 2units PRBC. discussed ordering a CT of abd, that Dr. Brito would order this as wanted 2 units PRBC to be done prior to CT. while on phone noted pt's HR had increased to 105. then noted suddenly HR started dropping to 60's and into 40's. BP had cycled to be in the 60's. Dr. Brito informed needed to go. Staff at nurses' station informed of emergant event. Into patient's room to find patient laying supine, unresponsive with unorganized breathing. noted large amt of blood under patient, on bed, and dripping to floor. Code Blue button hit and patient placed in reverse trand. code pads applied. pulse present. ivf opened to wide open. another staff member stated they talked with Dr. Brito and he's on his way. 2nd iV site connected to IVf. staff member entering the 2units prbc order. pt started to become more responsive. Amisha SOLVENT PLANT TREATER bedside. Dr. Collier to unit. see code documentation pt transported to ICU5.
--- NOTE | 2025-01-30 19:14 | NURSING ---
Call placed to Eri with update on pt status and notified of transfer to ICU.
--- NOTE | 2025-01-30 19:39 | PN_ITS ---
Progress Note I was called due to low hemoglobin on CBC from his ENVIRONMENTAL CHANGE ANALYST called earlier this evening and they called another CODE BLUE while I was on the phone. I rushed to find the patient talkative and being transferred to the ICU. His pressure is in the 110s over 80s and he is not tachycardic. He had a large bloody bowel movement upstairs on the floor. I am concerned for anastomotic bleeding but at this time I think the patient is not stable enough for colonoscopy. I would like to give the patient 2 units of blood and recheck hemoglobin. If the patient continues to have large bloody bowel movements overnight he may need to scope overnight to attempt to clip the bleed. Patient has 2 large-bore IVs and I will make him back to NPO. Axel Brito MD Pager: [facility] [address] [place] [address], [address] [place] [phone] Office:
--- NOTE | 2025-01-30 19:41 | PCM.CONS.GEN ---
Assessment & Plan Assessment/Plan (1) Colon cancer: (2) Fecal occult blood test positive: (3) Syncopal episodes: PLAN: Plan 1. syncopal episode secondary to postoperative gastrointestinal hemorrhage. Dr. Smart his primary surgeon consulted hospitalist service to follow this case. Will add IV Protonix 40 mg IV twice daily. Patient has orders for 2 units packed red blood cells to be typed crossed and transfused when they are ready and to get an H&H 45 minutes following that transfusion. Current blood pressure is stable and will maintain mean arterial pressure at 65. Will maintain patient in ICU care overnight until he is hemodynamically stable and bleeding is stopped. 2. Colon cancer–status post right hemicolectomy earlier today 3 CODE STATUS full verified 4. DVT prophylaxis–SCDs HPI Consult Data Date of Consult: 01/30/25 HPI Narrative Reason for Consultation: acute gastrointestinal bleed post OP HPI Narrative: BOBY VAN, is a 84 M who hospitalist team responded to status post MADELINE CL[place]ON on the [facility] floor. Patient was found unresponsive by nurse on the floor and called MADELINE BLUE. After patient was placed in Trendelenburg position he had spontaneous pulse and respiration and it is unclear if he truly coded or if he had a syncopal episode. The patient is status post right hemicolectomy earlier today for a mass in his hepatic flexure. Patient had denied any hematochezia or melena prior to his procedure. He denies any nausea or vomiting and is now alert and responding appropriately after being transferred to the intensive care unit following his syncopal episode. A large amount of hematochezia approximately 2 units was found in clotted form in his adult diaper. Patient did express wishes to remain full code at this time. Hospitalist service was consulted by Dr. Brito general surgeon. At this time patient has 2 units to be typed and screened and transfused when they are ready and the plan would be to monitor no overnight provide the patient remains hemodynamically stable and consider colonoscopy if GI bleeding remains present. [facility] Medical History (Updated 01/30/25 @ 19:[address] Chapincito Rich MD) Anemia Cancer Wears hearing aid Wears dentures Wears glasses High cholesterol Restless legs Non-smoker Shortness of breath on exertion History of echocardiogram History of stress test Cardiology follow-up encounter Essential (primary) hypertension Benign prostatic hyperplasia without urinary obstruction Diverticulitis Asthma Home Medications Medication Instructions Recorded Last Taken Type albuterol sulfate 90 mcg/actuation 1 - 2 puff inhalation Q4H PRN PRN 05/02/14 07/11/24 Rx aerosol inhaler (Ventolin HFA) Wheezing ##1 montelukast 10 mg tablet 10 mg PO DAILY LUNGS 05/02/14 01/29/25 08:00 History (Singulair) acetaminophen 325 mg capsule 325 mg PO TID PRN fever or pain 11/20/21 Unknown History (Tylenol) mirtazapine 7.5 mg tablet 7.5 mg PO QHS RLS 04/11/24 01/29/25 23:30 History atorvastatin 40 mg tablet 40 mg PO QHS CHOLESTEROL 06/03/24 01/29/25 23:30 History nitroglycerin 0.4 mg sublingual 0.4 mg sublingual Q5M PRN chest 06/03/24 Unknown History tablet pain amlodipine 10 mg tablet 10 mg PO QDAY BP #90 tabs 06/13/24 01/29/25 08:00 Rx prasugrel HCl 10 mg tablet 10 mg PO QDAY PVD #30 tabs 07/27/24 01/29/25 08:00 Rx isosorbide mononitrate 30 mg 30 mg PO QAM HEART #30 tabs 10/18/24 01/29/25 08:00 Rx tablet,extended release 24 hr losartan 50 mg tablet 50 mg PO DAILY BP 01/10/25 01/29/25 08:00 History polysaccharide iron complex 150 mg 150 mg PO QODAY IRON 01/10/25 01/29/25 08:00 History iron capsule metronidazole 500 mg tablet 500 mg PO .COMPLEX PREP #6 tabs 01/17/25 01/29/25 23:00 Rx neomycin 500 mg tablet 500 mg PO .COMPLEX pre-op 01/17/25 01/29/25 23:30 Rx antibiotics #6 tabs albuterol sulfate 2.5 mg/3 mL 2.5 mg inhalation Q4H PRN 01/20/25 Unknown History (0.083 %) solution for nebulization shortness of breath or wheezing Allergy/AdvReac Type Severity Reaction Status Date / Time naproxen (From Aleve) Allergy Unknown palpitaions, Verified 01/30/25 06:03 SOB aspirin Allergy Shortness Verified 01/30/25 06:03 of breath ibuprofen Allergy Other Verified 01/30/25 06:03 Family History Sister Cancer Mother Bleeding disorder Surgical History (Updated 01/20/25 @ 11:31 by Danita Benavidez) Hx of left cataract extraction Hx of right cataract extraction Hx of colonoscopy with polypectomy History of transcarotid artery revascularization (TCAR) History of cardiac catheterization History of appendectomy Myringotomy tube status (~2005) Social History household members: [facility] number of children: 2 pets and animals: Yes (maltise-dog) Smoking Status: Never smoker alcohol intake: never substance use type: does not use caffeine: Yes Type: coffee Number of servings: 2 ROS Constitutional Constitutional: Reports malaise and weakness; Denies chills or fever(s) Eyes Eyes: Denies blurry vision ENT HEENT: Denies abnormal hearing Respiratory/Chest Respiratory/Chest: Denies cough Gastrointestinal Gastrointestinal: Reports abdominal pain and hematochezia; Denies nausea or vomiting Genitourinary Genitourinary: Denies difficulty urinating Musculoskeletal Musculoskeletal: Denies back pain Neurologic Neurologic: Denies abnormal gait Psychiatric Psychiatric: Denies anxiety Physical Exam Const alert and oriented x3 General Appearance: cooperative HEENT normocephalic and head/scalp atraumatic Eyes PERRL Neck no lymphadenopathy Resp normal respiratory effort, no retractions, no use of accessory muscles and clear to auscultation bilaterally Cardio regular rate, regular rhythm, S1 normal heart sound and S2 normal heart sound GI soft to palpation Palpation: tender Positive for RLQ Extremity normal to inspection Neuro oriented x3, moves all extremities and no focal motor deficits Sensorium / Orientation: alert Psych affect normal Lab / Micro Data 01/30/25 16:49 01/30/25 16:49 Labs: Laboratory Results - last 24 hr 01/30/25 06:02: POC Glucose 203 H 01/30/25 09:59: POC Glucose 125 H 01/30/25 16:49: WBC 16.2 H, RBC 3.04 L, Hgb 7.0 L, Hct 23.5 L, MCV 77.3 L, MCH 23.0 L, MCHC 29.8 L, RDW Std Deviation 59.9 H, RDW Coeff of Heriberto 21.3 H, Plt Count 358, MPV 10.3, Immature Gran % (Auto) 0.700, Neut % (Auto) 89.5 H, Lymph % (Auto) 2.8 L, Moore % (Auto) 6.8, Eos % (Auto) 0.0, Baso % (Auto) 0.2, Absolute Neuts (auto) 14.5 H, Absolute Lymphs (auto) 0.46 L, Nucleated RBC % 0, Sodium 140, Potassium 4.0, Chloride 108, Carbon Dioxide 19.2 L, Anion Gap 13, BUN 10, Creatinine 1.24 H, Estim Creat Clear Calc 40.33 L, Est GFR (MDRD) Non-Af 57 L, BUN/Creatinine Ratio 8.2 L, Glucose 226 H, Calcium 8.0 Charges/Coding Visit Charges Office Visits / Consults: 19126 OV L3 New 30min
[2025-01-30] MEDS: CHLORHEXIDINE GLUC 2% CLOTH 1 EACH TOWELETTE TOPICAL (20:30)
[2025-01-30] MEDS: Pantoprazole Sodium 40 MG in 0.9% Normal Saline (100mL MB+) 100 ML 300 MG IV (20:51)
[2025-01-30 22:23] LABS: Differential Comment SCANNED
[2025-01-30 22:24] LABS: Anisocytosis 2+; Polychromasia 1+
[2025-01-31] VITALS (32 sets, daily range): BP systolic 103–146; BP diastolic 48–71; PULSE 74–107; RESP 14–26; TEMP 36.4–37.2; O2SAT 93–99; BMI 22.1; BMI 22.4
[2025-01-31 03:45] LABS: Hematocrit 30.2 % (40-54); Hemoglobin 9.5 g/dL (13.0-16.5); Immature Granulocytes Count 0.100 X10^3/uL (0.0-0.0); Mean Corp Hgb Conc 31.5 g/dL (32-36); Mean Corpuscular Volume 79.9 fL (80-94); Mean Platelet Vol. 10.3 fl (6.2-12.0); NRBC Flagged by Analyzer 0 % (0-5); POSITIVE DIFFERENTIAL YES; Platelet Count 274 K/mm3 (150-450); RBC Distribution Width CV 18.6 % (11.6-14.6); RBC Distribution Width SD 53.8 fl (35.1-43.9); Red Blood Count 3.78 M/mm3 (4.6-6.2); White Blood Count 12.9 K/mm3 (4.4-11.0)
[2025-01-31 03:46] LABS: Differential Indicated SCAN CRITERIA MET
[2025-01-31 04:02] LABS: Anion Gap 11 (5-15); BUN 14 mg/dL (4-19); BUN/Creat Ratio 11.2 RATIO (10-20); Calcium,Total 8.0 mg/dL (7.6-11.0); Carbon Dioxide 21.8 mmol/L (21.0-32.0); Chloride 107 mmol/L (98-108); Estimated Creatinine Clearance 38.61 ml/min (50-250); Glucose 171 mg/dL (70-99); Potassium 4.2 mmol/L (3.3-5.1)
[2025-01-31 04:23] LABS: Acanthocytes 1+; Anisocytosis 1+; Crenated RBC 1+; Differential Comment SCANNED; Polychromasia 1+; Schistocytes RARE; Tear Drop Cell 1+
--- NOTE | 2025-01-31 07:17 | PN.SURG_ITS ---
Subjective Subjective Patient reports he is comfortable. He had another small bowel movement overnight which was mostly mucus with some blood mixed in but it was not as bloody as before. Objective Data Objective Data Vital Signs: Vital Signs Temp Pulse Resp BP Pulse Ox O2 Del Method O2 Flow Rate 98.2 F 90 15 136/60 H 95 Room Air 2 01/31/25 06:00 01/31/25 07:00 01/31/25 07:00 01/31/25 07:00 01/31/25 07:00 01/31/25 07:00 01/30/25 22:17 Oxygen Flow Rate (L/min) 2 Oxygen Delivery Method Room Air Weight: 145 lb 4.554 oz Body Mass Index (BMI) 22.1 Intake & Output: Intake and Output for Last 24 Hours 01/29/25 01/30/25 01/31/25 23:59 23:59 23:59 Intake Total 1500.67 / 1500.67 400 / 400 Output Total 55 / 55 0 / 0 Balance 1445.67 / 1445.67 400 / 400 Lab / Micro Data 01/31/25 03:13 01/31/25 03:13 Labs: Laboratory Results - last 24 hr 01/30/25 09:59: POC Glucose 125 H 01/30/25 16:28: POC Glucose 181 H 01/30/25 16:49: WBC 16.2 H, RBC 3.04 L, Hgb 7.0 L, Hct 23.5 L, MCV 77.3 L, MCH 23.0 L, MCHC 29.8 L, RDW Std Deviation 59.9 H, RDW Coeff of Heriberto 21.3 H, Plt Count 358, MPV 10.3, Immature Gran % (Auto) 0.700, Neut % (Auto) 89.5 H, Lymph % (Auto) 2.8 L, [place] % (Auto) 6.8, Eos % (Auto) 0.0, Baso % (Auto) 0.2, Absolute Neuts (auto) 14.5 H, Absolute Lymphs (auto) 0.46 L, Nucleated RBC % 0, Differential Comment SCANNED, Platelet Estimate ADEQUATE, Polychromasia 1+, Anisocytosis 2+, Ovalocytes 1+, Sodium 140, Potassium 4.0, Chloride 108, Carbon Dioxide 19.2 L, Anion Gap 13, BUN 10, Creatinine 1.24 H, Estim Creat Clear Calc 40.33 L, Est GFR (MDRD) Non-Af 57 L, BUN/Creatinine Ratio 8.2 L, Glucose 226 H, Calcium 8.0 01/30/25 19:40: Blood Type O POSITIVE, Antibody Screen NEGATIVE, Crossmatch See Detail 01/31/25 03:13: WBC 12.9 H, RBC 3.78 L, Hgb 9.5 L, Hct 30.2 L, MCV 79.9 L, MCH 25.1 L, MCHC 31.5 L D, RDW Std Deviation 53.8 H, RDW Coeff of Heriberto 18.6 H, Plt Count 274, MPV 10.3, Immature Gran % (Auto) 0.800, Neut % (Auto) 77.5 H, Lymph % (Auto) 6.0 L, Preston % (Auto) 15.5 H, Eos % (Auto) 0.0, Baso % (Auto) 0.2, A bsolute Neuts (auto) 10.0 H, Absolute Lymphs (auto) 0.77 L, Nucleated RBC % 0, Differential Comment SCANNED, Platelet Estimate ADEQUATE, Polychromasia 1+, Anisocytosis 1+, Tear Drop Cells 1+, Ovalocytes 2+, Crenated Cell 1+, Acanthocytes (Spur) 1+, Schistocytes RARE, Sodium 139, Potassium 4.2, Chloride 107, Carbon Dioxide 21.8, Anion Gap 11, BUN 14, Creatinine 1.28 H, Estim Creat Clear Calc 38.61 L, Est GFR (MDRD) Non-Af 55 L, BUN/Creatinine Ratio 11.2, G lucose 171 H, Calcium 8.0 Physical Exam Const oriented x3 and no apparent distress Resp normal respiratory effort GI soft to palpation and non-tender Assessment & Plan Assessment/Plan (1) Colon cancer: PLAN: The patient had right hemicolectomy yesterday for colon cancer. He had an RE RECORDING MIXER called on him in the afternoon for dizziness. CBC was ordered. The CBC came back with a white count of 16 and a hemoglobin of 7. I called in to transfuse the patient while I was on the phone the patient had a large bloody bowel movement and a CODE BLUE was called. The patient did not have any chest compressions or cardiopulmonary arrest. I transfused him with 2 units of blood yesterday and his hemoglobin responded appropriately and soraida to 9.5. This morning his white count is decreasing. He did another small bowel movement overnight and it was mostly mucus with some blood mixed and did not appear as bloody as his first bowel movement. He is not complaining of any abdominal pain and his abdomen is soft and nontender. At this point it appears that his bleeding may have stopped on its own. I would like to avoid a colonoscopy if possible. I will continue to keep the patient n.p.o. this morning in case he does need a colonoscopy. If he makes it through till the afternoon and we checked her hemoglobin and is stable I will start clear liquids. If the patient has more bloody bowel movements or his hemoglobin drops at noon then I will plan for colonoscopy. Axel Brito MD Pager: [facility] [address] [place] [address], [address] [place] [address] Office:
--- NOTE | 2025-01-31 07:28 | PCM.PN.HOSP ---
Objective Data Objective Data Vital Signs: Vital Signs Temp Pulse Resp BP Pulse Ox O2 Del Method O2 Flow Rate 98.2 F 90 15 136/60 H 95 Room Air 2 01/31/25 06:00 01/31/25 07:00 01/31/25 07:00 01/31/25 07:00 01/31/25 07:00 01/31/25 07:00 01/30/25 22:17 Oxygen Flow Rate (L/min) 2 Oxygen Delivery Method Room Air Weight: 145 lb 4.554 oz Body Mass Index (BMI) 22.1 Intake & Output: Intake and Output for Last 24 Hours 01/29/25 01/30/25 01/31/25 23:59 23:59 23:59 Intake Total 1500.67 / 1500.67 400 / 400 Output Total 55 / 55 0 / 0 Balance 1445.67 / 1445.67 400 / 400 Lab / Micro Data 01/31/25 03:13 01/31/25 03:13 Labs: Laboratory Results - last 24 hr 01/30/25 09:59: POC Glucose 125 H 01/30/25 16:28: POC Glucose 181 H 01/30/25 16:49: WBC 16.2 H, RBC 3.04 L, Hgb 7.0 L, Hct 23.5 L, MCV 77.3 L, MCH 23.0 L, MCHC 29.8 L, RDW Std Deviation 59.9 H, RDW Coeff of Heriberto 21.3 H, Plt Count 358, MPV 10.3, Immature Gran % (Auto) 0.700, Neut % (Auto) 89.5 H, Lymph % (Auto) 2.8 L, [place] % (Auto) 6.8, Eos % (Auto) 0.0, Baso % (Auto) 0.2, Absolute Neuts (auto) 14.5 H, Absolute Lymphs (auto) 0.46 L, Nucleated RBC % 0, Differential Comment SCANNED, Platelet Estimate ADEQUATE, Polychromasia 1+, Anisocytosis 2+, Ovalocytes 1+, Sodium 140, Potassium 4.0, Chloride 108, Carbon Dioxide 19.2 L, Anion Gap 13, BUN 10, Creatinine 1.24 H, Estim Creat Clear Calc 40.33 L, Est GFR (MDRD) Non-Af 57 L, BUN/Creatinine Ratio 8.2 L, Glucose 226 H, Calcium 8.0 01/30/25 19:40: Blood Type O POSITIVE, Antibody Screen NEGATIVE, Crossmatch See Detail 01/31/25 03:13: WBC 12.9 H, RBC 3.78 L, Hgb 9.5 L, Hct 30.2 L, MCV 79.9 L, MCH 25.1 L, MCHC 31.5 L D, RDW Std Deviation 53.8 H, RDW Coeff of Heriberto 18.6 H, Plt Count 274, MPV 10.3, Immature Gran % (Auto) 0.800, Neut % (Auto) 77.5 H, Lymph % (Auto) 6.0 L, [place] % (Auto) 15.5 H, Eos % (Auto) 0.0, Baso % (Auto) 0.2, Absolute Neuts (auto) 10.0 H, Absolute Lymphs (auto) 0.77 L, Nucleated RBC % 0, Differential Comment SCANNED, Platelet Estimate ADEQUATE, Polychromasia 1+, Anisocytosis 1+, Tear Drop Cells 1+, Ovalocytes 2+, Crenated Cell 1+, Acanthocytes (Spur) 1+, Schistocytes RARE, Sodium 139, Potassium 4.2, Chloride 107, Carbon Dioxide 21.8, Anion Gap 11, BUN 14, Creatinine 1.28 H, Estim Creat Clear Calc 38.61 L, Est GFR (MDRD) Non-Af 55 L, BUN/Creatinine Ratio 11.2, Glucose 171 H, Calcium 8.0 Physical Exam Narrative Seen and examined. Patient has large bloody bowel movement on [facility] floor. Low hemoglobin on CBC and COPYING MACHINE REPAIRER was called in the evening as patient was found less responsive/altered mental status. Later on, CODE BLUE was called but most probably it was syncope/short period of unresponsiveness then it came back to normal since it was talkative. Patient had a large bloody bowel movement and hemoglobin dropped into the limits of PRBC transfused. In meantime patient was transferred to ICU last night. NSR on the alarm security or surveillance monitor Physical General: Alert, Oriented x3, Cooperative. BMI 22.1 KG per square meter. HEENT: Atraumatic, PERRLA, EOMI, Normocephalic. Oral: No Gingival or Mucosal Lesions/ Ulcerations Neck: Supple, No JVD, Negative Carotid Bruits Chest wall/Lungs: Air entry diminished in bilateral lung bases. No crepitation/rhonchi Cardiovascular: Regular rate and rhythm, Normal S1,S2, No M/G/R Abdomen: Bowel Sounds absent. Surgical dressing in midline. Dry. Mild expected tenderness. No obvious distention. : No dysuria. No renal angle tenderness. No suprapubic tenderness. Extremities: No edema, Capillary Refill Less than 3 Seconds Skin: No rashes, No breakdown Musculoskeletal: No Tenderness to Palpation of Joints or Extremities Neurological: Cranial nerves II-XII grossly intact, DTR 2+/4. No acute focal neurological deficit. 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 Colon cancer/large masslike hepatic flexure status post laparoscopic right hemicolectomy with anastomosis on 01/30/2025: Patient was admitted on [facility] floor after surgery but transferred overnight to ICU. Currently hemodynamically, heart rate, blood pressure, level of consciousness and respiration normal. school bus monitor NSR at 90/min. BP 136/60. Pain control, clinical monitoring and incentive spirometry and bilateral SCDs. 2. Rapid response, probably syncopal episode/unconsciousness most likely due to GI bleed/hypotension: Blood pressure was tenuous, documented RN 6/62 twice about 9 to 10 PM on 01/30/2025. Earlier patient had rapid response for altered mental status and then CODE BLUE for syncopal episode related with large bloody rectal bleed 3. Acute blood loss anemia due to surgery/associated with surgery: Preoperative hemoglobin 9.6 dropped to 7.0 with large rectal bleed as per nursing staff. It was also accompanied with syncopal event. Patient had 2 units of PRBC transfusion and posttransfusion 9.5 g% 4. DVT prophylaxis–SCDs. Currently pharmacological prophylaxis contraindicated because of severe anemia and GI bleed 5. CODE STATUS: Full code Charges/Coding Visit Charges Inpatient E&M: 30287 Subs Hosp L3
[2025-01-31] MEDS: Pantoprazole Sodium 40 MG in 0.9% Normal Saline (100mL MB+) 100 ML 330 MG IV ×2 (09:18→23:24)
--- NOTE | 2025-01-31 11:32 | CASEMGMT ---
Social Work SW did meet w/pt to complete POA papers, as pt had indicated to CM he wanted to complete POA documents. Pt now states does not want to do the documents. SW provided to pt blank copies of LW and POA along w/SW Rack card, encouraged him to call once discharged to make an appt to return to complete documents. Pt states understanding. GADIEL Kearney
--- NOTE | 2025-01-31 11:33 | CASEMGMT ---
RUBA URIBE Assessment Face to Face with patient for initial transition planning/care coordination assessment. RN JOJO introduced self and role at [facility], pt voices understanding. Pt is A&Ox4 and is resting comfortably in bed and is calm. Pt at bedside. Per chart review, pt underwent surgery yesterday and had a vasovagal episode requiring ICU transfer. Care providers, pharmacy, and demographics verified. Admitting dx: Colon Cancer. Pt denies the need for Palliative Care at this time. LACE Strata: 2 PCP: Artem Specialists: Reddy (Vascular), [place] Preferred Pharmacy: [facility] Insurance: [employer] [facility] Prescription Benefit: Yes LNOK: Akanksha (W) Living Arrangements: Pt lives with his in a single story home with 2 steps to enter ADLs/IADLs: Pt states that he is entirely independent. However, current 6-Click score is 9 and PT is pending. Pt currently denies the need for HH or OP Tx. Transportation: Self, DME: Inhaler, access to a FWW. HHC/SNF: Denies hx or needs Pt’s goal: Home Plan: Home with pt . Follow PT eval. Pt states that he feels safe returning home with his once medically ready. Pt and pt decline further questions, concerns, or needs at this time. CM to continue to follow. Reji Bingham RN, CM
[2025-01-31 12:02] LABS: Hematocrit 26.1 % (40-54); Hemoglobin 8.5 g/dL (13.0-16.5)
--- NOTE | 2025-01-31 13:28 | PCM.PN.BLA ---
Progress Note I checked back up on the patient this afternoon. He is feeling well and not having no abdominal pain. He has not had any bowel movements today including blood. His hemoglobin did slightly decreased to 8.5 from 9.5. I will recheck in 6 hours. Continue ICU care. I will start some clear liquids. If the patient starts to bleed again he may need colonoscopy. Currently it seems the bleeding is stopped. Axel Brito MD Pager: [facility] [address] [place] [address] [address] [place] [address] Office:
[2025-01-31] MEDS: 0.9% Normal Saline (1000mL) 1,000 ML 50 ML IV (18:26)
[2025-01-31 18:46] LABS: Hematocrit 24.2 % (40-54); Hemoglobin 7.6 g/dL (13.0-16.5); Immature Granulocytes Count 0.160 X10^3/uL (0.0-0.0); Mean Corp Hgb Conc 31.4 g/dL (32-36); Mean Corpuscular Volume 80.7 fL (80-94); Mean Platelet Vol. 10.7 fl (6.2-12.0); NRBC Flagged by Analyzer 0 % (0-5); POSITIVE DIFFERENTIAL YES; Platelet Count 273 K/mm3 (150-450); RBC Distribution Width CV 19.4 % (11.6-14.6); RBC Distribution Width SD 56.8 fl (35.1-43.9); Red Blood Count 3.00 M/mm3 (4.6-6.2); White Blood Count 15.2 K/mm3 (4.4-11.0)
[2025-01-31 18:58] LABS: Differential Indicated SCAN CRITERIA MET
[2025-01-31 20:43] LABS: Differential Comment SCANNED
[2025-01-31 20:45] LABS: Anisocytosis 2+; Polychromasia 2+
[2025-01-31] MEDS: 0.9% Saline Lock 10 ML Syringe IV ×2 (21:19→23:28)
[2025-02-01] VITALS (31 sets, daily range): BP systolic 102–149; BP diastolic 51–88; PULSE 77–93; RESP 14–22; TEMP 36.2–37.2; O2SAT 87–100; BMI 22.9
[2025-02-01 04:42] LABS: Hematocrit 25.2 % (40-54); Hemoglobin 8.3 g/dL (13.0-16.5); Immature Granulocytes Count 0.180 X10^3/uL (0.0-0.0); Mean Corp Hgb Conc 32.9 g/dL (32-36); Mean Corpuscular Volume 79.5 fL (80-94); Mean Platelet Vol. 10.1 fl (6.2-12.0); NRBC Flagged by Analyzer 0 % (0-5); POSITIVE DIFFERENTIAL YES; Platelet Count 228 K/mm3 (150-450); RBC Distribution Width CV 18.4 % (11.6-14.6); RBC Distribution Width SD 53.9 fl (35.1-43.9); Red Blood Count 3.17 M/mm3 (4.6-6.2); White Blood Count 14.8 K/mm3 (4.4-11.0)
[2025-02-01 05:10] LABS: Differential Indicated SCAN CRITERIA MET
[2025-02-01 05:13] LABS: Differential Comment SCANNED
[2025-02-01 06:54] LABS: Anion Gap 9 (5-15); BUN 21 mg/dL (4-19); BUN/Creat Ratio 17.9 RATIO (10-20); Calcium,Total 7.8 mg/dL (7.6-11.0); Carbon Dioxide 23.7 mmol/L (21.0-32.0); Chloride 105 mmol/L (98-108); Estimated Creatinine Clearance 44.22 ml/min (50-250); Glucose 126 mg/dL (70-99); Potassium 4.0 mmol/L (3.3-5.1)
--- NOTE | 2025-02-01 07:43 | PCM.PN.HOSP ---
Objective Data Objective Data Vital Signs: Vital Signs Temp Pulse Resp BP Pulse Ox O2 Del Method O2 Flow Rate 97.5 F L 83 17 137/68 H 95 Nasal Cannula 2 02/01/25 06:00 02/01/25 07:00 02/01/25 07:00 02/01/25 07:00 02/01/25 07:00 02/01/25 07:00 02/01/25 07:00 Oxygen Flow Rate (L/min) 2 Oxygen Delivery Method Nasal Cannula Weight: 151 lb 2 oz Body Mass Index (BMI) 22.9 Intake & Output: Intake and Output for Last 24 Hours 01/30/25 01/31/25 02/01/25 23:59 23:59 23:59 Intake Total 1500.67 / 1500.67 1595.83 / 1595.83 250 / 250 Output Total 55 / 55 125 / 125 300 / 300 Balance 1445.67 / 1445.67 1470.83 / 1470.83 -50 / -50 Lab / Micro Data 02/01/25 04:24 02/01/25 04:24 Labs: Laboratory Results - last 24 hr 01/30/25 19:40: Crossmatch See Detail 01/31/25 11:43: Hgb 8.5 L, Hct 26.1 L 01/31/25 17:59: WBC 15.2 H, RBC 3.00 L, Hgb 7.6 L, Hct 24.2 L, MCV 80.7, MCH 25.3 L, MCHC 31.4 L, RDW Std Deviation 56.8 H, RDW Coeff of Heriberto 19.4 H, Plt Count 273, MPV 10.7, Immature Gran % (Auto) 1.100 H, Neut % (Auto) 82.9 H, Lymph % (Auto) 3.5 L, [place] % (Auto) 12.4 H, Eos % (Auto) 0.0, Baso % (Auto) 0.1, Absolute Neuts (auto) 12.6 H, Absolute Lymphs (auto) 0.54 L, Nucleated RBC % 0, Differential Comment SCANNED, Platelet Estimate ADEQUATE, Polychromasia 2+, Anisocytosis 2+ 02/01/25 04:24: WBC 14.8 H, RBC 3.17 L, Hgb 8.3 L, Hct 25.2 L, MCV 79.5 L, MCH 26.2 L, MCHC 32.9, RDW Std Deviation 53.9 H, RDW Coeff of Heriberto 18.4 H, Plt Count 228, MPV 10.1, Immature Gran % (Auto) 1.200 H, Neut % (Auto) 79.3 H, Lymph % (Auto) 6.2 L, [place] % (Auto) 13.0 H, Eos % (Auto) 0.1, Baso % (Auto) 0.2, Absolute Neuts (auto) 11.7 H, Absolute Lymphs (auto) 0.92, Nucleated RBC % 0, Differential Comment SCANNED, Sodium 137, Potassium 4.0, Chloride 105, Carbon Dioxide 23.7, Anion Gap 9, BUN 21 H, Creatinine 1.16, Estim Creat Clear Calc 44.22 L, Est GFR (MDRD) Non-Af 61, BUN/Creatinine Ratio 17.9, Glucose 126 H, Calcium 7.8 Physical Exam Narrative Seen and examined. Overnight his oxygen dropped slightly 87 to 88% on room air therefore was put on 2 L of oxygen. Currently 95% on 2 L of oxygen. His hemoglobin also dropped to 7.6 and had 1 units of PRBC transfusion Patient sinus rhythm on director blood bank. Has not passed flatus yet Physical General: Alert, Oriented x3, Cooperative. BMI 22.1 KG per square meter. HEENT: Atraumatic, PERRLA, EOMI, Normocephalic. Oral: No Gingival or Mucosal Lesions/ Ulcerations Neck: Supple, No JVD, Negative Carotid Bruits Chest wall/Lungs: Air entry diminished in bilateral lung bases. No crepitation/rhonchi Cardiovascular: Regular rate and rhythm, Normal S1,S2, No M/G/R Abdomen: Bowel Sounds absent. Surgical dressing in midline. Dry. Mild midline expected tenderness. Mild abdominal distention : No dysuria. No renal angle tenderness. No suprapubic tenderness. Extremities: No edema, Capillary Refill Less than 3 Seconds Skin: No rashes, No breakdown Musculoskeletal: No Tenderness to Palpation of Joints or Extremities Neurological: Cranial nerves II-XII grossly intact, DTR 2+/4. No acute focal neurological deficit. 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 Patient has large bloody bowel movement on MedSurg floor. Low hemoglobin on CBC and AUTHORIZATION COORDINATOR was called in the evening as patient was found less responsive/altered mental status. Later on, CODE BLUE was called but most probably it was syncope/short period of unresponsiveness then it came back to normal. On 01/30, the patient was transferred to ICU last night. NSR on the director blood bank 1. Colon cancer/large masslike hepatic flexure status post laparoscopic right hemicolectomy with anastomosis on 01/30/2025: Patient was admitted on MedSurg floor after surgery but transferred overnight to ICU. Currently hemodynamically, heart rate, blood pressure, level of consciousness and respiration normal. dental services director NSR at 90/min. BP 136/60. Pain control, clinical monitoring and incentive spirometry and bilateral SCDs. 02/01: Did not pass flatus yet n.p.o. has not passed flatus yet. Mild abdominal distention. Plan for EGD today 2. Rapid response, probably syncopal episode/unconsciousness most likely due to GI bleed/hypotension: Blood pressure was tenuous, documented RN 6/62 twice about 9 to 10 PM on 01/30/2025. Earlier patient had rapid response for altered mental status and then CODE BLUE for syncopal episode related with large bloody rectal bleed 02/01: Hemodynamically, no acute issues overnight. Mild hypoxia 87 to 88% on room air on 2 L of oxygen 3. Acute blood loss anemia due to surgery/associated with surgery: Preoperative hemoglobin 9.6 dropped to 7.0 with large rectal bleed as per nursing staff. It was also accompanied with syncopal event. Patient had 2 units of PRBC transfusion and posttransfusion 9.5 g% 02/01: Patient had drop in hemoglobin from 8.5-7.6 and had 1 unit of PRBC transfusion. Posttransfusion 8.3/25%. Platelet count is normal. 4. DVT prophylaxis–SCDs. Currently pharmacological prophylaxis contraindicated because of severe anemia and GI bleed 5. CODE STATUS: Full code Charges/Coding Visit Charges Inpatient E&M: 80131 Subs Hosp L3
--- NOTE | 2025-02-01 07:56 | PCM.PN.SRG ---
Subjective Subjective Patient is comfortable with no bowel movements overnight Objective Data Objective Data Vital Signs: Vital Signs Temp Pulse Resp BP Pulse Ox O2 Del Method O2 Flow Rate 97.5 F L 83 17 137/68 H 95 Nasal Cannula 2 02/01/25 06:00 02/01/25 07:00 02/01/25 07:00 02/01/25 07:00 02/01/25 07:00 02/01/25 07:00 02/01/25 07:00 Oxygen Flow Rate (L/min) 2 Oxygen Delivery Method Nasal Cannula Weight: 151 lb 2 oz Body Mass Index (BMI) 22.9 Intake & Output: Intake and Output for Last 24 Hours 01/30/25 01/31/25 02/01/25 23:59 23:59 23:59 Intake Total 1500.67 / 1500.67 1595.83 / 1595.83 250 / 250 Output Total 55 / 55 125 / 125 300 / 300 Balance 1445.67 / 1445.67 1470.83 / 1470.83 -50 / -50 Lab / Micro Data 02/01/25 04:24 02/01/25 04:24 Labs: Laboratory Results - last 24 hr 01/30/25 19:40: Crossmatch See Detail 01/31/25 11:43: Hgb 8.5 L, Hct 26.1 L 01/31/25 17:59: WBC 15.2 H, RBC 3.00 L, Hgb 7.6 L, Hct 24.2 L, MCV 80.7, MCH 25.3 L, MCHC 31.4 L, RDW Std Deviation 56.8 H, RDW Coeff of Heriberto 19.4 H, Plt Count 273, MPV 10.7, Immature Gran % (Auto) 1.100 H, Neut % (Auto) 82.9 H, Lymph % (Auto) 3.5 L, [place] % (Auto) 12.4 H, Eos % (Auto) 0.0, Baso % (Auto) 0.1, Absolute Neuts (auto) 12.6 H, Absolute Lymphs (auto) 0.54 L, Nucleated RBC % 0, Differential Comment SCANNED, Platelet Estimate ADEQUATE, Polychromasia 2+, Anisocytosis 2+ 02/01/25 04:24: WBC 14.8 H, RBC 3.17 L, Hgb 8.3 L, Hct 25.2 L, MCV 79.5 L, MCH 26.2 L, MCHC 32.9, RDW Std Deviation 53.9 H, RDW Coeff of Heriberto 18.4 H, Plt Count 228, MPV 10.1, Immature Gran % (Auto) 1.200 H, Neut % (Auto) 79.3 H, Lymph % (Auto) 6.2 L, [place] % (Auto) 13.0 H, Eos % (Auto) 0.1, Baso % (Auto) 0.2, Absolute Neuts (auto) 11.7 H, Absolute Lymphs (auto) 0.92, Nucleated RBC % 0, Differential Comment SCANNED, Sodium 137, Potassium 4.0, Chloride 105, Carbon Dioxide 23.7, Anion Gap 9, BUN 21 H, Creatinine 1.16, Estim Creat Clear Calc 44.22 L, Est GFR (MDRD) Non-Af 61, BUN/Creatinine Ratio 17.9, Glucose 126 H, Calcium 7.8 Physical Exam Const oriented x3 and no apparent distress Resp normal respiratory effort GI soft to palpation Palpation: tender Assessment & Plan Assessment/Plan (1) Colon cancer: PLAN: The patient slowly drifted back to hemoglobin of 7.5 yesterday evening. He has not had any further bloody bowel movements since 2 nights ago. His abdomen is soft there is no guarding and he is nontender. He is only tender at his incision. The only place I have seen bleeding so far was the large bloody bowel movement he had during his SERGEANT OF CORRECTIONS so I will perform a colonoscopy to evaluate the staple line for bleeding. I discussed this with him in detail this morning. I discussed the increased risk of perforation with a fresh anastomosis. Patient understands and is willing to proceed. Axel Brito MD Pager: [facility] [address] [place] [address], [address] [place] [address] Office:
[2025-02-01] MEDS: CHLORHEXIDINE GLUC 2% CLOTH 1 EACH TOWELETTE TOPICAL (07:59)
--- NOTE | 2025-02-01 08:24 | NURSING ---
patient taken down for procedure
[2025-02-01] MEDS: Lactated Ringers 1,000 ML 15 ML IV (08:51)
--- NOTE | 2025-02-01 09:21 | PCM.PRE.AN2 ---
ASA Classification* ASA Classification ASA Classification: 3 (ASA Classification: 3 (Asthma, HTN, CAD, carotid artery stenosis (s/p TCAR left))) Assessment & Plan Anesthesia* Anesthesia Assessment Anesthesia Assessment: Discussed sedation and/or anesthesia options, risks, benefits, and alternatives with patient/parents/legal guardian/POA. Questions invited. The patient/parents/legal guardian/POA seems to understand and agrees to proceed with anesthesia plan. Reviewed the physical assessment, medical history, allergy history and patient home medications list prior to surgery/procedure/anesthetic and documented any changes. Performed airway and anesthesia risk assessments. Anesthesia Type Anesthesia Type: MAC History Source History Obtained from:: Patient and Chart Anesthesia Focused Assessment* Temperature: 97.8 F Pulse Rate: 89 Blood Pressure: 137/68 Respiratory Rate: 18 Pulse Ox: 99 Oxygen Flow Rate (L/min): 2 Airway Assessment Mouth opens: >3 cm Mallampati Score: II Labs Anesthesia Preop lab: CBC WBC, (4.4-11.0) 14.8 K/mm3 H Today, 04:24 RBC, (4.6-6.2) 3.17 M/mm3 L Today, 04:24 Hgb, (13.0-16.5) 8.3 g/dL L Today, 04:24 Hct, (40-54) 25.2 % L Today, 04:24 Plt Count, (150-450) 228 K/mm3 Today, 04:24 CHEMISTRY Potassium, (3.3-5.1) 4.0 mmol/L Today, 04:24 Sodium, (133-145) 137 mmol/L Today, 04:24 Magnesium, (1.5-2.2) 2.2 mg/dL 01/23/25, 15:03 BUN, (4-19) 21 mg/dL H Today, 04:24 Creatinine, (0.70-1.20) 1.16 mg/dL Today, 04:24 Glucose, (70-99) 126 mg/dL H Today, 04:24 POC Glucose, (74-106) 181 mg/dL H 01/30/25, 16:28 TSH, (0.300-4.200) 1.390 uIU/mL 12/27/24, 14:55 COAG PT, (11.7-14.9) 12.8 SECONDS 01/23/25, 15:03 Pre-Assessment Diagnosis/Proposed Procedure Planned Operative Procedure(s): Colonoscopy (s/p 01/30/25 hemicolectomy) Anesthesia History Anesthesia History - used car lot porter: Anesthesia History - used car lot porter Hx Hospitalization No 01/20/25 11:20 Any Problems With Anesthesia No 02/01/25 08:02 Cholinesterase deficiency No 02/01/25 08:02 You/Your Family Experience No 02/01/25 08:02 fever (hyperthermia) with Relationship Recent Exposure to Contagious No 02/01/25 08:02 Disease Does patient have nerve No 02/01/25 08:02 stimulator Patient instructed to have device shut off --Does patient have Pacemaker No 02/01/25 07:55 or ICD? When Was Last Pacemaker Check QUESTION #4 FULL TEXT: You/Your Family Experience fever (hyperthermia) with Anesthesia Any additional information?: Yes Hx Hospitalization: Yes (Currently hospitalized. ) Any Problems With Anesthesia: No Cholinesterase deficiency: No You/your family experience fever (hyperthermia) with anesthesia: No Recent Exposure to Contagious Disease: No Does patient have nerve stimulator: No Patient instructed to have device shut off: No --Does patient have Pacemaker or ICD?: No Last Oral Intake Last Oral intake: Last Oral Intake NPO since 00:00 02/01/25 07:55 Meds taken in AM with sips of No 02/01/25 07:55 water? Meds patient instructed to take am of surgery Any additional information?: Yes PONV PONV - used car lot porter: PONV - used car lot porter Female No 01/20/25 11:20 HX of Motion Sickness No 01/20/25 11:20 HX of N/V After Surgery No 01/20/25 11:20 Non-Smoker Yes 01/20/25 11:20 Duration of Surgery greater Yes 01/20/25 11:20 than 60 minutes Number of Risk Factors 2 01/20/25 11:20 PONV Score Moderate Risk 01/20/25 11:20 Any additional information?: No Height & Weight Height & Weight: Anesthesia: Height & Weight Height 5 ft 8 in 02/01/25 07:55 Weight: 68.549 kg 02/01/25 07:55 Body Mass Index (BMI) 22.9 02/01/25 07:55 Respiratory Assessment Respiratory Assessment - used car lot porter: Respiratory Tract Infection Hx - used car lot porter Hx Respiratory Tract Infection No 02/01/25 08:02 Any additional information?: No STOP Sleep Apnea STOP Sleep Apnea - used car lot porter: STOP Sleep Apnea - used car lot porter Hx Hypertension Yes: CONTROLLED WITH MED 01/20/25 11:20 Hx Sleep Apnea No 01/20/25 11:20 CPAP BIPAP Do you snore loudly (louder No 01/20/25 11:20 than talking or can be heard Do you often feel tired/ No 01/20/25 11:20 fatigued/ sleepy during daytime? Has anyone observed you stop No 01/20/25 11:20 breathing during sleep? STOP Results Negative 01/30/25 09:50 QUESTION #5 FULL TEXT : Do you snore loudly (louder than talking or can be heard through closed doors)? 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 Specify any problems Hx of Preganancy in last 3 N/A 01/20/25 11:20 Months Nurse Filling Out Transfusion DSCHRIBER 01/20/25 11:20 & Questions: Date: 01/20/25 01/20/25 11:20 Time: 11:21 01/20/25 11:20 Patient unable to answer at this time (ie. confused, unrespo Any additional information?: Yes Hx of Blood Transfusion: Yes Hx of Transfusion in last 3 Months: Yes Date of Last Transfusion (if within last 3 months): 01/30/2025 Ever experience any problems with transfusion(s)?: No Hx of Preganancy in last 3 Months: N/A /Reproduction History /Reproductive History - used car lot porter: /Reproductive Hx- used car lot porter Hx Now No 02/01/25 08:02 Gestational Age (in weeks): EDC: Hx Hx Para Hx Section SAB No 01/20/25 11:20 Does the father of the baby or his family experience fever w Father of the baby Malignant Hypertension history comment Any additional information?: No Active Medications Active Medications: Current Medications Generic Name Dose Route Start Last Admin Trade Name Freq PRN Reason Stop Dose Admin Acetaminophen 1,000 mg 01/30/25 12:00 02/01/25 05:47 Acetaminophen 500 Mg Tablet PO Not Given Q6 SINDI Albuterol Sulfate 2.5 mg 01/30/25 10:18 Albuterol 2.5 Mg/3 Ml Vial.Neb. INHALATION Q4H PRN shortness of breath or wheezing Amlodipine Besylate 10 mg 01/31/25 10:00 01/31/25 09:18 Amlodipine 10 Mg Tablet PO 10 mg DAILY SINDI Administration Protocol Atorvastatin Calcium 40 mg 01/30/25 22:00 01/31/25 23:24 Atorvastatin Calcium 40 Mg Tablet PO 40 mg QHS SINDI Administration Chlorhexidine Gluconate 1 each 01/31/25 10:00 02/01/25 07:59 Chlorhexidine Gluc 2% Cloth 1 Each Towelette TOPICAL 1 each DAILY SINDI Administration Docusate Sodium 100 mg 01/30/25 22:00 01/31/25 21:22 Docusate Sodium 100 Mg Capsule PO Not Given BID SINDI Sodium Chloride 250 mls @ 15 mls/hr 01/30/25 11:51 IV .[id number] PRN Saline Flush Sodium Chloride 250 mls @ 15 mls/hr 01/30/25 11:51 IV .[id number] PRN Additional IVPB Infusion Pantoprazole Sodium 40 mg/ 100 mls @ 300 mls/hr 01/30/25 22:00 02/01/25 00:02 Sodium Chloride IV Infused Q12 SINDI Infusion Sodium Chloride 1,000 mls @ 50 mls/hr 01/31/25 18:15 02/01/25 00:01 IV 50 mls/hr .Q20H SINDI Infusion Lactated Ringer's 1,000 mls @ 15 mls/hr 02/01/25 09:00 02/01/25 08:51 IV 15 mls/hr .Q48H SINDI Administration Isosorbide Mononitrate 30 mg 01/31/25 10:00 01/31/25 09:18 Isosorbide Mononitrate 30 Mg Tablet PO 30 mg DAILY SINDI Administration Protocol Losartan Potassium 50 mg 01/31/25 10:00 01/31/25 09:18 Losartan Potassium 50 Mg Tablet PO 50 mg DAILY SINDI Administration Protocol Magnesium Chloride 128 mg 01/30/25 10:15 Magnesium Chloride 64 Mg Delay Rel.Tablet PO DAILY PRN PRN Constipation Mirtazapine 7.5 mg 01/30/25 22:00 01/31/25 23:24 Mirtazapine 15 Mg Tablet PO 7.5 mg QHS SINDI Administration Montelukast Sodium 10 mg 01/31/25 10:00 01/31/25 09:18 Montelukast 10 Mg Tablet PO 10 mg DAILY SINDI Administration Morphine Sulfate 2 - 4 mg 01/30/25 10:17 Morphine 2 Mg/Ml Syringe IV Q2H PRN PRN Pain Score 4-10 Nitroglycerin 0.4 mg 01/30/25 10:18 Nitroglycerin (Inpatient Use) 0.4 Mg Tab.Subl SL Q5M PRN chest pain Ondansetron HCl 4 mg 01/30/25 10:15 Ondansetron Odt 4 Mg Tablet PO Q6H PRN PRN NAUSEA/VOMITING Sodium Chloride 10 - 40 ml 01/30/25 11:51 01/31/25 23:28 0.9% Saline Lock 10 Ml Syringe IV 10 ml UD PRN Administration SALINE FLUSH PFSH Medical History Anemia Cancer Wears hearing aid Wears dentures Wears glasses High cholesterol Restless legs Non-smoker Shortness of breath on exertion History of echocardiogram History of stress test Cardiology follow-up encounter Essential (primary) hypertension Benign prostatic hyperplasia without urinary obstruction Diverticulitis Asthma Home Medications Medication Instructions Recorded Last Taken Type albuterol sulfate 90 mcg/actuation 1 - 2 puff inhalation Q4H PRN PRN 05/02/14 07/11/24 Rx aerosol inhaler (Ventolin HFA) Wheezing ##1 montelukast 10 mg tablet 10 mg PO DAILY LUNGS 05/02/14 01/29/25 08:00 History (Singulair) acetaminophen 325 mg capsule 325 mg PO TID PRN fever or pain 11/20/21 Unknown History (Tylenol) mirtazapine 7.5 mg tablet 7.5 mg PO QHS RLS 04/11/24 01/29/25 23:30 History atorvastatin 40 mg tablet 40 mg PO QHS CHOLESTEROL 06/03/24 01/29/25 23:30 History nitroglycerin 0.4 mg sublingual 0.4 mg sublingual Q5M PRN chest 06/03/24 Unknown History tablet pain amlodipine 10 mg tablet 10 mg PO QDAY BP #90 tabs 06/13/24 01/29/25 08:00 Rx prasugrel HCl 10 mg tablet 10 mg PO QDAY PVD #30 tabs 07/27/24 01/29/25 08:00 Rx isosorbide mononitrate 30 mg 30 mg PO QAM HEART #30 tabs 10/18/24 01/29/25 08:00 Rx tablet,extended release 24 hr losartan 50 mg tablet 50 mg PO DAILY BP 01/10/25 01/29/25 08:00 History polysaccharide iron complex 150 mg 150 mg PO QODAY IRON 01/10/25 01/29/25 08:00 History iron capsule metronidazole 500 mg tablet 500 mg PO .COMPLEX PREP #6 tabs 01/17/25 01/29/25 23:00 Rx neomycin 500 mg tablet 500 mg PO .COMPLEX pre-op 01/17/25 01/29/25 23:30 Rx antibiotics #6 tabs albuterol sulfate 2.5 mg/3 mL 2.5 mg inhalation Q4H PRN 01/20/25 Unknown History (0.083 %) solution for nebulization shortness of breath or wheezing Allergy/AdvReac Type Severity Reaction Status Date / Time naproxen (From Aleve) Allergy Unknown palpitaions, Verified 01/30/25 06:03 SOB aspirin Allergy Shortness Verified 01/30/25 06:03 of breath ibuprofen Allergy Other Verified 01/30/25 06:03 Family History Sister Cancer Mother Bleeding disorder Surgical History Hx of left cataract extraction Hx of right cataract extraction Hx of colonoscopy with polypectomy History of transcarotid artery revascularization (TCAR) History of cardiac catheterization History of appendectomy Myringotomy tube status (~2005) Social History household members: spouse housing: condominium number of children: 2 pets and animals: Yes (maltise-dog) Smoking Status: Never smoker alcohol intake: never substance use type: does not use caffeine: Yes Type: coffee Number of servings: 2 Review of Systems (Anesthesia) ROS Narrative System reviewed and no additional complaints, except as documented.
[2025-02-01] MEDS: Lactated Ringers 500 ML IV (09:40)
--- NOTE | 2025-02-01 10:33 | PCM.OPRPT ---
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 A well-lubricated colonoscope was placed through the anus and into the colon. There was a copious amount of old blood clot in the colon. I was able to traverse this and get to the anastomosis. The area was copiously irrigated and inspected. There was a lot of blood clot but there was no active red bleeding. The staple line was inspected circumferentially and there was no active bleeding. I spent over 15 minutes waiting at the anastomosis and I did not see any active bleeding. The area was irrigated once more and suction. The scope was slowly removed. Surgical Findings: Old clot with no active bleeding Complications Complications: No
--- NOTE | 2025-02-01 10:34 | PCM.POST.ANE ---
Anesthesia: Postop Eval I Current Vital Signs Temperature: 97.6 F Pulse Rate: 93 Blood Pressure: 132/64 Respiratory Rate: 20 Pulse Ox: 93 Assessment Airway patent: Yes Spontaneous unlabored respirations: Yes nausea: No Vomiting: No Anesthesia Complication: No Fluid Hydration Crystalloid volume administer (ml): 93 (4L O2, via nasal cannula) Total IV fluid infused: 93 Progress Note Anesthesia document: Postop Eval 1 completed: Yes
--- NOTE | 2025-02-01 10:36 | PCM.PN.BLA ---
Assessment & Plan Assessment/Plan (1) Lower GI bleed: PLAN: The patient had colonoscopy this morning. I was able to make it to the anastomosis and clean the area well. I did not see any active bleeding. I had Dr. Wright and Dr Mckeon come into the room to inspect the staple line as well. We all agree that there was no active bleeding to stop. I will start him on clear liquids and check hemoglobin this afternoon. Axel Brito MD Pager: [facility] [address] [place] [address], [address] [place] [address] Office:
[2025-02-01] MEDS: Pantoprazole Sodium 40 MG in 0.9% Normal Saline (100mL MB+) 100 ML 330 MG IV ×2 (12:01→21:52)
--- NOTE | 2025-02-01 12:38 | POSTOPAN2_ITS ---
Anesthesia Postop Eval I Sum Postop Eval Completion status Anesthesia document: Postop Eval 1 completed: Yes Anesthesia Postop Eval I Summary Anesthesia Postop Eval I Summary: Anesthesia Postop Eval I: Assessment Summary Airway patent Yes 02/01/25 10:35 HAND ALTERATIONS SEAMSTRESS.CSIR Spontaneous unlabored Yes 02/01/25 10:35 HAND ALTERATIONS SEAMSTRESS.CSIR respirations Mental status Awake 01/30/25 13:43 nausea No 02/01/25 10:35 HAND ALTERATIONS SEAMSTRESS.CSIR Vomiting No 02/01/25 10:35 HAND ALTERATIONS SEAMSTRESS.CSIR Anesthesia Postop Eval I: Fluid Summary Crystalloid volume administer 93 - 4L O2, via 02/01/25 10:35 HAND ALTERATIONS SEAMSTRESS.CSIR (ml) nasal cannula Colloids volume administered ( ml) Blood Product volume administered (ml) Total IV fluid infused 93 02/01/25 10:35 HAND ALTERATIONS SEAMSTRESS.CSIR Anesthesia Postop Eval I: Summary Notes Anesthesia Complication No 02/01/25 10:35 HAND ALTERATIONS SEAMSTRESS.CSIR Anesthesia Complication Comment: Post-operative progress note Anesthesia: Postop Eval II Evaluation Mental status: Awake Pain Level: 0 nausea: No Vomiting: No Complications Anesthesia Complication: No
--- NOTE | 2025-02-01 12:38 | PCM.POSTANE2 ---
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 Spontaneous unlabored Yes 02/01/25 10:35 AUTO BODY REPAIR TEACHER.CSIR respirations Mental status Awake 01/30/25 13:43 nausea No 02/01/25 10:35 AUTO BODY REPAIR TEACHER.CSIR Vomiting No 02/01/25 10:35 AUTO BODY REPAIR TEACHER.CSIR Anesthesia Postop Eval I: Fluid Summary Crystalloid volume administer 93 - 4L O2, via 02/01/25 10:35 AUTO BODY REPAIR TEACHER.CSIR (ml) nasal cannula Colloids volume administered ( ml) Blood Product volume administered (ml) Total IV fluid infused 93 02/01/25 10:35 AUTO BODY REPAIR TEACHER.CSIR Anesthesia Postop Eval I: Summary Notes Anesthesia Complication No 02/01/25 10:35 AUTO BODY REPAIR TEACHER.CSIR Anesthesia Complication Comment: Post-operative progress note Anesthesia: Postop Eval II Evaluation Mental status: Awake Pain Level: 0 nausea: No Vomiting: No Complications Anesthesia Complication: No
--- NOTE | 2025-02-01 12:38 | ANES.CONFIRM ---
Anesthesia: Confirm Documents Multiple Procedures on Account (2) Confirmed Documents: Yes
[2025-02-01 14:07] LABS: Hematocrit 23.9 % (40-54); Hemoglobin 7.8 g/dL (13.0-16.5)
[2025-02-01] MEDS: 0.9% Normal Saline (1000mL) 1,000 ML 50 ML IV (17:20)
[2025-02-02] VITALS (16 sets, daily range): BP systolic 125–158; BP diastolic 59–78; PULSE 80–95; RESP 16–18; TEMP 36.2–36.8; O2SAT 94–100; BMI 24.2
[2025-02-02 05:58] LABS: Hematocrit 20.5 % (40-54); Hemoglobin 6.5 g/dL (13.0-16.5); Immature Granulocytes Count 0.070 X10^3/uL (0.0-0.0); Mean Corp Hgb Conc 31.7 g/dL (32-36); Mean Corpuscular Volume 82.3 fL (80-94); Mean Platelet Vol. 10.4 fl (6.2-12.0); NRBC Flagged by Analyzer 0 % (0-5); POSITIVE DIFFERENTIAL YES; Platelet Count 174 K/mm3 (150-450); RBC Distribution Width CV 18.6 % (11.6-14.6); RBC Distribution Width SD 56.1 fl (35.1-43.9); Red Blood Count 2.49 M/mm3 (4.6-6.2); White Blood Count 8.7 K/mm3 (4.4-11.0)
[2025-02-02 06:16] LABS: Anion Gap 6 (5-15); BUN 13 mg/dL (4-19); BUN/Creat Ratio 15.8 RATIO (10-20); Calcium,Total 7.8 mg/dL (7.6-11.0); Carbon Dioxide 23.7 mmol/L (21.0-32.0); Chloride 111 mmol/L (98-108); Estimated Creatinine Clearance 61.81 ml/min (50-250); Glucose 101 mg/dL (70-99); Potassium 3.4 mmol/L (3.3-5.1)
--- NOTE | 2025-02-02 06:33 | PCM.HOSP.N ---
Hospitalist Note AM Hgb repeat 6.5, will order 2 u PRBC with repeat HH 1 hour following completion.
--- NOTE | 2025-02-02 07:20 | PCM.PN.SRG ---
Subjective Subjective Patient evaluated resting comfortably in bed. He denies any nausea, vomiting, fever. He denies any lightheadedness, dizziness with standing, chest pain or fatigue. He denies any further flatus or bowel movement. Objective Data Objective Data Vital Signs: Vital Signs Temp Pulse Resp BP Pulse Ox O2 Del Method O2 Flow Rate 97.2 F L 81 18 139/59 H 95 Nasal Cannula 2 02/02/25 03:43 02/02/25 03:43 02/02/25 03:43 02/02/25 03:43 02/02/25 03:43 02/02/25 03:43 02/02/25 03:43 Oxygen Flow Rate (L/min) 2 Oxygen Delivery Method Nasal Cannula Weight: 159 lb 6.307 oz Body Mass Index (BMI) 24.2 Intake & Output: Intake and Output for Last 24 Hours 01/31/25 02/01/25 02/02/25 23:59 23:59 23:59 Intake Total 1595.83 / 1595.83 2401.42 / 2401.42 Output Total 125 / 125 1050 / 1050 0 / 0 Balance 1470.83 / 1470.83 1351.42 / 1351.42 0 / 0 Lab / Micro Data 02/02/25 05:27 02/02/25 05:27 Labs: Laboratory Results - last 24 hr 01/30/25 19:40: Crossmatch See Detail 02/01/25 13:55: Hgb 7.8 L, Hct 23.9 L 02/02/25 05:27: WBC 8.7, RBC 2.49 L, Hgb 6.5 L, Hct 20.5 L, MCV 82.3, MCH 26.1 L, MCHC 31.7 L, RDW Std Deviation 56.1 H, RDW Coeff of Heriberto 18.6 H, Plt Count 174, MPV 10.4, Immature Gran % (Auto) 0.800, Neut % (Auto) 80.7 H, Lymph % (Auto) 6.8 L, [place] % (Auto) 9.8, Eos % (Auto) 1.7, Baso % (Auto) 0.2, Absolute Neuts (auto) 7.0, Absolute Lymphs (auto) 0.59 L, Nucleated RBC % 0, Sodium 141, Potassium 3.4, Chloride 111 H, Carbon Dioxide 23.7, Anion Gap 6, BUN 13, Creatinine 0.83, Estim Creat Clear Calc 61.81, Est GFR (MDRD) Non-Af 85, BUN/Creatinine Ratio 15.8, Glucose 101 H, Calcium 7.8 Physical Exam GI GI Narrative: Abdomen- soft, slight tenderness at the incision site. Positive bowel sounds. Incision c/d/i. no erythema or infection noted. Dressing removed. Assessment & Plan Assessment/Plan (1) Colon cancer: (2) Lower GI bleed: PLAN: Plan I am following this patient in conjunction with Dr. Mckeon. He has also independently evaluated this patient. Labs reviewed. Hgb was 6.5 this morning. Hospitalist ordered 2 units of PRBC. Recheck H&H 1 hour after completion of transfusion Recommend I.S Patient unsure when he officially stopped his Effient (blood thinners). This should have been stopped 7 days prior to surgery. According to documentation last dose was on 01/29/25. Patient had a colonoscopy yesterday with Dr. Brito. No active bleeding noted at the anastomosis. There was notable amount of clots within the colon, however no active bleeding noted Continue on clear liquids at this time We will continue to monitor this patient Charges/Coding Visit Charges Inpatient E&M: 80657 Subs Hosp L1 (post-op; no charge)
--- NOTE | 2025-02-02 09:05 | PCM.PN.HOSP ---
Objective Data Objective Data Vital Signs: Vital Signs Temp Pulse Resp BP Pulse Ox O2 Del Method O2 Flow Rate 97.7 F L 95 16 158/67 H 98 Nasal Cannula 2 02/02/25 08:18 02/02/25 08:18 02/02/25 08:18 02/02/25 08:18 02/02/25 08:18 02/02/25 08:18 02/02/25 08:18 Oxygen Flow Rate (L/min) 2 Oxygen Delivery Method Nasal Cannula Weight: 159 lb 6.307 oz Body Mass Index (BMI) 24.2 Intake & Output: Intake and Output for Last 24 Hours 01/31/25 02/01/25 02/02/25 23:59 23:59 23:59 Intake Total 1595.83 / 1595.83 2401.42 / 2401.42 779.17 / 779.17 Output Total 125 / 125 1050 / 1050 0 / 0 Balance 1470.83 / 1470.83 1351.42 / 1351.42 779.17 / 779.17 Lab / Micro Data 02/02/25 13:35 02/02/25 05:27 Labs: Laboratory Results - last 24 hr 01/30/25 19:40: Crossmatch See Detail 02/01/25 13:55: Hgb 7.8 L, Hct 23.9 L 02/02/25 05:27: WBC 8.7, RBC 2.49 L, Hgb 6.5 L, Hct 20.5 L, MCV 82.3, MCH 26.1 L, MCHC 31.7 L, RDW Std Deviation 56.1 H, RDW Coeff of Heriberto 18.6 H, Plt Count 174, MPV 10.4, Immature Gran % (Auto) 0.800, Neut % (Auto) 80.7 H, Lymph % (Auto) 6.8 L, [place] % (Auto) 9.8, Eos % (Auto) 1.7, Baso % (Auto) 0.2, Absolute Neuts (auto) 7.0, Absolute Lymphs (auto) 0.59 L, Nucleated RBC % 0, Sodium 141, Potassium 3.4, Chloride 111 H, Carbon Dioxide 23.7, Anion Gap 6, BUN 13, Creatinine 0.83, Estim Creat Clear Calc 61.81, Est GFR (MDRD) Non-Af 85, BUN/Creatinine Ratio 15.8, Glucose 101 H, Calcium 7.8 Physical Exam Narrative Seen and examined. Patient is doing well pulse ox 94 to 99% on 2 to 3 L of oxygen. No acute abdominal pain. Colonoscopy finding relayed to the patient. His hemoglobin again dropped to 6 point 5 in the morning today and had 2 units of PRBC transfusion went up to 10.3 g%. Has not passed flatus or BM yet. Patient sinus rhythm on manager cardiac cath. Physical exam: General: Alert, Oriented x3, Cooperative. BMI 24.2 KG per square meter. HEENT: Atraumatic, PERRLA, EOMI, Normocephalic. Oral: No Gingival or Mucosal Lesions/ Ulcerations Neck: Supple, No JVD, Negative Carotid Bruits Chest wall/Lungs: Air entry diminished in bilateral lung bases. No crepitation/rhonchi Cardiovascular: Regular rate and rhythm, Normal S1,S2, No M/G/R Abdomen: Bowel Sounds absent. Surgical dressing in midline. Dry. Mild midline expected tenderness. Mild abdominal distention : No dysuria. No renal angle tenderness. No suprapubic tenderness. Extremities: No edema, Capillary Refill Less than 3 Seconds Skin: No rashes, No breakdown Musculoskeletal: No Tenderness to Palpation of Joints or Extremities Neurological: Cranial nerves II-XII grossly intact, DTR 2+/4. No acute focal neurological deficit. 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 Patient has large bloody bowel movement on MedSurg floor. Low hemoglobin on CBC and WHEEL BRAIDER was called in the evening as patient was found less responsive/altered mental status. Later on, CODE BLUE was called but most probably it was syncope/short period of unresponsiveness then it came back to normal. On 01/30, the patient was transferred to ICU last night. NSR on the manager cardiac cath 1. Colon cancer/large masslike hepatic flexure status post laparoscopic right hemicolectomy with anastomosis on 01/30/2025: Patient was admitted on MedSurg floor after surgery but transferred overnight to ICU. Currently hemodynamically, heart rate, blood pressure, level of consciousness and respiration normal. monitoring analyst NSR at 90/min. BP 136/60. Pain control, clinical monitoring and incentive spirometry and bilateral SCDs. 02/01: Did not pass flatus yet n.p.o. has not passed flatus yet. Mild abdominal distention. Plan for EGD today 02/02: Patient had colonoscopy on 02/01. Old clot with no active bleeding. Anastomotic line was intact. 2. Rapid response, probably syncopal episode/unconsciousness most likely due to GI bleed/hypotension: Blood pressure was tenuous, documented RN 6/ twice about 9 to 10 PM on 01/30/2025. Earlier patient had rapid response for altered mental status and then CODE BLUE for syncopal episode related with large bloody rectal bleed 02/01: Hemodynamically, no acute issues overnight. Mild hypoxia 87 to 88% on room air on 2 L of oxygen 02/02: Patient had colonoscopy yesterday which showed old clotted blood but no active bleeding. Anastomotic line intact. Was irrigated with saline. On clear liquid. Bowel function has not returned yet 3. Acute blood loss anemia due to surgery/associated with surgery: Preoperative hemoglobin 9.6 dropped to 7.0 with large rectal bleed as per nursing staff. It was also accompanied with syncopal event. Patient had 2 units of PRBC transfusion and posttransfusion 9.5 g% 02/01: Patient had drop in hemoglobin from 8.5-7.6 and had 1 unit of PRBC transfusion. Posttransfusion 8.3/25%. Platelet count is normal. 02/02: Patient again dropped hemoglobin 6.5 and had 2 units of PRBC transfusion. Posttransfusion hemoglobin 10.5 g%. 4. DVT prophylaxis–SCDs. Currently pharmacological prophylaxis contraindicated because of severe anemia and GI bleed 5. CODE STATUS: Full code Charges/Coding Visit Charges Inpatient E&M: 99397 Subs Hosp L2
--- NOTE | 2025-02-02 09:43 | CASEMGMT ---
Discharge Planning A list of SNF providers including quality and resource use data and consistent with the patient's preferred geographic region, medical needs, and insurance network was created in [facility]. This list was provided to the SW. Zelda Holly Discharge Planning Asst.
--- NOTE | 2025-02-02 11:05 | CASEMGMT ---
RUBA CM called and spoke with Eri as patient was sleeping. RN CM discuss progress with therapy and recommendations for SNF at discharge. became tearful as she is missing her at home as he does so much around the house for her. states she has daughter that is able to help if needed. asked if this RN CM could call daughter Cher to update regarding discharge planning. states she will be coming in a 1pm today and will discuss discharge planning. RN JOJO called and spoke with david Kwon per 's requests. RN CM updated regarding discharge planning and how tearful her mother was with conversation. Cher states she will reach out to her mother and offer support. Cher had no further questions or concerns. CM will continue to follow this patient and plan for a safe discharge.
[2025-02-02] MEDS: Pantoprazole Sodium 40 MG in 0.9% Normal Saline (100mL MB+) 100 ML 330 MG IV (12:37)
--- NOTE | 2025-02-02 13:45 | CASEMGMT ---
Addendum entered by Maddi Deshpande 02/02/25 16:14: RUBA URIBE in to discuss SNF preferences. Patient prefers 1. [facility]. [facility] [address] [facility] Patient has no further questions or concerns. RUBA URIBE sent referral to TCU, awaiting response. Original Note: RUBA URIBE in to discuss discharge planning with patient, , and family. RUBA URIBE reviewed progress with therapy and recommendation for SNF at discharge. Patient and family agreeable to skilled stay at SNF. RUBA URIBE provided list to patient and family to review and provide top 4 preferences. CM to follow-up with patient and later this afternoon for choices.
[2025-02-02 13:50] LABS: Hematocrit 32.1 % (40-54); Hemoglobin 10.3 g/dL (13.0-16.5)
[2025-02-02] MEDS: 0.9% Normal Saline (1000mL) 1,000 ML 50 ML IV (15:00)
[2025-02-02] MEDS: Pantoprazole Sodium 40 MG in 0.9% Normal Saline (100mL MB+) 100 ML 300 MG IV (21:47)
[2025-02-03 03:18] VITALS: BP 117/52; PULSE 79; RESP 18; TEMP 36.4; O2SAT 94
[2025-02-03 04:23] LABS: Hematocrit 27.7 % (40-54); Hemoglobin 8.9 g/dL (13.0-16.5); Immature Granulocytes Count 0.060 X10^3/uL (0.0-0.0); Mean Corp Hgb Conc 32.1 g/dL (32-36); Mean Corpuscular Volume 82.0 fL (80-94); Mean Platelet Vol. 10.1 fl (6.2-12.0); NRBC Flagged by Analyzer 0 % (0-5); Platelet Count 200 K/mm3 (150-450); RBC Distribution Width CV 17.1 % (11.6-14.6); RBC Distribution Width SD 50.4 fl (35.1-43.9); Red Blood Count 3.38 M/mm3 (4.6-6.2); White Blood Count 9.3 K/mm3 (4.4-11.0)
[2025-02-03 05:53] VITALS: BMI 24.3
[2025-02-03 06:12] LABS: Anion Gap 10 (5-15); BUN 10 mg/dL (4-19); BUN/Creat Ratio 12.4 RATIO (10-20); Calcium,Total 7.9 mg/dL (7.6-11.0); Carbon Dioxide 21.9 mmol/L (21.0-32.0); Chloride 109 mmol/L (98-108); Estimated Creatinine Clearance 61.81 ml/min (50-250); Glucose 75 mg/dL (70-99); Potassium 3.3 mmol/L (3.3-5.1)
--- NOTE | 2025-02-03 07:41 | PN.SURG_ITS ---
Subjective Subjective Patient reports having some bowel movement in the bed and unsure what looked like we will discussed with nursing–nursing states did not have anything. Patient tolerated clears, no nausea no vomiting Objective Data Objective Data Vital Signs: Vital Signs Temp Pulse Resp BP Pulse Ox O2 Del Method O2 Flow Rate 97.6 F L 79 18 117/52 L 94 Room Air 2 02/03/25 03:18 02/03/25 03:18 02/03/25 03:18 02/03/25 03:18 02/03/25 03:18 02/03/25 04:00 02/02/25 11:46 Oxygen Flow Rate (L/min) 2 Oxygen Delivery Method Room Air Weight: 160 lb 4.417 oz Body Mass Index (BMI) 24.3 Intake & Output: Intake and Output for Last 24 Hours 02/01/25 02/02/25 02/03/25 23:59 23:59 23:59 Intake Total 2401.42 / 2401.42 2178.34 / 2178.34 Output Total 1050 / 1050 375 / 375 Balance 1351.42 / 1351.42 1803.34 / 1803.34 Lab / Micro Data 02/03/25 03:55 02/03/25 03:55 Labs: Laboratory Results - last 24 hr 01/30/25 19:40: Crossmatch See Detail 02/02/25 13:35: Hgb 10.3 L, Hct 32.1 L 02/03/25 03:55: WBC 9.3, RBC 3.38 L, Hgb 8.9 L, Hct 27.7 L, MCV 82.0, MCH 26.3 L , MCHC 32.1, RDW Std Deviation 50.4 H, RDW Coeff of Heriberto 17.1 H, Plt Count 200, MPV 10.1, Immature Gran % (Auto) 0.600, Neut % (Auto) 77.5 H, Lymph % (Auto) 7.5 L, [place] % (Auto) 9.7, Eos % (Auto) 4.3, Baso % (Auto) 0.4, Absolute Neuts (auto) 7.2, Absolute Lymphs (auto) 0.70 L, Nucleated RBC % 0, Sodium 141, Potassium 3.3, Chloride 109 H, Carbon Dioxide 21.9, Anion Gap 10, BUN 10, Creatinine 0.83, Estim Creat Clear Calc 61.81, Est GFR (MDRD) Non-Af 85, BUN/Creatinine Ratio 12.4, Glucose 75, Calcium 7.9 Physical Exam Resp normal respiratory effort Cardio regular rate GI GI Narrative: Abdomen: Soft, nondistended, tender near incision's dressed clean dry and intact, no peritoneal signs Assessment & Plan Assessment/Plan (1) Colon cancer: (2) Lower GI bleed: PLAN: Plan Hemoglobin currently 8.9–Will continue to monitor Recommend I.S, continue out of bed to chair Patient on Effient (blood thinners). This should have been stopped 7 days prior to surgery. According to documentation last dose was on 01/29/25. Patient had a colonoscopy 01/[address] Brito. No active bleeding noted at the anastomosis. There was large amount of clots within the colon at the time of colonoscopy, however no active bleeding noted Okay for full liquids liquids at this time Addendum: Patient did have a large bloody bowel movement per nursing this afternoon approximately 230. This is likely residual from patient's previous bleed/colonoscopy as he has not had a bowel movement since then and there wass quite a bit of clot in the colon. Will check hemoglobin and continue to follow. Lin Wright M.D. Pager: [phone] [facility] [address] [place] [address], [facility], [address] [place] [address] Office: [phone]
--- NOTE | 2025-02-03 08:21 | PN.HOSP_ITS ---
Objective Data Objective Data Vital Signs: Vital Signs Temp Pulse Resp BP Pulse Ox O2 Del Method O2 Flow Rate 97.6 F L 79 18 117/52 L 94 Room Air 2 02/03/25 03:18 02/03/25 03:18 02/03/25 03:18 02/03/25 03:18 02/03/25 03:18 02/03/25 04:00 02/02/25 11:46 Oxygen Flow Rate (L/min) 2 Oxygen Delivery Method Room Air Weight: 160 lb 4.417 oz Body Mass Index (BMI) 24.3 Intake & Output: Intake and Output for Last 24 Hours 02/01/25 02/02/25 02/03/25 23:59 23:59 23:59 Intake Total 2401.42 / 2401.42 2178.34 / 2178.34 Output Total 1050 / 1050 375 / 375 Balance 1351.42 / 1351.42 1803.34 / 1803.34 Lab / Micro Data 02/03/25 03:55 02/03/25 03:55 Labs: Laboratory Results - last 24 hr 01/30/25 19:40: Crossmatch See Detail 02/02/25 13:35: Hgb 10.3 L, Hct 32.1 L 02/03/25 03:55: WBC 9.3, RBC 3.38 L, Hgb 8.9 L, Hct 27.7 L, MCV 82.0, MCH 26.3 L , MCHC 32.1, RDW Std Deviation 50.4 H, RDW Coeff of Heriberto 17.1 H, Plt Count 200, MPV 10.1, Immature Gran % (Auto) 0.600, Neut % (Auto) 77.5 H, Lymph % (Auto) 7.5 L, [place] % (Auto) 9.7, Eos % (Auto) 4.3, Baso % (Auto) 0.4, Absolute Neuts (auto) 7.2, Absolute Lymphs (auto) 0.70 L, Nucleated RBC % 0, Sodium 141, Potassium 3.3, Chloride 109 H, Carbon Dioxide 21.9, Anion Gap 10, BUN 10, Creatinine 0.83, Estim Creat Clear Calc 61.81, Est GFR (MDRD) Non-Af 85, BUN/Creatinine Ratio 12.4, Glucose 75, Calcium 7.9 Physical Exam Narrative Seen and examined. No hypoxia. 96% on room air. Patient is doing well. Nurses did not confirm that patient had bowel movement Mild abdominal discomfort after recent surgery. C Has not passed flatus or BM yet. Patient sinus rhythm on color television console monitor. Physical exam: General: Alert, Oriented x3, Cooperative. BMI 24.2 KG per square meter. HEENT: Atraumatic, PERRLA, EOMI, Normocephalic. Oral: No Gingival or Mucosal Lesions/ Ulcerations Neck: Supple, No JVD, Negative Carotid Bruits Chest wall/Lungs: Air entry diminished in bilateral lung bases. No crepitation/rhonchi Cardiovascular: Regular rate and rhythm, Normal S1,S2, No M/G/R Abdomen: Bowel Sounds sluggish/hypoactive surgical dressing in midline. Mild midline expected tenderness. Mild abdominal distention/fullness on-the- flanks : No dysuria. No renal angle tenderness. No suprapubic tenderness. Extremities: No edema, Capillary Refill Less than 3 Seconds Skin: No rashes, No breakdown Musculoskeletal: No Tenderness to Palpation of Joints or Extremities Neurological: Cranial nerves II-XII grossly intact, DTR 2+/4. No acute focal neurological deficit. 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 Patient has large bloody bowel movement on MedSurg floor. Low hemoglobin on CBC and MEDICAL BILLER CODER was called in the evening as patient was found less responsive/altered mental status. Later on, CODE BLUE was called but most probably it was syncope/short period of unresponsiveness then it came back to normal. On 01/30, the patient was transferred to ICU last night. NSR on the color television console monitor 1. Colon cancer/large masslike hepatic flexure status post laparoscopic right hemicolectomy with anastomosis on 01/30/2025: Patient was admitted on MedSurg floor after surgery but transferred overnight to ICU. Currently hemodynamically, heart rate, blood pressure, level of consciousness and respiration normal. security monitor NSR at 90/min. BP 136/60. Pain control, clinical monitoring and incentive spirometry and bilateral SCDs. 02/01: Did not pass flatus yet n.p.o. has not passed flatus yet. Mild abdominal distention. Plan for EGD today 02/02: Patient had colonoscopy on 02/01. Old clot with no active bleeding. Anastomotic line was intact. 2. Rapid response, probably syncopal episode/unconsciousness most likely due to GI bleed/hypotension: Blood pressure was tenuous, documented RN 6/62 twice about 9 to 10 PM on 01/30/2025. Earlier patient had rapid response for altered mental status and then CODE BLUE for syncopal episode related with large bloody rectal bleed 02/01: Hemodynamically, no acute issues overnight. Mild hypoxia 87 to 88% on room air on 2 L of oxygen 02/02: Patient had colonoscopy yesterday which showed old clotted blood but no active bleeding. Anastomotic line intact. Was irrigated with saline. On clear liquid. Bowel function has not returned yet 02/03: H&H slightly dropped today. No acute need for blood transfusion. Tolerating clear liquid 3. Acute blood loss anemia due to surgery/associated with surgery: Preoperative hemoglobin 9.6 dropped to 7.0 with large rectal bleed as per nursing staff. It was also accompanied with syncopal event. Patient had 2 units of PRBC transfusion and posttransfusion 9.5 g% 02/01: Patient had drop in hemoglobin from 8.5-7.6 and had 1 unit of PRBC transfusion. Posttransfusion 8.3/25%. Platelet count is normal. 02/02: Patient again dropped hemoglobin 6.5 and had 2 units of PRBC transfusion. Posttransfusion hemoglobin 10.5 g%. 4. DVT prophylaxis–SCDs. Currently pharmacological prophylaxis contraindicated because of severe anemia and GI bleed 5. CODE STATUS: Full code Charges/Coding Visit Charges Inpatient E&M: 24343 Subs Hosp L2
--- NOTE | 2025-02-03 09:05 | CASEMGMT ---
Addendum entered by Maddi Deshpande 02/03/25 15:21: RUBA URIBE in to update patient that he was accepted by TCU. Patient states he did well with therapy today and wants to go home. RUBA URIBE reviewed therapy notes, patient ambulated 220ft stand by/supervision. Patient declined HHC or therapy at discharge. RUBA URIBE updated TCU to cancel referral. Original Note: RUBA URIBE update by Navya in TCU that patient was accepted and precert started. RUBA URIBE to update patient. CM will continue to follow this patient and plan for a safe discharge.
[2025-02-03 09:36] VITALS: BP 158/82; PULSE 84; RESP 16; TEMP 36.6; O2SAT 97
[2025-02-03] MEDS: Pantoprazole Sodium 40 MG in 0.9% Normal Saline (100mL MB+) 100 ML 300 MG IV ×2 (09:48→20:53)
[2025-02-03 10:16] VITALS: O2SAT 96
[2025-02-03 14:16] VITALS: O2SAT 97
[2025-02-03 14:49] VITALS: BP 134/68; PULSE 106; RESP 18; TEMP 36.9; O2SAT 95
[2025-02-03 16:03] LABS: Hematocrit 32.5 % (40-54); Hemoglobin 10.5 g/dL (13.0-16.5)
[2025-02-03 20:44] VITALS: BP 126/71; PULSE 90; RESP 16; TEMP 36.9; O2SAT 94
[2025-02-04] VITALS (8 sets, daily range): BP systolic 124–160; BP diastolic 65–95; PULSE 84–117; RESP 16–20; TEMP 35.9–36.8; O2SAT 92–98; BMI 24.0
[2025-02-04] MEDS: 0.9% Normal Saline (1000mL) 1,000 ML 50 ML IV ×2 (02:20→22:04)
[2025-02-04 03:23] LABS: Hematocrit 30.4 % (40-54); Hemoglobin 9.9 g/dL (13.0-16.5); Immature Granulocytes Count 0.060 X10^3/uL (0.0-0.0); Mean Corp Hgb Conc 32.6 g/dL (32-36); Mean Corpuscular Volume 80.9 fL (80-94); Mean Platelet Vol. 8.9 fl (6.2-12.0); NRBC Flagged by Analyzer 0 % (0-5); Platelet Count 230 K/mm3 (150-450); RBC Distribution Width CV 17.2 % (11.6-14.6); RBC Distribution Width SD 49.9 fl (35.1-43.9); Red Blood Count 3.76 M/mm3 (4.6-6.2); White Blood Count 9.4 K/mm3 (4.4-11.0)
[2025-02-04 03:53] LABS: Anion Gap 11 (5-15); BUN 7 mg/dL (4-19); BUN/Creat Ratio 9.3 RATIO (10-20); Calcium,Total 8.2 mg/dL (7.6-11.0); Carbon Dioxide 22.5 mmol/L (21.0-32.0); Chloride 106 mmol/L (98-108); Estimated Creatinine Clearance 64.13 ml/min (50-250); Glucose 118 mg/dL (70-99); Potassium 3.0 mmol/L (3.3-5.1)
--- NOTE | 2025-02-04 09:03 | PCM.PN.SRG ---
Subjective Subjective Patient having clots/black stools. Hemoglobin stable at 9.9. Patient K3.0. Patient tolerated full liquids denies any nausea or vomiting. Objective Data Objective Data Vital Signs: Vital Signs Temp Pulse Resp BP Pulse Ox O2 Del Method O2 Flow Rate 98.2 F 84 16 148/65 H 95 Room Air 2 02/04/25 02:23 02/04/25 02:23 02/04/25 02:23 02/04/25 02:23 02/04/25 08:07 02/04/25 08:07 02/02/25 11:46 Oxygen Flow Rate (L/min) 2 Oxygen Delivery Method Room Air Weight: 158 lb 8.198 oz Body Mass Index (BMI) 24.0 Intake & Output: Intake and Output for Last 24 Hours 02/02/25 02/03/25 02/04/25 23:59 23:59 23:59 Intake Total 2178.34 / 2178.34 1200 / 1200 Output Total 375 / 375 Balance 1803.34 / 1803.34 1200 / 1200 Lab / Micro Data 02/04/25 03:15 02/04/25 03:15 Labs: Laboratory Results - last 24 hr 02/03/25 15:36: Hgb 10.5 L, Hct 32.5 L 02/04/25 03:15: WBC 9.4, RBC 3.76 L, Hgb 9.9 L, Hct 30.4 L, MCV 80.9, MCH 26.3 L, MCHC 32.6, RDW Std Deviation 49.9 H, RDW Coeff of Heriberto 17.2 H, Plt Count 230, MPV 8.9, Immature Gran % (Auto) 0.600, Neut % (Auto) 73.6 H, Lymph % (Auto) 8.5 L, [place] % (Auto) 12.9 H, Eos % (Auto) 4.1, Baso % (Auto) 0.3, Absolute Neuts (auto) 6.9, Absolute Lymphs (auto) 0.80 L, Nucleated RBC % 0, Sodium 140, Potassium 3.0 L, Chloride 106, Carbon Dioxide 22.5, Anion Gap 11, BUN 7, Creatinine 0.79, Estim Creat Clear Calc 64.13, Est GFR (MDRD) Non-Af 86, BUN/Creatinine Ratio 9.3 L, Glucose 118 H, Calcium 8.2 Physical Exam Resp normal respiratory effort Cardio regular rate GI GI Narrative: Abdomen: Soft, nondistended, tender near incision's dressed clean dry and intact, no peritoneal signs Assessment & Plan Assessment/Plan (1) Colon cancer: (2) Lower GI bleed: PLAN: Plan Tolerated full liquids will advance to low fiber diet Hemoglobin currently 9.9–Will continue to monitor–has been having clots/black stools likely residual from postoperative bleed as hemoglobin has been stable. Recommend I.S, continue out of bed to chair Trial patient on prophylactic Lovenox starting today. Patient on Effient at home (blood thinners). This should have been stopped 7 days prior to surgery. According to documentation last dose was on 01/29/25. Patient had a colonoscopy 01/[address] Brito. No active bleeding noted at the anastomosis. There was large amount of clots within the colon at the time of colonoscopy, however no active bleeding noted Lin Wright M.D. Pager: [phone] [facility] [address] [place] [address], [facility], [address] [place] [id number] Office: [phone]
[2025-02-04] MEDS: Pantoprazole Sodium 40 MG in 0.9% Normal Saline (100mL MB+) 100 ML 300 MG IV ×2 (09:16→21:14)
[2025-02-04] MEDS: Ensure Plus High Protein 120 ML LIQUID PO ×2 (09:17→16:21)
[2025-02-04] MEDS: Potassium Chloride Oral Tablet 20 MEQ 60 MEQ PO (09:17)
[2025-02-04 11:13] LABS: Magnesium 1.5 mg/dL (1.5-2.2)
[2025-02-04 13:19] LABS: Hemoglobin 10.8 g/dL (13.0-16.5)
--- NOTE | 2025-02-04 13:24 | PCM.PN.HOSP ---
Objective Data Objective Data Vital Signs: Vital Signs Temp Pulse Resp BP Pulse Ox O2 Del Method O2 Flow Rate 97.8 F 117 H 20 H 153/82 H 98 Nasal Cannula 2 02/04/25 09:03 02/04/25 12:41 02/04/25 12:41 02/04/25 12:41 02/04/25 12:41 02/04/25 12:41 02/04/25 12:41 Oxygen Flow Rate (L/min) 2 Oxygen Delivery Method Nasal Cannula Weight: 158 lb 8.198 oz Body Mass Index (BMI) 24.0 Intake & Output: Intake and Output for Last 24 Hours 02/02/25 02/03/25 02/04/25 23:59 23:59 23:59 Intake Total 2178.34 / 2178.34 1200 / 1200 446.67 / 446.67 Output Total 375 / 375 Balance 1803.34 / 1803.34 1200 / 1200 446.67 / 446.67 Lab / Micro Data 02/04/25 13:06 02/04/25 03:15 Labs: Laboratory Results - last 24 hr 02/03/25 15:36: Hgb 10.5 L, Hct 32.5 L 02/04/25 03:15: WBC 9.4, RBC 3.76 L, Hgb 9.9 L, Hct 30.4 L, MCV 80.9, MCH 26.3 L, MCHC 32.6, RDW Std Deviation 49.9 H, RDW Coeff of Heriberto 17.2 H, Plt Count 230, MPV 8.9, Immature Gran % (Auto) 0.600, Neut % (Auto) 73.6 H, Lymph % (Auto) 8.5 L, [place] % (Auto) 12.9 H, Eos % (Auto) 4.1, Baso % (Auto) 0.3, Absolute Neuts (auto) 6.9, Absolute Lymphs (auto) 0.80 L, Nucleated RBC % 0, Sodium 140, Potassium 3.0 L, Chloride 106, Carbon Dioxide 22.5, Anion Gap 11, BUN 7, Creatinine 0.79, Estim Creat Clear Calc 64.13, Est GFR (MDRD) Non-Af 86, BUN/Creatinine Ratio 9.3 L, Glucose 118 H, Calcium 8.2, Magnesium 1.5 11/15/25 13:06: Hgb 10.8 L Physical Exam Narrative Seen and examined. Seen and examined As per nursing staff he had a large black stool. Patient denies dizziness or lightheadedness or abdominal pain more than expected after surgery. H&H stat ordered. BP 153/82, heart rate 117/min. Sinus rhythm Physical exam: General: Alert, Oriented x3, Cooperative. BMI 24.2 KG per square meter. HEENT: Atraumatic, PERRLA, EOMI, Normocephalic. Oral: No Gingival or Mucosal Lesions/ Ulcerations Neck: Supple, No JVD, Negative Carotid Bruits Chest wall/Lungs: Air entry diminished in bilateral lung bases. No crepitation/rhonchi Cardiovascular: Sinus tachycardia, normal S1,S2, No M/G/R Abdomen: Bowel Sounds sluggish/hypoactive surgical dressing in midline. Mild midline expected tenderness. Mild abdominal distention/fullness on-the- flanks : No dysuria. No renal angle tenderness. No suprapubic tenderness. Extremities: No edema, Capillary Refill Less than 3 Seconds Skin: No rashes, No breakdown Musculoskeletal: No Tenderness to Palpation of Joints or Extremities Neurological: Cranial nerves II-XII grossly intact, DTR 2+/4. No acute focal neurological deficit. 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 Patient has large bloody bowel movement on MedSurg floor. Low hemoglobin on CBC and GREASE BUFFER was called in the evening as patient was found less responsive/altered mental status. Later on, CODE BLUE was called but most probably it was syncope/short period of unresponsiveness then it came back to normal. On 01/30, the patient was transferred to ICU last night. NSR on the cardiac rehabilitation specialist 1. Colon cancer/large masslike hepatic flexure status post laparoscopic right hemicolectomy with anastomosis on 01/30/2025: Patient was admitted on MedSurg floor after surgery but transferred overnight to ICU. Currently hemodynamically, heart rate, blood pressure, level of consciousness and respiration normal. traffic monitor specialist NSR at 90/min. BP 136/60. Pain control, clinical monitoring and incentive spirometry and bilateral SCDs. 02/01: Did not pass flatus yet n.p.o. has not passed flatus yet. Mild abdominal distention. Plan for EGD today 02/02: Patient had colonoscopy on 02/01. Old clot with no active bleeding. Anastomotic line was intact. 2. Rapid response, probably syncopal episode/unconsciousness most likely due to GI bleed/hypotension: Blood pressure was tenuous, documented RN 6/62 twice about 9 to 10 PM on 01/30/2025. Earlier patient had rapid response for altered mental status and then CODE BLUE for syncopal episode related with large bloody rectal bleed 02/01: Hemodynamically, no acute issues overnight. Mild hypoxia 87 to 88% on room air on 2 L of oxygen 02/02: Patient had colonoscopy yesterday which showed old clotted blood but no active bleeding. Anastomotic line intact. Was irrigated with saline. On clear liquid. Bowel function has not returned yet 02/03: H&H slightly dropped today. No acute need for blood transfusion. Tolerating clear liquid 02/04: Had a large black stool. Patient denies any dizziness lightness but has tachycardia. Blood pressure elevated. H&H Dynastat is 10.8/30%, a little more than the mornin of 9.9 g%. Continuing of treatment. Hemodynamically stable. 3. Acute blood loss anemia due to surgery/associated with surgery: Preoperative hemoglobin 9.6 dropped to 7.0 with large rectal bleed as per nursing staff. It was also accompanied with syncopal event. Patient had 2 units of PRBC transfusion and posttransfusion 9.5 g% 02/01: Patient had drop in hemoglobin from 8.5-7.6 and had 1 unit of PRBC transfusion. Posttransfusion 8.3/25%. Platelet count is normal. 02/02: Patient again dropped hemoglobin 6.5 and had 2 units of PRBC transfusion. Posttransfusion hemoglobin 10.5 g%. 02/03: As mentioned above. 4. DVT prophylaxis–SCDs. Currently pharmacological prophylaxis contraindicated because of severe anemia and GI bleed 5. CODE STATUS: Full code Charges/Coding Visit Charges Inpatient E&M: 01297 Subs Hosp L2
[2025-02-04 15:09] LABS: Potassium 3.5 mmol/L (3.3-5.1)
[2025-02-05] VITALS (7 sets, daily range): BP systolic 137–165; BP diastolic 69–100; PULSE 81–107; RESP 18–20; TEMP 35.7–36.7; O2SAT 94–100; BMI 24.0
[2025-02-05 05:56] LABS: Hematocrit 31.1 % (40-54); Hemoglobin 10.3 g/dL (13.0-16.5); Immature Granulocytes Count 0.120 X10^3/uL (0.0-0.0); Mean Corp Hgb Conc 33.1 g/dL (32-36); Mean Corpuscular Volume 80.6 fL (80-94); Mean Platelet Vol. 9.6 fl (6.2-12.0); NRBC Flagged by Analyzer 0 % (0-5); Platelet Count 253 K/mm3 (150-450); RBC Distribution Width CV 17.4 % (11.6-14.6); RBC Distribution Width SD 50.8 fl (35.1-43.9); Red Blood Count 3.86 M/mm3 (4.6-6.2); White Blood Count 9.8 K/mm3 (4.4-11.0)
[2025-02-05 06:30] LABS: Anion Gap 12 (5-15); BUN 6 mg/dL (4-19); BUN/Creat Ratio 7.7 RATIO (10-20); Calcium,Total 8.0 mg/dL (7.6-11.0); Carbon Dioxide 20.5 mmol/L (21.0-32.0); Chloride 110 mmol/L (98-108); Estimated Creatinine Clearance 64.13 ml/min (50-250); Glucose 110 mg/dL (70-99); Potassium 3.2 mmol/L (3.3-5.1)
--- NOTE | 2025-02-05 10:03 | EKG12_ITS ---
Test Reason : ARRYTHMIA Blood Pressure : */* mmHG Vent. Rate : 86 BPM Atrial Rate : 86 BPM P-R Int : 138 ms QRS Dur : 82 ms QT Int : 362 ms P-R-T Axes : 69 33 54 degrees QTcB Int : 433 ms Sinus rhythm with Premature atrial complexes Nonspecific ST abnormality Abnormal ECG Confirmed by HIMANSHU MUNOZ, KARRIE ([id number]), scientific editor LEONARDO REGALADO ([id number]) on 02/06/2025 10:59:39 AM Referred By: Axel Brito Confirmed By: KARRIE DOWNS MD
--- NOTE | 2025-02-05 10:06 | PCM.PN.SRG ---
Subjective Subjective Patient had several large bloody bowel movements yesterday–initial 1 was prior to getting Lovenox. Recheck hemoglobin has been stable. Patient states last couple bowel movements has not have any blood in it. Patient is tolerating the low fiber diet. Objective Data Objective Data Vital Signs: Vital Signs Temp Pulse Resp BP Pulse Ox O2 Del Method O2 Flow Rate 98.1 F 85 20 H 165/99 H 94 Room Air 2 02/05/25 09:58 02/05/25 09:58 02/05/25 09:58 02/05/25 09:58 02/05/25 09:58 02/05/25 09:58 02/04/25 18:06 Oxygen Flow Rate (L/min) 2 Oxygen Delivery Method Room Air Weight: 158 lb 8.198 oz Body Mass Index (BMI) 24.0 Intake & Output: Intake and Output for Last 24 Hours 02/03/25 02/04/25 02/05/25 23:59 23:59 23:59 Intake Total 1200 / 1200 1770.00 / 2270.00 750 / 750 Balance 1200 / 1200 1770.00 / 2270.00 750 / 750 Lab / Micro Data 02/05/25 05:38 02/05/25 05:38 Labs: Laboratory Results - last 24 hr 02/04/25 03:15: Magnesium 1.5 02/04/25 13:06: Hgb 10.8 L 02/04/25 14:52: Potassium 3.5 02/05/25 05:38: WBC 9.8, RBC 3.86 L, Hgb 10.3 L, Hct 31.1 L, MCV 80.6, MCH 26.7 L, MCHC 33.1, RDW Std Deviation 50.8 H, RDW Coeff of Heriberto 17.4 H, Plt Count 253, MPV 9.6, Immature Gran % (Auto) 1.200 H, Neut % (Auto) 76.3 H, Lymph % (Auto) 7.1 L, [place] % (Auto) 10.9 H, Eos % (Auto) 4.1, Baso % (Auto) 0.4, Absolute Neuts (auto) 7.5, Absolute Lymphs (auto) 0.70 L, Nucleated RBC % 0, Sodium 143, Potassium 3.2 L, Chloride 110 H, Carbon Dioxide 20.5 L, Anion Gap 12, BUN 6, Creatinine 0.72, Estim Creat Clear Calc 64.13, Est GFR (MDRD) Non-Af 89, BUN/Creatinine Ratio 7.7 L, Glucose 110 H, Calcium 8.0 Physical Exam Resp normal respiratory effort Cardio regular rate GI GI Narrative: Abdomen: Soft, nondistended, tender near incision's dressed clean dry and intact, no peritoneal signs Assessment & Plan Assessment/Plan (1) Colon cancer: (2) Lower GI bleed: PLAN: Plan Continue low fiber diet Hemoglobin currently 10.3 patient did state he was having some bloody stools but states last couple times he has not had any blood. Recommend I.S, continue out of bed to chair Will try to check with Dr. Blakely for anticoagulation that he would recommend that may not be as potent as Effient for the initial transition. Patient on Effient at home (blood thinners). This should have been stopped 7 days prior to surgery. According to documentation last dose was on 01/29/25. Patient had a colonoscopy 01/[address] Brito. No active bleeding noted at the anastomosis. There was large amount of clots within the colon at the time of colonoscopy, however no active bleeding noted addendum: due to pt asa allergy with SOB, and plavix nonresponder- will start dipyridamole 100 mg PO q6h (not carried in pharmacy at [facility]- family will get and strip picker- ok for pt to take in hospital--pharmacy only has dipyridamole/ASA) Lin Wright M.D. Pager: [phone] [facility] [address] [place] [address], [facility], [address] [place] [address] Office: [phone]
[2025-02-05] MEDS: Potassium Chloride Oral Tablet 20 MEQ 60 MEQ PO (10:08)
[2025-02-05 10:10] LABS: Magnesium 1.6 mg/dL (1.5-2.2)
[2025-02-05] MEDS: Pantoprazole Sodium 40 MG in 0.9% Normal Saline (100mL MB+) 100 ML 300 MG IV ×2 (10:11→20:53)
--- NOTE | 2025-02-05 11:20 | PN.HOSP_ITS ---
Objective Data Objective Data Vital Signs: Vital Signs Temp Pulse Resp BP Pulse Ox O2 Del Method O2 Flow Rate 98.1 F 85 20 H 165/99 H 94 Room Air 2 02/05/25 09:58 02/05/25 09:58 02/05/25 09:58 02/05/25 09:58 02/05/25 09:58 02/05/25 09:58 02/04/25 18:06 Oxygen Flow Rate (L/min) 2 Oxygen Delivery Method Room Air Weight: 158 lb 8.198 oz Body Mass Index (BMI) 24.0 Intake & Output: Intake and Output for Last 24 Hours 02/03/25 02/04/25 02/05/25 23:59 23:59 23:59 Intake Total 1200 / 1200 1770.00 / 2270.00 850 / 850 Balance 1200 / 1200 1770.00 / 2270.00 850 / 850 Lab / Micro Data 02/05/25 05:38 02/05/25 05:38 Labs: Laboratory Results - last 24 hr 02/04/25 13:06: Hgb 10.8 L 02/04/25 14:52: Potassium 3.5 02/05/25 05:38: WBC 9.8, RBC 3.86 L, Hgb 10.3 L, Hct 31.1 L, MCV 80.6, MCH 26.7 L, MCHC 33.1, RDW Std Deviation 50.8 H, RDW Coeff of Heriberto 17.4 H, Plt Count 253, MPV 9.6, Immature Gran % (Auto) 1.200 H, Neut % (Auto) 76.3 H, Lymph % (Auto) 7.1 L, [place] % (Auto) 10.9 H, Eos % (Auto) 4.1, Baso % (Auto) 0.4, Absolute Neuts (auto) 7.5, Absolute Lymphs (auto) 0.70 L, Nucleated RBC % 0, Sodium 143, P otassium 3.2 L, Chloride 110 H, Carbon Dioxide 20.5 L, Anion Gap 12, BUN 6, Creatinine 0.72, Estim Creat Clear Calc 64.13, Est GFR (MDRD) Non-Af 89, B UN/Creatinine Ratio 7.7 L, Glucose 110 H, Calcium 8.0, Magnesium 1.6 Physical Exam Narrative Seen and examined. As per nursing staff, sometimes his heart rate was in 150 even when he is resting or sleeping. He was only heart rate in 80s to 90. training coordinator reviewed and shows sinus rhythm in the 80s to 90 with multiple PVCs/3-4 beats of NSVT. About 2-3 times on sign builder supervisor heart rate went to 120s to 138/min. Twelve-lead EKG done today and reviewed. No further black stool. Physical exam: General: Alert, Oriented x3, Cooperative. BMI 24.2 KG per square meter. HEENT: Atraumatic, PERRLA, EOMI, Normocephalic. Oral: No Gingival or Mucosal Lesions/ Ulcerations Neck: Supple, No JVD, Negative Carotid Bruits Chest wall/Lungs: Air entry diminished in bilateral lung bases. No crepitation/rhonchi Cardiovascular: Sinus tachycardia, normal S1,S2, No M/G/R Abdomen: Bowel Sounds sluggish/hypoactive surgical dressing in midline. Mild midline expected tenderness. Mild abdominal distention/fullness on-the- flanks : No dysuria. No renal angle tenderness. No suprapubic tenderness. Extremities: No edema, Capillary Refill Less than 3 Seconds Skin: No rashes, No breakdown Musculoskeletal: No Tenderness to Palpation of Joints or Extremities Neurological: Cranial nerves II-XII grossly intact, DTR 2+/4. No acute focal neurological deficit. 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 Patient has large bloody bowel movement on MedSurg floor. Low hemoglobin on CBC and PROGRAM SERVICES PLANNER was called in the evening as patient was found less responsive/altered mental status. Later on, CODE BLUE was called but most probably it was syncope/short period of unresponsiveness then it came back to normal. On 01/30, the patient was transferred to ICU last night. NSR on the sign builder supervisor 1. Colon cancer/large masslike hepatic flexure status post laparoscopic right hemicolectomy with anastomosis on 01/30/2025: Patient was admitted on MedSurg floor after surgery but transferred overnight to ICU. Currently hemodynamically, heart rate, blood pressure, level of consciousness and respiration normal. training coordinator NSR at 90/min. BP 136/60. Pain control, clinical monitoring and incentive spirometry and bilateral SCDs. 02/01: Did not pass flatus yet n.p.o. has not passed flatus yet. Mild abdominal distention. Plan for EGD today 02/02: Patient had colonoscopy on 02/01. Old clot with no active bleeding. Anastomotic line was intact. 2. Rapid response, probably syncopal episode/unconsciousness most likely due to GI bleed/hypotension: Blood pressure was tenuous, documented RN 6/ twice about 9 to 10 PM on 01/30/2025. Earlier patient had rapid response for altered mental status and then CODE BLUE for syncopal episode related with large bloody rectal bleed 02/01: Hemodynamically, no acute issues overnight. Mild hypoxia 87 to 88% on room air on 2 L of oxygen 02/02: Patient had colonoscopy yesterday which showed old clotted blood but no active bleeding. Anastomotic line intact. Was irrigated with saline. On clear liquid. Bowel function has not returned yet 02/03: H&H slightly dropped today. No acute need for blood transfusion. Tolerating clear liquid 02/04: Had a large black stool. Patient denies any dizziness lightness but has tachycardia. Blood pressure elevated. H&H Dynastat is 10.8/30%, a little more than the mornin of 9.9 g%. Continuing of treatment. Hemodynamically stable. 02/05: H&H 10.3/31%. Platelet count 253. No acute decrease. Continue treatment 3. Acute blood loss anemia due to surgery/associated with surgery: Preoperative hemoglobin 9.6 dropped to 7.0 with large rectal bleed as per nursing staff. It was also accompanied with syncopal event. Patient had 2 units of PRBC transfusion and posttransfusion 9.5 g% 02/01: Patient had drop in hemoglobin from 8.5-7.6 and had 1 unit of PRBC transfusion. Posttransfusion 8.3/25%. Platelet count is normal. 02/02: Patient again dropped hemoglobin 6.5 and had 2 units of PRBC transfusion. Posttransfusion hemoglobin 10.5 g%. 02/03: As mentioned above. Sinus tachycardia, PVCs and hypertension: Twelve-lead EKG done and shows NSR with PACs, 86 beats minute. QTc 433 ms. On sign builder supervisor intermittent tachycardia 110s to 120 highest goes low 140s. Multiple PVCs and 1-2 episode of 3-4 beats of NSVT. Metoprolol succinate 25 mg daily ordered. Blood pressure also elevated. Losartan dose increased. Serum magnesium was 1.6. Low normal therefore magnesium sulfate 2 g IV ordered. Mild hypokalemia K3.2, potassium replacement ordered 4. DVT prophylaxis–SCDs. Currently pharmacological prophylaxis contraindicated because of severe anemia and GI bleed 5. CODE STATUS: Full code Laboratory Results 02/04/25 13:06: Hgb 10.8 L 02/04/25 14:52: Potassium 3.5 02/05/25 05:38: WBC 9.8, RBC 3.86 L, Hgb 10.3 L, Hct 31.1 L, MCV 80.6, MCH 26.7 L, MCHC 33.1, RDW Std Deviation 50.8 H, RDW Coeff of Heriberto 17.4 H, Plt Count 253, MPV 9.6, Immature Gran % (Auto) 1.200 H, Neut % (Auto) 76.3 H, Lymph % (Auto) 7.1 L, [place] % (Auto) 10.9 H, Eos % (Auto) 4.1, Baso % (Auto) 0.4, Absolute Neuts (auto) 7.5, Absolute Lymphs (auto) 0.70 L, Nucleated RBC % 0, Sodium 143, P otassium 3.2 L, Chloride 110 H, Carbon Dioxide 20.5 L, Anion Gap 12, BUN 6, Creatinine 0.72, Estim Creat Clear Calc 64.13, Est GFR (MDRD) Non-Af 89, B UN/Creatinine Ratio 7.7 L, Glucose 110 H, Calcium 8.0, Magnesium 1.6 Charges/Coding Visit Charges Inpatient E&M: 83182 Subs Hosp L2
[2025-02-05] MEDS: Magnesium Sulfate 2 GM in Dextrose 5%-Water (100mL Bag) 100 ML IV (11:49)
[2025-02-05] MEDS: Metoprolol(XL)Succ 25 MG Tablet PO (14:53)
[2025-02-05] MEDS: Ensure Plus High Protein 120 ML LIQUID PO (14:58)
[2025-02-05] MEDS: Potassium Chloride Oral Tablet 20 MEQ 40 MEQ PO (14:58)
[2025-02-05] MEDS: 0.9% Normal Saline (1000mL) 1,000 ML 50 ML IV (18:34)
[2025-02-06 03:36] VITALS: BP 153/67; PULSE 80; RESP 18; TEMP 36.9; O2SAT 94
[2025-02-06 04:06] LABS: Hematocrit 31.2 % (40-54); Hemoglobin 10.1 g/dL (13.0-16.5); Immature Granulocytes Count 0.090 X10^3/uL (0.0-0.0); Mean Corp Hgb Conc 32.4 g/dL (32-36); Mean Corpuscular Volume 81.3 fL (80-94); Mean Platelet Vol. 9.7 fl (6.2-12.0); NRBC Flagged by Analyzer 0 % (0-5); Platelet Count 290 K/mm3 (150-450); RBC Distribution Width CV 17.6 % (11.6-14.6); RBC Distribution Width SD 51.9 fl (35.1-43.9); Red Blood Count 3.84 M/mm3 (4.6-6.2); White Blood Count 10.2 K/mm3 (4.4-11.0)
[2025-02-06 04:28] LABS: Anion Gap 9 (5-15); BUN 4 mg/dL (4-19); BUN/Creat Ratio 5.9 RATIO (10-20); Calcium,Total 8.2 mg/dL (7.6-11.0); Carbon Dioxide 22.4 mmol/L (21.0-32.0); Chloride 111 mmol/L (98-108); Estimated Creatinine Clearance 64.13 ml/min (50-250); Glucose 111 mg/dL (70-99); Magnesium 2.0 mg/dL (1.5-2.2); Potassium 3.6 mmol/L (3.3-5.1)
[2025-02-06 05:37] VITALS: BMI 24.2
[2025-02-06 09:03] VITALS: BP 193/88; PULSE 103; RESP 20; TEMP 36.7; O2SAT 96
--- NOTE | 2025-02-06 09:04 | PCM.PN.SRG ---
Subjective Subjective Patient evaluated resting comfortably in bed. He denies any nausea, vomiting, fever. He is tolerating his transitional diet well. He notes multiple more bowel movements without any blood noted. Patient voices he would like to be discharged today. Objective Data Objective Data Vital Signs: Vital Signs Temp Pulse Resp BP Pulse Ox O2 Del Method O2 Flow Rate 98.1 F 103 H 20 H 193/88 H 96 Room Air 2 02/06/25 09:03 02/06/25 09:03 02/06/25 09:03 02/06/25 09:03 02/06/25 09:03 02/06/25 09:03 02/04/25 18:06 Oxygen Flow Rate (L/min) 2 Oxygen Delivery Method Room Air Weight: 159 lb 6.307 oz Body Mass Index (BMI) 24.2 Intake & Output: Intake and Output for Last 24 Hours 02/04/25 02/05/25 02/06/25 23:59 23:59 23:59 Intake Total 1770.00 / 2270.00 2974 / 2974 Output Total 300 / 300 Balance 1770.00 / 2270.00 2974 / 2974 -300 / -300 Lab / Micro Data 02/06/25 03:30 02/06/25 03:30 Labs: Laboratory Results - last 24 hr 02/05/25 05:38: Magnesium 1.6 02/06/25 03:30: WBC 10.2, RBC 3.84 L, Hgb 10.1 L, Hct 31.2 L, MCV 81.3, MCH 26.3 L, MCHC 32.4, RDW Std Deviation 51.9 H, RDW Coeff of Heriberto 17.6 H, Plt Count 290, MPV 9.7, Immature Gran % (Auto) 0.900, Neut % (Auto) 76.7 H, Lymph % (Auto) 7.0 L, [place] % (Auto) 10.4 H, Eos % (Auto) 4.6, Baso % (Auto) 0.4, Absolute Neuts (auto) 7.8 H, Absolute Lymphs (auto) 0.71 L, Nucleated RBC % 0, Sodium 142, Potassium 3.6, Chloride 111 H, Carbon Dioxide 22.4, Anion Gap 9, BUN 4, Creatinine 0.75, Estim Creat Clear Calc 64.13, Est GFR (MDRD) Non-Af 88, BUN/Creatinine Ratio 5.9 L, Glucose 111 H, Calcium 8.2, Magnesium 2.0 Physical Exam GI GI Narrative: Abdomen- soft, nontender. Incisions c/d/i. No erythema or infection noted. Assessment & Plan Assessment/Plan (1) Colon cancer: QUALIFIERS: Colon location: ascending Qualified Code(s): C18.2 - Malignant neoplasm of ascending colon (2) Lower GI bleed: (3) Syncopal episodes: QUALIFIERS: Syncope type: vasovagal syncope Qualified Code(s): R55 - Syncope and collapse PLAN: Plan I am following this patient in conjunction with Dr. Wright. Labs reviewed. No changes at this time. Patient seems to be improved. He will need to be discharged to home on dipyridamole in place of his Effient He will follow-up with Dr. Brito in [address] Blakely in 1 week to review when to resume the Effient Patient will also be discharged to home on transitional diet Patient is ready for d/c from a surgical standpoint Will reach out to medicine to see if he is medically able to be discharged Charges/Coding Visit Charges Inpatient E&M: 28343 Subs Hosp L1 (post-op; no charge)
[2025-02-06] MEDS: Pantoprazole Sodium 40 MG in 0.9% Normal Saline (100mL MB+) 100 ML 300 MG IV (09:15)
[2025-02-06] MEDS: Magnesium Chloride 64 MG Delay Rel.Tablet 128 MG PO (09:16)
[2025-02-06 09:17] VITALS: BP 193/88; PULSE 103
[2025-02-06] MEDS: Metoprolol(XL)Succ 25 MG Tablet PO (09:17)
[2025-02-06] MEDS: Potassium Chloride Oral Tablet 20 MEQ 40 MEQ PO (09:17)
[2025-02-06 11:01] VITALS: BP 135/67; PULSE 81; RESP 20; TEMP 36.6; O2SAT 95
[2025-02-06 13:13] VITALS: O2SAT 96
[2025-02-06] MEDS: Albuterol 2.5 MG/3 ML VIAL.NEB. INHALATION (13:37)
[2025-02-06 13:38] VITALS: PULSE 83; RESP 14
--- NOTE | 2025-02-06 15:58 | PCM.PN.HOSP ---
Subjective Subjective Was reporting some shortness of breath today which she reports happens with his asthma, had a breathing treatment and reportedly was feeling back to baseline with no new or acute complaints on day of discharge Objective Data Objective Data Vital Signs: Vital Signs Temp Pulse Resp BP Pulse Ox O2 Del Method O2 Flow Rate 97.8 F 83 14 135/67 H 96 Room Air 2 02/06/25 11:01 02/06/25 13:38 02/06/25 13:38 02/06/25 11:01 02/06/25 13:13 02/06/25 11:01 02/04/25 18:06 Oxygen Flow Rate (L/min) 2 Oxygen Delivery Method Room Air Weight: 72.3 kg Body Mass Index (BMI) 24.2 Intake & Output: Intake and Output for Last 24 Hours 02/04/25 02/05/25 02/06/25 23:59 23:59 23:59 Intake Total 1770.00 / 2270.00 2974 / 2974 725.83 / 725.83 Output Total 300 / 300 Balance 1770.00 / 2270.00 2974 / 2974 425.83 / 425.83 Lab / Micro Data 02/06/25 03:30 02/06/25 03:30 Labs: Laboratory Results - last 24 hr 02/06/25 03:30: WBC 10.2, RBC 3.84 L, Hgb 10.1 L, Hct 31.2 L, MCV 81.3, MCH 26.3 L, MCHC 32.4, RDW Std Deviation 51.9 H, RDW Coeff of Heriberto 17.6 H, Plt Count 290, MPV 9.7, Immature Gran % (Auto) 0.900, Neut % (Auto) 76.7 H, Lymph % (Auto) 7.0 L, [place] % (Auto) 10.4 H, Eos % (Auto) 4.6, Baso % (Auto) 0.4, Absolute Neuts (auto) 7.8 H, Absolute Lymphs (auto) 0.71 L, Nucleated RBC % 0, Sodium 142, Potassium 3.6, Chloride 111 H, Carbon Dioxide 22.4, Anion Gap 9, BUN 4, Creatinine 0.75, Estim Creat Clear Calc 64.13, Est GFR (MDRD) Non-Af 88, BUN/Creatinine Ratio 5.9 L, Glucose 111 H, Calcium 8.2, Magnesium 2.0 Physical Exam Narrative General: Alert, oriented, no apparent distress HEENT: Atraumatic, normocephalic Eyes: Anicteric, normal conjunctiva, extraocular movements grossly intact Neck: Supple Respiratory: Scattered wheezes Cardiovascular: Regular rate and rhythm GI: Soft, nontender, nondistended Extremities: No edema Musculoskeletal: Moving all extremities Neuro: No overt focal neurological deficits Skin: No rashes appreciated Psych: Cooperative Assessment & Plan Assessment/Plan (1) Colon cancer: QUALIFIERS: Colon location: ascending Qualified Code(s): C18.2 - Malignant neoplasm of ascending colon (2) Fecal occult blood test positive: (3) Syncopal episodes: QUALIFIERS: Syncope type: vasovagal syncope Qualified Code(s): R55 - Syncope and collapse PLAN: Plan # History of asthma - Patient was reporting some shortness of breath earlier but said it is consistent with his asthma and he has nebulizers and albuterol at home, patient received breathing treatment and reportedly was feeling back to baseline - Advised to continue home inhalers # Hypertension - Patient has had several adjustments here including increase losartan and starting metoprolol, scripts sent in preferred pharmacy on file - BP at 11 135/67, follow-up with PCP for any further monitoring and adjustments #Colon cancer/large masslike hepatic flexure -status post laparoscopic right hemicolectomy with anastomosis on 01/30/2025 - Patient had scope 02/01 which showed old clot with no active bleeding - Presently stable, being managed by surgery # Acute blood loss anemia - Perioperatively, hemoglobin preop 9.6 and dropped to 7, patient with large rectal bleed and syncopal episode -Received 2 units packed red blood cells with improvement in hemoglobin - Patient stabilized #DVT ppx: SCDs Lucero Martin MD Time spent in the patient's overall evaluation, decision-making process, review of diagnostic data, adjustment of management, discussion with other providers, nursing and ancillary staff involved in patient's care documentation, 36 Minutes Charges/Coding Visit Charges Inpatient E&M: 89606 Subs Hosp L2
--- NOTE | 2025-02-06 16:05 | DS.PCM_ITS ---
Providers Date of Admission: 01/30/25 Date of Discharge: 02/06/25 Primary Care Physician: Dr. J Luis Mcgill MD Consultations 01/30/25 19:36 Consult: Hospitalist Routine Consulting Provider: [place] Rich Reason for Consult: intensive care EMERGENT Consult: No Notified: Yes Date Notified: 01/30/25 Time Notified: 19:37 Method of Notification: Verbal Consult: Ortho Tech / Pulmonary Medicine Routine Consulting Provider: Intensivists/Pulmonary Med Reason for Consult: intensive care EMERGENT Consult: No Notified: Yes Date Notified: 01/31/25 Time Notified: 05:14 Method of Notification: Text Reason For Visit: COLON CANCER Diagnosis Discharge Diagnosis (1) Colon cancer: Status: Acute Code(s): C18.9 - Malignant neoplasm of colon, unspecified Qualifiers: Colon location: ascending Qualified Code(s): C18.2 - Malignant neoplasm of ascending colon (2) Lower GI bleed: Status: Acute Code(s): K92.2 - Gastrointestinal hemorrhage, unspecified (3) Syncopal episodes: Status: Acute Code(s): R55 - Syncope and collapse Qualifiers: Syncope type: vasovagal syncope Qualified Code(s): R55 - Syncope and collapse Plan I am following this patient in conjunction with Dr. Wright. Labs reviewed. No changes at this time. Patient seems to be improved. He will need to be discharged to home on dipyridamole in place of his Effient He will follow-up with Dr. Brito in [address] Blakely in 1 week to review when to resume the Effient Patient will also be discharged to home on transitional diet Patient is ready for d/c from a surgical standpoint Will reach out to medicine to see if he is medically able to be discharged Medications at Discharge Home Medications albuterol sulfate 90 mcg/actuation aerosol inhaler (Ventolin HFA) 1 - 2 puff inhalation Q4H PRN PRN Wheezing ##1 05/02/14 montelukast 10 mg tablet (Singulair) 10 mg PO DAILY LUNGS 05/02/14 acetaminophen 325 mg capsule (Tylenol) 325 mg PO TID PRN fever or pain 11/20/21 mirtazapine 7.5 mg tablet 7.5 mg PO QHS RLS 04/11/24 atorvastatin 40 mg tablet 40 mg PO QHS CHOLESTEROL 06/03/24 nitroglycerin 0.4 mg sublingual tablet 0.4 mg sublingual Q5M PRN chest pain 06/03/24 amlodipine 10 mg tablet 10 mg PO QDAY BP #90 tabs 06/13/24 prasugrel HCl 10 mg tablet 10 mg PO QDAY PVD #30 tabs 07/27/24 Held on 02/06/25. Instructions: Resume on 02/20/25. Hold until cleared by Dr. Brito isosorbide mononitrate 30 mg tablet,extended release 24 hr 30 mg PO QAM HEART #30 tabs 10/18/24 polysaccharide iron complex 150 mg iron capsule 150 mg PO QODAY IRON 01/10/25 albuterol sulfate 2.5 mg/3 mL (0.083 %) solution for nebulization 2.5 mg inhalation Q4H PRN shortness of breath or wheezing 01/20/25 dipyridamole 50 mg tablet 100 mg (2 x 50 mg) PO Q6H #56 tabs 02/05/25 losartan 100 mg tablet 100 mg PO DAILY 30 days #30 tabs 02/06/25 metoprolol succinate 25 mg tablet,extended release 24 hr 25 mg PO DAILY 30 days #30 tabs 02/06/25 Hospital Course Operations colectomy (Laparoscopic right hemicolectomy with anastomosis) and - Summary of Care Provided Minutes Spent on Discharge: 35 Hospital Course: PAtient is an 84 y/o M who presented with a diagnosis of colon cancer. Dr. Brito performed an elective Laparoscopic right hemicolectomy with anastomosis on 01/30/25. Patient tolerated the procedure well. POD #0, that evening patient had a syncopal episode while going to the bathroom. MADELINE CLINTON was initially called followed by a rapid response. Patient just prior had a significantly large bloody bowel movement. Patient was transferred to ICU where he received 2 units of PRBC. Patient was noted to have a decrease in his Hgb at one point it was 6.5. Another 2 units of PRBC was given. Patient was taken for a colonoscopy by Dr. Brito on 02/01/25. A large amount of clot was noted within the colon. No active bleeding was noted however. Patient's Hgb stabilized and was 10.1 upon discharge. Patient was on Effient prior to surgery and according to documentation, patient's las dose was on 01/29/25. This may have contributed to the significant post-operative blood clot within the colon and decrease in Hgb. Patient was placed on an alternative blood thinner, dipyridamole prior to discharge and tolerated without any bloody bowel movements. Patient had his blood pressure medication increased due to hypertension throughout his hospitalization. Upon discharge, patient has had a return of bowel function without any blood in his stool. He is tolerating a transitional diet. He completed a breathing treatment for shortness of breath from his asthma. He will follow-up with Dr. Brito in 1 week (appointment has been made). He will also follow-up with Dr. Blakely and his PCP. Weight / BMI Weight Weight: 159 lb 6.307 oz Body Mass Index (BMI) 24.2 ABG / Lab / Microbiology Data 02/06/25 03:30 02/06/25 03:30 Laboratory: Laboratory Results - last 24 hr 02/06/25 03:30: WBC 10.2, RBC 3.84 L, Hgb 10.1 L, Hct 31.2 L, MCV 81.3, MCH 26.3 L, MCHC 32.4, RDW Std Deviation 51.9 H, RDW Coeff of Heriberto 17.6 H, Plt Count 290, MPV 9.7, Immature Gran % (Auto) 0.900, Neut % (Auto) 76.7 H, Lymph % (Auto) 7.0 L, [place]ston % (Auto) 10.4 H, Eos % (Auto) 4.6, Baso % (Auto) 0.4, Absolute Neuts (auto) 7.8 H, Absolute Lymphs (auto) 0.71 L, Nucleated RBC % 0, Sodium 142, Potassium 3.6, Chloride 111 H, Carbon Dioxide 22.4, Anion Gap 9, BUN 4, Creatinine 0.75, Estim Creat Clear Calc 64.13, Est GFR (MDRD) Non-Af 88, B UN/Creatinine Ratio 5.9 L, Glucose 111 H, Calcium 8.2, Magnesium 2.0 D/C Instructions Discharge Activity: May Not Drive (3-5 days) and May Shower Lifting Restrictions: 15 pounds for 4 weeks Call your doctor if your incision/area has: Continuous Slow Oozing, Sudden Increased Bleeding, Increased Pain/ Swelling, Increased Redness, Foul Smelling Discharge and Swelling at the incision site Call your doctor if you observe: Fever of 101 or Higher Suture Line Care: Avoid Pulling/Pushing and Avoid Pinching/Bending Cleanse incision/area with: Soap & Water DC O2, CPAP, BIPAP Needs Home O2 Discharge instructions: No Please Follow Up With: Axel Brito MD When: Follow-up with Dr. Brito on 02/15/25 at 9:30 AM. Please call [phone], option #2 Meaningful Use Info Meaningful Use Meaningful Use Diagnoses (Choose all that apply): None applicable Discharge Plan Admission Admit Date/Time: 01/30/25 10:15 Primary Reason for Your Visit: s/p colectomy; lower GI bleed Attending Provider: Axel Brito Primary Care Provider: J Luis Mcgill Chi Consulting Providers: Benny Roberts; [place]ito Rich; Lucero Martin Instructions Additional Instructions / Restrictions: Colectomy Diet · Start light with soups and soft bland foods. Refer to your transitional diet instruction sheet Activity · You may drive in 5-7 days but not while taking narcotic pain medication. · I encourage walking. You may go up steps, one at a time. · Do not swim or use hot tubs for 2 weeks. Lifting · You may lift up to 15 pounds for 4 weeks. Dressings/Incision · You may shower OVER your plastic dressings · Do NOT tub bathe for 1 week · When plastic dressings are removed, you will find steri strips. It is okay to continue showering with them in place, pat them dry. · You may remove steri-strips after 1 week. We recommend getting them soaking wet for easier removal. Medications · Anesthesia used during surgery and pain medications may cause constipation. I recommend initiating on the day of surgery a fiber supplement like, Metamucil, Citrucel, FiberCon, Benefiber, or a generic form of these medications. 1 heaping tablespoon in water daily. You may continue to utilize any bowel regimen or oral laxatives that you routinely take. · As long as you are not intolerant to Tylenol, acetaminophen, ibuprofen, Motrin, Advil, Aleve, or similar medications, I would recommend transitioning to these [id number] medicines as soon as possible instead of continued use of narcotic pain medication. Follow up · Your follow-up is scheduled for 02/15/25 at 0930 AM at [facility] office with Dr. Brito. Please call [phone] option 2 if that appointment needs to be changed. Transitional Diet Beverages: · Soda (cola, diet cola, lemon-mohegan, diet lemon-mohegan, nan timo, diet nan timo) · Tea (hot or iced) · Milk (low-fat, 2%, lactose free) · Coffee · Juice (without pulp) · Oral Nutrition supplement Breakfast: · Hot cereal (oatmeal or cream of wheat) · Scrambled eggs · Blueberry muffin · Cold cereal (no whole grain cereals) · [place] (white) Lunch or Dinner: Deli Items: Hot Items: [place] sandwich Roast [place] Tuna salad (sandwich or alone) Macaroni & Cheese Egg salad (sandwich or alone) Mashed potatoes & gravy Chicken salad (sandwich or alone) Carrots Green beans Cold Sides: Soups: Cottage cheese Vegetable soup Yogurt Chicken noodle Hardboiled egg Dessert: · Gelatin, pudding Discharge Orders/Prescriptions Prescriptions: New dipyridamole 50 mg tablet 100 mg PO Q6H Qty: 56 0RF Rx Instructions: administer 1 hour before or 2 hours after food or meals metoprolol succinate 25 mg Tablet Extended Release 24 Hr 25 mg PO DAILY 30 Days Qty: 30 0RF losartan 100 mg Tablet 100 mg PO DAILY 30 Days Qty: 30 0RF Continued acetaminophen [Tylenol] 325 mg capsule 325 mg PO TID PRN (Reason: fever or pain) mirtazapine 7.5 mg tablet 7.5 mg PO QHS nitroglycerin 0.4 mg tablet, sublingual 0.4 mg sublingual Q5M PRN (Reason: chest pain) Rx Instructions: do not exceed 3 doses per episode atorvastatin 40 mg tablet 40 mg PO QHS montelukast [Singulair] 10 MG tablet 10 mg PO DAILY Patient Comments: lungs albuterol sulfate [Ventolin HFA] 1 INHALER inhaler 1 - 2 puff inhalation Q4H PRN PRN (Reason: Wheezing) Qty: 1 0RF Patient Comments: lungs, shortness of breath polysaccharide iron complex 150 mg iron capsule 150 mg PO QODAY albuterol sulfate 2.5 mg /3 mL (0.083 %) solution for nebulization 2.5 mg inhalation Q4H PRN (Reason: shortness of breath or wheezing) amlodipine 10 mg tablet 10 mg PO QDAY Qty: 90 3RF isosorbide mononitrate 30 mg tablet extended release 24 hr 30 mg PO QAM Qty: 30 3RF Held prasugrel HCl 10 mg tablet 10 mg PO QDAY Qty: 30 11RF Hold Instructions: Resume on 02/20/25. Hold until cleared by Dr. Brito Discontinued losartan 50 mg tablet 50 mg PO DAILY metronidazole 500 mg tablet 500 mg PO .COMPLEX Qty: 6 0RF Rx Instructions: Take 2 (two) tablets at 1300, 1500, 2300 neomycin 500 mg tablet 500 mg PO .COMPLEX Qty: 6 0RF Rx Instructions: Take two (2) 500 mg tablets PO at 1300, 1500, 2300 Referrals / Follow Up: Axel Brito MD [Med Staff - Active Staff, General Surgery] - 02/15/25 9:30 am J Luis Mcgill Chi, MD [Primary Care Provider, Geriatrics] Disposition Disposition (needs filled in before D/C Order can be placed): Home, Self Care Charges/Coding Visit Charges Inpatient E&M: 72148 Disch Hosp (no charge; post-op)
== END 2025-02-06 18:34 | disposition home or self-care (01) | DRG 330 ==
LOC: ICU 01-31 08:07 → MS3 01-31 08:55 → ICU 02-01 07:41 → PCU 02-02 02:04
PROVIDERS: Anesthesiology; Family Medicine; Internal Medicine Gastroenterology; Physician Assistant; Surgery; Admitting Provider Surgery; PCP Family Medicine Geriatric Medicine; Referring Provider Surgery; Visit Provider Surgery
PROC: 0DTF4ZZ Resection of Right Large Intestine, Percutaneous Endoscopic Approach (ICD-10-PCS; CPT 44205; principal; 2025-01-30 07:10)
PROC: 0DJD8ZZ Inspection of Lower Intestinal Tract, Via Natural or Artificial Opening Endoscopic (ICD-10-PCS; CPT 45378; principal; 2025-02-01 09:25)
DX: C18.3 Malignant neoplasm of hepatic flexure (principal); C18.2 Malignant neoplasm of ascending colon; D62 Acute posthemorrhagic anemia; I47.10 Supraventricular tachycardia, unspecified; K91.841 Postprocedural hemorrhage of a digestive system organ or structure following other procedure; K92.1 Melena; D50.9 Iron deficiency anemia, unspecified; D12.0 Benign neoplasm of cecum; J45.909 Unspecified asthma, uncomplicated; I10 Essential (primary) hypertension; G25.81 Restless legs syndrome; I73.9 Peripheral vascular disease, unspecified; I65.22 Occlusion and stenosis of left carotid artery; E78.5 Hyperlipidemia, unspecified; I95.9 Hypotension, unspecified; E87.6 Hypokalemia; I25.10 Atherosclerotic heart disease of native coronary artery without angina pectoris; R09.02 Hypoxemia; I49.3 Ventricular premature depolarization; R55 Syncope and collapse; Z86.73 Personal history of transient ischemic attack (TIA), and cerebral infarction without residual deficits; Z87.19 Personal history of other diseases of the digestive system; Z90.49 Acquired absence of other specified parts of digestive tract; Z79.899 Other long term (current) drug therapy
CPT/HCPCS: 36415; 80048; 82378; 82962; 83735; 84132; 85014; 85018; 85025; 85027; 85610; 85730; 86850; 86900; 86901; 88307; 88309; 93005; 94640; 94668; 94762; 97110; 97116; 97163; 97167; 97530; 97535; 99252; P9016; A4216; G0463; J0525; J0666; J2405; J3475

== ENCOUNTER 2025-02-13 13:41 | Inpatient (IN) | payer MEDICARE, SELFPAY ==
[2025-02-13] VITALS (7 sets, daily range): BP systolic 124–135; BP diastolic 62–68; PULSE 72–90; RESP 16–22; TEMP 35.9–36.8; O2SAT 94–98; BMI 19.9
--- NOTE | 2025-02-13 14:37 | EKG12_ITS ---
Test Reason : Blood Pressure : */* mmHG Vent. Rate : 79 BPM Atrial Rate : 79 BPM P-R Int : 152 ms QRS Dur : 80 ms QT Int : 398 ms P-R-T Axes : 79 39 55 degrees QTcB Int : 456 ms Sinus rhythm with occasional Premature ventricular complexes Nonspecific T wave abnormality Abnormal ECG Confirmed by HIMANSHU MUNOZ, KARRIE ([id number]), graphic editor LEONARDO REGALADO ([id number]) on 02/15/2025 9:10:18 AM Referred By: Confirmed By: KARRIE DOWNS MD
--- NOTE | 2025-02-13 14:37 | VDLE_ITS ---
Reason For Study Reason For Study: Pulmonary embolism RIGHT LEFT GSV is normal. GSV is normal. Acute deep vein thrombosis is noted in the right CFV, CFV is compressible, spontaneous, phasic, competent, PTV and PeroV. It is dilated and NONCOMPRESSIBLE. and demonstrates normal augmentation. Thrombus in the CFV is not well adhered to the vessel FV is compressible, spontaneous, phasic, competent casas. and demonstrates normal augmentation. FV is compressible, spontaneous, phasic, competent and POP V is compressible, spontaneous, phasic, competent demonstrates normal augmentation. and demonstrates normal augmentation. POP V is compressible, spontaneous, phasic, competent T/P Trunk is compressible. and demonstrates normal augmentation. PTV is compressible. T/P Trunk is compressible. LT PerV is compressible. Procedure This is a venous duplex using B-mode, color flow and spectral Doppler. Exam performed portable in ED. A preliminary report was called and/or faxed to [facility]. VL/Venous Duplex US - Hayes Extrem Interpretation Summary Acute deep vein thrombosis noted in the right common femoral vein, posterior ti bial vein, peroneal vein. Deep veins of the left lower extremity are patent and compressible segmentally. There is no evidence of left lower extremity deep vein thrombosis. The bilateral great saphenous veins appear vega nt and compressible segmentally. Ordering Physician: Hang Montes Referring Physician: J Luis Mcgill Chi Performed By: Maddi Corona RVT
--- NOTE | 2025-02-13 14:38 | CT_ITS ---
PROCEDURE: CTA CHEST W/WO CONTRAST 02/13/2025 REASON FOR EXAM: INCIDENTAL PE ON CT NECK STUDY TECHNIQUE: Procedure Code: [id number] Modality: CT Procedure: CTA CHEST W/WO CONTRAST Multiplanar Sagittal and Coronal images were obtained. CONTRAST: Isovue 370 VOLUME: 100 mL One or more dose reduction techniques were used (e.g., Automated exposure control, adjustment of the mA and/or kV according to patient size, use of iterative reconstruction technique). RADIATION DOSE SUMMARY: CTDlvol: 4+ 6 mGy DLP: 141 mGycm COMPARISON: 12/27/2024. FINDINGS: Mild fat stranding in the region of the midline anterior abdominal wall extending into the mesenteric fat which may represent a scar. Correlate for history of possible prior PEG tube placement or other etiology. Degenerative changes of the spine. Normal caliber esophagus. Moderate atherosclerosis of a normal caliber thoracic aorta. Right main and bilateral lobar segmental and subsegmental pulmonary artery filling defects. No evidence of right heart strain. The heart is normal in size. No suspicious mediastinal lymphadenopathy. Coronary artery calcifications are present. Mild subpleural reticulation of the lungs which is nonspecific and may represent early mild chronic interstitial changes or advanced age. CT/CTA Chest W/WO Contrast IMPRESSION: Acute pulmonary emboli involving the right main pulmonary artery and extending into bilateral lobar, segmental, and subsegmental branches. No CT evidence of right heart strain. Coronary artery calcifications. Moderate atherosclerosis of a normal caliber thoracic aorta. Mild subpleural reticulation which is nonspecific and may reflect early chronic interstitial change or age related fibrosis. Critical results communicated to the ordering provider at 3:30 p.m. michael arango Reading Location: [address]
--- NOTE | 2025-02-13 14:38 | EX.ED.DYSGE1 ---
HPI History of Present Illness Chief Complaint: General Illness Informant: patient, spouse/S.O. and PCP Narrative Narrative: Patient is an 84-year-old male with a history of asthma, recent colon cancer, and a neck stent, presenting to the ED for evaluation of incidental pulmonary emboli found on a recent CT scan. - Patient underwent a CT scan of the head and neck today, ordered by Dr. Urbina, to evaluate a neck stent with reportedly reduced blood flow. - Incidental findings on the CT scan revealed pulmonary emboli, so sent from radiology to the ED for further evaluation. - Patient denies dyspnea, pleuritic chest pain, or syncope, even with light exertion/walking. - Denies leg pain or swelling. - Diagnosed with colon cancer 3-4 weeks ago following a screening colonoscopy; underwent partial colectomy 2 weeks ago. - Postoperative colonoscopy performed to remove blood clots; patient was on Lovenox and an oral anticoagulant, which were discontinued approximately one week ago due to bleeding. - No hematochezia since hospital discharge one week ago; anticoagulation therapy is scheduled to resume on February 20. - Denies history of AFib or prior known DVT/PE. - Reports stable asthma, with no recent exacerbations. [facility] Medical History (Updated 02/13/25 @ 16:[address] Hang Montes MD) Anemia Cancer Wears hearing aid Wears dentures Wears glasses High cholesterol Restless legs Non-smoker Shortness of breath on exertion History of echocardiogram History of stress test Cardiology follow-up encounter Essential (primary) hypertension Benign prostatic hyperplasia without urinary obstruction Diverticulitis Asthma Home Medications Medication Instructions Recorded Last Taken Type montelukast 10 mg tablet 10 mg PO DAILY LUNGS 05/02/14 02/12/25 History (Singulair) acetaminophen 325 mg capsule 325 mg PO TID PRN fever or pain 11/20/21 Unknown History (Tylenol) mirtazapine 7.5 mg tablet 7.5 mg PO QHS RLS 04/11/24 02/12/25 History atorvastatin 40 mg tablet 40 mg PO QHS CHOLESTEROL 06/03/24 02/12/25 History nitroglycerin 0.4 mg sublingual 0.4 mg sublingual Q5M PRN chest 06/03/24 Unknown History tablet pain amlodipine 10 mg tablet 10 mg PO QDAY BP #90 tabs 03/24/25 11/23/25 Rx isosorbide mononitrate 30 mg 30 mg PO QAM HEART #30 tabs 10/18/24 02/12/25 Rx tablet,extended release 24 hr polysaccharide iron complex 150 mg 150 mg PO QODAY IRON 01/10/25 01/29/25 08:00 History iron capsule albuterol sulfate 2.5 mg/3 mL 2.5 mg inhalation Q4H PRN 01/20/25 Unknown History (0.083 %) solution for nebulization shortness of breath or wheezing losartan 100 mg tablet 100 mg PO DAILY 30 days #30 tabs 02/06/25 02/12/25 Rx metoprolol succinate 25 mg 25 mg PO DAILY 30 days #30 tabs 02/06/25 Unknown Rx tablet,extended release 24 hr Allergy/AdvReac Type Severity Reaction Status Date / Time naproxen (From Aleve) Allergy Unknown palpitaions, Verified 02/13/25 13:45 SOB aspirin Allergy Shortness Verified 02/13/25 13:45 of breath ibuprofen Allergy Other Verified 02/13/25 13:45 Family History Sister Cancer Mother Bleeding disorder Surgical History (Updated 02/13/25 @ 16:[address] Johana Rhodes MD) S/P partial colectomy Hx of left cataract extraction Hx of right cataract extraction Hx of colonoscopy with polypectomy History of transcarotid artery revascularization (TCAR) History of cardiac catheterization History of appendectomy Myringotomy tube status (~2005) Social History household members: spouse housing: condominium number of children: 2 pets and animals: Yes (maltise-dog) Smoking Status: Never smoker alcohol intake: never substance use type: does not use caffeine: Yes Type: coffee Number of servings: 2 ROS ROS ED Constitutional Constitutional ED: Denies chills or fever(s) Eyes Eyes: Denies change in vision or diplopia ENT ENT ED: Denies rhinorrhea or sore throat Cardiovascular Cardiovascular: Denies chest pain, dyspnea on exertion, leg edema, lightheadedness, palpitations, radiating jaw, neck or arm pain or syncope Respiratory/Chest Respiratory/Chest: Denies cough or dyspnea Gastrointestinal Gastrointestinal: Denies abdominal pain, diarrhea, nausea or vomiting Genitourinary Genitourinary ED: Denies dysuria or hematuria Musculoskeletal Musculoskeletal: Denies back pain or neck pain Integumentary Denies abscess or rash Neurologic Neurologic: Denies headache(s), paresthesias or weakness Psychiatric Psychiatric: Denies anxiety or suicidal thoughts EXAM Physical Exam Const Vital Signs: 02/13/25 13:42 02/13/25 14:04 02/13/25 14:37 Temperature 97.9 F Temperature Source Oral Pulse Rate 78 Respiratory Rate 16 Respiratory Effort Normal Respiratory Pattern Normal Blood Pressure 124/68 H Blood Pressure Mean 86 Pulse Ox 96 Oxygen Delivery Method Room Air Room Air 02/13/25 15:01 Temperature Temperature Source Pulse Rate 90 Respiratory Rate 18 Respiratory Effort Respiratory Pattern Blood Pressure 132/67 H Blood Pressure Mean 88 Pulse Ox 98 Oxygen Delivery Method Room Air Positive well nourished and well developed General Appearance ED: well developed and NAD HEENT Reports moist mucous membranes normocephalic and atraumatic Eyes PERRL and EOMs intact bilaterally Neck full ROM and supple Resp normal respiratory effort and clear to auscultation bilaterally Cardio regular rate, regular rhythm and no murmurs Cardio Narrative: Occasional irregularity, consistent with PVCs on monitor Rate: other GI non-tender and non-distended GI Narrative: Midline abdominal surgical incision without dehiscence, Steri-Strips in place, no tenderness, no signs of infection. Auscultation: normoactive bowel sounds Palpation: soft Back/Spine no CVA tenderness General Back: other FROM Extremity normal to inspection General Extremety ED: Negative for edema, pulses abnormal or tenderness General Extremity: Negative for edema or pulses abnormal Neuro oriented x3, CN's II-XII intact bilaterally and no sensory deficits noted Sensorium / Orientation: awake and alert Motor Exam: strength 5/5 throughout Psych mental status grossly normal Skin no rashes or lesions noted and no wounds Skin Narrative: Abdominal surgical incision see above MDM MDM MDM Narrative Medical decision making narrative: I reviewed the CTA of the neck images that the patient had as an outpatient today. There appear to be some filling defects in both upper lobes of the pulmonary arterial tree. Clinically, he does not appear to have any DVTs at this time, with good perfusion and no edema. I sent him for a CTA of the chest in addition to an ultrasound of both lower extremity venous systems. The ultrasound, reviewed by Dr. Urbina, shows several areas of DVT throughout the right lower extremity, including the common femoral vein. After discussing with the radiologist, the CTA of the chest is consistent with bilateral pulmonary emboli without a saddle embolus or signs of right heart strain. The EKG shows some nonspecific ST and T-wave abnormalities and PVCs, but he is not tachycardic, and his vital signs remain stable. He does have mild CHELI with a creatinine of 1.84, which is elevated compared with his prior level of 0.75 from a week ago. His troponins are abnormal but flat at 39 and then 34, likely related to his renal function rather than heart strain, as there are no radiographic findings or symptoms suggestive of cardiac involvement. Given that he recently had colon surgery and postoperative lower GI bleeding, I discussed his management with Dr. Urbina. We both agree it is best to admit the patient on a heparin drip and monitor him for bleeding, as he may require an IVC filter if bleeding occurs. I have discussed admission with the hospitalist, and Dr. Urbina from vascular will consult. 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 Labs: Laboratory Results - last 24 hr 02/13/25 02/13/25 14:06 16:00 WBC 12.7 H RBC 3.92 L Hgb 10.3 L Hct 33.2 L MCV 84.7 MCH 26.3 L MCHC 31.0 L RDW Std Deviation 53.1 H RDW Coeff of Heriberto 17.3 H Plt Count 463 H MPV 10.0 Immature Gran % (Auto) 1.600 H Neut % (Auto) 77.1 H Lymph % (Auto) 6.4 L [place] % (Auto) 9.7 Eos % (Auto) 4.2 Baso % (Auto) 1.0 Absolute Neuts (auto) 9.8 H Absolute Lymphs (auto) 0.82 L Nucleated RBC % 0 Sodium 142 Potassium 3.8 Chloride 104 Carbon Dioxide 21.7 Anion Gap 17 H BUN 19 Creatinine 1.84 H Estim Creat Clear Calc 24.22 L Est GFR (MDRD) Non-Af 35 L BUN/Creatinine Ratio 10.1 Glucose 100 H Calcium 8.7 Troponin T High Sens 39 H Troponin T Hi Sens 2 Hr 34 H Rhythm Strip Rhythm Strip: Sinus Rhythm Rate: 70 Ectopy: PVC(s) EKG Initial EKG: Attestation: I personally reviewed and interpreted this EKG as follows: Interpretation: Sinus Rhythm, No Acute Injury Pattern and Non-Specific ST Changes (inf-lat) Comments: pvcs Prior EKG tracings: available for review Prior: Unchanged Management Discussion w/another healthcare provider: Hospitalist, Automatic Stacker (dr. urbina, vascular) and Radiologist Critical Care Time Critical Care Time: Yes Critical care time (excluding procedures): 30-74 minutes (37 min), Including time spent:, Discussing w/Patient &/or Family/Traffic Sign Erection Supervisor, Discussing w/Consultants, Arranging Admission or Transfer and Performing Direct Patient Care at Bedside Discharge Plan Dx/Rx/DC Orders Clinical Impression: Bilateral pulmonary embolism, Acute deep vein thrombosis (DVT) of right lower extremity, H/O lower gastrointestinal bleeding, PAD (peripheral artery disease), CHELI (acute kidney injury), Colon cancer Disposition Disposition: Acute Care Hospital [facility]
[2025-02-13 14:45] LABS: Hematocrit 33.2 % (40-54); Hemoglobin 10.3 g/dL (13.0-16.5); Immature Granulocytes Count 0.200 X10^3/uL (0.0-0.0); Mean Corp Hgb Conc 31.0 g/dL (32-36); Mean Corpuscular Volume 84.7 fL (80-94); Mean Platelet Vol. 10.0 fl (6.2-12.0); NRBC Flagged by Analyzer 0 % (0-5); Platelet Count 463 K/mm3 (150-450); RBC Distribution Width CV 17.3 % (11.6-14.6); RBC Distribution Width SD 53.1 fl (35.1-43.9); Red Blood Count 3.92 M/mm3 (4.6-6.2); White Blood Count 12.7 K/mm3 (4.4-11.0)
[2025-02-13 15:17] LABS: Troponin T High Sensitivity 39 ng/L (<=22)
[2025-02-13 15:19] LABS: Anion Gap 17 (5-15); BUN 19 mg/dL (4-19); BUN/Creat Ratio 10.1 RATIO (10-20); Calcium,Total 8.7 mg/dL (7.6-11.0); Carbon Dioxide 21.7 mmol/L (21.0-32.0); Chloride 104 mmol/L (98-108); Estimated Creatinine Clearance 24.22 ml/min (50-250); Glucose 100 mg/dL (70-99); Potassium 3.8 mmol/L (3.3-5.1)
--- NOTE | 2025-02-13 16:27 | HP.PCM.HOS_ITS ---
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, HTN, HLD, RLS, Chronic normocytic anemia recent diagnosis of colon cancer/large masslike finding of hepatic flexure with initial scope 02/01/2025 with recent admission 01/30/2025 status post laparoscopic right hemicolectomy with anastomosis placement with complicated hospitalization and eventually discharged 02/06/2025 requiring transient ICU care with associated lower GI bleed with acute blood loss anemia requiring PRBC administration with syncopal event discharged off his anticoagulant therapy as a result following also with vascular surgery secondary to history of carotid disease status post previous left carotid artery stent who presents to the [facility] ED on 02/13/2025 secondary to recently obtaining a CTA of the head per his vascular surgeon Dr. Blakely to follow-up on his recent stent with incidentally noted at that time pulmonary emboli prompting referral to the ED to be cautious. Patient notes last episode of hematochezia was prior to his hospital discharge and has not had any since. He denies any associated chest pain, dyspnea or marked leg discomfort. He denies having had any lower extremities discomfort or marked swelling either. Workup in the ED included T97.9, heart 78, BP 120/68, respiratory rate 16, 98% on room air with most recent repeat vitals heart rate 90, BP 130/67, respiratory rate 18, 98% on room air, CBC with WBC 12.7, hemoglobin 10.3, MCV 84.7, platelet 463 with increased immature granulocytes/left shift and lymphopenia, BMP with BUN/creatinine 19/1.84, GFR 35, glucose 100, initial troponin 39 with repeat delta 34, CTPA with appearance of scattered bilateral pulmonary emboli but final read pending upon request evaluation of patient, EKG with sinus rhythm with nonspecific ST-T wave changes with no acute evidence of ischemia similar to previous with occasional PVC. Duplex in the ED upon current evaluation with notable clot to the right lower extremity. ED physician discussed case with vascular surgeon who recommended this time given acute kidney injury and obvious diffuse pulmonary emboli the patient be placed on heparin drip, hydrated and monitor for any recurrent GI bleed and if this is not the case then transitioning back potentially to oral anticoagulant. If unfortunately there is failure then plan would be for a filter. In the ED patient initiated on heparin drip. [facility] Medical History Anemia Cancer Wears hearing aid Wears dentures Wears glasses High cholesterol Restless legs Non-smoker Shortness of breath on exertion History of echocardiogram History of stress test Cardiology follow-up encounter Essential (primary) hypertension Benign prostatic hyperplasia without urinary obstruction Diverticulitis Asthma Home Medications Medication Instructions Recorded Last Taken Type montelukast 10 mg tablet 10 mg PO DAILY LUNGS 5 02/12/25 History (Singulair) acetaminophen 325 mg capsule 325 mg PO TID PRN fever o r pain 11/20/21 Unknown History (Tylenol) mirtazapine 7.5 mg tablet 7.5 mg PO QHS RLS 04/11/24 1 04/14/24 History atorvastatin 40 mg tablet 40 mg PO QHS CHOLESTEROL 02/12/25 History nitroglycerin 0.4 mg sublingual 0.4 mg sublingual Q5M PRN chest 06/03/24 Unknown History tablet pain amlodipine 10 mg tablet 10 mg PO QDAY BP #90 tabs 02/12/25 Rx isosorbide mononitrate 30 mg 30 mg PO QAM HEART #30 ta bs 10/18/24 02/12/25 Rx tablet,extended release 24 hr polysaccharide iron complex 150 mg 150 mg PO QODAY IRO N 01/10/25 01/29/25 08:00 History iron capsule albuterol sulfate 2.5 mg/3 mL 2.5 mg inhalation Q4H ND N 01/20/25 Unknown History (0.083 %) solution for nebulization shortness of breat h or wheezing losartan 100 mg tablet 100 mg PO DAILY 30 days #30 tabs 02/06/25 02/12/25 Rx metoprolol succinate 25 mg 25 mg PO DAILY 30 days #30 tabs 02/06/25 Unknown Rx tablet,extended release 24 hr Allergy/AdvReac Type Severity Reaction Status Date / Time naproxen (From Aleve) Allergy Unknown palpitaions, Verified 02/13/25 13:45 SOB aspirin Allergy Shortness Verified 02/13/25 13:45 of breath ibuprofen Allergy Other Verified 02/13/25 13:45 Family History (Updated 02/13/25 @ 16:[address] Johana Rhodes MD) Sister Cancer Mother Bleeding disorder Father Heart disease Surgical History S/P partial colectomy Hx of left cataract extraction Hx of right cataract extraction Hx of colonoscopy with polypectomy History of transcarotid artery revascularization (TCAR) History of cardiac catheterization History of appendectomy Myringotomy tube status (~2005) Social History household members: spouse housing: [facility] number of children: 2 pets and animals: Yes (maltise-dog) Smoking Status: Never smoker alcohol intake: never substance use type: does not use caffeine: Yes Type: coffee Number of servings: 2 ROS ROS Narrative Admission Review of Systems: CONSTITUTIONAL: No weight loss, fever, chills, + weakness or fatigue. HEENT: Eyes: No visual loss, blurred vision, double vision or yellow sclerae. Ears, Nose, Throat: No hearing loss, sneezing, congestion, runny nose or sore throat. SKIN: No rash or itching, lesions, wounds except + occasional stage ecchymoses, abrasion, healing abdominal incision with no drainage. CARDIOVASCULAR: No chest pain, chest pressure or chest discomfort, palpitations, edema, orthopnea, syncopal events. RESPIRATORY: No shortness of breath, cough or sputum, wheezing, hemoptysis. GASTROINTESTINAL: + Recent history of diagnosed colon cancer status post partial colectomy, no abdominal pain currently and no recurrent hematochezia or GI bleed symptoms. No anorexia, nausea, vomiting or diarrhea. GENITOURINARY: No dysuria, frequency, urgency or retention. NEUROLOGICAL: No headache, dizziness, syncope, paralysis, ataxia, numbness or tingling in the extremities, focal weakness, change in bowel or bladder control, seizure. MUSCULOSKELETAL: No muscle, back pain, joint pain or stiffness. HEMATOLOGIC: + Chronic anemia, easy bleeding/bruising. LYMPHATICS: No enlarged nodes. No history of splenectomy. PSYCHIATRIC: No history of depression or anxiety. ENDOCRINOLOGIC: No reports of sweating, cold or heat intolerance. No polyuria or polydipsia. ALLERGIES: + History of asthma with allergic rhinitis. Vital Signs Vital Signs Vital Signs: 02/13/25 13:42 02/13/25 14:04 02/13/25 14:37 Temperature 97.9 F Temperature Source Oral Pulse Rate 78 Respiratory Rate 16 Respiratory Effort Normal Respiratory Pattern Normal Blood Pressure 124/68 H Blood Pressure Mean 86 Pulse Ox 96 Oxygen Delivery Method Room Air Room Air 02/13/25 15:01 Temperature Temperature Source Pulse Rate 90 Respiratory Rate 18 Respiratory Effort Respiratory Pattern Blood Pressure 132/67 H Blood Pressure Mean 88 Pulse Ox 98 Oxygen Delivery Method Room Air Weight Weight: 131 lb Body Mass Index (BMI) 19.9 Physical Exam Narrative Physical Examination: General: Awake, alert, oriented x 3 and cooperative, seated upright in the ED bed, fatigued but no acute distress. Skin: Normal color, normal turgor, no icterus, no cyanosis except occasional stage ecchymoses, abrasion, abdominal incision healing well with Steri-Strips still in place with no drainage. HEENT: AT/NC, EOMI, PERRLA, MMM, no carotid bruits or JVD noted. Lungs: Mildly diminished, greater bases, proper effort, no rales, ronchi or wheezing. Heart: Regular rate and rhythm; no gallop, rub audible. Abdomen: Soft, NTTP, abdominal incision healing well with Steri-Strips in place with no drainage, mildly distended and some tympany but not marked, mildly hyperactive BS, no appreciated HSM. Extremities: No cyanosis, no clubbing, no significant distal edema including the right lower extremity with peripheral pulses intact. Neurological: Patient awake, alert, oriented as noted, cognitive function intact; pupils equally reactive to light and accommodation, cranial nerves grossly normal, moving all 4 extremities, no focal deficits, strength mildly to moderately globally decreased Psychiatric: Affect appears fatigued otherwise normal, no acute evidence of depressive or anxiety feelings. Results Lab / Micro Data 02/13/25 14:06 02/13/25 14:06 Labs: Laboratory Results - last 24 hr 02/13/25 14:06: WBC 12.7 H, RBC 3.92 L, Hgb 10.3 L, Hct 33.2 L, MCV 84.7, MCH 26.3 L, MCHC 31.0 L, RDW Std Deviation 53.1 H, RDW Coeff of Heriberto 17.3 H, Plt Count 463 H, MPV 10.0, Immature Gran % (Auto) 1.600 H, Neut % (Auto) 77.1 H, L ymph % (Auto) 6.4 L, [place] % (Auto) 9.7, Eos % (Auto) 4.2, Baso % (Auto) 1.0, A bsolute Neuts (auto) 9.8 H, Absolute Lymphs (auto) 0.82 L, Nucleated RBC % 0, Sodium 142, Potassium 3.8, Chloride 104, Carbon Dioxide 21.7, Anion Gap 17 H, BUN 19, Creatinine 1.84 H, Estim Creat Clear Calc 24.22 L, Est GFR (MDRD) Non-Af 35 L, BUN/Creatinine Ratio 10.1, Glucose 100 H, Calcium 8.7, Troponin T High Sens 39 H Assessment & Plan Assessment/Plan (1) CHELI (acute kidney injury): (2) Acute deep vein thrombosis (DVT) of right lower extremity: (3) Bilateral pulmonary embolism: PLAN: Plan The patient is an 84 y/o M w/ PMHx: Asthma with allergic rhinitis, 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, HTN, HLD, RLS, Chronic normocytic anemia recent diagnosis of colon cancer/large masslike finding of hepatic flexure with initial scope 02/01/2025 with recent admission 01/30/2025 status post laparoscopic right hemicolectomy with anastomosis placement with complicated hospitalization and eventually discharged 02/06/2025 requiring transient ICU care with associated lower GI bleed with acute blood loss anemia requiring PRBC administration with syncopal event discharged off his anticoagulant therapy as a result following also with vascular surgery secondary to history of carotid disease status post previous left carotid artery stent who presents to the [facility] ED on 02/13/2025 secondary to recently obtaining a CTA of the head per his vascular surgeon Dr. Blakely to follow-up on his recent stent with incidentally noted at that time pulmonary emboli prompting referral to the ED to be cautious. #1. Incidentally noted bilateral pulmonary Embolism with notable right lower lower extremity DVT with indeterminate cardiac enzyme suspected primarily secondary to recent acute kidney injury although demand could be a component: EKG without acute findings, CTPA final read pending upon requested evaluation of patient, initial troponin 39 with repeat delta 34, will admit to PCU, maintain on cardiac telemetry. Will obtain ECHO given notably large clot burden noted in the leg, BNP. Will continue therapeutic heparin drip with requested vascular surgery consultation with plan for continued close observation of CBC/I's and O's given recent GI bleed history and if no evidence of recurrence would plan to transition to oral anticoagulant however if failure then would plan for IVC filter. #2. Acute kidney injury on 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: Secondary to recent IV contrast coupled with nephrotoxic medication. Admission BUN/Cr 19/1.84, GFR 35, prior baseline creatinine noted to be primarily 0.7-1.1. Will hydrate, hold nephrotoxic medications and repeat chemistry in AM. If no improvement would plan FeNa and renal ultrasound assessment. #3. Recent diagnosis colon cancer status post surgical invention complicated as noted by GI bleed with acute blood loss anemia, resolved: Status post previous hemicolectomy, required PRBC administration during previous admission, currently hemoglobin is stable from discharge, encouraged continued follow-up with surgery as previously arranged. Closely monitoring for any recurrent GI bleed given plan for heparin drip as noted. #4. 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 #5. Chronic normocytic anemia complicated by recent GI bleed with acute blood loss anemia associated requiring PRBC administration: Admission hemoglobin 10.3, MCV 84.7, stable from recent discharge, complicates presentation, as noted will continue heparin drip and closely monitor for any recurrent GI bleed, if this is the case then would plan IVC filter otherwise with transition to oral anticoagulant and continue to closely monitor. #6. Asthma with allergic rhinitis: Not on any chronic regimen, will have as needed albuterol, encourage head of bed, continue patient home montelukast regimen. #7. Hypertension: Continue home regimen including metoprolol, losartan, isosorbide with hold parameters as needed, PRN hydralazine. Clarifying home hypertensive regimen be certain patient is on all these agents. #8. Hyperlipidemia: Will continue patient home statin therapy. #9. DVT prophylaxis: Heparin drip as noted. #10. CODE status: Patient HCPOA is not in place but he notes his who is present would be his medical decision-maker if necessary and living will is currently in place. Discussed CODE status at length including difference between FULL code, DNR-CCA and DNR-CC status. Following discussions about the differences in these status, requested Full Code status. Advanced Care Planning Face to Face Time: 16 minutes. Charges/Coding Visit Charges Inpatient E&M: 30891 Init Hosp L3 Procedures Hospitalists Procedures: 50321 Advncd Care Plan 30 Min
[2025-02-13 16:30] LABS: Troponin T High Sens 2 HR 34 ng/L (<=22)
[2025-02-13 16:46] LABS: Prothrombin Time (Protime)PT. 14.0 SECONDS (11.7-14.9)
[2025-02-13 16:47] LABS: Partial Thromboplast Time 34.1 Seconds (24.1-36.2)
[2025-02-13] MEDS: 0.9% Normal Saline (500mL Bag) 500 ML 999 ML IV (17:14)
[2025-02-13 17:29] LABS: Pro- Brain NATRIURETIC PEPTIDE 134 pg/mL (<=1800)
[2025-02-13] MEDS: HEPARIN/D5w 25,000 UNITS 25,000 UNITS/250 ML IV.SOLN. 8.9 UNITS CONT INF (17:35)
[2025-02-13] MEDS: Heparin Injection (Vial) 5,000 UNIT/ML VIAL 4000 UNIT IV (17:35)
--- NOTE | 2025-02-13 18:09 | ECHOD_ITS ---
Reason For Study Reason For Study: PULMONARY EMBOLISM Procedure This was a 2D Doppler, Color Flow transthoracic echocardiogram. Exam performed portable in patient room. Left Ventricle Normal LV size. Left ventricular systolic function is normal. The left ventricular ejection fraction is 70 %. No regional wall motion abnormalities noted. Right Ventricle Normal RV size. Normal systolic function. Atria Normal left atrium. Normal right atrium. Mitral Valve Normal mitral valve. Tricuspid Valve Normal tricuspid valve. Aortic Valve Trisinus/trileaflet aortic valve. Mild focal aortic valve calcification. Peak aortic valve gradient 17 mmHg. Mean aortic valve gradient 9 mmHg. Mild aortic stenosis. Pulmonic Valve Normal pulmonic valve. Great Vessels Moderately calcified aortic root. The pulmonary artery is normal size. Inferior vena cava collapse with respiration. Pericardium/Pleural No pericardial effusion. MMode/2D Measurements & Calculations LVIDd: 3.9 cm IVSd: 1.0 cm LVOT diam: 2.0 cm LVIDs: 2.3 cm LVPWd: 1.0 cm LVOT area: 3.0 cm2 RVDd: 3.0 cm FS: 41.2 % asc Aorta Diam: 3.3 cm LAV(MOD-bp): 25.2 ml LVAd ap4: 23.8 cm2 LAV(MOD-bp) Indexed: 14.8 ml/m2 LVLd ap4: 8.3 cm LAV(MOD-sp2): 27.7 ml EDV(MOD-sp4): 57.8 ml LAV(MOD-sp4): 22.3 ml EDV(sp4-el): 58.2 ml LVAs ap4: 11.0 cm2 LVLs ap4: 6.4 cm ESV(MOD-sp4): 16.8 ml ESV(sp4-el): 16.1 ml EF(MOD-sp4): 70.8 % EF(sp4-el): 72.3 % LVAd ap2: 22.7 cm2 SV(MOD-sp4): 40.9 ml SV(MOD-sp2): 38.1 ml LVLd ap2: 7.8 cm SI(MOD-sp4): 24.0 ml/m2 SI(MOD-sp2): 22.4 ml/m2 EDV(MOD-sp2): 55.0 ml EDV(sp2-el): 56.2 ml LVAs ap2: 11.1 cm2 LVLs ap2: 6.7 cm ESV(MOD-sp2): 16.9 ml ESV(sp2-el): 15.6 ml EF(MOD-sp2): 69.3 % SV(sp4-el): 42.1 ml LA dimension(2D): 2.7 cm LA A4 area: 11.8 cm2 RA A4 area: 9.1 cm2 TAPSE: 2.2 cm Time Measurements MV dec time: 0.33 sec Doppler Measurements & Calculations MV E max shilo: 71.3 cm/sec Lat Peak E' Shilo: 8.5 cm/sec Med Peak E' Shilo: 7.3 cm/sec MV A max shilo: 86.9 cm/sec E/E' lat: 8.4 E/E' med: 9.7 MV E/A: 0.82 Ao V2 max: 208.0 cm/sec LV V1 max: 113.7 cm/sec MV dec slope: 213.0 cm/sec2 Ao max P.3 mmHg LV V1 max P.2 mmHg Ao V2 mean: 139.3 cm/sec LV V1 mean P.9 mmHg Ao mean P.9 mmHg LV V1 mean: 81.6 cm/sec Ao V2 VTI: 42.2 cm LV V1 VTI: 23.1 cm AV (velocity ratio): 0.55 ARCHANA(I,D): 1.7 cm2 ARCHANA(V,D): 1.7 cm2 SV(LVOT): 69.7 ml PA V2 max: 83.8 cm/sec ECHO/Echo Complete Interpretation Summary Normal LV size. Left ventricular systolic function is normal. The left ventricular ejection fraction is 70 %. Mild focal aortic valve calcification. Mild aortic stenosis. Mean aortic valve gradient 9 mmHg. Ordering Physician: Johana Rhodes Referring Physician: J Luis Mcgill Chi Performed By: Sherrell Castaneda RDCS
[2025-02-13 18:41] LABS: Troponin T High Sens 4 HR 35 ng/L (<=22)
[2025-02-13] MEDS: 0.9% Saline Lock 10 ML Syringe IV (18:52)
[2025-02-13] MEDS: 0.9% Normal Saline (1000mL) 1,000 ML 100 ML IV (18:52)
[2025-02-14 00:02] LABS: Partial Thromboplast Time 164.2 Seconds (24.1-36.2)
--- NOTE | 2025-02-14 00:05 | NURSING ---
Lab called critical ptt result of 164.2 Primary nurse informed of result. Heparin gtt to be adjusted per protocol.
[2025-02-14 03:06] VITALS: BP 125/66; PULSE 79; RESP 18; TEMP 36; O2SAT 94
[2025-02-14] MEDS: 0.9% Normal Saline (1000mL) 1,000 ML 100 ML IV (04:31)
[2025-02-14 05:19] VITALS: BMI 19.8
[2025-02-14 06:31] LABS: Hematocrit 29.6 % (40-54); Hemoglobin 9.3 g/dL (13.0-16.5); Immature Granulocytes Count 0.130 X10^3/uL (0.0-0.0); Mean Corp Hgb Conc 31.4 g/dL (32-36); Mean Corpuscular Volume 82.7 fL (80-94); Mean Platelet Vol. 10.2 fl (6.2-12.0); NRBC Flagged by Analyzer 0 % (0-5); Platelet Count 417 K/mm3 (150-450); RBC Distribution Width CV 17.0 % (11.6-14.6); RBC Distribution Width SD 50.7 fl (35.1-43.9); Red Blood Count 3.58 M/mm3 (4.6-6.2); White Blood Count 9.5 K/mm3 (4.4-11.0)
[2025-02-14 07:06] LABS: AST(SGOT) 20 U/L (<=37); Alanine Aminotransfer ALT/SGPT 10 U/L (<=46); Albumin, Serum 3.1 g/dL (3.4-4.8); Alkaline Phosphatase 102 U/L (40-129); Anion Gap 13 (5-15); BUN 13 mg/dL (4-19); BUN/Creat Ratio 10.1 RATIO (10-20); Calcium,Total 8.3 mg/dL (7.6-11.0); Carbon Dioxide 22.0 mmol/L (21.0-32.0); Chloride 110 mmol/L (98-108); Estimated Creatinine Clearance 35.12 ml/min (50-250); Globulin 2.4 g/dL (2.2-4.2); Glucose 100 mg/dL (70-99); Potassium 3.3 mmol/L (3.3-5.1)
--- NOTE | 2025-02-14 07:14 | EX.PCM.CON.S ---
Assessment & Plan Assessment/Plan (1) Acute deep vein thrombosis (DVT) of right lower extremity: (2) Bilateral pulmonary embolism: (3) H/O lower gastrointestinal bleeding: PLAN: Plan Will plan to continue on heparin drip and monitor Hgb. If he tolerates heparin without signs of bleeding, then plan to transition to DOAC. If he has further bleeding, then will need to proceed with IVC filter. IVC filter indications, risks, benefits, were discussed with patient and he is agreeable to proceed if it is indicated. Plan is for continued monitoring today into tomorrow morning, IVC filter placement tomorrow if needed. Will make NPO after midnight in case of need for IVC filter placement. HPI Consult Data Date of Consult: 02/14/25 HPI Narrative HPI Narrative: BOBY VAN, is a 84 M who presented to the [facility] ER after outpatient CTA Head/Neck for evaluation of in-stent stenosis of L carotid stent incidentally revealed upper lobe PEs. In the ER, he had Chest CTA which confirmed small bilateral PEs without saddle PE or R heart strain. Lower extremity duplex revealed RLE CFV, PT, and peroneal acute DVT. He has also recently undergone laparoscopic R hemicolectomy which has been complicated by anastomotic bleeding leading to anemia; he had been maintained on Effient secondary to his carotid stent (he is Plavix resistant and has an ASA allergy) but was changed to dipyridamole due to his anemia. He was admitted to the PCU on a heparin drip. Hgb yesterday was 10.3, this morning it is 9.3. He had noted some mild SOB which he had attributed to his asthma, and it improved with breathing treatments; otherwise, no severe SOB, CP, palpitations, syncope/presyncope. He did not notice any significant lower extremity pain or edema either. This morning on exam, he is saturating well on room air, normotensive, regular rate and rhythm. [facility] Medical History Anemia Cancer Wears hearing aid Wears dentures Wears glasses High cholesterol Restless legs Non-smoker Shortness of breath on exertion History of echocardiogram History of stress test Cardiology follow-up encounter Essential (primary) hypertension Benign prostatic hyperplasia without urinary obstruction Diverticulitis Asthma Home Medications Medication Instructions Recorded Last Taken Type montelukast 10 mg tablet 10 mg PO DAILY LUNGS 05/02/14 02/12/25 History (Singulair) acetaminophen 325 mg capsule 325 mg PO TID PRN fever or pain 11/20/21 Unknown History (Tylenol) mirtazapine 7.5 mg tablet 7.5 mg PO QHS RLS 04/11/24 02/12/25 History atorvastatin 40 mg tablet 40 mg PO QHS CHOLESTEROL 06/03/24 02/12/25 History nitroglycerin 0.4 mg sublingual 0.4 mg sublingual Q5M PRN chest 06/03/24 Unknown History tablet pain amlodipine 10 mg tablet 10 mg PO QDAY BP #90 tabs 06/13/24 02/12/25 Rx isosorbide mononitrate 30 mg 30 mg PO QAM HEART #30 tabs 10/18/24 02/12/25 Rx tablet,extended release 24 hr polysaccharide iron complex 150 mg 150 mg PO QODAY IRON 01/10/25 01/29/25 08:00 History iron capsule albuterol sulfate 2.5 mg/3 mL 2.5 mg inhalation Q4H PRN 01/20/25 Unknown History (0.083 %) solution for nebulization shortness of breath or wheezing losartan 100 mg tablet 100 mg PO DAILY BP 30 days #30 tabs 02/06/25 02/12/25 Rx metoprolol succinate 25 mg 25 mg PO DAILY Heart 30 days #30 02/06/25 Unknown Rx tablet,extended release 24 hr tabs Allergy/AdvReac Type Severity Reaction Status Date / Time naproxen (From Aleve) Allergy Unknown palpitaions, Verified 02/13/25 13:45 SOB aspirin Allergy Shortness Verified 02/13/25 13:45 of breath ibuprofen Allergy Other Verified 02/13/25 13:45 Family History (Updated 02/13/25 @ 16:[address] Johana Rhodes MD) Sister Cancer Mother Bleeding disorder Father Heart disease Surgical History S/P partial colectomy Hx of left cataract extraction Hx of right cataract extraction Hx of colonoscopy with polypectomy History of transcarotid artery revascularization (TCAR) History of cardiac catheterization History of appendectomy Myringotomy tube status (~2005) Social History household members: spouse housing: condominium number of children: 2 pets and animals: Yes (maltise-dog) Smoking Status: Never smoker alcohol intake: never substance use type: does not use caffeine: Yes Type: coffee Number of servings: 2 Physical Exam Const alert, oriented x3 and no apparent distress General Appearance: cooperative and comfortable HEENT normocephalic, head/scalp atraumatic, hearing grossly normal bilaterally, external ears normal and external nose normal Eyes General Eye: normal appearance of both eyes Neck General: normal visual inspection Resp normal respiratory effort, no retractions and no use of accessory muscles Effort and Inspection: able to speak in complete sentences; Negative for labored, grunting, stridor or audible wheezes Cardio regular rate and regular rhythm Skin no rashes or lesions noted Neuro oriented x3, moves all extremities and no focal motor deficits Speech: speech normal Psych mental status grossly normal Appearance: grossly normal Attitude: calm and engaged Activity / Motor Behavior: appropriate eye contact Speech: normal speech Lab / Micro Data 02/14/25 05:08 02/14/25 05:08 Labs: Laboratory Results - last 24 hr 02/13/25 14:06: WBC 12.7 H, RBC 3.92 L, Hgb 10.3 L, Hct 33.2 L, MCV 84.7, MCH 26.3 L, MCHC 31.0 L, RDW Std Deviation 53.1 H, RDW Coeff of Heriberto 17.3 H, Plt Count 463 H, MPV 10.0, Immature Gran % (Auto) 1.600 H, Neut % (Auto) 77.1 H, Lymph % (Auto) 6.4 L, [place] % (Auto) 9.7, Eos % (Auto) 4.2, Baso % (Auto) 1.0, Absolute Neuts (auto) 9.8 H, Absolute Lymphs (auto) 0.82 L, Nucleated RBC % 0, PT 14.0, INR 1.1, APTT 34.1, Sodium 142, Potassium 3.8, Chloride 104, Carbon Dioxide 21.7, Anion Gap 17 H, BUN 19, Creatinine 1.84 H, Estim Creat Clear Calc 24.22 L, Est GFR (MDRD) Non-Af 35 L, BUN/Creatinine Ratio 10.1, Glucose 100 H, Calcium 8.7, Troponin T High Sens 39 H 02/13/25 16:00: Troponin T Hi Sens 2 Hr 34 H, NT pro BNP II 134 02/13/25 17:52: Troponin T Hi Sens 4Hr 35 H 02/13/25 23:32: APTT 164.2 H* 02/14/25 05:08: WBC 9.5, RBC 3.58 L, Hgb 9.3 L, Hct 29.6 L, MCV 82.7, MCH 26.0 L, MCHC 31.4 L, RDW Std Deviation 50.7 H, RDW Coeff of Herbierto 17.0 H, Plt Count 417, MPV 10.2, Immature Gran % (Auto) 1.400 H, Neut % (Auto) 70.2 H, Lymph % (Auto) 9.3 L, [place] % (Auto) 10.5 H, Eos % (Auto) 7.9 H, Baso % (Auto) 0.7, Absolute Neuts (auto) 6.7, Absolute Lymphs (auto) 0.89, Nucleated RBC % 0, Sodium 145, Potassium 3.3, Chloride 110 H, Carbon Dioxide 22.0, Anion Gap 13, BUN 13, Creatinine 1.26 H, Estim Creat Clear Calc 35.12 L, Est GFR (MDRD) Non-Af 56 L, BUN/Creatinine Ratio 10.1, Glucose 100 H, Calcium 8.3, Total Bilirubin 0.32, AST 20, ALT 10, Alkaline Phosphatase 102, Total Protein 5.5 L, Albumin 3.1 L, Globulin 2.4, Albumin/Globulin Ratio 1.3 Rhythm Strip Rhythm Strip: Sinus Rhythm Rate: 70 Ectopy: PVC(s) Imaging Radiology Impression Venous Doppler Study 02/13/25 14:37 Interpretation Summary Acute deep vein thrombosis noted in the right common femoral vein, posterior tibial vein, peroneal vein. Deep veins of the left lower extremity are patent and compressible segmentally. There is no evidence of left lower extremity deep vein thrombosis. The bilateral great saphenous veins appear patent and compressible segmentally. Ordering Physician: Hang Montes Referring Physician: J Luis Mcgill Chi Performed By: Maddi Corona RVT Chest CTA 02/13/25 14:38 IMPRESSION: Acute pulmonary emboli involving the right main pulmonary artery and extending into bilateral lobar, segmental, and subsegmental branches. No CT evidence of right heart strain. Coronary artery calcifications. Moderate atherosclerosis of a normal caliber thoracic aorta. Mild subpleural reticulation which is nonspecific and may reflect early chronic interstitial change or age related fibrosis. Critical results communicated to the ordering provider at 3:30 p.m. central time. Reading Location: [id number] Charges/Coding Visit Charges Inpatient E&M: 90280 Init Hosp L1
[2025-02-14 08:55] LABS: Partial Thromboplast Time 78.7 Seconds (24.1-36.2)
[2025-02-14 09:36] VITALS: BP 146/68; PULSE 77; RESP 20; TEMP 36.3; O2SAT 97
[2025-02-14 09:41] VITALS: PULSE 77
[2025-02-14] MEDS: Metoprolol(XL)Succ 25 MG Tablet PO (09:41)
--- NOTE | 2025-02-14 13:31 | PN_ITS ---
Subjective Subjective Patient seen and examined with his nurse by his bedside. He had no active complaints and had an uneventful night. Review of systems is otherwise negative. he has remained hemodynamically stable and remains on heparin drip. Objective Data Objective Data Vital Signs: Vital Signs Temp Pulse Resp BP Pulse Ox O2 Del Method 97.3 F L 77 20 H 146/68 H 97 Room Air 02/14/25 09:36 02/14/25 09:41 02/14/25 09:36 02/14/25 09:36 02/14/25 09:36 02/14/25 09:36 Oxygen Delivery Method Room Air Weight: 130 lb 1.164 oz Body Mass Index (BMI) 19.8 Intake & Output: Intake and Output for Last 24 Hours 02/12/25 02/13/25 02/14/25 23:59 23:59 23:59 Intake Total 509.05 / 509.05 2313.8 / 2313.8 Balance 509.05 / 509.05 2313.8 / 2313.8 Lab / Micro Data 02/14/25 05:08 02/14/25 05:08 Labs: Laboratory Results - last 24 hr 02/13/25 14:06: WBC 12.7 H, RBC 3.92 L, Hgb 10.3 L, Hct 33.2 L, MCV 84.7, MCH 26.3 L, MCHC 31.0 L, RDW Std Deviation 53.1 H, RDW Coeff of Heriberto 17.3 H, Plt Count 463 H, MPV 10.0, Immature Gran % (Auto) 1.600 H, Neut % (Auto) 77.1 H, L ymph % (Auto) 6.4 L, [place] % (Auto) 9.7, Eos % (Auto) 4.2, Baso % (Auto) 1.0, A bsolute Neuts (auto) 9.8 H, Absolute Lymphs (auto) 0.82 L, Nucleated RBC % 0, PT 14.0, INR 1.1, APTT 34.1, Sodium 142, Potassium 3.8, Chloride 104, Carbon Dioxide 21.7, Anion Gap 17 H, BUN 19, Creatinine 1.84 H, Estim Creat Clear Calc 24.22 L, Est GFR (MDRD) Non-Af 35 L, BUN/Creatinine Ratio 10.1, Glucose 100 H, Calcium 8.7, Troponin T High Sens 39 H 02/13/25 16:00: Troponin T Hi Sens 2 Hr 34 H, NT pro BNP II 134 02/13/25 17:52: Troponin T Hi Sens 4Hr 35 H 02/13/25 23:32: APTT 164.2 H* 02/14/25 05:08: WBC 9.5, RBC 3.58 L, Hgb 9.3 L, Hct 29.6 L, MCV 82.7, MCH 26.0 L , MCHC 31.4 L, RDW Std Deviation 50.7 H, RDW Coeff of Heriberto 17.0 H, Plt Count 417, MPV 10.2, Immature Gran % (Auto) 1.400 H, Neut % (Auto) 70.2 H, Lymph % (Auto) 9.3 L, [place] % (Auto) 10.5 H, Eos % (Auto) 7.9 H, Baso % (Auto) 0.7, Absolute Neuts (auto) 6.7, Absolute Lymphs (auto) 0.89, Nucleated RBC % 0, Sodium 145, Potassium 3.3, Chloride 110 H, Carbon Dioxide 22.0, Anion Gap 13, BUN 13, C reatinine 1.26 H, Estim Creat Clear Calc 35.12 L, Est GFR (MDRD) Non-Af 56 L, BUN/Creatinine Ratio 10.1, Glucose 100 H, Calcium 8.3, Total Bilirubin 0.32, AST 20, ALT 10, Alkaline Phosphatase 102, Total Protein 5.5 L, Albumin 3.1 L, Globulin 2.4, Albumin/Globulin Ratio 1.3 02/14/25 08:05: APTT 78.7 H Radiography Diagnostic Testing: Radiology Impression Venous Doppler Study 02/13/25 14:37 Interpretation Summary Acute deep vein thrombosis noted in the right common femoral vein, posterior tibial vein, peroneal vein. Deep veins of the left lower extremity are patent and compressible segmentally. There is no evidence of left lower extremity deep vein thrombosis. The bilateral great saphenous veins appear patent and compressible segmentally. Ordering Physician: Hang Montes Referring Physician: J Luis Mcgill Chi Performed By: Maddi Corona RVT Chest CTA 02/13/25 14:38 IMPRESSION: Acute pulmonary emboli involving the right main pulmonary artery and extending into bilateral lobar, segmental, and subsegmental branches. No CT evidence of right heart strain. Coronary artery calcifications. Moderate atherosclerosis of a normal caliber thoracic aorta. Mild subpleural reticulation which is nonspecific and may reflect early chronic interstitial change or age related fibrosis. Critical results communicated to the ordering provider at 3:30 p.m. central time. Reading Location: [address] Rhythm Strip Rhythm Strip: Sinus Rhythm Rate: 70 Ectopy: PVC(s) Physical Exam Const alert, oriented x3 and no apparent distress General Appearance: cooperative HEENT normocephalic, head/scalp atraumatic, moist oral mucous membranes and oropharynx normal Neck supple and no JVD Lymph Lymphatic: no lymphedema noted Resp normal respiratory effort, normal air movement and clear to auscultation bilaterally Cardio regular rate, regular rhythm, S1 normal heart sound, S2 normal heart sound and no murmurs GI normal to inspection, nondistended, normoactive bowel sounds, soft to palpation, non-tender and non-distended Extremity normal capillary refill, no clubbing, cyanosis or edema and no calf tenderness General Extremity: no tenderness to palpation of joints or extremities Skin General Skin Exam: no breakdown Neuro no focal motor deficits Motor Exam: strength 5/5 throughout and general weakness Psych thought process normal and cooperative Appearance: appropriate Assessment & Plan Assessment/Plan (1) Acute deep vein thrombosis (DVT) of right lower extremity: (2) Bilateral pulmonary embolism: PLAN: Plan #Bilateral pulmonary embolism * likely precipitated by his colon cancef for which he recently had hemicolectomy. * on heparin drip. * Duplex showed acute DVT in the right common femoral vein, posterior tibial vein and peroneal vein. * during his recent hemicolectomy, he had GI bleed requiring PRBC transfusion. * vascular surgery consulted for evaluation for IVC filter. Per vascular surgery, if he tolerates heparin without signs of bleeding, then to transition to a direct oral anticoagulant. If he has further bleeding, then he will need to tranition to IVC filter. To keep NPO past midnight today just in case of an IVC filter insertino tomorrow. * 2D echo ordered and is pending. * #CHELI on CKD: #Colon cancer * was recently diagnosed with colon cancer and is s/p right hemicolectomy. * was just discharged on 01/27/2025. * pathology showed an adenocarcinoma * to follow up with general surgery and oncology on outpatient basis * #Hypertension: on metoprolol and losartan as well as amlodipine. #Hyperlipidemia: on statin #BPH with risk of obstruction: on flomax. #Peripheral artery disease * s/p left sided carotid stent. * had a recent CTA per vascular surgery which showed evidence of PE. * high intensity statin. * #history of asthma: not in exacerbation. Breathing treatment with bronchodilators. #Hypertension: on metoprolol, losartan and imdur. IV hydralazine prn. DVT prophylaxis: on heparin drip. Charges/Coding Visit Charges Inpatient E&M: 37506 Subs Hosp L2
[2025-02-14 14:35] VITALS: BP 137/60; PULSE 73; RESP 18; TEMP 35.9; O2SAT 97
[2025-02-14 14:46] LABS: Partial Thromboplast Time 61.0 Seconds (24.1-36.2)
--- NOTE | 2025-02-14 20:09 | PCM.HOSP.N ---
Hospitalist Note Pt had 36-beat run of VT, wide QRS complex(0.18) and regular. Asymptomatic, w/out CP/pressure/palpitations. Ordered STAT electrolyte level w/mg and phos. Discussed w/. I ordered 2gm mag sulfate IV x1.
[2025-02-14] MEDS: Magnesium Sulfate 2 GM in Dextrose 5%-Water (100mL Bag) 100 ML IV (20:28)
[2025-02-14 21:04] LABS: Magnesium 1.9 mg/dL (1.5-2.2)
[2025-02-14 21:16] LABS: Partial Thromboplast Time 61.4 Seconds (24.1-36.2)
[2025-02-14 21:25] VITALS: BP 128/69; PULSE 72; RESP 18; TEMP 36.3; O2SAT 95
[2025-02-14 21:25] LABS: Anion Gap 12 (5-15); Carbon Dioxide 24.2 mmol/L (21.0-32.0); Chloride 108 mmol/L (98-108); Potassium 3.4 mmol/L (3.3-5.1)
[2025-02-15 03:10] VITALS: BMI 19.4
[2025-02-15 04:11] VITALS: BP 130/64; PULSE 69; RESP 18; TEMP 35.9; O2SAT 94
[2025-02-15 06:18] LABS: Hematocrit 28.3 % (40-54); Hemoglobin 9.3 g/dL (13.0-16.5); Immature Granulocytes Count 0.130 X10^3/uL (0.0-0.0); Mean Corp Hgb Conc 32.9 g/dL (32-36); Mean Corpuscular Volume 81.1 fL (80-94); Mean Platelet Vol. 9.6 fl (6.2-12.0); NRBC Flagged by Analyzer 0 % (0-5); Platelet Count 422 K/mm3 (150-450); RBC Distribution Width CV 16.9 % (11.6-14.6); RBC Distribution Width SD 50.3 fl (35.1-43.9); Red Blood Count 3.49 M/mm3 (4.6-6.2); White Blood Count 8.3 K/mm3 (4.4-11.0)
[2025-02-15 06:51] LABS: Partial Thromboplast Time 67.6 Seconds (24.1-36.2)
[2025-02-15 06:59] LABS: Anion Gap 11 (5-15); BUN 10 mg/dL (4-19); BUN/Creat Ratio 9.3 RATIO (10-20); Calcium,Total 8.5 mg/dL (7.6-11.0); Carbon Dioxide 22.9 mmol/L (21.0-32.0); Chloride 107 mmol/L (98-108); Estimated Creatinine Clearance 41.83 ml/min (50-250); Glucose 102 mg/dL (70-99); Potassium 3.2 mmol/L (3.3-5.1)
[2025-02-15] MEDS: HEPARIN/D5w 25,000 UNITS 25,000 UNITS/250 ML IV.SOLN. 5.9 UNITS CONT INF (07:58)
--- NOTE | 2025-02-15 08:09 | PN.SURG_ITS ---
Subjective Subjective I saw Mr. Alcazar resting comfortably in bed this morning. He reports he has had two normal BMs without any apparent bleeding per rectum or in the stool. His Hgb is stable this morning at 9.3. He has no other complaints. Objective Data Objective Data Vital Signs: Vital Signs Temp Pulse Resp BP Pulse Ox O2 Del Method 96.7 F L 69 18 130/64 H 94 Room Air 02/15/25 04:11 02/15/25 04:11 02/15/25 04:11 02/15/25 04:11 02/15/25 04:11 02/15/25 08:02 Oxygen Delivery Method Room Air Weight: 127 lb 13.89 oz Body Mass Index (BMI) 19.4 Intake & Output: Intake and Output for Last 24 Hours 02/13/25 02/14/25 02/15/25 23:59 23:59 23:59 Intake Total 509.05 / 509.05 2529.31 / 2529.31 64.7 / 64.7 Balance 509.05 / 509.05 2529.31 / 2529.31 64.7 / 64.7 Lab / Micro Data 02/15/25 06:06 02/15/25 06:06 Labs: Laboratory Results - last 24 hr 02/14/25 08:05: APTT 78.7 H 02/14/25 14:13: APTT 61.0 H 02/14/25 20:22: APTT 61.4 H, Sodium 144, Potassium 3.4, Chloride 108, Carbon Dioxide 24.2, Anion Gap 12, Phosphorus 3.1, Magnesium 1.9 02/15/25 06:06: WBC 8.3, RBC 3.49 L, Hgb 9.3 L, Hct 28.3 L, MCV 81.1, MCH 26.6 L , MCHC 32.9, RDW Std Deviation 50.3 H, RDW Coeff of Heriberto 16.9 H, Plt Count 422, MPV 9.6, Immature Gran % (Auto) 1.600 H, Neut % (Auto) 61.3, Lymph % (Auto) 14.2 L, [place] % (Auto) 11.8 H, Eos % (Auto) 10.1 H, Baso % (Auto) 1.0, Absolute Neuts (auto) 5.1, Absolute Lymphs (auto) 1.18, Nucleated RBC % 0, APTT 67.6 H, Sodium 141, Potassium 3.2 L, Chloride 107, Carbon Dioxide 22.9, Anion Gap 11, BUN 10, Creatinine 1.04, Estim Creat Clear Calc 41.83 L, Est GFR (MDRD) Non-Af 70, B UN/Creatinine Ratio 9.3 L, Glucose 102 H, Calcium 8.5 Radiography Diagnostic Testing: Radiology Impression Echocardiogram 02/13/25 18:09 Interpretation Summary Normal LV size. Left ventricular systolic function is normal. The left ventricular ejection fraction is 70 %. Mild focal aortic valve calcification. Mild aortic stenosis. Mean aortic valve gradient 9 mmHg. Ordering Physician: Johana Rhodes Referring Physician: J Luis Mcgill Chi Performed By: Sherrell Castaneda RDCS Rhythm Strip Rhythm Strip: Sinus Rhythm Rate: 70 Ectopy: PVC(s) Physical Exam Const alert, oriented x3 and no apparent distress General Appearance: cooperative and comfortable HEENT normocephalic, head/scalp atraumatic, hearing grossly normal bilaterally, external ears normal and external nose normal Eyes General Eye: normal appearance of both eyes Neck General: normal visual inspection Resp normal respiratory effort, no retractions and no use of accessory muscles Effort and Inspection: able to speak in complete sentences; Negative for labored, grunting, stridor or audible wheezes Cardio regular rate and regular rhythm Skin no rashes or lesions noted Neuro oriented x3, moves all extremities and no focal motor deficits Speech: speech normal Psych mental status grossly normal Appearance: grossly normal Attitude: calm and engaged Activity / Motor Behavior: appropriate eye contact Speech: normal speech Assessment & Plan Assessment/Plan (1) Acute deep vein thrombosis (DVT) of right lower extremity: (2) Bilateral pulmonary embolism: (3) H/O lower gastrointestinal bleeding: PLAN: Plan His Hgb has remained stable and he has remained without any signs of adverse bleeding while on therapeutic heparin drip. Given stability, no current indication for IVC filter. OK to transition to Eliquis 5mg BID for anticoagulation. We are also following him s/p carotid stent with some in-stent restenosis so do want to continue antiplatelet agent, but will reduce the dose; plan for dipyridamole 100mg BID as tolerated. Will plan for outpatient follow- up. OK for d/c from vascular surgical perspective when otherwise medically appropriate, planning as per primary team. Charges/Coding Visit Charges Inpatient E&M: 52393 Subs Hosp L1
--- NOTE | 2025-02-15 08:22 | CASEMGMT ---
RUBA CM NOTE: Call placed to Dr Brito's office. They verified appt for this AM has already been cancelled. Yanni MONTOYA RN CM
[2025-02-15 09:25] VITALS: BP 139/69; PULSE 82; RESP 20; TEMP 36.7; O2SAT 93
[2025-02-15] MEDS: Potassium Chloride Oral Tablet 20 MEQ 40 MEQ PO (09:31)
[2025-02-15] MEDS: APIXABAN 5 MG TABLET 10 MG PO (09:33)
[2025-02-15 09:34] VITALS: BP 139/69; PULSE 82
[2025-02-15] MEDS: Metoprolol(XL)Succ 25 MG Tablet PO (09:34)
[2025-02-15 11:48] VITALS: BP 139/69; PULSE 82; RESP 20; TEMP 36.7; O2SAT 93
--- NOTE | 2025-02-15 12:18 | DCINST_ITS ---
Discharge Instructions DC O2, CPAP, BIPAP needs Home O2 Discharge instructions: No Dressing / Incision Discharge Activity: Return to Normal Activity Weight Bearing Status: Weight bearing as tolerated Dressing / Incision Call your doctor if you observe: Fever of 101 or Higher, Shortness of breath, Dizziness, Swelling in the ankles and Chest pain Follow Up Care Test Results: Test results from this visit will be discussed in further detail at your follow- up appointment, if applicable. Discharge Plan Admission Admit Date/Time: 02/13/25 16:35 Primary Reason for Your Visit: DVT, PE Attending Provider: Laurita Paul Primary Care Provider: J Luis Mcgill Chi Consulting Providers: Kelton Blakely; Johana Rhodes Instructions Patient Instructions: DVT/PE Discharge instruction sheet Discharge Orders/Prescriptions Prescriptions: New Laure DVT-PE Treat 30D Start 5 mg (74 tabs) tablets,dose pack 5 mg PO BID Qty: 74 2RF Rx Instructions: Take 2 tablets (10mg) twice daily for 7 days, then continue with one tablet (5mg) twice daily Continued acetaminophen [Tylenol] 325 mg capsule 325 mg PO TID PRN (Reason: fever or pain) mirtazapine 7.5 mg tablet 7.5 mg PO QHS nitroglycerin 0.4 mg tablet, sublingual 0.4 mg sublingual Q5M PRN (Reason: chest pain) Rx Instructions: do not exceed 3 doses per episode atorvastatin 40 mg tablet 40 mg PO QHS montelukast [Singulair] 10 MG tablet 10 mg PO DAILY Patient Comments: lungs polysaccharide iron complex 150 mg iron capsule 150 mg PO QODAY albuterol sulfate 2.5 mg /3 mL (0.083 %) solution for nebulization 2.5 mg inhalation Q4H PRN (Reason: shortness of breath or wheezing) metoprolol succinate 25 mg Tablet Extended Release 24 Hr 25 mg PO DAILY 30 Days Qty: 30 0RF losartan 100 mg Tablet 100 mg PO DAILY 30 Days Qty: 30 0RF amlodipine 10 mg tablet 10 mg PO QDAY Qty: 90 3RF isosorbide mononitrate 30 mg tablet extended release 24 hr 30 mg PO QAM Qty: 30 3RF dipyridamole 50 mg tablet 100 mg PO BID 30 Days Qty: 120 2RF Rx Instructions: administer 1 hour before or 2 hours after food or meals Referrals / Follow Up: Kelton Blakely MD [Med Staff - Active Staff, Vascular Surgery] - Within 2 Weeks J Luis Mcgill Chi, MD [Primary Care Provider, Geriatrics] - Within 1 Week Disposition Disposition (needs filled in before D/C Order can be placed): Home, Self Care
--- NOTE | 2025-02-15 12:19 | PCM.DC.SUM ---
Providers Date of Admission: 02/13/25 Date of Discharge: 02/15/25 Primary Care Physician: Dr. J Luis Mcgill MD Consultations 02/13/25 18:09 Consult: Vascular Surgery Routine Consulting Provider: Kelton Blakely Reason for Consult: BL PE, DVT EMERGENT Consult: No MD Notified: Yes Date Notified: 02/13/25 Time Notified: 16:40 Method of Notification: ED Physician Initiated Reason For Visit: BL PE Diagnosis Discharge Diagnosis (1) Acute deep vein thrombosis (DVT) of right lower extremity: Status: Acute Code(s): I82.401 - Acute embolism and thrombosis of unspecified deep veins of right lower extremity (2) Bilateral pulmonary embolism: Status: Acute Code(s): I26.99 - Other pulmonary embolism without acute cor pulmonale (3) H/O lower gastrointestinal bleeding: Status: Acute Code(s): Z87.19 - Personal history of other diseases of the digestive system Plan #Bilateral pulmonary embolism likely precipitated by his colon cancef for which he recently had hemicolectomy. on heparin drip. Duplex showed acute DVT in the right common femoral vein, posterior tibial vein and peroneal vein. during his recent hemicolectomy, he had GI bleed requiring PRBC transfusion. vascular surgery consulted for evaluation for IVC filter. Per vascular surgery, if he tolerates heparin without signs of bleeding, then to transition to a direct oral anticoagulant. If he has further bleeding, then he will need to tranition to IVC filter. To keep NPO past midnight today just in case of an IVC filter insertino tomorrow. 2D echo ordered and is pending. #Colon cancer was recently diagnosed with colon cancer and is s/p right hemicolectomy. was just discharged on 01/27/2025. pathology showed an adenocarcinoma to follow up with general surgery and oncology on outpatient basis #Hypertension: on metoprolol and losartan as well as amlodipine. #Hyperlipidemia: on statin #BPH with risk of obstruction: on flomax. #Peripheral artery disease s/p left sided carotid stent. had a recent CTA per vascular surgery which showed evidence of PE. high intensity statin. #history of asthma: not in exacerbation. Breathing treatment with bronchodilators. #Hypertension: on metoprolol, losartan and imdur. IV hydralazine prn. DVT prophylaxis: on heparin drip. Medications at Discharge Home Medications montelukast 10 mg tablet (Singulair) 10 mg PO DAILY LUNGS 05/02/14 acetaminophen 325 mg capsule (Tylenol) 325 mg PO TID PRN fever or pain 11/20/21 mirtazapine 7.5 mg tablet 7.5 mg PO QHS RLS 04/11/24 atorvastatin 40 mg tablet 40 mg PO QHS CHOLESTEROL 06/03/24 nitroglycerin 0.4 mg sublingual tablet 0.4 mg sublingual Q5M PRN chest pain 06/03/24 amlodipine 10 mg tablet 10 mg PO QDAY BP #90 tabs 06/13/24 isosorbide mononitrate 30 mg tablet,extended release 24 hr 30 mg PO QAM HEART #30 tabs 10/18/24 polysaccharide iron complex 150 mg iron capsule 150 mg PO QODAY IRON 01/10/25 albuterol sulfate 2.5 mg/3 mL (0.083 %) solution for nebulization 2.5 mg inhalation Q4H PRN shortness of breath or wheezing 01/20/25 losartan 100 mg tablet 100 mg PO DAILY BP 30 days #30 tabs 02/06/25 metoprolol succinate 25 mg tablet,extended release 24 hr 25 mg PO DAILY Heart 30 days #30 tabs 02/06/25 apixaban 5 mg (74 tabs) tablets in a dose pack ([employer] DVT-PE Treat 30D Start) 5 mg PO BID 30 days #60 tabs 02/15/25 dipyridamole 50 mg tablet 100 mg (2 x 50 mg) PO BID 30 days #120 tabs 02/15/25 Hospital Course Operations None Procedures 2-D Echocardiogram Summary of Care Provided Minutes Spent on Discharge: 45 Hospital Course: Patient is an 84-year-old male with past medical history as outlined including recent diagnosis of colon cancer s/p right hemicolectomy with anastomotic placement with that hospital stay complicated by lower GI bleed requiring PRBC transfusion. He was admitted to the ED on 02/13/2025 on account of recently getting a CT of the head and neck per his vascular surgeon to follow-up with a recent carotid stent and it was incidentally noted that he had pulmonary embolism so he was referred to the ED. In the ED he was saturating 98% on room air. CT of the chest showed scattered bilateral pulmonary emboli. EKG showed no acute ST changes. Creatinine was elevated at 1.84. He was admitted and managed for acute bilateral PE and CHELI on CKD. He was started on heparin drip and vascular surgery recommended that he be placed on the heparin drip and if he did not bleed that he can be transition to oral anticoagulant. However if he did bleed then he will need an IVC filter. He was placed on the heparin drip. 2D echo done showed normal left ventricular size and systolic function with EF of 70% and mild aortic stenosis. Patient did not have any bleeding because on the heparin drip. Duplex of the lower extremity done showed evidence of a DVT in the right lower extremity in the right common femoral vein, posterior tibial vein and peroneal vein. He was put on Eliquis and tolerated well. He was therefore discharged on therapeutic Eliquis and is follow-up withhis primary care doctor and vascular surgery as well as oncologist within 1 to 2 weeks. Patient seen and examined prior to discharge. He had no active complaints and had an uneventful night. Review of systems otherwise negative. Labs and vitals reviewed. Home medication reviewed and reconciled. Physical Exam Const alert, oriented x3 and no apparent distress General Appearance: cooperative and comfortable HEENT normocephalic, head/scalp atraumatic, hearing grossly normal bilaterally, moist oral mucous membranes and oropharynx normal Mouth: oral and palatal mucosa normal Neck supple and no JVD Lymph Lymphatic: no lymphedema noted Resp normal respiratory effort, normal air movement and clear to auscultation bilaterally Cardio regular rate, regular rhythm, S1 normal heart sound, S2 normal heart sound and no murmurs GI normal to inspection, nondistended, normoactive bowel sounds and soft to palpation Extremity normal to inspection, full ROM, normal capillary refill, no clubbing, cyanosis or edema and no calf tenderness General Extremity: no tenderness to palpation of joints or extremities Skin no rashes or lesions noted General Skin Exam: no breakdown Neuro oriented x3, moves all extremities and no focal motor deficits Sensorium / Orientation: awake and alert Motor Exam: strength 5/5 throughout and general weakness Psych thought process normal and cooperative Appearance: appropriate Weight / BMI Weight Weight: 127 lb 13.89 oz Body Mass Index (BMI) 19.4 ABG / Lab / Microbiology Data 02/15/25 06:06 02/15/25 06:06 Laboratory: Laboratory Results - last 24 hr 02/14/25 14:13: APTT 61.0 H 02/14/25 20:22: APTT 61.4 H, Sodium 144, Potassium 3.4, Chloride 108, Carbon Dioxide 24.2, Anion Gap 12, Phosphorus 3.1, Magnesium 1.9 02/15/25 06:06: WBC 8.3, RBC 3.49 L, Hgb 9.3 L, Hct 28.3 L, MCV 81.1, MCH 26.6 L, MCHC 32.9, RDW Std Deviation 50.3 H, RDW Coeff of Heriberto 16.9 H, Plt Count 422, MPV 9.6, Immature Gran % (Auto) 1.600 H, Neut % (Auto) 61.3, Lymph % (Auto) 14.2 L, [place] % (Auto) 11.8 H, Eos % (Auto) 10.1 H, Baso % (Auto) 1.0, Absolute Neuts (auto) 5.1, Absolute Lymphs (auto) 1.18, Nucleated RBC % 0, APTT 67.6 H, Sodium 141, Potassium 3.2 L, Chloride 107, Carbon Dioxide 22.9, Anion Gap 11, BUN 10, Creatinine 1.04, Estim Creat Clear Calc 41.83 L, Est GFR (MDRD) Non-Af 70, BUN/Creatinine Ratio 9.3 L, Glucose 102 H, Calcium 8.5 Radiography Diagnostic Testing: Radiology Impression Echocardiogram 02/13/25 18:09 Interpretation Summary Normal LV size. Left ventricular systolic function is normal. The left ventricular ejection fraction is 70 %. Mild focal aortic valve calcification. Mild aortic stenosis. Mean aortic valve gradient 9 mmHg. Ordering Physician: Johana Rhodes Referring Physician: J Luis Mcgill Chi Performed By: Sherrell Castaneda RDCS D/C Instructions Discharge Activity: Return to Normal Activity Weight Bearing Status: Weight bearing as tolerated Call your doctor if you observe: Fever of 101 or Higher, Shortness of breath, Dizziness, Swelling in the ankles and Chest pain DC O2, CPAP, BIPAP Needs Home O2 Discharge instructions: No DC home with Oxygen: No Meaningful Use Info Meaningful Use Meaningful Use Diagnoses (Choose all that apply): VTE VTE Anticoag overlap given w/in hospital stay or rx'd at dc?: Yes Pt receive overlap for 5 days?: No Reason overlap not ordered, prescribed, or given for 5 days: Treatment Not Indicated Discharge Plan Admission Admit Date/Time: 02/13/25 16:35 Primary Reason for Your Visit: DVT, PE Attending Provider: Laurita Paul Primary Care Provider: J Luis Mcgill Chi Consulting Providers: Kelton Blakely; Johana Rhodes Instructions Patient Instructions: DVT/PE Discharge instruction sheet Discharge Orders/Prescriptions Prescriptions: New Eliquis DVT-PE Treat 30D Start 5 mg (74 tabs) tablets,dose pack 5 mg PO BID 30 Days Qty: 60 0RF Rx Instructions: take 2 tablets (10mg) twice daily for 7 days, then continue with 1 tablet (5mg) twice daily. Continued acetaminophen [Tylenol] 325 mg capsule 325 mg PO TID PRN (Reason: fever or pain) mirtazapine 7.5 mg tablet 7.5 mg PO QHS nitroglycerin 0.4 mg tablet, sublingual 0.4 mg sublingual Q5M PRN (Reason: chest pain) Rx Instructions: do not exceed 3 doses per episode atorvastatin 40 mg tablet 40 mg PO QHS montelukast [Singulair] 10 MG tablet 10 mg PO DAILY Patient Comments: lungs polysaccharide iron complex 150 mg iron capsule 150 mg PO QODAY albuterol sulfate 2.5 mg /3 mL (0.083 %) solution for nebulization 2.5 mg inhalation Q4H PRN (Reason: shortness of breath or wheezing) metoprolol succinate 25 mg Tablet Extended Release 24 Hr 25 mg PO DAILY 30 Days Qty: 30 0RF losartan 100 mg Tablet 100 mg PO DAILY 30 Days Qty: 30 0RF amlodipine 10 mg tablet 10 mg PO QDAY Qty: 90 3RF isosorbide mononitrate 30 mg tablet extended release 24 hr 30 mg PO QAM Qty: 30 3RF dipyridamole 50 mg tablet 100 mg PO BID 30 Days Qty: 120 2RF Rx Instructions: administer 1 hour before or 2 hours after food or meals Referrals / Follow Up: Kelton Blakely MD [Med Staff - Active Staff, Vascular Surgery] - Within 2 Weeks J Luis Mcgill Chi, MD [Primary Care Provider, Geriatrics] - Within 1 Week Disposition Disposition (needs filled in before D/C Order can be placed): Home, Self Care Charges/Coding Visit Charges Inpatient E&M: 90559 Disch Hosp >30min
[2025-02-15 12:37] VITALS: BP 122/63; PULSE 71; RESP 18; TEMP 36.7; O2SAT 96
--- NOTE | 2025-02-15 14:17 | CASEMGMT ---
RN CM NOTE: Rx for Eliquis starter pack has been e-scribed to [facility]. Call to [facility]. Cost for pt after being billed through insurance is $165.75. Provided w/30-day free trial offer card. Cost for pt is now $0. Pt made aware of original cost and that free trial-offer card applied and is now $0. Pt made aware this is a [id number]-lifetime use card. He states refills will be affordable for him. Pt made aware to f/u with PCP or Dr Blakely for refills. He voices understanding. Yanni MONTOYA RN CM
[2025-02-15 14:19] VITALS: O2SAT 92; O2SAT 94
== END 2025-02-15 15:18 | disposition home or self-care (01) | DRG 176 ==
LOC: ED 14:49 → PCU 16:46
PROVIDERS: Admitting Provider Family Medicine; Emergency Provider Emergency Medicine; PCP Family Medicine Geriatric Medicine; Visit Provider Student in an Organized Health Care Education/Training Program
DX: I26.99 Other pulmonary embolism without acute cor pulmonale (principal); I47.20 Ventricular tachycardia, unspecified; N17.9 Acute kidney failure, unspecified; C18.9 Malignant neoplasm of colon, unspecified; I82.411 Acute embolism and thrombosis of right femoral vein; T82.855A Stenosis of coronary artery stent, initial encounter; I82.441 Acute embolism and thrombosis of right tibial vein; I82.451 Acute embolism and thrombosis of right peroneal vein; I12.9 Hypertensive chronic kidney disease with stage 1 through stage 4 chronic kidney disease, or unspecified chronic kidney disease; I73.9 Peripheral vascular disease, unspecified; I35.0 Nonrheumatic aortic (valve) stenosis; J45.909 Unspecified asthma, uncomplicated; E78.00 Pure hypercholesterolemia, unspecified; Z79.51 Long term (current) use of inhaled steroids; Z79.899 Other long term (current) drug therapy; X58.XXXA Exposure to other specified factors, initial encounter
CPT/HCPCS: 36415; 70496; 70498; 71275; 74019; 80048; 80051; 80053; 83735; 83880; 84100; 84484; 85025; 85610; 85730; 93005; 93306; 93970; 97161; 97166; 97802; 99285; Q9967; A4216

== ENCOUNTER → 2025-02-13 | Outpatient (CLI) | payer MEDICARE, SELFPAY ==
--- NOTE | 2025-02-13 12:17 | CT_ITS ---
PROCEDURE: CTA HEAD AND NECK W/ CONTRAST 02/13/2025 REASON FOR EXAM: S/P L CAROTID STENT, RENARROWING ON DUPLEX TECHNIQUE: Procedure Code: [id number] Modality: CT Procedure: CTA HEAD AND NECK W/ CONTRAST Multidetector CT angiography of the head and neck with intravenous contrast was performed with multiplaner and maximum intensity projection (MIP) reconstructions. CONTRAST: Isovue 370 VOLUME: 100 mL One or more dose reduction techniques were used (e.g., Automated exposure control, adjustment of the mA and/or kV according to patient size, use of iterative reconstruction technique). RADIATION DOSE SUMMARY: DLP: 1465 mGycm COMPARISON: CTA head/neck 05/23/2024 FINDINGS: CTA NECK: The origins of the vessels arising from the aortic arch are patent without high- grade stenosis. Right carotid artery: The right common carotid artery is patent without high- grade stenosis. The right cervical internal carotid artery is patent without hemodynamically significant stenosis. Left carotid artery: The left common carotid artery is patent without high-grade stenosis. Patent left cervical internal carotid artery stent from its origin to the level of C2-C3. There is approximately 50% stenosis at the mid stent. The remainder of the stent is without significant stenosis. There is calcified atherosclerotic plaque at the proximal external carotid artery. Cervical vertebral arteries: The cervical vertebral arteries are patent without high-grade stenosis. Assessment for carotid stenosis is performed utilizing NASCET criteria. NASCET carotid stenosis criteria: 0% - none, 1-49% - mild, 50-69% - moderate, 70-89% - severe, 90-99% - critical. % ICA stenosis = (normal distal cervical ICA diameter - narrowest cervical ICA diameter / normal distal cervical ICA diameter) x 100. CTA Head: Atherosclerotic calcification of the cavernous carotid arteries. The petrous, cavernous, and intracranial internal carotid arteries are otherwise patent without high-grade stenosis. The proximal anterior cerebral arteries are patent without high-grade stenosis. The proximal middle cerebral arteries are patent without high-grade stenosis. The intradural vertebral arteries are patent without high-grade stenosis. The basilar artery is patent without high-grade stenosis. The proximal posterior cerebral arteries are patent without high-grade stenosis. No dominant intracranial aneurysm or high flow arteriovenous malformation is identified. Ancillary findings: Edentulous. Multilevel cervical spondylosis. CT/CTA Head AND Neck W/ Contrast IMPRESSION: Patent the left cervical internal carotid artery stent with approximately 50% s tenosis at the mid stent presumably secondary to atheromatous plaque. Compared to CTA head/neck dated 05/23/2024, there has bee n reopening of the proximal left cervical internal carotid artery. Reading Location: [id number]
[2025-02-13 12:24] LABS: Hematocrit 34.0 % (40-54); Hemoglobin 10.8 g/dL (13.0-16.5); Immature Granulocytes Count 0.210 X10^3/uL (0.0-0.0); Mean Corp Hgb Conc 31.8 g/dL (32-36); Mean Corpuscular Volume 83.1 fL (80-94); Mean Platelet Vol. 9.9 fl (6.2-12.0); NRBC Flagged by Analyzer 0 % (0-5); POSITIVE DIFFERENTIAL YES; Platelet Count 465 K/mm3 (150-450); RBC Distribution Width CV 17.2 % (11.6-14.6); RBC Distribution Width SD 52.5 fl (35.1-43.9); Red Blood Count 4.09 M/mm3 (4.6-6.2); White Blood Count 14.7 K/mm3 (4.4-11.0)
[2025-02-13 12:26] LABS: Differential Indicated SCAN CRITERIA MET
--- NOTE | 2025-02-13 12:40 | RAD_ITS ---
EXAM: XR Abdomen, 2 Views CLINICAL INDICATION: APPETITE LOSS TECHNIQUE: Frontal view of the abdomen/pelvis with upright view of the abdomen. COMPARISON: No relevant prior studies available. FINDINGS: INTRAPERITONEAL SPACE: No free air. GASTROINTESTINAL TRACT: Fecal retention in the colon consistent with constipation. No dilation. BONES/JOINTS: Unremarkable. No acute fracture. RAD/Abd Inc Decub and/or Erect IMPRESSION: Fecal retention in the colon consistent with constipation. Reading Location: [id number]
[2025-02-13 12:58] LABS: Differential Comment SCANNED
== END | disposition home or self-care (01) ==
PROVIDERS: PCP Family Medicine Geriatric Medicine; Referring Provider Physician Assistant; Visit Provider Physician Assistant
DX: R63.0 Anorexia (principal); I65.22 Occlusion and stenosis of left carotid artery
CPT/HCPCS: 36415; 70496; 70498; 74019; 85025; Q9967; A4216

== ENCOUNTER → 2025-02-20 | Outpatient (CLI) | payer MEDICARE, SELFPAY ==
[2025-02-20 16:16] LABS: Hematocrit 34.9 % (40-54); Hemoglobin 11.1 g/dL (13.0-16.5); Immature Granulocytes Count 0.210 X10^3/uL (0.0-0.0); Mean Corp Hgb Conc 31.8 g/dL (32-36); Mean Corpuscular Volume 82.9 fL (80-94); Mean Platelet Vol. 9.7 fl (6.2-12.0); NRBC Flagged by Analyzer 0 % (0-5); Platelet Count 583 K/mm3 (150-450); RBC Distribution Width CV 16.7 % (11.6-14.6); RBC Distribution Width SD 49.8 fl (35.1-43.9); Red Blood Count 4.21 M/mm3 (4.6-6.2); White Blood Count 10.2 K/mm3 (4.4-11.0)
[2025-02-20 17:37] LABS: AST(SGOT) 23 U/L (<=37); Alanine Aminotransfer ALT/SGPT 11 U/L (<=46); Albumin, Serum 3.8 g/dL (3.4-4.8); Alkaline Phosphatase 146 U/L (40-129); Anion Gap 17 (5-15); BUN 8 mg/dL (4-19); BUN/Creat Ratio 6.0 RATIO (10-20); Calcium,Total 9.2 mg/dL (7.6-11.0); Carbon Dioxide 22.5 mmol/L (21.0-32.0); Chloride 105 mmol/L (98-108); Globulin 2.9 g/dL (2.2-4.2); Glucose 181 mg/dL (70-99); Potassium 3.7 mmol/L (3.3-5.1)
[2025-02-20 23:57] LABS: Xtra Tube Kwok EXTRA TUBE
== END | disposition home or self-care (01) ==
LOC: POLAB3 15:56
PROVIDERS: PCP Family Medicine Geriatric Medicine; Visit Provider Family Medicine Geriatric Medicine
DX: I10 Essential (primary) hypertension (principal); E03.9 Hypothyroidism, unspecified
CPT/HCPCS: 36415; 80053; 84443; 85025

== ENCOUNTER → 2025-02-27 | Outpatient (CLI) | payer MEDICARE, SELFPAY ==
[2025-02-27 11:35] LABS: Hematocrit 34.0 % (40-54); Hemoglobin 10.7 g/dL (13.0-16.5); Immature Granulocytes Count 0.130 X10^3/uL (0.0-0.0); Mean Corp Hgb Conc 31.5 g/dL (32-36); Mean Corpuscular Volume 85.2 fL (80-94); Mean Platelet Vol. 9.5 fl (6.2-12.0); NRBC Flagged by Analyzer 0 % (0-5); Platelet Count 437 K/mm3 (150-450); RBC Distribution Width CV 17.4 % (11.6-14.6); RBC Distribution Width SD 53.1 fl (35.1-43.9); Red Blood Count 3.99 M/mm3 (4.6-6.2); White Blood Count 10.3 K/mm3 (4.4-11.0)
[2025-02-27 12:26] LABS: AST(SGOT) 21 U/L (<=37); Alanine Aminotransfer ALT/SGPT 8 U/L (<=46); Albumin, Serum 3.7 g/dL (3.4-4.8); Alkaline Phosphatase 128 U/L (40-129); Anion Gap 12 (5-15); BUN 11 mg/dL (4-19); BUN/Creat Ratio 9.2 RATIO (10-20); Calcium,Total 8.9 mg/dL (7.6-11.0); Carbon Dioxide 24.1 mmol/L (21.0-32.0); Chloride 108 mmol/L (98-108); Globulin 2.5 g/dL (2.2-4.2); Glucose 120 mg/dL (70-99); Potassium 3.7 mmol/L (3.3-5.1)
[2025-02-27 19:21] LABS: Xtra Tube Kwok EXTRA TUBE
== END | disposition home or self-care (01) ==
LOC: POLAB3 11:19
PROVIDERS: PCP Family Medicine Geriatric Medicine; Visit Provider Family Medicine Geriatric Medicine
DX: D50.9 Iron deficiency anemia, unspecified (principal); E78.5 Hyperlipidemia, unspecified; E03.9 Hypothyroidism, unspecified; I10 Essential (primary) hypertension; I25.10 Atherosclerotic heart disease of native coronary artery without angina pectoris
CPT/HCPCS: 36415; 80053; 84443; 85025